=== PATIENT | male | born 1965 | race Caucasian/White ===

== ENCOUNTER 2021-06-25 17:48 | Emergency (ER) | payer MEDICARE, SELFPAY ==
--- NOTE | ~2021-06-25 | XR_ITS ---
EXAMINATION: XR CHEST CLINICAL INFORMATION: Chest pain and shortness of breath COMPARISON: None TECHNIQUE: Frontal view of the chest was obtained. FINDINGS: The lungs are well expanded. There is no focal consolidation, edema, or effusion. Bronchial wall thickening is present diffusely. No pneumothorax. The cardiomediastinal silhouette is within normal limits. No acute osseous abnormality. XR/XR chest 1V IMPRESSION: No dense consolidation. Bronchial wall thickening can be seen with a small airways process such as asthma or atypical/viral infection.
--- NOTE | 2021-06-25 18:04 | ECG_ITS ---
Test Reason : DIFFICUTY BREATHNG Blood Pressure : / mmHG Vent. Rate : 058 BPM Atrial Rate : 058 BPM P-R Int : 198 ms QRS Dur : 102 ms QT Int : 478 ms P-R-T Axes : 041 -17 039 degrees QTc Int : 469 ms Sinus bradycardia Otherwise normal ECG No previous ECGs available Referred By: Generic ED Physician Electronically Signed By:CARLOS ENRIQUE LAST
[2021-06-25 18:05] VITALS: BP 147/65; PULSE 59; RESP 16; TEMP 36.8; O2SAT 98; BMI 38.0
[2021-06-25 18:22] LABS: MANUAL DIFF FLAG NO
[2021-06-25 18:23] LABS: Basophils Percent Auto 0.4 % (0-2); Eosinophils Absolute Auto 0.3 X10*3/uL (0.0-0.4); Eosinophils Percent Auto 2.6 % (0-4); Hematocrit 35.1 % (42-52); Hemoglobin 11.6 g/dl (14.0-18.0); Imm Gran Abs Auto 0.05 X10*3/uL (0.00-0.03); Imm Gran Pct Auto 0.5 % (0.0-0.4); Lymphocytes Percent Auto 19.3 % (20-40); Mean Platelet Volume 10.1 fL (9.4-12.4); Monocytes Absolute Auto 0.7 X10*3/uL (0.1-1.2); Monocytes Percent Auto 6.5 % (2-11); Neutrophils Absolute Auto 7.4 X10*3/uL (2.0-8.3); Neutrophils Percent Auto 70.7 % (45-73); Platelet Count 108 X10*3/uL (160-400); Red Blood Count 3.62 X10*6/uL (4.60-5.80); Red Cell Distribution Width 16.5 % (11.0-16.0); White Blood Count 10.4 X10*3/uL (4.8-10.8)
[2021-06-25 18:36] LABS: COVID-19 Test Negative (Negative); IDNOW Serial# 9DD0AD1C
[2021-06-25 18:38] LABS: Anion Gap 13 (12-20); Blood Urea Nitrogen 5 mg/dL (9-16); Calcium 8.7 mg/dL (8.4-10.2); Carbon Dioxide 24 mmol/L (22-29); Chloride 105 mmol/L (96-108); Creatinine Clr Calc Pharmacy 122.9; Estimated Glomerular Filt Rate > 60; Glucose Random 93 mg/dL (60-115); Potassium 3.5 mmol/L (3.3-5.1); Sodium 138 mmol/L (135-145)
[2021-06-25 18:43] LABS: B Type Natriuretic Peptide 467 pg/mL (<100); Troponin-I High Sensitivity < 3.5 ng/L (<3.5-35.0)
== END 2021-06-25 20:00 | disposition left against medical advice (07) ==
PROVIDERS: Emergency Provider Emergency Medicine; PCP Internal Medicine
DX: R06.02 Shortness of breath (principal); Z20.822 Contact with and (suspected) exposure to COVID-19
CPT/HCPCS: 36415; 71045; 80048; 83880; 84484; 85025; 87635; 93005; 99282; 99283

== ENCOUNTER 2021-06-26 12:19 | Emergency (ER) | payer MEDICARE, SELFPAY ==
--- NOTE | ~2021-06-26 | XR_ITS ---
EXAMINATION: XR KNEE, LEFT CLINICAL INFORMATION: Status post fall. Left knee pain. COMPARISON: None TECHNIQUE: Four views of the left knee. FINDINGS: The bony alignments are intact. The cortices are intact. Articular margins, joint space appear normal. No joint effusion. Incidental note is made of Feathery periostitis seen only on the lateral projection projecting in the region of the upper posterior cortex of the likely tibia, of indeterminate etiology. XR/XR knee LT 4V IMPRESSION: 1. No radiographic evidence of acute osseous or articular abnormalities or any joint effusion. 2. Incidental note is made of Feathery periostitis along the posterior cortex of the upper likely left tibia, seen only on the lateral projection, of indeterminate etiology.
--- NOTE | ~2021-06-26 | CT_ITS ---
EXAMINATION: CT ABDOMEN AND PELVIS WITH CONTRAST CLINICAL INFORMATION: Abdominal distention COMPARISON: None TECHNIQUE: Multidetector volumetric images were obtained from the superior aspect of the liver through the pubic symphysis following administration 100 mL of Omnipaque 350 intravenous contrast. Sagittal and coronal reformatted images were obtained on the technologist's workstation. Oral contrast: No This CT examination was performed using dose optimization techniques as appropriate, variously including the following: *Automated exposure control *Adjustment of mA and/or kV according to patient size (this includes techniques or standardized protocols for targeted exams where dose is matched to indication/reason for exam; i.e. extremities or head) *Use of iterative reconstruction technique DLP: 510 mGy-cm FINDINGS: LUNG BASES: The visualized lung bases are unremarkable. LIVER, GALLBLADDER, AND BILIARY TREE: The liver is enlarged measuring 20.7 cm in greatest cephalocaudad dimension. There is associated ascites present in the abdomen and pelvis. No focal liver mass or bile duct dilatation is seen. The gallbladder is unremarkable with no evidence of radiopaque gallstones, gallbladder wall thickening, or obvious pericholecystic inflammatory changes. PANCREAS: Unremarkable. PERITONEUM AND OMENTUM: Small volume ascites is present around the liver and spleen as well as a small amount in the leaves of the mesentery. There are streaky inflammatory changes present in the region of the pipe hepatis and periceliac and SMA regions with thickening and stranding of the anterior pararenal fascia. SPLEEN: There is splenomegaly with spleen measuring 14.5 cm in greatest length. ADRENAL GLANDS: Unremarkable. KIDNEYS AND URETERS: The kidneys are normal in size, shape, and attenuation. No hydronephrosis, hydroureter, or calculi seen. No perinephric stranding. BLADDER: Unremarkable. GASTROINTESTINAL TRACT: Scattered colonic diverticula without diverticulitis. The small and large bowel are otherwise unremarkable. The appendix is unremarkable. ABDOMINAL WALL: No significant hernia is appreciated. LYMPH NODES: No retroperitoneal lymphadenopathy. VASCULAR: Calcific changes present in the aorta and iliac vessels. The portal venous system is patent as is the splenic vein. Large varices are not seen. PELVIC VISCERA: Prostate and seminal vesicles appear normal. OSSEOUS STRUCTURES: Degenerative changes present in the spine most marked in the lower thoracic region and at L5-S1. No bony destructive lesions seen. CT/CT abdomen pelvis w con IMPRESSION: Hepatosplenomegaly with ascites. This is most likely the cause of the patient's abdominal distention. Findings suggest cirrhosis with portal hypertension. Streaky inflammatory changes in the region of the pipe hepatis and periceliac and SMA region without an obvious cause. These could be reactive to the ascites or represent a mesenteric panniculitis. In any event, without adenopathy or a pancreatic mass, this is not a worrisome finding.
--- NOTE | ~2021-06-26 | CT_ITS ---
EXAMINATION: CT ANGIOGRAM OF THE CHEST WITH AND WITHOUT CONTRAST (CT PULMONARY ANGIOGRAM FOR PE) CLINICAL INFORMATION: Reason for Exam sob and abd distention hx of cancer ? pe COMPARISON: None TECHNIQUE: Prior to contrast administration, noncontrast localization images were obtained. Subsequently, multidetector volumetric imaging was performed from the thoracic inlet to below the diaphragms following the administration of 100 mL Omnipaque 350 intravenous contrast. No contrast reaction reported Sagittal, coronal, and MIP oblique sagittal reformatted images were obtained on the CT workstation, uploaded to PACS, and reviewed. This CT examination was performed using dose optimization techniques as appropriate, variously including the following: *Automated exposure control *Adjustment of mA and/or kV according to patient size (this includes techniques or standardized protocols for targeted exams where dose is matched to indication/reason for exam; i.e. extremities or head) *Use of iterative reconstruction technique Total exam dose-length product 510 mGy-cm FINDINGS: QUALITY OF STUDY/CONTRAST BOLUS: Suboptimal. The bolus is adequate, but there is considerable motion artifact present, especially at the lung bases. PULMONARY ARTERIES: No central or large segmental pulmonary emboli. THORACIC AORTA: No aneurysm or dissection. LUNG: No focal consolidation, nodules or masses. Scattered bullous changes are present suggesting some element of underlying COPD. PLEURA: No pleural effusion or pneumothorax. MEDIASTINUM: Normal heart size. No pericardial effusion. No hilar or mediastinal lymphadenopathy. No evidence of septal bowing or right heart strain. CHEST WALL/AXILLA: No axillary or internal mammary lymphadenopathy. OSSEOUS STRUCTURES: No acute or suspicious osseous abnormality. UPPER ABDOMEN: See report of abdominal CT performed same day. The liver appears mildly lobular but is enlarged. Findings at least raises the question of cirrhosis. A small amount of ascites is present around the liver. The spleen is enlarged.. No reflux of contrast into the hepatic veins to suggest elevated right heart pressures. CT/CT angio chest PE protocol IMPRESSION: No evidence of pulmonary emboli Scattered pulmonary bullous changes as described above Abdominal findings see report of abdominal CT same day. VTE: negative, but limited
[2021-06-26 14:19] VITALS: BP 149/74; PULSE 68; RESP 18; TEMP 37; O2SAT 94; BMI 42.5
--- NOTE | 2021-06-26 15:12 | ECG_ITS ---
Test Reason : SOB Blood Pressure : / mmHG Vent. Rate : 054 BPM Atrial Rate : 054 BPM P-R Int : 198 ms QRS Dur : 102 ms QT Int : 512 ms P-R-T Axes : 044 -23 030 degrees QTc Int : 485 ms Sinus bradycardia Prolonged QT Abnormal ECG When compared with ECG of 25-JUN-2021 17:54, No significant change was found Referred By: Gloria Vora Electronically Signed By:CARLOS ENRIQUE LAST
[2021-06-26 15:44] LABS: Basophils Percent Auto 0.5 % (0-2); Eosinophils Absolute Auto 0.1 X10*3/uL (0.0-0.4); Eosinophils Percent Auto 1.6 % (0-4); Hematocrit 36.5 % (42-52); Hemoglobin 11.9 g/dl (14.0-18.0); Imm Gran Abs Auto 0.02 X10*3/uL (0.00-0.03); Imm Gran Pct Auto 0.2 % (0.0-0.4); Lymphocytes Absolute Auto 1.6 X10*3/uL (1.2-4.9); Lymphocytes Percent Auto 19.2 % (20-40); MANUAL DIFF FLAG NO; Mean Corpuscular HGB Conc 32.6 g/dl (31.0-36.0); Mean Corpuscular Hemoglobin 31.8 pg (27.0-33.0); Mean Corpuscular Volume 97.6 fL (80-98); Mean Platelet Volume 9.9 fL (9.4-12.4); Monocytes Absolute Auto 0.6 X10*3/uL (0.1-1.2); Monocytes Percent Auto 6.6 % (2-11); Neutrophils Percent Auto 71.9 % (45-73); Platelet Count 101 X10*3/uL (160-400); Red Blood Count 3.74 X10*6/uL (4.60-5.80); Red Cell Distribution Width 16.9 % (11.0-16.0); White Blood Count 8.4 X10*3/uL (4.8-10.8)
--- NOTE | 2021-06-26 15:49 | ED_ITS ---
HPI - SOB/Dyspnea General Chief Complaint: Dyspnea <GENESIS Earl - Last Filed: 06/26/21 17:48> Stated Complaint: difficulty breathing <GENESIS Earl Last Filed: 06/26/21 17:48> Time Seen by Provider: 06/26/21 14:20 <GEENSIS Earl Last Filed: 06/26/21 17:48> Source: patient <GENESIS Earl Last Filed: 06/26/21 17:48> Mode of arrival: ambulatory <GENESIS Earl - Last Filed: 06/26/21 17:48> Limitations: no limitations <GENESIS Earl Last Filed: 06/26/21 17:48> History of Present Illness HPI Narrative: 56-year-old male with a past medical history of prostate cancer status post radiation finished on January [address] Gael Apple the urologist, hypertension, hyperlipidemia, anxiety, depression, cirrhosis and fatty liver presenting to the ED with complaints of dry cough with shortness of breath with associated dyspnea on exertion orthopnea for the past month progressively worsening. Reports associated weight gain since October 2020 of approximately 25-30 lb. Patient also reports left knee pain reports he fell a f ew days ago in his house due to he missed a step. He denied any other injuries related to this. He denies any dizziness, headaches, change in vision, nausea/vomiting, chest pain, paresthesias, palpitations, abdominal pain, lower extremity edema, calf tenderness, recent travel or sick contacts or any other symptoms complaints or concerns at this time. <GENESIS Earl - Last Filed: 06/26/21 17:48> MD elicited complaint: shortness of breath and cough <GENESIS Earl - Last Filed: 06/26/21 17:48> Pertinent past history: other (Prostate cancer status post radiation January/2021 finished radiation) <GENESIS Earl Last Filed: 06/26/21 17:48> Onset (ago): month(s) (1 month progressively worsening) <GENESIS Earl Last Filed: 06/26/21 17:48> Timing: constant and progressively worsening <GENESIS Earl Last Filed: 06/26/21 17:48> Severity: moderate <GENESIS Earl Last Filed: 06/26/21 17:48> Exacerbating factors: lying flat, exertion and coughing <GENESIS Earl Last Filed: 06/26/21 17:48> Relieving factors: rest and upright position <GENESIS Earl Last Filed: 06/26/21 17:48> Associated symptoms: denies other symptoms <GENESIS Earl Last Filed: 06/26/21 17:48> Treatment prior to arrival: none <GENESIS Earl Last Filed: 06/26/21 17:48> Related Data Home oxygen amount: none <GENESIS Earl Last Filed: 06/26/21 17:48> Allergies/Adverse Reactions: Allergies Allergy/AdvReac Type Severity Reaction Status Date / Time Fish Containing Products Allergy Severe THROAT Unverified 07/02/20 15:04 SWELLING peanut [Peanut] Allergy Severe THROAT Unverified 07/02/20 15:04 SWELLING <GENESIS Earl Last Filed: 06/26/21 17:48> Review of Systems Review of Systems: Constitutional : Positive weight gain of 25-30 lb since October 2020, No Weight loss, No Fever, No Chills, No Night Sweats, No Fatigue, NoMalaise ENT/Mouth : No Hearing loss, No Ear Pain, No Nasal Congestion, No Sinus Pain, No Hoarseness, No sore throat, No Rhinorrhea, No Swallowing Difficulty Eyes: No Eye Pain, No Swelling, No Redness, No Foreign Body, No Discharge, No Vision Changes Cardiovascular : Positive shortness of breath/dyspnea as a slade/orthopnea, No Chest Pain, No Edema, No extremity swelling, No Palpitations Respiratory : Positive Cough, No Sputum, No Wheezing, No Dyspnea Gastrointestinal : No Nausea, No Vomiting, No Diarrhea, No abdominal Pain, No Hematochezia, No Melena Genitourinary : No irregular bleeding, No Dysuria, No Urinary Frequency, No Hematuria,No Urinary Incontinence, No Urgency, No Flank Pain, No Urinary Flow Changes, NoHesitancy Musculoskeletal : Positive left knee joint pain, No Myalgias, No Joint Swelling Skin : No Skin Lesions, No rash Neuro : No Weakness, No Numbness, No Paresthesias, No Loss of Consciousness, NoDizziness, No Headache Psych : No Anxiety/Panic, No Depression, No SI/HI/AH/VH Heme/Lymph: No Bruising, No Bleeding,No Lymphadenopathy Endocrine : No Polyuria, No Polydipsia, No Temperature Intolerance <GENESIS Earl - Last Filed: 06/26/21 17:48> Yes all other systems are reviewed and are negative <GENESIS Earl - Last Filed: 06/26/21 17:48> [facility] Past Medical History Attestation statement: The following information was validated with the patient. <GENESIS Earl - Last Filed: 06/26/21 17:48> Medical History: Medical History Anxiety <GENESIS Earl - Last Filed: 06/26/21 17:48> Social History Social History: Social History Patient Tobacco Use Status: Current everyday Tobacco user Use of substances other than those prescribed or required for medical reasons: No Advance Directives: No Advance Directives Information Provided: No <GENESIS Earl - Last Filed: 06/26/21 17:48> Physical Exam Vital Signs: Vital Signs: Last Vital Signs Temp 98.6 F 06/26/21 14:19 Pulse 74 06/26/21 18:46 Resp 22 H 06/26/21 18:46 BP 142/76 H 06/26/21 18:46 Pulse Ox 94 06/26/21 18:46 Body Mass Index 42.5 vital signs have been reviewed as normal and appeared to be correct. Blood pressure hypertensive 149/74 Heart rate normal. Respiration rate normal. Temperature normal. Oxygen saturation normal. <GENESIS Earl - Last Filed: 06/26/21 17:48> Vital Signs: Last Vital Signs Temp 98.6 F 06/26/21 14:19 Pulse 74 06/26/21 18:46 Resp 22 H 06/26/21 18:46 BP 142/76 H 06/26/21 18:46 Pulse Ox 94 06/26/21 18:46 Body Mass Index 42.5 <MYAH Liu - Last Filed: 06/26/21 22:06> Appearance: Alert. Oriented X3. No acute distress. Head: Normal external exam. Normocephalic. Atraumatic. Eyes: PERRLA. EOMI. Conjunctiva and sclera normal. Eyelids normal. ENT: Pharynx normal. Uvula midline. Moist mucous membranes. No trismus noted. No drooling noted. No muffled voice noted. Neck: Normal inspection. Neck supple. FROM. No adenopathy. Thyroid Normal. No meningeal signs. No neck mass noted. CVS: Normal heart rate and rhythm. Heart sound normal. Pulses normal throughout. No murmurs/rales/gallops. Respiratory: No respiratory distress. Painless inspiration. Breath sounds normal. No wheezes/rales/rhonchi noted. Chest nontender. No accessory muscle usage noted or decreased air movement noted. Abdomen: Soft and nontender. Bowel sounds normal in all 4 quadrants. No distention noted. No organomegaly noted. No visible injury noted. Back: Full range of motion noted. No rashes/lesion/induration/fluctuance or signs of infection noted. Skin: Skin warm and dry. Normal skin color. Normal skin turgor. No rashes/le sions/lacerations noted. Extremities: Patient with tenderness palpation to left knee at the suprapa tellar aspect with ecchymosis noted. No obvious deformities noted. No ligamentous laxity noted. Patient has full range of motion of the left knee. No lower extremity edema. No calf tenderness is noted. Otherwise all other Extremities exhibit normal range of motion and nontender. Neuro: Oriented X 3. No motor deficit. No sensory deficit. Reflexes normal. Normal steady gait. No focal neuro deficits noted. Vascular: + radial pulses/+ 2 distal pedal pulses/+2 dorsalis pedis b/l. Normal cap refill. No cyanosis noted to upper extremity nails and lower extremity toes nails. <GENESIS Earl - Last Filed: 06/26/21 17:48> Course Course Course Narrative: 15:35pm - 56-year-old male with a past medical history of prostate cancer status post radiation finished on January [address] Gael Apple the urologist presenting to the ED with complaints of dry cough with shortness of breath with associated dyspnea on exertion orthopnea for the past month progressively worsening. Reports associated weight gain since October 2020 of approximately 25-30 lb. Also reports left knee pain after he had a mechanical fall at home a few days ago. Plan: Labs including D-dimer if elevated patient will have a CT of chest for PE, patient had an outpatient chest x-ray yesterday which revealed no dense consolidation. Bronchial wall thickening can be seen with small airway process such as asthma or atypical viral infection. Therefore no repeat x-ray indicated at this time. We will obtain a left knee x-ray, EKG then re-evaluate. <GENESIS Earl - Last Filed: 06/26/21 17:48> Reevaluation(s) Reevaluation #1: - labs return patient mild baseline anemia similar compared to prior. - platelet count 101 mildly decreased when compared to prior. - D-dimer elevated at 669. - total bilirubin 2.0. - AST 45. - alkaline phosphate 281. - BNP 440. - albumin 3.4. - otherwise all other labs are within normal limits. - COVID/RSV/flu swab negative. - x-ray of left knee revealed incidental note of Feathery periostitis along the posterior cortex of the upper likely left tibia only seen on lateral projection of indeterminate etiology otherwise no other acute processes were noted. - therefore due to elevated D-dimer will obtain a CT a of chest for PE and a CT scan abdomen pelvis with IV contrast to evaluate the patient's liver due to elevated liver enzymes then re-evaluate. <GENESIS Earl - Last Filed: 06/26/21 17:48> Time: 17:03 <GENESIS Earl - Last Filed: 06/26/21 17:48> Reevaluation #2: - patient apparently eloped per the nurse while he was awaiting CT scan abdomen pelvis with IV contrast and CT of chest for PE. <GENESIS Earl - Last Filed: 06/26/21 17:48> Time: 17:36 <GENESIS Earl - Last Filed: 06/26/21 17:48> Reevaluation #3: Direct bilirubin 1.1, awaiting to go for CT of abdomen and CT of the chest. Kidney functions are normal <MYAH Liu - Last Filed: 06/26/21 22:06> Additional Reevaluation(s): No acute abnormalities on CT scan, chronic changes, mild ascites surrounding the liver, liver cirrhosis. Patient will be sent home, he can take double dose of his diuretic for the next 3 days and call his PCP and his bin operator on Monday he. He is agreeable to this plan. Patient was instructed to stop drinking alcohol as well as not to take Tylenol and avoid any hepatotoxic medication <DINORAH Liu- - Last Filed: 06/26/21 22:06> MDM - SOB/Dyspnea Medical Records Attestation: I reviewed the patient's medical records. <GENESIS Earl - Last Filed: 06/26/21 17:48> Lab Data Attestation: I reviewed the patient's lab results. <GENESIS Earl - Last Filed: 06/26/21 17:48> Result diagrams: : 06/26/21 15:35 06/26/21 15:35 <GENESIS Earl - Last Filed: 06/26/21 17:48> Labs: Lab Results 06/26/21 06/26/21 06/26/21 Range/Units 15:35 15:35 15:35 WBC 8.4 (4.8-10.8) X10*3/uL RBC 3.74 L (4.60-5.80) X10*6/uL Hgb 11.9 L (14.0-18.0) g/dl Hct 36.5 L (42-52) % MCV 97.6 (80-98) fL MCH 31.8 (27.0-33.0) pg MCHC 32.6 (31.0-36.0) g/dl RDW 16.9 H (11.0-16.0) % Plt Count 101 L (160-400) X10*3/uL MPV 9.9 (9.4-12.4) fL Immature Gran % (Auto) 0.2 (0.0-0.4) % Neut % (Auto) 71.9 (45-73) % Lymph % (Auto) 19.2 L (20-40) % Thomas % (Auto) 6.6 (2-11) % Eos % (Auto) 1.6 (0-4) % Baso % (Auto) 0.5 (0-2) % Lymph # (Auto) 1.6 (1.2-4.9) X10*3/uL Thomas # (Auto) 0.6 (0.1-1.2) X10*3/uL Eos # (Auto) 0.1 (0.0-0.4) X10*3/uL Baso # (Auto) 0.0 (0.0-0.2) X10*3/uL Abs Immat Gran (auto) 0.02 (0.00-0.03) X10*3/uL Absolute Neuts (auto) 6.0 (2.0-8.3) X10*3/uL Absolute Nucleated RBC 0.000 (0.0-0.012) X10*3/uL Nucleated RBC % (auto) 0.0 (0.0-0.2) /100WBC PT 13.3 H (9.9-13.0) SEC INR 1.2 H (0.9-1.1) APTT 42.3 H (24.1-38.0) SEC D-Dimer 669 NG/ML Sodium 140 (135-145) mmol/L Potassium 4.0 (3.3-5.1) mmol/L Chloride 106 (96-108) mmol/L Carbon Dioxide 26 (22-29) mmol/L Anion Gap 12 (12-20) BUN 5 L (9-16) mg/dL Creatinine 0.88 (0.5-1.4) mg/dL Estim Creat Clear Calc 121.7 Estimated GFR > 60 Random Glucose 93 (60-115) mg/dL Calcium 8.9 (8.4-10.2) mg/dL Magnesium 2.1 (1.6-2.6) mg/dL Total Bilirubin 2.0 H (0.0-1.0) mg/dL Direct Bilirubin 1.1 H (0.0-0.5) mg/dL AST 45 H (5-37) U/L ALT 12 (0-40) U/L Alkaline Phosphatase 281 H (39-117) U/L Troponin I High Sens (<3.5-35.0) ng/L B-Natriuretic Peptide (<100) pg/mL Total Protein 7.2 (6.5-8.0) g/dL Albumin 3.4 L (3.5-5.0) g/dL Coronavirus (PCR) (Negative) Influenza Type A (PCR) (Negative) Influenza Type B (PCR) (Negative) RSV RNA Qual (PCR) (Negative) 06/26/21 06/26/21 Range/Units 15:35 15:35 WBC (4.8-10.8) X10*3/uL RBC (4.60-5.80) X10*6/uL Hgb (14.0-18.0) g/dl Hct (42-52) % MCV (80-98) fL MCH (27.0-33.0) pg MCHC (31.0-36.0) g/dl RDW (11.0-16.0) % Plt Count (160-400) X10*3/uL MPV (9.4-12.4) fL Immature Gran % (Auto) (0.0-0.4) % Neut % (Auto) (45-73) % Lymph % (Auto) (20-40) % Thomas % (Auto) (2-11) % Eos % (Auto) (0-4) % Baso % (Auto) (0-2) % Lymph # (Auto) (1.2-4.9) X10*3/uL Thomas # (Auto) (0.1-1.2) X10*3/uL Eos # (Auto) (0.0-0.4) X10*3/uL Baso # (Auto) (0.0-0.2) X10*3/uL Abs Immat Gran (auto) (0.00-0.03) X10*3/uL Absolute Neuts (auto) (2.0-8.3) X10*3/uL Absolute Nucleated RBC (0.0-0.012) X10*3/uL Nucleated RBC % (auto) (0.0-0.2) /100WBC PT (9.9-13.0) SEC INR (0.9-1.1) APTT (24.1-38.0) SEC D-Dimer NG/ML Sodium (135-145) mmol/L Potassium (3.3-5.1) mmol/L Chloride (96-108) mmol/L Carbon Dioxide (22-29) mmol/L Anion Gap (12-20) BUN (9-16) mg/dL Creatinine (0.5-1.4) mg/dL Estim Creat Clear Calc Estimated GFR Random Glucose (60-115) mg/dL Calcium (8.4-10.2) mg/dL Magnesium (1.6-2.6) mg/dL Total Bilirubin (0.0-1.0) mg/dL Direct Bilirubin (0.0-0.5) mg/dL AST (5-37) U/L ALT (0-40) U/L Alkaline Phosphatase (39-117) U/L Troponin I High Sens < 3.5 (<3.5-35.0) ng/L B-Natriuretic Peptide 448 H (<100) pg/mL Total Protein (6.5-8.0) g/dL Albumin (3.5-5.0) g/dL Coronavirus (PCR) NEGATIVE (Negative) Influenza Type A (PCR) NEGATIVE (Negative) Influenza Type B (PCR) NEGATIVE (Negative) RSV RNA Qual (PCR) NEGATIVE (Negative) <GENESIS Earl - Last Filed: 06/26/21 17:48> Lab Results 06/26/21 06/26/21 06/26/21 Range/Units 15:35 15:35 15:35 WBC 8.4 (4.8-10.8) X10*3/uL RBC 3.74 L (4.60-5.80) X10*6/uL Hgb 11.9 L (14.0-18.0) g/dl Hct 36.5 L (42-52) % MCV 97.6 (80-98) fL MCH 31.8 (27.0-33.0) pg MCHC 32.6 (31.0-36.0) g/dl RDW 16.9 H (11.0-16.0) % Plt Count 101 L (160-400) X10*3/uL MPV 9.9 (9.4-12.4) fL Immature Gran % (Auto) 0.2 (0.0-0.4) % Neut % (Auto) 71.9 (45-73) % Lymph % (Auto) 19.2 L (20-40) % Thomas % (Auto) 6.6 (2-11) % Eos % (Auto) 1.6 (0-4) % Baso % (Auto) 0.5 (0-2) % Lymph # (Auto) 1.6 (1.2-4.9) X10*3/uL Thomas # (Auto) 0.6 (0.1-1.2) X10*3/uL Eos # (Auto) 0.1 (0.0-0.4) X10*3/uL Baso # (Auto) 0.0 (0.0-0.2) X10*3/uL Abs Immat Gran (auto) 0.02 (0.00-0.03) X10*3/uL Absolute Neuts (auto) 6.0 (2.0-8.3) X10*3/uL Absolute Nucleated RBC 0.000 (0.0-0.012) X10*3/uL Nucleated RBC % (auto) 0.0 (0.0-0.2) /100WBC PT 13.3 H (9.9-13.0) SEC INR 1.2 H (0.9-1.1) APTT 42.3 H (24.1-38.0) SEC D-Dimer 669 NG/ML Sodium 140 (135-145) mmol/L Potassium 4.0 (3.3-5.1) mmol/L Chloride 106 (96-108) mmol/L Carbon Dioxide 26 (22-29) mmol/L Anion Gap 12 (12-20) BUN 5 L (9-16) mg/dL Creatinine 0.88 (0.5-1.4) mg/dL Estim Creat Clear Calc 121.7 Estimated GFR > 60 Random Glucose 93 (60-115) mg/dL Calcium 8.9 (8.4-10.2) mg/dL Magnesium 2.1 (1.6-2.6) mg/dL Total Bilirubin 2.0 H (0.0-1.0) mg/dL Direct Bilirubin 1.1 H (0.0-0.5) mg/dL AST 45 H (5-37) U/L ALT 12 (0-40) U/L Alkaline Phosphatase 281 H (39-117) U/L Troponin I High Sens (<3.5-35.0) ng/L B-Natriuretic Peptide (<100) pg/mL Total Protein 7.2 (6.5-8.0) g/dL Albumin 3.4 L (3.5-5.0) g/dL Coronavirus (PCR) (Negative) Influenza Type A (PCR) (Negative) Influenza Type B (PCR) (Negative) RSV RNA Qual (PCR) (Negative) 06/26/21 06/26/21 Range/Units 15:35 15:35 WBC (4.8-10.8) X10*3/uL RBC (4.60-5.80) X10*6/uL Hgb (14.0-18.0) g/dl Hct (42-52) % MCV (80-98) fL MCH (27.0-33.0) pg MCHC (31.0-36.0) g/dl RDW (11.0-16.0) % Plt Count (160-400) X10*3/uL MPV (9.4-12.4) fL Immature Gran % (Auto) (0.0-0.4) % Neut % (Auto) (45-73) % Lymph % (Auto) (20-40) % Thomas % (Auto) (2-11) % Eos % (Auto) (0-4) % Baso % (Auto) (0-2) % Lymph # (Auto) (1.2-4.9) X10*3/uL Thomas # (Auto) (0.1-1.2) X10*3/uL Eos # (Auto) (0.0-0.4) X10*3/uL Baso # (Auto) (0.0-0.2) X10*3/uL Abs Immat Gran (auto) (0.00-0.03) X10*3/uL Absolute Neuts (auto) (2.0-8.3) X10*3/uL Absolute Nucleated RBC (0.0-0.012) X10*3/uL Nucleated RBC % (auto) (0.0-0.2) /100WBC PT (9.9-13.0) SEC INR (0.9-1.1) APTT (24.1-38.0) SEC D-Dimer NG/ML Sodium (135-145) mmol/L Potassium (3.3-5.1) mmol/L Chloride (96-108) mmol/L Carbon Dioxide (22-29) mmol/L Anion Gap (12-20) BUN (9-16) mg/dL Creatinine (0.5-1.4) mg/dL Estim Creat Clear Calc Estimated GFR Random Glucose (60-115) mg/dL Calcium (8.4-10.2) mg/dL Magnesium (1.6-2.6) mg/dL Total Bilirubin (0.0-1.0) mg/dL Direct Bilirubin (0.0-0.5) mg/dL AST (5-37) U/L ALT (0-40) U/L Alkaline Phosphatase (39-117) U/L Troponin I High Sens < 3.5 (<3.5-35.0) ng/L B-Natriuretic Peptide 448 H (<100) pg/mL Total Protein (6.5-8.0) g/dL Albumin (3.5-5.0) g/dL Coronavirus (PCR) NEGATIVE (Negative) Influenza Type A (PCR) NEGATIVE (Negative) Influenza Type B (PCR) NEGATIVE (Negative) RSV RNA Qual (PCR) NEGATIVE (Negative) <Alice Newman, STRETCH MACHINE OPERATOR- - Last Filed: 06/26/21 22:06> Imaging Data Chest x-ray: Attestation: I personally reviewed and interpreted this imaging study as follows: <GENESIS Earl - Last Filed: 06/26/21 17:48> Radiologist's impression: FINDINGS: The lungs are well expanded. There is no focal consolidation, edema, or effusion. Bronchial wall thickening is present diffusely. No pneumothorax. The cardiomediastinal silhouette is within normal limits. No acute osseous abnormality. XR/XR chest 1V IMPRESSION: No dense consolidation. Bronchial wall thickening can be seen with a small airways process such as asthma or atypical/viral infection. <GENESIS Earl - Last Filed: 06/26/21 17:48> Left knee x-ray: Attestation: I personally reviewed and interpreted this imaging study as follows: <GENESIS Earl - Last Filed: 06/26/21 17:48> Radiologist's impression: FINDINGS: The bony alignments are intact. The cortices are intact. Articular margins, joint space appear normal. No joint effusion. Incidental note is made of Feathery periostitis seen only on the lateral projection projecting in the region of the upper posterior cortex of the likely tibia, of indeterminate etiology. XR/XR knee LT 4V IMPRESSION: ? 1. No radiographic evidence of acute osseous or articular abnormalities or any joint effusion. 2. Incidental note is made of Feathery periostitis along the posterior cortex of the upper likely left tibia, seen only on the lateral projection, of indeterminate etiology. <GENESIS Earl - Last Filed: 06/26/21 17:48> ECG Data Attestation: I personally reviewed and interpreted this ECG as follows: <GENESIS Earl Last Filed: 06/26/21 17:48> ECG interpretation date: 06/26/21 <GENESIS Earl - Last Filed: 06/26/21 17:48> ECG interpretation time: 15:26 <GENESIS aErl - Last Filed: 06/26/21 17:48> Interpretation: Sinus bradycardia with ventricular rate of 54 with a normal SD interval with a prolonged QT interval at 512 milliseconds otherwise no acute ischemic changes are noted. Similar when compared to prior EKG on 06/25/2021. <GENESIS Earl - Last Filed: 06/26/21 17:48> Discharge Plan Discharge Clinical Impression: Periostitis of lower leg, Shortness of breath, Cough Cirrhosis Qualifiers: Hepatic cirrhosis type: other cirrhosis Qualified Code(s): K74.69 - Other cirrhosis of liver <GENESIS Earl - Last Filed: 06/26/21 17:48> Patient Disposition: Home, Self-Care <GENESIS Earl - Last Filed: 06/26/21 17:48> Instructions: Cirrhosis (ED), Dyspnea (ED) <GENESIS Earl - Last Filed: 06/26/21 17:48> Additional Instructions: You were seen here today for shortness of breath cough. Year abdominal CT shows that you do have liver cirrhosis and there is mild fluid that surrounds your liver. Please follow-up you with you bin operator in 2-3 days. Please take double dose of your water pill for the next 3 days. Please call your bin operator on Monday. Please do not take Tylenol, do not drink alcohol. You may return to emergency department if your symptoms will get worse or if you experience any other concerning symptoms. <GENESIS Earl - Last Filed: 06/26/21 17:48> Referrals: Arben German MD [Primary Care Provider] - 2 days <GENESIS Earl - Last Filed: 06/26/21 17:48>
[2021-06-26 15:50] LABS: INTERNATIONAL NORM RATIO 1.2 (0.9-1.1); Prothrombin Time 13.3 SEC (9.9-13.0)
[2021-06-26 15:52] LABS: Partial Thromboplastin Time 42.3 SEC (24.1-38.0)
[2021-06-26 15:54] VITALS: BP 151/78; PULSE 54; RESP 18; O2SAT 94
[2021-06-26 16:00] LABS: Alanine Aminotransferase 12 U/L (0-40); Albumin Level 3.4 g/dL (3.5-5.0); Alkaline Phosphatase 281 U/L (39-117); Anion Gap 12 (12-20); Aspartate Amino Transferase 45 U/L (5-37); Blood Urea Nitrogen 5 mg/dL (9-16); Calcium 8.9 mg/dL (8.4-10.2); Carbon Dioxide 26 mmol/L (22-29); Chloride 106 mmol/L (96-108); Creatinine Clr Calc Pharmacy 121.7; Estimated Glomerular Filt Rate > 60; Glucose Random 93 mg/dL (60-115); Magnesium 2.1 mg/dL (1.6-2.6); Sodium 140 mmol/L (135-145); Total Protein 7.2 g/dL (6.5-8.0)
[2021-06-26 16:04] LABS: B Type Natriuretic Peptide 448 pg/mL (<100); Troponin-I High Sensitivity < 3.5 ng/L (<3.5-35.0)
[2021-06-26 16:15] LABS: D Dimer 669 NG/ML
[2021-06-26 16:36] LABS: Influenza A PCR NEGATIVE (Negative); Influenza B PCR NEGATIVE (Negative); Resp Syncy Virus RNA Qual PCR NEGATIVE (Negative); SARS COV2 PCR INHOUSE NEGATIVE (Negative)
[2021-06-26 18:16] LABS: Bilirubin Direct 1.1 mg/dL (0.0-0.5)
[2021-06-26 18:46] VITALS: BP 142/76; PULSE 74; RESP 22; O2SAT 94
--- NOTE | 2021-06-26 19:45 | PC.NURSE ---
pt called nurse into room. partner states that patient wants to leave, states taking too long for disposition. discussed that patient had left yesterday, only to return today, and would probably go home and return tomorrow as well. Pt agrees to stay for now.
[2021-06-26] MEDS: iohexoL 350 MG/ML 100 ML INFUS..BTL IV (20:12)
[2021-06-28 08:20] LABS: HBS Num1 129.66 mIU/mL (0-7.99); HBc Num1 0.13 S/CO (0.00-0.79); HBsAGNum1 0.26 S/CO (0.00-0.99); Hepatitis B Core Antibody Nonreactive (Nonreactive); Hepatitis B Surface Antigen Negative (Negative); ~HepC Num1 0.83 S/CO (0.00-0.79); ~Hepatitis B Surface Antibody REACTIVE (Nonreactive)
[2021-06-28 09:43] LABS: ~HepC Num2 0.95; ~HepC Num3 0.88; ~Hepatitis C Antibody GRAYZONE (Nonreactive)
[2021-07-02 08:03] LABS: Hepatitis A Antibody IgM 0.15 Index (0-0.79); ~Hepatitis A Antibody IgM Nonreactive (Nonreactive)
== END 2021-06-26 22:21 | disposition home or self-care (01) ==
PROVIDERS: Nurse Practitioner Family; Physician Assistant Medical; Emergency Provider Emergency Medicine; PCP Internal Medicine
DX: K74.69 Other cirrhosis of liver (principal); R06.00 Dyspnea, unspecified; R06.02 Shortness of breath; M25.562 Pain in left knee; Z20.822 Contact with and (suspected) exposure to COVID-19; I10 Essential (primary) hypertension; E78.5 Hyperlipidemia, unspecified; F41.9 Anxiety disorder, unspecified; Z85.46 Personal history of malignant neoplasm of prostate; K76.0 Fatty (change of) liver, not elsewhere classified; F17.210 Nicotine dependence, cigarettes, uncomplicated; Z92.3 Personal history of irradiation
CPT/HCPCS: 0241U; 36415; 71275; 73564; 74177; 80053; 82248; 83735; 83880; 84484; 85025; 85379; 85610; 85730; 86704; 86706; 86709; 86803; 87340; 93005; 99284; Q9967

== ENCOUNTER 2021-11-11 10:43 | Inpatient (IN) | payer MEDICARE, SELFPAY ==
--- NOTE | ~2021-11-11 | US_ITS ---
EXAMINATION: US ABDOMEN LIMITED CLINICAL INFORMATION: Cirrhosis. Assess for ascites. COMPARISON: Previous CT of the abdomen and pelvis June 2021. TECHNIQUE: Real-time imaging of the right upper quadrant abdominal viscera. Liver Doppler exam including waveform spectral analysis of the portal and hepatic veins and hepatic artery. FINDINGS: PANCREAS: Not well visualized. LIVER: Echotexture is increased and heterogeneous suggestive of hepatocellular disease. The contour of the liver is scalloped suggestive of cirrhosis. No focal liver lesion is appreciated. There is no intrahepatic biliary duct dilatation. GALLBLADDER: There is echogenic material in the gallbladder probably representing sludge. The gallbladder is normal in size. The gallbladder wall does not appear thickened. COMMON BILE DUCT: Not well visualized. The visualized common bile duct is normal in caliber measuring 0.2 cm in diameter. RIGHT KIDNEY: Normal. No hydronephrosis. No renal calculi or focal parenchymal lesions. The kidney measures 10.7 cm in maximum dimension. FREE FLUID: There is a large amount of ascites. Abdominal Doppler exam is limited. There is bidirectional but predominantly reversed hepatofugal flow seen in the extrahepatic portal vein, the main portal vein and the left portal vein. Flow in the right portal vein is difficult to determine. The hepatic veins appear patent with normal flow. The IVC appears patent with normal flow. The vein right left hepatic arteries are patent. There is slight increased peak systolic velocity measuring 153 cm/s. The spleen is enlarged measuring 16.5 cm in length. Flow is seen in the left splenic hilum only. There are varices. US/US duplex arterial venous comp IMPRESSION: Cirrhotic appearing liver, splenomegaly, varices and large amount of ascites. Limited Doppler exam. Portal flow is difficult to evaluate. There appears to be bidirectional flow/predominantly reversed flow in the main and left portal veins. Flow in the right portal vein is difficult to determine. The hepatic veins and IVC are patent.
--- NOTE | ~2021-11-11 | US_ITS ---
EXAMINATION: ABDOMINAL ULTRASOUND WITH DOPPLER CLINICAL INFORMATION: Assess patency of hepatic veins and portal veins COMPARISON: Ultrasound study yesterday, CT angiogram chest 06/26/2021 TECHNIQUE: Ultrasound of the portal venous system and hepatic veins was performed with color flow Doppler imaging FINDINGS: The main portal vein as well as the left and right are all patent. There is reversal of flow in the portal venous system with hepatofugal flow seen throughout. The middle, left and right hepatic veins are all patent with normal directional flow into the IVC. US/US duplex arterial venous comp IMPRESSION: No evidence of portal venous thrombosis. The portal venous system is patent but with reversed hepatofugal flow throughout. The hepatic veins appear normal.
--- NOTE | ~2021-11-11 | US_ITS ---
EXAMINATION: US-GUIDED PARACENTESIS CLINICAL INFORMATION: Large volume of ascites. Consent for SBP. COMPARISON: None TECHNIQUE: Following explaining ultrasound-guided paracentesis procedure, benefits and risk, a written consent was obtained. Patient was placed supine on fluoroscopy table and preliminary ultrasound imaging was obtained. An optimal site was selected along the left lower quadrant and marked. The marked site was cleaned and draped in the usual sterile manner with 2% chlorhexidine solution. 1% lidocaine was injected at the puncture site. Through a small skin incision, a 5 [place] long DVS Intelestream catheter was inserted into the peritoneal space. After observing fluid return, stylet was withdrawn and catheter connected to vacuum bottle via connecting cannula. After obtaining all fluid and observing normal fluid return, catheter was withdrawn and complete hemostasis achieved at puncture site. Sterile Band-Aid applied postprocedure. Patient tolerated procedure extremely well. FINDINGS: On preliminary ultrasound imaging, there is a large amount of ascites. Approximately 11.3 L of clear yellowish dark fluid was drained from the left lower quadrant. Part of this fluid was sent to lab for cell count, culture with Gram stain. US/US paracentesis abd w/image IMPRESSION: Successful ultrasound-guided paracentesis performed with approximately 11.3 L of clear yellowish fluid drained from the left lower quadrant.
--- NOTE | ~2021-11-11 | CT_ITS ---
EXAMINATION: CT ABDOMEN AND PELVIS WITH CONTRAST CLINICAL INFORMATION: Abdominal pain. COMPARISON: None TECHNIQUE: Multidetector volumetric images were obtained from the superior aspect of the liver through the pubic symphysis following administration 85 mL of Omnipaque 350 intravenous contrast. Sagittal and coronal reformatted images were obtained on the technologist's workstation. Oral contrast: No This CT examination was performed using dose optimization techniques as appropriate, variously including the following: *Automated exposure control *Adjustment of mA and/or kV according to patient size (this includes techniques or standardized protocols for targeted exams where dose is matched to indication/reason for exam; i.e. extremities or head) *Use of iterative reconstruction technique DLP: 921 mGy-cm FINDINGS: LUNG BASES: Lung bases are clear. The heart size is normal. LIVER, GALLBLADDER, AND BILIARY TREE: The liver is an enlarged in size measuring 17.7 cm in length, the liver has slightly lobulated contour but homogeneous in hypodensity. There is moderate perihepatic ascites. The gallbladder is unremarkable with no evidence of radiopaque gallstones, gallbladder wall thickening, or obvious pericholecystic inflammatory changes. PANCREAS: Unremarkable. SPLEEN: The spleen is enlarged measuring 16 cm in length.. ADRENAL GLANDS: Unremarkable. KIDNEYS AND URETERS: The kidneys are normal in size, shape, and attenuation. No hydronephrosis, hydroureter, or calculi seen. No perinephric stranding. BLADDER: The bladder is empty. GASTROINTESTINAL TRACT: Scattered old contrast is seen throughout the colon without any distention. There is nonspecific mural thickening of the colon likely secondary to underdistention. The small bowel loops are normal caliber. Appendix is not visualized. There is a large amount of free fluid. The stomach is nondistended and appears unremarkable.. ABDOMINAL WALL: No significant hernia is appreciated. LYMPH NODES: Normal. VASCULAR: Prominent vessels are seen within the gastric splenic ligament. PELVIC VISCERA: There are surgical katerine in a nonenlarged prostate gland. No abnormal lymph nodes. OSSEOUS STRUCTURES: There are degenerative disc changes with ventral spondylosis at L5-S1 disc level. There is mild ventral spondylosis throughout lumbar spine and lower dorsal spine. CT/CT abdomen pelvis w con IMPRESSION: Hepatosplenomegaly with cirrhosis and large ascites. Mild mural thickening of the colon without distention. The mucosal thickening is likely secondary to underdistention. Fleischner guidelines were followed.
--- NOTE | 2021-11-11 10:46 | ECG_ITS ---
Test Reason : AMS Blood Pressure : / mmHG Vent. Rate : 064 BPM Atrial Rate : 064 BPM P-R Int : 198 ms QRS Dur : 106 ms QT Int : 426 ms P-R-T Axes : 039 -14 027 degrees QTc Int : 439 ms Normal sinus rhythm Nonspecific T wave abnormality Abnormal ECG When compared with ECG of 26-JUN-2021 15:26, Nonspecific T wave abnormality, worse in Inferior leads Nonspecific T wave abnormality now evident in Anterolateral leads Referred By: Yoanna Hawkins Electronically Signed By:ELIECER RAWLS MD
[2021-11-11 10:54] VITALS: BP 121/64; BP 90/51; PULSE 60; PULSE 64; RESP 16; O2SAT 95; BMI 36.6
--- NOTE | 2021-11-11 11:02 | ED_ITS ---
HPI - Altered Mental Status General Chief Complaint: Altered Mental Status Stated Complaint: ASCITES,WEIGHT GAIN,AMS Time Seen by Provider: 11/11/21 10:45 Source: patient, EMS, RN notes reviewed and old records reviewed Mode of arrival: EMS Limitations: altered mental status History of Present Illness HPI narrative: 56-year-old male with a history of decompensated liver cirrhosis with recurrent large volume ascites requiring paracentesis, HTN, HLD, prostate cancer status post radiation, anxiety/depression who presents to the ER via EMS from his PCP office with reports of altered mental status, 10 lb weight gain and increased abdominal distention. Unclear timeline of the weight gain. He is a poor historian due to AMS. Per report patient last had a large volume paracentesis done 1 week ago but does not know where or how much. He reports increased abd distention from his baseline. Denies SOB or chest pain. Unclear if he has been compliant with his spironolactone and lactulose. He is a former drinker. MD complaint: altered mental status Onset (ago): unknown Timing confirmed by: caregiver Severity: moderate Context: liver disease Associated symptoms: loss of appetite and malaise Related Data Home Medications Medication Instructions Recorded Confirmed gabapentin 400 mg capsule 400 mg PO TID 11/11/21 11/11/21 lactulose 10 gram/15 mL oral 30 ml PO TID 11/11/21 11/11/21 solution (Constulose) lorazepam 1 mg tablet (Ativan) 4 tab PO DAILY 11/11/21 11/11/21 pantoprazole 40 mg tablet,delayed 1 tab PO DAILY 11/11/21 11/11/21 release pravastatin 20 mg tablet 1 tab PO BEDTIME 11/11/21 11/11/21 propranolol 10 mg tablet 1 tab PO TID 11/11/21 11/11/21 risperidone 0.5 mg tablet 1 tab PO BEDTIME 11/11/21 11/11/21 spironolactone 25 mg tablet 2 tab PO DAILY 11/11/21 11/11/21 topiramate 200 mg tablet (Topamax) 1 tab PO BID 11/11/21 11/11/21 zolpidem 10 mg tablet (Ambien) 1 tab PO BEDTIME 11/11/21 11/11/21 Allergies Allergy/AdvReac Type Severity Reaction Status Date / Time Fish Containing Allergy Severe THROAT Unverified 07/02/20 15:04 Products SWELLING peanut [Peanut] Allergy Severe THROAT Unverified 07/02/20 15:04 SWELLING Review of Systems Verdana 4l Review of Systems: Verdana 4d Verdana 4d Constitutional: No Fever, No Chills ENT/Mouth: No sore throat, No Rhinorrhea, No Swallowing Difficulty Cardiovascular: No Chest Pain, No SOB, No Orthopnea, + Edema Respiratory: No Cough, No Sputum, No Wheezing, No dyspnea GastrointestinalGastrointestinal: No Nausea, No Vomiting, No Diarrhea, + abdominal Pain, +Abdominal distention, No Hematochezia, No Melena Genitourinary: No Dysuria, No Urinary Frequency, No Hematuria Musculoskeletal: No joint pain, No Myalgias Skin: No Skin Lesions, No rash Neuro: + Weakness, No Numbness, No Dizziness, No Headache Psych: No Anxiety/Panic, No Depression Heme/Lymph: No Bruising, No Lymphadenopathy Endocrine: No Polyuria, No Polydipsia PMFSH Past Medical History Medical History Anxiety Social History Social History Patient Tobacco Use Status: Current everyday Tobacco user Advance Directives: Yes Advance Directives on File: Yes Advance Directives Date on File: 11/11/21 Physical Exam Verdana 4l Vital Signs: Verdana 4d Verdana 4d Vital Signs: Verdana 4d Verdana 4Bd Last Vital Signs Verdana 4d Multiplex Operator New 4d Multiplex Operator New 4d Pulse 68 11/11/21 14:58 Multiplex Operator New 4d Resp 16 11/11/21 14:58 Multiplex Operator New 4d BP 117/63 11/11/21 14:58 Pulse Ox 95 11/11/21 14:58 BMI result Body Mass Index 36.6 Appearance: Jaundiced male appears older than stated age, slightly lethargic Eyes: Pupils equal, round and reactive to light. Scleral icterus. ENT: Pharynx normal. Neck: Normal inspection. Neck supple. CVS: Normal heart rate and rhythm. Pulses normal. Respiratory: No respiratory distress. Breath sounds diminished at the bases with poor inspiratory effort. Abdomen: Rotund, disteneded and somewhat firm. +BS x4 Skin: Skin warm and dry. Skin color jaundiced Normal skin turgor. No rashes. Extremities: 2+ pitting lower extremity edema up to the hips and low back. left hip with ecchymosis, nontender Neuro: Oriented X 2. Lethargic, answers Y/N questions, globally weak, nonfocal. Course Course Course Narrative: 56 y/o male with history of liver cirrhosis w/ ascites, HTN, HLD, depression/anxiety presenting from PCP office with AMS, jaundice, weight gain and increased abdominal distention. He is lethargic and confused. Concern for he patic encephalopathy. Will check ammonia, coags, metabolic workup and get RUQ U/S w/ doppler. Unclear if he is compliant with his meds and when the last time he had is abdomen tapped. He is hemodynamically stable and afebrile on arrival. Reevaluation(s) Reevaluation #1: WBC 15.9 - possible ?SBP. Will cover with Rocephin. Lactic acid normal. Hold off on IVF for now as he will likely 3rd space then given liver disease. Ammonia 53 which is upper limit or normal, given AMS will give trial of PO lactulose. Other labs clotted - will repeat. Reevaluation #2: LFTs are up from prior - bili 5.1/D bili 3.7 (2.0/1.1), AST/ALT 60/19 (45/12), ALP 306 (281), with lipase of 157. Albumin 2.8. Sodium 129 due to volume overload. RUQ U/S showing large volume ascites w/ cirrhotic liver. Doppler portion is limited with right portal vein flow difficult to determine. may need to repeat U/S once abd is decompressed with therapeutic paracentesis vs CT abd wtih contrast for further evaluation to rule out clot. IR consult ordered. Patient will require admission. Dr. Rosenberg at the bedside to evaluate - recommending IV lasix now with plan for tap tomorrow. MDM - Altered Mental Status Medical Records Attestation: I reviewed the patient's medical records. Lab Data Attestation: I reviewed the patient's lab results. Result diagrams: 11/11/21 11:24 11/11/21 12:44 Labs: Lab Results 11/11/21 11/11/21 11/11/21 Range/Units 11:24 11:24 11:24 WBC 15.9 H (4.8-10.8) X10*3/uL RBC 3.54 L (4.60-5.80) X10*6/uL Hgb 11.0 L (14.0-18.0) g/dl Hct 33.5 L (42.0-52.0) % MCV 94.6 (80.0-98.0) fL MCH 31.1 (27.0-33.0) pg MCHC 32.8 (31.0-36.0) g/dl RDW 15.9 (11.0-16.0) % Plt Count 202 (160-400) X10*3/uL MPV 10.6 (9.4-12.4) fL Immature Gran % (Auto) 0.4 (0.0-0.4) % Neut % (Auto) 72.5 (45-73) % Lymph % (Auto) 16.2 L (20-40) % [place] % (Auto) 8.0 (2-11) % Eos % (Auto) 2.5 (0-4) % Baso % (Auto) 0.4 (0-2) % Lymph # (Auto) 2.6 (1.2-4.9) X10*3/uL [place] # (Auto) 1.3 H (0.1-1.2) X10*3/uL Eos # (Auto) 0.4 (0.0-0.4) X10*3/uL Baso # (Auto) 0.1 (0.0-0.2) X10*3/uL Abs Immat Gran (auto) 0.07 H (0.00-0.03) X10*3/uL Absolute Neuts (auto) 11.5 H (2.0-8.3) x10*3/uL Absolute Nucleated RBC 0.000 (0.0-0.012) X10*3/uL Nucleated RBC % (auto) 0.0 (0.0-0.2) /100WBC PT (9.9-13.0) SEC INR (0.9-1.1) APTT (24.1-38.0) SEC Sodium (135-145) mmol/L Potassium (3.3-5.1) mmol/L Chloride (96-108) mmol/L Carbon Dioxide (22-29) mmol/L Anion Gap (12-20) BUN (9-16) mg/dL Creatinine (0.5-1.4) mg/dL Estim Creat Clear Calc Estimated GFR Random Glucose (60-115) mg/dL Lactic Acid 1.4 (0.5-2.0) mmol/L Calcium (8.4-10.2) mg/dL Magnesium (1.6-2.6) mg/dL Total Bilirubin (0.0-1.0) mg/dL Direct Bilirubin (0.0-0.5) mg/dL AST (5-37) U/L ALT (0-40) U/L Alkaline Phosphatase (39-117) U/L Ammonia (13-55) umol/L B-Natriuretic Peptide 113 H (<100) pg/mL Total Protein (6.5-8.0) g/dL Albumin (3.5-5.0) g/dL Lipase (8-78) U/L Ethyl Alcohol mg/dL COVID-19 ([facility]) (Negative) COVID-19 Clin Com 11/11/21 11/11/21 11/11/21 Range/Units 11:24 12:44 12:44 WBC (4.8-10.8) X10*3/uL RBC (4.60-5.80) X10*6/uL Hgb (14.0-18.0) g/dl Hct (42.0-52.0) % MCV (80.0-98.0) fL MCH (27.0-33.0) pg MCHC (31.0-36.0) g/dl RDW (11.0-16.0) % Plt Count (160-400) X10*3/uL MPV (9.4-12.4) fL Immature Gran % (Auto) (0.0-0.4) % Neut % (Auto) (45-73) % Lymph % (Auto) (20-40) % [place] % (Auto) (2-11) % Eos % (Auto) (0-4) % Baso % (Auto) (0-2) % Lymph # (Auto) (1.2-4.9) X10*3/uL [place] # (Auto) (0.1-1.2) X10*3/uL Eos # (Auto) (0.0-0.4) X10*3/uL Baso # (Auto) (0.0-0.2) X10*3/uL Abs Immat Gran (auto) (0.00-0.03) X10*3/uL Absolute Neuts (auto) (2.0-8.3) x10*3/uL Absolute Nucleated RBC (0.0-0.012) X10*3/uL Nucleated RBC % (auto) (0.0-0.2) /100WBC PT 15.3 H (9.9-13.0) SEC INR 1.3 H (0.9-1.1) APTT 41.3 H (24.1-38.0) SEC Sodium 129 L (135-145) mmol/L Potassium 4.2 (3.3-5.1) mmol/L Chloride 99 (96-108) mmol/L Carbon Dioxide 23 (22-29) mmol/L Anion Gap 11 L (12-20) BUN 18 H (9-16) mg/dL Creatinine 1.06 (0.5-1.4) mg/dL Estim Creat Clear Calc 96.3 Estimated GFR > 60 Random Glucose 106 (60-115) mg/dL Lactic Acid (0.5-2.0) mmol/L Calcium 8.5 (8.4-10.2) mg/dL Magnesium 2.5 (1.6-2.6) mg/dL Total Bilirubin 5.1 H (0.0-1.0) mg/dL Direct Bilirubin 3.7 H (0.0-0.5) mg/dL AST 60 H (5-37) U/L ALT 19 (0-40) U/L Alkaline Phosphatase 306 H (39-117) U/L Ammonia 53 (13-55) umol/L B-Natriuretic Peptide (<100) pg/mL Total Protein 7.1 (6.5-8.0) g/dL Albumin 2.8 L (3.5-5.0) g/dL Lipase 157 H (8-78) U/L Ethyl Alcohol mg/dL COVID-19 ([facility]) (Negative) COVID-19 Clin Com 11/11/21 11/11/21 Range/Units 12:44 12:44 WBC (4.8-10.8) X10*3/uL RBC (4.60-5.80) X10*6/uL Hgb (14.0-18.0) g/dl Hct (42.0-52.0) % MCV (80.0-98.0) fL MCH (27.0-33.0) pg MCHC (31.0-36.0) g/dl RDW (11.0-16.0) % Plt Count (160-400) X10*3/uL MPV (9.4-12.4) fL Immature Gran % (Auto) (0.0-0.4) % Neut % (Auto) (45-73) % Lymph % (Auto) (20-40) % [place] % (Auto) (2-11) % Eos % (Auto) (0-4) % Baso % (Auto) (0-2) % Lymph # (Auto) (1.2-4.9) X10*3/uL [place] # (Auto) (0.1-1.2) X10*3/uL Eos # (Auto) (0.0-0.4) X10*3/uL Baso # (Auto) (0.0-0.2) X10*3/uL Abs Immat Gran (auto) (0.00-0.03) X10*3/uL Absolute Neuts (auto) (2.0-8.3) x10*3/uL Absolute Nucleated RBC (0.0-0.012) X10*3/uL Nucleated RBC % (auto) (0.0-0.2) /100WBC PT (9.9-13.0) SEC INR (0.9-1.1) APTT (24.1-38.0) SEC Sodium (135-145) mmol/L Potassium (3.3-5.1) mmol/L Chloride (96-108) mmol/L Carbon Dioxide (22-29) mmol/L Anion Gap (12-20) BUN (9-16) mg/dL Creatinine (0.5-1.4) mg/dL Estim Creat Clear Calc Estimated GFR Random Glucose (60-115) mg/dL Lactic Acid (0.5-2.0) mmol/L Calcium (8.4-10.2) mg/dL Magnesium (1.6-2.6) mg/dL Total Bilirubin (0.0-1.0) mg/dL Direct Bilirubin (0.0-0.5) mg/dL AST (5-37) U/L ALT (0-40) U/L Alkaline Phosphatase (39-117) U/L Ammonia (13-55) umol/L B-Natriuretic Peptide (<100) pg/mL Total Protein (6.5-8.0) g/dL Albumin (3.5-5.0) g/dL Lipase (8-78) U/L Ethyl Alcohol < 10 mg/dL COVID-19 ([facility]) Negative (Negative) COVID-19 Clin Com See Note ECG Data ECG #1: Attestation: I personally reviewed and interpreted this ECG as follows: ECG interpretation date: 11/11/21 ECG interpretation time: 13:05 Prior ECG tracings: available for review Interpretation: Normal sinus rhythm, ventricular rate 64 beats per minute, normal MI interval, normal QTC, no ST segment elevations or depressions. Critical Care Time Critical Care Time Critical Care Time: Yes Total Critical Care Time: 42 Attestation: I have personally provided critical care time exclusive of time spent on separately billable procedures. Time includes review of lab data, radiology results, discussion with consultants, and monitoring for potential decompensation. Intervention performed as documented. Discharge Plan Discharge Clinical Impression: Acute metabolic encephalopathy, Decompensation of cirrhosis of liver, Anasarca Patient Disposition: Admitted As Inpatient
[2021-11-11 11:33] LABS: MANUAL DIFF FLAG NO
[2021-11-11 11:38] LABS: Basophils Absolute Auto 0.1 X10*3/uL (0.0-0.2); Basophils Percent Auto 0.4 % (0-2); Eosinophils Absolute Auto 0.4 X10*3/uL (0.0-0.4); Eosinophils Percent Auto 2.5 % (0-4); Hematocrit 33.5 % (42.0-52.0); Imm Gran Abs Auto 0.07 X10*3/uL (0.00-0.03); Imm Gran Pct Auto 0.4 % (0.0-0.4); Lymphocytes Absolute Auto 2.6 X10*3/uL (1.2-4.9); Lymphocytes Percent Auto 16.2 % (20-40); Mean Corpuscular HGB Conc 32.8 g/dl (31.0-36.0); Mean Corpuscular Hemoglobin 31.1 pg (27.0-33.0); Mean Corpuscular Volume 94.6 fL (80.0-98.0); Mean Platelet Volume 10.6 fL (9.4-12.4); Monocytes Absolute Auto 1.3 X10*3/uL (0.1-1.2); Neutrophils Absolute Auto 11.5 x10*3/uL (2.0-8.3); Neutrophils Percent Auto 72.5 % (45-73); Platelet Count 202 X10*3/uL (160-400); Red Blood Count 3.54 X10*6/uL (4.60-5.80); Red Cell Distribution Width 15.9 % (11.0-16.0); White Blood Count 15.9 X10*3/uL (4.8-10.8)
[2021-11-11 11:43] LABS: Ammonia 53 umol/L (13-55)
[2021-11-11 11:47] LABS: Lactic Acid 1.4 mmol/L (0.5-2.0)
[2021-11-11 12:00] LABS: B Type Natriuretic Peptide 113 pg/mL (<100)
[2021-11-11 12:58] LABS: INTERNATIONAL NORM RATIO 1.3 (0.9-1.1); Prothrombin Time 15.3 SEC (9.9-13.0)
[2021-11-11] MEDS: cefTRIAXone sodium 1 GM in 0.9 % Sodium Chloride 50 ML IV (12:58)
--- NOTE | 2021-11-11 12:59 | PC.NURSE ---
lg bruise on left hip area. pt reports fall several days ago.
[2021-11-11 13:00] VITALS: BP 112/66; PULSE 66; RESP 16; O2SAT 94
[2021-11-11 13:00] LABS: Partial Thromboplastin Time 41.3 SEC (24.1-38.0)
[2021-11-11 13:06] LABS: Ethanol < 10 mg/dL
[2021-11-11 13:09] LABS: Alanine Aminotransferase 19 U/L (0-40); Albumin Level 2.8 g/dL (3.5-5.0); Alkaline Phosphatase 306 U/L (39-117); Anion Gap 11 (12-20); Aspartate Amino Transferase 60 U/L (5-37); Bilirubin Direct 3.7 mg/dL (0.0-0.5); Bilirubin Total 5.1 mg/dL (0.0-1.0); Blood Urea Nitrogen 18 mg/dL (9-16); Calcium 8.5 mg/dL (8.4-10.2); Carbon Dioxide 23 mmol/L (22-29); Chloride 99 mmol/L (96-108); Creatinine Clr Calc Pharmacy 96.3; Estimated Glomerular Filt Rate > 60; Glucose Random 106 mg/dL (60-115); Lipase 157 U/L (8-78); Magnesium 2.5 mg/dL (1.6-2.6); Potassium 4.2 mmol/L (3.3-5.1); Sodium 129 mmol/L (135-145); Total Protein 7.1 g/dL (6.5-8.0)
[2021-11-11 13:12] LABS: COVID-19 Test Negative (Negative)
[2021-11-11 14:58] VITALS: BP 117/63; PULSE 68; RESP 16; O2SAT 95
--- NOTE | 2021-11-11 14:59 | PC.NURSE ---
pt is more alert this afternoon. pt is being admitted for ascites and liver failure
[2021-11-11] MEDS: Lactulose 20 GM/30 ML SOLUTION 30 GM PO ×2 (15:13→22:08)
[2021-11-11] MEDS: Albumin Human 25 % 100 ML IV ×2 (15:15→16:33)
--- NOTE | 2021-11-11 15:19 | PHA.MEDREC ---
Pharmacy Consult ? Medication Reconciliation Pharmacy has completed the medication reconciliation. Patient's kika handles meds and is adament he takes them everyday. She reports he is still taking the gabapentin TID and he takes all four lorazepam at once in the am
[2021-11-11] MEDS: Furosemide 40 MG/4 ML VIAL IVPUSH (15:21)
--- NOTE | 2021-11-11 16:04 | P.HPHOSP_ITS ---
History of Present Illness Date of Service: 11/11/21 Chief Complaint: decompensated liver disease 56-year-old male with significant alcohol abuse history in the past, quit alcohol 1 month ago, htn , hlp , cirrosis suspected probable alcohol related , prostate cancer hx s/p radiation 1 year ago , anxiety , depression( from old ed chart review): patient is currently somewhat confused and could not able to give much history -history was taken by ED physician, patient's girlfriend, and previous ED chart review: as per his girlfriend and As per ED physician: patient was getting swelling progressively from last 2-3 week, weight gain, poor appetite. he was sent to see his PCP today from where patient was sent to the ED for evaluation for ascites as well as significant body swelling. Patient is otherwise awake alert but slow in responses -denies any chest pain or shortness of breath or abdominal pain or nausea or vomiting though says that his belly is little tense because of significant fluid. Denies any fever or chills generalized weak denies any blood in the stool he said he was using alcohol heavily since the age of 25-his favorite Flavors were alcohol vodka and beers. quit alcohol 1 month ago he still smokes 1 pack in for 5 days denies any recreational drug use he fell down 2 weeks back when he tripped in his bathroom has a bruise on the left upper leg. lab imaging reviewed: WBC count is 15.9 BUN 18 creatinine 1.06 mild hyponatremia 129 bilirubin is in 5 range usually run around 2 aS T and a alk-phos is mildly elevated from baseline abd: US/US abdomen limited IMPRESSION: Cirrhotic appearing liver, splenomegaly, varices and large amount of ascites. Limited Doppler exam. Portal flow is difficult to evaluate. There appears to be bidirectional flow/predominantly reversed flow in the main and left portal veins. Flow in the right portal vein is difficult to determine. The hepatic veins and IVC are patent Review of Systems Verdana 4l Review of Systems: Verdana 4d Verdana 4d as above. Verdana 4d [facility] Medical History Anxiety Pertinent family history: none except patient's multiple cousins are heavy alcohol drinker. Social History Patient Tobacco Use Status: Current everyday Tobacco user Advance Directives: Yes Advance Directives on File: Yes Advance Directives Date on File: 11/11/21 Meds Allergies Allergy/AdvReac Type Severity Reaction Status Date / Time Fish Containing Allergy Severe THROAT Unverified 07/02/20 15:04 Products SWELLING peanut [Peanut] Allergy Severe THROAT Unverified 07/02/20 15:04 SWELLING Active Medications: Current Medications Furosemide (Furosemide 20 Mg/2 Ml Vial) 20 mg IVPUSH BID [facility]; Protocol Thiamine HCl 100 mg/ Sodium (Chloride) 101 mls @ 202 mls/hr IV DAILY [facility] Folic Acid 1 mg/ Sodium (Chloride) 50.2 mls @ 100.4 mls/hr IV DAILY [facility] Albumin Human (Kedbumin 25 %) 100 mls @ 100 mls/hr IV Q6H [facility] Stop: 11/12/21 10:44 Ceftriaxone Sodium 1 gm/ (Sodium Chloride) 50 mls @ 100 mls/hr IV DAILY [facility] Lactulose (Lactulose 20 Gm/30 Ml Solution) 30 gm PO TID [facility] Pantoprazole Sodium (Pantoprazole Sodium 40 Mg/10 Ml Vial) 40 mg IVPUSH DAILY@0630 [facility] Pharmacy Consult (Consult Rx Perform Med Rec) 1 each MISCELLANE ONCE PRN PRN Reason: Consult order Pravastatin Sodium (Pravastatin Sodium 20 Mg Tablet) 20 mg PO BEDTIME [facility] Propranolol HCl (Propranolol Hcl 10 Mg Tablet) 10 mg PO TID [facility]; Protocol Sodium Chloride (0.9 % Sodium Chloride Flush 3 Ml Syringe) [facility] Spironolactone (Spironolactone 25 Mg Tablet) 50 mg PO DAILY [facility]; Protocol Topiramate (Topiramate 100 Mg Tablet) 200 mg PO BID [facility] Home Medications Medication Instructions Recorded Confirmed Last Taken Type gabapentin 400 mg 400 mg PO TID 11/11/21 11/11/21 11/11/21 History capsule lactulose 10 30 ml PO TID 11/11/21 11/11/21 11/11/21 History gram/15 mL oral solution (Constulose) lorazepam 1 mg 4 tab PO DAILY 11/11/21 11/11/21 11/11/21 History tablet (Ativan) pantoprazole 40 1 tab PO DAILY 11/11/21 11/11/21 11/11/21 History mg tablet,delayed release pravastatin 20 mg 1 tab PO BEDTIME 11/11/21 11/11/21 11/10/21 History tablet propranolol 10 mg 1 tab PO TID 11/11/21 11/11/21 11/11/21 History tablet risperidone 0.5 1 tab PO BEDTIME 11/11/21 11/11/21 11/10/21 History mg tablet spironolactone 25 2 tab PO DAILY 11/11/21 11/11/21 11/11/21 History mg tablet topiramate 200 mg 1 tab PO BID 11/11/21 11/11/21 11/11/21 History tablet (Topamax) zolpidem 10 mg 1 tab PO BEDTIME 11/11/21 11/11/21 11/10/21 History tablet (Ambien) Physical Exam Verdana 4l Vital Signs and Narrative: Verdana 4d Verdana 4d Vital Signs: Verdana 4d Verdana 4Bd Last Vital Signs Verdana 4d [employer]eral Counsel[employer] New 4d [employer] Counselor New 4d Pulse 68 11/11/21 14:58 Funeral Counselor New 4d Resp 16 11/11/21 14:58 Funeral Counselor New 4d BP 117/63 11/11/21 14:58 Pulse Ox 95 11/11/21 14:58 BMI result Body Mass Index 36.6 Physical exam: Appearance: Alert Oriented X3, but somewhat confused when in detailed questions, slow in response .? ch sick patient Eyes: Pupils equal, round and reactive to light.? Sclera icteric.? ENT: Pharynx normal.? Moist mucous membranes. cvs: rrr, [id number] , no murmur res: clear to auscultation ,no rhonchii or wheezing abd: no rebound or guarding ,big and globular /ascitis , bs present. ext pulses present , no cyanosis , left upper leg bruise ( no palpable hematoma ).b/l leg edema 2+ neuro: axo3 , nonfocal. Results Labs CBC and Chem 7: 11/11/21 11:24 11/11/21 12:44 Labs: Laboratory Results - last 24 hr 11/11/21 11/11/21 11/11/21 11:24 11:24 11:24 MCV 94.6 MCH 31.1 MCHC 32.8 RDW 15.9 Plt Count 202 MPV 10.6 Immature Gran % (Auto) 0.4 Neut % (Auto) 72.5 Lymph % (Auto) 16.2 L [place] % (Auto) 8.0 Eos % (Auto) 2.5 Baso % (Auto) 0.4 Lymph # (Auto) 2.6 [place] # (Auto) 1.3 H Eos # (Auto) 0.4 Baso # (Auto) 0.1 Abs Immat Gran (auto) 0.07 H Absolute Neuts (auto) 11.5 H Absolute Nucleated RBC 0.000 Nucleated RBC % (auto) 0.0 PT INR APTT Anion Gap Estim Creat Clear Calc Estimated GFR Random Glucose Lactic Acid 1.4 Calcium Magnesium Total Bilirubin Direct Bilirubin AST ALT Alkaline Phosphatase Ammonia B-Natriuretic Peptide 113 H Total Protein Albumin Lipase Ethyl Alcohol COVID-19 ([facility]) [facility] 11/11/21 11/11/21 11/11/21 11:24 12:44 12:44 MCV MCH MCHC RDW Plt Count MPV Immature Gran % (Auto) Neut % (Auto) Lymph % (Auto) [place] % (Auto) Eos % (Auto) Baso % (Auto) Lymph # (Auto) [place] # (Auto) Eos # (Auto) Baso # (Auto) Abs Immat Gran (auto) Absolute Neuts (auto) Absolute Nucleated RBC Nucleated RBC % (auto) PT 15.3 H INR 1.3 H APTT 41.3 H Anion Gap 11 L Estim Creat Clear Calc 96.3 Estimated GFR > 60 Random Glucose 106 Lactic Acid Calcium 8.5 Magnesium 2.5 Total Bilirubin 5.1 H Direct Bilirubin 3.7 H AST 60 H ALT 19 Alkaline Phosphatase 306 H Ammonia 53 B-Natriuretic Peptide Total Protein 7.1 Albumin 2.8 L Lipase 157 H Ethyl Alcohol COVID-19 ([place]) [employer] 11/11/21 11/11/21 12:44 12:44 MCV MCH MCHC RDW Plt Count MPV Immature Gran % (Auto) Neut % (Auto) Lymph % (Auto) [place] % (Auto) Eos % (Auto) Baso % (Auto) Lymph # (Auto) [place] # (Auto) Eos # (Auto) Baso # (Auto) Abs Immat Gran (auto) Absolute Neuts (auto) Absolute Nucleated RBC Nucleated RBC % (auto) PT INR APTT Anion Gap Estim Creat Clear Calc Estimated GFR Random Glucose Lactic Acid Calcium Magnesium Total Bilirubin Direct Bilirubin AST ALT Alkaline Phosphatase Ammonia B-Natriuretic Peptide Total Protein Albumin Lipase Ethyl Alcohol < 10 COVID-19 ([facility]) Negative COVID-19 Clin Com See Note Imaging Radiologist's Impressions: Impressions Abdomen Ultrasound 11/11/21 12:02 IMPRESSION: Cirrhotic appearing liver, splenomegaly, varices and large amount of ascites. Limited Doppler exam. Portal flow is difficult to evaluate. There appears to be bidirectional flow/predominantly reversed flow in the main and left portal veins. Flow in the right portal vein is difficult to determine. The hepatic veins and IVC are patent. Doppler Study Ultrasound 11/11/21 12:02 IMPRESSION: Cirrhotic appearing liver, splenomegaly, varices and large amount of ascites. Limited Doppler exam. Portal flow is difficult to evaluate. There appears to be bidirectional flow/predominantly reversed flow in the main and left portal veins. Flow in the right portal vein is difficult to determine. The hepatic veins and IVC are patent. Assessment and Plan (1) Acute metabolic encephalopathy: Status: Acute (2) Decompensation of cirrhosis of liver: Status: Acute (3) Anasarca: Status: Acute (4) Cirrhosis: Qualifiers: Hepatic cirrhosis type: other cirrhosis Qualified Code(s): K74.69 - O ther cirrhosis of liver Status: Acute (5) Hypertension: Status: Acute Plan 56-year-old male with significant alcohol abuse history in the past, quit alcohol 1 month ago, htn , hlp , cirrosis suspected probable alcohol related , prostate cancer hx s/p radiation 1 year ago , anxiety , depression. 1. toxic metabolic encephalopathy secondary to advanced liver disease / cirrho sis (suspected alcohol related). His hepatitis C serology-was in [place] last time. Will add hepatitis serology Abdominal ultrasound noted and discussed with GI we will do paracentesis in the morning and repeat ultrasound after that. Bilirubin elevated from baseline probably related to advanced liver disease. Quit alcohol 1 month ago Started on Thiamine, folic acid,Lactulose, Lasix, spironolactone, IV albumin, neuro checks, CIWA scale. Monitor I&O Daily weight Will add echo also. GI evaluation Hypertension: Continue propranolol Anxiety/depression: Since patient is currently confused, we will hold off risperidone, gabapentin, Ativan for today and started 1 in the morning at a low dose-discussed with psych. HLD: Hold off pravastatin, will monitor LFT in the morning and decide further use. DVT prophylaxis: With subQ Lovenox Quality Stroke Does the patient have a stroke diagnosis?: No VTE Prior VTE?: No VTE Risk Level:: Medical - moderate - high VTE Device Contraindication: N/A - Device Ordered VTE Drug Contraindication: N/A - Med Ordered
[2021-11-11 16:30] VITALS: BP 120/70; PULSE 71; RESP 14; O2SAT 96
[2021-11-11] MEDS: Thiamine HCL 100 MG in 0.9 % Sodium Chloride 100 ML 202 MG IV (17:21)
--- NOTE | 2021-11-11 17:43 | PC.NURSE ---
pt sipping lactulose, encouraged to take more. incontinent of large amount of urine. plan to infuse albumin as ordered per DR Rosenberg in the am
[2021-11-11] MEDS: Pantoprazole Sodium 40 MG/10 ML VIAL IVPUSH (18:31)
[2021-11-11] MEDS: Folic Acid 1 MG TABLET PO (18:31)
--- NOTE | 2021-11-11 20:25 | PC.NURSE ---
pt received 2 albumin iv and the next order for albumin is on hold per doctor and relayed onto in change of shift report not to give.
[2021-11-11 20:32] VITALS: BP 124/64; PULSE 70; RESP 14; O2SAT 99
--- NOTE | 2021-11-11 20:32 | PC.NURSE ---
pt abd semi firm distened, denies pain. vitals stable. skin jaundice. needs at bedside. on monitor nsr no ectopy noted at this time.
[2021-11-11] MEDS: Propranolol HCL 10 MG TABLET PO (22:09)
[2021-11-11] MEDS: Pravastatin Sodium 20 MG TABLET PO (22:09)
[2021-11-11] MEDS: Furosemide 20 MG/2 ML VIAL IVPUSH (22:10)
[2021-11-11] MEDS: Topiramate 100 MG TABLET 200 MG PO (22:19)
--- NOTE | 2021-11-11 22:35 | PC.NURSE ---
pt repositione, complete linen change, incon stool. pt has redness fungal to groin, epc cream applied to buttock and powder to the groin, bedside commode and call andres at bedside. bruising noted to loweer extremity.
[2021-11-12] VITALS (11 sets, daily range): BP systolic 95–130; BP diastolic 51–69; PULSE 57–73; RESP 12–18; TEMP 36.3–36.8; O2SAT 92–98; BMI 30.4
--- NOTE | 2021-11-12 04:05 | PC.NURSE ---
Patient incontinent of stool x 1, mostly liquid. Bed linens changed.
--- NOTE | 2021-11-12 05:16 | PC.NURSE ---
Phone call to hospitalist regarding Bed 6 and previous nursing note that stated to hold albumin. Hospitalist asked about patients blood pressure and said to hold it and if they wanted it could be restarted in the morning. Albumin held per hospitalist
[2021-11-12] MEDS: Pantoprazole Sodium 40 MG/10 ML VIAL IVPUSH (05:56)
--- NOTE | 2021-11-12 06:37 | PC.NURSE ---
Patient has a bruise on his left hip which looks like a recent bruise which was noticed by this writer editor as well as DAR Simon. The bruise is 6.5 inches long and looks fresh
[2021-11-12 06:49] LABS: Hematocrit 30.2 % (42.0-52.0); Hemoglobin 10.1 g/dl (14.0-18.0); Mean Corpuscular HGB Conc 33.4 g/dl (31.0-36.0); Mean Corpuscular Hemoglobin 31.5 pg (27.0-33.0); Mean Corpuscular Volume 94.1 fL (80.0-98.0); Mean Platelet Volume 10.4 fL (9.4-12.4); Platelet Count 196 X10*3/uL (160-400); Red Blood Count 3.21 X10*6/uL (4.60-5.80)
[2021-11-12 07:04] LABS: Anion Gap 11 (12-20); Blood Urea Nitrogen 16 mg/dL (9-16); Calcium 8.4 mg/dL (8.4-10.2); Carbon Dioxide 23 mmol/L (22-29); Chloride 104 mmol/L (96-108); Creatinine Clr Calc Pharmacy 107.4; Estimated Glomerular Filt Rate > 60; Glucose Random 111 mg/dL (60-115); Potassium 3.7 mmol/L (3.3-5.1); Sodium 134 mmol/L (135-145)
--- NOTE | 2021-11-12 08:11 | HO.PM.IMPN ---
Subjective Subjective Date of Service: 11/12/21 Interval History: liver cirrosis , Ascitis Review of Systems seems slightly more awake than yesterday, denies any chest pain or shortness of breath abdomen is still slightly tense due to ascitis. Denies any fever or chills or cough or phlegm. Physical Exam Vital Signs: Vital Signs: Last Vital Signs Temp 98.2 F 11/12/21 04:19 Pulse 67 11/12/21 05:57 Resp 14 11/12/21 05:57 BP 110/62 11/12/21 05:57 Pulse Ox 92 11/12/21 05:57 BMI result Body Mass Index 36.6 Appearance: generalsied weak Eyes: Pupils equal, round and reactive to light. Scleral icterus. Neck: ? Neck supple. CVS: Normal heart rate and rhythm.? Pulses normal. Respiratory: No respiratory distress.?breath sounds seems clear. Abdomen: Rotund, disteneded and globular , somewhat tense. +BS x4 Skin: Skin warm and dry.? Skin color jaundiced? Normal skin turgor. No rashes. Extremities: 2+ pitting? lower extremity edema up to the hips and low back. left hip with ecchymosis, nontender Neuro: Oriented X 2.? weak,answers Y/N questions, globally weak, nonfocal. Objective Data Active Medications Enoxaparin Sodium (Enoxaparin Sodium 40 Mg/0.4 Ml Syringe) 40 mg SUBCUT Q24H [facility] Last Admin: 11/11/21 18:32 Dose: Not Given Documented by: DEMETRIA Non-Admin Reason: See Note Folic Acid (Folic Acid 1 Mg Tablet) 1 mg PO DAILY [facility] Last Admin: 11/11/21 18:31 Dose: 1 mg Documented by: DEMETRIA Furosemide (Furosemide 20 Mg/2 Ml Vial) 20 mg IVPUSH BID [facility]; Protocol Last Admin: 11/11/21 22:10 Dose: 20 mg Documented by: MEMO Thiamine HCl 100 mg/ Sodium (Chloride) 101 mls @ 202 mls/hr IV DAILY [facility] Last Infusion: 11/11/21 20:24 Dose: 0 mls/hr Documented by: MEMO Albumin Human (Kedbumin 25 %) 100 mls @ 100 mls/hr IV Q6H [facility] Stop: 11/12/21 10:44 Last Admin: 11/12/21 04:45 Dose: Not Given Documented by: KRISHNA Non-Admin Reason: Physician Held Med Ceftriaxone Sodium 1 gm/ (Sodium Chloride) 50 mls @ 100 mls/hr IV DAILY [facility] Lactulose (Lactulose 20 Gm/30 Ml Solution) 30 gm PO TID [facility] Last Admin: 11/11/21 22:08 Dose: 30 gm Documented by: MEMO Lorazepam (Lorazepam 1 Mg Tablet) 1 mg PO DAILY [facility] Pantoprazole Sodium (Pantoprazole Sodium 40 Mg/10 Ml Vial) 40 mg IVPUSH DAILY@0630 [facility] Last Admin: 11/12/21 05:56 Dose: 40 mg Documented by: KRISHNA Pharmacy Consult (Consult Rx Perform Med Rec) 1 each MISCELLANE ONCE PRN PRN Reason: Consult order Pravastatin Sodium (Pravastatin Sodium 20 Mg Tablet) 20 mg PO BEDTIME [facility] Last Admin: 11/11/21 22:09 Dose: 20 mg Documented by: MEMO Propranolol HCl (Propranolol Hcl 10 Mg Tablet) 10 mg PO TID [facility]; Protocol Last Admin: 11/11/21 22:09 Dose: 10 mg Documented by: MEMO Sodium Chloride (0.9 % Sodium Chloride Flush 3 Ml Syringe) 3 ml IVFLUSH QSHIFT [facility] Last Admin: 11/12/21 00:28 Dose: Not Given Documented by: MADDY Non-Admin Reason: Administered by Alternate Route Spironolactone (Spironolactone 25 Mg Tablet) 50 mg PO DAILY [facility]; Protocol Topiramate (Topiramate 100 Mg Tablet) 200 mg PO BID [facility] Last Admin: 11/11/21 22:19 Dose: 200 mg Documented by: MEMO Labs CBC & Chem 7: 11/12/21 06:41 11/12/21 06:41 Labs: Laboratory Results - last 24 hr 11/11/21 11/11/21 11/11/21 11:24 11:24 11:24 MCV 94.6 MCH 31.1 MCHC 32.8 RDW 15.9 Plt Count 202 MPV 10.6 Immature Gran % (Auto) 0.4 Neut % (Auto) 72.5 Lymph % (Auto) 16.2 L [place] % (Auto) 8.0 Eos % (Auto) 2.5 Baso % (Auto) 0.4 Lymph # (Auto) 2.6 [place] # (Auto) 1.3 H Eos # (Auto) 0.4 Baso # (Auto) 0.1 Abs Immat Gran (auto) 0.07 H Absolute Neuts (auto) 11.5 H Absolute Nucleated RBC 0.000 Nucleated RBC % (auto) 0.0 PT INR APTT Anion Gap Estim Creat Clear Calc Estimated GFR Random Glucose Lactic Acid 1.4 Calcium Magnesium Total Bilirubin Direct Bilirubin AST ALT Alkaline Phosphatase Ammonia B-Natriuretic Peptide 113 H Total Protein Albumin Lipase Ethyl Alcohol COVID-19 ([facility]) COVID-19 Clin Com 11/11/21 11/11/21 11/11/21 11:24 12:44 12:44 MCV MCH MCHC RDW Plt Count MPV Immature Gran % (Auto) Neut % (Auto) Lymph % (Auto) [place] % (Auto) Eos % (Auto) Baso % (Auto) Lymph # (Auto) [place] # (Auto) Eos # (Auto) Baso # (Auto) Abs Immat Gran (auto) Absolute Neuts (auto) Absolute Nucleated RBC Nucleated RBC % (auto) PT 15.3 H INR 1.3 H APTT 41.3 H Anion Gap 11 L Estim Creat Clear Calc 96.3 Estimated GFR > 60 Random Glucose 106 Lactic Acid Calcium 8.5 Magnesium 2.5 Total Bilirubin 5.1 H Direct Bilirubin 3.7 H AST 60 H ALT 19 Alkaline Phosphatase 306 H Ammonia 53 B-Natriuretic Peptide Total Protein 7.1 Albumin 2.8 L Lipase 157 H Ethyl Alcohol COVID-19 ([facility]) COVID-19 Clin Com 11/11/21 11/11/21 11/12/21 12:44 12:44 06:41 MCV 94.1 MCH 31.5 MCHC 33.4 RDW 16.0 Plt Count 196 MPV 10.4 Immature Gran % (Auto) Neut % (Auto) Lymph % (Auto) [place] % (Auto) Eos % (Auto) Baso % (Auto) Lymph # (Auto) [place] # (Auto) Eos # (Auto) Baso # (Auto) Abs Immat Gran (auto) Absolute Neuts (auto) Absolute Nucleated RBC 0.000 Nucleated RBC % (auto) 0.0 PT INR APTT Anion Gap Estim Creat Clear Calc Estimated GFR Random Glucose Lactic Acid Calcium Magnesium Total Bilirubin Direct Bilirubin AST ALT Alkaline Phosphatase Ammonia B-Natriuretic Peptide Total Protein Albumin Lipase Ethyl Alcohol < 10 COVID-19 ([facility]) Negative COVID-19 Clin Com See Note 11/12/21 06:41 MCV MCH MCHC RDW Plt Count MPV Immature Gran % (Auto) Neut % (Auto) Lymph % (Auto) [place] % (Auto) Eos % (Auto) Baso % (Auto) Lymph # (Auto) [place] # (Auto) Eos # (Auto) Baso # (Auto) Abs Immat Gran (auto) Absolute Neuts (auto) Absolute Nucleated RBC Nucleated RBC % (auto) PT INR APTT Anion Gap 11 L Estim Creat Clear Calc 107.4 Estimated GFR > 60 Random Glucose 111 Lactic Acid Calcium 8.4 Magnesium Total Bilirubin Direct Bilirubin AST ALT Alkaline Phosphatase Ammonia B-Natriuretic Peptide Total Protein Albumin Lipase Ethyl Alcohol COVID-19 ([facility]) COVID-19 Clin Com Assessment and Plan (1) Acute metabolic encephalopathy: Status: Acute (2) Decompensation of cirrhosis of liver: Status: Acute (3) Anasarca: Status: Acute Plan 56-year-old male with significant alcohol abuse history in the past, quit alcohol 1 month ago, htn , hlp , cirrosis suspected probable alcohol related , prostate cancer hx s/p radiation 1 year ago , anxiety , depression. 1.? toxic metabolic encephalopathy(hepatic encephalopathy)secondary to advanced liver disease / cirrhosis ? (suspected alcohol related). His hepatitis C serology-was in [place] last time. hepatitis serology pending Abdominal ultrasound repeat abd us doppler. Bilirubin lft's elevated from baseline probably related to advanced liver disease. hypoalbuminemia sec to liver dis and poor oral intake mild coagulopathy sec to advanced liver dis. Quit alcohol 1 month ago Monitor I&O Daily weight added echo also. s/p paracentesis -labs sent continue Thiamine, folic acid,Lactulose, Lasix, spironolactone, IV albumin, neuro checks, CIWA scale. 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 GI evaluation- pending 2.Hypertension: Continue propranolol 3.Anxiety/depression:? Since patient is currently confused, we will hold off risperidone, gabapentin, Ativan for today and started 1 in the morning at a low dose-discussed with psych. HLD:? Hold off pravastatin, will monitor LFT in the morning and decide further use. DVT prophylaxis:? With subQ PeopleStringnox Quality Stroke Does the patient have a stroke diagnosis?: No VTE Prior VTE?: No VTE Risk Level:: Medical - moderate - high VTE Device Contraindication: N/A - Device Ordered VTE Drug Contraindication: N/A - Med Ordered
--- NOTE | 2021-11-12 08:14 | P.CDIC_ITS ---
CDI Concurrent Query Documentation Clarification: PHYSICIAN'S DOCUMENTATION REQUEST Date of Query: 11/12/21 0815 Patient Name: Leandro Rico Admit Date: 11/11/21 Dear Doctor, A review of the medical record indicates additional documentation may be needed. Please review below and update the documentation accordingly. Verdana 4Bd Risk Factors/Clinical Indicators/Treatments Verdana 4d LAB FINDINGS: albumin 2.8 L IV albumin human Based on the above, could you clarify in the Progress Notes the appropriate diagnosis, if significant, that supports the above abnormalities and additional evaluation, monitoring, and/or treatment rendered: * Hypoalbuminemia or other etiology of lab findings * Other (please specify) * Unable to determine Use of terms such as suspected, likely, concern for, or probable (associated with a specific diagnosis that is being evaluated, monitored, or treated as if it exists) are acceptable and can be coded in the inpatient setting, when documented at the time of discharge. Thank you, Shabana Camejo [facility], CDIS Extension: [phone] Please use your independent medical judgment in providing your response. THIS QUERY IS PART OF THE PERMANENT MEDICAL RECORD Provider Response: Other Other Diagnosis: hypoalbuminemia due to advanced liver dis
--- NOTE | 2021-11-12 08:14 | MHC.CDI.CONC ---
CDI Concurrent Query Documentation Clarification: PHYSICIAN'S DOCUMENTATION REQUEST Date of Query: 11/12/2115 Patient Name: Leandro Rico Admit Date: 11/11/21 Dear Doctor, A review of the medical record indicates additional documentation may be needed. Please review below and update the documentation accordingly. Risk Factors/Clinical Indicators/Treatments LAB FINDINGS: albumin 2.8 L IV albumin human Based on the above, could you clarify in the Progress Notes the appropriate diagnosis, if significant, that supports the above abnormalities and additional evaluation, monitoring, and/or treatment rendered: Hypoalbuminemia or other etiology of lab findings Other (please specify) Unable to determine Use of terms such as suspected, likely, concern for, or probable (associated with a specific diagnosis that is being evaluated, monitored, or treated as if it exists) are acceptable and can be coded in the inpatient setting, when documented at the time of discharge. Thank you, Shabana Camejo [facility], CDIS Extension: [phone] Please use your independent medical judgment in providing your response. THIS QUERY IS PART OF THE PERMANENT MEDICAL RECORD Provider Response: Other Other Diagnosis: hypoalbuminemia due to advanced liver dis
[2021-11-12] MEDS: Lactulose 20 GM/30 ML SOLUTION 30 GM PO ×3 (08:18→20:57)
--- NOTE | 2021-11-12 08:18 | P.CDIC_ITS ---
CDI Concurrent Query Documentation Clarification: PHYSICIAN'S DOCUMENTATION REQUEST Date of Query: 11/12/21 0819 Patient Name: Leandro Rico Admit Date: 11/11/21 Dear Doctor, A review of the medical record indicates additional documentation may be needed. Please review below and update the documentation accordingly. Clinical Indicators: Verdana 4Bd Risk Factors/Clinical Indicators/Treatments Verdana 4d ED: 11/11 - Altered mental status, alert but slow in response, lethargic, confused, jaundiced with concern for hepatic encephalopathy. Cirrhosis probably related to alcohol. Lactulose Dx metabolic encephalopathy, cirrhosis ? alcohol, abdomen distended, paracentesis ordered. Based on the above, please further specify, in the Progress Notes, the known or suspected type of the documented encephalopathy: * Hepatic encephalopathy ( hepatic failure and needs further specificity as to acute, subacute, or chronic) * Other (please specify) * Unable to determine Use of terms such as suspected, likely, concern for, or probable (associated with a specific diagnosis that is being evaluated, monitored, or treated as if it exists) are acceptable and can be coded in the inpatient setting, when documented at the time of discharge. Thank you, Shabana Camejo [facility], CDIS Extension: [phone] Please use your independent medical judgment in providing your response. THIS QUERY IS PART OF THE PERMANENT MEDICAL RECORD Provider Response: Other Other Diagnosis: Toxic metabolic encephalopathy secondary to advanced liver disease
[2021-11-12] MEDS: Topiramate 100 MG TABLET 200 MG PO ×2 (08:19→20:57)
[2021-11-12] MEDS: LORazepam 1 MG TABLET PO (08:19)
[2021-11-12] MEDS: Spironolactone 25 MG TABLET 50 MG PO (08:19)
[2021-11-12] MEDS: cefTRIAXone sodium 1 GM in 0.9 % Sodium Chloride 50 ML IV (08:19)
[2021-11-12] MEDS: 0.9 % Sodium Chloride Flush 3 ML SYRINGE IVFLUSH ×2 (08:19→15:02)
[2021-11-12] MEDS: Folic Acid 1 MG TABLET PO (08:19)
[2021-11-12] MEDS: Furosemide 20 MG/2 ML VIAL IVPUSH (08:19)
[2021-11-12 08:30] LABS: HBc Num1 0.39 S/CO (0.00-0.79); Hepatitis A Antibody IgM 0.76 Index (0-0.79); Hepatitis B Core Antibody Nonreactive (Nonreactive); Hepatitis B Surface Antigen Negative (Negative); ~HepC Num1 0.51 S/CO (0.00-0.79); ~Hepatitis A Antibody IgM Nonreactive (Nonreactive); ~Hepatitis B Surface Antibody REACTIVE (Nonreactive); ~Hepatitis C Antibody Nonreactive (Nonreactive)
[2021-11-12] MEDS: Propranolol HCL 10 MG TABLET PO ×3 (09:52→20:55)
[2021-11-12] MEDS: Albumin Human 25 % 100 ML IV (09:53)
--- NOTE | 2021-11-12 11:00 | CA_ITS ---
Transthoracic Echocardiogram Patient (Last, First, Middle): Leandro Rico, Gender: Male Date of : 1965 Age: 56 Procedure Date: 11/12/2021 Procedure Type: Transthoracic Echocardiogram Location: ER Height: 175.26 cm Weight: 112.49 kg BSA: 2.26 m2 Heart Rate: bpm BP: 110 / 62 mmHg Temp Recruiter: ELVIS Goode MD: Matt Rosenberg MD Pattern Maker Programer: Jayden Ring MD Symptoms: anacarca Study Quality: Fair ECG Rhythm: Sinus Conclusions: - 1. Normal LV systolic function with normal diastolic filling pattern 2. Normal cardiac valvular Doppler 3. Normal RV systolic pressure with possibly mildly increased right atrial pressures 4. Mildly dilated left atrium 5. No pericardial effusion Findings Left Ventricle Normal left ventricular size, thickness, and systolic function. The visually estimated ejection fraction is between 55-60%. Spectral Doppler is indicative of a normal filling pattern. Right Ventricle Normal right ventricular cavity size and systolic function. Atria The left atrium is mildly dilated. Interatrial shunt cannot be excluded. The right atrium is normal in size. Aortic Valve Normal aortic valve structure and function. There is no aortic valve stenosis. There is no aortic valve regurgitation. Mitral Valve Normal mitral valve structure and function. There is trace mitral valve regurgitation. There is no mitral valve stenosis. Pulmonic Valve The pulmonic valve was not well visualized. Tricuspid Valve Likely normal tricuspid valve structure and function. There is mild tricuspid valve regurgitation. The right ventricular systolic pressure is normal. There is no evidence of pulmonary hypertension. Great Vessels All visible segments of the aorta are normal in size. The pulmonary artery was not well visualized. Venous The inferior vena cava is mildly dilated and collapses greater than 50% with inspiration. Pericardium/Pleural There is no evidence of pericardial effusion. Prior Study Comparison No prior study available for comparison. Measurements 2D Linear Measurements IVSd: 1.00 0.6-0.9/0.6-1.0 cm LVIDd: 4.51 3.9-5.3/4.2-5.9 cm LVIDd Index: 2.00 2.4-3.2/2.2-3.1 cm/m2 LVIDs: 3.07 2.0-3.6 cm LVPWd: 1.07 0.7-1.1 cm Ao Root: 3.40 2.1-3.5 cm LA Diam: 4.10 2.7-3.8/3.0-4.0 cm LAIDs Index: 1.81 1.5-2.3 cm/m2 LV Mass: 200.88 67-162/88-224 g LV Mass Index: 88.89 43-95/49-115 g/m2 LVOT Diam: 2.20 3.0+(-)1.3 cm 2D Systolic Function EF 4C: 53.70 >55% EF 2C: 53.60 >55% Mitral Valve MV Pk E: 1.07 MV PK A: 0.68 MV Decel Time: 287.00 E/A: 1.60 E'Lateral: 11.50 E'Medial: 8.27 E/E' Med: 12.90 E/E' Lat: 9.30 PHT: 84.00 MVA PHT: 2.62 Decel Terrell: 3.73 Aortic Valve AoV Pk Nilo: 2.23 AoV Mn Nilo: 1.41 AoV VTI: 0.45 AoV Pk Grad: 20.00 Aov Mn Grad: 9.00 KARLOS Cont.VTI: 3.27 LVOT LVOT Pk Nilo: 1.62 LVOT Mn Nilo: 1.10 LVOT VTI: 0.39 LVOT Pk Grad: 10.00 LVOT Mn Grad: 6.00 LVOT Diam: 2.20 LVOT Area: 3.80 Diastolic Function MV Pk E: 1.07 MV Pk A: 0.68 E/A: 1.60 E'Medial: 8.27 E/E' Med: 12.90 E' Laterial: 11.50 E/E' Lat: 9.30 Right Ventricle TAPSE (mm): 25.00 TVS' Nilo: 14.50 Tricuspid Valve TR Pk Nilo: 2.43 TR Pk Grad: 24.00 RA Press: 8.00 RVSP: 32.00 Great Vessels Aorta Ao Root-2D: 3.40 2.0-3.7 cm Ao Asc: 3.40 2.1-3.4 cm Ao Arch: 3.00 Updated in Other Vendor System with Status of Final Jayden Ring MD electronically signed on 11/12/2021 3:51:44 PM with status of Final
--- NOTE | 2021-11-12 11:18 | PC.NURSE ---
Pt A&Ox3, aware of plan for para this morning. No complaints of pain at this time. Slightly jaundice in color, abd large, taunt and firm. +BS, medicated as per MAR orders. Pt OOB to commode x1. Call andres within reach, will continue to monitor.
[2021-11-12] MEDS: Lidocaine HCl 1 % MPF 5 ML VIAL 6 ML SUBCUT (11:53)
--- NOTE | 2021-11-12 12:09 | PC.NURSE ---
Pt back from IR, A&Ox4, no pain, OOB to commode, VS as charted, pt now to Echo.
[2021-11-12 12:11] LABS: MN% 77.1 %; PMN% 22.9 %; WBC Peritoneal Fluid 0.332 X10*3/uL
[2021-11-12 12:13] LABS: RBC Peritoneal Fluid < 0.002 X10*6/uL
--- NOTE | 2021-11-12 12:32 | PM.GICN ---
History of Present Illness Data of Consult Service Date: 11/12/21 Requesting physician: Matt Rosenberg Primary Care Provider: Arben German MD HPI 56 YM with hx of ETOH related cirrhosis seen at [facility] on 11/11/21 with anasarca and confusion: 56-year-old male with hx of ETOH abuse (quit drinking a month ago), htn , hlp , Cirrhosis, prostate cancer hx s/p radiation 1 year ago , anxiety , depression(from old ed chart review): ?patient is currently somewhat confused and could not able to give much history -history was taken by ED physician, patient's girlfriend, and previous ED chart review: ?as per his girlfriend and? As per ED physician: patient was getting swelling progressively? from last 2-3 week, weight gain, poor appetite. he was sent to see his PCP today from where patient was sent to the ED for evaluation for ascites as well as significant? body swelling. ? Patient is otherwise awake alert but slow in responses -denies any chest pain or shortness of breath or abdominal pain or nausea or vomiting though says that his belly is little tense because of significant fluid.? Denies any fever or chills. Complains of generalized weak ?denies any blood in the stool ?Pt states he was using alcohol heavily since the age of 25-his favorite Flavors were alcohol vodka and beers and quitted drinking a month ago Smokes 1 pack? in for 5 days and denies any recreational drug use He fell down? 2 weeks back when he tripped in his bathroom has a bruise on the left upper leg. Pt was admitted and started on IV antibiotics, lasix, spironolactone and PO lactulose. He had a large volume paracentesis today with successful removal of 11.3 L of clear yellowish fluid from the left lower quadrant.? Pt responds to questions slowly he complains of some abd pain at the site of recent paracentesis Patient denies symptoms of heartburn, dysphagia, nausea, vomiting, change in appetite or weight. Denies recent change in bowel habits, constipation, diarrhea, black stools or rectal bleeding. PAST EGD/COLONOSCOPY: None in [employer] IMAGING STUDIES: 11/11/21 ABD US SHOWED: Cirrhotic appearing liver, splenomegaly, varices and large amount of ascites. Limited Doppler exam. Portal flow is difficult to evaluate. There appears to be bidirectional flow/predominantly reversed flow in the main and left portal veins. Flow in the right portal vein is difficult to determine. The hepatic veins and IVC are patent. 06/[address] SCAN SHOWED: Hepatosplenomegaly with ascites. This is most likely the cause of the patient's abdominal distention. Findings suggest cirrhosis with portal hypertension. Streaky inflammatory changes in the region of the pipe hepatis and periceliac and SMA region without an obvious cause. These could be reactive to the ascites or represent a mesenteric panniculitis. In any event, without adenopathy or a pancreatic mass, this is not a worrisome finding. Review of Systems Review of Systems: as above. Neurologic: Reports confusion Psychiatric: Psychiatric: Reports confusion [facility] Past Medical History Medical History (Updated 11/12/21 @ 18:23 by Abhilash Brito MD) Anxiety Social History Social History Patient Tobacco Use Status: Current everyday Tobacco user Advance Directives: Yes Advance Directives on File: Yes Advance Directives Date on File: 11/11/21 service: No Current occupational status: disabled Meds Allergies Allergy/AdvReac Type Severity Reaction Status Date / Time Fish Containing Products Allergy Severe THROAT Unverified 07/02/20 15:04 SWELLING peanut [Peanut] Allergy Severe THROAT Unverified 07/02/20 15:04 SWELLING Active Medications: Current Medications Enoxaparin Sodium (Enoxaparin Sodium 40 Mg/0.4 Ml Syringe) 40 mg SUBCUT Q24H [facility] Last Admin: 11/11/21 18:32 Dose: Not Given Documented by: Folic Acid (Folic Acid 1 Mg Tablet) 1 mg PO DAILY [facility] Last Admin: 11/12/21 08:19 Dose: 1 mg Documented by: Furosemide (Furosemide 20 Mg/2 Ml Vial) 20 mg IVPUSH BID [facility]; Protocol Last Admin: 11/12/21 08:19 Dose: 20 mg Documented by: Thiamine HCl 100 mg/ Sodium (Chloride) 101 mls @ 202 mls/hr IV DAILY [facility] Last Infusion: 11/11/21 20:24 Dose: Infused Documented by: Ceftriaxone Sodium 1 gm/ (Sodium Chloride) 50 mls @ 100 mls/hr IV DAILY [facility] Last Infusion: 11/12/21 09:26 Dose: Infused Documented by: Lactulose (Lactulose 20 Gm/30 Ml Solution) 30 gm PO TID [facility] Last Admin: 11/12/21 08:18 Dose: 30 gm Documented by: Lorazepam (Lorazepam 1 Mg Tablet) 1 mg PO DAILY [facility] Last Admin: 11/12/21 08:19 Dose: 1 mg Documented by: Pantoprazole Sodium (Pantoprazole Sodium 40 Mg/10 Ml Vial) 40 mg IVPUSH DAILY@0630 [facility] Last Admin: 11/12/21 05:56 Dose: 40 mg Documented by: Pharmacy Consult (Consult Rx Perform Med Rec) 1 each MISCELLANE ONCE PRN PRN Reason: Consult order Pravastatin Sodium (Pravastatin Sodium 20 Mg Tablet) 20 mg PO BEDTIME [facility] Last Admin: 11/11/21 22:09 Dose: 20 mg Documented by: Propranolol HCl (Propranolol Hcl 10 Mg Tablet) 10 mg PO TID [facility]; Protocol Last Admin: 11/12/21 09:52 Dose: 10 mg Documented by: Sodium Chloride (0.9 % Sodium Chloride Flush 3 Ml Syringe) [facility] Last Admin: 11/12/21 08:19 Dose: 3 ml Documented by: Spironolactone (Spironolactone 25 Mg Tablet) 50 mg PO DAILY [facility]; Protocol Last Admin: 11/12/21 08:19 Dose: 50 mg Documented by: Topiramate (Topiramate 100 Mg Tablet) 200 mg PO BID [facility] Last Admin: 11/12/21 08:19 Dose: 200 mg Documented by: Home Medications Medication Instructions Recorded Confirmed Last Taken Type gabapentin 400 mg capsule 400 mg PO TID 11/11/21 11/11/21 11/11/21 History lactulose 10 gram/15 mL oral 30 ml PO TID 11/11/21 11/11/21 11/11/21 History solution (Constulose) lorazepam 1 mg tablet (Ativan) 4 tab PO DAILY 11/11/21 11/11/21 11/11/21 History pantoprazole 40 mg tablet,delayed 1 tab PO DAILY 11/11/21 11/11/21 11/11/21 History release pravastatin 20 mg tablet 1 tab PO BEDTIME 11/11/21 11/11/21 11/10/21 History propranolol 10 mg tablet 1 tab PO TID 11/11/21 11/11/21 11/11/21 History risperidone 0.5 mg tablet 1 tab PO BEDTIME 11/11/21 11/11/21 11/10/21 History spironolactone 25 mg tablet 2 tab PO DAILY 11/11/21 11/11/21 11/11/21 History topiramate 200 mg tablet (Topamax) 1 tab PO BID 11/11/21 11/11/21 11/11/21 History zolpidem 10 mg tablet (Ambien) 1 tab PO BEDTIME 11/11/21 11/11/21 11/10/21 History Physical Exam Vital Signs: Vital Signs: Last Vital Signs Temp 98.2 F 11/12/21 04:19 Pulse 66 11/12/21 12:05 Resp 14 11/12/21 12:05 BP 103/51 L 11/12/21 12:05 Pulse Ox 98 11/12/21 12:05 BMI result Body Mass Index 36.6 Const: General: no acute distress, confusion, ill appearing and other (Jaundiced) Nutritional Appearance: obese Orientation/consciousness: confusion and Other orientation findings (slow response to questions) HENMT: Head: Yes normal to inspection Ears: hearing grossly normal bilaterally Mouth: Normal oral and palatal mucosa present Eyes: Sclerae: scleral abnormal (Jaundice) Pupils: Equal, round and reactive pupils present Neck: Neck: Yes normal visual inspection Chest: Chest palpation & inspection: normal inspection of the chest Resp: Effort & Inspection: normal respiratory effort Auscultation: clear to auscultation bilaterally Cardio: Palpation: normal PMI Rate: regular rate Rhythm: regular rhythm Heart sounds: S1 normal heart sound present, S2 normal heart sound present and no murmurs GI: Inspection: Yes distended Palpation (GI): Soft to palpation, nontender, Hepatomegaly present (Liver palpable 3 cms below RCM, non-tender and firm to palpation) and Ascites present Auscultation: normal bowel sounds Rectal Exam - Male: Yes deferred Skin: General skin exam: no rashes or lesions noted Neuro: General: gait normal, moves all extremities and confusion Cranial nerves: Yes Equal, round and reactive pupils present Extrem: General: Yes pedal edema (1+ pitting edema over both lower extremities) and Yes other (Bilateral Dupytren's contracture involving both hands) Psych: Appearance: grossly normal Mental Status: mental status grossly normal Results Labs CBC & Chem 7: 11/12/21 06:41 11/12/21 06:41 Labs: Short CBC 11/12/21 Range/Units 06:41 WBC 15.0 H (4.8-10.8) X10*3/uL Hgb 10.1 L (14.0-18.0) g/dl Hct 30.2 L (42.0-52.0) % Plt Count 196 (160-400) X10*3/uL BMP 11/11/21 11/12/21 12:44 06:41 Sodium 129 L 134 L Potassium 4.2 3.7 Chloride 99 104 Carbon Dioxide 23 23 BUN 18 H 16 Creatinine 1.06 0.95 Calcium 8.5 8.4 Liver Function 11/11/21 Range/Units 12:44 Total Bilirubin 5.1 H (0.0-1.0) mg/dL Direct Bilirubin 3.7 H (0.0-0.5) mg/dL AST 60 H (5-37) U/L ALT 19 (0-40) U/L Alkaline Phosphatase 306 H (39-117) U/L Albumin 2.8 L (3.5-5.0) g/dL Assessment and Plan (1) Alcoholic cirrhosis of liver with ascites: Status: Acute (2) Acute metabolic encephalopathy: Status: Acute Plan 56 YM with hx of ETOH related cirrhosis seen at [facility] on 11/11/21 with anasarca and confusion. Labs showed normocytic normochromic anemia, elevated LFTs, normal ammonia level Hepatitis serologies showed negative Hep A and C and immunity to Hepatitis B. AST > ALT suggestive of alcohol related liver disease. MELD score is 15. Change in mental status likely due to hepatic encephalopathy versus neurological complications related to chronic ETOH abuse with associated nutritional deficiencies RECOMMENDATIONS: 1. Continue CIWA protocol and monitor for withdrawl 2. Continue Thiamine, folic acid,Lactulose, Lasix, spironolactone. 3. 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 (treatment is indicated if patient has SBO, chylous ascites or mesenteric ischemia). 4. Head CT scan if mental status does not improve with lactulose. 5. Iron studies, Vitamin B12 levels - added to am labs. 6. Pt needs FU in the GI clinic to establish care for management of cirrhosis. Procedures Date of Service Date of Service: 11/12/21
[2021-11-12 12:57] LABS: BF Shift QC OK YES; Lymphocyte Peritoneal Fl 9 %; Monocytes Peritoneal Fl 3 %; Neutrophils Peritoneal Fluid 12 %; Other Peritioneal Fl 76 %
--- NOTE | 2021-11-12 14:32 | PC.NURSE ---
Contacted by Dr. Rosenberg, asking me to collect lab specimens so the lab can see the orders. Specimens were of peritoneal fluid collected in IR during paracentisis. I have not seen or collected fluid, explained to MD this needs to be charted by RN who was involved in collection in fluid and as I was not witness to this fluid and the patient identification accompanying collection of fluid I am not able to sign off on it.
--- NOTE | 2021-11-12 14:41 | MHC.CM.PN ---
CM MET WITH PT WHO REPORTS HE LIVES WITH HIS FIANCE AND IS INDEPENDENT WITH CARE AT BASELINE PT DENIES HAVING ANY HOME SERVICES AND SAYS HE HAS A WALKER HE USES PRN PT CONFIRMS HIS PCP IS HARSHAD MELGOZA AND HE HAS A HCP ON FILE PTS IMM DELIVERED, ORIGINAL AT BEDSIDE, COPY SENT TO [facility] CURRENT DC PLAN IS HOME FAMILY TO TRANSPORT
[2021-11-12] MEDS: Enoxaparin Sodium 40 MG/0.4 ML SYRINGE SUBCUT (15:01)
[2021-11-12 15:11] LABS: Alanine Aminotransferase 16 U/L (0-40); Alkaline Phosphatase 276 U/L (39-117); Aspartate Amino Transferase 66 U/L (5-37); Bilirubin Direct 3.4 mg/dL (0.0-0.5); Bilirubin Total 4.8 mg/dL (0.0-1.0)
[2021-11-13] MEDS: 0.9 % Sodium Chloride Flush 3 ML SYRINGE IVFLUSH ×3 (02:34→21:13)
[2021-11-13 03:43] VITALS: BP 117/59; PULSE 67; RESP 18; TEMP 37.4; O2SAT 95
[2021-11-13] MEDS: Pantoprazole Sodium 40 MG/10 ML VIAL IVPUSH (05:34)
[2021-11-13 06:54] LABS: Anion Gap 12 (12-20); Blood Urea Nitrogen 17 mg/dL (9-16); Calcium 8.4 mg/dL (8.4-10.2); Carbon Dioxide 23 mmol/L (22-29); Chloride 103 mmol/L (96-108); Estimated Glomerular Filt Rate > 60; Glucose Random 118 mg/dL (60-115); Iron 27 mcg/dL (45-160); Percent Iron Saturation 21 % (15-50); Potassium 3.7 mmol/L (3.3-5.1); Sodium 134 mmol/L (135-145); Total Iron Binding Capacity 128 mcg/dL (228-428); Unsaturated Iron Binding 101 ug/dL
[2021-11-13 07:25] LABS: Ferritin 229 ng/mL (20-250)
--- NOTE | 2021-11-13 07:51 | P.PNIM_ITS ---
Subjective Subjective Date of Service: 11/13/21 Interval History: liver cirrosis , Ascitis Review of Systems awake similar to yesterday, ?denies any chest pain or shortness of breath ?abdomen is still slightly tense due to ascitis. ? Denies any fever or chills or cough or phlegm. Physical Exam Verdana 4l Vital Signs: Verdana 4d Verdana 4d Vital Signs: Verdana 4d Verdana 4Bd Last Vital Signs Verdana 4d Hearing Aid Specialist New 4d Hearing Aid Specialist New 4d Temp 99.3 F 11/13/21 03:43 Hearing Aid Specialist New 4d Pulse 67 11/13/21 03:43 Hearing Aid Specialist New 4d Resp 18 11/13/21 03:43 BP 117/59 L 11/13/21 03:43 Pulse Ox 95 11/13/21 03:43 BMI result Body Mass Index 30.4 Appearance: generalsied weak Eyes: Pupils equal, round and reactive to light. Scleral icterus. Neck: ? Neck supple. CVS: Normal heart rate and rhythm.? Pulses normal. Respiratory: No respiratory distress.?breath sounds seems clear. Abdomen: Rotund, less ascitis , still tense. +BS x4 Skin: Skin warm and dry.? Skin color jaundiced? Normal skin turgor. No rashes. Extremities: 2+ pitting? lower extremity edema up to the hips and low back. left hip with ecchymosis, nontender Neuro: Oriented X 2.? weak,answers Y/N questions, globally weak, nonfocal Objective Data Active Medications Enoxaparin Sodium (Enoxaparin Sodium 40 Mg/0.4 Ml Syringe) 40 mg SUBCUT Q24H [facility] Last Admin: 11/12/21 15:01 Dose: 40 mg Documented by: DIETER Folic Acid (Folic Acid 1 Mg Tablet) 1 mg PO DAILY [facility] Last Admin: 11/12/21 08:19 Dose: 1 mg Documented by: DIETER Furosemide (Furosemide 20 Mg/2 Ml Vial) 20 mg IVPUSH BID [facility]; Protocol Last Admin: 11/12/21 08:19 Dose: 20 mg Documented by: DIETER Thiamine HCl 100 mg/ Sodium (Chloride) 101 mls @ 202 mls/hr IV DAILY [facility] Last Admin: 11/12/21 15:02 Dose: Not Given Documented by: DIETER Non-Admin Reason: Off Unit: Surgery Ceftriaxone Sodium 1 gm/ (Sodium Chloride) 50 mls @ 100 mls/hr IV DAILY [facility] Last Infusion: 11/12/21 09:26 Dose: 0 mls/hr Documented by: DIETER Lactulose (Lactulose 20 Gm/30 Ml Solution) 30 gm PO TID [facility] Last Admin: 11/12/21 20:57 Dose: 30 gm Documented by: MATHEW Lorazepam (Lorazepam 1 Mg Tablet) 1 mg PO DAILY [facility] Last Admin: 11/12/21 08:19 Dose: 1 mg Documented by: DIETER Pantoprazole Sodium (Pantoprazole Sodium 40 Mg/10 Ml Vial) 40 mg IVPUSH DAILY@0630 [facility] Last Admin: 11/13/21 05:34 Dose: 40 mg Documented by: ESPERANZA Pharmacy Consult (Consult Rx Perform Med Rec) 1 each MISCELLANE ONCE PRN PRN Reason: Consult order Propranolol HCl (Propranolol Hcl 10 Mg Tablet) 10 mg PO TID [facility]; Protocol Last Admin: 11/12/21 20:55 Dose: 10 mg Documented by: MATHEW Sodium Chloride (0.9 % Sodium Chloride Flush 3 Ml Syringe) 3 ml IVFLUSH QSHIFT [facility] Last Admin: 11/13/21 02:34 Dose: 3 ml Documented by: ESPERANZA Spironolactone (Spironolactone 25 Mg Tablet) 50 mg PO DAILY [facility]; Protocol Last Admin: 11/12/21 08:19 Dose: 50 mg Documented by: DIETER Topiramate (Topiramate 100 Mg Tablet) 200 mg PO BID [facility] Last Admin: 11/12/21 20:57 Dose: 200 mg Documented by: MATHEW Labs CBC & Chem 7: 11/12/21 06:41 11/13/21 05:53 Labs: Laboratory Results - last 24 hr 11/11/21 11/12/21 11/12/21 12:44 06:41 10:54 Anion Gap Estim Creat Clear Calc Estimated GFR Random Glucose Calcium Iron TIBC % Saturation Unsat Iron Binding Ferritin Total Bilirubin 4.8 H Direct Bilirubin 3.4 H AST 66 H ALT 16 Alkaline Phosphatase 276 H Total Protein 7.0 Albumin 3.0 L Peritoneal WBC 0.332 Peritoneal RBC < 0.002 Periton Neutrophils 12 Periton Lymphocytes 9 Peritoneal Monocytes 3 Peritoneal Other Cells 76 Hepatitis A IgM Ab Nonreactive Hep Bs Antigen Negative Hep Bs Antibody REACTIVE Hep B Core Total Ab Nonreactive Hepatitis C Ab (EIA) Nonreactive 11/13/21 11/13/21 05:53 05:53 Anion Gap 12 Estim Creat Clear Calc 87.0 Estimated GFR > 60 Random Glucose 118 H Calcium 8.4 Iron 27 L Cancelled TIBC 128 L Cancelled % Saturation 21 Cancelled Unsat Iron Binding 101 Cancelled Ferritin 229 Cancelled Total Bilirubin Direct Bilirubin AST ALT Alkaline Phosphatase Total Protein Albumin Peritoneal WBC Peritoneal RBC Periton Neutrophils Periton Lymphocytes Peritoneal Monocytes Peritoneal Other Cells Hepatitis A IgM Ab Hep Bs Antigen Hep Bs Antibody Hep B Core Total Ab Hepatitis C Ab (EIA) Microbiology Microbiology Results: Microbiology 11/11/21 12:49 Blood Culture - Preliminary Blood - Venous No growth after 24 hours. 11/11/21 12:44 Blood Culture - Preliminary Blood - Venous No growth after 24 hours. 11/12/21 10:54 Gram Stain - Final Abdominal Fluid Assessment and Plan (1) Acute metabolic encephalopathy: Status: Acute (2) Anasarca: Status: Acute Plan 56-year-old male with significant alcohol abuse history in the past, quit alcohol 1 month ago, htn , hlp , cirrosis suspected probable alcohol related , prostate cancer hx s/p radiation 1 year ago , anxiety , depression. 1.? toxic metabolic encephalopathy(hepatic encephalopathy)secondary to advanced liver disease / cirrhosis ? (suspected alcohol related). His hepatitis C serology-was [place] last time. hepatitis serology pending Abdominal ultrasound repeat abd us doppler. Bilirubin lft's elevated from baseline probably related to advanced liver disease. hypoalbuminemia sec to liver dis and poor oral intake mild coagulopathy sec to advanced liver dis. Quit alcohol 1 month ago Monitor I&O Daily weight added? echo also. s/p paracentesis -labs sent GI evaluation- noted -ct abd sone: seems fine except musocal thicking doppler -shows patent portal and hepatic viens continue Thiamine, folic acid,Lactulose, Lasix, spironolactone, IV albumin, neuro checks, CIWA scale. getting iv albumin also, sheet metal duct installer helper consult. 2.Hypertension: Continue propranolol 3.Anxiety/depression:? Since patient is currently confused, we will hold off risperidone, gabapentin, Ativan for today and started 1 in the morning at a low dose-discussed with psych. HLD:? Hold off pravastatin, will monitor LFT in the morning and decide further use. DVT prophylaxis:? With subQ Lovenox Quality Stroke Does the patient have a stroke diagnosis?: No VTE Prior VTE?: No VTE Risk Level:: Medical - moderate - high VTE Device Contraindication: N/A - Device Ordered VTE Drug Contraindication: N/A - Med Ordered
[2021-11-13 07:59] VITALS: BP 90/53; PULSE 68; RESP 18; TEMP 36.8; O2SAT 97
[2021-11-13 08:32] LABS: Albumin Peritoneal Fluid 1.2
[2021-11-13 08:33] LABS: LDH Peritoneal Fluid 63; Total Protein Peritoneal Fluid 2.5
[2021-11-13 08:34] LABS: Glucose Peritoneal Fluid 112
[2021-11-13] MEDS: LORazepam 1 MG TABLET PO (10:11)
[2021-11-13] MEDS: Topiramate 100 MG TABLET 200 MG PO ×2 (10:12→21:13)
[2021-11-13] MEDS: Lactulose 20 GM/30 ML SOLUTION 30 GM PO ×3 (10:13→21:12)
[2021-11-13] MEDS: Folic Acid 1 MG TABLET PO (10:13)
[2021-11-13] MEDS: cefTRIAXone sodium 1 GM in 0.9 % Sodium Chloride 50 ML IV (10:19)
[2021-11-13] MEDS: Albumin Human 25 % 100 ML IV ×4 (10:37→18:19)
[2021-11-13] MEDS: Thiamine HCL 100 MG in 0.9 % Sodium Chloride 100 ML 202 MG IV (10:45)
[2021-11-13] MEDS: Lactated Ringers 1,000 ML 80 ML IVCONT (10:46)
[2021-11-13 12:00] VITALS: BP 111/59; PULSE 69; RESP 18; TEMP 37.2; O2SAT 98
[2021-11-13] MEDS: iohexoL 350 MG/ML 100 ML INFUS..BTL IV (13:48)
[2021-11-13] MEDS: Barium Sulfate Oral (Vanilla) 450 ML ORAL.SUSP 900 ML PO (13:49)
[2021-11-13 14:40] VITALS: BP 117/57; PULSE 67
[2021-11-13] MEDS: Propranolol HCL 10 MG TABLET PO ×2 (14:43→21:13)
[2021-11-13] MEDS: Enoxaparin Sodium 40 MG/0.4 ML SYRINGE SUBCUT (15:57)
[2021-11-13 16:00] VITALS: BP 106/59; PULSE 66; RESP 15; TEMP 36.2; O2SAT 95
[2021-11-13 19:24] VITALS: BP 112/60; PULSE 71; RESP 18; TEMP 36.6; O2SAT 93
[2021-11-14] VITALS: BP 112/60; PULSE 64; RESP 18; TEMP 36.4; O2SAT 94
[2021-11-14 04:00] VITALS: BP 117/54; PULSE 70; RESP 14; TEMP 36.4; O2SAT 95
[2021-11-14] MEDS: Pantoprazole Sodium 40 MG/10 ML VIAL IVPUSH (05:44)
[2021-11-14 05:56] LABS: Anion Gap 15 (12-20); Blood Urea Nitrogen 15 mg/dL (9-16); Calcium 8.7 mg/dL (8.4-10.2); Carbon Dioxide 21 mmol/L (22-29); Chloride 102 mmol/L (96-108); Creatinine Clr Calc Pharmacy 78.2; Estimated Glomerular Filt Rate > 60; Glucose Random 116 mg/dL (60-115); Potassium 3.1 mmol/L (3.3-5.1); Sodium 135 mmol/L (135-145)
[2021-11-14 07:35] VITALS: BP 120/61; PULSE 64; RESP 18; TEMP 36.8; O2SAT 97
--- NOTE | 2021-11-14 08:19 | P.PNIM_ITS ---
Subjective Subjective Date of Service: 11/14/21 Interval History: abd pain seems similar seems more awake. Denies any chest pain or shortness of breath or nausea or vomiting. Still generalized weak Review of Systems as above. Physical Exam Verdana 4l Vital Signs: Verdana 4d Verdana 4d Vital Signs: Verdana 4d Verdana 4Bd Last Vital Signs Verdana 4d Molecular Pathologist New 4d Molecular Pathologist New 4d Temp 98.2 F 11/14/21 07:35 Molecular Pathologist New 4d Pulse 64 11/14/21 07:35 Molecular Pathologist New 4d Resp 18 11/14/21 07:35 BP 120/61 11/14/21 07:35 Pulse Ox 97 11/14/21 07:35 BMI result Body Mass Index 30.4 ?Appearance: slightly more awake , but still weak Eyes: Pupils equal, round and reactive to light. Scleral icterus. CVS: Normal heart rate and rhythm.? Pulses normal. Respiratory: No respiratory distress.?breath sounds seems clear. Abdomen: Rotund, less ascitis , still tense. +BS x4 Skin: Skin warm and dry.? Skin color jaundiced? Normal skin turgor. No rashes. Extremities: 2+ pitting? lower extremity edema up to the hips and low back. left hip with ecchymosis, nontender Neuro: Oriented X 2.? weak,answers Y/N questions, globally weak, nonfocal. Objective Data Active Medications Enoxaparin Sodium (Enoxaparin Sodium 40 Mg/0.4 Ml Syringe) 40 mg SUBCUT Q24H [facility] Last Admin: 11/13/21 15:57 Dose: 40 mg Documented by: DARIN Folic Acid (Folic Acid 1 Mg Tablet) 1 mg PO DAILY [facility] Last Admin: 11/13/21 10:13 Dose: 1 mg Documented by: DARIN Thiamine HCl 100 mg/ Sodium (Chloride) 101 mls @ 202 mls/hr IV DAILY [facility] Last Infusion: 11/13/21 11:15 Dose: 0 mls/hr Documented by: DARIN Ceftriaxone Sodium 1 gm/ (Sodium Chloride) 50 mls @ 100 mls/hr IV DAILY [facility] Last Infusion: 11/13/21 10:49 Dose: 0 mls/hr Documented by: KRIS Albumin Human (Kedbumin 25 %) 100 mls @ 100 mls/hr IV Q1H [facility] Stop: 11/14/21 10:14 Lactulose (Lactulose 20 Gm/30 Ml Solution) 30 gm PO TID [facility] Last Admin: 11/13/21 21:12 Dose: 30 gm Documented by: NIDA Lorazepam (Lorazepam 1 Mg Tablet) 1 mg PO DAILY [facility] Last Admin: 11/13/21 10:11 Dose: 1 mg Documented by: DARIN Pantoprazole Sodium (Pantoprazole Sodium 40 Mg/10 Ml Vial) 40 mg IVPUSH DAILY@0630 [facility] Last Admin: 11/14/21 05:44 Dose: 40 mg Documented by: NIDA Pharmacy Consult (Consult Rx Perform Med Rec) 1 each MISCELLANE ONCE PRN PRN Reason: Consult order Propranolol HCl (Propranolol Hcl 10 Mg Tablet) 10 mg PO TID [facility]; Protocol Last Admin: 11/13/21 21:13 Dose: 10 mg Documented by: NIDA Sodium Chloride (0.9 % Sodium Chloride Flush 3 Ml Syringe) 3 ml IVFLUSH QSHIFT [facility] Last Admin: 11/13/21 21:13 Dose: 3 ml Documented by: NIDA Spironolactone (Spironolactone 25 Mg Tablet) 50 mg PO DAILY [facility]; Protocol Last Admin: 11/13/21 10:30 Dose: Not Given Documented by: DARIN Non-Admin Reason: BP 90/53 Topiramate (Topiramate 100 Mg Tablet) 200 mg PO BID [facility] Last Admin: 11/13/21 21:13 Dose: 200 mg Documented by: NIDA Labs CBC & Chem 7: 11/12/21 06:41 11/14/21 04:51 Labs: Laboratory Results - last 24 hr 11/12/21 11/14/21 10:54 04:51 Anion Gap 15 Estim Creat Clear Calc 78.2 Estimated GFR > 60 Random Glucose 116 H Calcium 8.7 Peritoneal Tot Protein 2.5 Peritoneal Albumin 1.2 Peritoneal LDH 63 Peritoneal Glucose 112 Microbiology Microbiology Results: Microbiology 11/11/21 12:49 Blood Culture - Preliminary Blood - Venous No growth after 48 hours. 11/11/21 12:44 Blood Culture - Preliminary Blood - Venous No growth after 48 hours. 11/12/21 10:54 Gram Stain - Final Abdominal Fluid Anaerobic Culture - Preliminary No growth to date. Body Fluid Culture - Preliminary No growth after 1 day Assessment and Plan (1) Acute metabolic encephalopathy: Status: Acute (2) Anasarca: Status: Acute Plan 56-year-old male with significant alcohol abuse history in the past, quit alcohol 1 month ago, htn , hlp , cirrosis suspected probable alcohol related , prostate cancer hx s/p radiation 1 year ago , anxiety , depression. 1.? toxic metabolic encephalopathy(hepatic encephalopathy)secondary to advanced liver disease / cirrhosis ? (suspected alcohol related). His hepatitis C serology-was [place] time. hepatitis serology pending Abdominal ultrasound repeat abd us doppler. Bilirubin lft's elevated from baseline probably related to advanced liver disease. hypoalbuminemia sec to liver dis and poor oral intake mild coagulopathy sec to advanced liver dis. Quit alcohol 1 month ago Monitor I&O Daily weight added? echo also. s/p paracentesis -labs sent GI evaluation- noted -ct abd sone: seems fine except musocal thicking doppler -shows patent portal and hepatic viens continue Thiamine, folic acid,Lactulose, IV albumin, neuro checks, CIWA scale. getting iv albumin also, fractionation supervisor consult. 2. mild possible braulio: hold Lasix, spironolactone. abd ct -The kidneys are normal in size, shape, and attenuation. No hydronephrosis, hydroureter, or calculi seen. No perinephric stranding. ? bladder scan will add renal sono nephro eval 2.Hypertension: Continue propranolol 3.Anxiety/depression:? Since patient is currently confused, we will hold off risperidone, gabapentin, Ativan for today and started 1 in the morning at a low dose-discussed with psych. HLD:? Hold off pravastatin, will monitor LFT in the morning and decide further use. DVT prophylaxis:? With subQ Lovenox Quality Stroke Does the patient have a stroke diagnosis?: No VTE Prior VTE?: No VTE Risk Level:: Medical - moderate - high VTE Device Contraindication: N/A - Device Ordered VTE Drug Contraindication: N/A - Med Ordered
[2021-11-14 08:36] LABS: Alanine Aminotransferase 12 U/L (0-40); Albumin Level 3.5 g/dL (3.5-5.0); Alkaline Phosphatase 208 U/L (39-117); Aspartate Amino Transferase 37 U/L (5-37); Bilirubin Total 4.2 mg/dL (0.0-1.0); Total Protein 6.7 g/dL (6.5-8.0)
[2021-11-14] MEDS: cefTRIAXone sodium 1 GM in 0.9 % Sodium Chloride 50 ML IV (08:55)
[2021-11-14] MEDS: Potassium Chloride Packet 20 MEQ PACKET 40 MEQ PO (08:58)
[2021-11-14] MEDS: 0.9 % Sodium Chloride Flush 3 ML SYRINGE IVFLUSH ×3 (08:58→22:17)
[2021-11-14] MEDS: Folic Acid 1 MG TABLET PO (08:59)
[2021-11-14] MEDS: Spironolactone 25 MG TABLET 50 MG PO (08:59)
[2021-11-14] MEDS: Topiramate 100 MG TABLET 200 MG PO ×2 (09:00→22:13)
[2021-11-14] MEDS: Propranolol HCL 10 MG TABLET PO ×3 (09:00→22:15)
[2021-11-14] MEDS: Lactulose 20 GM/30 ML SOLUTION 30 GM PO ×2 (09:03→22:14)
--- NOTE | 2021-11-14 09:07 | P.CONNP_ITS ---
History of Present Illness Reason for Consult Consult date: 11/14/21 Chief Complaint Chief complaint: Toxic metabolic encephalopathy secondary to History of Present Illness Narrative: This is a 56-year-old male with alcohol abuse quit 1 month ago cirrhosis of the liver prostate cancer with radiation 1 year ago he was admitted November 11 mild hyponatremia 134 potassium 3.1 creatinine in slightly elevated today 1.19 There is no recorded urine output Review of Systems Reports confusion Psychiatric: Reports confusion PMFSH Past Medical History Medical History (Updated 11/14/21 @ 09:22 by Gadiel Medina MD) Anxiety Family History Pertinent family history: none except patient's multiple cousins are heavy alcohol drinker. Social History Social History Household Members: Spouse Housing: Condominium Patient Tobacco Use Status: Current someday Tobacco user Tobacco use type: Cigarette Advance Directives Date on File: 11/11/21 service: No Current occupational status: disabled Meds Allergies Allergy/AdvReac Type Severity Reaction Status Date / Time Fish Containing Products Allergy Severe THROAT Verified 11/13/21 05:34 SWELLING peanut [Peanut] Allergy Severe THROAT Verified 11/13/21 05:34 SWELLING Active Medications: Current Medications Enoxaparin Sodium (Enoxaparin Sodium 40 Mg/0.4 Ml Syringe) 40 mg SUBCUT Q24H [facility] Last Admin: 11/13/21 15:57 Dose: 40 mg Documented by: Folic Acid (Folic Acid 1 Mg Tablet) 1 mg PO DAILY [facility] Last Admin: 11/14/21 08:59 Dose: 1 mg Documented by: Thiamine HCl 100 mg/ Sodium (Chloride) 101 mls @ 202 mls/hr IV DAILY [facility] Last Infusion: 11/13/21 11:15 Dose: Infused Documented by: Ceftriaxone Sodium 1 gm/ (Sodium Chloride) 50 mls @ 100 mls/hr IV DAILY [facility] Last Admin: 11/14/21 08:55 Dose: 100 mls/hr Documented by: Albumin Human (Kedbumin 25 %) 100 mls @ 100 mls/hr IV Q1H [facility] Stop: 11/14/21 10:14 Lactulose (Lactulose 20 Gm/30 Ml Solution) 30 gm PO TID [facility] Last Admin: 11/14/21 09:03 Dose: 30 gm Documented by: Lorazepam (Lorazepam 1 Mg Tablet) 1 mg PO DAILY [facility] Last Admin: 11/13/21 10:11 Dose: 1 mg Documented by: Pantoprazole Sodium (Pantoprazole Sodium 40 Mg/10 Ml Vial) 40 mg IVPUSH DAILY@0630 [facility] Last Admin: 11/14/21 05:44 Dose: 40 mg Documented by: Pharmacy Consult (Consult Rx Perform Med Rec) 1 each MISCELLANE ONCE PRN PRN Reason: Consult order Propranolol HCl (Propranolol Hcl 10 Mg Tablet) 10 mg PO TID [facility]; Protocol Last Admin: 11/14/21 09:00 Dose: 10 mg Documented by: Sodium Chloride (0.9 % Sodium Chloride Flush 3 Ml Syringe) 3 ml IVFLUSH QSHIFT [facility] Last Admin: 11/14/21 08:58 Dose: 3 ml Documented by: Spironolactone (Spironolactone 25 Mg Tablet) 50 mg PO DAILY [facility]; Protocol Last Admin: 11/14/21 08:59 Dose: 50 mg Documented by: Topiramate (Topiramate 100 Mg Tablet) 200 mg PO BID [facility] Last Admin: 11/14/21 09:00 Dose: 200 mg Documented by: Home Medications Medication Instructions Recorded Confirmed Last Taken Type gabapentin 400 mg 400 mg PO TID 11/11/21 11/11/21 11/11/21 History capsule lactulose 10 30 ml PO TID 11/11/21 11/11/21 11/11/21 History gram/15 mL oral solution (Constulose) lorazepam 1 mg 4 tab PO DAILY 11/11/21 11/11/21 11/11/21 History tablet (Ativan) pantoprazole 40 1 tab PO DAILY 11/11/21 11/11/21 11/11/21 History mg tablet,delayed release pravastatin 20 mg 1 tab PO BEDTIME 11/11/21 11/11/21 11/10/21 History tablet propranolol 10 mg 1 tab PO TID 11/11/21 11/11/21 11/11/21 History tablet risperidone 0.5 1 tab PO BEDTIME 11/11/21 11/11/21 11/10/21 History mg tablet spironolactone 25 2 tab PO DAILY 11/11/21 11/11/21 11/11/21 History mg tablet topiramate 200 mg 1 tab PO BID 11/11/21 11/11/21 11/11/21 History tablet (Topamax) zolpidem 10 mg 1 tab PO BEDTIME 11/11/21 11/11/21 11/10/21 History tablet (Ambien) Physical Exam Vital Signs: Last Vital Signs Temp 98.2 F 11/14/21 07:35 Pulse 64 11/14/21 07:35 Resp 18 11/14/21 07:35 BP 120/61 11/14/21 07:35 Pulse Ox 97 11/14/21 07:35 BMI result Verdana 4 Body Mass Index Verdana 4 30.4 Verdana 4 Verdana 4 Const General: no acute distress, confusion, ill appearing and other (Jaundiced) Nutritional Appearance: obese Orientation/consciousness: confusion and Other orientation findings (slow response to questions) HENMT Head: Yes normal to inspection Ears: hearing grossly normal bilaterally Mouth: Normal oral and palatal mucosa present Eyes Sclerae: scleral abnormal (Jaundice) Pupils: Equal, round and reactive pupils present Neck Neck: Yes normal visual inspection Chest Chest palpation & inspection: normal inspection of the chest Resp Effort & Inspection: normal respiratory effort Auscultation: clear to auscultation bilaterally Cardio Palpation: normal PMI Rate: regular rate Rhythm: regular rhythm Heart sounds: S1 normal heart sound present, S2 normal heart sound present and no murmurs GI Inspection: Yes distended Palpation (GI): Soft to palpation, nontender, Hepatomegaly present (Liver palpable 3 cms below RCM, non-tender and firm to palpation) and Ascites present Auscultation: normal bowel sounds Rectal Exam - Male: Yes deferred Skin General skin exam: no rashes or lesions noted Neuro General: gait normal, moves all extremities and confusion Cranial nerves: Yes Equal, round and reactive pupils present Extrem General: Yes pedal edema (1+ pitting edema over both lower extremities) and Yes other (Bilateral Dupytren's contracture involving both hands) Psych Appearance: grossly normal Mental Status: mental status grossly normal Results Lab Results Result Diagrams: 11/12/21 06:41 11/14/21 04:51 Lab results: Chemistry 11/11/21 11/12/21 11/13/21 12:44 06:41 05:53 Sodium 129 L 134 L 134 L Potassium 4.2 3.7 3.7 Carbon Dioxide 23 23 23 BUN 18 H 16 17 H Creatinine 1.06 0.95 1.07 Calcium 8.5 8.4 8.4 11/14/21 04:51 Sodium 135 Potassium 3.1 L Carbon Dioxide 21 L BUN 15 Creatinine 1.19 Calcium 8.7 Hematology 11/11/21 11/12/21 11:24 06:41 WBC 15.9 H 15.0 H Hgb 11.0 L 10.1 L Plt Count 202 196 Assessment and Plan (1) Alcoholic cirrhosis of liver with ascites: Status: Acute (2) NATHANIEL (acute kidney injury): Status: Acute I will order urine studies on him will try to get accurate urine output he may need a Barber catheter given his history of prostate cancer and renal ultrasound to rule out obstruction Plan 56-year-old male with significant alcohol abuse history in the past, quit alcohol 1 month ago, htn , hlp , cirrosis suspected probable alcohol related , prostate cancer hx s/p radiation 1 year ago , anxiety , depression. 1.? toxic metabolic encephalopathy(hepatic encephalopathy)secondary to advanced liver disease / cirrhosis ? (suspected alcohol related). His hepatitis C serology-was [place] last time. hepatitis serology pending Abdominal ultrasound repeat abd us doppler. Bilirubin lft's elevated from baseline probably related to advanced liver disease. hypoalbuminemia sec to liver dis and poor oral intake mild coagulopathy sec to advanced liver dis. Quit alcohol 1 month ago Monitor I&O Daily weight added? echo also. s/p paracentesis -labs sent GI evaluation- noted -ct abd sone: seems fine except musocal thicking doppler -shows patent portal and hepatic viens continue Thiamine, folic acid,Lactulose, Lasix, spironolactone, IV albumin, neuro checks, CIWA scale. getting iv albumin also, form setter supervisor consult. 2.Hypertension: Continue propranolol 3.Anxiety/depression:? Since patient is currently confused, we will hold off risperidone, gabapentin, Ativan for today and started 1 in the morning at a low dose-discussed with psych. HLD:? Hold off pravastatin, will monitor LFT in the morning and decide further use. DVT prophylaxis:? With subQ Lovenox Procedures Date of Service Date of Service: 11/14/21
[2021-11-14] MEDS: Albumin Human 25 % 100 ML IV ×2 (09:26→10:35)
[2021-11-14] MEDS: Thiamine HCL 100 MG in 0.9 % Sodium Chloride 100 ML 202 MG IV (11:38)
[2021-11-14 15:02] LABS: Creatinine Urine 257.19 mg/dL; Microalbum/Creatinine Ratio Ur 15.1 ug/mg cr; Sodium Urine Random < 20.0 mmol/L
[2021-11-14 15:06] LABS: Osmolality Urine 649 mosm/kg (373-1093)
[2021-11-14 15:14] VITALS: BP 107/57; PULSE 68; RESP 18; TEMP 36.6; O2SAT 96
[2021-11-14] MEDS: Enoxaparin Sodium 40 MG/0.4 ML SYRINGE SUBCUT (15:17)
[2021-11-14 17:50] LABS: CDiff Gene PCR NEGATIVE (Negative)
[2021-11-14 19:40] VITALS: BP 115/66; PULSE 61; RESP 19; TEMP 36.6; O2SAT 93
[2021-11-15] VITALS (9 sets, daily range): BP systolic 106–134; BP diastolic 54–67; PULSE 57–80; RESP 14–18; TEMP 36.3–37.1; O2SAT 91–97
[2021-11-15 04:19] LABS: Vitamin B12 827 pg/mL (200-900)
[2021-11-15] MEDS: Pantoprazole Sodium 40 MG/10 ML VIAL IVPUSH (05:43)
[2021-11-15 06:13] LABS: Anion Gap 13 (12-20); Blood Urea Nitrogen 16 mg/dL (9-16); Calcium 9.1 mg/dL (8.4-10.2); Carbon Dioxide 23 mmol/L (22-29); Chloride 104 mmol/L (96-108); Creatinine Clr Calc Pharmacy 73.9; Estimated Glomerular Filt Rate 59; Glucose Random 124 mg/dL (60-115); Potassium 3.4 mmol/L (3.3-5.1); Sodium 137 mmol/L (135-145)
--- NOTE | 2021-11-15 07:34 | P.PNIM_ITS ---
Subjective Subjective Date of Service: 11/15/21 Interval History: liver dis / ascitis Review of Systems Toxic metabolic encephalopathy secondary to liver disease. Mental status is seems similar to yesterday. Still refusing intermittently lactulose and his other medications. has mild abd pain Otherwise denying any chest pain or shortness of breath or fever chills. Physical Exam Verdana 4l Vital Signs: Verdana 4d Verdana 4d Vital Signs: Verdana 4d Verdana 4Bd Last Vital Signs Verdana 4d Foreign Policy Officer New 4d Foreign Policy Officer New 4d Temp 98.0 F 11/15/21 03:32 Foreign Policy Officer New 4d Pulse 59 11/15/21 03:32 Foreign Policy Officer New 4d Resp 18 11/15/21 03:32 BP 120/67 11/15/21 03:32 Pulse Ox 91 L 11/15/21 03:32 BMI result Body Mass Index 30.4 Appearance: slightly more awake , but still weak Eyes: Pupils equal, round and reactive to light. Scleral icterus. CVS: Normal heart rate and rhythm.? Pulses normal. Respiratory: No respiratory distress.?breath sounds seems clear. Abdomen: Rotund, less ascitis , still tense. +BS x4 Skin: Skin warm and dry.? Skin color jaundiced? Normal skin turgor. No rashes. Extremities: 2+ pitting? lower extremity edema up to the hips and low back. left hip with ecchymosis, nontender Neuro: Oriented X 2.? weak,answers Y/N questions, globally weak, nonfocal. Objective Data Active Medications Enoxaparin Sodium (Enoxaparin Sodium 40 Mg/0.4 Ml Syringe) 40 mg SUBCUT Q24H [facility] Last Admin: 11/14/21 15:17 Dose: 40 mg Documented by: DARIN Folic Acid (Folic Acid 1 Mg Tablet) 1 mg PO DAILY [facility] Last Admin: 11/14/21 08:59 Dose: 1 mg Documented by: DARIN Thiamine HCl 100 mg/ Sodium (Chloride) 101 mls @ 202 mls/hr IV DAILY [facility] Last Infusion: 11/14/21 12:08 Dose: 0 mls/hr Documented by: KRIS Lactulose (Lactulose 20 Gm/30 Ml Solution) 30 gm PO BID [facility] Last Admin: 11/14/21 22:14 Dose: 30 gm Documented by: ANIBAL Lorazepam (Lorazepam 1 Mg Tablet) 1 mg PO DAILY [facility] Last Admin: 11/13/21 10:11 Dose: 1 mg Documented by: DARIN Pantoprazole Sodium (Pantoprazole Sodium 40 Mg/10 Ml Vial) 40 mg IVPUSH DAILY@0630 [facility] Last Admin: 11/15/21 05:43 Dose: 40 mg Documented by: ANIBAL Pharmacy Consult (Consult Rx Perform Med Rec) 1 each MISCELLANE ONCE PRN PRN Reason: Consult order Propranolol HCl (Propranolol Hcl 10 Mg Tablet) 10 mg PO TID [facility]; Protocol Last Admin: 11/14/21 22:15 Dose: 10 mg Documented by: ANIBAL Sodium Chloride (0.9 % Sodium Chloride Flush 3 Ml Syringe) 3 ml IVFLUSH QSHIFT [facility] Last Admin: 11/14/21 22:17 Dose: 3 ml Documented by: ANIBAL Spironolactone (Spironolactone 25 Mg Tablet) 50 mg PO DAILY [facility]; Protocol Last Admin: 11/14/21 08:59 Dose: 50 mg Documented by: DARIN Topiramate (Topiramate 100 Mg Tablet) 200 mg PO BID [facility] Last Admin: 11/14/21 22:13 Dose: 200 mg Documented by: ANIBAL Labs CBC & Chem 7: 11/12/21 06:41 11/15/21 05:09 Labs: Laboratory Results - last 24 hr 11/13/21 11/14/21 11/14/21 05:53 04:51 13:41 Anion Gap Estim Creat Clear Calc Estimated GFR Random Glucose Calcium Total Bilirubin 4.2 H Direct Bilirubin 3.0 H AST 37 D ALT 12 Alkaline Phosphatase 208 H D Total Protein 6.7 Albumin 3.5 Vitamin B12 827 Folate 3.0 L Urine Osmolality Ur Random Sodium < 20.0 Urine Creatinine 257.19 Urine Microalbumin 39.0 Microalb/Creat Ratio 15.1 C. difficile Tox B Gene 11/14/21 11/14/21 11/15/21 13:41 16:45 05:09 Anion Gap 13 Estim Creat Clear Calc 73.9 Estimated GFR 59 Random Glucose 124 H Calcium 9.1 Total Bilirubin Direct Bilirubin AST ALT Alkaline Phosphatase Total Protein Albumin Vitamin B12 Folate Urine Osmolality 649 Ur Random Sodium Urine Creatinine Urine Microalbumin Microalb/Creat Ratio C. difficile Tox B Gene NEGATIVE Microbiology Microbiology Results: Microbiology 11/12/21 10:54 Gram Stain - Final Abdominal Fluid Anaerobic Culture - Preliminary No growth to date. Body Fluid Culture - Final No growth after 2 days Assessment and Plan (1) NATHANIEL (acute kidney injury): Status: Acute (2) Anasarca: Status: Acute Plan 56-year-old male with significant alcohol abuse history in the past, quit alcohol 1 month ago, htn , hlp , cirrosis suspected probable alcohol related , prostate cancer hx s/p radiation 1 year ago , anxiety , depression. 1.? toxic metabolic encephalopathy(hepatic encephalopathy)secondary to advanced liver disease / cirrhosis ? (suspected alcohol related). mental status seems similar as yesterday His hepatitis C serology-was [place] last time. hepatitis serology pending Abdominal ultrasound repeat abd us doppler. Bilirubin lft's elevated from baseline probably related to advanced liver disease. hypoalbuminemia sec to liver dis and poor oral intake mild coagulopathy sec to advanced liver dis. Quit alcohol 1 month ago Monitor I&O Daily weight added? echo also. s/p paracentesis -labs sent GI evaluation- noted -ct abd sone: seems fine except musocal thicking doppler -shows patent portal and hepatic viens continue Thiamine, folic acid,intermittent refusing Lactulose,? IV albumin, neuro checks, CIWA scale. will give lactulose prx1 dose getting iv albumin q6hr, fact checker consult. 2. mild possible nathaniel: hold Lasix, spironolactonefor today abd ct -The kidneys are normal in size, shape, and attenuation. No hydronephrosis, hydroureter, or calculi seen. No perinephric stranding. ? bladder scan will add renal sono nephro eval 2.Hypertension: Continue propranolol 3.Anxiety/depression:? Since patient is currently confused, we will hold off risperidone, gabapentin, Ativan for today and started 1 in the morning at a low dose-discussed with psych. HLD:? Hold off pravastatin, will monitor LFT in the morning and decide further use. DVT prophylaxis:? With subQ [employer] Quality Stroke Does the patient have a stroke diagnosis?: No VTE Prior VTE?: No VTE Risk Level:: Medical - moderate - high VTE Device Contraindication: N/A - Device Ordered VTE Drug Contraindication: N/A - Med Ordered
[2021-11-15] MEDS: 0.9 % Sodium Chloride Flush 3 ML SYRINGE IVFLUSH ×3 (08:59→23:46)
[2021-11-15] MEDS: Albumin Human 25 % 100 ML IV ×3 (08:59→23:27)
[2021-11-15] MEDS: Folic Acid 1 MG TABLET PO (09:00)
[2021-11-15] MEDS: Propranolol HCL 10 MG TABLET PO ×2 (09:00→23:23)
[2021-11-15] MEDS: Topiramate 100 MG TABLET 200 MG PO ×2 (09:00→23:23)
--- NOTE | 2021-11-15 11:17 | MHC.CLN ---
NUTRITION CONSULT FOR POOR INTAKE. INTAKE VARIABLE X 2 DAYS WITH MOST MEALS LESS THAN 50%. PATIENT WITH ASCITES AND RECEIVED PARACENTESIS. DIET=REGULAR. ADDING ENSURE BID TO PROMOTE NUTRITIONAL INTAKE. SUPPLEMENT PROVIDES 700 KCAL, 40 G PROTEIN.
--- NOTE | 2021-11-15 11:28 | P.PNNP_ITS ---
Subjective Subjective Date of Service: 11/15/21 Interval history: Events noted. All recent data reviewed. D/W Med Attending Physical Exam 2 Verdana 4l Vital Signs: Verdana 4d Verdana 4d Vital Signs: Verdana 4d Verdana 4Bd Last Vital Signs Verdana 4d Ordnance Artificer New 4d Ordnance Artificer New 4d Temp 98.1 F 11/15/21 07:59 Ordnance Artificer New 4d Pulse 62 11/15/21 09:31 Ordnance Artificer New 4d Resp 18 11/15/21 07:59 BP 121/60 11/15/21 09:31 Pulse Ox 97 11/15/21 09:31 BMI result Body Mass Index 30.4 Const: General: no acute distress Neck: Neck: Yes supple Resp: Auscultation: diminished lung sounds Cardio: Rate: regular rate GI: Other: Ascites + Neuro: General: moves all extremities Objective Data Labs CBC & Chem 7: 11/12/21 06:41 11/15/21 05:09 Labs: Laboratory Results - last 24 hr 11/13/21 11/14/21 11/14/21 05:53 13:41 13:41 Sodium Potassium Chloride Carbon Dioxide Anion Gap BUN Creatinine Estim Creat Clear Calc Estimated GFR Random Glucose Calcium Vitamin B12 827 Folate 3.0 L Urine Osmolality 649 Ur Random Sodium < 20.0 Urine Creatinine 257.19 Urine Microalbumin 39.0 Microalb/Creat Ratio 15.1 C. difficile Tox B Gene 11/14/21 11/15/21 16:45 05:09 Sodium 137 Potassium 3.4 Chloride 104 Carbon Dioxide 23 Anion Gap 13 BUN 16 Creatinine 1.26 Estim Creat Clear Calc 73.9 Estimated GFR 59 Random Glucose 124 H Calcium 9.1 Vitamin B12 Folate Urine Osmolality Ur Random Sodium Urine Creatinine Urine Microalbumin Microalb/Creat Ratio C. difficile Tox B Gene NEGATIVE Microbiology Microbiology Results: Microbiology 11/12/21 10:54 Abdominal Fluid Gram Stain - Final 11/12/21 10:54 Abdominal Fluid Anaerobic Culture - Preliminary No growth to date. 11/12/21 10:54 Abdominal Fluid Body Fluid Culture - Final No growth after 2 days 11/11/21 12:49 Blood - Venous Blood Culture - Preliminary No growth after 48 hours. 11/11/21 12:44 Blood - Venous Blood Culture - Preliminary No growth after 48 hours. Procedures Date of Service Date of Service: 11/15/21 Assessment & Plan Assessment and plan (1) NATHANIEL (acute kidney injury): Status: Acute Assessment and Plan: Acute Kidney Injury due to compromise in renal perfusion Urine sodium < 20; No hydronephrosis by imaging Diuretics on hold; 25 % Albumin 25 Gram 6 hourly X 3 days Supportive care. Labs AM; Shall closely follow up Time Spent With Patient Time: Total time spent is greater than 50% in coordination of care (as documented) at patient's floor/unit and/or counseling patient: Progress Note: Quality Stroke Does the patient have a stroke diagnosis?: No
--- NOTE | 2021-11-15 11:44 | MHC.CM.PN ---
Addendum entered by Lor Kamara RN 11/15/21 12:55: PER HOSPITALIST PT NOT ABLE TO D/C AMA D/T METABOLIC ENCEPHALOPATHY, CM SPOKE W/PT AND S.O, PT NOW WILLING TO STAY AND CONT TX W/PLAN TO RE-EVAL IN AM. Original Note: CM CONTACTED PT'S S.O. KARLENE [phone] WHOM HE LIVES W/TO LET HER KNOW PT IS DISCHARGING AGAINST MEDICAL ADVICE AND THAT HOSPITALIST WOULD LIKE PT TO STAY FOR CONT'D TX, KARLENE REPORTED SHE WILL CALL PT AND CM WILL FOLLOW-UP W/PT AND/OR KARLENE.
[2021-11-15] MEDS: Thiamine HCL 100 MG in 0.9 % Sodium Chloride 100 ML 202 MG IV (12:50)
[2021-11-15] MEDS: Enoxaparin Sodium 40 MG/0.4 ML SYRINGE SUBCUT (16:39)
--- NOTE | 2021-11-15 18:11 | PC.NURSE ---
Addendum entered by Daxa Martinez RN 11/15/21 18:15: Daughter in law phone number for contact [phone]. Original Note: Pt daughter in law called for update. Pt okayed to discuss status wih daughter in law Susie Rico Nursing Forest Scientist aware. stated pt cannot leave AMA. Daughter in law will be in contact tomorrow.
[2021-11-15] MEDS: Lactulose 20 GM/30 ML SOLUTION 30 GM PO (23:24)
[2021-11-16] VITALS (8 sets, daily range): BP systolic 102–139; BP diastolic 52–65; PULSE 54–61; RESP 15–18; TEMP 36.1–36.6; O2SAT 94–99
[2021-11-16] MEDS: Pantoprazole Sodium 40 MG/10 ML VIAL IVPUSH (06:07)
[2021-11-16] MEDS: Albumin Human 25 % 100 ML IV ×3 (06:10→16:20)
[2021-11-16 06:39] LABS: Ammonia 64 umol/L (13-55)
[2021-11-16 06:49] LABS: Hematocrit 28.7 % (42.0-52.0); Hemoglobin 9.5 g/dl (14.0-18.0); Mean Corpuscular HGB Conc 33.1 g/dl (31.0-36.0); Mean Corpuscular Hemoglobin 30.8 pg (27.0-33.0); Mean Corpuscular Volume 93.2 fL (80.0-98.0); Mean Platelet Volume 10.8 fL (9.4-12.4); Platelet Count 190 X10*3/uL (160-400); Red Blood Count 3.08 X10*6/uL (4.60-5.80); Red Cell Distribution Width 15.9 % (11.0-16.0)
[2021-11-16 07:00] LABS: Alanine Aminotransferase 14 U/L (0-40); Albumin Level 3.9 g/dL (3.5-5.0); Alkaline Phosphatase 198 U/L (39-117); Anion Gap 12 (12-20); Aspartate Amino Transferase 59 U/L (5-37); Bilirubin Direct 3.3 mg/dL (0.0-0.5); Bilirubin Total 5.1 mg/dL (0.0-1.0); Blood Urea Nitrogen 17 mg/dL (9-16); Calcium 9.1 mg/dL (8.4-10.2); Carbon Dioxide 22 mmol/L (22-29); Chloride 105 mmol/L (96-108); Creatinine Clr Calc Pharmacy 84.6; Estimated Glomerular Filt Rate > 60; Glucose Random 120 mg/dL (60-115); Potassium 3.2 mmol/L (3.3-5.1); Sodium 136 mmol/L (135-145); Total Protein 7.1 g/dL (6.5-8.0)
[2021-11-16] MEDS: Lactulose 20 GM/30 ML SOLUTION 30 GM PO ×2 (07:34→19:59)
[2021-11-16] MEDS: Topiramate 100 MG TABLET 200 MG PO ×2 (07:34→19:59)
[2021-11-16] MEDS: Folic Acid 1 MG TABLET PO (07:34)
[2021-11-16] MEDS: Propranolol HCL 10 MG TABLET PO (07:34)
[2021-11-16] MEDS: 0.9 % Sodium Chloride Flush 3 ML SYRINGE IVFLUSH ×3 (07:35→23:57)
[2021-11-16] MEDS: Thiamine HCL 100 MG in 0.9 % Sodium Chloride 100 ML 202 MG IV (07:43)
--- NOTE | 2021-11-16 09:54 | P.PNNP_ITS ---
Subjective Subjective Date of Service: 11/16/21 Interval history: Events noted. All recent data reviewed. D/W Med Attending Physical Exam 2 Verdana 4l Vital Signs: Verdana 4d Verdana 4d Vital Signs: Verdana 4d Verdana 4Bd Last Vital Signs Verdana 4d Merchandise Stocker New 4d Merchandise Stocker New 4d Temp 97.3 F 11/16/21 07:32 Merchandise Stocker New 4d Pulse 61 11/16/21 07:32 Merchandise Stocker New 4d Resp 15 11/16/21 07:32 BP 139/60 11/16/21 07:32 Pulse Ox 99 11/16/21 07:32 BMI result Body Mass Index 30.4 Const: General: no acute distress Neck: Neck: Yes supple Resp: Auscultation: diminished lung sounds Cardio: Rate: regular rate GI: Palpation (GI): Soft to palpation Neuro: General: moves all extremities Objective Data Labs CBC & Chem 7: 11/16/21 06:11 11/16/21 06:11 Labs: Laboratory Results - last 24 hr 11/16/21 11/16/21 11/16/21 06:11 06:11 06:11 WBC 14.0 H RBC 3.08 L Hgb 9.5 L Hct 28.7 L MCV 93.2 MCH 30.8 MCHC 33.1 RDW 15.9 Plt Count 190 MPV 10.8 Absolute Nucleated RBC 0.000 Nucleated RBC % (auto) 0.0 Sodium 136 Potassium 3.2 L Chloride 105 Carbon Dioxide 22 Anion Gap 12 BUN 17 H Creatinine 1.10 Estim Creat Clear Calc 84.6 Estimated GFR > 60 Random Glucose 120 H Calcium 9.1 Total Bilirubin 5.1 H Direct Bilirubin 3.3 H AST 59 H ALT 14 Alkaline Phosphatase 198 H Ammonia 64 H Total Protein 7.1 Albumin 3.9 Microbiology Microbiology Results: Microbiology 11/12/21 10:54 Abdominal Fluid Gram Stain - Final 11/12/21 10:54 Abdominal Fluid Anaerobic Culture - Preliminary No growth to date. 11/12/21 10:54 Abdominal Fluid Body Fluid Culture - Final No growth after 2 days 11/11/21 12:49 Blood - Venous Blood Culture - Preliminary No growth after 48 hours. 11/11/21 12:44 Blood - Venous Blood Culture - Preliminary No growth after 48 hours. Procedures Date of Service Date of Service: 11/16/21 Assessment & Plan Assessment and plan (1) NATHANIEL (acute kidney injury): Status: Acute Assessment and Plan: Acute Kidney Injury due to compromise in renal perfusion Urine sodium < 20; No hydronephrosis by imaging Diuretics on hold; Was getting IV Albumin Renal functions better; Can re start Spironolactone 25 mg tomorrow C/W rest of current supportive care. Labs AM; Shall closely follow up Time Spent With Patient Time: Total time spent is greater than 50% in coordination of care (as documented) at patient's floor/unit and/or counseling patient: Progress Note: Quality Stroke Does the patient have a stroke diagnosis?: No
--- NOTE | 2021-11-16 10:39 | PC.NURSE ---
Addendum entered by Daxa Martinez RN 11/16/21 10:41: RN told pt if feeling weak or dizzy to sit down and ring call andres for assistance. Original Note: Pt reevaluated and determined to be low fall risk. Talked to Pt, they felt he was steady on his feet. Camera removed. will continue to monitor.
[2021-11-16] MEDS: Potassium Chloride ER 20 MEQ TAB.ER.PRT 40 MEQ PO (10:56)
--- NOTE | 2021-11-16 11:22 | MHC.CM.PN ---
CM CONTACTED PT'S MOM/HCP DUYEN AT 11:15AM [phone] AND UPDATED HER ON PT'S DISPO WELL LETTING HER KNOW PT DOES NOT WANT TO CHANGE HIS HCP AND THAT HE DOES NOT WANT US TO SPEAK TO HIS [id number] JAK AGAIN, JOHNNIE HAS REQUESTED MIGUEL LET JAK KNOW AND SHE HAS AGREED, DUYEN ALSO REPORTS SHE HAS A NEW CELL PHONE [phone].
--- NOTE | 2021-11-16 15:02 | P.PNIM_ITS ---
Subjective Subjective Date of Service: 11/16/21 Interval History: the patient was seen and evaluated this morning Laying in bed, feels improvement but not fully recovered yet Wants to go home Has drop in his hemoglobin, hypokalemia and worsen liver enzymes this morning No reported other overnight events. Systemic review: No fever, chills but has generalized weakness No chest pain, palpitation No shortness of breath or coughing No abdominal pain, nausea or vomiting but mild abdominal distension No urinary symptoms Physical Exam Verdana 4l Vital Signs: Verdana 4d Verdana 4d Vital Signs: Verdana 4d Verdana 4Bd Last Vital Signs Verdana 4d [employer]fer [employer] Worker New 4d Wa[employer] Worker New 4d Temp 97 F 11/16/21 11:56 Wafer Line Worker New 4d Pulse 59 11/16/21 11:56 [employer] Line Worker New 4d Resp 18 11/16/21 11:56 BP 120/58 L 11/16/21 11:56 Pulse Ox 94 11/16/21 11:56 BMI result Body Mass Index 30.4 Const: Other: Constitutional : Alert, interactive, not in distress Neck : Normal inspection, Supple Cardiovascular : RRR, S1 S2, no lower extremity edema Respiratory : Good bilateral air entry, no crackles, wheezes or rhonchi Gastrointestinal: soft, lax, Normal bowel sounds, Non tender, abdominal mildly distended with [id number] amount of ascites, Skin : Warm, Dry Neurological : Alert & oriented to self and place, mildly slow responses No focal deficit Objective Data Active Medications Enoxaparin Sodium (Enoxaparin Sodium 40 Mg/0.4 Ml Syringe) 40 mg SUBCUT Q24H [facility] Last Admin: 11/15/21 16:39 Dose: 40 mg Documented by: MARCO ANTONIO Folic Acid (Folic Acid 1 Mg Tablet) 1 mg PO DAILY [facility] Last Admin: 11/16/21 07:34 Dose: 1 mg Documented by: MARCO ANTONIO Thiamine HCl 100 mg/ Sodium (Chloride) 101 mls @ 202 mls/hr IV DAILY [facility] Last Infusion: 11/16/21 08:53 Dose: 0 mls/hr Documented by: MARCO ANTONIO Albumin Human (Kedbumin 25 %) 100 mls @ 100 mls/hr IV Q6H [facility] Stop: 11/16/21 17:59 Last Infusion: 11/16/21 12:10 Dose: 0 mls/hr Documented by: MARCO ANTONIO Lactulose (Lactulose 20 Gm/30 Ml Solution) 30 gm PO BID [facility] Last Admin: 11/16/21 07:34 Dose: 30 gm Documented by: MARCO ANTONIO Lorazepam (Lorazepam 1 Mg Tablet) 1 mg PO DAILY [facility] Last Admin: 11/13/21 10:11 Dose: 1 mg Documented by: DARIN Pantoprazole Sodium (Pantoprazole Sodium 40 Mg/10 Ml Vial) 40 mg IVPUSH DAILY@0630 [facility] Last Admin: 11/16/21 06:07 Dose: 40 mg Documented by: ANIBAL Pharmacy Consult (Consult Rx Perform Med Rec) 1 each MISCELLANE ONCE PRN PRN Reason: Consult order Propranolol HCl (Propranolol Hcl 10 Mg Tablet) 10 mg PO TID [facility]; Protocol Last Admin: 11/16/21 07:34 Dose: 10 mg Documented by: MARCO ANTONIO Sodium Chloride (0.9 % Sodium Chloride Flush 3 Ml Syringe) 3 ml IVFLUSH QSHIFT [facility] Last Admin: 11/16/21 07:35 Dose: 3 ml Documented by: MARCO ANTONIO Spironolactone (Spironolactone 25 Mg Tablet) 50 mg PO DAILY [facility]; Protocol Last Admin: 11/14/21 08:59 Dose: 50 mg Documented by: DARIN Topiramate (Topiramate 100 Mg Tablet) 200 mg PO BID [facility] Last Admin: 11/16/21 07:34 Dose: 200 mg Documented by: MARCO ANTONIO Labs CBC & Chem 7: 11/16/21 06:11 11/16/21 06:11 Labs: Laboratory Results - last 24 hr 11/16/21 11/16/21 11/16/21 06:11 06:11 06:11 MCV 93.2 MCH 30.8 MCHC 33.1 RDW 15.9 Plt Count 190 MPV 10.8 Absolute Nucleated RBC 0.000 Nucleated RBC % (auto) 0.0 Anion Gap 12 Estim Creat Clear Calc 84.6 Estimated GFR > 60 Random Glucose 120 H Calcium 9.1 Total Bilirubin 5.1 H Direct Bilirubin 3.3 H AST 59 H ALT 14 Alkaline Phosphatase 198 H Ammonia 64 H Total Protein 7.1 Albumin 3.9 Microbiology Microbiology Results: Microbiology 11/11/21 12:49 Blood Culture - Final Blood - Venous No growth after 5 days. 11/11/21 12:44 Blood Culture - Final Blood - Venous No growth after 5 days. 11/12/21 10:54 Gram Stain - Final Abdominal Fluid Anaerobic Culture - Preliminary No growth to date. Body Fluid Culture - Final No growth after 2 days Assessment and Plan (1) NATHANIEL (acute kidney injury): Status: Acute (2) Alcoholic cirrhosis of liver with ascites: Status: Acute (3) Acute metabolic encephalopathy: Status: Acute Plan 56-year-old male with significant alcohol abuse history in the past, quit alcohol 1 month ago, htn , hlp , cirrosis suspected probable alcohol related , prostate cancer hx s/p radiation 1 year ago , anxiety , depression. toxic metabolic encephalopathy(hepatic encephalopathy) secondary to advanced liver disease / cirrhosis Improving hepatitis serology negative, Abdominal ultrasound negative for hepatic vein thrombosis Bilirubin more elevated from baseline probably related to advanced liver disease. hypoalbuminemia sec to liver dis and poor oral intake mild coagulopathy sec to advanced liver dis. Quit alcohol 1 month ago Continue lactulose, goal of 2-3 bowel movements a day, avoid diarrhea Monitor I&O Daily weight added? echo also. s/p paracentesis on 11/12, no evidence of SBP GI evaluated the patient continue Thiamine, folic acid,intermittent refusing Lactulose To finish IV albumin ledge man consult. mild nathaniel: Improved To restart spironolactone abd ct -The kidneys are normal in size with no obstruction nephro eval Acute on chronic anemia HP dropped from 11 at time of presentation to 9.5 today Unclear if dilution at or related to blood loss To check occult blood Follow CBC Hypokalemia Replacement given, follow BMP Hypertension: Continue propranolol Anxiety/depression:? Since patient is currently confused, we will hold off risperidone, gabapentin, Ativan for today and started 1 in the morning at a low dose-discussed with psych. HLD:? Hold off pravastatin, will monitor LFT in the morning and decide further use. DVT prophylaxis:? Hold Lovenox, start SCDs Dispo, plan to discharge home if negative occult blood and no further drop in hemoglobin. Quality Stroke Does the patient have a stroke diagnosis?: No VTE Prior VTE?: No VTE Risk Level:: Medical - moderate - high VTE Device Contraindication: N/A - Device Ordered VTE Drug Contraindication: N/A - Med Ordered
[2021-11-17 03:18] VITALS: BP 127/60; PULSE 55; RESP 18; TEMP 36.4; O2SAT 96
[2021-11-17 06:07] LABS: Hematocrit 30.1 % (42.0-52.0); Mean Corpuscular HGB Conc 33.2 g/dl (31.0-36.0); Mean Corpuscular Hemoglobin 31.3 pg (27.0-33.0); Mean Corpuscular Volume 94.4 fL (80.0-98.0); Mean Platelet Volume 10.8 fL (9.4-12.4); Platelet Count 202 X10*3/uL (160-400); Red Blood Count 3.19 X10*6/uL (4.60-5.80); Red Cell Distribution Width 15.9 % (11.0-16.0); White Blood Count 15.2 X10*3/uL (4.8-10.8)
[2021-11-17] MEDS: Pantoprazole Sodium 40 MG/10 ML VIAL IVPUSH (06:19)
[2021-11-17 06:24] LABS: Alanine Aminotransferase 15 U/L (0-40); Albumin Level 4.2 g/dL (3.5-5.0); Alkaline Phosphatase 195 U/L (39-117); Anion Gap 14 (12-20); Aspartate Amino Transferase 71 U/L (5-37); Bilirubin Direct 3.3 mg/dL (0.0-0.5); Bilirubin Total 5.1 mg/dL (0.0-1.0); Blood Urea Nitrogen 18 mg/dL (9-16); Calcium 9.6 mg/dL (8.4-10.2); Carbon Dioxide 22 mmol/L (22-29); Chloride 104 mmol/L (96-108); Creatinine Clr Calc Pharmacy 82.4; Estimated Glomerular Filt Rate > 60; Glucose Random 103 mg/dL (60-115); Potassium 3.5 mmol/L (3.3-5.1); Sodium 136 mmol/L (135-145); Total Protein 7.6 g/dL (6.5-8.0)
[2021-11-17 07:22] VITALS: BP 129/63; PULSE 58; RESP 18; TEMP 36.8; O2SAT 98
[2021-11-17] MEDS: Topiramate 100 MG TABLET 200 MG PO (08:43)
[2021-11-17] MEDS: Propranolol HCL 10 MG TABLET PO (08:43)
[2021-11-17] MEDS: Spironolactone 25 MG TABLET 50 MG PO (08:44)
[2021-11-17] MEDS: Lactulose 20 GM/30 ML SOLUTION 30 GM PO (08:44)
[2021-11-17] MEDS: Folic Acid 1 MG TABLET PO (08:44)
--- NOTE | 2021-11-17 10:53 | P.PNNP_ITS ---
Subjective Subjective Date of Service: 11/17/21 Interval history: Events noted. All recent data reviewed Physical Exam Verdana 4l Vital Signs: Verdana 4d Verdana 4d Vital Signs: Verdana 4d Verdana 4Bd Last Vital Signs Verdana 4d [employer] Safety Compliance Leader New 4d [employer] Compliance Leader New 4d Temp 98.2 F 11/17/21 07:22 Product Safety Compliance Leader New 4d Pulse 58 11/17/21 07:22 Product Safety Compliance Leader New 4d Resp 18 11/17/21 07:22 BP 129/63 11/17/21 07:22 Pulse Ox 98 11/17/21 07:22 BMI result Body Mass Index 30.4 Const: General: no acute distress Neck: Neck: Yes supple Resp: Auscultation: diminished lung sounds Cardio: Rate: regular rate GI: Palpation (GI): Soft to palpation Neuro: General: moves all extremities Objective Data Labs CBC & Chem 7: 11/17/21 05:37 11/17/21 05:37 Labs: Laboratory Results - last 24 hr 11/17/21 11/17/21 11/17/21 05:37 05:37 05:37 WBC 15.2 H RBC 3.19 L Hgb 10.0 L Hct 30.1 L MCV 94.4 MCH 31.3 MCHC 33.2 RDW 15.9 Plt Count 202 MPV 10.8 Absolute Nucleated RBC 0.000 Nucleated RBC % (auto) 0.0 Sodium 136 Potassium 3.5 Chloride 104 Carbon Dioxide 22 Anion Gap 14 BUN 18 H Creatinine 1.13 Estim Creat Clear Calc 82.4 Estimated GFR > 60 Random Glucose 103 Calcium 9.6 Total Bilirubin 5.1 H Direct Bilirubin 3.3 H AST 71 H ALT 15 Alkaline Phosphatase 195 H Total Protein 7.6 Albumin 4.2 Microbiology Microbiology Results: Microbiology 11/11/21 12:49 Blood - Venous Blood Culture - Final No growth after 5 days. 11/11/21 12:44 Blood - Venous Blood Culture - Final No growth after 5 days. 11/12/21 10:54 Abdominal Fluid Gram Stain - Final 11/12/21 10:54 Abdominal Fluid Anaerobic Culture - Preliminary No growth to date. 11/12/21 10:54 Abdominal Fluid Body Fluid Culture - Final No growth after 2 days Procedures Date of Service Date of Service: 11/17/21 Assessment & Plan Assessment and plan (1) NATHANIEL (acute kidney injury): Status: Acute Assessment and Plan: Acute Kidney Injury due to compromise in renal perfusion Urine sodium < 20; No hydronephrosis by imaging Renal functions better/stable; Can re start Spironolactone 25 mg C/W rest of current supportive care. Labs AM; Shall closely follow up Time Spent With Patient Time: Total time spent is greater than 50% in coordination of care (as documented) at patient's floor/unit and/or counseling patient: Progress Note: Quality Stroke Does the patient have a stroke diagnosis?: No
[2021-11-17] MEDS: Thiamine HCL 100 MG in 0.9 % Sodium Chloride 100 ML 202 MG IV (10:59)
[2021-11-17] MEDS: 0.9 % Sodium Chloride Flush 3 ML SYRINGE IVFLUSH (11:00)
--- NOTE | 2021-11-17 11:19 | P.DS_ITS ---
DS: Providers Provider Date of Service: 11/17/21 Date of admission: 11/11/21 15:42 Primary care physician: Arben German MD Consults: 11/11/21 16:32 Consult to Gastroenterology Routine Consulting Provider: Lee White Reason for consultation: DECOmpensated liver disease Has provider been notified: No 11/14/21 08:13 Consult to Nephrology Routine Consulting Provider: Flash Chen Reason for consultation: liver cirrosis /nathaniel Has provider been notified: No DS: Diagnosis Discharge Diagnosis (1) NATHANILE (acute kidney injury): Status: Acute DS: Summary Hospital Course Hospital Course: patient was admitted for toxic metabolic encephalopathy due to hepatic encephalopathy from alcoholic cirrhosis and acute hepatitis. he was given lactulose, aldactone. he also had symptomatic ascites which were drained and were negative for sbp. he had mild NATHANIEL which resolved. mild acute on chronic anemia due to inflammation from hepatitis. patient is now back to baseline and will be discharged home. he should follow up with GI. Time Spent with Patient Time attestation: Total time spent providing and/or coordinating discharge services: Discharge coordination time: Greater than 30 minutes Quality: Stroke Does the patient have a stroke diagnosis?: No Physical Exam Verdana 4l Vital Signs: Verdana 4d Verdana 4d Vital Signs: Verdana 4d Verdana 4Bd Last Vital Signs Verdana 4d [employer]ty [employer] Cook New 4d [employer] Cook New 4d Temp 98.2 F 11/17/21 07:22 [employer]ty [employer] Cook New 4d Pulse 58 11/17/21 07:22 [employer] Cook New 4d Resp 18 11/17/21 07:22 BP 129/63 11/17/21 07:22 Pulse Ox 98 11/17/21 07:22 BMI result Body Mass Index 30.4 General: AO X 3, no acute distress Resp: CTA bilateral, no accessory muscles used CVS: S1,S2,RRR GI: soft, non tender, non distended Neuro: motor grossly intact, alert, resting tremor Psych: appropriate affect, appropriate insight DS: Data Data Completed and Pending Labs on day of discharge: Laboratory Results - last 24 hr 11/17/21 11/17/21 11/17/21 05:37 05:37 05:37 WBC 15.2 H RBC 3.19 L Hgb 10.0 L Hct 30.1 L MCV 94.4 MCH 31.3 MCHC 33.2 RDW 15.9 Plt Count 202 MPV 10.8 Absolute Nucleated RBC 0.000 Nucleated RBC % (auto) 0.0 Sodium 136 Potassium 3.5 Chloride 104 Carbon Dioxide 22 Anion Gap 14 BUN 18 H Creatinine 1.13 Estim Creat Clear Calc 82.4 Estimated GFR > 60 Random Glucose 103 Calcium 9.6 Total Bilirubin 5.1 H Direct Bilirubin 3.3 H AST 71 H ALT 15 Alkaline Phosphatase 195 H Total Protein 7.6 Albumin 4.2 Preliminary micro results at discharge 11/12/21 10:54 Anaerobic Culture - Preliminary Abdominal Fluid No growth to date. Discharge Plan Discharge Patient Disposition: Home, Self-Care Discharge Diagnosis: etoh hepatitis Referrals: Arben German MD [Primary Care Provider] - 1 Week Discharge Medications: Continued spironolactone 25 mg tablet 2 tab PO DAILY 0RF propranolol 10 mg tablet 1 tab PO TID 0RF pravastatin 20 mg tablet 1 tab PO BEDTIME 0RF topiramate [Topamax] 200 mg tablet 1 tab PO BID 0RF lorazepam [Ativan] 1 mg tablet 4 tab PO DAILY 0RF zolpidem [Ambien] 10 mg tablet 1 tab PO BEDTIME 0RF risperidone 0.5 mg tablet 1 tab PO BEDTIME 0RF pantoprazole 40 mg tablet,delayed release (DR/EC) 1 tab PO DAILY 0RF lactulose [Constulose] 10 gram/15 mL solution 30 ml PO TID 0RF Discontinued gabapentin 400 mg capsule 400 mg PO TID 0RF Discharge Orders: Discharge Order (Routine); Ordered 11/17/21 Ordered By: Gaston Solis Diet: advance to usual diet Activity on Discharge: As tolerated Stand Alone Forms: Patient Portal Discharge page Care Plan Goals: recovery Health Concerns: liver cirrhosis Plan of Treatment: avoid etoh, follow up with liver doctor, continue meds Assessment: see above
[2021-11-17 12:00] VITALS: BP 120/65; PULSE 64; RESP 18; TEMP 36.6; O2SAT 94
--- NOTE | 2021-11-17 13:54 | MHC.CM.PN ---
IMM 11/17/21, PT MEDICALLY CLEARED FOR D/C HOME NO SERVICES, PT'S MOTHER/HCP NOTIFIED WILL TRANSPORT PT.
[2021-11-20 17:02] LABS: Zinc 44 mcg/dL (60-130)
== END 2021-11-17 14:19 | disposition home or self-care (01) | DRG 432 ==
LOC: HO.ED 13:07 → HO.EDOVER 15:48 → HO.S3 11-12 20:53
PROVIDERS: Internal Medicine Gastroenterology; Internal Medicine Nephrology; Physician Assistant; Radiology Diagnostic Radiology; Student in an Organized Health Care Education/Training Program; Admitting Provider Internal Medicine; Emergency Provider Emergency Medicine; PCP Internal Medicine; Visit Provider Internal Medicine
PROC: 0W9G3ZZ Drainage of Peritoneal Cavity, Percutaneous Approach (ICD-10-PCS; principal; 2021-11-12 10:00)
DX: K70.31 Alcoholic cirrhosis of liver with ascites (principal); G92.8 Other toxic encephalopathy; N17.9 Acute kidney failure, unspecified; B17.9 Acute viral hepatitis, unspecified; K72.90 Hepatic failure, unspecified without coma; D64.9 Anemia, unspecified; E88.09 Other disorders of plasma-protein metabolism, not elsewhere classified; I10 Essential (primary) hypertension; E78.5 Hyperlipidemia, unspecified; F10.11 Alcohol abuse, in remission; F32.A Depression, unspecified; F41.9 Anxiety disorder, unspecified; Z20.822 Contact with and (suspected) exposure to COVID-19; Z79.899 Other long term (current) drug therapy
CPT/HCPCS: 36415; 49083; 74177; 76705; 80048; 80076; 82042; 82043; 82077; 82140; 82607; 82728; 82746; 82945; 83540; 83605; 83615; 83690; 83735; 83880; 83935; 84157; 84300; 84630; 85025; 85027; 85610; 85730; 86704; 86706; 86709; 86803; 87040; 87070; 87073; 87205; 87340; 87493; 87635; 89051; 93005; 93306; 93975; 96365; 96366; 96367; 96375; 97162; 99285; 99291; J0696; J1650; J1940; J3411; P9047; Q9967

== ENCOUNTER 2021-11-20 11:17 | Inpatient (IN) | payer MEDICARE, SELFPAY ==
--- NOTE | ~2021-11-20 | XR_ITS ---
EXAMINATION: XR CHEST CLINICAL INFORMATION: Altered mental status COMPARISON: June 25, 2021 TECHNIQUE: AP portable view of the chest was obtained. FINDINGS: There are small lung volumes. There appears be minor atelectatic change seen at the left base. No confluent parenchymal disease is seen. No pneumothorax or pleural effusion. Heart normal size. No evidence of pulmonary edema. Degenerative marginal spurring seen throughout the thoracic spine. XR/XR chest 1V IMPRESSION: No significant acute parenchymal disease.
--- NOTE | ~2021-11-20 | CT_ITS ---
EXAMINATION: CT HEAD WITHOUT CONTRAST CLINICAL INFORMATION: Status post fall with AMS COMPARISON: None TECHNIQUE: Contiguous axial imaging was performed from the skull base to vertex without intravenous administration of contrast. This CT examination was performed using dose optimization techniques as appropriate, variously including the following: *Automated exposure control *Adjustment of mA and/or kV according to patient size (this includes techniques or standardized protocols for targeted exams where dose is matched to indication/reason for exam; i.e. extremities or head) *Use of iterative reconstruction technique DLP: 552.02 mGy-cm FINDINGS: There is no evidence of acute intracranial hemorrhage or territorial infarction. No abnormal mass effect or midline shift is seen. [place] to white matter differentiation is well preserved. No extra-axial fluid collections are identified. The ventricles are normal in size. There is no abnormal attenuation within the brain parenchyma. The osseous structures and soft tissues are normal. The mastoid air cells and visualized portions of the paranasal sinuses are well aerated. Pterygoid plates intact. No significant abnormality of the temporomandibular joints is seen. CT/CT head/brain wo con IMPRESSION: No acute intracranial pathology.
--- NOTE | ~2021-11-20 | CT_ITS ---
EXAMINATION: CT CERVICAL SPINE WITHOUT CONTRAST CLINICAL INFORMATION: Status post fall. COMPARISON: None TECHNIQUE: CT cervical spine without intrathecal contrast. Coronal and sagittal reconstructions. This CT examination was performed using dose optimization techniques as appropriate, variously including the following: *Automated exposure control *Adjustment of mA and/or kV according to patient size (this includes techniques or standardized protocols for targeted exams where dose is matched to indication/reason for exam; i.e. extremities or head) *Use of iterative reconstruction technique DLP: 637.63 mGy-cm FINDINGS: Visualized portions of the paranasal sinuses and mastoid air cells are unremarkable. Carotid artery calcification is present. Pterygoid plates intact. No significant abnormality of the temporal mandibular joints identified. Paraspinal muscle fat planes are maintained. No abnormal prevertebral soft tissue swelling. No acute cervical spine fracture. There is some anterior vertebral body spurring seen C3-C6. No significant neural foraminal bony encroachment identified. CT/CT cervical spine wo con IMPRESSION: No acute cervical spine fracture.
--- NOTE | ~2021-11-20 | CT_ITS ---
EXAMINATION: CT ABDOMEN AND PELVIS WITHOUT CONTRAST CLINICAL INFORMATION: Jaundice with confusion and abdominal distention COMPARISON: November 13, 2021 TECHNIQUE: Multidetector volumetric imaging was performed from the superior aspect of the liver through the pubic symphysis. Sagittal and coronal reformatted images were obtained on the technologist's workstation. This CT examination was performed using dose optimization techniques as appropriate, variously including the following: *Automated exposure control *Adjustment of mA and/or kV according to patient size (this includes techniques or standardized protocols for targeted exams where dose is matched to indication/reason for exam; i.e. extremities or head) *Use of iterative reconstruction technique DLP: 1166 mGy-cm FINDINGS: LUNG BASES: There are a few lung cysts present at the right base. No significant parenchymal disease identified. No pericardial or pleural effusion. Coronary artery calcifications seen. LIVER, GALLBLADDER, AND BILIARY TREE: There is hepatomegaly present. There appears to be some nodularity to the liver contour consistent with hepatic cirrhosis. No focal mass identified. No intrahepatic bile duct dilatation is seen. The umbilical vein does not appear to be recanalized. There appears be vicarious excretion of contrast from previous IV injection within the gallbladder. No definite gallbladder wall thickening is appreciated and no definite calculi noted. PANCREAS: Unremarkable. SPLEEN: There is mild splenomegaly present with span of 13 cm. ADRENAL GLANDS: Unremarkable. KIDNEYS AND URETERS: The kidneys are normal in size, shape, and attenuation. No hydronephrosis, hydroureter, or calculi seen. No perinephric stranding. BLADDER: Unremarkable. GASTROINTESTINAL TRACT: No dilated loops of large or small bowel are evident. There is again noted to be moderate ascites present similar to previous study of November 13, 2021. No free air is identified. No definite pericolonic inflammatory changes seen however the right colon is difficult to evaluate due to its collapsed state, edema, and being adjacent to the free fluid. Appendix not identified. ABDOMINAL WALL: No significant hernia is appreciated. LYMPH NODES: No lymphadenopathy appreciated. VASCULAR: No abdominal aortic aneurysm. Mild aortoiliac calcified plaque. There are portal venous varices present including esophageal varices. PELVIC VISCERA: Unremarkable. OSSEOUS STRUCTURES: No acute suspicious destructive bony lesions identified. Significant degenerative disc disease L5-S1. CT/CT abdomen pelvis wo con IMPRESSION: Findings consistent with hepatic cirrhosis with hepatomegaly, moderate ascites, and portal venous varices.
--- NOTE | ~2021-11-20 | CT_ITS ---
EXAMINATION: CT HEAD WITHOUT CONTRAST CT CERVICAL SPINE WITHOUT CONTRAST CLINICAL INFORMATION: Fall, with laceration to the head COMPARISON: CT of the head and cervical spine 11/20/2021 TECHNIQUE: CT of the head and cervical spine were performed without intravenous contrast. Multiplanar reformats were rendered and reviewed. This CT examination was performed using dose optimization techniques as appropriate, variously including the following: *Automated exposure control *Adjustment of mA and/or kV according to patient size (this includes techniques or standardized protocols for targeted exams where dose is matched to indication/reason for exam; i.e. extremities or head) *Use of iterative reconstruction technique DLP: 1959 mGy-cm. (In total with CT of the pelvis) FINDINGS: CT head: No intracranial hemorrhage, large infarction, or mass lesion is seen. No extra-axial collection is appreciated. The ventricles are normal in size and configuration without evidence of hydrocephalus. The visualized paranasal sinuses and mastoid air cells are clear. CT cervical spine: Vertebral body heights are maintained. No acute fracture or dislocation. There is mild diffuse intervertebral disc space narrowing, most prominent at C4-C5 and C5-C6 with associated anterior and uncovertebral osteophyte formation. No significant neural foraminal narrowing. The posterior elements are intact. The paravertebral soft tissues are normal. The lung apices are clear. CT/CT cervical spine wo con IMPRESSION: CT head: No acute intracranial finding. CT cervical spine: No cervical spine fracture or traumatic malalignment identified.
--- NOTE | ~2021-11-20 | CT_ITS ---
EXAMINATION: CT PELVIS WITHOUT CONTRAST CLINICAL INFORMATION: History of fall. Pelvic pain. Suspected fracture. COMPARISON: CT of the abdomen and pelvis done on 11/20/2021. TECHNIQUE: Helical scanning was performed with submillimeter collimation through the pelvis. Sagittal and coronal multiplanar 2-D reconstructions were obtained. This CT examination was performed using dose optimization techniques as appropriate, variously including the following: *Automated exposure control *Adjustment of mA and/or kV according to patient size (this includes techniques or standardized protocols for targeted exams where dose is matched to indication/reason for exam; i.e. extremities or head) *Use of iterative reconstruction technique DLP: 668.53 mGy-cm FINDINGS: The bony alignments are intact. The cortices are intact. Moderate diffuse osteopenia is noted. Facet joint arthritic changes and degenerative spondylosis related changes are noted at the visualized lower lumbar spine. Osteoarthrosis is noted at both SI joints (left greater than right). Both SI joints as well as symphysis pubis is intact. Both acetabula are intact. The acetabular femoral alignments are intact. Both femoral neck and visualized proximal femurs are intact as well. Review of the visualized soft tissues of the included lower part of the abdomen and pelvis shows moderate amount of simple appearing free fluid within the lower abdomen extending into the pelvis. Postsurgical clips are noted within the prostate, unchanged. No evidence of any soft tissue hematoma identified within and around the pelvis and both hips. Incidental note is made of colonic diverticulosis. The bladder is moderately distended without evidence of any wall thickening. No evidence of any free fluid or free air. CT/CT pelvis wo con IMPRESSION: 1. Moderate diffuse osteopenia. 2. No CT evidence of displaced pelvic and/or hip fracture or significant soft tissue hematoma. 3. Incidental note is made of simple-appearing moderate volume free fluid within the visualized abdomen and pelvis, similar to CT of the abdomen and pelvis done yesterday.
--- NOTE | ~2021-11-20 | CT_ITS ---
EXAMINATION: CT HEAD WITHOUT CONTRAST CT CERVICAL SPINE WITHOUT CONTRAST CLINICAL INFORMATION: Fall, with laceration to the head COMPARISON: CT of the head and cervical spine 11/20/2021 TECHNIQUE: CT of the head and cervical spine were performed without intravenous contrast. Multiplanar reformats were rendered and reviewed. This CT examination was performed using dose optimization techniques as appropriate, variously including the following: *Automated exposure control *Adjustment of mA and/or kV according to patient size (this includes techniques or standardized protocols for targeted exams where dose is matched to indication/reason for exam; i.e. extremities or head) *Use of iterative reconstruction technique DLP: 1959 mGy-cm. (In total with CT of the pelvis) FINDINGS: CT head: No intracranial hemorrhage, large infarction, or mass lesion is seen. No extra-axial collection is appreciated. The ventricles are normal in size and configuration without evidence of hydrocephalus. The visualized paranasal sinuses and mastoid air cells are clear. CT cervical spine: Vertebral body heights are maintained. No acute fracture or dislocation. There is mild diffuse intervertebral disc space narrowing, most prominent at C4-C5 and C5-C6 with associated anterior and uncovertebral osteophyte formation. No significant neural foraminal narrowing. The posterior elements are intact. The paravertebral soft tissues are normal. The lung apices are clear. CT/CT head/brain wo con IMPRESSION: CT head: No acute intracranial finding. CT cervical spine: No cervical spine fracture or traumatic malalignment identified.
[2021-11-20 11:22] VITALS: BP 109/48; PULSE 60; RESP 16; TEMP 36.7; O2SAT 98; BMI 32.4
--- NOTE | 2021-11-20 11:32 | ECG_ITS ---
Test Reason : WEAKNESS Blood Pressure : / mmHG Vent. Rate : 062 BPM Atrial Rate : 062 BPM P-R Int : 200 ms QRS Dur : 114 ms QT Int : 482 ms P-R-T Axes : 040 -13 013 degrees QTc Int : 490 ms Normal sinus rhythm Prolonged QT Abnormal ECG When compared with ECG of 11-NOV-2021 13:00, QT has lengthened Referred By: Gloria Vora Electronically Signed By:COREEN BRADEN
--- NOTE | 2021-11-20 11:43 | ED_ITS ---
HPI - Weakness General Chief complaint: Fall Stated complaint: WEAKNESS W/FALL, UNABLE TO AMB,ALTERED,JAUNDICE Time Seen by Provider: 11/20/21 11:31 Source: patient, family (Mother) and EMS Mode of arrival: EMS Limitations: altered mental status History of Present Illness HPI Narrative: 56-year-old male with a past medical history significant alcohol abuse in the past, decompensated alcoholic liver cirrhosis with recurrent large volume ascites requiring paracentesis currently on lactulose and spironolactone per ria taking as prescribed, acute hepatitis, fatty liver, HTN, HLD, prostate cancer s/p radiation, anxiety/depression who was recently admitted here on 11/11/2021 and discharged on 11/17/2021 presenting to the ED via EMS after his fiancee called EMS twice today. The 1st time was at 06:30 when the patient got up to go to the bathroom from his bed and he literally just fell to the ground the ria reports. She is unsure if he hit his head although she believes he might of due to he was against the wall although she is sure that he did not lose consciousness. There was no prolonged down time due to filexye called EMS and they came right away around 630 in the morning. Patient initially refused EMS. Then the kikae was concerned due to his weakness continued and he was unable to walk or take care of himself for the past 2 days therefore she called EMS for 2nd time. She reports that he normally walks with a walker although he is unable to even do this. She reports that he also has a bruise on his back that she is unsure how he obtained the bruise. And he also has a rash in his private area that he has also been scratching per the kikae. She reports associated confusion. Patient is a poor historian and on arrival with EMS he is alert and oriented to self and place only. Pt and fiancee denies any measured fevers, shortness of breath, cough, chest pain, nausea/vomiting, focal weakness or any other symptoms complaints or concerns that she is aware of. MD Complaint: generalized weakness and difficulty walking Onset (ago): day(s) (2) Duration: constant and progressively worsening Location: generalized Severity: severe Relieving factors: none Associated symptoms: confusion, easy bruising and rash Related Data Home Medications Medication Instructions Recorded Confirmed lactulose 10 gram/15 mL oral 30 ml PO TID 11/11/21 11/20/21 solution (Constulose) lorazepam 1 mg tablet (Ativan) 4 tab PO DAILY 11/11/21 11/20/21 pantoprazole 40 mg tablet,delayed 1 tab PO DAILY 11/11/21 11/20/21 release pravastatin 20 mg tablet 1 tab PO BEDTIME 11/11/21 11/20/21 propranolol 10 mg tablet 1 tab PO TID 11/11/21 11/20/21 risperidone 0.5 mg tablet 1 tab PO BEDTIME 11/11/21 11/20/21 spironolactone 25 mg tablet 2 tab PO DAILY 11/11/21 11/20/21 topiramate 200 mg tablet (Topamax) 1 tab PO BID 11/11/21 11/20/21 zolpidem 10 mg tablet (Ambien) 1 tab PO BEDTIME 11/11/21 11/20/21 gabapentin 400 mg capsule 1 cap PO TID 11/20/21 11/20/21 (Neurontin) Allergies Allergy/AdvReac Type Severity Reaction Status Date / Time Fish Containing Products Allergy Severe THROAT Verified 11/13/21 05:34 SWELLING peanut [Peanut] Allergy Severe THROAT Verified 11/13/21 05:34 SWELLING Review of Systems Verdana 4l Review of Systems: Verdana 4d Verdana 4d Constitutional : Positive fatigue/malaise, No Weight loss, No Fever, No Chills, No Night Sweats ENT/Mouth : No Hearing loss, No Ear Pain, No Nasal Congestion, No Sinus Pain, No Hoarseness, No sore throat, No Rhinorrhea, No Swallowing DifficultyDifficulty Eyes: No Eye Pain, No Swelling, No Redness, No Foreign Body, No Discharge, No Vision Changes Cardiovascular : No Chest Pain, No SOB, No Dyspnea on Exertion, No Orthopnea, No Edema, No Palpitations Respiratory : No Cough, No Sputum, No Wheezing, No Smoke Exposure, No Dyspnea Gastrointestinal : Positive abdominal distension, No Nausea, No Vomiting, No Diarrhea, No Constipation, No abdominal Pain, No Hematochezia, No Melena Genitourinary : no irregular bleeding, No Dysuria, No Urinary Frequency, No Hematuria, No Urinary Incontinence, No Urgency, No Flank Pain, No Urinary Flow Changes, No Hesitancy Musculoskeletal : No joint pain, No Myalgias, No Joint Swelling Skin : Positive jaundice and groin rash, No Skin Lesions Neuro : Positive general weakness with falls, No Numbness, No Paresthesias, No Loss of Consciousness, No Dizziness, No Headache Psych : No Anxiety/Panic, No Depression, No SI/HI/AH/VH, No Social Issues, Heme/Lymph: Positive bruising, No Bleeding,No Lymphadenopathy Endocrine : No Polyuria, No Polydipsia, No Temperature Intolerance Yes all other systems are reviewed and are negative [facility] Past Medical History Attestation statement: The following information was validated with the patient. Medical History (Updated 11/20/21 @ 17:18 by Haim Pratt MD) Alcoholic cirrhosis of liver with ascites Anxiety Depression Hepatic cirrhosis Hyperlipidemia Hypertension Prostate cancer Social History Social History Household Members: Spouse [facility] Alcohol intake: unknown Patient Tobacco Use Status: Tobacco use Unknown Tobacco use type: Cigarette Use of substances other than those prescribed or required for medical reasons: Unknown Advance Directives: Yes Advance Directives on File: Yes Advance Directives Date on File: 11/11/21 service: No Current occupational status: disabled Physical Exam Verdana 4l Vital Signs: Verdana 4d Verdana 4d Vital Signs: Verdana 4d Verdana 4Bd Last Vital Signs Verdana 4d Price Clerk New 4d Price Clerk New 4d Temp 98.5 F 11/20/21 14:34 Price Clerk New 4d Pulse 58 11/20/21 14:34 Price Clerk New 4d Resp 14 11/20/21 14:34 BP 105/53 L 11/20/21 14:34 Pulse Ox 97 11/20/21 14:34 BMI result Body Mass Index 32.4 vital signs have been reviewed as normal and appeared to be correct. Blood pressure 109/48 Heart rate normal. Respiration rate normal. Temperature normal. Oxygen saturation normal. Appearance: Lethargic. Confused. No acute distress. Head: Normal external exam. Normocephalic. Atraumatic. No Lucas signs noted. No raccoon eyes noted Eyes: PERRLA. EOMI. Conjunctiva normal. Scleral icterus noted bilaterally. Eyelids normal. ENT: EAC normal. TM's Normal. No septal hematoma noted. No hemotympanum noted. Pharynx normal. Uvula midline. Dry mucous membranes. No trismus noted. No drooling noted. No muffled voice noted. Neck: Normal inspection. Neck supple. FROM. No adenopathy. Thyroid Normal. No meningeal signs. No neck mass noted. CVS: Normal heart rate and rhythm. Heart sound normal. Pulses normal throughout. No murmurs/rales/gallops. Respiratory: No respiratory distress. Painless inspiration. Breath sounds normal. No wheezes/rales/rhonchi noted. Chest nontender. No accessory muscle usage noted or decreased air movement noted. Abdomen: Rounded, Soft and nontender. Bowel sounds normal in all 4 quadrants. Positive abdominal distension noted. No organomegaly noted. No visible injury noted. Back: No CVA tenderness. Full range of motion noted. No rashe s/lesion/induration/fluctuance or signs of infection noted. Nontender. Skin: Skin warm and dry. Patient noticed to be jaundiced. Patient noted to have some bruising on the chest and the back no obvious signs of trauma. Poor skin turgor. To the groin patient noted to have a mild fungal rash mild erythema noted. No streaking/induration/fluctuance or drainage noted at this time. No additional lesions/lacerations noted. Extremities: No lower extremity edema. No calf tenderness is noted. Extremities exhibit normal range of motion. Extremities nontender. Neuro: Confused. Global weakness no focal weakness noted. No sensory deficit. Reflexes normal. No focal neuro deficits noted. Vascular: + radial pulses/+ 2 distal pedal pulses/+2 dorsalis pedis b/l. Normal cap refill. No cyanosis noted to upper extremity nails and lower extremity toes nails. Course Course Course Narrative: 12pm - 56-year-old male with a past medical history significant for alcohol abuse in the past, decompensated alcoholic liver cirrhosis with recurrent large volume ascites requiring paracentesis currently on lactulose and spironolactone per ria taking as prescribed due to she gives him some medications daily, acute hepatitis, fatty liver, hypertension, hyperlipidemia, prostate cancer status post radiation, anxiety/depression who was recently admitted here on 10/22/2021 and discharged on 11/17/2021 presenting to the ED with increased general weakness/confusion and falls despite using his walker for the past 2 days worse today per the fiancee Ethalee. - On exam patient is confused and lethargic and noted to be jaundice with scleral icterus no focal weakness is noted. Noted to be mildly hypotensive at 109/48 otherwise all other vitals are within normal limits. Concern for hepatic encephalopathy. Plan: Labs, lactic acid, blood cultures, chest x-ray, CT scan of brain chest cervical spine, CT scan abdomen pelvis IV contrast, UA, COVID swab, EKG. Provide a L of IV fluids and 20 mg of lactulose and re-evaluate. Reevaluation(s) Reevaluation #1: - white blood cell count [id number] - patient with mild baseline anemia mild decreased when compared to prior H&H today at 9.4/28.0 - sodium 130 this is new when compared to prior - carbon dioxide 20 - BUN/creatinine 31/1.55 this is increased when compared to prior - total bilirubin 3.9 improved when compared to prior - AST 61 improved when compared to prior - alkaline phosphate 230 increased when compared to prior - ammonia 32 normal - lipase 186 improved when compared to prior - negative ETOH level - negative COVID - otherwise all other labs are within normal limits - EKG is normal sinus rhythm with prolonged QT otherwise no acute ischemic changes are noted similar when compared to prior. - patient already received 1 L of IV fluids this will help the patient's hyp onatremia and his NATHANIEL. - he is currently in CAT scan at this time receiving his CT scan of brain/cer vical spine/abdomen and pelvis without contrast Time: 13:15 Reevaluation #2: - CT scan of brain/cervical spine within normal limits. Chest x-ray within normal limits. CT scan of abdomen and pelvis without IV contrast due to p atient's NATHANIEL revealed consistent hepatic cirrhosis with hepatomegaly and moderate ascites and portal venous varices otherwise no other acute processes. - therefore at this time will admit for metabolic hepatic encephalopathy, falls, weakness, NATHANIEL Time: 15:33 Reevaluation #3: Will admit patient to Dr. Pratt at this time. ria, patient and mother who is healthcare proxy are agreeable. Time: 16:04 [facility] - Weakness Medical Records Attestation: I reviewed the patient's medical records. Lab Data Attestation: I reviewed the patient's lab results. Result diagrams: 11/20/21 12:05 11/20/21 12:02 Labs: Lab Results 11/20/21 11/20/21 11/20/21 Range/Units 12:02 12:02 12:02 WBC (4.8-10.8) X10*3/uL RBC (4.60-5.80) X10*6/uL Hgb (14.0-18.0) g/dl Hct (42.0-52.0) % MCV (80.0-98.0) fL MCH (27.0-33.0) pg MCHC (31.0-36.0) g/dl RDW (11.0-16.0) % Plt Count (160-400) X10*3/uL MPV (9.4-12.4) fL Immature Gran % (Auto) (0.0-0.4) % Neut % (Auto) (45-73) % Lymph % (Auto) (20-40) % [place] % (Auto) (2-11) % Eos % (Auto) (0-4) % Baso % (Auto) (0-2) % Lymph # (Auto) (1.2-4.9) X10*3/uL [place] # (Auto) (0.1-1.2) X10*3/uL Eos # (Auto) (0.0-0.4) X10*3/uL Baso # (Auto) (0.0-0.2) X10*3/uL Abs Immat Gran (auto) (0.00-0.03) X10*3/uL Absolute Neuts (auto) (2.0-8.3) x10*3/uL Absolute Nucleated RBC (0.0-0.012) X10*3/uL Nucleated RBC % (auto) (0.0-0.2) /100WBC PT 16.7 H (9.9-13.0) SEC INR 1.5 H (0.9-1.1) APTT 38.5 H (24.1-38.0) SEC Sodium 130 L (135-145) mmol/L Potassium 3.3 (3.3-5.1) mmol/L Chloride 100 (96-108) mmol/L Carbon Dioxide 20 L (22-29) mmol/L Anion Gap 13 (12-20) BUN 31 H D (9-16) mg/dL Creatinine 1.55 H (0.5-1.4) mg/dL Estim Creat Clear Calc 58.1 Estimated GFR 47 Random Glucose 109 (60-115) mg/dL Lactic Acid (0.5-2.0) mmol/L Calcium 9.0 D (8.4-10.2) mg/dL Magnesium 2.2 (1.6-2.6) mg/dL Total Bilirubin 3.9 H (0.0-1.0) mg/dL Direct Bilirubin 2.6 H (0.0-0.5) mg/dL AST 61 H (5-37) U/L ALT 20 (0-40) U/L Alkaline Phosphatase 230 H (39-117) U/L Ammonia (13-55) umol/L Total Creatine Kinase 21 L (38-174) U/L Troponin I High Sens < 3.5 (<3.5-35.0) ng/L C-Reactive Protein (< or = 0.50) mg/dL B-Natriuretic Peptide 95 (<100) pg/mL Total Protein 7.8 (6.5-8.0) g/dL Albumin 3.8 (3.5-5.0) g/dL Lipase 186 H (8-78) U/L Ethyl Alcohol mg/dL COVID-19 ([facility]) (Negative) COVID-19 Clin Com 11/20/21 11/20/21 11/20/21 Range/Units 12:04 12:04 12:05 WBC 13.0 H (4.8-10.8) X10*3/uL RBC 3.00 L (4.60-5.80) X10*6/uL Hgb 9.4 L (14.0-18.0) g/dl Hct 28.0 L (42.0-52.0) % MCV 93.3 (80.0-98.0) fL MCH 31.3 (27.0-33.0) pg MCHC 33.6 (31.0-36.0) g/dl RDW 15.7 (11.0-16.0) % Plt Count 171 (160-400) X10*3/uL MPV 10.7 (9.4-12.4) fL Immature Gran % (Auto) 0.5 H (0.0-0.4) % Neut % (Auto) 70.7 (45-73) % Lymph % (Auto) 17.6 L (20-40) % [place] % (Auto) 8.2 (2-11) % Eos % (Auto) 2.5 (0-4) % Baso % (Auto) 0.5 (0-2) % Lymph # (Auto) 2.3 (1.2-4.9) X10*3/uL [place] # (Auto) 1.1 (0.1-1.2) X10*3/uL Eos # (Auto) 0.3 (0.0-0.4) X10*3/uL Baso # (Auto) 0.1 (0.0-0.2) X10*3/uL Abs Immat Gran (auto) 0.06 H (0.00-0.03) X10*3/uL Absolute Neuts (auto) 9.2 H (2.0-8.3) x10*3/uL Absolute Nucleated RBC 0.000 (0.0-0.012) X10*3/uL Nucleated RBC % (auto) 0.0 (0.0-0.2) /100WBC PT (9.9-13.0) SEC INR (0.9-1.1) APTT (24.1-38.0) SEC Sodium (135-145) mmol/L Potassium (3.3-5.1) mmol/L Chloride (96-108) mmol/L Carbon Dioxide (22-29) mmol/L Anion Gap (12-20) BUN (9-16) mg/dL Creatinine (0.5-1.4) mg/dL Estim Creat Clear Calc Estimated GFR Random Glucose (60-115) mg/dL Lactic Acid (0.5-2.0) mmol/L Calcium (8.4-10.2) mg/dL Magnesium (1.6-2.6) mg/dL Total Bilirubin (0.0-1.0) mg/dL Direct Bilirubin (0.0-0.5) mg/dL AST (5-37) U/L ALT (0-40) U/L Alkaline Phosphatase (39-117) U/L Ammonia (13-55) umol/L Total Creatine Kinase (38-174) U/L Troponin I High Sens (<3.5-35.0) ng/L C-Reactive Protein 3.48 H (< or = 0.50) mg/dL B-Natriuretic Peptide (<100) pg/mL Total Protein (6.5-8.0) g/dL Albumin (3.5-5.0) g/dL Lipase (8-78) U/L Ethyl Alcohol < 10 mg/dL COVID-19 ([facility]XTON) (Negative) COVID-19 Clin Com 11/20/21 11/20/21 11/20/21 Range/Units 12:05 12:07 12:38 WBC (4.8-10.8) X10*3/uL RBC (4.60-5.80) X10*6/uL Hgb (14.0-18.0) g/dl Hct (42.0-52.0) % MCV (80.0-98.0) fL MCH (27.0-33.0) pg MCHC (31.0-36.0) g/dl RDW (11.0-16.0) % Plt Count (160-400) X10*3/uL MPV (9.4-12.4) fL Immature Gran % (Auto) (0.0-0.4) % Neut % (Auto) (45-73) % Lymph % (Auto) (20-40) % [place] % (Auto) (2-11) % Eos % (Auto) (0-4) % Baso % (Auto) (0-2) % Lymph # (Auto) (1.2-4.9) X10*3/uL [place] # (Auto) (0.1-1.2) X10*3/uL Eos # (Auto) (0.0-0.4) X10*3/uL Baso # (Auto) (0.0-0.2) X10*3/uL Abs Immat Gran (auto) (0.00-0.03) X10*3/uL Absolute Neuts (auto) (2.0-8.3) x10*3/uL Absolute Nucleated RBC (0.0-0.012) X10*3/uL Nucleated RBC % (auto) (0.0-0.2) /100WBC PT (9.9-13.0) SEC INR (0.9-1.1) APTT (24.1-38.0) SEC Sodium (135-145) mmol/L Potassium (3.3-5.1) mmol/L Chloride (96-108) mmol/L Carbon Dioxide (22-29) mmol/L Anion Gap (12-20) BUN (9-16) mg/dL Creatinine (0.5-1.4) mg/dL Estim Creat Clear Calc Estimated GFR Random Glucose (60-115) mg/dL Lactic Acid 1.0 (0.5-2.0) mmol/L Calcium (8.4-10.2) mg/dL Magnesium (1.6-2.6) mg/dL Total Bilirubin (0.0-1.0) mg/dL Direct Bilirubin (0.0-0.5) mg/dL AST (5-37) U/L ALT (0-40) U/L Alkaline Phosphatase (39-117) U/L Ammonia 32 (13-55) umol/L Total Creatine Kinase (38-174) U/L Troponin I High Sens (<3.5-35.0) ng/L C-Reactive Protein (< or = 0.50) mg/dL B-Natriuretic Peptide (<100) pg/mL Total Protein (6.5-8.0) g/dL Albumin (3.5-5.0) g/dL Lipase (8-78) U/L Ethyl Alcohol mg/dL COVID-19 ([facility]) Negative (Negative) COVID-19 Clin Com See Note Imaging Data CT scan of brain chest cervical spine without contrast: Attestation: I personally reviewed and interpreted this imaging study as follows: Radiologist's impression: FINDINGS: There is no evidence of acute intracranial hemorrhage or territorial infarction. No abnormal mass effect or midline shift is seen. [place] to white matter differentiation is well preserved. No extra-axial fluid collections are identified. The ventricles are normal in size. There is no abnormal attenuation within the brain parenchyma. The osseous structures and soft tissues are normal. The mastoid air cells and visualized portions of the paranasal sinuses are well aerated. Pterygoid plates intact. No significant abnormality of the temporomandibular joints is seen. ? CT/CT head/brain wo con IMPRESSION: No acute intracranial pathology. FINDINGS: Visualized portions of the paranasal sinuses and mastoid air cells are unremarkable. Carotid artery calcification is present. Pterygoid plates intact. No significant abnormality of the temporal mandibular joints identified. Paraspinal muscle fat planes are maintained. No abnormal prevertebral soft tissue swelling. No acute cervical spine fracture. There is some anterior vertebral body spurring seen C3-C6. No significant neural foraminal bony encroachment identified. CT/CT cervical spine wo con IMPRESSION: No acute cervical spine fracture.? CT scan abdomen pelvis without IV contrast: Attestation: I personally reviewed and interpreted this imaging study as follows: Radiologist's impression: FINDINGS: LUNG BASES: There are a few lung cysts present at the right base. No significant parenchymal disease identified. No pericardial or pleural effusion. Coronary artery calcifications seen.? LIVER, GALLBLADDER, AND BILIARY TREE: There is hepatomegaly present. There appears to be some nodularity to the liver contour consistent with hepatic cirrhosis. No focal mass identified. No intrahepatic bile duct dilatation is seen. The umbilical vein does not appear to be recanalized. There appears be vicarious excretion of contrast from previous IV injection within the gallbladder. No definite gallbladder wall thickening is appreciated and no definite calculi noted. PANCREAS: Unremarkable.? SPLEEN: There is mild splenomegaly present with span of 13 cm. ADRENAL GLANDS: Unremarkable.? KIDNEYS AND URETERS: The kidneys are normal in size, shape, and attenuation. No hydronephrosis, hydroureter, or calculi seen. No perinephric stranding. ? BLADDER: Unremarkable.? GASTROINTESTINAL TRACT: No dilated loops of large or small bowel are evident. There is again noted to be moderate ascites present similar to previous study of November 13, 2021. No free air is identified. No definite pericolonic inflammatory changes seen however the right colon is difficult to evaluate due to its collapsed state, edema, and being adjacent to the free fluid. Appendix not identified. ABDOMINAL WALL: No significant hernia is appreciated.? LYMPH NODES: No lymphadenopathy appreciated. VASCULAR: No abdominal aortic aneurysm. Mild aortoiliac calcified plaque. There are portal venous varices present including esophageal varices. PELVIC VISCERA: Unremarkable.? OSSEOUS STRUCTURES: No acute suspicious destructive bony lesions identified. Significant degenerative disc disease L5-S1. CT/CT abdomen pelvis wo con IMPRESSION: Findings consistent with hepatic cirrhosis with hepatomegaly, moderate ascites, and portal venous varices.? Chest x-ray: Attestation: I personally reviewed and interpreted this imaging study as follows: Radiologist's impression: FINDINGS: There are small lung volumes. There appears be minor atelectatic change seen at the left base. No confluent parenchymal disease is seen. No pneumothorax or pleural effusion. Heart normal size. No evidence of pulmonary edema. Degenerative marginal spurring seen throughout the thoracic spine. XR/XR chest 1V IMPRESSION: No significant acute parenchymal disease. ? ECG Data Attestation: I personally reviewed and interpreted this ECG as follows: ECG interpretation date: 11/20/21 ECG interpretation time: 12:11 Interpretation: Normal sinus rhythm with a ventricular rate of 62 with a normal GA interval with a prolonged QT at 498 milliseconds otherwise no acute ischemic changes are noted. Similar compared to prior EKG 11/11/2021 Critical Care Time Critical Care Time Critical Care Time: Yes Total Critical Care Time: 60 Attestation: I personally attest to this time spent taking care of the patient Discharge Plan Discharge Clinical Impression: NATHANIEL (acute kidney injury), Acute hyponatremia, Weakness, Falls, Acute metabolic encephalopathy, Hepatic cirrhosis, Abdominal ascites Patient Disposition: Admitted As Inpatient
[2021-11-20 12:14] LABS: MANUAL DIFF FLAG NO
[2021-11-20] MEDS: 0.9 % Sodium Chloride 1,000 ML 999 ML IVCONT (12:15)
[2021-11-20 12:16] LABS: Basophils Absolute Auto 0.1 X10*3/uL (0.0-0.2); Basophils Percent Auto 0.5 % (0-2); Eosinophils Absolute Auto 0.3 X10*3/uL (0.0-0.4); Eosinophils Percent Auto 2.5 % (0-4); Hemoglobin 9.4 g/dl (14.0-18.0); Imm Gran Abs Auto 0.06 X10*3/uL (0.00-0.03); Imm Gran Pct Auto 0.5 % (0.0-0.4); Lymphocytes Absolute Auto 2.3 X10*3/uL (1.2-4.9); Lymphocytes Percent Auto 17.6 % (20-40); Mean Corpuscular HGB Conc 33.6 g/dl (31.0-36.0); Mean Corpuscular Hemoglobin 31.3 pg (27.0-33.0); Mean Corpuscular Volume 93.3 fL (80.0-98.0); Mean Platelet Volume 10.7 fL (9.4-12.4); Monocytes Absolute Auto 1.1 X10*3/uL (0.1-1.2); Monocytes Percent Auto 8.2 % (2-11); Neutrophils Absolute Auto 9.2 x10*3/uL (2.0-8.3); Neutrophils Percent Auto 70.7 % (45-73); Platelet Count 171 X10*3/uL (160-400); Red Cell Distribution Width 15.7 % (11.0-16.0)
[2021-11-20 12:23] LABS: INTERNATIONAL NORM RATIO 1.5 (0.9-1.1); Prothrombin Time 16.7 SEC (9.9-13.0)
[2021-11-20 12:26] LABS: Partial Thromboplastin Time 38.5 SEC (24.1-38.0)
[2021-11-20 12:51] LABS: Ethanol < 10 mg/dL
[2021-11-20 12:52] LABS: C Reactive Protein 3.48 mg/dL (< or = 0.50)
[2021-11-20 12:54] LABS: Alanine Aminotransferase 20 U/L (0-40); Albumin Level 3.8 g/dL (3.5-5.0); Alkaline Phosphatase 230 U/L (39-117); Anion Gap 13 (12-20); Aspartate Amino Transferase 61 U/L (5-37); Bilirubin Total 3.9 mg/dL (0.0-1.0); Blood Urea Nitrogen 31 mg/dL (9-16); Carbon Dioxide 20 mmol/L (22-29); Chloride 100 mmol/L (96-108); Creatinine Clr Calc Pharmacy 58.1; Estimated Glomerular Filt Rate 47; Glucose Random 109 mg/dL (60-115); Lipase 186 U/L (8-78); Magnesium 2.2 mg/dL (1.6-2.6); Potassium 3.3 mmol/L (3.3-5.1); Sodium 130 mmol/L (135-145); Total Protein 7.8 g/dL (6.5-8.0)
[2021-11-20 12:57] LABS: B Type Natriuretic Peptide 95 pg/mL (<100); Troponin-I High Sensitivity < 3.5 ng/L (<3.5-35.0)
[2021-11-20 13:02] LABS: Ammonia 32 umol/L (13-55)
[2021-11-20 13:03] LABS: COVID-19 Test Negative (Negative)
[2021-11-20] MEDS: Lactulose 20 GM/30 ML SOLUTION PO ×2 (13:30→20:23)
[2021-11-20 13:33] LABS: Bilirubin Direct 2.6 mg/dL (0.0-0.5)
[2021-11-20 14:34] VITALS: BP 105/53; PULSE 58; RESP 14; TEMP 36.9; O2SAT 97
--- NOTE | 2021-11-20 16:47 | PHA.MEDREC ---
Pharmacy Consult ? Medication Reconciliation Pharmacy has completed the medication reconciliation. Patient's fiance report that he never stopped taking the gabapentin and that she was never told it should be stopped. Per discharge summary of 11/17/2021 patient should have stopped the gabapentin. Priscilla Leon, PharmD
--- NOTE | 2021-11-20 17:00 | P.HPHOSP_ITS ---
History of Present Illness Date of Service: 11/20/21 Chief Complaint: weakness, confusion 56 year old male with alocholic liver cirrhosis with ascites. He was discharged from the hospital for hepatic encephalopathy and discharged just 3 days ago and comes back with NATHANIEL 1.55 up from 1.1, feeling weaker, and has some confusion yet ammonia level is normal. His signficant other is saying that he is much weaker Review of Systems Verdana 4l Review of Systems: Verdana 4d Verdana 4Bd Gen: Verdana 4d no fever Verdana 4Bd Resp: Verdana 4d no sob, no cough Verdana 4Bd CV: Verdana 4d no chest, no CAMPUZANO, no leg edema Verdana 4Bd GI: Verdana 4d No n/v, no abd pain Verdana 4Bd Neuro: Verdana 4d confusion and weaknessweakness Yes all other systems are reviewed and are negative [facility] Medical History (Updated 11/20/21 @ 17:18 by Haim Pratt MD) Alcoholic cirrhosis of liver with ascites Anxiety Depression Hepatic cirrhosis Hyperlipidemia Hypertension Prostate cancer Pertinent family history: He reports of family of chronic liver disease Social History Household Members: Spouse Housing: Condominium Alcohol intake: unknown Patient Tobacco Use Status: Tobacco use Unknown Tobacco use type: Cigarette Use of substances other than those prescribed or required for medical reasons: Unknown Advance Directives: Yes Advance Directives on File: Yes Advance Directives Date on File: 11/11/21 service: No Current occupational status: disabled Meds Allergies Allergy/AdvReac Type Severity Reaction Status Date / Time Fish Containing Products Allergy Severe THROAT Verified 11/13/21 05:34 SWELLING peanut [Peanut] Allergy Severe THROAT Verified 11/13/21 05:34 SWELLING Active Medications: Current Medications Pharmacy Consult (Consult Rx Perform Med Rec) 1 each MISCELLANE ONCE PRN PRN Reason: Consult order Home Medications Medication Instructions Recorded Confirmed Last Taken Type lactulose 10 30 ml PO TID 11/11/21 11/20/21 11/20/21 History gram/15 mL oral solution (Constulose) lorazepam 1 mg 4 tab PO DAILY 11/11/21 11/20/21 11/20/21 History tablet (Ativan) pantoprazole 40 1 tab PO DAILY 11/11/21 11/20/21 11/20/21 History mg tablet,delayed release pravastatin 20 mg 1 tab PO BEDTIME 11/11/21 11/20/21 11/19/21 History tablet propranolol 10 mg 1 tab PO TID 11/11/21 11/20/21 11/20/21 History tablet risperidone 0.5 1 tab PO BEDTIME 11/11/21 11/20/21 11/19/21 History mg tablet spironolactone 25 2 tab PO DAILY 11/11/21 11/20/21 11/20/21 History mg tablet topiramate 200 mg 1 tab PO BID 11/11/21 11/20/21 11/20/21 History tablet (Topamax) zolpidem 10 mg 1 tab PO BEDTIME 11/11/21 11/20/21 11/19/21 History tablet (Ambien) gabapentin 400 mg 1 cap PO TID 11/20/21 11/20/21 11/20/21 History capsule (Neurontin) Physical Exam Verdana 4l Vital Signs and Narrative: Verdana 4d Verdana 4d Vital Signs: Verdana 4d Verdana 4Bd Last Vital Signs Verdana 4d Sock Folder New 4d Sock Folder New 4d Temp 98.5 F 11/20/21 14:34 Sock Folder New 4d Pulse 58 11/20/21 14:34 Sock Folder New 4d Resp 14 11/20/21 14:34 BP 105/53 L 11/20/21 14:34 Pulse Ox 97 11/20/21 14:34 BMI result Body Mass Index 32.4 Const: Other: Constitutional: Alert, in no distress Mental Status: Oriented to person, place and time. Eyes: Pupils are equal, round and reactive to light. Ear, Nose and Throat: Oropharynx clear, mucous membranes moist. Ears and nose without eformities. Trachea midline. Respiratory: Clear to auscultation. No wheezing, rales or rhonchi. Cardiovascular: S1 S2 regular. No murmurs, rubs or gallops., no peripheral edema Gastrointestinal: Abdomen soft, non-tender, non-distended. Normal bowel sounds. some singns of ascietes? Neurologic: Cranial nerves II-XII grossly intact. No focal neurological deficits. Moves all extremities spontaneously.? Skin: No rashes or lesions.? Musculoskeletal: No cyanosis or clubbing. Psychiatric: Normal mood and affect? Results Labs CBC and Chem 7: 11/20/21 12:05 11/20/21 12:02 Labs: Laboratory Results - last 24 hr 11/20/21 11/20/21 11/20/21 12:02 12:02 12:02 MCV MCH MCHC RDW Plt Count MPV Immature Gran % (Auto) Neut % (Auto) Lymph % (Auto) [place] % (Auto) Eos % (Auto) Baso % (Auto) Lymph # (Auto) [place] # (Auto) Eos # (Auto) Baso # (Auto) Abs Immat Gran (auto) Absolute Neuts (auto) Absolute Nucleated RBC Nucleated RBC % (auto) PT 16.7 H INR 1.5 H APTT 38.5 H Anion Gap 13 Estim Creat Clear Calc 58.1 Estimated GFR 47 Random Glucose 109 Lactic Acid Calcium 9.0 D Magnesium 2.2 Total Bilirubin 3.9 H Direct Bilirubin 2.6 H AST 61 H ALT 20 Alkaline Phosphatase 230 H Ammonia Total Creatine Kinase 21 L C-Reactive Protein B-Natriuretic Peptide 95 Total Protein 7.8 Albumin 3.8 Lipase 186 H Ethyl Alcohol COVID-19 ([facility]) [employer] 11/20/21 11/20/21 11/20/21 12:04 12:04 12:05 MCV 93.3 MCH 31.3 MCHC 33.6 RDW 15.7 Plt Count 171 MPV 10.7 Immature Gran % (Auto) 0.5 H Neut % (Auto) 70.7 Lymph % (Auto) 17.6 L [place] % (Auto) 8.2 Eos % (Auto) 2.5 Baso % (Auto) 0.5 Lymph # (Auto) 2.3 [place] # (Auto) 1.1 Eos # (Auto) 0.3 Baso # (Auto) 0.1 Abs Immat Gran (auto) 0.06 H Absolute Neuts (auto) 9.2 H Absolute Nucleated RBC 0.000 Nucleated RBC % (auto) 0.0 PT INR APTT Anion Gap Estim Creat Clear Calc Estimated GFR Random Glucose Lactic Acid Calcium Magnesium Total Bilirubin Direct Bilirubin AST ALT Alkaline Phosphatase Ammonia Total Creatine Kinase C-Reactive Protein 3.48 H B-Natriuretic Peptide Total Protein Albumin Lipase Ethyl Alcohol < 10 COVID-19 ([facility]) [employer] 11/20/21 11/20/2111/20/22 12:05 12:07 12:38 MCV MCH MCHC RDW Plt Count MPV Immature Gran % (Auto) Neut % (Auto) Lymph % (Auto) [place] % (Auto) Eos % (Auto) Baso % (Auto) Lymph # (Auto) [place] # (Auto) Eos # (Auto) Baso # (Auto) Abs Immat Gran (auto) Absolute Neuts (auto) Absolute Nucleated RBC Nucleated RBC % (auto) PT INR APTT Anion Gap Estim Creat Clear Calc Estimated GFR Random Glucose Lactic Acid 1.0 Calcium Magnesium Total Bilirubin Direct Bilirubin AST ALT Alkaline Phosphatase Ammonia 32 Total Creatine Kinase C-Reactive Protein B-Natriuretic Peptide Total Protein Albumin Lipase Ethyl Alcohol COVID-19 ([facility]) Negative COVID-19 Clin Com See Note Imaging Radiologist's Impressions: Impressions Cervical Spine CT 11/20/21 13:39 IMPRESSION: No acute cervical spine fracture. Head CT 11/20/21 13:39 IMPRESSION: No acute intracranial pathology. Abdomen/Pelvis CT 11/20/21 13:40 IMPRESSION: Findings consistent with hepatic cirrhosis with hepatomegaly, moderate ascites, and portal venous varices. Chest X-Ray 11/20/21 13:55 IMPRESSION: No significant acute parenchymal disease. Assessment and Plan (1) Acute metabolic encephalopathy: Status: Acute (2) NATHANIEL (acute kidney injury): Status: Acute (3) Hepatic cirrhosis: Status: Acute Plan 56 year old male with with alcoholic liver cirrhosis recent discharged following hepatic encephalopathy and NATHANIEL and coming back with weakness, slight confusion and NATHANIEL, has moderate ascietes on imaging but no evidence of peritonitis. 1/NATHANIEL--likely pre renal state and diuretics, I don't think this is a care of hepatorenal syndrome -gentle hydration, avoid nephrotoxins and repeat Cr tomorrow and if worsening then Nephro consult 2/Encephalopathy--Metatolic, not necessary HE, probably related to above, seems better already 3/ Weakness, falls--PT eval, and rehab 4/HLD--Statin 5/Chronic Liver disease--medical management with propranoli. Hold diuretics until renal funtion is better 6/Hyponatremia--Moderate, due to liver disease (hypervolemia), monitor, fluid restriction 7/DVT--heparin full Quality Stroke Does the patient have a stroke diagnosis?: No VTE Prior VTE?: No VTE Risk Level:: Medical - moderate - high VTE Device Contraindication: Treatment Not Indicated VTE Drug Contraindication: N/A - Med Ordered
[2021-11-20 19:03] VITALS: BP 115/47; PULSE 61; RESP 17; TEMP 36.8; O2SAT 96
[2021-11-20] MEDS: Propranolol HCL 10 MG TABLET PO (20:23)
[2021-11-20] MEDS: risperiDONE 0.5 MG TABLET PO (20:23)
[2021-11-20] MEDS: Pravastatin Sodium 20 MG TABLET PO (20:23)
[2021-11-20] MEDS: Topiramate 100 MG TABLET 200 MG PO (20:23)
[2021-11-20] MEDS: Gabapentin 400 MG CAPSULE PO (20:23)
[2021-11-20] MEDS: Zolpidem Tartrate 5 MG TABLET 10 MG PO (20:23)
--- NOTE | 2021-11-20 20:27 | PC.NURSE ---
Patient incontinent of stool. All bed linens changed and patient cleaned up. Patient medicated with nighttime meds as per EMAR without issue.
[2021-11-21 00:22] VITALS: BP 97/55; PULSE 58; RESP 14; O2SAT 95
[2021-11-21 04:16] VITALS: BP 110/56; PULSE 60; RESP 14; TEMP 36.7; O2SAT 95
--- NOTE | 2021-11-21 05:28 | PC.NURSE ---
Patient incontinent of stool x 3 and linens changed as well as barrier cream applied to patient's buttocks
[2021-11-21] MEDS: Heparin Sodium,Porcine 5,000 UNIT/ML VIAL 5000 UNIT SUBCUT ×2 (05:34→20:02)
[2021-11-21] MEDS: Omeprazole 20 MG CAPSULE.DR PO (05:34)
[2021-11-21 06:59] VITALS: BP 110/47; PULSE 63; RESP 14; O2SAT 97
--- NOTE | 2021-11-21 08:16 | PC.NURSE ---
PT INCONTINENT OF STOOL AND URINE. CLEANED AND REPOSITIONED. DR JOLLEY AT THE BEDSIDE. PLAN IS REHAB PLACEMENT
[2021-11-21 08:32] LABS: Anion Gap 11 (12-20); Blood Urea Nitrogen 26 mg/dL (9-16); Calcium 8.8 mg/dL (8.4-10.2); Carbon Dioxide 21 mmol/L (22-29); Chloride 103 mmol/L (96-108); Creatinine Clr Calc Pharmacy 81.9; Estimated Glomerular Filt Rate > 60; Glucose Random 106 mg/dL (60-115); Potassium 3.1 mmol/L (3.3-5.1); Sodium 132 mmol/L (135-145)
--- NOTE | 2021-11-21 08:51 | P.PNIM_ITS ---
Subjective Subjective Date of Service: 11/21/21 Interval History: f/u on confusion, nathaniel, no confusion, gen weak Review of Systems Gen: no fever Resp: no sob, no cough CV: no chest, no CAMPUZANO, no leg edema GI: No n/v, no abd pain Neuro: no confusion, +weakness Physical Exam Verdana 4l Vital Signs: Verdana 4d Verdana 4d Vital Signs: Verdana 4d Verdana 4Bd Last Vital Signs Verdana 4d Sound Truck Operator New 4d Sound Truck Operator New 4d Temp 98.1 F 11/21/21 04:16 Sound Truck Operator New 4d Pulse 63 11/21/21 06:59 Sound Truck Operator New 4d Resp 14 11/21/21 06:59 BP 110/47 L 11/21/21 06:59 Pulse Ox 97 11/21/21 06:59 BMI result Body Mass Index 32.4 Const: Other: General: AO X 3, no acute distress HEENT: Sclera icteris Resp: CTA bilateral CVS: S1,S2,RRR GI: +BS, NT, mild ditention from ascietes Skin: No rash Neuro: motor grossly intact Psych: appropriate affect Objective Data Active Medications Gabapentin (Gabapentin 400 Mg Capsule) 400 mg PO TID [facility] Last Admin: 11/20/21 20:23 Dose: 400 mg Documented by: KRISHNA Heparin Sodium (Porcine) (Heparin Sodium,Porcine 5,000 Unit/Ml Vial) 5,000 unit SUBCUT Q12H [facility] Last Admin: 11/21/21 05:34 Dose: 5,000 unit Documented by: KRISHNA Lactulose (Lactulose 20 Gm/30 Ml Solution) 20 gm PO TID [facility] Last Admin: 11/20/21 20:23 Dose: 20 gm Documented by: KRISHNA Lorazepam (Lorazepam 1 Mg Tablet) 4 mg PO DAILY [facility] Omeprazole (Omeprazole 20 Mg Capsule.) 20 mg PO DAILY@0630 [facility] Last Admin: 11/21/21 05:34 Dose: 20 mg Documented by: KRISHNA Pharmacy Consult (Consult Rx Perform Med Rec) 1 each MISCELLANE ONCE PRN PRN Reason: Consult order Pravastatin Sodium (Pravastatin Sodium 20 Mg Tablet) 20 mg PO BEDTIME [facility] Last Admin: 11/20/21 20:23 Dose: 20 mg Documented by: KRISHNA Propranolol HCl (Propranolol Hcl 10 Mg Tablet) 10 mg PO TID [facility]; Protocol Last Admin: 11/20/21 20:23 Dose: 10 mg Documented by: KRISHNA Risperidone (Risperidone 0.5 Mg Tablet) 0.5 mg PO BEDTIME [facility] Last Admin: 11/20/21 20:23 Dose: 0.5 mg Documented by: KRISHNA Sodium Chloride (0.9 % Sodium Chloride Flush 3 Ml Syringe) 3 ml IVFLUSH QSHIFT [facility] Last Admin: 11/21/21 00:32 Dose: Not Given Documented by: KRISHNA Non-Admin Reason: IV Running Spironolactone (Spironolactone 25 Mg Tablet) 50 mg PO DAILY [facility]; Protocol Topiramate (Topiramate 100 Mg Tablet) 200 mg PO BID [facility] Last Admin: 11/20/21 20:23 Dose: 200 mg Documented by: KRISHNA Zolpidem Tartrate (Zolpidem Tartrate 5 Mg Tablet) 10 mg PO BEDTIME [facility] Last Admin: 11/20/21 20:23 Dose: 10 mg Documented by: KRISHNA Labs CBC & Chem 7: 11/20/21 12:05 11/21/21 07:33 Labs: Laboratory Results - last 24 hr 11/20/21 11/20/21 11/20/21 12:02 12:02 12:02 MCV MCH MCHC RDW Plt Count MPV Immature Gran % (Auto) Neut % (Auto) Lymph % (Auto) [place] % (Auto) Eos % (Auto) Baso % (Auto) Lymph # (Auto) [place] # (Auto) Eos # (Auto) Baso # (Auto) Abs Immat Gran (auto) Absolute Neuts (auto) Absolute Nucleated RBC Nucleated RBC % (auto) PT 16.7 H INR 1.5 H APTT 38.5 H Anion Gap 13 Estim Creat Clear Calc 58.1 Estimated GFR 47 Random Glucose 109 Lactic Acid Calcium 9.0 D Magnesium 2.2 Total Bilirubin 3.9 H Direct Bilirubin 2.6 H AST 61 H ALT 20 Alkaline Phosphatase 230 H Ammonia Total Creatine Kinase 21 L C-Reactive Protein B-Natriuretic Peptide 95 Total Protein 7.8 Albumin 3.8 Lipase 186 H Ethyl Alcohol COVID-19 ([facility]) COVID-19 Clin Com 11/20/21 11/20/21 11/20/21 12:04 12:04 12:05 MCV 93.3 MCH 31.3 MCHC 33.6 RDW 15.7 Plt Count 171 MPV 10.7 Immature Gran % (Auto) 0.5 H Neut % (Auto) 70.7 Lymph % (Auto) 17.6 L [place] % (Auto) 8.2 Eos % (Auto) 2.5 Baso % (Auto) 0.5 Lymph # (Auto) 2.3 [place] # (Auto) 1.1 Eos # (Auto) 0.3 Baso # (Auto) 0.1 Abs Immat Gran (auto) 0.06 H Absolute Neuts (auto) 9.2 H Absolute Nucleated RBC 0.000 Nucleated RBC % (auto) 0.0 PT INR APTT Anion Gap Estim Creat Clear Calc Estimated GFR Random Glucose Lactic Acid Calcium Magnesium Total Bilirubin Direct Bilirubin AST ALT Alkaline Phosphatase Ammonia Total Creatine Kinase C-Reactive Protein 3.48 H B-Natriuretic Peptide Total Protein Albumin Lipase Ethyl Alcohol < 10 COVID-19 ([facility]) COVID-19 [facility] Labs 11/20/21 11/20/21 11/20/21 12:05 12:07 12:38 MCV MCH MCHC RDW Plt Count MPV Immature Gran % (Auto) Neut % (Auto) Lymph % (Auto) [place] % (Auto) Eos % (Auto) Baso % (Auto) Lymph # (Auto) [place] # (Auto) Eos # (Auto) Baso # (Auto) Abs Immat Gran (auto) Absolute Neuts (auto) Absolute Nucleated RBC Nucleated RBC % (auto) PT INR APTT Anion Gap Estim Creat Clear Calc Estimated GFR Random Glucose Lactic Acid 1.0 Calcium Magnesium Total Bilirubin Direct Bilirubin AST ALT Alkaline Phosphatase Ammonia 32 Total Creatine Kinase C-Reactive Protein B-Natriuretic Peptide Total Protein Albumin Lipase Ethyl Alcohol COVID-19 ([facility]) Negative COVID-19 Clin Com See Note 11/21/21 07:33 MCV MCH MCHC RDW Plt Count MPV Immature Gran % (Auto) Neut % (Auto) Lymph % (Auto) [place] % (Auto) Eos % (Auto) Baso % (Auto) Lymph # (Auto) [place] # (Auto) Eos # (Auto) Baso # (Auto) Abs Immat Gran (auto) Absolute Neuts (auto) Absolute Nucleated RBC Nucleated RBC % (auto) PT INR APTT Anion Gap 11 L Estim Creat Clear Calc 81.9 Estimated GFR > 60 Random Glucose 106 Lactic Acid Calcium 8.8 Magnesium Total Bilirubin Direct Bilirubin AST ALT Alkaline Phosphatase Ammonia Total Creatine Kinase C-Reactive Protein B-Natriuretic Peptide Total Protein Albumin Lipase Ethyl Alcohol COVID-19 ([facility]) COVID-19 Clin Com Assessment and Plan (1) Weakness: Status: Acute (2) Falls: Status: Acute (3) NATHANIEL (acute kidney injury): Status: Acute Plan 56 year old male with with alcoholic liver cirrhosis recent discharged following hepatic encephalopathy and NATHANIEL and coming back with weakness, slight confusion and NATHANIEL, has moderate ascietes on imaging but no evidence of peritonitis. 1/NATHANIEL--likely pre renal state and diuretics--Resolved. 2/Encephalopathy--Metatolic, not necessary HE, probably related to above--resolved 3/ Weakness, falls--PT eval, and rehab 4/HLD--Statin 5/Chronic Liver disease--medical management with propranoli. Resume diuretics--aldactone 6/ HypOkalemia--3.1, aldactone and supplement 6/Chronic Hyponatremia--Moderate, due to liver disease (hypervolemia)--stable, fluid restriction 7/DVT--heparin full Quality Stroke Does the patient have a stroke diagnosis?: No VTE Prior VTE?: No VTE Risk Level:: Medical - moderate - high VTE Device Contraindication: Treatment Not Indicated VTE Drug Contraindication: N/A - Med Ordered
[2021-11-21 09:51] VITALS: BP 116/41; PULSE 61; RESP 16; O2SAT 99
--- NOTE | 2021-11-21 10:30 | PC.NURSE ---
pt with fall currently in ct scan dr bee aware
[2021-11-21] MEDS: Propranolol HCL 10 MG TABLET PO ×3 (10:46→20:01)
[2021-11-21] MEDS: Topiramate 100 MG TABLET 200 MG PO ×2 (10:46→20:01)
[2021-11-21] MEDS: Gabapentin 400 MG CAPSULE PO ×3 (10:46→20:01)
[2021-11-21] MEDS: Spironolactone 25 MG TABLET 50 MG PO (10:46)
[2021-11-21] MEDS: Lactulose 20 GM/30 ML SOLUTION PO ×3 (10:47→20:01)
[2021-11-21] MEDS: LORazepam 1 MG TABLET 4 MG PO (10:47)
--- NOTE | 2021-11-21 10:54 | PC.NURSE ---
3 ANGELA PLACED TO POST HEAD LACERATION, DSD , BLEEDING IS CONTROLLED
--- NOTE | 2021-11-21 10:58 | PM.EVENT ---
Event Note Date of Service: 11/21/21 Event Note: Fell out of bed, circumstances unclear. has about 2 cm laceration to occipital scalp. No new change in mental status, neuro is intact, no pain in neck or hip. Moves all limbs. Has surveillance camera now. CT head, neck and pelvis--result pending. Educated on asking for help
--- NOTE | 2021-11-21 13:08 | MHC.CM.PN ---
Met with patient and sig other, Catalino, in regards to discharge planning. Patient lives with Catalino, ambulates with a walker and is active with [facility]. PCP verified. Copy of HCP verified to be on file. IMM explained and signed. Patient would prefer to return home with services. Catalino feels patient is too weak to return home. Patient a little confused at this time, but is able to verbalize understanding that a physical therapy eval will be ordered before discharge to verify which would be a safe discharge plan. Patient received 2 Pfizer vaccine and Pfizer booster. List of facilities provided to patient and Catalino from [facility] of all facilities that are contracted with patient's insurance. [facility] is currently the 1st choice. Referral made via [employer]. Continue to monitor for d/c needs.
--- NOTE | 2021-11-21 18:06 | PC.NURSE ---
REPORT GIVEN FOR ADMISSION TO MED SURG
[2021-11-21 19:38] VITALS: BP 122/59; PULSE 64; RESP 16; TEMP 37.2; O2SAT 98
[2021-11-21 19:54] VITALS: BMI 32.0
[2021-11-21] MEDS: risperiDONE 0.5 MG TABLET PO (20:01)
[2021-11-21] MEDS: Zolpidem Tartrate 5 MG TABLET 10 MG PO (20:01)
[2021-11-21] MEDS: Pravastatin Sodium 20 MG TABLET PO (20:01)
[2021-11-21] MEDS: 0.9 % Sodium Chloride Flush 3 ML SYRINGE IVFLUSH (20:02)
[2021-11-21 23:19] VITALS: BP 125/60; PULSE 61; RESP 18; TEMP 37.1; O2SAT 99
[2021-11-22] VITALS (8 sets, daily range): BP systolic 101–118; BP diastolic 50–64; PULSE 62–77; RESP 12–19; TEMP 36.1–36.9; O2SAT 96–98
[2021-11-22] MEDS: Omeprazole 20 MG CAPSULE.DR PO (05:51)
[2021-11-22] MEDS: Heparin Sodium,Porcine 5,000 UNIT/ML VIAL 5000 UNIT SUBCUT ×2 (05:51→18:17)
[2021-11-22] MEDS: Topiramate 100 MG TABLET 200 MG PO ×2 (08:35→20:32)
[2021-11-22] MEDS: Spironolactone 25 MG TABLET 50 MG PO (08:36)
[2021-11-22] MEDS: Gabapentin 400 MG CAPSULE PO ×3 (08:36→20:31)
[2021-11-22] MEDS: Propranolol HCL 10 MG TABLET PO ×3 (08:36→20:31)
[2021-11-22] MEDS: LORazepam 1 MG TABLET 4 MG PO (08:37)
[2021-11-22] MEDS: 0.9 % Sodium Chloride Flush 3 ML SYRINGE IVFLUSH ×3 (08:37→20:32)
[2021-11-22] MEDS: Lactulose 20 GM/30 ML SOLUTION PO ×3 (08:39→20:31)
--- NOTE | 2021-11-22 09:25 | P.PNIM_ITS ---
Subjective Subjective Date of Service: 11/22/21 Interval History: f/u on confusion, nathaniel, no confusion, gen weak, fell in ed yesterday with scalp laceration, required stappling Review of Systems Gen: no fever Resp: no sob, no cough CV: no chest, no CAMPUZANO, no leg edema GI: No n/v, no abd pain Neuro: no confusion, +weakness Physical Exam Verdana 4l Vital Signs: Verdana 4d Verdana 4d Vital Signs: Verdana 4d Verdana 4Bd Last Vital Signs Verdana 4d Account Support Rep New 4d Account Support Rep New 4d Temp 96.9 F 11/22/21 08:00 Account Support Rep New 4d Pulse 77 11/22/21 08:04 Account Support Rep New 4d Resp 18 11/22/21 08:00 BP 118/52 L 11/22/21 08:04 Pulse Ox 98 11/22/21 08:04 BMI result Body Mass Index 32.0 Const: Other: General: AO X 3, no acute distress HEENT: Sclera icteris Resp: CTA bilateral CVS: S1,S2,RRR GI: +BS, NT, mild ditention from ascietes Skin: No rash Neuro: motor grossly intact Psych: appropriate affect Objective Data Active Medications Gabapentin (Gabapentin 400 Mg Capsule) 400 mg PO TID [facility] Last Admin: 11/22/21 08:36 Dose: 400 mg Documented by: DARIN Heparin Sodium (Porcine) (Heparin Sodium,Porcine 5,000 Unit/Ml Vial) 5,000 unit SUBCUT Q12H [facility] Last Admin: 11/22/21 05:51 Dose: 5,000 unit Documented by: BINTA Lactulose (Lactulose 20 Gm/30 Ml Solution) 20 gm PO TID [facility] Last Admin: 11/22/21 08:39 Dose: 20 gm Documented by: DARIN Lorazepam (Lorazepam 1 Mg Tablet) 4 mg PO DAILY [facility] Last Admin: 11/22/21 08:37 Dose: 4 mg Documented by: DARIN Omeprazole (Omeprazole 20 Mg Capsule.) 20 mg PO DAILY@0630 [facility] Last Admin: 11/22/21 05:51 Dose: 20 mg Documented by: BINTA Pharmacy Consult (Consult Rx Perform Med Rec) 1 each MISCELLANE ONCE PRN PRN Reason: Consult order Pravastatin Sodium (Pravastatin Sodium 20 Mg Tablet) 20 mg PO BEDTIME [facility] Last Admin: 11/21/21 20:01 Dose: 20 mg Documented by: BINTA Propranolol HCl (Propranolol Hcl 10 Mg Tablet) 10 mg PO TID [facility]; Protocol Last Admin: 11/22/21 08:36 Dose: 10 mg Documented by: DARIN Risperidone (Risperidone 0.5 Mg Tablet) 0.5 mg PO BEDTIME [facility] Last Admin: 11/21/21 20:01 Dose: 0.5 mg Documented by: BINTA Sodium Chloride (0.9 % Sodium Chloride Flush 3 Ml Syringe) 3 ml IVFLUSH QSHIFT [facility] Last Admin: 11/22/21 08:37 Dose: 3 ml Documented by: DARIN Spironolactone (Spironolactone 25 Mg Tablet) 50 mg PO DAILY [facility]; Protocol Last Admin: 11/22/21 08:36 Dose: 50 mg Documented by: DARIN Topiramate (Topiramate 100 Mg Tablet) 200 mg PO BID [facility] Last Admin: 11/22/21 08:35 Dose: 200 mg Documented by: DARIN Zolpidem Tartrate (Zolpidem Tartrate 5 Mg Tablet) 10 mg PO BEDTIME [facility] Last Admin: 11/21/21 20:01 Dose: 10 mg Documented by: BINTA Labs CBC & Chem 7: 11/20/21 12:05 11/21/21 07:33 Microbiology Microbiology Results: Microbiology 11/20/21 15:06 Blood Culture - Preliminary Blood - Venous No growth after 24 hours. 11/20/21 12:38 Blood Culture - Preliminary Blood - Venous No growth after 24 hours. Assessment and Plan (1) Weakness: Status: Acute (2) Falls: Status: Acute (3) NATHANIEL (acute kidney injury): Status: Acute Plan 56 year old male with with alcoholic liver cirrhosis recent discharged following hepatic encephalopathy and NATHANIEL and coming back with weakness, slight confusion and NATHANIEL, has moderate ascietes on imaging but no evidence of peritonitis. 1/NATHANIEL--likely pre renal state and diuretics--R 2/Encephalopathy--Metatolic, not necessary HE, probably related to above--resolved 3/ Weakness, falls--PT eval, and rehab 4/HLD--Statin 5/Chronic Liver disease--medical management with propranoli. Resume diuretics--aldactone 6/ HypOkalemia--3.1, aldactone and supplement 6/Chronic Hyponatremia--Moderate, due to liver disease (hypervolemia)--stable, fluid restriction 7/Falls and fall risk, agree with PT about STR 7/DVT--heparin full Quality Stroke Does the patient have a stroke diagnosis?: No VTE Prior VTE?: No VTE Risk Level:: Medical - moderate - high VTE Device Contraindication: Treatment Not Indicated VTE Drug Contraindication: N/A - Med Ordered
--- NOTE | 2021-11-22 10:10 | MHC.CM.PN ---
[facility] updated in allscripts no bed as of yesterday.
--- NOTE | 2021-11-22 15:02 | MHC.CM.PN ---
OF THIS NOTE, NO BED OFFERS. BRAULIO ARIEL, KUSUM ADDED TO LIST.
[2021-11-22] MEDS: Pravastatin Sodium 20 MG TABLET PO (20:31)
[2021-11-22] MEDS: Zolpidem Tartrate 5 MG TABLET 10 MG PO (20:32)
[2021-11-22] MEDS: risperiDONE 0.5 MG TABLET PO (20:32)
[2021-11-23 03:48] VITALS: BP 110/55; PULSE 94; RESP 20; TEMP 36.4; O2SAT 96
[2021-11-23] MEDS: Heparin Sodium,Porcine 5,000 UNIT/ML VIAL 5000 UNIT SUBCUT ×2 (05:55→18:00)
[2021-11-23] MEDS: Omeprazole 20 MG CAPSULE.DR PO (05:55)
[2021-11-23 08:00] VITALS: PULSE 64; RESP 18; TEMP 36.3; O2SAT 99
[2021-11-23] MEDS: 0.9 % Sodium Chloride Flush 3 ML SYRINGE IVFLUSH ×3 (08:23→20:10)
[2021-11-23] MEDS: Propranolol HCL 10 MG TABLET PO ×3 (08:23→20:08)
[2021-11-23] MEDS: Topiramate 100 MG TABLET 200 MG PO ×2 (08:23→20:08)
[2021-11-23] MEDS: Gabapentin 400 MG CAPSULE PO ×3 (08:24→20:08)
[2021-11-23] MEDS: Spironolactone 25 MG TABLET 50 MG PO (08:24)
[2021-11-23] MEDS: Lactulose 20 GM/30 ML SOLUTION PO ×3 (08:25→20:09)
[2021-11-23] MEDS: LORazepam 1 MG TABLET 2 MG PO (08:25)
[2021-11-23 08:33] LABS: Potassium 3.4 mmol/L (3.3-5.1)
[2021-11-23 09:04] VITALS: PULSE 64; O2SAT 99
[2021-11-23 11:11] VITALS: BP 126/64; PULSE 63; RESP 18; TEMP 36.2; O2SAT 97
--- NOTE | 2021-11-23 14:17 | P.PNIM_ITS ---
Subjective Subjective Date of Service: 11/23/21 Interval History: Metabolic encephalopathy, NATHANIEL Review of Systems initally had confusion, nathaniel, no confusion: still generally weak, fell intially in ed with scalp laceration, required stappling Physical Exam Vital Signs: Vital Signs: Last Vital Signs Temp 97.1 F 11/23/21 11:11 Pulse 63 11/23/21 11:11 Resp 18 11/23/21 11:11 BP 126/64 11/23/21 11:11 Pulse Ox 97 11/23/21 11:11 BMI result Body Mass Index 32.0 General: AO X 3, no acute distress HEENT: Sclera icteris Resp:? CTA bilateral CVS: S1,S2,RRR GI: +BS, NT, mild ditention from ascietes Skin: No rash Neuro:? motor grossly intact Psych: appropriate affect Objective Data Active Medications Gabapentin (Gabapentin 400 Mg Capsule) 400 mg PO TID [facility] Last Admin: 11/23/21 08:24 Dose: 400 mg Documented by: LAYNE Heparin Sodium (Porcine) (Heparin Sodium,Porcine 5,000 Unit/Ml Vial) 5,000 unit SUBCUT Q12H [facility] Last Admin: 11/23/21 05:55 Dose: 5,000 unit Documented by: ESPERANZA Lactulose (Lactulose 20 Gm/30 Ml Solution) 20 gm PO TID [facility] Last Admin: 11/23/21 08:25 Dose: 20 gm Documented by: LAYNE Lorazepam (Lorazepam 1 Mg Tablet) 2 mg PO DAILY [facility] Last Admin: 11/23/21 08:25 Dose: 2 mg Documented by: LAYNE Omeprazole (Omeprazole 20 Mg Capsule.) 20 mg PO DAILY@0630 [facility] Last Admin: 11/23/21 05:55 Dose: 20 mg Documented by: ESPERANZA Pharmacy Consult (Consult Rx Perform Med Rec) 1 each MISCELLANE ONCE PRN PRN Reason: Consult order Pravastatin Sodium (Pravastatin Sodium 20 Mg Tablet) 20 mg PO BEDTIME [facility] Last Admin: 11/22/21 20:31 Dose: 20 mg Documented by: ESPERANZA Propranolol HCl (Propranolol Hcl 10 Mg Tablet) 10 mg PO TID [facility]; Protocol Last Admin: 11/23/21 08:23 Dose: 10 mg Documented by: LAYNE Risperidone (Risperidone 0.5 Mg Tablet) 0.5 mg PO BEDTIME [facility] Last Admin: 11/22/21 20:32 Dose: 0.5 mg Documented by: ESPERANZA Sodium Chloride (0.9 % Sodium Chloride Flush 3 Ml Syringe) 3 ml IVFLUSH QSHIFT [facility] Last Admin: 11/23/21 08:23 Dose: 3 ml Documented by: LAYNE Spironolactone (Spironolactone 25 Mg Tablet) 50 mg PO DAILY [facility]; Protocol Last Admin: 11/23/21 08:24 Dose: 50 mg Documented by: LAYNE Topiramate (Topiramate 100 Mg Tablet) 200 mg PO BID [facility] Last Admin: 11/23/21 08:23 Dose: 200 mg Documented by: LAYNE Zolpidem Tartrate (Zolpidem Tartrate 5 Mg Tablet) 10 mg PO BEDTIME [facility] Last Admin: 11/22/21 20:32 Dose: 10 mg Documented by: ESPERANZA Labs CBC & Chem 7: 11/20/21 12:05 11/23/21 07:54 Microbiology Microbiology Results: Microbiology 11/20/21 15:06 Blood Culture - Preliminary Blood - Venous No growth after 48 hours. 11/20/21 12:38 Blood Culture - Preliminary Blood - Venous No growth after 48 hours. Assessment and Plan (1) Weakness: Status: Acute (2) Falls: Status: Acute Plan 56 year old male with with alcoholic liver cirrhosis recent discharged following hepatic encephalopathy and NATHANIEL and coming back with weakness, slight confusion and NATHANIEL, has moderate ascietes on imaging but no evidence of peritonitis. 1/NATHANIEL--likely pre renal state and diuretics. 2/Encephalopathy--Metatolic, not necessary HE, probably related to above--resolved 3/ Weakness, falls--PT eval, and rehab 4/HLD--Statin 5/Chronic Liver disease--medical management with propranoli. Resume diuretics--aldactone 6/ HypOkalemia-improved, aldactone and supplement 6/Chronic Hyponatremia--Moderate, due to liver disease (hypervolemia)--stable, fluid restriction 7/Falls and fall risk, agree with PT about STR 7/DVT--heparin waiting for placement.covid added. Quality Stroke Does the patient have a stroke diagnosis?: No VTE Prior VTE?: No VTE Risk Level:: Medical - moderate - high VTE Device Contraindication: Treatment Not Indicated VTE Drug Contraindication: N/A - Med Ordered
--- NOTE | 2021-11-23 14:19 | PM.DS ---
DS: Providers Provider Date of Service: 11/23/21 Date of admission: 11/20/21 17:37 Primary care physician: Arben German MD DS: Diagnosis Discharge Diagnosis (1) Weakness: Status: Resolved (2) Falls: (3) NATHANIEL (acute kidney injury): DS: Summary Hospital Course Hospital Course: Date of service and discharge: 11/25/21. Patient was waiting for rehab placement. Getting discharged today-assessment and plan unchanged as below: 56 year old male with alocholic liver cirrhosis with ascites. He was discharged from the hospital for hepatic encephalopathy and discharged just 3 days ago and comes back with NATHANIEL 1.55 up from 1.1, feeling weaker, and has some confusion yet ammonia level is normal. His signficant other is saying that he is much weaker. Hospital course; patient was admitted for metabolic encephalopathy secondary to possibly NATHANIEL: Patient seems to be improved with gentle hydration, withholding diuretics- seems to be improved NATHANIEL and mentor status- patient started back on diuretics and patient will be going to rehab considering falls and generalized weak.Slowly taper Ativan in the rehab also, if possible taper Ativan . patient will benefit from less than 30 days rehab stay. Above management discussed with the patient in detail length he understand and in agreement with the above plan, time spent 50 minutes and 50% time spent on counseling. Significant findings: As above. Procedures performed: None. Treatment and response: As above. Complications: None. Time Spent with Patient Time attestation: Total time spent providing and/or coordinating discharge services: Discharge coordination time: Greater than 30 minutes Quality: Stroke Does the patient have a stroke diagnosis?: No Physical Exam Vital Signs: Vital Signs: Last Vital Signs 11/25/21: bp:120/58mmhg rr:18/min hr: 65/min temp:98.7.7*f sats:99% on ra. Temp 97.1 F 11/23/21 11:11 Pulse 63 11/23/21 11:11 Resp 18 11/23/21 11:11 BP 126/64 11/23/21 11:11 Pulse Ox 97 11/23/21 11:11 BMI result Body Mass Index 32.0 General: AO X 3, no acute distress HEENT: Sclera icteris Resp:? CTA bilateral CVS: S1,S2,RRR GI: +BS, NT, mild ditention from ascietes Skin: No rash Neuro:? motor grossly intact Psych: appropriate affect DS: Data Data Completed and Pending Completed studies during hospitalization [Text1]: Procedures Drainage of Peritoneal Cavity, Percutaneous Approach (11/11/21) Labs on day of discharge: Laboratory Results - last 24 hr 11/23/21 07:54 Potassium 3.4 creatinine yesterday : 1.1 Preliminary micro results at discharge 11/20/21 15:06 Blood Culture - Preliminary Blood - Venous No growth after 48 hours. 11/20/21 12:38 Blood Culture - Preliminary Blood - Venous No growth after 48 hours. Additional Comments Additional comments: Cervical Spine CT? 11/20/21 13:39 IMPRESSION: No acute cervical spine fracture.? ? Head CT? 11/20/21 13:39 IMPRESSION: No acute intracranial pathology. Abdomen/Pelvis CT? 11/20/21 13:40 IMPRESSION: Findings consistent with hepatic cirrhosis with hepatomegaly, moderate ascites, and portal venous varices.? ? ? Chest X-Ray? 11/20/21 13:55 IMPRESSION: No significant acute parenchymal disease. Discharge Plan Discharge Patient Disposition: Xfer SNF Discharge Diagnosis: metabolic encephalopathy probably related to nathaniel. Referrals: [facility] [Other] - 1 Day (GOING TO [facility] ONCE INS AUTHORIZATION HAS BEEN OBTAINED, TO BE TRANSPORTED [facility]IA [facility] ,) Arben German MD [Primary Care Provider] - 1 Week Discharge Medications: Continued spironolactone 25 mg tablet 2 tab PO DAILY 0RF propranolol 10 mg tablet 1 tab PO TID 0RF pravastatin 20 mg tablet 1 tab PO BEDTIME 0[facility] topiramate [Topamax] 200 mg tablet 1 tab PO BID 0RF zolpidem [Ambien] 10 mg tablet 1 tab PO BEDTIME 0[facility] risperidone 0.5 mg tablet 1 tab PO BEDTIME 0[facility] pantoprazole 40 mg tablet,delayed release (DR/EC) 1 tab PO DAILY 0RF lactulose [Constulose] 10 gram/15 mL solution 30 ml PO TID 0RF gabapentin [Neurontin] 400 mg capsule 1 cap PO TID 0RF lorazepam [Ativan] 1 mg tablet 4 tab PO DAILY Qty: 0 0RF Rx Instructions: taper slowly in the rehab, consider psych eval. Discharge Orders: Discharge Order (Routine); Ordered 11/25/21 Ordered By: Matt Rosenberg Diet: advance to usual diet Activity on Discharge: As tolerated Stand Alone Forms: Patient Portal Discharge page Care Plan Goals: patient treated f for NATHANIEL/ metabolic encephalopathy: Patient was given gentle hydration and seems to be improved - monitor BMP in rehab. Upon discharge started back on diuretics. Slowly taper Ativan in the rehab also, if possible taper Ativan . Further management out patiently. Health Concerns: as above. Plan of Treatment: as jorge. Assessment: as above. Discharge Date/Time: 11/25/21 16:19
--- NOTE | 2021-11-23 14:42 | MHC.CM.PN ---
PATIENT VACCINATED AND A BOOSTER WITH PFIZER SERIES 02/10/21 03/03/21 10/28/21 INFORMATION ADDED INTO [facility] AND UPLOADED TO BLAS MOSS
[2021-11-23 15:06] LABS: IDNOW Serial# 9DD0AD1C
[2021-11-23 15:07] LABS: COVID-19 Test Negative (Negative)
[2021-11-23 15:25] VITALS: BP 109/55; PULSE 65; RESP 17; TEMP 36.6
--- NOTE | 2021-11-23 15:54 | MHC.CM.PN ---
Addendum entered by Елена Kumar 11/23/21 16:23: 4:3-0 PM STILL NO INSURANCE AUTHORIZATION YET , PATIENT WILL RMAIN HERE UNTIL SECURING INS AUTH , INFORMED PATIENT AND FIXED WING [employer] CREW CHIEF AND STAFF NURSE OF THIS , NURSE SCHOOL TO FOLLOW UP ON 11/24/21 WILL NEED ANTICIPATED LENGTH OF STAY LESS THAN 30 DAYS WITH HX OF ANXIETY AND DEPRESSION Original Note: pending ins authorization for this patient to go to [facility] marquez test neg on 11/23/21 clinicals and d/c summary and d/c packet with indstructions sent via [employer] to replaced by [facility] update his medicare imm message discharge plan [facility] ins auth obtained [facility] for transport
[2021-11-23 20:00] VITALS: BP 111/59; PULSE 67; RESP 18; TEMP 36.3; O2SAT 96
[2021-11-23] MEDS: risperiDONE 0.5 MG TABLET PO (20:08)
[2021-11-23] MEDS: Zolpidem Tartrate 5 MG TABLET 10 MG PO (20:08)
[2021-11-23] MEDS: Pravastatin Sodium 20 MG TABLET PO (20:08)
[2021-11-24] VITALS (7 sets, daily range): BP systolic 101–114; BP diastolic 53–65; PULSE 62–70; RESP 16–18; TEMP 36–37.1; O2SAT 96–99
[2021-11-24] MEDS: Omeprazole 20 MG CAPSULE.DR PO (06:30)
[2021-11-24] MEDS: Heparin Sodium,Porcine 5,000 UNIT/ML VIAL 5000 UNIT SUBCUT ×2 (06:30→18:50)
[2021-11-24] MEDS: Topiramate 100 MG TABLET 200 MG PO ×2 (07:35→19:32)
[2021-11-24] MEDS: LORazepam 1 MG TABLET 2 MG PO (07:35)
[2021-11-24] MEDS: Propranolol HCL 10 MG TABLET PO ×2 (07:36→19:32)
[2021-11-24] MEDS: Gabapentin 400 MG CAPSULE PO ×3 (07:36→19:32)
[2021-11-24] MEDS: Spironolactone 25 MG TABLET 50 MG PO (07:36)
[2021-11-24] MEDS: Lactulose 20 GM/30 ML SOLUTION PO ×3 (07:36→19:31)
[2021-11-24] MEDS: 0.9 % Sodium Chloride Flush 3 ML SYRINGE IVFLUSH ×3 (07:37→19:32)
--- NOTE | 2021-11-24 13:08 | P.PNIM_ITS ---
Subjective Subjective Date of Service: 11/24/21 Interval History: Metabolic encephalopathy, NATHANIEL Review of Systems still seems very weak generlaised , had multiple falls at home , family current not able to take care of him Denies any chest pain or shortness of breath or abdominal pain or fever chills or cough or phlegm. Physical Exam Vital Signs: Vital Signs: Last Vital Signs Temp 98.7 F 11/24/21 11:25 Pulse 62 11/24/21 11:25 Resp 18 11/24/21 11:25 BP 101/56 L 11/24/21 11:25 Pulse Ox 97 11/24/21 11:25 BMI result Body Mass Index 32.0 General: AO X 3, no acute distress HEENT: Sclera icteris Resp:? CTA bilateral CVS: S1,S2,RRR GI: +BS, NT, mild ditention from ascietes Skin: No rash Neuro:? motor grossly intact Psych: appropriate affect Objective Data Active Medications Gabapentin (Gabapentin 400 Mg Capsule) 400 mg PO TID [facility] Last Admin: 11/24/21 07:36 Dose: 400 mg Documented by: LAYNE Heparin Sodium (Porcine) (Heparin Sodium,Porcine 5,000 Unit/Ml Vial) 5,000 unit SUBCUT Q12H [facility] Last Admin: 11/24/21 06:30 Dose: 5,000 unit Documented by: ANIBAL Lactulose (Lactulose 20 Gm/30 Ml Solution) 20 gm PO TID [facility] Last Admin: 11/24/21 07:36 Dose: 20 gm Documented by: LAYNE Lorazepam (Lorazepam 1 Mg Tablet) 2 mg PO DAILY [facility] Last Admin: 11/24/21 07:35 Dose: 2 mg Documented by: LAYNE Omeprazole (Omeprazole 20 Mg Capsule.) 20 mg PO DAILY@0630 [facility] Last Admin: 11/24/21 06:30 Dose: 20 mg Documented by: ANIBAL Pharmacy Consult (Consult Rx Perform Med Rec) 1 each MISCELLANE ONCE PRN PRN Reason: Consult order Pravastatin Sodium (Pravastatin Sodium 20 Mg Tablet) 20 mg PO BEDTIME [facility] Last Admin: 11/23/21 20:08 Dose: 20 mg Documented by: ANIBAL Propranolol HCl (Propranolol Hcl 10 Mg Tablet) 10 mg PO TID [facility]; Protocol Last Admin: 11/24/21 07:36 Dose: 10 mg Documented by: LAYNE Risperidone (Risperidone 0.5 Mg Tablet) 0.5 mg PO BEDTIME [facility] Last Admin: 11/23/21 20:08 Dose: 0.5 mg Documented by: ANIBAL Sodium Chloride (0.9 % Sodium Chloride Flush 3 Ml Syringe) 3 ml IVFLUSH QSHIFT [facility] Last Admin: 11/24/21 07:37 Dose: 3 ml Documented by: LAYNE Spironolactone (Spironolactone 25 Mg Tablet) 50 mg PO DAILY [facility]; Protocol Last Admin: 11/24/21 07:36 Dose: 50 mg Documented by: LAYNE Topiramate (Topiramate 100 Mg Tablet) 200 mg PO BID [facility] Last Admin: 11/24/21 07:35 Dose: 200 mg Documented by: LAYNE Zolpidem Tartrate (Zolpidem Tartrate 5 Mg Tablet) 10 mg PO BEDTIME [facility] Last Admin: 11/23/21 20:08 Dose: 10 mg Documented by: ANIBAL Labs CBC & Chem 7: 11/20/21 12:05 11/23/21 07:54 Labs: Laboratory Results - last 24 hr 11/23/21 14:40 COVID-19 ([facility]) Negative COVID-19 Clin Com See Note Assessment and Plan (1) Weakness: Status: Acute Plan 56 year old male with with alcoholic liver cirrhosis recent discharged following hepatic encephalopathy and NATHANIEL and coming back with weakness, slight confusion and NATHANIEL, has moderate ascietes on imaging but no evidence of peritonitis. 1/NATHANIEL--likely pre renal state and diuretics. 2/Encephalopathy--Metatolic, not necessary HE, probably related to above--resolved. 3/ Weakness, falls--PT eval-rehab 4/HLD--Statin 5/Chronic Liver disease--medical management with propranoli. Resume diuretics--aldactone 6/ HypOkalemia-improved, aldactone and supplement 6/Chronic Hyponatremia--Moderate, due to liver disease (hypervolemia)--stable, fluid restriction 7/Falls and fall risk, agree with PT about STR 7/DVT--heparin waiting for placement.covid repeated 2 neg Quality Stroke Does the patient have a stroke diagnosis?: No VTE Prior VTE?: No VTE Risk Level:: Medical - moderate - high VTE Device Contraindication: Treatment Not Indicated VTE Drug Contraindication: N/A - Med Ordered
[2021-11-24] MEDS: Pravastatin Sodium 20 MG TABLET PO (19:32)
[2021-11-24] MEDS: Zolpidem Tartrate 5 MG TABLET 10 MG PO (19:32)
[2021-11-24] MEDS: risperiDONE 0.5 MG TABLET PO (19:32)
[2021-11-25 04:00] VITALS: BP 115/58; PULSE 69; RESP 18; TEMP 36.1; O2SAT 97
[2021-11-25] MEDS: Omeprazole 20 MG CAPSULE.DR PO (05:52)
[2021-11-25] MEDS: Heparin Sodium,Porcine 5,000 UNIT/ML VIAL 5000 UNIT SUBCUT (05:52)
[2021-11-25 07:42] VITALS: BP 120/58; PULSE 65; RESP 18; TEMP 37.1; O2SAT 99
[2021-11-25] MEDS: LORazepam 1 MG TABLET 2 MG PO (07:49)
[2021-11-25] MEDS: Lactulose 20 GM/30 ML SOLUTION PO (07:49)
[2021-11-25] MEDS: Topiramate 100 MG TABLET 200 MG PO (07:52)
[2021-11-25] MEDS: Propranolol HCL 10 MG TABLET PO (07:52)
[2021-11-25] MEDS: Gabapentin 400 MG CAPSULE PO (07:52)
[2021-11-25] MEDS: Spironolactone 25 MG TABLET 50 MG PO (07:52)
[2021-11-25] MEDS: 0.9 % Sodium Chloride Flush 3 ML SYRINGE IVFLUSH (07:52)
[2021-11-25] MEDS: Thiamine HCL 100 MG TABLET PO (10:43)
[2021-11-25] MEDS: Folic Acid 1 MG TABLET PO (10:43)
[2021-11-25 11:21] VITALS: BP 120/58; PULSE 65; O2SAT 99
[2021-11-25 12:00] VITALS: BP 132/62; PULSE 75; RESP 15; TEMP 36.3; O2SAT 95
--- NOTE | 2021-11-25 14:09 | HO.PM.IMPN ---
Subjective Subjective Date of Service: 11/25/21 Physical Exam Vital Signs: Vital Signs: Last Vital Signs Temp 98.7 F 11/25/21 07:42 Pulse 65 11/25/21 11:21 Resp 18 11/25/21 07:42 BP 120/58 L 11/25/21 11:21 Pulse Ox 99 11/25/21 11:21 BMI result Body Mass Index 32.0 Objective Data Active Medications Folic Acid (Folic Acid 1 Mg Tablet) 1 mg PO DAILY [facility] Last Admin: 11/25/21 10:43 Dose: 1 mg Documented by: MARCO ANTONIO Gabapentin (Gabapentin 400 Mg Capsule) 400 mg PO TID [facility] Last Admin: 11/25/21 07:52 Dose: 400 mg Documented by: MARCO ANTONIO Heparin Sodium (Porcine) (Heparin Sodium,Porcine 5,000 Unit/Ml Vial) 5,000 unit SUBCUT Q12H [facility] Last Admin: 11/25/21 05:52 Dose: 5,000 unit Documented by: BINTA Lactulose (Lactulose 20 Gm/30 Ml Solution) 20 gm PO TID [facility] Last Admin: 11/25/21 07:49 Dose: 20 gm Documented by: MARCO ANTONIO Lorazepam (Lorazepam 1 Mg Tablet) 2 mg PO DAILY [facility] Last Admin: 11/25/21 07:49 Dose: 2 mg Documented by: MARCO ANTONIO Omeprazole (Omeprazole 20 Mg Capsule.Dr) 20 mg PO DAILY@0630 [facility] Last Admin: 11/25/21 05:52 Dose: 20 mg Documented by: BINTA Pharmacy Consult (Consult Rx Perform Med Rec) 1 each MISCELLANE ONCE PRN PRN Reason: Consult order Pravastatin Sodium (Pravastatin Sodium 20 Mg Tablet) 20 mg PO BEDTIME [facility] Last Admin: 11/24/21 19:32 Dose: 20 mg Documented by: BINTA Propranolol HCl (Propranolol Hcl 10 Mg Tablet) 10 mg PO TID [facility]; Protocol Last Admin: 11/25/21 07:52 Dose: 10 mg Documented by: MARCO ANTONIO Risperidone (Risperidone 0.5 Mg Tablet) 0.5 mg PO BEDTIME [facility] Last Admin: 11/24/21 19:32 Dose: 0.5 mg Documented by: BINTA Sodium Chloride (0.9 % Sodium Chloride Flush 3 Ml Syringe) 3 ml IVFLUSH QSHIFT [facility] Last Admin: 11/25/21 07:52 Dose: 3 ml Documented by: MARCO ANTONIO Spironolactone (Spironolactone 25 Mg Tablet) 50 mg PO DAILY [facility]; Protocol Last Admin: 11/25/21 07:52 Dose: 50 mg Documented by: MARCO ANTONIO Thiamine HCl (Thiamine Hcl 100 Mg Tablet) 100 mg PO DAILY [facility] Last Admin: 11/25/21 10:43 Dose: 100 mg Documented by: MARCO ANTONIO Topiramate (Topiramate 100 Mg Tablet) 200 mg PO BID [facility] Last Admin: 11/25/21 07:52 Dose: 200 mg Documented by: MARCO ANTONIO Zolpidem Tartrate (Zolpidem Tartrate 5 Mg Tablet) 10 mg PO BEDTIME [facility] Last Admin: 11/24/21 19:32 Dose: 10 mg Documented by: BINTA Labs CBC & Chem 7: 11/20/21 12:05 11/23/21 07:54 Quality Stroke Does the patient have a stroke diagnosis?: No VTE Prior VTE?: No VTE Risk Level:: Medical - moderate - high VTE Device Contraindication: Treatment Not Indicated VTE Drug Contraindication: N/A - Med Ordered
[2021-11-25 15:28] VITALS: BP 109/57; PULSE 68; RESP 15; TEMP 36; O2SAT 96
== END 2021-11-25 16:19 | disposition skilled nursing facility (03) | DRG 71 ==
LOC: HO.ED 17:14 → HO.EDOVER 17:44 → HO.S3 11-21 17:27
PROVIDERS: Physician Assistant Medical; Admitting Provider Internal Medicine; Emergency Provider Emergency Medicine; PCP Internal Medicine; Visit Provider Internal Medicine
DX: G93.41 Metabolic encephalopathy (principal); E87.1 Hypo-osmolality and hyponatremia; N17.9 Acute kidney failure, unspecified; K70.31 Alcoholic cirrhosis of liver with ascites; I10 Essential (primary) hypertension; E78.5 Hyperlipidemia, unspecified; S01.01XA Laceration without foreign body of scalp, initial encounter; W18.30XA Fall on same level, unspecified, initial encounter; R29.6 Repeated falls; E87.6 Hypokalemia; Z91.81 History of falling; F10.11 Alcohol abuse, in remission; Y93.9 Activity, unspecified; Y92.003 Bedroom of unspecified non-institutional (private) residence as the place of occurrence of the external cause; Z20.822 Contact with and (suspected) exposure to COVID-19; Z85.46 Personal history of malignant neoplasm of prostate; Z87.891 Personal history of nicotine dependence; Z79.899 Other long term (current) drug therapy
CPT/HCPCS: 36415; 70450; 71045; 72125; 72192; 74176; 80048; 80053; 82077; 82140; 82248; 82550; 83605; 83690; 83735; 83880; 84132; 84484; 85025; 85610; 85730; 86140; 87040; 87635; 93005; 96360; 97116; 97162; 99285; 99291

== ENCOUNTER 2021-12-06 15:19 | Inpatient (IN) | payer MEDICARE, SELFPAY ==
--- NOTE | ~2021-12-06 | CT_ITS ---
EXAMINATION: CT HEAD WITHOUT CONTRAST CLINICAL INFORMATION: Altered mental status, possibly alcohol use. COMPARISON: CT head dated from 11/21/2021. TECHNIQUE: Contiguous axial imaging was performed from the skull base to vertex without intravenous administration of contrast. This CT examination was performed using dose optimization techniques as appropriate, variously including the following: *Automated exposure control *Adjustment of mA and/or kV according to patient size (this includes techniques or standardized protocols for targeted exams where dose is matched to indication/reason for exam; i.e. extremities or head) *Use of iterative reconstruction technique DLP: 631 mGy-cm FINDINGS: There is no evidence of acute intracranial hemorrhage or edematous territorial infarction. A few foci of hypoattenuation in the periventricular and deep white matter are consistent with mild microangiopathy. [place]-white matter differentiation is preserved. The ventricles are normal in size and configuration. No evidence for obstructive hydrocephalus. No abnormal mass effect or midline shift. No extra-axial fluid collections. No acute soft tissue or osseous abnormalities. The mastoid air cells and paranasal sinuses are clear. CT/CT head/brain wo con IMPRESSION: No evidence of acute intracranial hemorrhage or edematous territorial infarction.
--- NOTE | ~2021-12-06 | US_ITS ---
EXAMINATION: ULTRASOUND-GUIDED PARACENTESIS. CLINICAL INFORMATION: Ascites. COMPARISON: None TECHNIQUE: Following explaining ultrasound-guided paracentesis procedure, benefits and risk, a written consent was obtained. Patient was placed supine on ultrasound stretcher and preliminary ultrasound imaging was obtained through the 4 quadrants. An optimal site was selected along the left lower quadrant and marked. The marked site was cleaned and draped in usual sterile manner. 1% lidocaine was injected puncture site. Through a small skin incision a 5 Malagasy Yueh catheter was advanced into the peritoneal space. After observing fluid return, stylet was withdrawn and catheter connected to vacuum bottle via connecting cannula. After obtaining all fluid and observing no more fluid return, the catheter was withdrawn and complete hemostasis achieved at puncture site. Sterile dressing applied postprocedure. Patient tolerated procedure extremely well. FINDINGS: On preliminary ultrasound imaging there is moderate free fluid in the peritoneal. Approximately 5.5 L of clear genaro color fluid was drained from the left upper quadrant. Part of this fluid was sent to lab as per physician's request. US/US paracentesis abd w/image IMPRESSION: Successful diagnostic and therapeutic ultrasound-guided paracentesis performed.
--- NOTE | 2021-12-06 15:35 | ECG_ITS ---
Test Reason : AMS Blood Pressure : / mmHG Vent. Rate : 067 BPM Atrial Rate : 067 BPM P-R Int : 194 ms QRS Dur : 112 ms QT Int : 450 ms P-R-T Axes : 044 -18 037 degrees QTc Int : 475 ms Artifact in tracing Normal sinus rhythm Left axis deviation Slight QT prolongation When compared with ECG of 20-NOV-2021 12:11, QT has shortened Referred By: Darlene Tian Electronically Signed By:COREEN BRADEN
[2021-12-06 15:50] VITALS: BP 107/64; BP 109/52; PULSE 68; PULSE 69; RESP 16; TEMP 37; O2SAT 96; O2SAT 98; BMI 33.3
--- NOTE | 2021-12-06 15:56 | ED.GENADULT ---
HPI - General Adult General Chief complaint: Overdose Stated complaint: AMS,LETHARGY ? RELATED TO PRESCRIBED MEDICATION Time Seen by Provider: 12/06/21 15:21 Source: EMS Mode of arrival: EMS Limitations: altered mental status History of Present Illness HPI narrative: Patient comes to the emergency room via EMS. Patient reports that his fiancee called the ambulance. EMS reports that the patient has worsening altered mental status. They got report from the patient's family that he usually takes 1 mg of Ativan 4 times a day, but he might have taking 4 mg together all 09:00, almost 7 hours ago. Patient is very somnolent, can answer yes no questions. From previous notes, patient had has been very weak. However he is able to hold a normal conversation. Patient was discharged on November 25 from this hospital. From patient's discharge notes seems that patient was supposed to go to a short-term rehab for 30 days. However, patient is coming from home. Related Data Home Medications Medication Instructions Recorded Confirmed lactulose 10 gram/15 mL oral 30 ml PO TID 11/11/21 11/20/21 solution (Constulose) pantoprazole 40 mg tablet,delayed 1 tab PO DAILY 11/11/21 11/20/21 release pravastatin 20 mg tablet 1 tab PO BEDTIME 11/11/21 11/20/21 propranolol 10 mg tablet 1 tab PO TID 11/11/21 11/20/21 risperidone 0.5 mg tablet 1 tab PO BEDTIME 11/11/21 11/20/21 spironolactone 25 mg tablet 2 tab PO DAILY 11/11/21 11/20/21 topiramate 200 mg tablet (Topamax) 1 tab PO BID 11/11/21 11/20/21 zolpidem 10 mg tablet (Ambien) 1 tab PO BEDTIME 11/11/21 11/20/21 gabapentin 400 mg capsule 1 cap PO TID 11/20/21 11/20/21 (Neurontin) Previous Rx's Medication Instructions Recorded lorazepam 1 mg tablet (Ativan) 4 tab PO DAILY #0 tab 11/23/21 Allergies Allergy/AdvReac Type Severity Reaction Status Date / Time Fish Containing Products Allergy Severe THROAT Verified 12/06/21 15:50 SWELLING peanut [Peanut] Allergy Severe THROAT Verified 12/06/21 15:50 SWELLING Review of Systems Review of Systems: Yes Unobtainable due to mental condition PMFSH Past Medical History Medical History Abdominal ascites Acute metabolic encephalopathy NATHANIEL (acute kidney injury) Alcoholic cirrhosis of liver with ascites Anxiety Depression Falls Hepatic cirrhosis Hyperlipidemia Hypertension Prostate cancer Social History Social History Household Members: Other Household Members Other:: [facility] Do you presently have visiting nurse or other home services: Yes Alcohol intake: unknown Patient Tobacco Use Status: Former Tobacco user Tobacco use type: Cigarette Advance Directives: Yes Advance Directives on File: Yes Advance Directives Date on File: 11/11/21 service: No Current occupational status: disabled Physical Exam ED Vital Signs: Vital Signs - 24 hr 12/06/21 15:50 12/06/21 18:02 Temperature 98.6 F Pulse Rate 68 64 Respiratory Rate 16 14 Blood Pressure 109/52 L 96/60 Pulse Oximetry 98 98 BMI result Body Mass Index 33.3 Const Other: Appearance: Alert. Oriented x1 only to name. No acute distress. Seems very weak Eyes: Pupils equal, round and reactive to light. ENT: Pharynx normal. Neck: Normal inspection. Neck supple. No lymph nodes noted. No crepitus CVS: Normal heart rate and rhythm. Pulses normal. Normal S1 and S2 Respiratory: No respiratory distress. Breath sounds normal. No Wheezing. No rales Abdomen: Soft , distended, non tender Skin: Skin warm and dry. Diffuse icteric Extremities: +2 pitting edema bilaterally, No Lacerations. No Rash Neuro: Oriented X 1. No motor deficit. No sensory deficit. Moving all extermities. No slurred speech. Course Course Course Narrative: Patient's fiancee is now at bedside. Patient states that over the last 3-4 weeks the patient has been gradually declining mentally, gradually becoming more lethargic. The fiancee specifies that the patient does take 4 mg of Ativan at once every day in the morning. However, this morning approximately 30 minutes after taking the Ativan, patient was found on his knees on the floor. Patient had a fall and head laceration last week. Also, patient did go to rehab for 2 weeks, then he was discharged home Patient's white blood cell count is chronically elevated, now at baseline. Sepsis is not suspected. SBP not suspected. Patient has no abdominal pain or any peritoneal signs. Patient's sodium is 124, gentle hydration started. Patient will be admitted I discussed the patient with Dr. Love, patient being admitted Medical Decision Making Lab Data Result diagrams: 12/06/21 16:16 12/06/21 16:16 Labs: Lab Results 12/06/21 12/06/21 12/06/21 Range/Units 16:15 16:15 16:15 WBC (4.8-10.8) X10*3/uL RBC (4.60-5.80) X10*6/uL Hgb (14.0-18.0) g/dl Hct (42.0-52.0) % MCV (80.0-98.0) fL MCH (27.0-33.0) pg MCHC (31.0-36.0) g/dl RDW (11.0-16.0) % Plt Count (160-400) X10*3/uL MPV (9.4-12.4) fL Immature Gran % (Auto) (0.0-0.4) % Neut % (Auto) (45-73) % Lymph % (Auto) (20-40) % [place] % (Auto) (2-11) % Eos % (Auto) (0-4) % Baso % (Auto) (0-2) % Lymph # (Auto) (1.2-4.9) X10*3/uL [place] # (Auto) (0.1-1.2) X10*3/uL Eos # (Auto) (0.0-0.4) X10*3/uL Baso # (Auto) (0.0-0.2) X10*3/uL Abs Immat Gran (auto) (0.00-0.03) X10*3/uL Absolute Neuts (auto) (2.0-8.3) x10*3/uL Absolute Nucleated RBC (0.0-0.012) X10*3/uL Nucleated RBC % (auto) (0.0-0.2) /100WBC PT (9.9-13.0) SEC INR (0.9-1.1) Sodium (135-145) mmol/L Potassium (3.3-5.1) mmol/L Chloride (96-108) mmol/L Carbon Dioxide (22-29) mmol/L Anion Gap (12-20) BUN (9-16) mg/dL Creatinine (0.5-1.4) mg/dL Estim Creat Clear Calc Estimated GFR Random Glucose (60-115) mg/dL Lactic Acid (0.5-2.0) mmol/L Calcium (8.4-10.2) mg/dL Magnesium (1.6-2.6) mg/dL Total Bilirubin (0.0-1.0) mg/dL Direct Bilirubin (0.0-0.5) mg/dL AST (5-37) U/L ALT (0-40) U/L Alkaline Phosphatase (39-117) U/L Ammonia (13-55) umol/L Troponin I High Sens < 3.5 (<3.5-35.0) ng/L Total Protein (6.5-8.0) g/dL Albumin (3.5-5.0) g/dL Lipase (8-78) U/L TSH 1.13 (0.32-4.0) uIU/mL Urine Color Urine Appearance Urine pH (5.0-8.0) Ur Specific [place] (1.005-1.025) Urine Protein (NEG-TRACE) MG/DL Urine Glucose (UA) (NEG) MG/DL Urine Ketones (NEG) MG/DL Urine Blood (NEG) Urine Nitrite (NEG) Ur Leukocyte Esterase (NEG) Urine Opiates Screen (Not Detect) Urine Fentanyl Screen (Not Detect) Ur Barbiturates Screen (Not Detect) Ur Phencyclidine Scrn (Not Detect) Ur Amphetamines Screen (Not Detect) U Benzodiazepines Scrn (Not Detect) Urine Cocaine Screen (Not Detect) U Marijuana (THC) Screen (Not Detect) Ethyl Alcohol mg/dL COVID-19 ([facility]) Negative (Negative) COVID-19 Clin Com See Note 12/06/21 12/06/21 12/06/21 Range/Units 16:15 16:16 16:16 WBC 15.7 H (4.8-10.8) X10*3/uL RBC 2.87 L (4.60-5.80) X10*6/uL Hgb 8.9 L (14.0-18.0) g/dl Hct 26.9 L (42.0-52.0) % MCV 93.7 (80.0-98.0) fL MCH 31.0 (27.0-33.0) pg MCHC 33.1 (31.0-36.0) g/dl RDW 16.6 H (11.0-16.0) % Plt Count 212 (160-400) X10*3/uL MPV 10.3 (9.4-12.4) fL Immature Gran % (Auto) 0.4 (0.0-0.4) % Neut % (Auto) 67.5 (45-73) % Lymph % (Auto) 20.9 (20-40) % [place] % (Auto) 8.6 (2-11) % Eos % (Auto) 2.2 (0-4) % Baso % (Auto) 0.4 (0-2) % Lymph # (Auto) 3.3 (1.2-4.9) X10*3/uL [place] # (Auto) 1.4 H (0.1-1.2) X10*3/uL Eos # (Auto) 0.3 (0.0-0.4) X10*3/uL Baso # (Auto) 0.1 (0.0-0.2) X10*3/uL Abs Immat Gran (auto) 0.06 H (0.00-0.03) X10*3/uL Absolute Neuts (auto) 10.6 H (2.0-8.3) x10*3/uL Absolute Nucleated RBC 0.000 (0.0-0.012) X10*3/uL Nucleated RBC % (auto) 0.0 (0.0-0.2) /100WBC PT 16.3 H (9.9-13.0) SEC INR 1.4 H (0.9-1.1) Sodium (135-145) mmol/L Potassium (3.3-5.1) mmol/L Chloride (96-108) mmol/L Carbon Dioxide (22-29) mmol/L Anion Gap (12-20) BUN (9-16) mg/dL Creatinine (0.5-1.4) mg/dL Estim Creat Clear Calc Estimated GFR Random Glucose (60-115) mg/dL Lactic Acid (0.5-2.0) mmol/L Calcium (8.4-10.2) mg/dL Magnesium (1.6-2.6) mg/dL Total Bilirubin (0.0-1.0) mg/dL Direct Bilirubin (0.0-0.5) mg/dL AST (5-37) U/L ALT (0-40) U/L Alkaline Phosphatase (39-117) U/L Ammonia (13-55) umol/L Troponin I High Sens (<3.5-35.0) ng/L Total Protein (6.5-8.0) g/dL Albumin (3.5-5.0) g/dL Lipase (8-78) U/L TSH (0.32-4.0) uIU/mL Urine Color Urine Appearance Urine pH (5.0-8.0) Ur Specific [place] (1.005-1.025) Urine Protein (NEG-TRACE) MG/DL Urine Glucose (UA) (NEG) MG/DL Urine Ketones (NEG) MG/DL Urine Blood (NEG) Urine Nitrite (NEG) Ur Leukocyte Esterase (NEG) Urine Opiates Screen (Not Detect) Urine Fentanyl Screen (Not Detect) Ur Barbiturates Screen (Not Detect) Ur Phencyclidine Scrn (Not Detect) Ur Amphetamines Screen (Not Detect) U Benzodiazepines Scrn (Not Detect) Urine Cocaine Screen (Not Detect) U Marijuana (THC) Screen (Not Detect) Ethyl Alcohol < 10 mg/dL COVID-19 ([facility]) (Negative) COVID-19 Clin Com 12/06/21 12/06/21 12/06/21 Range/Units 16:16 16:16 16:16 WBC (4.8-10.8) X10*3/uL RBC (4.60-5.80) X10*6/uL Hgb (14.0-18.0) g/dl Hct (42.0-52.0) % MCV (80.0-98.0) fL MCH (27.0-33.0) pg MCHC (31.0-36.0) g/dl RDW (11.0-16.0) % Plt Count (160-400) X10*3/uL MPV (9.4-12.4) fL Immature Gran % (Auto) (0.0-0.4) % Neut % (Auto) (45-73) % Lymph % (Auto) (20-40) % [place] % (Auto) (2-11) % Eos % (Auto) (0-4) % Baso % (Auto) (0-2) % Lymph # (Auto) (1.2-4.9) X10*3/uL [place] # (Auto) (0.1-1.2) X10*3/uL Eos # (Auto) (0.0-0.4) X10*3/uL Baso # (Auto) (0.0-0.2) X10*3/uL Abs Immat Gran (auto) (0.00-0.03) X10*3/uL Absolute Neuts (auto) (2.0-8.3) x10*3/uL Absolute Nucleated RBC (0.0-0.012) X10*3/uL Nucleated RBC % (auto) (0.0-0.2) /100WBC PT (9.9-13.0) SEC INR (0.9-1.1) Sodium 124 L (135-145) mmol/L Potassium 4.8 D (3.3-5.1) mmol/L Chloride 100 (96-108) mmol/L Carbon Dioxide 17 L (22-29) mmol/L Anion Gap 12 (12-20) BUN 22 H (9-16) mg/dL Creatinine 1.16 (0.5-1.4) mg/dL Estim Creat Clear Calc 73.6 Estimated GFR > 60 Random Glucose 102 (60-115) mg/dL Lactic Acid 1.8 (0.5-2.0) mmol/L Calcium 8.2 L D (8.4-10.2) mg/dL Magnesium 2.3 (1.6-2.6) mg/dL Total Bilirubin 3.0 H (0.0-1.0) mg/dL Direct Bilirubin 1.7 H (0.0-0.5) mg/dL AST 47 H (5-37) U/L ALT 17 (0-40) U/L Alkaline Phosphatase 320 H D (39-117) U/L Ammonia 45 (13-55) umol/L Troponin I High Sens (<3.5-35.0) ng/L Total Protein 8.1 H (6.5-8.0) g/dL Albumin 2.8 L D (3.5-5.0) g/dL Lipase 83 H (8-78) U/L TSH (0.32-4.0) uIU/mL Urine Color Urine Appearance Urine pH (5.0-8.0) Ur Specific [place] (1.005-1.025) Urine Protein (NEG-TRACE) MG/DL Urine Glucose (UA) (NEG) MG/DL Urine Ketones (NEG) MG/DL Urine Blood (NEG) Urine Nitrite (NEG) Ur Leukocyte Esterase (NEG) Urine Opiates Screen (Not Detect) Urine Fentanyl Screen (Not Detect) Ur Barbiturates Screen (Not Detect) Ur Phencyclidine Scrn (Not Detect) Ur Amphetamines Screen (Not Detect) U Benzodiazepines Scrn (Not Detect) Urine Cocaine Screen (Not Detect) U Marijuana (THC) Screen (Not Detect) Ethyl Alcohol mg/dL COVID-19 ([facility]) (Negative) COVID-19 Clin Com 12/06/21 12/06/21 Range/Units 16:21 16:21 WBC (4.8-10.8) X10*3/uL RBC (4.60-5.80) X10*6/uL Hgb (14.0-18.0) g/dl Hct (42.0-52.0) % MCV (80.0-98.0) fL MCH (27.0-33.0) pg MCHC (31.0-36.0) g/dl RDW (11.0-16.0) % Plt Count (160-400) X10*3/uL MPV (9.4-12.4) fL Immature Gran % (Auto) (0.0-0.4) % Neut % (Auto) (45-73) % Lymph % (Auto) (20-40) % [place] % (Auto) (2-11) % Eos % (Auto) (0-4) % Baso % (Auto) (0-2) % Lymph # (Auto) (1.2-4.9) X10*3/uL [place] # (Auto) (0.1-1.2) X10*3/uL Eos # (Auto) (0.0-0.4) X10*3/uL Baso # (Auto) (0.0-0.2) X10*3/uL Abs Immat Gran (auto) (0.00-0.03) X10*3/uL Absolute Neuts (auto) (2.0-8.3) x10*3/uL Absolute Nucleated RBC (0.0-0.012) X10*3/uL Nucleated RBC % (auto) (0.0-0.2) /100WBC PT (9.9-13.0) SEC INR (0.9-1.1) Sodium (135-145) mmol/L Potassium (3.3-5.1) mmol/L Chloride (96-108) mmol/L Carbon Dioxide (22-29) mmol/L Anion Gap (12-20) BUN (9-16) mg/dL Creatinine (0.5-1.4) mg/dL Estim Creat Clear Calc Estimated GFR Random Glucose (60-115) mg/dL Lactic Acid (0.5-2.0) mmol/L Calcium (8.4-10.2) mg/dL Magnesium (1.6-2.6) mg/dL Total Bilirubin (0.0-1.0) mg/dL Direct Bilirubin (0.0-0.5) mg/dL AST (5-37) U/L ALT (0-40) U/L Alkaline Phosphatase (39-117) U/L Ammonia (13-55) umol/L Troponin I High Sens (<3.5-35.0) ng/L Total Protein (6.5-8.0) g/dL Albumin (3.5-5.0) g/dL Lipase (8-78) U/L TSH (0.32-4.0) uIU/mL Urine Color YELLOW Urine Appearance CLEAR Urine pH 6.0 (5.0-8.0) Ur Specific [place] 1.020 (1.005-1.025) Urine Protein NEG (NEG-TRACE) MG/DL Urine Glucose (UA) NEG (NEG) MG/DL Urine Ketones NEG (NEG) MG/DL Urine Blood NEG (NEG) Urine Nitrite NEG (NEG) Ur Leukocyte Esterase NEG (NEG) Urine Opiates Screen Not Detected (Not Detect) Urine Fentanyl Screen Not Detected (Not Detect) Ur Barbiturates Screen Not Detected (Not Detect) Ur Phencyclidine Scrn Not Detected (Not Detect) Ur Amphetamines Screen Not Detected (Not Detect) U Benzodiazepines Scrn Not Detected (Not Detect) Urine Cocaine Screen Not Detected (Not Detect) U Marijuana (THC) Screen Not Detected (Not Detect) Ethyl Alcohol mg/dL COVID-19 ([facility]) (Negative) COVID-19 Clin Com Imaging Data CT scan - head: Radiologist's impression: FINDINGS: There is no evidence of acute intracranial hemorrhage or edematous territorial infarction. A few foci of hypoattenuation in the periventricular and deep white matter are consistent with mild microangiopathy. [place]-white matter differentiation is preserved. The ventricles are normal in size and configuration. No evidence for obstructive hydrocephalus. No abnormal mass effect or midline shift. No extra-axial fluid collections. No acute soft tissue or osseous abnormalities. The mastoid air cells and paranasal sinuses are clear. ? CT/CT head/brain wo con IMPRESSION: No evidence of acute intracranial hemorrhage or edematous territorial infarction. ? Discharge Plan Discharge Clinical Impression: Acute hyponatremia, Encephalopathy Patient Disposition: Admitted As Inpatient Prescriptions: No Action spironolactone 25 mg tablet 2 tab PO DAILY 0RF propranolol 10 mg tablet 1 tab PO TID 0RF pravastatin 20 mg tablet 1 tab PO BEDTIME 0RF topiramate [Topamax] 200 mg tablet 1 tab PO BID 0RF zolpidem [Ambien] 10 mg tablet 1 tab PO BEDTIME 0RF risperidone 0.5 mg tablet 1 tab PO BEDTIME 0RF pantoprazole 40 mg tablet,delayed release (DR/EC) 1 tab PO DAILY 0RF lactulose [Constulose] 10 gram/15 mL solution 30 ml PO TID 0RF gabapentin [Neurontin] 400 mg capsule 1 cap PO TID 0RF lorazepam [Ativan] 1 mg tablet 4 tab PO DAILY Qty: 0 0RF Rx Instructions: taper slowly in the rehab, consider psych eval.
[2021-12-06 16:22] LABS: MANUAL DIFF FLAG NO
[2021-12-06 16:25] LABS: Basophils Absolute Auto 0.1 X10*3/uL (0.0-0.2); Basophils Percent Auto 0.4 % (0-2); Eosinophils Absolute Auto 0.3 X10*3/uL (0.0-0.4); Eosinophils Percent Auto 2.2 % (0-4); Hematocrit 26.9 % (42.0-52.0); Hemoglobin 8.9 g/dl (14.0-18.0); Imm Gran Abs Auto 0.06 X10*3/uL (0.00-0.03); Imm Gran Pct Auto 0.4 % (0.0-0.4); Lymphocytes Absolute Auto 3.3 X10*3/uL (1.2-4.9); Lymphocytes Percent Auto 20.9 % (20-40); Mean Corpuscular HGB Conc 33.1 g/dl (31.0-36.0); Mean Corpuscular Volume 93.7 fL (80.0-98.0); Mean Platelet Volume 10.3 fL (9.4-12.4); Monocytes Absolute Auto 1.4 X10*3/uL (0.1-1.2); Monocytes Percent Auto 8.6 % (2-11); Neutrophils Absolute Auto 10.6 x10*3/uL (2.0-8.3); Neutrophils Percent Auto 67.5 % (45-73); Platelet Count 212 X10*3/uL (160-400); Red Blood Count 2.87 X10*6/uL (4.60-5.80); Red Cell Distribution Width 16.6 % (11.0-16.0); White Blood Count 15.7 X10*3/uL (4.8-10.8)
[2021-12-06 16:28] LABS: Appearance Urine CLEAR; Color Urine YELLOW; Glucose Urine UA NEG (NEG); Leukocyte Esterase Urine NEG (NEG); Nitrite Urine NEG (NEG); Urine Blood NEG (NEG); Urine Ketones NEG (NEG); Urine Protein NEG (NEG-TRACE)
[2021-12-06 16:29] LABS: INTERNATIONAL NORM RATIO 1.4 (0.9-1.1); Prothrombin Time 16.3 SEC (9.9-13.0)
[2021-12-06 16:30] LABS: Ammonia 45 umol/L (13-55)
[2021-12-06 16:37] LABS: Lactic Acid 1.8 mmol/L (0.5-2.0)
[2021-12-06 16:39] LABS: Ethanol < 10 mg/dL; IDNOW Serial# 55D5AD1C
[2021-12-06 16:40] LABS: COVID-19 Test Negative (Negative)
[2021-12-06 16:42] LABS: Amphetamine Screen Urine Not Detected (Not Detect); Barbiturates, Urine Not Detected (Not Detect); Benzodiazepines Screen Urine Not Detected (Not Detect); Cannabinoid Screen Urine Not Detected (Not Detect); Cocaine Screen Urine Not Detected (Not Detect); Fentanyl, urine Not Detected (Not Detect); Opiate Screen Urine Not Detected (Not Detect); Phencyclidine Screen Urine Not Detected (Not Detect)
[2021-12-06 16:44] LABS: Troponin-I High Sensitivity < 3.5 ng/L (<3.5-35.0)
[2021-12-06 16:46] LABS: Alanine Aminotransferase 17 U/L (0-40); Albumin Level 2.8 g/dL (3.5-5.0); Alkaline Phosphatase 320 U/L (39-117); Aspartate Amino Transferase 47 U/L (5-37); Bilirubin Direct 1.7 mg/dL (0.0-0.5); Blood Urea Nitrogen 22 mg/dL (9-16); Calcium 8.2 mg/dL (8.4-10.2); Creatinine Clr Calc Pharmacy 73.6; Estimated Glomerular Filt Rate > 60; Glucose Random 102 mg/dL (60-115); Lipase 83 U/L (8-78); Magnesium 2.3 mg/dL (1.6-2.6); Total Protein 8.1 g/dL (6.5-8.0)
[2021-12-06 16:56] LABS: Anion Gap 12 (12-20); Carbon Dioxide 17 mmol/L (22-29); Chloride 100 mmol/L (96-108); Potassium 4.8 mmol/L (3.3-5.1); Sodium 124 mmol/L (135-145)
[2021-12-06 17:00] LABS: TSH reflex Free T4 1.13 uIU/mL (0.32-4.0)
[2021-12-06] MEDS: 0.9 % Sodium Chloride 1,000 ML 200 ML IVCONT ×2 (18:01→22:44)
[2021-12-06 18:02] VITALS: BP 96/60; PULSE 64; RESP 14; O2SAT 98
[2021-12-06 20:38] VITALS: BP 96/64; PULSE 62; RESP 15; O2SAT 95
[2021-12-06] MEDS: Heparin Sodium,Porcine 5,000 UNIT/ML VIAL 5000 UNIT SUBCUT (20:39)
[2021-12-06] MEDS: Lactulose 20 GM/30 ML SOLUTION PO (20:41)
[2021-12-06] MEDS: Topiramate 100 MG TABLET 200 MG PO (20:42)
[2021-12-06] MEDS: Gabapentin 400 MG CAPSULE PO (20:43)
[2021-12-06] MEDS: Propranolol HCL 10 MG TABLET PO (20:43)
[2021-12-06] MEDS: risperiDONE 0.5 MG TABLET PO (20:44)
[2021-12-06 22:45] VITALS: BP 106/67; PULSE 64; RESP 15; O2SAT 97
[2021-12-07] VITALS (7 sets, daily range): BP systolic 87–107; BP diastolic 48–65; PULSE 60–80; RESP 14–18; TEMP 36.2–36.9; O2SAT 94–99
--- NOTE | 2021-12-07 01:19 | PC.NURSE ---
PATIENT WAS INC OF LARGE AMOUNT OF DARK STOOL ,BEDDING WAS CHANGE AND PATIENT WAS CLEAN UP .
[2021-12-07] MEDS: 0.9 % Sodium Chloride Flush 3 ML SYRINGE IVFLUSH (01:54)
[2021-12-07 03:06] LABS: Anion Gap 10 (12-20); Blood Urea Nitrogen 20 mg/dL (9-16); Calcium 7.7 mg/dL (8.4-10.2); Carbon Dioxide 18 mmol/L (22-29); Chloride 105 mmol/L (96-108); Creatinine Clr Calc Pharmacy 74.8; Estimated Glomerular Filt Rate > 60; Glucose Random 108 mg/dL (60-115); Potassium 4.2 mmol/L (3.3-5.1); Sodium 129 mmol/L (135-145)
--- NOTE | 2021-12-07 05:43 | MHC.PIE ---
Addendum entered by Neil Pat RN 12/07/21 06:10: Patient kept NPO after midnight for plan for paracentesis. Heparin held for procedure. aware. Original Note: Patient receiving NS at 200ml/hr. Serum sodium from first set of labs 124. Clarified IV fluid rate w/ Dr Zapata - ordered to hold fluids and redraw BMP - BMP results reported to Dr Zapata, order to continue to hold IV fluids. Patient incont of stool x2. Patient vague, forgetful, but oriented to name and place. Vitals stable. Patient redirectable. High fall risk precautions in place. Telesitter also placed at bedside for additional safety precautions.
--- NOTE | 2021-12-07 06:39 | PM.EVENT ---
Event Note Date of Service: 12/07/21 Event Note: pt w hyponatremia of 124 . received a mssg from nurse that pt receiving 200cc/of NS. stopped fluid, rechecked BMP showing impermanent of his Na to 129. will consult nephrology . hold fluids at this time until evaluate by nephro
--- NOTE | 2021-12-07 07:22 | P.CNGI_ITS ---
History of Present Illness Data of Consult Service Date: 12/07/21 Requesting physician: Jose Love Primary Care Provider: Arben German MD [facility] Reason for consult: hepatic encephalopathy 56 YM with ETOH related cirrhosis seen at [facility] ED on 12/06/21 with worsening mental status: Patient comes to the emergency room via EMS.? Patient reports that his fiancee called the ambulance.? EMS reports that the patient has worsening altered mental status.? They got report from the patient's family that he usually takes 1 mg of Ativan 4 times a day, but he might have taking 4 mg together all 09:00, almost 7 hours ago.? Patient is very somnolent, can answer yes no questions.? From previous notes, patient had has been very weak.? However he is able to hold a normal conversation.? Patient was discharged on November 25 from this hospital.? From patient's discharge notes seems that patient was supposed to go to a short-term rehab for 30 days.? However, patient is coming from home . Labs showed hyponatremia with Na of 124 (corrected with IV saline), elevated LFTs (improved from previous admission) Pt was admitted and started on PO lactulose and Ativan was decreased to twice a day. He had a LVP today and 5.5 L of clear genaro color fluid was drained from the left upper quadrant. Part of this fluid was sent to lab as per physician's request.? ?Patient is more alert today (per his GF) and was interviewed with his GF/career portals teacher by his bed side. He is awake and alert but a little slow in responses -denies any chest pain or shortness of breath or abdominal pain or nausea or vomiting. Denies any fever or chills.? Complains of generalized weak ?denies any blood in the stool ?Pt states he was using alcohol heavily since the age of 25-his favorite Flavors were alcohol vodka and beers. Per pt's GF he quitted drinking 4 month ago and was in patient Rehab x 1 week after his last hospitaliztion. Smokes 1 pack? in for 5 days He fell down? yesterday morning when he tried to walk without usinh his walker. Pt was admitted and started on IV antibiotics, lasix, spironolactone and PO lactulose. He had a large volume paracentesis today with?successful removal of 11.3 L of clear yellowish fluid from the left lower quadrant.? Review of Systems Neurologic: Reports confusion Psychiatric: Psychiatric: Reports confusion [facility] Past Medical History Medical History Abdominal ascites Acute metabolic encephalopathy NATHANIEL (acute kidney injury) Alcoholic cirrhosis of liver with ascites Anxiety Depression Falls Hepatic cirrhosis Hyperlipidemia Hypertension Prostate cancer Social History Social History Household Members: Other Household Members Other:: fiancee Housing: [facility] Do you presently have visiting nurse or other home services: Yes Alcohol intake: unknown Patient Tobacco Use Status: Former Tobacco user Tobacco use type: Cigarette Advance Directives Date on File: 11/11/21 service: No Current occupational status: disabled Meds Allergies Allergy/AdvReac Type Severity Reaction Status Date / Time Fish Containing Products Allergy Severe THROAT Verified 12/06/21 15:50 SWELLING peanut [Peanut] Allergy Severe THROAT Verified 12/06/21 15:50 SWELLING Active Medications: Current Medications Gabapentin (Gabapentin 400 Mg Capsule) 400 mg PO TID [facility] Last Admin: 12/06/21 20:43 Dose: 400 mg Documented by: Heparin Sodium (Porcine) (Heparin Sodium,Porcine 5,000 Unit/Ml Vial) 5,000 unit SUBCUT Q8H [facility] Last Admin: 12/07/21 04:08 Dose: Not Given Documented by: Lactulose (Lactulose 20 Gm/30 Ml Solution) 20 gm PO TID [facility] Last Admin: 12/06/21 20:41 Dose: 20 gm Documented by: Lorazepam (Lorazepam 1 Mg Tablet) 1 mg PO BID [facility] Omeprazole (Omeprazole 20 Mg Capsule.Dr) 20 mg PO DAILY@0630 [facility] Last Admin: 12/07/21 04:13 Dose: Not Given Documented by: Ondansetron HCl (Ondansetron Hcl 4 Mg/2 Ml Vial) 4 mg IVPUSH Q8H PRN PRN Reason: Nausea and Vomiting Pharmacy Consult (Consult Rx Perform Med Rec) 1 each MISCELLANE ONCE PRN PRN Reason: Consult order Propranolol HCl (Propranolol Hcl 10 Mg Tablet) 10 mg PO TID [facility]; Protocol Last Admin: 12/06/21 20:43 Dose: 10 mg Documented by: Risperidone (Risperidone 0.5 Mg Tablet) 0.5 mg PO BEDTIME [facility] Last Admin: 12/06/21 20:44 Dose: 0.5 mg Documented by: Sodium Chloride (0.9 % Sodium Chloride Flush 3 Ml Syringe) 3 ml IVFLUSH QSHIFT [facility] Last Admin: 12/07/21 01:54 Dose: 3 ml Documented by: Topiramate (Topiramate 100 Mg Tablet) 200 mg PO BID [facility] Last Admin: 12/06/21 20:42 Dose: 200 mg Documented by: Home Medications Medication Instructions Recorded Confirmed Last Taken Type lactulose 10 gram/15 mL oral 30 ml PO TID 11/11/21 12/06/21 11/20/21 History solution (Constulose) pantoprazole 40 mg tablet,delayed 1 tab PO DAILY 11/11/21 12/06/21 11/20/21 History release pravastatin 20 mg tablet 1 tab PO BEDTIME 11/11/21 12/06/21 11/19/21 History propranolol 10 mg tablet 1 tab PO TID 11/11/21 12/06/21 11/20/21 History risperidone 0.5 mg tablet 1 tab PO BEDTIME 11/11/21 12/06/21 11/19/21 History spironolactone 25 mg tablet 2 tab PO DAILY 11/11/21 12/06/21 11/20/21 History topiramate 200 mg tablet (Topamax) 1 tab PO BID 11/11/21 12/06/21 11/20/21 History zolpidem 10 mg tablet (Ambien) 1 tab PO BEDTIME 11/11/21 12/06/21 11/19/21 History gabapentin 400 mg capsule 1 cap PO TID 11/20/21 12/06/21 11/20/21 History (Neurontin) Physical Exam Vital Signs: Vital Signs: Last Vital Signs Temp 98.4 F 12/07/21 04:00 Pulse 80 12/07/21 04:00 Resp 16 12/07/21 04:00 BP 105/62 12/07/21 04:00 Pulse Ox 98 12/07/21 04:00 BMI result Body Mass Index 33.3 Const: General: no acute distress, confusion and ill appearing Nutritional Appearance: obese Orientation/consciousness: confusion Limitations: ambulation with walker HENMT: Head: Yes normal to inspection Ears: hearing grossly normal bilaterally Mouth: Normal oral and palatal mucosa present Eyes: Sclerae: sclerae normal Pupils: Equal, round and reactive pupils present Neck: Neck: Yes normal visual inspection Chest: Chest palpation & inspection: normal inspection of the chest Resp: Effort & Inspection: normal respiratory effort Auscultation: clear to auscultation bilaterally Cardio: Palpation: normal PMI Rate: regular rate Rhythm: regular rhythm Heart sounds: S1 normal heart sound present, S2 normal heart sound present and no murmurs GI: Inspection: Yes distended Palpation (GI): Soft to palpation, nontender, No hepatosplenomegaly present and Hepatomegaly present (Liver palpable 3 cms below RCM, non-tender and firm to palpation)) Auscultation: normal bowel sounds Rectal Exam - Male: Yes deferred Skin: General skin exam: no rashes or lesions noted and spider nevi (on anterior chest and upper arms) Neuro: General: gait normal, moves all extremities and confusion Cranial ne rves: Yes Equal, round and reactive pupils present Extrem: General: Yes pedal edema (trace edema) and Yes other (bilateral Dupytren's contractures) Psych: Appearance: grossly normal Mental Status: mental status grossly normal Results Labs CBC & Chem 7: 12/08/21 09:08 12/08/21 09:08 Labs: Short CBC 12/06/21 Range/Units 16:16 WBC 15.7 H (4.8-10.8) X10*3/uL Hgb 8.9 L (14.0-18.0) g/dl Hct 26.9 L (42.0-52.0) % Plt Count 212 (160-400) X10*3/uL BMP 12/06/21 12/07/21 16:16 02:41 Sodium 124 L 129 L Potassium 4.8 D 4.2 Chloride 100 105 Carbon Dioxide 17 L 18 L BUN 22 H 20 H Creatinine 1.16 1.14 Calcium 8.2 L D 7.7 L D Liver Function 12/06/21 Range/Units 16:16 Total Bilirubin 3.0 H (0.0-1.0) mg/dL Direct Bilirubin 1.7 H (0.0-0.5) mg/dL AST 47 H (5-37) U/L ALT 17 (0-40) U/L Alkaline Phosphatase 320 H D (39-117) U/L Albumin 2.8 L D (3.5-5.0) g/dL Urine 12/06/21 Range/Units 16:21 Urine Color YELLOW Urine Appearance CLEAR Urine pH 6.0 (5.0-8.0) Ur Specific [place] 1.020 (1.005-1.025) Urine Protein NEG (NEG-TRACE) MG/DL Urine Glucose (UA) NEG (NEG) MG/DL Assessment and Plan (1) Acute hyponatremia: Status: Acute (2) Encephalopathy: Status: Acute (3) Hepatic cirrhosis: (4) Acute metabolic encephalopathy: Plan 56 YM with hx of ETOH related cirrhosis admitted on 12/06/21 with change in MS and confusion after taking higher than recommended dose of Ativan (4 mg at one time instead of spacing it out over the day). Labs showed normocytic normochromic anemia, elevated LFTs (improved since last hospitalization), normal ammonia level Past Hepatitis serologies showed negative Hep A and C and immunity to Hepatitis B. AST > ALT suggestive of alcohol related liver disease.? MELD score was 15 during past admission. Change in mental status likely due to hepatic encephalopathy induced by sedatives and electrolyte imbalace versus neurological complications related to chronic ETOH abuse with associated nutritional deficiencies. Head CT was negative for any acute changes RECOMMENDATIONS: 1.? Continue Omeprazole and Lactulose. 2. Pt needs FU in the GI clinic to establish care for management of ETOH related liver disease/cirrhosis. Procedures Date of Service Date of Service: 12/07/21
[2021-12-07 08:01] LABS: MANUAL DIFF FLAG NO
[2021-12-07 08:04] LABS: Basophils Percent Auto 0.3 % (0-2); Eosinophils Absolute Auto 0.3 X10*3/uL (0.0-0.4); Eosinophils Percent Auto 2.3 % (0-4); Hematocrit 24.4 % (42.0-52.0); Hemoglobin 8.2 g/dl (14.0-18.0); Imm Gran Abs Auto 0.05 X10*3/uL (0.00-0.03); Imm Gran Pct Auto 0.4 % (0.0-0.4); Mean Corpuscular HGB Conc 33.6 g/dl (31.0-36.0); Mean Corpuscular Hemoglobin 30.9 pg (27.0-33.0); Mean Corpuscular Volume 92.1 fL (80.0-98.0); Mean Platelet Volume 10.3 fL (9.4-12.4); Monocytes Absolute Auto 1.1 X10*3/uL (0.1-1.2); Monocytes Percent Auto 9.3 % (2-11); Neutrophils Absolute Auto 8.5 x10*3/uL (2.0-8.3); Neutrophils Percent Auto 70.7 % (45-73); Platelet Count 193 X10*3/uL (160-400); Red Blood Count 2.65 X10*6/uL (4.60-5.80); Red Cell Distribution Width 16.8 % (11.0-16.0)
[2021-12-07 08:11] LABS: Ammonia 45 umol/L (13-55)
[2021-12-07 08:21] LABS: Alanine Aminotransferase 12 U/L (0-40); Albumin Level 2.5 g/dL (3.5-5.0); Alkaline Phosphatase 293 U/L (39-117); Anion Gap 9 (12-20); Aspartate Amino Transferase 33 U/L (5-37); Bilirubin Total 2.9 mg/dL (0.0-1.0); Blood Urea Nitrogen 19 mg/dL (9-16); Calcium 7.8 mg/dL (8.4-10.2); Carbon Dioxide 19 mmol/L (22-29); Chloride 105 mmol/L (96-108); Creatinine Clr Calc Pharmacy 82.1; Estimated Glomerular Filt Rate > 60; Glucose Fasting 109 mg/dL (60-99); Potassium 4.3 mmol/L (3.3-5.1); Sodium 129 mmol/L (135-145); Total Protein 6.9 g/dL (6.5-8.0)
[2021-12-07] MEDS: Lactulose 20 GM/30 ML SOLUTION PO ×3 (09:38→20:32)
[2021-12-07] MEDS: Topiramate 100 MG TABLET 200 MG PO ×2 (09:38→20:32)
[2021-12-07] MEDS: Albumin Human 25 % 100 ML IV ×3 (09:38→20:33)
[2021-12-07] MEDS: LORazepam 1 MG TABLET PO (09:39)
[2021-12-07] MEDS: Gabapentin 400 MG CAPSULE PO ×2 (09:39→15:46)
--- NOTE | 2021-12-07 12:00 | PC.NURSE ---
Pt somnolent but awakens to name. Oriented x 3, LCA, abd firm, non tender, +BS, skin jaundice in color. Pt denies any pain at this time, medicated as per MAR orders. Off unit for paracentisis at this time.
[2021-12-07] MEDS: Lidocaine HCl 1 % MPF 5 ML VIAL SUBCUT (12:56)
[2021-12-07 13:12] LABS: MN% 80.6 %; PMN% 19.4 %; WBC Peritoneal Fluid 0.358 X10*3/uL
[2021-12-07 13:18] LABS: RBC Peritoneal Fluid < 0.002 X10*6/uL
[2021-12-07 13:57] LABS: Lymphocyte Peritoneal Fl 38 %; Monocytes Peritoneal Fl 8 %; Neutrophils Peritoneal Fluid 14 %
[2021-12-07 13:58] LABS: BF Shift QC OK YES; Other Peritioneal Fl 40 %
--- NOTE | 2021-12-07 14:12 | PC.NURSE ---
Pt's fiance asking for pain medication for the patient. Pt sleeping, when awoken and asked by this RN if he is in pain, his fiance answers for him. I then asked for his pain on a scale of 0-10 and patient said 0, no pain medication given at this time.
[2021-12-07 14:23] LABS: Anion Gap 9 (12-20); Blood Urea Nitrogen 18 mg/dL (9-16); Calcium 8.1 mg/dL (8.4-10.2); Carbon Dioxide 20 mmol/L (22-29); Chloride 105 mmol/L (96-108); Creatinine Clr Calc Pharmacy 75.5; Estimated Glomerular Filt Rate > 60; Glucose Random 128 mg/dL (60-115); Sodium 130 mmol/L (135-145)
--- NOTE | 2021-12-07 15:58 | HO.PM.IMPN ---
Subjective Subjective Date of Service: 12/08/21 Interval History: Toxic metabolic encephalopathy due to sedative ( ativan excessive use ) and advance liver dis. Review of Systems denies any chest pain or shortness of breath or abdominal pain. still seems confused Physical Exam Vital Signs: Vital Signs: Last Vital Signs Temp 98.3 F 12/07/21 12:57 Pulse 78 12/07/21 15:49 Resp 14 12/07/21 15:49 BP 102/52 L 12/07/21 15:49 Pulse Ox 98 12/07/21 15:49 BMI result Body Mass Index 33.3 Appearance: Alert.? Oriented X1.? not in distress.?seems confused Eyes: Pupils equal, round and reactive to light.? Sclera nonicteric.? ENT: Pharynx normal.? Moist mucous membranes. cvs: rrr, [id number] , no murmur res: clear to auscultation ,no rhonchii or wheezing abd: no rebound or guarding ,nt, bs present ,has ascitis ext pulses present , no cyanosis . neuro: axo1 , nonfocal. Objective Data Active Medications Gabapentin (Gabapentin 400 Mg Capsule) 400 mg PO TID [facility] Last Admin: 12/07/21 15:46 Dose: 400 mg Documented by: KHALIF-UBALDO Heparin Sodium (Porcine) (Heparin Sodium,Porcine 5,000 Unit/Ml Vial) 5,000 unit SUBCUT Q8H [facility] Last Admin: 12/07/21 12:59 Dose: Not Given Documented by: KHALIF-UBALDO Non-Admin Reason: Off Unit: Surgery Albumin Human (Kedbumin 25 %) 100 mls @ 100 mls/hr IV Q6H [facility] Stop: 12/08/21 03:29 Last Admin: 12/07/21 15:46 Dose: 100 mls/hr Documented by: KHALIF-RAMTARIK Lactulose (Lactulose 20 Gm/30 Ml Solution) 20 gm PO TID [facility] Last Admin: 12/07/21 15:46 Dose: 20 gm Documented by: KHALIF-UBALDO Lorazepam (Lorazepam 1 Mg Tablet) 1 mg PO BID [facility] Last Admin: 12/07/21 09:39 Dose: 1 mg Documented by: KHALIF-UBALDO Omeprazole (Omeprazole 20 Mg Capsule.) 20 mg PO DAILY@0630 [facility] Last Admin: 12/07/21 04:13 Dose: Not Given Documented by: JUDITH Non-Admin Reason: NPO Ondansetron HCl (Ondansetron Hcl 4 Mg/2 Ml Vial) 4 mg IVPUSH Q8H PRN PRN Reason: Nausea and Vomiting Pharmacy Consult (Consult Rx Perform Med Rec) 1 each MISCELLANE ONCE PRN PRN Reason: Consult order Propranolol HCl (Propranolol Hcl 10 Mg Tablet) 10 mg PO TID [facility]; Protocol Last Admin: 12/07/21 15:49 Dose: Not Given Documented by: DIETER Non-Admin Reason: Decreased Blood Pressure Risperidone (Risperidone 0.5 Mg Tablet) 0.5 mg PO BEDTIME [facility] Last Admin: 12/06/21 20:44 Dose: 0.5 mg Documented by: ART Sodium Chloride (0.9 % Sodium Chloride Flush 3 Ml Syringe) 3 ml IVFLUSH QSHIFT [facility] Last Admin: 12/07/21 09:37 Dose: Not Given Documented by: DIETER Non-Admin Reason: IV Running Topiramate (Topiramate 100 Mg Tablet) 200 mg PO BID [facility] Last Admin: 12/07/21 09:38 Dose: 200 mg Documented by: DIETER Labs CBC & Chem 7: 12/08/21 09:08 12/08/21 09:08 Labs: Laboratory Results - last 24 hr 12/06/21 12/06/21 12/06/21 16:15 16:15 16:15 MCV MCH MCHC RDW Plt Count MPV Immature Gran % (Auto) Neut % (Auto) Lymph % (Auto) [place] % (Auto) Eos % (Auto) Baso % (Auto) Lymph # (Auto) [place] # (Auto) Eos # (Auto) Baso # (Auto) Abs Immat Gran (auto) Absolute Neuts (auto) Absolute Nucleated RBC Nucleated RBC % (auto) PT INR Anion Gap Estim Creat Clear Calc Estimated GFR Random Glucose Fasting Glucose Lactic Acid Calcium Magnesium Total Bilirubin Direct Bilirubin AST ALT Alkaline Phosphatase Ammonia Total Protein Albumin Lipase TSH 1.13 Urine Color Urine Appearance Urine pH Ur Specific [place] Urine Protein Urine Glucose (UA) Urine Ketones Urine Blood Urine Nitrite Ur Leukocyte Esterase Peritoneal WBC Peritoneal RBC Periton Neutrophils Periton Lymphocytes Peritoneal Monocytes Peritoneal Other Cells Urine Opiates Screen Urine Fentanyl Screen Ur Barbiturates Screen Ur Phencyclidine Scrn Ur Amphetamines Screen U Benzodiazepines Scrn Urine Cocaine Screen U Marijuana (THC) Screen Ethyl Alcohol < 10 COVID-19 ([facility]) Negative COVID-19 Clin Com See Note 12/06/21 12/06/21 12/06/21 16:16 16:16 16:16 MCV 93.7 MCH 31.0 MCHC 33.1 RDW 16.6 H Plt Count 212 MPV 10.3 Immature Gran % (Auto) 0.4 Neut % (Auto) 67.5 Lymph % (Auto) 20.9 [place] % (Auto) 8.6 Eos % (Auto) 2.2 Baso % (Auto) 0.4 Lymph # (Auto) 3.3 [place] # (Auto) 1.4 H Eos # (Auto) 0.3 Baso # (Auto) 0.1 Abs Immat Gran (auto) 0.06 H Absolute Neuts (auto) 10.6 H Absolute Nucleated RBC 0.000 Nucleated RBC % (auto) 0.0 PT 16.3 H INR 1.4 H Anion Gap 12 Estim Creat Clear Calc 73.6 Estimated GFR > 60 Random Glucose 102 Fasting Glucose Lactic Acid Calcium 8.2 L D Magnesium 2.3 Total Bilirubin 3.0 H Direct Bilirubin 1.7 H AST 47 H ALT 17 Alkaline Phosphatase 320 H D Ammonia Total Protein 8.1 H Albumin 2.8 L D Lipase 83 H TSH Urine Color Urine Appearance Urine pH Ur Specific [place] Urine Protein Urine Glucose (UA) Urine Ketones Urine Blood Urine Nitrite Ur Leukocyte Esterase Peritoneal WBC Peritoneal RBC Periton Neutrophils Periton Lymphocytes Peritoneal Monocytes Peritoneal Other Cells Urine Opiates Screen Urine Fentanyl Screen Ur Barbiturates Screen Ur Phencyclidine Scrn Ur Amphetamines Screen U Benzodiazepines Scrn Urine Cocaine Screen U Marijuana (THC) Screen Ethyl Alcohol COVID-19 ([facility]) COVID-19 Clin Com 12/06/21 12/06/21 12/06/21 16:16 16:16 16:21 MCV MCH MCHC RDW Plt Count MPV Immature Gran % (Auto) Neut % (Auto) Lymph % (Auto) [place] % (Auto) Eos % (Auto) Baso % (Auto) Lymph # (Auto) [place] # (Auto) Eos # (Auto) Baso # (Auto) Abs Immat Gran (auto) Absolute Neuts (auto) Absolute Nucleated RBC Nucleated RBC % (auto) PT INR Anion Gap Estim Creat Clear Calc Estimated GFR Random Glucose Fasting Glucose Lactic Acid 1.8 Calcium Magnesium Total Bilirubin Direct Bilirubin AST ALT Alkaline Phosphatase Ammonia 45 Total Protein Albumin Lipase TSH Urine Color YELLOW Urine Appearance CLEAR Urine pH 6.0 Ur Specific [place] 1.020 Urine Protein NEG Urine Glucose (UA) NEG Urine Ketones NEG Urine Blood NEG Urine Nitrite NEG Ur Leukocyte Esterase NEG Peritoneal WBC Peritoneal RBC Periton Neutrophils Periton Lymphocytes Peritoneal Monocytes Peritoneal Other Cells Urine Opiates Screen Urine Fentanyl Screen Ur Barbiturates Screen Ur Phencyclidine Scrn Ur Amphetamines Screen U Benzodiazepines Scrn Urine Cocaine Screen U Marijuana (THC) Screen Ethyl Alcohol COVID-19 ([place]) [employer] 12/06/21 12/07/21 12/07/21 16:21 02:41 07:52 MCV 92.1 MCH 30.9 MCHC 33.6 RDW 16.8 H Plt Count 193 MPV 10.3 Immature Gran % (Auto) 0.4 Neut % (Auto) 70.7 Lymph % (Auto) 17.0 L [place] % (Auto) 9.3 Eos % (Auto) 2.3 Baso % (Auto) 0.3 Lymph # (Auto) 2.0 [place] # (Auto) 1.1 Eos # (Auto) 0.3 Baso # (Auto) 0.0 Abs Immat Gran (auto) 0.05 H Absolute Neuts (auto) 8.5 H Absolute Nucleated RBC 0.000 Nucleated RBC % (auto) 0.0 PT INR Anion Gap 10 L Estim Creat Clear Calc 74.8 Estimated GFR > 60 Random Glucose 108 Fasting Glucose Lactic Acid Calcium 7.7 L D Magnesium Total Bilirubin Direct Bilirubin AST ALT Alkaline Phosphatase Ammonia Total Protein Albumin Lipase TSH Urine Color Urine Appearance Urine pH Ur Specific [place] Urine Protein Urine Glucose (UA) Urine Ketones Urine Blood Urine Nitrite Ur Leukocyte Esterase Peritoneal WBC Peritoneal RBC Periton Neutrophils Periton Lymphocytes Peritoneal Monocytes Peritoneal Other Cells Urine Opiates Screen Not Detected Urine Fentanyl Screen Not Detected Ur Barbiturates Screen Not Detected Ur Phencyclidine Scrn Not Detected Ur Amphetamines Screen Not Detected U Benzodiazepines Scrn Not Detected Urine Cocaine Screen Not Detected U Marijuana (THC) Screen Not Detected Ethyl Alcohol COVID-19 ([place]) [employer] 12/07/21 12/07/21 12/07/21 07:52 07:52 12:00 MCV MCH MCHC RDW Plt Count MPV Immature Gran % (Auto) Neut % (Auto) Lymph % (Auto) [place] % (Auto) Eos % (Auto) Baso % (Auto) Lymph # (Auto) [place] # (Auto) Eos # (Auto) Baso # (Auto) Abs Immat Gran (auto) Absolute Neuts (auto) Absolute Nucleated RBC Nucleated RBC % (auto) PT INR Anion Gap 9 L Estim Creat Clear Calc 82.1 Estimated GFR > 60 Random Glucose Fasting Glucose 109 H Lactic Acid Calcium 7.8 L Magnesium Total Bilirubin 2.9 H Direct Bilirubin AST 33 ALT 12 Alkaline Phosphatase 293 H Ammonia 45 Total Protein 6.9 Albumin 2.5 L Lipase TSH Urine Color Urine Appearance Urine pH Ur Specific [place] Urine Protein Urine Glucose (UA) Urine Ketones Urine Blood Urine Nitrite Ur Leukocyte Esterase Peritoneal WBC 0.358 Peritoneal RBC < 0.002 Periton Neutrophils 14 Periton Lymphocytes 38 Peritoneal Monocytes 8 Peritoneal Other Cells 40 Urine Opiates Screen Urine Fentanyl Screen Ur Barbiturates Screen Ur Phencyclidine Scrn Ur Amphetamines Screen U Benzodiazepines Scrn Urine Cocaine Screen U Marijuana (THC) Screen Ethyl Alcohol COVID-19 ([place]) [employer] 12/07/21 13:54 MCV MCH MCHC RDW Plt Count MPV Immature Gran % (Auto) Neut % (Auto) Lymph % (Auto) [place] % (Auto) Eos % (Auto) Baso % (Auto) Lymph # (Auto) [place] # (Auto) Eos # (Auto) Baso # (Auto) Abs Immat Gran (auto) Absolute Neuts (auto) Absolute Nucleated RBC Nucleated RBC % (auto) PT INR Anion Gap 9 L Estim Creat Clear Calc 75.5 Estimated GFR > 60 Random Glucose 128 H Fasting Glucose Lactic Acid Calcium 8.1 L Magnesium Total Bilirubin Direct Bilirubin AST ALT Alkaline Phosphatase Ammonia Total Protein Albumin Lipase TSH Urine Color Urine Appearance Urine pH Ur Specific [place] Urine Protein Urine Glucose (UA) Urine Ketones Urine Blood Urine Nitrite Ur Leukocyte Esterase Peritoneal WBC Peritoneal RBC Periton Neutrophils Periton Lymphocytes Peritoneal Monocytes Peritoneal Other Cells Urine Opiates Screen Urine Fentanyl Screen Ur Barbiturates Screen Ur Phencyclidine Scrn Ur Amphetamines Screen U Benzodiazepines Scrn Urine Cocaine Screen U Marijuana (THC) Screen Ethyl Alcohol COVID-19 ([place]) COVID-19 [employer] Com Microbiology Microbiology Results: Microbiology 12/07/21 12:00 Gram Stain - Final Abdominal Fluid Assessment and Plan (1) Hyponatremia: Status: Acute (2) Encephalopathy: Status: Acute (3) Alcoholic cirrhosis of liver with ascites: Status: Acute Plan 1. Toxic metabolic encephalopathy probably related to excessive Ativan use in setting advanced liver disease . Adjusted Ativan Monitor Continue lactulose 2. Advanced liver disease: Mild coagulopathy Elevated LFTs and baseline Continue lactulose Ascites tap-labs sent. continue above -added albumin. 3. Hyponatremia: Seems multifactorial: Low p.o. intake, advanced liver disease. Improved with fluids Discussed with Nephrology-sodium is 130 Repeat in the evening and then in the a.m., no new fluids 4.NATHANIEL--creatinine stable around 1.1-1.2 range. 5.hypoalbuminemia multifactorial-sec to possible poor oral inatke , advanced liver dis. pt eval. Quality Stroke Does the patient have a stroke diagnosis?: No VTE Prior VTE?: No VTE Risk Level:: Medical - moderate - high VTE Device Contraindication: Treatment Not Indicated VTE Drug Contraindication: N/A - Med Ordered
--- NOTE | 2021-12-07 16:21 | P.HPHOSP_ITS ---
History of Present Illness Date of Service: 12/06/21 Chief Complaint: increased somulence 56-year-old gentleman with known history of alcoholic cirrhosis and ascites recently discharged from [facility] presents with increased somnolence and fatigue. Upon review of past admission, patient was taking At taty 4 mg daily in the morning. Was discharged to rehab with a 30 day taper planned. It is unclear why he left the rehab however he went home and restarted his 4 mg daily. Girlfriend states that over the past 2 days he has been increasingly somnolent however has continued to take his Ativan. She denies alcohol as does he along with illicit drugs. He will be admitted for further workup Review of Systems Review of Systems: Denies chest pain Denies shortness of breath Denies nausea vomiting diarrhea PMFSH Medical History Abdominal ascites Acute metabolic encephalopathy NATHANIEL (acute kidney injury) Alcoholic cirrhosis of liver with ascites Anxiety Depression Falls Hepatic cirrhosis Hyperlipidemia Hypertension Prostate cancer Social History Household Members: Other Household Members Other:: fiancee Housing: [facility] Do you presently have visiting nurse or other home services: Yes Alcohol intake: unknown Patient Tobacco Use Status: Former Tobacco user Tobacco use type: Cigarette Advance Directives: Yes Advance Directives on File: Yes Advance Directives Date on File: 11/11/21 service: No Current occupational status: disabled Meds Allergies Allergy/AdvReac Type Severity Reaction Status Date / Time Fish Containing Products Allergy Severe THROAT Verified 12/06/21 15:50 SWELLING peanut [Peanut] Allergy Severe THROAT Verified 12/06/21 15:50 SWELLING Active Medications: Current Medications Gabapentin (Gabapentin 400 Mg Capsule) 400 mg PO TID [facility] Last Admin: 12/07/21 15:46 Dose: 400 mg Documented by: Heparin Sodium (Porcine) (Heparin Sodium,Porcine 5,000 Unit/Ml Vial) 5,000 unit SUBCUT Q8H KULWANT Last Admin: 12/07/21 12:59 Dose: Not Given Documented by: Albumin Human (Kedbumin 25 %) 100 mls @ 100 mls/hr IV Q6H KULWANT Stop: 12/08/21 03:29 Last Admin: 12/07/21 15:46 Dose: 100 mls/hr Documented by: Lactulose (Lactulose 20 Gm/30 Ml Solution) 20 gm PO TID [facility] Last Admin: 12/07/21 15:46 Dose: 20 gm Documented by: Lorazepam (Lorazepam 1 Mg Tablet) 1 mg PO BID [facility] Last Admin: 12/07/21 09:39 Dose: 1 mg Documented by: Omeprazole (Omeprazole 20 Mg Capsule.Dr) 20 mg PO DAILY@0630 [facility] Last Admin: 12/07/21 04:13 Dose: Not Given Documented by: Ondansetron HCl (Ondansetron Hcl 4 Mg/2 Ml Vial) 4 mg IVPUSH Q8H PRN PRN Reason: Nausea and Vomiting Pharmacy Consult (Consult Rx Perform Med Rec) 1 each MISCELLANE ONCE PRN PRN Reason: Consult order Propranolol HCl (Propranolol Hcl 10 Mg Tablet) 10 mg PO TID [facility]; Protocol Last Admin: 12/07/21 15:49 Dose: Not Given Documented by: Risperidone (Risperidone 0.5 Mg Tablet) 0.5 mg PO BEDTIME [facility] Last Admin: 12/06/21 20:44 Dose: 0.5 mg Documented by: Sodium Chloride (0.9 % Sodium Chloride Flush 3 Ml Syringe) 3 ml IVFLUSH QSHIFT [facility] Last Admin: 12/07/21 09:37 Dose: Not Given Documented by: Topiramate (Topiramate 100 Mg Tablet) 200 mg PO BID [facility] Last Admin: 12/07/21 09:38 Dose: 200 mg Documented by: Home Medications Medication Instructions Recorded Confirmed Last Taken Type lactulose 10 gram/15 mL oral 30 ml PO TID 11/11/21 12/06/21 11/20/21 History solution (Constulose) pantoprazole 40 mg tablet,delayed 1 tab PO DAILY 11/11/21 12/06/21 11/20/21 History release pravastatin 20 mg tablet 1 tab PO BEDTIME 11/11/21 12/06/21 11/19/21 History propranolol 10 mg tablet 1 tab PO TID 11/11/21 12/06/21 11/20/21 History risperidone 0.5 mg tablet 1 tab PO BEDTIME 11/11/21 12/06/21 11/19/21 History spironolactone 25 mg tablet 2 tab PO DAILY 11/11/21 12/06/21 11/20/21 History topiramate 200 mg tablet (Topamax) 1 tab PO BID 11/11/21 12/06/21 11/20/21 History zolpidem 10 mg tablet (Ambien) 1 tab PO BEDTIME 11/11/21 12/06/21 11/19/21 History gabapentin 400 mg capsule 1 cap PO TID 11/20/21 12/06/21 11/20/21 History (Neurontin) lorazepam 1 mg tablet (Ativan) See Rx Instructions .ROUTE .COMPLEX 12/06/21 12/06/21 Unknown History Physical Exam Vital Signs and Narrative: Vital Signs: Last Vital Signs Temp 98.3 F 12/07/21 12:57 Pulse 78 12/07/21 15:49 Resp 14 12/07/21 15:49 BP 102/52 L 12/07/21 15:49 Pulse Ox 98 12/07/21 15:49 BMI result Body Mass Index 33.3 Const: Other: Somnolent but arousable Resp: Other: Clear to auscultation bilaterally no rales rhonchi or wheezes Cardio: Other: No S4; positive S1-S2; no S3 murmurs rubs or gallops GI: Other: Protuberant abdomen with palpable fluid wave. Bowel sounds are quiet Extrem: Other: No edema Results Labs CBC and Chem 7: 12/07/21 07:52 12/07/21 13:54 Labs: Laboratory Results - last 24 hr 12/06/21 12/06/21 12/06/21 16:15 16:15 16:15 MCV MCH MCHC RDW Plt Count MPV Immature Gran % (Auto) Neut % (Auto) Lymph % (Auto) [place] % (Auto) Eos % (Auto) Baso % (Auto) Lymph # (Auto) [place] # (Auto) Eos # (Auto) Baso # (Auto) Abs Immat Gran (auto) Absolute Neuts (auto) Absolute Nucleated RBC Nucleated RBC % (auto) PT INR Anion Gap Estim Creat Clear Calc Estimated GFR Random Glucose Fasting Glucose Lactic Acid Calcium Magnesium Total Bilirubin Direct Bilirubin AST ALT Alkaline Phosphatase Ammonia Total Protein Albumin Lipase TSH 1.13 Urine Color Urine Appearance Urine pH Ur Specific [place] Urine Protein Urine Glucose (UA) Urine Ketones Urine Blood Urine Nitrite Ur Leukocyte Esterase Peritoneal WBC Peritoneal RBC Periton Neutrophils Periton Lymphocytes Peritoneal Monocytes Peritoneal Other Cells Urine Opiates Screen Urine Fentanyl Screen Ur Barbiturates Screen Ur Phencyclidine Scrn Ur Amphetamines Screen U Benzodiazepines Scrn Urine Cocaine Screen U Marijuana (THC) Screen Ethyl Alcohol < 10 COVID-19 ([place]) Negative COVID-19 Clin Com See Note 12/06/21 12/06/21 12/06/21 16:16 16:16 16:16 MCV 93.7 MCH 31.0 MCHC 33.1 RDW 16.6 H Plt Count 212 MPV 10.3 Immature Gran % (Auto) 0.4 Neut % (Auto) 67.5 Lymph % (Auto) 20.9 [place] % (Auto) 8.6 Eos % (Auto) 2.2 Baso % (Auto) 0.4 Lymph # (Auto) 3.3 [place] # (Auto) 1.4 H Eos # (Auto) 0.3 Baso # (Auto) 0.1 Abs Immat Gran (auto) 0.06 H Absolute Neuts (auto) 10.6 H Absolute Nucleated RBC 0.000 Nucleated RBC % (auto) 0.0 PT 16.3 H INR 1.4 H Anion Gap 12 Estim Creat Clear Calc 73.6 Estimated GFR > 60 Random Glucose 102 Fasting Glucose Lactic Acid Calcium 8.2 L D Magnesium 2.3 Total Bilirubin 3.0 H Direct Bilirubin 1.7 H AST 47 H ALT 17 Alkaline Phosphatase 320 H D Ammonia Total Protein 8.1 H Albumin 2.8 L D Lipase 83 H TSH Urine Color Urine Appearance Urine pH Ur Specific [place] Urine Protein Urine Glucose (UA) Urine Ketones Urine Blood Urine Nitrite Ur Leukocyte Esterase Peritoneal WBC Peritoneal RBC Periton Neutrophils Periton Lymphocytes Peritoneal Monocytes Peritoneal Other Cells Urine Opiates Screen Urine Fentanyl Screen Ur Barbiturates Screen Ur Phencyclidine Scrn Ur Amphetamines Screen U Benzodiazepines Scrn Urine Cocaine Screen U Marijuana (THC) Screen Ethyl Alcohol COVID-19 ([place]) COVID-19 Clin Com 12/06/21 12/06/21 12/06/21 16:16 16:16 16:21 MCV MCH MCHC RDW Plt Count MPV Immature Gran % (Auto) Neut % (Auto) Lymph % (Auto) [place] % (Auto) Eos % (Auto) Baso % (Auto) Lymph # (Auto) [place] # (Auto) Eos # (Auto) Baso # (Auto) Abs Immat Gran (auto) Absolute Neuts (auto) Absolute Nucleated RBC Nucleated RBC % (auto) PT INR Anion Gap Estim Creat Clear Calc Estimated GFR Random Glucose Fasting Glucose Lactic Acid 1.8 Calcium Magnesium Total Bilirubin Direct Bilirubin AST ALT Alkaline Phosphatase Ammonia 45 Total Protein Albumin Lipase TSH Urine Color YELLOW Urine Appearance CLEAR Urine pH 6.0 Ur Specific [place] 1.020 Urine Protein NEG Urine Glucose (UA) NEG Urine Ketones NEG Urine Blood NEG Urine Nitrite NEG Ur Leukocyte Esterase NEG Peritoneal WBC Peritoneal RBC Periton Neutrophils Periton Lymphocytes Peritoneal Monocytes Peritoneal Other Cells Urine Opiates Screen Urine Fentanyl Screen Ur Barbiturates Screen Ur Phencyclidine Scrn Ur Amphetamines Screen U Benzodiazepines Scrn Urine Cocaine Screen U Marijuana (THC) Screen Ethyl Alcohol COVID-19 ([place]) [employer] 12/06/21 12/07/21 12/07/21 16:21 02:41 07:52 MCV 92.1 MCH 30.9 MCHC 33.6 RDW 16.8 H Plt Count 193 MPV 10.3 Immature Gran % (Auto) 0.4 Neut % (Auto) 70.7 Lymph % (Auto) 17.0 L [place] % (Auto) 9.3 Eos % (Auto) 2.3 Baso % (Auto) 0.3 Lymph # (Auto) 2.0 [place] # (Auto) 1.1 Eos # (Auto) 0.3 Baso # (Auto) 0.0 Abs Immat Gran (auto) 0.05 H Absolute Neuts (auto) 8.5 H Absolute Nucleated RBC 0.000 Nucleated RBC % (auto) 0.0 PT INR Anion Gap 10 L Estim Creat Clear Calc 74.8 Estimated GFR > 60 Random Glucose 108 Fasting Glucose Lactic Acid Calcium 7.7 L D Magnesium Total Bilirubin Direct Bilirubin AST ALT Alkaline Phosphatase Ammonia Total Protein Albumin Lipase TSH Urine Color Urine Appearance Urine pH Ur Specific [place] Urine Protein Urine Glucose (UA) Urine Ketones Urine Blood Urine Nitrite Ur Leukocyte Esterase Peritoneal WBC Peritoneal RBC Periton Neutrophils Periton Lymphocytes Peritoneal Monocytes Peritoneal Other Cells Urine Opiates Screen Not Detected Urine Fentanyl Screen Not Detected Ur Barbiturates Screen Not Detected Ur Phencyclidine Scrn Not Detected Ur Amphetamines Screen Not Detected U Benzodiazepines Scrn Not Detected Urine Cocaine Screen Not Detected U Marijuana (THC) Screen Not Detected Ethyl Alcohol COVID-19 ([place]) COVID-Code Fever 12/07/21 12/07/21 12/07/21 07:52 07:52 12:00 MCV MCH MCHC RDW Plt Count MPV Immature Gran % (Auto) Neut % (Auto) Lymph % (Auto) [place] % (Auto) Eos % (Auto) Baso % (Auto) Lymph # (Auto) [place] # (Auto) Eos # (Auto) Baso # (Auto) Abs Immat Gran (auto) Absolute Neuts (auto) Absolute Nucleated RBC Nucleated RBC % (auto) PT INR Anion Gap 9 L Estim Creat Clear Calc 82.1 Estimated GFR > 60 Random Glucose Fasting Glucose 109 H Lactic Acid Calcium 7.8 L Magnesium Total Bilirubin 2.9 H Direct Bilirubin AST 33 ALT 12 Alkaline Phosphatase 293 H Ammonia 45 Total Protein 6.9 Albumin 2.5 L Lipase TSH Urine Color Urine Appearance Urine pH Ur Specific [place] Urine Protein Urine Glucose (UA) Urine Ketones Urine Blood Urine Nitrite Ur Leukocyte Esterase Peritoneal WBC 0.358 Peritoneal RBC < 0.002 Periton Neutrophils 14 Periton Lymphocytes 38 Peritoneal Monocytes 8 Peritoneal Other Cells 40 Urine Opiates Screen Urine Fentanyl Screen Ur Barbiturates Screen Ur Phencyclidine Scrn Ur Amphetamines Screen U Benzodiazepines Scrn Urine Cocaine Screen U Marijuana (THC) Screen Ethyl Alcohol COVID-19 ([place]) COVID-19 [facility] Com 12/07/21 13:54 MCV MCH MCHC RDW Plt Count MPV Immature Gran % (Auto) Neut % (Auto) Lymph % (Auto) [place] % (Auto) Eos % (Auto) Baso % (Auto) Lymph # (Auto) [place] # (Auto) Eos # (Auto) Baso # (Auto) Abs Immat Gran (auto) Absolute Neuts (auto) Absolute Nucleated RBC Nucleated RBC % (auto) PT INR Anion Gap 9 L Estim Creat Clear Calc 75.5 Estimated GFR > 60 Random Glucose 128 H Fasting Glucose Lactic Acid Calcium 8.1 L Magnesium Total Bilirubin Direct Bilirubin AST ALT Alkaline Phosphatase Ammonia Total Protein Albumin Lipase TSH Urine Color Urine Appearance Urine pH Ur Specific [place] Urine Protein Urine Glucose (UA) Urine Ketones Urine Blood Urine Nitrite Ur Leukocyte Esterase Peritoneal WBC Peritoneal RBC Periton Neutrophils Periton Lymphocytes Peritoneal Monocytes Peritoneal Other Cells Urine Opiates Screen Urine Fentanyl Screen Ur Barbiturates Screen Ur Phencyclidine Scrn Ur Amphetamines Screen U Benzodiazepines Scrn Urine Cocaine Screen U Marijuana (THC) Screen Ethyl Alcohol COVID-19 ([facility]) COVID-19 Clin Com Imaging Radiologist's Impressions: Impressions Head CT 12/06/21 17:16 IMPRESSION: No evidence of acute intracranial hemorrhage or edematous territorial infarction. Paracentesis Ultrasound 12/07/21 12:30 IMPRESSION: Successful diagnostic and therapeutic ultrasound-guided paracentesis performed. Assessment and Plan (1) Encephalopathy: Status: Acute (2) Acute hyponatremia: Status: Acute (3) Alcoholic cirrhosis of liver with ascites: Status: Acute Plan 56-year-old male with known history of alcohol cirrhosis presents with increased lethargy and somnolence in the backdrop of benzodiazepine use. Also noted is the recurrence of large volume ascites. Per fiancee and patient, no recent alcohol over the last month. 1. Lethargy -likely secondary to Ativan use -discussed with pharmacy, will order Ativan 1 mg b.i.d. and titrate from there -ammonia normal 2. Alcoholic cirrhosis with ascites -will schedule therapeutic paracentesis for a.m. 3. Hyponatremia -will hold diuretics overnight. Received IV fluids in the ER. Follow sodium in a.m. -likely reset osmostat giving baseline sodiums 129-131 range - urine spot sodium/fluid restriction Heparin Full Code Quality Stroke Does the patient have a stroke diagnosis?: No VTE Prior VTE?: No VTE Risk Level:: Medical - moderate - high VTE Device Contraindication: Treatment Not Indicated VTE Drug Contraindication: N/A - Med Ordered
[2021-12-07] MEDS: Heparin Sodium,Porcine 5,000 UNIT/ML VIAL 5000 UNIT SUBCUT (17:08)
[2021-12-07] MEDS: risperiDONE 0.5 MG TABLET PO (20:32)
[2021-12-07 21:28] LABS: Anion Gap 12 (12-20); Blood Urea Nitrogen 17 mg/dL (9-16); Calcium 8.1 mg/dL (8.4-10.2); Carbon Dioxide 17 mmol/L (22-29); Chloride 105 mmol/L (96-108); Creatinine Clr Calc Pharmacy 73.6; Estimated Glomerular Filt Rate > 60; Glucose Random 121 mg/dL (60-115); Potassium 3.8 mmol/L (3.3-5.1); Sodium 130 mmol/L (135-145)
--- NOTE | 2021-12-08 01:59 | PC.NURSE ---
Patient requested a bed vazquez. When I went to place bed vazquez patient was soiled and wet. I cleaned patient and changed pad. Than placed the bed vazquez.
[2021-12-08] MEDS: Albumin Human 25 % 100 ML IV (02:57)
[2021-12-08] MEDS: Heparin Sodium,Porcine 5,000 UNIT/ML VIAL 5000 UNIT SUBCUT (03:00)
[2021-12-08 07:21] LABS: Albumin Peritoneal Fluid 1.3; Total Protein Peritoneal Fluid 3.2
[2021-12-08 07:22] LABS: Glucose Peritoneal Fluid 108; LDH Peritoneal Fluid 66
[2021-12-08 07:41] VITALS: BP 104/52; PULSE 65; RESP 18; TEMP 36.9; O2SAT 99
[2021-12-08 07:44] VITALS: BP 104/52; PULSE 65; O2SAT 99
[2021-12-08 07:56] LABS: Glucose, Whole Blood 130 mg/dL (60-115)
--- NOTE | 2021-12-08 08:02 | MHC.CDI.CONC ---
CDI Concurrent Query Documentation Clarification: PHYSICIAN'S DOCUMENTATION REQUEST Date of Query: 12/08/21 0802 Patient Name: Leandro Rico Admit Date: 12/06/21 Dear Doctor, A review of the medical record indicates additional documentation may be needed. Please review below and update the documentation accordingly Risk Factors/Clinical Indicators/Treatments Lab finding: albumin 2.8 L 2.5 L Kedbumin Based on the above, could you clarify in the Progress Notes the appropriate diagnosis, if significant, that supports the above abnormalities and additional evaluation, monitoring, and/or treatment rendered: Hypoalbuminemia or other etiology of lab finding Labs indicate a diagnosis of (please specify) Other (please specify) Unable to determine Use of terms such as suspected, likely, concern for, or probable (associated with a specific diagnosis that is being evaluated, monitored, or treated as if it exists) are acceptable and can be coded in the inpatient setting, when documented at the time of discharge. Thank you, Shabana Camejo [facility] [place], CDIS Extension: [phone] Please use your independent medical judgment in providing your response. THIS QUERY IS PART OF THE PERMANENT MEDICAL RECORD Provider Response: Other Other Diagnosis: hypoalbuminemia multifactorial-sec to possible poor oral inatke , advanced liver dis.
--- NOTE | 2021-12-08 08:57 | PM.PNNEP ---
Subjective Subjective Date of Service: 12/08/21 Interval history: seen and examined Physical Exam Vital Signs: Vital Signs: Last Vital Signs Temp 98.5 F 12/08/21 07:41 Pulse 65 12/08/21 07:44 Resp 18 12/08/21 07:41 BP 104/52 L 12/08/21 07:44 Pulse Ox 99 12/08/21 07:44 BMI result Body Mass Index 33.3 Objective Data Labs CBC & Chem 7: 12/07/21 07:52 12/07/21 20:53 Labs: Laboratory Results - last 24 hr 12/07/21 12/07/21 12/07/21 12:00 12:00 13:54 Sodium 130 L Potassium 4.0 Chloride 105 Carbon Dioxide 20 L Anion Gap 9 L BUN 18 H Creatinine 1.13 Estim Creat Clear Calc 75.5 Estimated GFR > 60 POC Glucose Random Glucose 128 H Calcium 8.1 L Peritoneal WBC 0.358 Peritoneal RBC < 0.002 Periton Neutrophils 14 Periton Lymphocytes 38 Peritoneal Monocytes 8 Peritoneal Other Cells 40 Peritoneal Tot Protein 3.2 Peritoneal Albumin 1.3 Peritoneal LDH 66 Peritoneal Glucose 108 12/07/21 12/07/21 12/08/21 20:53 20:53 07:53 Sodium Cancelled 130 L Potassium 3.8 Chloride 105 Carbon Dioxide 17 L Anion Gap 12 BUN 17 H Creatinine 1.16 Estim Creat Clear Calc 73.6 Estimated GFR > 60 POC Glucose 130 H Random Glucose 121 H Calcium 8.1 L Peritoneal WBC Peritoneal RBC Periton Neutrophils Periton Lymphocytes Peritoneal Monocytes Peritoneal Other Cells Peritoneal Tot Protein Peritoneal Albumin Peritoneal LDH Peritoneal Glucose Microbiology Microbiology Results: Microbiology 12/07/21 12:00 Abdominal Fluid Gram Stain - Final 12/07/21 12:00 Abdominal Fluid Routine Culture - Preliminary No growth to date. 12/07/21 12:00 Abdominal Fluid Anaerobic Culture - Preliminary NO GROWTH AFTER 5 DAYS 12/06/21 18:17 Blood - Venous Blood Culture - Preliminary No growth after 24 hours. 12/06/21 16:14 Blood - Venous Blood Culture - Preliminary No growth after 24 hours. Procedures Date of Service Date of Service: 12/08/21 Assessment & Plan Assessment and plan (1) Hyponatremia: Status: Acute (2) Hepatic cirrhosis: Status: Acute Plan hypotonic hyponatremia most likely hypervolemic against the back drop of hepatic physiology multifactorial: -excessive free water intake -prerenal due to hepatic failure -decreased free water excretion rate of improvement has been on target REC continue fluid restriction will eventually need combination loop diuretics and potassium sparing agents follow kidney function and electrolytes Thank you Time Spent With Patient Time: Total time spent is greater than 50% in coordination of care (as documented) at patient's floor/unit and/or counseling patient: Progress Note: Quality Stroke Does the patient have a stroke diagnosis?: No
[2021-12-08 09:14] LABS: MANUAL DIFF FLAG NO
[2021-12-08 09:17] LABS: Basophils Absolute Auto 0.1 X10*3/uL (0.0-0.2); Basophils Percent Auto 0.4 % (0-2); Eosinophils Absolute Auto 0.3 X10*3/uL (0.0-0.4); Eosinophils Percent Auto 2.1 % (0-4); Hematocrit 25.7 % (42.0-52.0); Hemoglobin 8.3 g/dl (14.0-18.0); Imm Gran Abs Auto 0.07 X10*3/uL (0.00-0.03); Imm Gran Pct Auto 0.5 % (0.0-0.4); Lymphocytes Absolute Auto 1.9 X10*3/uL (1.2-4.9); Lymphocytes Percent Auto 14.7 % (20-40); Mean Corpuscular HGB Conc 32.3 g/dl (31.0-36.0); Mean Corpuscular Hemoglobin 30.6 pg (27.0-33.0); Mean Corpuscular Volume 94.8 fL (80.0-98.0); Monocytes Absolute Auto 1.2 X10*3/uL (0.1-1.2); Monocytes Percent Auto 9.2 % (2-11); Neutrophils Absolute Auto 9.4 x10*3/uL (2.0-8.3); Neutrophils Percent Auto 73.1 % (45-73); Platelet Count 192 X10*3/uL (160-400); Red Blood Count 2.71 X10*6/uL (4.60-5.80); Red Cell Distribution Width 16.9 % (11.0-16.0); White Blood Count 12.8 X10*3/uL (4.8-10.8)
[2021-12-08] MEDS: Gabapentin 400 MG CAPSULE PO (09:18)
[2021-12-08] MEDS: Omeprazole 20 MG CAPSULE.DR PO (09:18)
[2021-12-08] MEDS: Topiramate 100 MG TABLET 200 MG PO (09:18)
[2021-12-08] MEDS: 0.9 % Sodium Chloride Flush 3 ML SYRINGE IVFLUSH (09:18)
[2021-12-08 09:26] LABS: Ammonia 45 umol/L (13-55)
[2021-12-08] MEDS: LORazepam 1 MG TABLET PO (09:27)
[2021-12-08 09:37] LABS: Anion Gap 12 (12-20); Blood Urea Nitrogen 16 mg/dL (9-16); Calcium 8.2 mg/dL (8.4-10.2); Carbon Dioxide 18 mmol/L (22-29); Chloride 104 mmol/L (96-108); Creatinine Clr Calc Pharmacy 71.7; Estimated Glomerular Filt Rate > 60; Glucose Random 155 mg/dL (60-115); Potassium 4.2 mmol/L (3.3-5.1); Sodium 130 mmol/L (135-145)
[2021-12-08 09:39] LABS: Alanine Aminotransferase 10 U/L (0-40); Albumin Level 3.2 g/dL (3.5-5.0); Alkaline Phosphatase 240 U/L (39-117); Anion Gap 10 (12-20); Aspartate Amino Transferase 24 U/L (5-37); Blood Urea Nitrogen 16 mg/dL (9-16); Calcium 8.3 mg/dL (8.4-10.2); Carbon Dioxide 19 mmol/L (22-29); Chloride 106 mmol/L (96-108); Creatinine Clr Calc Pharmacy 69.9; Estimated Glomerular Filt Rate > 60; Glucose Fasting 157 mg/dL (60-99); Potassium 4.2 mmol/L (3.3-5.1); Sodium 131 mmol/L (135-145); Total Protein 6.9 g/dL (6.5-8.0)
[2021-12-08 11:00] VITALS: BP 92/55; PULSE 65; RESP 16; TEMP 36.2; O2SAT 98
--- NOTE | 2021-12-08 11:29 | MHC.CM.PN ---
MET WITH PT WHO REPORTS [id number] WITH HIS HEATHANCEE PT SAW PT AND RECOMMENDS ROBBIE E WITH PT PT IS ACTIVE WITH [facility] THEY WILL BE NOTIFIED OF DC PT IS VAX X3
--- NOTE | 2021-12-08 11:32 | CONS_ITS ---
DATE OF SERVICE: 12/08/2021 HISTORY OF PRESENT ILLNESS: This is a 56-year-old patient with a known history of alcoholic cirrhosis, recently discharged from [facility], presented to the hospital with fatigue and somnolence and was noted to have a low serum sodium. The patient was recently discharged to rehab and upon the consultation, he denies any chest pain, no shortness of breath. Denies any nausea, vomiting, or diarrhea. Denies any pain, but tells me that he has been drinking large amount of fluid on a daily basis. PAST MEDICAL HISTORY: Remarkable for a history of acute kidney injury, hyponatremia, alcoholic liver cirrhosis, ascites, anxiety, depression, dyslipidemia, hypertension, prostate cancer. MEDICATIONS: As inpatient and outpatient reviewed. ALLERGIES: HE IS ALLERGIC TO FISH AND PEANUTS. SOCIAL HISTORY: Has a history of heavy alcohol abuse. FAMILY HISTORY: Negative for kidney disease. REVIEW OF SYSTEMS: 10-point review of system negative except for pertinent in History of Present Illness. PHYSICAL EXAMINATION: VITAL SIGNS: The blood pressure is 104/52, heart rate 65, respiratory rate 19, and afebrile. CONSTITUTIONAL: Looks stated age, in no acute distress. NEUROLOGIC: He is alert, awake. HEAD: Atraumatic, normocephalic. NECK: Supple. LUNGS: Good air entry bilaterally. CARDIOVASCULAR: S1, S2. No rub. ABDOMEN: Soft and nontender. EXTREMITIES: No peripheral edema. LABORATORY DATA: Showed a sodium 130, potassium 3.8, chloride 105, CO2 of 17, BUN 17, creatinine 1.16. Sodium on admission was 124. IMPRESSION: 1. Hyponatremia. 2. Alcoholic liver cirrhosis. This is a patient with hypotonic most likely hypervolemic hyponatremia in the setting of excessive free water intake and decrease solid excretion against a backdrop of hepatic physiology. Serum sodium has improved and at a reasonable place and continue with fluid restriction. There is no indication for sodium chloride tablet and eventually have this patient on a combination of loop diuretic and potassium sparing agents as he have well known ascites. We will continue to follow closely his kidney function and electrolytes along with the medical team. Thank you for allowing me to participate in the care of this patient. Dean Miller MD GF/MODL / [phone]
--- NOTE | 2021-12-08 11:50 | MHC.CM.PN ---
pt dcd ho me with [facility]
--- NOTE | 2021-12-08 11:52 | P.DS_ITS ---
DS: Providers Provider Date of Service: 12/08/21 Date of admission: 12/06/21 18:34 Primary care physician: Arben German MD Consults: 12/06/21 18:36 Consult to Gastroenterology Routine Consulting Provider: Abhilash Brito Reason for consultation: cirrhosis w/ascities Has provider been notified: No 12/07/21 08:24 Consult to Nephrology Routine Consulting Provider: Flash Chen Reason for consultation: hyponatremia/ascitis/? braulio Has provider been notified: No DS: Diagnosis Discharge Diagnosis (1) Hyponatremia: Status: Acute (2) Encephalopathy: Status: Acute (3) Alcoholic cirrhosis of liver with ascites: Status: Acute DS: Summary Hospital Course Hospital Course: 56-year-old gentleman with known history of alcoholic cirrhosis and ascites recently discharged from [facility] presents with increased somnolence and fatigue.? Upon review of past admission, patient was taking A tivan 4 mg daily in the morning.? Was discharged to rehab with a 30 day taper planned.? It is unclear why he left the rehab however he went home and restarted his 4 mg daily.? Girlfriend states that over the past 2 days he has been increasingly somnolent however has continued to take his Ativan.? She denies alcohol as does he along with illicit drugs.? He will be admitted for further workup. Hospital course: Patient came to the hospital because of toxic metabolic encephalopathy secondary to excessive Ativan use, also has ascites significant secondary to advanced liver disease. Patient ativan adjusted to 1 mg p.o. b.i.d.-also discussed with the patient in detail to taper Ativan slowly over weeks-please see instructions. Also ascites moralez patient had abdominal tap yesterday, tolerated well. Ascites fluid cultures prelim neg Hypoalbuminemia: Probably related to poor oral intake, advanced liver disease: Patient was advised and encouraged for oral intake adequately. Hyponatremia: Seems multifactorial due to advanced liver disease, excessive fluid intake, patient advised to keep fluid intake between 1500 mL to 1800 mL / day. Monitor renal function and electrolytes with PCP outpatient. Patient management discussed with patient in detail length patient mental status is improved to baseline now. Going home with services which he already have. Above management discussed with the patient in detail length he understand and in agreement with the above plan, time spent 50 minutes and 50% time spent on counseling. Significant findings: As above. Procedures performed: None. Treatment and response: As above. Complications: None. Time Spent with Patient Time attestation: Total time spent providing and/or coordinating discharge services: Discharge coordination time: Greater than 30 minutes Quality: Stroke Does the patient have a stroke diagnosis?: No Physical Exam Vital Signs: Vital Signs: Last Vital Signs Temp 97.1 F 12/08/21 11:00 Pulse 65 12/08/21 11:00 Resp 16 12/08/21 11:00 BP 92/55 L 12/08/21 11:00 Pulse Ox 98 12/08/21 11:00 BMI result Body Mass Index 33.3 ? Appearance: Alert.? Oriented X3.? not in distress.?seems confused Eyes: Pupils equal, round and reactive to light.? Sclera nonicteric.? ENT: Pharynx normal.? Moist mucous membranes. cvs: rrr, [id number] , no murmur res: clear to auscultation ,no rhonchii or wheezing abd: no rebound or guarding ,nt, bs present ,has ascitis ext pulses present , no cyanosis . neuro: axo3, nonfocal. DS: Data Data Completed and Pending Completed studies during hospitalization [Text1]: Procedures Drainage of Peritoneal Cavity, Percutaneous Approach (11/11/21) Repair Scalp Skin, External Approach (11/20/21) Labs on day of discharge: Laboratory Results - last 24 hr 12/07/21 12/07/21 12/07/21 12:00 12:00 13:54 WBC RBC Hgb Hct MCV MCH MCHC RDW Plt Count MPV Immature Gran % (Auto) Neut % (Auto) Lymph % (Auto) Arroyo % (Auto) Eos % (Auto) Baso % (Auto) Lymph # (Auto) Arroyo # (Auto) Eos # (Auto) Baso # (Auto) Abs Immat Gran (auto) Absolute Neuts (auto) Absolute Nucleated RBC Nucleated RBC % (auto) Sodium 130 L Potassium 4.0 Chloride 105 Carbon Dioxide 20 L Anion Gap 9 L BUN 18 H Creatinine 1.13 Estim Creat Clear Calc 75.5 Estimated GFR > 60 POC Glucose Random Glucose 128 H Fasting Glucose Calcium 8.1 L Total Bilirubin AST ALT Alkaline Phosphatase Ammonia Total Protein Albumin Peritoneal WBC 0.358 Peritoneal RBC < 0.002 Periton Neutrophils 14 Periton Lymphocytes 38 Peritoneal Monocytes 8 Peritoneal Other Cells 40 Peritoneal Tot Protein 3.2 Peritoneal Albumin 1.3 Peritoneal LDH 66 Peritoneal Glucose 108 12/07/21 12/07/21 12/08/21 20:53 20:53 07:53 WBC RBC Hgb Hct MCV MCH MCHC RDW Plt Count MPV Immature Gran % (Auto) Neut % (Auto) Lymph % (Auto) Arroyo % (Auto) Eos % (Auto) Baso % (Auto) Lymph # (Auto) Arroyo # (Auto) Eos # (Auto) Baso # (Auto) Abs Immat Gran (auto) Absolute Neuts (auto) Absolute Nucleated RBC Nucleated RBC % (auto) Sodium Cancelled 130 L Potassium 3.8 Chloride 105 Carbon Dioxide 17 L Anion Gap 12 BUN 17 H Creatinine 1.16 Estim Creat Clear Calc 73.6 Estimated GFR > 60 POC Glucose 130 H Random Glucose 121 H Fasting Glucose Calcium 8.1 L Total Bilirubin AST ALT Alkaline Phosphatase Ammonia Total Protein Albumin Peritoneal WBC Peritoneal RBC Periton Neutrophils Periton Lymphocytes Peritoneal Monocytes Peritoneal Other Cells Peritoneal Tot Protein Peritoneal Albumin Peritoneal LDH Peritoneal Glucose 12/08/21 12/08/21 12/08/21 09:08 09:08 09:08 WBC 12.8 H RBC 2.71 L Hgb 8.3 L Hct 25.7 L MCV 94.8 MCH 30.6 MCHC 32.3 RDW 16.9 H Plt Count 192 MPV 10.0 Immature Gran % (Auto) 0.5 H Neut % (Auto) 73.1 H Lymph % (Auto) 14.7 L Arroyo % (Auto) 9.2 Eos % (Auto) 2.1 Baso % (Auto) 0.4 Lymph # (Auto) 1.9 Arroyo # (Auto) 1.2 Eos # (Auto) 0.3 Baso # (Auto) 0.1 Abs Immat Gran (auto) 0.07 H Absolute Neuts (auto) 9.4 H Absolute Nucleated RBC 0.000 Nucleated RBC % (auto) 0.0 Sodium 131 L Potassium 4.2 Chloride 106 Carbon Dioxide 19 L Anion Gap 10 L BUN 16 Creatinine 1.22 Estim Creat Clear Calc 69.9 Estimated GFR > 60 POC Glucose Random Glucose Fasting Glucose 157 H D Calcium 8.3 L Total Bilirubin 3.0 H AST 24 ALT 10 Alkaline Phosphatase 240 H Ammonia 45 Total Protein 6.9 Albumin 3.2 L D Peritoneal WBC Peritoneal RBC Periton Neutrophils Periton Lymphocytes Peritoneal Monocytes Peritoneal Other Cells Peritoneal Tot Protein Peritoneal Albumin Peritoneal LDH Peritoneal Glucose 12/08/21 09:08 WBC RBC Hgb Hct MCV MCH MCHC RDW Plt Count MPV Immature Gran % (Auto) Neut % (Auto) Lymph % (Auto) Arroyo % (Auto) Eos % (Auto) Baso % (Auto) Lymph # (Auto) [place]royo # (Auto) Eos # (Auto) Baso # (Auto) Abs Immat Gran (auto) Absolute Neuts (auto) Absolute Nucleated RBC Nucleated RBC % (auto) Sodium 130 L Potassium 4.2 Chloride 104 Carbon Dioxide 18 L Anion Gap 12 BUN 16 Creatinine 1.19 Estim Creat Clear Calc 71.7 Estimated GFR > 60 POC Glucose Random Glucose 155 H Fasting Glucose Calcium 8.2 L Total Bilirubin AST ALT Alkaline Phosphatase Ammonia Total Protein Albumin Peritoneal WBC Peritoneal RBC Periton Neutrophils Periton Lymphocytes Peritoneal Monocytes Peritoneal Other Cells Peritoneal Tot Protein Peritoneal Albumin Peritoneal LDH Peritoneal Glucose Preliminary micro results at discharge 12/07/21 12:00 Routine Culture - Preliminary Abdominal Fluid No growth to date. Anaerobic Culture - Preliminary No growth to date. 12/06/21 18:17 Blood Culture - Preliminary Blood - Venous No growth after 24 hours. 12/06/21 16:14 Blood Culture - Preliminary Blood - Venous No growth after 24 hours. Additional Comments Additional comments: US/US paracentesis abd w/image IMPRESSION: Successful diagnostic and therapeutic ultrasound-guided paracentesis performed.? Gram stain Final 12/07/21-140 Gram stain results: No polys No organisms seen Routine Culture Preliminary 12/08/21-0814 No growth to date. Anaerobic Culture Preliminary 12/08/21-910 No growth to date. Blood Cult(2nd) Procedure Result Verified Site Blood Culture (Second) Preliminary 12/07/21-2019 No growth after 24 hours. Discharge Plan Discharge Patient Disposition: Home Health Service Discharge Diagnosis: Toxic metabolic encephalopathy secondary to possible excessive Ativan use. Ascitis related advanced liver disease. Referrals: denise vazquez [Other] - 1 Week Arben German MD [Primary Care Provider] - 1 Week Discharge Medications: New thiamine HCl (vitamin B1) 100 mg tablet 100 mg PO DAILY Qty: 30 0RF folic acid 1 mg tablet 1 mg PO DAILY Qty: 30 0RF Continued spironolactone 25 mg tablet 2 tab PO DAILY 0RF propranolol 10 mg tablet 1 tab PO TID 0RF pravastatin 20 mg tablet 1 tab PO BEDTIME 0RF topiramate [Topamax] 200 mg tablet 1 tab PO BID 0RF zolpidem [Ambien] 10 mg tablet 1 tab PO BEDTIME 0RF risperidone 0.5 mg tablet 1 tab PO BEDTIME 0RF pantoprazole 40 mg tablet,delayed release (DR/EC) 1 tab PO DAILY 0RF lactulose [Constulose] 10 gram/15 mL solution 30 ml PO TID 0RF gabapentin [Neurontin] 400 mg capsule 1 cap PO TID 0RF Changed lorazepam [Ativan] 1 mg tablet 1 mg PO BID Qty: 1 0RF Rx Instructions: taper slowly -take Ativan 1 mg p.o. b.i.d. for for 1 week , then switched to Ativan 0.5 mg b.i.d.for week, and switched Ativan 0.5 mg daily for 1 week, then switch to ativan 0.25 mg po daily for 1 week and stop. Discussed with the patient in detail length. Discharge Orders: Discharge Order (Routine); Ordered 12/08/21 Ordered By: Matt Rosenberg Diet: advance to usual diet Activity on Discharge: As tolerated Stand Alone Forms: Patient Portal Discharge page Care Plan Goals: Patient came to the hospital because of toxic metabolic encephalopathy secondary to excessive Ativan use, also has ascites significant secondary to advanced liver disease. Patient ativan adjusted to 1 mg p.o. b.i.d.-also discussed with the patient in detail to taper Ativan slowly over weeks-please see instructions. Also ascites moralez patient had abdominal tap yesterday, tolerated well. Ascites fluid cultures prelim Hyponatremia: Seems multifactorial due to advanced liver disease, excessive fluid intake, patient advised to keep fluid intake between 1500 mL to 1800 mL / day. Monitor renal function and electrolytes with PCP outpatient. Patient management discussed with patient in detail length patient mental status is improved to baseline now. Going home with services which he already have. Health Concerns: As above. Plan of Treatment: As above. Assessment: As above.
--- NOTE | 2021-12-08 11:54 | MHC.CM.PN ---
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
== END 2021-12-08 14:47 | disposition home health service (06) | DRG 917 ==
LOC: HO.ED 18:20 → HO.EDOVER 18:43 → HO.S3 12-08 08:24 → HO.EDOVER 12-08 09:33
PROVIDERS: Internal Medicine; Radiology Diagnostic Radiology; Admitting Provider Hospitalist; Emergency Provider Emergency Medicine; PCP Internal Medicine; Visit Provider Internal Medicine
PROC: 0W9G3ZZ Drainage of Peritoneal Cavity, Percutaneous Approach (ICD-10-PCS; principal; 2021-12-07 10:00)
DX: T42.6X1A Poisoning by other antiepileptic and sedative-hypnotic drugs, accidental (unintentional), initial encounter (principal); G92.8 Other toxic encephalopathy; E87.1 Hypo-osmolality and hyponatremia; N17.9 Acute kidney failure, unspecified; D68.9 Coagulation defect, unspecified; K70.31 Alcoholic cirrhosis of liver with ascites; K71.10 Toxic liver disease with hepatic necrosis, without coma; E88.09 Other disorders of plasma-protein metabolism, not elsewhere classified; T42.6X5A Adverse effect of other antiepileptic and sedative-hypnotic drugs, initial encounter; Y92.9 Unspecified place or not applicable; Z20.822 Contact with and (suspected) exposure to COVID-19; Z87.891 Personal history of nicotine dependence; Z79.899 Other long term (current) drug therapy
CPT/HCPCS: 36415; 49083; 70450; 80048; 80053; 80076; 80307; 81003; 82042; 82077; 82140; 82945; 82947; 83605; 83615; 83690; 83735; 84157; 84443; 84484; 85025; 85610; 87040; 87071; 87073; 87205; 87635; 89051; 93005; 96360; 97162; 99285; P9047

== ENCOUNTER 2022-02-06 11:44 | Inpatient (IN) | payer MEDICARE, SELFPAY ==
[2022-02-06] VITALS (7 sets, daily range): BP systolic 97–106; BP diastolic 31–51; PULSE 63–66; RESP 16–19; TEMP 36.6–37.2; O2SAT 97–99; BMI 26.1
--- NOTE | ~2022-02-06 | US_ITS ---
EXAMINATION: ULTRASOUND-GUIDED PARACENTESIS. CLINICAL INFORMATION: Alcoholic cirrhosis of liver with ascites. COMPARISON: None TECHNIQUE: Following explaining ultrasound-guided paracentesis procedure, benefits and risk, a written consent was obtained. Patient was placed supine on ultrasound stretcher and preliminary ultrasound imaging was obtained. An optimal site was selected along the right lower quadrant and marked. The marked site was cleaned and draped in usual sterile manner. 1% lidocaine was administered at puncture site. Through a small skin incision a 5 [place] 91 [place] catheter was advanced into the peritoneal space. After observing fluid return, stylet was withdrawn and catheter connected to vacuum bottle via connecting cannula. After obtaining all fluid and observing normal fluid return, catheter was withdrawn and complete hemostasis achieved at puncture site. Sterile dressing applied postprocedure. Patient tolerated procedure well. Patient returned to ER from very came from. FINDINGS: On preliminary ultrasound imaging there is moderate fluid seen in the pelvis especially in lower quadrants. Approximately 3.5 L of clear yellowish fluid was removed and sent to lab for further analysis. US/US paracentesis abd w/image IMPRESSION: Successful ultrasound-guided therapeutic paracentesis performed.
--- NOTE | ~2022-02-06 | XR_ITS ---
EXAMINATION: XR CHEST CLINICAL INFORMATION: Shortness of breath. COMPARISON: Chest done on 11/20/2021. TECHNIQUE: Frontal view of the chest was obtained. FINDINGS: Bilateral small pleural effusions (left greater than right) and mild pulmonary venous congestion are present. The cardiac mediastinal silhouette is within normal limits. Nonspecific airspace disease at left lung base. The remainder of the lung calvert are clear. XR/XR chest 1V IMPRESSION: Abnormal chest radiograph showing evidence of bilateral small pleural effusions (left of the right) and mild pulmonary venous congestion, may represent CHF.
[2022-02-06 12:31] LABS: MANUAL DIFF FLAG NO
[2022-02-06 12:32] LABS: Appearance Urine CLEAR; Color Urine YELLOW; Glucose Urine UA NEG (NEG); Leukocyte Esterase Urine NEG (NEG); Nitrite Urine NEG (NEG); Specific Gravity - Urine <= 1.005 (1.005-1.025); UACC Culture Trigger NO; Urine Blood 3+ (NEG); Urine Ketones NEG (NEG); Urine Protein NEG (NEG-TRACE)
[2022-02-06 12:33] LABS: Basophils Absolute Auto 0.1 X10*3/uL (0.0-0.2); Basophils Percent Auto 0.5 % (0-2); Eosinophils Absolute Auto 0.4 X10*3/uL (0.0-0.4); Hematocrit 25.1 % (42.0-52.0); Hemoglobin 7.9 g/dl (14.0-18.0); Imm Gran Abs Auto 0.05 X10*3/uL (0.00-0.03); Imm Gran Pct Auto 0.4 % (0.0-0.4); Lymphocytes Absolute Auto 2.7 X10*3/uL (1.2-4.9); Lymphocytes Percent Auto 19.2 % (20-40); Mean Corpuscular HGB Conc 31.5 g/dl (31.0-36.0); Mean Corpuscular Hemoglobin 29.4 pg (27.0-33.0); Mean Corpuscular Volume 93.3 fL (80.0-98.0); Mean Platelet Volume 9.2 fL (9.4-12.4); Monocytes Absolute Auto 1.3 X10*3/uL (0.1-1.2); Monocytes Percent Auto 9.1 % (2-11); Neutrophils Absolute Auto 9.6 x10*3/uL (2.0-8.3); Neutrophils Percent Auto 67.8 % (45-73); Platelet Count 311 X10*3/uL (160-400); Red Blood Count 2.69 X10*6/uL (4.60-5.80); Red Cell Distribution Width 15.7 % (11.0-16.0); White Blood Count 14.2 X10*3/uL (4.8-10.8)
[2022-02-06 12:42] LABS: WBC Urine 0-2 /HPF (0-4)
[2022-02-06 12:43] LABS: Squamous Epithelial Cell Urine TRACE /LPF
[2022-02-06 13:03] LABS: INTERNATIONAL NORM RATIO 1.4 (0.9-1.1); Prothrombin Time 16.1 SEC (9.9-13.0)
[2022-02-06 13:08] LABS: Alanine Aminotransferase 6 U/L (0-40); Albumin Level 2.6 g/dL (3.5-5.0); Alkaline Phosphatase 237 U/L (39-117); Anion Gap 9 (12-20); Aspartate Amino Transferase 23 U/L (5-37); Bilirubin Direct 1.2 mg/dL (0.0-0.5); Bilirubin Total 2.1 mg/dL (0.0-1.0); Blood Urea Nitrogen 8 mg/dL (9-16); Carbon Dioxide 23 mmol/L (22-29); Chloride 102 mmol/L (96-108); Estimated Glomerular Filt Rate > 60; Glucose Random 105 mg/dL (60-115); Lipase 56 U/L (8-78); Potassium 3.3 mmol/L (3.3-5.1); Sodium 131 mmol/L (135-145); Total Protein 7.4 g/dL (6.5-8.0)
--- NOTE | 2022-02-06 14:47 | ED_ITS ---
HPI - Male Genitourinary General Chief complaint: Urogenital-Male Stated complaint: Blood in urine Time Seen by Provider: 02/06/22 14:41 Source: patient Mode of arrival: ambulatory Limitations: no limitations History of Present Illness HPI Narrative: 56-year-old male with a past medical history of cirrhosis, ascites, metabolic encephalopathy, prostate cancer, NATHANIEL, hyponatremia, hypertension hyperlipidemia presents for blood in his urine that he noticed today. Patient noticed some small clots of blood in his pool up. This also happened yesterday. Patient feels he can empty his bladder completely. Patient states he was tapped for paracentesis to drain ascites 10 days ago at [facility], and they took 4.5 L. He feels short of breath at baseline. He was hospitalized for 2 months this winter due to cirrhosis. He is alert and oriented x4. States his skin has been very itchy. Related Data Home Medications Medication Instructions Recorded Confirmed lactulose 10 gram/15 mL oral 30 ml PO TID 11/11/21 02/06/22 solution (Constulose) pantoprazole 40 mg tablet,delayed 1 tab PO DAILY 11/11/21 02/06/22 release propranolol 10 mg tablet 1 tab PO TID 11/11/21 02/06/22 risperidone 0.5 mg tablet 1 tab PO BEDTIME 11/11/21 02/06/22 spironolactone 25 mg tablet 2 tab PO DAILY 11/11/21 02/06/22 topiramate 200 mg tablet (Topamax) 1 tab PO BID 11/11/21 02/06/22 zolpidem 10 mg tablet (Ambien) 1 tab PO BEDTIME 11/11/21 02/06/22 gabapentin 400 mg capsule 1 cap PO TID 11/20/21 02/06/22 (Neurontin) amoxicillin 875 mg tablet 1 tab PO BID 02/06/22 02/06/22 fluoxetine 20 mg capsule (Prozac) 3 cap PO DAILY 02/06/22 02/06/22 furosemide 20 mg tablet 1 tab PO DAILY 02/06/22 02/06/22 Previous Rx's Medication Instructions Recorded folic acid 1 mg tablet 1 mg PO DAILY #30 tab 12/08/21 thiamine HCl (vitamin B1) 100 mg 100 mg PO DAILY #30 tab 12/08/21 tablet Allergies Allergy/AdvReac Type Severity Reaction Status Date / Time Fish Containing Products Allergy Severe THROAT Verified 12/06/21 15:50 SWELLING peanut [Peanut] Allergy Severe THROAT Verified 12/06/21 15:50 SWELLING Review of Systems Constitutional: Constitutional: Denies body ache(s), Denies chills, Reports fatigue, Denies fever(s), Denies headache(s), Denies malaise and Denies weakness Eyes: Eyes: Denies diplopia ENT: Denies vertigo, Denies dizziness, Denies otalgia, Denies headache(s) and Denies sore throat Cardiovascular: Cardiovascular: Denies chest pain, Denies syncope, Denies leg edema, Denies lightheadedness, Denies palpitations and Reports dyspnea Respiratory: Respiratory: Denies chest congestion, Denies cough and Reports dyspnea Gastrointestinal: Gastrointestinal: Denies abdominal pain, Denies melena, Carlos es hematochezia, Denies coffee ground emesis, Denies constipation, Denies diarrhea, Denies nausea, Denies vomiting and Denies hematemesis Comments: Increasing ascites Genitourinary: Genitourinary: Reports hematuria, Denies oliguria, Denies genital pain, Denies dysuria, Denies flank pain, Denies testicular pain and Denies urinary frequency Integumentary/Breasts: Skin/Breast: Reports pruritus Neurologic: Denies confusion, Denies vertigo, Denies dizziness, Denies syncope, Denies headache(s) and Denies weakness Psychiatric: Psychiatric: Reports anxiety, Denies confusion and Denies depression Endocrine: Endocrine: Reports fatigue and Denies palpitations PMFSH Past Medical History Medical History Abdominal ascites Acute metabolic encephalopathy Acute metabolic encephalopathy NATHANIEL (acute kidney injury) Alcoholic cirrhosis of liver with ascites Anxiety Depression Falls Hepatic cirrhosis Hyperlipidemia Hypertension Prostate cancer Social History Social History Household Members: Other Household Members Other:: fiancee Housing: Condominium Do you presently have visiting nurse or other home services: Yes Alcohol intake: former Patient Tobacco Use Status: Former Tobacco user Tobacco use type: Cigarette Use of substances other than those prescribed or required for medical reasons: No Advance Directives: Yes Advance Directives on File: Yes Advance Directives Date on File: 11/11/21 service: No Current occupational status: disabled Physical Exam Vital Signs: Vital Signs: Last Vital Signs Temp 99.0 F 02/06/22 15:16 Pulse 65 02/06/22 15:10 Resp 16 02/06/22 15:10 BP 106/51 L 02/06/22 15:10 Pulse Ox 98 02/06/22 15:10 BMI result Body Mass Index 26.1 Const: General: alert and awake; No confusion Nutritional Appearance: obese Orientation/consciousness: No confusion Limitations: no limitations HEENT: Head: Yes normal to inspection, Yes normocephalic and Yes atraumatic Ears: hearing grossly normal bilaterally and external ears normal General nose exam: Normal external nose present Face and sinus: Yes normal facial exam and Yes sinuses nontender Mouth: Normal oral and palatal mucosa present Throat: Yes posterior oropharynx normal Eyes: Other: No scleral icterus, pale conjunctivae Conjunctivae: conjunctivae normal Pupils: Equal, round and reactive pupils present EOM: EOMs intact bilaterally Neck: Neck: Yes normal visual inspection, Yes full ROM, Yes no lymphadenopathy, Yes no meningeal signs, Yes trachea midline and Yes supple Resp: Effort & Inspection: normal respiratory effort and able to speak in complete sentences Auscultation: clear to auscultation bilaterally, no crackles, no rales, no rhonchi and no wheezes Cardio: Rate: regular rate Rhythm: regular rhythm Heart sounds: S1 normal heart sound present and S2 normal heart sound present GI: Inspection: Yes distended and Yes caput medusae present Palpation (GI): Soft to palpation, Tenderness to palpation present (GI) (Diffusely), no guarding, not rigid, Hepatomegaly present and Other GI palpation findings present (Palpable and hard liver) Percussion: Yes Fluid wave present : Penis: normal penis and circumcised Meatus: Blood at meatus present Scrotum: scrotum normal and testes descended bilaterally Testes: no testicular swelling and no testicular tenderness Skin: Other: Multiple excoriation raines on patient's abdomen and bilateral shins Neuro: General: no meningeal signs and No confusion Cranial nerves: Yes Equal, round and reactive pupils present Extrem: General: Yes normal to inspection and Yes full ROM Psych: Appearance: grossly normal Affect: normal affect Attitude: cooperative Thought process: Normal thought process present Course Course Course Narrative: 56-year-old male with a past medical history of cirrhosis, metabolic encephalop athy, abdominal ascites, presents for blood in his urine that he noticed today. On exam, patient has palpable hard liver, distended abdomen with fluid wave, mild caput medusa, excoriations on his abdomen and anterior shins, conjunctival pallor. Patient has a leukocytosis of 14.2, sodium of 131, alk-phos is 237, albumin is low at 2.6. INR is 1.4. There is blood in patient's urine, no infection. Bedside guaiac was positive. No gross blood, stool was pale yellow. Patient has had a gradual decline of his H&H since October In October H&H was 11 and 33.5, in November H&H was 8.3 and 25, today it is 7.9 and 25. Patient is endorsing shortness of breath. Dr Ch suggest patient get 1 unit of blood. Rectal temp is 99.0 degrees. Patient does not meet sepsis criteria. [facility] hospitalist for admission. Reevaluation(s) Reevaluation #1: Bladder scan postvoid shows 417 cc. Will order continuous bladder irrigation, as I suspect clots may be obstructing flow of urine. Patient has a normal creatinine of 0.86, and BUN of 8 [facility], he will admit MDM - Male Genitourinary Lab Data Result diagrams: 02/06/22 12:23 02/06/22 12:23 Labs: Lab Results 02/06/22 02/06/22 02/06/22 Range/Units 12:23 12:23 12:23 WBC 14.2 H (4.8-10.8) X10*3/uL RBC 2.69 L (4.60-5.80) X10*6/uL Hgb 7.9 L (14.0-18.0) g/dl Hct 25.1 L (42.0-52.0) % MCV 93.3 (80.0-98.0) fL MCH 29.4 (27.0-33.0) pg MCHC 31.5 (31.0-36.0) g/dl RDW 15.7 (11.0-16.0) % Plt Count 311 D (160-400) X10*3/uL MPV 9.2 L (9.4-12.4) fL Immature Gran % (Auto) 0.4 (0.0-0.4) % Neut % (Auto) 67.8 (45-73) % Lymph % (Auto) 19.2 L (20-40) % [place] % (Auto) 9.1 (2-11) % Eos % (Auto) 3.0 (0-4) % Baso % (Auto) 0.5 (0-2) % Lymph # (Auto) 2.7 (1.2-4.9) X10*3/uL [place] # (Auto) 1.3 H (0.1-1.2) X10*3/uL Eos # (Auto) 0.4 (0.0-0.4) X10*3/uL Baso # (Auto) 0.1 (0.0-0.2) X10*3/uL Abs Immat Gran (auto) 0.05 H (0.00-0.03) X10*3/uL Absolute Neuts (auto) 9.6 H (2.0-8.3) x10*3/uL Absolute Nucleated RBC 0.000 (0.0-0.012) X10*3/uL Nucleated RBC % (auto) 0.0 (0.0-0.2) /100WBC PT 16.1 H (9.9-13.0) SEC INR 1.4 H (0.9-1.1) Sodium 131 L (135-145) mmol/L Potassium 3.3 D (3.3-5.1) mmol/L Chloride 102 (96-108) mmol/L Carbon Dioxide 23 (22-29) mmol/L Anion Gap 9 L (12-20) BUN 8 L (9-16) mg/dL Creatinine 0.86 (0.5-1.4) mg/dL Estim Creat Clear Calc 99.0 Estimated GFR > 60 Random Glucose 105 (60-115) mg/dL Calcium 8.0 L (8.4-10.2) mg/dL Total Bilirubin 2.1 H (0.0-1.0) mg/dL Direct Bilirubin 1.2 H (0.0-0.5) mg/dL AST 23 (5-37) U/L ALT 6 (0-40) U/L Alkaline Phosphatase 237 H (39-117) U/L Ammonia (13-55) umol/L Total Protein 7.4 (6.5-8.0) g/dL Albumin 2.6 L (3.5-5.0) g/dL Lipase 56 (8-78) U/L Urine Color Urine Appearance Urine pH (5.0-8.0) Ur Specific [place] (1.005-1.025) Urine Protein (NEG-TRACE) MG/DL Urine Glucose (UA) (NEG) MG/DL Urine Ketones (NEG) MG/DL Urine Blood (NEG) Urine Nitrite (NEG) Ur Leukocyte Esterase (NEG) Urine RBC (0) /HPF Urine WBC (0-4) /HPF Ur Squamous Epith Cells /LPF Urine Bacteria /LPF COVID-19 ([facility]) (Negative) COVID-19 Clin Com Blood Type Antibody Screen Crossmatch 02/06/22 02/06/22 02/06/22 Range/Units 12:23 15:57 15:57 WBC (4.8-10.8) X10*3/uL RBC (4.60-5.80) X10*6/uL Hgb (14.0-18.0) g/dl Hct (42.0-52.0) % MCV (80.0-98.0) fL MCH (27.0-33.0) pg MCHC (31.0-36.0) g/dl RDW (11.0-16.0) % Plt Count (160-400) X10*3/uL MPV (9.4-12.4) fL Immature Gran % (Auto) (0.0-0.4) % Neut % (Auto) (45-73) % Lymph % (Auto) (20-40) % [place] % (Auto) (2-11) % Eos % (Auto) (0-4) % Baso % (Auto) (0-2) % Lymph # (Auto) (1.2-4.9) X10*3/uL [place] # (Auto) (0.1-1.2) X10*3/uL Eos # (Auto) (0.0-0.4) X10*3/uL Baso # (Auto) (0.0-0.2) X10*3/uL Abs Immat Gran (auto) (0.00-0.03) X10*3/uL Absolute Neuts (auto) (2.0-8.3) x10*3/uL Absolute Nucleated RBC (0.0-0.012) X10*3/uL Nucleated RBC % (auto) (0.0-0.2) /100WBC PT (9.9-13.0) SEC INR (0.9-1.1) Sodium (135-145) mmol/L Potassium (3.3-5.1) mmol/L Chloride (96-108) mmol/L Carbon Dioxide (22-29) mmol/L Anion Gap (12-20) BUN (9-16) mg/dL Creatinine (0.5-1.4) mg/dL Estim Creat Clear Calc Estimated GFR Random Glucose (60-115) mg/dL Calcium (8.4-10.2) mg/dL Total Bilirubin (0.0-1.0) mg/dL Direct Bilirubin (0.0-0.5) mg/dL AST (5-37) U/L ALT (0-40) U/L Alkaline Phosphatase (39-117) U/L Ammonia (13-55) umol/L Total Protein (6.5-8.0) g/dL Albumin (3.5-5.0) g/dL Lipase (8-78) U/L Urine Color YELLOW Urine Appearance CLEAR Urine pH 6.0 (5.0-8.0) Ur Specific [place] <= 1.005 (1.005-1.025) Urine Protein NEG (NEG-TRACE) MG/DL Urine Glucose (UA) NEG (NEG) MG/DL Urine Ketones NEG (NEG) MG/DL Urine Blood 3+ H (NEG) Urine Nitrite NEG (NEG) Ur Leukocyte Esterase NEG (NEG) Urine RBC 5-9 H (0) /HPF Urine WBC 0-2 (0-4) /HPF Ur Squamous Epith Cells TRACE /LPF Urine Bacteria NONE /LPF COVID-19 ([facility]) Negative (Negative) COVID-19 Clin Com See Note Blood Type A Positive Antibody Screen NEGATIVE Crossmatch See Detail 02/06/22 Range/Units 15:57 WBC (4.8-10.8) X10*3/uL RBC (4.60-5.80) X10*6/uL Hgb (14.0-18.0) g/dl Hct (42.0-52.0) % MCV (80.0-98.0) fL MCH (27.0-33.0) pg MCHC (31.0-36.0) g/dl RDW (11.0-16.0) % Plt Count (160-400) X10*3/uL MPV (9.4-12.4) fL Immature Gran % (Auto) (0.0-0.4) % Neut % (Auto) (45-73) % Lymph % (Auto) (20-40) % [place] % (Auto) (2-11) % Eos % (Auto) (0-4) % Baso % (Auto) (0-2) % Lymph # (Auto) (1.2-4.9) X10*3/uL [place] # (Auto) (0.1-1.2) X10*3/uL Eos # (Auto) (0.0-0.4) X10*3/uL Baso # (Auto) (0.0-0.2) X10*3/uL Abs Immat Gran (auto) (0.00-0.03) X10*3/uL Absolute Neuts (auto) (2.0-8.3) x10*3/uL Absolute Nucleated RBC (0.0-0.012) X10*3/uL Nucleated RBC % (auto) (0.0-0.2) /100WBC PT (9.9-13.0) SEC INR (0.9-1.1) Sodium (135-145) mmol/L Potassium (3.3-5.1) mmol/L Chloride (96-108) mmol/L Carbon Dioxide (22-29) mmol/L Anion Gap (12-20) BUN (9-16) mg/dL Creatinine (0.5-1.4) mg/dL Estim Creat Clear Calc Estimated GFR Random Glucose (60-115) mg/dL Calcium (8.4-10.2) mg/dL Total Bilirubin (0.0-1.0) mg/dL Direct Bilirubin (0.0-0.5) mg/dL AST (5-37) U/L ALT (0-40) U/L Alkaline Phosphatase (39-117) U/L Ammonia 37 (13-55) umol/L Total Protein (6.5-8.0) g/dL Albumin (3.5-5.0) g/dL Lipase (8-78) U/L Urine Color Urine Appearance Urine pH (5.0-8.0) Ur Specific [place] (1.005-1.025) Urine Protein (NEG-TRACE) MG/DL Urine Glucose (UA) (NEG) MG/DL Urine Ketones (NEG) MG/DL Urine Blood (NEG) Urine Nitrite (NEG) Ur Leukocyte Esterase (NEG) Urine RBC (0) /HPF Urine WBC (0-4) /HPF Ur Squamous Epith Cells /LPF Urine Bacteria /LPF COVID-19 ([facility]) (Negative) COVID-19 Clin Com Blood Type Antibody Screen Crossmatch Discharge Plan Discharge Clinical Impression: Gross hematuria, Acute lower GI bleeding Prescriptions: No Action spironolactone 25 mg tablet 2 tab PO DAILY 0RF propranolol 10 mg tablet 1 tab PO TID 0RF topiramate [Topamax] 200 mg tablet 1 tab PO BID 0RF zolpidem [Ambien] 10 mg tablet 1 tab PO BEDTIME 0RF risperidone 0.5 mg tablet 1 tab PO BEDTIME 0RF pantoprazole 40 mg tablet,delayed release (DR/EC) 1 tab PO DAILY 0RF lactulose [Constulose] 10 gram/15 mL solution 30 ml PO TID 0RF thiamine HCl (vitamin B1) 100 mg tablet 100 mg PO DAILY Qty: 30 0RF Label Comments: needs refill folic acid 1 mg tablet 1 mg PO DAILY Qty: 30 0RF Label Comments: needs refill gabapentin [Neurontin] 400 mg capsule 1 cap PO TID 0RF amoxicillin 875 mg tablet 1 tab PO BID 0RF furosemide 20 mg tablet 1 tab PO DAILY 0RF fluoxetine [Prozac] 20 mg capsule 3 cap PO DAILY 0RF
[2022-02-06 16:15] LABS: Ammonia 37 umol/L (13-55)
[2022-02-06 16:22] LABS: COVID-19 Test Negative (Negative); IDNOW Serial# 55D5AD1C
--- NOTE | 2022-02-06 16:52 | PHA.MEDREC ---
Pharmacy Consult ? Medication Reconciliation Pharmacy has completed the medication reconciliation. patient states he should be on vit b and folic acid but out of refills. Spoke to patient and
--- NOTE | 2022-02-06 17:45 | PC.NURSE ---
per hospitalist, no need for CBI at this time and to place regular rojas cath for retention.
--- NOTE | 2022-02-06 18:15 | PM.IMHP ---
History of Present Illness Date of Service: 02/06/22 Chief Complaint: hematuria, BRBPR a 56 years old male with PMH of cirrhosis, HTN, prostate CA among others who presented to the hospital with a complaint of hematuria and blood with stool. The patient reports that he woke up this morning and went to the bathroom and he found a blood on the polyps he wear. He passed a urine came out as bright red blood as well on 2 occasions but later in the emergency it came out as clear urine. He reports feeling more weak and short of breath upon ambulation for the last few weeks with no reported chest pain, palpitation, change in bowel habit, fever, chills, abdominal pain. He also report passing bloody stool as he is aware of hemorrhoids diagnosis And he is supposed to follow up with Gastroenterology for a colonoscopy later this year. In the emergency the patient was found to have a drop in his hemoglobin to 7.9. The patient reported hesitancy and urgency while passing the urine. Bladder scan found more than 400 cc of urine. Admitted for further evaluation and treatment. Review of Systems Review of Systems: No fever, chills No chest pain, palpitation No shortness of breath or coughing but has dyspnea on exertion No abdominal pain, nausea or vomiting but noticed abdominal distension reporting hesitancy and passing grade urine No any rash or wounds PMFSH Medical History Abdominal ascites Acute metabolic encephalopathy Acute metabolic encephalopathy NATHANIEL (acute kidney injury) Alcoholic cirrhosis of liver with ascites Anxiety Depression Falls Hepatic cirrhosis Hyperlipidemia Hypertension Prostate cancer Social History Household Members: Other Household Members Other:: fiancee Housing: Condominium Do you presently have visiting nurse or other home services: Yes Alcohol intake: former Patient Tobacco Use Status: Former Tobacco user Tobacco use type: Cigarette Use of substances other than those prescribed or required for medical reasons: No Advance Directives: Yes Advance Directives on File: Yes Advance Directives Date on File: 11/11/21 service: No Current occupational status: disabled Meds Allergies Allergy/AdvReac Type Severity Reaction Status Date / Time Fish Containing Products Allergy Severe THROAT Verified 12/06/21 15:50 SWELLING peanut [Peanut] Allergy Severe THROAT Verified 12/06/21 15:50 SWELLING Active Medications: Current Medications Acetaminophen (Acetaminophen 325 Mg Tablet) 650 mg PO Q6H PRN PRN Reason: Pain, Mild (Pain Scale 1-3) Fluoxetine HCl (Fluoxetine Hcl 20 Mg Capsule) 60 mg PO DAILY [facility] Folic Acid (Folic Acid 1 Mg Tablet) 1 mg PO DAILY [facility] Furosemide (Furosemide 20 Mg Tablet) 20 mg PO DAILY [facility]; Protocol Gabapentin (Gabapentin 400 Mg Capsule) 400 mg PO TID [facility] Lactulose (Lactulose 20 Gm/30 Ml Solution) 20 gm PO TID [facility] Ondansetron HCl (Ondansetron Hcl 4 Mg/2 Ml Vial) 4 mg IVPUSH Q8H PRN PRN Reason: Nausea and Vomiting Pharmacy Consult (Consult Rx Perform Med Rec) 1 each MISCELLANE ONCE PRN PRN Reason: Consult order Propranolol HCl (Propranolol Hcl 10 Mg Tablet) 10 mg PO TID [facility]; Protocol Risperidone (Risperidone 0.5 Mg Tablet) 0.5 mg PO BEDTIME [facility] Sodium Chloride (0.9 % Sodium Chloride Flush 3 Ml Syringe) 3 ml IVFLUSH QSHIFT [facility] Spironolactone (Spironolactone 25 Mg Tablet) 50 mg PO DAILY [facility]; Protocol Tamsulosin HCl (Tamsulosin Hcl 0.4 Mg Capsule) 0.4 mg PO DAILY [facility] Thiamine HCl (Thiamine Hcl 100 Mg Tablet) 100 mg PO DAILY [facility] Topiramate (Topiramate 100 Mg Tablet) 200 mg PO BID [facility] Zolpidem Tartrate (Zolpidem Tartrate 5 Mg Tablet) 10 mg PO BEDTIME [facility] Home Medications Medication Instructions Recorded Confirmed Last Taken Type lactulose 10 gram/15 mL oral 30 ml PO TID 11/11/21 02/06/22 02/06/22 History solution (Constulose) pantoprazole 40 mg tablet,delayed 1 tab PO DAILY 11/11/21 02/06/22 02/06/22 History release propranolol 10 mg tablet 1 tab PO TID 11/11/21 02/06/22 02/06/22 History risperidone 0.5 mg tablet 1 tab PO BEDTIME 11/11/21 02/06/22 02/05/22 History spironolactone 25 mg tablet 2 tab PO DAILY 11/11/21 02/06/22 02/06/22 History topiramate 200 mg tablet (Topamax) 1 tab PO BID 11/11/21 02/06/22 02/06/22 History zolpidem 10 mg tablet (Ambien) 1 tab PO BEDTIME 11/11/21 02/06/22 02/05/22 History gabapentin 400 mg capsule 1 cap PO TID 11/20/21 02/06/22 02/06/22 History (Neurontin) amoxicillin 875 mg tablet 1 tab PO BID 02/06/22 02/06/22 02/06/22 History fluoxetine 20 mg capsule (Prozac) 3 cap PO DAILY 02/06/22 02/06/22 02/06/22 History furosemide 20 mg tablet 1 tab PO DAILY 02/06/22 02/06/22 02/06/22 History Physical Exam Vital Signs and Narrative: Vital Signs: Last Vital Signs Temp 99.0 F 02/06/22 15:16 Pulse 65 02/06/22 15:10 Resp 16 02/06/22 15:10 BP 106/51 L 02/06/22 15:10 Pulse Ox 98 02/06/22 15:10 BMI result Body Mass Index 26.1 Const: Other: Constitutional : Alert, oriented, not in distress Neck : Normal inspection, Supple Cardiovascular : RRR, no JVP, no lower extremity edema Respiratory : fair bilateral air entry, no crackles, wheezes or rhonchi Gastrointestinal: soft, lax, mild tenderness in the suprapubic area, mild to moderate amount of ascites Skin : Warm, Dry Neurological : Alert & oriented x3, No focal deficit , CN 2-12 within normal Results Labs CBC and Chem 7: 02/06/22 12:23 02/06/22 12:23 Labs: Laboratory Results - last 24 hr 02/06/22 02/06/22 02/06/22 12:23 12:23 12:23 MCV 93.3 MCH 29.4 MCHC 31.5 RDW 15.7 Plt Count 311 D MPV 9.2 L Immature Gran % (Auto) 0.4 Neut % (Auto) 67.8 Lymph % (Auto) 19.2 L [place] % (Auto) 9.1 Eos % (Auto) 3.0 Baso % (Auto) 0.5 Lymph # (Auto) 2.7 [place] # (Auto) 1.3 H Eos # (Auto) 0.4 Baso # (Auto) 0.1 Abs Immat Gran (auto) 0.05 H Absolute Neuts (auto) 9.6 H Absolute Nucleated RBC 0.000 Nucleated RBC % (auto) 0.0 PT 16.1 H INR 1.4 H Anion Gap 9 L Estim Creat Clear Calc 99.0 Estimated GFR > 60 Random Glucose 105 Calcium 8.0 L Total Bilirubin 2.1 H Direct Bilirubin 1.2 H AST 23 ALT 6 Alkaline Phosphatase 237 H Ammonia Total Protein 7.4 Albumin 2.6 L Lipase 56 Urine Color Urine Appearance Urine pH Ur Specific [place] Urine Protein Urine Glucose (UA) Urine Ketones Urine Blood Urine Nitrite Ur Leukocyte Esterase Urine RBC Urine WBC Ur Squamous Epith Cells Urine Bacteria COVID-19 ([facility]) COVID-19 Clin Com Blood Type Antibody Screen Crossmatch 02/06/22 02/06/22 02/06/22 12:23 15:57 15:57 MCV MCH MCHC RDW Plt Count MPV Immature Gran % (Auto) Neut % (Auto) Lymph % (Auto) [place] % (Auto) Eos % (Auto) Baso % (Auto) Lymph # (Auto) [place] # (Auto) Eos # (Auto) Baso # (Auto) Abs Immat Gran (auto) Absolute Neuts (auto) Absolute Nucleated RBC Nucleated RBC % (auto) PT INR Anion Gap Estim Creat Clear Calc Estimated GFR Random Glucose Calcium Total Bilirubin Direct Bilirubin AST ALT Alkaline Phosphatase Ammonia Total Protein Albumin Lipase Urine Color YELLOW Urine Appearance CLEAR Urine pH 6.0 Ur Specific [place] <= 1.005 Urine Protein NEG Urine Glucose (UA) NEG Urine Ketones NEG Urine Blood 3+ H Urine Nitrite NEG Ur Leukocyte Esterase NEG Urine RBC 5-9 H Urine WBC 0-2 Ur Squamous Epith Cells TRACE Urine Bacteria NONE COVID-19 ([facility]) Negative COVID-19 Clin Com See Note Blood Type A Positive Antibody Screen NEGATIVE Crossmatch See Detail 02/06/22 15:57 MCV MCH MCHC RDW Plt Count MPV Immature Gran % (Auto) Neut % (Auto) Lymph % (Auto) [place] % (Auto) Eos % (Auto) Baso % (Auto) Lymph # (Auto) [place] # (Auto) Eos # (Auto) Baso # (Auto) Abs Immat Gran (auto) Absolute Neuts (auto) Absolute Nucleated RBC Nucleated RBC % (auto) PT INR Anion Gap Estim Creat Clear Calc Estimated GFR Random Glucose Calcium Total Bilirubin Direct Bilirubin AST ALT Alkaline Phosphatase Ammonia 37 Total Protein Albumin Lipase Urine Color Urine Appearance Urine pH Ur Specific [place] Urine Protein Urine Glucose (UA) Urine Ketones Urine Blood Urine Nitrite Ur Leukocyte Esterase Urine RBC Urine WBC Ur Squamous Epith Cells Urine Bacteria COVID-19 ([facility]) COVID-19 Clin Com Blood Type Antibody Screen Crossmatch Imaging Radiologist's Impressions: Impressions Chest X-Ray 02/06/22 15:28 IMPRESSION: Abnormal chest radiograph showing evidence of bilateral small pleural effusions (left of the right) and mild pulmonary venous congestion, may represent CHF. Assessment and Plan (1) Gross hematuria: Status: Acute (2) Acute lower GI bleeding: Status: Acute (3) Hyponatremia: Status: Acute (4) Alcoholic cirrhosis of liver with ascites: Status: Acute (5) Acute on chronic blood loss anemia: Status: Acute Plan a 56 years old male with PMH of cirrhosis, HTN, prostate CA among others who presented to the hospital with a complaint of hematuria and blood with stool. acute on chronic blood-loss anemia 2/2 GIB seems chronic blood loss from hemorrhoids associated with cirrhosis Hemoglobin 7.9, transfuse a unit of blood by emergency Get GI evaluation Monitor H and H Hematuria Could be secondary to prostate, Bladder from cirrhosis INR 1.4 to give vitamin K Get urology evaluation Urine retention Has positive symptoms Place Barber catheter start tamsulosin Liver cirrhosis with ascites Continue home medications of Lasix, propranolol and spironolactone monitor for the need of paracentesis Continue the rest of his home medications DVT PPX SCDs The patient will need to overnight hospital stay for evaluation of her blood loss and hematuria given high chance of Worsening bleeding and decompensation. Quality Stroke Does the patient have a stroke diagnosis?: No VTE Prior VTE?: No VTE Risk Level:: Medical - moderate - high VTE Device Contraindication: N/A - Device Ordered VTE Drug Contraindication: Treatment Not Indicated
[2022-02-06] MEDS: Lidocaine HCl 2 % Urojet 10 ML JEL.PF.APP TOPICAL (18:26)
[2022-02-06] MEDS: Tamsulosin HCL 0.4 MG CAPSULE PO (19:09)
[2022-02-06] MEDS: Topiramate 100 MG TABLET 200 MG PO (23:08)
[2022-02-06] MEDS: Zolpidem Tartrate 5 MG TABLET 10 MG PO (23:08)
[2022-02-06] MEDS: Propranolol HCL 10 MG TABLET PO (23:09)
[2022-02-06] MEDS: risperiDONE 0.5 MG TABLET PO (23:09)
[2022-02-06] MEDS: Gabapentin 400 MG CAPSULE PO (23:09)
[2022-02-07 03:52] VITALS: BP 115/57; PULSE 63; RESP 14; O2SAT 95
--- NOTE | 2022-02-07 04:04 | PC.NURSE ---
I assumed nursing care of Leandro at 1900 Since that time he has been alert, oriented x 3, resting in bed without complaints with the exception of burning at the site of his Barber catheter. Respirations are non-labored, RR WNL, no cyanosis, he speaks in full sentences. he appears jaundice and pale, consistent with his baseline per the pt. He denies chest pain. No nausea. No vomiting. Barber is draining small amounts of clear, yellow urine. Pt takes PO meds and fluids without difficulty. he is awaiting inpatient bed assignment and he verbalizes an understanding of this.
--- NOTE | 2022-02-07 06:26 | P.CNGI_ITS ---
History of Present Illness Data of Consult Service Date: 02/07/22 Requesting physician: Hector Handley Primary Care Provider: Arben German MD HPI Reason for consult: Anemia 56 year old male with PMH of alcohol related cirrhosis, HTN, prostate CA (s/P XRT) and anxiety who I am asked to see for evaluation of anemia. Patient had presented with hematuria and hesitancy as well as rectal bleeding which he assumed was from hemorrhoids. blood usually noted on wiping and he admits this has been going on for a very long time (months). He was found to be in urine retention on admission and a rojas was passed. He does admit to exertional SOB and weakness but no cough or chest pain. No change in bowel habit, no abdominal pain or fever/chills. He had a colonoscopy in past with polyps removed ?5 yrs ago and also had EGD before, has had admissions with encephalopathy in recent past. He has a GI doctor at [facility] and is awaiting EGD and colonoscopy scheduled for next month. He does get occasional paracentesis, does not feel he needs it right now. He stopped alcohol and smoking about 6 months ago. Review of Systems Review of Systems: Yes all other systems are reviewed and are negative Constitutional: Constitutional: Denies body ache(s), Denies chills, Reports fatigue, Denies fever(s), Denies headache(s), Denies malaise and Denies weakness Eyes: Eyes: Denies diplopia ENT: Denies vertigo, Denies dizziness, Denies otalgia, Denies headache(s) and Denies sore throat Cardiovascular: Cardiovascular: Denies chest pain, Denies syncope, Denies leg edema, Denies lightheadedness, Denies palpitations and Reports dyspnea Respiratory: Respiratory: Denies chest congestion, Denies cough and Reports dyspnea Gastrointestinal: Gastrointestinal: Denies abdominal pain, Denies melena, Denies hematochezia, Denies coffee ground emesis, Denies constipation, Denies diarrhea, Denies nausea, Denies vomiting and Denies hematemesis Genitourinary: Genitourinary: Reports hematuria, Denies oliguria, Denies genital pain, Denies dysuria, Denies flank pain, Denies testicular pain and Denies urinary frequency Integumentary/Breasts: Skin/Breast: Reports pruritus Neurologic: Denies confusion, Denies vertigo, Denies dizziness, Denies syncope, Denies headache(s) and Denies weakness Psychiatric: Psychiatric: Reports anxiety, Denies confusion and Denies depression Endocrine: Endocrine: Reports fatigue and Denies palpitations PMF Past Medical History Medical History Abdominal ascites Acute metabolic encephalopathy Acute metabolic encephalopathy NATHANIEL (acute kidney injury) Alcoholic cirrhosis of liver with ascites Anxiety Depression Falls Hepatic cirrhosis Hyperlipidemia Hypertension Prostate cancer Family History Pertinent family history: none except patient's multiple cousins are? heavy alcohol drinkers Social History Social History Household Members: Other Household Members Other:: fiancee Housing: [facility] Do you presently have visiting nurse or other home services: Yes Alcohol intake: former Patient Tobacco Use Status: Former Tobacco user Tobacco use type: Cigarette Use of substances other than those prescribed or required for medical reasons: No Advance Directives: Yes Advance Directives on File: Yes Advance Directives Date on File: 11/11/21 service: No Current occupational status: disabled Meds Allergies Allergy/AdvReac Type Severity Reaction Status Date / Time Fish Containing Products Allergy Severe THROAT Verified 12/06/21 15:50 SWELLING peanut [Peanut] Allergy Severe THROAT Verified 12/06/21 15:50 SWELLING Active Medications: Current Medications Acetaminophen (Acetaminophen 325 Mg Tablet) 650 mg PO Q6H PRN PRN Reason: Pain, Mild (Pain Scale 1-3) Fluoxetine HCl (Fluoxetine Hcl 20 Mg Capsule) 60 mg PO DAILY [facility] Folic Acid (Folic Acid 1 Mg Tablet) 1 mg PO DAILY [facility] Furosemide (Furosemide 20 Mg Tablet) 20 mg PO DAILY [facility]; Protocol Gabapentin (Gabapentin 400 Mg Capsule) 400 mg PO TID [facility] Last Admin: 02/06/22 23:09 Dose: 400 mg Documented by: Lactulose (Lactulose 20 Gm/30 Ml Solution) 20 gm PO TID [facility] Last Admin: 02/06/22 23:10 Dose: Not Given Documented by: Ondansetron HCl (Ondansetron Hcl 4 Mg/2 Ml Vial) 4 mg IVPUSH Q8H PRN PRN Reason: Nausea and Vomiting Pharmacy Consult (Consult Rx Perform Med Rec) 1 each MISCELLANE ONCE PRN PRN Reason: Consult order Propranolol HCl (Propranolol Hcl 10 Mg Tablet) 10 mg PO TID [facility]; Protocol Last Admin: 02/06/22 23:09 Dose: 10 mg Documented by: Risperidone (Risperidone 0.5 Mg Tablet) 0.5 mg PO BEDTIME [facility] Last Admin: 02/06/22 23:09 Dose: 0.5 mg Documented by: Sodium Chloride (0.9 % Sodium Chloride Flush 3 Ml Syringe) 3 ml IVFLUSH QSHIFT [facility] Last Admin: 02/07/22 00:07 Dose: Not Given Documented by: Spironolactone (Spironolactone 25 Mg Tablet) 50 mg PO DAILY [facility]; Protocol Tamsulosin HCl (Tamsulosin Hcl 0.4 Mg Capsule) 0.4 mg PO DAILY [facility] Last Admin: 02/06/22 19:09 Dose: 0.4 mg Documented by: Thiamine HCl (Thiamine Hcl 100 Mg Tablet) 100 mg PO DAILY [facility] Topiramate (Topiramate 100 Mg Tablet) 200 mg PO BID [facility] Last Admin: 02/06/22 23:08 Dose: 200 mg Documented by: Zolpidem Tartrate (Zolpidem Tartrate 5 Mg Tablet) 10 mg PO BEDTIME [facility] Last Admin: 02/06/22 23:08 Dose: 10 mg Documented by: Home Medications Medication Instructions Recorded Confirmed Last Taken Type lactulose 10 gram/15 mL oral 30 ml PO TID 11/11/21 02/06/22 02/06/22 History solution (Constulose) pantoprazole 40 mg tablet,delayed 1 tab PO DAILY 11/11/21 02/06/22 02/06/22 History release propranolol 10 mg tablet 1 tab PO TID 11/11/21 02/06/22 02/06/22 History risperidone 0.5 mg tablet 1 tab PO BEDTIME 11/11/21 02/06/22 02/05/22 History spironolactone 25 mg tablet 2 tab PO DAILY 11/11/21 02/06/22 02/06/22 History topiramate 200 mg tablet (Topamax) 1 tab PO BID 11/11/21 02/06/22 02/06/22 History zolpidem 10 mg tablet (Ambien) 1 tab PO BEDTIME 11/11/21 02/06/22 02/05/22 History gabapentin 400 mg capsule 1 cap PO TID 02/03/0602/06/22 02/06/22 History (Neurontin) amoxicillin 875 mg tablet 1 tab PO BID 02/06/22 02/06/22 02/06/22 History fluoxetine 20 mg capsule (Prozac) 3 cap PO DAILY 02/06/22 02/06/22 02/06/22 History furosemide 20 mg tablet 1 tab PO DAILY 02/06/22 02/06/22 02/06/22 History Physical Exam Vital Signs: Vital Signs: Last Vital Signs Temp 98.4 F 02/06/22 21:15 Pulse 63 02/07/22 03:52 Resp 14 02/07/22 03:52 BP 115/57 L 02/07/22 03:52 Pulse Ox 95 02/07/22 03:52 BMI result Body Mass Index 26.1 Const: Other: Constitutional : Alert, oriented, not in distress Neck : Normal inspection, Supple Cardiovascular : RRR, no JVP, no lower extremity edema Respiratory : fair bilateral air entry, no crackles, wheezes or rhonchi Gastrointestinal: soft, lax, mild tenderness in the suprapubic area, mild to moderate amount of ascites Skin : Warm, Dry Neurological : Alert & oriented x3, No focal deficit , CN 2-12 within normal General: alert and awake; No confusion Nutritional Appearance: obese Orientation/consciousness: No confusion Limitations: no limitations HEENT: Head: Yes normal to inspection, Yes normocephalic and Yes atraumatic Ears: hearing grossly normal bilaterally and external ears normal General nose exam: Normal external nose present Face and sinus: Yes normal facial exam and Yes sinuses nontender Mouth: Normal oral and palatal mucosa present Throat: Yes posterior oropharynx normal Eyes: Other: No scleral icterus, pale conjunctivae Conjunctivae: conjunctivae normal Pupils: Equal, round and reactive pupils present EOM: EOMs intact bilaterally Neck: Neck: Yes normal visual inspection, Yes full ROM, Yes no lymphadenopathy, Yes no meningeal signs, Yes trachea midline and Yes supple Resp: Effort & Inspection: normal respiratory effort and able to speak in complete sentences Auscultation: clear to auscultation bilaterally, no crackles, no rales, no rhonchi and no wheezes Cardio: Rate: regular rate Rhythm: regular rhythm Heart sounds: S1 normal heart sound present and S2 normal heart sound present GI: Inspection: Yes distended and Yes caput medusae present Palpation (GI): Soft to palpation, Tenderness to palpation present (GI) (Diffusely), no guarding, not rigid, Hepatomegaly present and Other GI palpation findings pr esent (Palpable and hard liver) Percussion: Yes Fluid wave present : Penis: normal penis and circumcised Meatus: Blood at meatus present Scrotum: scrotum normal and testes descended bilaterally Testes: no testicular swelling and no testicular tenderness Skin: Other: Multiple excoriation raines on patient's abdomen and bilateral shins Neuro: General: no meningeal signs and No confusion Cranial nerves: Yes Equal, round and reactive pupils present Extrem: General: Yes normal to inspection and Yes full ROM Psych: Appearance: grossly normal Affect: normal affect Attitude: cooperative Thought process: Normal thought process present Results Labs CBC & Chem 7: 02/07/22 07:00 02/07/22 07:00 Labs: Short CBC 02/06/22 Range/Units 12:23 WBC 14.2 H (4.8-10.8) X10*3/uL Hgb 7.9 L (14.0-18.0) g/dl Hct 25.1 L (42.0-52.0) % Plt Count 311 D (160-400) X10*3/uL BMP 02/06/22 12:23 Sodium 131 L Potassium 3.3 D Chloride 102 Carbon Dioxide 23 BUN 8 L Creatinine 0.86 Calcium 8.0 L Liver Function 02/06/22 Range/Units 12:23 Total Bilirubin 2.1 H (0.0-1.0) mg/dL Direct Bilirubin 1.2 H (0.0-0.5) mg/dL AST 23 (5-37) U/L ALT 6 (0-40) U/L Alkaline Phosphatase 237 H (39-117) U/L Albumin 2.6 L (3.5-5.0) g/dL Urine 02/06/22 Range/Units 12:23 Urine Color YELLOW Urine Appearance CLEAR Urine pH 6.0 (5.0-8.0) Ur Specific [place] <= 1.005 (1.005-1.025) Urine Protein NEG (NEG-TRACE) MG/DL Urine Glucose (UA) NEG (NEG) MG/DL Assessment and Plan (1) Gross hematuria: Status: Acute (2) Acute lower GI bleeding: Status: Acute (3) Hyponatremia: Status: Acute (4) Alcoholic cirrhosis of liver with ascites: Status: Acute (5) Acute on chronic blood loss anemia: Status: Acute Plan 1/ Anemia, multifactorial from cirrhosis and hypersplenism, chronic blood loss from rectal bleeding and hematuria. He may have bleeding from hemorrhoids or RAVE 2/2 to prior XRT from prostate cancer. 2/ Clinically appears to have large ascites PLAN: 1/ He is fairly stable and has no complaints right now, already scheduled for endoscopies next month at [facility]. 2/ Recommend cont to monitor H/H, if stable no action, if worsens or increased rectal bleeding then in patient colonoscopy can be considered, can also check iron studies and give IV Iron if indciated 3/ Check US abdomen and consider therapeutic tapping 4/ urology f/u for hematuria and prostate ca history Procedures Date of Service Date of Service: 02/07/22
[2022-02-07 07:04] VITALS: BP 111/60; PULSE 62; RESP 16; TEMP 36.4; O2SAT 97
[2022-02-07] MEDS: Topiramate 100 MG TABLET 200 MG PO (07:19)
[2022-02-07] MEDS: Folic Acid 1 MG TABLET PO (07:19)
[2022-02-07] MEDS: Furosemide 20 MG TABLET PO (07:19)
[2022-02-07] MEDS: Thiamine HCL 100 MG TABLET PO (07:20)
[2022-02-07] MEDS: Tamsulosin HCL 0.4 MG CAPSULE PO (07:20)
[2022-02-07] MEDS: Gabapentin 400 MG CAPSULE PO ×2 (07:20→15:31)
[2022-02-07] MEDS: FLUoxetine HCl 20 MG CAPSULE 60 MG PO (07:20)
[2022-02-07] MEDS: Propranolol HCL 10 MG TABLET PO (07:20)
[2022-02-07] MEDS: Spironolactone 25 MG TABLET 50 MG PO (07:20)
[2022-02-07] MEDS: 0.9 % Sodium Chloride Flush 3 ML SYRINGE IVFLUSH (07:21)
[2022-02-07 07:34] LABS: Hematocrit 25.5 % (42.0-52.0); Hemoglobin 8.1 g/dl (14.0-18.0); Mean Corpuscular HGB Conc 31.8 g/dl (31.0-36.0); Mean Corpuscular Hemoglobin 29.5 pg (27.0-33.0); Mean Corpuscular Volume 92.7 fL (80.0-98.0); Mean Platelet Volume 9.8 fL (9.4-12.4); Platelet Count 245 X10*3/uL (160-400); Red Blood Count 2.75 X10*6/uL (4.60-5.80); Red Cell Distribution Width 15.5 % (11.0-16.0); White Blood Count 9.9 X10*3/uL (4.8-10.8)
[2022-02-07 07:35] LABS: Anion Gap 9 (12-20); Blood Urea Nitrogen 8 mg/dL (9-16); Calcium 8.1 mg/dL (8.4-10.2); Carbon Dioxide 24 mmol/L (22-29); Chloride 107 mmol/L (96-108); Creatinine Clr Calc Pharmacy 101.3; Estimated Glomerular Filt Rate > 60; Glucose Random 108 mg/dL (60-115); Potassium 3.8 mmol/L (3.3-5.1); Sodium 136 mmol/L (135-145)
--- NOTE | 2022-02-07 11:34 | MHC.CM.PN ---
PT REPORTS HE LIVES WITH HIS [facility]ANCE AND IS INDEPENDENT WITH CARE HE REPORTS HE HAS NO SERVICES AND DOES NOT FEEL HE WILL NEED THEM AT DC PT HAS A CANE AND WALKER HE USES PRN PT HAS A HCP ON FILE PCP: HARSHAD MELGOZA PT SAYS HE IS COVID-19 VACCINATED IMM DELIVERED, COPY SENT TO [facility] CURRENT DC PLAN IS HOME WITH NO SERVICES PT TO ARRANGE TRANSPORT
[2022-02-07 12:52] VITALS: BP 105/53; PULSE 60; RESP 18; TEMP 36.5; O2SAT 98
--- NOTE | 2022-02-07 14:41 | PC.NURSE ---
patient transfered to IR at this time. no distress on departure
--- NOTE | 2022-02-07 15:14 | P.PNIM_ITS ---
Subjective Subjective Date of Service: 02/07/22 Interval History: seen and evaluated this morning Hematuria improved significantly heart 2 episodes of small fresh blood with bowel motions Hemoglobin stable around 9 Review of Systems No fever, chills No chest pain, palpitation No shortness of breath or coughing but has dyspnea on exertion No abdominal pain, nausea or vomiting but noticed abdominal distension Barber catheter in place, urine clearing up No any rash or wounds Physical Exam Vital Signs: Vital Signs: Last Vital Signs Temp 97.7 F 02/07/22 12:52 Pulse 60 02/07/22 12:52 Resp 18 02/07/22 12:52 BP 105/53 L 02/07/22 12:52 Pulse Ox 98 02/07/22 12:52 BMI result Body Mass Index 26.1 Const: Other: Constitutional : Alert, oriented, not in distress Neck : Normal inspection, Supple Cardiovascular : RRR, no JVP, no lower extremity edema Respiratory : fair bilateral air entry, no crackles, wheezes or rhonchi Gastrointestinal: soft, lax, no tenderness, moderate amount of ascites Skin : Warm, Dry, Barber catheter in place Neurological : Alert & oriented x3, No focal deficit , CN 2-12 within normal Objective Data Active Medications Acetaminophen (Acetaminophen 325 Mg Tablet) 650 mg PO Q6H PRN PRN Reason: Pain, Mild (Pain Scale 1-3) Fluoxetine HCl (Fluoxetine Hcl 20 Mg Capsule) 60 mg PO DAILY [facility] Last Admin: 02/07/22 07:20 Dose: 60 mg Documented by: JORGE Folic Acid (Folic Acid 1 Mg Tablet) 1 mg PO DAILY [facility] Last Admin: 02/07/22 07:19 Dose: 1 mg Documented by: JORGE Furosemide (Furosemide 20 Mg Tablet) 20 mg PO DAILY [facility]; Protocol Last Admin: 02/07/22 07:19 Dose: 20 mg Documented by: JORGE Gabapentin (Gabapentin 400 Mg Capsule) 400 mg PO TID [facility] Last Admin: 02/07/22 07:20 Dose: 400 mg Documented by: JORGE Hydrocortisone (Hydrocortisone 2.5 % Rectal Cr 30 Gm Tube) 1 appl [place] BID [facility] Last Admin: 02/07/22 12:46 Dose: Not Given Documented by: KHALIF-MERYL Non-Admin Reason: Med Not Available Lactulose (Lactulose 20 Gm/30 Ml Solution) 20 gm PO TID [facility] Last Admin: 02/07/22 07:20 Dose: Not Given Documented by: JORGE Non-Admin Reason: Patient Refused Ondansetron HCl (Ondansetron Hcl 4 Mg/2 Ml Vial) 4 mg IVPUSH Q8H PRN PRN Reason: Nausea and Vomiting Pharmacy Consult (Consult Rx Perform Med Rec) 1 each MISCELLANE ONCE PRN PRN Reason: Consult order Propranolol HCl (Propranolol Hcl 10 Mg Tablet) 10 mg PO TID [facility]; Protocol Last Admin: 02/07/22 07:20 Dose: 10 mg Documented by: JORGE Risperidone (Risperidone 0.5 Mg Tablet) 0.5 mg PO BEDTIME [facility] Last Admin: 02/06/22 23:09 Dose: 0.5 mg Documented by: LORENZO Sodium Chloride (0.9 % Sodium Chloride Flush 3 Ml Syringe) 3 ml IVFLUSH QSHIFT [facility] Last Admin: 02/07/22 07:21 Dose: 3 ml Documented by: JORGE Spironolactone (Spironolactone 25 Mg Tablet) 50 mg PO DAILY [facility]; Protocol Last Admin: 02/07/22 07:20 Dose: 50 mg Documented by: JORGE Tamsulosin HCl (Tamsulosin Hcl 0.4 Mg Capsule) 0.4 mg PO DAILY [facility] Last Admin: 02/07/22 07:20 Dose: 0.4 mg Documented by: JORGE Thiamine HCl (Thiamine Hcl 100 Mg Tablet) 100 mg PO DAILY [facility] Last Admin: 02/07/22 07:20 Dose: 100 mg Documented by: JORGE Topiramate (Topiramate 100 Mg Tablet) 200 mg PO BID [facility] Last Admin: 02/07/22 07:19 Dose: 200 mg Documented by: JORGE Zolpidem Tartrate (Zolpidem Tartrate 5 Mg Tablet) 10 mg PO BEDTIME [facility] Last Admin: 02/06/22 23:08 Dose: 10 mg Documented by: LORENZO Labs CBC & Chem 7: 02/07/22 07:00 02/07/22 07:00 Labs: Laboratory Results - last 24 hr 02/06/22 02/06/22 02/06/22 15:57 15:57 15:57 MCV MCH MCHC RDW Plt Count MPV Absolute Nucleated RBC Nucleated RBC % (auto) Anion Gap Estim Creat Clear Calc Estimated GFR Random Glucose Calcium Ammonia 37 COVID-19 ([facility]) Negative COVID-19 Clin Com See Note Blood Type A Positive Antibody Screen NEGATIVE Crossmatch See Detail 02/07/22 02/07/22 07:00 07:00 MCV 92.7 MCH 29.5 MCHC 31.8 RDW 15.5 Plt Count 245 MPV 9.8 Absolute Nucleated RBC 0.000 Nucleated RBC % (auto) 0.0 Anion Gap 9 L Estim Creat Clear Calc 101.3 Estimated GFR > 60 Random Glucose 108 Calcium 8.1 L Ammonia COVID-19 ([facility]) COVID-19 Clin Com Blood Type Antibody Screen Crossmatch Assessment and Plan (1) Acute on chronic blood loss anemia: Status: Acute (2) Gross hematuria: Status: Acute (3) Acute lower GI bleeding: Status: Acute Plan a 56 years old male with PMH of cirrhosis, HTN, prostate CA among others who presented to the hospital with a complaint of hematuria and blood with stool. acute on chronic blood-loss anemia 2/2 GIB seems chronic blood loss from hemorrhoids associated with cirrhosis Hemoglobin 8.1 after 1 unit transfusion GI recommended no intervention needed at this point, treat for hemorrhoids Hemorrhoidal cream added Monitor H and H Hematuria improving Could be secondary to prostate, Bladder from cirrhosis INR 1.4 received vitamin K Pending urology evaluation Urine retention Has positive symptoms Place Barber catheter continue tamsulosin , to follow-up with urology as outpatient Liver cirrhosis with ascites Continue home medications of Lasix, propranolol and spironolactone to do paracentesis today Continue the rest of his home medications DVT PPX SCDs The patient will need to overnight hospital stay for evaluation of her blood loss and hematuria given high chance of recurrent bleeding and worsening anemia and decompensation. Quality Stroke Does the patient have a stroke diagnosis?: No VTE Prior VTE?: No VTE Risk Level:: Medical - moderate - high VTE Device Contraindication: N/A - Device Ordered VTE Drug Contraindication: Treatment Not Indicated
[2022-02-07 15:24] VITALS: BP 96/49; PULSE 63; RESP 16; TEMP 36.7; O2SAT 97
[2022-02-07] MEDS: Lidocaine HCl 1 % MPF 5 ML VIAL SUBCUT (15:24)
--- NOTE | 2022-02-07 15:34 | PC.NURSE ---
patient requesting to not take lactulose due to several large bowel movement over last 24hrs. patient informed that lactulose may still be necassary, despite bowel movements. patient informed that bedside commode can be made available to him for his convenience. patient is alert and oriented x4 at this time, RN will continue to assess for any confusion.
--- NOTE | 2022-02-07 16:03 | P.CNUR_ITS ---
History of Present Illness Consult details Consult date: 02/07/22 Narrative: Accompanied by his partner Underwent external beam radiation with hormone therapy for prostate cancer through [facility] completed in January 2021 Has not been seen by [facility] since completion Had noted some weakness of stream and difficulty with initiating urination in the days leading up to this episode Two episodes of hematuria Had presented to hospital concerned with hematuria and blood per rectum. Barber catheter placed for 400 cc residual Recommendation for Barber catheter and removal with [facility] They will call tomorrow for appointment. They understand he requires PSA follow-up. Review of Systems Constitutional: Constitutional: Reports as per HPI and Reports no additional constitutional complaints Cardiovascular: Cardiovascular: Reports as per HPI and Reports no additional cardiovascular complaints Respiratory: Respiratory: Reports as per HPI and Reports no additional respiratory complaints Gastrointestinal: Gastrointestinal: Reports as per HPI and Reports no additional gastrointestinal complaints Genitourinary: Genitourinary: Reports as per HPI Musculoskeletal: Musculoskeletal: Reports no additional musculoskeletal complaints and Reports as per HPI Neurologic: Reports system reviewed and no additional complaints, except as documented and Reports as per HPI [facility] Past Medical History Medical History (Updated 02/07/22 @ 16:06 by Zechariah Mayo MD) Abdominal ascites Acute metabolic encephalopathy Acute metabolic encephalopathy NATHANIEL (acute kidney injury) Alcoholic cirrhosis of liver with ascites Anxiety Depression Falls Hepatic cirrhosis Hyperlipidemia Hypertension Prostate cancer Social History Social History Household Members: Other Household Members Other:: fiancee Housing: [facility] Do you presently have visiting nurse or other home services: Yes Alcohol intake: former Patient Tobacco Use Status: Former Tobacco user Tobacco use type: Cigarette Use of substances other than those prescribed or required for medical reasons: No Advance Directives: Yes Advance Directives on File: Yes Advance Directives Date on File: 11/11/21 service: No Current occupational status: disabled Meds Allergies Allergy/AdvReac Type Severity Reaction Status Date / Time Fish Containing Products Allergy Severe THROAT Verified 12/06/21 15:50 SWELLING peanut [Peanut] Allergy Severe THROAT Verified 12/06/21 15:50 SWELLING Active Medications: Current Medications Acetaminophen (Acetaminophen 325 Mg Tablet) 650 mg PO Q6H PRN PRN Reason: Pain, Mild (Pain Scale 1-3) Fluoxetine HCl (Fluoxetine Hcl 20 Mg Capsule) 60 mg PO DAILY [facility] Last Admin: 02/07/22 07:20 Dose: 60 mg Documented by: Folic Acid (Folic Acid 1 Mg Tablet) 1 mg PO DAILY [facility] Last Admin: 02/07/22 07:19 Dose: 1 mg Documented by: Furosemide (Furosemide 20 Mg Tablet) 20 mg PO DAILY [facility]; Protocol Last Admin: 02/07/22 07:19 Dose: 20 mg Documented by: Gabapentin (Gabapentin 400 Mg Capsule) 400 mg PO TID [facility] Last Admin: 02/07/22 15:31 Dose: 400 mg Documented by: Hydrocortisone (Hydrocortisone 2.5 % Rectal Cr 30 Gm Tube) 1 appl [place] BID [facility] Last Admin: 02/07/22 12:46 Dose: Not Given Documented by: Lactulose (Lactulose 20 Gm/30 Ml Solution) 20 gm PO TID [facility] Last Admin: 02/07/22 15:29 Dose: Not Given Documented by: Ondansetron HCl (Ondansetron Hcl 4 Mg/2 Ml Vial) 4 mg IVPUSH Q8H PRN PRN Reason: Nausea and Vomiting Pharmacy Consult (Consult Rx Perform Med Rec) 1 each MISCELLANE ONCE PRN PRN Reason: Consult order Propranolol HCl (Propranolol Hcl 10 Mg Tablet) 10 mg PO TID [facility]; Protocol Last Admin: 02/07/22 15:29 Dose: Not Given Documented by: Risperidone (Risperidone 0.5 Mg Tablet) 0.5 mg PO BEDTIME [facility] Last Admin: 02/06/22 23:09 Dose: 0.5 mg Documented by: Sodium Chloride (0.9 % Sodium Chloride Flush 3 Ml Syringe) [facility] Admin: 02/07/22 15:59 Dose: Not Given Documented by: Spironolactone (Spironolactone 25 Mg Tablet) 50 mg PO DAILY [facility]; Protocol Last Admin: 02/07/22 07:20 Dose: 50 mg Documented by: Tamsulosin HCl (Tamsulosin Hcl 0.4 Mg Capsule) 0.4 mg PO DAILY [facility] Last Admin: 02/07/22 07:20 Dose: 0.4 mg Documented by: Thiamine HCl (Thiamine Hcl 100 Mg Tablet) 100 mg PO DAILY [facility] Last Admin: 02/07/22 07:20 Dose: 100 mg Documented by: Topiramate (Topiramate 100 Mg Tablet) 200 mg PO BID [facility] Last Admin: 02/07/22 07:19 Dose: 200 mg Documented by: Zolpidem Tartrate (Zolpidem Tartrate 5 Mg Tablet) 10 mg PO BEDTIME [facility] Last Admin: 02/06/22 23:08 Dose: 10 mg Documented by: Home Medications Medication Instructions Recorded Confirmed Last Taken Type lactulose 10 gram/15 mL oral 30 ml PO TID 11/11/21 02/06/22 02/06/22 History solution (Constulose) pantoprazole 40 mg tablet,delayed 1 tab PO DAILY 11/11/21 02/06/22 02/06/22 History release propranolol 10 mg tablet 1 tab PO TID 11/11/21 02/06/22 02/06/22 History risperidone 0.5 mg tablet 1 tab PO BEDTIME 11/11/21 02/06/22 02/05/22 History spironolactone 25 mg tablet 2 tab PO DAILY 11/11/21 02/06/22 02/06/22 History topiramate 200 mg tablet (Topamax) 1 tab PO BID 11/11/21 02/06/22 02/06/22 History zolpidem 10 mg tablet (Ambien) 1 tab PO BEDTIME 11/11/21 02/06/22 02/05/22 History gabapentin 400 mg capsule 1 cap PO TID 11/20/21 02/06/22 02/06/22 History (Neurontin) amoxicillin 875 mg tablet 1 tab PO BID 02/06/22 02/06/22 02/06/22 History fluoxetine 20 mg capsule (Prozac) 3 cap PO DAILY 02/06/22 02/06/22 02/06/22 History furosemide 20 mg tablet 1 tab PO DAILY 02/06/22 02/06/22 02/06/22 History Physical Exam Vital Signs: Vital Signs: Last Vital Signs Temp 98.0 F 02/07/22 15:24 Pulse 63 02/07/22 15:24 Resp 16 02/07/22 15:24 BP 96/49 L 02/07/22 15:24 Pulse Ox 97 02/07/22 15:24 BMI result Body Mass Index 26.1 Const: General: cooperative, healthy appearing, comfortable and no acute distress Orientation/consciousness: patient oriented x3 HEENT: Face and sinus: Yes normal facial exam Mouth: moist mucous membranes Neck: Neck: Yes normal visual inspection, Yes full ROM and Yes trachea midline Chest: Chest palpation & inspection: normal inspection of the chest Resp: Effort & Inspection: normal respiratory effort, able to speak in complete sentences and no respiratory distress GI: Inspection: Yes normal to inspection Back/Spine/Pelvis: Cervical Spine: normal cervical lordosis Thoracic/Lumbar Spine: thoracic and lumbar spine normal to inspection Skin: General skin exam: no rashes or lesions noted Neuro: General: patient oriented x3, tone normal and moves all extremities Extrem: General: Yes normal to inspection and Yes capillary refill normal Results Labs Result diagrams: 02/07/22 07:00 02/07/22 07:00 Labs: Abnormal lab results 02/06/22 02/07/22 02/07/22 Range/Units 15:57 07:00 07:00 RBC 2.75 L (4.60-5.80) X10*6/uL Hgb 8.1 L (14.0-18.0) g/dl Hct 25.5 L (42.0-52.0) % Anion Gap 9 L (12-20) BUN 8 L (9-16) mg/dL Calcium 8.1 L (8.4-10.2) mg/dL Crossmatch See Detail Short CBC 02/07/22 Range/Units 07:00 WBC 9.9 (4.8-10.8) X10*3/uL Hgb 8.1 L (14.0-18.0) g/dl Hct 25.5 L (42.0-52.0) % Plt Count 245 (160-400) X10*3/uL BMP 02/07/22 07:00 Sodium 136 Potassium 3.8 Chloride 107 Carbon Dioxide 24 BUN 8 L Creatinine 0.84 Calcium 8.1 L Urine 02/06/22 Range/Units 12:23 Urine Color YELLOW Urine Appearance CLEAR Urine pH 6.0 (5.0-8.0) Ur Specific [place] <= 1.005 (1.005-1.025) Urine Protein NEG (NEG-TRACE) MG/DL Urine Glucose (UA) NEG (NEG) MG/DL All other labs normal. Assessment and Plan (1) Prostate cancer: Status: Acute (2) Gross hematuria: Status: Acute Plan Barber catheter clear Catheter to remain for 5 days Procedures Date of Service Date of Service: 02/07/22
--- NOTE | 2022-02-07 16:23 | PM.DS ---
DS: Providers Provider Date of Service: 02/07/22 Date of admission: 02/06/22 18:05 Primary care physician: Arben German MD Consults: 02/06/22 18:06 Consult to Urology Routine Consulting Provider: Zechariah Mayo Reason for consultation: history of prostate cancer, cirrhosis with retention and hematuria 02/06/22 18:08 Consult to Gastroenterology Routine Consulting Provider: Lee White Reason for consultation: symptomatic anemia, positive occult blood, cirrhosis DS: Diagnosis Discharge Diagnosis (1) Prostate cancer: Status: Acute (2) Gross hematuria: Status: Acute DS: Summary Hospital Course Hospital Course: Admission note HPI ?a 56 years old male with PMH of cirrhosis, HTN, prostate CA among others who presented to the hospital with a complaint of? hematuria and blood with stool.? The patient reports that he woke up this morning and went to the bathroom and he? found a blood on the polyps he wear.? He passed a urine came out as bright red blood as well on 2 occasions but later in the emergency it came out as clear urine.? He reports feeling more weak and short of breath upon ambulation for the last few weeks? with no reported chest pain, palpitation, change in bowel habit, fever, chills, abdominal pain.? He also report passing bloody stool as he is aware of hemorrhoids diagnosis ? And he is supposed to follow up with Gastroenterology for a colonoscopy later this year. In the emergency the patient was found to have a drop in his hemoglobin to 7.9. ? The patient reported? hesitancy and urgency while passing the urine.? Bladder scan found more than 400 cc of urine. Admitted for further evaluation and treatment. Hospital course The patient was admitted to the hospital for evaluation of hematuria that believed to be secondary to prostate. No started to have urine retention as a Barber catheter was placed and overnight his urine cleared up. He was started at tamsulosin at the same time and evaluated by urologist who recommended outpatient follow-up and to keep the Barber in for the next 2 weeks. He also reported recurrent episodes of blood with the stool. Noted to have a minor drop of his hemoglobin but more persistent over the last few months. Found to have hemorrhoids that was evaluated by employee service officer who recommended treatment with hemorrhoid cream for the time being and to follow up with GI as outpatient. He received a unit of blood with fair response as hemoglobin remained around 8.1. Ascites fluid were removed of 3.5 L with relief for the patient. The patient symptoms significantly improved as his urine cleared up, GI recommended for Local treatment and ascites were removed almost 3.5 L. He S to be discharged as he felt much better and he has an appointment next morning. He looks stable enough to be discharged and advised to come back to the hospital for any recurrence of the bleeding. start tamsulosin for urinary retention to follow-up with your urologist in 2 weeks use Protozone HC cream twice daily for hemorrhoids Time Spent with Patient Time attestation: Total time spent providing and/or coordinating discharge services: Discharge coordination time: Greater than 30 minutes Quality: Safe Use of Opioids Does Pt have an Active Cancer Diagnosis on the Problem List?: No Quality: Stroke Does the patient have a stroke diagnosis?: No Physical Exam Vital Signs: Vital Signs: Last Vital Signs Temp 98.0 F 02/07/22 15:24 Pulse 63 02/07/22 15:24 Resp 16 02/07/22 15:24 BP 96/49 L 02/07/22 15:24 Pulse Ox 97 02/07/22 15:24 BMI result Body Mass Index 26.1 Const: Other: Constitutional : Alert, oriented, not in distress Neck : Normal inspection, Supple Cardiovascular : RRR, no JVP, no lower extremity edema Respiratory : fair bilateral air entry, no crackles, wheezes or rhonchi Gastrointestinal: soft, lax, no tenderness, small amount of ascites after paracentesis Skin : Warm, Dry, Barber catheter in place cough with clear urine Neurological : Alert & oriented x3, No focal deficit , CN 2-12 within normal DS: Data Data Completed and Pending Completed studies during hospitalization [Text1]: Procedures Drainage of Peritoneal Cavity, Percutaneous Approach (12/06/21) Repair Scalp Skin, External Approach (11/20/21) Labs on day of discharge: Laboratory Results - last 24 hr 02/06/22 02/06/22 02/07/22 15:57 15:57 07:00 WBC 9.9 RBC 2.75 L Hgb 8.1 L Hct 25.5 L MCV 92.7 MCH 29.5 MCHC 31.8 RDW 15.5 Plt Count 245 MPV 9.8 Absolute Nucleated RBC 0.000 Nucleated RBC % (auto) 0.0 Sodium Potassium Chloride Carbon Dioxide Anion Gap BUN Creatinine Estim Creat Clear Calc Estimated GFR Random Glucose Calcium COVID-19 ([facility]) Negative COVID-19 Clin Com See Note Blood Type A Positive Antibody Screen NEGATIVE Crossmatch See Detail 02/07/22 07:00 WBC RBC Hgb Hct MCV MCH MCHC RDW Plt Count MPV Absolute Nucleated RBC Nucleated RBC % (auto) Sodium 136 Potassium 3.8 Chloride 107 Carbon Dioxide 24 Anion Gap 9 L BUN 8 L Creatinine 0.84 Estim Creat Clear Calc 101.3 Estimated GFR > 60 Random Glucose 108 Calcium 8.1 L COVID-19 ([facility]) COVID-19 Clin Com Blood Type Antibody Screen Crossmatch Discharge Plan Discharge Patient Disposition: Home, Self-Care Discharge Diagnosis: hematuria Red blood per rectum Ascites Referrals: Arben German MD [Primary Care Provider] - 1 Week Discharge Medications: New tamsulosin 0.4 mg Capsule 0.4 mg PO DAILY 30 Days Qty: 30 0RF hydrocortisone [Proctozone-HC] 2.5 % Cream With Perineal Applicator 1 appl [place] BID 30 Days 0RF Continued spironolactone 25 mg tablet 2 tab PO DAILY 0RF propranolol 10 mg tablet 1 tab PO TID 0RF topiramate [Topamax] 200 mg tablet 1 tab PO BID 0RF zolpidem [Ambien] 10 mg tablet 1 tab PO BEDTIME 0RF risperidone 0.5 mg tablet 1 tab PO BEDTIME 0RF pantoprazole 40 mg tablet,delayed release (DR/EC) 1 tab PO DAILY 0RF lactulose [Constulose] 10 gram/15 mL solution 30 ml PO TID 0RF thiamine HCl (vitamin B1) 100 mg tablet 100 mg PO DAILY Qty: 30 0RF Label Comments: needs refill folic acid 1 mg tablet 1 mg PO DAILY Qty: 30 0RF Label Comments: needs refill gabapentin [Neurontin] 400 mg capsule 1 cap PO TID 0RF amoxicillin 875 mg tablet 1 tab PO BID 0RF furosemide 20 mg tablet 1 tab PO DAILY 0RF fluoxetine [Prozac] 20 mg capsule 3 cap PO DAILY 0RF Discharge Orders: Discharge Order (Routine); Ordered 02/07/22 Ordered By: Hector Handley Diet: low salt diet Activity on Discharge: As tolerated Stand Alone Forms: Patient Portal Discharge page Care Plan Goals: Read below Health Concerns: Read below Plan of Treatment: Read below Assessment: you were admitted to the hospital for evaluation of blood in the urine and passing blood with stool. Found to have hemorrhoids as employee service officer evaluated you and recommended for Local treatment with cream. You were noticed to have urine retention as a Barber catheter was placed and you were able to pass clear urine with no more blood. Evaluated by urologist who recommended starting tamsulosin and to follow-up as outpatient while keeping the catheter in. Your received a unit of blood with fair response. start tamsulosin for urinary retention to follow-up with your urologist in 2 weeks use Protozone HC cream twice daily for hemorrhoids
== END 2022-02-07 17:25 | disposition home or self-care (01) | DRG 433 ==
LOC: HO.ED 14:35 → HO.EDOVER 18:12 → HO.S3 02-07 17:24
PROVIDERS: Physician Assistant; Radiology Diagnostic Radiology; Admitting Provider Student in an Organized Health Care Education/Training Program; Emergency Provider Emergency Medicine; PCP Internal Medicine; Visit Provider Student in an Organized Health Care Education/Training Program
PROC: (CPT 49083; principal; 2022-02-07 15:00)
DX: K70.31 Alcoholic cirrhosis of liver with ascites (principal); E87.1 Hypo-osmolality and hyponatremia; R31.0 Gross hematuria; C61 Malignant neoplasm of prostate; R33.9 Retention of urine, unspecified; Z20.822 Contact with and (suspected) exposure to COVID-19; F41.9 Anxiety disorder, unspecified; K64.8 Other hemorrhoids; Z92.3 Personal history of irradiation; Z86.010 Personal history of colon polyps; Z91.013 Allergy to seafood; Z87.891 Personal history of nicotine dependence; Z79.899 Other long term (current) drug therapy
CPT/HCPCS: 36430; 49083; 36415; 71045; 80048; 80076; 81001; 82140; 83690; 85025; 85027; 85610; 86850; 86900; 86901; 86923; 87635; 99218; 99285; P9016

== ENCOUNTER 2022-03-02 09:18 | Inpatient (IN) | payer MEDICARE, SELFPAY ==
--- NOTE | ~2022-03-02 | US_ITS ---
EXAMINATION: ULTRASOUND-GUIDED PARACENTESIS. CLINICAL INFORMATION: Ascites. COMPARISON: Ultrasound-guided paracentesis 02/07/2022 TECHNIQUE: Following explaining ultrasound-guided paracentesis procedure, benefits and risk, a written consent was obtained from the patient. Preliminary ultrasound imaging was obtained and optimal site was selected along the left lower quadrant and marked. Marked site was cleaned and draped in usual sterile manner. 1% lidocaine was injected puncture site. Through a small skin incision a 5 [employer] catheter was advanced into the peritoneal space. After observing fluid return, catheter was connected to vacuum bottle via connecting cannula. After obtaining all fluid and observing normal fluid return, catheter was withdrawn and complete hemostasis achieved at puncture site. Sterile Band-Aid applied postprocedure. Patient tolerated procedure extremely well. FINDINGS: On preliminary ultrasound imaging there is a moderate ascites seen. Approximately 1.7 L of clear yellowish fluid was drained from left lower quadrant. US/US paracentesis abd w/image IMPRESSION: Successful ultrasound-guided paracentesis performed with approximately 1.7 L of clear yellowish fluid was drained from left lower quadrant.
[2022-03-02 09:27] VITALS: BP 112/39; PULSE 61; RESP 16; TEMP 36.8; O2SAT 96; BMI 25.1
[2022-03-02 10:50] LABS: MANUAL DIFF FLAG NO
[2022-03-02 10:52] LABS: Basophils Percent Auto 0.4 % (0-2); Eosinophils Absolute Auto 0.3 X10*3/uL (0.0-0.4); Eosinophils Percent Auto 2.9 % (0-4); Hematocrit 28.1 % (42.0-52.0); Imm Gran Abs Auto 0.03 X10*3/uL (0.00-0.03); Imm Gran Pct Auto 0.3 % (0.0-0.4); Lymphocytes Percent Auto 21.3 % (20-40); Mean Corpuscular Volume 90.6 fL (80.0-98.0); Mean Platelet Volume 9.5 fL (9.4-12.4); Monocytes Absolute Auto 0.6 X10*3/uL (0.1-1.2); Monocytes Percent Auto 6.5 % (2-11); Neutrophils Absolute Auto 6.6 x10*3/uL (2.0-8.3); Neutrophils Percent Auto 68.6 % (45-73); Platelet Count 262 X10*3/uL (160-400); Red Cell Distribution Width 15.1 % (11.0-16.0); White Blood Count 9.6 X10*3/uL (4.8-10.8)
[2022-03-02 11:08] LABS: Alanine Aminotransferase 12 U/L (0-40); Albumin Level 2.6 g/dL (3.5-5.0); Alkaline Phosphatase 293 U/L (39-117); Anion Gap 10 (12-20); Aspartate Amino Transferase 31 U/L (5-37); Bilirubin Total 1.8 mg/dL (0.0-1.0); Blood Urea Nitrogen 8 mg/dL (9-16); Calcium 8.6 mg/dL (8.4-10.2); Carbon Dioxide 22 mmol/L (22-29); Chloride 106 mmol/L (96-108); Creatinine Clr Calc Pharmacy 93.7; Estimated Glomerular Filt Rate > 60; Glucose Random 114 mg/dL (60-115); Potassium 3.7 mmol/L (3.3-5.1); Sodium 134 mmol/L (135-145); Total Protein 7.4 g/dL (6.5-8.0)
--- NOTE | 2022-03-02 13:39 | ED_ITS ---
HPI - General Adult General Chief complaint: General Medical Stated complaint: rectal bleeding Time Seen by Provider: 03/02/22 13:30 Source: patient Mode of arrival: ambulatory Limitations: no limitations History of Present Illness HPI narrative: this is 56 years old male with a history of alcoholic liver disease, presented to the emergency department complaining of rectal bleeding, describes the bleeding as bright red. Denies any hematemesis, he feels lightheaded Onset (ago): day(s) (1) Location: lower extremity (rectal) Radiation: non-radiation Severity: moderate Relieving factors: none Exacerbating factors: none Associated symptoms: denies other symptoms Related Data Home Medications Medication Instructions Recorded Confirmed lactulose 10 gram/15 mL oral 30 ml PO TID 11/11/21 03/02/22 solution (Constulose) pantoprazole 40 mg tablet,delayed 1 tab PO DAILY 11/11/21 03/02/22 release propranolol 10 mg tablet 1 tab PO TID 11/11/21 03/02/22 risperidone 0.5 mg tablet 1 tab PO BEDTIME 11/11/21 03/02/22 spironolactone 25 mg tablet 2 tab PO DAILY 11/11/21 03/02/22 topiramate 200 mg tablet (Topamax) 1 tab PO BID 11/11/21 03/02/22 zolpidem 10 mg tablet (Ambien) 1 tab PO BEDTIME 11/11/21 03/02/22 gabapentin 400 mg capsule 1 cap PO BID 11/20/21 03/02/22 (Neurontin) fluoxetine 20 mg capsule (Prozac) 3 cap PO DAILY 02/06/22 03/02/22 furosemide 20 mg tablet 1 tab PO DAILY 02/06/22 03/02/22 Previous Rx's Medication Instructions Recorded tamsulosin 0.4 mg capsule 0.4 mg PO DAILY 30 Days #30 cap 02/07/22 Allergies Allergy/AdvReac Type Severity Reaction Status Date / Time Fish Containing Products Allergy Severe THROAT Verified 12/06/21 15:50 SWELLING peanut [Peanut] Allergy Severe THROAT Verified 12/06/21 15:50 SWELLING Review of Systems Review of Systems: Yes all other systems are reviewed and are negative Constitutional: Constitutional: Reports no additional constitutional complaints Eyes: Eyes: Reports no additional eye complaints Cardiovascular: Cardiovascular: Reports no additional cardiovascular complain ts Respiratory: Respiratory: Reports no additional respiratory complaints Gastrointestinal: Gastrointestinal: Reports hematochezia and Denies hematemesis Musculoskeletal: Musculoskeletal: Reports no additional musculoskeletal complaints Neurologic: Reports system reviewed and no additional complaints, except as documented [facility] Past Medical History Medical History (Updated 03/02/22 @ 15:50 by Neel Ch MD) Acute metabolic encephalopathy NATHANIEL (acute kidney injury) Alcoholic cirrhosis of liver with ascites Anxiety Depression Falls Hyperlipidemia Hypertension Hyponatremia Prostate cancer Social History Social History Household Members: Other Household Members Other:: fiancee Housing: Condominium Do you presently have visiting nurse or other home services: Yes Alcohol intake: former Patient Tobacco Use Status: Former Tobacco user Tobacco use type: Cigarette Use of substances other than those prescribed or required for medical reasons: No Advance Directives: Yes Advance Directives Information Provided: No Advance Directives on File: No Advance Directives Date on File: 11/11/21 service: No Current occupational status: disabled Physical Exam ED Vital Signs: Vital Signs - 24 hr 03/02/22 09:27 03/02/22 13:50 Temperature 98.3 F 97.7 F Pulse Rate 61 52 Respiratory Rate 16 17 Blood Pressure 112/39 L 108/31 L Pulse Oximetry 96 100 BMI result Body Mass Index 25.1 Const General: cooperative Orientation/consciousness: patient oriented x3 HENMT Head: Yes normal to inspection Face and sinus: Yes normal facial exam Mouth: Normal oral and palatal mucosa present Neck Neck: Yes normal visual inspection and Yes full ROM Chest Chest palpation & inspection: normal inspection of the chest Resp Effort & Inspection: normal respiratory effort Auscultation: clear to auscultation bilaterally Cardio Jugular venous distension: no JVD Rate: regular rate Rhythm: regular rhythm GI Inspection: Yes normal to inspection Palpation (GI): Soft to palpation, not firm, nontender and Other GI palpation findings present (Ascites present) Rectal Exam - Male: Yes normal sphincter tone, Yes heme positive stool and Yes other (heme positive blood) Skin General skin exam: elasticity normal and turgor normal Neuro General: patient oriented x3 Course Course Course Narrative: pt was seen by GI Dr Roldan in the ED he will do a colonoscopy in a.m. Medical Decision Making Lab Data Result diagrams: 03/02/22 10:43 03/02/22 10:43 Labs: Lab Results 03/02/22 03/02/22 03/02/22 Range/Units 10:43 10:43 13:46 WBC 9.6 (4.8-10.8) X10*3/uL RBC 3.10 L (4.60-5.80) X10*6/uL Hgb 9.0 L (14.0-18.0) g/dl Hct 28.1 L (42.0-52.0) % MCV 90.6 (80.0-98.0) fL MCH 29.0 (27.0-33.0) pg MCHC 32.0 (31.0-36.0) g/dl RDW 15.1 (11.0-16.0) % Plt Count 262 (160-400) X10*3/uL MPV 9.5 (9.4-12.4) fL Immature Gran % (Auto) 0.3 (0.0-0.4) % Neut % (Auto) 68.6 (45-73) % Lymph % (Auto) 21.3 (20-40) % [place] % (Auto) 6.5 (2-11) % Eos % (Auto) 2.9 (0-4) % Baso % (Auto) 0.4 (0-2) % Lymph # (Auto) 2.0 (1.2-4.9) X10*3/uL [place] # (Auto) 0.6 (0.1-1.2) X10*3/uL Eos # (Auto) 0.3 (0.0-0.4) X10*3/uL Baso # (Auto) 0.0 (0.0-0.2) X10*3/uL Abs Immat Gran (auto) 0.03 (0.00-0.03) X10*3/uL Absolute Neuts (auto) 6.6 (2.0-8.3) x10*3/uL Absolute Nucleated RBC 0.000 (0.0-0.012) X10*3/uL Nucleated RBC % (auto) 0.0 (0.0-0.2) /100WBC PT 13.8 H (9.9-13.0) SEC INR 1.2 H (0.9-1.1) APTT 43.3 H (24.1-38.0) SEC Sodium 134 L (135-145) mmol/L Potassium 3.7 (3.3-5.1) mmol/L Chloride 106 (96-108) mmol/L Carbon Dioxide 22 (22-29) mmol/L Anion Gap 10 L (12-20) BUN 8 L (9-16) mg/dL Creatinine 0.88 (0.5-1.4) mg/dL Estim Creat Clear Calc 93.7 Estimated GFR > 60 Random Glucose 114 (60-115) mg/dL Calcium 8.6 D (8.4-10.2) mg/dL Iron 31 L (45-160) mcg/dL TIBC 193 L (228-428) mcg/dL % Saturation 16 (15-50) % Unsat Iron Binding 162 ug/dL Total Bilirubin 1.8 H (0.0-1.0) mg/dL AST 31 (5-37) U/L ALT 12 (0-40) U/L Alkaline Phosphatase 293 H D (39-117) U/L Total Protein 7.4 (6.5-8.0) g/dL Albumin 2.6 L (3.5-5.0) g/dL Stool Occult Blood (NEGATIVE) 03/02/22 Range/Units 13:47 WBC (4.8-10.8) X10*3/uL RBC (4.60-5.80) X10*6/uL Hgb (14.0-18.0) g/dl Hct (42.0-52.0) % MCV (80.0-98.0) fL MCH (27.0-33.0) pg MCHC (31.0-36.0) g/dl RDW (11.0-16.0) % Plt Count (160-400) X10*3/uL MPV (9.4-12.4) fL Immature Gran % (Auto) (0.0-0.4) % Neut % (Auto) (45-73) % Lymph % (Auto) (20-40) % [place] % (Auto) (2-11) % Eos % (Auto) (0-4) % Baso % (Auto) (0-2) % Lymph # (Auto) (1.2-4.9) X10*3/uL [place] # (Auto) (0.1-1.2) X10*3/uL Eos # (Auto) (0.0-0.4) X10*3/uL Baso # (Auto) (0.0-0.2) X10*3/uL Abs Immat Gran (auto) (0.00-0.03) X10*3/uL Absolute Neuts (auto) (2.0-8.3) x10*3/uL Absolute Nucleated RBC (0.0-0.012) X10*3/uL Nucleated RBC % (auto) (0.0-0.2) /100WBC PT (9.9-13.0) SEC INR (0.9-1.1) APTT (24.1-38.0) SEC Sodium (135-145) mmol/L Potassium (3.3-5.1) mmol/L Chloride (96-108) mmol/L Carbon Dioxide (22-29) mmol/L Anion Gap (12-20) BUN (9-16) mg/dL Creatinine (0.5-1.4) mg/dL Estim Creat Clear Calc Estimated GFR Random Glucose (60-115) mg/dL Calcium (8.4-10.2) mg/dL Iron (45-160) mcg/dL TIBC (228-428) mcg/dL % Saturation (15-50) % Unsat Iron Binding ug/dL Total Bilirubin (0.0-1.0) mg/dL AST (5-37) U/L ALT (0-40) U/L Alkaline Phosphatase (39-117) U/L Total Protein (6.5-8.0) g/dL Albumin (3.5-5.0) g/dL Stool Occult Blood POSITIVE (NEGATIVE) Discharge Plan Discharge Clinical Impression: GI bleed, Ascites Patient Disposition: Admitted As Inpatient
[2022-03-02 13:50] VITALS: BP 108/31; PULSE 52; RESP 17; TEMP 36.5; O2SAT 100
[2022-03-02 13:59] LABS: OBS Int Ctl Valid YES; OBS1 POSITIVE (NEGATIVE)
[2022-03-02 14:06] LABS: INTERNATIONAL NORM RATIO 1.2 (0.9-1.1); Prothrombin Time 13.8 SEC (9.9-13.0)
[2022-03-02 14:09] LABS: Partial Thromboplastin Time 43.3 SEC (24.1-38.0)
--- NOTE | 2022-03-02 14:33 | PM.IMHP ---
History of Present Illness Date of Service: 03/02/22 Chief Complaint: rectal bleeding 56 year old man presenting with bright red blood per rectum with lightheadedness rectal bleeding. This has been ongoing for more than several weeks. He was discharged from [facility] on 02/07/2022 and at that time treated for hematuria and bloody stool. Today he reports that he has been having bright red blood per rectum with blood clots, sometimes mixed with stool sometimes just blood not necessarily happening every day but maybe every other day or every 2 days. He denies fever, chills, nausea, vomiting, abdominal pain, chest pain, shortness of breath. He did report some lightheadedness and thought maybe that his blood counts were low. He reports that he stopped drinking about 7 months ago he does have a history of hemorrhoids that may also have some involvement in this bright red blood. In the ER, his H&H was noted to be HH 9.0/28.1, INR 1.2, bili 1.8. . Hemodynamically stable. Paracentesis ordered in the ER for ascites, last paracentesis was 1 week ago. He was given a dose of IV Pepcid and bowel prep. He will be admitted for further management and treatment of acute bright red blood per rectum. Review of Systems Review of Systems: Denies any recent fever chills or decrease in appetite respiratory denies any shortness of breath coverage production cardiovascular Denies chest pain gastrointestinal See HPI genitourinary denies any dysuria frequency or hematuria musculoskeletal denies any joint pain or swelling neuropsych denies any weakness or seizures all other systems reviewed are negative [facility] Medical History (Updated 03/02/22 @ 15:50 by Neel Ch MD) Acute metabolic encephalopathy NATHANIEL (acute kidney injury) Alcoholic cirrhosis of liver with ascites Anxiety Depression Falls Hyperlipidemia Hypertension Hyponatremia Prostate cancer Pertinent family history: chronic liver disease Social History Household Members: Other Household Members Other:: fiancee Housing: Condominium Do you presently have visiting nurse or other home services: Yes Alcohol intake: former Patient Tobacco Use Status: Former Tobacco user Tobacco use type: Cigarette Use of substances other than those prescribed or required for medical reasons: No Advance Directives: Yes Advance Directives Information Provided: No Advance Directives on File: No Advance Directives Date on File: 11/11/21 service: No Current occupational status: disabled Meds Allergies Allergy/AdvReac Type Severity Reaction Status Date / Time Fish Containing Products Allergy Severe THROAT Verified 12/06/21 15:50 SWELLING peanut [Peanut] Allergy Severe THROAT Verified 12/06/21 15:50 SWELLING Home Medications Medication Instructions Recorded Confirmed Last Taken Type lactulose 10 gram/15 mL oral 30 ml PO TID 11/11/21 03/02/22 02/28/22 History solution (Constulose) pantoprazole 40 mg tablet,delayed 1 tab PO DAILY 11/11/21 03/02/22 03/02/22 History release propranolol 10 mg tablet 1 tab PO TID 11/11/21 03/02/22 03/02/22 History risperidone 0.5 mg tablet 1 tab PO BEDTIME 11/11/21 03/02/22 03/02/22 History spironolactone 25 mg tablet 2 tab PO DAILY 11/11/21 03/02/22 03/01/22 History topiramate 200 mg tablet (Topamax) 1 tab PO BID 11/11/21 03/02/22 03/02/22 History zolpidem 10 mg tablet (Ambien) 1 tab PO BEDTIME 11/11/21 03/02/22 03/01/22 History gabapentin 400 mg capsule 1 cap PO BID 11/20/21 03/02/22 03/02/22 History (Neurontin) fluoxetine 20 mg capsule (Prozac) 3 cap PO DAILY 02/06/22 03/02/22 03/02/22 History furosemide 20 mg tablet 1 tab PO DAILY 02/06/22 03/02/22 03/01/22 History Physical Exam Vital Signs and Narrative: Vital Signs: Last Vital Signs Temp 97.7 F 03/02/22 13:50 Pulse 52 03/02/22 13:50 Resp 17 03/02/22 13:50 BP 108/31 L 03/02/22 13:50 Pulse Ox 100 03/02/22 13:50 BMI result Body Mass Index 25.1 Appearing in no acute distress head is normocephalic atraumatic eyes pupils are PERRLA sclera is anicteric mouth throat mucous membranes are intact and moist neck is supple no lymphadenopathy, no JVD noted lung sounds are clear to auscultation heart regular rate rhythm, clear S1, S2 positive bowel sounds, abdomen is soft, nontender, large round abdomen neuro patient is alert x3, no focal deficits Results Labs CBC and Chem 7: 03/02/22 10:43 03/02/22 10:43 Labs: Laboratory Results - last 24 hr 03/02/22 03/02/22 03/02/22 10:43 10:43 13:46 MCV 90.6 MCH 29.0 MCHC 32.0 RDW 15.1 Plt Count 262 MPV 9.5 Immature Gran % (Auto) 0.3 Neut % (Auto) 68.6 Lymph % (Auto) 21.3 [place] % (Auto) 6.5 Eos % (Auto) 2.9 Baso % (Auto) 0.4 Lymph # (Auto) 2.0 [place] # (Auto) 0.6 Eos # (Auto) 0.3 Baso # (Auto) 0.0 Abs Immat Gran (auto) 0.03 Absolute Neuts (auto) 6.6 Absolute Nucleated RBC 0.000 Nucleated RBC % (auto) 0.0 PT 13.8 H INR 1.2 H APTT 43.3 H Anion Gap 10 L Estim Creat Clear Calc 93.7 Estimated GFR > 60 Random Glucose 114 Calcium 8.6 D Total Bilirubin 1.8 H AST 31 ALT 12 Alkaline Phosphatase 293 H D Total Protein 7.4 Albumin 2.6 L Stool Occult Blood 03/02/22 13:47 MCV MCH MCHC RDW Plt Count MPV Immature Gran % (Auto) Neut % (Auto) Lymph % (Auto) [place] % (Auto) Eos % (Auto) Baso % (Auto) Lymph # (Auto) [place] # (Auto) Eos # (Auto) Baso # (Auto) Abs Immat Gran (auto) Absolute Neuts (auto) Absolute Nucleated RBC Nucleated RBC % (auto) PT INR APTT Anion Gap Estim Creat Clear Calc Estimated GFR Random Glucose Calcium Total Bilirubin AST ALT Alkaline Phosphatase Total Protein Albumin Stool Occult Blood POSITIVE Assessment and Plan (1) Ascites: Status: Acute Plan 56 year old man admitted with rectal bleeding with blood clots over the last several weeks with history alcoholic liver cirrhosis, alcohol cessation 7 months ago GI bleed, acute blood loss anemia. History of hemorrhoids, no recent colonoscopy GI consult for colonoscopy tomorrow NPO after midnight Recheck CBC this evening and transfuse as necessary follow CBC Hypotension likely from GI bleed follow BP closely Hold Lasix, propranolol and spironolactone for now Alcoholic liver cirrhosis with ascites, chronic stop drinking 7 months ago, unfortunately still requires paracentesis, last 1 week ago paracentesis ordered and pending On Lasix, propranolol and spironolactone on hold for now due to low blood pressures Mental health continue home medications History of urinary retention Continue tamsulosin DVT prophylaxis with scd boots d/t GI bleed Attending Dr. Love Full code Patient likely requires 2 midnights in the hospital for treatment of acute blood loss anemia secondary to GI bleed requiring colonoscopy and inpatient monitoring of CBC Quality Stroke Does the patient have a stroke diagnosis?: No VTE Prior VTE?: No VTE Risk Level:: Medical - moderate - high VTE Device Contraindication: N/A - Device Ordered VTE Drug Contraindication: Treatment Not Indicated
[2022-03-02 14:56] LABS: Iron 31 mcg/dL (45-160); Percent Iron Saturation 16 % (15-50); Total Iron Binding Capacity 193 mcg/dL (228-428); Unsaturated Iron Binding 162 ug/dL
--- NOTE | 2022-03-02 15:12 | MHC.SHP ---
Pre-Procedural Eval Section A Date of Service: 03/02/22 The patient is an INPATIENT: Yes Changes since office visit: No Cold of Flu in the past 2 weeks, No New Medical Problems, No Changes in Medication and No Patient answered all questions The History & Physical has been completed within 30 days and I have reviewed it.: Yes Section B Chief Complaint: rectal bleeding Allergies: Allergies Allergy/AdvReac Type Severity Reaction Status Date / Time Fish Containing Products Allergy Severe THROAT Verified 12/06/21 15:50 SWELLING peanut [Peanut] Allergy Severe THROAT Verified 12/06/21 15:50 SWELLING Plan I have reviewed the history and physical and performed a pertinent physical examination on my patient. No changes have occurred unless specified.
--- NOTE | 2022-03-02 15:12 | PM.EVENT ---
Event Note Date of Service: 03/02/22 Event Note: GI consult dictated LGI bleeding discussed colonoscopy with pt who iunderstands risks and benefits and agrees to proceed. scheduled for 03/03 pending OR schedule.
--- NOTE | 2022-03-02 15:16 | PHA.MEDREC ---
Pharmacy Consult ? Medication Reconciliation Pharmacy has completed the medication reconciliation.
[2022-03-02 15:21] VITALS: BP 116/32; PULSE 54; RESP 16; TEMP 36.5; O2SAT 99
[2022-03-02] MEDS: 0.9 % Sodium Chloride 1,000 ML 100 ML IVCONT (15:23)
[2022-03-02] MEDS: Famotidine/PF 20 MG/2 ML VIAL IVPUSH (15:23)
[2022-03-02 15:53] LABS: COVID-19 Test Negative (Negative)
[2022-03-02] MEDS: PEG 3350/Na Sulf,Bicarb,Cl/KCL 4,000 ML SOLN.RECON 4000 ML PO (16:27)
[2022-03-02] MEDS: Albumin Human 25 % 100 ML IV ×2 (16:46→18:53)
[2022-03-02 19:39] VITALS: BP 121/55; PULSE 53; RESP 15; TEMP 36.4; O2SAT 99
[2022-03-02] MEDS: Zolpidem Tartrate 5 MG TABLET 10 MG PO (21:47)
[2022-03-02] MEDS: Gabapentin 400 MG CAPSULE PO (21:47)
[2022-03-02] MEDS: risperiDONE 0.5 MG TABLET PO (21:47)
[2022-03-02] MEDS: Topiramate 100 MG TABLET 200 MG PO (21:47)
[2022-03-02] MEDS: Lactulose 20 GM/30 ML SOLUTION PO (21:48)
--- NOTE | 2022-03-02 22:00 | MHC.CM.PN ---
IMM 03/02. A&Ox4. HCP on file. HCP Mike Rico ([phone]). HCP#2 Catalino Todd ([phone]). Vzx/boosted/ [employer] (02/10/21, 03/03/21, 10/28/21).Recently D/[place] [facility] [place] Hematuria/bloody stool. Now with rectal bleeding. For Colonoscopy on 03/03. Lives with , Catalino. Uses cane, rollator. No services. Stopped drinking 7 months ago. Paracentesis 1 week ago. D/C plan: Home without services. Family to provide transport home. CM to follow for d/c needs.
[2022-03-02 22:29] VITALS: BP 105/53; PULSE 53; RESP 13; TEMP 36.5; O2SAT 97
[2022-03-03] VITALS (7 sets, daily range): BP systolic 93–120; BP diastolic 49–61; PULSE 51–58; RESP 12–16; TEMP 36.3–37; O2SAT 95–100
[2022-03-03] MEDS: 0.9 % Sodium Chloride 1,000 ML 100 ML IVCONT (02:05)
--- NOTE | 2022-03-03 02:40 | CONS_ITS ---
DATE OF SERVICE: 03/02/2022 REFERRING PHYSICIAN: Dr. Ch REASON FOR CONSULTATION: Rectal bleeding. HISTORY OF PRESENT ILLNESS: The patient is a pleasant 56-year-old man seen today in consultation at the request of Dr. Ch for rectal bleeding. He reports about one month of intermittent episodic bright red blood per rectum with a large amount of blood filling the toilet bowl and passing clots. He does report a history of hemorrhoids, but states these have been small and does not believe this is the source of the bleeding. He has been followed in [place] by Dr. Apple and believes he had a colonoscopy about 3 to 5 years ago with polyps and is scheduled for repeat evaluation, but not until July by his report. He has no complaints of abdominal pain or rectal pain. He does have a history of ascites from drinking alcohol and cirrhosis on that basis. He states he does not drink, had not had anything to drink for 7 months, and had a paracentesis about a week ago with removal of 4 L. He has had reaccumulation of ascitic fluid and is requesting large volume paracentesis for comfort. PAST MEDICAL HISTORY: 1. Cirrhosis with ascites secondary to alcohol. 2. Anxiety/depression. 3. Hypertension. 4. Hyperlipidemia. 5. Prostate cancer. s/p XRT 6. Metabolic encephalopathy. CURRENT MEDICATIONS: Reviewed in the chart. He has been on diuretic therapy and reports compliance with this. ALLERGIES: THERE ARE FOOD ALLERGIES, BUT NO DRUG ALLERGIES. FAMILY HISTORY: This is reviewed with the patient and is noncontributory. SOCIAL HISTORY: There is no current tobacco, alcohol, or substance abuse. REVIEW OF SYSTEMS: SKIN: No pruritus. HEENT: Negative. CARDIOPULMONARY: No shortness of breath or chest pain. GASTROINTESTINAL: As above. GENITOURINARY: Negative. NEUROPSYCHIATRIC: Negative. PHYSICAL EXAMINATION: GENERAL: Shows a pleasant male, lying comfortably in bed. VITAL SIGNS: Reviewed in electronic medical record and are stable. SKIN: Anicteric. HEENT: Shows no scleral icterus. NECK: Without lymphadenopathy or thyromegaly. LUNGS: Clear. HEART: Shows regular rate and rhythm. S1, S2. No murmur. ABDOMEN: Obese with obvious ascites. The liver is ballotable. Bowel sounds are present. No organomegaly is noted. EXTREMITIES: Show mild edema. LABORATORY DATA: Remarkable for a white blood cell count of 28, up from 25 in January. INR is 1.2. Platelet count is normal. Chemistries show an alkaline phosphatase of 293 with normal transaminases. IMPRESSION: 1. Rectal bleeding. 2. Alcoholic cirrhosis with ascites. I discussed with him the differential for rectal bleeding including tumors and polyps as well as hemorrhoids, AVMs, and diverticular bleeding. For further evaluation of his bleeding, he will undergo colonoscopy. We discussed risks and benefits of the procedure. He understands these and agrees to proceed. This will be arranged for tomorrow. Ultrasound paracentesis can be arranged for comfort reasons as needed. Thanks for asking me to see him. I will follow him in the hospital with you. MD LA Rowe/ROMAINE / [phone] MTDD
[2022-03-03 04:45] LABS: MANUAL DIFF FLAG NO
[2022-03-03 04:46] LABS: Basophils Absolute Auto 0.1 X10*3/uL (0.0-0.2); Basophils Percent Auto 0.6 % (0-2); Eosinophils Absolute Auto 0.3 X10*3/uL (0.0-0.4); Eosinophils Percent Auto 3.6 % (0-4); Hematocrit 24.9 % (42.0-52.0); Imm Gran Abs Auto 0.02 X10*3/uL (0.00-0.03); Imm Gran Pct Auto 0.2 % (0.0-0.4); Lymphocytes Absolute Auto 2.2 X10*3/uL (1.2-4.9); Lymphocytes Percent Auto 27.5 % (20-40); Mean Corpuscular HGB Conc 32.1 g/dl (31.0-36.0); Mean Corpuscular Hemoglobin 29.1 pg (27.0-33.0); Mean Corpuscular Volume 90.5 fL (80.0-98.0); Mean Platelet Volume 9.5 fL (9.4-12.4); Monocytes Absolute Auto 0.6 X10*3/uL (0.1-1.2); Monocytes Percent Auto 7.2 % (2-11); Neutrophils Absolute Auto 4.9 x10*3/uL (2.0-8.3); Neutrophils Percent Auto 60.9 % (45-73); Platelet Count 230 X10*3/uL (160-400); Red Blood Count 2.75 X10*6/uL (4.60-5.80); Red Cell Distribution Width 15.2 % (11.0-16.0); White Blood Count 8.1 X10*3/uL (4.8-10.8)
[2022-03-03 05:05] LABS: Alanine Aminotransferase 8 U/L (0-40); Albumin Level 2.6 g/dL (3.5-5.0); Alkaline Phosphatase 224 U/L (39-117); Anion Gap 9 (12-20); Aspartate Amino Transferase 21 U/L (5-37); Bilirubin Direct 1.1 mg/dL (0.0-0.5); Bilirubin Total 2.1 mg/dL (0.0-1.0); Blood Urea Nitrogen 6 mg/dL (9-16); Calcium 8.5 mg/dL (8.4-10.2); Carbon Dioxide 24 mmol/L (22-29); Chloride 109 mmol/L (96-108); Creatinine Clr Calc Pharmacy 105.7; Estimated Glomerular Filt Rate > 60; Glucose Random 95 mg/dL (60-115); Potassium 3.9 mmol/L (3.3-5.1); Sodium 138 mmol/L (135-145); Total Protein 6.3 g/dL (6.5-8.0)
--- NOTE | 2022-03-03 05:52 | PC.NURSE ---
Report given to short stay, plan for short stay to arrive to take pt @ [id number] for a colonoscopy.
--- NOTE | 2022-03-03 06:25 | PC.NURSE ---
Pt off to short stay for colonoscopy. Plan to hold bed for patient return.
[2022-03-03] MEDS: Lactated Ringers 1,000 ML 100 ML IVCONT (07:15)
--- NOTE | 2022-03-03 07:22 | PC.NURSE ---
ambulated steady gait with cane and one assist to bathroom. states clear output. no blood.
--- NOTE | 2022-03-03 07:34 | P.CONAN_ITS ---
HPI - Anesthesia Eval Consult details Narrative: 56 yo male patient for colonoscopy PMFSH Active Problems Active Problems: All Active Problems (Updated 03/02/22 @ 15:50 by Neel Ch MD) Alcoholic liver disease Rectal bleeding Ascites (Acute). Paracentesis in the past GI bleed (Acute) Acute hyponatremia (Acute) Encephalopathy (Acute) Hypertension (Acute) Hyperlipidemia (Acute) Depression (Acute) NATHANIEL (acute kidney injury) (Acute) Anasarca (Acute) History of radiation therapy (Acute) Fatty liver (Acute) Anxiety (Acute) Major Depression. PTSD. Suicidal attempts Past Medical History Medical History Acute metabolic encephalopathy NATHANIEL (acute kidney injury) Alcoholic cirrhosis of liver with ascites Anxiety Depression Falls Hyperlipidemia Hypertension Hyponatremia Prostate cancer Family History Family history of problems with anesthesia: No Surgical History History of Problems with Anesthesia: No Social History Social History Household Members: Other Household Members Other:: fiancee Housing: [facility], [place] Do you presently have visiting nurse or other home services: Yes Alcohol intake: former Patient Tobacco Use Status: Former Tobacco user Tobacco use type: Cigarette Use of substances other than those prescribed or required for medical reasons: No Are you DNR?: No Advance Directives: Yes Advance Directives Information Provided: No Advance Directives on File: No Advance Directives Date on File: 11/11/21 Recently lost weight without trying: Yes How much weight loss: 34pounds or more service: No Current occupational status: disabled Meds Allergies Allergy/AdvReac Type Severity Reaction Status Date / Time Fish Containing Products Allergy Severe THROAT Verified 12/06/21 15:50 SWELLING peanut [Peanut] Allergy Severe THROAT Verified 12/06/21 15:50 SWELLING Active Medications: Current Medications Acetaminophen (Acetaminophen 325 Mg Tablet) 650 mg PO Q6H PRN PRN Reason: Pain, Mild (Pain Scale 1-3) Fluoxetine HCl (Fluoxetine Hcl 20 Mg Capsule) 60 mg PO DAILY [facility] Gabapentin (Gabapentin 400 Mg Capsule) 400 mg PO BID [facility] Last Admin: 03/02/22 21:47 Dose: 400 mg Documented by: Sodium Chloride (Ns) 1,000 mls @ 100 mls/hr IVCONT .Q10H [facility] Last Admin: 03/03/22 02:05 Dose: 100 mls/hr Documented by: Lactulose (Lactulose 20 Gm/30 Ml Solution) 20 gm PO TID [facility] Last Admin: 03/02/22 21:48 Dose: 20 gm Documented by: Omeprazole (Omeprazole 20 Mg Capsule.) 20 mg PO DAILY@0630 [facility] Last Admin: 03/03/22 05:54 Dose: Not Given Documented by: Ondansetron HCl (Ondansetron Hcl 4 Mg/2 Ml Vial) 4 mg IVPUSH Q8H PRN PRN Reason: Nausea and Vomiting Pharmacy Consult (Consult Rx Perform Med Rec) 1 each MISCELLANE ONCE PRN PRN Reason: Consult order Risperidone (Risperidone 0.5 Mg Tablet) 0.5 mg PO BEDTIME [facility] Last Admin: 03/02/22 21:47 Dose: 0.5 mg Documented by: Sodium Chloride (0.9 % Sodium Chloride Flush 3 Ml Syringe) 3 ml IVFLUSH QSHIFT [facility] Last Admin: 03/03/22 06:54 Dose: Not Given Documented by: Tamsulosin HCl (Tamsulosin Hcl 0.4 Mg Capsule) 0.4 mg PO DAILY [facility] Topiramate (Topiramate 100 Mg Tablet) 200 mg PO BID [facility] Last Admin: 03/02/22 21:47 Dose: 200 mg Documented by: Zolpidem Tartrate (Zolpidem Tartrate 5 Mg Tablet) 10 mg PO BEDTIME [facility] Last Admin: 03/02/22 21:47 Dose: 10 mg Documented by: Home Medications Medication Instructions Recorded Confirmed Last Taken Type lactulose 10 gram/15 mL oral 30 ml PO TID 11/11/21 03/02/22 02/28/22 History solution (Constulose) pantoprazole 40 mg tablet,delayed 1 tab PO DAILY 11/11/21 03/02/22 03/02/22 History release propranolol 10 mg tablet 1 tab PO TID 11/11/21 03/02/22 03/02/22 History risperidone 0.5 mg tablet 1 tab PO BEDTIME 11/11/21 03/02/22 03/02/22 History spironolactone 25 mg tablet 2 tab PO DAILY 11/11/21 03/02/22 03/01/22 History topiramate 200 mg tablet (Topamax) 1 tab PO BID 11/11/21 03/02/22 03/02/22 History zolpidem 10 mg tablet (Ambien) 1 tab PO BEDTIME 11/11/21 03/02/22 03/01/22 History gabapentin 400 mg capsule 1 cap PO BID 11/20/21 03/02/22 03/02/22 History (Neurontin) fluoxetine 20 mg capsule (Prozac) 3 cap PO DAILY 02/06/22 03/02/22 03/02/22 History furosemide 20 mg tablet 1 tab PO DAILY 02/06/22 03/02/22 03/01/22 History Exam Exam Date and Time: March 03, 2022 0734 Height,Weight and Vital Signs: Height 5 ft 9 in Weight 77.111 kg Last Vital Signs Temp 97.3 F 03/03/22 06:41 Pulse 53 03/03/22 06:41 Resp 16 03/03/22 06:41 BP 120/61 03/03/22 06:41 Pulse Ox 100 03/03/22 06:41 Pertinent Lab Results Pertinent Lab Results: Laboratory Tests 03/02/22 03/02/22 03/02/22 10:43 10:43 13:46 WBC 9.6 RBC 3.10 L Hgb 9.0 L Hct 28.1 L MCV 90.6 MCH 29.0 MCHC 32.0 RDW 15.1 Plt Count 262 MPV 9.5 Immature Gran % (Auto) 0.3 Neut % (Auto) 68.6 Lymph % (Auto) 21.3 [place] % (Auto) 6.5 Eos % (Auto) 2.9 Baso % (Auto) 0.4 Lymph # (Auto) 2.0 [place] # (Auto) 0.6 Eos # (Auto) 0.3 Baso # (Auto) 0.0 Abs Immat Gran (auto) 0.03 Absolute Neuts (auto) 6.6 Absolute Nucleated RBC 0.000 Nucleated RBC % (auto) 0.0 PT 13.8 H INR 1.2 H APTT 43.3 H Sodium 134 L Potassium 3.7 Chloride 106 Carbon Dioxide 22 Anion Gap 10 L BUN 8 L Creatinine 0.88 Estim Creat Clear Calc 93.7 Estimated GFR > 60 Random Glucose 114 Calcium 8.6 D Magnesium Iron 31 L TIBC 193 L % Saturation 16 Unsat Iron Binding 162 Total Bilirubin 1.8 H Direct Bilirubin AST 31 ALT 12 Alkaline Phosphatase 293 H D Total Protein 7.4 Albumin 2.6 L Stool Occult Blood COVID-19 ([facility]) COVID-19 [employer] Com 03/02/22 03/02/22 03/03/22 13:47 15:29 04:41 WBC 8.1 RBC 2.75 L Hgb 8.0 L Hct 24.9 L MCV 90.5 MCH 29.1 MCHC 32.1 RDW 15.2 Plt Count 230 MPV 9.5 Immature Gran % (Auto) 0.2 Neut % (Auto) 60.9 Lymph % (Auto) 27.5 [place] % (Auto) 7.2 Eos % (Auto) 3.6 Baso % (Auto) 0.6 Lymph # (Auto) 2.2 [place] # (Auto) 0.6 Eos # (Auto) 0.3 Baso # (Auto) 0.1 Abs Immat Gran (auto) 0.02 Absolute Neuts (auto) 4.9 Absolute Nucleated RBC 0.000 Nucleated RBC % (auto) 0.0 PT INR APTT Sodium Potassium Chloride Carbon Dioxide Anion Gap BUN Creatinine Estim Creat Clear Calc Estimated GFR Random Glucose Calcium Magnesium Iron TIBC % Saturation Unsat Iron Binding Total Bilirubin Direct Bilirubin AST ALT Alkaline Phosphatase Total Protein Albumin Stool Occult Blood POSITIVE COVID-19 ([facility]X[place]) Negative COVID-19 [facility]aph[facility] See Note 03/03/22 03/03/22 04:41 04:41 WBC RBC Hgb Hct MCV MCH MCHC RDW Plt Count MPV Immature Gran % (Auto) Neut % (Auto) Lymph % (Auto) [place] % (Auto) Eos % (Auto) Baso % (Auto) Lymph # (Auto) [place] # (Auto) Eos # (Auto) Baso # (Auto) Abs Immat Gran (auto) Absolute Neuts (auto) Absolute Nucleated RBC Nucleated RBC % (auto) PT INR APTT Sodium 138 Potassium 3.9 Chloride 109 H Carbon Dioxide 24 Anion Gap 9 L BUN 6 L Creatinine 0.78 Estim Creat Clear Calc 105.7 Estimated GFR > 60 Random Glucose 95 Calcium 8.5 Magnesium 2.0 Iron TIBC % Saturation Unsat Iron Binding Total Bilirubin 2.1 H Direct Bilirubin 1.1 H AST 21 ALT 8 Alkaline Phosphatase 224 H D Total Protein 6.3 L Albumin 2.6 L Stool Occult Blood COVID-19 ([facility]X[place]) COVID-19 [employer] Com Narrative Narrative: Procedure Date:? 11/12/2021 Procedure Type:? Transthoracic Echocardiogram ?? ? Conclusions: -? 1.? Normal LV systolic function with normal diastolic filling pattern? 2. Normal cardiac valvular Doppler ? 3.? Normal RV systolic pressure with possibly mildly increased ? right atrial pressures ? 4. Mildly dilated left atrium? 5. No pericardial effusion ? Findings Left Ventricle Normal left ventricular size, thickness, and systolic function. The visually estimated ejection fraction is between 55-60%.? Spectral Doppler is indicative of a normal filling pattern. Airway Mallampati Class: II TM Dist: >3cm Neck ROM: Full Loose/Missing/Broken Teeth: Yes (Some extractions) Heart: RRR Lungs: CTAB Assessment and Plan Final Anesthetic Review Family History of Problems with Anesthesia: No History of Problems with Anesthesia: No
--- NOTE | 2022-03-03 07:57 | P.BOP_ITS ---
Brief Operative Note Date of Service: 03/03/22 Pre-op diagnosis: rectal bleeding Post-op diagnosis: same Procedure: colonoscopy Surgeon: Kash Roldan Anesthesia: MAC Was an Director Of Revenue Cycle Management used for this Procedure?: No Estimated blood loss (mL): 5 Pathology: other (polyp cecum, rectal biopsies) Condition: stable Disposition: PACU
[2022-03-03] MEDS: FLUoxetine HCl 20 MG CAPSULE 60 MG PO (10:10)
[2022-03-03] MEDS: Gabapentin 400 MG CAPSULE PO (10:10)
[2022-03-03] MEDS: Tamsulosin HCL 0.4 MG CAPSULE PO (10:10)
[2022-03-03] MEDS: Topiramate 100 MG TABLET 200 MG PO (10:10)
[2022-03-03] MEDS: Omeprazole 20 MG CAPSULE.DR PO (10:10)
[2022-03-03] MEDS: Lactulose 20 GM/30 ML SOLUTION PO (10:10)
--- NOTE | 2022-03-03 11:17 | HO.PM.IMPN ---
Subjective Subjective Date of Service: 03/03/22 Interval History: seen and examined this morning follow up for rectal bleeding Had colonoscopy this morning, report pending Patient reports having some rectal bleeding following procedure. He denies any abdominal pain, nausea, vomiting. No dizziness Review of Systems Review of Systems: Yes all other systems are reviewed and are negative Constitutional Constitutional: Denies chills and Denies fever(s) Cardiovascular Cardiovascular: Denies chest pain, Denies palpitations and Denies dyspnea Respiratory Respiratory: Denies cough and Denies dyspnea Gastrointestinal Gastrointestinal: Reports abdominal pain, Reports hematochezia, Denies diarrhea, Denies nausea and Denies vomiting Endocrine Endocrine: Denies palpitations Physical Exam Vital Signs: Vital Signs: Last Vital Signs Temp 97.4 F 03/03/22 09:36 Pulse 53 03/03/22 09:36 Resp 16 03/03/22 09:36 BP 109/57 L 03/03/22 09:36 Pulse Ox 99 03/03/22 09:36 BMI result Body Mass Index 25.1 Const: General: cooperative, comfortable, alert and awake Nutritional Appearance: average body habitus Orientation/consciousness: patient oriented x3 Eyes: Pupils: Equal, round and reactive pupils present EOM: EOMs intact bilaterally Resp: Auscultation: clear to auscultation bilaterally Cardio: Rate: regular rate Heart sounds: S1 normal heart sound present and S2 normal heart sound present GI: Palpation (GI): Soft to palpation and nontender Percussion: Yes Fluid wave present Neuro: General: patient oriented x3 Cranial nerves: Yes Equal, round and reactive pupils present Extrem: Other: b/l pitting edema Objective Data Active Medications Acetaminophen (Acetaminophen 325 Mg Tablet) 650 mg PO Q6H PRN PRN Reason: Pain, Mild (Pain Scale 1-3) Fluoxetine HCl (Fluoxetine Hcl 20 Mg Capsule) 60 mg PO DAILY [facility] Last Admin: 03/03/22 10:10 Dose: 60 mg Documented by: JASBIR Gabapentin (Gabapentin 400 Mg Capsule) 400 mg PO BID [facility] Last Admin: 03/03/22 10:10 Dose: 400 mg Documented by: JASBIR Sodium Chloride (Ns) 1,000 mls @ 100 mls/hr IVCONT .Q10H [facility] Last Admin: 03/03/22 02:05 Dose: 100 mls/hr Documented by: LISA Lactated Ringer's (Lr) 1,000 mls @ 100 mls/hr IVCONT .Q10H [facility] Last Admin: 03/03/22 07:15 Dose: 100 mls/hr Documented by: STEVE Lactulose (Lactulose 20 Gm/30 Ml Solution) 20 gm PO TID [facility] Last Admin: 03/03/22 10:10 Dose: 20 gm Documented by: JASBIR Omeprazole (Omeprazole 20 Mg Capsule.Dr) 20 mg PO DAILY@0630 [facility] Last Admin: 03/03/22 10:10 Dose: 20 mg Documented by: JASBIR Ondansetron HCl (Ondansetron Hcl 4 Mg/2 Ml Vial) 4 mg IVPUSH Q8H PRN PRN Reason: Nausea and Vomiting Pharmacy Consult (Consult Rx Perform Med Rec) 1 each MISCELLANE ONCE PRN PRN Reason: Consult order Risperidone (Risperidone 0.5 Mg Tablet) 0.5 mg PO BEDTIME [facility] Last Admin: 03/02/22 21:47 Dose: 0.5 mg Documented by: LISA Sodium Chloride (0.9 % Sodium Chloride Flush 3 Ml Syringe) 3 ml IVFLUSH QSHIFT [facility] Last Admin: 03/03/22 06:54 Dose: Not Given Documented by: VAZUQEZ Non-Admin Reason: Med Not Available Tamsulosin HCl (Tamsulosin Hcl 0.4 Mg Capsule) 0.4 mg PO DAILY [facility] Last Admin: 03/03/22 10:10 Dose: 0.4 mg Documented by: JASBIR Topiramate (Topiramate 100 Mg Tablet) 200 mg PO BID [facility] Last Admin: 03/03/22 10:10 Dose: 200 mg Documented by: JASBIR Zolpidem Tartrate (Zolpidem Tartrate 5 Mg Tablet) 10 mg PO BEDTIME [facility] Last Admin: 03/02/22 21:47 Dose: 10 mg Documented by: LISA Labs CBC & Chem 7: 03/03/22 04:41 03/03/22 04:41 Labs: Laboratory Results - last 24 hr 03/02/22 03/02/22 03/02/22 10:43 13:46 13:47 MCV MCH MCHC RDW Plt Count MPV Immature Gran % (Auto) Neut % (Auto) Lymph % (Auto) [place] % (Auto) Eos % (Auto) Baso % (Auto) Lymph # (Auto) [place] # (Auto) Eos # (Auto) Baso # (Auto) Abs Immat Gran (auto) Absolute Neuts (auto) Absolute Nucleated RBC Nucleated RBC % (auto) PT 13.8 H INR 1.2 H APTT 43.3 H Anion Gap Estim Creat Clear Calc Estimated GFR Random Glucose Calcium Magnesium Iron 31 L TIBC 193 L % Saturation 16 Unsat Iron Binding 162 Total Bilirubin Direct Bilirubin AST ALT Alkaline Phosphatase Total Protein Albumin Stool Occult Blood POSITIVE COVID-19 ([facility]) COVID-19 [employer] Com 03/02/22 03/03/22 03/03/22 15:29 04:41 04:41 MCV 90.5 MCH 29.1 MCHC 32.1 RDW 15.2 Plt Count 230 MPV 9.5 Immature Gran % (Auto) 0.2 Neut % (Auto) 60.9 Lymph % (Auto) 27.5 [place] % (Auto) 7.2 Eos % (Auto) 3.6 Baso % (Auto) 0.6 Lymph # (Auto) 2.2 [place] # (Auto) 0.6 Eos # (Auto) 0.3 Baso # (Auto) 0.1 Abs Immat Gran (auto) 0.02 Absolute Neuts (auto) 4.9 Absolute Nucleated RBC 0.000 Nucleated RBC % (auto) 0.0 PT INR APTT Anion Gap 9 L Estim Creat Clear Calc 105.7 Estimated GFR > 60 Random Glucose 95 Calcium 8.5 Magnesium Iron TIBC % Saturation Unsat Iron Binding Total Bilirubin Direct Bilirubin AST ALT Alkaline Phosphatase Total Protein Albumin Stool Occult Blood COVID-19 ([facility]) Negative COVID-19 Clin Com See Note 03/03/22 04:41 MCV MCH MCHC RDW Plt Count MPV Immature Gran % (Auto) Neut % (Auto) Lymph % (Auto) [place] % (Auto) Eos % (Auto) Baso % (Auto) Lymph # (Auto) [place] # (Auto) Eos # (Auto) Baso # (Auto) Abs Immat Gran (auto) Absolute Neuts (auto) Absolute Nucleated RBC Nucleated RBC % (auto) PT INR APTT Anion Gap Estim Creat Clear Calc Estimated GFR Random Glucose Calcium Magnesium 2.0 Iron TIBC % Saturation Unsat Iron Binding Total Bilirubin 2.1 H Direct Bilirubin 1.1 H AST 21 ALT 8 Alkaline Phosphatase 224 H D Total Protein 6.3 L Albumin 2.6 L Stool Occult Blood COVID-19 ([facility]) COVID-19 Clin Com Assessment and Plan (1) Ascites: Status: Acute (2) GI bleed: Status: Acute Plan 56 year old man admitted with rectal bleeding with blood clots over the last several weeks with history alcoholic liver cirrhosis, alcohol cessation 7 months ago GI bleed, acute blood loss anemia. Seen by GI s/p colonoscopy this morning, report pending Recheck CBC this afternoon follow CBC Hypotension improving likely from GI bleed follow BP closely Hold Lasix, propranolol and spironolactone for now Alcoholic liver cirrhosis with ascites, chronic stopped drinking 7 months ago paracentesis ordered and pending On Lasix, propranolol and spironolactone on hold for now due to low blood pressures Continue lactulose GERD Continue Prilosec Mood continue home medications History of urinary retention Continue tamsulosin DVT prophylaxis with scd boots d/t GI bleed Attending Dr. Lackey Full code Requires ongoing hospitalization for close monitoring of H/H postprocedure Quality Stroke Does the patient have a stroke diagnosis?: No VTE Prior VTE?: No VTE Risk Level:: Medical - moderate - high VTE Device Contraindication: N/A - Device Ordered VTE Drug Contraindication: Treatment Not Indicated
[2022-03-03 13:13] LABS: Hematocrit 25.7 % (42.0-52.0); Hemoglobin 8.2 g/dl (14.0-18.0)
--- NOTE | 2022-03-03 13:21 | OP_ITS ---
DATE OF SERVICE: 03/03/2022 SURGEON: Kash Roldan MD INDICATIONS: Rectal bleeding. PREOPERATIVE DIAGNOSIS: POSTOPERATIVE DIAGNOSIS: PROCEDURE PERFORMED: Colonoscopy to the terminal ileum with snare polypectomy and biopsy. ESTIMATED BLOOD LOSS: COMPLICATIONS: ANESTHESIA: ASSISTANTS: SPECIMENS: MEDICATIONS: Monitored anesthesia care. DESCRIPTION OF PROCEDURE: History and physical were performed. The risks and benefits of the procedure were explained to the patient. Informed consent was obtained. The patient was placed in the left lateral decubitus position. A digital rectal exam was performed and was found to be normal. The Olympus pediatric video colonoscope was introduced into the rectum and advanced to the cecum without difficulty. The cecum was identified by transillumination, palpation, and identification of the ileocecal valve. Examination was performed and the scope was removed. He tolerated the procedure well and was taken to recovery area in stable condition. FINDINGS: The terminal ileum was normal. The visualized colonic mucosa was normal. The quality of the prep was good. In the cecum was an 8 mm polyp, which was removed with a snare and recovered via suction. No other polyps were identified. 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 Biopsies were obtained from the rectal mucosa. Retroflexed examination showed small internal hemorrhoids. IMPRESSION: 1. Colon polyp. 2. Rectal bleeding with rectal findings as above. RECOMMENDATION: Follow up the biopsy results. MD LA Rowe/ROMAINE / [id number] MTDD
--- NOTE | 2022-03-03 15:14 | PC.NURSE ---
PT HAD COLONOSCOPY THIS MORNING, FIRST BM WITH JOE BLOOD, EDUCATED PT TO CONTINUE TO INFORM STAFF WITH CONTINUED BLEEDING. FUTURE BM PT STATES NO TO MINIMAL BLEEDING, PT FOR PARACENTISIS AT THIS TIME
[2022-03-03] MEDS: Lidocaine HCl 1 % 20 ML VIAL 8 ML SUBCUT (15:22)
--- NOTE | 2022-03-03 16:42 | P.DS_ITS ---
DS: Providers Provider Date of Service: 03/03/22 Date of admission: 03/02/22 15:11 Date of discharge: 03/03/22 Primary care physician: Arben German MD Consults: 03/02/22 15:11 Consult to Gastroenterology Routine Consulting Provider: Freddy Villalta Reason for consultation: gi bleed Has provider been notified: No Attending physician on discharge: Clay Lackey Discharging clinician: Desiree Chandra DS: Diagnosis Discharge Diagnosis (1) Ascites: Status: Acute (2) GI bleed: Status: Acute DS: Summary Hospital Course Hospital Course: Patient was admitted for rectal bleeding. He was seen by GI who recommended a colonoscopy. He had a colonoscopy this morning, following which he had some more rectal bleeding. Colonoscopy showed an 8 mm polyp in the cecum which was removed with snare. 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 Biopsies were obtained from the rectal mucosa. He also underwent therapeutic paracentesis with removal of 1.7 L of clear yellow fluid. Patient was recommended to stay overnight for observation and repeat CBC in the morning. However he day client to stay and left the hospital against medical advice. He is encouraged to follow-up with his primary care physician as well as his primary marketing operations analyst, Dr. Apple at [facility] for further management. Time Spent with Patient Time attestation: Total time spent providing and/or coordinating discharge services: Discharge coordination time: Greater than 30 minutes Quality: Safe Use of Opioids Does Pt have an Active Cancer Diagnosis on the Problem List?: No Quality: Stroke Does the patient have a stroke diagnosis?: No Physical Exam Vital Signs: Vital Signs: Last Vital Signs Temp 97.4 F 03/03/22 09:36 Pulse 51 03/03/22 15:28 Resp 16 03/03/22 15:28 BP 111/55 L 03/03/22 15:28 Pulse Ox 99 03/03/22 15:28 BMI result Body Mass Index 25.1 DS: Data Data Completed and Pending Completed studies during hospitalization [Text1]: Procedures Drainage of Peritoneal Cavity, Percutaneous Approach (02/06/22) Repair Scalp Skin, External Approach (11/20/21) Transfusion of Nonautologous Red Blood Cells into Peripheral Vein, Percutaneous Approach (02/06/22) Pending studies at discharge: Pending at discharge 03/03/22 08:03 Surgical [PTH] Routine Labs on day of discharge: Laboratory Results - last 24 hr 03/03/22 03/03/22 03/03/22 04:41 04:41 04:41 WBC 8.1 RBC 2.75 L Hgb 8.0 L Hct 24.9 L MCV 90.5 MCH 29.1 MCHC 32.1 RDW 15.2 Plt Count 230 MPV 9.5 Immature Gran % (Auto) 0.2 Neut % (Auto) 60.9 Lymph % (Auto) 27.5 [place] % (Auto) 7.2 Eos % (Auto) 3.6 Baso % (Auto) 0.6 Lymph # (Auto) 2.2 [place] # (Auto) 0.6 Eos # (Auto) 0.3 Baso # (Auto) 0.1 Abs Immat Gran (auto) 0.02 Absolute Neuts (auto) 4.9 Absolute Nucleated RBC 0.000 Nucleated RBC % (auto) 0.0 Sodium 138 Potassium 3.9 Chloride 109 H Carbon Dioxide 24 Anion Gap 9 L BUN 6 L Creatinine 0.78 Estim Creat Clear Calc 105.7 Estimated GFR > 60 Random Glucose 95 Calcium 8.5 Magnesium 2.0 Total Bilirubin 2.1 H Direct Bilirubin 1.1 H AST 21 ALT 8 Alkaline Phosphatase 224 H D Total Protein 6.3 L Albumin 2.6 L 03/03/22 13:08 WBC RBC Hgb 8.2 L Hct 25.7 L MCV MCH MCHC RDW Plt Count MPV Immature Gran % (Auto) Neut % (Auto) Lymph % (Auto) [place] % (Auto) Eos % (Auto) Baso % (Auto) Lymph # (Auto) [place] # (Auto) Eos # (Auto) Baso # (Auto) Abs Immat Gran (auto) Absolute Neuts (auto) Absolute Nucleated RBC Nucleated RBC % (auto) Sodium Potassium Chloride Carbon Dioxide Anion Gap BUN Creatinine Estim Creat Clear Calc Estimated GFR Random Glucose Calcium Magnesium Total Bilirubin Direct Bilirubin AST ALT Alkaline Phosphatase Total Protein Albumin Discharge Plan Discharge Patient Disposition: Left Against Medical Advice Discharge Diagnosis: Ascites GI bleeding Referrals: Arben German MD [Primary Care Provider] - 1 Week Discharge Medications: No Action spironolactone 25 mg tablet 2 tab PO DAILY 0RF propranolol 10 mg tablet 1 tab PO TID 0RF topiramate [Topamax] 200 mg tablet 1 tab PO BID 0RF zolpidem [Ambien] 10 mg tablet 1 tab PO BEDTIME 0RF risperidone 0.5 mg tablet 1 tab PO BEDTIME 0RF pantoprazole 40 mg tablet,delayed release (DR/EC) 1 tab PO DAILY 0RF lactulose [Constulose] 10 gram/15 mL solution 30 ml PO TID 0RF gabapentin [Neurontin] 400 mg capsule 1 cap PO BID 0RF furosemide 20 mg tablet 1 tab PO DAILY 0RF fluoxetine [Prozac] 20 mg capsule 3 cap PO DAILY 0RF tamsulosin 0.4 mg Capsule 0.4 mg PO DAILY 30 Days Qty: 30 0RF Discharge Orders: Discharge Order (Routine); Ordered 03/03/22 Ordered By: Desiree Chandra Care Plan Goals: see below Health Concerns: GI bleeding Plan of Treatment: cecal polyp, rectal telangiectasias/AVMs - follow up results of polyp biopsy results return with any rectal bleeding follow up with GI and PCP Assessment: left against medical advice
== END 2022-03-03 17:08 | disposition left against medical advice (07) | DRG 378 ==
LOC: HO.ED 15:11 → HO.EDOVER 15:31 → HO.IMC 03-03 16:40 → HO.EDOVER 03-03 16:55
PROVIDERS: Internal Medicine Gastroenterology; Radiology Diagnostic Radiology; Admitting Provider Nurse Practitioner Acute Care; Emergency Provider Emergency Medicine; PCP Internal Medicine; Visit Provider Physician Assistant Medical
PROC: 0DJD8ZZ Inspection of Lower Intestinal Tract, Via Natural or Artificial Opening Endoscopic (ICD-10-PCS; CPT 45378; principal; 2022-03-03 07:30)
PROC: 0W9G3ZZ Drainage of Peritoneal Cavity, Percutaneous Approach (ICD-10-PCS; principal; 2022-03-03 14:30)
DX: K55.21 Angiodysplasia of colon with hemorrhage (principal); D62 Acute posthemorrhagic anemia; K70.31 Alcoholic cirrhosis of liver with ascites; F41.9 Anxiety disorder, unspecified; F32.A Depression, unspecified; I95.9 Hypotension, unspecified; R33.9 Retention of urine, unspecified; I78.1 Nevus, non-neoplastic; K63.5 Polyp of colon; Z20.822 Contact with and (suspected) exposure to COVID-19; Z92.3 Personal history of irradiation; Z85.46 Personal history of malignant neoplasm of prostate; Z87.891 Personal history of nicotine dependence; Z91.013 Allergy to seafood; Z91.010 Allergy to peanuts; Z79.899 Other long term (current) drug therapy
CPT/HCPCS: 36415; 49083; 80048; 80053; 80076; 82272; 83540; 83735; 85014; 85018; 85025; 85610; 85730; 87635; 88305; 99284; P9047

== ENCOUNTER 2022-10-17 06:50 | Emergency (ER) | payer MEDICARE, SELFPAY ==
[2022-10-17] VITALS (11 sets, daily range): BP systolic 94–101; BP diastolic 45–56; PULSE 56–62; RESP 12–20; TEMP 36.1–36.9; O2SAT 97–100; BMI 24.2
--- NOTE | ~2022-10-17 | CT_ITS ---
EXAMINATION: CT ABDOMEN AND PELVIS WITHOUT AND WITH CONTRAST CLINICAL INFORMATION: Rectal bleed. COMPARISON: CT scan of the pelvis dated 11/21/2021. CT scan of the abdomen and pelvis dated 11/13/2021. TECHNIQUE: Multidetector CT volumetric acquisition of the abdomen and pelvis was performed before and after the administration of 80 mL of intravenous Omnipaque 350. The data set was reformatted in the sagittal and coronal planes and reviewed on an independent workstation. This CT examination was performed using dose optimization techniques as appropriate, variously including the following: *Automated exposure control *Adjustment of mA and/or kV according to patient size (this includes techniques or standardized protocols for targeted exams where dose is matched to indication/reason for exam; i.e. extremities or head) *Use of iterative reconstruction technique DLP: 1784 mGy-cm. FINDINGS: LOWER CHEST: There is a small posteriorly layering left-sided pleural effusion without pleural thickening. Subjacent dependent atelectasis in the left lower lobe is seen. Findings are new compared to 11/13/2021. Bilateral soft tissue densities are seen in the subareolar aspects of both breasts, partially included and consistent with gynecomastia. There are likely coronary artery calcifications. LIVER, GALLBLADDER, BILIARY TREE: Mildly enlarged (19 cm long) nodular and cirrhotic liver is seen. Large volume ascites is noted in the abdomen and pelvis, similar to the previous exam. Small perigastric and perisplenic varices are noted. No focal cystic or solid mass noted on portal venous phase and delayed imaging. No arterial phase imaging was obtained, limiting assessment. No significant intra-or extrahepatic ductal dilatation. Portal veins patent. Gallbladder partially distended and filled with multiple dense calcifications. PANCREAS: Normal. No ductal dilatation, mass, or surrounding stranding. SPLEEN: Enlarged, measuring 15.2 cm longitudinally with prominent sinusoidal spaces seen, filling in on the delayed postcontrast sequences. No focal splenic mass.. Splenic vein patent. ADRENAL GLANDS AND KIDNEYS: Adrenal glands normal. Kidneys bilaterally symmetric in size and function. No focal mass, hydronephrosis, nephrolithiasis or perinephric stranding. URETERS AND BLADDER: Ureters decompressed and within normal limits. Bladder well distended and within normal limits. PELVIC ORGANS: Prostate gland not well visualized due to extensive beam hardening artifact related to metallic clips or fiducial markers. GASTROINTESTINAL TRACT: Normal. No evidence of focal active GI bleeding. Small and large bowel loops decompressed. Appendix in right lower quadrant decompressed. Small appendicolith is noted in the tip of the appendix.. LYMPHOVASCULAR STRUCTURES: Abdominal aorta normal in caliber with mild atherosclerotic calcifications seen. No periaortic collections. No abdominal or pelvic adenopathy. BONES: Multilevel degenerative changes seen in the spine. CT/CT gi bleed abd pel wo/w IVcon IMPRESSION: 1. No evidence of active GI bleeding. 2. Cirrhotic liver with associated large volume ascites in the abdomen and pelvis and splenomegaly. 3. Cholelithiasis with no evidence of acute cholecystitis or biliary obstruction. 4. New small left-sided pleural effusion with associated dependent atelectasis in the left lower lobe.
[2022-10-17 07:45] LABS: MANUAL DIFF FLAG NO
[2022-10-17 07:48] LABS: Basophils Percent Auto 0.6 % (0-2); Eosinophils Absolute Auto 0.3 X10*3/uL (0.0-0.4); Eosinophils Percent Auto 3.8 % (0-4); Hematocrit 22.3 % (42.0-52.0); Imm Gran Abs Auto 0.02 X10*3/uL (0.00-0.03); Imm Gran Pct Auto 0.3 % (0.0-0.4); Lymphocytes Absolute Auto 1.8 X10*3/uL (1.2-4.9); Lymphocytes Percent Auto 25.9 % (20-40); Mean Corpuscular Hemoglobin 20.7 pg (27.0-33.0); Mean Corpuscular Volume 68.8 fL (80.0-98.0); Mean Platelet Volume 9.6 fL (9.4-12.4); Monocytes Absolute Auto 0.8 X10*3/uL (0.1-1.2); Monocytes Percent Auto 10.5 % (2-11); Neutrophils Absolute Auto 4.2 x10*3/uL (2.0-8.3); Neutrophils Percent Auto 58.9 % (45-73); Platelet Count 281 X10*3/uL (160-400); Red Blood Count 3.24 X10*6/uL (4.60-5.80); Red Cell Distribution Width 17.2 % (11.0-16.0)
--- NOTE | 2022-10-17 07:48 | ED_ITS ---
HPI - GI Bleed General Chief complaint: Recheck/Abnormal Lab/Rx Stated complaint: abnormal labs low hgb Time Seen by Provider: 10/17/22 07:16 Source: patient Mode of arrival: ambulatory History of Present Illness HPI Narrative: This is a 57-year-old male with known alcoholic liver cirrhosis that has not had an alcoholic drink in ?over 1 year? and comes in at the request of his current hepatobiliary wellness consultant at [facility] where he is undergoing the process for transplant and had labs approximately 3-4 days ago which demonstrated a low hemoglobin and low platelet count. Patient states he last underwent paracentesis approximately 1 week ago and typically gets paracentesis once a month. He currently denies any dizziness, unusual shortness of breath, heart palpitations, but has had intermittent red blood mixed with stool but the last episode was approximately 2 days ago. Patient states that he has abdominal discomfort at baseline and that this is been going on for weeks/months and has not been associated with nausea/vomiting/fever/chills. Related Data Home Medications Medication Instructions Recorded Confirmed lactulose 10 gram/15 mL oral 30 ml PO TID 11/11/21 03/02/22 solution (Constulose) pantoprazole 40 mg tablet,delayed 1 tab PO DAILY 11/11/21 10/17/22 release propranolol 10 mg tablet 1 tab PO TID 11/11/21 10/17/22 risperidone 0.5 mg tablet 1 tab PO BEDTIME 11/11/21 03/02/22 spironolactone 25 mg tablet 2 tab PO DAILY 11/11/21 10/17/22 topiramate 200 mg tablet (Topamax) 1 tab PO BID 11/11/21 10/17/22 zolpidem 10 mg tablet (Ambien) 1 tab PO BEDTIME 11/11/21 10/17/22 gabapentin 400 mg capsule 1 cap PO BID 11/20/21 03/02/22 (Neurontin) fluoxetine 20 mg capsule (Prozac) 3 cap PO DAILY 02/06/22 10/17/22 furosemide 20 mg tablet 1 tab PO DAILY 02/06/22 03/02/22 furosemide 40 mg tablet 1 tab PO DAILY 10/17/22 10/17/22 melatonin 10 mg-theanine 5.5 mg 1 tab PO BEDTIME PRN Insomnia 10/17/22 10/17/22 tablet risperidone 1 mg tablet 1 tab PO BEDTIME 10/17/22 10/17/22 tamsulosin 0.4 mg capsule 0.4 mg PO BEDTIME 10/17/22 10/17/22 Allergies Allergy/AdvReac Type Severity Reaction Status Date / Time Fish Containing Products Allergy Severe THROAT Verified 12/06/21 15:50 SWELLING peanut [Peanut] Allergy Severe THROAT Verified 12/06/21 15:50 SWELLING Review of Systems Review of Systems: Pertinent positives and negatives as stated in HPI. [facility] Past Medical History Source: nursing notes reviewed Medical History Acute metabolic encephalopathy NATHANIEL (acute kidney injury) Alcoholic cirrhosis of liver with ascites Anxiety Depression Falls Hyperlipidemia Hypertension Hyponatremia Prostate cancer Social History Social History Household Members: Other Household Members Other:: fiancee Housing: [facility] Do you presently have visiting nurse or other home services: Yes Alcohol intake: former Patient Tobacco Use Status: Former Tobacco user Tobacco use type: Cigarette Smoked in Last 30 Days: Yes Use of substances other than those prescribed or required for medical reasons: No Advance Directives: Yes Advance Directives on File: Yes Advance Directives Date on File: 11/11/21 service: No Current occupational status: disabled Physical Exam Vital Signs: Vital Signs: Last Vital Signs Temp 98.1 F 10/17/22 09:21 Pulse 61 10/17/22 09:21 Resp 18 10/17/22 09:21 BP 101/54 L 10/17/22 09:21 Pulse Ox 100 10/17/22 07:41 O2 Del Method 10/17/22 07:41 BMI result Body Mass Index 24.2 VITAL SIGNS: Reviewed. GENERAL: Chronically ill, cachectic, in no acute distress. HEAD: Normocephalic/atraumatic EYES: PERRLA, EOMI, mild scleral icterus, conjunctival pallor EARS: Ext canals without abnormality NOSE: Nares patent bilateral OROPHARYNX: no oral lesions noted, posterior pharynx clear, pale mucosa NECK: Supple, no adenopathy LUNGS: Normal breath sounds. No adventitious sounds or accessory muscle use. SpO2<100> CARDIOVASCULAR: Regular rate and rhythm without noted murmurs, no JVD or lower extremity edema. ABDOMEN: Soft, distended, mild discomfort on palpation GUSTAVO: I note a couple of skin tags, painful rectal with scant stool within the rectal vault and noted red blood on my finger, good rectal tone SKIN: Inspection of the skin reveals no rashes, petechiae,+ pallor,+ jaundice NEUROLOGIC: Alert and oriented x 4. Strength and sensation to light touch were grossly intact x 4. Medications Administered Discontinued Medications Generic Name Dose Route Start Last Admin Trade Name Freq PRN Reason Stop Dose Admin Iohexol 80 ml 10/17/22 08:43 10/17/22 08:43 Iohexol 350 Mg/Ml 100 Ml Infus..Btl IV 10/17/22 08:44 80 ml ONCE ONE Administration Medical Decision Making Medical Decision Making MDM Narrative: 57-year-old male with alcoholic liver cirrhosis and intermittent rectal bleeding with asymptomatic anemia and no suspicion for underlying infection. 0750: Hgb- 6.7, platelets are within normal limits and no evidence of infection. No evidence electrolyte/renal derangement, LFTs are improved in comparison to 03/03/2022. 0810: Patient signed blood consent after discussion regarding risks and benefits. And he was informed that he will require a blood transfusion, 2 units. 1010: Patient admitted to [facility] hospitalists. Differential Diagnosis Differential Diagnoses: The differential diagnosis associated with the presen tation includes Rectal bleeding Admission/Observation Consideration of admission/observation: Escalation of care including admi ssion/observation considered Plan for admission. Consult Healthcare Provider Management of the patient was discussed with: Hospitalist [id number]: I discussed with the inpatient hospitalist, Dr Marshall, for admission for GI bleed, anemia and admission is accepted Lab Data [facility] Lab Attestation statement: I reviewed the patient's lab results. Please see discussion above Result Diagrams: 10/17/22 07:26 10/17/22 07:26 Labs: Lab Results 10/17/22 10/17/22 10/17/22 Range/Units 07:26 07:26 07:26 WBC 7.1 (4.8-10.8) X10*3/uL RBC 3.24 L (4.60-5.80) X10*6/uL Hgb 6.7 L* (14.0-18.0) g/dl Hct 22.3 L (42.0-52.0) % MCV 68.8 L (80.0-98.0) fL MCH 20.7 L (27.0-33.0) pg MCHC 30.0 L (31.0-36.0) g/dl RDW 17.2 H (11.0-16.0) % Plt Count 281 (160-400) X10*3/uL MPV 9.6 (9.4-12.4) fL Immature Gran % (Auto) 0.3 (0.0-0.4) % Neut % (Auto) 58.9 (45-73) % Lymph % (Auto) 25.9 (20-40) % [place] % (Auto) 10.5 (2-11) % Eos % (Auto) 3.8 (0-4) % Baso % (Auto) 0.6 (0-2) % Lymph # (Auto) 1.8 (1.2-4.9) X10*3/uL [place] # (Auto) 0.8 (0.1-1.2) X10*3/uL Eos # (Auto) 0.3 (0.0-0.4) X10*3/uL Baso # (Auto) 0.0 (0.0-0.2) X10*3/uL Abs Immat Gran (auto) 0.02 (0.00-0.03) X10*3/uL Absolute Neuts (auto) 4.2 (2.0-8.3) x10*3/uL Absolute Nucleated RBC 0.000 (0.0-0.012) X10*3/uL Nucleated RBC % (auto) 0.0 (0.0-0.2) /100WBC PT 15.4 H (10.0-13.1) SEC INR 1.3 H (0.9-1.1) Sodium 136 (135-145) mmol/L Potassium 3.5 (3.3-5.1) mmol/L Chloride 106 (96-108) mmol/L Carbon Dioxide 23 (22-29) mmol/L Anion Gap 11 L (12-20) BUN 15 (9-16) mg/dL Creatinine 1.11 (0.5-1.4) mg/dL Estim Creat Clear Calc 73.4 Estimated GFR > 60 Random Glucose 100 (60-115) mg/dL Calcium 7.9 L D (8.4-10.2) mg/dL Total Bilirubin 0.7 (0.0-1.0) mg/dL AST 27 (5-37) U/L ALT 13 (0-40) U/L Alkaline Phosphatase 208 H (39-117) U/L Total Protein 6.8 (6.5-8.0) g/dL Albumin 2.6 L (3.5-5.0) g/dL Urine Color Urine Appearance Urine pH (5.0-9.0) Ur Specific [place] (1.005-1.025) Urine Protein (Neg-Trace) mg/dL Urine Glucose (UA) (Negative) mg/dL Urine Ketones (Negative) mg/dL Urine Blood (Negative) Urine Nitrite (Negative) Ur Leukocyte Esterase (Negative) Urine RBC (0-2) /HPF Urine WBC (0-5) /HPF Ur Squamous Epith Cells (0-2) /HPF Urine Bacteria (None Seen) Hyaline Casts (0-2) /LPF Stool Occult Blood (NEGATIVE) Blood Type Antibody Screen Crossmatch 10/17/22 10/17/22 10/17/22 Range/Units 07:38 07:42 08:47 WBC (4.8-10.8) X10*3/uL RBC (4.60-5.80) X10*6/uL Hgb (14.0-18.0) g/dl Hct (42.0-52.0) % MCV (80.0-98.0) fL MCH (27.0-33.0) pg MCHC (31.0-36.0) g/dl RDW (11.0-16.0) % Plt Count (160-400) X10*3/uL MPV (9.4-12.4) fL Immature Gran % (Auto) (0.0-0.4) % Neut % (Auto) (45-73) % Lymph % (Auto) (20-40) % [place] % (Auto) (2-11) % Eos % (Auto) (0-4) % Baso % (Auto) (0-2) % Lymph # (Auto) (1.2-4.9) X10*3/uL [place] # (Auto) (0.1-1.2) X10*3/uL Eos # (Auto) (0.0-0.4) X10*3/uL Baso # (Auto) (0.0-0.2) X10*3/uL Abs Immat Gran (auto) (0.00-0.03) X10*3/uL Absolute Neuts (auto) (2.0-8.3) x10*3/uL Absolute Nucleated RBC (0.0-0.012) X10*3/uL Nucleated RBC % (auto) (0.0-0.2) /100WBC PT (10.0-13.1) SEC INR (0.9-1.1) Sodium (135-145) mmol/L Potassium (3.3-5.1) mmol/L Chloride (96-108) mmol/L Carbon Dioxide (22-29) mmol/L Anion Gap (12-20) BUN (9-16) mg/dL Creatinine (0.5-1.4) mg/dL Estim Creat Clear Calc Estimated GFR Random Glucose (60-115) mg/dL Calcium (8.4-10.2) mg/dL Total Bilirubin (0.0-1.0) mg/dL AST (5-37) U/L ALT (0-40) U/L Alkaline Phosphatase (39-117) U/L Total Protein (6.5-8.0) g/dL Albumin (3.5-5.0) g/dL Urine Color Yellow Urine Appearance Clear Urine pH 6.5 (5.0-9.0) Ur Specific [place] 1.010 (1.005-1.025) Urine Protein Negative (Neg-Trace) mg/dL Urine Glucose (UA) Negative (Negative) mg/dL Urine Ketones Negative (Negative) mg/dL Urine Blood Negative (Negative) Urine Nitrite Negative (Negative) Ur Leukocyte Esterase Trace H (Negative) Urine RBC 0-2 (0-2) /HPF Urine WBC 0-5 (0-5) /HPF Ur Squamous Epith Cells 0-2 (0-2) /HPF Urine Bacteria None Seen (None Seen) Hyaline Casts 0-2 (0-2) /LPF Stool Occult Blood POSITIVE (NEGATIVE) Blood Type A Positive Antibody Screen NEGATIVE Crossmatch See Detail Radiology Impression Radiologist Impression: My interpretation is in agreement with radiology's impression of imaging study. External Record Review External record reviewed: Outpatient record and Prior outpatient labs Critical Care Time Critical Care Time Critical Care Time: Yes Total Critical Care Time: 45 Attestation: I personally attest to this time spent taking care of the patient. Discharge Plan Discharge Clinical Impression: GI bleed, Acute blood loss anemia, Abdominal ascites, Pleural effusion, left Patient Disposition: Admitted As Inpatient
[2022-10-17 07:49] LABS: OBS Int Ctl Valid YES; OBS1 POSITIVE (NEGATIVE)
[2022-10-17 07:51] LABS: INTERNATIONAL NORM RATIO 1.3 (0.9-1.1); Prothrombin Time 15.4 SEC (10.0-13.1)
[2022-10-17 08:10] LABS: Alanine Aminotransferase 13 U/L (0-40); Albumin Level 2.6 g/dL (3.5-5.0); Alkaline Phosphatase 208 U/L (39-117); Anion Gap 11 (12-20); Aspartate Amino Transferase 27 U/L (5-37); Bilirubin Total 0.7 mg/dL (0.0-1.0); Blood Urea Nitrogen 15 mg/dL (9-16); Calcium 7.9 mg/dL (8.4-10.2); Carbon Dioxide 23 mmol/L (22-29); Chloride 106 mmol/L (96-108); Creatinine Clr Calc Pharmacy 73.4; Estimated Glomerular Filt Rate > 60; Glucose Random 100 mg/dL (60-115); Potassium 3.5 mmol/L (3.3-5.1); Sodium 136 mmol/L (135-145); Total Protein 6.8 g/dL (6.5-8.0)
[2022-10-17 08:20] LABS: Hemoglobin 6.7 g/dl (14.0-18.0); White Blood Count 7.1 X10*3/uL (4.8-10.8)
[2022-10-17] MEDS: iohexoL 350 MG/ML 100 ML INFUS..BTL 80 ML IV (08:43)
[2022-10-17 08:57] LABS: Appearance Urine Clear; Color Urine Yellow; Glucose Urine UA Negative (Negative); Leukocyte Esterase Urine Trace (Negative); Nitrite Urine Negative (Negative); PH 6.5 (5.0-9.0); UMIC TRIGGER UACC YES; Urine Blood Negative (Negative); Urine Ketones Negative (Negative); Urine Protein Negative (Neg-Trace)
[2022-10-17 09:00] LABS: Bacteria Urine None Seen (None Seen); Hyaline Casts Urine 0-2 /LPF (0-2); RBC Urine 0-2 /HPF (0-2); Squamous Epithelial Cell Urine 0-2 /HPF (0-2); WBC Urine 0-5 /HPF (0-5)
--- NOTE | 2022-10-17 09:29 | PC.NURSE ---
patient alert, oriented x4. abd is distended, tender. reports his last paracentesis was 1 week ago. abd pain is not new for him. ambulating to and from the bathroom with steady gait. first bad of RBCs running. denies symptoms of transfusion reaction at this time. call andres within reach. family at the bedside
--- NOTE | 2022-10-17 11:20 | PHA.MEDREC ---
Pharmacy Consult ? Medication Reconciliation Pharmacy has completed the medication reconciliation. Patient no longer taking gabapentin. Fiance reports taking Lasix 10 mg however patient filled Lasix 40 mg tablet daily. Priscilla Leon, PharmD
--- NOTE | 2022-10-17 11:26 | P.HPHOSP_ITS ---
History of Present Illness Date of Service: 10/17/22 Attending physician on admission: Hector Handley Pt is a 57-year-old male with a PMH significant for?alcoholic cirrhosis on transplant list followed by Dr. Apple at [facility], h/o GI bleeds, ascites, who presents to the ED with? In the ED patient was hypotensive and labs were significant for HGB of 6.7/22.3, MCV 68.8, alk phos 2 point, albumin of 2.6. Stools positive for occult blood. CT?showed no evidence of acute GI bleeding, large volume ascites in the abdomen and pelvis, cholelithiasis without evidence of acute cholecystitis or biliary obstruction, and new small left-sided pleural effusion. Pt received 2 units of blood. Pt will be admitted to the hospital [facility] Medical History Acute metabolic encephalopathy NATHANIEL (acute kidney injury) Alcoholic cirrhosis of liver with ascites Anxiety Depression Falls Hyperlipidemia Hypertension Hyponatremia Prostate cancer Social History Household Members: Other Household Members Other:: fiancee [facility] Do you presently have visiting nurse or other home services: Yes Alcohol intake: former Patient Tobacco Use Status: Former Tobacco user Tobacco use type: Cigarette Smoked in Last 30 Days: Yes Use of substances other than those prescribed or required for medical reasons: No Advance Directives: Yes Advance Directives on File: Yes Advance Directives Date on File: 11/11/21 service: No Current occupational status: disabled Meds Allergies Allergy/AdvReac Type Severity Reaction Status Date / Time Fish Containing Products Allergy Severe THROAT Verified 12/06/21 15:50 SWELLING peanut [Peanut] Allergy Severe THROAT Verified 12/06/21 15:50 SWELLING Active Medications: Current Medications Pharmacy Consult (Consult Rx Perform Med Rec) 1 each MISCELLANE ONCE PRN PRN Reason: Consult order Home Medications Medication Instructions Recorded Confirmed Last Taken Type lactulose 10 gram/15 mL oral 30 ml PO TID PRN Constipation 11/11/21 10/17/22 02/28/22 History solution (Constulose) pantoprazole 40 mg tablet,delayed 1 tab PO DAILY 11/11/21 10/17/22 10/17/22 History release propranolol 10 mg tablet 1 tab PO TID 11/11/21 10/17/22 10/17/22 History topiramate 200 mg tablet (Topamax) 1 tab PO BID 11/11/21 10/17/22 10/17/22 History zolpidem 10 mg tablet (Ambien) 1 tab PO BEDTIME 11/11/21 10/17/22 03/01/22 History fluoxetine 20 mg capsule (Prozac) 3 cap PO DAILY 02/06/22 10/17/22 10/17/22 History furosemide 40 mg tablet 1 tab PO DAILY 10/17/22 10/17/22 10/16/22 History melatonin 10 mg-theanine 5.5 mg 1 tab PO BEDTIME PRN Insomnia 10/17/22 10/17/22 Unknown History tablet risperidone 1 mg tablet 1 tab PO BEDTIME 10/17/22 10/17/22 10/16/22 History spironolactone 100 mg tablet 1 tab PO DAILY 10/17/22 10/17/22 10/16/22 History tamsulosin 0.4 mg capsule 0.4 mg PO BEDTIME 10/17/22 10/17/22 10/16/22 History Physical Exam Vital Signs and Narrative: Vital Signs: Last Vital Signs Temp 97.9 F 10/17/22 11:20 Pulse 56 10/17/22 11:20 Resp 18 10/17/22 11:20 BP 97/53 L 10/17/22 11:20 Pulse Ox 100 10/17/22 07:41 O2 Del Method 10/17/22 07:41 BMI result Body Mass Index 24.2 Results Labs CBC and Chem 7: 10/17/22 07:26 10/17/22 07:26 Labs: Laboratory Results - last 24 hr 10/17/22 10/17/22 10/17/22 07:26 07:26 07:26 MCV 68.8 L MCH 20.7 L MCHC 30.0 L RDW 17.2 H Plt Count 281 MPV 9.6 Immature Gran % (Auto) 0.3 Neut % (Auto) 58.9 Lymph % (Auto) 25.9 [place] % (Auto) 10.5 Eos % (Auto) 3.8 Baso % (Auto) 0.6 Lymph # (Auto) 1.8 [place] # (Auto) 0.8 Eos # (Auto) 0.3 Baso # (Auto) 0.0 Abs Immat Gran (auto) 0.02 Absolute Neuts (auto) 4.2 Absolute Nucleated RBC 0.000 Nucleated RBC % (auto) 0.0 PT 15.4 H INR 1.3 H Anion Gap 11 L Estim Creat Clear Calc 73.4 Estimated GFR > 60 Random Glucose 100 Calcium 7.9 L D Total Bilirubin 0.7 AST 27 ALT 13 Alkaline Phosphatase 208 H Total Protein 6.8 Albumin 2.6 L Urine Color Urine Appearance Urine pH Ur Specific [place] Urine Protein Urine Glucose (UA) Urine Ketones Urine Blood Urine Nitrite Ur Leukocyte Esterase Urine RBC Urine WBC Ur Squamous Epith Cells Urine Bacteria Hyaline Casts Stool Occult Blood Blood Type Antibody Screen Crossmatch 10/17/22 10/17/22 10/17/22 07:38 07:42 08:47 MCV MCH MCHC RDW Plt Count MPV Immature Gran % (Auto) Neut % (Auto) Lymph % (Auto) [place] % (Auto) Eos % (Auto) Baso % (Auto) Lymph # (Auto) [place] # (Auto) Eos # (Auto) Baso # (Auto) Abs Immat Gran (auto) Absolute Neuts (auto) Absolute Nucleated RBC Nucleated RBC % (auto) PT INR Anion Gap Estim Creat Clear Calc Estimated GFR Random Glucose Calcium Total Bilirubin AST ALT Alkaline Phosphatase Total Protein Albumin Urine Color Yellow Urine Appearance Clear Urine pH 6.5 Ur Specific [place] 1.010 Urine Protein Negative Urine Glucose (UA) Negative Urine Ketones Negative Urine Blood Negative Urine Nitrite Negative Ur Leukocyte Esterase Trace H Urine RBC 0-2 Urine WBC 0-5 Ur Squamous Epith Cells 0-2 Urine Bacteria None Seen Hyaline Casts 0-2 Stool Occult Blood POSITIVE Blood Type A Positive Antibody Screen NEGATIVE Crossmatch See Detail Imaging Radiologist's Impressions: Impressions Abdomen/Pelvis CT 10/17/22 08:53 IMPRESSION: 1. No evidence of active GI bleeding. 2. Cirrhotic liver with associated large volume ascites in the abdomen and pelvis and splenomegaly. 3. Cholelithiasis with no evidence of acute cholecystitis or biliary obstruction. 4. New small left-sided pleural effusion with associated dependent atelectasis in the left lower lobe. Assessment and Plan Plan # acute GI bleed -- received two units in ED -- follow cbc, transfuse as necessary # hypotension -- likely secondary to GI bleed -- hold spironolactone, propranolol, and furosemide for now Time Spent With Patient Time: Total time managing care of this patient today ____ minutes.
== END 2022-10-17 14:25 | disposition left against medical advice (07) ==
PROVIDERS: Emergency Provider Student in an Organized Health Care Education/Training Program; PCP Internal Medicine
DX: K92.2 Gastrointestinal hemorrhage, unspecified (principal); D62 Acute posthemorrhagic anemia; K70.31 Alcoholic cirrhosis of liver with ascites; J91.8 Pleural effusion in other conditions classified elsewhere; F10.21 Alcohol dependence, in remission; Y90.9 Presence of alcohol in blood, level not specified; E78.5 Hyperlipidemia, unspecified; I10 Essential (primary) hypertension; Z85.46 Personal history of malignant neoplasm of prostate; Z87.891 Personal history of nicotine dependence; Z79.899 Other long term (current) drug therapy
CPT/HCPCS: 36415; 36430; 74178; 80053; 81001; 82272; 85025; 85610; 86850; 86900; 86901; 86923; 99284; 99285; P9016; Q9967

== ENCOUNTER 2023-10-27 08:42 | Emergency (ER) | payer MEDICARE, SELFPAY ==
[2023-10-27 09:02] VITALS: BP 105/47; BP 108/70; PULSE 63; PULSE 66; RESP 16; TEMP 36.7; O2SAT 97; O2SAT 99; BMI 29.7
--- NOTE | 2023-10-27 09:13 | ECG_ITS ---
Test Reason : MED CLEARANCE Blood Pressure : / mmHG Vent. Rate : 057 BPM Atrial Rate : 057 BPM P-R Int : 204 ms QRS Dur : 110 ms QT Int : 498 ms P-R-T Axes : 048 -09 054 degrees QTc Int : 484 ms Sinus bradycardia Cannot rule out Anterior infarct , age undetermined Abnormal ECG When compared with ECG of 06-DEC-2021 16:01, No significant change was found Referred By: Lisa Camacho Electronically Signed By:ELIECER RAWLS MD
--- NOTE | 2023-10-27 09:13 | ED_ITS ---
HPI - General Adult General Chief complaint: Psychiatric Symptoms Stated complaint: ANXIETY Time Seen by Provider: 10/27/23 09:13 Source: patient and EMS Mode of arrival: EMS Limitations: no limitations History of Present Illness HPI narrative: Patient is a 58 year old assigned male at with a history of HTN, HLD, depression, and anxiety presenting to the emergency department today with suicidal ideation and losing the will to live . Patient states that he does not feel like he can go on any longer and he wants to . Patient states that he does not have a specific plan for this but he no longer wants to be around. Patient denies any dizziness, lightheadedness, abdominal pain, nausea, vomiting, fever, chills, blurry vision, double vision, loss of vision, chest pain, difficulty breathing, shortness of breath, back pain, night sweats, pain with urination, increased urinary frequency, increased urinary urgency, blood in his urine or stool, syncope or a near syncopal episode, recent trauma or falls, bowel incontinence, bladder incontinence, bowel retention, bladder retention, or any other complaints at this time. Relieving factors: none Exacerbating factors: none Associated symptoms: denies other symptoms Treatments prior to arrival: none Related Data Home Medications Medication Instructions Recorded Confirmed lactulose 10 gram/15 mL oral 30 ml PO TID PRN Constipation 11/11/21 10/17/22 solution (Constulose) pantoprazole 40 mg tablet,delayed 1 tab PO DAILY 11/11/21 10/17/22 release propranolol 10 mg tablet 1 tab PO TID 11/11/21 10/17/22 topiramate 200 mg tablet (Topamax) 1 tab PO BID 11/11/21 10/17/22 zolpidem 10 mg tablet (Ambien) 1 tab PO BEDTIME 11/11/21 10/17/22 fluoxetine 20 mg capsule (Prozac) 3 cap PO DAILY 02/06/22 10/17/22 furosemide 40 mg tablet 1 tab PO DAILY 10/17/22 10/17/22 melatonin 10 mg-theanine 5.5 mg 1 tab PO BEDTIME PRN Insomnia 10/17/22 10/17/22 tablet risperidone 1 mg tablet 1 tab PO BEDTIME 10/17/22 10/17/22 spironolactone 100 mg tablet 1 tab PO DAILY 10/17/22 10/17/22 tamsulosin 0.4 mg capsule 0.4 mg PO BEDTIME 10/17/22 10/17/22 Allergies Allergy/AdvReac Type Severity Reaction Status Date / Time Fish Containing Products Allergy Severe THROAT Verified 12/06/21 15:50 SWELLING peanut [Peanut] Allergy Severe THROAT Verified 12/06/21 15:50 SWELLING Review of Systems 2 Constitutional: Constitutional: Reports no additional constitutional complaints, Denies chills, Denies fever(s) and Denies night sweats Eyes: Eyes: Reports no additional eye complaints, Denies blurry vision, Denies change in vision, Denies diplopia, Denies eye discharge, Denies loss of vision and Denies eye pain ENT: Denies dizziness Cardiovascular: Cardiovascular: Reports no additional cardiovascular complaints, Denies chest pain, Denies lightheadedness, Denies Loss of Consciousness and Denies dyspnea Respiratory: Respiratory: Reports no additional respiratory complaints and Denies dyspnea Gastrointestinal: Gastrointestinal: Reports no additional gastrointestinal complaints, Denies abdominal pain, Denies melena, Denies hematochezia, Denies change in bowel habits and Denies change in stool character Genitourinary: Genitourinary: Reports no additional male genitourinary complaints, Denies hematuria, Denies oliguria, Denies difficulty urinating, Denies dysuria, Denies urinary frequency, Denies urinary hesitancy, Denies urinary incontinence and Denies urinary urgency Musculoskeletal: Musculoskeletal: Reports no additional musculoskeletal complaints, Denies numbness and Denies tingling Neurologic: Denies dizziness, Denies loss of vision, Denies numbness and Denies tingling Psychiatric: Psychiatric: Reports depression, Denies homicidal ideation and Reports suicidal ideation Endocrine: Endocrine: Reports no additional endocrine complaints Hematologic/Lymphatic: Hematologic/Lymphatic: Reports no additional hematologic/lymphatic complaints Allergic/Immunologic: Allergic/Immunologic: Reports no additional allergic/immunologic complaints PMFSH Past Medical History Attestation statement: The following information was validated with the patient. Source: old records reviewed and nursing notes reviewed Onset Date is defined in the Problem List Problems that require an onset date and time if occurred within 24 hrs of arrival to the ED Aortic Dissection and Rupture; Neurologic impairment; Cardiopulmonary Arrest; Endotracheal Intubation; Insertion or Replacement of Mechanical Circulatory Assist Device Medical History Acute hyponatremia Hyponatremia NATHANIEL (acute kidney injury) Acute metabolic encephalopathy Falls Alcoholic cirrhosis of liver with ascites Prostate cancer Depression Hyperlipidemia Hypertension Anxiety Social History Social History Household Members: Other Household Members Other:: fiancee Housing: Condominium Do you presently have visiting nurse or other home services: Yes Alcohol intake: former Patient Tobacco Use Status: Former Tobacco user Tobacco use type: Cigarette Advance Directives: Yes Advance Directives on File: Yes Advance Directives Date on File: 11/11/21 service: No Current occupational status: disabled Physical Exam ED Vital Signs: Vital Signs - 24 hr 10/27/23 09:02 10/27/23 13:20 Temperature 98.1 F 98.1 F Pulse Rate 63 59 Respiratory Rate 16 16 Blood Pressure 105/47 L 98/54 L Pulse Oximetry 99 100 Oxygen Delivery Method Room Air Room Air BMI result Body Mass Index 29.7 Const General: cooperative, no acute distress, alert and awake Nutritional Appearance: well nourished Orientation/consciousness: patient oriented x3 Limitations: no limitations HENMT Head: Yes normal to inspection and Yes atraumatic Ears: hearing grossly normal bilaterally and external ears normal General nose exam: Normal external nose present, no nasal discharge noted and no epistaxis Face and sinus: Yes normal facial exam, No abrasion and No laceration Mouth: Normal oral and palatal mucosa present, no drooling and no muffled voice Eyes General: appearance normal, both eyes and all related structures Periorbital: periorbital findings normal Eyelids: Yes eyelids normal Conjunctivae: conjunctivae normal Pupils: Equal, round and reactive pupils present EOM: EOMs intact bilaterally Neck Neck: Yes normal visual inspection, Yes full ROM and Yes no lymphadenopathy Chest Chest palpation & inspection: normal inspection of the chest Resp Effort & Inspection: normal respiratory effort and able to speak in complete sentences GI Other: abdomen is chronically distended Neuro General: patient oriented x3 and moves all extremities Cranial nerves: Yes Equal, round and reactive pupils present Cognition (Neuro): normal cognition Motor exam (neuro): 5/5 motor strength present throughout Sensory Exam: Normal double simultaneous stimulation for sensation Coordination: [id number] test normal Extrem General: Yes normal to inspection, Yes full ROM and Yes capillary refill normal Psych Appearance: grossly normal Mental Status: mental status grossly normal Affect: normal affect Attitude: cooperative Thought process: Normal thought process present Thought content: Normal thought content present Insight: Good insight present (Psych) Medications Administered Discontinued Medications Generic Name Dose Route Start Last Admin Trade Name Taz PRN Reason Stop Dose Admin Potassium Chloride 40 meq 10/27/23 10:16 10/27/23 11:12 Potassium Chloride Er 20 Meq Tab.Er.Prt PO 10/27/23 10:17 40 meq ONCE ONE Administration Medical Decision Making Medical Decision Making [facility] Narrative: Patient is a 58 year old assigned male at with a history of HTN, HLD, depression, anemia, alcoholism, alcoholic cirrhosis, and anxiety presenting to the emergency department today with suicidal ideation. Patient's physical exam was as noted in the physical exam portion of this note. Patient's blood work showed a chronic anemia as well as a hypokalemia of 2.9. I spoke with my attending physician, Dr. Hunter who recommended giving the patient PO potassium and continuing the patient on scheduled PO potassium while he is here. Patient's urine showed no acute process. Patient's EKG was unremarkable. Patient called the nurse into the bathroom after wiping and found bright red blood on the tissue. Patient has a known history of hemorrhoids and one appears to be bleeding at this time. No concern for acute GI bleeding given patient's current clinical presentation, work up, and physical exam. Patient's alcohol level was 306. CARE team informed me they would not be evaluating the patient until after 1630 on 10/27/2023 due to his alcohol level. I explained my physical exam findings as well as all test results to the patient and the patient's girlfriend. I answered all questions asked by the patient and the patient's girlfriend. Patient's disposition will be determined after CARE team evaluation. Differential Diagnosis Differential Diagnoses: The differential diagnosis associated with the presentation includes Suicidal ideation Hemorrhoid Bleeding hemorrhoid Alcohol abuse Alcohol use Cirrhosis Anemia Admission/Observation Consideration of admission/observation: Escalation of care including admission/observation considered Patient's disposition will be determined after CARE team evaluation. Lab Data [facility] Lab Attestation statement: I reviewed the patient's lab results. My interpretation of these results are in the MDM Rationale portion of this note. 10/27/23 09:29 10/27/23 09:29 Labs: Lab Results 01/12/24 01/12/24 Range/Units 09:28 09:29 WBC 6.5 (4.8-10.8) X10*3/uL RBC 3.83 L (4.60-5.80) X10*6/uL Hgb 8.6 L D (14.0-18.0) g/dl Hct 28.4 L D (42.0-52.0) % MCV 74.2 L (80.0-98.0) fL MCH 22.5 L (27.0-33.0) pg MCHC 30.3 L (31.0-36.0) g/dl RDW 20.8 H (11.0-16.0) % Plt Count 184 D (160-400) X10*3/uL MPV 9.7 (9.4-12.4) fL Immature Gran % (Auto) 0.5 H (0.0-0.4) % Neut % (Auto) 54.5 (45-73) % Lymph % (Auto) 29.4 (20-40) % [place] % (Auto) 9.0 (2-11) % Eos % (Auto) 5.1 H (0-4) % Baso % (Auto) 1.5 (0-2) % Lymph # (Auto) 1.9 (1.2-4.9) X10*3/uL [place] # (Auto) 0.6 (0.1-1.2) X10*3/uL Eos # (Auto) 0.3 (0.0-0.4) X10*3/uL Baso # (Auto) 0.1 (0.0-0.2) X10*3/uL Abs Immat Gran (auto) 0.03 (0.00-0.03) X10*3/uL Absolute Neuts (auto) 3.6 (2.0-8.3) x10*3/uL Absolute Nucleated RBC 0.000 (0.0-0.012) X10*3/uL Nucleated RBC % (auto) 0.0 (0.0-0.2) /100WBC Sodium 139 (135-145) mmol/L Potassium 2.9 L* (3.3-5.1) mmol/L Chloride 104 (96-108) mmol/L Carbon Dioxide 26 (22-29) mmol/L Anion Gap 12 (12-20) BUN 14 (9-16) mg/dL Creatinine 1.08 (0.5-1.4) mg/dL Estim Creat Clear Calc 80.6 Estimated GFR > 60 Random Glucose 116 H (60-115) mg/dL Calcium 8.0 L (8.4-10.2) mg/dL Total Bilirubin 0.8 (0.0-1.0) mg/dL AST 41 H (5-37) U/L ALT 10 (0-40) U/L Alkaline Phosphatase 239 H (39-117) U/L Total Protein 8.3 H (6.5-8.0) g/dL Albumin 3.0 L (3.5-5.0) g/dL Urine Color Yellow Urine Appearance Clear Urine pH 6.0 (5.0-9.0) Ur Specific [place] 1.010 (1.005-1.025) Urine Protein Negative (Neg-Trace) mg/dL Urine Glucose (UA) Negative (Negative) mg/dL Urine Ketones Negative (Negative) mg/dL Urine Blood Negative (Negative) Urine Nitrite Negative (Negative) Ur Leukocyte Esterase Negative (Negative) Salicylates < 5.0 L (15-30) mg/dL Urine Opiates Screen Not Detected (Not Detect) Urine Fentanyl Screen Not Detected (Not Detect) Acetaminophen < 3 (<30) mcg/mL Ur Barbiturates Screen Not Detected (Not Detect) Ur Phencyclidine Scrn Not Detected (Not Detect) Ur Amphetamines Screen Not Detected (Not Detect) U Benzodiazepines Scrn Not Detected (Not Detect) Urine Cocaine Screen Not Detected (Not Detect) U Marijuana (THC) Screen POSITIVE H (Not Detect) Ethyl Alcohol 306 H* mg/dL COVID-19 ([place]) Negative (Negative) COVID-19 Clin Com See Note Independent Interpretation I performed an independent interpretation of an: EKG Interpretation: Vent. Rate: 057 BPM Atrial Rate: 057 BPM P-R Int: 204 ms QRS Dur: 110 ms QT Int: 498 ms P-R-T Axes: 048 -09 054 degrees QTc Int: 484 ms Sinus bradycardia Cannot rule out Anterior infarct , age undetermined Abnormal ECG When compared with ECG of 06-DEC-2021 16:01, No significant change was found DD/ [id number] Independent Historian Clinical information obtained from an independent historian. History obtained from or confirmed by: EMS (EMS provided additional history and confirmed the history provided by the patient.) and Other (patient's girlfriend provided additional history and confirmed the history provided by the patient.) Discharge Plan Discharge Clinical Impression: Acute hypokalemia, Feeling suicidal Patient Disposition: Still a Patient Prescriptions: No Action propranolol 10 mg tablet 1 tab PO TID topiramate [Topamax] 200 mg tablet 1 tab PO BID zolpidem [Ambien] 10 mg tablet 1 tab PO BEDTIME pantoprazole 40 mg tablet,delayed release (DR/EC) 1 tab PO DAILY lactulose [Constulose] 10 gram/15 mL solution 30 ml PO TID PRN (Reason: Constipation) risperidone 1 mg tablet 1 tab PO BEDTIME melatonin-theanine 10-5.5 mg tablet 1 tab PO BEDTIME PRN (Reason: Insomnia) tamsulosin 0.4 mg capsule 0.4 mg PO BEDTIME furosemide 40 mg tablet 1 tab PO DAILY spironolactone 100 mg tablet 1 tab PO DAILY fluoxetine [Prozac] 20 mg capsule 3 cap PO DAILY Interventions: [place]-Suicide Risk Severity Scale Last Done: 10/27/23 10:39
[2023-10-27 09:41] LABS: MANUAL DIFF FLAG NO
[2023-10-27 09:42] LABS: Basophils Absolute Auto 0.1 X10*3/uL (0.0-0.2); Basophils Percent Auto 1.5 % (0-2); Eosinophils Absolute Auto 0.3 X10*3/uL (0.0-0.4); Eosinophils Percent Auto 5.1 % (0-4); Hematocrit 28.4 % (42.0-52.0); Hemoglobin 8.6 g/dl (14.0-18.0); Imm Gran Abs Auto 0.03 X10*3/uL (0.00-0.03); Imm Gran Pct Auto 0.5 % (0.0-0.4); Lymphocytes Absolute Auto 1.9 X10*3/uL (1.2-4.9); Lymphocytes Percent Auto 29.4 % (20-40); Mean Corpuscular HGB Conc 30.3 g/dl (31.0-36.0); Mean Corpuscular Hemoglobin 22.5 pg (27.0-33.0); Mean Corpuscular Volume 74.2 fL (80.0-98.0); Mean Platelet Volume 9.7 fL (9.4-12.4); Monocytes Absolute Auto 0.6 X10*3/uL (0.1-1.2); Neutrophils Absolute Auto 3.6 x10*3/uL (2.0-8.3); Neutrophils Percent Auto 54.5 % (45-73); Platelet Count 184 X10*3/uL (160-400); Red Blood Count 3.83 X10*6/uL (4.60-5.80); Red Cell Distribution Width 20.8 % (11.0-16.0); White Blood Count 6.5 X10*3/uL (4.8-10.8)
[2023-10-27 09:46] LABS: Appearance Urine Clear; Color Urine Yellow; Glucose Urine UA Negative (Negative); Leukocyte Esterase Urine Negative (Negative); Nitrite Urine Negative (Negative); Urine Blood Negative (Negative); Urine Ketones Negative (Negative); Urine Protein Negative (Neg-Trace)
[2023-10-27 09:57] LABS: Amphetamine Screen Urine Not Detected (Not Detect); Barbiturates, Urine Not Detected (Not Detect); Benzodiazepines Screen Urine Not Detected (Not Detect); COVID-19 Test Negative (Negative); Cannabinoid Screen Urine POSITIVE (Not Detect); Cocaine Screen Urine Not Detected (Not Detect); Fentanyl, urine Not Detected (Not Detect); IDNOW Serial# 08D9AD1C; Opiate Screen Urine Not Detected (Not Detect); Phencyclidine Screen Urine Not Detected (Not Detect)
[2023-10-27 10:03] LABS: Acetaminophen LAB < 3 mcg/mL (<30); Salicylate < 5.0 mg/dL (15-30)
--- NOTE | 2023-10-27 10:05 | MHC.EDTECH ---
Pt changed over into pod attire. Necklace OK to stay on per RN. Belongings placed in POD locker #7.
[2023-10-27 10:09] LABS: Alanine Aminotransferase 10 U/L (0-40); Alkaline Phosphatase 239 U/L (39-117); Anion Gap 12 (12-20); Aspartate Amino Transferase 41 U/L (5-37); Bilirubin Total 0.8 mg/dL (0.0-1.0); Blood Urea Nitrogen 14 mg/dL (9-16); Carbon Dioxide 26 mmol/L (22-29); Chloride 104 mmol/L (96-108); Creatinine Clr Calc Pharmacy 80.6; Estimated Glomerular Filt Rate > 60; Ethanol 306 mg/dL; Glucose Random 116 mg/dL (60-115); Potassium 2.9 mmol/L (3.3-5.1); Sodium 139 mmol/L (135-145); Total Protein 8.3 g/dL (6.5-8.0)
--- NOTE | 2023-10-27 10:40 | PC.NURSE ---
patient observer at bedside for patient safety. called this RN to bathroom to show bright red blood on toilet paper, history of hemorrhoids - provider aware.
[2023-10-27] MEDS: Potassium Chloride ER 20 MEQ TAB.ER.PRT 40 MEQ PO (11:12)
[2023-10-27 13:20] VITALS: BP 98/54; PULSE 59; RESP 16; TEMP 36.7; O2SAT 100
[2023-10-27] MEDS: LORazepam 1 MG TABLET 2 MG PO (14:44)
--- NOTE | 2023-10-27 14:48 | PC.NURSE ---
late entry: patient requesting to leave and go home, that being here is making him feel worse. explained that he needs to be cleared by care team in order to be discharged. offered medication to help him relax, accepting PO ativan. patient observer remains at bedside.
--- NOTE | 2023-10-27 16:12 | PC.NURSE ---
patient now denying si at this time, stating he was just feeling down this morning and he is feeling much better. patient observer remains in place for patient safety. able to ambulate independently to the bathroom with steady gait.
== END 2023-10-27 17:44 | disposition home or self-care (01) ==
PROVIDERS: Physician Assistant Medical; Emergency Provider Emergency Medicine; PCP Internal Medicine
DX: F41.1 Generalized anxiety disorder (principal); R45.851 Suicidal ideations; R00.1 Bradycardia, unspecified; I10 Essential (primary) hypertension; E87.6 Hypokalemia; Z87.891 Personal history of nicotine dependence; Z79.899 Other long term (current) drug therapy; Z11.52 Encounter for screening for COVID-19; Z20.828 Contact with and (suspected) exposure to other viral communicable diseases
CPT/HCPCS: 80053; 80143; 80179; 80307; 81003; 85025; 87635; 93005; 99285; S9485

== ENCOUNTER → 2023-10-27 09:13 | Outpatient (BNV) | payer MEDICARE, SELFPAY | PROVIDERS: Emergency Provider Emergency Medicine; PCP Internal Medicine; Visit Provider Internal Medicine Cardiovascular Disease | DX: R00.1 Bradycardia, unspecified (principal); R94.31 Abnormal electrocardiogram [ECG] [EKG] | CPT/HCPCS: 93010 ==

== ENCOUNTER 2023-11-13 09:30 | Emergency (ER) | payer MEDICARE, SELFPAY ==
[2023-11-13 09:36] VITALS: BP 109/50; PULSE 63; RESP 18; TEMP 36.3; O2SAT 99; BMI 28.9
--- NOTE | 2023-11-13 09:53 | ED.PSYCH ---
HPI - Psych General Chief Complaint: Psychiatric Symptoms Stated Complaint: depression Time Seen by Provider: 11/13/23 09:46 Source: patient and old records reviewed Mode of arrival: EMS Limitations: no limitations History of Present Illness HPI Narrative: 58 yo male with PMH of HTN, HLD, NATHANIEL, anxiety, GIB, ascites, alcoholism, ETOH cirrhosis, seen on 10/27 for ETOH intoxication depression and SI - was ultimately discharged K at that time was 2.9 he comes in today with c/o no will to live. He doesn't want to kill himself but he is so depressed he cannot manage anymore. He saw a therapist and is supposed to start seroquel today. He has not been hospitalized for mental health in the past. He has not tried to kill himself. He is not drinking today. MD complaint: feels depressed Onset (ago): month(s) Duration: getting worse History of same: Yes Relieving factors: none Exacerbating factors: other Context: significant life stressor Associated psychiatric symptoms: depression Associated symptoms: denies other symptoms Treatments prior to arrival: none Related Data Home Medications Medication Instructions Recorded Confirmed lactulose 10 gram/15 mL oral 30 ml PO TID PRN Constipation 11/11/21 10/17/22 solution (Constulose) pantoprazole 40 mg tablet,delayed 1 tab PO DAILY 11/11/21 10/17/22 release propranolol 10 mg tablet 1 tab PO TID 11/11/21 10/17/22 topiramate 200 mg tablet (Topamax) 1 tab PO BID 11/11/21 10/17/22 zolpidem 10 mg tablet (Ambien) 1 tab PO BEDTIME 11/11/21 10/17/22 fluoxetine 20 mg capsule (Prozac) 3 cap PO DAILY 02/06/22 10/17/22 furosemide 40 mg tablet 1 tab PO DAILY 10/17/22 10/17/22 risperidone 1 mg tablet 2 mg PO BEDTIME 10/17/22 10/17/22 spironolactone 100 mg tablet 1 tab PO DAILY 10/17/22 10/17/22 tamsulosin 0.4 mg capsule 0.4 mg PO BEDTIME 10/17/22 10/17/22 hydroxyzine HCl 25 mg tablet 25 - 50 mg PO BID PRN anxiety 11/13/23 melatonin 10 mg tablet 10 mg PO BEDTIME PRN Insomnia 11/13/23 mirtazapine 15 mg tablet 15 mg PO BEDTIME 11/13/23 ondansetron 4 mg disintegrating 4 mg PO Q8H 11/13/23 tablet quetiapine 25 mg tablet (Seroquel) 12.5 mg PO BID PRN anxiety 11/13/23 risperidone 0.25 mg tablet 0.25 mg PO DAILY PRN Agitation 11/13/23 Previous Rx's Medication Instructions Recorded potassium chloride 10 mEq 10 meq PO DAILY #20 caps 11/13/23 capsule,extended release Allergies Allergy/AdvReac Type Severity Reaction Status Date / Time Fish Containing Products Allergy Severe THROAT Verified 12/06/21 15:50 SWELLING peanut [Peanut] Allergy Severe THROAT Verified 12/06/21 15:50 SWELLING Review of Systems Review of Systems: Constitutional : No Fever, No Chills ENT/Mouth : No Ear Pain, No Nasal Congestion, No sore throat Eyes: No Eye Pain, No Swelling, No Redness Cardiovascular : No Chest Pain, No SOB Respiratory : No Cough, No Sputum, No Dyspnea Gastrointestinal : No Nausea, No Vomiting, No Diarrhea, No Hematochezia, No Melena Genitourinary : No Dysuria, No Urinary Frequency, No Hematuria Musculoskeletal : No Myalgias Skin : No Skin Lesions, No rash Neuro : No Weakness, No Numbness, No Paresthesias, No Dizziness, No Headache Psych : positive Anxiety, positive Depression, no SI/HI Heme/Lymph: No Lymphadenopathy Endocrine : No Polyuria, No Polydipsia All other systems reviewed and are negative PMFSH Past Medical History Attestation statement: The following information was validated with the patient. Source: old records reviewed Medical History Acute hyponatremia Hyponatremia NATHANIEL (acute kidney injury) Acute metabolic encephalopathy [place] Alcoholic cirrhosis of liver with ascites Prostate cancer Depression Hyperlipidemia Hypertension Anxiety Social History Social History Household Members: Other Household Members Other:: fiancee Housing: Condominium Do you presently have visiting nurse or other home services: Yes Alcohol intake: former Patient Tobacco Use Status: Former Tobacco user Tobacco use type: Cigarette Advance Directives: Yes Advance Directives on File: Yes Advance Directives Date on File: 11/11/21 service: No Current occupational status: disabled Physical Exam Vital Signs: Vital Signs: Last Vital Signs Temp 97.3 F 11/13/23 09:36 Pulse 67 11/13/23 13:57 Resp 16 11/13/23 13:57 BP 96/59 L 11/13/23 13:57 Pulse Ox 96 11/13/23 13:57 O2 Del Method Room Air 11/13/23 13:57 BMI result Body Mass Index 28.9 Appearance: Alert. Oriented X3. No acute distress. Eyes: Pupils equal, round and reactive to light. ENT: Pharynx normal. Neck: Normal inspection. Neck supple. CVS: Normal heart rate and rhythm. Pulses normal. Respiratory: No respiratory distress. Breath sounds normal. Abdomen: Soft and non-tender. Skin: Skin warm and dry. Normal skin color. Normal skin turgor. Extremities: trace pitting lower extremity edema. Neuro: Oriented X 3. No motor deficit. No sensory deficit. CN2-12 intact Course Course Course Narrative: Physician observation started at 1242pm. Patient placed in physician observation because the patient needed more time for IV K and CARE team assessment At the time observation was started the patient's vitals were stable, patient is alert and oriented, Neuro: nonfocal, CV RRR, Lungs clear Reevaluation(s) Reevaluation #1: K from chronic diuretic use Reevaluation #2: some nausea chronically low BP - albumin and IV reglan/zofran and PO phenobarb patient is denying ETOH in front of his partner Reevaluation #3: signed out to Dr. Villalta pending repeat K and CARE team consult responded well to reglan and phenobarb he is voluntary he has no SI and adamantly denies he would kill himself as he doesn't believe in it. he can go if he chooses to after K Medications Administered Generic Name Dose Route Start Last Admin Trade Name Freq PRN Reason Stop Dose Admin Potassium Chloride 10 meq in 100 mls @ 100 mls/hr 11/13/23 12:00 11/13/23 15:08 Potassium Chloride/H20 IV 11/13/23 15:59 100 mls/hr Q1H KULWANT Administration Discontinued Medications Generic Name Dose Route Start Last Admin Trade Name Freq PRN Reason Stop Dose Admin Albumin Human 100 mls @ 100 mls/hr 11/13/23 14:09 11/13/23 15:08 Kedbumin 25 % IV 11/13/23 15:08 100 mls/hr ONCE ONE Administration Metoclopramide HCl 5 mg 11/13/23 14:32 11/13/23 15:09 Metoclopramide Hcl 10 Mg/2 Ml Vial IVPUSH 11/13/23 14:33 5 mg ONCE ONE Administration Ondansetron HCl 4 mg 11/13/23 13:29 11/13/23 13:34 Ondansetron Hcl 4 Mg/2 Ml Vial IVPUSH 11/13/23 13:30 4 mg ONCE ONE Administration Phenobarbital 60 mg 11/13/23 14:32 11/13/23 14:40 Phenobarbital 30 Mg Tablet PO 11/13/23 14:33 60 mg ONCE ONE Administration Potassium Chloride 40 meq 11/13/23 11:56 11/13/23 12:22 Potassium Chloride Packet 20 Meq Packet PO 11/13/23 11:57 40 meq ONCE ONE Administration Medical Decision Making Medical Decision Making MDM Narrative: 58 yo male with PMH of HTN, HLD, NATHANIEL, anxiety, GIB, ascites, alcoholism, ETOH cirrhosis, seen on 10/27 for ETOH intoxication depression and SI - was ultimately discharged here with c/o worsening depression but no SI as he will not do that he has no will to live. He is trying to see a therapist but it is not helping. Was Rx seroquel but has not started it yet. At this time no medical complaints will need labs and CARE team consult Differential Diagnosis Differential Diagnoses: The differential diagnosis associated with the presentation includes depression, lyte abnormality Admission/Observation Consideration of admission/observation: Escalation of care including admission/observation considered observe until K done will recheck Consult Healthcare Provider Management of the patient was discussed with: Behavioral Health Provider Lab Data [facility] Lab Attestation statement: I reviewed the patient's lab results. 11/13/23 11:25 11/13/23 11:25 Labs: Lab Results 11/13/23 Range/Units 11:25 WBC 5.5 (4.8-10.8) X10*3/uL RBC 3.24 L (4.60-5.80) X10*6/uL Hgb 7.6 L (14.0-18.0) g/dl Hct 24.7 L (42.0-52.0) % MCV 76.2 L (80.0-98.0) fL MCH 23.5 L (27.0-33.0) pg MCHC 30.8 L (31.0-36.0) g/dl RDW 21.5 H (11.0-16.0) % Plt Count 125 L D (160-400) X10*3/uL MPV 10.2 (9.4-12.4) fL Immature Gran % (Auto) 0.4 (0.0-0.4) % Neut % (Auto) 60.5 (45-73) % Lymph % (Auto) 24.0 (20-40) % Imperial % (Auto) 11.0 (2-11) % Eos % (Auto) 3.6 (0-4) % Baso % (Auto) 0.5 (0-2) % Lymph # (Auto) 1.3 (1.2-4.9) X10*3/uL Imperial # (Auto) 0.6 (0.1-1.2) X10*3/uL Eos # (Auto) 0.2 (0.0-0.4) X10*3/uL Baso # (Auto) 0.0 (0.0-0.2) X10*3/uL Abs Immat Gran (auto) 0.02 (0.00-0.03) X10*3/uL Absolute Neuts (auto) 3.4 (2.0-8.3) x10*3/uL Absolute Nucleated RBC 0.000 (0.0-0.012) X10*3/uL Nucleated RBC % (auto) 0.0 (0.0-0.2) /100WBC PT 14.2 H (11.1-13.3) SEC INR 1.2 H (0.9-1.1) Sodium 139 (135-145) mmol/L Potassium 2.6 L* (3.3-5.1) mmol/L Chloride 105 (96-108) mmol/L Carbon Dioxide 25 (22-29) mmol/L Anion Gap 12 (12-20) BUN 11 (9-16) mg/dL Creatinine 1.19 (0.5-1.4) mg/dL Estim Creat Clear Calc 72.2 Estimated GFR > 60 Random Glucose 104 (60-115) mg/dL Calcium 7.7 L (8.4-10.2) mg/dL Magnesium 2.4 (1.6-2.6) mg/dL Total Bilirubin 1.0 (0.0-1.0) mg/dL Direct Bilirubin 0.6 H (0.0-0.5) mg/dL AST 64 H (5-37) U/L ALT 15 (0-40) U/L Alkaline Phosphatase 282 H (39-117) U/L Ammonia 33 (13-55) umol/L Total Protein 7.3 (6.5-8.0) g/dL Albumin 2.5 L (3.5-5.0) g/dL Ethyl Alcohol 164 mg/dL COVID-19 ([facility]) Negative (Negative) COVID-19 Clin Com See Note Independent Interpretation I performed an independent interpretation of an: EKG Interpretation: Rate: 67 Rhythm: NSR [place]: left Normal P waves. Normal LADAN. Normal QRS complex. ST T wave : no GODWIN, nonspecific ST T wave changes qTC: 486 prior studies: no acute ischemia The study has been interpreted contemporaneously by me. . Independent Historian Clinical information obtained from an independent historian. History obtained from or confirmed by: Spouse External Record Review External record reviewed: Inpatient record Critical Care Time Critical Care Time Critical Care Time: Yes Total Critical Care Time: 60 Attestation: repeat IV K via IV with tele monitoring for hypokalemia I attest to this time spent taking care of the patient Discharge Plan Discharge Clinical Impression: Acute hypokalemia Depression Qualifiers: Depression Type: unspecified Qualified Code(s): F32.A - Depression, unspecified Alcohol intoxication Qualifiers: Complication of substance-induced condition: uncomplicated Qualified Code(s): F10.920 - Alcohol use, unspecified with intoxication, uncomplicated Patient Disposition: Still a Patient Instructions: Hypokalemia (ED), Depression (ED), Abuse of Alcohol (ED) Additional Instructions: your potassium was low make sure you are taking your potassium supplement daily. return for thoughts of self harm or any other concerns. stop drinking alcohol. follow up with your therapist Prescriptions: New potassium chloride 10 mEq capsule, extended release 10 meq PO DAILY Qty: 20 0RF No Action propranolol 10 mg tablet 1 tab PO TID topiramate [Topamax] 200 mg tablet 1 tab PO BID zolpidem [Ambien] 10 mg tablet 1 tab PO BEDTIME pantoprazole 40 mg tablet,delayed release (DR/EC) 1 tab PO DAILY lactulose [Constulose] 10 gram/15 mL solution 30 ml PO TID PRN (Reason: Constipation) risperidone 1 mg tablet 2 mg PO BEDTIME tamsulosin 0.4 mg capsule 0.4 mg PO BEDTIME furosemide 40 mg tablet 1 tab PO DAILY spironolactone 100 mg tablet 1 tab PO DAILY fluoxetine [Prozac] 20 mg capsule 3 cap PO DAILY quetiapine [Seroquel] 25 mg tablet 12.5 mg PO BID PRN (Reason: anxiety) risperidone 0.25 mg tablet 0.25 mg PO DAILY PRN (Reason: Agitation) hydroxyzine HCl 25 mg tablet 25 - 50 mg PO BID PRN (Reason: anxiety) mirtazapine 15 mg tablet 15 mg PO BEDTIME ondansetron 4 mg tablet,disintegrating 4 mg PO Q8H melatonin 10 mg tablet 10 mg PO BEDTIME PRN (Reason: Insomnia)
[2023-11-13 11:31] LABS: MANUAL DIFF FLAG NO
[2023-11-13 11:34] LABS: Basophils Percent Auto 0.5 % (0-2); Eosinophils Absolute Auto 0.2 X10*3/uL (0.0-0.4); Eosinophils Percent Auto 3.6 % (0-4); Hematocrit 24.7 % (42.0-52.0); Hemoglobin 7.6 g/dl (14.0-18.0); Imm Gran Abs Auto 0.02 X10*3/uL (0.00-0.03); Imm Gran Pct Auto 0.4 % (0.0-0.4); Lymphocytes Absolute Auto 1.3 X10*3/uL (1.2-4.9); Mean Corpuscular HGB Conc 30.8 g/dl (31.0-36.0); Mean Corpuscular Hemoglobin 23.5 pg (27.0-33.0); Mean Corpuscular Volume 76.2 fL (80.0-98.0); Mean Platelet Volume 10.2 fL (9.4-12.4); Monocytes Absolute Auto 0.6 X10*3/uL (0.1-1.2); Neutrophils Absolute Auto 3.4 x10*3/uL (2.0-8.3); Neutrophils Percent Auto 60.5 % (45-73); Red Blood Count 3.24 X10*6/uL (4.60-5.80); Red Cell Distribution Width 21.5 % (11.0-16.0); White Blood Count 5.5 X10*3/uL (4.8-10.8)
[2023-11-13 11:40] LABS: Ammonia 33 umol/L (13-55)
[2023-11-13 11:42] LABS: Platelet Count 125 X10*3/uL (160-400)
[2023-11-13 11:50] LABS: COVID-19 Test Negative (Negative); IDNOW Serial# 08D9AD1C; INTERNATIONAL NORM RATIO 1.2 (0.9-1.1); Prothrombin Time 14.2 SEC (11.1-13.3)
--- NOTE | 2023-11-13 11:56 | ECG_ITS ---
Test Reason : LOW POTASSIUM Blood Pressure : / mmHG Vent. Rate : 067 BPM Atrial Rate : 067 BPM P-R Int : 184 ms QRS Dur : 082 ms QT Int : 460 ms P-R-T Axes : 105 -13 003 degrees QTc Int : 486 ms Poor data quality Normal sinus rhythm Inferior infarct , age undetermined Abnormal ECG When compared with ECG of 27-OCT-2023 09:38, Poor data quality in current ECG precludes serial comparison Referred By: Bere Jennings Electronically Signed By:ELIECER RAWLS MD
[2023-11-13 11:57] LABS: Alanine Aminotransferase 15 U/L (0-40); Albumin Level 2.5 g/dL (3.5-5.0); Alkaline Phosphatase 282 U/L (39-117); Anion Gap 12 (12-20); Aspartate Amino Transferase 64 U/L (5-37); Bilirubin Direct 0.6 mg/dL (0.0-0.5); Blood Urea Nitrogen 11 mg/dL (9-16); Calcium 7.7 mg/dL (8.4-10.2); Carbon Dioxide 25 mmol/L (22-29); Chloride 105 mmol/L (96-108); Creatinine Clr Calc Pharmacy 72.2; Estimated Glomerular Filt Rate > 60; Ethanol 164 mg/dL; Glucose Random 104 mg/dL (60-115); Magnesium 2.4 mg/dL (1.6-2.6); Potassium 2.6 mmol/L (3.3-5.1); Sodium 139 mmol/L (135-145); Total Protein 7.3 g/dL (6.5-8.0)
[2023-11-13] MEDS: Potassium Chloride Packet 20 MEQ PACKET 40 MEQ PO (12:22)
[2023-11-13] MEDS: Potassium Chloride/H20 10 MEQ/100 ML PIGGYBACK 100 MEQ IV ×4 (12:23→17:04)
[2023-11-13] MEDS: ondansetron HCL 4 MG/2 ML VIAL IVPUSH (13:34)
--- NOTE | 2023-11-13 13:36 | MHC.CARE ---
Patient's therapist called this morning after meeting with patient, she recommended he come to the ED for evaluation.
--- NOTE | 2023-11-13 13:42 | PC.NURSE ---
pt vomiting, he is shaking, assisted to a bedside commode. he was medicated as charted
[2023-11-13 13:57] VITALS: BP 96/59; PULSE 67; RESP 16; O2SAT 96
[2023-11-13] MEDS: PHENobarbitaL 30 MG TABLET 60 MG PO (14:40)
[2023-11-13] MEDS: Albumin Human 25 % 100 ML IV (15:08)
[2023-11-13] MEDS: Metoclopramide HCl 10 MG/2 ML VIAL 5 MG IVPUSH (15:09)
[2023-11-13 17:46] LABS: Potassium 3.7 mmol/L (3.3-5.1)
[2023-11-13 18:12] VITALS: BP 114/48; PULSE 66; RESP 18; TEMP 37.1; O2SAT 97
--- NOTE | 2023-11-13 18:15 | PC.NURSE ---
potassium infused, requesting to leave at this time. patient appears tremulous. visitor remains at bedside
[2023-11-13 18:40] LABS: Amphetamine Screen Urine Not Detected (Not Detect); Barbiturates, Urine Not Detected (Not Detect); Benzodiazepines Screen Urine Not Detected (Not Detect); Cannabinoid Screen Urine POSITIVE (Not Detect); Cocaine Screen Urine Not Detected (Not Detect); Fentanyl, urine Not Detected (Not Detect); Opiate Screen Urine Not Detected (Not Detect); Phencyclidine Screen Urine Not Detected (Not Detect)
[2023-11-13] MEDS: LORazepam 1 MG TABLET 2 MG PO (19:09)
--- NOTE | 2023-11-13 19:20 | PC.NURSE ---
patient medicated per the MAR, stating that these tremors are from childhood .
[2023-11-13 19:46] VITALS: BP 125/48; PULSE 63; RESP 16; O2SAT 96
== END 2023-11-13 20:33 | disposition home or self-care (01) ==
PROVIDERS: Emergency Provider Emergency Medicine; PCP Internal Medicine
DX: E87.6 Hypokalemia (principal); F10.120 Alcohol abuse with intoxication, uncomplicated; Y90.6 Blood alcohol level of 120-199 mg/100 ml; F32.A Depression, unspecified; F41.9 Anxiety disorder, unspecified; K70.31 Alcoholic cirrhosis of liver with ascites; Z11.52 Encounter for screening for COVID-19; I10 Essential (primary) hypertension; E78.5 Hyperlipidemia, unspecified; Z79.899 Other long term (current) drug therapy
CPT/HCPCS: 36415; 80048; 80076; 80307; 82140; 83735; 84132; 85025; 85610; 87635; 93005; 96365; 96366; 96375; 99285; J2405; J2765; J3480; P9047; S9485

== ENCOUNTER → 2023-11-13 11:56 | Outpatient (BNV) | payer MEDICARE, SELFPAY | PROVIDERS: Emergency Provider Emergency Medicine; PCP Internal Medicine; Visit Provider Internal Medicine Cardiovascular Disease | DX: E87.6 Hypokalemia (principal) | CPT/HCPCS: 93010 ==

== ENCOUNTER 2023-11-30 11:16 | Emergency (ER) | payer MEDICARE, SELFPAY ==
--- NOTE | 2023-11-30 11:20 | ED.GENADULT ---
HPI - General Adult General Chief complaint: Psychiatric Symptoms Stated complaint: SI,ANXIETY AND DEPRESSION Time Seen by Provider: 11/30/23 11:20 Source: patient and EMS Mode of arrival: EMS Limitations: no limitations History of Present Illness HPI narrative: Patient is a 58 year old assigned male at with a history of HTN, HLD, depression, alcohol abuse, and anxiety presenting to the emergency department today with suicidal ideation and increased anxiety. Patient states that he does not feel like he can go on any longer and he wants to . Patient states that he does not have a specific plan for this but he no longer wants to be around. Patient denies any dizziness, lightheadedness, abdominal pain, nausea, vomiting, fever, chills, blurry vision, double vision, loss of vision, chest pain, difficulty breathing, shortness of breath, back pain, night sweats, pain with urination, increased urinary frequency, increased urinary urgency, blood in his urine or stool, syncope or a near syncopal episode, recent trauma or falls, bowel incontinence, bladder incontinence, bowel retention, bladder retention, or any other complaints at this time. Onset (ago): day(s) Relieving factors: none Exacerbating factors: none Associated symptoms: denies other symptoms Treatments prior to arrival: none Related Data Home Medications Medication Instructions Recorded Confirmed lactulose 10 gram/15 mL oral 30 ml PO TID PRN Constipation 11/11/21 10/17/22 solution (Constulose) pantoprazole 40 mg tablet,delayed 1 tab PO DAILY 11/11/21 10/17/22 release propranolol 10 mg tablet 1 tab PO TID 11/11/21 10/17/22 topiramate 200 mg tablet (Topamax) 1 tab PO BID 11/11/21 10/17/22 zolpidem 10 mg tablet (Ambien) 1 tab PO BEDTIME 11/11/21 10/17/22 fluoxetine 20 mg capsule (Prozac) 3 cap PO DAILY 02/06/22 10/17/22 furosemide 40 mg tablet 1 tab PO DAILY 10/17/22 10/17/22 risperidone 1 mg tablet 2 mg PO BEDTIME 10/17/22 10/17/22 spironolactone 100 mg tablet 1 tab PO DAILY 10/17/22 10/17/22 tamsulosin 0.4 mg capsule 0.4 mg PO BEDTIME 10/17/22 10/17/22 hydroxyzine HCl 25 mg tablet 25 - 50 mg PO BID PRN anxiety 11/13/23 melatonin 10 mg tablet 10 mg PO BEDTIME PRN Insomnia 11/13/23 mirtazapine 15 mg tablet 15 mg PO BEDTIME 11/13/23 ondansetron 4 mg disintegrating 4 mg PO Q8H 11/13/23 tablet quetiapine 25 mg tablet (Seroquel) 12.5 mg PO BID PRN anxiety 11/13/23 risperidone 0.25 mg tablet 0.25 mg PO DAILY PRN Agitation 11/13/23 Previous Rx's Medication Instructions Recorded potassium chloride 10 mEq 10 meq PO DAILY #20 caps 11/13/23 capsule,extended release Allergies Allergy/AdvReac Type Severity Reaction Status Date / Time Fish Containing Products Allergy Severe THROAT Verified 11/30/23 11:41 SWELLING peanut [Peanut] Allergy Severe THROAT Verified 11/30/23 11:41 SWELLING Review of Systems Constitutional: Constitutional: Reports no additional constitutional complaints, Denies chills, Denies fever(s) and Denies night sweats Eyes: Eyes: Reports no additional eye complaints, Denies blurry vision, Denies change in vision, Denies diplopia, Denies eye discharge, Denies loss of vision and Denies eye pain ENT: Denies dizziness Cardiovascular: Cardiovascular: Reports no additional cardiovascular complaints, Denies chest pain, Denies lightheadedness, Denies Loss of Consciousness and Denies dyspnea Respiratory: Respiratory: Reports no additional respiratory complaints and Denies dyspnea Gastrointestinal: Gastrointestinal: Reports no additional gastrointestinal complaints, Denies abdominal pain, Denies melena, Denies hematochezia, Denies change in bowel habits and Denies change in stool character Genitourinary: Genitourinary: Reports no additional male genitourinary complaints, Denies hematuria, Denies oliguria, Denies difficulty urinating, Denies dysuria, Denies urinary frequency, Denies urinary hesitancy, Denies urinary incontinence and Denies urinary urgency Musculoskeletal: Musculoskeletal: Reports no additional musculoskeletal complaints, Denies numbness and Denies tingling Neurologic: Denies dizziness, Denies loss of vision, Denies numbness and Denies tingling Psychiatric: Psychiatric: Reports depression, Denies homicidal ideation and Reports suicidal ideation Endocrine: Endocrine: Reports no additional endocrine complaints Hematologic/Lymphatic: Hematologic/Lymphatic: Reports no additional hematologic/lymphatic complaints Allergic/Immunologic: Allergic/Immunologic: Reports no additional allergic/immunologic complaints [facility] Past Medical History Attestation statement: The following information was validated with the patient. Source: old records reviewed and nursing notes reviewed Medical History Acute hyponatremia Hyponatremia NATHANIEL (acute kidney injury) Acute metabolic encephalopathy Falls Alcoholic cirrhosis of liver with ascites Prostate cancer Depression Hyperlipidemia Hypertension Anxiety Social History Social History Household Members: Other Household Members Other:: fiancee [facility] Do you presently have visiting nurse or other home services: Yes Alcohol intake: former Patient Tobacco Use Status: Former Tobacco user Tobacco use type: Cigarette Advance Directives: Yes Advance Directives on File: No Advance Directives Date on File: 11/11/21 service: No Current occupational status: disabled Physical Exam ED Vital Signs: Vital Signs - 24 hr 11/30/23 11:25 Temperature 98.1 F Pulse Rate 72 Respiratory Rate 18 Blood Pressure 134/53 L Pulse Oximetry 97 Oxygen Delivery Method Room Air BMI result Body Mass Index 31.3 Const General: cooperative, no acute distress, alert and awake Nutritional Appearance: well nourished Orientation/consciousness: patient oriented x3 Limitations: no limitations HENMT Head: Yes normal to inspection and Yes atraumatic Ears: hearing grossly normal bilaterally and external ears normal General nose exam: Normal external nose present, no nasal discharge noted and no epistaxis Face and sinus: Yes normal facial exam, No abrasion and No laceration Mouth: Normal oral and palatal mucosa present, no drooling and no muffled voice Eyes General: appearance normal, both eyes and all related structures Periorbital: periorbital findings normal Eyelids: Yes eyelids normal Conjunctivae: conjunctivae normal Pupils: Equal, round and reactive pupils present EOM: EOMs intact bilaterally Neck Neck: Yes normal visual inspection, Yes full ROM and Yes no lymphadenopathy Chest Chest palpation & inspection: normal inspection of the chest Resp Effort & Inspection: normal respiratory effort and able to speak in complete sentences GI Inspection: Yes normal to inspection Neuro General: patient oriented x3 and moves all extremities Cranial nerves: Yes Equal, round and reactive pupils present Cognition (Neuro): normal cognition Motor exam (neuro): 5/5 motor strength present throughout Sensory Exam: Normal double simultaneous stimulation for sensation Coordination: [id number] test normal Extrem General: Yes normal to inspection, Yes full ROM and Yes capillary refill normal Psych Appearance: grossly normal Mental Status: mental status grossly normal Affect: normal affect Attitude: cooperative Thought process: Normal thought process present Thought content: Normal thought content present Insight: Good insight present (Psych) Medical Decision Making Medical Decision Making MDM Narrative: Patient is a 58 year old assigned male at with a history of HTN, HLD, depression, alcohol abuse, and anxiety presenting to the emergency department today with vague suicidal ideation. Patient's physical exam was unremarkable. Patient's EKG was unremarkable. Before any labs were drawn or the patient was evaluated by the CARE team, the patient's arrived and together, the patient and the stated that the patient would like to leave. Patient states that he is safe and sometimes when he drinks he says these things but doesn't mean them. Patient's states that she is comfortable taking him home and the patient contracts for safety. I explained my physical exam findings as well as all test results to the patient and the patient's . I answered all questions asked by the patient and the patient's . I stressed the importance of the patient taking his medication as prescribed. I stressed the importance of the patient following up with his primary care provider. I stressed the importance of the patient returning to the emergency department immediately if his symptoms were to worsen or if he were to develop any dizziness, shortness of breath, difficulty breathing, chest pain, blurry vision, loss of vision, nausea, vomiting, abdominal pain, fever, chills, back pain, or any other complaints. Patient and the patient's verbalized agreement and understanding with this treatment plan and discharge. Differential Diagnosis Differential Diagnoses: The differential diagnosis associated with the presentation includes Vague suicidal ideation Alcohol abuse Depression Admission/Observation Consideration of admission/observation: Escalation of care including admission/observation considered Patient would have been admitted to the hospital had his work up had any findings where hospital admission was appropriate and his clinical presentation warranted hospital admission. Independent Interpretation I performed an independent interpretation of an: EKG Interpretation: Vent. Rate: 066 BPM Atrial Rate: 066 BPM P-R Int: 192 ms QRS Dur: 118 ms QT Int: 482 ms P-R-T Axes: 058 -21 046 degrees QTc Int: 505 ms Normal sinus rhythm Non-specific intra-ventricular conduction delay Minimal voltage criteria for LVH, may be normal variant ([place] product) Prolonged QT Abnormal ECG When compared with ECG of 13-NOV-2023 14:06, ST no longer elevated in Lateral leads T wave inversion no longer evident in Inferior leads Electronically Signed By:Julio Muro Dictated By: Juilo Muro MD Signed By: Electronically signed by Julio Muro MD 11/30/23 [id number] Independent Historian Clinical information obtained from an independent historian. History obtained from or confirmed by: Spouse (patient's provided additional history and confirmed the history provided by the patient.) and EMS (EMS provided additional history and confirmed the history provided by the patient) Discharge Plan Discharge Clinical Impression: Alcohol abuse Patient Disposition: Home, Self-Care Instructions: Abuse of Alcohol (DC) Additional Instructions: Follow up with your primary care provider. Return to the emergency department immediately if your symptoms worsen or if you develop any dizziness, shortness of breath, difficulty breathing, chest pain, blurry vision, loss of vision, nausea, vomiting, abdominal pain, fever, chills, back pain, or any other complaints. [facility]: [address] [place] [address] Walk in hours from 10am - 12pm Open from 10am - 12pm [facility] Crisis Services: [address] [place] [address] Walk in hours from 10am - 12pm Open 08/05 [facility]: [address] [place] [address] [id number] [place] [id number] Hours: M-F 8am to 8pm Monday and Monday 9am to 5pm Prescriptions: No Action propranolol 10 mg tablet 1 tab PO TID topiramate [Topamax] 200 mg tablet 1 tab PO BID zolpidem [Ambien] 10 mg tablet 1 tab PO BEDTIME pantoprazole 40 mg tablet,delayed release (DR/EC) 1 tab PO DAILY lactulose [Constulose] 10 gram/15 mL solution 30 ml PO TID PRN (Reason: Constipation) risperidone 1 mg tablet 2 mg PO BEDTIME tamsulosin 0.4 mg capsule 0.4 mg PO BEDTIME furosemide 40 mg tablet 1 tab PO DAILY spironolactone 100 mg tablet 1 tab PO DAILY fluoxetine [Prozac] 20 mg capsule 3 cap PO DAILY quetiapine [Seroquel] 25 mg tablet 12.5 mg PO BID PRN (Reason: anxiety) risperidone 0.25 mg tablet 0.25 mg PO DAILY PRN (Reason: Agitation) hydroxyzine HCl 25 mg tablet 25 - 50 mg PO BID PRN (Reason: anxiety) mirtazapine 15 mg tablet 15 mg PO BEDTIME ondansetron 4 mg tablet,disintegrating 4 mg PO Q8H melatonin 10 mg tablet 10 mg PO BEDTIME PRN (Reason: Insomnia) potassium chloride 10 mEq capsule, extended release 10 meq PO DAILY Qty: 20 0RF Referrals: Fransisco Soria MD [Primary Care Provider] - Interventions: M[place]ulloch-Suicide Risk Severity Scale Last Done: 11/30/23 13:43 ED Discharge Assessment Last Done: 11/30/23 13:43 Discharge Date/Time: 11/30/23 13:45
[2023-11-30 11:25] VITALS: BP 126/67; BP 134/53; PULSE 72; PULSE 74; RESP 18; TEMP 36.7; O2SAT 97; O2SAT 99; BMI 31.3
--- NOTE | 2023-11-30 11:27 | ECG_ITS ---
Test Reason : CHECK QT Blood Pressure : / mmHG Vent. Rate : 066 BPM Atrial Rate : 066 BPM P-R Int : 192 ms QRS Dur : 118 ms QT Int : 482 ms P-R-T Axes : 058 -21 046 degrees QTc Int : 505 ms Normal sinus rhythm Non-specific intra-ventricular conduction delay Minimal voltage criteria for LVH, may be normal variant ( [place] product ) Prolonged QT Abnormal ECG When compared with ECG of 13-NOV-2023 14:06, ST no longer elevated in Lateral leads T wave inversion no longer evident in Inferior leads Referred By: Lisa Camacho Electronically Signed By:Julio Muro
== END 2023-11-30 13:45 | disposition home or self-care (01) ==
PROVIDERS: Emergency Provider Emergency Medicine; PCP Internal Medicine
DX: F10.10 Alcohol abuse, uncomplicated (principal); Y90.9 Presence of alcohol in blood, level not specified; R45.851 Suicidal ideations; F41.9 Anxiety disorder, unspecified; I10 Essential (primary) hypertension; E78.5 Hyperlipidemia, unspecified; Z85.46 Personal history of malignant neoplasm of prostate; Z79.899 Other long term (current) drug therapy
CPT/HCPCS: 93005; 99283; 99284

== ENCOUNTER → 2023-11-30 11:27 | Outpatient (BNV) | payer MEDICARE, SELFPAY | PROVIDERS: Emergency Provider Emergency Medicine; PCP Internal Medicine; Visit Provider Internal Medicine Cardiovascular Disease | DX: R94.31 Abnormal electrocardiogram [ECG] [EKG] (principal) | CPT/HCPCS: 93010 ==

== ENCOUNTER 2023-12-27 00:11 | Inpatient (IN) | payer MEDICARE, SELFPAY ==
[2023-12-27] VITALS (26 sets, daily range): BP systolic 102–136; BP diastolic 33–69; PULSE 64–78; RESP 10–26; TEMP 36.2–37.2; O2SAT 97–100; BMI 32.7
--- NOTE | ~2023-12-27 | CT_ITS ---
EXAMINATION: CT ABDOMEN AND PELVIS WITHOUT AND WITH CONTRAST CLINICAL INFORMATION: GI bleeding. COMPARISON: 10/17/2022 TECHNIQUE: Multidetector volumetric imaging was performed of the abdomen and pelvis prior to and following administration of 80 mL Omnipaque 350 intravenous contrast. No oral contrast material.. Sagittal and coronal reformatted images were obtained on the technologist's workstation. This CT examination was performed using dose optimization techniques as appropriate, variously including the following: *Automated exposure control *Adjustment of mA and/or kV according to patient size (this includes techniques or standardized protocols for targeted exams where dose is matched to indication/reason for exam; i.e. extremities or head) *Use of iterative reconstruction technique DLP: 2214 mGy-cm FINDINGS: LUNG BASES: There is atelectatic change at the left lung base. LIVER, GALLBLADDER, AND BILIARY TREE: The liver is heterogeneous and irregular in contour. No focal liver lesions are seen. There is no intrahepatic biliary duct dilatation. Multiple gallstones are noted. PANCREAS: Unremarkable SPLEEN: Unremarkable ADRENAL GLANDS: Unremarkable KIDNEYS AND URETERS: The kidneys are normal in size, shape, and attenuation. No hydronephrosis, hydroureter, or calculi seen. No perinephric stranding. BLADDER: Unremarkable GASTROINTESTINAL TRACT: There is no bowel dilatation. The appendix is not confidently seen as a separate structure. There is mild rectal thickening. There is no evidence of contrast extravasation to suggest active GI bleeding ABDOMINAL WALL: There is soft tissue anasarca. LYMPH NODES: Normal VASCULAR: Splenic varices are noted. FLUID: There is small volume ascites and mesenteric edema. PELVIC VISCERA: Pelvic viscera are unremarkable. There is a amount of free fluid within the pelvis. OSSEOUS STRUCTURES: There is diffuse avqi-iq-njsspicu thoracolumbar disc degenerative change. CT/CT gi bleed abd pel wo/w IVcon IMPRESSION: 1. No evidence of active GI bleeding. 2. Cirrhosis of the liver with evidence of portal hypertension. 3. Cholelithiasis. 4. Small volume ascites. 5. Mild rectal thickening possibly a mild proctitis.
--- NOTE | 2023-12-27 00:19 | ECG_ITS ---
Test Reason : VOMITING Blood Pressure : / mmHG Vent. Rate : 072 BPM Atrial Rate : 072 BPM P-R Int : 186 ms QRS Dur : 116 ms QT Int : 496 ms P-R-T Axes : 054 -13 057 degrees QTc Int : 543 ms Normal sinus rhythm Prolonged QT Abnormal ECG When compared to the previous EKG of No significant changes seen Referred By: Darlene Tian Electronically Signed By:ELIECER RAWLS MD
[2023-12-27 00:35] LABS: Basophils Percent Auto 0.2 % (0-2); Eosinophils Percent Auto 0.1 % (0-4); Imm Gran Abs Auto 0.26 X10*3/uL (0.00-0.03); Imm Gran Pct Auto 1.2 % (0.0-0.4); Lymphocytes Absolute Auto 2.6 X10*3/uL (1.2-4.9); Lymphocytes Percent Auto 11.8 % (20-40); MANUAL DIFF FLAG NO; Mean Corpuscular HGB Conc 30.3 g/dl (31.0-36.0); Mean Corpuscular Hemoglobin 25.2 pg (27.0-33.0); Mean Platelet Volume 9.4 fL (9.4-12.4); Monocytes Absolute Auto 1.4 X10*3/uL (0.1-1.2); Monocytes Percent Auto 6.4 % (2-11); NRBC Pct Auto 0.1 /100WBC (0.0-0.2); Neutrophils Absolute Auto 17.6 x10*3/uL (2.0-8.3); Neutrophils Percent Auto 80.3 % (45-73); Platelet Count 197 X10*3/uL (160-400); Red Blood Count 1.47 X10*6/uL (4.60-5.80); Red Cell Distribution Width 21.6 % (11.0-16.0); White Blood Count 21.9 X10*3/uL (4.8-10.8)
[2023-12-27 00:37] LABS: Hematocrit 12.2 % (42.0-52.0); Hemoglobin 3.7 g/dl (14.0-18.0)
[2023-12-27 00:44] LABS: INTERNATIONAL NORM RATIO 1.4 (0.9-1.1); Prothrombin Time 16.6 SEC (11.1-13.3)
[2023-12-27 00:47] LABS: Partial Thromboplastin Time 31.9 SEC (26.0-36.8)
[2023-12-27] MEDS: 0.9 % Sodium Chloride 1,000 ML 999 ML IVCONT (00:51)
[2023-12-27] MEDS: ondansetron HCL 4 MG/2 ML VIAL IVPUSH ×2 (00:51→07:31)
[2023-12-27] MEDS: Pantoprazole Sodium 40 MG/10 ML VIAL 80 MG IVPUSH (00:51)
[2023-12-27 00:52] LABS: Alanine Aminotransferase 13 U/L (0-40); Albumin Level 2.1 g/dL (3.5-5.0); Alkaline Phosphatase 276 U/L (39-117); Anion Gap 15 (12-20); Aspartate Amino Transferase 37 U/L (5-37); Bilirubin Direct 1.9 mg/dL (0.0-0.5); Bilirubin Total 2.9 mg/dL (0.0-1.0); Blood Urea Nitrogen 27 mg/dL (9-16); Calcium 7.3 mg/dL (8.4-10.2); Carbon Dioxide 23 mmol/L (22-29); Chloride 93 mmol/L (96-108); Creatinine Clr Calc Pharmacy 77.2; Estimated Glomerular Filt Rate > 60; Ethanol 78 mg/dL; Glucose Random 153 mg/dL (60-115); Lipase 61 U/L (8-78); Magnesium 1.9 mg/dL (1.6-2.6); Potassium 3.3 mmol/L (3.3-5.1); Sodium 128 mmol/L (135-145)
[2023-12-27 00:55] LABS: Lactic Acid 8.5 mmol/L (0.5-2.0)
[2023-12-27 00:58] LABS: Troponin-I High Sensitivity < 2.7 ng/L (<3.5-35.0)
--- NOTE | 2023-12-27 01:00 | PC.NURSE ---
this rn assumed care of pt from ems. dr borja to bedside. 18 g IV placed in R Ac pt tolerated well 2nd iv placed 20g IV pt placed on shelter monitor pending admission
[2023-12-27 01:02] LABS: B Type Natriuretic Peptide 48 pg/mL (<100)
[2023-12-27] MEDS: Magnesium Sulfate/H2O 2 GM/50 ML PIGGYBACK IV (01:18)
[2023-12-27] MEDS: iohexoL 350 MG/ML 100 ML INFUS..BTL 80 ML IV (01:20)
[2023-12-27] MEDS: Thiamine HCL 200 MG in 0.9 % Sodium Chloride 100 ML 204 MG IV (01:37)
[2023-12-27] MEDS: Octreotide Acetate 100 MCG/ML AMPUL 50 MCG IVPUSH (01:53)
[2023-12-27] MEDS: Octreotide Acetate 500 MCG in 0.9 % Sodium Chloride 500 ML 50.1 MCG IVCONT ×2 (01:54→11:14)
--- NOTE | 2023-12-27 02:24 | PM.IMHP ---
History of Present Illness Date of Service: 12/27/23 Chief Complaint: GI bleed This is a 58-year-old male with pertinent history of alcohol use disorder with alcoholic liver cirrhosis, mood disorder, gastroesophageal reflux disease who presents to the emergency department for evaluation of blood in vomitus. Patient states it has been ongoing for the last 3 days. He had 1 episode of blood in vomit about a week ago and then it stopped. It restarted again about 3 days prior to presentation and he has had multiple episodes over the last 3 days. Patient continues to drink alcohol and his last alcoholic drink was prior to presentation. Does have a history of alcohol withdrawal. No history of alcohol withdrawal seizures. He denies fever, chills, abdominal discomfort or blood in stools. Admits generalized weakness and fatigability. No chest discomfort, palpitations, shortness of breath, changes in urinary habits. In the emergency department, hemoglobin was found to be low. He was also found to have low-sodium, elevated lactic acid and elevated white blood cell count. Imaging without any evidence of active GI bleeding. Review of Systems Constitutional: Constitutional: Reports fatigue and Reports malaise Cardiovascular: Cardiovascular: Reports no additional cardiovascular complaints Respiratory: Respiratory: Reports no additional respiratory complaints Gastrointestinal: Gastrointestinal: Reports hematemesis Genitourinary: Genitourinary: Reports no additional male genitourinary complaints Endocrine: Endocrine: Reports fatigue [facility] History Acute hyponatremia Hyponatremia NATHANIEL (acute kidney injury) Acute metabolic encephalopathy [place] Alcoholic cirrhosis of liver with ascites Prostate cancer Depression Hyperlipidemia Hypertension Anxiety Pertinent family history: No family history of early CAD Social History Household Members: Other Household Members Other:: fiancee [facility] Do you presently have visiting nurse or other home services: Yes Alcohol intake: former Patient Tobacco Use Status: Former Tobacco user Tobacco use type: Cigarette Advance Directives: No Advance Directives Information Provided: No Advance Directives Date on File: 11/11/21 service: No Current occupational status: disabled Meds Allergies Allergy/AdvReac Type Severity Reaction Status Date / Time Fish Containing Products Allergy Severe THROAT Verified 11/30/23 11:41 SWELLING peanut [Peanut] Allergy Severe THROAT Verified 11/30/23 11:41 SWELLING Active Medications: Current Medications Octreotide Acetate 500 mcg/ (Sodium Chloride) 501 mls @ 50.1 mls/hr IVCONT .Q10H KULWANT Last Admin: 12/27/23 01:54 Dose: 50 mcg/hr, 50.1 mls/hr Magnesium Sulfate (Magnesium Sulfate/H2o) 2 gm in 50 mls @ 25 mls/hr IV ONCE ONE Stop: 12/27/23 02:44 Last Admin: 12/27/23 01:18 Dose: 25 mls/hr Pharmacy Consult (Consult Rx Etoh Phenob Im/Po) 1 each MISCELLANE ONCE PRN; Protocol PRN Reason: Consult order Home Medications Medication Instructions Recorded Confirmed Last Taken Type lactulose 10 gram/15 mL oral 30 ml PO TID PRN Constipation 11/11/21 10/17/22 02/28/22 History solution (Constulose) pantoprazole 40 mg tablet,delayed 1 tab PO DAILY 11/11/21 10/17/22 10/17/22 History release propranolol 10 mg tablet 1 tab PO TID 11/11/21 10/17/22 10/17/22 History topiramate 200 mg tablet (Topamax) 1 tab PO BID 11/11/21 10/17/22 10/17/22 History zolpidem 10 mg tablet (Ambien) 1 tab PO BEDTIME 11/11/21 10/17/22 03/01/22 History fluoxetine 20 mg capsule (Prozac) 3 cap PO DAILY 02/06/22 10/17/22 10/17/22 History furosemide 40 mg tablet 1 tab PO DAILY 10/17/22 10/17/22 10/16/22 History risperidone 1 mg tablet 2 mg PO BEDTIME 10/17/22 10/17/22 10/16/22 History spironolactone 100 mg tablet 1 tab PO DAILY 10/17/22 10/17/22 10/16/22 History tamsulosin 0.4 mg capsule 0.4 mg PO BEDTIME 10/17/22 10/17/22 10/16/22 History hydroxyzine HCl 25 mg tablet 25 - 50 mg PO BID PRN anxiety 11/13/23 Unknown History melatonin 10 mg tablet 10 mg PO BEDTIME PRN Insomnia 11/13/23 Unknown History mirtazapine 15 mg tablet 15 mg PO BEDTIME 11/13/23 Unknown History ondansetron 4 mg disintegrating 4 mg PO Q8H 11/13/23 Unknown History tablet quetiapine 25 mg tablet (Seroquel) 12.5 mg PO BID PRN anxiety 11/13/23 Unknown History risperidone 0.25 mg tablet 0.25 mg PO DAILY PRN Agitation 11/13/23 Unknown History Physical Exam Vital Signs and Narrative: Vital Signs: Last Vital Signs Temp 97.3 F 12/27/23 02:18 Pulse 78 12/27/23 02:18 Resp 12 12/27/23 02:18 BP 122/55 L 12/27/23 02:18 Pulse Ox 100 12/27/23 02:00 O2 Del Method Room Air 12/27/23 02:00 BMI result Body Mass Index 32.7 Middle-aged male lying in bed in no distress Neck supple, no JVD, pallor present Regular rate and rhythm, S1-S2 heard Regular breath sounds bilaterally, no wheezing or crackles appreciated Abdomen with mild distention, nontender, no guarding, no rigidity Patient is awake, alert and oriented to self, place, time and person ; no focal motor deficit Psych: Normal mood Results Labs 12/27/23 00:25 12/27/23 00:25 Labs: Laboratory Results - last 24 hr 12/27/23 00:25 MCV 83.0 MCH 25.2 L MCHC 30.3 L RDW 21.6 H Plt Count 197 D MPV 9.4 Immature Gran % (Auto) 1.2 H Neut % (Auto) 80.3 H Lymph % (Auto) 11.8 L [place] % (Auto) 6.4 Eos % (Auto) 0.1 Baso % (Auto) 0.2 Lymph # (Auto) 2.6 [place] # (Auto) 1.4 H Eos # (Auto) 0.0 Baso # (Auto) 0.0 Abs Immat Gran (auto) 0.26 H Absolute Neuts (auto) 17.6 H Absolute Nucleated RBC 0.030 H Nucleated RBC % (auto) 0.1 PT 16.6 H INR 1.4 H APTT 31.9 Hold Blue Top SEE NOTE Anion Gap 15 Estim Creat Clear Calc 77.2 Estimated GFR > 60 Random Glucose 153 H Lactic Acid 8.5 H* Calcium 7.3 L Magnesium 1.9 Total Bilirubin 2.9 H Direct Bilirubin 1.9 H AST 37 ALT 13 Alkaline Phosphatase 276 H Troponin I High Sens < 2.7 B-Natriuretic Peptide 48 Total Protein 6.0 L Albumin 2.1 L Lipase 61 Ethyl Alcohol 78 Blood Type A Positive Antibody Screen NEGATIVE Crossmatch See Detail Imaging Radiologist's Impressions: Impressions Abdomen/Pelvis CT 12/27/23 01:10 IMPRESSION: 1. No evidence of active GI bleeding. 2. Cirrhosis of the liver with evidence of portal hypertension. 3. Cholelithiasis. 4. Small volume ascites. 5. Mild rectal thickening possibly a mild proctitis. Assessment and Plan (1) GI bleed: Status: Acute Plan This is a 58-year-old male with pertinent history of alcohol use disorder with alcoholic liver cirrhosis, mood disorder, gastroesophageal reflux disease who presents to the emergency department for evaluation of blood in vomitus. #. Acute upper GI bleed: Will admit patient with cardiac monitoring. Initiated on IV Protonix and IV octreotide. Also initiated on empiric IV Rocephin in a patient with ascites and liver cirrhosis. Consulted Gastroenterology, appreciate assistance. Will keep patient NPO. Close hemodynamic monitoring #. Acute blood loss anemia in the setting of above: 4 unit PRBC ordered in the ER. Closely monitor H&H #. Alcohol use disorder: Initiated on phenobarb protocol in the ER. Consulting Addiction Team. Monitor CIWA. Initiating thiamine #. Acute lactic acidosis: Due to alcoholism and liver disease. No sepsis #. Hyponatremia due to cirrhosis #. Mood disorder: Resume home mood stabilizers once able to take p.o. #. Alcoholic liver cirrhosis: Hold spironolactone and Lasix in the setting of GI bleed #. Leukocytosis, reactive: No sepsis. On empiric antibiotics as above Med rec pending DVT prophylaxis: Mechanical Full code Admit as inpatient and will require two night minimum hospital stay for close hemodynamic monitoring, close monitoring of H&H in a patient with high risk of decompensation (as above), which is not possible in a lesser acute setting. Specialist consult pending Quality Stroke Does the patient have a stroke diagnosis?: No VTE Prior VTE?: No VTE Risk Level:: Medical - moderate - high VTE Device Contraindication: N/A - Device Ordered VTE Drug Contraindication: Treatment Not Indicated
[2023-12-27 02:33] LABS: Reflex Lactate? Lactic Acid Added
[2023-12-27] MEDS: cefTRIAXone sodium 2 GM in 0.9 % Sodium Chloride 50 ML IV (02:36)
--- NOTE | 2023-12-27 02:43 | PC.NURSE ---
per dr brooks no blood cultures needed prior to initiating iv antibiotics. pt medicated according to lima
--- NOTE | 2023-12-27 02:49 | ED.GIBLEED ---
HPI - GI Bleed General Chief complaint: GI Bleed Stated complaint: vomiting clots, blood in stool and urine 3xdays Time Seen by Provider: 12/27/23 00:15 Source: EMS Mode of arrival: EMS Limitations: no limitations History of Present Illness HPI Narrative: Patient comes to the emergency room complaining of 3-4 days of vomiting bright red blood and also having blood clots in the stool. Patient admits that he has been drinking alcohol daily. Patient reports that he drank alcohol this morning. Patient's partner reports that he drank alcohol later this evening. Patient denies any abdominal pain. Patient states that he feels weak, lightheaded when he stands or walks. Patient reports past medical history of liver cirrhosis. Patient denies SI or HI Related Data Home Medications Medication Instructions Recorded Confirmed lactulose 10 gram/15 mL oral 30 ml PO TID PRN Constipation 11/11/21 10/17/22 solution (Constulose) pantoprazole 40 mg tablet,delayed 1 tab PO DAILY 11/11/21 10/17/22 release propranolol 10 mg tablet 1 tab PO TID 11/11/21 10/17/22 topiramate 200 mg tablet (Topamax) 1 tab PO BID 11/11/21 10/17/22 zolpidem 10 mg tablet (Ambien) 1 tab PO BEDTIME 11/11/21 10/17/22 fluoxetine 20 mg capsule (Prozac) 3 cap PO DAILY 02/06/22 10/17/22 furosemide 40 mg tablet 1 tab PO DAILY 10/17/22 10/17/22 risperidone 1 mg tablet 2 mg PO BEDTIME 10/17/22 10/17/22 spironolactone 100 mg tablet 1 tab PO DAILY 10/17/22 10/17/22 tamsulosin 0.4 mg capsule 0.4 mg PO BEDTIME 10/17/22 10/17/22 hydroxyzine HCl 25 mg tablet 25 - 50 mg PO BID PRN anxiety 11/13/23 melatonin 10 mg tablet 10 mg PO BEDTIME PRN Insomnia 11/13/23 mirtazapine 15 mg tablet 15 mg PO BEDTIME 11/13/23 ondansetron 4 mg disintegrating 4 mg PO Q8H 11/13/23 tablet quetiapine 25 mg tablet (Seroquel) 12.5 mg PO BID PRN anxiety 01/29/24 risperidone 0.25 mg tablet 0.25 mg PO DAILY PRN Agitation 11/13/23 Previous Rx's Medication Instructions Recorded potassium chloride 10 mEq 10 meq PO DAILY #20 caps 11/13/23 capsule,extended release Allergies Allergy/AdvReac Type Severity Reaction Status Date / Time Fish Containing Products Allergy Severe THROAT Verified 11/30/23 11:41 SWELLING peanut [Peanut] Allergy Severe THROAT Verified 11/30/23 11:41 SWELLING Review of Systems Review of Systems: Constitutional : No Weight loss, No Fever, No Chills, No Night Sweats, No Fatigue, No Malaise ENT/Mouth : No Hearing loss, No Ear Pain, No Nasal Congestion, No Sinus Pain, No Hoarseness, No sore throat, No Rhinorrhea, No Swallowing Difficulty Eyes: No Eye Pain, No Swelling, No Redness, No Foreign Body, No Discharge, No Vision Changes Cardiovascular : No Chest Pain, No SOB, No Dyspnea on Exertion, No Orthopnea, No Edema, No Palpitations Respiratory : No Cough, No Sputum, No Wheezing, No Smoke Exposure, No Dyspnea Gastrointestinal : Complaining of heavy hematemesis, black stool , no abdominal pain, nausea Genitourinary : no irregular bleeding, No Dysuria, No Urinary Frequency, No Hematuria, No Urinary Incontinence, No Urgency, No Flank Pain, No Urinary Flow Changes, No Hesitancy Musculoskeletal : No joint pain, No Myalgias, No Joint Swelling Skin : No Skin Lesions, No rash Neuro : No Weakness, No Numbness, No Paresthesias, No Loss of Consciousness, No Dizziness, No Headache Psych : No Anxiety/Panic, No Depression, No SI/HI/AH/VH, No Social Issues, Heme/Lymph: No Bruising, No Bleeding,No Lymphadenopathy Endocrine : No Polyuria, No Polydipsia, No Temperature Intolerance [facility] Past Medical History Medical History Acute hyponatremia Hyponatremia NATHANIEL (acute kidney injury) Acute metabolic encephalopathy [place] Alcoholic cirrhosis of liver with ascites Prostate cancer Depression Hyperlipidemia Hypertension Anxiety Social History Social History Household Members: Other Household Members Other:: fiancee Housing: Condominium Do you presently have visiting nurse or other home services: Yes Alcohol intake: former Patient Tobacco Use Status: Former Tobacco user Tobacco use type: Cigarette Advance Directives: No Advance Directives Information Provided: No Advance Directives Date on File: 11/11/21 service: No Current occupational status: disabled Physical Exam Vital Signs: Vital Signs: Last Vital Signs Temp 98.4 F 12/27/23 02:38 Pulse 77 12/27/23 02:38 Resp 12 12/27/23 02:38 BP 122/44 L 12/27/23 02:38 Pulse Ox 100 12/27/23 02:00 O2 Del Method Room Air 12/27/23 02:00 BMI result Body Mass Index 32.7 Const: Other: Appearance: Alert. Oriented X3. No acute distress. Seems a bit weak Eyes: Pupils equal, round and reactive to light. ENT: Pharynx normal. Neck: Normal inspection. Neck supple. No lymph nodes noted. No crepitus CVS: Normal heart rate and rhythm. Pulses normal. Normal S1 and S2 Respiratory: No respiratory distress. Breath sounds normal. No Wheezing. No rales Abdomen: Soft and nontender. No rigidity. No distention. Patient declined digital rectal exam Skin: Skin warm and dry. Diffusely pale skin color. Normal skin turgor. Extremities: No lower extremity edema. No Lacerations. No Rash Neuro: Oriented X 3. No motor deficit. No sensory deficit. Moving all extremities. No slurred speech. CN 2 through 12 grossly intact Psych: calm, cooperative, normal affect Course Course Course Narrative: -patient is diffusely pale. I discussed with the patient that there is a very good chance that he may need a blood transfusion. I discussed with the patient the risks versus benefits of the blood transfusion. Patient agreeable to receive blood. Medications Administered Generic Name Dose Route Start Last Admin Trade Name Freq PRN Reason Stop Dose Admin Octreotide Acetate 500 mcg/ 501 mls @ 50.1 mls/hr 12/27/23 00:30 12/27/23 01:54 Sodium Chloride IVCONT 50 mcg/hr .Q10H KULWANT 50.1 mls/hr Administration 50 MCG/HR Discontinued Medications Generic Name Dose Route Start Last Admin Trade Name Freq PRN Reason Stop Dose Admin Sodium Chloride 1,000 mls @ 999 mls/hr 12/27/23 00:19 12/27/23 02:37 Ns IVCONT 12/27/23 01:19 Infused .Q1H1M ONE Infusion Magnesium Sulfate 2 gm in 50 mls @ 25 mls/hr 12/27/23 00:45 12/27/23 01:18 Magnesium Sulfate/H2o IV 12/27/23 02:44 25 mls/hr ONCE ONE Administration Thiamine HCl 200 mg/ Sodium 102 mls @ 204 mls/hr 12/27/23 00:48 12/27/23 02:10 Chloride IV 12/27/23 01:17 Infused ONCE ONE Infusion Ceftriaxone Sodium 2 gm/ 50 mls @ 100 mls/hr 12/27/23 00:55 12/27/23 02:36 Sodium Chloride IV 12/27/23 01:24 100 mls/hr ONCE ONE Administration Iohexol 80 ml 12/27/23 01:11 12/27/23 01:20 Iohexol 350 Mg/Ml 100 Ml Infus..Btl IV 12/27/23 01:12 80 ml ONCE ONE Administration Octreotide Acetate 50 mcg 12/27/23 00:21 12/27/23 01:53 Octreotide Acetate 100 Mcg/Ml Ampul IVPUSH 12/27/23 00:22 50 mcg ONCE ONE Administration Ondansetron HCl 4 mg 12/27/23 00:21 12/27/23 00:51 Ondansetron Hcl 4 Mg/2 Ml Vial IVPUSH 12/27/23 00:22 4 mg ONCE ONE Administration Pantoprazole Sodium 80 mg 12/27/23 00:21 12/27/23 00:51 Pantoprazole Sodium 40 Mg/10 Ml Vial IVPUSH 12/27/23 00:22 80 mg ONCE ONE Administration Medical Decision Making Medical Decision Making MDM Narrative: -my interpretation of labs: Patient's white blood cell count 21.9, likely secondary to the GI bleed itself. INR 1.4, stable, chronic. Patient's sodium 128. Lactic acid 8.5 ETOH positive, 78 .-patient's white blood cell count, lactic acid, and elevated liver enzymes are all secondary to chronic alcohol intake, not due to sepsis. Patient received ceftriaxone for empiric treatment for the GI bleed. -I ordered 4 units of blood for the patient. Patient aware that tomorrow he will be seen by Gastroenterology, he may need upper and lower endoscopy. Patient agreeable. -patient was started on phenobarb protocol. At this time, patient has no signs or symptoms of alcohol withdrawal. -my interpretation of CT scan of the abdomen: Cirrhosis, no obvious GI bleed. -I reviewed patient's past medical records. Patient had a colonoscopy in February of 2022: Patient had a polyp in the cecum -patient remains awake, alert, stable, blood pressure 122/44, heart rate 77, oxygen saturation 100% on room air, no fever. -I discussed the patient with Dr. Cummins, patient being admitted. Patient needs a GI consult in the morning Differential Diagnosis Differential Diagnoses: The differential diagnosis associated with the presentation includes (Esophageal varices, alcoholic gastritis, peptic ulcer disease, upper GI bleed, lower GI bleed, colitis) Admission/Observation Consideration of admission/observation: Escalation of care including admission/observation considered Consult Healthcare Provider Management of the patient was discussed with: Hospitalist Lab Data MDM Lab Attestation statement: I reviewed the patient's lab results. 12/27/23 00:25 12/27/23 00:25 Labs: Lab Results 12/27/23 Range/Units 00:25 WBC 21.9 H (4.8-10.8) X10*3/uL RBC 1.47 L D (4.60-5.80) X10*6/uL Hgb 3.7 L* D (14.0-18.0) g/dl Hct 12.2 L* D (42.0-52.0) % MCV 83.0 (80.0-98.0) fL MCH 25.2 L (27.0-33.0) pg MCHC 30.3 L (31.0-36.0) g/dl RDW 21.6 H (11.0-16.0) % Plt Count 197 D (160-400) X10*3/uL MPV 9.4 (9.4-12.4) fL Immature Gran % (Auto) 1.2 H (0.0-0.4) % Neut % (Auto) 80.3 H (45-73) % Lymph % (Auto) 11.8 L (20-40) % [place] % (Auto) 6.4 (2-11) % Eos % (Auto) 0.1 (0-4) % Baso % (Auto) 0.2 (0-2) % Lymph # (Auto) 2.6 (1.2-4.9) X10*3/uL [place] # (Auto) 1.4 H (0.1-1.2) X10*3/uL Eos # (Auto) 0.0 (0.0-0.4) X10*3/uL Baso # (Auto) 0.0 (0.0-0.2) X10*3/uL Abs Immat Gran (auto) 0.26 H (0.00-0.03) X10*3/uL Absolute Neuts (auto) 17.6 H (2.0-8.3) x10*3/uL Absolute Nucleated RBC 0.030 H (0.0-0.012) X10*3/uL Nucleated RBC % (auto) 0.1 (0.0-0.2) /100WBC PT 16.6 H (11.1-13.3) SEC INR 1.4 H (0.9-1.1) APTT 31.9 (26.0-36.8) SEC Hold Blue Top SEE NOTE Sodium 128 L (135-145) mmol/L Potassium 3.3 (3.3-5.1) mmol/L Chloride 93 L (96-108) mmol/L Carbon Dioxide 23 (22-29) mmol/L Anion Gap 15 (12-20) BUN 27 H (9-16) mg/dL Creatinine 1.18 (0.5-1.4) mg/dL Estim Creat Clear Calc 77.2 Estimated GFR > 60 Random Glucose 153 H (60-115) mg/dL Lactic Acid 8.5 H* (0.5-2.0) mmol/L Calcium 7.3 L (8.4-10.2) mg/dL Magnesium 1.9 (1.6-2.6) mg/dL Total Bilirubin 2.9 H (0.0-1.0) mg/dL Direct Bilirubin 1.9 H (0.0-0.5) mg/dL AST 37 (5-37) U/L ALT 13 (0-40) U/L Alkaline Phosphatase 276 H (39-117) U/L Troponin I High Sens < 2.7 (<3.5-35.0) ng/L B-Natriuretic Peptide 48 (<100) pg/mL Total Protein 6.0 L (6.5-8.0) g/dL Albumin 2.1 L (3.5-5.0) g/dL Lipase 61 (8-78) U/L Ethyl Alcohol 78 mg/dL Blood Type A Positive Antibody Screen NEGATIVE Crossmatch See Detail Independent Interpretation I performed an independent interpretation of an: CT Scan Radiology Impression Discussion of test interpretation with radiology: I have reviewed the radiologist's reading. Radiologist Impression: FINDINGS: LUNG BASES: There is atelectatic change at the left lung base. LIVER, GALLBLADDER, AND BILIARY TREE: The liver is heterogeneous and irregular in contour. No focal liver lesions are seen. There is no intrahepatic biliary duct dilatation. Multiple gallstones are noted. PANCREAS: Unremarkable SPLEEN: Unremarkable ADRENAL GLANDS: Unremarkable KIDNEYS AND URETERS: The kidneys are normal in size, shape, and attenuation. No hydronephrosis, hydroureter, or calculi seen. No perinephric stranding. BLADDER: Unremarkable GASTROINTESTINAL TRACT: There is no bowel dilatation. The appendix is not confidently seen as a separate structure. There is mild rectal thickening. There is no evidence of contrast extravasation to suggest active GI bleeding ABDOMINAL WALL: There is soft tissue anasarca. LYMPH NODES: Normal VASCULAR: Splenic varices are noted. FLUID: There is small volume ascites and mesenteric edema. PELVIC VISCERA: Pelvic viscera are unremarkable. There is a amount of free fluid within the pelvis. OSSEOUS STRUCTURES: There is diffuse [id number] thoracolumbar disc degenerative change. CT/CT gi bleed abd pel wo/w IVcon IMPRESSION: 1. No evidence of active GI bleeding. 2. Cirrhosis of the liver with evidence of portal hypertension. 3. Cholelithiasis. 4. Small volume ascites. 5. Mild rectal thickening possibly a mild proctitis. Independent Historian Clinical information obtained from an independent historian. History obtained from or confirmed by: Spouse External Record Review External record reviewed: Inpatient record and Outpatient record Prescription Management I considered prescription management with: Other (Alcohol abuse) Critical Care Time Critical Care Time Critical Care Time: Yes Total Critical Care Time: 75 Attestation: I have personally provided critical care time. Time includes review of lab data, radiology results, discussion with consultants, and monitoring for potential decompensation. Intervention performed as documented. Discharge Plan Discharge Clinical Impression: Acute GI bleeding, Acute hyponatremia, Anemia, Alcohol dependence Patient Disposition: Admitted As Inpatient Prescriptions: No Action propranolol 10 mg tablet 1 tab PO TID topiramate [Topamax] 200 mg tablet 1 tab PO BID zolpidem [Ambien] 10 mg tablet 1 tab PO BEDTIME pantoprazole 40 mg tablet,delayed release (DR/EC) 1 tab PO DAILY lactulose [Constulose] 10 gram/15 mL solution 30 ml PO TID PRN (Reason: Constipation) risperidone 1 mg tablet 2 mg PO BEDTIME tamsulosin 0.4 mg capsule 0.4 mg PO BEDTIME furosemide 40 mg tablet 1 tab PO DAILY spironolactone 100 mg tablet 1 tab PO DAILY fluoxetine [Prozac] 20 mg capsule 3 cap PO DAILY quetiapine [Seroquel] 25 mg tablet 12.5 mg PO BID PRN (Reason: anxiety) risperidone 0.25 mg tablet 0.25 mg PO DAILY PRN (Reason: Agitation) hydroxyzine HCl 25 mg tablet 25 - 50 mg PO BID PRN (Reason: anxiety) mirtazapine 15 mg tablet 15 mg PO BEDTIME ondansetron 4 mg tablet,disintegrating 4 mg PO Q8H melatonin 10 mg tablet 10 mg PO BEDTIME PRN (Reason: Insomnia) potassium chloride 10 mEq capsule, extended release 10 meq PO DAILY Qty: 20 0RF
[2023-12-27 03:39] LABS: ~Lactic Acid-LAB USE ONLY 7.3 mmol/L (0.5-2.0)
--- NOTE | 2023-12-27 03:40 | PC.NURSE ---
critical [place] 7.3 dr brooks made aware per dr brooks this rn placed order for destini blood gas order placed
[2023-12-27 03:48] LABS: OBS Int Ctl Valid YES; OBS1 POSITIVE (NEGATIVE)
--- NOTE | 2023-12-27 03:48 | MHC.EDTECH ---
PT used his call andres to get off the bed vazquez. This tech had another tech come in and help roll pt to clean up and change bedding. Boosted and sat up in the bed, he is all set.
[2023-12-27] MEDS: PHENobarbitaL sodium 130 MG/ML IM ONCE 326 MG IM (04:17)
[2023-12-27 05:20] LABS: Reflex Lactate? 2 Y
[2023-12-27 05:20] LABS: MANUAL DIFF FLAG NO
[2023-12-27 05:21] LABS: Venous Blood Gas Refer to POC result
[2023-12-27 05:23] LABS: Basophils Percent Auto 0.2 % (0-2); Eosinophils Absolute Auto 0.1 X10*3/uL (0.0-0.4); Eosinophils Percent Auto 0.6 % (0-4); Imm Gran Abs Auto 0.21 X10*3/uL (0.00-0.03); Imm Gran Pct Auto 1.1 % (0.0-0.4); Lymphocytes Absolute Auto 1.6 X10*3/uL (1.2-4.9); Mean Corpuscular HGB Conc 31.7 g/dl (31.0-36.0); Mean Corpuscular Hemoglobin 26.8 pg (27.0-33.0); Mean Corpuscular Volume 84.5 fL (80.0-98.0); Mean Platelet Volume 9.8 fL (9.4-12.4); Monocytes Percent Auto 5.2 % (2-11); Neutrophils Percent Auto 84.9 % (45-73); Platelet Count 147 X10*3/uL (160-400); Red Blood Count 1.68 X10*6/uL (4.60-5.80); Red Cell Distribution Width 20.2 % (11.0-16.0)
[2023-12-27 05:23] LABS: VBG Base Excess 0.1 mmol/L; VBG HCO3 21 mmol/L (22-26); VBG pCO2 23 mmHg; VBG pH 7.57 (7.32-7.43); VBG pO2 60 mmHg
[2023-12-27 05:25] LABS: Hemoglobin 4.5 g/dl (14.0-18.0)
[2023-12-27 05:26] LABS: Hematocrit 14.2 % (42.0-52.0)
[2023-12-27 05:31] LABS: Anion Gap 20 (12-20); Blood Urea Nitrogen 25 mg/dL (9-16); Carbon Dioxide 20 mmol/L (22-29); Chloride 95 mmol/L (96-108); Creatinine Clr Calc Pharmacy 86.8; Estimated Glomerular Filt Rate > 60; Glucose Random 113 mg/dL (60-115); Potassium 3.6 mmol/L (3.3-5.1); Sodium 131 mmol/L (135-145)
[2023-12-27 05:33] LABS: Lactic Acid 7.7 mmol/L (0.5-2.0)
--- NOTE | 2023-12-27 05:59 | PC.NURSE ---
1 unit PRBC transfused pt tolerated well. no s/s of transfusion reaction. pt continues to make statements of thirst despite frequent reminders of NPO status and education from this rn
--- NOTE | 2023-12-27 06:43 | P.CNGI_ITS ---
History of Present Illness Data of Consult Service Date: 12/27/23 Requesting physician: Janny Cummins Primary Care Provider: Fransisco Soria MD HPI Reason for consult: anemia 58-year-old male with history of alcohol abuse, alcoholic liver cirrhosis, mood disorder, gastroesophageal reflux disease who I am seeing for assessment for anemia. He initially presented to the emergency department with bloody emesis for the last 3 days with blood clots noted. Started after he relapsed and started drinking shots of vodka again, Denies taking nsaids. He denies fever, chills, abdominal discomfort or blood in stools. Admits generalized weakness and fatigability. No chest discomfort, palpitations, shortness of breath, changes in urinary habits. No further vomiting in the ED. In the emergency department, hemoglobin was 5.7 g/dl with pls 147, lactate 7.7, ethyl alcohol level pos. He has been receiving PRBC. Imaging without any evidence of active GI bleeding. Review of Systems 2 Review of Systems: Constitutional : No Weight loss, No Fever, No Chills ENT/Mouth : No sore throat, No Rhinorrhea Eyes: No Swelling, No Redness Cardiovascular : No Chest Pain, No SOB, No Edema Respiratory : No Cough, No Sputum, No Wheezing Gastrointestinal : see HPI Genitourinary : NO Dysuria, No Urinary Frequency, No Hematuria, No Urgency Musculoskeletal : No joint pain, No Myalgias, No Joint Swelling Skin : No Skin Lesions, No rash Neuro : No Headache Psych : + Anxiety/Panic, No Depression Heme/Lymph: No Bruising, No Lymphadenopathy Endocrine : No Polyuria, No Polydipsia All other systems reviewed and are negative. [facility] Past Medical History Medical History Acute hyponatremia Hyponatremia NATHANIEL (acute kidney injury) Acute metabolic encephalopathy [place] Alcoholic cirrhosis of liver with ascites Prostate cancer Depression Hyperlipidemia Hypertension Anxiety Family History Pertinent family history: No FH of cirrhosis Social History Social History Household Members: Spouse Household Members Other:: fiancee Housing: Condominium Do you presently have visiting nurse or other home services: Yes ([place]) Alcohol intake: former Patient Tobacco Use Status: Current everyday Tobacco user Tobacco use type: Cigarette Substance Use Type: Marijuana Advance Directives Date on File: 11/11/21 service: No Current occupational status: disabled Meds Allergies Allergy/AdvReac Type Severity Reaction Status Date / Time Fish Containing Products Allergy Severe THROAT Verified 11/30/23 11:41 SWELLING peanut [Peanut] Allergy Severe THROAT Verified 11/30/23 11:41 SWELLING Active Medications: Current Medications Acetaminophen (Acetaminophen 325 Mg Tablet) 650 mg PO Q6H PRN PRN Reason: Pain, Mild (Pain Scale 1-3) Acetaminophen (Acetaminophen Supp 650 Mg Supp.Rect) 650 mg MS Q6H PRN PRN Reason: Pain, Mild (Pain Scale 1-3) Octreotide Acetate 500 mcg/ (Sodium Chloride) 501 mls @ 50.1 mls/hr IVCONT .Q10H KULWANT Last Admin: 12/27/23 01:54 Dose: 50 mcg/hr, 50.1 mls/hr Thiamine HCl 100 mg/ Sodium (Chloride) 101 mls @ 202 mls/hr IV DAILY [facility] Ceftriaxone Sodium 1 gm/ (Sodium Chloride) 50 mls @ 100 mls/hr IV Q24H [facility] Melatonin (Melatonin 3 Mg Tablet) 6 mg PO BEDTIME PRN PRN Reason: Insomnia Ondansetron HCl (Ondansetron Hcl 4 Mg/2 Ml Vial) 4 mg IVPUSH Q8H PRN PRN Reason: Nausea and Vomiting Pantoprazole Sodium (Pantoprazole Sodium 40 Mg/10 Ml Vial) 40 mg IVPUSH BID@0630,1630 [facility] Pharmacy Consult (Consult Rx Etoh Phenob Im/Po) 1 each MISCELLANE ONCE PRN; Protocol PRN Reason: Consult order Phenobarbital (Phenobarbital 15 Mg Tablet) 45 mg PO BID [facility]; Protocol Stop: 12/29/23 09:01 Phenobarbital (Phenobarbital 30 Mg Tablet) 30 mg PO BID [facility]; Protocol Stop: 12/31/23 09:01 Phenobarbital (Phenobarbital 15 Mg Tablet) 15 mg PO DAILY [facility]; Protocol Stop: 01/02/24 09:01 Phenobarbital Sodium (Phenobarbital Sodium 130 Mg/Ml Vial Im Q3hx2) 244 mg IM Q3H KULWANT Stop: 12/27/23 10:01 Sodium Chloride (0.9 % Sodium Chloride Flush 3 Ml Syringe) 3 ml IVFLUSH QSHIFT [facility] Home Medications Medication Instructions Recorded Confirmed Last Taken Type lactulose 10 gram/15 mL oral 30 ml PO TID PRN Constipation 11/11/21 12/27/23 02/28/22 History solution (Constulose) pantoprazole 40 mg tablet,delayed 1 tab PO DAILY 11/11/21 12/27/23 10/17/22 History release propranolol 10 mg tablet 1 tab PO TID 11/11/21 12/27/23 10/17/22 History topiramate 200 mg tablet (Topamax) 1 tab PO BID 11/11/21 12/27/23 10/17/22 History fluoxetine 20 mg capsule (Prozac) 60 mg PO DAILY 02/06/22 12/27/23 10/17/22 History furosemide 40 mg tablet 1 tab PO DAILY 10/17/22 12/27/23 10/16/22 History spironolactone 100 mg tablet 1 tab PO DAILY 10/17/22 12/27/23 10/16/22 History tamsulosin 0.4 mg capsule 0.4 mg PO BEDTIME 10/17/22 12/27/23 10/16/22 History hydroxyzine HCl 25 mg tablet 25 - 50 mg PO BID PRN anxiety 11/13/23 12/27/23 Unknown History melatonin 10 mg tablet 10 mg PO BEDTIME PRN Insomnia 11/13/23 12/27/23 Unknown History mirtazapine 15 mg tablet 15 mg PO BEDTIME 11/13/23 12/27/23 Unknown History ondansetron 4 mg disintegrating 4 mg PO Q8H PRN Nausea 11/13/23 12/27/23 Unknown History tablet quetiapine 25 mg tablet (Seroquel) 12.5 mg PO BID PRN anxiety 11/13/23 12/27/23 Unknown History quetiapine 50 mg tablet (Seroquel) 50 mg PO BID 12/27/23 12/27/23 Unknown History risperidone 2 mg tablet 2 mg PO BEDTIME 12/27/23 12/27/23 Unknown History Physical Exam 2 Vital Signs: Vital Signs: Last Vital Signs Temp 98.8 F 12/27/23 06:02 Pulse 74 12/27/23 06:02 Resp 22 H 12/27/23 06:02 BP 124/48 L 12/27/23 06:02 Pulse Ox 100 12/27/23 02:00 O2 Del Method Room Air 12/27/23 02:00 BMI result Body Mass Index 32.7 EXAM: GENERAL: The patient is dishevelled VITAL SIGNS:see workflow HEENT: Nonicteric sclerae, PERRLA, EOMI. Oropharynx clear. Moist mucous membranes. Conjunctivae appear well perfused. No thyroid mass. CHEST: Chest wall is nontender. HEART: Regular rate and rhythm without murmurs. LUNGS: Clear to auscultation bilaterally. ABDOMEN: Soft, positive bowel sounds, nontender, no organomegaly.no flank tenderness SKIN: No rash, no excessive bruising, petechiae, or purpura. NEUROLOGIC: Cranial nerves II-XII intact without motor/sensory deficit. Slightly tremulous Psych: normal affect Results Labs 12/27/23 08:27 12/27/23 05:14 Labs: Short CBC 12/27/23 12/27/23 Range/Units 00:25 05:14 WBC 21.9 H 20.0 H (4.8-10.8) X10*3/uL Hgb 3.7 L* D 4.5 L* D (14.0-18.0) g/dl Hct 12.2 L* D 14.2 L* (42.0-52.0) % Plt Count 197 D 147 L D (160-400) X10*3/uL BMP 12/27/23 12/27/23 00:25 05:14 Sodium 128 L 131 L Potassium 3.3 3.6 Chloride 93 L 95 L Carbon Dioxide 23 20 L BUN 27 H 25 H Creatinine 1.18 1.05 Calcium 7.3 L 7.0 L Liver Function 12/27/23 Range/Units 00:25 Total Bilirubin 2.9 H (0.0-1.0) mg/dL Direct Bilirubin 1.9 H (0.0-0.5) mg/dL AST 37 (5-37) U/L ALT 13 (0-40) U/L Alkaline Phosphatase 276 H (39-117) U/L Albumin 2.1 L (3.5-5.0) g/dL Imaging CT scan - abdomen: Attestation: I personally reviewed and interpreted this imaging study as follows: (nodular shrunken liver with small ascites, mesenteric stranding ) Assessment and Plan (1) Anemia: Qualifiers: Anemia type: other cause Status: Acute (2) Acute GI bleeding: Status: Acute Plan 1/ Acute to subacute blood loss anemia, ddx: alcoholic gastritis, esophagitis, varices, dieulafoy 2/ Cirrhosis from alcohol, ongoing use of alcohol PLAN: 1/ Agree with PPI, octreotide and rocephin 2/ correct anemia and lyte defcn, fluid resus 3/ EGD tomorrow for further assessment 4/ alcohol withdrawal protocol, watch for hepatic encepahalopathy with DT--optimize lytes incl K and Mag, Ca Procedures Date of Service Date of Service: 12/27/23
--- NOTE | 2023-12-27 06:44 | P.EN_ITS ---
Event Note Date of Service: 12/27/23 Event Note: Case discussed with Dr. Kalli Caraballo, rail car driver who agreed to evaluate the patient with low threshold to transfer for higher level of care and closer monitoring. Time Spent With Patient Time: Total time managing care of this patient today ____ minutes.
[2023-12-27 07:18] LABS: Reflex Lactate? Lactic Acid Added
[2023-12-27] MEDS: PHENobarbitaL sodium 130 MG/ML VIAL IM Q3Hx2 244 MG IM ×2 (07:18→11:16)
--- NOTE | 2023-12-27 07:59 | PHA.MEDREC ---
Pharmacy Consult ? Medication Reconciliation Pharmacy has completed the medication reconciliation.Med rec complete, spoke with patients fiance and compared with pharmacy claim history.
[2023-12-27 08:00] LABS: Fibrinogen 273 MG/DL (259-690)
--- NOTE | 2023-12-27 08:03 | PC.NURSE ---
Phlebotomy here to draw CBC however second unit still infusing. Dr Marshall states to await transfusion to complete. Phlebotomy made aware that lactic to be drawn, awaiting blood completion for CBC
[2023-12-27 08:42] LABS: Hemoglobin 5.7 g/dl (14.0-18.0)
[2023-12-27 08:49] LABS: ~Lactic Acid-LAB USE ONLY 3.9 mmol/L (0.5-2.0)
--- NOTE | 2023-12-27 08:54 | P.EN_ITS ---
Event Note Date of Service: 12/27/23 Event Note: Patient is a 58 Y M with alcohol misuse presenting with 3-day history of hematemesis, found to have profound anemia, hemodynamically stable, initially admitted to floor; there were concerns about ability to transfuse at a faster rate and concomitant lactic acidosis; upon evaluation, patient alert, oriented, non-toxic appearing; no appreciable respiratory distress; abdomen soft, non- tender, non-distended; no appreciable additional hematemesis, melena; to admit p atient to ICU to continue transfusions Time Spent With Patient Time: Total time managing care of this patient today ____ minutes.
[2023-12-27] MEDS: 0.9 % Sodium Chloride Flush 3 ML SYRINGE IVFLUSH (09:46)
--- NOTE | 2023-12-27 09:48 | PC.NURSE ---
third infusion started over over as instructed by jet piercer operator Dr Caraballo at 350ml/hr Pt chggued water despite education to sip slowly and vomited only water back up. VSS. Fiance remains by side, mother in for quick visit. Pt color improving than on initial assessment but remains sl pale. Reports sensation for bowel movement but only dark smears noted with wiping. Breathing even and unlabored sat 100% on room air
[2023-12-27 10:33] LABS: Reflex Lactate? 2 Y
--- NOTE | 2023-12-27 10:44 | MHC.CM.PN ---
Met with patient and sig other, Catalino in regards to discharge planning. Patient lives with [place], ambulates with a walker and had no services prior to coming to the hospital. Patient denies the need for services or short term rehab at d/c. PCP verified. Copy of HCP verified to be on file. IMM explained and signed. Catalino will transport patient home when medically stable. Continue to monitor for d/c needs.
[2023-12-27] MEDS: Calcium Gluconate/NaCl,Iso-Osm 1 GM/50 ML PLAST..BAG IV (11:16)
[2023-12-27 11:22] LABS: ~Lactic Acid-LAB USE ONLY 3.7 mmol/L (0.5-2.0)
--- NOTE | 2023-12-27 12:34 | PM.EVENT ---
Event Note Date of Service: 12/27/23 Event Note: Day hospitalist update S: was lightheaded; resolved no abd pain no further hematemesis tolerating transfusion O: Temp Pulse Resp BP Pulse Ox O2 Del Method 98.6 F 64 14 124/55 L 99 Room Air 12/27/23 11:56 12/27/23 11:56 12/27/23 11:56 12/27/23 11:56 12/27/23 11:00 12/27/23 11:00 Gen: in no acute distress HEENT: sclera anicteric, pale mucus membranes Neck: supple Lungs: clear to auscultation bilaterally Heart: regular rate and rhythm, no murmurs Abd: soft, non-tender, non-distended Ext: no edema Skin: warm/well-perfused Neuro: alert and oriented x3, no focal findings Psych: appropriate affect A/P: d1 58yo M with AUD, alcoholic cirrhosis, GERD, mood disorder presenting after hematochezia, found to have profound anemia + lactic acidosis acute blood loss anemia due to acute UGIB - IV octreotide, IV pantoprazole, IV ceftriaxone; GI consult; NPO for EGD. Transfusing 4u pRBCs. Seen by industrial custodian and will be transferred to ICU for closer monitoring hypoNa - likely due to cirrhosis lactic acidosis - due to blood loss + cirrhosis EtOH cirrhosis with ascites - hold furosemide + spironolactone mood disorder - resume medications when taking POs AUD - phenobarbital taper, Addiction Medicine consult, thiamine VTE ppx - SCDs In my clinical judgment, the patient requires continued inpatient hospitalization for the following reasons: critical care Time Spent With Patient Time: Total time managing care of this patient today ____ minutes.
[2023-12-27 12:39] LABS: Hematocrit 17.5 % (42.0-52.0)
[2023-12-27] MEDS: Lactated Ringers 1,000 ML 100 ML IVCONT ×2 (13:07→21:49)
[2023-12-27] MEDS: Thiamine HCL 100 MG in 0.9 % Sodium Chloride 100 ML 202 MG IV (13:12)
[2023-12-27] MEDS: cefTRIAXone sodium 1 GM in 0.9 % Sodium Chloride 50 ML IV (14:05)
[2023-12-27 14:53] LABS: MANUAL DIFF FLAG NO
[2023-12-27 14:57] LABS: Basophils Absolute Auto 0.1 X10*3/uL (0.0-0.2); Basophils Percent Auto 0.4 % (0-2); Eosinophils Percent Auto 0.3 % (0-4); Hemoglobin 7.2 g/dl (14.0-18.0); Imm Gran Abs Auto 0.19 X10*3/uL (0.00-0.03); Imm Gran Pct Auto 1.2 % (0.0-0.4); Lymphocytes Percent Auto 6.7 % (20-40); Mean Corpuscular HGB Conc 32.7 g/dl (31.0-36.0); Mean Corpuscular Hemoglobin 27.8 pg (27.0-33.0); Mean Corpuscular Volume 84.9 fL (80.0-98.0); Mean Platelet Volume 9.5 fL (9.4-12.4); Monocytes Absolute Auto 0.9 X10*3/uL (0.1-1.2); Monocytes Percent Auto 5.5 % (2-11); Neutrophils Absolute Auto 13.4 x10*3/uL (2.0-8.3); Neutrophils Percent Auto 85.9 % (45-73); Platelet Count 124 X10*3/uL (160-400); Red Blood Count 2.59 X10*6/uL (4.60-5.80); Red Cell Distribution Width 17.3 % (11.0-16.0); White Blood Count 15.6 X10*3/uL (4.8-10.8)
[2023-12-27 15:22] LABS: Anion Gap 12 (12-20); Blood Urea Nitrogen 24 mg/dL (9-16); Calcium 7.4 mg/dL (8.4-10.2); Carbon Dioxide 25 mmol/L (22-29); Chloride 95 mmol/L (96-108); Creatinine Clr Calc Pharmacy 85.2; Estimated Glomerular Filt Rate > 60; Glucose Random 141 mg/dL (60-115); Potassium 3.7 mmol/L (3.3-5.1); Sodium 128 mmol/L (135-145)
[2023-12-27 15:23] LABS: Lactic Acid 3.5 mmol/L (0.5-2.0)
[2023-12-27] MEDS: Pantoprazole Sodium 40 MG/10 ML VIAL IVPUSH (16:35)
[2023-12-27 16:51] LABS: Reflex Lactate? Lactic Acid Added
[2023-12-27 17:49] LABS: ~Lactic Acid-LAB USE ONLY 3.4 mmol/L (0.5-2.0)
--- NOTE | 2023-12-27 18:34 | PC.NURSE ---
pt just arrived to unit in bed. Pt is alert and oriented X4, not in any apparent distress. WOB is normal and patient reports no pain. Handoff to be given to table games shift manager RN. Vital signs stable and octrotide and LR drips running per DEC
[2023-12-27 19:26] LABS: Reflex Lactate? 2 Y
[2023-12-27] MEDS: PHENobarbitaL 15 MG TABLET 45 MG PO (21:46)
[2023-12-28] VITALS (15 sets, daily range): BP systolic 98–118; BP diastolic 45–67; PULSE 62–79; RESP 16–18; TEMP 36.3–37.3; O2SAT 96–100
[2023-12-28] MEDS: Octreotide Acetate 500 MCG in 0.9 % Sodium Chloride 500 ML 50.1 MCG IVCONT ×2 (01:14→15:30)
[2023-12-28] MEDS: 0.9 % Sodium Chloride Flush 3 ML SYRINGE IVFLUSH ×2 (01:16→08:50)
[2023-12-28] MEDS: cefTRIAXone sodium 2 GM in 0.9 % Sodium Chloride 50 ML IV (03:24)
[2023-12-28] MEDS: Pantoprazole Sodium 40 MG/10 ML VIAL IVPUSH ×2 (06:36→15:57)
[2023-12-28 08:00] LABS: MANUAL DIFF FLAG NO
[2023-12-28 08:10] LABS: Basophils Absolute Auto 0.1 X10*3/uL (0.0-0.2); Basophils Percent Auto 0.7 % (0-2); Eosinophils Absolute Auto 0.4 X10*3/uL (0.0-0.4); Eosinophils Percent Auto 3.4 % (0-4); Imm Gran Abs Auto 0.09 X10*3/uL (0.00-0.03); Imm Gran Pct Auto 0.9 % (0.0-0.4); Lymphocytes Absolute Auto 0.9 X10*3/uL (1.2-4.9); Lymphocytes Percent Auto 8.6 % (20-40); Mean Corpuscular HGB Conc 32.5 g/dl (31.0-36.0); Mean Corpuscular Hemoglobin 27.7 pg (27.0-33.0); Mean Corpuscular Volume 85.1 fL (80.0-98.0); Mean Platelet Volume 9.8 fL (9.4-12.4); Monocytes Absolute Auto 0.7 X10*3/uL (0.1-1.2); Neutrophils Absolute Auto 8.4 x10*3/uL (2.0-8.3); Neutrophils Percent Auto 79.4 % (45-73); Platelet Count 124 X10*3/uL (160-400); Red Blood Count 2.35 X10*6/uL (4.60-5.80); Red Cell Distribution Width 17.7 % (11.0-16.0); White Blood Count 10.5 X10*3/uL (4.8-10.8)
[2023-12-28 08:14] LABS: Fibrinogen 276 MG/DL (259-690); INTERNATIONAL NORM RATIO 1.3 (0.9-1.1); Prothrombin Time 15.7 SEC (11.1-13.3)
[2023-12-28 08:16] LABS: Lactic Acid 1.7 mmol/L (0.5-2.0)
[2023-12-28 08:23] LABS: Alanine Aminotransferase 12 U/L (0-40); Albumin Level 1.9 g/dL (3.5-5.0); Alkaline Phosphatase 226 U/L (39-117); Anion Gap 12 (12-20); Aspartate Amino Transferase 43 U/L (5-37); Blood Urea Nitrogen 19 mg/dL (9-16); Calcium 7.3 mg/dL (8.4-10.2); Carbon Dioxide 27 mmol/L (22-29); Chloride 95 mmol/L (96-108); Creatinine Clr Calc Pharmacy 92.1; Estimated Glomerular Filt Rate > 60; Glucose Random 108 mg/dL (60-115); Magnesium 2.1 mg/dL (1.6-2.6); Potassium 3.3 mmol/L (3.3-5.1); Sodium 131 mmol/L (135-145); Total Protein 5.6 g/dL (6.5-8.0)
[2023-12-28 08:30] LABS: Hemoglobin 6.5 g/dl (14.0-18.0)
[2023-12-28] MEDS: PHENobarbitaL 15 MG TABLET 45 MG PO ×2 (08:49→20:39)
[2023-12-28] MEDS: Thiamine HCL 100 MG in 0.9 % Sodium Chloride 100 ML 202 MG IV (08:52)
[2023-12-28] MEDS: Lactated Ringers 1,000 ML 100 ML IVCONT (10:10)
--- NOTE | 2023-12-28 10:11 | P.PNIM_ITS ---
Subjective Subjective Date of Service: 12/28/23 Interval History: no lightheadedness no abd pain NPO for EGD Hb 7.2->6.8 Review of Systems Review of Systems: Yes all other systems are reviewed and are negative Physical Exam 2 Vital Signs: Vital Signs: Last Vital Signs Temp 97.6 F 12/28/23 07:30 Pulse 62 12/28/23 07:30 Resp 18 12/28/23 07:30 BP 111/56 L 12/28/23 07:30 Pulse Ox 98 12/28/23 07:30 O2 Del Method Room Air 12/28/23 07:30 BMI result Body Mass Index 32.7 Gen: in no acute distress HEENT: sclera anicteric, moist/pale mucus membranes Neck: supple Lungs: clear to auscultation bilaterally Heart: regular rate and rhythm, no murmurs Abd: soft, non-tender, non-distended Ext: no edema Skin: warm/well-perfused Neuro: alert and oriented x3, no focal findings Psych: appropriate affect Objective Data Active Medications Acetaminophen (Acetaminophen 325 Mg Tablet) 650 mg PO Q6H PRN PRN Reason: Pain, Mild (Pain Scale 1-3) Octreotide Acetate 500 mcg/ (Sodium Chloride) 501 mls @ 50.1 mls/hr IVCONT .Q10H [facility] Last Admin: 12/28/23 06:39 Dose: Not Given Documented By: WILLIAM Non-Admin Reason: IV Running Thiamine HCl 100 mg/ Sodium (Chloride) 101 mls @ 202 mls/hr IV DAILY [facility] Last Infusion: 12/28/23 09:32 Dose: Infused Documented By: DANICA Lactated Ringer's (Lr) 1,000 mls @ 100 mls/hr IVCONT .Q10H [facility] Last Admin: 12/28/23 10:10 Dose: 100 mls/hr Documented By: DANICA Ceftriaxone Sodium 2 gm/ (Sodium Chloride) 50 mls @ 100 mls/hr IV Q24H [facility] Last Infusion: 12/28/23 03:54 Dose: Infused Documented By: WILLIAM Melatonin (Melatonin 3 Mg Tablet) 6 mg PO BEDTIME PRN PRN Reason: Insomnia Ondansetron HCl (Ondansetron Hcl 4 Mg/2 Ml Vial) 4 mg IVPUSH Q4H PRN PRN Reason: Nausea and Vomiting Pantoprazole Sodium (Pantoprazole Sodium 40 Mg/10 Ml Vial) 40 mg IVPUSH BID@0630,0670 [facility] Last Admin: 12/28/23 06:36 Dose: 40 mg Documented By: WILLIAM Pharmacy Consult (Consult Rx Etoh Phenob Im/Po) 1 each MISCELLANE ONCE PRN; Protocol PRN Reason: Consult order Phenobarbital (Phenobarbital 15 Mg Tablet) 45 mg PO BID [facility]; Protocol Stop: 12/29/23 09:01 Last Admin: 12/28/23 08:49 Dose: 45 mg Documented By: DANICA Phenobarbital (Phenobarbital 30 Mg Tablet) 30 mg PO BID [facility]; Protocol Stop: 12/31/23 09:01 Phenobarbital (Phenobarbital 15 Mg Tablet) 15 mg PO DAILY [facility]; Protocol Stop: 01/02/24 09:01 Sodium Chloride (0.9 % Sodium Chloride Flush 3 Ml Syringe) 3 ml [facility]FLUSH [facility] Last Admin: 12/28/23 08:50 Dose: 3 ml Documented By: DANICA Labs 12/28/23 07:18 12/28/23 07:18 Labs: Laboratory Results - last 24 hr 12/27/23 12/27/23 12/27/23 00:25 11:02 14:44 MCV MCH MCHC RDW Plt Count MPV Immature Gran % (Auto) Neut % (Auto) Lymph % (Auto) [place] % (Auto) Eos % (Auto) Baso % (Auto) Lymph # (Auto) [place] # (Auto) Eos # (Auto) Baso # (Auto) Abs Immat Gran (auto) Absolute Neuts (auto) Absolute Nucleated RBC Nucleated RBC % (auto) Smear Path Review SEE NOTE PT INR Fibrinogen Anion Gap Estim Creat Clear Calc Estimated GFR Random Glucose Lactic Acid 3.5 H* Lactic Acid F/U @ 2Hr Lactic Acid F/U @ 4Hr 3.7 H* Calcium Magnesium Total Bilirubin AST ALT Alkaline Phosphatase Total Protein Albumin Blood Type A Positive Antibody Screen NEGATIVE Crossmatch See Detail 12/27/23 12/27/23 12/27/23 14:46 17:22 19:37 MCV 84.9 MCH 27.8 MCHC 32.7 RDW 17.3 H Plt Count 124 L MPV 9.5 Immature Gran % (Auto) 1.2 H Neut % (Auto) 85.9 H Lymph % (Auto) 6.7 L [place] % (Auto) 5.5 Eos % (Auto) 0.3 Baso % (Auto) 0.4 Lymph # (Auto) 1.0 L [place] # (Auto) 0.9 Eos # (Auto) 0.0 Baso # (Auto) 0.1 Abs Immat Gran (auto) 0.19 H Absolute Neuts (auto) 13.4 H Absolute Nucleated RBC 0.000 Nucleated RBC % (auto) 0.0 Smear Path Review PT INR Fibrinogen Anion Gap 12 Estim Creat Clear Calc 85.2 Estimated GFR > 60 Random Glucose 141 H Lactic Acid Lactic Acid F/U @ 2Hr 3.4 H* Lactic Acid F/U @ 4Hr 3.0 H* Calcium 7.4 L Magnesium Total Bilirubin AST ALT Alkaline Phosphatase Total Protein Albumin Blood Type Antibody Screen Crossmatch 12/28/23 07:18 MCV 85.1 MCH 27.7 MCHC 32.5 RDW 17.7 H Plt Count 124 L MPV 9.8 Immature Gran % (Auto) 0.9 H Neut % (Auto) 79.4 H Lymph % (Auto) 8.6 L [place] % (Auto) 7.0 Eos % (Auto) 3.4 Baso % (Auto) 0.7 Lymph # (Auto) 0.9 L [place] # (Auto) 0.7 Eos # (Auto) 0.4 Baso # (Auto) 0.1 Abs Immat Gran (auto) 0.09 H Absolute Neuts (auto) 8.4 H Absolute Nucleated RBC 0.000 Nucleated RBC % (auto) 0.0 Smear Path Review PT 15.7 H INR 1.3 H Fibrinogen 276 Anion Gap 12 Estim Creat Clear Calc 92.1 Estimated GFR > 60 Random Glucose 108 Lactic Acid 1.7 Lactic Acid F/U @ 2Hr Lactic Acid F/U @ 4Hr Calcium 7.3 L Magnesium 2.1 Total Bilirubin 4.0 H AST 43 H ALT 12 Alkaline Phosphatase 226 H Total Protein 5.6 L Albumin 1.9 L Blood Type Antibody Screen Crossmatch Assessment and Plan (1) Acute GI bleeding: Status: Acute Plan d2 58yo M with AUD, alcoholic cirrhosis, GERD, mood disorder presenting after hematochezia, found to have profound anemia + lactic acidosis. Briefly in ICU 12/27/23 for closer monitoring. acute blood loss anemia due to acute UGIB - IV octreotide, IV pantoprazole, IV ceftriaxone; GI consulted for EGD, planned for today. Transfused 4u pRBCs yesterday with Hb 3.7->7.2; 6.5 today, will give another 2u pRBCs. hypoNa - likely due to cirrhosis, stable lactic acidosis - due to blood loss + cirrhosis EtOH cirrhosis with ascites - hold furosemide + spironolactone mood disorder - resume medications when taking POs AUD - phenobarbital taper, Addiction Medicine consult, thiamine VTE ppx - SCDs In my clinical judgment, the patient requires continued inpatient hospitalization for the following reasons: EGD Total time managing care of this patient today: 45 minutes. Quality Stroke Does the patient have a stroke diagnosis?: No VTE Prior VTE?: No VTE Risk Level:: Medical - moderate - high VTE Device Contraindication: N/A - Device Ordered VTE Drug Contraindication: Treatment Not Indicated
--- NOTE | 2023-12-28 12:18 | PC.NURSE ---
LR paused due to blood transfusing and lack of IVs on patient. Patient lost an IV this morning which was reinserted in order to give blood. Patient also has octrotide running continuously. MD rothman
--- NOTE | 2023-12-28 13:38 | HO.ANESPROP2 ---
HPI - Anesthesia Eval Consult details Narrative: 58 yo male patient for EGD. Alcoholic liver cirrhosi admitted through ER for hematemesis. H/H 3.7/12.2. S/p 5u PRBC. No bleeding since admission. PMFSH Active Problems Active Problems: All Active Problems (Updated 12/28/23 @ 06:48 by Lee White MD) Alcohol dependence (Acute) Anemia (Acute) Acute hyponatremia (Acute) Acute GI bleeding (Acute) Ascites (Acute) GI bleed (Acute) Encephalopathy (Acute) Hypertension (Acute) Hyperlipidemia (Acute) Depression (Acute) NATHANIEL (acute kidney injury) (Acute) Anasarca (Acute) History of radiation therapy (Acute) Fatty liver (Acute) Anxiety (Acute) Past Medical History Medical History Acute hyponatremia Hyponatremia NATHANIEL (acute kidney injury) Acute metabolic encephalopathy [place] Alcoholic cirrhosis of liver with ascites Prostate cancer Depression Hyperlipidemia Hypertension Anxiety Family History Family history of problems with anesthesia: No Surgical History History of Problems with Anesthesia: No Social History Social History Household Members: Spouse Household Members Other:: fiancee Housing: Condominium Do you presently have visiting nurse or other home services: Yes ([place]) Alcohol intake: former Patient Tobacco Use Status: Current someday Tobacco user Tobacco use type: Cigarette Substance Use Type: Marijuana Advance Directives Date on File: 11/11/21 service: No Current occupational status: disabled Meds Allergies Allergy/AdvReac Type Severity Reaction Status Date / Time Fish Containing Products Allergy Severe THROAT Verified 11/30/23 11:41 SWELLING peanut [Peanut] Allergy Severe THROAT Verified 11/30/23 11:41 SWELLING Active Medications: Current Medications Acetaminophen (Acetaminophen 325 Mg Tablet) 650 mg PO Q6H PRN PRN Reason: Pain, Mild (Pain Scale 1-3) Octreotide Acetate 500 mcg/ (Sodium Chloride) 501 mls @ 50.1 mls/hr IVCONT .Q10H [facility] Last Admin: 12/28/23 06:39 Dose: Not Given Thiamine HCl 100 mg/ Sodium (Chloride) 101 mls @ 202 mls/hr IV DAILY [facility] Last Infusion: 12/28/23 09:32 Dose: Infused Lactated Ringer's (Lr) 1,000 mls @ 100 mls/hr IVCONT .Q10H [facility] Last Infusion: 12/28/23 10:25 Dose: 0 mls/hr Ceftriaxone Sodium 2 gm/ (Sodium Chloride) 50 mls @ 100 mls/hr IV Q24H [facility] Last Infusion: 12/28/23 03:54 Dose: Infused Lactic Acid (Ammonium Lactate 12 % Cream 140 Gm Tube) 1 appl TOPICAL BID PRN; Protocol PRN Reason: Dry Skin Melatonin (Melatonin 3 Mg Tablet) 6 mg PO BEDTIME PRN PRN Reason: Insomnia Ondansetron HCl (Ondansetron Hcl 4 Mg/2 Ml Vial) 4 mg IVPUSH Q4H PRN PRN Reason: Nausea and Vomiting Pantoprazole Sodium (Pantoprazole Sodium 40 Mg/10 Ml Vial) 40 mg IVPUSH BID@0630,1630 [facility] Last Admin: 12/28/23 06:36 Dose: 40 mg Pharmacy Consult (Consult Rx Etoh Phenob Im/Po) 1 each MISCELLANE ONCE PRN; Protocol PRN Reason: Consult order Phenobarbital (Phenobarbital 15 Mg Tablet) 45 mg PO BID [facility]; Protocol Stop: 12/29/23 09:01 Last Admin: 12/28/23 08:49 Dose: 45 mg Phenobarbital (Phenobarbital 30 Mg Tablet) 30 mg PO BID [facility]; Protocol Stop: 12/31/23 09:01 Phenobarbital (Phenobarbital 15 Mg Tablet) 15 mg PO DAILY [facility]; Protocol Stop: 01/02/24 09:01 Sodium Chloride (0.9 % Sodium Chloride Flush 3 Ml Syringe) 3 ml IVFLUSH QSHIFT [facility] Last Admin: 12/28/23 08:50 Dose: 3 ml Home Medications Medication Instructions Recorded Confirmed Last Taken Type lactulose 10 gram/15 mL oral 30 ml PO TID PRN Constipation 11/11/21 12/27/23 02/28/22 History solution (Constulose) pantoprazole 40 mg tablet,delayed 1 tab PO DAILY 11/11/21 12/27/23 10/17/22 History release propranolol 10 mg tablet 1 tab PO TID 11/11/21 12/27/23 10/17/22 History topiramate 200 mg tablet (Topamax) 1 tab PO BID 11/11/21 12/27/23 10/17/22 History fluoxetine 20 mg capsule (Prozac) 60 mg PO DAILY 02/06/22 12/27/23 10/17/22 History furosemide 40 mg tablet 1 tab PO DAILY 10/17/22 12/27/23 10/16/22 History spironolactone 100 mg tablet 1 tab PO DAILY 10/17/22 12/27/23 10/16/22 History tamsulosin 0.4 mg capsule 0.4 mg PO BEDTIME 10/17/22 12/27/23 10/16/22 History hydroxyzine HCl 25 mg tablet 25 - 50 mg PO BID PRN anxiety 11/13/23 12/27/23 Unknown History melatonin 10 mg tablet 10 mg PO BEDTIME PRN Insomnia 11/13/23 12/27/23 Unknown History mirtazapine 15 mg tablet 15 mg PO BEDTIME 11/13/23 12/27/23 Unknown History ondansetron 4 mg disintegrating 4 mg PO Q8H PRN Nausea 11/13/23 12/27/23 Unknown History tablet quetiapine 25 mg tablet (Seroquel) 12.5 mg PO BID PRN anxiety 11/13/23 12/27/23 Unknown History quetiapine 50 mg tablet (Seroquel) 50 mg PO BID 12/27/23 12/27/23 Unknown History risperidone 2 mg tablet 2 mg PO BEDTIME 12/27/23 12/27/23 Unknown History Exam Height,Weight and Vital Signs: Height 5 ft 8 in Weight 97.6 kg Last Vital Signs Temp 98.6 F 12/28/23 13:26 Pulse 64 12/28/23 13:26 Resp 16 12/28/23 13:26 BP 106/45 L 12/28/23 13:26 Pulse Ox 99 12/28/23 13:03 O2 Del Method Room Air 12/28/23 13:03 Pertinent Lab Results Pertinent Lab Results: Laboratory Tests 12/27/23 12/27/23 12/27/23 00:25 03:17 03:42 WBC 21.9 H RBC 1.47 L D Hgb 3.7 L* D Hct 12.2 L* D MCV 83.0 MCH 25.2 L MCHC 30.3 L RDW 21.6 H Plt Count 197 D MPV 9.4 Immature Gran % (Auto) 1.2 H Neut % (Auto) 80.3 H Lymph % (Auto) 11.8 L [place] % (Auto) 6.4 Eos % (Auto) 0.1 Baso % (Auto) 0.2 Lymph # (Auto) 2.6 [place] # (Auto) 1.4 H Eos # (Auto) 0.0 Baso # (Auto) 0.0 Abs Immat Gran (auto) 0.26 H Absolute Neuts (auto) 17.6 H Absolute Nucleated RBC 0.030 H Nucleated RBC % (auto) 0.1 Smear Path Review SEE NOTE PT 16.6 H INR 1.4 H APTT 31.9 Fibrinogen 273 Hold Blue Top SEE NOTE VBG pH VBG pCO2 VBG pO2 VBG HCO3 VBG O2 Saturation VBG Base Excess Sodium 128 L Potassium 3.3 Chloride 93 L Carbon Dioxide 23 Anion Gap 15 BUN 27 H Creatinine 1.18 Estim Creat Clear Calc 77.2 Estimated GFR > 60 Random Glucose 153 H Lactic Acid 8.5 H* Lactic Acid F/U @ 2Hr 7.3 H* Lactic Acid F/U @ 4Hr Calcium 7.3 L Magnesium 1.9 Total Bilirubin 2.9 H Direct Bilirubin 1.9 H AST 37 ALT 13 Alkaline Phosphatase 276 H Troponin I High Sens < 2.7 B-Natriuretic Peptide 48 Total Protein 6.0 L Albumin 2.1 L Lipase 61 Stool Occult Blood POSITIVE Ethyl Alcohol 78 Blood Type A Positive Antibody Screen NEGATIVE Crossmatch See Detail 12/27/23 12/27/23 12/27/23 05:14 05:15 08:27 WBC 20.0 H RBC 1.68 L Hgb 4.5 L* D 5.7 L* D Hct 14.2 L* 17.5 L* D MCV 84.5 MCH 26.8 L MCHC 31.7 RDW 20.2 H Plt Count 147 L D MPV 9.8 Immature Gran % (Auto) 1.1 H Neut % (Auto) 84.9 H Lymph % (Auto) 8.0 L [place] % (Auto) 5.2 Eos % (Auto) 0.6 Baso % (Auto) 0.2 Lymph # (Auto) 1.6 [place] # (Auto) 1.0 Eos # (Auto) 0.1 Baso # (Auto) 0.0 Abs Immat Gran (auto) 0.21 H Absolute Neuts (auto) 17.0 H Absolute Nucleated RBC 0.000 Nucleated RBC % (auto) 0.0 Smear Path Review PT INR APTT Fibrinogen Hold Blue Top VBG pH 7.57 H VBG pCO2 23 VBG pO2 60 VBG HCO3 21 L VBG O2 Saturation Not Reportable VBG Base Excess 0.1 Sodium 131 L Potassium 3.6 Chloride 95 L Carbon Dioxide 20 L Anion Gap 20 BUN 25 H Creatinine 1.05 Estim Creat Clear Calc 86.8 Estimated GFR > 60 Random Glucose 113 Lactic Acid 7.7 H* Lactic Acid F/U @ 2Hr 3.9 H* Lactic Acid F/U @ 4Hr Calcium 7.0 L Magnesium Total Bilirubin Direct Bilirubin AST ALT Alkaline Phosphatase Troponin I High Sens B-Natriuretic Peptide Total Protein Albumin Lipase Stool Occult Blood Ethyl Alcohol Blood Type Antibody Screen Crossmatch 12/27/23 12/27/23 12/27/23 11:02 14:44 14:46 WBC 15.6 H RBC 2.59 L D Hgb 7.2 L D Hct 22.0 L D MCV 84.9 MCH 27.8 MCHC 32.7 RDW 17.3 H Plt Count 124 L MPV 9.5 Immature Gran % (Auto) 1.2 H Neut % (Auto) 85.9 H Lymph % (Auto) 6.7 L [place] % (Auto) 5.5 Eos % (Auto) 0.3 Baso % (Auto) 0.4 Lymph # (Auto) 1.0 L [place] # (Auto) 0.9 Eos # (Auto) 0.0 Baso # (Auto) 0.1 Abs Immat Gran (auto) 0.19 H Absolute Neuts (auto) 13.4 H Absolute Nucleated RBC 0.000 Nucleated RBC % (auto) 0.0 Smear Path Review PT INR APTT Fibrinogen Hold Blue Top VBG pH VBG pCO2 VBG pO2 VBG HCO3 VBG O2 Saturation VBG Base Excess Sodium 128 L Potassium 3.7 Chloride 95 L Carbon Dioxide 25 Anion Gap 12 BUN 24 H Creatinine 1.07 Estim Creat Clear Calc 85.2 Estimated GFR > 60 Random Glucose 141 H Lactic Acid 3.5 H* Lactic Acid F/U @ 2Hr Lactic Acid F/U @ 4Hr 3.7 H* Calcium 7.4 L Magnesium Total Bilirubin Direct Bilirubin AST ALT Alkaline Phosphatase Troponin I High Sens B-Natriuretic Peptide Total Protein Albumin Lipase Stool Occult Blood Ethyl Alcohol Blood Type Antibody Screen Crossmatch 12/27/23 12/27/23 12/28/23 17:22 19:37 07:18 WBC 10.5 RBC 2.35 L Hgb 6.5 L* Hct 20.0 L* MCV 85.1 MCH 27.7 MCHC 32.5 RDW 17.7 H Plt Count 124 L MPV 9.8 Immature Gran % (Auto) 0.9 H Neut % (Auto) 79.4 H Lymph % (Auto) 8.6 L [place] % (Auto) 7.0 Eos % (Auto) 3.4 Baso % (Auto) 0.7 Lymph # (Auto) 0.9 L [place] # (Auto) 0.7 Eos # (Auto) 0.4 Baso # (Auto) 0.1 Abs Immat Gran (auto) 0.09 H Absolute Neuts (auto) 8.4 H Absolute Nucleated RBC 0.000 Nucleated RBC % (auto) 0.0 Smear Path Review PT 15.7 H INR 1.3 H APTT Fibrinogen 276 Hold Blue Top VBG pH VBG pCO2 VBG pO2 VBG HCO3 VBG O2 Saturation VBG Base Excess Sodium 131 L Potassium 3.3 Chloride 95 L Carbon Dioxide 27 Anion Gap 12 BUN 19 H Creatinine 0.99 Estim Creat Clear Calc 92.1 Estimated GFR > 60 Random Glucose 108 Lactic Acid 1.7 Lactic Acid F/U @ 2Hr 3.4 H* Lactic Acid F/U @ 4Hr 3.0 H* Calcium 7.3 L Magnesium 2.1 Total Bilirubin 4.0 H Direct Bilirubin AST 43 H ALT 12 Alkaline Phosphatase 226 H Troponin I High Sens B-Natriuretic Peptide Total Protein 5.6 L Albumin 1.9 L Lipase Stool Occult Blood Ethyl Alcohol Blood Type Antibody Screen Crossmatch Airway Mallampati Class: II TM Dist: >3cm Neck ROM: Full Loose/Missing/Broken Teeth: Yes (Missing teeth. Denies loose or broken teeth. Laceration lower lip left) Heart: RRR Lungs: CTAB Assessment and Plan Assessment Anesthesia Assessment: Anesthesia Plan Discussed and Chart Reviewed Final Anesthetic Review Family History of Problems with Anesthesia: No History of Problems with Anesthesia: No NPO: Yes ASA Class: IV and Emergency Final Preanesthetic Review: No Changes in Pt Med Stat, Meds/Allgs Chart Reviewed, Consent Obtained/Reviewed and Anes Risks/Benef Reviewed Patient Risk: High Procedure Risk: Intermediate Assessment/Block/Sedation in SS: Assess/Block/Sedation- Anesthetic Plan Anesthetic Plan: GA, MAC: and TIVA Disposition: Standard PACU and Inp. Admit - [facility]
--- NOTE | 2023-12-28 13:45 | P.PNGI_ITS ---
Subjective Subjective Date of Service: 12/28/23 Interval History: Still notes melena denies abdominal pain no further vomiting feels hungry Critical Care Time (minutes): 0 Physical Exam 2 Vital Signs: Vital Signs: Last Vital Signs Temp 98.6 F 12/28/23 13:26 Pulse 64 12/28/23 13:26 Resp 16 12/28/23 13:26 BP 106/45 L 12/28/23 13:26 Pulse Ox 99 12/28/23 13:03 O2 Del Method Room Air 12/28/23 13:03 BMI result Body Mass Index 32.7 EXAM: GENERAL: The patient is dishevelled VITAL SIGNS:see workflow HEENT: icteric sclerae, PERRLA, EOMI. Oropharynx clear. Moist mucous membranes. Conjunctivae appear pale. No thyroid mass. CHEST: Chest wall is nontender. HEART: Regular rate and rhythm without murmurs. LUNGS: Clear to auscultation bilaterally. ABDOMEN: Soft, positive bowel sounds, nontender, no organomegaly.no flank tenderness--distended SKIN: No rash, no excessive bruising, petechiae, or purpura. NEUROLOGIC: Cranial nerves II-XII intact without motor/sensory deficit. Psych: normal affect Objective Data Labs 12/28/23 07:18 12/28/23 07:18 Labs: Laboratory Results - last 24 hr 12/27/23 12/27/23 12/27/23 00:25 14:44 14:46 WBC 15.6 H RBC 2.59 L D Hgb 7.2 L D Hct 22.0 L D MCV 84.9 MCH 27.8 MCHC 32.7 RDW 17.3 H Plt Count 124 L MPV 9.5 Immature Gran % (Auto) 1.2 H Neut % (Auto) 85.9 H Lymph % (Auto) 6.7 L [place] % (Auto) 5.5 Eos % (Auto) 0.3 Baso % (Auto) 0.4 Lymph # (Auto) 1.0 L [place] # (Auto) 0.9 Eos # (Auto) 0.0 Baso # (Auto) 0.1 Abs Immat Gran (auto) 0.19 H Absolute Neuts (auto) 13.4 H Absolute Nucleated RBC 0.000 Nucleated RBC % (auto) 0.0 PT INR Fibrinogen Sodium 128 L Potassium 3.7 Chloride 95 L Carbon Dioxide 25 Anion Gap 12 BUN 24 H Creatinine 1.07 Estim Creat Clear Calc 85.2 Estimated GFR > 60 Random Glucose 141 H Lactic Acid 3.5 H* Lactic Acid F/U @ 2Hr Lactic Acid F/U @ 4Hr Calcium 7.4 L Magnesium Total Bilirubin AST ALT Alkaline Phosphatase Total Protein Albumin Blood Type A Positive Antibody Screen NEGATIVE Crossmatch See Detail 12/27/23 12/27/23 12/28/23 17:22 19:37 07:18 WBC 10.5 RBC 2.35 L Hgb 6.5 L* Hct 20.0 L* MCV 85.1 MCH 27.7 MCHC 32.5 RDW 17.7 H Plt Count 124 L MPV 9.8 Immature Gran % (Auto) 0.9 H Neut % (Auto) 79.4 H Lymph % (Auto) 8.6 L [place] % (Auto) 7.0 Eos % (Auto) 3.4 Baso % (Auto) 0.7 Lymph # (Auto) 0.9 L [place] # (Auto) 0.7 Eos # (Auto) 0.4 Baso # (Auto) 0.1 Abs Immat Gran (auto) 0.09 H Absolute Neuts (auto) 8.4 H Absolute Nucleated RBC 0.000 Nucleated RBC % (auto) 0.0 PT 15.7 H INR 1.3 H Fibrinogen 276 Sodium 131 L Potassium 3.3 Chloride 95 L Carbon Dioxide 27 Anion Gap 12 BUN 19 H Creatinine 0.99 Estim Creat Clear Calc 92.1 Estimated GFR > 60 Random Glucose 108 Lactic Acid 1.7 Lactic Acid F/U @ 2Hr 3.4 H* Lactic Acid F/U @ 4Hr 3.0 H* Calcium 7.3 L Magnesium 2.1 Total Bilirubin 4.0 H AST 43 H ALT 12 Alkaline Phosphatase 226 H Total Protein 5.6 L Albumin 1.9 L Blood Type Antibody Screen Crossmatch Procedures Date of Service Date of Service: 12/28/23 Progress Note: A&P Assessment and plan (1) Acute GI bleeding: Status: Acute (2) Alcoholic cirrhosis of liver with ascites: Status: Acute Plan 1/ Anemia and bloody emesis, improved, no longer having emesis, but still having melena 2/ Abn LFt, consistent with alcoholic hepatitis, 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 Quality Stroke Does the patient have a stroke diagnosis?: No VTE Prior VTE?: No VTE Risk Level:: Medical - moderate - high VTE Device Contraindication: N/A - Device Ordered VTE Drug Contraindication: Treatment Not Indicated
--- NOTE | 2023-12-28 13:51 | MHC.SHP ---
Pre-Procedural Eval Section A - 24 Hr Update-Section A only Date of Service: 12/28/23 The patient is an INPATIENT: Yes The patient has been examined within 24 hours of the surgical procedure. The History & Physical has been completed within 30 days and I have reviewed it.: Yes Section B - Complete if H&P > 30 days Chief Complaint: GI bleed Allergies: Allergies Allergy/AdvReac Type Severity Reaction Status Date / Time Fish Containing Products Allergy Severe THROAT Verified 11/30/23 11:41 SWELLING peanut [Peanut] Allergy Severe THROAT Verified 11/30/23 11:41 SWELLING Plan Diagnosis/Plan: Unchanged I have reviewed the history and physical and performed a pertinent physical examination on my patient. No changes have occurred unless specified. EGD Time Spent With Patient Time: Total time managing care of this patient today ____ minutes.
--- NOTE | 2023-12-28 14:21 | P.OP_ITS ---
Operative Note Operative Note Date of Service: 12/28/23 Narrative: Procedure Description: EGD Indication: anemia Anesthesia: MAC FLEXIBLE TRANSORAL UPPER GASTROINTESTINAL ENDOSCOPY UPPER ENDOSCOPY Consent: Indications for the procedure and potential complications of bleeding, perforation, reaction to medications and missed diagnosis were discussed with the patient and informed consent was obtained. Instrument: Olympus GIF H 190 J mid size upper endoscope Monitoring: Vital signs and clinical assessment, continuous EKG monitoring, Pulse oximetry, Carbon Dioxide monitoring and blood pressure monitoring were done throughout the procedure. Procedure: The patient was placed in the left lateral decubitis position and pre-procedure medications were administered and a bite block was placed. The endoscope was inserted into the mouth and advanced under direct vision to the third part of duodenum. A careful inspection was made as the upper endoscope was withdrawn including a retroflexed examination of the proximal stomach; Findings and interventions are described below. Findings: Larynx:normal Esophagus: GE junction at 37 cm, diaphragm hiatus at 40 cm, consistent with 2 cm sliding hiatal hernia. non obstructing schatzki ring noted. 2 columns of grade I varices noted which collpased with air. Erosive esophagitis noted with slough in the distal esophagus. A rim of erythema noted just below the schatzki ring, non bleeding Stomach: Mosaic pattern consistent with portal hypertensive gastropathy Grade 2 flap valve on retroflexed examination of the cardia. No gastric varices see or active bleeding. Duodenum: small non bleeding AVM noted in the bulb, congestive duodenopathy noted. Intervention: None Impression/Findings: schatzki ring hiatal hernia erosive esophagitis esophageal varices portal hypertensive gastropathy and duodenopathy PLAN: no active bleeding or target lesions recommend going on home with carafate BID and PPI if BP allows then low dose statin and beta vera like carvedilol f/u with primary GI at [facility] and repeat EGD in about 4 weeks to reassess varices and esophagitis GERD precautions if HGB conts to drop check hemolysis labs
--- NOTE | 2023-12-28 14:42 | PM.EVENT ---
Event Note Date of Service: 12/28/23 Event Note: Addiction consult placed for patient with GI bleed and alcohol use Attempted to see patient X2 today and still not back from EGD Patient's fiancee in the room during second attempt Resources given to her for patient and informed her that we would follow up tmrw morning Time Spent With Patient Time: Total time managing care of this patient today ____ minutes.
[2023-12-29] VITALS (8 sets, daily range): BP systolic 101–133; BP diastolic 59–69; PULSE 60–74; RESP 16–20; TEMP 36.1–37.2; O2SAT 93–99
[2023-12-29] MEDS: Octreotide Acetate 500 MCG in 0.9 % Sodium Chloride 500 ML 50.1 MCG IVCONT (01:12)
[2023-12-29] MEDS: cefTRIAXone sodium 2 GM in 0.9 % Sodium Chloride 50 ML IV (03:00)
[2023-12-29] MEDS: Pantoprazole Sodium 40 MG/10 ML VIAL IVPUSH (05:54)
[2023-12-29] MEDS: 0.9 % Sodium Chloride Flush 3 ML SYRINGE IVFLUSH ×2 (08:53→15:49)
[2023-12-29] MEDS: Furosemide 40 MG TABLET PO (08:54)
[2023-12-29] MEDS: FLUoxetine HCl 20 MG CAPSULE 60 MG PO (08:54)
[2023-12-29] MEDS: Spironolactone 25 MG TABLET 100 MG PO (08:54)
[2023-12-29] MEDS: Ammonium Lactate 12 % Cream 140 GM TUBE 1 APPL TOPICAL (08:54)
[2023-12-29] MEDS: PHENobarbitaL 15 MG TABLET 45 MG PO (08:55)
[2023-12-29] MEDS: QUEtiapine Fumarate 50 MG TABLET PO ×2 (08:55→20:50)
[2023-12-29 09:40] LABS: MANUAL DIFF FLAG NO
[2023-12-29 09:42] LABS: Basophils Absolute Auto 0.1 X10*3/uL (0.0-0.2); Basophils Percent Auto 0.8 % (0-2); Eosinophils Absolute Auto 0.5 X10*3/uL (0.0-0.4); Eosinophils Percent Auto 5.6 % (0-4); Hematocrit 27.8 % (42.0-52.0); Imm Gran Abs Auto 0.06 X10*3/uL (0.00-0.03); Imm Gran Pct Auto 0.7 % (0.0-0.4); Lymphocytes Percent Auto 11.4 % (20-40); Mean Corpuscular HGB Conc 32.4 g/dl (31.0-36.0); Mean Corpuscular Hemoglobin 27.8 pg (27.0-33.0); Mean Corpuscular Volume 85.8 fL (80.0-98.0); Mean Platelet Volume 9.7 fL (9.4-12.4); Monocytes Absolute Auto 0.8 X10*3/uL (0.1-1.2); Monocytes Percent Auto 8.7 % (2-11); Neutrophils Absolute Auto 6.7 x10*3/uL (2.0-8.3); Neutrophils Percent Auto 72.8 % (45-73); Platelet Count 116 X10*3/uL (160-400); Red Blood Count 3.24 X10*6/uL (4.60-5.80); Red Cell Distribution Width 18.6 % (11.0-16.0); White Blood Count 9.2 X10*3/uL (4.8-10.8)
[2023-12-29 09:59] LABS: Alanine Aminotransferase 14 U/L (0-40); Albumin Level 1.9 g/dL (3.5-5.0); Alkaline Phosphatase 239 U/L (39-117); Aspartate Amino Transferase 64 U/L (5-37); Bilirubin Direct 2.4 mg/dL (0.0-0.5); Bilirubin Total 3.6 mg/dL (0.0-1.0); Total Protein 5.8 g/dL (6.5-8.0)
[2023-12-29 10:08] LABS: Anion Gap 12 (12-20); Blood Urea Nitrogen 13 mg/dL (9-16); Calcium 7.1 mg/dL (8.4-10.2); Carbon Dioxide 21 mmol/L (22-29); Chloride 97 mmol/L (96-108); Creatinine Clr Calc Pharmacy 90.2; Estimated Glomerular Filt Rate > 60; Glucose Random 128 mg/dL (60-115); Potassium 3.2 mmol/L (3.3-5.1); Sodium 127 mmol/L (135-145)
[2023-12-29] MEDS: Topiramate 100 MG TABLET 200 MG PO ×2 (10:15→20:50)
--- NOTE | 2023-12-29 10:41 | HO.PM.IMPN ---
Subjective Subjective Date of Service: 12/29/23 Interval History: EGD done yesterday, tolerating clears, no abd pain Review of Systems Review of Systems: Yes all other systems are reviewed and are negative Physical Exam Vital Signs: Vital Signs: Last Vital Signs Temp 96.9 F 12/29/23 07:00 Pulse 63 12/29/23 07:00 Resp 18 12/29/23 07:00 BP 110/59 L 12/29/23 07:00 Pulse Ox 99 12/29/23 07:00 O2 Del Method Room Air 12/29/23 07:00 O2 Flow Rate 6 12/28/23 14:30 BMI result Body Mass Index 32.7 Gen: in no acute distress HEENT: sclera anicteric, moist mucus membranes Neck: supple Lungs: clear to auscultation bilaterally Heart: regular rate and rhythm, no murmurs Abd: soft, non-tender, non-distended Ext: no edema Skin: warm/well-perfused Neuro: alert and oriented x3, no focal findings Psych: appropriate affect Objective Data Active Medications Acetaminophen (Acetaminophen 325 Mg Tablet) 650 mg PO Q6H PRN PRN Reason: Pain, Mild (Pain Scale 1-3) Fluoxetine HCl (Fluoxetine Hcl 20 Mg Capsule) 60 mg PO DAILY [facility] Last Admin: 12/29/23 08:54 Dose: 60 mg Documented By: DANICA Furosemide (Furosemide 40 Mg Tablet) 40 mg PO DAILY [facility]; Protocol Last Admin: 12/29/23 08:54 Dose: 40 mg Documented By: DANICA Hydroxyzine HCl (Hydroxyzine Hcl 25 Mg Tablet) 25 - 50 mg PO BID PRN PRN Reason: anxiety Ceftriaxone Sodium 1 gm/ (Sodium Chloride) 50 mls @ 100 mls/hr IV Q24H [facility] Lactic Acid (Ammonium Lactate 12 % Cream 140 Gm Tube) 1 appl TOPICAL BID PRN; Protocol PRN Reason: Dry Skin Last Admin: 12/29/23 08:54 Dose: 1 appl Documented By: DANICA Lactulose (Lactulose 20 Gm/30 Ml Solution) 20 gm PO TID PRN PRN Reason: Constipation Melatonin (Melatonin 3 Mg Tablet) 6 mg PO BEDTIME PRN PRN Reason: Insomnia Melatonin (Melatonin 3 Mg Tablet) 9 mg PO BEDTIME PRN PRN Reason: Insomnia Mirtazapine (Mirtazapine 15 Mg Tablet) 15 mg PO BEDTIME [facility] Omeprazole (Omeprazole 20 Mg Capsule.Dr) 20 mg PO BID@0630,1630 [facility] Ondansetron HCl (Ondansetron Hcl 4 Mg/2 Ml Vial) 4 mg IVPUSH Q4H PRN PRN Reason: Nausea and Vomiting Pharmacy Consult (Consult Rx Etoh Phenob Im/Po) 1 each MISCELLANE ONCE PRN; Protocol PRN Reason: Consult order Phenobarbital (Phenobarbital 30 Mg Tablet) 30 mg PO BID [facility]; Protocol Stop: 12/31/23 09:01 Phenobarbital (Phenobarbital 15 Mg Tablet) 15 mg PO DAILY [facility]; Protocol Stop: 01/02/24 09:01 Propranolol HCl (Propranolol Hcl 10 Mg Tablet) 10 mg PO TID [facility]; Protocol Last Admin: 12/29/23 10:14 Dose: Not Given Documented By: DANICA Non-Admin Reason: low B/P getting diuretics Quetiapine Fumarate (Quetiapine Fumarate 25 Mg Tablet) 12.5 mg PO BID PRN PRN Reason: anxiety Quetiapine Fumarate (Quetiapine Fumarate 50 Mg Tablet) 50 mg PO BID [facility] Last Admin: 12/29/23 08:55 Dose: 50 mg Documented By: DANICA Risperidone (Risperidone 2 Mg Tablet) 2 mg PO BEDTIME [facility] Sodium Chloride (0.9 % Sodium Chloride Flush 3 Ml Syringe) 3 ml IVFLUSH QSHIFT [facility] Last Admin: 12/29/23 08:53 Dose: 3 ml Documented By: DANICA Spironolactone (Spironolactone 25 Mg Tablet) 100 mg PO DAILY [facility]; Protocol Last Admin: 12/29/23 08:54 Dose: 100 mg Documented By: DANICA Sucralfate (Sucralfate 1 Gm Tablet) 1 gm PO BIDAC [facility] Tamsulosin HCl (Tamsulosin Hcl 0.4 Mg Capsule) 0.4 mg PO BEDTIME [facility] Topiramate (Topiramate 100 Mg Tablet) 200 mg PO BID [facility] Last Admin: 12/29/23 10:15 Dose: 200 mg Documented By: DANICA Labs 12/29/23 09:32 12/29/23 09:31 Labs: Laboratory Results - last 24 hr 12/27/23 12/29/23 12/29/23 00:25 09:31 09:32 MCV 85.8 MCH 27.8 MCHC 32.4 RDW 18.6 H Plt Count 116 L MPV 9.7 Immature Gran % (Auto) 0.7 H Neut % (Auto) 72.8 Lymph % (Auto) 11.4 L [place] % (Auto) 8.7 Eos % (Auto) 5.6 H Baso % (Auto) 0.8 Lymph # (Auto) 1.0 L [place] # (Auto) 0.8 Eos # (Auto) 0.5 H Baso # (Auto) 0.1 Abs Immat Gran (auto) 0.06 H Absolute Neuts (auto) 6.7 Absolute Nucleated RBC 0.000 Nucleated RBC % (auto) 0.0 Anion Gap 12 Estim Creat Clear Calc 90.2 Estimated GFR > 60 Random Glucose 128 H Calcium 7.1 L Total Bilirubin 3.6 H Direct Bilirubin 2.4 H AST 64 H ALT 14 Alkaline Phosphatase 239 H Total Protein 5.8 L Albumin 1.9 L Blood Type A Positive Antibody Screen NEGATIVE Crossmatch See Detail Assessment and Plan (1) Acute GI bleeding: Status: Acute Plan d3 58yo M with AUD, alcoholic cirrhosis, GERD, mood disorder presenting after hematochezia, found to have profound anemia + lactic acidosis. Briefly in ICU 12/27/23 for closer monitoring. acute blood loss anemia due to acute UGIB - EGD 12/28/[address] White: Esophagus: GE junction at 37 cm, diaphragm hiatus at 40 cm, consistent with 2 cm sliding hiatal hernia. non obstructing schatzki ring noted. 2 columns of grade I varices noted which collpased with air. Erosive esophagitis noted with slough in the distal esophagus. A rim of erythema noted just below the schatzki ring, non bleeding Stomach: Mosaic pattern consistent with portal hypertensive gastropathy Grade 2 flap valve on retroflexed examination of the cardia. No gastric varices see or active bleeding. Duodenum: small non bleeding AVM noted in the bulb, congestive duodenopathy noted. - d/c octreotide, change to PO PPI bid and add sucralfate, continue IV ceftriaxone. Will need to f/u with own GI at [facility] in 4 wk for repeat EGD. Resume propranolol for variceal hemorrhage ppx. - transfused total 6u pRBCs and Hb has increased from 3.7 to 9; recheck in AM - advance diet today hypoK - replete PO, recheck in AM hypoNa - likely due to cirrhosis, stable; fluid-restrict lactic acidosis - due to blood loss + cirrhosis EtOH cirrhosis with ascites - resume furosemide + spironolactone EtOH hepatitis - mild, MDF 24, no steroids indicated mood disorder - resume fluoxetine, mirtazapine, risperidone, quetiapine AUD - phenobarbital taper, Addiction Medicine consult, thiamine VTE ppx - SCDs dispo - PT eval, anticipate d/c tomorrow In my clinical judgment, the patient requires continued inpatient hospitalization for the following reasons: EGD Total time managing care of this patient today: 45 minutes. Quality Stroke Does the patient have a stroke diagnosis?: No VTE Prior VTE?: No VTE Risk Level:: Medical - moderate - high VTE Device Contraindication: N/A - Device Ordered VTE Drug Contraindication: Treatment Not Indicated
--- NOTE | 2023-12-29 10:54 | HO.POSTANES ---
Post Anesthesia Evaluation Post Anesthesia Evaluation Date of Service: 12/29/23 Vital Signs: Vital Signs Temp Pulse Resp BP Pulse Ox O2 Del Method 12/29/23 07:00 96.9 F 63 18 110/59 L 99 Room Air 12/29/23 03:00 98.9 F 60 16 133/69 96 Room Air 12/28/23 23:25 97.4 F 65 18 116/63 98 Room Air Anesthesia: Monitored Mental Status: Awake Pain Control: Satisfactory Nausea/Vomiting: None Hydration: Adequate Anesthesia-Related Issues: No Anes. Related Issues
[2023-12-29] MEDS: Potassium Chloride ER 20 MEQ TAB.ER.PRT PO (12:32)
--- NOTE | 2023-12-29 12:36 | MHC.RECOVRN ---
Met with pt to follow up after receiving recovery resources yesterday. Pt and fiance in room, both report not having looked them over yet. Pt denies questions or concerns at this time.
--- NOTE | 2023-12-29 14:03 | MHC.CM.PN ---
CM met with pt and his to discuss home care services, PT rec. home PT. Pt said that he does not need it because he has home health services which includes a nurse and PT from [place] [facility]. His agreed that this is enough for him, no referrals placed.
[2023-12-29] MEDS: Propranolol HCL 10 MG TABLET PO ×2 (15:49→20:50)
[2023-12-29] MEDS: Omeprazole 20 MG CAPSULE.DR PO (17:05)
[2023-12-29] MEDS: Sucralfate 1 GM TABLET PO (17:05)
[2023-12-29] MEDS: Mirtazapine 15 MG TABLET PO (20:50)
[2023-12-29] MEDS: Tamsulosin HCL 0.4 MG CAPSULE PO (20:50)
[2023-12-29] MEDS: PHENobarbitaL 30 MG TABLET PO (20:50)
[2023-12-29] MEDS: risperiDONE 2 MG TABLET PO (20:50)
[2023-12-30] MEDS: 0.9 % Sodium Chloride Flush 3 ML SYRINGE IVFLUSH ×2 (00:09→09:21)
[2023-12-30 03:20] VITALS: BP 105/61; PULSE 65; RESP 16; TEMP 36.9; O2SAT 97
[2023-12-30] MEDS: cefTRIAXone sodium 1 GM in 0.9 % Sodium Chloride 50 ML IV (03:43)
[2023-12-30] MEDS: Omeprazole 20 MG CAPSULE.DR PO (06:07)
[2023-12-30 07:36] LABS: MANUAL DIFF FLAG NO
[2023-12-30 07:43] VITALS: BP 97/60; PULSE 76; RESP 18; TEMP 36.7; O2SAT 98
[2023-12-30 07:43] LABS: Basophils Absolute Auto 0.1 X10*3/uL (0.0-0.2); Basophils Percent Auto 0.6 % (0-2); Eosinophils Absolute Auto 0.4 X10*3/uL (0.0-0.4); Eosinophils Percent Auto 5.2 % (0-4); Hematocrit 26.5 % (42.0-52.0); Hemoglobin 8.6 g/dl (14.0-18.0); Imm Gran Abs Auto 0.08 X10*3/uL (0.00-0.03); Imm Gran Pct Auto 0.9 % (0.0-0.4); Lymphocytes Absolute Auto 1.3 X10*3/uL (1.2-4.9); Lymphocytes Percent Auto 15.1 % (20-40); Mean Corpuscular HGB Conc 32.5 g/dl (31.0-36.0); Mean Corpuscular Hemoglobin 28.4 pg (27.0-33.0); Mean Corpuscular Volume 87.5 fL (80.0-98.0); Mean Platelet Volume 10.7 fL (9.4-12.4); Monocytes Percent Auto 11.2 % (2-11); Neutrophils Absolute Auto 5.7 x10*3/uL (2.0-8.3); Platelet Count 111 X10*3/uL (160-400); Red Blood Count 3.03 X10*6/uL (4.60-5.80); Red Cell Distribution Width 19.7 % (11.0-16.0); White Blood Count 8.5 X10*3/uL (4.8-10.8)
[2023-12-30 07:59] LABS: Anion Gap 11 (12-20); Blood Urea Nitrogen 11 mg/dL (9-16); Carbon Dioxide 24 mmol/L (22-29); Chloride 97 mmol/L (96-108); Estimated Glomerular Filt Rate > 60; Glucose Random 97 mg/dL (60-115); Magnesium 2.1 mg/dL (1.6-2.6); Potassium 3.4 mmol/L (3.3-5.1); Sodium 129 mmol/L (135-145)
[2023-12-30] MEDS: FLUoxetine HCl 20 MG CAPSULE 60 MG PO (09:20)
[2023-12-30] MEDS: Topiramate 100 MG TABLET 200 MG PO (09:20)
[2023-12-30] MEDS: Sucralfate 1 GM TABLET PO (09:20)
[2023-12-30] MEDS: QUEtiapine Fumarate 50 MG TABLET PO (09:20)
[2023-12-30] MEDS: Spironolactone 25 MG TABLET 100 MG PO (09:20)
[2023-12-30] MEDS: Furosemide 40 MG TABLET PO (09:21)
[2023-12-30] MEDS: PHENobarbitaL 30 MG TABLET PO (09:21)
[2023-12-30] MEDS: Propranolol HCL 10 MG TABLET PO (09:21)
--- NOTE | 2023-12-30 10:09 | P.DS_ITS ---
DS: Providers Provider Date of Service: 12/30/23 Date of admission: 12/27/23 02:22 Date of discharge: 12/30/23 Primary care physician: Fransisco Soria MD Consults: 12/27/23 02:23 Addiction Medicine Routine Consulting Provider: Sudhakar Ziegler Reason for consultation: alcohol use disorder 12/27/23 06:35 Consult to Gastroenterology Stat Consulting Provider: Lee White Reason for consultation: upper gi bleed DS: Diagnosis Discharge Diagnosis (1) Acute GI bleeding: Status: Acute (2) Erosive esophagitis: Status: Acute (3) Portal hypertensive gastropathy: Status: Acute (4) Esophageal varices: Status: Acute (5) Hyponatremia: Status: Acute (6) Alcoholic cirrhosis of liver with ascites: Status: Acute (7) Alcohol dependence: Status: Acute (8) Acute on chronic blood loss anemia: Status: Resolved (9) Hypokalemia: Status: Acute (10) Alcoholic cirrhosis: Status: Acute (11) Acute lactic acidosis: Status: Acute DS: Summary Hospital Course Hospital Course: From the history and physical by the admitting hospitalist, Bhumika Cummins MD, 12/27/23: This is a 58-year-old male with pertinent history of alcohol use disorder with alcoholic liver cirrhosis, mood disorder, gastroesophageal reflux disease who presents to the emergency department for evaluation of blood in vomitus. Patient states it has been ongoing for the last 3 days. He had 1 episode of blood in vomit about a week ago and then it stopped. It restarted again about 3 days prior to presentation and he has had multiple episodes over the last 3 days. Patient continues to drink alcohol and his last alcoholic drink was prior to presentation. Does have a history of alcohol withdrawal. No history of alcohol withdrawal seizures. He denies fever, chills, abdominal discomfort or blood in stools. Admits generalized weakness and fatigability. No chest discomfort, palpitations, shortness of breath, changes in urinary habits. In the emergency department, hemoglobin was found to be low. He was also found to have low-sodium, elevated lactic acid and elevated white blood cell count. Imaging without any evidence of active GI bleeding. 58yo M with AUD, alcoholic cirrhosis, GERD, mood disorder presenting after hematochezia, found to have profound anemia + lactic acidosis. Briefly in ICU 3/13/24 for closer monitoring but did not develop hypotension. Hospital course by problem: acute/chronic blood loss anemia due to acute UGIB from erosive esophagitis; non- bleeding esophageal varices and portal hypertensive gastropathy - Transferred to the telemetry unit and given IV octreotide and IV pantoprazole, along with IV ceftriaxone for SBP prophylaxis. Transfused a total of 6 units of packed red blood cells with increase in hemoglobin from 3.7 to 9. Gastroenterol ogy was consulted. EGD 12/28/[address] White: Esophagus: GE junction at 37 cm, diaphragm hiatus at 40 cm, consistent with 2 cm sliding hiatal hernia. non obstructing schatzki ring noted. 2 columns of grade I varices noted which collpased with air. Erosive esophagitis noted with slough in the distal esophagus. A rim of erythema noted just below the schatzki ring, non bleeding Stomach: Mosaic pattern consistent with portal hypertensive gastropathy Grade 2 flap valve on retroflexed examination of the cardia. No gastric varices see or active bleeding. Duodenum: small non bleeding AVM noted in the bulb, congestive duodenopathy noted. - His PO PPI was increased to bid and he was also started on sucralfate. Propranolol for variceal hemorrhage prophylaxis was resumed. 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 His diet was advanced without issues. hyponatremia - Likely due to cirrhosis. Placed on fluid restriction to 1500 mL/day. Should repeat BMP in 1 week. hypokalemia - Repleted. lactic acidosis - Due to blood loss + cirrhosis, not sepsis. EtOH cirrhosis with ascites - Resumed furosemide and spironolactone and instructed to restrict sodium to 2000 mg/d. Should follow up with his own butane compressor operator to schedule outpatient therapeutic paracentesis. EtOH hepatitis - Mild with MDF 24; no steroids indicated. Alcohol use disorder - Withdrawal averted by giving phenobarbital taper. Met with Addiction Medicine and provided with resources for sobriety maintenance. Counseled on utter importance of sobriety given decompensated cirrhosis. He was discharged home with resumption of VNA services. Time Attestation Discharge Coordination Time (in mins): 45 Quality: Safe Use of Opioids Does Pt have an Active Cancer Diagnosis on the Problem List?: No Quality: Stroke Does the patient have a stroke diagnosis?: No Physical Exam Vital Signs: Vital Signs: Last Vital Signs Temp 98.1 F 12/30/23 07:43 Pulse 76 12/30/23 07:43 Resp 18 12/30/23 07:43 BP 97/60 12/30/23 07:43 Pulse Ox 98 12/30/23 07:43 O2 Del Method Room Air 12/30/23 07:43 O2 Flow Rate 6 12/28/23 14:30 BMI result Body Mass Index 32.7 Gen: in no acute distress HEENT: sclera icteric, moist mucus membranes Neck: supple Lungs: clear to auscultation bilaterally Heart: regular rate and rhythm, no murmurs Abd: soft, non-tense ascites present Ext: no edema Skin: warm/well-perfused Neuro: alert and oriented x3, no asterixis Psych: appropriate affect DS: Data Data Completed and Pending Completed studies during hospitalization [Text1]: Laboratory Results WBC 8.5 X10*3/uL (4.8-10.8) 12/30/23 07:10 RBC 3.03 X10*6/uL (4.60-5.80) L 12/30/23 07:10 Hgb 8.6 g/dl (14.0-18.0) L 12/30/23 07:10 Hct 26.5 % (42.0-52.0) L 12/30/23 07:10 MCV 87.5 fL (80.0-98.0) 12/30/23 07:10 MCH 28.4 pg (27.0-33.0) 12/30/23 07:10 MCHC 32.5 g/dl (31.0-36.0) 12/30/23 07:10 RDW 19.7 % (11.0-16.0) H 12/30/23 07:10 Plt Count 111 X10*3/uL (160-400) L 12/30/23 07:10 MPV 10.7 fL (9.4-12.4) 12/30/23 07:10 Immature Gran % (Auto) 0.9 % (0.0-0.4) H 12/30/23 07:10 Neut % (Auto) 67.0 % (45-73) 12/30/23 07:10 Lymph % (Auto) 15.1 % (20-40) L 12/30/23 07:10 Hayes % (Auto) 11.2 % (2-11) H 12/30/23 07:10 Eos % (Auto) 5.2 % (0-4) H 12/30/23 07:10 Baso % (Auto) 0.6 % (0-2) 12/30/23 07:10 Lymph # (Auto) 1.3 X10*3/uL (1.2-4.9) 12/30/23 07:10 Hayes # (Auto) 1.0 X10*3/uL (0.1-1.2) 12/30/23 07:10 Eos # (Auto) 0.4 X10*3/uL (0.0-0.4) 12/30/23 07:10 Baso # (Auto) 0.1 X10*3/uL (0.0-0.2) 12/30/23 07:10 Abs Immat Gran (auto) 0.08 X10*3/uL (0.00-0.03) H 12/30/23 07:10 Absolute Neuts (auto) 5.7 x10*3/uL (2.0-8.3) 12/30/23 07:10 Absolute Nucleated RBC 0.000 X10*3/uL (0.0-0.012) 12/30/23 07:10 Nucleated RBC % (auto) 0.0 /100WBC (0.0-0.2) 12/30/23 07:10 Smear Path Review SEE NOTE 12/27/23 00:25 PT 15.7 SEC (11.1-13.3) H 12/28/23 07:18 INR 1.3 (0.9-1.1) H 12/28/23 07:18 APTT 31.9 SEC (26.0-36.8) 12/27/23 00:25 Fibrinogen 276 MG/DL (259-690) 12/28/23 07:18 Hold Blue Top SEE NOTE 12/27/23 00:25 VBG pH 7.57 (7.32-7.43) H 12/27/23 05:15 VBG pCO2 23 mmHg 12/27/23 05:15 VBG pO2 60 mmHg 12/27/23 05:15 VBG HCO3 21 mmol/L (22-26) L 12/27/23 05:15 VBG O2 Saturation Not Reportable 12/27/23 05:15 VBG Base Excess 0.1 mmol/L 12/27/23 05:15 Sodium 129 mmol/L (135-145) L 12/30/23 07:10 Potassium 3.4 mmol/L (3.3-5.1) 12/30/23 07:10 Chloride 97 mmol/L (96-108) 12/30/23 07:10 Carbon Dioxide 24 mmol/L (22-29) 12/30/23 07:10 Anion Gap 11 (12-20) L 12/30/23 07:10 BUN 11 mg/dL (9-16) 12/30/23 07:10 Creatinine 0.94 mg/dL (0.5-1.4) 12/30/23 07:10 Estim Creat Clear Calc 97.0 12/30/23 07:10 Estimated GFR > 60 12/30/23 07:10 Random Glucose 97 mg/dL (60-115) 12/30/23 07:10 Lactic Acid 1.7 mmol/L (0.5-2.0) 12/28/23 07:18 Lactic Acid F/U @ 2Hr 3.4 mmol/L (0.5-2.0) H* 12/27/23 17:22 Lactic Acid F/U @ 4Hr 3.0 mmol/L (0.5-2.0) H* 12/27/23 19:37 Calcium 7.0 mg/dL (8.4-10.2) L 12/30/23 07:10 Magnesium 2.1 mg/dL (1.6-2.6) 12/30/23 07:10 Total Bilirubin 3.6 mg/dL (0.0-1.0) H 12/29/23 09:31 Direct Bilirubin 2.4 mg/dL (0.0-0.5) H 12/29/23 09:31 AST 64 U/L (5-37) H 12/29/23 09:31 ALT 14 U/L (0-40) 12/29/23 09:31 Alkaline Phosphatase 239 U/L (39-117) H 12/29/23 09:31 Troponin I High Sens < 2.7 ng/L (<3.5-35.0) 12/27/23 00:25 B-Natriuretic Peptide 48 pg/mL (<100) 12/27/23 00:25 Total Protein 5.8 g/dL (6.5-8.0) L 12/29/23 09:31 Albumin 1.9 g/dL (3.5-5.0) L 12/29/23 09:31 Lipase 61 U/L (8-78) 12/27/23 00:25 Stool Occult Blood POSITIVE (NEGATIVE) 12/27/23 03:42 Ethyl Alcohol 78 mg/dL 12/27/23 00:25 Blood Type A Positive 12/27/23 00:25 Antibody Screen NEGATIVE 12/27/23 00:25 Crossmatch See Detail 12/27/23 00:25 Impressions Abdomen/Pelvis CT 12/27/23 01:10 IMPRESSION: 1. No evidence of active GI bleeding. 2. Cirrhosis of the liver with evidence of portal hypertension. 3. Cholelithiasis. 4. Small volume ascites. 5. Mild rectal thickening possibly a mild proctitis. Discharge Plan Discharge Anticipated Discharge Date/Time: 12/30/23 10:02 Patient Disposition: Home Health Service Discharge Diagnosis: Upper GI bleed due to erosive esophagitis Severe anemia Alcoholic cirrhosis of the liver Alcohol use disorder Hyponatremia Referrals: Jl Apple MD [Physician] - 1 Week Fransisco Soria MD [Primary Care Provider] - 1 Week Discharge Medications: New sucralfate 1 gram Tablet 1 g PO BIDAC Qty: 60 0RF pantoprazole 40 mg tablet,delayed release (DR/EC) 40 mg PO BID Qty: 60 0RF ferrous sulfate 325 mg (65 mg iron) tablet 325 mg PO DAILY Qty: 30 0RF Continued propranolol 10 mg tablet 1 tab PO TID topiramate [Topamax] 200 mg tablet 1 tab PO BID lactulose [Constulose] 10 gram/15 mL solution 30 ml PO TID PRN (Reason: Constipation) tamsulosin 0.4 mg capsule 0.4 mg PO BEDTIME furosemide 40 mg tablet 1 tab PO DAILY spironolactone 100 mg tablet 1 tab PO DAILY fluoxetine [Prozac] 20 mg capsule 60 mg PO DAILY quetiapine [Seroquel] 25 mg tablet 12.5 mg PO BID PRN (Reason: anxiety) hydroxyzine HCl 25 mg tablet 25 - 50 mg PO BID PRN (Reason: anxiety) mirtazapine 15 mg tablet 15 mg PO BEDTIME ondansetron 4 mg tablet,disintegrating 4 mg PO Q8H PRN (Reason: Nausea) melatonin 10 mg tablet 10 mg PO BEDTIME PRN (Reason: Insomnia) risperidone 2 mg Tablet 2 mg PO BEDTIME quetiapine [Seroquel] 50 mg Tablet 50 mg PO BID Discontinued pantoprazole 40 mg tablet,delayed release (DR/EC) 1 tab PO DAILY Discharge Orders: Discharge Order (Routine); Ordered 12/30/23 Ordered By: Nathalie Marshall Diet: Low salt diet Activity on Discharge: As tolerated Stand Alone Forms: Patient Portal Discharge page Other Ambulatory Orders: Basic Metabolic Panel (Routine) Timeframe: 1 Week Facility: [facility] - Location: Laboratory Ordered By: Nathalie Marshall Care Plan Goals: Liver health sobriety Health Concerns: Upper GI bleed due to erosive esophagitis Severe anemia Alcoholic cirrhosis of the liver Alcohol use disorder Hyponatremia Plan of Treatment: Follow up with your butane compressor operator, Dr Apple, for repeat EGD as outpatient in 4 weeks Take pantoprazole TWICE daily and sucralfate twice daily Take iron as prescribed Continue propranolol Continue furosemide and spironolactone Limit sodium to 1500 mg daily; limit fluid intake to 1500 mL daily Repeat BMP in 1 week Avoid alcohol completely Please follow up with your primary care doctor within 1 week. Return to the hospital if you experience recurrent or worsening symptoms. Assessment: See Discharge Summary.
--- NOTE | 2023-12-31 18:55 | P.CDIM_ITS ---
PROVIDER RESPONSE TEXT: To clarify, the appropriate diagnosis supported by the clinical indicators: Acute QUERY TEXT: PHYSICIAN'S DOCUMENTATION REQUEST Date of Query: 12/29/2023 02:03 PM EDT Patient Name: Leandro Rico Admit Date: 12/27/2023 Dear Nathalie Marshall, A review of the medical record indicates additional documentation may be needed. Please review below and update the documentation accordingly. Clinical Indicators: Per Hospitalist Progress Note 12/29/23: lactic acidosis - due to blood loss + cirrhosis Clarify which of the following accurately represents the acuity of the Lactic Acidosis. Possible options might include: Acute Acute on chronic Compensated Chronic stable condition Remission Other (explain) Clinically unable to determine (explain) Thank you, Grace White RN Use of terms such as suspected, likely, concern for, or probable (associated with a specific diagnosi s that is being evaluated, monitored, or treated as if it exists) are acceptable and can be coded in the inpatient se tting, when documented at the time of discharge. Please use your independent medical judgment in providing your response. THIS QUERY IS PART OF THE PERMANENT MEDICAL RECORD
== END 2023-12-30 11:56 | disposition home or self-care (01) | DRG 380 ==
LOC: HO.ED 03:00 → HO.EDOVER 03:03 → HO.ICU 10:11 → HO.IMC 17:42
PROVIDERS: Internal Medicine Critical Care Medicine; Internal Medicine Gastroenterology; Admitting Provider Student in an Organized Health Care Education/Training Program; Emergency Provider Emergency Medicine; PCP Internal Medicine; Visit Provider Family Medicine
PROC: 0DJ08ZZ Inspection of Upper Intestinal Tract, Via Natural or Artificial Opening Endoscopic (ICD-10-PCS; CPT 43235; principal; 2023-12-28 15:40)
DX: K22.11 Ulcer of esophagus with bleeding (principal); I85.11 Secondary esophageal varices with bleeding; D62 Acute posthemorrhagic anemia; E87.21 Acute metabolic acidosis; E87.1 Hypo-osmolality and hyponatremia; K76.6 Portal hypertension; K70.31 Alcoholic cirrhosis of liver with ascites; K31.811 Angiodysplasia of stomach and duodenum with bleeding; K70.11 Alcoholic hepatitis with ascites; F10.20 Alcohol dependence, uncomplicated; F39 Unspecified mood [affective] disorder; Y90.3 Blood alcohol level of 60-79 mg/100 ml; K22.2 Esophageal obstruction; K44.9 Diaphragmatic hernia without obstruction or gangrene; E87.6 Hypokalemia; F17.210 Nicotine dependence, cigarettes, uncomplicated; Z71.6 Tobacco abuse counseling; K31.89 Other diseases of stomach and duodenum; Z79.899 Other long term (current) drug therapy
CPT/HCPCS: 36415; 74178; 80048; 80053; 80076; 80307; 82272; 82803; 83605; 83690; 83735; 83880; 84484; 85014; 85018; 85025; 85384; 85610; 85730; 86850; 86900; 86901; 86923; 92950; 93005; 97162; 99285; C9113; J0613; J0696; J2250; J2354; J2405; J2560; J2704; J3411; J3475; J7120; P9016; Q9967

== ENCOUNTER → 2023-12-27 00:19 | Outpatient (BNV) | payer MEDICARE, SELFPAY | PROVIDERS: Admitting Provider Student in an Organized Health Care Education/Training Program; Emergency Provider Emergency Medicine; PCP Internal Medicine; Visit Provider Internal Medicine Cardiovascular Disease | DX: I45.81 Long QT syndrome (principal); R11.10 Vomiting, unspecified | CPT/HCPCS: 93010 ==

== ENCOUNTER → 2023-12-27 01:05 | Outpatient (BNV) | payer MEDICARE, SELFPAY | PROVIDERS: Emergency Provider Emergency Medicine; PCP Internal Medicine; Visit Provider Student in an Organized Health Care Education/Training Program | DX: K92.2 Gastrointestinal hemorrhage, unspecified (principal); K22.10 Ulcer of esophagus without bleeding; K76.6 Portal hypertension; K31.89 Other diseases of stomach and duodenum; I85.00 Esophageal varices without bleeding; E87.1 Hypo-osmolality and hyponatremia; K70.31 Alcoholic cirrhosis of liver with ascites; F10.20 Alcohol dependence, uncomplicated; D62 Acute posthemorrhagic anemia; E87.6 Hypokalemia; K70.30 Alcoholic cirrhosis of liver without ascites; E87.21 Acute metabolic acidosis | CPT/HCPCS: 99223; 99232; 99239; 99499 ==

== ENCOUNTER → 2023-12-27 02:22 | Outpatient (BNV) | payer MEDICARE, SELFPAY | PROVIDERS: Admitting Provider Student in an Organized Health Care Education/Training Program; Emergency Provider Emergency Medicine; PCP Internal Medicine; Visit Provider Internal Medicine Gastroenterology | DX: K92.2 Gastrointestinal hemorrhage, unspecified (principal); K70.31 Alcoholic cirrhosis of liver with ascites; D64.9 Anemia, unspecified; I85.00 Esophageal varices without bleeding; K20.90 Esophagitis, unspecified without bleeding; K22.2 Esophageal obstruction | CPT/HCPCS: 43235; 99223; 99233 ==

== ENCOUNTER 2024-02-23 13:27 | Inpatient (IN) | payer MEDICARE, SELFPAY ==
[2024-02-23] VITALS (32 sets, daily range): BP systolic 91–125; BP diastolic 35–72; PULSE 67–115; RESP 12–22; TEMP 36.2–36.8; O2SAT 97–100; BMI 36.4; BMI 36.3
--- NOTE | ~2024-02-23 | XR_ITS ---
EXAMINATION: XR CHEST CLINICAL INFORMATION: Abdominal pain COMPARISON: Chest x-ray February 06, 2022 TECHNIQUE: Frontal portable view of the chest was obtained. 1320 hours FINDINGS: No significant abnormality is noted involving the heart, lungs, mediastinum, bony thorax or soft tissues. XR/XR chest 1V IMPRESSION: Unremarkable examination.
--- NOTE | ~2024-02-23 | XR_ITS ---
EXAMINATION: XR CHEST CLINICAL INFORMATION: Hypoxia. COMPARISON: Prior chest radiographs, most recently 02/23/2024. TECHNIQUE: Frontal view of the chest was obtained. FINDINGS: The heart, great vessels, pulmonary vasculature and mediastinum are stable. There is interim appearance of numerous patchy infiltrates within the lungs, with airspace disease most pronounced at the right base. No pleural effusion or pneumothorax is seen. There is no acute osseous abnormality. XR/XR chest 1V IMPRESSION: There are multi-focal pulmonary infiltrates, new from 02/23/2024. The finding is consistent with acute pneumonia. Recommend radiographic follow-up to ensure full clearance. A preliminary report was provided by the [facility] on 02/28/2024.
--- NOTE | 2024-02-23 13:41 | ECG_ITS ---
Test Reason : tachy Blood Pressure : / mmHG Vent. Rate : 100 BPM Atrial Rate : 100 BPM P-R Int : 152 ms QRS Dur : 100 ms QT Int : 432 ms P-R-T Axes : 054 -11 036 degrees QTc Int : 557 ms Normal sinus rhythm Inferior infarct , age undetermined Abnormal ECG When compared with ECG of 27-DEC-2023 00:33, Nonspecific T wave abnormality, worse in Lateral leads Referred By: Dixon House Electronically Signed By:Julio Muro
--- NOTE | 2024-02-23 13:41 | ED.GENADULT ---
HPI - General Adult General Chief complaint: General Medical Stated complaint: N/V, CIRRHOSIS Time Seen by Provider: 02/23/24 13:30 Source: patient Mode of arrival: EMS Limitations: no limitations History of Present Illness HPI narrative: 58 years old with past medical history of alcohol-induced cirrhosis, recent admission in December for GI bleed with possible gastric source from gastropathy, grade 1 varices, GERD, mood disorder, alcohol use disorder, presents emergency room for multiple episodes of dark stools that are ongoing for the past 4 weeks associated over the past 3 days with coffee-ground vomit. Patient reports that the presentation is very similar to the 1 he had in December where he was admitted for upper GI bleed with reduced hemoglobin. Patient denies abdominal pain, reports that he was seen is java swing developer few weeks ago. No chills or fever, according to EMS patient seemed slightly confused but he knows where he is he knows the date and situation. Patient reports multiple episodes of dark stools and dark vomit over the past 48 hours. No hematochezia or hematemesis bright red No chest pain or shortness of breath. On arrival patient is tachycardic with systolic blood pressure 110, heart rate 110 Does not appear in discomfort, pale Related Data Home Medications ?Medication ?Instructions ?Recorded ?Confirmed lactulose 10 gram/15 mL oral 30 ml PO TID PRN Constipation 11/11/21 12/27/23 solution (Constulose) propranolol 10 mg tablet 1 tab PO TID 11/11/21 12/27/23 topiramate 200 mg tablet (Topamax) 1 tab PO BID 11/11/21 12/27/23 fluoxetine 20 mg capsule (Prozac) 60 mg PO DAILY 02/06/22 12/27/23 furosemide 40 mg tablet 1 tab PO DAILY 10/17/22 12/27/23 spironolactone 100 mg tablet 1 tab PO DAILY 10/17/22 12/27/23 tamsulosin 0.4 mg capsule 0.4 mg PO BEDTIME 10/17/22 12/27/23 hydroxyzine HCl 25 mg tablet 25 - 50 mg PO BID PRN anxiety 11/13/23 12/27/23 melatonin 10 mg tablet 10 mg PO BEDTIME PRN Insomnia 11/13/23 12/27/23 mirtazapine 15 mg tablet 15 mg PO BEDTIME 11/13/23 12/27/23 ondansetron 4 mg disintegrating 4 mg PO Q8H PRN Nausea 11/13/23 12/27/23 tablet quetiapine 25 mg tablet (Seroquel) 12.5 mg PO BID PRN anxiety 11/13/23 12/27/23 quetiapine 50 mg tablet (Seroquel) 50 mg PO BID 12/27/23 12/27/23 risperidone 2 mg tablet 2 mg PO BEDTIME 12/27/23 12/27/23 Previous Rx's ?Medication ?Instructions ?Recorded ferrous sulfate 325 mg (65 mg 325 mg PO DAILY #30 tabs 12/30/23 iron) tablet pantoprazole 40 mg tablet,delayed 40 mg PO BID #60 tabs 12/30/23 release sucralfate 1 gram tablet 1 g PO BIDAC #60 tabs 12/30/23 Allergies Allergy/AdvReac Type Severity Reaction Status Date / Time Fish Containing Products Allergy Severe THROAT Verified 02/23/24 13:34 SWELLING peanut [Peanut] Allergy Severe THROAT Verified 02/23/24 13:34 SWELLING Review of Systems Review of Systems: Yes all other systems are reviewed and are negative [facility] Past Medical History Medical History (Updated 02/23/24 @ 15:06 by Dixon House MD) Acute hyponatremia Hyponatremia NATHANIEL (acute kidney injury) Acute metabolic encephalopathy [place] Alcoholic cirrhosis of liver with ascites Prostate cancer Depression Hyperlipidemia Hypertension Anxiety Social History Social History Household Members: Spouse Household Members Other:: fiancee Housing: Condominium Do you presently have visiting nurse or other home services: Yes ([employer]) Alcohol intake: former Patient Tobacco Use Status: Current someday Tobacco user Tobacco use type: Cigarette Substance Use Type: Marijuana Advance Directives: No Advance Directives Information Provided: No Advance Directives Date on File: 11/11/21 service: No Current occupational status: disabled Physical Exam ED Vital Signs: Vital Signs - 24 hr 02/23/24 13:33 02/23/24 14:43 Temperature 97.6 F 97.6 F Pulse Rate 109 H 106 H Respiratory Rate 18 18 Blood Pressure 111/54 L 105/42 L Pulse Oximetry 100 Oxygen Delivery Method Room Air BMI result Body Mass Index 36.3 General: Alert, Not in Distress Skin: pale, with trace of dark/ coffee ground vomit. HEENT: Atraumatic, No Exudate or Pharyngeal Erythema Resp: Normal Breath sounds bilaterally Cardio: Regular rate and Rhythm, Normal S1, S2 ABD: Abd distended with pitting edema, soft, non tender, no guarding or rebound. Reduced Bowel sounds.Rectal: normal tone, melena. : No cva tenderness Neuro: Alert, oriented x4, PERRL Strenght 5/5 on all extremities Sensation is preserved in both lower and upper extremities Index to nose: normal Cranial Nerves II-XII grossly intact No dysarthria, or aphasia No neglet. Visual calvert are normal bilaterally Psych: Cooperative, NO SI Course Reevaluation(s) Reevaluation #1: Patient's blood work showed hemoglobin of 3.8 for which we will order 3 units of blood, patient will likely require a 4th 1 but in consideration of his fluid status that already showed 3rd spacing will transfuse slowly even in consideration of the fact that patient appears to be hemodynamically stable at this time. Patient's white blood cells 31.5, however he does not have abdominal pain and I have low suspicion for SBP, he is going to receive ceftriaxone 1 g regardless for variceal bleeding. Time: 14:10 Reevaluation #2: Discussed case with java swing developer Dr. Brito: Recommendation is to associated the patient and plan to EGD tomorrow, Dr. Brito also available in case patient's condition deteriorates, based on the last EKG she thinks likely is subacute bleed this is consistent with patient's history of today's presentation. Discussed the case with hospitalist however given hemoglobin level, lactic acidosis, at this time patient is not appropriate for floor or IMC. Discussed case with stewarding supervisor Dr. Massey of who will review case at bedside and admit the patient. Patient is currently getting 1st unit of blood, no episodes of shortness of breath, blood pressure 105/50, heart rate between 101 10. Will admit to hospital ICU. Time: 15:01 Medications Administered Generic Name Dose Route Start Last Admin Trade Name Freq PRN Reason Stop Dose Admin Potassium Chloride 10 meq in 100 mls @ 100 mls/hr 02/23/24 14:45 02/23/24 15:23 Potassium Chloride/H20 IV 02/23/24 18:44 100 mls/hr Q1H KULWANT Administration Discontinued Medications Generic Name Dose Route Start Last Admin Trade Name Taz PRN Reason Stop Dose Admin Ceftriaxone Sodium 1 gm/ 50 mls @ 100 mls/hr 02/23/24 13:41 02/23/24 14:52 Sodium Chloride IV 02/23/24 14:10 Infused ONCE ONE Infusion Sodium Chloride 100 mls @ 100 mls/hr 02/23/24 14:06 02/23/24 14:52 Ns IV 02/23/24 15:05 100 mls/hr ONCE ONE Administration Octreotide Acetate 100 mcg 02/23/24 14:13 02/23/24 15:14 Octreotide Acetate 100 Mcg/Ml Ampul IVPUSH 02/23/24 14:14 100 mcg ONCE ONE Administration Pantoprazole Sodium 80 mg 02/23/24 13:41 02/23/24 13:58 Pantoprazole Sodium 40 Mg/10 Ml Vial IVPUSH 02/23/24 13:42 80 mg ONCE ONE Administration Medical Decision Making Medical Decision Making MDM Narrative: Patient presented to the emergency room for what it looks like upper GI bleed including coffee-ground vomit and melena. Patient is tachycardic with still stable blood pressure. Very similar to recent presentation for upper GI bleed at the time EGD did not show a clear source of bleeding. Patient is a cirrhotic patient with history of varices therefore possible differential diagnosis includes PUD versus variceal bleeding. Plan CBC, BMP, type and screen, LFTs, lipase Type and screen 500 mL of IV fluids Transfusion as needed Ceftriaxone to cover for of varices bleeding Pantoprazole 80 mg IV Octreotide Reviewed recent EGD done in December Impression/Findings: schatzki ring hiatal hernia erosive esophagitis esophageal varices portal hypertensive gastropathy and duodenopathy Consult Healthcare Provider Management of the patient was discussed with: Hospitalist and Shrimp Cleaner (GI consulted see clinical course for detailsIntensivist consulted see clinical course for detailed) Lab Data MDM Lab Attestation statement: I reviewed the patient's lab results. 02/23/24 13:50 02/23/24 13:50 Labs: Lab Results 02/23/24 02/23/24 02/23/24 Range/Units 13:49 13:50 13:51 WBC 31.5 H* (4.8-10.8) X10*3/uL RBC 1.36 L D (4.60-5.80) X10*6/uL Hgb 3.8 L* D (14.0-18.0) g/dl Hct 12.7 L* D (42.0-52.0) % MCV 93.4 (80.0-98.0) fL MCH 27.9 (27.0-33.0) pg MCHC 29.9 L (31.0-36.0) g/dl RDW 17.0 H (11.0-16.0) % Plt Count 313 D (160-400) X10*3/uL MPV 9.8 (9.4-12.4) fL Immature Gran % (Auto) 2.1 H (0.0-0.4) % Neut % (Auto) 78.8 H (45-73) % Lymph % (Auto) 9.3 L (20-40) % [place] % (Auto) 9.6 (2-11) % Eos % (Auto) 0.0 (0-4) % Baso % (Auto) 0.2 (0-2) % Lymph # (Auto) 2.9 (1.2-4.9) X10*3/uL [place] # (Auto) 3.0 H (0.1-1.2) X10*3/uL Eos # (Auto) 0.0 (0.0-0.4) X10*3/uL Baso # (Auto) 0.1 (0.0-0.2) X10*3/uL Abs Immat Gran (auto) 0.67 H (0.00-0.03) X10*3/uL Absolute Neuts (auto) 24.8 H (2.0-8.3) x10*3/uL Absolute Nucleated RBC 0.020 H (0.0-0.012) X10*3/uL Nucleated RBC % (auto) 0.1 (0.0-0.2) /100WBC Smear Tech's Comments VERIFIED PT 22.2 H D (11.1-13.3) SEC INR 1.8 H (0.9-1.1) VBG pH (7.32-7.43) VBG pCO2 mmHg VBG pO2 mmHg VBG HCO3 (22-26) mmol/L VBG O2 Saturation VBG Base Excess mmol/L Sodium 135 (135-145) mmol/L Potassium 2.9 L* (3.3-5.1) mmol/L Chloride 101 (96-108) mmol/L Carbon Dioxide 14 L (22-29) mmol/L Anion Gap 23 H (12-20) BUN 11 (9-16) mg/dL Creatinine 1.47 H (0.5-1.4) mg/dL Estim Creat Clear Calc 61.2 Estimated GFR 49 Random Glucose 133 H (60-115) mg/dL Lactic Acid 14.1 H* (0.5-2.0) mmol/L Calcium 7.0 L (8.4-10.2) mg/dL Phosphorus 3.6 (2.7-4.5) mg/dL Magnesium 1.7 (1.6-2.6) mg/dL Total Bilirubin 1.9 H (0.0-1.0) mg/dL AST 17 (5-37) U/L ALT 6 (0-40) U/L Alkaline Phosphatase 142 H (39-117) U/L Ammonia 81 H (13-55) umol/L Total Protein 4.8 L (6.5-8.0) g/dL Albumin 1.4 L (3.5-5.0) g/dL Lipase 16 (8-78) U/L Blood Type A Positive Antibody Screen NEGATIVE Crossmatch See Detail 02/23/24 Range/Units 13:54 WBC (4.8-10.8) X10*3/uL RBC (4.60-5.80) X10*6/uL Hgb (14.0-18.0) g/dl Hct (42.0-52.0) % MCV (80.0-98.0) fL MCH (27.0-33.0) pg MCHC (31.0-36.0) g/dl RDW (11.0-16.0) % Plt Count (160-400) X10*3/uL MPV (9.4-12.4) fL Immature Gran % (Auto) (0.0-0.4) % Neut % (Auto) (45-73) % Lymph % (Auto) (20-40) % [place] % (Auto) (2-11) % Eos % (Auto) (0-4) % Baso % (Auto) (0-2) % Lymph # (Auto) (1.2-4.9) X10*3/uL [place] # (Auto) (0.1-1.2) X10*3/uL Eos # (Auto) (0.0-0.4) X10*3/uL Baso # (Auto) (0.0-0.2) X10*3/uL Abs Immat Gran (auto) (0.00-0.03) X10*3/uL Absolute Neuts (auto) (2.0-8.3) x10*3/uL Absolute Nucleated RBC (0.0-0.012) X10*3/uL Nucleated RBC % (auto) (0.0-0.2) /100WBC Smear Tech's Comments PT (11.1-13.3) SEC INR (0.9-1.1) VBG pH 7.41 (7.32-7.43) VBG pCO2 21 mmHg VBG pO2 69 mmHg VBG HCO3 13 L (22-26) mmol/L VBG O2 Saturation TNP VBG Base Excess -10.0 mmol/L Sodium (135-145) mmol/L Potassium (3.3-5.1) mmol/L Chloride (96-108) mmol/L Carbon Dioxide (22-29) mmol/L Anion Gap (12-20) BUN (9-16) mg/dL Creatinine (0.5-1.4) mg/dL Estim Creat Clear Calc Estimated GFR Random Glucose (60-115) mg/dL Lactic Acid (0.5-2.0) mmol/L Calcium (8.4-10.2) mg/dL Phosphorus (2.7-4.5) mg/dL Magnesium (1.6-2.6) mg/dL Total Bilirubin (0.0-1.0) mg/dL AST (5-37) U/L ALT (0-40) U/L Alkaline Phosphatase (39-117) U/L Ammonia (13-55) umol/L Total Protein (6.5-8.0) g/dL Albumin (3.5-5.0) g/dL Lipase (8-78) U/L Blood Type Antibody Screen Crossmatch ABG Data Attestation ABG: I personally reviewed and interpreted this ABG as follows: Interpretation: I personally reviewed patient's VBG, clinically unremarkable Independent Interpretation I performed an independent interpretation of an: EKG (I personally reviewed and interpreted the patient's EKG that shows sinus tachycardia with heart rate of 100) and Ultrasound (I personally performed and interpreted the patient's bedside abdominal ultrasound that showed moderate amount of ascites.) External Record Review External record reviewed: Inpatient record (Prior admission records reviewed) Critical Care Time Critical Care Time Critical Care Time: Yes Total Critical Care Time: 35 Attestation: The patient was critically ill with high probability of imminent of life-threatening deterioration, due to upper GI Bleed, acute anemia, I spent 35 minutes of discontinuous time evaluating the patient, delivering critical care at bedside, discussing and evaluating parents and does not with consultants including ICU and GI, critical care time does not include time spent performing separately billable procedure or teaching. Discharge Plan Discharge Clinical Impression: Acute upper gastrointestinal bleeding, Hypokalemia, Acidosis, lactic, ETOH abuse Anemia Qualifiers: Other causes of anemia: acute posthemorrhagic Esophageal varices Qualifiers: Esophageal varices type: secondary Patient Disposition: Admitted As Inpatient Interventions: Admission Worksheet (ED) Last Done: 02/23/24 15:30 Discharge Date/Time: 02/23/24 15:40
[2024-02-23] MEDS: cefTRIAXone sodium 1 GM in 0.9 % Sodium Chloride 50 ML IV (13:56)
[2024-02-23 13:57] LABS: Basophils Absolute Auto 0.1 X10*3/uL (0.0-0.2); Basophils Percent Auto 0.2 % (0-2); Imm Gran Abs Auto 0.67 X10*3/uL (0.00-0.03); Imm Gran Pct Auto 2.1 % (0.0-0.4); Lymphocytes Absolute Auto 2.9 X10*3/uL (1.2-4.9); Lymphocytes Percent Auto 9.3 % (20-40); MANUAL DIFF FLAG SCAN; Mean Corpuscular HGB Conc 29.9 g/dl (31.0-36.0); Mean Corpuscular Hemoglobin 27.9 pg (27.0-33.0); Mean Corpuscular Volume 93.4 fL (80.0-98.0); Mean Platelet Volume 9.8 fL (9.4-12.4); Monocytes Percent Auto 9.6 % (2-11); NRBC Pct Auto 0.1 /100WBC (0.0-0.2); Neutrophils Absolute Auto 24.8 x10*3/uL (2.0-8.3); Neutrophils Percent Auto 78.8 % (45-73); Platelet Count 313 X10*3/uL (160-400); Red Blood Count 1.36 X10*6/uL (4.60-5.80); SCAN SMEAR FLAG 1
[2024-02-23] MEDS: Pantoprazole Sodium 40 MG/10 ML VIAL 80 MG IVPUSH (13:58)
[2024-02-23 14:01] LABS: VBG HCO3 13 mmol/L (22-26); VBG pCO2 21 mmHg; VBG pH 7.41 (7.32-7.43); VBG pO2 69 mmHg
[2024-02-23 14:02] LABS: Venous Blood Gas Refer to POC result
[2024-02-23 14:02] LABS: INTERNATIONAL NORM RATIO 1.8 (0.9-1.1); Prothrombin Time 22.2 SEC (11.1-13.3)
[2024-02-23 14:07] LABS: Hemoglobin 3.8 g/dl (14.0-18.0); White Blood Count 31.5 X10*3/uL (4.8-10.8)
[2024-02-23 14:08] LABS: Hematocrit 12.7 % (42.0-52.0)
[2024-02-23 14:13] LABS: Ammonia 81 umol/L (13-55)
[2024-02-23 14:35] LABS: Alanine Aminotransferase 6 U/L (0-40); Albumin Level 1.4 g/dL (3.5-5.0); Alkaline Phosphatase 142 U/L (39-117); Anion Gap 23 (12-20); Aspartate Amino Transferase 17 U/L (5-37); Bilirubin Total 1.9 mg/dL (0.0-1.0); Blood Urea Nitrogen 11 mg/dL (9-16); Carbon Dioxide 14 mmol/L (22-29); Chloride 101 mmol/L (96-108); Creatinine Clr Calc Pharmacy 61.2; Estimated Glomerular Filt Rate 49; Glucose Random 133 mg/dL (60-115); Lipase 16 U/L (8-78); Potassium 2.9 mmol/L (3.3-5.1); Sodium 135 mmol/L (135-145); Total Protein 4.8 g/dL (6.5-8.0)
[2024-02-23 14:36] LABS: Lactic Acid 14.1 mmol/L (0.5-2.0)
[2024-02-23 14:36] LABS: SLIDE REVIEW VERIFIED
[2024-02-23] MEDS: Octreotide Acetate 100 MCG/ML AMPUL IVPUSH (15:14)
[2024-02-23] MEDS: Potassium Chloride/H20 10 MEQ/100 ML PIGGYBACK 100 MEQ IV ×4 (15:23→18:29)
[2024-02-23 15:44] LABS: Magnesium 1.7 mg/dL (1.6-2.6); Phosphorus 3.6 mg/dL (2.7-4.5)
--- NOTE | 2024-02-23 15:44 | P.CNGI_ITS ---
History of Present Illness Data of Consult Service Date: 02/23/24 Requesting physician: Parag Koch Primary Care Provider: Fransisco Soria MD HPI Reason for consult: UGI bleeding 58 YM with alcohol-induced cirrhosis, recent admission in December for GI bleed with possible gastric source (portal gastropathy), grade 1 varices, GERD, mood disorder, alcohol use disorder, [place] [facility] [place]24 with 4 week hx of dark stools for the past 4 weeks. Pt reports he has had coffee-ground emesis for the past 3 days. Patient reports he had similar symptoms prior to hospitalization in December, (admitted with severe anemia and GI bleeding). Patient denies abdominal pain, reports that he was seen is supervisor throwing department few weeks ago. Pt denies fever or chills, chest pain or shortness of breath. Per EMS patient seemed slightly confused and is oriented to place, time and person. Patient reports multiple episodes of dark stools and dark vomit over the past 48 hours. He denies passage of BRBPR or vomiting red blood Pt states he was using alcohol heavily since the age of 25-his favorite Flavors were alcohol vodka and beers. Pt has been through Rehab treatment in the past. Pt states he has not been drinking for the past 3-4 weeks On arrival patient is tachycardic with systolic blood pressure 110, heart rate 110 Labs showed H&H of 3.8 and 12.7 (decreased from 8.6 and 26.5 on 01/10/24), platelets 313, INR 1.8 Bilirubin of 1.9, alkaline phosphatase 142, albumin 1.4 PAST GI HISTORY BY REVIEW OF MEDICAL RECORDS: 12/28/23 EGD WAS PERFORMED BY DR. OMALLEY DURING LAST HOSPITALIZATION: Esophagus: GE junction at 37 cm, diaphragm hiatus at 40 cm, consistent with 2 cm sliding hiatal hernia. non obstructing schatzki ring noted. 2 columns of grade I varices noted which collpased with air. Erosive esophagitis noted with slough in the distal esophagus. A rim of erythema noted just below the schatzki ring, non bleeding Stomach: Mosaic pattern consistent with portal hypertensive gastropathy Grade 2 flap valve on retroflexed examination of the cardia. No gastric varices see or active bleeding. Duodenum: small non bleeding AVM noted in the bulb, congestive duodenopathy noted. Intervention: None PLAN: no active bleeding or target lesions recommend going on home with carafate BID and PPI if BP allows then low dose statin and beta vera like carvedilol f/u with primary GI at [facility] and repeat EGD in about 4 weeks to reassess varices and esophagitis GERD precautions if HGB conts to drop check hemolysis lab Review of Systems 2 Review of Systems: Yes all other systems are reviewed and are negative [facility] Past Medical History Medical History PTSD (post-traumatic stress disorder) Hyponatremia Acute hyponatremia NATHANIEL (acute kidney injury) Acute metabolic encephalopathy [place] Alcoholic cirrhosis of liver with ascites Prostate cancer Depression Hyperlipidemia Hypertension Anxiety Social History Social History Household Members: Significant Other Household Members Other:: [facility] Do you presently have visiting nurse or other home services: No Alcohol intake: former Patient Tobacco Use Status: Current everyday Tobacco user Tobacco use type: Cigarette Cigarettes Per Day: 5 Years Smoked: 25 Smoked in Last 30 Days: Yes Patient Interested in Nicotine Replacement: No Patient Given Instructions on How to Stop Smoking: Yes Date Education Initiated: 02/23/24 Second Hand Smoke Exposure: No Substance Use Type: Marijuana Substance Use Frequency: Occasionally Last Used Substance: Days (ago) Currently Displaying Signs/Symptoms of Drug Intoxication Withdrawal: No Any prior treatment program specific to substance use: Yes Have you been hit, kicked, punched, or otherwise hurt by someone within the past year? If so, by whom?: No Do you feel safe in your current relationship?: Yes Is there a partner from a previous relationship who is making you feel unsafe now?: No Are you made to feel afraid or neglected: No Spiritual Healthcare Practices: none Quaker Healthcare Practices: Mosque Cultural Healthcare Practices: none Advance Directives: No Advance Directives Information Provided: No Advance Directives on File: No Advance Directives Date on File: 11/11/21 Do you have a plan to hurt others: No Plan Recently lost weight without trying: No Eating poorly because of decreased appetite: Yes Nutrition Risks: Poor intake 0-25% >4 days Poor oral hygiene: Yes service: No Current occupational status: disabled Meds Allergies Allergy/AdvReac Type Severity Reaction Status Date / Time Fish Containing Products Allergy Severe THROAT Verified 02/23/24 13:34 SWELLING peanut [Peanut] Allergy Severe THROAT Verified 02/23/24 13:34 SWELLING Active Medications: Current Medications Potassium Chloride (Potassium Chloride/H20) 10 meq in 100 mls @ 100 mls/hr IV Q1H KULWANT Stop: 02/23/24 18:44 Last Admin: 02/23/24 15:23 Dose: 100 mls/hr Phytonadione 10 mg/ Sodium (Chloride) 51 mls @ 51 mls/hr IV ONCE ONE Stop: 02/23/24 16:44 Sodium Chloride (Ns) 100 mls @ 100 mls/hr IV ONCE ONE Stop: 02/23/24 15:59 Home Medications ?Medication ?Instructions ?Recorded ?Confirmed ?Last Taken ?Type lactulose 10 gram/15 mL oral 30 ml PO TID PRN Constipation 11/11/21 02/23/24 02/28/22 History solution (Constulose) propranolol 10 mg tablet 1 tab PO TID 11/11/21 02/23/24 02/22/24 History topiramate 200 mg tablet (Topamax) 1 tab PO BID 11/11/21 02/23/24 02/22/24 History fluoxetine 20 mg capsule (Prozac) 60 mg PO DAILY 02/06/22 02/23/24 02/22/24 History furosemide 40 mg tablet 1 tab PO BID 10/17/22 02/23/24 02/22/24 History spironolactone 100 mg tablet 1 tab PO DAILY 10/17/22 02/23/24 02/22/24 History tamsulosin 0.4 mg capsule 0.4 mg PO BEDTIME 10/17/22 02/23/24 02/22/24 History hydroxyzine HCl 25 mg tablet 25 - 50 mg PO BID PRN anxiety 11/13/23 02/23/24 Unknown History melatonin 10 mg tablet 10 mg PO BEDTIME PRN Insomnia 11/13/23 02/23/24 Unknown History mirtazapine 15 mg tablet 15 mg PO BEDTIME 11/13/23 02/23/24 02/22/24 History quetiapine 50 mg tablet (Seroquel) 50 mg PO BID 12/27/23 02/23/24 02/22/24 History risperidone 2 mg tablet 2 mg PO BEDTIME 12/27/23 02/23/24 02/22/24 History Physical Exam 2 Vital Signs: Vital Signs: Last Vital Signs Temp 97.5 F 02/23/24 15:03 Pulse 103 H 02/23/24 15:03 Resp 18 02/23/24 15:03 BP 97/48 L 02/23/24 15:03 Pulse Ox 100 02/23/24 13:33 O2 Del Method Room Air 02/23/24 13:33 BMI result Body Mass Index 36.3 Const: General: no acute distress and ill appearing Nutritional Appearance: obese Orientation/consciousness: patient oriented x3 HEENT: Head: Yes normal to inspection Ears: hearing grossly normal bilaterally Eyes: Sclerae: sclerae normal Pupils: Equal, round and reactive pupils present Neck: Neck: Yes normal visual inspection Chest: Chest palpation & inspection: normal inspection of the chest Resp: Effort & Inspection: normal respiratory effort Auscultation: clear to auscultation bilaterally Cardio: Palpation: normal PMI Rate: regular rate Rhythm: regular rhythm Heart sounds: S1 normal heart sound present, S2 normal heart sound present and no murmurs GI: Inspection: Yes distended Palpation (GI): Soft to palpation and nontender Auscultation: normal bowel sounds Rectal Exam - Male: Yes deferred Skin: General skin exam: no rashes or lesions noted Neuro: General: patient oriented x3, gait normal and moves all extremities Cranial nerves: Yes Equal, round and reactive pupils present Extrem: General: Yes pedal edema (Bilateral 2+ pitting edema) Psych: Appearance: grossly normal Mental Status: mental status grossly normal Results Labs 02/24/24 04:40 02/24/24 04:40 Labs: Short CBC 02/23/24 Range/Units 13:50 WBC 31.5 H* (4.8-10.8) X10*3/uL Hgb 3.8 L* D (14.0-18.0) g/dl Hct 12.7 L* D (42.0-52.0) % Plt Count 313 D (160-400) X10*3/uL BMP 02/23/24 13:50 Sodium 135 Potassium 2.9 L* Chloride 101 Carbon Dioxide 14 L BUN 11 Creatinine 1.47 H Calcium 7.0 L Liver Function 02/23/24 Range/Units 13:50 Total Bilirubin 1.9 H (0.0-1.0) mg/dL AST 17 (5-37) U/L ALT 6 (0-40) U/L Alkaline Phosphatase 142 H (39-117) U/L Albumin 1.4 L (3.5-5.0) g/dL Assessment and Plan (1) Acute upper gastrointestinal bleeding: Status: Acute (2) Alcoholic cirrhosis of liver with ascites: Status: Acute (3) Portal hypertensive gastropathy: Status: Acute Plan 58 YM with ESLD due to ETOH abuse complicated by portal hypertension with portal hypertensive gastropathy, hx of hepatic encephalopathy, ascites, recent admission in December for GI bleed with possible gastric source (portal gastropathy), grade 1 varices, GERD, mood disorder, alcohol use disorder, seen [place] [facility] on [place]24 with 4 week hx of dark stools for the past 4 weeks and coffee-ground emesis for the past 3 days. Patient reports he had similar symptoms prior to hospitalization in December, (admitted with severe anemia and GI bleeding). On arrival patient is tachycardic with systolic blood pressure 110, heart rate 110 Labs showed H&H of 3.8 and 12.7 (decreased from 8.6 and 26.5 on 01/10/24), platelets 313, INR 1.8 12/28/23 EGD showed small non-bleeding esophageal varices, erosive esophagitis and portal hypertensive gastropathy. Anemia and GI bleeding is likely related to slow GI blood loss from portal hypertensive gastropathy +/- erosive esophagitis RECOMMENDATIONS: 1. Agree with PPI, octreotide and rocephin 2. Correct anemia and electrolyte imbalance. 3. EGD tomorrow for further assessment - procedure and potential complications reviewed with the patient 4. Alcohol withdrawal protocol, watch for hepatic encepahalopathy with DT--optimize lytes incl K and Mag, Ca Procedures Date of Service Date of Service: 02/24/24
[2024-02-23 15:54] LABS: Reflex Lactate? Lactic Acid Added
[2024-02-23] MEDS: Phytonadione (Vit K1) 10 MG in 0.9 % Sodium Chloride 50 ML 51 MG IV (16:01)
--- NOTE | 2024-02-23 16:16 | PM.CCHP ---
History of Present Illness Date of Service: 02/23/24 Chief Complaint: Upper GI bleed 58-year-old gentleman with underlying history of alcohol abuse and resultant alcoholic cirrhosis, recent admission in December of 2023 for upper GI bleed from gastropathy and grade 1 varices presents today complaining of 2-3 week history of GI bleed symptomatic with dark stools and over the last 3 days with coffee-ground vomiting. On ER evaluation with with hemoglobin of 3.8 started on blood product support. Patient evaluated by gastroenterology service and is planned for upper endoscopy in the morning. Patient has been admitted to the the intensive care unit. Review of Systems Constitutional: Constitutional: Denies daytime sleepiness, Denies excessive sweating, Denies fatigue, Denies fever(s), Denies lethargy, Denies malaise, Denies night sweats, Denies snoring and Denies weight loss Eyes: Eyes: Denies blurry vision and Denies itchy eyes ENT: Denies nasal congestion, Denies post nasal drip, Denies sinus pain, Denies sinus pressure and Denies other ( Thrush) Cardiovascular: Cardiovascular: Denies chest pain, Denies pedal edema, Denies dyspnea, Denies orthopnea and Denies paroxysmal nocturnal dyspnea Respiratory: Respiratory: Denies cough, Denies hemoptysis, Denies excessive phlegm production, Denies dyspnea, Denies snoring and Denies wheezing Gastrointestinal: Gastrointestinal: Denies abdominal pain, Reports melena, Denies heartburn and Reports hematemesis Musculoskeletal: Musculoskeletal: Denies myalgias, Denies arthralgias and Denies joint swelling Integumentary/Breasts: Skin/Breast: Denies rash Neurologic: Denies memory loss and Denies seizure-like activity Psychiatric: Psychiatric: Denies abnormal sleep pattern, Denies anxiety and Denies memory loss Endocrine: Endocrine: Denies excessive sweating, Denies fatigue and Denies heat intolerance Hematologic/Lymphatic: Hematologic/Lymphatic: Denies easy bruising Allergic/Immunologic: Allergic/Immunologic: Denies itchy eyes, Denies seasonal rhinorrhea and Denies wheezing PMFSH Past Medical History Medical History (Updated 02/23/24 @ 15:06 by Dixon House MD) Acute hyponatremia Hyponatremia NATHANIEL (acute kidney injury) Acute metabolic encephalopathy [place] Alcoholic cirrhosis of liver with ascites Prostate cancer Depression Hyperlipidemia Hypertension Anxiety Social History Social History Household Members: Spouse Household Members Other:: fiancee Housing: Condominium Do you presently have visiting nurse or other home services: Yes ([place]) Alcohol intake: former Patient Tobacco Use Status: Current someday Tobacco user Tobacco use type: Cigarette Substance Use Type: Marijuana Advance Directives: No Advance Directives Information Provided: No Advance Directives Date on File: 11/11/21 service: No Current occupational status: disabled Meds Allergies Allergy/AdvReac Type Severity Reaction Status Date / Time Fish Containing Products Allergy Severe THROAT Verified 02/23/24 13:34 SWELLING peanut [Peanut] Allergy Severe THROAT Verified 02/23/24 13:34 SWELLING Active Medications: Current Medications Potassium Chloride (Potassium Chloride/H20) 10 meq in 100 mls @ 100 mls/hr IV Q1H [place] Stop: 02/23/24 18:44 Last Admin: 02/23/24 15:23 Dose: 100 mls/hr Phytonadione 10 mg/ Sodium (Chloride) 51 mls @ 51 mls/hr IV ONCE ONE Stop: 02/23/24 16:44 Last Admin: 02/23/24 16:01 Dose: 51 mls/hr Home Medications ?Medication ?Instructions ?Recorded ?Confirmed ?Last Taken ?Type lactulose 10 gram/15 mL oral 30 ml PO TID PRN Constipation 11/11/21 12/27/23 02/28/22 History solution (Constulose) propranolol 10 mg tablet 1 tab PO TID 11/11/21 12/27/23 10/17/22 History topiramate 200 mg tablet (Topamax) 1 tab PO BID 11/11/21 12/27/23 10/17/22 History fluoxetine 20 mg capsule (Prozac) 60 mg PO DAILY 02/06/22 12/27/23 10/17/22 History furosemide 40 mg tablet 1 tab PO DAILY 10/17/22 12/27/23 10/16/22 History spironolactone 100 mg tablet 1 tab PO DAILY 10/17/22 12/27/23 10/16/22 History tamsulosin 0.4 mg capsule 0.4 mg PO BEDTIME 10/17/22 12/27/23 10/16/22 History hydroxyzine HCl 25 mg tablet 25 - 50 mg PO BID PRN anxiety 11/13/23 12/27/23 Unknown History melatonin 10 mg tablet 10 mg PO BEDTIME PRN Insomnia 11/13/23 12/27/23 Unknown History mirtazapine 15 mg tablet 15 mg PO BEDTIME 11/13/23 12/27/23 Unknown History ondansetron 4 mg disintegrating 4 mg PO Q8H PRN Nausea 11/13/23 12/27/23 Unknown History tablet quetiapine 25 mg tablet (Seroquel) 12.5 mg PO BID PRN anxiety 11/13/23 12/27/23 Unknown History quetiapine 50 mg tablet (Seroquel) 50 mg PO BID 12/27/23 12/27/23 Unknown History risperidone 2 mg tablet 2 mg PO BEDTIME 12/27/23 12/27/23 Unknown History Physical Exam Vital Signs: Vital Signs: Last Vital Signs Temp 97.5 F 02/23/24 16:13 Pulse 97 02/23/24 16:13 Resp 15 02/23/24 16:13 BP 115/47 L 02/23/24 16:13 Pulse Ox 97 02/23/24 16:00 O2 Del Method Room Air 02/23/24 16:00 BMI result Body Mass Index 36.3 Const: General: no acute distress, alert and awake Eyes: Sclerae: sclerae normal EOM: EOMs intact bilaterally Neck: Neck: Yes no lymphadenopathy, Yes trachea midline and Yes supple Resp: Effort & Inspection: normal respiratory effort and no respiratory distress Auscultation: clear to auscultation bilaterally Cardio: Rate: regular rate Rhythm: regular rhythm Heart sounds: no gallops, no murmurs and no rubs GI: Palpation (GI): Soft to palpation and Other GI palpation findings present ( Nontender) Auscultation: normal bowel sounds Extrem: General: Yes no pedal edema (2+ bilateral, taut), No clubbing and No cyanosis Results Labs 02/23/24 13:50 02/23/24 13:50 Labs: Laboratory Results - last 24 hr 02/23/24 02/23/24 02/23/24 13:49 13:50 13:51 MCV 93.4 MCH 27.9 MCHC 29.9 L RDW 17.0 H Plt Count 313 D MPV 9.8 Immature Gran % (Auto) 2.1 H Neut % (Auto) 78.8 H Lymph % (Auto) 9.3 L [place] % (Auto) 9.6 Eos % (Auto) 0.0 Baso % (Auto) 0.2 Lymph # (Auto) 2.9 [place] # (Auto) 3.0 H Eos # (Auto) 0.0 Baso # (Auto) 0.1 Abs Immat Gran (auto) 0.67 H Absolute Neuts (auto) 24.8 H Absolute Nucleated RBC 0.020 H Nucleated RBC % (auto) 0.1 Smear Tech's Comments VERIFIED PT 22.2 H D INR 1.8 H VBG pH VBG pCO2 VBG pO2 VBG HCO3 VBG O2 Saturation VBG Base Excess Anion Gap 23 H Estim Creat Clear Calc 61.2 Estimated GFR 49 Random Glucose 133 H Lactic Acid 14.1 H* Calcium 7.0 L Phosphorus 3.6 Magnesium 1.7 Total Bilirubin 1.9 H AST 17 ALT 6 Alkaline Phosphatase 142 H Ammonia 81 H Total Protein 4.8 L Albumin 1.4 L Lipase 16 Blood Type A Positive Antibody Screen NEGATIVE Crossmatch See Detail 02/23/24 13:54 MCV MCH MCHC RDW Plt Count MPV Immature Gran % (Auto) Neut % (Auto) Lymph % (Auto) [place] % (Auto) Eos % (Auto) Baso % (Auto) Lymph # (Auto) [place] # (Auto) Eos # (Auto) Baso # (Auto) Abs Immat Gran (auto) Absolute Neuts (auto) Absolute Nucleated RBC Nucleated RBC % (auto) Smear Tech's Comments PT INR VBG pH 7.41 VBG pCO2 21 VBG pO2 69 VBG HCO3 13 L VBG O2 Saturation TNP VBG Base Excess -10.0 Anion Gap Estim Creat Clear Calc Estimated GFR Random Glucose Lactic Acid Calcium Phosphorus Magnesium Total Bilirubin AST ALT Alkaline Phosphatase Ammonia Total Protein Albumin Lipase Blood Type Antibody Screen Crossmatch Imaging Radiologist's Impressions: Impressions Chest X-Ray 02/23/24 13:20 IMPRESSION: Unremarkable examination. Assessment and Plan (1) Acute upper gastrointestinal bleeding: Status: Acute (2) ETOH abuse: Status: Acute (3) Esophageal varices: Status: Acute (4) Alcoholic cirrhosis of liver with ascites: Status: Acute (5) Acute blood loss anemia: Status: Inactive (6) NATHANIEL (acute kidney injury): Status: Acute Plan Assessment: 58-year-old gentleman with underlying history of alcoholic cirrhosis, prior upper GI bleed known grade 1 esophageal varices and erosive gastropathy admitted with acute on chronic upper GI bleed Plan: Neuro: No acute issues. Cardiac: No acute issues. Pulmonary: No acute issues. Renal: Acute renal failure. Non oliguric. Continue to monitor renal indices and urine output. Endo: No acute issues. GI: Acute on chronic upper GI bleed with erosive gastropathy and at least grade 1 varices. Gastroenterology service care appreciated. Planned for EGD in a.m.. Continue PPI and octreotide. Underlying alcoholic cirrhosis. ID: No acute issues Heme/Onc: Acute to subacute blood-loss anemia secondary to upper GI bleed. Coagulopathy likely secondary to underlying alcoholic cirrhosis, patient to receive vitamin K. Patient to receive 3 units of packed red blood cell and 2 units of FFP. Continue to monitor hemoglobin level. Psych: No acute issues. Miscellaneous: No acute issues. Prophylaxis: Pneumatic compression Diet: NPO Critical care time spent: 60 minutes
[2024-02-23] MEDS: Calcium Gluconate/NaCl,Iso-Osm 1 GM/50 ML PLAST..BAG IV (16:30)
[2024-02-23] MEDS: Furosemide 40 MG/4 ML VIAL IVPUSH (16:36)
[2024-02-23] MEDS: Octreotide Acetate 500 MCG in 0.9 % Sodium Chloride 500 ML 50.1 MCG IVCONT (17:07)
[2024-02-23] MEDS: Pantoprazole Sodium 40 MG/10 ML VIAL IVPUSH (17:11)
--- NOTE | 2024-02-23 17:14 | PHA.MEDREC ---
Pharmacy Consult ? Medication Reconciliation Pharmacy has completed the medication reconciliation, utilized pharmacy claims and confirmed with patient's significant other, she was able to confirm meds, doses and frequencies.
--- NOTE | 2024-02-23 17:28 | ECG_ITS ---
Test Reason : irregular rhythm Blood Pressure : / mmHG Vent. Rate : 098 BPM Atrial Rate : 098 BPM P-R Int : 154 ms QRS Dur : 100 ms QT Int : 318 ms P-R-T Axes : 052 -14 033 degrees QTc Int : 405 ms Sinus rhythm with Premature atrial complexes with Aberrant conduction Nonspecific T wave abnormality Abnormal ECG No previous ECGs available Referred By: Parag Koch Electronically Signed By:Julio Muro
[2024-02-23] MEDS: Vasopressin 20 UNIT/100 ML INFUS..BTL 12 UNIT IVCONT ×2 (17:30→23:27)
[2024-02-23 17:38] LABS: ~Lactic Acid-LAB USE ONLY 12.7 mmol/L (0.5-2.0)
--- NOTE | 2024-02-23 18:11 | PC.NURSE ---
Patient arrived to unit from ED via stretched at 1500 w/ 1u PRBC infusing - VO Dr Koch increase infusion rate to complete over 30 mins. Patient A&O x3, calm & cooperative, PERRLA. Sinus w/ frequent PACs - EKG ordered - see report. HR maintaining 90's. MAP <65 - TO Dr Koch Vasopressin gtt @ 0.04u ordered and administering - MAP maintaining >65. K 2.9 - KCL 10meq ordered and administering per EMAR. Calcium 7.0 - calcium gluconate 1g ordered and administered per EMAR. Patient arrived from ED w/ #20 angio x3, additional ultrasound guided #20 placed to EFRAIN. +3 edema bilateral lower extremities up to abdomen, scrotal edema noted. Positive pedal pulses. Pneumatics in place. LS dim throughout, breathing even and nonlabored. O2 sat >95% on RA. Lasix 40 IVP ordered and administered per DEC. Abdomen distended, semi firm, faint bowel sounds. Patient had 1 liquid dark red bowel movement. No complaints of pain. Protonix IVP ordered and administered. Sandostating gtt ordered and administering per EMAR. Patient had multiple small episodes of emesis coffee ground - MD notified, zofran to be ordered per MD. Patient NPO pending EGD in AM. H&H 3.8/12.7 - Pt completed 3u PRBC and 2 FFP over 30mins each VO Dr Koch. Repeat labs ordered for 1999. No urine output - unable to obtain accurate bladder scan due to edema and distended abdomen. Barber ordered - unable to place by nursing staff. Urology consulted and pending. Patient reports having no urge to void at this time. Pressure injury to bilateral buttocks - wound consulted, pictures obtained. Airloss bed in place. High fall risk precautions in place.
[2024-02-23] MEDS: ondansetron HCL 4 MG/2 ML VIAL IVPUSH (18:35)
[2024-02-23 18:51] LABS: Reflex Lactate? 2 Y
[2024-02-23 19:39] LABS: ~Lactic Acid-LAB USE ONLY 10.4 mmol/L (0.5-2.0)
--- NOTE | 2024-02-23 19:50 | PM.UROCN ---
History of Present Illness Consult details Consult date: 02/23/24 Narrative: 58 Y M h/o prostate cancer, s/p radiation therapy, h/o with alcohol misuse presenting with 3-day history of hematemesis, found to have profound anemia, admitted to ICU for transfusions. Urology called to place rojas for strict I/O's pt with ho prostate cancer s/p Radiation therapy. Review of Systems Review of Systems: Yes all other systems are reviewed and are negative Constitutional: Constitutional: Reports no additional constitutional complaints Eyes: Eyes: Reports no additional eye complaints ENT: Reports system reviewed and no additional complaints, except as documented Cardiovascular: Cardiovascular: Reports no additional cardiovascular complaints Respiratory: Respiratory: Reports no additional respiratory complaints Gastrointestinal: Gastrointestinal: Reports no additional gastrointestinal complaints Genitourinary: Genitourinary: Reports as per HPI Musculoskeletal: Musculoskeletal: Reports no additional musculoskeletal complaints Integumentary/Breasts: Skin/Breast: Reports system reviewed and no additional complaints, except as docu Neurologic: Reports system reviewed and no additional complaints, except as documented Psychiatric: Psychiatric: Reports no additional psychiatric complaints Endocrine: Endocrine: Reports no additional endocrine complaints Hematologic/Lymphatic: Hematologic/Lymphatic: Reports no additional hematologic/lymphatic complaints Allergic/Immunologic: Allergic/Immunologic: Reports no additional allergic/immunologic complaints [facility] Past Medical History Medical History PTSD (post-traumatic stress disorder) Hyponatremia Acute hyponatremia NATHANIEL (acute kidney injury) Acute metabolic encephalopathy [place] Alcoholic cirrhosis of liver with ascites Prostate cancer Depression Hyperlipidemia Hypertension Anxiety Social History Social History Household Members: Significant Other Household Members Other:: fiancee Housing: Condominium Do you presently have visiting nurse or other home services: No Alcohol intake: former Patient Tobacco Use Status: Current everyday Tobacco user Tobacco use type: Cigarette Cigarettes Per Day: 5 Years Smoked: 25 Smoked in Last 30 Days: Yes Patient Interested in Nicotine Replacement: No Patient Given Instructions on How to Stop Smoking: Yes Date Education Initiated: 02/23/24 Second Hand Smoke Exposure: No Substance Use Type: Marijuana Substance Use Frequency: Occasionally Last Used Substance: Days (ago) Currently Displaying Signs/Symptoms of Drug Intoxication Withdrawal: No Any prior treatment program specific to substance use: Yes Have you been hit, kicked, punched, or otherwise hurt by someone within the past year? If so, by whom?: No Do you feel safe in your current relationship?: Yes Is there a partner from a previous relationship who is making you feel unsafe now?: No Are you made to feel afraid or neglected: No Spiritual Healthcare Practices: none Moravian Healthcare Practices: Scientologist Cultural Healthcare Practices: none Advance Directives: No Advance Directives Information Provided: No Advance Directives on File: No Advance Directives Date on File: 11/11/21 Do you have a plan to hurt others: No Plan Recently lost weight without trying: No Eating poorly because of decreased appetite: Yes Nutrition Risks: Poor intake 0-25% >4 days Poor oral hygiene: Yes service: No Current occupational status: disabled Meds Allergies Allergy/AdvReac Type Severity Reaction Status Date / Time Fish Containing Products Allergy Severe THROAT Verified 02/23/24 13:34 SWELLING peanut [Peanut] Allergy Severe THROAT Verified 02/23/24 13:34 SWELLING Active Medications: Current Medications Octreotide Acetate 500 mcg/ (Sodium Chloride) 501 mls @ 50.1 mls/hr IVCONT .Q10H [facility] Last Admin: 02/23/24 17:07 Dose: 50 mcg/hr, 50.1 mls/hr Vasopressin (Vasostrict) 20 unit in 100 mls @ 12 mls/hr IVCONT .Q8H20M [facility], 1928–1983 Last Admin: 02/23/24 17:30 Dose: 0.04 unit/min, 12 mls/hr Pantoprazole Sodium (Pantoprazole Sodium 40 Mg/10 Ml Vial) 40 mg IVPUSH BID@0630,1630 [facility], [facility]1983 Last Admin: 02/23/24 17:11 Dose: 40 mg Home Medications ?Medication ?Instructions ?Recorded ?Confirmed ?Last Taken ?Type lactulose 10 gram/15 mL oral 30 ml PO TID PRN Constipation 11/11/21 02/23/24 02/28/22 History solution (Constulose) propranolol 10 mg tablet 1 tab PO TID 11/11/21 02/23/24 02/22/24 History topiramate 200 mg tablet (Topamax) 1 tab PO BID 11/11/21 02/23/24 02/22/24 History fluoxetine 20 mg capsule (Prozac) 60 mg PO DAILY 02/06/22 02/23/24 02/22/24 History furosemide 40 mg tablet 1 tab PO BID 10/17/22 02/23/24 02/22/24 History spironolactone 100 mg tablet 1 tab PO DAILY 10/17/22 02/23/24 02/22/24 History tamsulosin 0.4 mg capsule 0.4 mg PO BEDTIME 10/17/22 02/23/24 02/22/24 History hydroxyzine HCl 25 mg tablet 25 - 50 mg PO BID PRN anxiety 11/13/23 02/23/24 Unknown History melatonin 10 mg tablet 10 mg PO BEDTIME PRN Insomnia 11/13/23 02/23/24 Unknown History mirtazapine 15 mg tablet 15 mg PO BEDTIME 11/13/23 02/23/24 02/22/24 History quetiapine 50 mg tablet (Seroquel) 50 mg PO BID 12/27/23 02/23/24 02/22/24 History risperidone 2 mg tablet 2 mg PO BEDTIME 12/27/23 02/23/24 02/22/24 History Physical Exam Vital Signs: Vital Signs: Last Vital Signs Temp 97.9 F 02/23/24 18:24 Pulse 89 02/23/24 19:00 Resp 18 02/23/24 19:00 BP 111/52 L 02/23/24 19:00 Pulse Ox 99 02/23/24 19:00 O2 Del Method Room Air 02/23/24 19:00 BMI result Body Mass Index 36.3 Const: General: no acute distress and well developed Nutritional Appearance: overweight Orientation/consciousness: patient oriented x3 HEENT: Head: Yes normocephalic and Yes atraumatic Neck: Neck: Yes normal visual inspection Chest: Chest palpation & inspection: normal inspection of the chest Resp: Effort & Inspection: normal respiratory effort Cardio: Jugular venous distension: no JVD GI: Inspection: Yes normal to inspection : Scrotum: scrotum normal Neuro: General: patient oriented x3 Extrem: Right upper extremity: edema Psych: Appearance: grossly normal Affect: normal affect Results Labs 02/23/24 20:15 02/23/24 20:15 Labs: Abnormal lab results 02/23/24 02/23/24 02/23/24 Range/Units 13:49 13:50 13:51 WBC 31.5 H* (4.8-10.8) X10*3/uL RBC 1.36 L D (4.60-5.80) X10*6/uL Hgb 3.8 L* D (14.0-18.0) g/dl Hct 12.7 L* D (42.0-52.0) % MCHC 29.9 L (31.0-36.0) g/dl RDW 17.0 H (11.0-16.0) % Immature Gran % (Auto) 2.1 H (0.0-0.4) % Neut % (Auto) 78.8 H (45-73) % Lymph % (Auto) 9.3 L (20-40) % [place] # (Auto) 3.0 H (0.1-1.2) X10*3/uL Abs Immat Gran (auto) 0.67 H (0.00-0.03) X10*3/uL Absolute Neuts (auto) 24.8 H (2.0-8.3) x10*3/uL Absolute Nucleated RBC 0.020 H (0.0-0.012) X10*3/uL PT 22.2 H D (11.1-13.3) SEC INR 1.8 H (0.9-1.1) VBG HCO3 (22-26) mmol/L Potassium 2.9 L* (3.3-5.1) mmol/L Carbon Dioxide 14 L (22-29) mmol/L Anion Gap 23 H (12-20) Creatinine 1.47 H (0.5-1.4) mg/dL Random Glucose 133 H (60-115) mg/dL Lactic Acid 14.1 H* (0.5-2.0) mmol/L Lactic Acid F/U @ 2Hr (0.5-2.0) mmol/L Lactic Acid F/U @ 4Hr (0.5-2.0) mmol/L Calcium 7.0 L (8.4-10.2) mg/dL Total Bilirubin 1.9 H (0.0-1.0) mg/dL Alkaline Phosphatase 142 H (39-117) U/L Ammonia 81 H (13-55) umol/L Total Protein 4.8 L (6.5-8.0) g/dL Albumin 1.4 L (3.5-5.0) g/dL Crossmatch See Detail 02/23/24 02/23/24 02/23/24 Range/Units 13:54 16:37 19:02 WBC (4.8-10.8) X10*3/uL RBC (4.60-5.80) X10*6/uL Hgb (14.0-18.0) g/dl Hct (42.0-52.0) % MCHC (31.0-36.0) g/dl RDW (11.0-16.0) % Immature Gran % (Auto) (0.0-0.4) % Neut % (Auto) (45-73) % Lymph % (Auto) (20-40) % [place] # (Auto) (0.1-1.2) X10*3/uL Abs Immat Gran (auto) (0.00-0.03) X10*3/uL Absolute Neuts (auto) (2.0-8.3) x10*3/uL Absolute Nucleated RBC (0.0-0.012) X10*3/uL PT (11.1-13.3) SEC INR (0.9-1.1) VBG HCO3 13 L (22-26) mmol/L Potassium (3.3-5.1) mmol/L Carbon Dioxide (22-29) mmol/L Anion Gap (12-20) Creatinine (0.5-1.4) mg/dL Random Glucose (60-115) mg/dL Lactic Acid (0.5-2.0) mmol/L Lactic Acid F/U @ 2Hr 12.7 H* (0.5-2.0) mmol/L Lactic Acid F/U @ 4Hr 10.4 H* (0.5-2.0) mmol/L Calcium (8.4-10.2) mg/dL Total Bilirubin (0.0-1.0) mg/dL Alkaline Phosphatase (39-117) U/L Ammonia (13-55) umol/L Total Protein (6.5-8.0) g/dL Albumin (3.5-5.0) g/dL Crossmatch Short CBC 02/23/24 Range/Units 13:50 WBC 31.5 H* (4.8-10.8) X10*3/uL Hgb 3.8 L* D (14.0-18.0) g/dl Hct 12.7 L* D (42.0-52.0) % Plt Count 313 D (160-400) X10*3/uL BMP 02/23/24 13:50 Sodium 135 Potassium 2.9 L* Chloride 101 Carbon Dioxide 14 L BUN 11 Creatinine 1.47 H Calcium 7.0 L Liver Function 02/23/24 Range/Units 13:50 Total Bilirubin 1.9 H (0.0-1.0) mg/dL AST 17 (5-37) U/L ALT 6 (0-40) U/L Alkaline Phosphatase 142 H (39-117) U/L Albumin 1.4 L (3.5-5.0) g/dL Imaging Abdomen CT scan report/results: report reviewed and image reviewed CT scan - pelvis: report reviewed and image reviewed Additional studies: Date of Service: 12/27/23 CT ABDOMEN AND PELVIS WITHOUT AND WITH CONTRAST CLINICAL INFORMATION: GI bleeding. COMPARISON: 10/17/2022 TECHNIQUE: Multidetector volumetric imaging was performed of the abdomen and pelvis prior to and following administration of 80 mL Omnipaque 350 intravenous contrast. No oral contrast material.. Sagittal and coronal reformatted images were obtained on the technologist's workstation. This CT examination was performed using dose optimization techniques as appropriate, variously including the following: *Automated exposure control *Adjustment of mA and/or kV according to patient size (this includes techniques or standardized protocols for targeted exams where dose is matched to indication/reason for exam; i.e. extremities or head) *Use of iterative reconstruction technique DLP: 2214 mGy-cm FINDINGS: LUNG BASES: There is atelectatic change at the left lung base. LIVER, GALLBLADDER, AND BILIARY TREE: The liver is heterogeneous and irregular in contour. No focal liver lesions are seen. There is no intrahepatic biliary duct dilatation. Multiple gallstones are noted. PANCREAS: Unremarkable SPLEEN: Unremarkable ADRENAL GLANDS: Unremarkable KIDNEYS AND URETERS: The kidneys are normal in size, shape, and attenuation. No hydronephrosis, hydroureter, or calculi seen. No perinephric stranding. BLADDER: Unremarkable GASTROINTESTINAL TRACT: There is no bowel dilatation. The appendix is not confidently seen as a separate structure. There is mild rectal thickening. There is no evidence of contrast extravasation to suggest active GI bleeding ABDOMINAL WALL: There is soft tissue anasarca. LYMPH NODES: Normal VASCULAR: Splenic varices are noted. FLUID: There is small volume ascites and mesenteric edema. PELVIC VISCERA: Pelvic viscera are unremarkable. There is a amount of free fluid within the pelvis. OSSEOUS STRUCTURES: There is diffuse [id number] thoracolumbar disc degenerative change. IMPRESSION: 1. No evidence of active GI bleeding. 2. Cirrhosis of the liver with evidence of portal hypertension. 3. Cholelithiasis. 4. Small volume ascites. 5. Mild rectal thickening possibly a mild proctitis. Assessment and Plan (1) ETOH abuse: Status: Acute (2) Anemia: Qualifiers: Other causes of anemia: acute posthemorrhagic Status: Acute (3) History of prostate cancer: Status: Acute (4) Bladder neck obstruction: Status: Acute Plan Difficult rojas catheterization due to bladder neck scarring, likely secondary to radiation therapy for prostate cancer Urethral dilation, 10 fr sequential to 18 fr followed by 16 fr [employer] tip catheter insertion. Concentrated urine return 20 mL urine output. Procedures Date of Service Date of Service: 02/23/24 Catheter Insertion (Urinary) Date of insertion: 02/23/24 Reason for placing: ICU pt on diuretics Bladder scan/ultrasound used before catheterization: No Antiseptic solution prep: Povidone-Iodine Catheter type/location: 2-way Urethral Size (Faroese): 16 Catheter balloon size (mL): 10 Catheter balloon amount: 10 Results: unable to pass and consulted Procedure performed: without complications Comment: Pt with significant edema, cirrhotic bladder scan not accurate Additional comments: Pt receiving blood products due to significant anemia. Flexible cystoscopy - findings bladder neck obstruction, urethral dilation 10 fr to 18 fr
[2024-02-23] MEDS: Lidocaine HCl 2 % Urojet 10 ML JEL.PF.APP TOPICAL ×3 (20:07→20:30)
[2024-02-23 20:21] LABS: MANUAL DIFF FLAG NO
[2024-02-23 20:22] LABS: Basophils Absolute Auto 0.1 X10*3/uL (0.0-0.2); Basophils Percent Auto 0.2 % (0-2); Imm Gran Abs Auto 0.31 X10*3/uL (0.00-0.03); Imm Gran Pct Auto 1.2 % (0.0-0.4); Lymphocytes Absolute Auto 2.5 X10*3/uL (1.2-4.9); Lymphocytes Percent Auto 9.9 % (20-40); Mean Corpuscular HGB Conc 33.2 g/dl (31.0-36.0); Mean Corpuscular Hemoglobin 29.2 pg (27.0-33.0); Mean Platelet Volume 9.9 fL (9.4-12.4); Monocytes Absolute Auto 2.4 X10*3/uL (0.1-1.2); Monocytes Percent Auto 9.6 % (2-11); Neutrophils Percent Auto 79.1 % (45-73); Platelet Count 180 X10*3/uL (160-400); Red Blood Count 2.16 X10*6/uL (4.60-5.80); Red Cell Distribution Width 15.2 % (11.0-16.0); SCAN SMEAR FLAG 1; White Blood Count 25.3 X10*3/uL (4.8-10.8)
[2024-02-23] MEDS: Morphine Sulfate 2 MG/ML CARTRIDGE IVPUSH (20:24)
[2024-02-23 20:26] LABS: Hemoglobin 6.3 g/dl (14.0-18.0)
[2024-02-23 20:43] LABS: Anion Gap 21 (12-20); Blood Urea Nitrogen 15 mg/dL (9-16); Calcium 7.3 mg/dL (8.4-10.2); Carbon Dioxide 17 mmol/L (22-29); Chloride 102 mmol/L (96-108); Creatinine Clr Calc Pharmacy 59.2; Estimated Glomerular Filt Rate 47; Glucose Random 135 mg/dL (60-115); Potassium 3.7 mmol/L (3.3-5.1); Sodium 136 mmol/L (135-145)
[2024-02-23] MEDS: Calcium Gluconate/NaCl,Iso-Osm 2 GM/100 ML PLAST..BAG IV (21:38)
[2024-02-23] MEDS: Norepinephrine Bitartrate/D5W 8 MG/250 ML PLAST..BAG 9.56 MG IV (22:40)
--- NOTE | 2024-02-23 23:20 | HO.SKINPHOTO ---
Location: Bilateral buttocks Category: MASD Stage: Length: Width: Depth: cm
[2024-02-24] VITALS (34 sets, daily range): BP systolic 92–142; BP diastolic 33–68; PULSE 57–92; RESP 11–26; TEMP 36.1–37.1; O2SAT 88–98; BMI 38.2
--- NOTE | 2024-02-24 | ECG_ITS ---
Test Reason : chest pain Blood Pressure : / mmHG Vent. Rate : 057 BPM Atrial Rate : 057 BPM P-R Int : 156 ms QRS Dur : 110 ms QT Int : 582 ms P-R-T Axes : 047 -02 -12 degrees QTc Int : 566 ms Sinus bradycardia T wave abnormality, consider anterior ischemia Prolonged QT Abnormal ECG When compared to the previous EKG of Anterior T wave inversions present Referred By: Parag Koch Electronically Signed By:Julio Muro
[2024-02-24 00:42] LABS: VBG Base Excess -0.5 mmol/L; VBG HCO3 22 mmol/L (22-26); VBG pCO2 28 mmHg; VBG pH 7.49 (7.32-7.43); VBG pO2 39 mmHg
[2024-02-24 00:44] LABS: Basophils Absolute Auto 0.1 X10*3/uL (0.0-0.2); Basophils Percent Auto 0.5 % (0-2); Eosinophils Percent Auto 0.2 % (0-4); Hematocrit 24.5 % (42.0-52.0); Hemoglobin 8.3 g/dl (14.0-18.0); Imm Gran Abs Auto 0.16 X10*3/uL (0.00-0.03); Imm Gran Pct Auto 0.8 % (0.0-0.4); Lymphocytes Absolute Auto 2.3 X10*3/uL (1.2-4.9); Lymphocytes Percent Auto 10.6 % (20-40); MANUAL DIFF FLAG SCAN; Mean Corpuscular HGB Conc 33.9 g/dl (31.0-36.0); Mean Corpuscular Hemoglobin 29.6 pg (27.0-33.0); Mean Corpuscular Volume 87.5 fL (80.0-98.0); Mean Platelet Volume 9.9 fL (9.4-12.4); Monocytes Absolute Auto 1.9 X10*3/uL (0.1-1.2); Monocytes Percent Auto 9.1 % (2-11); NRBC Pct Auto 0.1 /100WBC (0.0-0.2); Neutrophils Absolute Auto 16.8 x10*3/uL (2.0-8.3); Neutrophils Percent Auto 78.8 % (45-73); Platelet Count 166 X10*3/uL (160-400); Red Cell Distribution Width 15.6 % (11.0-16.0); SCAN SMEAR FLAG 1; White Blood Count 21.3 X10*3/uL (4.8-10.8)
[2024-02-24 00:54] LABS: Anion Gap 16 (12-20); Blood Urea Nitrogen 16 mg/dL (9-16); Calcium 7.6 mg/dL (8.4-10.2); Carbon Dioxide 21 mmol/L (22-29); Chloride 102 mmol/L (96-108); Creatinine Clr Calc Pharmacy 57.7; Estimated Glomerular Filt Rate 46; Glucose Random 144 mg/dL (60-115); Potassium 3.5 mmol/L (3.3-5.1); Sodium 135 mmol/L (135-145)
[2024-02-24 00:58] LABS: Venous Blood Gas Refer to POC result
[2024-02-24 01:05] LABS: SLIDE REVIEW VERIFIED
[2024-02-24] MEDS: Albumin Human 25 % 100 ML IV ×5 (01:38→20:03)
[2024-02-24] MEDS: Calcium Gluconate/NaCl,Iso-Osm 1 GM/50 ML PLAST..BAG IV (01:39)
[2024-02-24] MEDS: Potassium Chloride/H20 10 MEQ/100 ML PIGGYBACK 100 MEQ IV ×4 (01:42→04:50)
[2024-02-24] MEDS: Octreotide Acetate 500 MCG in 0.9 % Sodium Chloride 500 ML 50.1 MCG IVCONT ×2 (01:43→10:10)
[2024-02-24 04:46] LABS: VBG Base Excess 2.3 mmol/L; VBG HCO3 25 mmol/L (22-26); VBG pCO2 31 mmHg; VBG pO2 47 mmHg
[2024-02-24 05:05] LABS: Basophils Absolute Auto 0.1 X10*3/uL (0.0-0.2); Basophils Percent Auto 0.5 % (0-2); Eosinophils Absolute Auto 0.1 X10*3/uL (0.0-0.4); Eosinophils Percent Auto 0.4 % (0-4); Hematocrit 21.2 % (42.0-52.0); Hemoglobin 7.5 g/dl (14.0-18.0); Imm Gran Abs Auto 0.15 X10*3/uL (0.00-0.03); Imm Gran Pct Auto 0.9 % (0.0-0.4); Lymphocytes Absolute Auto 1.5 X10*3/uL (1.2-4.9); Lymphocytes Percent Auto 8.7 % (20-40); MANUAL DIFF FLAG SCAN; Mean Corpuscular HGB Conc 35.4 g/dl (31.0-36.0); Mean Corpuscular Hemoglobin 30.2 pg (27.0-33.0); Mean Corpuscular Volume 85.5 fL (80.0-98.0); Mean Platelet Volume 9.9 fL (9.4-12.4); Monocytes Absolute Auto 1.6 X10*3/uL (0.1-1.2); Monocytes Percent Auto 9.5 % (2-11); Neutrophils Absolute Auto 13.7 x10*3/uL (2.0-8.3); Platelet Count 174 X10*3/uL (160-400); Red Blood Count 2.48 X10*6/uL (4.60-5.80); Red Cell Distribution Width 15.1 % (11.0-16.0); SCAN SMEAR FLAG 1
[2024-02-24 05:26] LABS: Alanine Aminotransferase 10 U/L (0-40); Albumin Level 2.4 g/dL (3.5-5.0); Alkaline Phosphatase 117 U/L (39-117); Anion Gap 15 (12-20); Aspartate Amino Transferase 20 U/L (5-37); Bilirubin Total 5.2 mg/dL (0.0-1.0); Blood Urea Nitrogen 18 mg/dL (9-16); Calcium 7.9 mg/dL (8.4-10.2); Carbon Dioxide 23 mmol/L (22-29); Chloride 101 mmol/L (96-108); Creatinine Clr Calc Pharmacy 58.1; Estimated Glomerular Filt Rate 46; Glucose Random 137 mg/dL (60-115); Magnesium 1.7 mg/dL (1.6-2.6); Phosphorus 3.3 mg/dL (2.7-4.5); Potassium 3.6 mmol/L (3.3-5.1); Sodium 135 mmol/L (135-145); Total Protein 5.5 g/dL (6.5-8.0)
[2024-02-24] MEDS: Pantoprazole Sodium 40 MG/10 ML VIAL IVPUSH ×2 (05:31→17:02)
[2024-02-24 05:37] LABS: Venous Blood Gas Refer to POC result
[2024-02-24] MEDS: Vasopressin 20 UNIT/100 ML INFUS..BTL 12 UNIT IVCONT ×3 (07:24→22:51)
--- NOTE | 2024-02-24 10:15 | P.CONAN_ITS ---
HPI - Anesthesia Eval Consult details Narrative: GI bleed PMFSH Active Problems Active Problems: All Active Problems Bladder neck obstruction (Acute) History of prostate cancer (Acute) ETOH abuse (Acute) Acidosis, lactic (Acute) Hypokalemia (Acute) Esophageal varices (Acute) Anemia (Acute) Acute upper gastrointestinal bleeding (Acute) Acute lactic acidosis (Acute) Alcoholic cirrhosis (Acute) Hypokalemia (Acute) Esophageal varices (Acute) Portal hypertensive gastropathy (Acute) Erosive esophagitis (Acute) Alcohol dependence (Acute) Anemia (Acute) Acute hyponatremia (Acute) Acute GI bleeding (Acute) Ascites (Acute) GI bleed (Acute) Encephalopathy (Acute) NATHANIEL (acute kidney injury) (Acute) Anasarca (Acute) History of radiation therapy (Acute) Fatty liver (Acute) Hyponatremia (Acute) Alcoholic cirrhosis of liver with ascites (Acute) Hypertension (Acute) Hyperlipidemia (Acute) Depression (Acute) Anxiety (Acute) Past Medical History Medical History PTSD (post-traumatic stress disorder) Hyponatremia Acute hyponatremia NATHANIEL (acute kidney injury) Acute metabolic encephalopathy [place] Alcoholic cirrhosis of liver with ascites Prostate cancer Depression Hyperlipidemia Hypertension Anxiety Family History Family history of problems with anesthesia: No Surgical History History of Problems with Anesthesia: No Social History Social History Household Members: Significant Other Household Members Other:: fiancee [facility]: [facility] Do you presently have visiting nurse or other home services: No Alcohol intake: former Patient Tobacco Use Status: Current everyday Tobacco user Tobacco use type: Cigarette Cigarettes Per Day: 5 Years Smoked: 25 Smoked in Last 30 Days: Yes Patient Interested in Nicotine Replacement: No Patient Given Instructions on How to Stop Smoking: Yes Date Education Initiated: 02/23/24 Second Hand Smoke Exposure: No Substance Use Type: Marijuana Substance Use Frequency: Occasionally Last Used Substance: Days (ago) Currently Displaying Signs/Symptoms of Drug Intoxication Withdrawal: No Any prior treatment program specific to substance use: Yes Have you been hit, kicked, punched, or otherwise hurt by someone within the past year? If so, by whom?: No Do you feel safe in your current relationship?: Yes Is there a partner from a previous relationship who is making you feel unsafe now?: No Are you made to feel afraid or neglected: No Spiritual Healthcare Practices: none Jehovah'S Witness Healthcare Practices: [place] Cultural Healthcare Practices: none Advance Directives: No Advance Directives Information Provided: No Advance Directives on File: No Advance Directives Date on File: 11/11/21 Do you have a plan to hurt others: No Plan Recently lost weight without trying: No Eating poorly because of decreased appetite: Yes Nutrition Risks: Poor intake 0-25% >4 days Poor oral hygiene: Yes service: No Current occupational status: disabled Meds Allergies Allergy/AdvReac Type Severity Reaction Status Date / Time Fish Containing Products Allergy Severe THROAT Verified 02/23/24 13:34 SWELLING peanut [Peanut] Allergy Severe THROAT Verified 02/23/24 13:34 SWELLING Active Medications: Current Medications Octreotide Acetate 500 mcg/ (Sodium Chloride) 501 mls @ 50.1 mls/hr IVCONT .Q10H FOR[facility], 1928–1983 Last Admin: 02/24/24 10:10 Dose: 50 mcg/hr, 50.1 mls/hr Vasopressin (Vasostrict) 20 unit in 100 mls @ 12 mls/hr IVCONT .Q8H20M FOR[facility]LY [facility], 1928–1983 Last Admin: 02/24/24 07:24 Dose: 0.04 unit/min, 12 mls/hr Norepinephrine Bitartrate (Levophed) 8 mg in 250 mls @ 0 mls/hr IV .Q0M FORMERLY [facility], [facility]–1983; Protocol Last Titration: 02/24/24 07:18 Dose: 0.07 mcg/kg/min, 13.39 mls/hr Albumin Human (Kedbumin 25 %) 100 mls @ 100 mls/hr IV Q6H FOR[facility], [facility]–1983 Stop: 02/25/24 03:59 Last Infusion: 02/24/24 10:10 Dose: Infused Pantoprazole Sodium (Pantoprazole Sodium 40 Mg/10 Ml Vial) 40 mg IVPUSH BID@0630,1630 FOR[facility], [facility]–1983 Last Admin: 02/24/24 05:31 Dose: 40 mg Home Medications ?Medication ?Instructions ?Recorded ?Confirmed ?Last Taken ?Type lactulose 10 gram/15 mL oral 30 ml PO TID PRN Constipation 11/11/21 02/23/24 02/28/22 History solution (Constulose) propranolol 10 mg tablet 1 tab PO TID 11/11/21 02/23/24 02/22/24 History topiramate 200 mg tablet (Topamax) 1 tab PO BID 11/11/21 02/23/24 02/22/24 History fluoxetine 20 mg capsule (Prozac) 60 mg PO DAILY 02/06/22 02/23/24 02/22/24 History furosemide 40 mg tablet 1 tab PO BID 10/17/22 02/23/24 02/22/24 History spironolactone 100 mg tablet 1 tab PO DAILY 10/17/22 02/23/24 02/22/24 History tamsulosin 0.4 mg capsule 0.4 mg PO BEDTIME 10/17/22 02/23/24 02/22/24 History hydroxyzine HCl 25 mg tablet 25 - 50 mg PO BID PRN anxiety 11/13/23 02/23/24 Unknown History melatonin 10 mg tablet 10 mg PO BEDTIME PRN Insomnia 11/13/23 02/23/24 Unknown History mirtazapine 15 mg tablet 15 mg PO BEDTIME 11/13/23 02/23/24 02/22/24 History quetiapine 50 mg tablet (Seroquel) 50 mg PO BID 12/27/23 02/23/24 02/22/24 History risperidone 2 mg tablet 2 mg PO BEDTIME 12/27/23 02/23/24 02/22/24 History Exam Height,Weight and Vital Signs: Height 5 ft 6 in Weight 107.5 kg Last Vital Signs Temp 97.8 F 02/24/24 08:00 Pulse 66 02/24/24 10:00 Resp 16 02/24/24 10:00 BP 116/50 L 02/24/24 10:00 Pulse Ox 94 02/24/24 10:00 O2 Del Method Room Air 02/24/24 10:00 Pertinent Lab Results Pertinent Lab Results: Laboratory Tests 02/23/24 02/23/24 02/23/24 13:49 13:50 13:51 WBC 31.5 H* RBC 1.36 L D Hgb 3.8 L* D Hct 12.7 L* D MCV 93.4 MCH 27.9 MCHC 29.9 L RDW 17.0 H Plt Count 313 D MPV 9.8 Immature Gran % (Auto) 2.1 H Neut % (Auto) 78.8 H Lymph % (Auto) 9.3 L [place] % (Auto) 9.6 Eos % (Auto) 0.0 Baso % (Auto) 0.2 Lymph # (Auto) 2.9 [place] # (Auto) 3.0 H Eos # (Auto) 0.0 Baso # (Auto) 0.1 Abs Immat Gran (auto) 0.67 H Absolute Neuts (auto) 24.8 H Absolute Nucleated RBC 0.020 H Nucleated RBC % (auto) 0.1 Smear Tech's Comments VERIFIED PT 22.2 H D INR 1.8 H VBG pH VBG pCO2 VBG pO2 VBG HCO3 VBG O2 Saturation VBG Base Excess Sodium 135 Potassium 2.9 L* Chloride 101 Carbon Dioxide 14 L Anion Gap 23 H BUN 11 Creatinine 1.47 H Estim Creat Clear Calc 61.2 Estimated GFR 49 Random Glucose 133 H Lactic Acid 14.1 H* Lactic Acid F/U @ 2Hr Lactic Acid F/U @ 4Hr Calcium 7.0 L Phosphorus 3.6 Magnesium 1.7 Total Bilirubin 1.9 H AST 17 ALT 6 Alkaline Phosphatase 142 H Ammonia 81 H Total Protein 4.8 L Albumin 1.4 L Lipase 16 Blood Type A Positive Antibody Screen NEGATIVE Crossmatch See Detail 02/23/24 02/23/24 02/23/24 13:54 16:37 19:02 WBC RBC Hgb Hct MCV MCH MCHC RDW Plt Count MPV Immature Gran % (Auto) Neut % (Auto) Lymph % (Auto) [place] % (Auto) Eos % (Auto) Baso % (Auto) Lymph # (Auto) [place] # (Auto) Eos # (Auto) Baso # (Auto) Abs Immat Gran (auto) Absolute Neuts (auto) Absolute Nucleated RBC Nucleated RBC % (auto) Smear Tech's Comments PT INR VBG pH 7.41 VBG pCO2 21 VBG pO2 69 VBG HCO3 13 L VBG O2 Saturation TNP VBG Base Excess -10.0 Sodium Potassium Chloride Carbon Dioxide Anion Gap BUN Creatinine Estim Creat Clear Calc Estimated GFR Random Glucose Lactic Acid Lactic Acid F/U @ 2Hr 12.7 H* Lactic Acid F/U @ 4Hr 10.4 H* Calcium Phosphorus Magnesium Total Bilirubin AST ALT Alkaline Phosphatase Ammonia Total Protein Albumin Lipase Blood Type Antibody Screen Crossmatch 02/23/24 02/24/24 02/24/24 20:15 00:33 04:38 WBC 25.3 H 21.3 H RBC 2.16 L D 2.80 L D Hgb 6.3 L* D 8.3 L D Hct 19.0 L* D 24.5 L D MCV 88.0 D 87.5 MCH 29.2 29.6 MCHC 33.2 33.9 RDW 15.2 15.6 Plt Count 180 D 166 MPV 9.9 9.9 Immature Gran % (Auto) 1.2 H 0.8 H Neut % (Auto) 79.1 H 78.8 H Lymph % (Auto) 9.9 L 10.6 L [place] % (Auto) 9.6 9.1 Eos % (Auto) 0.0 0.2 Baso % (Auto) 0.2 0.5 Lymph # (Auto) 2.5 2.3 [place] # (Auto) 2.4 H 1.9 H Eos # (Auto) 0.0 0.0 Baso # (Auto) 0.1 0.1 Abs Immat Gran (auto) 0.31 H 0.16 H Absolute Neuts (auto) 20.0 H 16.8 H Absolute Nucleated RBC 0.000 0.020 H Nucleated RBC % (auto) 0.0 0.1 Smear Tech's Comments VERIFIED PT INR VBG pH 7.49 H 7.50 H VBG pCO2 28 31 VBG pO2 39 47 VBG HCO3 22 25 VBG O2 Saturation 74.0 84.0 VBG Base Excess -0.5 2.3 Sodium 136 135 Potassium 3.7 D 3.5 Chloride 102 102 Carbon Dioxide 17 L 21 L Anion Gap 21 H 16 BUN 15 16 Creatinine 1.52 H 1.56 H Estim Creat Clear Calc 59.2 57.7 Estimated GFR 47 46 Random Glucose 135 H 144 H Lactic Acid Lactic Acid F/U @ 2Hr Lactic Acid F/U @ 4Hr Calcium 7.3 L 7.6 L Phosphorus Magnesium Total Bilirubin AST ALT Alkaline Phosphatase Ammonia Total Protein Albumin Lipase Blood Type Antibody Screen Crossmatch 02/24/24 04:40 WBC 17.0 H RBC 2.48 L Hgb 7.5 L Hct 21.2 L MCV 85.5 MCH 30.2 MCHC 35.4 RDW 15.1 Plt Count 174 MPV 9.9 Immature Gran % (Auto) 0.9 H Neut % (Auto) 80.0 H Lymph % (Auto) 8.7 L [place] % (Auto) 9.5 Eos % (Auto) 0.4 Baso % (Auto) 0.5 Lymph # (Auto) 1.5 [place] # (Auto) 1.6 H Eos # (Auto) 0.1 Baso # (Auto) 0.1 Abs Immat Gran (auto) 0.15 H Absolute Neuts (auto) 13.7 H Absolute Nucleated RBC 0.000 Nucleated RBC % (auto) 0.0 Smear Tech's Comments PT INR VBG pH VBG pCO2 VBG pO2 VBG HCO3 VBG O2 Saturation VBG Base Excess Sodium 135 Potassium 3.6 Chloride 101 Carbon Dioxide 23 Anion Gap 15 BUN 18 H Creatinine 1.55 H Estim Creat Clear Calc 58.1 Estimated GFR 46 Random Glucose 137 H Lactic Acid Lactic Acid F/U @ 2Hr Lactic Acid F/U @ 4Hr Calcium 7.9 L Phosphorus 3.3 Magnesium 1.7 Total Bilirubin 5.2 H AST 20 ALT 10 Alkaline Phosphatase 117 Ammonia Total Protein 5.5 L Albumin 2.4 L Lipase Blood Type Antibody Screen Crossmatch Airway Mallampati Class: II TM Dist: >3cm Neck ROM: Full Heart: RRR Lungs: CTA Assessment and Plan Assessment Anesthesia Assessment: Anesthesia Plan Discussed and Chart Reviewed Final Anesthetic Review Family History of Problems with Anesthesia: No History of Problems with Anesthesia: No NPO: Yes ASA Class: IV and Emergency Final Preanesthetic Review: No Changes in Pt Med Stat, Meds/Allgs Chart Reviewed, Consent Obtained/Reviewed and Anes Risks/Benef Reviewed Patient Risk: High Procedure Risk: Low Anesthetic Plan Anesthetic Plan: MAC: Disposition: Inp. Admit - ICU
[2024-02-24 10:29] LABS: INTERNATIONAL NORM RATIO 1.5 (0.9-1.1); Prothrombin Time 17.9 SEC (11.1-13.3)
--- NOTE | 2024-02-24 11:17 | W.PM.OPN ---
Operative Note Operative Note Date of Service: 02/24/24 Narrative: FLEXIBLE TRANSORAL UPPER GASTROINTESTINAL ENDOSCOPY Pre-op diagnosis: Cirrhosis with upper GI bleeding Post-op diagnosis: Severe erosive esophagitis, non-bleeding esophageal and gastric varices, Portal hypertensive gastropathy Endoscopist:? Abhilash Brito MD Anesthesia:?MAC UPPER ENDOSCOPY Consent: Indications for the procedure and potential complications of bleeding, perforation, reaction to medications and missed diagnosis were discussed with the patient and informed consent was obtained. Instrument: Olympus GIF H 190 mid size upper endoscope Monitoring: Vital signs and clinical assessment, continuous EKG monitoring, Pulse oximetry, Carbon Dioxide monitoring and blood pressure monitoring were done throughout the procedure. Procedure: The patient was placed in the left lateral decubitis position and pre-procedure medications were administered and a bite block was placed. The endoscope was inserted into the mouth and advanced under direct vision to the third part of duodenum. A careful inspection was made as the upper endoscope was withdrawn including a retroflexed examination of the proximal stomach; Findings and interventions are described below. Findings: Larynx: Normal Mucosal bleeding noted from the uvula during intubation and withdrawl of the endoscope Esophagus: GE junction at 36 cms, hiatal hernia 36 to 38 cms. Severe erosive esophagitis with yellow exudate involving the entire esophagus with a few bleeding spots with slow oozing. Two columns grade 1 esophageal varices which collapsed on insufflation Stomach: Friable gastric mucosa with mosaic pattern consistent with moderate portal hypertensive gastropathy. Nonbleeding gastric varices versus gastric folds and Grade 3 flap valve on retroflexed examination of the cardia. Duodenum: Congestive duodenopathy in the bulb and normal descending duodenum Intervention: None Impression and Post Procedure Diagnosis: Endoscopy Findings: Mucosal bleeding noted from the uvula during intubation and withdrawl of the endoscope ESOPHAGUS: Severe erosive esophagitis with yellow exudate involving the entire esophagus with a few bleeding spots with slow oozing - likely due to GERD with possible superimposed candidiasis. Two columns grade 1 esophageal varices which collapsed on insufflation STOMACH: Friable gastric mucosa with mosaic pattern consistent with moderate portal hypertensive gastropathy. Yellow bile and no significant blood noted in the stomach during EGD Plan: Continue Octreotide and IV PPI Lab evaluation for hemolysis Start a clear liquid diet and advance diet as tolerated PO Fluconazole for suspected esophageal candidiasis once pt is tolerating PO diet. Start on PO carvedilol and sucralfate once pt is tolerating PO diet Pt to FU with Dr Apple ([place] [facility] [place] Above findings were reviewed with the patient and his
--- NOTE | 2024-02-24 11:29 | PM.CCPN ---
Subjective Subjective Date of Service: 02/24/24 Interval History: 58-year-old gentleman with underlying history of alcohol abuse and resultant alcoholic cirrhosis, recent admission in December of 2023 for upper GI bleed from gastropathy and grade 1 varices presents today complaining of 2-3 week history of GI bleed symptomatic with dark stools and over the last 3 days with coffee-ground vomiting. On ER evaluation with with hemoglobin of 3.8 started on blood product support. Patient evaluated by gastroenterology service and is planned for upper endoscopy in the morning. Patient has been admitted to the the intensive care unit. Overnight with several episodes of tarry stools and 1 episode of coffee-ground emesis. Now status post EGD with no active bleeding identified. Critical Care Time (minutes): 45 Physical Exam Vital Signs: Vital Signs: Last Vital Signs Temp 97.8 F 02/24/24 08:00 Pulse 75 02/24/24 11:12 Resp 18 02/24/24 11:12 BP 117/50 L 02/24/24 11:12 Pulse Ox 90 L 02/24/24 11:12 O2 Del Method Room Air 02/24/24 11:12 BMI result Body Mass Index 38.2 Const: General: no acute distress, alert and awake Eyes: Sclerae: sclerae normal EOM: EOMs intact bilaterally Neck: Neck: Yes no lymphadenopathy, Yes trachea midline and Yes supple Resp: Effort & Inspection: normal respiratory effort and no respiratory distress Auscultation: clear to auscultation bilaterally Cardio: Rate: regular rate Rhythm: regular rhythm Heart sounds: no gallops, no murmurs and no rubs GI: Palpation (GI): Soft to palpation and Other GI palpation findings present ( Nontender) Auscultation: normal bowel sounds Extrem: General: Yes no pedal edema, No clubbing and No cyanosis Objective Data Labs 02/24/24 04:40 02/24/24 04:40 Labs: Laboratory Results - last 24 hr 02/23/24 02/23/24 02/23/24 13:49 13:50 13:51 WBC 31.5 H* RBC 1.36 L D Hgb 3.8 L* D Hct 12.7 L* D MCV 93.4 MCH 27.9 MCHC 29.9 L RDW 17.0 H Plt Count 313 D MPV 9.8 Immature Gran % (Auto) 2.1 H Neut % (Auto) 78.8 H Lymph % (Auto) 9.3 L [place] % (Auto) 9.6 Eos % (Auto) 0.0 Baso % (Auto) 0.2 Lymph # (Auto) 2.9 [place] # (Auto) 3.0 H Eos # (Auto) 0.0 Baso # (Auto) 0.1 Abs Immat Gran (auto) 0.67 H Absolute Neuts (auto) 24.8 H Absolute Nucleated RBC 0.020 H Nucleated RBC % (auto) 0.1 Smear Tech's Comments VERIFIED PT 22.2 H D INR 1.8 H VBG pH VBG pCO2 VBG pO2 VBG HCO3 VBG O2 Saturation VBG Base Excess Sodium 135 Potassium 2.9 L* Chloride 101 Carbon Dioxide 14 L Anion Gap 23 H BUN 11 Creatinine 1.47 H Estim Creat Clear Calc 61.2 Estimated GFR 49 Random Glucose 133 H Lactic Acid 14.1 H* Lactic Acid F/U @ 2Hr Lactic Acid F/U @ 4Hr Calcium 7.0 L Phosphorus 3.6 Magnesium 1.7 Total Bilirubin 1.9 H AST 17 ALT 6 Alkaline Phosphatase 142 H Ammonia 81 H Total Protein 4.8 L Albumin 1.4 L Lipase 16 Blood Type A Positive Antibody Screen NEGATIVE Crossmatch See Detail 02/23/24 02/23/24 02/23/24 13:54 16:37 19:02 WBC RBC Hgb Hct MCV MCH MCHC RDW Plt Count MPV Immature Gran % (Auto) Neut % (Auto) Lymph % (Auto) [place] % (Auto) Eos % (Auto) Baso % (Auto) Lymph # (Auto) [place] # (Auto) Eos # (Auto) Baso # (Auto) Abs Immat Gran (auto) Absolute Neuts (auto) Absolute Nucleated RBC Nucleated RBC % (auto) Smear Tech's Comments PT INR VBG pH 7.41 VBG pCO2 21 VBG pO2 69 VBG HCO3 13 L VBG O2 Saturation TNP VBG Base Excess -10.0 Sodium Potassium Chloride Carbon Dioxide Anion Gap BUN Creatinine Estim Creat Clear Calc Estimated GFR Random Glucose Lactic Acid Lactic Acid F/U @ 2Hr 12.7 H* Lactic Acid F/U @ 4Hr 10.4 H* Calcium Phosphorus Magnesium Total Bilirubin AST ALT Alkaline Phosphatase Ammonia Total Protein Albumin Lipase Blood Type Antibody Screen Crossmatch 05/08/0802/24/24 02/24/24 20:15 00:33 04:38 WBC 25.3 H 21.3 H RBC 2.16 L D 2.80 L D Hgb 6.3 L* D 8.3 L D Hct 19.0 L* D 24.5 L D MCV 88.0 D 87.5 MCH 29.2 29.6 MCHC 33.2 33.9 RDW 15.2 15.6 Plt Count 180 D 166 MPV 9.9 9.9 Immature Gran % (Auto) 1.2 H 0.8 H Neut % (Auto) 79.1 H 78.8 H Lymph % (Auto) 9.9 L 10.6 L [place] % (Auto) 9.6 9.1 Eos % (Auto) 0.0 0.2 Baso % (Auto) 0.2 0.5 Lymph # (Auto) 2.5 2.3 [place] # (Auto) 2.4 H 1.9 H Eos # (Auto) 0.0 0.0 Baso # (Auto) 0.1 0.1 Abs Immat Gran (auto) 0.31 H 0.16 H Absolute Neuts (auto) 20.0 H 16.8 H Absolute Nucleated RBC 0.000 0.020 H Nucleated RBC % (auto) 0.0 0.1 Smear Tech's Comments VERIFIED PT INR VBG pH 7.49 H 7.50 H VBG pCO2 28 31 VBG pO2 39 47 VBG HCO3 22 25 VBG O2 Saturation 74.0 84.0 VBG Base Excess -0.5 2.3 Sodium 136 135 Potassium 3.7 D 3.5 Chloride 102 102 Carbon Dioxide 17 L 21 L Anion Gap 21 H 16 BUN 15 16 Creatinine 1.52 H 1.56 H Estim Creat Clear Calc 59.2 57.7 Estimated GFR 47 46 Random Glucose 135 H 144 H Lactic Acid Lactic Acid F/U @ 2Hr Lactic Acid F/U @ 4Hr Calcium 7.3 L 7.6 L Phosphorus Magnesium Total Bilirubin AST ALT Alkaline Phosphatase Ammonia Total Protein Albumin Lipase Blood Type Antibody Screen Crossmatch 02/24/24 02/24/24 04:40 09:56 WBC 17.0 H RBC 2.48 L Hgb 7.5 L Hct 21.2 L MCV 85.5 MCH 30.2 MCHC 35.4 RDW 15.1 Plt Count 174 MPV 9.9 Immature Gran % (Auto) 0.9 H Neut % (Auto) 80.0 H Lymph % (Auto) 8.7 L [place] % (Auto) 9.5 Eos % (Auto) 0.4 Baso % (Auto) 0.5 Lymph # (Auto) 1.5 [place] # (Auto) 1.6 H Eos # (Auto) 0.1 Baso # (Auto) 0.1 Abs Immat Gran (auto) 0.15 H Absolute Neuts (auto) 13.7 H Absolute Nucleated RBC 0.000 Nucleated RBC % (auto) 0.0 Smear Tech's Comments PT 17.9 H INR 1.5 H VBG pH VBG pCO2 VBG pO2 VBG HCO3 VBG O2 Saturation VBG Base Excess Sodium 135 Potassium 3.6 Chloride 101 Carbon Dioxide 23 Anion Gap 15 BUN 18 H Creatinine 1.55 H Estim Creat Clear Calc 58.1 Estimated GFR 46 Random Glucose 137 H Lactic Acid Lactic Acid F/U @ 2Hr Lactic Acid F/U @ 4Hr Calcium 7.9 L Phosphorus 3.3 Magnesium 1.7 Total Bilirubin 5.2 H AST 20 ALT 10 Alkaline Phosphatase 117 Ammonia Total Protein 5.5 L Albumin 2.4 L Lipase Blood Type Antibody Screen Crossmatch Progress Note: A&P Assessment and plan (1) Erosive esophagitis: Status: Acute (2) Acute GI bleeding: Status: Acute (3) NATHANIEL (acute kidney injury): Status: Acute (4) Alcoholic cirrhosis of liver with ascites: Status: Acute (5) Portal hypertensive gastropathy: Status: Acute Plan Assessment: 58-year-old gentleman with underlying history of alcoholic cirrhosis, prior upper GI bleed known grade 1 esophageal varices and erosive gastropathy admitted with acute on chronic upper GI bleed Plan: Neuro: No acute issues. Cardiac: Continue to titrate off pressors as tolerated. No evidence of septic shock, pressor requirements are secondary to acute blood loss anemia.. Pulmonary: No acute issues. Renal: Acute renal failure. Non oliguric. Continue to monitor renal indices and urine output. Endo: No acute issues. GI: Acute on chronic upper GI bleed with erosive gastropathy and at least grade 1 varices. Gastroenterology service care appreciated. Status post EGD with no acute bleeding identified. Continue PPI. Carafate before discharge. Fluconazole for erosive esophagitis. Underlying alcoholic cirrhosis. Carvedilol when off pressors. ID: No acute issues Heme/Onc: Acute to subacute blood-loss anemia secondary to upper GI bleed. Coagulopathy likely secondary to underlying alcoholic cirrhosis, continue with vitamin K. Hemoglobin level is stabilizing. Continue to monitor hemoglobin level. Psych: No acute issues. Miscellaneous: No acute issues. Prophylaxis: Pneumatic compression Diet: Clear liquids Critical care time spent: 60 minutes Quality Stroke Does the patient have a stroke diagnosis?: No VTE Prior VTE?: No VTE Risk Level:: Medical - moderate - high VTE Device Contraindication: N/A - Device Ordered VTE Drug Contraindication: Treatment Not Indicated
[2024-02-24] MEDS: Fluconazole in NaCl,Iso-Osm 400 MG/200 ML PIGGYBACK 100 MG IV (11:59)
--- NOTE | 2024-02-24 12:06 | MHC.CM.PN ---
Addendum entered by Monica Pathak 02/24/24 12:11: [facility] is not a [facility] but a health service company contracted by payors to assist members with chronic conditions. Pt states he has all contact numbers and will call site on Monday to arrange for a home visit. Original Note: Met w/pt and spouse Catalino to discuss d/c planning needs: pt uses a walker and states is active w/[facility] for any service needs he may have. Pt anxious and requesting to return to home ean. Spouse will transport. HCP copy requested. Will refer pt back to [facility]: No additional service needs identified.
[2024-02-24] MEDS: Phytonadione (Vit K1) 10 MG in 0.9 % Sodium Chloride 50 ML 51 MG IV (13:28)
[2024-02-24] MEDS: fentaNYL citrate/PF 100 MCG/2 ML VIAL 50 MCG IVPUSH (13:56)
[2024-02-24] MEDS: HYDROmorphone HCl 0.5 MG/0.5 ML SYRINGE IVPUSH (14:07)
[2024-02-24] MEDS: Norepinephrine Bitartrate/D5W 8 MG/250 ML PLAST..BAG 9.56 MG IV (19:26)
[2024-02-24 19:38] LABS: MANUAL DIFF FLAG NO
[2024-02-24 19:42] LABS: Basophils Absolute Auto 0.1 X10*3/uL (0.0-0.2); Basophils Percent Auto 0.6 % (0-2); Eosinophils Absolute Auto 0.2 X10*3/uL (0.0-0.4); Hemoglobin 7.1 g/dl (14.0-18.0); Imm Gran Abs Auto 0.14 X10*3/uL (0.00-0.03); Imm Gran Pct Auto 1.1 % (0.0-0.4); Lymphocytes Absolute Auto 1.8 X10*3/uL (1.2-4.9); Lymphocytes Percent Auto 14.7 % (20-40); Mean Corpuscular HGB Conc 34.3 g/dl (31.0-36.0); Mean Corpuscular Hemoglobin 29.8 pg (27.0-33.0); Mean Platelet Volume 10.2 fL (9.4-12.4); Monocytes Absolute Auto 1.3 X10*3/uL (0.1-1.2); Monocytes Percent Auto 10.3 % (2-11); NRBC Pct Auto 0.2 /100WBC (0.0-0.2); Neutrophils Absolute Auto 8.7 x10*3/uL (2.0-8.3); Neutrophils Percent Auto 71.3 % (45-73); Platelet Count 142 X10*3/uL (160-400); Red Blood Count 2.38 X10*6/uL (4.60-5.80); Red Cell Distribution Width 15.9 % (11.0-16.0); White Blood Count 12.2 X10*3/uL (4.8-10.8)
[2024-02-24 19:48] LABS: Hematocrit 20.7 % (42.0-52.0)
[2024-02-24 20:01] LABS: Anion Gap 13 (12-20); Blood Urea Nitrogen 19 mg/dL (9-16); Carbon Dioxide 24 mmol/L (22-29); Chloride 103 mmol/L (96-108); Creatinine Clr Calc Pharmacy 69.6; Estimated Glomerular Filt Rate 55; Glucose Random 124 mg/dL (60-115); Magnesium 1.8 mg/dL (1.6-2.6); Phosphorus 2.3 mg/dL (2.7-4.5); Potassium 3.1 mmol/L (3.3-5.1); Sodium 137 mmol/L (135-145)
[2024-02-24] MEDS: Furosemide 40 MG/4 ML VIAL IVPUSH (20:28)
[2024-02-24] MEDS: ondansetron HCL 4 MG/2 ML VIAL IVPUSH (20:43)
[2024-02-24] MEDS: Potassium Phosphate/NS 15 MMOL/250 ML PLAST..BAG 62.5 MMOL IV (20:48)
[2024-02-25] VITALS (39 sets, daily range): BP systolic 97–141; BP diastolic 44–84; PULSE 61–79; RESP 11–25; TEMP 35.7–36.7; O2SAT 90–99; BMI 41.3
[2024-02-25] MEDS: Albuterol/Iprat 2.5/0.5MG 3 ML AMPUL.NEB INHALE (00:07)
[2024-02-25] MEDS: LORazepam 2 MG/ML VIAL 1 MG IVPUSH ×2 (00:29→23:20)
[2024-02-25] MEDS: Albumin Human 25 % 100 ML IV ×3 (02:47→13:13)
[2024-02-25 04:47] LABS: VBG Base Excess 4.6 mmol/L; VBG HCO3 28 mmol/L (22-26); VBG pCO2 41 mmHg; VBG pH 7.45 (7.32-7.43); VBG pO2 30 mmHg
[2024-02-25 04:52] LABS: MANUAL DIFF FLAG NO
[2024-02-25 04:53] LABS: Basophils Percent Auto 0.3 % (0-2); Eosinophils Absolute Auto 0.3 X10*3/uL (0.0-0.4); Eosinophils Percent Auto 2.9 % (0-4); Hematocrit 21.4 % (42.0-52.0); Hemoglobin 7.1 g/dl (14.0-18.0); Lymphocytes Absolute Auto 1.3 X10*3/uL (1.2-4.9); Lymphocytes Percent Auto 13.8 % (20-40); Mean Corpuscular HGB Conc 33.2 g/dl (31.0-36.0); Mean Corpuscular Hemoglobin 29.5 pg (27.0-33.0); Mean Corpuscular Volume 88.8 fL (80.0-98.0); Mean Platelet Volume 10.1 fL (9.4-12.4); Monocytes Absolute Auto 0.9 X10*3/uL (0.1-1.2); Monocytes Percent Auto 9.6 % (2-11); Neutrophils Percent Auto 72.4 % (45-73); Platelet Count 131 X10*3/uL (160-400); Red Blood Count 2.41 X10*6/uL (4.60-5.80); Red Cell Distribution Width 15.9 % (11.0-16.0); White Blood Count 9.6 X10*3/uL (4.8-10.8)
[2024-02-25 05:14] LABS: Venous Blood Gas Refer to POC result
[2024-02-25 05:21] LABS: Alanine Aminotransferase 8 U/L (0-40); Albumin Level 3.2 g/dL (3.5-5.0); Alkaline Phosphatase 96 U/L (39-117); Anion Gap 15 (12-20); Aspartate Amino Transferase 20 U/L (5-37); Bilirubin Total 4.8 mg/dL (0.0-1.0); Blood Urea Nitrogen 18 mg/dL (9-16); Calcium 7.9 mg/dL (8.4-10.2); Carbon Dioxide 23 mmol/L (22-29); Chloride 102 mmol/L (96-108); Creatinine Clr Calc Pharmacy 70.1; Estimated Glomerular Filt Rate 56; Glucose Random 127 mg/dL (60-115); Magnesium 1.8 mg/dL (1.6-2.6); Phosphorus 2.6 mg/dL (2.7-4.5); Potassium 3.1 mmol/L (3.3-5.1); Sodium 137 mmol/L (135-145)
[2024-02-25] MEDS: Pantoprazole Sodium 40 MG/10 ML VIAL IVPUSH ×2 (05:42→16:20)
[2024-02-25] MEDS: Vasopressin 20 UNIT/100 ML INFUS..BTL 12 UNIT IVCONT ×3 (05:43→21:16)
[2024-02-25] MEDS: Calcium Gluconate/NaCl,Iso-Osm 1 GM/50 ML PLAST..BAG IV (07:56)
[2024-02-25] MEDS: Potassium Phosphate/NS 15 MMOL/250 ML PLAST..BAG 62.5 MMOL IV ×2 (08:17→21:12)
[2024-02-25] MEDS: Fluconazole 100 MG TABLET PO (08:31)
--- NOTE | 2024-02-25 10:49 | P.PNCC_ITS ---
Subjective Subjective Date of Service: 02/25/24 Interval History: Continues to need to vasopressor support for shock including Levophed and vasopressin Slightly drowsy, slightly confused 1 tarry bowel movement last night Hemoglobin remained stable since yesterday Critical Care Time (minutes): 38 Physical Exam 2 Vital Signs: Vital Signs: Last Vital Signs Temp 96.3 F L 02/25/24 06:00 Pulse 69 02/25/24 09:20 Resp 23 H 02/25/24 09:00 BP 99/45 L 02/25/24 09:20 Pulse Ox 90 L 02/25/24 09:00 O2 Del Method Nasal Cannula 02/25/24 09:00 O2 Flow Rate 4 02/25/24 09:00 BMI result Body Mass Index 41.3 Const: General: awake, confusion and lethargic Orientation/consciousness: c onfusion and lethargic HEENT: Head: Yes normal to inspection, Yes No palpable skull fracture present and Yes normocephalic Eyes: General: appearance normal, both eyes and all related structures V isual Calvert: normal visual calvert by confrontation Alignment and Position: a lignment normal and position normal Chest: Chest palpation & inspection: normal inspection of the chest and normal palpation of entire chest wall Resp: Effort & Inspection: normal respiratory effort and prolonged expiratory phase Auscultation: clear to auscultation bilaterally Cardio: Rate: regular rate Rhythm: regular rhythm Heart sounds: S1 normal heart sound present and S2 normal heart sound present GI: Other: Abdominal wall slightly rigid, no tenderness, no organomegaly : General: Yes Bimanual renal exam normal bilaterally, Yes bladder normal to inspection and Yes bladder normal to palpation Skin: General skin exam: no rashes or lesions noted Neuro: Other: Slight confusion, no significant asterixis General: confusion Objective Data Labs 02/25/24 04:38 02/25/24 04:38 Labs: Laboratory Results - last 24 hr 02/23/24 02/24/24 02/24/24 13:51 14:22 19:18 WBC 12.2 H RBC 2.38 L Hgb 7.1 L Hct 20.7 L* MCV 87.0 MCH 29.8 MCHC 34.3 RDW 15.9 Plt Count 142 L MPV 10.2 Immature Gran % (Auto) 1.1 H Neut % (Auto) 71.3 Lymph % (Auto) 14.7 L [place] % (Auto) 10.3 Eos % (Auto) 2.0 Baso % (Auto) 0.6 Lymph # (Auto) 1.8 [place] # (Auto) 1.3 H Eos # (Auto) 0.2 Baso # (Auto) 0.1 Abs Immat Gran (auto) 0.14 H Absolute Neuts (auto) 8.7 H Absolute Nucleated RBC 0.020 H Nucleated RBC % (auto) 0.2 VBG pH VBG pCO2 VBG pO2 VBG HCO3 VBG O2 Saturation VBG Base Excess Sodium 137 Potassium 3.1 L Chloride 103 Carbon Dioxide 24 Anion Gap 13 BUN 19 H Creatinine 1.33 Estim Creat Clear Calc 69.6 Estimated GFR 55 Random Glucose 124 H Calcium 8.0 L Phosphorus 2.3 L Magnesium 1.8 Total Bilirubin AST ALT Alkaline Phosphatase Troponin I High Sens 3.0 Total Protein Albumin Blood Type A Positive Antibody Screen NEGATIVE Crossmatch See Detail 02/25/24 02/25/24 04:38 04:39 WBC 9.6 RBC 2.41 L Hgb 7.1 L Hct 21.4 L MCV 88.8 MCH 29.5 MCHC 33.2 RDW 15.9 Plt Count 131 L MPV 10.1 Immature Gran % (Auto) 1.0 H Neut % (Auto) 72.4 Lymph % (Auto) 13.8 L [place] % (Auto) 9.6 Eos % (Auto) 2.9 Baso % (Auto) 0.3 Lymph # (Auto) 1.3 [place] # (Auto) 0.9 Eos # (Auto) 0.3 Baso # (Auto) 0.0 Abs Immat Gran (auto) 0.10 H Absolute Neuts (auto) 7.0 Absolute Nucleated RBC 0.000 Nucleated RBC % (auto) 0.0 VBG pH 7.45 H VBG pCO2 41 VBG pO2 30 VBG HCO3 28 H VBG O2 Saturation 52.0 VBG Base Excess 4.6 Sodium 137 Potassium 3.1 L Chloride 102 Carbon Dioxide 23 Anion Gap 15 BUN 18 H Creatinine 1.32 Estim Creat Clear Calc 70.1 Estimated GFR 56 Random Glucose 127 H Calcium 7.9 L Phosphorus 2.6 L Magnesium 1.8 Total Bilirubin 4.8 H AST 20 ALT 8 Alkaline Phosphatase 96 Troponin I High Sens Total Protein 6.0 L Albumin 3.2 L Blood Type Antibody Screen Crossmatch Progress Note: A&P Assessment and plan (1) GI bleed: Status: Acute (2) Encephalopathy: Status: Acute (3) Septic shock: Status: Acute (4) Alcoholic cirrhosis: Status: Acute Plan 58-year-old male with past medical history of alcohol-related cirrhosis, portal hypertension, gastropathy, chronic anemia who had presented with hemoglobin of about 3.5g/dl 2 months ago presents to the ED with severe anemia, hypotension and shock needing multiple vasopressor support. Neuro: Acute encephalopathy possibly secondary to hepatic encephalopathy Lactulose and rifaximin to have at least 4 bowel movements every day Cardiac: Septic shock: Unknown source, needing Levophed and vasopressin. 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 When the patient is off pressors Needs nonselective beta-vera Given the findings of erosive esophagitis patient is started on fluconazole for possible fungal esophagitis Acute blood loss anemia: Patient has chronic bleeding with acute decompensation Presented with a hemoglobin of 3.8, received 4 units of PRBC and vitamin K Hemoglobin remained stable overnight, 7.1 this morning Coagulopathy: Secondary to underlying decompensated liver cirrhosis Received vitamin K INR 1.5 this morning Infectious disease: We will send pancultures, if the patient has ascites we will do ascitic fluid tap We will start on empiric levofloxacin given shock needing multiple vasopressors Renal: Acute kidney injury: Possibly secondary to blood loss anemia and underlying cirrhotic physiology Creatinine 1.32 this morning We will closely monitor Endocrine: Blood sugars under control Prophylaxis: SCD, pantoprazole Quality Stroke Does the patient have a stroke diagnosis?: No VTE Prior VTE?: No VTE Risk Level:: Medical - moderate - high VTE Device Contraindication: N/A - Device Ordered VTE Drug Contraindication: Treatment Not Indicated
[2024-02-25] MEDS: levoFLOXacin/D5W 750 MG/150 ML PIGGYBACK 100 MG IV (11:55)
[2024-02-25] MEDS: Albumin Human 25 % 50 ML 100 ML IV (11:58)
[2024-02-25] MEDS: Acetaminophen 325 MG TABLET 650 MG PO (11:58)
[2024-02-25] MEDS: LORazepam 2 MG/ML VIAL 0.5 MG IVPUSH (12:13)
[2024-02-25] MEDS: 0.9 % Sodium Chloride 500 ML IV (12:16)
--- NOTE | 2024-02-25 15:27 | HO.POSTANES ---
Post Anesthesia Evaluation Post Anesthesia Evaluation Date of Service: 02/25/24 Vital Signs: Vital Signs Temp Pulse Resp BP Pulse Ox O2 Del Method O2 Flow Rate 02/25/24 15:00 64 15 116/52 L 95 Nasal Cannula 6 02/25/24 14:00 66 16 108/49 L 96 Nasal Cannula 6 02/25/24 13:10 75 115/46 L 02/25/24 13:10 75 115/46 L 02/25/24 13:00 73 15 112/55 L 99 Nasal Cannula 6 02/25/24 12:18 76 20 02/25/24 12:03 66 126/62 02/25/24 11:44 65 23 H 123/84 93 Nasal Cannula 4 02/25/24 11:00 69 21 H 108/59 L 92 Nasal Cannula 4 02/25/24 09:20 69 99/45 L 02/25/24 09:03 63 116/45 L 02/25/24 09:00 75 23 H 116/45 L 90 L Nasal Cannula 4 02/25/24 08:21 63 137/61 02/25/24 08:00 67 18 137/61 97 Nasal Cannula 4 02/25/24 07:00 62 20 116/53 L 95 Nasal Cannula 3 02/25/24 06:00 96.3 F L 69 18 117/56 L 92 Nasal Cannula 3 02/25/24 05:43 65 110/52 L 02/25/24 05:43 65 110/52 L 02/25/24 05:00 96.2 F L 61 12 113/54 L 96 Nasal Cannula 3 02/25/24 04:02 66 120/56 L 02/25/24 04:00 96.7 F L 69 12 120/56 L 96 Nasal Cannula 3 Anesthesia: Monitored Mental Status: Awake (confused) Pain Control: Satisfactory Nausea/Vomiting: None Hydration: Adequate Anesthesia-Related Issues: No Anes. Related Issues
[2024-02-25 20:10] LABS: Basophils Percent Auto 0.4 % (0-2); Eosinophils Absolute Auto 0.1 X10*3/uL (0.0-0.4); Imm Gran Abs Auto 0.07 X10*3/uL (0.00-0.03); Lymphocytes Absolute Auto 0.9 X10*3/uL (1.2-4.9); Lymphocytes Percent Auto 12.3 % (20-40); MANUAL DIFF FLAG SCAN; Mean Corpuscular HGB Conc 33.3 g/dl (31.0-36.0); Mean Corpuscular Hemoglobin 29.6 pg (27.0-33.0); Mean Corpuscular Volume 88.8 fL (80.0-98.0); Mean Platelet Volume 10.3 fL (9.4-12.4); Monocytes Absolute Auto 0.6 X10*3/uL (0.1-1.2); Monocytes Percent Auto 8.5 % (2-11); Neutrophils Absolute Auto 5.3 x10*3/uL (2.0-8.3); Neutrophils Percent Auto 75.8 % (45-73); PLT CLUMP 1; Red Blood Count 2.33 X10*6/uL (4.60-5.80); Red Cell Distribution Width 16.1 % (11.0-16.0); SCAN SMEAR FLAG 1
[2024-02-25 20:27] LABS: Anion Gap 17 (12-20); Blood Urea Nitrogen 17 mg/dL (9-16); Calcium 8.2 mg/dL (8.4-10.2); Carbon Dioxide 23 mmol/L (22-29); Chloride 102 mmol/L (96-108); Creatinine Clr Calc Pharmacy 85.3; Estimated Glomerular Filt Rate > 60; Glucose Random 120 mg/dL (60-115); Magnesium 1.8 mg/dL (1.6-2.6); Phosphorus 2.2 mg/dL (2.7-4.5); Potassium 3.1 mmol/L (3.3-5.1); Sodium 139 mmol/L (135-145)
[2024-02-25 20:41] LABS: Hemoglobin 6.9 g/dl (14.0-18.0)
[2024-02-25 20:43] LABS: Hematocrit 20.7 % (42.0-52.0); Platelet Count 95 X10*3/uL (160-400); White Blood Count 7.1 X10*3/uL (4.8-10.8)
[2024-02-25 20:44] LABS: SLIDE REVIEW VERIFIED
[2024-02-26] VITALS (22 sets, daily range): BP systolic 101–136; BP diastolic 44–74; PULSE 58–77; RESP 10–20; TEMP 36.2–36.6; O2SAT 93–100; BMI 41.4
[2024-02-26 05:32] LABS: VBG Base Excess 5.3 mmol/L; VBG HCO3 29 mmol/L (22-26); VBG pCO2 38 mmHg; VBG pH 7.48 (7.32-7.43); VBG pO2 53 mmHg
[2024-02-26 05:33] LABS: Venous Blood Gas Refer to POC result
[2024-02-26 05:46] LABS: MANUAL DIFF FLAG NO
[2024-02-26 05:49] LABS: Basophils Absolute Auto 0.1 X10*3/uL (0.0-0.2); Basophils Percent Auto 0.6 % (0-2); Eosinophils Absolute Auto 0.2 X10*3/uL (0.0-0.4); Eosinophils Percent Auto 2.4 % (0-4); Hematocrit 23.6 % (42.0-52.0); Hemoglobin 7.7 g/dl (14.0-18.0); Imm Gran Abs Auto 0.09 X10*3/uL (0.00-0.03); Imm Gran Pct Auto 1.2 % (0.0-0.4); Lymphocytes Absolute Auto 1.1 X10*3/uL (1.2-4.9); Lymphocytes Percent Auto 13.6 % (20-40); Mean Corpuscular HGB Conc 32.6 g/dl (31.0-36.0); Mean Corpuscular Hemoglobin 29.6 pg (27.0-33.0); Mean Corpuscular Volume 90.8 fL (80.0-98.0); Monocytes Absolute Auto 0.9 X10*3/uL (0.1-1.2); Neutrophils Absolute Auto 5.6 x10*3/uL (2.0-8.3); Neutrophils Percent Auto 71.2 % (45-73); Platelet Count 112 X10*3/uL (160-400); Red Cell Distribution Width 15.9 % (11.0-16.0); White Blood Count 7.8 X10*3/uL (4.8-10.8)
[2024-02-26] MEDS: Pantoprazole Sodium 40 MG/10 ML VIAL IVPUSH ×2 (06:03→15:49)
[2024-02-26 06:08] LABS: Alanine Aminotransferase 8 U/L (0-40); Albumin Level 3.4 g/dL (3.5-5.0); Alkaline Phosphatase 93 U/L (39-117); Anion Gap 17 (12-20); Aspartate Amino Transferase 17 U/L (5-37); Bilirubin Total 5.1 mg/dL (0.0-1.0); Blood Urea Nitrogen 16 mg/dL (9-16); Calcium 8.2 mg/dL (8.4-10.2); Carbon Dioxide 24 mmol/L (22-29); Chloride 103 mmol/L (96-108); Creatinine Clr Calc Pharmacy 93.6; Estimated Glomerular Filt Rate > 60; Glucose Random 104 mg/dL (60-115); Magnesium 1.8 mg/dL (1.6-2.6); Phosphorus 2.2 mg/dL (2.7-4.5); Potassium 2.9 mmol/L (3.3-5.1); Sodium 141 mmol/L (135-145); Total Protein 6.1 g/dL (6.5-8.0)
[2024-02-26] MEDS: Potassium Chloride/H20 10 MEQ/100 ML PIGGYBACK 100 MEQ IV ×4 (07:41→10:49)
[2024-02-26] MEDS: Potassium Phosphate/NS 15 MMOL/250 ML PLAST..BAG 62.5 MMOL IV (07:43)
[2024-02-26] MEDS: Fluconazole 100 MG TABLET PO (08:41)
--- NOTE | 2024-02-26 10:52 | P.CDIM_ITS ---
PROVIDER RESPONSE TEXT: To clarify, the appropriate diagnosis supported by the clinical indicators: Metabolic: Metabolic encephalopathy QUERY TEXT: PHYSICIAN'S DOCUMENTATION REQUEST Date of Query: 02/26/2024 08:58 AM EDT Patient Name: Leandro Rico Admit Date: 02/23/2024 Dear Chapincito Arcos MD, A review of the medical record indicates additional documentation may be needed. Please review below and update the documentation accordingly. Clinical Indicators: ICU progress notes dated 02/24 - Encephalopathy possibly 2nd to hepatic encephalopathy. Confused, lethargic, slightly drowsy Shock, acute blood loss anemia, ETOH abuse, electrolyte abnormality Based on the above, please further specify, in the Progress Notes, further specifics to the noted enc ephalopathy: Metabolic possible, probable, suspected Septic possible, probable, suspected Toxic Toxic metabolic Alcoholic Other (explain) Clinically unable to determine (explain) Thank you, Shabana Camejo, CCS, CDIS Use of terms such as suspected, likely, concern for, or probable (associated with a specific diagnosi s that is being evaluated, monitored, or treated as if it exists) are acceptable and can be coded in the inpatient se tting, when documented at the time of discharge. Please use your independent medical judgment in providing your response. THIS QUERY IS PART OF THE PERMANENT MEDICAL RECORD
--- NOTE | 2024-02-26 11:44 | PC.NURSE ---
Pt being transferrd to Med Surg room 346. Report given to PRITI Gomez. Per Dr. Arcos Barber catheter to remain IN PLACE as it was placed by urology.
[2024-02-26] MEDS: levoFLOXacin/D5W 750 MG/150 ML PIGGYBACK 100 MG IV (12:27)
--- NOTE | 2024-02-26 12:35 | PC.NURSE ---
Patient arrived to unit at 1150 in hospital bed with transporter. IV medications infusing per MAR. Vital signs taken- WNL. Barber in place- draining clear yellow urine. Bed in low position, patient and oriented to room, and physical assessment performed. No signs or symptoms of distress present. All patient and family questions answered. Bed alarm on, sequentials in place, bed in lowest position, and call andres within reach.
--- NOTE | 2024-02-26 13:27 | PC.NURSE ---
Addendum entered by Jason Ferrari RN 02/26/24 18:39: Patient's first void post indwelling urinary catheter removal at 1450 for 150mL of clear yellow urine in urinal with mild amount of incontinence. Per-care provided. PVR of 49mL. Patient voided twice more for 150mL with PVR <20mL. No complaints with voiding. Original Note: Barber removed at 1320. Patient tolerated well. Device intact. Patient due to void today by 1920. Urinal placed at bedside. Alesha-care provided.
[2024-02-26] MEDS: LORazepam 2 MG/ML VIAL 1 MG IVPUSH ×2 (14:27→22:16)
[2024-02-26] MEDS: Propranolol HCL 10 MG TABLET PO ×2 (14:27→22:17)
--- NOTE | 2024-02-26 15:04 | P.PNCC_ITS ---
Subjective Subjective Date of Service: 02/26/24 Interval History: No new complaints, doing well. No bowel movements overnight, no vomiting Remained off pressors since last night. Levophed tapered off at 18:00, vasopressin tapered off by 22:00 last night Critical Care Time (minutes): 25 Physical Exam 2 Vital Signs: Vital Signs: Last Vital Signs Temp 97.5 F 02/26/24 14:14 Pulse 77 02/26/24 14:27 Resp 19 02/26/24 14:14 BP 136/74 02/26/24 14:27 Pulse Ox 96 02/26/24 14:14 O2 Del Method Nasal Cannula 02/26/24 14:14 O2 Flow Rate 4 02/26/24 14:14 BMI result Body Mass Index 41.4 Const: General: ill appearing and tired appearing Eyes: General: appearance normal, both eyes and all related structures V isual Calvert: normal visual calvert by confrontation Alignment and Position: a lignment normal and position normal Chest: Chest palpation & inspection: normal inspection of the chest and normal palpation of entire chest wall Resp: Effort & Inspection: normal respiratory effort Auscultation: clear to auscultation bilaterally Percussion: percussion normal Cardio: Jugular venous distension: no JVD Rate: regular rate Rhythm: r egular rhythm Heart sounds: S1 normal heart sound present and S2 normal heart sound present GI: Inspection: Yes normal to inspection and Yes abdominal wall ecchymosis : General: Yes Bimanual renal exam normal bilaterally, Yes bladder normal to inspection and Yes bladder normal to palpation Skin: General skin exam: no rashes or lesions noted Neuro: Other: Mentation better this morning, no focal deficits Objective Data Labs 02/26/24 05:20 02/26/24 05:20 Labs: Laboratory Results - last 24 hr 02/23/24 02/25/24 02/26/24 13:51 19:52 05:20 WBC 7.1 7.8 RBC 2.33 L 2.60 L Hgb 6.9 L* 7.7 L Hct 20.7 L* 23.6 L MCV 88.8 90.8 MCH 29.6 29.6 MCHC 33.3 32.6 RDW 16.1 H 15.9 Plt Count 95 L D 112 L MPV 10.3 10.0 Immature Gran % (Auto) 1.0 H 1.2 H Neut % (Auto) 75.8 H 71.2 Lymph % (Auto) 12.3 L 13.6 L [place] % (Auto) 8.5 11.0 Eos % (Auto) 2.0 2.4 Baso % (Auto) 0.4 0.6 Lymph # (Auto) 0.9 L 1.1 L [place] # (Auto) 0.6 0.9 Eos # (Auto) 0.1 0.2 Baso # (Auto) 0.0 0.1 Abs Immat Gran (auto) 0.07 H 0.09 H Absolute Neuts (auto) 5.3 5.6 Absolute Nucleated RBC 0.000 0.000 Nucleated RBC % (auto) 0.0 0.0 Smear Tech's Comments VERIFIED VBG pH VBG pCO2 VBG pO2 VBG HCO3 VBG O2 Saturation VBG Base Excess Sodium 139 141 Potassium 3.1 L 2.9 L* Chloride 102 103 Carbon Dioxide 23 24 Anion Gap 17 17 BUN 17 H 16 Creatinine 1.13 1.03 Estim Creat Clear Calc 85.3 93.6 Estimated GFR > 60 > 60 Random Glucose 120 H 104 Calcium 8.2 L 8.2 L Phosphorus 2.2 L 2.2 L Magnesium 1.8 1.8 Total Bilirubin 5.1 H AST 17 ALT 8 Alkaline Phosphatase 93 Total Protein 6.1 L Albumin 3.4 L Blood Type A Positive Antibody Screen NEGATIVE Crossmatch See Detail 02/26/24 05:23 WBC RBC Hgb Hct MCV MCH MCHC RDW Plt Count MPV Immature Gran % (Auto) Neut % (Auto) Lymph % (Auto) [place] % (Auto) Eos % (Auto) Baso % (Auto) Lymph # (Auto) [place] # (Auto) Eos # (Auto) Baso # (Auto) Abs Immat Gran (auto) Absolute Neuts (auto) Absolute Nucleated RBC Nucleated RBC % (auto) Smear Tech's Comments VBG pH 7.48 H VBG pCO2 38 VBG pO2 53 VBG HCO3 29 H VBG O2 Saturation 88.0 VBG Base Excess 5.3 Sodium Potassium Chloride Carbon Dioxide Anion Gap BUN Creatinine Estim Creat Clear Calc Estimated GFR Random Glucose Calcium Phosphorus Magnesium Total Bilirubin AST ALT Alkaline Phosphatase Total Protein Albumin Blood Type Antibody Screen Crossmatch Microbiology Microbiology Results: Microbiology 02/25/24 11:53 Blood - Venous Blood Culture - Preliminary No growth after 24 hours. 02/25/24 11:48 Blood - Venous Blood Culture - Preliminary No growth after 24 hours. Progress Note: A&P Assessment and plan (1) Bladder neck obstruction: Status: Acute (2) History of prostate cancer: Status: Acute (3) ETOH abuse: Status: Acute (4) Acidosis, lactic: Status: Acute (5) Esophageal varices: Status: Acute Plan Plan 58-year-old male with past medical history of alcohol-related cirrhosis, portal hypertension, gastropathy, chronic anemia who had presented with hemoglobin of about 3.5g/dl 2 months ago presents to the ED with severe anemia, hypotension and shock needing multiple vasopressor support. Bedside echo showed collapsing IVC, small RV, normal LV function upon questioning patient said he has been throwing up for several days and has not had enough feeds for past several days. Patient was treated as a hypovolemic shock with albumin and normal saline infusion with which his vasopressors were titrated off and his blood pressure remained stable. Neuro: Mentation improved this morning Cardiac: Hypovolemic shock: Bedside echo showed collapsing IVC is, small RV shock improved with fluid resuscitation with albumin and normal saline. Levophed was tapered off by 18:00 yesterday, vasopressin tapered off by 22:00 yesterday. Respiratory: Breathing stable GI: Decompensated liver cirrhosis: Patient has liver cirrhosis with portal hypertension and hepatic encephalopathy Upper GI endoscopy showed erosive esophagitis, grade 1 esophageal varices and nonbleeding AVM in the duodenum; needs to follow up with his GI doctor in [facility] for further therapeutic options. Need to restart on nonselective beta-vera for portal hypertension Given the findings of erosive esophagitis patient is started on fluconazole for possible fungal esophagitis Acute blood loss anemia: Patient has chronic bleeding with acute decompensation Presented with a hemoglobin of 3.8, received 4 units of PRBC and vitamin K Hemoglobin remained stable overnight Coagulopathy: Secondary to underlying decompensated liver cirrhosis Received vitamin K INR 1.5 Infectious disease: On empiric levofloxacin which we can discontinue if the cultures remain negative Renal: Acute kidney injury: Improving Possibly secondary to blood loss anemia and underlying cirrhotic physiology Creatinine down to 1.03 this morning Endocrine: Blood sugars under control Prophylaxis: SCD, pantoprazole Quality Stroke Does the patient have a stroke diagnosis?: No VTE Prior VTE?: No VTE Risk Level:: Medical - moderate - high VTE Device Contraindication: N/A - Device Ordered VTE Drug Contraindication: Treatment Not Indicated
--- NOTE | 2024-02-26 15:14 | HO.WOUND ---
Wound Consult: Initial 58yr old? Male admitted to [facility] [place] on 02/23/24 - See progress notes and H&P for detailed history.? Wound consult placed for MASD (Moisture Associated Skin Damage ).? Patient agreeable to assessment and photo documentation.? Patient reports the wound to his bottom is from his sedentary lifestyle at home - he denies incontinence however is soaked with urine at the time of my assessment. Patient reports he has not been moving much since he is so anxious with his respiratory status. He reports the littlest movement makes him SOB and then he has a panic attack. Patient was given anti anxiety med that was due and was walked through the steps we needed to do in order to get him cleaned and repositioned. He was in agreement and did well over all. Note there were several staff members at the bedside to make the clean and reposition quick as possible. He was off loaded with pillows. Left Heel Etiology: Stage 1 Pressure Injury ??Present on Admission Wound Bed: red pink nonblanchable intact tissue Drainage / Odor: None Edges: ? attached Alesha wound: ?Likely intact No Induration, Fluctuance or Warmth noted Pain: denies Goals of Treatment: ? Off Load pressure with pillows and foam dressings to both heels *Right heel no pressure injury noted but pink tissue noted - preventative measures ordered. Buttocks / Sacrum / Coccyx Etiology: ??MASD (Moisture Associated Skin Damage ) Wound Bed: red pink blanchable tissue throughout bilateral buttocks assessed for scattered areas of red clean pink tissue partial thickness tissue loss - consistent with friction and not pressure Drainage / Odor: Sanginous drainage noted after cleansing Edges: ? Irregular Alesha wound: ?Dark hyperpigmented tissue - evidence of chronic moistures - No Induration, Fluctuance or Warmth noted Pain: reported pain and tenderness Goals of Treatment: ? Barrier cream to aid in protect from moisture and friction - foam dressing to sacrum to protect from friction and pressure Scrotum is noted for swelling - some MASD noted - recommend barrier cream to protect from moisture and protect tissue from wound development. Recommendations: 1. Turn and Reposition every 2 hours and as needed for patient comfort.? Use pillows or wedges to support off loading positions. 2. Off Load all bony prominences with use of pillows and heel boots if needed.? Apply Preventative foams where needed. ? 3. Monitor for incontinence and moisture control, use barrier creams when needed for prevention and treatment. 4. Provide adequate and supplemental nutrition.? 5. Order or Continue low air loss mattress. 6. When applicable maintain blood glucose levels per Providers order. 7. Sacrum - Routine Cleansing. Apply preventative sacral foam dressing - peel back and assess Q shift and change every 3 days. 8. Bilateral Heels - Elevate heels off of bed surface with pillows. Apply foam dressings to aid in pressure redistribution and protect from friction. Peel back and assess Q shift and change ever 3 days. 9. Buttock and Scrotum - Routine Cleansing with PH balanced wipes. Apply barrier cream twice daily and after incontinence episodes. Re-consult wound care Nurse for wound deterioration or wound changes.
[2024-02-26] MEDS: Sucralfate 1 GM TABLET PO (15:49)
[2024-02-26] MEDS: Topiramate 100 MG TABLET 200 MG PO (22:15)
[2024-02-26] MEDS: risperiDONE 2 MG TABLET PO (22:15)
[2024-02-26] MEDS: QUEtiapine Fumarate 50 MG TABLET PO (22:16)
[2024-02-26] MEDS: Mirtazapine 15 MG TABLET PO (22:17)
[2024-02-26] MEDS: Albuterol/Iprat 2.5/0.5MG 3 ML AMPUL.NEB INHALE (23:55)
[2024-02-27] VITALS (15 sets, daily range): BP systolic 120–149; BP diastolic 63–80; PULSE 60–88; RESP 16–20; TEMP 35.5–36.5; O2SAT 85–98
[2024-02-27 05:52] LABS: Hematocrit 28.7 % (42.0-52.0); Hemoglobin 9.2 g/dl (14.0-18.0); Mean Corpuscular HGB Conc 32.1 g/dl (31.0-36.0); Mean Corpuscular Volume 93.5 fL (80.0-98.0); Mean Platelet Volume 9.6 fL (9.4-12.4); Platelet Count 120 X10*3/uL (160-400); Red Blood Count 3.07 X10*6/uL (4.60-5.80); Red Cell Distribution Width 17.2 % (11.0-16.0); White Blood Count 7.3 X10*3/uL (4.8-10.8)
[2024-02-27 06:01] LABS: INTERNATIONAL NORM RATIO 1.4 (0.9-1.1); Prothrombin Time 17.1 SEC (11.1-13.3)
[2024-02-27 06:08] LABS: Alanine Aminotransferase 7 U/L (0-40); Alkaline Phosphatase 106 U/L (39-117); Anion Gap 10 (12-20); Aspartate Amino Transferase 17 U/L (5-37); Bilirubin Direct 2.5 mg/dL (0.0-0.5); Bilirubin Total 4.4 mg/dL (0.0-1.0); Blood Urea Nitrogen 9 mg/dL (9-16); Calcium 8.3 mg/dL (8.4-10.2); Carbon Dioxide 29 mmol/L (22-29); Chloride 110 mmol/L (96-108); Estimated Glomerular Filt Rate > 60; Glucose Fasting 103 mg/dL (60-99); Potassium 3.3 mmol/L (3.3-5.1); Sodium 146 mmol/L (135-145); Total Protein 5.8 g/dL (6.5-8.0)
[2024-02-27] MEDS: Albuterol/Iprat 2.5/0.5MG 3 ML AMPUL.NEB INHALE ×4 (09:25→19:27)
[2024-02-27] MEDS: FLUoxetine HCl 20 MG CAPSULE 60 MG PO (09:30)
[2024-02-27] MEDS: Fluconazole 100 MG TABLET PO (09:30)
[2024-02-27] MEDS: Topiramate 100 MG TABLET 200 MG PO ×2 (09:30→20:44)
[2024-02-27] MEDS: Propranolol HCL 10 MG TABLET PO ×2 (09:30→16:23)
[2024-02-27] MEDS: Sucralfate 1 GM TABLET PO ×2 (09:30→16:23)
[2024-02-27] MEDS: QUEtiapine Fumarate 50 MG TABLET PO ×2 (09:30→20:44)
[2024-02-27] MEDS: Spironolactone 25 MG TABLET 100 MG PO (09:31)
--- NOTE | 2024-02-27 10:40 | HO.PM.IMPN ---
Subjective Subjective Date of Service: 02/27/24 Interval History: hungry, no further bleeding Physical Exam Vital Signs: Vital Signs: Last Vital Signs Temp 97.4 F 02/27/24 07:11 Pulse 63 02/27/24 09:30 Resp 16 02/27/24 09:25 BP 149/69 H 02/27/24 09:31 Pulse Ox 93 02/27/24 09:19 O2 Del Method Nasal Cannula 02/27/24 09:19 O2 Flow Rate 2 02/27/24 09:19 BMI result Body Mass Index 41.4 General: AO X 3, no acute distress Resp: good air movement, no crackles, mild exp wheez bilateral, no accessory muscles used CVS: S1,S2,RRR GI: soft, non tender, non distended Neuro: motor grossly intact, alert Psych: appropriate affect, appropriate insight Objective Data Active Medications Acetaminophen (Acetaminophen 325 Mg Tablet) 650 mg PO Q6H PRN PRN Reason: Pain, Mild (Pain Scale 1-3) Last Admin: 02/25/24 11:58 Dose: 650 mg Documented By: AYALA Albuterol/Ipratropium (Albuterol/Iprat 2.5/0.5mg 3 Ml Ampul.Neb) 3 ml INHALE RQ4H WHILE AWAKE [facility] Last Admin: 02/27/24 09:25 Dose: 3 ml Documented By: MARLYN Fluconazole (Fluconazole 100 Mg Tablet) 100 mg PO DAILY [facility] Stop: 03/04/24 09:01 Last Admin: 02/27/24 09:30 Dose: 100 mg Documented By: NAS Fluoxetine HCl (Fluoxetine Hcl 20 Mg Capsule) 60 mg PO DAILY [facility] Last Admin: 02/27/24 09:30 Dose: 60 mg Documented By: NAS Lactulose (Lactulose 20 Gm/30 Ml Solution) 20 gm PO TID PRN PRN Reason: Constipation Lorazepam (Lorazepam 2 Mg/Ml Vial) 1 mg IVPUSH Q6H PRN PRN Reason: Anxiety Last Admin: 02/26/24 22:16 Dose: 1 mg Documented By: ANIBAL Melatonin (Melatonin 3 Mg Tablet) 9 mg PO BEDTIME PRN PRN Reason: Insomnia Mirtazapine (Mirtazapine 15 Mg Tablet) 15 mg PO BEDTIME [facility] Last Admin: 02/26/24 22:17 Dose: 15 mg Documented By: ANIBAL Propranolol HCl (Propranolol Hcl 10 Mg Tablet) 10 mg PO TID [facility]; Protocol Last Admin: 02/27/24 09:30 Dose: 10 mg Documented By: NAS Quetiapine Fumarate (Quetiapine Fumarate 50 Mg Tablet) 50 mg PO BID [facility] Last Admin: 02/27/24 09:30 Dose: 50 mg Documented By: NAS Risperidone (Risperidone 2 Mg Tablet) 2 mg PO BEDTIME [facility] Last Admin: 02/26/24 22:15 Dose: 2 mg Documented By: ANIBAL Spironolactone (Spironolactone 25 Mg Tablet) 100 mg PO DAILY [facility]; Protocol Last Admin: 02/27/24 09:31 Dose: 100 mg Documented By: NAS Sucralfate (Sucralfate 1 Gm Tablet) 1 gm PO BIDAC [facility] Last Admin: 02/27/24 09:30 Dose: 1 gm Documented By: NAS Topiramate (Topiramate 100 Mg Tablet) 200 mg PO BID [facility] Last Admin: 02/27/24 09:30 Dose: 200 mg Documented By: NAS Labs 02/27/24 05:15 02/27/24 05:15 Labs: Laboratory Results - last 24 hr 02/27/24 05:15 MCV 93.5 MCH 30.0 MCHC 32.1 RDW 17.2 H Plt Count 120 L MPV 9.6 Absolute Nucleated RBC 0.000 Nucleated RBC % (auto) 0.0 PT 17.1 H INR 1.4 H Anion Gap 10 L Estim Creat Clear Calc 105.0 Estimated GFR > 60 Fasting Glucose 103 H Calcium 8.3 L Magnesium 2.0 Total Bilirubin 4.4 H Direct Bilirubin 2.5 H AST 17 ALT 7 Alkaline Phosphatase 106 Total Protein 5.8 L Albumin 3.0 L Microbiology Microbiology Results: Microbiology 02/25/24 11:53 Blood Culture - Preliminary Blood - Venous No growth after 24 hours. 02/25/24 11:48 Blood Culture - Preliminary Blood - Venous No growth after 24 hours. Assessment and Plan (1) Esophageal varices: Status: Acute Plan 58M PMH etoh cirrhosis (history of varices, portal gastropathy, ascites, inr 1.4, platelets around 120) mood disorder, presented 02/23/24 with weakness, melena, coffee-ground emesis. Hemoglobin found to be 3.8, lactate 14, admitted to the intensive care unit, transfused multiple units of PRBC and FFP. EGD 02/24/24 showed severe erosive esophagitis, nonbleeding esophageal and gastric varices, portal hypertensive gastropathy, suspected esophageal candidiasis. now off pressors, hgb stable, no further bleeding, downgraded to medical floor 02/26/24. Acute blood loss anemia complicated by hypovolemic shock due to severe erosive esophagitis, portal gastropathy Hemoglobin stable, monitor Continue PPI Diflucan Now off pressors Acute hypoxic respiratory failure Weaned down to 2 L Check chest x-ray Continue duo nebs Continue to wean NATHANIEL Resolved Alcohol dependence with cirrhosis Continue Aldactone Mood disorder Risperdal, Seroquel, Prozac Weakness PT eval DVT prophylaxis-mechanical due to GI bleed Full code reason for continued hospitalization: Weaning O2 Quality Stroke Does the patient have a stroke diagnosis?: No VTE Prior VTE?: No VTE Risk Level:: Medical - moderate - high VTE Device Contraindication: N/A - Device Ordered VTE Drug Contraindication: Treatment Not Indicated
--- NOTE | 2024-02-27 11:32 | P.CDIM_ITS ---
PROVIDER RESPONSE TEXT: To clarify, the appropriate diagnosis supported by the clinical indicators: Pressure injury Stage 1 left heel QUERY TEXT: PHYSICIAN'S DOCUMENTATION REQUEST Date of Query: 02/27/2024 11:20 AM EDT Patient Name: Leandro Rico Admit Date: 02/23/2024 Dear Gaston Solis, A review of the medical record indicates additional documentation may be needed. Please review below and update the documentation accordingly. Clinical Indicators: Wound care assessment notes dated 02/25 - Stage 1 pressure injury left heel - Present on arrival Apply foam dressings to aid in pressure distribution and protect from friction. Based on the above, could you please provide further information regarding the ulcer/wound/injury: Pressure injury Stage 1 left heel Other etiology Other (explain) Clinically unable to determine (explain) Thank you, Shabana Camejo, CCS, CDIS Use of terms such as suspected, likely, concern for, or probable (associated with a specific diagnosi s that is being evaluated, monitored, or treated as if it exists) are acceptable and can be coded in the inpatient se tting, when documented at the time of discharge. Please use your independent medical judgment in providing your response. THIS QUERY IS PART OF THE PERMANENT MEDICAL RECORD
[2024-02-27] MEDS: ondansetron HCL 4 MG/2 ML VIAL IVPUSH (13:22)
--- NOTE | 2024-02-27 19:54 | PM.EVENT ---
Event Note Date of Service: 02/28/24 Event Note: 7:29 PM - Contacted to notify patient vomited 100 ml kelechi red blood. He is also requiring supplemental O2 as his O2 sats dropped to 85% today. I did evaluate pt. He is tachypnic and currently on 2L/min of supplemental O2 and receiving breathing tx. Lungs auscultation is remarkable for bilateral wheezing. CXR showed right lower lobe infiltrate (likely aspiration). Interventions: -NPO -Continuous pulse oximetry. -Start gentle IV fluids. -Start tx with Zosyn IV. -Check CBC stat. -Start tx with Protonix 80 mg IV then 40 mg PO bid. -Octretide 50 mcg IV then infusion. -Solu-medrol 125 mg IV. -GI Dr. Gibson was updated. Time Spent With Patient Time: Total time managing care of this patient today ____ minutes.
[2024-02-27] MEDS: methylPREDNISolone Sod Succ 125 MG/2 ML VIAL 80 MG IVPUSH (20:20)
[2024-02-27] MEDS: Pantoprazole Sodium 40 MG/10 ML VIAL 80 MG IVPUSH (20:21)
[2024-02-27] MEDS: Octreotide Acetate 100 MCG/ML AMPUL 50 MCG IVPUSH (20:30)
[2024-02-27 20:33] LABS: Hematocrit 29.9 % (42.0-52.0); Hemoglobin 9.4 g/dl (14.0-18.0); Mean Corpuscular HGB Conc 31.4 g/dl (31.0-36.0); Mean Corpuscular Hemoglobin 29.5 pg (27.0-33.0); Mean Corpuscular Volume 93.7 fL (80.0-98.0); Mean Platelet Volume 9.6 fL (9.4-12.4); Platelet Count 114 X10*3/uL (160-400); Red Blood Count 3.19 X10*6/uL (4.60-5.80); Red Cell Distribution Width 17.7 % (11.0-16.0); White Blood Count 10.5 X10*3/uL (4.8-10.8)
[2024-02-27] MEDS: Piperacillin Sodium/Tazobactam 3.375 GM in 0.9 % Sodium Chloride 50 ML IV (20:34)
[2024-02-27] MEDS: Dextrose 5 % and 0.9 % NaCl 1,000 ML 75 ML IVCONT (20:37)
[2024-02-27] MEDS: risperiDONE 2 MG TABLET PO (20:44)
[2024-02-27] MEDS: Mirtazapine 15 MG TABLET PO (20:44)
[2024-02-27] MEDS: Octreotide Acetate 500 MCG in 0.9 % Sodium Chloride 500 ML 50.1 MCG IVCONT (21:20)
[2024-02-28] VITALS (9 sets, daily range): BP systolic 124–137; BP diastolic 62–70; PULSE 65–76; RESP 16–20; TEMP 36.1–36.4; O2SAT 93–98
[2024-02-28 00:54] LABS: Hematocrit 28.6 % (42.0-52.0); Hemoglobin 9.2 g/dl (14.0-18.0); Mean Corpuscular HGB Conc 32.2 g/dl (31.0-36.0); Mean Corpuscular Hemoglobin 30.2 pg (27.0-33.0); Mean Corpuscular Volume 93.8 fL (80.0-98.0); Mean Platelet Volume 10.4 fL (9.4-12.4); Platelet Count 106 X10*3/uL (160-400); Red Blood Count 3.05 X10*6/uL (4.60-5.80)
[2024-02-28] MEDS: Piperacillin Sodium/Tazobactam 3.375 GM in 0.9 % Sodium Chloride 50 ML IV ×4 (03:21→20:10)
[2024-02-28] MEDS: Pantoprazole Sodium 40 MG/10 ML VIAL IVPUSH (05:20)
[2024-02-28 06:27] LABS: Hematocrit 29.7 % (42.0-52.0); Hemoglobin 9.3 g/dl (14.0-18.0); Mean Corpuscular HGB Conc 31.3 g/dl (31.0-36.0); Mean Corpuscular Hemoglobin 29.8 pg (27.0-33.0); Mean Corpuscular Volume 95.2 fL (80.0-98.0); Mean Platelet Volume 10.3 fL (9.4-12.4); Red Blood Count 3.12 X10*6/uL (4.60-5.80); Red Cell Distribution Width 18.1 % (11.0-16.0); White Blood Count 9.4 X10*3/uL (4.8-10.8)
[2024-02-28 06:28] LABS: INTERNATIONAL NORM RATIO 1.4 (0.9-1.1); Platelet Count 95 X10*3/uL (160-400); Prothrombin Time 16.8 SEC (11.1-13.3)
[2024-02-28 06:41] LABS: Alanine Aminotransferase 8 U/L (0-40); Albumin Level 2.7 g/dL (3.5-5.0); Alkaline Phosphatase 102 U/L (39-117); Anion Gap 13 (12-20); Aspartate Amino Transferase 23 U/L (5-37); Bilirubin Direct 2.5 mg/dL (0.0-0.5); Bilirubin Total 4.3 mg/dL (0.0-1.0); Blood Urea Nitrogen 9 mg/dL (9-16); Carbon Dioxide 23 mmol/L (22-29); Chloride 110 mmol/L (96-108); Estimated Glomerular Filt Rate > 60; Glucose Fasting 156 mg/dL (60-99); Magnesium 1.9 mg/dL (1.6-2.6); Potassium 4.2 mmol/L (3.3-5.1); Sodium 142 mmol/L (135-145); Total Protein 5.7 g/dL (6.5-8.0)
[2024-02-28] MEDS: Octreotide Acetate 500 MCG in 0.9 % Sodium Chloride 500 ML 50.1 MCG IVCONT (07:08)
[2024-02-28] MEDS: Albuterol/Iprat 2.5/0.5MG 3 ML AMPUL.NEB INHALE ×4 (07:49→18:59)
[2024-02-28] MEDS: Ammonium Lactate 12 % Lotion 226 GM BOTTLE 1 APPL TOPICAL ×2 (11:54→20:39)
[2024-02-28] MEDS: Famotidine/PF 20 MG/2 ML VIAL IVPUSH (11:54)
--- NOTE | 2024-02-28 11:56 | HO.PM.IMPN ---
Subjective Subjective Date of Service: 02/28/24 Interval History: Seen and evaluated this morning reported episode of bloody vomitus overnight w small amount Hb stable No other overnight events Review of Systems Review of Systems: Yes all other systems are reviewed and are negative Physical Exam Vital Signs: Vital Signs: Last Vital Signs Temp 97.4 F 02/28/24 07:29 Pulse 67 02/28/24 11:43 Resp 18 02/28/24 11:43 BP 133/69 02/28/24 07:29 Pulse Ox 96 02/28/24 07:29 O2 Del Method Nasal Cannula 02/28/24 07:29 O2 Flow Rate 2 02/28/24 07:29 BMI result Body Mass Index 41.4 Const: Other: Constitutional : Awake, interactive, not in distress Neck : Normal inspection, Supple Cardiovascular : RRR, no JVP, no lower extremity edema Respiratory : good bilateral air entry, no crackles, wheezes or rhonchi Gastrointestinal: soft, lax, mildly distended with moderate amount of ascites Skin : Warm, Dry Neurological : Alert & oriented x3, No focal deficit Objective Data Active Medications Acetaminophen (Acetaminophen 325 Mg Tablet) 650 mg PO Q6H PRN PRN Reason: Pain, Mild (Pain Scale 1-3) Last Admin: 02/25/24 11:58 Dose: 650 mg Documented By: AYALA Albuterol Sulfate (Albuterol Sulfate (0.083%) 2.5 Mg/3 Ml Vial.Neb) 2.5 mg INHALE Q2H PRN PRN Reason: Shortness of Breath/Wheezing Albuterol/Ipratropium (Albuterol/Iprat 2.5/0.5mg 3 Ml Ampul.Neb) 3 ml INHALE RQ4H WHILE AWAKE [facility] [place] Last Admin: 02/28/24 11:42 Dose: 3 ml Documented By: STANLEY Famotidine (Famotidine/Pf 20 Mg/2 Ml Vial) 20 mg IVPUSH DAILY [facility] [place] Last Admin: 02/28/24 11:54 Dose: 20 mg Documented By: JACOB Fluconazole (Fluconazole 100 Mg Tablet) 100 mg PO DAILY [facility] [place] Stop: 03/04/24 09:01 Last Admin: 02/28/24 07:09 Dose: Not Given Documented By: JACOB Non-Admin Reason: NPO Fluoxetine HCl (Fluoxetine Hcl 20 Mg Capsule) 60 mg PO DAILY [facility] Last Admin: 02/28/24 07:09 Dose: Not Given Documented By: JACOB Non-Admin Reason: NPO Piperacillin Sod/Tazobactam (Sod 3.375 gm/ Sodium Chloride) 50 mls @ 100 mls/hr IV Q6H [facility] Last Infusion: 02/28/24 08:44 Dose: Infused Documented By: JACOB Lactic Acid (Ammonium Lactate 12 % Lotion 226 Gm Bottle) 1 appl TOPICAL BID [facility] [place]; Protocol Last Admin: 02/28/24 11:54 Dose: 1 appl Documented By: JACOB Lactulose (Lactulose 20 Gm/30 Ml Solution) 20 gm PO TID PRN PRN Reason: Constipation Lorazepam (Lorazepam 2 Mg/Ml Vial) 1 mg IVPUSH Q6H PRN PRN Reason: Anxiety Last Admin: 02/26/24 22:16 Dose: 1 mg Documented By: ANIBAL Melatonin (Melatonin 3 Mg Tablet) 9 mg PO BEDTIME PRN PRN Reason: Insomnia Mirtazapine (Mirtazapine 15 Mg Tablet) 15 mg PO BEDTIME [facility] [place] Last Admin: 02/27/24 20:44 Dose: 15 mg Documented By: ANIBAL Ondansetron HCl (Ondansetron Hcl 4 Mg/2 Ml Vial) 4 mg IVPUSH Q6H PRN PRN Reason: Nausea Last Admin: 02/27/24 13:22 Dose: 4 mg Documented By: RITIKA Pantoprazole Sodium (Pantoprazole Sodium 40 Mg/10 Ml Vial) 40 mg IVPUSH DAILY@0630 [facility] Last Admin: 02/28/24 05:20 Dose: 40 mg Documented By: ANIBAL Propranolol HCl (Propranolol Hcl 10 Mg Tablet) 10 mg PO TID [facility]; Protocol Last Admin: 02/28/24 07:09 Dose: Not Given Documented By: JACOB Non-Admin Reason: NPO Quetiapine Fumarate (Quetiapine Fumarate 50 Mg Tablet) 50 mg PO BID [facility] Last Admin: 02/28/24 07:10 Dose: Not Given Documented By: JACOB Non-Admin Reason: NPO Risperidone (Risperidone 2 Mg Tablet) 2 mg PO BEDTIME [facility] Last Admin: 02/27/24 20:44 Dose: 2 mg Documented By: ANIBAL Spironolactone (Spironolactone 25 Mg Tablet) 100 mg PO DAILY [facility] [place]; Protocol Last Admin: 02/28/24 07:10 Dose: Not Given Documented By: JACOB Non-Admin Reason: NPO Sucralfate (Sucralfate 1 Gm Tablet) 1 gm PO BIDAC [facility] [place] Last Admin: 02/28/24 07:09 Dose: Not Given Documented By: JACOB Non-Admin Reason: NPO Topiramate (Topiramate 100 Mg Tablet) 200 mg PO BID [facility] [place] Last Admin: 02/28/24 07:11 Dose: Not Given Documented By: JACOB Non-Admin Reason: NPO Labs 02/28/24 05:42 02/28/24 05:42 Labs: Laboratory Results - last 24 hr 02/27/24 02/28/24 02/28/24 20:18 00:45 05:42 MCV 93.7 93.8 95.2 MCH 29.5 30.2 29.8 MCHC 31.4 32.2 31.3 RDW 17.7 H 18.0 H 18.1 H Plt Count 114 L 106 L 95 L MPV 9.6 10.4 10.3 Absolute Nucleated RBC 0.000 0.000 0.000 Nucleated RBC % (auto) 0.0 0.0 0.0 PT 16.8 H INR 1.4 H Anion Gap 13 Estim Creat Clear Calc 115.0 Estimated GFR > 60 Fasting Glucose 156 H Calcium 8.0 L Magnesium 1.9 Total Bilirubin 4.3 H Direct Bilirubin 2.5 H AST 23 ALT 8 Alkaline Phosphatase 102 Total Protein 5.7 L Albumin 2.7 L Microbiology Microbiology Results: Microbiology 02/25/24 11:53 Blood Culture - Preliminary Blood - Venous No growth after 48 hours. 02/25/24 11:48 Blood Culture - Preliminary Blood - Venous No growth after 48 hours. Assessment and Plan (1) Septic shock: Status: Acute (2) Esophageal varices: Status: Acute (3) Acute upper gastrointestinal bleeding: Status: Acute (4) Aspiration pneumonia: Status: Acute Plan 58M PMH etoh cirrhosis (history of varices, portal gastropathy, ascites, inr 1.4, platelets around 120) mood disorder, presented 02/23/24 with weakness, melena, coffee-ground emesis. Hemoglobin found to be 3.8, lactate 14, admitted to the intensive care unit, transfused multiple units of PRBC and FFP. EGD 02/24/24 showed severe erosive esophagitis, nonbleeding esophageal and gastric varices, portal hypertensive gastropathy, suspected esophageal candidiasis. now off pressors, hgb stable, no further bleeding, downgraded to medical floor 02/26/24. Acute blood loss anemia complicated by hypovolemic shock due to severe erosive esophagitis, portal gastropathy REported episode of hematemesis overnight Hemoglobin stable, monitor Hb Continue PPI Start Famotidine DC Octreotides for now Diflucan GI reevaluated him and recommended no endoscopy at this point Acute hypoxic respiratory failure 2/2 aspiration pneumonia Weaned down to 2 L chest x-ray showong pneumonia Continue duo nebs Continue to wean Started IV Antibiotics Dysphagia CLIENT STRATEGIST pending NATHANIEL Resolved Alcohol dependence with cirrhosis Continue Aldactone Mood disorder Risperdal, Seroquel, Prozac Weakness PT eval rec SNF placement DVT prophylaxis-mechanical due to GI bleed Full code reason for continued hospitalization: Weaning O2, monitor H&H Quality Stroke Does the patient have a stroke diagnosis?: No VTE Prior VTE?: No VTE Risk Level:: Medical - moderate - high VTE Device Contraindication: N/A - Device Ordered VTE Drug Contraindication: Treatment Not Indicated
--- NOTE | 2024-02-28 15:02 | MHC.SL.SWA ---
Risk of Aspiration Due to: History of Pneumonia Dysphasia Diet Status: UPGRADE Liquid Consistency and Strategies for Safe Swallow: Liquid Intake Recommendation: Thin Liquid Intake Strategies: Small Sips Solid Food Consistency: Dietary Recommendations: Regular Oral Medication Intake: Whole with Puree Please contact the pharmacy regarding appropriate crushable or liquid drug formulations that are available whenever modified delivery is recommended. Compensatory Strategies and Precautions to be Taken for Safe Swallow: Sitting Upright (90 deg) Small Bites and Sips Slow rate of ingestion Supervision While Eating and Drinking for Safe Swallow: Intermittent Supervision Recommendation for Speech: Inpatient Speech Therapy Comment: Recommend UGPRADE to REGULAR solids and THIN liquids. Intermittent supervision w/ cues to eat and drink slowly. PLANT MAINTENANCE TECHNICIAN f/u 1-2x to monitor toleration of diet and progression of RLL infiltrate. Frequency/Duration: 1-2 f/u Program Control Analyst Clinican/Clinical Fellow: No Supervisory Statement: I have reviewed and agree with the student/clinical fellow's documentation: N/A Speech Language Pathologist: Carola Muñiz M.A., CCC-PLANT MAINTENANCE TECHNICIAN
[2024-02-28] MEDS: Sucralfate 1 GM TABLET PO (16:26)
[2024-02-28] MEDS: Topiramate 100 MG TABLET 200 MG PO (20:10)
[2024-02-28] MEDS: Propranolol HCL 10 MG TABLET PO (20:11)
[2024-02-28] MEDS: QUEtiapine Fumarate 50 MG TABLET PO (20:12)
[2024-02-28] MEDS: risperiDONE 2 MG TABLET PO (20:12)
[2024-02-28] MEDS: Mirtazapine 15 MG TABLET PO (20:13)
[2024-02-29] MEDS: Piperacillin Sodium/Tazobactam 3.375 GM in 0.9 % Sodium Chloride 50 ML IV ×2 (02:47→08:17)
[2024-02-29 03:36] VITALS: BP 126/66; PULSE 69; RESP 20; TEMP 36.3; O2SAT 96
[2024-02-29] MEDS: Pantoprazole Sodium 40 MG/10 ML VIAL IVPUSH (05:41)
[2024-02-29] MEDS: ondansetron HCL 4 MG/2 ML VIAL IVPUSH (06:25)
--- NOTE | 2024-02-29 06:34 | PC.NURSE ---
Pt vomited dark blood multiple times around 0620, PRN Zofran given with pending effect and Boni ROE was notified. Pt will cont. to monitor.
[2024-02-29 07:11] LABS: Hematocrit 27.4 % (42.0-52.0); Hemoglobin 8.4 g/dl (14.0-18.0); Mean Corpuscular HGB Conc 30.7 g/dl (31.0-36.0); Mean Corpuscular Hemoglobin 29.4 pg (27.0-33.0); Mean Corpuscular Volume 95.8 fL (80.0-98.0); Mean Platelet Volume 10.2 fL (9.4-12.4); Platelet Count 138 X10*3/uL (160-400); Red Blood Count 2.86 X10*6/uL (4.60-5.80); Red Cell Distribution Width 18.1 % (11.0-16.0); White Blood Count 10.9 X10*3/uL (4.8-10.8)
[2024-02-29 07:28] LABS: Anion Gap 12 (12-20); Blood Urea Nitrogen 11 mg/dL (9-16); Calcium 8.1 mg/dL (8.4-10.2); Carbon Dioxide 24 mmol/L (22-29); Chloride 111 mmol/L (96-108); Creatinine Clr Calc Pharmacy 107.3; Estimated Glomerular Filt Rate > 60; Glucose Random 115 mg/dL (60-115); Potassium 3.5 mmol/L (3.3-5.1); Sodium 143 mmol/L (135-145)
[2024-02-29 07:47] VITALS: BP 137/79; PULSE 70; RESP 16; TEMP 36.6; O2SAT 96
[2024-02-29] MEDS: Albuterol/Iprat 2.5/0.5MG 3 ML AMPUL.NEB INHALE ×2 (08:10→11:30)
[2024-02-29 08:11] VITALS: PULSE 72; RESP 20; O2SAT 97
[2024-02-29] MEDS: Famotidine/PF 20 MG/2 ML VIAL IVPUSH (08:19)
[2024-02-29] MEDS: FLUoxetine HCl 20 MG CAPSULE 60 MG PO (08:20)
[2024-02-29] MEDS: Topiramate 100 MG TABLET 200 MG PO (08:20)
[2024-02-29] MEDS: Spironolactone 25 MG TABLET 100 MG PO (08:20)
[2024-02-29] MEDS: Propranolol HCL 10 MG TABLET PO (08:21)
[2024-02-29] MEDS: Fluconazole 100 MG TABLET PO (08:21)
[2024-02-29] MEDS: Sucralfate 1 GM TABLET PO (08:21)
[2024-02-29] MEDS: QUEtiapine Fumarate 50 MG TABLET PO (08:21)
[2024-02-29] MEDS: Ammonium Lactate 12 % Lotion 226 GM BOTTLE 1 APPL TOPICAL (08:24)
[2024-02-29 11:32] VITALS: PULSE 65; RESP 18; O2SAT 99
[2024-02-29 11:51] VITALS: PULSE 65
[2024-02-29 11:53] LABS: Hematocrit 27.5 % (42.0-52.0); Hemoglobin 8.6 g/dl (14.0-18.0); Mean Corpuscular HGB Conc 31.3 g/dl (31.0-36.0); Mean Corpuscular Hemoglobin 29.6 pg (27.0-33.0); Mean Corpuscular Volume 94.5 fL (80.0-98.0); Platelet Count 123 X10*3/uL (160-400); Red Blood Count 2.91 X10*6/uL (4.60-5.80); Red Cell Distribution Width 18.2 % (11.0-16.0); White Blood Count 10.5 X10*3/uL (4.8-10.8)
--- NOTE | 2024-02-29 12:22 | P.DS_ITS ---
DS: Providers Provider Date of Service: 02/29/24 Date of admission: 02/23/24 14:58 Primary care physician: Fransisco Soria MD Consults: 02/23/24 17:01 Consult to Urology Routine Consulting Provider: [facility] Reason for consultation: Unable to place Barber catheter after multiple attempts Has provider been notified: No 02/23/24 23:12 Consult to Wound Care Routine Reason for consultation: MASD Has provider been notified: Yes DS: Diagnosis Discharge Diagnosis (1) Septic shock: Status: Acute (2) Esophageal varices: Status: Acute (3) Acute upper gastrointestinal bleeding: Status: Acute (4) Aspiration pneumonia: Status: Acute (5) Acidosis, lactic: Status: Acute (6) Hypokalemia: Status: Acute (7) Anemia: Status: Acute (8) Bladder neck obstruction: Status: Acute (9) Acute respiratory failure with hypoxia: Status: Acute (10) Dysphagia: Status: Acute DS: Summary Hospital Course Hospital Course: Admission note HPI to ICU 58-year-old gentleman with underlying history of alcohol abuse and resultant alcoholic cirrhosis, recent admission in December of 2023 for upper GI bleed from gastropathy and grade 1 varices presents today complaining of 2-3 week history of GI bleed symptomatic with dark stools and over the last 3 days with coffee- ground vomiting. On ER evaluation with with hemoglobin of 3.8 started on blood product support. Patient evaluated by gastroenterology service and is planned f or upper endoscopy in the morning. Patient has been admitted to the the intensive care unit. Hospital course The patient was admitted for evaluation of acute blood loss anemia complicated by hypovolemic shock due to severe erosive esophagitis and portal gastropathy as REported by Upper GI endoscopy showed erosive esophagitis, grade 1 esophageal varices and nonbleeding AVM in the duodenum. Admitted to ICU for low BP and low Hb of 3.8 on admission requiring IV Vasopressor and blood products transfusion of PRBCs, FFP and Platelets. Started on PPI IV, IV Famotidine, Octreotide and Carafate with fair response as hemoglobin stabilized 8.5-9. GI reevaluated him as he had one episode of bloody vomits with no drop in Hb and recommended no endoscopy at this point He was also treated for Acute hypoxic respiratory failure 2/2 aspiration pneumonia as CXR showed infiltrates. Treated with IV Zosyn with fair response as he was weaned off O2 supplement. Evaluated by EMPLOYEE COMMUNICATIONS MANAGER for Dysphagia and aspiration who recommended regular diet as his general condition improved. For acute kidney injury he received IV fluids with fair response as Creatinine improved back to baseline. For Hx of Alcohol dependence with cirrhosis. Continue Aldactone. to restart Lasix on discharge. continue Propranolol. For his Mood disorders kept on Risperdal, Seroquel, Prozac Developed generalized Weakness and physical deconditioning with PT recommending SNF placement but he would like to go home with PT. Discharge plan Continue Augmentin for 1 more week Ammonium lactate lotion twice daily Repeat CBC next week To follow up with PCP to repeat Chest XR Time Attestation Discharge Coordination Time (in mins): 36 Quality: Safe Use of Opioids Does Pt have an Active Cancer Diagnosis on the Problem List?: No Quality: Stroke Does the patient have a stroke diagnosis?: No Physical Exam Vital Signs: Vital Signs: Last Vital Signs Temp 97.8 F 02/29/24 07:47 Pulse 65 02/29/24 11:51 Resp 18 02/29/24 11:32 BP 137/79 02/29/24 07:47 Pulse Ox 96 02/29/24 07:47 O2 Del Method Nasal Cannula 02/29/24 07:47 O2 Flow Rate 2 02/29/24 07:47 BMI result Body Mass Index 41.4 Const: Other: Constitutional : Awake, interactive, not in distress Neck : Normal inspection, Supple Cardiovascular : RRR, no JVP, no lower extremity edema Respiratory : good bilateral air entry, no crackles, wheezes or rhonchi Gastrointestinal: soft, lax, mildly distended with mild amount of ascites Skin : Warm, Dry Neurological : Alert & oriented x3, No focal deficit DS: Data Data Completed and Pending Completed studies during hospitalization [Text1]: Procedures Detoxification Services for Substance Abuse Treatment (12/27/23) Drainage of Peritoneal Cavity, Percutaneous Approach (03/02/22) Excision of Cecum, Via Natural or Artificial Opening Endoscopic, Diagnostic (03/02/22) Excision of Rectum, Via Natural or Artificial Opening Endoscopic, Diagnostic (03/02/22) Inspection of Upper Intestinal Tract, Via Natural or Artificial Opening Endoscopic (12/27/23) Repair Scalp Skin, External Approach (11/20/21) Transfusion of Nonautologous Red Blood Cells into Peripheral Vein, Percutaneous Approach (12/27/23) Labs on day of discharge: Laboratory Results - last 24 hr 02/29/24 02/29/24 05:28 11:34 WBC 10.9 H 10.5 RBC 2.86 L 2.91 L Hgb 8.4 L 8.6 L Hct 27.4 L 27.5 L MCV 95.8 94.5 MCH 29.4 29.6 MCHC 30.7 L 31.3 RDW 18.1 H 18.2 H Plt Count 138 L D 123 L MPV 10.2 10.0 Absolute Nucleated RBC 0.000 0.000 Nucleated RBC % (auto) 0.0 0.0 Sodium 143 Potassium 3.5 Chloride 111 H Carbon Dioxide 24 Anion Gap 12 BUN 11 Creatinine 0.90 Estim Creat Clear Calc 107.3 Estimated GFR > 60 Random Glucose 115 Calcium 8.1 L Preliminary micro results at discharge 02/25/24 11:53 Blood Culture - Preliminary Blood - Venous No growth after 48 hours. 02/25/24 11:48 Blood Culture - Preliminary Blood - Venous No growth after 48 hours. Imaging Chest x-ray: Radiologist's impression: ITS Impressions Chest X-Ray 02/23/24 13:20 IMPRESSION: Unremarkable examination. Chest X-Ray 02/27/24 15:08 IMPRESSION: There are multi-focal pulmonary infiltrates, new from 02/23/2024. The finding is consistent with acute pneumonia. Recommend radiographic follow-up to ensure full clearance. A preliminary report was provided by the [facility] on 02/28/2024. Discharge Plan Discharge Anticipated Discharge Date/Time: 02/29/24 12:13 Patient Disposition: Home Health Service Discharge Diagnosis: Esophagitis GI bleed Aspiration pneumonia Referrals: [facility] [Outside] - 3-5 Days (home services for nursing and physical therapy - a nurse will call you to set up first visit) Fransisco Soria MD [Primary Care Provider] - 1 Week Discharge Medications: New ammonium lactate 12 % Lotion 1 appl topical BID Qty: 400 1RF Protocol: Apply to: Apply to: whole body amoxicillin-pot clavulanate 875-125 mg tablet 1 tab PO BID Qty: 14 0RF Continued propranolol 10 mg tablet 1 tab PO TID topiramate [Topamax] 200 mg tablet 1 tab PO BID lactulose [Constulose] 10 gram/15 mL solution 30 ml PO TID PRN (Reason: Constipation) tamsulosin 0.4 mg capsule 0.4 mg PO BEDTIME furosemide 40 mg tablet 1 tab PO BID spironolactone 100 mg tablet 1 tab PO DAILY fluoxetine [Prozac] 20 mg capsule 60 mg PO DAILY hydroxyzine HCl 25 mg tablet 25 - 50 mg PO BID PRN (Reason: anxiety) mirtazapine 15 mg tablet 15 mg PO BEDTIME melatonin 10 mg tablet 10 mg PO BEDTIME PRN (Reason: Insomnia) risperidone 2 mg Tablet 2 mg PO BEDTIME quetiapine [Seroquel] 50 mg Tablet 50 mg PO BID sucralfate 1 gram Tablet 1 g PO BIDAC Qty: 60 0RF pantoprazole 40 mg tablet,delayed release (DR/EC) 40 mg PO BID Qty: 60 0RF Discharge Orders: Discharge Order (Routine); Ordered 02/29/24 Ordered By: Hector Handley Diet: Advance to usual diet Activity on Discharge: As tolerated Stand Alone Forms: Patient Portal Discharge page Print Language: Senegalese Other Ambulatory Orders: Complete Blood Count Auto Diff (Routine) Timeframe: 1 Week Facility: [facility] - Location: Laboratory Ordered By: Hector Handley Care Plan Goals: Read below Health Concerns: Read below Plan of Treatment: Read below Assessment: Continue Augmentin for 1 more week Ammonium lactate lotion twice daily Repeat CBC next week
--- NOTE | 2024-02-29 12:28 | MHC.CM.PN ---
DP: PT HAS BEEN MEDICALLY CLEARED FOR DC HOME WITH NEW [facility]. [facility] NOTIFIED OF TODAY'S DC. WILL TRANSPORT HOME.
--- NOTE | 2024-02-29 13:03 | MHC.SPEECHCO ---
Recommending therapeutic trials of ice chips periodically. Ensure oral care prior to trials. Aspiration precautions include sitting upright, single ice chips at a time, slow rate of administration. Pt is still coughing periodically, even with the ice chips, continue to monitor O2 needs - if regression, may have to pull back from the ice chips. DATA MANAGEMENT ANALYST following closely.
--- NOTE | 2024-02-29 14:39 | P.F2F_ITS ---
Service Date Service Date: 02/29/24 Encounter Date of encounter: 02/29/24 Reasons for Services Signs and symptoms assessed: physical deconditioning blood loss anemia Reason for correction: medication management and teach disease management Reason for physical therapy: home safety and mobility and therapeutic exercises Homebound: Leaving the home is medically contraindicated at this time without the asist of a device and/or another person due th the listed conditions above and below. Reason homebound: unsteady gait / fall risk Certification: Based on the above findings, I certify that this patient is confined to the home and needs intermittent correction care, physical therapy and/or speech therapy, or continues to need occupational therapy. The patient is under my care, and I have initiated the establishment of the plan of care. The patient will be followed by a physician who will periodically review the plan of care. Time Spent With Patient Time: Total time managing care of this patient today ____ minutes.
== END 2024-02-29 14:49 | disposition home health service (06) | DRG 432 ==
LOC: HO.ED 14:04 → HO.EDOVER 15:19 → HO.ICU 15:24 → HO.S3 02-26 11:11
PROVIDERS: Internal Medicine; Internal Medicine Critical Care Medicine; Internal Medicine Gastroenterology; Registered Nurse Community Health; Admitting Provider Internal Medicine Pulmonary Disease; Emergency Provider Student in an Organized Health Care Education/Training Program; PCP Internal Medicine; Visit Provider Student in an Organized Health Care Education/Training Program
PROC: 0DJ08ZZ Inspection of Upper Intestinal Tract, Via Natural or Artificial Opening Endoscopic (ICD-10-PCS; CPT 43235; principal; 2024-02-24 10:00)
DX: K70.30 Alcoholic cirrhosis of liver without ascites (principal); G93.41 Metabolic encephalopathy; I85.11 Secondary esophageal varices with bleeding; K22.11 Ulcer of esophagus with bleeding; R57.1 Hypovolemic shock; J96.01 Acute respiratory failure with hypoxia; J69.0 Pneumonitis due to inhalation of food and vomit; K76.6 Portal hypertension; D62 Acute posthemorrhagic anemia; N17.9 Acute kidney failure, unspecified; D68.4 Acquired coagulation factor deficiency; B37.81 Candidal esophagitis; R13.10 Dysphagia, unspecified; L89.621 Pressure ulcer of left heel, stage 1; N32.0 Bladder-neck obstruction; I86.4 Gastric varices; K31.89 Other diseases of stomach and duodenum; F39 Unspecified mood [affective] disorder; F10.20 Alcohol dependence, uncomplicated; K76.82 Hepatic encephalopathy; F17.210 Nicotine dependence, cigarettes, uncomplicated; E87.6 Hypokalemia; Z85.46 Personal history of malignant neoplasm of prostate; Z71.6 Tobacco abuse counseling; Z79.899 Other long term (current) drug therapy
CPT/HCPCS: 36415; 71045; 80048; 80053; 80076; 82140; 82803; 83605; 83690; 83735; 84100; 84484; 85025; 85027; 85610; 86850; 86900; 86901; 86923; 87040; 92526; 92610; 93005; 94640; 97116; 97162; 97530; 99285; C1758; C9113; J0613; J0696; J1170; J1450; J1940; J1956; J2060; J2270; J2354; J2405; J2543; J2598; J2704; J2919; J3010; J3430; J3480; P9016; P9017; P9047; P9073

== ENCOUNTER → 2024-02-23 13:41 | Outpatient (BNV) | payer MEDICARE, SELFPAY | PROVIDERS: Admitting Provider Internal Medicine Pulmonary Disease; Emergency Provider Student in an Organized Health Care Education/Training Program; PCP Internal Medicine; Visit Provider Internal Medicine Cardiovascular Disease | DX: R00.0 Tachycardia, unspecified (principal); I49.1 Atrial premature depolarization | CPT/HCPCS: 93010 ==

== ENCOUNTER 2024-02-23 14:58 | Outpatient (BNV) | payer MEDICARE, SELFPAY | END 2024-02-24 13:40 | PROVIDERS: Admitting Provider Internal Medicine Pulmonary Disease; Emergency Provider Student in an Organized Health Care Education/Training Program; PCP Internal Medicine; Visit Provider Internal Medicine Cardiovascular Disease | DX: R07.9 Chest pain, unspecified (principal); R00.1 Bradycardia, unspecified; I45.81 Long QT syndrome | CPT/HCPCS: 93010 ==

== ENCOUNTER → 2024-02-23 14:58 | Outpatient (BNV) | payer MEDICARE, SELFPAY | PROVIDERS: Admitting Provider Internal Medicine Pulmonary Disease; Emergency Provider Student in an Organized Health Care Education/Training Program; PCP Internal Medicine; Visit Provider Internal Medicine Pulmonary Disease | DX: K22.10 Ulcer of esophagus without bleeding (principal); K92.2 Gastrointestinal hemorrhage, unspecified; N17.9 Acute kidney failure, unspecified; K70.31 Alcoholic cirrhosis of liver with ascites; K76.6 Portal hypertension; K31.89 Other diseases of stomach and duodenum | CPT/HCPCS: 99291 ==

== ENCOUNTER → 2024-02-23 14:58 | Outpatient (BNV) | payer MEDICARE, SELFPAY | PROVIDERS: Admitting Provider Internal Medicine Pulmonary Disease; Emergency Provider Student in an Organized Health Care Education/Training Program; PCP Internal Medicine; Visit Provider Internal Medicine Critical Care Medicine | DX: A41.9 Sepsis, unspecified organism (principal); R65.21 Severe sepsis with septic shock; K92.2 Gastrointestinal hemorrhage, unspecified; G93.40 Encephalopathy, unspecified; K70.30 Alcoholic cirrhosis of liver without ascites | CPT/HCPCS: 99232; 99291 ==

== ENCOUNTER → 2024-02-23 14:58 | Outpatient (BNV) | payer MEDICARE, SELFPAY | PROVIDERS: Admitting Provider Internal Medicine Pulmonary Disease; Emergency Provider Student in an Organized Health Care Education/Training Program; PCP Internal Medicine; Visit Provider Internal Medicine | DX: A41.9 Sepsis, unspecified organism (principal); R65.21 Severe sepsis with septic shock; I85.00 Esophageal varices without bleeding; K92.2 Gastrointestinal hemorrhage, unspecified; J69.0 Pneumonitis due to inhalation of food and vomit; E87.20 Acidosis, unspecified; E87.6 Hypokalemia; D64.9 Anemia, unspecified; N32.0 Bladder-neck obstruction; J96.01 Acute respiratory failure with hypoxia; R13.10 Dysphagia, unspecified | CPT/HCPCS: 99232; 99233; 99239; 99499; G0180 ==

== ENCOUNTER → 2024-02-23 14:58 | Outpatient (BNV) | payer MEDICARE, SELFPAY | PROVIDERS: Admitting Provider Internal Medicine Pulmonary Disease; Emergency Provider Student in an Organized Health Care Education/Training Program; PCP Internal Medicine; Visit Provider Internal Medicine Gastroenterology | DX: I85.00 Esophageal varices without bleeding (principal); I86.4 Gastric varices; K31.89 Other diseases of stomach and duodenum; K20.90 Esophagitis, unspecified without bleeding | CPT/HCPCS: 43235; 99222 ==

== ENCOUNTER → 2024-02-23 14:58 | Outpatient (BNV) | payer MEDICARE, SELFPAY | PROVIDERS: Admitting Provider Internal Medicine Pulmonary Disease; Emergency Provider Student in an Organized Health Care Education/Training Program; PCP Internal Medicine; Visit Provider Urology | DX: N32.0 Bladder-neck obstruction (principal); D64.9 Anemia, unspecified; Z85.46 Personal history of malignant neoplasm of prostate; F10.10 Alcohol abuse, uncomplicated | CPT/HCPCS: 51703; 99222; 99223 ==

== ENCOUNTER 2024-02-29 17:47 | Inpatient (IN) | payer MEDICARE, SELFPAY ==
--- NOTE | ~2024-02-29 | XR_ITS ---
EXAMINATION: XR CHEST CLINICAL INFORMATION: Shortness of breath COMPARISON: Previous chest x-ray most recent 02/27/2024 TECHNIQUE: Frontal view of the chest was obtained. FINDINGS: The cardiac silhouette is enlarged but stable. The lung volumes are low. There are bilateral multi lobar nodular opacities seen throughout the lungs probably representing pneumonia. This is similar to February 27, 2024 exam. No pleural effusion or pneumothorax. Degenerative changes of the spine. XR/XR chest 1V IMPRESSION: Bilateral diffuse nodular opacities probably representing pneumonia.
--- NOTE | ~2024-02-29 | CT_ITS ---
EXAMINATION: CT HEAD WITHOUT CONTRAST CLINICAL INFORMATION: Altered mental status. COMPARISON: Head CT dated 12/06/2021. TECHNIQUE: Contiguous axial imaging was performed from the skullbase to vertex without intravenous administration of contrast. This CT examination was performed using dose optimization techniques as appropriate, variously including the following: *Automated exposure control *Adjustment of mA and/or kV according to patient size (this includes techniques or standardized protocols for targeted exams where dose is matched to indication/reason for exam; i.e. extremities or head) *Use of iterative reconstruction technique DLP: 636 mGy-cm. FINDINGS: There is no evidence of acute intracranial hemorrhage or territorial infarction. No abnormal mass effect or midline shift is seen. No extra-axial fluid collections are identified. [id number] generalized brain parenchymal volume loss evident for patient age. Commensurate ex vacuo prominence of the ventricles is stable. There is no abnormal attenuation within the brain parenchyma. The osseous structures and soft tissues are normal. The mastoid air cells are well aerated. Small retention cyst in the right maxillary sinus. CT/CT head/brain wo IV con IMPRESSION: No acute intracranial pathology.
--- NOTE | ~2024-02-29 | US_ITS ---
EXAMINATION: US ABDOMEN LIMITED CLINICAL INFORMATION: Therapeutic paracentesis. COMPARISON: CT GI bleed protocol 12/27/2023 TECHNIQUE: Real-time imaging of the right upper quadrant abdominal viscera. FINDINGS: Trace ascites. US/US abdomen limited IMPRESSION: Trace ascites.
--- NOTE | ~2024-02-29 | US_ITS ---
EXAM: ULTRASOUND FOREARM SOFT TISSUES RIGHT CLINICAL INFORMATION: Forearm edema medial aspect, proximal forearm. COMPARISON: None. TECHNIQUE: Targeted ultrasound images of the right upper medial proximal forearm. FINDINGS: Targeted ultrasound images were obtained by the window installation subcontractor of the area of concern as indicated by the patient in the proximal, upper medial right forearm and demonstrated swelling with edematous changes in the superficial soft tissues. No discrete fluid collection to suggest an abscess is appreciated. Radiologist was not in attendance. Images were later provided for interpretation. US/US extremity nonvascular sanchez IMPRESSION: Swelling with edematous changes in the superficial soft tissues of the proximal, upper medial right forearm. No discrete fluid collection to suggest an abscess is appreciated. Correlation with clinical exam recommended. This study was presented today, 06/05/2024 for interpretation. Stat results provided at this time as requested by referring provider.
--- NOTE | ~2024-02-29 | CT_ITS ---
EXAMINATION: CT CHEST WITHOUT CONTRAST CLINICAL INFORMATION: CHF/pneumonia. Dyspnea. COMPARISON: Previous chest x-ray most recent from earlier the same day TECHNIQUE: Multidetector volumetric CT imaging of the chest was done. Axial MIP volume rendering provided. Sagittal and coronal reformatted images were obtained. This CT examination was performed using dose optimization techniques as appropriate, variously including the following: *Automated exposure control *Adjustment of mA and/or kV according to patient size (this includes techniques or standardized protocols for targeted exams where dose is matched to indication/reason for exam; i.e. extremities or head) *Use of iterative reconstruction technique DLP: 489 mGy-cm FINDINGS: Limited due to respiratory motion. LUNGS: Mixed interstitial and alveolar opacities in the lungs with upper lobar predominance. There is denser atelectasis or consolidation with air bronchograms seen at in both lower lobes at the lung bases. Lung cysts in the left upper lobe and right middle lobe. MEDIASTINUM: Enlarged cardiac silhouette. Mild coronary artery calcification. No pericardial effusion. Small mediastinal lymph nodes. CORONARY ARTERY CALCIFICATION: Mild PLEURA: Moderate right and small left pleural effusions. AXILLA: No enlarged axillary lymph nodes. Bilateral gynecomastia. UPPER ABDOMEN: Cirrhotic appearing liver, splenomegaly and ascites. OSSEOUS STRUCTURES: Degenerative changes of the spine. CT/CT chest wo IV con IMPRESSION: Limited exam due to respiratory motion. Mixed alveolar and interstitial disease in the lungs with upper lobe predominance. Ammonia and pulmonary edema should be considered. Denser atelectasis/consolidation in both lower lobes. Enlarged heart. Bilateral pleural effusions, right greater than left. Fleischner guidelines were followed.
[2024-02-29 17:50] VITALS: BP 134/61; PULSE 67; RESP 20; TEMP 36.3; O2SAT 96; BMI 35.2
--- NOTE | 2024-02-29 17:51 | ED_ITS ---
HPI - General Adult General Chief complaint: Dyspnea Stated complaint: trouble breathing Time Seen by Provider: 02/29/24 18:08 Source: patient Mode of arrival: EMS Limitations: no limitations History of Present Illness HPI narrative: Patient 58 years old withunderlying history of alcohol abuse and resultant alcoholic cirrhosis, recent admission in December of 2023 for upper GI bleed from gastropathy and grade 1 varices presents today complaining of 2-3 week history of GI bleed symptomatic with dark stools and over the last 3 days with coffee- ground vomiting. On ER evaluation with with hemoglobin of 3.8 started on blood product support. 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 Admitted to ICU for low BP and low Hb of 3.8 on admission requiring IV Vasopressor and blood products transfusion of PRBCs, FFP and Platelets. Started on PPI IV, IV Famotidine, Octreotide and Carafate with fair response as hemoglobin stabilized 8.5-9. GI reevaluated him as he had one episode of bloody vomits with no drop in Hb and recommended no endoscopy at this point He was also treated for Acute hypoxic respiratory failure 2/2 aspiration pneumonia as CXR showed infiltrates. Treated with IV Zosyn with fair response as he was weaned off O2 supplement. Patient admitted on 03/02 discharge today at 14:00 with VNA services at home per records patient's saturation was 96% on 2 L no documentation of pulse ox measurement at room air or ambulatory pulse ox patient went home and comes back here as feeling short of breath saturating 88% at room air patient feel weak and thinks he left too early no home oxygen was arranged Related Data Home Medications ?Medication ?Instructions ?Recorded ?Confirmed lactulose 10 gram/15 mL oral 30 ml PO TID PRN Constipation 11/11/21 02/23/24 solution (Constulose) propranolol 10 mg tablet 1 tab PO TID 11/11/21 02/23/24 topiramate 200 mg tablet (Topamax) 1 tab PO BID 11/11/21 02/23/24 fluoxetine 20 mg capsule (Prozac) 60 mg PO DAILY 02/06/22 02/23/24 furosemide 40 mg tablet 1 tab PO BID 10/17/22 02/23/24 spironolactone 100 mg tablet 1 tab PO DAILY 10/17/22 02/23/24 tamsulosin 0.4 mg capsule 0.4 mg PO BEDTIME 10/17/22 02/23/24 hydroxyzine HCl 25 mg tablet 25 - 50 mg PO BID PRN anxiety 11/13/23 02/23/24 melatonin 10 mg tablet 10 mg PO BEDTIME PRN Insomnia 11/13/23 02/23/24 mirtazapine 15 mg tablet 15 mg PO BEDTIME 11/13/23 02/23/24 quetiapine 50 mg tablet (Seroquel) 50 mg PO BID 12/27/23 02/23/24 risperidone 2 mg tablet 2 mg PO BEDTIME 12/27/23 02/23/24 Previous Rx's ?Medication ?Instructions ?Recorded pantoprazole 40 mg tablet,delayed 40 mg PO BID #60 tabs 12/30/23 release sucralfate 1 gram tablet 1 g PO BIDAC #60 tabs 12/30/23 ammonium lactate 12 % lotion 1 appl topical BID #400 grams 02/29/24 amoxicillin 875 mg-potassium 1 tab PO BID #14 tabs 02/29/24 clavulanate 125 mg tablet Allergies Allergy/AdvReac Type Severity Reaction Status Date / Time Fish Containing Products Allergy Severe THROAT Verified 02/29/24 17:54 SWELLING peanut [Peanut] Allergy Severe THROAT Verified 02/29/24 17:54 SWELLING Review of Systems 2 Review of Systems: Yes all other systems are reviewed and are negative PMFSH Past Medical History Medical History PTSD (post-traumatic stress disorder) Hyponatremia Acute hyponatremia NATHANIEL (acute kidney injury) Acute metabolic encephalopathy Falls Alcoholic cirrhosis of liver with ascites Prostate cancer Depression Hyperlipidemia Hypertension Anxiety Social History Social History Household Members: Significant Other Household Members Other:: fiancee Housing: Condominium Do you presently have visiting nurse or other home services: No Unable to assess alcohol history related to: Refusing to respond Alcohol intake: former Patient Tobacco Use Status: Current everyday Tobacco user Tobacco use type: Cigarette Cigarettes Per Day: 5 Years Smoked: 25 Second Hand Smoke Exposure: No Use of substances other than those prescribed or required for medical reasons: Refusing to respond Substance Use Type: Marijuana Advance Directives: Yes Advance Directives Information Provided: No Advance Directives on File: No Advance Directives Date on File: 11/11/21 Do you have a plan to hurt others: No Plan service: No Current occupational status: disabled Physical Exam ED Vital Signs: Vital Signs - 24 hr 02/29/24 17:50 02/29/24 18:35 02/29/24 19:28 Temperature 97.4 F Pulse Rate 67 69 78 Respiratory Rate 20 14 16 Blood Pressure 134/61 133/68 Pulse Oximetry 96 98 Oxygen Delivery Method Nasal Cannula Nasal Cannula Oxygen Flow Rate 2 02/29/24 23:20 02/29/24 23:46 Temperature Pulse Rate 68 Respiratory Rate 16 Blood Pressure 132/70 137/55 L Pulse Oximetry 93 Oxygen Delivery Method Nasal Cannula Oxygen Flow Rate 3 BMI result Body Mass Index 35.2 Appearance: Alert. Oriented X3. No acute distress. Eyes: Pallor++ ENT: Pharynx normal. Oral Mucosa moist Neck: Normal inspection. Neck supple. CVS: Normal heart rate and rhythm. Pulses normal. Respiratory: Hypoxic at room air 88%. Equal air entry bilateral, bilateral wheezing with few rales at Basis Abdomen: Soft and nontender. Bowel sounds are present, no mass palpable, no CVA tenderness Skin: Skin warm and dry. Normal skin color. Normal skin turgor. Extremities: 2+ lower extremity edema. No calf tenderness Neuro: Oriented X 3. No motor deficit. No sensory deficit.No cerebellar signs , cranial nerves II-XII intact Course Course Course Narrative: RME performed by Lisa Camacho PA-C. Patient is a 58 year old assigned male at presenting to the emergency department with shortness of breath. Patient states that he was admitted for a few days and just discharged but is now having a much harder time breathing. Detailed physical exam and review of systems are deferred to the public works laborer. EKG, labs, imaging, and swabs ordered. Charge nurse aware. Medications Administered Discontinued Medications Generic Name Dose Route Start Last Admin Trade Name Freq PRN Reason Stop Dose Admin Albuterol/Ipratropium 3 ml 02/29/24 18:31 02/29/24 18:35 Albuterol/Iprat 2.5/0.5mg 3 Ml Ampul.Neb INHALE 02/29/24 18:32 3 ml ONCE ONE Administration Furosemide 20 mg 02/29/24 22:57 02/29/24 23:46 Furosemide 20 Mg/2 Ml Vial IVPUSH 02/29/24 22:58 20 mg ONCE ONE Administration Protocol Medical Decision Making Medical Decision Making [facility] Narrative: Patient with multiple comorbid condition with recent admission and discharge comes here with hypoxia with CHF with bilateral aspiration/atelectasis normal WBC count already on antibiotics will admit him for CHF exacerbation as has a elevated BNP and kidney with possible aspiration pneumonia will give him source Differential Diagnosis Differential Diagnoses: The differential diagnosis associated with the presentation includes CHF/pneumonia/COPD/pleural effusion Admission/Observation Consideration of admission/observation: Escalation of care including admission/observation considered Consult Healthcare Provider Management of the patient was discussed with: Hospitalist Lab Data [facility] Lab Attestation statement: I reviewed the patient's lab results. 02/29/24 18:13 02/29/24 18:13 Labs: Lab Results 02/29/24 02/29/24 02/29/24 Range/Units 18:13 18:19 19:36 WBC 10.2 (4.8-10.8) X10*3/uL RBC 2.92 L (4.60-5.80) X10*6/uL Hgb 8.8 L (14.0-18.0) g/dl Hct 27.9 L (42.0-52.0) % MCV 95.5 (80.0-98.0) fL MCH 30.1 (27.0-33.0) pg MCHC 31.5 (31.0-36.0) g/dl RDW 18.5 H (11.0-16.0) % Plt Count 136 L (160-400) X10*3/uL MPV 9.8 (9.4-12.4) fL Immature Gran % (Auto) 0.8 H (0.0-0.4) % Neut % (Auto) 69.4 (45-73) % Lymph % (Auto) 16.4 L (20-40) % Ashe % (Auto) 10.4 (2-11) % Eos % (Auto) 2.8 (0-4) % Baso % (Auto) 0.2 (0-2) % Lymph # (Auto) 1.7 (1.2-4.9) X10*3/uL Ashe # (Auto) 1.1 (0.1-1.2) X10*3/uL Eos # (Auto) 0.3 (0.0-0.4) X10*3/uL Baso # (Auto) 0.0 (0.0-0.2) X10*3/uL Abs Immat Gran (auto) 0.08 H (0.00-0.03) X10*3/uL Absolute Neuts (auto) 7.1 (2.0-8.3) x10*3/uL Absolute Nucleated RBC 0.000 (0.0-0.012) X10*3/uL Nucleated RBC % (auto) 0.0 (0.0-0.2) /100WBC PT 16.0 H (11.1-13.3) SEC INR 1.3 H (0.9-1.1) APTT 34.7 (26.0-36.8) SEC Sodium 144 (135-145) mmol/L Potassium 3.6 (3.3-5.1) mmol/L Chloride 112 H (96-108) mmol/L Carbon Dioxide 26 (22-29) mmol/L Anion Gap 10 L (12-20) BUN 14 (9-16) mg/dL Creatinine 0.96 (0.5-1.4) mg/dL Estim Creat Clear Calc 95.4 Estimated GFR > 60 Random Glucose 110 (60-115) mg/dL Calcium 8.3 L (8.4-10.2) mg/dL Magnesium 2.0 (1.6-2.6) mg/dL Total Bilirubin 3.1 H (0.0-1.0) mg/dL AST 21 (5-37) U/L ALT 9 (0-40) U/L Alkaline Phosphatase 85 (39-117) U/L Ammonia 93 H (13-55) umol/L Troponin I High Sens < 2.7 (<3.5-35.0) ng/L B-Natriuretic Peptide 335 H (<100) pg/mL Total Protein 6.0 L (6.5-8.0) g/dL Albumin 2.8 L (3.5-5.0) g/dL Ethyl Alcohol < 10 mg/dL Influenza Type A (PCR) NEGATIVE (Negative) Influenza Type B (PCR) NEGATIVE (Negative) RSV RNA Qual (PCR) NEGATIVE (Negative) SARS-CoV-2 RNA (RT-PCR) NEGATIVE (Negative) Independent Interpretation I performed an independent interpretation of an: EKG and CT Scan Interpretation: Normal sinus rhythm slightly prolonged QT interval to [address] T wave changes no acute ischemia Radiology Impression Discussion of test interpretation with radiology: I have reviewed the radiologist's reading. Radiologist Impression: RDER #: [id number] CT/CT chest wo IV con IMPRESSION: Limited exam due to respiratory motion. Mixed alveolar and interstitial disease in the lungs with upper lobe predominance. Ammonia and pulmonary edema should be considered. Denser atelectasis/consolidation in both lower lobes. Enlarged heart. Bilateral pleural effusions, right greater than left. Fleischner guidelines were followed. Discharge Plan Discharge Clinical Impression: Acute hypoxemic respiratory failure, Anemia, Aspiration pneumonia, Congestive heart failure Patient Disposition: Admitted As Inpatient Print Language: Tamazight
--- NOTE | 2024-02-29 17:53 | ECG_ITS ---
Test Reason : SOB Blood Pressure : / mmHG Vent. Rate : 067 BPM Atrial Rate : 067 BPM P-R Int : 178 ms QRS Dur : 102 ms QT Int : 460 ms P-R-T Axes : 043 -05 031 degrees QTc Int : 486 ms Normal sinus rhythm Prolonged QT Abnormal ECG When compared with ECG of 24-FEB-2024 13:40, Nonspecific T wave abnormality has replaced inverted T waves in Inferior leads QT has shortened Referred By: Lisa aCmacho Electronically Signed By:ELIECER RAWLS MD
[2024-02-29 18:20] LABS: MANUAL DIFF FLAG NO
[2024-02-29 18:29] LABS: Basophils Percent Auto 0.2 % (0-2); Eosinophils Absolute Auto 0.3 X10*3/uL (0.0-0.4); Eosinophils Percent Auto 2.8 % (0-4); Hematocrit 27.9 % (42.0-52.0); Hemoglobin 8.8 g/dl (14.0-18.0); Imm Gran Abs Auto 0.08 X10*3/uL (0.00-0.03); Imm Gran Pct Auto 0.8 % (0.0-0.4); Lymphocytes Absolute Auto 1.7 X10*3/uL (1.2-4.9); Lymphocytes Percent Auto 16.4 % (20-40); Mean Corpuscular HGB Conc 31.5 g/dl (31.0-36.0); Mean Corpuscular Hemoglobin 30.1 pg (27.0-33.0); Mean Corpuscular Volume 95.5 fL (80.0-98.0); Mean Platelet Volume 9.8 fL (9.4-12.4); Monocytes Absolute Auto 1.1 X10*3/uL (0.1-1.2); Monocytes Percent Auto 10.4 % (2-11); Neutrophils Absolute Auto 7.1 x10*3/uL (2.0-8.3); Neutrophils Percent Auto 69.4 % (45-73); Platelet Count 136 X10*3/uL (160-400); Red Blood Count 2.92 X10*6/uL (4.60-5.80); Red Cell Distribution Width 18.5 % (11.0-16.0); White Blood Count 10.2 X10*3/uL (4.8-10.8)
[2024-02-29 18:35] VITALS: PULSE 69; RESP 14; O2SAT 98
[2024-02-29 18:35] LABS: Ethanol < 10 mg/dL
[2024-02-29] MEDS: Albuterol/Iprat 2.5/0.5MG 3 ML AMPUL.NEB INHALE (18:35)
[2024-02-29 18:37] LABS: Alanine Aminotransferase 9 U/L (0-40); Albumin Level 2.8 g/dL (3.5-5.0); Alkaline Phosphatase 85 U/L (39-117); Anion Gap 10 (12-20); Aspartate Amino Transferase 21 U/L (5-37); Bilirubin Total 3.1 mg/dL (0.0-1.0); Blood Urea Nitrogen 14 mg/dL (9-16); Calcium 8.3 mg/dL (8.4-10.2); Carbon Dioxide 26 mmol/L (22-29); Chloride 112 mmol/L (96-108); Creatinine Clr Calc Pharmacy 95.4; Estimated Glomerular Filt Rate > 60; Glucose Random 110 mg/dL (60-115); INTERNATIONAL NORM RATIO 1.3 (0.9-1.1); Potassium 3.6 mmol/L (3.3-5.1); Sodium 144 mmol/L (135-145)
[2024-02-29 18:40] LABS: Partial Thromboplastin Time 34.7 SEC (26.0-36.8)
[2024-02-29 18:45] LABS: Troponin-I High Sensitivity < 2.7 ng/L (<3.5-35.0)
[2024-02-29 18:58] LABS: Influenza A PCR NEGATIVE (Negative); Influenza B PCR NEGATIVE (Negative); Resp Syncy Virus RNA Qual PCR NEGATIVE (Negative); SARS COV2 PCR INHOUSE NEGATIVE (Negative)
[2024-02-29 19:28] VITALS: BP 133/68; PULSE 78; RESP 16; O2SAT 98
--- NOTE | 2024-02-29 19:28 | PC.NURSE ---
pt is axox4. speech clear however patient verbalizes he does not feel it is his baseline, staff who spoke to patient prior to d/c this am states speech was different in AM. pt denies alcohol/drug use. PERRLA. no facial droop noted. no focal deficits noted of BUE & BLE. pt reports he feels his memory has been off since this morning. follows commands appropriately. Dr. Villalta notified and recommended recheck ammonia levels (last drawn 02/23/24) as well as head CT to rule out stroke like symptoms. pt states hes unsure of falls, no trauma noted. orders as followed. Megan PCT at bedside to obtain labs. vss. nsr on monitor. resp even and unlabored. pt on 2L NC at baseline. call andres within reach.
[2024-02-29 19:31] LABS: B Type Natriuretic Peptide 335 pg/mL (<100)
[2024-02-29 19:49] LABS: Ammonia 93 umol/L (13-55)
[2024-02-29 23:20] VITALS: BP 132/70; PULSE 68; RESP 16; O2SAT 93
[2024-02-29 23:46] VITALS: BP 137/55
[2024-02-29] MEDS: Furosemide 20 MG/2 ML VIAL IVPUSH (23:46)
[2024-03-01] VITALS (12 sets, daily range): BP systolic 105–133; BP diastolic 46–74; PULSE 60–70; RESP 16–20; TEMP 36.6–37.1; O2SAT 93–99
--- NOTE | 2024-03-01 00:39 | PC.NURSE ---
no blood cultures per Dr. Villalta. no changes to previous assessment by this RN. at bedside states patient is at baseline.
[2024-03-01 00:56] LABS: Appearance Urine Clear; Color Urine Yellow; Glucose Urine UA Negative (Negative); Leukocyte Esterase Urine Trace (Negative); Nitrite Urine Negative (Negative); PH 7.5 (5.0-9.0); UMIC TRIGGER UACC YES; Urine Blood Moderate (2+) (Negative); Urine Ketones Negative (Negative); Urine Protein Negative (Neg-Trace)
[2024-03-01 00:58] LABS: Bacteria Urine None Seen (None Seen); Hyaline Casts Urine 0-2 /LPF (0-2); RBC Urine >20 /HPF (0-2); Squamous Epithelial Cell Urine 0-2 /HPF (0-2); WBC Urine 0-5 /HPF (0-5)
[2024-03-01] MEDS: Lactulose 20 GM/30 ML SOLUTION PO (01:18)
[2024-03-01] MEDS: Piperacillin Sodium/Tazobactam 3.375 GM in 0.9 % Sodium Chloride 50 ML IV ×4 (01:18→20:20)
--- NOTE | 2024-03-01 02:47 | PC.NURSE ---
per skip 0230 dose of lactulose d/t previous administration.
[2024-03-01] MEDS: vancomycin/NS 2,000 MG/500 ML PLAST..BAG 250 MG IV (04:06)
--- NOTE | 2024-03-01 05:48 | P.HPHOSP_ITS ---
History of Present Illness Date of Service: 03/01/24 Attending physician on admission: Patricia Browne Chief Complaint: Shortness of breath Leandro Rico is a 58 years old man with past medical history significant for chronic liver disease/alcoholic liver cirrhosis with portal hypertension, esophageal varices, AVM, GERD and mood disorder presents to the ED complaining of worsening shortness of breath. Patient was discharged yesterday after he was hospitalized with upper GI bleeding secondary to severe erosive esophagitis. During the hospitalization he developed aspiration pneumonia for which he received a course of antibiotics. Patient is a poor historian and was quite confused and could not provide his HPI. In the ED, he was found to have oxygen saturation 88 % and currently requiring 2 liters/minute supplemental oxygen. The rest of the vital signs are normal. Blood workup including CBC and CMP is unremarkable when compared with prior. Ammonia level is 93, higher dark prior. BNP is 335. Chest CTA showed limited exam due to respiratory motion, mixed alveolar interstitial disease in the lungs and upper lobes predominance: Pneumonia and pulmonary edema. There is also bilateral pleural effusion (right more than left). Head CT scan showed no acute intracranial abnormality. ED tx: Zosyn 3.375 g IV, Lasix 20 mg IV, albuterol nebs X2 and lactulose 20 mg PO. Review of Systems 2 Review of Systems: Yes Unobtainable due to mental condition and Unobtainable due to mental status PMFSH Medical History PTSD (post-traumatic stress disorder) Hyponatremia Acute hyponatremia NATHANIEL (acute kidney injury) Acute metabolic encephalopathy [place] Alcoholic cirrhosis of liver with ascites Prostate cancer Depression Hyperlipidemia Hypertension Anxiety Social History Household Members: Significant Other Household Members Other:: fiancee Housing: Condominium Do you presently have visiting nurse or other home services: No Unable to assess alcohol history related to: Refusing to respond Alcohol intake: former Patient Tobacco Use Status: Current everyday Tobacco user Tobacco use type: Cigarette Cigarettes Per Day: 5 Years Smoked: 25 Second Hand Smoke Exposure: No Use of substances other than those prescribed or required for medical reasons: Refusing to respond Substance Use Type: Marijuana Advance Directives: Yes Advance Directives Information Provided: No Advance Directives on File: No Advance Directives Date on File: 11/11/21 Do you have a plan to hurt others: No Plan service: No Current occupational status: disabled Meds Allergies Allergy/AdvReac Type Severity Reaction Status Date / Time Fish Containing Products Allergy Severe THROAT Verified 02/29/24 17:54 SWELLING peanut [Peanut] Allergy Severe THROAT Verified 02/29/24 17:54 SWELLING Active Medications: Current Medications Albuterol Sulfate (Albuterol Sulfate (0.083%) 2.5 Mg/3 Ml Vial.Neb) 2.5 mg INHALE Q2H PRN PRN Reason: Shortness of Breath/Wheezing Albuterol/Ipratropium (Albuterol/Iprat 2.5/0.5mg 3 Ml Ampul.Neb) 3 ml INHALE RQ4H WHILE AWAKE [place] Furosemide (Furosemide 20 Mg/2 Ml Vial) 20 mg IVPUSH DAILY [facility]; Protocol Piperacillin Sod/Tazobactam (Sod 3.375 gm/ Sodium Chloride) 50 mls @ 100 mls/hr IV Q6H [place] Lactulose (Lactulose 20 Gm/30 Ml Solution) 30 gm PO TID [facility] Last Admin: 03/01/24 02:47 Dose: Not Given Pharmacy Consult (Consult Rx Vancomycin Dosing) 1 each MISCELLANE DAILY PRN PRN Reason: Consult order Sodium Chloride (0.9 % Sodium Chloride Flush 3 Ml Syringe) 3 ml IVFLUSH QSHIFT [facility] Home Medications ?Medication ?Instructions ?Recorded ?Confirmed ?Last Taken ?Type lactulose 10 gram/15 mL oral 30 ml PO TID PRN Constipation 11/11/21 02/23/24 02/28/22 History solution (Constulose) propranolol 10 mg tablet 1 tab PO TID 11/11/21 02/23/24 02/22/24 History topiramate 200 mg tablet (Topamax) 1 tab PO BID 11/11/21 02/23/24 02/22/24 History fluoxetine 20 mg capsule (Prozac) 60 mg PO DAILY 02/06/22 02/23/24 02/22/24 History furosemide 40 mg tablet 1 tab PO BID 10/17/22 02/23/24 02/22/24 History spironolactone 100 mg tablet 1 tab PO DAILY 10/17/22 02/23/24 02/22/24 History tamsulosin 0.4 mg capsule 0.4 mg PO BEDTIME 10/17/22 02/23/24 02/22/24 History hydroxyzine HCl 25 mg tablet 25 - 50 mg PO BID PRN anxiety 11/13/23 02/23/24 Unknown History melatonin 10 mg tablet 10 mg PO BEDTIME PRN Insomnia 11/13/23 02/23/24 Unknown History mirtazapine 15 mg tablet 15 mg PO BEDTIME 11/13/23 02/23/24 02/22/24 History quetiapine 50 mg tablet (Seroquel) 50 mg PO BID 12/27/23 02/23/24 02/22/24 History risperidone 2 mg tablet 2 mg PO BEDTIME 12/27/23 02/23/24 02/22/24 History Physical Exam 2 Vital Signs and Narrative: Vital Signs: Last Vital Signs Temp 97.4 F 02/29/24 17:50 Pulse 68 02/29/24 23:20 Resp 16 02/29/24 23:20 BP 137/55 L 02/29/24 23:46 Pulse Ox 93 02/29/24 23:20 O2 Del Method Nasal Cannula 02/29/24 23:20 O2 Flow Rate 3 02/29/24 23:20 Oxygen Flow Rate 2 02/29/24 17:50 BMI result Body Mass Index 35.2 Constitutional - Somnolent. Confused. Afebrile. HEENT - Pupils equally round. Icteric sclerae. Dry oral mucosa.. Heart - S1S2, RRR. Lungs - Normal lung expansion, Normal respiratory effort, No respiratory distress. Tachypnea. Minimal end-expiratory wheezes. Decreased breath sounds at bases. Abdomen - Distended. Positive fluid wave. Nontender numbness. Extremities - Pitting edema to the lower extremities Skin - Warm/Dry Neurological - lethargic. Oriented only to person. [place] (+) Psychological - Depressed. No agitation. Results Labs 02/29/24 18:13 02/29/24 18:13 Labs: Laboratory Results - last 24 hr 02/29/24 02/29/24 02/29/24 18:13 18:19 19:36 MCV 95.5 MCH 30.1 MCHC 31.5 RDW 18.5 H Plt Count 136 L MPV 9.8 Immature Gran % (Auto) 0.8 H Neut % (Auto) 69.4 Lymph % (Auto) 16.4 L [place] % (Auto) 10.4 Eos % (Auto) 2.8 Baso % (Auto) 0.2 Lymph # (Auto) 1.7 [place] # (Auto) 1.1 Eos # (Auto) 0.3 Baso # (Auto) 0.0 Abs Immat Gran (auto) 0.08 H Absolute Neuts (auto) 7.1 Absolute Nucleated RBC 0.000 Nucleated RBC % (auto) 0.0 PT 16.0 H INR 1.3 H APTT 34.7 Anion Gap 10 L Estim Creat Clear Calc 95.4 Estimated GFR > 60 Random Glucose 110 Calcium 8.3 L Magnesium 2.0 Total Bilirubin 3.1 H AST 21 ALT 9 Alkaline Phosphatase 85 Ammonia 93 H Troponin I High Sens < 2.7 B-Natriuretic Peptide 335 H Total Protein 6.0 L Albumin 2.8 L Urine Color Urine Appearance Urine pH Ur Specific [place] Urine Protein Urine Glucose (UA) Urine Ketones Urine Blood Urine Nitrite Ur Leukocyte Esterase Urine RBC Urine WBC Ur Squamous Epith Cells Urine Bacteria Hyaline Casts Ethyl Alcohol < 10 Influenza Type A (PCR) NEGATIVE Influenza Type B (PCR) NEGATIVE RSV RNA Qual (PCR) NEGATIVE SARS-CoV-2 RNA (RT-PCR) NEGATIVE 03/01/24 00:46 MCV MCH MCHC RDW Plt Count MPV Immature Gran % (Auto) Neut % (Auto) Lymph % (Auto) [place] % (Auto) Eos % (Auto) Baso % (Auto) Lymph # (Auto) [place] # (Auto) Eos # (Auto) Baso # (Auto) Abs Immat Gran (auto) Absolute Neuts (auto) Absolute Nucleated RBC Nucleated RBC % (auto) PT INR APTT Anion Gap Estim Creat Clear Calc Estimated GFR Random Glucose Calcium Magnesium Total Bilirubin AST ALT Alkaline Phosphatase Ammonia Troponin I High Sens B-Natriuretic Peptide Total Protein Albumin Urine Color Yellow Urine Appearance Clear Urine pH 7.5 Ur Specific [place] 1.010 Urine Protein Negative Urine Glucose (UA) Negative Urine Ketones Negative Urine Blood Moderate (2+) H Urine Nitrite Negative Ur Leukocyte Esterase Trace H Urine RBC >20 H Urine WBC 0-5 Ur Squamous Epith Cells 0-2 Urine Bacteria None Seen Hyaline Casts 0-2 Ethyl Alcohol Influenza Type A (PCR) Influenza Type B (PCR) RSV RNA Qual (PCR) SARS-CoV-2 RNA (RT-PCR) Imaging Radiologist's Impressions: Impressions Head CT 02/29/24 20:11 IMPRESSION: No acute intracranial pathology. Chest X-Ray 02/29/24 20:15 IMPRESSION: Bilateral diffuse nodular opacities probably representing pneumonia. Chest CT 02/29/24 23:13 IMPRESSION: Limited exam due to respiratory motion. Mixed alveolar and interstitial disease in the lungs with upper lobe predominance. Ammonia and pulmonary edema should be considered. Denser atelectasis/consolidation in both lower lobes. Enlarged heart. Bilateral pleural effusions, right greater than left. Fleischner guidelines were followed. Assessment and Plan (1) Aspiration pneumonia: Qualifiers: Aspiration pneumonia type: unspecified Laterality: unspecified laterality Lung location: unspecified part of lung Qualified Code(s): J69.0 - Pneumonitis due to inhalation of food and vomit Status: Acute (2) Pulmonary edema: Qualifiers: Chronicity: acute Qualified Code(s): J81.0 - Acute pulmonary edema Status: Acute (3) Acute hypoxemic respiratory failure: Status: Acute (4) Anemia: Qualifiers: Other causes of anemia: acute posthemorrhagic Status: Acute Plan Leandro Rico is a 58 y/o man with PMHx significant for chronic liver disease/alcoholic liver cirrhosis with portal hypertension and esophageal varices admitted with: * Hypoxic respiratory failure, multifactorial: Pulmonary edema and/or aspiration pneumonia. Admit to hospitalist service. Supplemental O2 to keep O2 sats > 90 %. Bronchodilator therapy. Empiric IV antibiotic therapy with ceftriaxone and vancomycin. Continue Lasix and spironolactone. * Hepatic encephalopathy. EtOH level today < 10. Aspiration precautions. Continue lactulose 30 mL PO tid. Hold sedatives: Seroquel, hydroxyzine, mirtazapine, risperidone, Seroquel and Topamax. * Chronic anemia. Hemoglobin stable. No obvious evidence of acute bleeding. Continue to monitor H&H. * Dysphagia. A swallow evaluation. * Mood disorder. Continue Topamax. * Ascites. Continue Lasix, spironolactone and propranolol. * GERD, recently diagnosed with severe erosive gastritis. Continue sucralfate and Protonix. * BPH. Continue tamsulosin. Code status: Full DVT prophylaxis: SCDs Patient will need hospitalization for at least 2 midnights for hypoxic respiratory treatment with supplemental oxygen, bronchodilator therapy, diuretics and empiric IV antibiotic therapy. Quality Stroke Does the patient have a stroke diagnosis?: No VTE Prior VTE?: No VTE Risk Level:: Medical - moderate - high VTE Device Contraindication: N/A - Device Ordered VTE Drug Contraindication: Treatment Not Indicated
[2024-03-01 06:32] LABS: MANUAL DIFF FLAG NO
[2024-03-01 06:35] LABS: Basophils Percent Auto 0.3 % (0-2); Eosinophils Absolute Auto 0.3 X10*3/uL (0.0-0.4); Eosinophils Percent Auto 3.9 % (0-4); Hematocrit 25.9 % (42.0-52.0); Imm Gran Abs Auto 0.07 X10*3/uL (0.00-0.03); Lymphocytes Absolute Auto 1.5 X10*3/uL (1.2-4.9); Lymphocytes Percent Auto 20.2 % (20-40); Mean Corpuscular HGB Conc 30.9 g/dl (31.0-36.0); Mean Corpuscular Hemoglobin 29.5 pg (27.0-33.0); Mean Corpuscular Volume 95.6 fL (80.0-98.0); Mean Platelet Volume 10.5 fL (9.4-12.4); Monocytes Absolute Auto 0.7 X10*3/uL (0.1-1.2); Monocytes Percent Auto 9.1 % (2-11); Neutrophils Absolute Auto 4.7 x10*3/uL (2.0-8.3); Neutrophils Percent Auto 65.5 % (45-73); Platelet Count 108 X10*3/uL (160-400); Red Blood Count 2.71 X10*6/uL (4.60-5.80); Red Cell Distribution Width 18.3 % (11.0-16.0); White Blood Count 7.2 X10*3/uL (4.8-10.8)
[2024-03-01 06:57] LABS: Alanine Aminotransferase 6 U/L (0-40); Albumin Level 2.4 g/dL (3.5-5.0); Alkaline Phosphatase 76 U/L (39-117); Anion Gap 10 (12-20); Aspartate Amino Transferase 17 U/L (5-37); Bilirubin Total 2.7 mg/dL (0.0-1.0); Blood Urea Nitrogen 16 mg/dL (9-16); Carbon Dioxide 25 mmol/L (22-29); Chloride 112 mmol/L (96-108); Creatinine Clr Calc Pharmacy 89.8; Estimated Glomerular Filt Rate > 60; Glucose Random 116 mg/dL (60-115); Potassium 3.3 mmol/L (3.3-5.1); Sodium 144 mmol/L (135-145); Total Protein 5.3 g/dL (6.5-8.0)
[2024-03-01] MEDS: Albuterol/Iprat 2.5/0.5MG 3 ML AMPUL.NEB INHALE ×3 (07:26→20:05)
[2024-03-01] MEDS: 0.9 % Sodium Chloride Flush 3 ML SYRINGE IVFLUSH ×2 (09:35→15:56)
[2024-03-01] MEDS: Furosemide 20 MG/2 ML VIAL IVPUSH ×2 (09:35→17:03)
--- NOTE | 2024-03-01 09:41 | PC.NURSE ---
swallow eval w/ speech therapy noticed in the chart - swallow eval done by this RN which patient passed. previously given PO lactulose w/out issue.
[2024-03-01] MEDS: Lactulose 20 GM/30 ML SOLUTION 30 GM PO ×3 (09:49→20:20)
[2024-03-01] MEDS: guaiFENesin LA 600 MG TAB.ER.12H PO ×2 (09:49→20:22)
[2024-03-01 09:54] LABS: Creatinine Clr Calc Pharmacy 89.8; Estimated Glomerular Filt Rate > 60
--- NOTE | 2024-03-01 09:55 | PC.NURSE ---
speech therapy at bedside
--- NOTE | 2024-03-01 10:37 | PM.EVENT ---
Event Note Date of Service: 03/01/24 Event Note: Seen and evaluated this morning Mildly confused , worse than baseline Saturation 90s on 3L O2 Moderate-large ascites , to do paracentesis Start chest physiotherapy restart home meds, avoid sedative ones TECHNOLOGY DIRECTOR rec regular diet Time Spent With Patient Time: Total time managing care of this patient today ____ minutes.
--- NOTE | 2024-03-01 10:41 | PHA.PROG ---
Admission Date/Time: March 01, 2024 02:22 Indication: respiratory Weight in k.058 kg Adjusted body weight in K.483 [place] body weight in Kg: Obesity Dosing Indication % IBW: Serum Creatinine - Last 168 Hours 02/29/24 03/01/24 03/01/24 18:13 06:02 09:15 Creatinine 0.96 1.02 1.02 Estimated CrCl and GFR - Last 168 Hours 02/29/24 03/01/24 03/01/24 18:13 06:02 09:15 Estim Creat Clear Calc 95.4 89.8 89.8 Estimated GFR > 60 > 60 > 60 Vancomycin Loading Dose: 2000 mg Current Vancomycin Dosing Regimen: 1250 Q12H Vancomycin Monitoring using AUC goal of 400 - 600 range with trough as surrogate marker: 572 Date and Time for next Vancomycin Level to be drawn: 03/02 @1400 Pharmacist Comments on Vancomycin Plan: Vancomycin dosing will take advantage of [employer] KKX as a clinical decision support tool that uses Bayesian modeling to calculate individual patient's pharmacokinetic parameters and forecast the patient's drug concentration time course with the target goal AUC 24 range of 400 - 600 mg/L/hr.
[2024-03-01 10:53] LABS: Amphetamine Screen Urine Not Detected (Not Detect); Barbiturates, Urine Not Detected (Not Detect); Benzodiazepines Screen Urine Not Detected (Not Detect); Buprenorphine Scr Not Detected (Not Detect); Cannabinoid Screen Urine POSITIVE (Not Detect); Cocaine Screen Urine Not Detected (Not Detect); Fentanyl, urine POSITIVE (Not Detect); Methadone Screen, Urine Not Detected (Not Detect); Opiate Screen Urine Not Detected (Not Detect); Oxycodone Screen Urine Not Detected (Not Detect); Phencyclidine Screen Urine Not Detected (Not Detect)
--- NOTE | 2024-03-01 12:02 | MHC.CM.PN ---
Addendum entered by Tiffany Dickey 03/01/24 12:10: PT RECOMMENDING [facility] REFERRAL MADE TO [facility] Original Note: PT REPORTS HE LIVES AT HOME WITH HIS FIANCE AND IS INDEPENDENT WITH [facility] PT RECENTLY DISCHARGED FROM STR AT [facility] WITH AN [facility] REFERRAL BUT THEY HAVE NOT YET STARTED PT IS ALSO ACTIVE WITH [facility] AND USES A WALKER PT HAS A HCP ON FILE HE SAYS HIS PCP IS NOW KENDAL [facility] IMM DELIVERED DCP: TBD PENDING PT EVAL HOME WITH RESUMPTION OF [facility] VS STR TRANSPORT TBD
--- NOTE | 2024-03-01 12:50 | MHC.SL.SWA ---
Speech Pathologist Impression: WFL Risk of Aspiration Due to: History of Pneumonia Dysphasia Diet Status: Continue Regular Solids and Thin Liquids. Liquid Consistency and Strategies for Safe Swallow: Liquid Intake Recommendation: Thin Liquid Intake Strategies: Small Sips Solid Food Consistency: Dietary Recommendations: Regular Oral Medication Intake: Whole with Liquid Please contact the pharmacy regarding appropriate crushable or liquid drug formulations that are available whenever modified delivery is recommended. Compensatory Strategies and Precautions to be Taken for Safe Swallow: Sitting Upright (90 deg) Small Bites and Sips Alternate Liquids/Solids Rate of Ingestion Change Supervision While Eating and Drinking for Safe Swallow: Intermittent Supervision Swallowing Recommended Treatments: Compens. Strategy Educat. Recommendation for Speech: Inpatient Speech Therapy Comment: 1-2 f/u Frequency/Duration: PRN M-F Date Range for Service Req: Timeline to reassess: Head Men'S Tennis Coach Clinican/Clinical Fellow: No Supervisory Statement: I have reviewed and agree with the student/clinical fellow's documentation: N/A Speech Language Pathologist: Ninfa Dahl M.A., CCC-PRODUCT ADVISOR
--- NOTE | 2024-03-01 12:53 | PC.NURSE ---
Addendum entered by Maryann Love 03/01/24 12:57: emptied two urinals at bedside w/ approx 400mL urine. patient voided into urinal with help from RN approx 300mL output. Original Note: patient found to be incontinent of dark stool, bed linens changed and patient repositioned in bed. remains alert and oriented to self, continues to be altered from his baseline. respirations even and unlabored.
--- NOTE | 2024-03-01 12:54 | PHA.MEDREC ---
Pharmacy Consult ? Medication Reconciliation Pharmacy has completed the medication reconciliation. spoke with over the phone to confirm medications, she read off of his bottles at home. Patient is no longer taking ferrous sulfate and hydroxyzine. She reports that the antibiotic was never started as well as the ammonium lactate he was previously discharged with.
[2024-03-01] MEDS: Omeprazole 40 MG CAPSULE.DR PO ×2 (13:07→15:57)
[2024-03-01] MEDS: FLUoxetine HCl 20 MG CAPSULE 60 MG PO (13:11)
[2024-03-01] MEDS: Spironolactone 25 MG TABLET 100 MG PO (13:11)
--- NOTE | 2024-03-01 15:53 | PC.NURSE ---
incontinent of dark stool, linens changed and patient repositioned in the bed. IV antibiotics infusing
[2024-03-01] MEDS: Sucralfate 1 GM TABLET PO (15:56)
[2024-03-01] MEDS: Propranolol HCL 10 MG TABLET PO ×2 (15:56→20:23)
[2024-03-01] MEDS: vancomycin HCL 1,250 MG in 0.9 % Sodium Chloride 250 ML 166.67 MG IV (17:03)
--- NOTE | 2024-03-01 17:14 | PC.NURSE ---
patient encourage to drink water slowly, continues to drink fast and vomit the water back up. no vomiting of food or other. ice chips provided.
--- NOTE | 2024-03-01 18:45 | PC.NURSE ---
reached out to provider for progressively darker stools throughout the shift. plan to obtain occult stool and potentially hold lactulose pending sample
--- NOTE | 2024-03-01 19:11 | PC.NURSE ---
Assumed care of pt. Pt lying on stretcher, endorsing new BM. Messaging inpt provider for possible rectal tube.
[2024-03-01] MEDS: Tamsulosin HCL 0.4 MG CAPSULE PO (20:22)
[2024-03-01] MEDS: QUEtiapine Fumarate 25 MG TABLET PO (20:23)
[2024-03-01] MEDS: Topiramate 100 MG TABLET 200 MG PO (20:23)
[2024-03-01] MEDS: risperiDONE 2 MG TABLET PO (20:23)
[2024-03-01] MEDS: Mirtazapine 15 MG TABLET PO (20:23)
[2024-03-01 23:56] LABS: MANUAL DIFF FLAG NO
[2024-03-02] VITALS (10 sets, daily range): BP systolic 91–111; BP diastolic 39–58; PULSE 63–110; RESP 12–20; TEMP 36.2–37.1; O2SAT 95–97
[2024-03-02 00:01] LABS: Basophils Absolute Auto 0.1 X10*3/uL (0.0-0.2); Basophils Percent Auto 0.8 % (0-2); Eosinophils Absolute Auto 0.4 X10*3/uL (0.0-0.4); Eosinophils Percent Auto 4.7 % (0-4); Hematocrit 27.3 % (42.0-52.0); Hemoglobin 8.5 g/dl (14.0-18.0); Imm Gran Abs Auto 0.04 X10*3/uL (0.00-0.03); Imm Gran Pct Auto 0.5 % (0.0-0.4); Lymphocytes Absolute Auto 1.1 X10*3/uL (1.2-4.9); Mean Corpuscular HGB Conc 31.1 g/dl (31.0-36.0); Mean Corpuscular Hemoglobin 29.7 pg (27.0-33.0); Mean Corpuscular Volume 95.5 fL (80.0-98.0); Mean Platelet Volume 10.2 fL (9.4-12.4); Monocytes Absolute Auto 0.8 X10*3/uL (0.1-1.2); Monocytes Percent Auto 10.1 % (2-11); Neutrophils Absolute Auto 5.6 x10*3/uL (2.0-8.3); Neutrophils Percent Auto 69.9 % (45-73); Platelet Count 110 X10*3/uL (160-400); Red Blood Count 2.86 X10*6/uL (4.60-5.80); Red Cell Distribution Width 18.1 % (11.0-16.0); White Blood Count 7.9 X10*3/uL (4.8-10.8)
[2024-03-02] MEDS: ondansetron HCL 4 MG/2 ML VIAL IVPUSH ×3 (00:03→21:36)
[2024-03-02] MEDS: 0.9 % Sodium Chloride Flush 3 ML SYRINGE IVFLUSH ×3 (00:19→15:42)
[2024-03-02 00:29] LABS: OBS Int Ctl Valid YES; OBS1 POSITIVE (NEGATIVE)
[2024-03-02] MEDS: Piperacillin Sodium/Tazobactam 3.375 GM in 0.9 % Sodium Chloride 50 ML IV ×4 (01:50→21:33)
[2024-03-02] MEDS: vancomycin HCL 1,250 MG in 0.9 % Sodium Chloride 250 ML 166.66 MG IV (03:57)
[2024-03-02 06:34] LABS: Hematocrit 27.4 % (42.0-52.0); Hemoglobin 8.5 g/dl (14.0-18.0); Mean Corpuscular Hemoglobin 29.4 pg (27.0-33.0); Mean Corpuscular Volume 94.8 fL (80.0-98.0); Mean Platelet Volume 10.2 fL (9.4-12.4); Platelet Count 108 X10*3/uL (160-400); Red Blood Count 2.89 X10*6/uL (4.60-5.80); Red Cell Distribution Width 17.8 % (11.0-16.0); White Blood Count 7.5 X10*3/uL (4.8-10.8)
[2024-03-02 06:56] LABS: B Type Natriuretic Peptide 158 pg/mL (<100)
[2024-03-02 08:14] LABS: Anion Gap 14 (12-20); Blood Urea Nitrogen 12 mg/dL (9-16); Calcium 7.9 mg/dL (8.4-10.2); Carbon Dioxide 23 mmol/L (22-29); Chloride 107 mmol/L (96-108); Creatinine Clr Calc Pharmacy 87.2; Estimated Glomerular Filt Rate > 60; Glucose Random 108 mg/dL (60-115); Magnesium 1.9 mg/dL (1.6-2.6); Potassium 2.8 mmol/L (3.3-5.1); Sodium 141 mmol/L (135-145)
[2024-03-02] MEDS: Furosemide 20 MG/2 ML VIAL IVPUSH ×2 (09:41→17:04)
[2024-03-02] MEDS: Topiramate 100 MG TABLET 200 MG PO ×2 (09:41→21:34)
[2024-03-02] MEDS: guaiFENesin LA 600 MG TAB.ER.12H PO ×2 (09:42→21:33)
[2024-03-02] MEDS: Spironolactone 25 MG TABLET 100 MG PO (09:42)
[2024-03-02] MEDS: Omeprazole 40 MG CAPSULE.DR PO ×2 (09:42→15:38)
[2024-03-02] MEDS: FLUoxetine HCl 20 MG CAPSULE 60 MG PO (09:42)
[2024-03-02] MEDS: Potassium Chloride Packet 20 MEQ PACKET 40 MEQ PO ×2 (09:43→13:21)
[2024-03-02] MEDS: Sucralfate 1 GM TABLET PO ×2 (09:45→15:38)
[2024-03-02] MEDS: Propranolol HCL 10 MG TABLET PO ×2 (09:45→13:23)
[2024-03-02] MEDS: Albuterol/Iprat 2.5/0.5MG 3 ML AMPUL.NEB INHALE ×3 (11:22→19:37)
--- NOTE | 2024-03-02 13:14 | P.PNIM_ITS ---
Subjective Subjective Date of Service: 03/02/24 Interval History: Seen and evaluated this maykel Feels little better Weaned off o2 more alert and interactive Having diarrhea with rectal tube placed Review of Systems Review of Systems: Yes all other systems are reviewed and are negative Physical Exam 2 Vital Signs: Vital Signs: Last Vital Signs Temp 97.8 F 03/02/24 10:57 Pulse 88 03/02/24 11:26 Resp 16 03/02/24 11:26 BP 109/58 L 03/02/24 10:57 Pulse Ox 96 03/02/24 10:57 O2 Del Method Room Air 03/02/24 10:57 O2 Flow Rate 3 03/01/24 13:05 Oxygen Flow Rate 2 02/29/24 17:50 BMI result Body Mass Index 35.2 Const: Other: Constitutional : Awake, interactive, not in distress Neck : Normal inspection, Supple Cardiovascular : RRR, no JVP, +1 lower extremity edema, overall anasarca Respiratory : good bilateral air entry, no crackles, wheezes or rhonchi Gastrointestinal: soft, lax, mildly distended with small amount of ascites Skin : Warm, Dry Neurological : Alert & oriented to time and place, No focal deficit Objective Data Active Medications Albuterol Sulfate (Albuterol Sulfate (0.083%) 2.5 Mg/3 Ml Vial.Neb) 2.5 mg INHALE Q2H PRN PRN Reason: Shortness of Breath/Wheezing Albuterol/Ipratropium (Albuterol/Iprat 2.5/0.5mg 3 Ml Ampul.Neb) 3 ml INHALE RQ4H WHILE AWAKE [facility] Last Admin: 03/02/24 11:22 Dose: 3 ml Documented By: MARLYN Fluoxetine HCl (Fluoxetine Hcl 20 Mg Capsule) 60 mg PO DAILY@0900 [facility] Last Admin: 03/02/24 09:42 Dose: 60 mg Documented By: JULIUS Furosemide (Furosemide 20 Mg/2 Ml Vial) 20 mg IVPUSH BID@0900,1800 [facility]; Protocol Last Admin: 03/02/24 09:41 Dose: 20 mg Documented By: JULIUS Guaifenesin (Guaifenesin La 600 Mg Tab.Er.12h) 600 mg PO BID [facility] Last Admin: 03/02/24 09:42 Dose: 600 mg Documented By: JULIUS Piperacillin Sod/Tazobactam (Sod 3.375 gm/ Sodium Chloride) 50 mls @ 100 mls/hr IV Q6H [facility] Last Admin: 03/02/24 09:44 Dose: 100 mls/hr Documented By: JULIUS Lactic Acid (Ammonium Lactate 12 % Lotion 226 Gm Bottle) 1 appl TOPICAL BID [facility]; Protocol Mirtazapine (Mirtazapine 15 Mg Tablet) 15 mg PO BEDTIME [facility] Last Admin: 03/01/24 20:23 Dose: 15 mg Documented By: CALVIN Omeprazole (Omeprazole 40 Mg Capsule.Dr) 40 mg PO BID@0630,1630 [facility] Last Admin: 03/02/24 09:42 Dose: 40 mg Documented By: JULIUS Ondansetron HCl (Ondansetron Hcl 4 Mg/2 Ml Vial) 4 mg IVPUSH Q6H PRN PRN Reason: Nausea and Vomiting Last Admin: 03/02/24 09:41 Dose: 4 mg Documented By: JULIUS Propranolol HCl (Propranolol Hcl 10 Mg Tablet) 10 mg PO TID [facility]; Protocol Last Admin: 03/02/24 09:45 Dose: 10 mg Documented By: JULIUS Quetiapine Fumarate (Quetiapine Fumarate 25 Mg Tablet) 25 mg PO BEDTIME [facility] Last Admin: 03/01/24 20:23 Dose: 25 mg Documented By: CALVIN Risperidone (Risperidone 2 Mg Tablet) 2 mg PO BEDTIME [facility] Last Admin: 03/01/24 20:23 Dose: 2 mg Documented By: CALVIN Sodium Chloride (0.9 % Sodium Chloride Flush 3 Ml Syringe) 3 ml IVFLUSH QSHIFT [facility] Last Admin: 03/02/24 09:43 Dose: 3 ml Documented By: JULIUS Spironolactone (Spironolactone 25 Mg Tablet) 100 mg PO DAILY [facility]; Protocol Last Admin: 03/02/24 09:42 Dose: 100 mg Documented By: JULIUS Sucralfate (Sucralfate 1 Gm Tablet) 1 gm PO BIDAC [facility] Last Admin: 03/02/24 09:45 Dose: 1 gm Documented By: JULIUS Tamsulosin HCl (Tamsulosin Hcl 0.4 Mg Capsule) 0.4 mg PO BEDTIME [facility] Last Admin: 03/01/24 20:22 Dose: 0.4 mg Documented By: CALVIN Topiramate (Topiramate 100 Mg Tablet) 200 mg PO BID [facility] Last Admin: 03/02/24 09:41 Dose: 200 mg Documented By: JULIUS Labs 03/02/24 06:02 03/02/24 06:02 Labs: Laboratory Results - last 24 hr 03/01/24 03/02/24 03/02/24 23:40 00:24 06:02 MCV 95.5 94.8 MCH 29.7 29.4 MCHC 31.1 31.0 RDW 18.1 H 17.8 H Plt Count 110 L 108 L MPV 10.2 10.2 Immature Gran % (Auto) 0.5 H Neut % (Auto) 69.9 Lymph % (Auto) 14.0 L [place] % (Auto) 10.1 Eos % (Auto) 4.7 H Baso % (Auto) 0.8 Lymph # (Auto) 1.1 L [place] # (Auto) 0.8 Eos # (Auto) 0.4 Baso # (Auto) 0.1 Abs Immat Gran (auto) 0.04 H Absolute Neuts (auto) 5.6 Absolute Nucleated RBC 0.000 0.000 Nucleated RBC % (auto) 0.0 0.0 Anion Gap 14 Estim Creat Clear Calc 87.2 Estimated GFR > 60 Random Glucose 108 Calcium 7.9 L Magnesium 1.9 B-Natriuretic Peptide 158 H Stool Occult Blood POSITIVE Assessment and Plan (1) Pulmonary edema: Status: Acute (2) Congestive heart failure: Status: Acute (3) Aspiration pneumonia: Status: Acute (4) Acute hypoxemic respiratory failure: Status: Acute (5) Hepatic encephalopathy: Status: Acute Plan Leandro Rico is a 58 y/o man with PMHx significant for chronic liver disease/alcoholic liver cirrhosis with portal hypertension and esophageal varices admitted with: # Acute Hypoxic respiratory failure 2/2 Pulmonary edema and aspiration pneumonia Bronchodilator therapy IV Zosyn IV Lasix and PO spironolactone. monitor I\O Wean down as toelrated # acute Hepatic encephalopathy Aspiration precautions. Ammonia level of 93 Hold lactulose for diarrhea now restart home meds Seroquel, hydroxyzine, mirtazapine, risperidone, Seroquel and Topamax. # Diarrhea could be related to Lactulose Check stool WBCs # Chronic anemia. Hemoglobin stable. No obvious evidence of acute bleeding. Continue to monitor H&H. # Dysphagia. passed swallow evaluation. on regular diet # Mood disorder. Continue Topamax. # Ascites. US did not show significant amount. Continue Lasix, spironolactone and propranolol. # GERD, recently diagnosed with severe erosive gastritis. Continue sucralfate and Protonix. # BPH. Continue tamsulosin. Code status: Full DVT prophylaxis: SCDs Patient will need hospitalization for at least 2 midnights for hypoxic respiratory treatment with supplemental oxygen, bronchodilator therapy, diuretics and empiric IV antibiotic therapy. Quality Stroke Does the patient have a stroke diagnosis?: No VTE Prior VTE?: No VTE Risk Level:: Medical - moderate - high VTE Device Contraindication: N/A - Device Ordered VTE Drug Contraindication: Treatment Not Indicated
[2024-03-02] MEDS: Albumin Human 25 % 100 ML 133.33 ML IV ×2 (21:27→22:47)
[2024-03-02] MEDS: Ammonium Lactate 12 % Lotion 226 GM BOTTLE 1 APPL TOPICAL (21:33)
[2024-03-02] MEDS: risperiDONE 2 MG TABLET PO (21:33)
[2024-03-02] MEDS: QUEtiapine Fumarate 25 MG TABLET PO (21:34)
[2024-03-02] MEDS: Tamsulosin HCL 0.4 MG CAPSULE PO (21:34)
[2024-03-02] MEDS: Mirtazapine 15 MG TABLET PO (21:34)
[2024-03-03] VITALS (10 sets, daily range): BP systolic 92–121; BP diastolic 48–59; PULSE 67–129; RESP 16–20; TEMP 36.3–37.2; O2SAT 93–98
[2024-03-03] MEDS: Piperacillin Sodium/Tazobactam 3.375 GM in 0.9 % Sodium Chloride 50 ML IV ×4 (03:30→20:45)
[2024-03-03] MEDS: Omeprazole 40 MG CAPSULE.DR PO ×2 (06:25→15:15)
[2024-03-03] MEDS: Sucralfate 1 GM TABLET PO ×2 (06:25→15:15)
[2024-03-03] MEDS: Albuterol/Iprat 2.5/0.5MG 3 ML AMPUL.NEB INHALE ×3 (07:41→19:23)
[2024-03-03 08:47] LABS: Anion Gap 11 (12-20); Blood Urea Nitrogen 12 mg/dL (9-16); Calcium 7.6 mg/dL (8.4-10.2); Carbon Dioxide 24 mmol/L (22-29); Chloride 110 mmol/L (96-108); Creatinine Clr Calc Pharmacy 81.8; Estimated Glomerular Filt Rate > 60; Glucose Random 98 mg/dL (60-115); Sodium 142 mmol/L (135-145)
[2024-03-03] MEDS: 0.9 % Sodium Chloride Flush 3 ML SYRINGE IVFLUSH ×2 (09:08→15:14)
[2024-03-03] MEDS: guaiFENesin LA 600 MG TAB.ER.12H PO ×2 (09:10→20:38)
[2024-03-03] MEDS: Spironolactone 25 MG TABLET 100 MG PO (09:10)
[2024-03-03] MEDS: FLUoxetine HCl 20 MG CAPSULE 60 MG PO (09:10)
[2024-03-03] MEDS: Propranolol HCL 10 MG TABLET PO ×2 (09:11→15:15)
[2024-03-03] MEDS: Topiramate 100 MG TABLET 200 MG PO ×2 (09:11→20:37)
[2024-03-03] MEDS: ondansetron HCL 4 MG/2 ML VIAL IVPUSH (09:24)
[2024-03-03] MEDS: Ammonium Lactate 12 % Lotion 226 GM BOTTLE 1 APPL TOPICAL ×2 (09:24→20:47)
[2024-03-03] MEDS: Potassium Chloride Packet 20 MEQ PACKET 40 MEQ PO ×2 (11:05→12:39)
[2024-03-03] MEDS: Potassium Chloride/H20 10 MEQ/100 ML PIGGYBACK 100 MEQ IV ×2 (11:05→12:12)
[2024-03-03] MEDS: Albumin Human 25 % 100 ML IV ×2 (11:57→14:02)
--- NOTE | 2024-03-03 12:18 | P.PNIM_ITS ---
Subjective Subjective Date of Service: 03/03/24 Interval History: Seen and evaluated this monring alert and interactive but overall slow K of 2.7 Fluid overloaded BP soft Having less diarrhea with rectal tube placed Review of Systems Review of Systems: Yes all other systems are reviewed and are negative Physical Exam 2 Vital Signs: Vital Signs: Last Vital Signs Temp 98.1 F 03/03/24 11:43 Pulse 129 H 03/03/24 11:43 Resp 20 03/03/24 11:43 BP 93/50 L 03/03/24 11:43 Pulse Ox 98 03/03/24 11:43 O2 Del Method Room Air 03/03/24 11:43 O2 Flow Rate 3 03/01/24 13:05 Oxygen Flow Rate 2 02/29/24 17:50 BMI result Body Mass Index 35.2 Const: Other: Constitutional : Awake, interactive, not in distress Neck : Normal inspection, Supple Cardiovascular : RRR, no JVP, +1 lower extremity edema, overall anasarca Respiratory : good bilateral air entry, no crackles, wheezes or rhonchi Gastrointestinal: soft, lax, mildly distended with small amount of ascites Skin : Warm, Dry Neurological : Alert & oriented to time and place, No focal deficit Objective Data Active Medications Albuterol Sulfate (Albuterol Sulfate (0.083%) 2.5 Mg/3 Ml Vial.Neb) 2.5 mg INHALE Q2H PRN PRN Reason: Shortness of Breath/Wheezing Albuterol/Ipratropium (Albuterol/Iprat 2.5/0.5mg 3 Ml Ampul.Neb) 3 ml INHALE RQ4H WHILE AWAKE [facility] Last Admin: 03/03/24 11:32 Dose: Not Given Documented By: MARLYN Non-Admin Reason: Patient Refused Fluoxetine HCl (Fluoxetine Hcl 20 Mg Capsule) 60 mg PO DAILY@0900 [facility] Last Admin: 03/03/24 09:10 Dose: 60 mg Documented By: CHARLINE Furosemide (Furosemide 20 Mg/2 Ml Vial) 20 mg IVPUSH BID@0900,1800 [facility]; Protocol Last Admin: 03/03/24 10:35 Dose: Not Given Documented By: CHARLINE Non-Admin Reason: Decreased Blood Pressure Guaifenesin (Guaifenesin La 600 Mg Tab.Er.12h) 600 mg PO BID [facility] Last Admin: 03/03/24 09:10 Dose: 600 mg Documented By: CHARLINE Piperacillin Sod/Tazobactam (Sod 3.375 gm/ Sodium Chloride) 50 mls @ 100 mls/hr IV Q6H [facility] Last Infusion: 03/03/24 10:15 Dose: Infused Documented By: CHARLINE Potassium Chloride (Potassium Chloride/H20) 10 meq in 100 mls @ 100 mls/hr IV Q1H [facility] Stop: 03/03/24 12:29 Last Admin: 03/03/24 12:12 Dose: 100 mls/hr Documented By: CHARLINE Albumin Human (Kedbumin 25 %) 100 mls @ 100 mls/hr IV Q1H [facility] Stop: 03/03/24 12:44 Last Admin: 03/03/24 11:57 Dose: 100 mls/hr Documented By: CHARLINE Lactic Acid (Ammonium Lactate 12 % Lotion 226 Gm Bottle) 1 appl TOPICAL BID [facility]; Protocol Last Admin: 03/03/24 09:24 Dose: 1 appl Documented By: CHARLINE Mirtazapine (Mirtazapine 15 Mg Tablet) 15 mg PO BEDTIME [facility] Last Admin: 03/02/24 21:34 Dose: 15 mg Documented By: AYAH Omeprazole (Omeprazole 40 Mg Capsule.) 40 mg PO BID@0630,1630 [facility] Last Admin: 03/03/24 06:25 Dose: 40 mg Documented By: AYAH Ondansetron HCl (Ondansetron Hcl 4 Mg/2 Ml Vial) 4 mg IVPUSH Q6H PRN PRN Reason: Nausea and Vomiting Last Admin: 03/03/24 09:24 Dose: 4 mg Documented By: CHARLINE Potassium Chloride (Potassium Chloride Packet 20 Meq Packet) 40 meq PO Q2H [facility] Stop: 03/03/24 12:31 Last Admin: 03/03/24 11:05 Dose: 40 meq Documented By: CHARLINE Propranolol HCl (Propranolol Hcl 10 Mg Tablet) 10 mg PO TID [facility]; Protocol Last Admin: 03/03/24 09:11 Dose: 10 mg Documented By: CHARLINE Quetiapine Fumarate (Quetiapine Fumarate 25 Mg Tablet) 25 mg PO BEDTIME [facility] Last Admin: 03/02/24 21:34 Dose: 25 mg Documented By: AYAH Risperidone (Risperidone 2 Mg Tablet) 2 mg PO BEDTIME [facility] Last Admin: 03/02/24 21:33 Dose: 2 mg Documented By: AYAH Sodium Chloride (0.9 % Sodium Chloride Flush 3 Ml Syringe) 3 ml IVFLUSH QSHIFT [facility] Last Admin: 03/03/24 09:08 Dose: 3 ml Documented By: CHARLINE Spironolactone (Spironolactone 25 Mg Tablet) 100 mg PO DAILY [facility]; Protocol Last Admin: 03/03/24 09:10 Dose: 100 mg Documented By: CHARLINE Sucralfate (Sucralfate 1 Gm Tablet) 1 gm PO BIDAC [facility] Last Admin: 03/03/24 06:25 Dose: 1 gm Documented By: AYAH Tamsulosin HCl (Tamsulosin Hcl 0.4 Mg Capsule) 0.4 mg PO BEDTIME [facility] Last Admin: 03/02/24 21:34 Dose: 0.4 mg Documented By: AYAH Topiramate (Topiramate 100 Mg Tablet) 200 mg PO BID [facility] Last Admin: 03/03/24 09:11 Dose: 200 mg Documented By: CHARLINE Labs 03/02/24 06:02 03/03/24 06:39 Labs: Laboratory Results - last 24 hr 03/03/24 06:39 Hold Purple Top SEE NOTE Anion Gap 11 L Estim Creat Clear Calc 81.8 Estimated GFR > 60 Random Glucose 98 Calcium 7.6 L Assessment and Plan (1) Hepatic encephalopathy: Status: Acute (2) Pulmonary edema: Status: Acute (3) Congestive heart failure: Status: Acute (4) Aspiration pneumonia: Status: Acute Plan Leandro Rico is a 58 y/o man with PMHx significant for chronic liver disease/alcoholic liver cirrhosis with portal hypertension and esophageal varices admitted with: # Acute Hypoxic respiratory failure 2/2 Pulmonary edema and aspiration pneumonia Bronchodilator therapy cOntinue IV Zosyn IV Lasix and PO spironolactone. Albumin for low BP monitor I\O Wean down as toelrated # acute Hepatic encephalopathy improving continue Aspiration precautions. Ammonia level of 93 on admission Hold lactulose for diarrhea now, restart as needed restart lower doses home meds Seroquel,, mirtazapine, risperidone, Seroquel and Topamax. # Acute Hypokalemia K of 2.7 IV and PO replacement follow BMP # Diarrhea could be related to Lactulose Check stool WBCs # Chronic anemia. Hemoglobin stable. No obvious evidence of acute bleeding. Continue to monitor H&H. # Dysphagia. passed swallow evaluation. on regular diet # Mood disorder. Continue Topamax. # Ascites. US did not show significant amount. Continue Lasix, spironolactone and propranolol. # GERD, recently diagnosed with severe erosive gastritis. Continue sucralfate and Protonix. # BPH. Continue tamsulosin. Code status: Full DVT prophylaxis: SCDs Patient will need hospitalization for at least 2 midnights for hypoxic respiratory treatment with supplemental oxygen, bronchodilator therapy, diuretics and empiric IV antibiotic therapy. Quality Stroke Does the patient have a stroke diagnosis?: No VTE Prior VTE?: No VTE Risk Level:: Medical - moderate - high VTE Device Contraindication: N/A - Device Ordered VTE Drug Contraindication: Treatment Not Indicated
[2024-03-03 12:46] LABS: Potassium 2.7 mmol/L (3.3-5.1)
[2024-03-03 14:27] LABS: Leukocytes Stool Qualitative NEGATIVE (NEGATIVE)
[2024-03-03 15:15] LABS: Adenovirus F 40/41 Not Detected (Not Detect.); Astrovirus Not Detected (Not Detect.); Campylobacter Not Detected (Not Detect.); Cryptosporidium Not Detected (Not Detect.); Cyclospora cayetanensis Not Detected (Not Detect.); E. coli EAEC Not Detected (Not Detect.); E. coli EPEC Not Detected (Not Detect.); E. coli ETEC Not Detected (Not Detect.); E. coli STEC Not Detected (Not Detect.); Entamoeba histolytica Not Detected (Not Detect.); Giardia lamblia Not Detected (Not Detect.); Norovirus GI/GII Not Detected (Not Detect.); Plesiomonas shigelloides Not Detected (Not Detect.); Rotavirus A Not Detected (Not Detect.); Salmonella Not Detected (Not Detect.); Sapovirus Not Detected (Not Detect.); Shigella sp./EIEC Not Detected (Not Detect.); Vibrio Not Detected (Not Detect.); Vibrio Cholerae Not Detected (Not Detect.); Yersinia enterocolitica Not Detected (Not Detect.)
[2024-03-03 16:36] LABS: Anion Gap 15 (12-20); Blood Urea Nitrogen 12 mg/dL (9-16); Calcium 8.1 mg/dL (8.4-10.2); Carbon Dioxide 21 mmol/L (22-29); Chloride 110 mmol/L (96-108); Estimated Glomerular Filt Rate > 60; Glucose Random 109 mg/dL (60-115); Potassium 3.6 mmol/L (3.3-5.1); Sodium 142 mmol/L (135-145)
[2024-03-03] MEDS: Furosemide 20 MG/2 ML VIAL IVPUSH (17:17)
[2024-03-03] MEDS: Tamsulosin HCL 0.4 MG CAPSULE PO (20:38)
[2024-03-03] MEDS: Mirtazapine 15 MG TABLET PO (20:45)
[2024-03-03] MEDS: risperiDONE 1 MG TABLET PO (20:45)
[2024-03-04] VITALS (9 sets, daily range): BP systolic 102–116; BP diastolic 51–58; PULSE 62–80; RESP 18–21; TEMP 36.6–37.2; O2SAT 95–97; BMI 35.2
--- NOTE | 2024-03-04 02:11 | HO.SKINPHOTO ---
Location: Right medial elbow
--- NOTE | 2024-03-04 02:13 | PC.NURSE ---
pt found to have red, swollen, weeping area to right medial elbow region. MD assessed at bedside. new orders for limb US, elevation, and cold compress ordered. pt denies pain. call andres in reach. plan of care ongoing.
[2024-03-04] MEDS: Piperacillin Sodium/Tazobactam 3.375 GM in 0.9 % Sodium Chloride 50 ML IV ×4 (02:20→21:40)
[2024-03-04] MEDS: Omeprazole 40 MG CAPSULE.DR PO ×2 (05:54→15:29)
--- NOTE | 2024-03-04 06:33 | PM.EVENT ---
Event Note Date of Service: 03/04/24 Event Note: 11:31 PM - contacted to notify Mr. Rico noted an area of swelling in the medial aspect of his right elbow associated with spontaneous oozing of yellowish clear fluid. Patient evaluated. Right elbow: Medial aspect with an area of pitting edema and erythema, nontender to palpation. Limited US was ordered to assess for fluid collection. Time Spent With Patient Time: Total time managing care of this patient today ____ minutes.
[2024-03-04 06:45] LABS: Hematocrit 25.3 % (42.0-52.0); Mean Corpuscular HGB Conc 31.6 g/dl (31.0-36.0); Mean Corpuscular Hemoglobin 29.6 pg (27.0-33.0); Mean Corpuscular Volume 93.7 fL (80.0-98.0); Mean Platelet Volume 10.8 fL (9.4-12.4); Platelet Count 110 X10*3/uL (160-400); Red Cell Distribution Width 18.2 % (11.0-16.0); White Blood Count 6.9 X10*3/uL (4.8-10.8)
[2024-03-04 07:11] LABS: Anion Gap 12 (12-20); Blood Urea Nitrogen 10 mg/dL (9-16); Carbon Dioxide 23 mmol/L (22-29); Chloride 110 mmol/L (96-108); Creatinine Clr Calc Pharmacy 84.8; Estimated Glomerular Filt Rate > 60; Glucose Random 93 mg/dL (60-115); Sodium 142 mmol/L (135-145)
[2024-03-04 07:20] LABS: Potassium 2.9 mmol/L (3.3-5.1)
[2024-03-04] MEDS: Sucralfate 1 GM TABLET PO ×2 (08:04→15:29)
[2024-03-04] MEDS: Topiramate 100 MG TABLET 200 MG PO ×2 (08:04→21:40)
[2024-03-04] MEDS: Propranolol HCL 10 MG TABLET PO ×3 (08:04→21:43)
[2024-03-04] MEDS: Furosemide 20 MG/2 ML VIAL IVPUSH ×2 (08:04→17:36)
[2024-03-04] MEDS: Spironolactone 25 MG TABLET 100 MG PO (08:04)
[2024-03-04] MEDS: FLUoxetine HCl 20 MG CAPSULE 60 MG PO (08:04)
[2024-03-04] MEDS: guaiFENesin LA 600 MG TAB.ER.12H PO ×2 (08:04→21:40)
[2024-03-04] MEDS: 0.9 % Sodium Chloride Flush 3 ML SYRINGE IVFLUSH ×3 (08:05→21:41)
[2024-03-04] MEDS: Ammonium Lactate 12 % Lotion 226 GM BOTTLE 1 APPL TOPICAL ×2 (08:09→21:49)
--- NOTE | 2024-03-04 10:16 | MHC.CM.PN ---
Per MD in [facility]OUN[facility] Patient wants to go home despite PT's recommendation for STR. CM will follow.
--- NOTE | 2024-03-04 12:50 | HO.PM.IMPN ---
Subjective Subjective Date of Service: 03/04/24 Interval History: Seen and evaluated this monring alert and interactive , more alert having episodes of vomiting K of 2.9 Fluid overloaded in Anasarca Review of Systems Review of Systems: Yes all other systems are reviewed and are negative Physical Exam Vital Signs: Vital Signs: Last Vital Signs Temp 97.8 F 03/04/24 11:45 Pulse 68 03/04/24 11:45 Resp 20 03/04/24 11:45 BP 104/58 L 03/04/24 11:45 Pulse Ox 97 03/04/24 11:45 O2 Del Method Room Air 03/04/24 11:45 O2 Flow Rate 3 03/01/24 13:05 Oxygen Flow Rate 2 02/29/24 17:50 BMI result Body Mass Index 35.2 Const: Other: Constitutional : Awake, interactive, not in distress Neck : Normal inspection, Supple Cardiovascular : RRR, no JVP, +1 lower extremity edema, overall anasarca Respiratory : good bilateral air entry, no crackles, wheezes or rhonchi Gastrointestinal: soft, lax, mildly distended with mild amount of ascites Skin : Warm, Dry, Neurological : Alert & oriented to time and place, No focal deficit Objective Data Active Medications Albuterol Sulfate (Albuterol Sulfate (0.083%) 2.5 Mg/3 Ml Vial.Neb) 2.5 mg INHALE Q2H PRN PRN Reason: Shortness of Breath/Wheezing Albuterol/Ipratropium (Albuterol/Iprat 2.5/0.5mg 3 Ml Ampul.Neb) 3 ml INHALE RQ4H WHILE AWAKE [facility] Last Admin: 03/04/24 11:17 Dose: Not Given Documented By: LAYTON Non-Admin Reason: Patient Refused Fluoxetine HCl (Fluoxetine Hcl 20 Mg Capsule) 60 mg PO DAILY@0900 [facility] Last Admin: 03/04/24 08:04 Dose: 60 mg Documented By: CASEY Furosemide (Furosemide 20 Mg/2 Ml Vial) 20 mg IVPUSH BID@0900,1800 [facility]; Protocol Last Admin: 03/04/24 08:04 Dose: 20 mg Documented By: CASEY Guaifenesin (Guaifenesin La 600 Mg Tab.Er.12h) 600 mg PO BID [facility] Last Admin: 03/04/24 08:04 Dose: 600 mg Documented By: CASEY Piperacillin Sod/Tazobactam (Sod 3.375 gm/ Sodium Chloride) 50 mls @ 100 mls/hr IV Q6H [facility] Last Infusion: 03/04/24 08:51 Dose: Infused Documented By: CASEY Lactic Acid (Ammonium Lactate 12 % Lotion 226 Gm Bottle) 1 appl TOPICAL BID [facility]; Protocol Last Admin: 03/04/24 08:09 Dose: 1 appl Documented By: CASEY Mirtazapine (Mirtazapine 15 Mg Tablet) 15 mg PO BEDTIME [facility] Last Admin: 03/03/24 20:45 Dose: 15 mg Documented By: KARINA Omeprazole (Omeprazole 40 Mg Capsule.Dr) 40 mg PO BID@0630,1630 [facility] Last Admin: 03/04/24 05:54 Dose: 40 mg Documented By: KARINA Ondansetron HCl (Ondansetron Hcl 4 Mg/2 Ml Vial) 4 mg IVPUSH Q6H PRN PRN Reason: Nausea and Vomiting Last Admin: 03/03/24 09:24 Dose: 4 mg Documented By: CHARLINE Propranolol HCl (Propranolol Hcl 10 Mg Tablet) 10 mg PO TID [facility]; Protocol Last Admin: 03/04/24 08:04 Dose: 10 mg Documented By: CASEY Quetiapine Fumarate (Quetiapine Fumarate 25 Mg Tablet) 25 mg PO BEDTIME [facility] Last Admin: 03/02/24 21:34 Dose: 25 mg Documented By: AYAH Risperidone (Risperidone 1 Mg Tablet) 1 mg PO BEDTIME [facility] Last Admin: 03/03/24 20:45 Dose: 1 mg Documented By: KARINA Sodium Chloride (0.9 % Sodium Chloride Flush 3 Ml Syringe) 3 ml IVFLUSH QSHIFT [facility] Last Admin: 03/04/24 08:05 Dose: 3 ml Documented By: CASEY Spironolactone (Spironolactone 25 Mg Tablet) 100 mg PO DAILY [facility]; Protocol Last Admin: 03/04/24 08:04 Dose: 100 mg Documented By: CASEY Sucralfate (Sucralfate 1 Gm Tablet) 1 gm PO BIDAC [facility] Last Admin: 03/04/24 08:04 Dose: 1 gm Documented By: CASEY Tamsulosin HCl (Tamsulosin Hcl 0.4 Mg Capsule) 0.4 mg PO BEDTIME [facility] Last Admin: 03/03/24 20:38 Dose: 0.4 mg Documented By: KARINA Topiramate (Topiramate 100 Mg Tablet) 200 mg PO BID [facility] Last Admin: 03/04/24 08:04 Dose: 200 mg Documented By: CASEY Labs 03/04/24 05:52 03/04/24 05:52 Labs: Laboratory Results - last 24 hr 03/03/24 03/03/24 03/04/24 13:39 14:56 05:52 MCV 93.7 MCH 29.6 MCHC 31.6 RDW 18.2 H Plt Count 110 L MPV 10.8 Absolute Nucleated RBC 0.000 Nucleated RBC % (auto) 0.0 Anion Gap 15 12 Estim Creat Clear Calc 77.0 84.8 Estimated GFR > 60 > 60 Random Glucose 109 93 Calcium 8.1 L D 8.0 L Stool Leukocytes, Qual NEGATIVE Stl C. cayetanensis PCR Not Detected Stool Rotavirus A PCR Not Detected Stl Adenov F 40/41 PCR Not Detected Stool Astrovirus (PCR) Not Detected Stool Campylobacter PCR Not Detected Stool Cryptosporidium PCR Not Detected Stl Sh Tox Pr E STEC PCR Not Detected Stool E coli O157 PCR Not applicable Stl Enterotoxigenic E PCR Not Detected Stool EPEC (PCR) Not Detected Stool EAEC (PCR) Not Detected Stl E. histolytica PCR Not Detected Stool Giardia Lamblia PCR Not Detected Stl P. shigelloides PCR Not Detected Stool Salmonella PCR Not Detected Stool Sapovirus (PCR) Not Detected Stl Shigella/EIEC PCR Not Detected St Y.enterocolitica PCR Not Detected Stool Vibrio (PCR) Not Detected Stl Vibrio cholerae PCR Not Detected Stl Norovirus GI/GII PCR Not Detected Assessment and Plan (1) Hepatic encephalopathy: Status: Acute (2) Pulmonary edema: Status: Acute (3) Aspiration pneumonia: Status: Acute (4) Dysphagia: Status: Acute Plan Leandro Rico is a 58 y/o man with PMHx significant for chronic liver disease/alcoholic liver cirrhosis with portal hypertension and esophageal varices admitted with: # Acute Hypoxic respiratory failure 2/2 Pulmonary edema and aspiration pneumonia Bronchodilator therapy continue IV Zosyn IV Lasix and PO spironolactone. Albumin for low BP monitor I\O Wean down as tolerated # acute Hepatic encephalopathy improving continue Aspiration precautions. Ammonia level of 93 on admission Continue lactulose restart lower doses home meds Seroquel,, mirtazapine, risperidone, Seroquel and Topamax. # Acute Hypokalemia K of 2.9 IV and PO replacement follow BMP # Vomiting Zofran PRN GI to follow # LE swelling Pending US # Dysphagia. passed swallow evaluation. on regular diet # Chronic anemia. Hemoglobin stable. No obvious evidence of acute bleeding. Continue to monitor H&H. # Mood disorder. Continue Topamax. # Ascites. US did not show significant amount. Continue Lasix, spironolactone and propranolol. # GERD, recently diagnosed with severe erosive gastritis. Continue sucralfate and Protonix. # BPH. Continue tamsulosin. Code status: Full DVT prophylaxis: SCDs Patient will need hospitalization for at least 2 midnights for hypoxic respiratory treatment with supplemental oxygen, bronchodilator therapy, diuretics and empiric IV antibiotic therapy. Quality Stroke Does the patient have a stroke diagnosis?: No VTE Prior VTE?: No VTE Risk Level:: Medical - moderate - high VTE Device Contraindication: N/A - Device Ordered VTE Drug Contraindication: Treatment Not Indicated
[2024-03-04] MEDS: Prochlorperazine Edisylate 10 MG/2 ML VIAL 5 MG IVPUSH (13:11)
[2024-03-04] MEDS: Potassium Chloride/H20 10 MEQ/100 ML PIGGYBACK 100 MEQ IV ×2 (13:18→14:52)
--- NOTE | 2024-03-04 14:03 | MHC.CLN ---
NUTRITION CONSULT FOR POOR PO, DIET=2 G SODIUM. REGULAR CONSISTENCY PER HEALTH ASSESSMENT AND TREATMENT TEACHER. PROVIDER ADDED ENSURE TID. SUPPLEMENT PROVIDES 1050 KCALS, 60 G PROTEIN. PATIENT WITH RECENT VOMITING. DOCUMENTATION SHOWS PO USUALLY 50%. SKIN WITH STAGE 2 WOUND TO COCCYX. CONTINUE SUPPLEMENT TO INCREASE KCALS AND TO PROMOTE WOUND HEALING. WEIGHT CHANGES ANTICIPATED WITH ASCITES AND PARACENTESIS. MONITOR FOR PO INTAKE AND SKIN INTEGRITY. SEE CLINICAL NUTRITION ASSESSMENT 03/04/24.
[2024-03-04] MEDS: Potassium Chloride Packet 20 MEQ PACKET 40 MEQ PO (15:12)
[2024-03-04] MEDS: Lactulose 20 GM/30 ML SOLUTION PO ×2 (15:29→21:48)
[2024-03-04] MEDS: Albuterol/Iprat 2.5/0.5MG 3 ML AMPUL.NEB INHALE (15:38)
--- NOTE | 2024-03-04 16:23 | MHC.SL.SWA ---
Risk of Aspiration Due to: History of Pneumonia Dysphasia Diet Status: No change Liquid Consistency and Strategies for Safe Swallow: Liquid Intake Recommendation: Thin Liquid Intake Strategies: Small Sips Solid Food Consistency: Dietary Recommendations: Regular Oral Medication Intake: Whole with Liquid Please contact the pharmacy regarding appropriate crushable or liquid drug formulations that are available whenever modified delivery is recommended. Compensatory Strategies and Precautions to be Taken for Safe Swallow: Sitting Upright (90 deg) Supervision While Eating and Drinking for Safe Swallow: Intermittent Supervision Swallowing Recommended Treatments: Compens. Strategy Educat. Recommendation for Speech: Inpatient Speech Therapy Comment: Continue Regular Solids and Thin Liquids. All aspects of swallow evaluated at bedside deemed to be WFL. Recommend GI consultation d/t reported frequent vomiting. MD contacted. Signal Apprentice Clinican/Clinical Fellow: No Supervisory Statement: I have reviewed and agree with the student/clinical fellow's documentation: N/A Speech Language Pathologist: Carola Muñiz M.A., CCC-BRAND LEAD
[2024-03-04] MEDS: Potassium Chloride ER 20 MEQ TAB.ER.PRT 40 MEQ PO (17:36)
[2024-03-04] MEDS: Tamsulosin HCL 0.4 MG CAPSULE PO (21:40)
[2024-03-04] MEDS: Mirtazapine 15 MG TABLET PO (21:40)
[2024-03-04] MEDS: risperiDONE 1 MG TABLET PO (21:40)
[2024-03-04] MEDS: Melatonin 3 MG TABLET 6 MG PO (23:44)
[2024-03-05] VITALS: BP 109/56; PULSE 71; RESP 20; TEMP 36.7; O2SAT 99
[2024-03-05] MEDS: Piperacillin Sodium/Tazobactam 3.375 GM in 0.9 % Sodium Chloride 50 ML IV (02:40)
[2024-03-05 03:38] VITALS: BP 117/50; PULSE 73; RESP 16; TEMP 36.6; O2SAT 99
[2024-03-05 06:20] LABS: Hematocrit 25.6 % (42.0-52.0); Hemoglobin 8.1 g/dl (14.0-18.0); Mean Corpuscular HGB Conc 31.6 g/dl (31.0-36.0); Mean Corpuscular Hemoglobin 29.7 pg (27.0-33.0); Mean Corpuscular Volume 93.8 fL (80.0-98.0); Platelet Count 118 X10*3/uL (160-400); Red Blood Count 2.73 X10*6/uL (4.60-5.80); Red Cell Distribution Width 18.6 % (11.0-16.0); White Blood Count 7.8 X10*3/uL (4.8-10.8)
[2024-03-05] MEDS: Omeprazole 40 MG CAPSULE.DR PO (06:31)
[2024-03-05 06:40] LABS: Anion Gap 13 (12-20); Blood Urea Nitrogen 8 mg/dL (9-16); Calcium 7.9 mg/dL (8.4-10.2); Carbon Dioxide 21 mmol/L (22-29); Chloride 111 mmol/L (96-108); Creatinine Clr Calc Pharmacy 73.9; Estimated Glomerular Filt Rate 60; Glucose Random 99 mg/dL (60-115); Potassium 3.3 mmol/L (3.3-5.1); Sodium 142 mmol/L (135-145)
[2024-03-05] MEDS: Albuterol/Iprat 2.5/0.5MG 3 ML AMPUL.NEB INHALE ×2 (07:25→11:13)
[2024-03-05 07:28] VITALS: PULSE 69; RESP 18; O2SAT 99
[2024-03-05 08:00] VITALS: BP 105/53; PULSE 69; RESP 20; TEMP 37; O2SAT 99
--- NOTE | 2024-03-05 08:31 | P.CNGI_ITS ---
History of Present Illness Data of Consult Service Date: 03/05/24 Requesting physician: Hector Handley Primary Care Provider: Arben German MD HPI Reason for consult: nausea 58 year old man with past medical history of chronic liver disease/alcoholic liver cirrhosis with portal hypertension, esophageal varices, AVM, GERD and mood disorder who I am seeing for assessment for nausea and vomiting; Patient initially presented with SOB thought to be due to aspiration pneumonia from recent admission and EGD shortly before that. On admission, he was noted to be confused with low O2 sats. Imaging was consistent with pneumonia and pulm odema, Ct head without any acute path. He has been receiving treatment with Zosyn 3.375 g IV, Lasix IV, albuterol nebs and lactulose Today, he says eh feels much better and feels more aware. he denies SOB, confusion, chest pain. He has noted some dark stools, only had one episode of non bloody emesis this morning. Last EGD: 02/24/24- severe erosive esophagitis with flat varices. Review of Systems 2 Review of Systems: Constitutional : No Weight loss, No Fever, No Chills ENT/Mouth : No sore throat, No Rhinorrhea Eyes: No Swelling, No Redness Cardiovascular : No Chest Pain, No SOB, No Edema Respiratory : No Cough, No Sputum, No Wheezing Gastrointestinal : see HPI Genitourinary : NO Dysuria, No Urinary Frequency, No Hematuria, No Urgency Musculoskeletal : No joint pain, No Myalgias, No Joint Swelling Skin : No Skin Lesions, No rash Neuro : No Weakness, No Numbness, No Dizziness, No Headache Psych : No Anxiety/Panic, No Depression Heme/Lymph: No Bruising, No Lymphadenopathy Endocrine : No Polyuria, No Polydipsia All other systems reviewed and are negative. [facility] Past Medical History Medical History PTSD (post-traumatic stress disorder) Hyponatremia Acute hyponatremia NATHANIEL (acute kidney injury) Acute metabolic encephalopathy [place] Alcoholic cirrhosis of liver with ascites Prostate cancer Depression Hyperlipidemia Hypertension Anxiety Family History Pertinent family history: No Fh of GI bleeding, ulcers Social History Social History Household Members: Significant Other Household Members Other:: fiancee [facility] Do you presently have visiting nurse or other home services: No Unable to assess alcohol history related to: Refusing to respond Alcohol intake: former Patient Tobacco Use Status: Current everyday Tobacco user Tobacco use type: Cigarette Cigarettes Per Day: 5 Years Smoked: 25 e-Cigarette/Vaping Use: Never Used Second Hand Smoke Exposure: No Substance Use Type: Marijuana Advance Directives Date on File: 11/11/21 service: No Current occupational status: disabled Meds Allergies Allergy/AdvReac Type Severity Reaction Status Date / Time Fish Containing Products Allergy Severe THROAT Verified 02/29/24 17:54 SWELLING peanut [Peanut] Allergy Severe THROAT Verified 02/29/24 17:54 SWELLING Active Medications: Current Medications Albuterol Sulfate (Albuterol Sulfate (0.083%) 2.5 Mg/3 Ml Vial.Neb) 2.5 mg INHALE Q2H PRN PRN Reason: Shortness of Breath/Wheezing Albuterol/Ipratropium (Albuterol/Iprat 2.5/0.5mg 3 Ml Ampul.Neb) 3 ml INHALE RQ4H WHILE AWAKE [facility] Last Admin: 03/05/24 07:25 Dose: 3 ml Amoxicillin/Clavulanate Potassium (Amoxicillin/Potassium Clav 4,000 Mg/50 Ml Susp.Recon) 800 mg PO BID [facility] Fluoxetine HCl (Fluoxetine Hcl 20 Mg Capsule) 60 mg PO DAILY@0900 [facility] Last Admin: 03/04/24 08:04 Dose: 60 mg Furosemide (Furosemide 20 Mg/2 Ml Vial) 20 mg IVPUSH BID@0900,1800 [facility]; Protocol Last Admin: 03/04/24 17:36 Dose: 20 mg Guaifenesin (Guaifenesin La 600 Mg Tab.Er.12h) 600 mg PO BID [facility] Last Admin: 03/04/24 21:40 Dose: 600 mg Lactic Acid (Ammonium Lactate 12 % Lotion 226 Gm Bottle) 1 appl TOPICAL BID [facility]; Protocol Last Admin: 03/04/24 21:49 Dose: 1 appl Lactulose (Lactulose 20 Gm/30 Ml Solution) 20 gm PO TID [facility] Last Admin: 03/04/24 21:48 Dose: 20 gm Loperamide HCl (Loperamide Hcl 2 Mg Capsule) 2 mg PO Q4H PRN PRN Reason: Diarrhea Melatonin (Melatonin 3 Mg Tablet) 6 mg PO BEDTIME PRN PRN Reason: Insomnia Last Admin: 03/04/24 23:44 Dose: 6 mg Mirtazapine (Mirtazapine 15 Mg Tablet) 15 mg PO BEDTIME [facility] Last Admin: 03/04/24 21:40 Dose: 15 mg Omeprazole (Omeprazole 40 Mg Capsule.Dr) 40 mg PO BID@0630,1630 [facility] Last Admin: 03/05/24 06:31 Dose: 40 mg Ondansetron HCl (Ondansetron Hcl 4 Mg/2 Ml Vial) 4 mg IVPUSH Q6H PRN PRN Reason: Nausea and Vomiting Last Admin: 03/03/24 09:24 Dose: 4 mg Potassium Chloride (Potassium Chloride Er 20 Meq Tab.Er.Prt) 40 meq PO BID [facility] Stop: 03/06/24 09:01 Propranolol HCl (Propranolol Hcl 10 Mg Tablet) 10 mg PO TID [facility]; Protocol Last Admin: 03/04/24 21:43 Dose: 10 mg Quetiapine Fumarate (Quetiapine Fumarate 25 Mg Tablet) 25 mg PO BEDTIME [facility] Last Admin: 03/02/24 21:34 Dose: 25 mg Risperidone (Risperidone 1 Mg Tablet) 1 mg PO BEDTIME [facility] Last Admin: 03/04/24 21:40 Dose: 1 mg Sodium Chloride (0.9 % Sodium Chloride Flush 3 Ml Syringe) 3 ml IVFLUSH QSHIFT [facility] Last Admin: 03/04/24 21:41 Dose: 3 ml Spironolactone (Spironolactone 25 Mg Tablet) 100 mg PO DAILY [facility]; Protocol Last Admin: 03/04/24 08:04 Dose: 100 mg Sucralfate (Sucralfate 1 Gm Tablet) 1 gm PO BIDAC [facility] Last Admin: 03/04/24 15:29 Dose: 1 gm Tamsulosin HCl (Tamsulosin Hcl 0.4 Mg Capsule) 0.4 mg PO BEDTIME [facility] Last Admin: 03/04/24 21:40 Dose: 0.4 mg Topiramate (Topiramate 100 Mg Tablet) 200 mg PO BID [facility] Last Admin: 03/04/24 21:40 Dose: 200 mg Home Medications ?Medication ?Instructions ?Recorded ?Confirmed ?Last Taken ?Type propranolol 10 mg tablet 1 tab PO TID 11/11/21 03/01/24 02/22/24 History topiramate 200 mg tablet (Topamax) 1 tab PO BID 11/11/21 03/01/24 02/22/24 History fluoxetine 20 mg capsule (Prozac) 60 mg PO QAM 02/06/22 03/01/24 02/22/24 History furosemide 40 mg tablet 1 tab PO DAILY 10/17/22 03/01/24 02/22/24 History spironolactone 100 mg tablet 1 tab PO DAILY 10/17/22 03/01/24 02/22/24 History tamsulosin 0.4 mg capsule 0.4 mg PO BEDTIME 10/17/22 03/01/24 02/22/24 History melatonin 10 mg tablet 10 mg PO BEDTIME Insomnia 11/13/23 03/01/24 Unknown History mirtazapine 15 mg tablet 15 mg PO BEDTIME 11/13/23 03/01/24 02/22/24 History risperidone 2 mg tablet 2 mg PO BEDTIME 12/27/23 03/01/24 02/22/24 History ondansetron 4 mg disintegrating 4 mg PO Q8H PRN nausea/vomiting 03/01/24 03/01/24 Unknown History tablet Physical Exam 2 Vital Signs: Vital Signs: Last Vital Signs Temp 98.6 F 03/05/24 08:00 Pulse 69 03/05/24 08:00 Resp 20 03/05/24 08:00 BP 105/53 L 03/05/24 08:00 Pulse Ox 99 03/05/24 08:00 O2 Del Method Room Air 03/05/24 08:00 O2 Flow Rate 3 03/01/24 13:05 Oxygen Flow Rate 2 02/29/24 17:50 BMI result Body Mass Index 35.2 EXAM: GENERAL: The patient is relaxed VITAL SIGNS:see workflow HEENT: Nonicteric sclerae, PERRLA, EOMI. Oropharynx clear. Moist mucous membranes. Conjunctivae appear well perfused. No thyroid mass. CHEST: Chest wall is nontender. HEART: Regular rate and rhythm without murmurs. LUNGS: few exp crackles right base ABDOMEN: Soft, positive bowel sounds, nontender, no organomegaly.no flank tenderness SKIN: No rash, no excessive bruising, petechiae, or purpura. NEUROLOGIC: Cranial nerves II-XII intact without motor/sensory deficit. Psych: normal affect + edema Results Labs 03/05/24 06:04 03/05/24 06:04 Labs: Short CBC 03/05/24 Range/Units 06:04 WBC 7.8 (4.8-10.8) X10*3/uL Hgb 8.1 L (14.0-18.0) g/dl Hct 25.6 L (42.0-52.0) % Plt Count 118 L (160-400) X10*3/uL BMP 03/05/24 06:04 Sodium 142 Potassium 3.3 Chloride 111 H Carbon Dioxide 21 L BUN 8 L Creatinine 1.24 Calcium 7[address] scan - chest: Attestation: I personally reviewed and interpreted this imaging study as follows: (pleural effusions, patchy interstitial changes, congestion, cardiomegaly ) Assessment and Plan (1) Aspiration pneumonia: Qualifiers: Aspiration pneumonia type: unspecified Laterality: unspecified laterality Lung location: unspecified part of lung Qualified Code(s): J69.0 - Pneumonitis due to inhalation of food and vomit Status: Acute Plan 1/ Confusion and nausea, with superimposed pneumonia and pulm edema, upper Gi sx maybe worse due to antibiotics, pneumonia, and esophagitis. confusion could have been from hypoxia PLAN: /1 cont lactulose, but aim for 2-3 soft bowels a day, avoid aggressive titration to avoid dehydration 2/ high dose PPI e.g pantioprazole 40 mg bid with carafate 1 g BID 3/ anti emetic as needed 4/ cont with alcohol withdrawal and multi vitamins 5/ can diurese as needed to off load fluid, check zn level and replenish if low Procedures Date of Service Date of Service: 03/05/24
[2024-03-05] MEDS: Spironolactone 25 MG TABLET 100 MG PO (09:02)
[2024-03-05] MEDS: Sucralfate 1 GM TABLET PO (09:02)
[2024-03-05] MEDS: Furosemide 20 MG/2 ML VIAL IVPUSH ×2 (09:02→12:31)
[2024-03-05] MEDS: FLUoxetine HCl 20 MG CAPSULE 60 MG PO (09:02)
[2024-03-05] MEDS: Propranolol HCL 10 MG TABLET PO (09:03)
[2024-03-05] MEDS: Potassium Chloride ER 20 MEQ TAB.ER.PRT 40 MEQ PO (09:03)
[2024-03-05] MEDS: Topiramate 100 MG TABLET 200 MG PO (09:03)
[2024-03-05] MEDS: guaiFENesin LA 600 MG TAB.ER.12H PO (09:03)
[2024-03-05] MEDS: 0.9 % Sodium Chloride Flush 3 ML SYRINGE IVFLUSH (09:06)
[2024-03-05] MEDS: Ammonium Lactate 12 % Lotion 226 GM BOTTLE 1 APPL TOPICAL (09:10)
[2024-03-05] MEDS: ondansetron HCL 4 MG/2 ML VIAL IVPUSH (09:14)
[2024-03-05 11:15] VITALS: PULSE 74; RESP 18; O2SAT 100
[2024-03-05] MEDS: Amoxicillin/Potassium Clav 4,000 MG/50 ML SUSP.RECON 800 MG PO (11:16)
[2024-03-05 11:56] VITALS: BP 106/53; PULSE 73; RESP 20; TEMP 36.8; O2SAT 99
--- NOTE | 2024-03-05 12:13 | PM.DS ---
DS: Providers Provider Date of Service: 03/05/24 Date of admission: 03/01/24 02:22 Primary care physician: Fransisco Soria MD Consults: 03/02/24 07:18 Consult to Wound Care Routine Reason for consultation: lower extremity venous stasis, stage 2 r coccyx 2mm 03/04/24 12:49 Consult to Gastroenterology Routine Consulting Provider: Abhilash Brito Reason for consultation: recurrent vomiting. DS: Diagnosis Discharge Diagnosis (1) Hepatic encephalopathy: Status: Acute (2) Pulmonary edema: Status: Acute (3) Aspiration pneumonia: Status: Acute (4) Dysphagia: Status: Acute (5) Congestive heart failure: Status: Acute (6) Acute hypoxemic respiratory failure: Status: Acute (7) Anasarca: Status: Acute DS: Summary Hospital Course Hospital Course: Admission note HPI Leandro Rico is a 58 years old man with past medical history significant for chronic liver disease/alcoholic liver cirrhosis with portal hypertension, esophageal varices, AVM, GERD and mood disorder presents to the ED complaining of worsening shortness of breath. Patient was discharged yesterday after he was hospitalized with upper GI bleeding secondary to severe erosive esophagitis. During the hospitalization he developed aspiration pneumonia for which he received a course of antibiotics. Patient is a poor historian and was quite confused and could not provide his HPI. In the ED, he was found to have oxygen saturation 88 % and currently requiring 2 liters/minute supplemental oxygen. The rest of the vital signs are normal. Blood workup including CBC and CMP is unremarkable when compared with prior. Ammonia level is 93, higher dark prior. BNP is 335. Chest CTA showed limited exam due to respiratory motion, mixed alveolar interstitial disease in the lungs and upper lobes predominance: Pneumonia and pulmonary edema. There is also bilateral pleural effusion (right more than left). Head CT scan showed no acute intracranial abnormality. ED tx: Zosyn 3.375 g IV, Lasix 20 mg IV, albuterol nebs X2 and lactulose 20 mg PO. Hospital course # Acute Hypoxic respiratory failure secondary to Pulmonary edema and aspiration pneumonia with picture of Anasarca treated with Bronchodilator therapy and IV Zosyn with IV Lasix and PO spironolactone.with good respnse as he was weaned off O2. Albumin given for low BP with fair response. To continue Antibiotic for 5 more days on discharge. To give extra 40 mg of Lasix daily at 1700 for the next 5 days. To weight self at home and monitor weight loss. # acute Hepatic encephalopathy Ammonia level of 93 on admission. Treated with TID lactulose and lower doses home meds Seroquel,mainly with good response as he status improved to baseline. To cut down Seroquel dose by half on discharge and continue same dose for mirtazapine, risperidone and Topamax. # Acute Hypokalemia IV and PO replacement with good response. to give supplement for 5 days on discharge. follow BMP # LE swelling Negative doppler US for DVT. The patient remains a high risk for readmission given poor compliance and advance liver disease. Discharge plan Start physical therapy at home Take Lasix 40 mg in morning and for the next 5 days take another 40 mg in the afternoon Monitor weight, decrease sodium and fluids intake Decrease Seroquel to 25 mg twice daily, consider lowering it to bedtime only Lactulose twice daily , hold for diarrhea Augmentin as antibiotic for the next 5 days Time Attestation Discharge Coordination Time (in mins): 43 Quality: Safe Use of Opioids Does Pt have an Active Cancer Diagnosis on the Problem List?: No Quality: Stroke Does the patient have a stroke diagnosis?: No Physical Exam Vital Signs: Vital Signs: Last Vital Signs Temp 98.3 F 03/05/24 11:56 Pulse 73 03/05/24 11:56 Resp 20 03/05/24 11:56 BP 106/53 L 03/05/24 11:56 Pulse Ox 99 03/05/24 11:56 O2 Del Method Room Air 03/05/24 11:56 O2 Flow Rate 3 03/01/24 13:05 Oxygen Flow Rate 2 02/29/24 17:50 BMI result Body Mass Index 35.2 Const: Other: Constitutional : Awake, interactive, not in distress Neck : Normal inspection, Supple Cardiovascular : RRR, no JVP, trace lower extremity edema, overall anasarca Respiratory : good bilateral air entry, no crackles, wheezes or rhonchi Gastrointestinal: soft, lax, mildly distended with mild amount of ascites Skin : Warm, Dry, Neurological : Alert & oriented to time and place, No focal deficit DS: Data Data Completed and Pending Completed studies during hospitalization [Text1]: Procedures Detoxification Services for Substance Abuse Treatment (12/27/23) Drainage of Bladder with Drainage Device, Via Natural or Artificial Opening Endoscopic (02/23/24) Drainage of Peritoneal Cavity, Percutaneous Approach (03/02/22) Excision of Cecum, Via Natural or Artificial Opening Endoscopic, Diagnostic (03/02/22) Excision of Rectum, Via Natural or Artificial Opening Endoscopic, Diagnostic (03/02/22) Inspection of Upper Intestinal Tract, Via Natural or Artificial Opening Endoscopic (02/23/24) Introduction of Vasopressor into Peripheral Vein, Percutaneous Approach (02/23/24) Repair Scalp Skin, External Approach (11/20/21) Transfusion of Nonautologous Frozen Plasma into Peripheral Vein, Percutaneous Approach (02/23/24) Transfusion of Nonautologous Platelets into Peripheral Vein, Percutaneous Approach (02/23/24) Transfusion of Nonautologous Red Blood Cells into Peripheral Vein, Percutaneous Approach (02/23/24) Labs on day of discharge: Laboratory Results - last 24 hr 03/05/24 06:04 WBC 7.8 RBC 2.73 L Hgb 8.1 L Hct 25.6 L MCV 93.8 MCH 29.7 MCHC 31.6 RDW 18.6 H Plt Count 118 L MPV 10.0 Absolute Nucleated RBC 0.000 Nucleated RBC % (auto) 0.0 Sodium 142 Potassium 3.3 Chloride 111 H Carbon Dioxide 21 L Anion Gap 13 BUN 8 L Creatinine 1.24 Estim Creat Clear Calc 73.9 Estimated GFR 60 Random Glucose 99 Calcium 7.9 L Imaging Chest x-ray: Radiologist's impression: ITS Impressions Head CT 02/29/24 20:11 IMPRESSION: No acute intracranial pathology. Chest X-Ray 02/29/24 20:15 IMPRESSION: Bilateral diffuse nodular opacities probably representing pneumonia. Chest CT 02/29/24 23:13 IMPRESSION: Limited exam due to respiratory motion. Mixed alveolar and interstitial disease in the lungs with upper lobe predominance. Ammonia and pulmonary edema should be considered. Denser atelectasis/consolidation in both lower lobes. Enlarged heart. Bilateral pleural effusions, right greater than left. Fleischner guidelines were followed. Abdomen Ultrasound 03/01/24 12:03 IMPRESSION: Trace ascites. Extremity Ultrasound 03/04/24 07:32 IMPRESSION: Swelling with edematous changes in the superficial soft tissues of the proximal, upper medial right forearm. No discrete fluid collection to suggest an abscess is appreciated. Correlation with clinical exam recommended. This study was presented today, 06/05/2024 for interpretation. Stat results provided at this time as requested by referring provider. Discharge Plan Discharge Anticipated Discharge Date/Time: 03/05/24 12:04 Patient Disposition: Home Health Service Discharge Diagnosis: Hepatic encephalopathy Aspiration pneumonia Referrals: [facility] [Outside] - 1 Week Arben German MD [Physician] - 1 Week Discharge Medications: New ammonium lactate 12 % Lotion 1 appl topical BID Qty: 400 2RF Protocol: Apply to: Apply to: Whole body amoxicillin-pot clavulanate 400-57 mg/5 mL Suspension For Reconstitution 10 ml PO BID 5 Days Qty: 100 0RF guaifenesin [Mucinex] 600 mg Tablet Extended Release 12hr 600 mg PO BID Qty: 14 0RF furosemide [Lasix] 40 mg tablet 40 mg PO DAILY@1700 Qty: 5 0RF Continued propranolol 10 mg tablet 1 tab PO TID topiramate [Topamax] 200 mg tablet 1 tab PO BID tamsulosin 0.4 mg capsule 0.4 mg PO BEDTIME furosemide 40 mg tablet 1 tab PO DAILY spironolactone 100 mg tablet 1 tab PO DAILY fluoxetine [Prozac] 20 mg capsule 60 mg PO QAM mirtazapine 15 mg tablet 15 mg PO BEDTIME melatonin 10 mg tablet 10 mg PO BEDTIME risperidone 2 mg Tablet 2 mg PO BEDTIME sucralfate 1 gram Tablet 1 g PO BIDAC Qty: 60 0RF pantoprazole 40 mg tablet,delayed release (DR/EC) 40 mg PO BID Qty: 60 0RF ondansetron 4 mg tablet,disintegrating 4 mg PO Q8H PRN (Reason: nausea/vomiting) Changed lactulose [Constulose] 10 gram/15 mL solution 30 ml PO BID Qty: 946 1RF quetiapine [Seroquel] 50 mg Tablet 25 mg PO BID Qty: 90 0RF Discharge Orders: Discharge Order (Routine); Ordered 03/05/24 Ordered By: Hector Handley Diet: Low salt diet Activity on Discharge: As tolerated Stand Alone Forms: Patient Portal Discharge page Print Language: Chinese Care Plan Goals: Read below Health Concerns: Read below Plan of Treatment: Read below Assessment: Start physical therapy at home Take Lasix 40 mg in morning and for the next 5 days take another 40 mg in the afternoon Monitor weight, decrease sodium and fluids intake Decrease Seroquel to 25 mg twice daily, consider lowering it to bedtime only Lactulose twice daily , hold for diarrhea Augmentin as antibiotic for the next 5 days
--- NOTE | 2024-03-05 12:17 | MHC.CM.PN ---
Patient has been medically cleared for dc to home today, with services. A referral was made to [facility], who has been made aware of today's dc. CM met with Patient and his Fiance at bedside and addressed IMM with them(original was given to Patient and a copy has been placed on the chart). Patient's Fiance will transport home.
--- NOTE | 2024-03-05 12:33 | W.MHC.F2F ---
Service Date Service Date: 03/05/24 Encounter Date of encounter: 03/05/24 Reasons for Services Signs and symptoms assessed: Advance liver cirrhosis , Anasarca Physical deconditioning Reason for custodial: medication management and teach disease management Reason for physical therapy: home safety and mobility and therapeutic exercises Homebound: Leaving the home is medically contraindicated at this time without the asist of a device and/or another person due th the listed conditions above and below. Reason homebound: unsteady gait / fall risk Certification: Based on the above findings, I certify that this patient is confined to the home and needs intermittent custodial care, physical therapy and/or speech therapy, or continues to need occupational therapy. The patient is under my care, and I have initiated the establishment of the plan of care. The patient will be followed by a physician who will periodically review the plan of care. Time Spent With Patient Time: Total time managing care of this patient today ____ minutes.
--- NOTE | 2024-03-06 18:12 | P.CDIM_ITS ---
PROVIDER RESPONSE TEXT: To clarify, the appropriate diagnosis supported by the clinical indicators: Acute QUERY TEXT: PHYSICIAN'S DOCUMENTATION REQUEST Date of Query: 03/04/2024 02:41 PM EDT Patient Name: Leandro Rico Admit Date: 03/01/2024 Dear Hector Handley, A review of the medical record indicates additional documentation may be needed. Please review below and update the documentation accordingly. Clinical Indicators: Per Hospitalist Progress Note 03/04/24: Acute Hypoxic respiratory failure 2/2 Pulmonary edema and aspiration pneumonia Bronchodilator therapy continue IV Zosyn IV Lasix and PO spironolactone. Clarify which of the following accurately represents the acuity of the Pulmonary edema. Possible options might include: Acute Acute on chronic Compensated Chronic stable condition Remission Other (explain) Clinically unable to determine (explain) Thank you, Grace White RN Use of terms such as suspected, likely, concern for, or probable (associated with a specific diagnosi s that is being evaluated, monitored, or treated as if it exists) are acceptable and can be coded in the inpatient se tting, when documented at the time of discharge. Please use your independent medical judgment in providing your response. THIS QUERY IS PART OF THE PERMANENT MEDICAL RECORD
== END 2024-03-05 14:04 | disposition home health service (06) | DRG 178 ==
LOC: HO.ED 03-01 00:38 → HO.EDOVER 03-01 02:37 → HO.IMC 03-02 06:13
PROVIDERS: Physician Assistant Medical; Admitting Provider Internal Medicine; Emergency Provider Internal Medicine; PCP Internal Medicine; Visit Provider Student in an Organized Health Care Education/Training Program
DX: J69.0 Pneumonitis due to inhalation of food and vomit (principal); K76.6 Portal hypertension; F17.210 Nicotine dependence, cigarettes, uncomplicated; F10.11 Alcohol abuse, in remission; K76.82 Hepatic encephalopathy; E87.6 Hypokalemia; D64.9 Anemia, unspecified; R19.7 Diarrhea, unspecified; F39 Unspecified mood [affective] disorder; R13.10 Dysphagia, unspecified; N40.0 Benign prostatic hyperplasia without lower urinary tract symptoms; K70.31 Alcoholic cirrhosis of liver with ascites; Z71.6 Tobacco abuse counseling; Z20.822 Contact with and (suspected) exposure to COVID-19; Z79.899 Other long term (current) drug therapy
CPT/HCPCS: 0241U; 36415; 70450; 71045; 71250; 76705; 76882; 80048; 80053; 80307; 81001; 82140; 82272; 82565; 83735; 83880; 84484; 85025; 85027; 85610; 85730; 87507; 89055; 92526; 92610; 93005; 94640; 97162; 97530; 99285; J0737; J1940; J2405; J2543; J3370; J3371; J3480; P9047

== ENCOUNTER → 2024-02-29 17:53 | Outpatient (BNV) | payer MEDICARE, SELFPAY | PROVIDERS: Admitting Provider Internal Medicine; Emergency Provider Internal Medicine; PCP Internal Medicine; Visit Provider Internal Medicine Cardiovascular Disease | DX: R06.02 Shortness of breath (principal); I45.81 Long QT syndrome | CPT/HCPCS: 93010 ==

== ENCOUNTER → 2024-03-01 02:22 | Outpatient (BNV) | payer MEDICARE, SELFPAY | PROVIDERS: Admitting Provider Internal Medicine; Emergency Provider Internal Medicine; PCP Internal Medicine; Visit Provider Internal Medicine | DX: J81.0 Acute pulmonary edema (principal); I50.9 Heart failure, unspecified; J69.0 Pneumonitis due to inhalation of food and vomit; J96.01 Acute respiratory failure with hypoxia; K76.82 Hepatic encephalopathy; D64.9 Anemia, unspecified | CPT/HCPCS: 99223; 99232; 99233; 99239; 99499; G0180 ==

== ENCOUNTER → 2024-03-01 02:22 | Outpatient (BNV) | payer MEDICARE, SELFPAY | PROVIDERS: Admitting Provider Internal Medicine; Emergency Provider Internal Medicine; PCP Internal Medicine; Visit Provider Internal Medicine Gastroenterology | DX: J69.0 Pneumonitis due to inhalation of food and vomit (principal) | CPT/HCPCS: 99223 ==

== ENCOUNTER 2024-03-07 20:03 | Emergency (ER) | payer MEDICARE, SELFPAY ==
[2024-03-07] VITALS (10 sets, daily range): BP systolic 84–106; BP diastolic 38–55; PULSE 76–88; RESP 11–22; TEMP 36.8–37.3; O2SAT 94–100; BMI 34.2
--- NOTE | ~2024-03-07 | XR_ITS ---
EXAMINATION: XR CHEST CLINICAL INFORMATION: Rule out aspiration. COMPARISON: Chest radiograph dated 02/29/2024. TECHNIQUE: Frontal view of the chest was obtained. FINDINGS: Heart size is normal. There is improved aeration of the lungs compared with examination dated 02/29/2024. Subtle, patchy bilateral airspace opacities persist, however. There is no pleural effusion. No pneumothorax. No acute osseous abnormality. XR/XR chest 1V IMPRESSION: There is improved aeration of the lungs compared with examination dated 02/29/2024. Subtle, patchy bilateral airspace opacities persist, however.
--- NOTE | 2024-03-07 20:25 | ECG_ITS ---
Test Reason : GI BLEED Blood Pressure : / mmHG Vent. Rate : 078 BPM Atrial Rate : 078 BPM P-R Int : 168 ms QRS Dur : 094 ms QT Int : 456 ms P-R-T Axes : 041 -25 030 degrees QTc Int : 519 ms Normal sinus rhythm Cannot rule out Anterior infarct , age undetermined Abnormal ECG When compared with ECG of 29-FEB-2024 18:02, No significant change was found Referred By: Darlene Tian Electronically Signed By:Julio Muro
[2024-03-07] MEDS: Pantoprazole Sodium 40 MG/10 ML VIAL 80 MG IVPUSH (20:30)
[2024-03-07 20:31] LABS: Mean Corpuscular HGB Conc 31.1 g/dl (31.0-36.0); Mean Corpuscular Hemoglobin 29.7 pg (27.0-33.0); Mean Corpuscular Volume 95.5 fL (80.0-98.0); Mean Platelet Volume 10.4 fL (9.4-12.4); Platelet Count 226 X10*3/uL (160-400); Red Blood Count 2.02 X10*6/uL (4.60-5.80); Red Cell Distribution Width 19.1 % (11.0-16.0); White Blood Count 15.8 X10*3/uL (4.8-10.8)
[2024-03-07] MEDS: ondansetron HCL 4 MG/2 ML VIAL IVPUSH (20:31)
[2024-03-07] MEDS: Octreotide Acetate 100 MCG/ML AMPUL 50 MCG IVPUSH (20:31)
[2024-03-07 20:36] LABS: Hematocrit 19.3 % (42.0-52.0)
[2024-03-07 20:40] LABS: Lactic Acid 2.2 mmol/L (0.5-2.0)
[2024-03-07 20:42] LABS: Alanine Aminotransferase 7 U/L (0-40); Albumin Level 2.1 g/dL (3.5-5.0); Alkaline Phosphatase 95 U/L (39-117); Anion Gap 10 (12-20); Aspartate Amino Transferase 13 U/L (5-37); Blood Urea Nitrogen 24 mg/dL (9-16); Calcium 7.1 mg/dL (8.4-10.2); Carbon Dioxide 25 mmol/L (22-29); Chloride 111 mmol/L (96-108); Estimated Glomerular Filt Rate > 60; Glucose Random 129 mg/dL (60-115); Lipase 32 U/L (8-78); Potassium 3.6 mmol/L (3.3-5.1); Sodium 142 mmol/L (135-145); Total Protein 4.8 g/dL (6.5-8.0)
[2024-03-07 20:57] LABS: SLIDE REVIEW MANUAL DIFF
[2024-03-07 20:59] LABS: Basophils Abs Manual 0.3 X10*3/uL (0.0-0.2); Basophils Percent Manual 2 % (0-2); Eosinophils Absolute Manual 0.2 X10*3/uL (0.0-0.4); Eosinophils Percent Manual 1 % (0-4); Lymphocytes Absolute Manual 1.9 X10*3/uL (1.2-4.9); Lymphocytes Percent Manual 12 % (20-40); Monocytes Absolute Manual 0.6 X10*3/uL (0.1-1.2); Monocytes Percent Manual 4 % (2-11); Neutrophils Percent Manual 81 % (45-73); RBC Morphology NOTED
[2024-03-07 21:00] LABS: Schistocytes 1+ (0-2) /OIF
[2024-03-07 21:02] LABS: Acanthocytes 1+ (0-2) /OIF; Platelet Estimate NORMAL (NORMAL); Platelet Morphology Comment NORMAL
[2024-03-07 21:03] LABS: Band Neutrophils Percent 0 % (3-5); Neutrophils Absolute Manual 12.8 X10*3/uL (2.0-8.3)
[2024-03-07] MEDS: Octreotide Acetate 500 MCG in 0.9 % Sodium Chloride 500 ML 50.1 MCG IVCONT (21:15)
[2024-03-07 21:18] LABS: B Type Natriuretic Peptide 206 pg/mL (<100)
[2024-03-07 21:19] LABS: Ethanol < 10 mg/dL; Magnesium 1.9 mg/dL (1.6-2.6)
[2024-03-07 21:24] LABS: Troponin-I High Sensitivity < 2.7 ng/L (<3.5-35.0)
[2024-03-07] MEDS: cefTRIAXone sodium 1 GM in 0.9 % Sodium Chloride 50 ML IV (21:29)
--- NOTE | 2024-03-07 21:32 | ED_ITS ---
HPI - GI Bleed General Chief complaint: GI Bleed Stated complaint: throwing up dark blood, d/c today for GI bleed Time Seen by Provider: 03/07/24 20:12 Source: patient and EMS Mode of arrival: EMS Limitations: no limitations History of Present Illness ED Provider: Dr. Darlene Tian HPI Narrative: Patient comes to the emergency room complaining vomiting blood. According to the patient, all day today he has been vomiting blood. A few hours prior to arrival, patient started vomiting at significant amount of red blood. After patient filled up a bucket of blood, patient's partner made him come to the emergency room. According to EMS, when they found the patient, there was approximately 1 L of blood and that is after he emptied the 1st container. Patient's blood pressure was in the low 80s systolic. When patient arrived to emergency room, patient was actively vomiting bright red broad. Patient states that he has not been drinking alcohol. Patient complaining of significant general malaise, very nauseous, feeling short of breath, near blacking out, diffuse abdominal discomfort. Related Data Home Medications ?Medication ?Instructions ?Recorded ?Confirmed propranolol 10 mg tablet 1 tab PO TID 11/11/21 03/01/24 topiramate 200 mg tablet (Topamax) 1 tab PO BID 11/11/21 03/01/24 fluoxetine 20 mg capsule (Prozac) 60 mg PO QAM 02/06/22 03/01/24 furosemide 40 mg tablet 1 tab PO DAILY 10/17/22 03/01/24 spironolactone 100 mg tablet 1 tab PO DAILY 10/17/22 03/01/24 tamsulosin 0.4 mg capsule 0.4 mg PO BEDTIME 10/17/22 03/01/24 melatonin 10 mg tablet 10 mg PO BEDTIME Insomnia 11/13/23 03/01/24 mirtazapine 15 mg tablet 15 mg PO BEDTIME 11/13/23 03/01/24 risperidone 2 mg tablet 2 mg PO BEDTIME 12/27/23 03/01/24 ondansetron 4 mg disintegrating 4 mg PO Q8H PRN nausea/vomiting 03/01/24 03/01/24 tablet Previous Rx's ?Medication ?Instructions ?Recorded pantoprazole 40 mg tablet,delayed 40 mg PO BID #60 tabs 12/30/23 release sucralfate 1 gram tablet 1 g PO BIDAC #60 tabs 12/30/23 ammonium lactate 12 % lotion 1 appl topical BID #400 grams 03/05/24 amoxicillin 400 mg-potassium 10 ml PO BID 5 days #100 mL 03/05/24 clavulanate 57 mg/5 mL oral suspension furosemide 40 mg tablet (Lasix) 40 mg PO DAILY@1700 #5 tabs 03/05/24 guaifenesin 600 mg tablet, 600 mg PO BID #14 tabs 03/05/24 extended release 12 hr (Mucinex) lactulose 10 gram/15 mL oral 30 ml PO BID Constipation #946 mL 03/05/24 solution (Constulose) quetiapine 50 mg tablet (Seroquel) 25 mg (1/2 x 50 mg) PO BID #90 tabs 03/05/24 Allergies Allergy/AdvReac Type Severity Reaction Status Date / Time Fish Containing Products Allergy Severe THROAT Verified 03/07/24 22:10 SWELLING peanut [Peanut] Allergy Severe THROAT Verified 03/07/24 22:10 SWELLING Review of Systems 2 Review of Systems: Constitutional : No Weight loss, No Fever, No Chills, No Night Sweats, complaining of fatigue ENT/Mouth : No Hearing loss, No Ear Pain, No Nasal Congestion, No Sinus Pain, No Hoarseness, No sore throat, No Rhinorrhea, No Swallowing Difficulty Eyes: No Eye Pain, No Swelling, No Redness, No Foreign Body, No Discharge, No Vision Changes Cardiovascular : No Chest Pain, No SOB, No Dyspnea on Exertion, No Orthopnea, No Edema, No Palpitations Respiratory : No Cough, No Sputum, No Wheezing, No Smoke Exposure, No Dyspnea Gastrointestinal : Vomiting bright red blood, abdominal discomfort Genitourinary : no irregular bleeding, No Dysuria, No Urinary Frequency, No Hematuria, No Urinary Incontinence, No Urgency, No Flank Pain, No Urinary Flow Changes, No Hesitancy Musculoskeletal : No joint pain, No Myalgias, No Joint Swelling Skin : No Skin Lesions, No rash Neuro : No Weakness, No Numbness, No Paresthesias, complaining of feeling faint, dizzy, almost passing out Psych : No Anxiety/Panic, No Depression, No SI/HI/AH/VH, No Social Issues, Heme/Lymph: No Bruising, No Bleeding,No Lymphadenopathy Endocrine : No Polyuria, No Polydipsia, No Temperature Intolerance PMFSH Past Medical History Medical History PTSD (post-traumatic stress disorder) Hyponatremia Acute hyponatremia NATHANIEL (acute kidney injury) Acute metabolic encephalopathy [place] Alcoholic cirrhosis of liver with ascites Prostate cancer Depression Hyperlipidemia Hypertension Anxiety Social History Social History Household Members: Significant Other Household Members Other:: fiancee [facility] Do you presently have visiting nurse or other home services: No Unable to assess alcohol history related to: Refusing to respond Alcohol intake: former Patient Tobacco Use Status: Current everyday Tobacco user Tobacco use type: Cigarette Cigarettes Per Day: 5 Years Smoked: 25 Smoked in Last 30 Days: Yes e-Cigarette/Vaping Use: Never Used Second Hand Smoke Exposure: No Use of substances other than those prescribed or required for medical reasons: Yes Substance Use Type: Marijuana Substance Use Frequency: Occasionally Advance Directives: Yes Advance Directives on File: Yes Advance Directives Date on File: 11/11/21 Do you have a plan to hurt others: No Plan service: No Current occupational status: disabled Physical Exam 2 Vital Signs: Vital Signs: Last Vital Signs Temp 99.6 F 03/08/24 01:14 Pulse 77 03/08/24 01:14 Resp 20 03/08/24 01:14 BP 104/58 L 03/08/24 01:14 Pulse Ox 95 03/08/24 01:14 O2 Del Method Room Air 03/08/24 01:14 Oxygen Flow Rate 2 03/07/24 22:07 BMI result Body Mass Index 34.2 Const: Other: Appearance: Alert. Oriented X3. Ill-appearing, actively vomiting bright red blood Eyes: Pupils equal, round and reactive to light. ENT: Pharynx normal. Neck: Normal inspection. Neck supple. No lymph nodes noted. No crepitus CVS: Normal heart rate and rhythm. Pulses normal. Normal S1 and S2 Respiratory: No respiratory distress. Breath sounds normal. No Wheezing. No rales Abdomen: Soft and nontender. No rigidity. No distention., actively vomiting blood Skin: Skin warm , clammy, significantly pale Extremities: No lower extremity edema. No Lacerations. No Rash Neuro: Oriented X 3. No motor deficit. No sensory deficit. Moving all extremities. No slurred speech. CN 2 through 12 grossly intact Psych: calm, cooperative Course Course Course Narrative: -on arrival, patient's blood pressure in the 90s, actively vomiting bright red blood. -initial blood pressure 102/42,, heart rate in the 70s, patient came in with an emesis bag nearly field to the top with blood. -2 units of unmatched blood were ordered immediately. Patient has 2 large-bore IVs, given octreotide push, octreotide drip, pantoprazole, Zofran, ceftriaxone, 2 units of fresh frozen plasma -patient continues vomiting blood. Blood pressure labile, up to 100 systolic, but dropping to the low 80s systolic, heart rate steady between 70 and 80. -Patient was given 2500 units of Kcentra, vitamin K 10mg IV, 2 more units of blood (total of 4) and albumin -patient awake, alert and oriented x3, patient regaining his normal skin color, patient states that he has no longer nauseous, no abdominal pain, states that he is starting to feel much better. Medications Administered Generic Name Dose Route Start Last Admin Trade Name Freq PRN Reason Stop Dose Admin Octreotide Acetate 500 mcg/ 501 mls @ 50.1 mls/hr 03/07/24 20:15 03/07/24 21:15 Sodium Chloride IVCONT 50 mcg/hr .Q10H KULWANT 50.1 mls/hr Administration 50 MCG/HR Albumin Human 100 mls @ 100 mls/hr 03/07/24 23:00 03/08/24 02:02 Kedbumin 25 % IV 03/08/24 17:59 100 mls/hr Q6H KULWANT Administration Discontinued Medications Generic Name Dose Route Start Last Admin Trade Name Freq PRN Reason Stop Dose Admin Sodium Chloride 100 mls @ 100 mls/hr 03/07/24 20:12 03/07/24 22:05 Ns IV 03/07/24 21:11 100 mls/hr ONCE ONE Administration Sodium Chloride 100 mls @ 100 mls/hr 03/07/24 20:12 03/07/24 22:05 Ns IV 03/07/24 21:11 100 mls/hr ONCE ONE Administration Ceftriaxone Sodium 1 gm/ 50 mls @ 100 mls/hr 03/07/24 20:34 03/07/24 21:29 Sodium Chloride IV 03/07/24 21:03 100 mls/hr ONCE ONE Administration Sodium Chloride 100 mls @ 100 mls/hr 03/07/24 20:35 03/07/24 22:05 Ns IV 03/07/24 21:34 100 mls/hr ONCE ONE Administration Sodium Chloride 100 mls @ 100 mls/hr 03/07/24 20:35 03/07/24 22:05 Ns IV 03/07/24 21:34 100 mls/hr ONCE ONE Administration Phytonadione 10 mg/ Sodium 51 mls @ 51 mls/hr 03/07/24 20:36 03/07/24 21:40 Chloride IV 03/07/24 21:35 51 mls/hr ONCE ONE Administration Prothrombin Complex Concent ( 100 mls @ 480 mls/hr 03/07/24 20:37 03/07/24 21:39 Human) 2,500 unit/ IV IV 03/07/24 20:38 480 mls/hr Miscellaneous Supplies .Q13M ONE Administration Sodium Chloride 100 mls @ 100 mls/hr 03/07/24 20:44 03/07/24 22:06 Ns IV 03/07/24 21:43 100 mls/hr ONCE ONE Administration Sodium Chloride 100 mls @ 100 mls/hr 03/07/24 20:44 03/07/24 22:06 Ns IV 03/07/24 21:43 100 mls/hr ONCE ONE Administration Octreotide Acetate 50 mcg 03/07/24 20:12 03/07/24 20:31 Octreotide Acetate 100 Mcg/Ml Ampul IVPUSH 03/07/24 20:13 50 mcg ONCE ONE Administration Ondansetron HCl 4 mg 03/07/24 20:22 03/07/24 20:31 Ondansetron Hcl 4 Mg/2 Ml Vial IVPUSH 03/07/24 20:23 4 mg ONCE ONE Administration Pantoprazole Sodium 80 mg 03/07/24 20:13 03/07/24 20:30 Pantoprazole Sodium 40 Mg/10 Ml Vial IVPUSH 03/07/24 20:14 80 mg ONCE ONE Administration Prochlorperazine Edisylate 10 mg 03/07/24 20:38 03/07/24 21:40 Prochlorperazine Edisylate 10 Mg/2 Ml Vial IVPUSH 03/07/24 20:39 10 mg ONCE ONE Administration Medical Decision Making Medical Decision Making MDM Narrative: -I reviewed patient's past medical records. On 02/24/2024, patient had an upper endoscopy done, showed severe erosive esophagitis, nonbleeding esophageal and gastric varices and portal hypertension. -patient was discharged from this hospital 2 days ago on 03/05/2024. Patient was admitted for hepatic encephalopathy, pulmonary edema, pneumonia, CHF, hypoxic respiratory failure -my interpretation of labs: Patient's white blood cell count 15.8, likely reactive leukocytosis. Patient has a hemoglobin of 6.0, hematocrit 19.3 (previous, 2 days ago: 8.1/25.6). -please note that patient's white blood cell count, lactic acid, and episodes of hypotension are all secondary to blood loss, likely from an esophageal varices bleed, sepsis is not suspected. At this time, fluid is not indicated. Patient is getting a significant amount of blood, patient is recovering from a CHF exacerbation. -patient's albumin 2.1. Patient also receiving IV albumin -22:50: After the above-mentioned treatment, patient's blood pressure has been above 90 systolic, currently 97/44, map of 65 -p will need a GI consult in the morning -patient overall feeling much better, patient's blood pressure 98/45, heart rate 67, map of 65. Patient has had continues maps above 70, occasionally when patient bends his arm, the map drops to [id number]. However, over last 2 hours, patient has been stable, no longer vomiting blood. -I discussed the patient with Dr. Cummins, who is requesting to keep the patient in the emergency room under observation for the next 3 hours, until 05:00. If patient's map stays above 65 and patient remains clinically stable, pt will be admitted. Differential Diagnosis Differential Diagnoses: The differential diagnosis associated with the presentation includes (Upper GI bleed, lower GI bleed) Admission/Observation Consideration of admission/observation: Escalation of care including admission/observation considered Consult Healthcare Provider Management of the patient was discussed with: Hospitalist and Dog Track Kennel Manager Lab Data [facility] Lab Attestation statement: I reviewed the patient's lab results. 03/07/24 22:43 03/07/24 20:18 Labs: Lab Results 03/07/24 03/07/24 03/07/24 Range/Units 20:18 20:19 20:50 WBC 15.8 H (4.8-10.8) X10*3/uL RBC 2.02 L D (4.60-5.80) X10*6/uL Hgb 6.0 L* D (14.0-18.0) g/dl Hct 19.3 L* D (42.0-52.0) % MCV 95.5 (80.0-98.0) fL MCH 29.7 (27.0-33.0) pg MCHC 31.1 (31.0-36.0) g/dl RDW 19.1 H (11.0-16.0) % Plt Count 226 D (160-400) X10*3/uL MPV 10.4 (9.4-12.4) fL Immature Gran % (Auto) Cancelled Neut % (Auto) Cancelled Lymph % (Auto) Cancelled [place] % (Auto) Cancelled Eos % (Auto) Cancelled Baso % (Auto) Cancelled Lymph # (Auto) Cancelled [place] # (Auto) Cancelled Eos # (Auto) Cancelled Baso # (Auto) Cancelled Abs Immat Gran (auto) Cancelled Absolute Neuts (auto) Cancelled Absolute Nucleated RBC 0.000 (0.0-0.012) X10*3/uL Nucleated RBC % (auto) 0.0 (0.0-0.2) /100WBC Neutrophils % (Manual) 81 H (45-73) % Band Neutrophils % 0 L (3-5) % Lymphocytes % (Manual) 12 L (20-40) % Monocytes % (Manual) 4 (2-11) % Eosinophils % (Manual) 1 (0-4) % Basophils % (Manual) 2 (0-2) % Abs Neuts (Manual) 12.8 H (2.0-8.3) X10*3/uL Lymphocytes # (Manual) 1.9 (1.2-4.9) X10*3/uL Monocytes # (Manual) 0.6 (0.1-1.2) X10*3/uL Eosinophils # (Manual) 0.2 (0.0-0.4) X10*3/uL Basophils # (Manual) 0.3 H (0.0-0.2) X10*3/uL Platelet Estimate NORMAL (NORMAL) Plt Morphology Comment NORMAL RBC Morphology NOTED Acanthocytes (Spur) 1+ (0-2) /OIF Schistocytes 1+ (0-2) /OIF Smear Tech's Comments MANUAL DIFF PT 24.0 H D (11.1-13.3) SEC INR 2.0 H (0.9-1.1) Sodium 142 (135-145) mmol/L Potassium 3.6 (3.3-5.1) mmol/L Chloride 111 H (96-108) mmol/L Carbon Dioxide 25 (22-29) mmol/L Anion Gap 10 L (12-20) BUN 24 H (9-16) mg/dL Creatinine 0.97 (0.5-1.4) mg/dL Estim Creat Clear Calc TNP Estimated GFR > 60 Random Glucose 129 H (60-115) mg/dL Lactic Acid 2.2 H* (0.5-2.0) mmol/L Lactic Acid F/U @ 2Hr (0.5-2.0) mmol/L Calcium 7.1 L D (8.4-10.2) mg/dL Magnesium 1.9 (1.6-2.6) mg/dL Total Bilirubin 2.0 H (0.0-1.0) mg/dL AST 13 (5-37) U/L ALT 7 (0-40) U/L Alkaline Phosphatase 95 (39-117) U/L Troponin I High Sens < 2.7 (<3.5-35.0) ng/L B-Natriuretic Peptide 206 H (<100) pg/mL Total Protein 4.8 L (6.5-8.0) g/dL Albumin 2.1 L (3.5-5.0) g/dL Lipase 32 (8-78) U/L Ethyl Alcohol < 10 mg/dL Blood Type A Positive Antibody Screen NEGATIVE Crossmatch See Detail 03/07/24 Range/Units 22:43 WBC 16.4 H (4.8-10.8) X10*3/uL RBC 2.76 L D (4.60-5.80) X10*6/uL Hgb 8.4 L D (14.0-18.0) g/dl Hct 25.2 L D (42.0-52.0) % MCV 91.3 (80.0-98.0) fL MCH 30.4 (27.0-33.0) pg MCHC 33.3 (31.0-36.0) g/dl RDW 16.6 H (11.0-16.0) % Plt Count 150 L D (160-400) X10*3/uL MPV 10.5 (9.4-12.4) fL Immature Gran % (Auto) Neut % (Auto) Lymph % (Auto) [place] % (Auto) Eos % (Auto) Baso % (Auto) Lymph # (Auto) [place] # (Auto) Eos # (Auto) Baso # (Auto) Abs Immat Gran (auto) Absolute Neuts (auto) Absolute Nucleated RBC 0.000 (0.0-0.012) X10*3/uL Nucleated RBC % (auto) 0.0 (0.0-0.2) /100WBC Neutrophils % (Manual) (45-73) % Band Neutrophils % (3-5) % Lymphocytes % (Manual) (20-40) % Monocytes % (Manual) (2-11) % Eosinophils % (Manual) (0-4) % Basophils % (Manual) (0-2) % Abs Neuts (Manual) (2.0-8.3) X10*3/uL Lymphocytes # (Manual) (1.2-4.9) X10*3/uL Monocytes # (Manual) (0.1-1.2) X10*3/uL Eosinophils # (Manual) (0.0-0.4) X10*3/uL Basophils # (Manual) (0.0-0.2) X10*3/uL Platelet Estimate (NORMAL) Plt Morphology Comment RBC Morphology Acanthocytes (Spur) /OIF Schistocytes /OIF Smear Tech's Comments PT (11.1-13.3) SEC INR (0.9-1.1) Sodium (135-145) mmol/L Potassium (3.3-5.1) mmol/L Chloride (96-108) mmol/L Carbon Dioxide (22-29) mmol/L Anion Gap (12-20) BUN (9-16) mg/dL Creatinine (0.5-1.4) mg/dL Estim Creat Clear Calc Estimated GFR Random Glucose (60-115) mg/dL Lactic Acid (0.5-2.0) mmol/L Lactic Acid F/U @ 2Hr 1.9 (0.5-2.0) mmol/L Calcium (8.4-10.2) mg/dL Magnesium (1.6-2.6) mg/dL Total Bilirubin (0.0-1.0) mg/dL AST (5-37) U/L ALT (0-40) U/L Alkaline Phosphatase (39-117) U/L Troponin I High Sens (<3.5-35.0) ng/L B-Natriuretic Peptide 200 H (<100) pg/mL Total Protein (6.5-8.0) g/dL Albumin (3.5-5.0) g/dL Lipase (8-78) U/L Ethyl Alcohol mg/dL Blood Type Antibody Screen Crossmatch Independent Interpretation I performed an independent interpretation of an: EKG and Plain X-Ray Radiology Impression Discussion of test interpretation with radiology: I have reviewed the radiologist's reading. Radiologist Impression: Heart size is normal. There is improved aeration of the lungs compared with examination dated 02/29/2024. Subtle, patchy bilateral airspace opacities persist, however. There is no pleural effusion. No pneumothorax. No acute osseous abnormality. XR/XR chest 1V IMPRESSION: There is improved aeration of the lungs compared with examination dated 02/29/2024. Subtle, patchy bilateral airspace opacities persist, however. Independent Historian Clinical information obtained from an independent historian. History obtained from or confirmed by: Spouse Chronic Conditions Patient?s care impacted by: Other (cirrhosis) Critical Care Time Critical Care Time Critical Care Time: Yes Total Critical Care Time: 120 Attestation: I have personally provided critical care time. Time includes review of lab data, radiology results, discussion with consultants, and monitoring for potential decompensation. Intervention performed as documented. Discharge Plan Discharge Clinical Impression: Acute GI bleeding, Anemia, Acute hypotension Patient Disposition: Admitted As Inpatient Prescriptions: No Action propranolol 10 mg tablet 1 tab PO TID topiramate [Topamax] 200 mg tablet 1 tab PO BID tamsulosin 0.4 mg capsule 0.4 mg PO BEDTIME furosemide 40 mg tablet 1 tab PO DAILY spironolactone 100 mg tablet 1 tab PO DAILY fluoxetine [Prozac] 20 mg capsule 60 mg PO QAM mirtazapine 15 mg tablet 15 mg PO BEDTIME melatonin 10 mg tablet 10 mg PO BEDTIME risperidone 2 mg Tablet 2 mg PO BEDTIME sucralfate 1 gram Tablet 1 g PO BIDAC Qty: 60 0RF pantoprazole 40 mg tablet,delayed release (DR/EC) 40 mg PO BID Qty: 60 0RF ondansetron 4 mg tablet,disintegrating 4 mg PO Q8H PRN (Reason: nausea/vomiting) ammonium lactate 12 % Lotion 1 appl topical BID Qty: 400 2RF Protocol: Apply to: Apply to: Whole body amoxicillin-pot clavulanate 400-57 mg/5 mL Suspension For Reconstitution 10 ml PO BID 5 Days Qty: 100 0RF guaifenesin [Mucinex] 600 mg Tablet Extended Release 12hr 600 mg PO BID Qty: 14 0RF furosemide [Lasix] 40 mg tablet 40 mg PO DAILY@1700 Qty: 5 0RF lactulose [Constulose] 10 gram/15 mL solution 30 ml PO BID Qty: 946 1RF quetiapine [Seroquel] 50 mg Tablet 25 mg PO BID Qty: 90 0RF Print Language: Azeri
--- NOTE | 2024-03-07 21:36 | HE.PHANOTE ---
Omari Confirmed patient weight with MD of 99.2 kg. MD wants 25 units/kg dose = 2500 units. Patient is not on DOAC or Warfarin but MD states needed for 2L blood loss from GI bleed.
[2024-03-07] MEDS: Hum Prothrombin Cplx(PCC)4Fact 2,500 UNIT in Container,Empty 0 ML 480 UNIT IV (21:39)
[2024-03-07] MEDS: Phytonadione (Vit K1) 10 MG in 0.9 % Sodium Chloride 50 ML 51 MG IV (21:40)
[2024-03-07] MEDS: Prochlorperazine Edisylate 10 MG/2 ML VIAL IVPUSH (21:40)
[2024-03-07 22:24] LABS: Reflex Lactate? Lactic Acid Added
[2024-03-07 22:51] LABS: Hematocrit 25.2 % (42.0-52.0); Hemoglobin 8.4 g/dl (14.0-18.0); Mean Corpuscular HGB Conc 33.3 g/dl (31.0-36.0); Mean Corpuscular Hemoglobin 30.4 pg (27.0-33.0); Mean Corpuscular Volume 91.3 fL (80.0-98.0); Mean Platelet Volume 10.5 fL (9.4-12.4); Platelet Count 150 X10*3/uL (160-400); Red Blood Count 2.76 X10*6/uL (4.60-5.80); Red Cell Distribution Width 16.6 % (11.0-16.0); White Blood Count 16.4 X10*3/uL (4.8-10.8)
[2024-03-07 23:02] LABS: ~Lactic Acid-LAB USE ONLY 1.9 mmol/L (0.5-2.0)
[2024-03-07 23:12] LABS: B Type Natriuretic Peptide 200 pg/mL (<100)
[2024-03-07] MEDS: Albumin Human 25 % 100 ML IV (23:18)
[2024-03-08] VITALS (19 sets, daily range): BP systolic 0–120; BP diastolic 0–63; PULSE 0–77; RESP 0–20; TEMP -17.7–37.6; O2SAT 92–99
[2024-03-08] MEDS: Albumin Human 25 % 100 ML IV ×2 (02:02→03:18)
--- NOTE | 2024-03-08 05:06 | PM.EVENT ---
Event Note Date of Service: 03/08/24 Event Note: Was asked to evaluate the patient for possible admission. Patient with MAPS around 65 all through the night despite 4 units of PRBC, 2 units of FFP and 3 bags of albumin. Noted maps less than 65 intermittently on display monitor history. Previous MAP was 57. Patient with high risk of decompensation due to upper GI bleed. Will closely monitor hemodynamically and once maps are consistently above 65, will admit. Conveyed to ER provider. Time Spent With Patient Time: Total time managing care of this patient today ____ minutes.
[2024-03-08 06:28] LABS: Amphetamine Screen Urine Not Detected (Not Detect); Barbiturates, Urine POSITIVE (Not Detect); Benzodiazepines Screen Urine Not Detected (Not Detect); Buprenorphine Scr Not Detected (Not Detect); Cannabinoid Screen Urine POSITIVE (Not Detect); Cocaine Screen Urine Not Detected (Not Detect); Fentanyl, urine Not Detected (Not Detect); Methadone Screen, Urine Not Detected (Not Detect); Opiate Screen Urine Not Detected (Not Detect); Oxycodone Screen Urine Not Detected (Not Detect); Phencyclidine Screen Urine Not Detected (Not Detect)
[2024-03-08 07:34] LABS: MANUAL DIFF FLAG NO
[2024-03-08 07:37] LABS: Basophils Absolute Auto 0.1 X10*3/uL (0.0-0.2); Basophils Percent Auto 0.9 % (0-2); Eosinophils Absolute Auto 0.2 X10*3/uL (0.0-0.4); Eosinophils Percent Auto 1.7 % (0-4); Imm Gran Abs Auto 0.12 X10*3/uL (0.00-0.03); Imm Gran Pct Auto 1.1 % (0.0-0.4); Lymphocytes Absolute Auto 2.2 X10*3/uL (1.2-4.9); Mean Corpuscular HGB Conc 33.8 g/dl (31.0-36.0); Mean Corpuscular Hemoglobin 30.7 pg (27.0-33.0); Mean Corpuscular Volume 90.7 fL (80.0-98.0); Mean Platelet Volume 10.8 fL (9.4-12.4); Monocytes Absolute Auto 0.9 X10*3/uL (0.1-1.2); Monocytes Percent Auto 8.2 % (2-11); Neutrophils Absolute Auto 7.2 x10*3/uL (2.0-8.3); Neutrophils Percent Auto 67.1 % (45-73); Platelet Count 125 X10*3/uL (160-400); Red Blood Count 2.25 X10*6/uL (4.60-5.80); Red Cell Distribution Width 17.2 % (11.0-16.0); White Blood Count 10.7 X10*3/uL (4.8-10.8)
[2024-03-08 07:46] LABS: INTERNATIONAL NORM RATIO 1.4 (0.9-1.1); Prothrombin Time 17.4 SEC (11.1-13.3)
[2024-03-08 07:48] LABS: Hematocrit 20.4 % (42.0-52.0); Hemoglobin 6.9 g/dl (14.0-18.0)
[2024-03-08 07:51] LABS: Alanine Aminotransferase 6 U/L (0-40); Albumin Level 3.1 g/dL (3.5-5.0); Alkaline Phosphatase 64 U/L (39-117); Anion Gap 11 (12-20); Aspartate Amino Transferase 12 U/L (5-37); Bilirubin Total 6.2 mg/dL (0.0-1.0); Blood Urea Nitrogen 28 mg/dL (9-16); Calcium 7.5 mg/dL (8.4-10.2); Carbon Dioxide 23 mmol/L (22-29); Chloride 114 mmol/L (96-108); Creatinine Clr Calc Pharmacy 92.2; Estimated Glomerular Filt Rate > 60; Glucose Random 111 mg/dL (60-115); Potassium 3.3 mmol/L (3.3-5.1); Sodium 145 mmol/L (135-145); Total Protein 5.2 g/dL (6.5-8.0)
[2024-03-08 07:54] LABS: Partial Thromboplastin Time 39.5 SEC (26.0-36.8)
--- NOTE | 2024-03-08 07:54 | PC.NURSE ---
CRITICAL LABS: HEMOGLOBIN 6.9. HEMATOCRIt 20.4. Dr. Martin aware.
[2024-03-08] MEDS: Octreotide Acetate 500 MCG in 0.9 % Sodium Chloride 500 ML 50.1 MCG IVCONT (08:13)
--- NOTE | 2024-03-08 08:53 | PC.NURSE ---
Blood verified by two RNs, vss. Blood Transfusion started. Pt seen by ICU Dr. Koch. Pt will not go to ICU and he will only be getting one unit of PRBCs. Pt tolerating blood transfusion well. Pt aware of plan of care.
--- NOTE | 2024-03-08 10:05 | PHA.MEDREC ---
Pharmacy Consult ? Medication Reconciliation Pharmacy has completed the medication reconciliation. Patient discharged on . Spoke with over the phone to confirm changes since then. She reports he last took the augmentin yesterday, he was only taking 40mg of lasix everyday, he is taking the 25mg BID of quetiapine, he is taking mucinex, and using lactulose prn. She reports all other medications from before have not changed.
--- NOTE | 2024-03-08 10:27 | PC.NURSE ---
Blood transfusing appropriately. Pt tolerating well. He denies pain/sob/chest pain. b/p low 80s over mid 40s when in semi fowlers position. pt remains in Trendelenburg position, vss.
--- NOTE | 2024-03-08 12:28 | PC.NURSE ---
BLOOD TRANSFUSION ENDED AND COMPLETED WITHING INFUSION TIME FRAME. NOT ABLE TO END TRANSFUSION IN [facility] TRANSFUSING . PT PICKED UP BY [facility] AND IS NOW DEPARTED TO [facility].
== END 2024-03-08 12:33 | disposition short-term general hospital (02) ==
PROVIDERS: Emergency Medicine; Emergency Provider Emergency Medicine Emergency Medical Services; PCP Internal Medicine
DX: K92.2 Gastrointestinal hemorrhage, unspecified (principal); K92.0 Hematemesis; D64.9 Anemia, unspecified; I95.89 Other hypotension; K22.10 Ulcer of esophagus without bleeding; R06.02 Shortness of breath; R53.81 Other malaise; I11.0 Hypertensive heart disease with heart failure; I50.9 Heart failure, unspecified; E78.5 Hyperlipidemia, unspecified; F10.20 Alcohol dependence, uncomplicated; Y90.0 Blood alcohol level of less than 20 mg/100 ml; K70.31 Alcoholic cirrhosis of liver with ascites; J96.01 Acute respiratory failure with hypoxia; A41.9 Sepsis, unspecified organism; E87.20 Acidosis, unspecified; K76.6 Portal hypertension; I85.00 Esophageal varices without bleeding; F17.210 Nicotine dependence, cigarettes, uncomplicated; Z85.46 Personal history of malignant neoplasm of prostate; K76.82 Hepatic encephalopathy; E87.1 Hypo-osmolality and hyponatremia; G93.41 Metabolic encephalopathy; R29.6 Repeated falls; F12.90 Cannabis use, unspecified, uncomplicated; Z86.711 Personal history of pulmonary embolism; Z87.01 Personal history of pneumonia (recurrent); Z92.3 Personal history of irradiation; Z79.899 Other long term (current) drug therapy
CPT/HCPCS: 36415; 71045; 80053; 80307; 83605; 83690; 83735; 83880; 84484; 85007; 85025; 85027; 85610; 85730; 86850; 86900; 86901; 86920; 86923; 92950; 93005; 96365; 96366; 96375; 99285; C9113; J0696; J0737; J2354; J2405; J3430; J7168; P9016; P9017; P9047

== ENCOUNTER → 2024-03-07 20:25 | Outpatient (BNV) | payer MEDICARE, SELFPAY | PROVIDERS: Emergency Provider Emergency Medicine Emergency Medical Services; PCP Internal Medicine; Visit Provider Internal Medicine Cardiovascular Disease | DX: R94.31 Abnormal electrocardiogram [ECG] [EKG] (principal) | CPT/HCPCS: 93010 ==

== ENCOUNTER 2024-03-19 23:36 | Inpatient (IN) | payer MEDICARE, SELFPAY ==
--- NOTE | ~2024-03-19 | XR_ITS ---
EXAMINATION: XR CHEST CLINICAL INFORMATION: Left IJ central line placement. COMPARISON: Chest radiograph 03/07/2024. TECHNIQUE: Frontal view of the chest was obtained. FINDINGS: Left IJ CVC tip does not cross the midline and terminates over the expected location of the left brachiocephalic vein. Endotracheal tube terminates at 4.2 cm above the laure. Stable prominence of the cardiomediastinal silhouette. New bibasilar consolidative, hazy and reticular airspace opacities. Increased central vascular engorgement and interstitial thickening. New small bilateral pleural effusions. No pneumothorax. No acute osseous findings. XR/XR chest 1V IMPRESSION: 1. Left IJ CVC tip does not cross the midline and terminates over the expected location of the left brachiocephalic vein. 2. Endotracheal tube terminates at 4.2 cm above the laure. 3. New bibasilar consolidative, hazy and reticular airspace opacities. 4. New small bilateral pleural effusions. 5. No pneumothorax.
--- NOTE | ~2024-03-19 | US_ITS ---
ULTRASOUND GUIDED PARACENTESIS HISTORY: Ascites. Bowel pain; diagnostic drainage. Risks and benefits and possible complications were discussed with the patient and consent form was signed. A safe pocket of ascitic fluid was identified right lower quadrant using ultrasound guidance, and the overlying skin was marked, prepped and draped in sterile fashion. 1% lidocaine was used as a local anesthetic. Using ultrasound guidance, a 22-gauge spinal needle was placed into the ascitic pocket. 60 mL of yellow fluid was removed. The needle was then removed. A few career services representative images from before and after the examination were obtained. The procedure was performed by Anthony Banks PA-C and supervised by Dr. Haddad. US/US paracentesis abd w/image IMPRESSION: Ultrasound-guided diagnostic paracentesis as described above. No immediate complications
--- NOTE | 2024-03-19 23:41 | ECG_ITS ---
Test Reason : GI BLEED Blood Pressure : / mmHG Vent. Rate : 075 BPM Atrial Rate : 075 BPM P-R Int : 162 ms QRS Dur : 110 ms QT Int : 432 ms P-R-T Axes : 038 -18 057 degrees QTc Int : 482 ms Normal sinus rhythm Cannot rule out Anterior infarct (cited on or before 07-MAR-2024) Abnormal ECG When compared with ECG of 07-MAR-2024 21:05, No significant change was found Referred By: Darlene Tian Electronically Signed By:ELIECER RAWLS MD
[2024-03-19 23:44] VITALS: BP 110/70; PULSE 78; O2SAT 96
[2024-03-19 23:45] VITALS: BP 108/69; PULSE 81; RESP 16; TEMP 37.1; O2SAT 97; BMI 32.7
--- NOTE | 2024-03-19 23:51 | ED.GIBLEED ---
HPI - GI Bleed General Chief complaint: GI Bleed Stated complaint: N/V,ETOH USE,H/O CIRRHOSIS X2 YRS PER EMS Time Seen by Provider: 03/19/24 23:38 Source: patient and EMS Mode of arrival: EMS Limitations: no limitations History of Present Illness ED Provider: Dr. Darlene Tian HPI Narrative: Patient comes to the emergency room complaining of vomiting blood. Patient states that for the last week has been unable to tolerate anything p.o., has been vomiting but today in the morning he started vomiting blood. Patient was seen here a few weeks for the same. Patient states that today he only drank slushies with alcohol, no hard liquor. Patient states that the last time that he was here, we transferred him to [place], [place] for ICU admission and a possible tips procedure, he did not require any intervention, other than the blood transfusion that was started here. Patient denies chest pain or shortness of breath. Related Data Home Medications ?Medication ?Instructions ?Recorded ?Confirmed propranolol 10 mg tablet 1 tab PO TID 11/11/21 03/08/24 topiramate 200 mg tablet (Topamax) 1 tab PO BID 11/11/21 03/08/24 fluoxetine 20 mg capsule (Prozac) 60 mg PO QAM 02/06/22 03/08/24 furosemide 40 mg tablet 1 tab PO DAILY 10/17/22 03/08/24 spironolactone 100 mg tablet 1 tab PO DAILY 10/17/22 03/08/24 tamsulosin 0.4 mg capsule 0.4 mg PO BEDTIME 10/17/22 03/08/24 melatonin 10 mg tablet 10 mg PO BEDTIME Insomnia 11/13/23 03/08/24 mirtazapine 15 mg tablet 15 mg PO BEDTIME 11/13/23 03/08/24 risperidone 2 mg tablet 2 mg PO BEDTIME 12/27/23 03/08/24 ondansetron 4 mg disintegrating 4 mg PO Q8H PRN nausea/vomiting 03/01/24 03/08/24 tablet lactulose 10 gram/15 mL oral 30 ml PO BID PRN Constipation 03/08/24 03/08/24 solution (Constulose) Previous Rx's ?Medication ?Instructions ?Recorded pantoprazole 40 mg tablet,delayed 40 mg PO BID #60 tabs 12/30/23 release sucralfate 1 gram tablet 1 g PO BIDAC #60 tabs 12/30/23 ammonium lactate 12 % lotion 1 appl topical BID #400 grams 03/05/24 amoxicillin 400 mg-potassium 10 ml PO BID 5 days #100 mL 03/05/24 clavulanate 57 mg/5 mL oral suspension guaifenesin 600 mg tablet, 600 mg PO BID #14 tabs 03/05/24 extended release 12 hr (Mucinex) quetiapine 50 mg tablet (Seroquel) 25 mg (1/2 x 50 mg) PO BID #90 tabs 03/05/24 Allergies Allergy/AdvReac Type Severity Reaction Status Date / Time Fish Containing Products Allergy Severe THROAT Verified 03/19/24 23:46 SWELLING peanut [Peanut] Allergy Severe THROAT Verified 03/19/24 23:46 SWELLING Review of Systems Review of Systems: Constitutional : No Weight loss, No Fever, No Chills, No Night Sweats, No Fatigue, No Malaise ENT/Mouth : No Hearing loss, No Ear Pain, No Nasal Congestion, No Sinus Pain, No Hoarseness, No sore throat, No Rhinorrhea, No Swallowing Difficulty Eyes: No Eye Pain, No Swelling, No Redness, No Foreign Body, No Discharge, No Vision Changes Cardiovascular : No Chest Pain, No SOB, No Dyspnea on Exertion, No Orthopnea, No Edema, No Palpitations Respiratory : No Cough, No Sputum, No Wheezing, No Smoke Exposure, No Dyspnea Gastrointestinal : Vomiting blood, no diarrhea, no significant abdominal pain Genitourinary : no irregular bleeding, No Dysuria, No Urinary Frequency, No Hematuria, No Urinary Incontinence, No Urgency, No Flank Pain, No Urinary Flow Changes, No Hesitancy Musculoskeletal : No joint pain, No Myalgias, No Joint Swelling Skin : No Skin Lesions, No rash Neuro : No Weakness, No Numbness, No Paresthesias, No Loss of Consciousness, No Dizziness, No Headache Psych : No Anxiety/Panic, No Depression, No SI/HI/AH/VH, No Social Issues, Heme/Lymph: No Bruising, No Bleeding,No Lymphadenopathy Endocrine : No Polyuria, No Polydipsia, No Temperature Intolerance PMFSH Past Medical History Medical History PTSD (post-traumatic stress disorder) Hyponatremia Acute hyponatremia NATHANIEL (acute kidney injury) Acute metabolic encephalopathy [place] Alcoholic cirrhosis of liver with ascites Prostate cancer Depression Hyperlipidemia Hypertension Anxiety Social History Social History Household Members: Significant Other Household Members Other:: fiancee Housing: Condominium Do you presently have visiting nurse or other home services: No Unable to assess alcohol history related to: Refusing to respond Alcohol intake: current Alcohol intake frequency: former alcohol drinker Patient Tobacco Use Status: Current everyday Tobacco user Tobacco use type: Cigarette Cigarettes Per Day: 5 Years Smoked: 25 Smoked in Last 30 Days: Yes e-Cigarette/Vaping Use: Never Used Second Hand Smoke Exposure: No Use of substances other than those prescribed or required for medical reasons: Yes Substance Use Type: Marijuana Substance Use Frequency: Chronic Longstanding Advance Directives: Yes Advance Directives on File: Yes Advance Directives Date on File: 11/11/21 Do you have a plan to hurt others: No Plan service: No Current occupational status: disabled Physical Exam Vital Signs: Vital Signs: Last Vital Signs Temp 97.9 F 03/20/24 04:11 Pulse 83 03/20/24 04:11 Resp 15 03/20/24 04:11 BP 110/56 L 03/20/24 04:11 Pulse Ox 95 03/20/24 04:11 O2 Del Method Room Air 03/20/24 04:11 BMI result Body Mass Index 32.7 Const: Other: Appearance: Alert. Oriented X3. No acute distress. Eyes: Pupils equal, round and reactive to light. Icteric ENT: Pharynx normal. Neck: Normal inspection. Neck supple. No lymph nodes noted. No crepitus CVS: Normal heart rate and rhythm. Pulses normal. Normal S1 and S2 Respiratory: No respiratory distress. Breath sounds normal. No Wheezing. No rales Abdomen: Soft distended, nontender, caput medusae Skin: Skin warm and dry. Diffusely icteric Normal skin turgor. Extremities: No lower extremity edema. No Lacerations. No Rash Neuro: Oriented X 3. No motor deficit. No sensory deficit. Moving all extremities. No slurred speech. CN 2 through 12 grossly intact Psych: calm, cooperative, normal affect Course Course Course Narrative: -so far, patient's vitals are stable, blood pressure 108/69, heart rate 81, respirations 16 -patient receiving IV fluids, octreotide IV, pantoprazole, Compazine, Zofran, ceftriaxone, albumin Medications Administered Discontinued Medications Generic Name Dose Route Start Last Admin Trade Name Taz PRN Reason Stop Dose Admin Sodium Chloride 1,000 mls @ 999 mls/hr 03/19/24 23:42 03/20/24 01:45 Ns IVCONT 03/20/24 00:42 Infused .Q1H1M ONE Infusion Ceftriaxone Sodium 1 gm/ 50 mls @ 100 mls/hr 03/19/24 23:42 03/20/24 01:05 Sodium Chloride IV 03/20/24 00:11 Infused ONCE ONE Infusion Albumin Human 100 mls @ 100 mls/hr 03/20/24 01:15 03/20/24 04:25 Kedbumin 25 % IV 03/20/24 03:14 Infused Q1H KULWANT Infusion Metoclopramide HCl 10 mg 03/20/24 00:01 03/20/24 00:41 Metoclopramide Hcl 10 Mg/2 Ml Vial IVPUSH 10 mg ONCE PRN Administration Vomiting Octreotide Acetate 50 mcg 03/19/24 23:42 03/20/24 00:18 Octreotide Acetate 100 Mcg/Ml Ampul IVPUSH 03/19/24 23:43 50 mcg ONCE ONE Administration Ondansetron HCl 4 mg 03/19/24 23:42 03/20/24 00:17 Ondansetron Hcl 4 Mg/2 Ml Vial IVPUSH 03/19/24 23:43 4 mg ONCE ONE Administration Pantoprazole Sodium 80 mg 03/19/24 23:42 03/20/24 00:18 Pantoprazole Sodium 40 Mg/10 Ml Vial IVPUSH 03/19/24 23:43 80 mg ONCE ONE Administration Prochlorperazine Edisylate 10 mg 03/19/24 23:50 03/20/24 00:28 Prochlorperazine Edisylate 10 Mg/2 Ml Vial IVPUSH 03/19/24 23:51 10 mg ONCE ONE Administration Medical Decision Making Medical Decision Making MDM Narrative: My interpretation of labs: Patient's white blood cell count 11.0, hemoglobin is 9.1, hematocrit 28.2, platelets 205. Hemoglobin and hematocrit are better than previous visits. White blood cell count likely secondary to reactive leukocytosis. Lactic acid 3.9. Is chronic, and secondary to alcohol and vomiting. This is not sepsis. Chemistries pending -patient receive fluids and empiric antibiotics for GI bleed -after the above-mentioned treatment, patient has stopped vomiting, patient comfortable, map has mostly been between 70-78. Patient stable. -I discussed the patient with Dr. Preston, patient being admitted -we requested medical records from [facility] several hours ago, however we have not received them yet Differential Diagnosis Differential Diagnoses: The differential diagnosis associated with the presentation includes (GI bleed, alcohol abuse) Admission/Observation Consideration of admission/observation: Escalation of care including admission/observation considered Consult Healthcare Provider Management of the patient was discussed with: Hospitalist Lab Data MDM Lab Attestation statement: I reviewed the patient's lab results. 03/19/24 23:59 03/20/24 00:13 Labs: Lab Results 03/19/24 03/20/24 03/20/24 Range/Units 23:59 00:12 00:13 WBC 11.0 H (4.8-10.8) X10*3/uL RBC 3.05 L D (4.60-5.80) X10*6/uL Hgb 9.1 L D (14.0-18.0) g/dl Hct 28.2 L D (42.0-52.0) % MCV 92.5 (80.0-98.0) fL MCH 29.8 (27.0-33.0) pg MCHC 32.3 (31.0-36.0) g/dl RDW 18.7 H (11.0-16.0) % Plt Count 205 D (160-400) X10*3/uL MPV 10.3 (9.4-12.4) fL Immature Gran % (Auto) 0.6 H (0.0-0.4) % Neut % (Auto) 71.4 (45-73) % Lymph % (Auto) 14.2 L (20-40) % [place] % (Auto) 9.5 (2-11) % Eos % (Auto) 3.6 (0-4) % Baso % (Auto) 0.7 (0-2) % Lymph # (Auto) 1.6 (1.2-4.9) X10*3/uL [place] # (Auto) 1.1 (0.1-1.2) X10*3/uL Eos # (Auto) 0.4 (0.0-0.4) X10*3/uL Baso # (Auto) 0.1 (0.0-0.2) X10*3/uL Abs Immat Gran (auto) 0.07 H (0.00-0.03) X10*3/uL Absolute Neuts (auto) 7.9 (2.0-8.3) x10*3/uL Absolute Nucleated RBC 0.000 (0.0-0.012) X10*3/uL Nucleated RBC % (auto) 0.0 (0.0-0.2) /100WBC PT 21.8 H D (11.1-13.3) SEC INR 1.8 H (0.9-1.1) Sodium 134 L (135-145) mmol/L Potassium 3.4 (3.3-5.1) mmol/L Chloride 102 (96-108) mmol/L Carbon Dioxide 21 L (22-29) mmol/L Anion Gap 14 (12-20) BUN 12 (9-16) mg/dL Creatinine 0.82 (0.5-1.4) mg/dL Estim Creat Clear Calc 107.7 Estimated GFR > 60 Random Glucose 113 (60-115) mg/dL Lactic Acid 3.9 H* (0.5-2.0) mmol/L Lactic Acid F/U @ 2Hr (0.5-2.0) mmol/L Calcium 7.5 L (8.4-10.2) mg/dL Magnesium 1.8 (1.6-2.6) mg/dL Total Bilirubin 8.3 H (0.0-1.0) mg/dL Direct Bilirubin 4.5 H (0.0-0.5) mg/dL AST 42 H (5-37) U/L ALT 10 (0-40) U/L Alkaline Phosphatase 215 H (39-117) U/L Ammonia 48 (13-55) umol/L Troponin I High Sens < 2.7 (<3.5-35.0) ng/L Total Protein 6.5 (6.5-8.0) g/dL Albumin 2.2 L (3.5-5.0) g/dL Lipase 25 (8-78) U/L Gastric Occult Blood (NEG) Ethyl Alcohol 12 mg/dL Blood Type Antibody Screen 03/20/24 03/20/24 Range/Units 00:14 02:26 WBC (4.8-10.8) X10*3/uL RBC (4.60-5.80) X10*6/uL Hgb (14.0-18.0) g/dl Hct (42.0-52.0) % MCV (80.0-98.0) fL MCH (27.0-33.0) pg MCHC (31.0-36.0) g/dl RDW (11.0-16.0) % Plt Count (160-400) X10*3/uL MPV (9.4-12.4) fL Immature Gran % (Auto) (0.0-0.4) % Neut % (Auto) (45-73) % Lymph % (Auto) (20-40) % [place] % (Auto) (2-11) % Eos % (Auto) (0-4) % Baso % (Auto) (0-2) % Lymph # (Auto) (1.2-4.9) X10*3/uL [place] # (Auto) (0.1-1.2) X10*3/uL Eos # (Auto) (0.0-0.4) X10*3/uL Baso # (Auto) (0.0-0.2) X10*3/uL Abs Immat Gran (auto) (0.00-0.03) X10*3/uL Absolute Neuts (auto) (2.0-8.3) x10*3/uL Absolute Nucleated RBC (0.0-0.012) X10*3/uL Nucleated RBC % (auto) (0.0-0.2) /100WBC PT (11.1-13.3) SEC INR (0.9-1.1) Sodium (135-145) mmol/L Potassium (3.3-5.1) mmol/L Chloride (96-108) mmol/L Carbon Dioxide (22-29) mmol/L Anion Gap (12-20) BUN (9-16) mg/dL Creatinine (0.5-1.4) mg/dL Estim Creat Clear Calc Estimated GFR Random Glucose (60-115) mg/dL Lactic Acid (0.5-2.0) mmol/L Lactic Acid F/U @ 2Hr 2.0 (0.5-2.0) mmol/L Calcium (8.4-10.2) mg/dL Magnesium (1.6-2.6) mg/dL Total Bilirubin (0.0-1.0) mg/dL Direct Bilirubin (0.0-0.5) mg/dL AST (5-37) U/L ALT (0-40) U/L Alkaline Phosphatase (39-117) U/L Ammonia (13-55) umol/L Troponin I High Sens (<3.5-35.0) ng/L Total Protein (6.5-8.0) g/dL Albumin (3.5-5.0) g/dL Lipase (8-78) U/L Gastric Occult Blood POSITIVE (NEG) Ethyl Alcohol mg/dL Blood Type A Positive Antibody Screen NEGATIVE Critical Care Time Critical Care Time Critical Care Time: Yes Total Critical Care Time: 90 Attestation: I have personally provided critical care time. Time includes review of lab data, radiology results, discussion with consultants, and monitoring for potential decompensation. Intervention performed as documented. Discharge Plan Discharge Clinical Impression: Acute upper GI bleed Patient Disposition: Admitted As Inpatient Prescriptions: No Action propranolol 10 mg tablet 1 tab PO TID topiramate [Topamax] 200 mg tablet 1 tab PO BID tamsulosin 0.4 mg capsule 0.4 mg PO BEDTIME furosemide 40 mg tablet 1 tab PO DAILY spironolactone 100 mg tablet 1 tab PO DAILY fluoxetine [Prozac] 20 mg capsule 60 mg PO QAM mirtazapine 15 mg tablet 15 mg PO BEDTIME melatonin 10 mg tablet 10 mg PO BEDTIME risperidone 2 mg Tablet 2 mg PO BEDTIME sucralfate 1 gram Tablet 1 g PO BIDAC Qty: 60 0RF pantoprazole 40 mg tablet,delayed release (DR/EC) 40 mg PO BID Qty: 60 0RF ondansetron 4 mg tablet,disintegrating 4 mg PO Q8H PRN (Reason: nausea/vomiting) ammonium lactate 12 % Lotion 1 appl topical BID Qty: 400 2RF Protocol: Apply to: Apply to: Whole body amoxicillin-pot clavulanate 400-57 mg/5 mL Suspension For Reconstitution 10 ml PO BID 5 Days Qty: 100 0RF guaifenesin [Mucinex] 600 mg Tablet Extended Release 12hr 600 mg PO BID Qty: 14 0RF quetiapine [Seroquel] 50 mg Tablet 25 mg PO BID Qty: 90 0RF lactulose [Constulose] 10 gram/15 mL solution 30 ml PO BID PRN (Reason: Constipation) Print Language: Haitian
[2024-03-20] VITALS (16 sets, daily range): BP systolic 99–119; BP diastolic 46–59; PULSE 59–85; RESP 12–18; TEMP 36.1–37; O2SAT 95–99; BMI 34.1
[2024-03-20 00:06] LABS: MANUAL DIFF FLAG NO
[2024-03-20 00:08] LABS: Basophils Absolute Auto 0.1 X10*3/uL (0.0-0.2); Basophils Percent Auto 0.7 % (0-2); Eosinophils Absolute Auto 0.4 X10*3/uL (0.0-0.4); Eosinophils Percent Auto 3.6 % (0-4); Hematocrit 28.2 % (42.0-52.0); Hemoglobin 9.1 g/dl (14.0-18.0); Imm Gran Abs Auto 0.07 X10*3/uL (0.00-0.03); Imm Gran Pct Auto 0.6 % (0.0-0.4); Lymphocytes Absolute Auto 1.6 X10*3/uL (1.2-4.9); Lymphocytes Percent Auto 14.2 % (20-40); Mean Corpuscular HGB Conc 32.3 g/dl (31.0-36.0); Mean Corpuscular Hemoglobin 29.8 pg (27.0-33.0); Mean Corpuscular Volume 92.5 fL (80.0-98.0); Mean Platelet Volume 10.3 fL (9.4-12.4); Monocytes Absolute Auto 1.1 X10*3/uL (0.1-1.2); Monocytes Percent Auto 9.5 % (2-11); Neutrophils Absolute Auto 7.9 x10*3/uL (2.0-8.3); Neutrophils Percent Auto 71.4 % (45-73); Platelet Count 205 X10*3/uL (160-400); Red Blood Count 3.05 X10*6/uL (4.60-5.80); Red Cell Distribution Width 18.7 % (11.0-16.0)
[2024-03-20] MEDS: 0.9 % Sodium Chloride 1,000 ML 999 ML IVCONT (00:15)
[2024-03-20 00:16] LABS: Ethanol 12 mg/dL; INTERNATIONAL NORM RATIO 1.8 (0.9-1.1); Prothrombin Time 21.8 SEC (11.1-13.3)
[2024-03-20] MEDS: cefTRIAXone sodium 1 GM in 0.9 % Sodium Chloride 50 ML IV ×2 (00:16→21:40)
[2024-03-20] MEDS: ondansetron HCL 4 MG/2 ML VIAL IVPUSH (00:17)
[2024-03-20] MEDS: Octreotide Acetate 100 MCG/ML AMPUL 50 MCG IVPUSH (00:18)
[2024-03-20] MEDS: Pantoprazole Sodium 40 MG/10 ML VIAL 80 MG IVPUSH (00:18)
[2024-03-20 00:25] LABS: GASOB Int Neg Ctl Valid YES; GASOB Int Pos Ctl Valid YES; GASOB Lot 20422; Occult Blood Gastric POSITIVE (NEG)
[2024-03-20 00:27] LABS: Troponin-I High Sensitivity < 2.7 ng/L (<3.5-35.0)
[2024-03-20] MEDS: Prochlorperazine Edisylate 10 MG/2 ML VIAL IVPUSH (00:28)
[2024-03-20 00:29] LABS: Ammonia 48 umol/L (13-55)
[2024-03-20 00:35] LABS: Lactic Acid 3.9 mmol/L (0.5-2.0)
[2024-03-20] MEDS: Metoclopramide HCl 10 MG/2 ML VIAL IVPUSH (00:41)
[2024-03-20 00:43] LABS: Alanine Aminotransferase 10 U/L (0-40); Albumin Level 2.2 g/dL (3.5-5.0); Alkaline Phosphatase 215 U/L (39-117); Anion Gap 14 (12-20); Aspartate Amino Transferase 42 U/L (5-37); Bilirubin Direct 4.5 mg/dL (0.0-0.5); Bilirubin Total 8.3 mg/dL (0.0-1.0); Blood Urea Nitrogen 12 mg/dL (9-16); Calcium 7.5 mg/dL (8.4-10.2); Carbon Dioxide 21 mmol/L (22-29); Chloride 102 mmol/L (96-108); Creatinine Clr Calc Pharmacy 107.7; Estimated Glomerular Filt Rate > 60; Glucose Random 113 mg/dL (60-115); Lipase 25 U/L (8-78); Magnesium 1.8 mg/dL (1.6-2.6); Potassium 3.4 mmol/L (3.3-5.1); Sodium 134 mmol/L (135-145); Total Protein 6.5 g/dL (6.5-8.0)
--- NOTE | 2024-03-20 00:43 | MHC.EDTECH ---
PATIENT WAS BIBA FROM HOME ,VITALS TAKEN ,BLOOD DRAWN INCLUDING BOTH SETS OF BLOOD CULTURE AND LACTIC ACID ALL SENT TO LAB ,EKG TAKEN AND WAS READ BY PROVIDER ,PATIENT VOMITED SEVERAL TIMES CARE GIVEN EACH TIMES ,PATIENT WAS CHANGE INTO HOSPITAL ATTIRE ,CALL [facility] WITHIN PATIENT REACH .
[2024-03-20] MEDS: Albumin Human 25 % 100 ML IV ×2 (01:52→02:50)
[2024-03-20 02:17] LABS: Reflex Lactate? Lactic Acid Added
--- NOTE | 2024-03-20 02:28 | MHC.EDTECH ---
2ND LACTIC ACOID DRAWN AND SENT TO LAB ,VITALS TAKEN ,PATIENT COMFORTABLE AT THIS TIME RESTING .
--- NOTE | 2024-03-20 05:48 | P.HPHOSP_ITS ---
History of Present Illness Date of Service: 03/20/24 Chief Complaint: Vomiting blood This is a 58-year-old male with pertinent history of alcohol use disorder with alcoholic liver cirrhosis, mood disorder, gastroesophageal reflux disease, mood disorder, BPH who presents to the emergency department for evaluation of blood in vomitus. Patient states he started having multiple episodes of vomiting 1 day prior to presentation. Few episodes had blood in vomitus. No fever, chills or abdominal discomfort. His last alcoholic drink was 1 day prior to presentation. States he is unable to tolerate any p.o. intake. Does have a history of alcohol withdrawal. No history of alcohol withdrawal seizures. No shortness of breath, palpitations, change in urinary or bowel habits. In the emergency department, patient was given IV Protonix, IV octreotide. Review of Systems 2 Constitutional: Constitutional: Reports fatigue Cardiovascular: Cardiovascular: Reports no additional cardiovascular complaints Respiratory: Respiratory: Reports no additional respiratory complaints Gastrointestinal: Gastrointestinal: Reports nausea, Reports vomiting and Reports hematemesis Genitourinary: Genitourinary: Reports no additional male genitourinary complaints Endocrine: Endocrine: Reports fatigue [facility] Medical History PTSD (post-traumatic stress disorder) Hyponatremia Acute hyponatremia NATHANIEL (acute kidney injury) Acute metabolic encephalopathy [place] Alcoholic cirrhosis of liver with ascites Prostate cancer Depression Hyperlipidemia Hypertension Anxiety Social History Household Members: Significant Other Household Members Other:: [facility] Do you presently have visiting nurse or other home services: No Unable to assess alcohol history related to: Refusing to respond Alcohol intake: current Alcohol intake frequency: former alcohol drinker Patient Tobacco Use Status: Current everyday Tobacco user Tobacco use type: Cigarette Cigarettes Per Day: 5 Years Smoked: 25 Smoked in Last 30 Days: Yes e-Cigarette/Vaping Use: Never Used Second Hand Smoke Exposure: No Use of substances other than those prescribed or required for medical reasons: Yes Substance Use Type: Marijuana Substance Use Frequency: Chronic Longstanding Advance Directives: Yes Advance Directives on File: Yes Advance Directives Date on File: 11/11/21 Do you have a plan to hurt others: No Plan service: No Current occupational status: disabled Meds Allergies Allergy/AdvReac Type Severity Reaction Status Date / Time Fish Containing Products Allergy Severe THROAT Verified 03/19/24 23:46 SWELLING peanut [Peanut] Allergy Severe THROAT Verified 03/19/24 23:46 SWELLING Home Medications ?Medication ?Instructions ?Recorded ?Confirmed ?Last Taken ?Type propranolol 10 mg tablet 1 tab PO TID 11/11/21 03/08/24 02/22/24 History topiramate 200 mg tablet (Topamax) 1 tab PO BID 11/11/21 03/08/24 02/22/24 History fluoxetine 20 mg capsule (Prozac) 60 mg PO QAM 02/06/22 03/08/24 02/22/24 History furosemide 40 mg tablet 1 tab PO DAILY 10/17/22 03/08/24 02/22/24 History spironolactone 100 mg tablet 1 tab PO DAILY 10/17/22 03/08/24 02/22/24 History tamsulosin 0.4 mg capsule 0.4 mg PO BEDTIME 10/17/22 03/08/24 02/22/24 History melatonin 10 mg tablet 10 mg PO BEDTIME Insomnia 11/13/23 03/08/24 Unknown History mirtazapine 15 mg tablet 15 mg PO BEDTIME 11/13/23 03/08/24 02/22/24 History risperidone 2 mg tablet 2 mg PO BEDTIME 12/27/23 03/08/24 02/22/24 History ondansetron 4 mg disintegrating 4 mg PO Q8H PRN nausea/vomiting 03/01/24 03/08/24 Unknown History tablet lactulose 10 gram/15 mL oral 30 ml PO BID PRN Constipation 03/08/24 03/08/24 Unknown History solution (Constulose) Physical Exam 2 Vital Signs and Narrative: Vital Signs: Last Vital Signs Temp 98.2 F 03/20/24 05:43 Pulse 79 03/20/24 05:43 Resp 15 03/20/24 05:43 BP 102/48 L 03/20/24 05:43 Pulse Ox 95 03/20/24 05:43 O2 Del Method Room Air 03/20/24 05:43 BMI result Body Mass Index 32.7 Middle-aged male lying in bed in no distress Neck supple, no JVD, pallor present Regular rate and rhythm, S1-S2 heard Regular breath sounds bilaterally, no wheezing or crackles appreciated Abdomen with mild distention, nontender, no guarding, no rigidity Patient is awake, alert and oriented to self, place, time and person ; no focal motor deficit Psych: Normal mood Results Labs 03/19/24 23:59 03/20/24 00:13 Labs: Laboratory Results - last 24 hr 03/19/24 03/20/24 03/20/24 23:59 00:12 00:13 MCV 92.5 MCH 29.8 MCHC 32.3 RDW 18.7 H Plt Count 205 D MPV 10.3 Immature Gran % (Auto) 0.6 H Neut % (Auto) 71.4 Lymph % (Auto) 14.2 L [place] % (Auto) 9.5 Eos % (Auto) 3.6 Baso % (Auto) 0.7 Lymph # (Auto) 1.6 [place] # (Auto) 1.1 Eos # (Auto) 0.4 Baso # (Auto) 0.1 Abs Immat Gran (auto) 0.07 H Absolute Neuts (auto) 7.9 Absolute Nucleated RBC 0.000 Nucleated RBC % (auto) 0.0 PT 21.8 H D INR 1.8 H Anion Gap 14 Estim Creat Clear Calc 107.7 Estimated GFR > 60 Random Glucose 113 Lactic Acid 3.9 H* Lactic Acid F/U @ 2Hr Calcium 7.5 L Magnesium 1.8 Total Bilirubin 8.3 H Direct Bilirubin 4.5 H AST 42 H ALT 10 Alkaline Phosphatase 215 H Ammonia 48 Troponin I High Sens < 2.7 Total Protein 6.5 Albumin 2.2 L Lipase 25 Gastric Occult Blood Ethyl Alcohol 12 Blood Type Antibody Screen 03/20/24 03/20/24 00:14 02:26 MCV MCH MCHC RDW Plt Count MPV Immature Gran % (Auto) Neut % (Auto) Lymph % (Auto) [place] % (Auto) Eos % (Auto) Baso % (Auto) Lymph # (Auto) [place] # (Auto) Eos # (Auto) Baso # (Auto) Abs Immat Gran (auto) Absolute Neuts (auto) Absolute Nucleated RBC Nucleated RBC % (auto) PT INR Anion Gap Estim Creat Clear Calc Estimated GFR Random Glucose Lactic Acid Lactic Acid F/U @ 2Hr 2.0 Calcium Magnesium Total Bilirubin Direct Bilirubin AST ALT Alkaline Phosphatase Ammonia Troponin I High Sens Total Protein Albumin Lipase Gastric Occult Blood POSITIVE Ethyl Alcohol Blood Type A Positive Antibody Screen NEGATIVE Assessment and Plan (1) Acute upper GI bleed: Status: Acute Plan his is a 58-year-old male with pertinent history of alcohol use disorder with alcoholic liver cirrhosis, mood disorder, gastroesophageal reflux disease who presents to the emergency department for evaluation of blood in vomitus. #. Acute upper GI bleed: Will admit patient with cardiac monitoring. Resuscitated with IV crystalloids. Initiated on IV Protonix and IV octreotide. Also initiated on empiric IV Rocephin in a patient with ascites and liver cirrhosis. Consulted Gastroenterology, appreciate assistance. Will keep patient NPO. Close hemodynamic monitoring #. Acute blood loss anemia in the setting of above: Close monitoring of H&H. Hemoglobin above transfusion threshold #. Alcohol use disorder: Initiated on phenobarb protocol in the ER. Consulting Addiction Team. Monitor CIWA. Initiating thiamine #. Acute lactic acidosis: Due to alcoholism and liver disease. No sepsis #. Hyponatremia due to cirrhosis #. Mood disorder: Resume home mood stabilizers once able to take p.o. #. Alcoholic liver cirrhosis: Hold spironolactone and Lasix in the setting of GI bleed #. Leukocytosis, reactive: No sepsis. On empiric antibiotics as above Med rec pending DVT prophylaxis: Mechanical Full code Admit as inpatient and will require two night minimum hospital stay for close hemodynamic monitoring, close monitoring of H&H in a patient with high risk of decompensation (as above), which is not possible in a lesser acute setting. Specialist consult pending Quality Stroke Does the patient have a stroke diagnosis?: No VTE Prior VTE?: No VTE Risk Level:: Medical - moderate - high VTE Device Contraindication: Treatment Not Indicated VTE Drug Contraindication: N/A - Med Ordered
[2024-03-20] MEDS: Octreotide Acetate 500 MCG in 0.9 % Sodium Chloride 500 ML 50.1 MCG IVCONT ×2 (06:21→16:22)
[2024-03-20] MEDS: Pantoprazole Sodium 40 MG/10 ML VIAL IVPUSH ×2 (06:21→17:08)
[2024-03-20 06:25] LABS: Alanine Aminotransferase 8 U/L (0-40); Albumin Level 2.6 g/dL (3.5-5.0); Alkaline Phosphatase 177 U/L (39-117); Anion Gap 13 (12-20); Aspartate Amino Transferase 26 U/L (5-37); Blood Urea Nitrogen 12 mg/dL (9-16); Calcium 7.5 mg/dL (8.4-10.2); Carbon Dioxide 23 mmol/L (22-29); Chloride 105 mmol/L (96-108); Creatinine Clr Calc Pharmacy 107.7; Estimated Glomerular Filt Rate > 60; Glucose Random 125 mg/dL (60-115); Potassium 3.5 mmol/L (3.3-5.1); Sodium 137 mmol/L (135-145); Total Protein 5.9 g/dL (6.5-8.0)
[2024-03-20] MEDS: PHENobarbitaL sodium 130 MG/ML IM ONCE 264 MG IM (06:51)
--- NOTE | 2024-03-20 07:40 | PM.EVENT ---
Event Note Date of Service: 03/20/24 Event Note: Patient admitted this morning with hematemsis, known history of alcoholic liver disease. Initial hgb 9, INR 1.8, hemodynamically stable. vital stable. exam: distended abd, mild tenderness. O/w comfortable his is a 58-year-old male with pertinent history of alcohol use disorder with alcoholic liver cirrhosis, mood disorder, gastroesophageal reflux disease who presents to the emergency department for evaluation of blood in vomitus. Acute upper GI bleed: Will admit patient with cardiac monitoring. Resuscitated with IV crystalloids. Initiated on IV Protonix and IV octreotide. Also initiated on empiric IV Rocephin in a patient with ascites and liver cirrhosis. Consulted Gastroenterology, appreciate assistance. Will keep patient NPO. Close hemodynamic monitoring UGIB/ABLA, concern for esoph variceal bleed -repeat H/H -continue PPI, octreotide -empric Ceftriaxone -GI consult Alcohol use disorder at risk for withdrawal -Phenobarbital, thiamine, folate, CIWA -addiction med consult Acute lactic acidosis, d/t liver disease NOT sepsis Hyponatremia due to cirrhosis, mild and resolved Mood disorder: Resume home mood stabilizers once able to take p.o. Alcoholic liver cirrhosis: Hold spironolactone and Lasix in the setting of GI bleed Paracentesis for ascietes Coagulopathy, INR 1.8, Vitamin K 10 Leukocytosis, reactive: No evidence of sepsis. On empiric antibiotics as above Med rec pending DVT prophylaxis: Mechanical Full code need for inpt: Acute GIB, anemia and need further work up, including expert assessment Time Spent With Patient Time: Total time managing care of this patient today _25___ minutes.
[2024-03-20] MEDS: 0.9 % Sodium Chloride Flush 3 ML SYRINGE IVFLUSH ×3 (08:38→21:52)
[2024-03-20] MEDS: Thiamine HCL 100 MG in 0.9 % Sodium Chloride 100 ML 202 MG IV (08:38)
[2024-03-20] MEDS: PHENobarbitaL sodium 130 MG/ML VIAL IM Q3Hx2 198 MG IM ×2 (09:37→13:39)
[2024-03-20] MEDS: Phytonadione (Vit K1) Oral 10 MG/ML AMPUL PO (09:40)
--- NOTE | 2024-03-20 09:53 | PHA.MEDREC ---
Pharmacy Consult ? Medication Reconciliation Pharmacy has completed the medication reconciliation. spoke with to confirm changes in medications. She reports lasix is 40mg once daily, quetiapine is 50mg BID (she reports he has been very anxious lately), his lactulose is as needed (she reports he is having regular bowel movements), He is still using mucinex q12h, She confirmed he started potassium 20 mEq tablets daily. He was put on ciprofloxacin at [facility] for 500mg q12h for a 3 day supply, reports that he started on March 13 and still has 3 pills left as patient has not been compliant with it. She reports no changes with other medications.
[2024-03-20 10:18] LABS: Hematocrit 25.1 % (42.0-52.0); Hemoglobin 8.3 g/dl (14.0-18.0); Mean Corpuscular HGB Conc 33.1 g/dl (31.0-36.0); Mean Corpuscular Hemoglobin 30.2 pg (27.0-33.0); Mean Corpuscular Volume 91.3 fL (80.0-98.0); PLT CLUMP 1; Red Blood Count 2.75 X10*6/uL (4.60-5.80); Red Cell Distribution Width 18.9 % (11.0-16.0)
--- NOTE | 2024-03-20 10:26 | MHC.CM.PN ---
IMM 03/20/24, Pt lives with his finance, HCP is on file and confirmed, naming: Mike and Becka. Pt reports that he is scheduled to begin home VNA services, including PT from a VNA, he does not know from which agency. He also reports that this week he is to be evaluated for [employer] services in the home. At this time, his fiance assists him with personal care. Fiance will transport home at [place]. PCP confirmed: Dr. Soria. DCP: home, resume services. CM to follow and assist with DC planning.
--- NOTE | 2024-03-20 10:46 | PM.PROC ---
Brief Operative Note Date of procedure: 03/20/24 Pre-op diagnosis: Ascites, abdominal pain Post-op diagnosis: same Procedure: US diagnostic paracentesis Small amount of perihepatic ascites present. 60 cc clear yellow fluid aspirated for analysis. No immediate complications Condition: stable
[2024-03-20 10:48] LABS: Mean Platelet Volume 10.8 fL (9.4-12.4); Platelet Count 136 X10*3/uL (160-400); White Blood Count 8.5 X10*3/uL (4.8-10.8)
[2024-03-20] MEDS: Lidocaine HCl 1 % 20 ML VIAL 5 ML SUBCUT (11:27)
[2024-03-20 11:46] LABS: MN% 91.7 %; PMN% 8.3 %; RBC Peritoneal Fluid < 0.002 X10*6/uL; WBC Peritoneal Fluid 0.036 X10*3/uL
[2024-03-20] MEDS: FLUoxetine HCl 20 MG CAPSULE 60 MG PO (11:52)
[2024-03-20] MEDS: guaiFENesin LA 600 MG TAB.ER.12H PO ×2 (11:53→21:51)
[2024-03-20] MEDS: Topiramate 100 MG TABLET 200 MG PO ×2 (11:53→21:51)
[2024-03-20 13:14] LABS: BF Shift QC OK YES; Lymphocyte Peritoneal Fl 84 %; Monocytes Peritoneal Fl 15 %; Neutrophils Peritoneal Fluid 1 %
--- NOTE | 2024-03-20 13:45 | P.CNGI_ITS ---
History of Present Illness Data of Consult Service Date: 03/20/24 Requesting physician: [facility] Primary Care Provider: Fransisco Soria MD HPI Reason for consult: vomiting 58-year-old male with alcohol use disorder with alcoholic liver cirrhosis, mood disorder, gastroesophageal reflux disease, , BPH who I am seeing for assessment for hematemesis. Patient had been feeling off last few days, says had been alcohol free since last presentation few weeks back, but had 2 alcohol slushies. He noted some bloody emesis yesterday morning and felt weak, so came to the ED, initially the vomit was more like mucous then became more coffee ground. Denies taking nsaids, blood thinners. Denies abdominal pain but admits to distention. No fevers or chills, stools noted to be darker. No history of alcohol withdrawal seizures. No shortness of breath, palpitations, change in urinary or bowel habits. Last EGD 03/08--severe erosive esophagitis with flat varices. LABS: HGB 8.3 g/dl today, baseline around 8-9 g/dl, bili 8, dindirect--4.5 Review of Systems 2 Review of Systems: Constitutional : No Weight loss, No Fever, No Chills ENT/Mouth : No sore throat, No Rhinorrhea Eyes: No Swelling, No Redness Cardiovascular : No Chest Pain, No SOB, No Edema Respiratory : No Cough, No Sputum, No Wheezing Gastrointestinal : see HPI Genitourinary : NO Dysuria, No Urinary Frequency, No Hematuria, No Urgency Musculoskeletal : + joint pain, No Myalgias, No Joint Swelling Skin : No Skin Lesions, No rash Neuro : No Weakness, No Numbness, No Dizziness, No Headache Psych : No Anxiety/Panic, No Depression Heme/Lymph: No Bruising, No Lymphadenopathy Endocrine : No Polyuria, No Polydipsia All other systems reviewed and are negative. [facility] Past Medical History Medical History PTSD (post-traumatic stress disorder) Hyponatremia Acute hyponatremia NATHANIEL (acute kidney injury) Acute metabolic encephalopathy [place] Alcoholic cirrhosis of liver with ascites Prostate cancer Depression Hyperlipidemia Hypertension Anxiety Family History Pertinent family history: no Fh of liver disease Social History Social History Household Members: Spouse Household Members Other:: fiancee Housing: Condominium Do you presently have visiting nurse or other home services: Yes Unable to assess alcohol history related to: Refusing to respond Alcohol intake: current Alcohol intake frequency: former alcohol drinker Patient Tobacco Use Status: Current everyday Tobacco user Tobacco use type: Cigarette Cigarettes Per Day: 1 Years Smoked: 25 e-Cigarette/Vaping Use: Currently Using Second Hand Smoke Exposure: No Substance Use Type: Marijuana Advance Directives Date on File: 11/11/21 service: No Current occupational status: disabled Meds Allergies Allergy/AdvReac Type Severity Reaction Status Date / Time Fish Containing Products Allergy Severe THROAT Verified 03/19/24 23:46 SWELLING peanut [Peanut] Allergy Severe THROAT Verified 03/19/24 23:46 SWELLING Active Medications: Current Medications Acetaminophen (Acetaminophen 325 Mg Tablet) 650 mg PO Q6H PRN PRN Reason: Pain, Mild (Pain Scale 1-3) Acetaminophen (Acetaminophen Supp 650 Mg Supp.Rect) 650 mg [place] Q6H PRN PRN Reason: Pain, Mild (Pain Scale 1-3) Fluoxetine HCl (Fluoxetine Hcl 20 Mg Capsule) 60 mg PO DAILY [facility] Last Admin: 03/20/24 11:52 Dose: 60 mg Furosemide (Furosemide 40 Mg Tablet) 40 mg PO DAILY [facility]; Protocol Guaifenesin (Guaifenesin La 600 Mg Tab.Er.12h) 600 mg PO Q12H [facility] Last Admin: 03/20/24 11:53 Dose: 600 mg Ceftriaxone Sodium 1 gm/ (Sodium Chloride) 50 mls @ 100 mls/hr IV Q24H [facility] Octreotide Acetate 500 mcg/ (Sodium Chloride) 501 mls @ 50.1 mls/hr IVCONT .Q10H [facility] Last Admin: 03/20/24 06:21 Dose: 50 mcg/hr, 50.1 mls/hr Thiamine HCl 100 mg/ Sodium (Chloride) 101 mls @ 202 mls/hr IV DAILY [facility] Last Infusion: 03/20/24 09:30 Dose: Infused Lactic Acid (Ammonium Lactate 12 % Lotion 226 Gm Bottle) 1 appl TOPICAL BID [facility]; Protocol Lactulose (Lactulose 20 Gm/30 Ml Solution) 20 gm PO BID PRN PRN Reason: Constipation Melatonin (Melatonin 3 Mg Tablet) 9 mg PO BEDTIME [facility] Mirtazapine (Mirtazapine 15 Mg Tablet) 15 mg PO BEDTIME [facility] Omeprazole (Omeprazole 20 Mg Capsule.Dr) 20 mg PO BID@0630,1630 [facility] Ondansetron HCl (Ondansetron Hcl 4 Mg/2 Ml Vial) 4 mg IVPUSH Q8H PRN PRN Reason: Nausea and Vomiting Pantoprazole Sodium (Pantoprazole Sodium 40 Mg/10 Ml Vial) 40 mg IVPUSH BID@0630,1630 [facility] Last Admin: 03/20/24 06:21 Dose: 40 mg Pharmacy Consult (Consult Rx Etoh Phenob Im/Po) 1 each MISCELLANE ONCE PRN; Protocol PRN Reason: Consult order Phenobarbital (Phenobarbital 15 Mg Tablet) 45 mg PO BID [facility]; Protocol Stop: 03/22/24 09:01 Phenobarbital (Phenobarbital 30 Mg Tablet) 30 mg PO BID [facility]; Protocol Stop: 03/24/24 09:01 Phenobarbital (Phenobarbital 30 Mg Tablet) 30 mg PO DAILY [facility]; Protocol Stop: 03/26/24 09:01 Potassium Chloride (Potassium Chloride Er 20 Meq Tab.Er.Prt) 20 meq PO DAILY [facility] Propranolol HCl (Propranolol Hcl 10 Mg Tablet) 10 mg PO TID [facility]; Protocol Quetiapine Fumarate (Quetiapine Fumarate 50 Mg Tablet) 50 mg PO BID [facility] Risperidone (Risperidone 2 Mg Tablet) 2 mg PO BEDTIME [facility] Sodium Chloride (0.9 % Sodium Chloride Flush 3 Ml Syringe) 3 ml IVFLUSH QSHIFT [facility] Last Admin: 03/20/24 08:38 Dose: 3 ml Spironolactone (Spironolactone 25 Mg Tablet) 100 mg PO DAILY [facility]; Protocol Sucralfate (Sucralfate 1 Gm Tablet) 1 gm PO BIDAC [facility] Tamsulosin HCl (Tamsulosin Hcl 0.4 Mg Capsule) 0.4 mg PO BEDTIME [facility] Topiramate (Topiramate 100 Mg Tablet) 200 mg PO BID [facility] Last Admin: 03/20/24 11:53 Dose: 200 mg Home Medications ?Medication ?Instructions ?Recorded ?Confirmed ?Last Taken ?Type propranolol 10 mg tablet 1 tab PO TID 11/11/21 03/20/24 02/22/24 History topiramate 200 mg tablet (Topamax) 1 tab PO BID 11/11/21 03/20/24 02/22/24 History fluoxetine 20 mg capsule (Prozac) 60 mg PO QAM 02/06/22 03/20/24 02/22/24 History furosemide 40 mg tablet 1 tab PO DAILY 10/17/22 03/20/24 02/22/24 History spironolactone 100 mg tablet 1 tab PO DAILY 10/17/22 03/20/24 02/22/24 History tamsulosin 0.4 mg capsule 0.4 mg PO BEDTIME 10/17/22 03/20/24 02/22/24 History melatonin 10 mg tablet 10 mg PO BEDTIME Insomnia 11/13/23 03/20/24 Unknown History mirtazapine 15 mg tablet 15 mg PO BEDTIME 11/13/23 03/20/24 02/22/24 History risperidone 2 mg tablet 2 mg PO BEDTIME 12/27/23 03/20/24 02/22/24 History ondansetron 4 mg disintegrating 4 mg PO Q8H PRN nausea/vomiting 03/01/24 03/20/24 Unknown History tablet lactulose 10 gram/15 mL oral 30 ml PO BID PRN Constipation 03/08/24 03/20/24 Unknown History solution (Constulose) guaifenesin 600 mg tablet, 600 mg PO Q12H 03/20/24 03/20/24 Unknown History extended release 12 hr (Mucinex) potassium chloride 20 mEq 20 meq PO DAILY 03/20/24 03/20/24 Unknown History tablet,extended release quetiapine 50 mg tablet (Seroquel) 50 mg PO BID 03/20/24 03/20/24 Unknown History Physical Exam 2 Vital Signs: Vital Signs: Last Vital Signs Temp 97.1 F 03/20/24 12:45 Pulse 64 03/20/24 12:45 Resp 12 03/20/24 12:45 BP 102/48 L 03/20/24 12:45 Pulse Ox 97 03/20/24 12:45 O2 Del Method Room Air 03/20/24 12:45 BMI result Body Mass Index 32.7 EXAM: GENERAL: The patient is dishevelled, jaundice VITAL SIGNS:see workflow HEENT: icteric sclerae, PERRLA, EOMI. Oropharynx clear. Moist mucous membranes. Conjunctivae appear pale. No thyroid mass. CHEST: Chest wall is nontender. HEART: Regular rate and rhythm without murmurs. LUNGS: Clear to auscultation bilaterally. ABDOMEN: Soft, positive bowel sounds, mildly tender epigastrium--possible ascites, no organomegaly.no flank tenderness SKIN: No rash, no excessive bruising, petechiae, or purpura. NEUROLOGIC: Cranial nerves II-XII intact without motor/sensory deficit. Psych: normal affect Results Labs 03/21/24 06:03 03/20/24 06:06 Labs: Short CBC 03/19/24 03/20/24 Range/Units 23:59 10:00 WBC 11.0 H 8.5 (4.8-10.8) X10*3/uL Hgb 9.1 L D 8.3 L (14.0-18.0) g/dl Hct 28.2 L D 25.1 L (42.0-52.0) % Plt Count 205 D 136 L D (160-400) X10*3/uL BMP 03/20/24 03/20/24 00:13 06:06 Sodium 134 L 137 Potassium 3.4 3.5 Chloride 102 105 Carbon Dioxide 21 L 23 BUN 12 12 Creatinine 0.82 0.82 Calcium 7.5 L 7.5 L Liver Function 03/20/24 03/20/24 Range/Units 00:13 06:06 Total Bilirubin 8.3 H 8.0 H (0.0-1.0) mg/dL Direct Bilirubin 4.5 H (0.0-0.5) mg/dL AST 42 H 26 (5-37) U/L ALT 10 8 (0-40) U/L Alkaline Phosphatase 215 H 177 H (39-117) U/L Albumin 2.2 L 2.6 L (3.5-5.0) g/dL Assessment and Plan (1) Acute upper GI bleed: Status: Acute (2) ETOH abuse: Status: Acute Plan 1/ Acute blood loss anemia, still using alcohol, may eb MW tear vs ulcerative esophagitis, PUD, less likely varices based on last EGD 2/ Jaundice due to acute on chronic liver failure and alcoholic cirrhosis from ongoing alcohol use, possibly from ischemia and blood loss PLAN: /1 - EGD tomorrow 2/ resus with fluids, aim for HGB around 8-9 g/dl 3/ IV PPI and octreotide 4/ alcohol withdrawal protocol and MV 5/ check LDH, haptoglobin and peripheral smear r/o zieves syndrome with hemolytic anemia Procedures Date of Service Date of Service: 03/21/24
[2024-03-20 14:22] LABS: Immature Retic Fraction 19.9 % (2.3-13.4); Retic HGB Equivalent 33.9 pg (30.0-35.0); Reticulocyte Percent 1.6 % (0.5-1.8); Reticulocytes Absolute 0.045 X10*6/uL (0.026-0.095)
[2024-03-20 14:30] LABS: Lactate Dehydrogenase 244 U/L (118-273)
[2024-03-20] MEDS: Propranolol HCL 10 MG TABLET PO (15:05)
--- NOTE | 2024-03-20 15:49 | MHC.EDTECH ---
THIS PCT ASSUMED CARE OF PATIENT AT 1500 ,VITALS TAKEN ,THIS PCT ASKED PATIENT IF HE VOID AT ALL SINCE HE CAME HERE YESTERDAY ,PATIENT SAID, NO HE DID NOT VOID SINCE YESTERDAY. THIS PCT INFORM RN GABRIELLA THIS PCT DID BLADDER SCAN ,PATIENT HAD 349 ML IN HIS BLADDER ,PATIENT AT BEDSIDE ,PATIENT WAS GIVEN CLEAN BED PADS AND BLANKET AND WAS BOOSTED UP IN BED ,CALL [facility] WITHIN PATIENT REACH .
--- NOTE | 2024-03-20 16:52 | MHC.EDTECH ---
patient void 450 ml urine ,also had a large dark loose stool ,rn aware ,care given ,And bedding change ,urine sample and stool sample collected and sent to lab .Patient ate 2 jello for snack .
[2024-03-20 16:57] LABS: OBS Int Ctl Valid YES; OBS1 POSITIVE (NEGATIVE)
[2024-03-20] MEDS: Sucralfate 1 GM TABLET PO (17:08)
[2024-03-20] MEDS: Omeprazole 20 MG CAPSULE.DR PO (17:08)
[2024-03-20 17:10] LABS: Amphetamine Screen Urine Not Detected (Not Detect); Barbiturates, Urine POSITIVE (Not Detect); Benzodiazepines Screen Urine Not Detected (Not Detect); Buprenorphine Scr Not Detected (Not Detect); Cannabinoid Screen Urine POSITIVE (Not Detect); Cocaine Screen Urine Not Detected (Not Detect); Fentanyl, urine Not Detected (Not Detect); Methadone Screen, Urine Not Detected (Not Detect); Opiate Screen Urine Not Detected (Not Detect); Oxycodone Screen Urine Not Detected (Not Detect); Phencyclidine Screen Urine Not Detected (Not Detect)
[2024-03-20] MEDS: Mirtazapine 15 MG TABLET PO (21:49)
[2024-03-20] MEDS: Melatonin 3 MG TABLET 9 MG PO (21:49)
[2024-03-20] MEDS: QUEtiapine Fumarate 50 MG TABLET PO (21:50)
[2024-03-20] MEDS: PHENobarbitaL 15 MG TABLET 45 MG PO (21:50)
[2024-03-20] MEDS: risperiDONE 2 MG TABLET PO (21:51)
[2024-03-21] VITALS (31 sets, daily range): BP systolic 90–121; BP diastolic 43–80; PULSE 57–81; RESP 14–20; TEMP 34.1–37; O2SAT 95–100
[2024-03-21] MEDS: Octreotide Acetate 500 MCG in 0.9 % Sodium Chloride 500 ML 50.1 MCG IVCONT ×3 (03:06→22:52)
[2024-03-21 06:19] LABS: MANUAL DIFF FLAG NO
[2024-03-21 06:22] LABS: Basophils Percent Auto 0.9 % (0-2); Eosinophils Absolute Auto 0.3 X10*3/uL (0.0-0.4); Eosinophils Percent Auto 6.4 % (0-4); Hematocrit 22.4 % (42.0-52.0); Hemoglobin 7.4 g/dl (14.0-18.0); Imm Gran Abs Auto 0.02 X10*3/uL (0.00-0.03); Imm Gran Pct Auto 0.5 % (0.0-0.4); Lymphocytes Absolute Auto 0.8 X10*3/uL (1.2-4.9); Lymphocytes Percent Auto 19.9 % (20-40); Mean Corpuscular Hemoglobin 30.3 pg (27.0-33.0); Mean Corpuscular Volume 91.8 fL (80.0-98.0); Mean Platelet Volume 10.3 fL (9.4-12.4); Monocytes Absolute Auto 0.4 X10*3/uL (0.1-1.2); Monocytes Percent Auto 9.2 % (2-11); Neutrophils Absolute Auto 2.7 x10*3/uL (2.0-8.3); Neutrophils Percent Auto 63.1 % (45-73); Platelet Count 127 X10*3/uL (160-400); Red Blood Count 2.44 X10*6/uL (4.60-5.80); White Blood Count 4.2 X10*3/uL (4.8-10.8)
[2024-03-21] MEDS: Pantoprazole Sodium 40 MG/10 ML VIAL IVPUSH ×2 (06:41→15:59)
[2024-03-21] MEDS: 0.9 % Sodium Chloride Flush 3 ML SYRINGE IVFLUSH ×3 (09:15→22:56)
[2024-03-21] MEDS: QUEtiapine Fumarate 50 MG TABLET PO (09:54)
[2024-03-21] MEDS: PHENobarbitaL 15 MG TABLET 45 MG PO (09:54)
[2024-03-21] MEDS: Sucralfate 1 GM TABLET PO (09:55)
[2024-03-21] MEDS: Thiamine HCL 100 MG in 0.9 % Sodium Chloride 100 ML 202 MG IV (09:55)
[2024-03-21] MEDS: Potassium Chloride ER 20 MEQ TAB.ER.PRT PO (09:55)
[2024-03-21] MEDS: FLUoxetine HCl 20 MG CAPSULE 60 MG PO (09:55)
[2024-03-21] MEDS: guaiFENesin LA 600 MG TAB.ER.12H PO (09:55)
[2024-03-21] MEDS: Topiramate 100 MG TABLET 200 MG PO (09:55)
--- NOTE | 2024-03-21 10:34 | HO.PM.IMPN ---
Subjective Subjective Date of Service: 03/21/24 Interval History: f/u on ugib, impending alcohol withdrawal interval history: No further bleeding, H/H has trended down slightly for EGD today Physical Exam Vital Signs: Vital Signs: Last Vital Signs Temp 97.1 F 03/21/24 07:52 Pulse 63 03/21/24 07:52 Resp 20 03/21/24 07:52 BP 98/51 L 03/21/24 07:52 Pulse Ox 96 03/21/24 07:52 O2 Del Method Room Air 03/21/24 07:52 BMI result Body Mass Index 34.1 General: AO X 3, no acute distress Resp: CTA bilateral CVS: S1,S2,RRR, 2+ tense leg edema GI: +BS, NT, milddistention Skin: No rash Neuro: motor grossly intact Psych: appropriate affect Objective Data Active Medications Acetaminophen (Acetaminophen 325 Mg Tablet) 650 mg PO Q6H PRN PRN Reason: Pain, Mild (Pain Scale 1-3) Acetaminophen (Acetaminophen Supp 650 Mg Supp.Rect) 650 mg [place] Q6H PRN PRN Reason: Pain, Mild (Pain Scale 1-3) Fluoxetine HCl (Fluoxetine Hcl 20 Mg Capsule) 60 mg PO DAILY [facility] Last Admin: 03/21/24 09:55 Dose: 60 mg Documented By: JULIUS Guaifenesin (Guaifenesin La 600 Mg Tab.Er.12h) 600 mg PO Q12H [facility] Last Admin: 03/21/24 09:55 Dose: 600 mg Documented By: JULIUS Ceftriaxone Sodium 1 gm/ (Sodium Chloride) 50 mls @ 100 mls/hr IV Q24H [facility] Last Infusion: 03/20/24 22:10 Dose: Infused Documented By: WILLIAM Octreotide Acetate 500 mcg/ (Sodium Chloride) 501 mls @ 50.1 mls/hr IVCONT .Q10H [facility] Last Admin: 03/21/24 03:06 Dose: 50 mcg/hr, 50.1 mls/hr Documented By: WILLIAM Thiamine HCl 100 mg/ Sodium (Chloride) 101 mls @ 202 mls/hr IV DAILY [facility] Last Admin: 03/21/24 09:55 Dose: 202 mls/hr Documented By: JULIUS Sodium Chloride (Ns) 100 mls @ 100 mls/hr IV ONCE ONE Stop: 03/21/24 11:32 Lactic Acid (Ammonium Lactate 12 % Lotion 226 Gm Bottle) 1 appl TOPICAL BID [facility]; Protocol Last Admin: 03/20/24 23:13 Dose: Not Given Documented By: WILLIAM Non-Admin Reason: Med Not Available Lactulose (Lactulose 20 Gm/30 Ml Solution) 20 gm PO BID PRN PRN Reason: Constipation Melatonin (Melatonin 3 Mg Tablet) 9 mg PO BEDTIME [facility] Last Admin: 03/20/24 21:49 Dose: 9 mg Documented By: WILLIAM Mirtazapine (Mirtazapine 15 Mg Tablet) 15 mg PO BEDTIME [facility] Last Admin: 03/20/24 21:49 Dose: 15 mg Documented By: WILLIAM Ondansetron HCl (Ondansetron Hcl 4 Mg/2 Ml Vial) 4 mg IVPUSH Q8H PRN PRN Reason: Nausea and Vomiting Pantoprazole Sodium (Pantoprazole Sodium 40 Mg/10 Ml Vial) 40 mg IVPUSH BID@0630,1630 [facility] Last Admin: 03/21/24 06:41 Dose: 40 mg Documented By: WILLIAM Pharmacy Consult (Consult Rx Etoh Phenob Im/Po) 1 each MISCELLANE ONCE PRN; Protocol PRN Reason: Consult order Phenobarbital (Phenobarbital 15 Mg Tablet) 45 mg PO BID [facility]; Protocol Stop: 03/22/24 09:01 Last Admin: 03/21/24 09:54 Dose: 45 mg Documented By: JULIUS Phenobarbital (Phenobarbital 30 Mg Tablet) 30 mg PO BID [facility]; Protocol Stop: 03/24/24 09:01 Phenobarbital (Phenobarbital 30 Mg Tablet) 30 mg PO DAILY [facility]; Protocol Stop: 03/26/24 09:01 Potassium Chloride (Potassium Chloride Er 20 Meq Tab.Er.Prt) 20 meq PO DAILY [facility] Last Admin: 03/21/24 09:55 Dose: 20 meq Documented By: JULIUS Quetiapine Fumarate (Quetiapine Fumarate 50 Mg Tablet) 50 mg PO BID [facility] Last Admin: 03/21/24 09:54 Dose: 50 mg Documented By: JULIUS Risperidone (Risperidone 2 Mg Tablet) 2 mg PO BEDTIME [facility] Last Admin: 03/20/24 21:51 Dose: 2 mg Documented By: WILLIAM Sodium Chloride (0.9 % Sodium Chloride Flush 3 Ml Syringe) 3 ml IVFLUSH QSHIFT [facility] Last Admin: 03/20/24 21:52 Dose: 3 ml Documented By: WILLIAM Sucralfate (Sucralfate 1 Gm Tablet) 1 gm PO BIDAC [facility] Last Admin: 03/21/24 09:55 Dose: 1 gm Documented By: JULIUS Topiramate (Topiramate 100 Mg Tablet) 200 mg PO BID [facility] Last Admin: 03/21/24 09:55 Dose: 200 mg Documented By: JULIUS Labs 03/21/24 06:03 03/20/24 06:06 Labs: Laboratory Results - last 24 hr 03/20/24 03/20/24 03/20/24 06:06 10:00 10:30 MCV MCH MCHC RDW Plt Count 136 L D MPV 10.8 Immature Gran % (Auto) Neut % (Auto) Lymph % (Auto) [place] % (Auto) Eos % (Auto) Baso % (Auto) Lymph # (Auto) [place] # (Auto) Eos # (Auto) Baso # (Auto) Abs Immat Gran (auto) Absolute Neuts (auto) Absolute Nucleated RBC Nucleated RBC % (auto) Absolute Retic 0.045 Percent Retic 1.6 Immature Retic Fraction 19.9 H Retic Hgb Equivalent 33.9 Lactate Dehydrogenase 244 Peritoneal WBC 0.036 Peritoneal RBC < 0.002 Periton Neutrophils 1 [place]iton Lymphocytes 84 Peritoneal Monocytes 15 Stool Occult Blood Urine Opiates Screen Ur Buprenorphine Scrn Ur Oxycodone Screen Urine Methadone Screen Urine Fentanyl Screen Ur Barbiturates Screen Ur Phencyclidine Scrn Ur Amphetamines Screen U Benzodiazepines Scrn Urine Cocaine Screen U Marijuana (THC) Screen 03/20/24 03/21/24 16:50 06:03 MCV 91.8 MCH 30.3 MCHC 33.0 RDW 19.0 H Plt Count 127 L MPV 10.3 Immature Gran % (Auto) 0.5 H Neut % (Auto) 63.1 Lymph % (Auto) 19.9 L [place] % (Auto) 9.2 Eos % (Auto) 6.4 H Baso % (Auto) 0.9 Lymph # (Auto) 0.8 L [place] # (Auto) 0.4 Eos # (Auto) 0.3 Baso # (Auto) 0.0 Abs Immat Gran (auto) 0.02 Absolute Neuts (auto) 2.7 Absolute Nucleated RBC 0.000 Nucleated RBC % (auto) 0.0 Absolute Retic Percent Retic Immature Retic Fraction Retic Hgb Equivalent Lactate Dehydrogenase Peritoneal WBC Peritoneal RBC Periton Neutrophils Periton Lymphocytes Peritoneal Monocytes Stool Occult Blood POSITIVE Urine Opiates Screen Not Detected Ur Buprenorphine Scrn Not Detected Ur Oxycodone Screen Not Detected Urine Methadone Screen Not Detected Urine Fentanyl Screen Not Detected Ur Barbiturates Screen POSITIVE H Ur Phencyclidine Scrn Not Detected Ur Amphetamines Screen Not Detected U Benzodiazepines Scrn Not Detected Urine Cocaine Screen Not Detected U Marijuana (THC) Screen POSITIVE H Microbiology Microbiology Results: Microbiology 03/20/24 10:30 Gram Stain - Final Paracentesis Fluid Anaerobic Culture - Preliminary No growth to date. Body Fluid Culture - Preliminary No growth to date. 03/20/24 00:16 Blood Culture - Preliminary Blood - Venous No growth after 24 hours. 03/20/24 00:12 Blood Culture - Preliminary Blood - Venous No growth after 24 hours. Assessment and Plan (1) Acute upper GI bleed: Status: Acute (2) Anemia: Status: Acute Plan 58-year-old male with pertinent history of alcohol use disorder with alcoholic liver cirrhosis, mood disorder, gastroesophageal reflux disease who presents to the emergency department for evaluation of blood in vomitus. Acute upper GI bleed: Will admit patient with cardiac monitoring. Resuscitated with IV crystalloids. Initiated on IV Protonix and IV octreotide. Also initiated on empiric IV Rocephin in a patient with ascites and liver cirrhosis. Consulted Gastroenterology, appreciate assistance. Will keep patient NPO. Close hemodynamic monitoring UGIB/ABLA, concern for esoph variceal bleed -repeat H/H down -transfuse 1 unit of RBC -continue PPI, octreotide -empric Ceftriaxone -will have EGD today Alcohol use disorder at risk for withdrawal -Phenobarbital, thiamine, folate, CIWA -addiction med consult Acute lactic acidosis, d/t liver disease NOT sepsis Hyponatremia due to cirrhosis, mild and resolved Mood disorder: Resume home mood stabilizers once able to take p.o. Alcoholic liver cirrhosis: Hold spironolactone and Lasix in the setting of GI bleed Paracentesis 03/20, small amount of fluid and no evidence of SBP Coagulopathy, INR 1.8, Vitamin K 10 on 03/20 Leukocytosis, reactive, resolved : No evidence of sepsis. On empiric antibiotics as above Med rec pending DVT prophylaxis: Mechanical Full code need for inpt: Acute GIB, anemia and need further work up, including expert assessment Quality Stroke Does the patient have a stroke diagnosis?: No VTE Prior VTE?: No VTE Risk Level:: Medical - moderate - high VTE Device Contraindication: Treatment Not Indicated VTE Drug Contraindication: N/A - Med Ordered
--- NOTE | 2024-03-21 11:27 | P.CONAN_ITS ---
HPI - Anesthesia Eval Consult details Narrative: 58 yo male patient with alcoholic liver disease. Several EGDs in the past. Admitted with hematmesis. For EGD Hct 22.4 INR 1.8. For transfusion of 1unit PRBC PMFSH Active Problems Active Problems: All Active Problems Acute upper GI bleed (Acute) Hepatic encephalopathy (Acute) Pulmonary edema (Acute) Congestive heart failure (Acute) Aspiration pneumonia (Acute) Anemia (Acute) Acute hypoxemic respiratory failure (Acute) Dysphagia (Acute) Acute respiratory failure with hypoxia (Acute) Aspiration pneumonia (Acute) Septic shock (Acute) Bladder neck obstruction (Acute) History of prostate cancer (Acute) ETOH abuse (Acute) Acidosis, lactic (Acute) Hypokalemia (Acute) Esophageal varices (Acute) Anemia (Acute) Acute upper gastrointestinal bleeding (Acute) Acute lactic acidosis (Acute) Alcoholic cirrhosis (Acute) Hypokalemia (Acute) Esophageal varices (Acute) Portal hypertensive gastropathy (Acute) Erosive esophagitis (Acute) Alcohol dependence (Acute) Anemia (Acute) Acute hyponatremia (Acute) Acute GI bleeding (Acute) Ascites (Acute) GI bleed (Acute) Encephalopathy (Acute) NATHANIEL (acute kidney injury) (Acute) Anasarca (Acute) History of radiation therapy (Acute) Fatty liver (Acute) Hyponatremia (Acute) Alcoholic cirrhosis of liver with ascites (Acute) Hypertension (Acute) Hyperlipidemia (Acute) Depression (Acute) Anxiety (Acute) Past Medical History Medical History PTSD (post-traumatic stress disorder) Hyponatremia Acute hyponatremia NATHANIEL (acute kidney injury) Acute metabolic encephalopathy [place] Alcoholic cirrhosis of liver with ascites Prostate cancer Depression Hyperlipidemia Hypertension Anxiety Family History Family history of problems with anesthesia: No Surgical History History of Problems with Anesthesia: No Social History Social History Household Members: Spouse Household Members Other:: fiancee Housing: Condominium Do you presently have visiting nurse or other home services: Yes Unable to assess alcohol history related to: Refusing to respond Alcohol intake: current Alcohol intake frequency: former alcohol drinker Patient Tobacco Use Status: Current everyday Tobacco user Tobacco use type: Cigarette Cigarette Packs Per Day: 2 Cigarettes Per Day: 40.0 Years Smoked: 25 e-Cigarette/Vaping Use: Currently Using Second Hand Smoke Exposure: No Substance Use Type: Marijuana Advance Directives Date on File: 11/11/21 service: No Current occupational status: disabled Meds Allergies Allergy/AdvReac Type Severity Reaction Status Date / Time Fish Containing Products Allergy Severe THROAT Verified 03/19/24 23:46 SWELLING peanut [Peanut] Allergy Severe THROAT Verified 03/19/24 23:46 SWELLING Active Medications: Current Medications Acetaminophen (Acetaminophen 325 Mg Tablet) 650 mg PO Q6H PRN PRN Reason: Pain, Mild (Pain Scale 1-3) Acetaminophen (Acetaminophen Supp 650 Mg Supp.Rect) 650 mg NC Q6H PRN PRN Reason: Pain, Mild (Pain Scale 1-3) Fluoxetine HCl (Fluoxetine Hcl 20 Mg Capsule) 60 mg PO DAILY [facility] Last Admin: 03/21/24 09:55 Dose: 60 mg Guaifenesin (Guaifenesin La 600 Mg Tab.Er.12h) 600 mg PO Q12H [facility] Last Admin: 03/21/24 09:55 Dose: 600 mg Ceftriaxone Sodium 1 gm/ (Sodium Chloride) 50 mls @ 100 mls/hr IV Q24H [facility] Last Infusion: 03/20/24 22:10 Dose: Infused Octreotide Acetate 500 mcg/ (Sodium Chloride) 501 mls @ 50.1 mls/hr IVCONT .Q10H [facility] Last Infusion: 03/21/24 11:13 Dose: 0 mcg/hr, 0 mls/hr Thiamine HCl 100 mg/ Sodium (Chloride) 101 mls @ 202 mls/hr IV DAILY [facility] Last Infusion: 03/21/24 11:15 Dose: Infused Sodium Chloride (Ns) 100 mls @ 100 mls/hr IV ONCE ONE Stop: 03/21/24 11:32 Lactic Acid (Ammonium Lactate 12 % Lotion 226 Gm Bottle) 1 appl TOPICAL BID KULWANT; Protocol Last Admin: 03/21/24 11:19 Dose: Not Given Lactulose (Lactulose 20 Gm/30 Ml Solution) 20 gm PO BID PRN PRN Reason: Constipation Melatonin (Melatonin 3 Mg Tablet) 9 mg PO BEDTIME [facility] Last Admin: 03/20/24 21:49 Dose: 9 mg Mirtazapine (Mirtazapine 15 Mg Tablet) 15 mg PO BEDTIME [facility] Last Admin: 03/20/24 21:49 Dose: 15 mg Ondansetron HCl (Ondansetron Hcl 4 Mg/2 Ml Vial) 4 mg IVPUSH Q8H PRN PRN Reason: Nausea and Vomiting Pantoprazole Sodium (Pantoprazole Sodium 40 Mg/10 Ml Vial) 40 mg IVPUSH BID@0630,1630 [facility] Last Admin: 03/21/24 06:41 Dose: 40 mg Pharmacy Consult (Consult Rx Etoh Phenob Im/Po) 1 each MISCELLANE ONCE PRN; Protocol PRN Reason: Consult order Phenobarbital (Phenobarbital 15 Mg Tablet) 45 mg PO BID [facility]; Protocol Stop: 03/22/24 09:01 Last Admin: 03/21/24 09:54 Dose: 45 mg Phenobarbital (Phenobarbital 30 Mg Tablet) 30 mg PO BID [facility]; Protocol Stop: 03/24/24 09:01 Phenobarbital (Phenobarbital 30 Mg Tablet) 30 mg PO DAILY [facility]; Protocol Stop: 03/26/24 09:01 Potassium Chloride (Potassium Chloride Er 20 Meq Tab.Er.Prt) 20 meq PO DAILY [facility] Last Admin: 03/21/24 09:55 Dose: 20 meq Quetiapine Fumarate (Quetiapine Fumarate 50 Mg Tablet) 50 mg PO BID [facility] Last Admin: 03/21/24 09:54 Dose: 50 mg Risperidone (Risperidone 2 Mg Tablet) 2 mg PO BEDTIME [facility] Last Admin: 03/20/24 21:51 Dose: 2 mg Sodium Chloride (0.9 % Sodium Chloride Flush 3 Ml Syringe) 3 ml IVFLUSH QSHIFT [facility] Last Admin: 03/21/24 09:15 Dose: 3 ml [facility] ([facility] Admin: 03/21/24 09:55 Dose: 1 gm Topiramate (Topiramate 100 Mg Tablet) 200 mg PO BID [facility] Last Admin: 03/21/24 09:55 Dose: 200 mg Home Medications ?Medication ?Instructions ?Recorded ?Confirmed ?Last Taken ?Type propranolol 10 mg tablet 1 tab PO TID 11/11/21 03/20/24 02/22/24 History topiramate 200 mg tablet (Topamax) 1 tab PO BID 11/11/21 03/20/24 02/22/24 History fluoxetine 20 mg capsule (Prozac) 60 mg PO QAM 02/06/22 03/20/24 02/22/24 History furosemide 40 mg tablet 1 tab PO DAILY 10/17/22 03/20/2402/21/24 History spironolactone 100 mg tablet 1 tab PO DAILY 10/17/22 03/20/24 02/22/24 History tamsulosin 0.4 mg capsule 0.4 mg PO BEDTIME 10/17/22 03/20/24 02/22/24 History melatonin 10 mg tablet 10 mg PO BEDTIME Insomnia 11/13/23 03/20/24 Unknown History mirtazapine 15 mg tablet 15 mg PO BEDTIME 11/13/23 03/20/24 02/22/24 History risperidone 2 mg tablet 2 mg PO BEDTIME 12/27/23 03/20/24 02/22/24 History ondansetron 4 mg disintegrating 4 mg PO Q8H PRN nausea/vomiting 03/01/24 03/20/24 Unknown History tablet lactulose 10 gram/15 mL oral 30 ml PO BID PRN Constipation 03/08/24 03/20/24 Unknown History solution (Constulose) guaifenesin 600 mg tablet, 600 mg PO Q12H 03/20/24 03/20/24 Unknown History extended release 12 hr (Mucinex) potassium chloride 20 mEq 20 meq PO DAILY 03/20/24 03/20/24 Unknown History tablet,extended release quetiapine 50 mg tablet (Seroquel) 50 mg PO BID 03/20/24 03/20/24 Unknown History Exam Height,Weight and Vital Signs: Height 5 ft 7 in Weight 98.8 kg Last Vital Signs Temp 97.1 F 03/21/24 07:52 Pulse 63 03/21/24 07:52 Resp 20 03/21/24 07:52 BP 98/51 L 03/21/24 07:52 Pulse Ox 96 03/21/24 07:52 O2 Del Method Room Air 03/21/24 07:52 Vital Signs Temp Pulse Resp BP Pulse Ox O2 Del Method 03/21/24 12:40 59 18 03/21/24 12:22 97.8 F 64 16 102/55 L 03/21/24 12:02 96.1 F L 60 16 102/55 L 98 Room Air 03/21/24 11:34 97.3 F 68 20 94/55 L 97 Room Air 03/21/24 07:52 97.1 F 63 20 98/51 L 96 Room Air 03/21/24 04:00 97.5 F 64 16 107/57 L 95 Room Air 03/21/24 00:15 100/56 L 03/21/24 00:00 97 F 64 16 90/66 95 Room Air 03/20/24 21:36 97.8 F 59 16 104/59 L 99 Room Air 03/20/24 20:20 97.0 F 59 16 102/51 L Room Air 03/20/24 17:50 97.7 F 60 15 99/50 L 97 Room Air 03/20/24 15:47 97.7 F 64 18 103/54 L 97 Room Air 03/20/24 15:05 66 99/46 L 03/20/24 14:17 66 14 99/46 L 97 Room Air 03/20/24 12:45 97.1 F 64 12 102/48 L 97 Room Air Pertinent Lab Results Pertinent Lab Results: Laboratory Tests 03/19/24 03/20/24 03/20/24 23:59 00:12 00:13 WBC 11.0 H RBC 3.05 L D Hgb 9.1 L D Hct 28.2 L D MCV 92.5 MCH 29.8 MCHC 32.3 RDW 18.7 H Plt Count 205 D MPV 10.3 Immature Gran % (Auto) 0.6 H Neut % (Auto) 71.4 Lymph % (Auto) 14.2 L [place] % (Auto) 9.5 Eos % (Auto) 3.6 Baso % (Auto) 0.7 Lymph # (Auto) 1.6 [place] # (Auto) 1.1 Eos # (Auto) 0.4 Baso # (Auto) 0.1 Abs Immat Gran (auto) 0.07 H Absolute Neuts (auto) 7.9 Absolute Nucleated RBC 0.000 Nucleated RBC % (auto) 0.0 Absolute Retic Percent Retic Immature Retic Fraction Retic Hgb Equivalent PT 21.8 H D INR 1.8 H Sodium 134 L Potassium 3.4 Chloride 102 Carbon Dioxide 21 L Anion Gap 14 BUN 12 Creatinine 0.82 Estim Creat Clear Calc 107.7 Estimated GFR > 60 Random Glucose 113 Lactic Acid 3.9 H* Lactic Acid F/U @ 2Hr Calcium 7.5 L Magnesium 1.8 Total Bilirubin 8.3 H Direct Bilirubin 4.5 H AST 42 H ALT 10 Alkaline Phosphatase 215 H Ammonia 48 Lactate Dehydrogenase Troponin I High Sens < 2.7 Total Protein 6.5 Albumin 2.2 L Lipase 25 Peritoneal WBC Peritoneal RBC Periton Neutrophils Periton Lymphocytes Peritoneal Monocytes Gastric Occult Blood Stool Occult Blood Urine Opiates Screen Ur Buprenorphine Scrn Ur Oxycodone Screen Urine Methadone Screen Urine Fentanyl Screen Ur Barbiturates Screen Ur Phencyclidine Scrn Ur Amphetamines Screen U Benzodiazepines Scrn Urine Cocaine Screen U Marijuana (THC) Screen Ethyl Alcohol 12 Blood Type Antibody Screen Crossmatch 03/20/24 03/20/24 03/20/24 00:14 02:26 06:06 WBC RBC Hgb Hct MCV MCH MCHC RDW Plt Count MPV Immature Gran % (Auto) Neut % (Auto) Lymph % (Auto) [place] % (Auto) Eos % (Auto) Baso % (Auto) Lymph # (Auto) [place] # (Auto) Eos # (Auto) Baso # (Auto) Abs Immat Gran (auto) Absolute Neuts (auto) Absolute Nucleated RBC Nucleated RBC % (auto) Absolute Retic Percent Retic Immature Retic Fraction Retic Hgb Equivalent PT INR Sodium 137 Potassium 3.5 Chloride 105 Carbon Dioxide 23 Anion Gap 13 BUN 12 Creatinine 0.82 Estim Creat Clear Calc 107.7 Estimated GFR > 60 Random Glucose 125 H Lactic Acid Lactic Acid F/U @ 2Hr 2.0 Calcium 7.5 L Magnesium Total Bilirubin 8.0 H Direct Bilirubin AST 26 ALT 8 Alkaline Phosphatase 177 H Ammonia Lactate Dehydrogenase 244 Troponin I High Sens Total Protein 5.9 L Albumin 2.6 L Lipase Peritoneal WBC Peritoneal RBC Periton Neutrophils Periton Lymphocytes Peritoneal Monocytes Gastric Occult Blood POSITIVE Stool Occult Blood Urine Opiates Screen Ur Buprenorphine Scrn Ur Oxycodone Screen Urine Methadone Screen Urine Fentanyl Screen Ur Barbiturates Screen Ur Phencyclidine Scrn Ur Amphetamines Screen U Benzodiazepines Scrn Urine Cocaine Screen U Marijuana (THC) Screen Ethyl Alcohol Blood Type A Positive Antibody Screen NEGATIVE Crossmatch See Detail 03/20/24 03/20/24 03/20/24 10:00 10:30 16:50 WBC 8.5 RBC 2.75 L Hgb 8.3 L Hct 25.1 L MCV 91.3 MCH 30.2 MCHC 33.1 RDW 18.9 H Plt Count 136 L D MPV 10.8 Immature Gran % (Auto) Neut % (Auto) Lymph % (Auto) [place] % (Auto) Eos % (Auto) Baso % (Auto) Lymph # (Auto) [place] # (Auto) Eos # (Auto) Baso # (Auto) Abs Immat Gran (auto) Absolute Neuts (auto) Absolute Nucleated RBC 0.000 Nucleated RBC % (auto) 0.0 Absolute Retic 0.045 Percent Retic 1.6 Immature Retic Fraction 19.9 H Retic Hgb Equivalent 33.9 PT INR Sodium Potassium Chloride Carbon Dioxide Anion Gap BUN Creatinine Estim Creat Clear Calc Estimated GFR Random Glucose Lactic Acid Lactic Acid F/U @ 2Hr Calcium Magnesium Total Bilirubin Direct Bilirubin AST ALT Alkaline Phosphatase Ammonia Lactate Dehydrogenase Troponin I High Sens Total Protein Albumin Lipase Peritoneal WBC 0.036 Peritoneal RBC < 0.002 Periton Neutrophils 1 Periton Lymphocytes 84 Peritoneal Monocytes 15 Gastric Occult Blood Stool Occult Blood POSITIVE Urine Opiates Screen Not Detected Ur Buprenorphine Scrn Not Detected Ur Oxycodone Screen Not Detected Urine Methadone Screen Not Detected Urine Fentanyl Screen Not Detected Ur Barbiturates Screen POSITIVE H Ur Phencyclidine Scrn Not Detected Ur Amphetamines Screen Not Detected U Benzodiazepines Scrn Not Detected Urine Cocaine Screen Not Detected U Marijuana (THC) Screen POSITIVE H Ethyl Alcohol Blood Type Antibody Screen Crossmatch 03/21/24 06:03 WBC 4.2 L RBC 2.44 L Hgb 7.4 L Hct 22.4 L MCV 91.8 MCH 30.3 MCHC 33.0 RDW 19.0 H Plt Count 127 L MPV 10.3 Immature Gran % (Auto) 0.5 H Neut % (Auto) 63.1 Lymph % (Auto) 19.9 L Martin % (Auto) 9.2 Eos % (Auto) 6.4 H Baso % (Auto) 0.9 Lymph # (Auto) 0.8 L Martin # (Auto) 0.4 Eos # (Auto) 0.3 Baso # (Auto) 0.0 Abs Immat Gran (auto) 0.02 Absolute Neuts (auto) 2.7 Absolute Nucleated RBC 0.000 Nucleated RBC % (auto) 0.0 Absolute Retic Percent Retic Immature Retic Fraction Retic Hgb Equivalent PT INR Sodium Potassium Chloride Carbon Dioxide Anion Gap BUN Creatinine Estim Creat Clear Calc Estimated GFR Random Glucose Lactic Acid Lactic Acid F/U @ 2Hr Calcium Magnesium Total Bilirubin Direct Bilirubin AST ALT Alkaline Phosphatase Ammonia Lactate Dehydrogenase Troponin I High Sens Total Protein Albumin Lipase Peritoneal WBC Peritoneal RBC Periton Neutrophils Periton Lymphocytes Peritoneal Monocytes Gastric Occult Blood Stool Occult Blood Urine Opiates Screen Ur Buprenorphine Scrn Ur Oxycodone Screen Urine Methadone Screen Urine Fentanyl Screen Ur Barbiturates Screen Ur Phencyclidine Scrn Ur Amphetamines Screen U Benzodiazepines Scrn Urine Cocaine Screen U Marijuana (THC) Screen Ethyl Alcohol Blood Type Antibody Screen Crossmatch Airway Mallampati Class: II TM Dist: >3cm Neck ROM: Full Loose/Missing/Broken Teeth: No (Denies broken, loose, missing teeth) Heart: RRR Lungs: Bilateral wheezes Assessment and Plan Assessment Anesthesia Assessment: Anesthesia Plan Discussed and Chart Reviewed Final Anesthetic Review Family History of Problems with Anesthesia: No History of Problems with Anesthesia: No NPO: Yes ASA Class: III Final Preanesthetic Review: No Changes in Pt Med Stat, Meds/Allgs Chart Reviewed, Consent Obtained/Reviewed and Anes Risks/Benef Reviewed Patient Risk: Intermediate Procedure Risk: Intermediate Assessment/Block/Sedation in SS: Assess/Block/Sedation-SS Anesthetic Plan Anesthetic Plan: TIVA Disposition: Standard PACU and Inp. Admit - IMC
--- NOTE | 2024-03-21 12:18 | P.PNGI_ITS ---
Subjective Subjective Date of Service: 03/21/24 Interval History: no abdominal pain no nausea or further emesis appetite fair Critical Care Time (minutes): 0 Physical Exam 2 Vital Signs: Vital Signs: Last Vital Signs Temp 96.1 F L 03/21/24 12:02 Pulse 60 03/21/24 12:02 Resp 16 03/21/24 12:02 BP 102/55 L 03/21/24 12:02 Pulse Ox 98 03/21/24 12:02 O2 Del Method Room Air 03/21/24 12:02 BMI result Body Mass Index 34.1 EXAM: GENERAL: The patient is dishevelled, jaundiced VITAL SIGNS:see workflow HEENT: +icteric sclerae, PERRLA, EOMI. Oropharynx clear. Moist mucous membranes. Conjunctivae appear well perfused. No thyroid mass. CHEST: Chest wall is nontender. HEART: Regular rate and rhythm without murmurs. LUNGS: Clear to auscultation bilaterally. ABDOMEN: Soft, positive bowel sounds, nontender, no organomegaly.no flank tenderness SKIN: No rash, no excessive bruising, petechiae, or purpura. NEUROLOGIC: Cranial nerves II-XII intact without motor/sensory deficit. Psych: normal affect Objective Data Labs 03/22/24 04:56 03/22/24 04:56 Labs: Laboratory Results - last 24 hr 03/20/24 03/20/24 03/20/24 00:14 06:06 10:00 WBC RBC Hgb Hct MCV MCH MCHC RDW Plt Count MPV Immature Gran % (Auto) Neut % (Auto) Lymph % (Auto) [place] % (Auto) Eos % (Auto) Baso % (Auto) Lymph # (Auto) [place] # (Auto) Eos # (Auto) Baso # (Auto) Abs Immat Gran (auto) Absolute Neuts (auto) Absolute Nucleated RBC Nucleated RBC % (auto) Absolute Retic 0.045 Percent Retic 1.6 Immature Retic Fraction 19.9 H Retic Hgb Equivalent 33.9 Lactate Dehydrogenase 244 Periton Neutrophils Periton Lymphocytes Peritoneal Monocytes Stool Occult Blood Urine Opiates Screen Ur Buprenorphine Scrn Ur Oxycodone Screen Urine Methadone Screen Urine Fentanyl Screen Ur Barbiturates Screen Ur Phencyclidine Scrn Ur Amphetamines Screen U Benzodiazepines Scrn Urine Cocaine Screen U Marijuana (THC) Screen Blood Type A Positive Antibody Screen NEGATIVE Crossmatch See Detail 0603/20/24 03/21/24 10:30 16:50 06:03 WBC 4.2 L RBC 2.44 L Hgb 7.4 L Hct 22.4 L MCV 91.8 MCH 30.3 MCHC 33.0 RDW 19.0 H Plt Count 127 L MPV 10.3 Immature Gran % (Auto) 0.5 H Neut % (Auto) 63.1 Lymph % (Auto) 19.9 L [place] % (Auto) 9.2 Eos % (Auto) 6.4 H Baso % (Auto) 0.9 Lymph # (Auto) 0.8 L [place] # (Auto) 0.4 Eos # (Auto) 0.3 Baso # (Auto) 0.0 Abs Immat Gran (auto) 0.02 Absolute Neuts (auto) 2.7 Absolute Nucleated RBC 0.000 Nucleated RBC % (auto) 0.0 Absolute Retic Percent Retic Immature Retic Fraction Retic Hgb Equivalent Lactate Dehydrogenase Periton Neutrophils 1 Periton Lymphocytes 84 Peritoneal Monocytes 15 Stool Occult Blood POSITIVE Urine Opiates Screen Not Detected Ur Buprenorphine Scrn Not Detected Ur Oxycodone Screen Not Detected Urine Methadone Screen Not Detected Urine Fentanyl Screen Not Detected Ur Barbiturates Screen POSITIVE H Ur Phencyclidine Scrn Not Detected Ur Amphetamines Screen Not Detected U Benzodiazepines Scrn Not Detected Urine Cocaine Screen Not Detected U Marijuana (THC) Screen POSITIVE H Blood Type Antibody Screen Crossmatch Microbiology Microbiology Results: Microbiology 03/20/24 10:30 Paracentesis Fluid Gram Stain - Final 03/20/24 10:30 Paracentesis Fluid Anaerobic Culture - Preliminary No growth to date. 03/20/24 10:30 Paracentesis Fluid Body Fluid Culture - Preliminary No growth to date. 03/20/24 00:16 Blood - Venous Blood Culture - Preliminary No growth after 24 hours. 03/20/24 00:12 Blood - Venous Blood Culture - Preliminary No growth after 24 hours. Procedures Date of Service Date of Service: 03/22/24 Progress Note: A&P Assessment and plan (1) Acute upper GI bleed: Status: Acute Plan 1/ anemia, acute on chronic blood loss, also due to portal HTN and nutritional 2/ worsening LFT due to alcohol use PLAN: 1/ EGD today for further assessment 2/ hold on steroids Time Spent With Patient Time: Total time managing care of this patient today ____ minutes. Quality Stroke Does the patient have a stroke diagnosis?: No VTE Prior VTE?: No VTE Risk Level:: Medical - moderate - high VTE Device Contraindication: Treatment Not Indicated VTE Drug Contraindication: N/A - Med Ordered
[2024-03-21] MEDS: Albuterol Sulfate (0.083%) 2.5 MG/3 ML VIAL.NEB INHALE (12:34)
--- NOTE | 2024-03-21 12:55 | PC.NURSE ---
pt had bilat 20g iv in forearm at tile picker. additional iv from l forearm infiltrated/ removed. iv placed 22g l hand and 20 g l wrist.
--- NOTE | 2024-03-21 13:00 | MHC.SHP ---
Pre-Procedural Eval Section A - 24 Hr Update-Section A only Date of Service: 03/21/24 The patient is an INPATIENT: Yes The patient has been examined within 24 hours of the surgical procedure. The History & Physical has been completed within 30 days and I have reviewed it.: Yes Section B - Complete if H&P > 30 days Chief Complaint: Vomiting Blood Allergies: Allergies Allergy/AdvReac Type Severity Reaction Status Date / Time Fish Containing Products Allergy Severe THROAT Verified 03/19/24 23:46 SWELLING peanut [Peanut] Allergy Severe THROAT Verified 03/19/24 23:46 SWELLING Plan I have reviewed the history and physical and performed a pertinent physical examination on my patient. No changes have occurred unless specified. Time Spent With Patient Time: Total time managing care of this patient today ____ minutes.
--- NOTE | 2024-03-21 13:42 | PC.NURSE ---
UPON ARRIVAL PATIENT WAS ASSESSED AND EVALUATED. RESP CALLED FOR A TREATMENT AND NEW IVS WERE INSERTED AND 1ST UNIT OF BLOOD WAS STARTED IN PRE-OP. AND THEN PATIENT WAS MOVED WITH THREE ASSIST TO AN ENDO STRETCHER FROM HIS BED FOR THE PROCEDURE PER OR STAFF. PATIENT SMILING, JOKING AND ALERT AND AWAKE. CLEAR,YELLOW FLUID AROUND LEFT FLANK AREA FROM HIS VISIBLE ASCITES. SMALL 1/2 DOLLAR SIZED LEFT FOREARM ?SKIN TEAR NOTED UPON PICKUP BAND-AID PLACED. SMALL MULTIPLE OPEN SCABBED AREAS AROUND HIS ARMS. BILATERAL LOWER LEG EDEMA. ELEVATED WITH PILLOW. PATIENT WAS READY FOR HIS PROCEDURE IN ENDO 2 1ST UNIT TRANSFUSING PATENTLY WITHOUT ANY NOTED COMPLICATIONS. STAFF FROM ENDO ROOM WANTED ANOTHER STAT RBC UNIT WHICH WE RECOVERED AND GAVE TO THE OR STAFF.
--- NOTE | 2024-03-21 14:08 | PC.NURSE ---
ROOM WAS ENDO 1 NOT ENDO 2.
--- NOTE | 2024-03-21 14:13 | P.OP_ITS ---
Operative Note Operative Note Date of Service: 03/21/24 Narrative: Procedure Description: EGD Indication: hematemesis Anesthesia: MAC but then GA FLEXIBLE TRANSORAL UPPER GASTROINTESTINAL ENDOSCOPY UPPER ENDOSCOPY Consent: Indications for the procedure and potential complications of bleeding, perforation, reaction to medications and missed diagnosis were discussed with the patient and informed consent was obtained. Instrument: Olympus GIF H 190 J mid size upper endoscope Monitoring: Vital signs and clinical assessment, continuous EKG monitoring, Pulse oximetry, Carbon Dioxide monitoring and blood pressure monitoring were done throughout the procedure. Procedure: The patient was placed in the left lateral decubitis position and pre-procedure medications were administered and a bite block was placed. The endoscope was inserted into the mouth and advanced under direct vision to the third part of duodenum. A careful inspection was made as the upper endoscope was withdrawn including a retroflexed examination of the proximal stomach; Findings and interventions are described below. Findings: Larynx:normal Esophagus: Severe esophagitis extending from 34 cm to 26 cm with slough and friable tissue which was oozing. There was a 4 cm hiatal hernia noted. No varices were seen. A red spot was noted thought to be a possible visible vessel, x 2 clips were applied but the area then started to ooze continuously. A title i instructional assistant was then used but the bands kept slipping off the mucosa. Epinephrine was then injected and hemospray used and the bleeding seemed to cease at that point. In the middle of the case the patient was intubated, Stomach: mosaic pattern consistent with portal hypertensive gastropathy, patchy gastritis . Grade 2 flap valve on retroflexed examination of the cardia. no gastric varices seen Duodenum: Normal bulb and descending duodenum, Intervention: control of bleeding with clips, epinephrine, and hemospray Impression/Findings: suspected visible vessel or dieulafoy, severe esophagitis grade D hiatal hernia PLAN: I D/W ICU who will take the patient, patient was ordered FFP and PRBC. Discussed with Dr Morin in IR, there is no overnight coverage so if there were any complications from any intervention there may be no coverage D/W ICU again, and plan is to resuscitate and observe in ICU--if decompensates then transfer to tertiary center, potentially rediscuss with IR to consider embolization or TIPS early tomorrow. ICU will d/w IR regards this
[2024-03-21] MEDS: propofoL 1,000 MG/100 ML VIAL 29.64 MG IVCONT ×4 (14:30→23:53)
[2024-03-21 14:47] LABS: Hemoglobin 9.2 g/dl (14.0-18.0); Mean Corpuscular HGB Conc 32.9 g/dl (31.0-36.0); Mean Corpuscular Hemoglobin 29.7 pg (27.0-33.0); Mean Corpuscular Volume 90.3 fL (80.0-98.0); Platelet Count 129 X10*3/uL (160-400); Red Cell Distribution Width 19.3 % (11.0-16.0); White Blood Count 5.1 X10*3/uL (4.8-10.8)
[2024-03-21 14:57] LABS: INTERNATIONAL NORM RATIO 1.6 (0.9-1.1); Prothrombin Time 19.4 SEC (11.1-13.3)
[2024-03-21 15:02] LABS: Alanine Aminotransferase 16 U/L (0-40); Albumin Level 2.3 g/dL (3.5-5.0); Alkaline Phosphatase 147 U/L (39-117); Anion Gap 9 (12-20); Aspartate Amino Transferase 38 U/L (5-37); Bilirubin Total 7.2 mg/dL (0.0-1.0); Blood Urea Nitrogen 9 mg/dL (9-16); Calcium 7.8 mg/dL (8.4-10.2); Carbon Dioxide 26 mmol/L (22-29); Chloride 107 mmol/L (96-108); Creatinine Clr Calc Pharmacy 118.6; Estimated Glomerular Filt Rate > 60; Glucose Random 106 mg/dL (60-115); Potassium 3.4 mmol/L (3.3-5.1); Sodium 139 mmol/L (135-145); Total Protein 5.7 g/dL (6.5-8.0)
--- NOTE | 2024-03-21 18:23 | W.PM.CCCN ---
History of Present Illness Data of Consult Service Date: 03/21/24 Primary Care Provider: Fransisco Soria MD [facility] Reason for consult: Upper GI bleed upper GI bleed 58-year-old male with PMH of alcohol use disorder with alcoholic liver cirrhosis with prior admissions for hematemesis, mood disorder, gastroesophageal reflux disease, mood disorder, BPH admitted to the hospital yesterday for the management of hematemesis. This morning patient was taken to the endoscopic suite where he was found to have significant esophagitis and small bleeding artery, epinephrine injection was given and a clip was placed. He is intubated and placed on ventilator support to prevent aspiration pneumonia, transferred to medical ICU as he is high-risk for recurrent bleeds. Review of Systems Review of Systems: Unable to obtain as patient is intubated and on ventilator PMFSH Past Medical History Medical History PTSD (post-traumatic stress disorder) Hyponatremia Acute hyponatremia NATHANIEL (acute kidney injury) Acute metabolic encephalopathy [place] Alcoholic cirrhosis of liver with ascites Prostate cancer Depression Hyperlipidemia Hypertension Anxiety Social History Social History Household Members: Spouse Household Members Other:: fiancee [facility] Do you presently have visiting nurse or other home services: Yes Unable to assess alcohol history related to: Refusing to respond Alcohol intake: current Alcohol intake frequency: former alcohol drinker Patient Tobacco Use Status: Current everyday Tobacco user Tobacco use type: Cigarette Cigarette Packs Per Day: 2 Cigarettes Per Day: 40.0 Years Smoked: 25 e-Cigarette/Vaping Use: Currently Using Second Hand Smoke Exposure: No Substance Use Type: Marijuana Advance Directives Date on File: 11/11/21 service: No Current occupational status: disabled Meds Allergies Allergy/AdvReac Type Severity Reaction Status Date / Time Fish Containing Products Allergy Severe THROAT Verified 03/19/24 23:46 SWELLING peanut [Peanut] Allergy Severe THROAT Verified 03/19/24 23:46 SWELLING Active Medications: Current Medications Acetaminophen (Acetaminophen 325 Mg Tablet) 650 mg PO Q6H PRN PRN Reason: Pain, Mild (Pain Scale 1-3) Acetaminophen (Acetaminophen Supp 650 Mg Supp.Rect) 650 mg [place] Q6H PRN PRN Reason: Pain, Mild (Pain Scale 1-3) Fluoxetine HCl (Fluoxetine Hcl 20 Mg Capsule) 60 mg PO DAILY [facility] Last Admin: 03/21/24 09:55 Dose: 60 mg Guaifenesin (Guaifenesin La 600 Mg Tab.Er.12h) 600 mg PO Q12H [facility] Last Admin: 03/21/24 09:55 Dose: 600 mg Ceftriaxone Sodium 1 gm/ (Sodium Chloride) 50 mls @ 100 mls/hr IV Q24H [facility] Last Infusion: 03/20/24 22:10 Dose: Infused Octreotide Acetate 500 mcg/ (Sodium Chloride) 501 mls @ 50.1 mls/hr IVCONT .Q10H [facility] Last Admin: 03/21/24 15:01 Dose: 50 mcg/hr, 50.1 mls/hr Thiamine HCl 100 mg/ Sodium (Chloride) 101 mls @ 202 mls/hr IV DAILY [facility] Last Infusion: 03/21/24 11:15 Dose: Infused Propofol (Diprivan) 1,000 mg in 100 mls @ 0 mls/hr IVCONT .Q0M [facility]; Protocol Last Admin: 03/21/24 14:30 Dose: 50 mcg/kg/min, 29.64 mls/hr Lactic Acid (Ammonium Lactate 12 % Lotion 226 Gm Bottle) 1 appl TOPICAL BID [facility]; Protocol Last Admin: 03/21/24 11:19 Dose: Not Given Lactulose (Lactulose 20 Gm/30 Ml Solution) 20 gm PO BID PRN PRN Reason: Constipation Melatonin (Melatonin 3 Mg Tablet) 9 mg PO BEDTIME [facility] Last Admin: 03/20/24 21:49 Dose: 9 mg Mirtazapine (Mirtazapine 15 Mg Tablet) 15 mg PO BEDTIME [facility] Last Admin: 03/20/24 21:49 Dose: 15 mg Ondansetron HCl (Ondansetron Hcl 4 Mg/2 Ml Vial) 4 mg IVPUSH Q8H PRN PRN Reason: Nausea and Vomiting Pantoprazole Sodium (Pantoprazole Sodium 40 Mg/10 Ml Vial) 40 mg IVPUSH BID@0630,1630 [facility] Last Admin: 03/21/24 15:59 Dose: 40 mg Pharmacy Consult (Consult Rx Etoh Phenob Im/Po) 1 each MISCELLANE ONCE PRN; Protocol PRN Reason: Consult order Phenobarbital (Phenobarbital 15 Mg Tablet) 45 mg PO BID [facility]; Protocol Stop: 03/22/24 09:01 Last Admin: 03/21/24 09:54 Dose: 45 mg Phenobarbital (Phenobarbital 30 Mg Tablet) 30 mg PO BID [facility]; Protocol Stop: 03/24/24 09:01 Phenobarbital (Phenobarbital 30 Mg Tablet) 30 mg PO DAILY [facility]; Protocol Stop: 03/26/24 09:01 Potassium Chloride (Potassium Chloride Er 20 Meq Tab.Er.Prt) 20 meq PO DAILY [facility] Last Admin: 03/21/24 09:55 Dose: 20 meq Quetiapine Fumarate (Quetiapine Fumarate 50 Mg Tablet) 50 mg PO BID [facility] Last Admin: 03/21/24 09:54 Dose: 50 mg Risperidone (Risperidone 2 Mg Tablet) 2 mg PO BEDTIME [facility] Last Admin: 03/20/24 21:51 Dose: 2 mg Sodium Chloride (0.9 % Sodium Chloride Flush 3 Ml Syringe) 3 ml IVFLUSH QSHIFT [facility] Last Admin: 03/21/24 15:59 Dose: 3 ml [facility]ucralfate ([facility] 1 Gm [facility] Last Admin: 03/21/24 15:38 Dose: Not Given Topiramate (Topiramate 100 Mg Tablet) 200 mg PO BID [facility] Last Admin: 03/21/24 09:55 Dose: 200 mg Home Medications ?Medication ?Instructions ?Recorded ?Confirmed ?Last Taken ?Type propranolol 10 mg tablet 1 tab PO TID 11/11/21 03/20/24 02/22/24 History topiramate 200 mg tablet (Topamax) 1 tab PO BID 11/11/21 03/20/24 02/22/24 History fluoxetine 20 mg capsule (Prozac) 60 mg PO QAM 02/06/22 03/20/24 02/22/24 History furosemide 40 mg tablet 1 tab PO DAILY 10/17/22 03/20/24 02/22/24 History spironolactone 100 mg tablet 1 tab PO DAILY 10/17/22 03/20/24 02/22/24 History tamsulosin 0.4 mg capsule 0.4 mg PO BEDTIME 10/17/22 03/20/24 02/22/24 History melatonin 10 mg tablet 10 mg PO BEDTIME Insomnia 11/13/23 03/20/24 Unknown History mirtazapine 15 mg tablet 15 mg PO BEDTIME 11/13/23 03/20/24 02/22/24 History risperidone 2 mg tablet 2 mg PO BEDTIME 12/27/23 03/20/24 02/22/24 History ondansetron 4 mg disintegrating 4 mg PO Q8H PRN nausea/vomiting 03/01/24 03/20/24 Unknown History tablet lactulose 10 gram/15 mL oral 30 ml PO BID PRN Constipation 03/08/24 03/20/24 Unknown History solution (Constulose) guaifenesin 600 mg tablet, 600 mg PO Q12H 03/20/24 03/20/24 Unknown History extended release 12 hr (Mucinex) potassium chloride 20 mEq 20 meq PO DAILY 03/20/24 03/20/24 Unknown History tablet,extended release quetiapine 50 mg tablet (Seroquel) 50 mg PO BID 03/20/24 03/20/24 Unknown History Physical Exam Vital Signs: Vital Signs: Last Vital Signs Temp 96.8 F 03/21/24 18:20 Pulse 67 03/21/24 18:20 Resp 18 03/21/24 18:20 BP 97/45 L 03/21/24 18:20 Pulse Ox 100 03/21/24 17:56 O2 Del Method Mechanical Ventil ation 03/21/24 17:56 FiO2 50 03/21/24 17:56 BMI result Body Mass Index 34.1 General: In acute distress, ill appearing and tired appearing Nutritional Appearance: well nourished and overweight Eyes: appearance normal, both eyes and all related structures; Alignment and Position: alignment normal and position normal Neck: No lymphadenopathy, no thyromegaly Resp: bilateral air entry equal, occasional added sounds present Cardio: Regular rate, regular rhythm; Heart sounds: S1 normal heart sound present and S2 normal heart sound present GI: soft, nontender, no guarding, no hepatosplenomegaly : bladder normal to inspection, bladder normal to palpation, no renal angle tenderness Skin: no rashes or lesions noted and elasticity normal Neuro: Sedated, no focal deficit Results Labs 03/21/24 14:40 03/21/24 14:40 Labs: Short CBC 03/21/24 03/21/24 Range/Units 06:03 14:40 WBC 4.2 L 5.1 (4.8-10.8) X10*3/uL Hgb 7.4 L 9.2 L D (14.0-18.0) g/dl Hct 22.4 L 28.0 L D (42.0-52.0) % Plt Count 127 L 129 L (160-400) X10*3/uL BMP 03/21/24 14:40 Sodium 139 Potassium 3.4 Chloride 107 Carbon Dioxide 26 BUN 9 Creatinine 0.76 Calcium 7.8 L Liver Function 03/21/24 Range/Units 14:40 Total Bilirubin 7.2 H (0.0-1.0) mg/dL AST 38 H (5-37) U/L ALT 16 (0-40) U/L Alkaline Phosphatase 147 H (39-117) U/L Albumin 2.3 L (3.5-5.0) g/dL Microbiology Microbiology Results: Microbiology 03/20/24 10:30 Paracentesis Fluid Gram Stain - Final 03/20/24 10:30 Paracentesis Fluid Anaerobic Culture - Preliminary No growth to date. 03/20/24 10:30 Paracentesis Fluid Body Fluid Culture - Preliminary No growth to date. 03/20/24 00:16 Blood - Venous Blood Culture - Preliminary No growth after 24 hours. 03/20/24 00:12 Blood - Venous Blood Culture - Preliminary No growth after 24 hours. Assessment and Plan (1) Acute upper GI bleed: Status: Acute (2) Hepatic encephalopathy: Status: Acute (3) Pulmonary edema: Qualifiers: Chronicity: acute Qualified Code(s): J81.0 - Acute pulmonary edema Status: Acute (4) Congestive heart failure: Status: Acute (5) Aspiration pneumonia: Qualifiers: Aspiration pneumonia type: unspecified Laterality: unspecified laterality Lung location: unspecified part of lung Qualified Code(s): J69.0 - Pneumonitis due to inhalation of food and vomit Status: Acute Plan Neuro: Acute encephalopathy possibly due to metabolic encephalopathy, however can not rule out underlying hepatic encephalopathy On propofol for sedation, as needed fentanyl for analgesia Close neurological status monitoring in the ICU Cardiac: Hemorrhagic Shock: Possibly secondary to upper GI bleed, hemorrhage Improved with 2 units of PRBC and 1 unit of FFP transfusions If the blood pressure is drops we will transfuse more PRBCs and transfer him to a higher center for embolization Respiratory: Acute hypoxemic respiratory failure due to aspiration pneumonia Currently on ventilator support On PRVC mode FiO2 50, PEEP 5, TV 400, RR 16 Peak pressures and plateau pressures are under the curve Ventilator management bundle with head end elevation, aspiration precaution, chlorhexidine mouthwash, daily awakening trials, daily spontaneous breathing trials Upper GI bleed: Secondary to esophagitis and esophageal varices Underwent upper GI endoscopy which showed esophagitis and bleeding vessel which was clipped and epinephrine injection was given around Continue octreotide, pantoprazole If the patient has further GI bleed we will transfer him to [facility] for IR guided embolization if not he will be planned for an embolization tomorrow Renal: We will closely monitor I's and O's Avoid nephrotoxic medications Heme: Acute blood loss anemia: closely monitor H&H q.6 hours, transfuse for hemoglobin less than 7 grams/deciliter Coagulopathy: Received 4 units of FFP, last INR 1.7 Endocrine: Blood sugars under control Sliding scale insulin as needed Infectious disease: We will send pancultures We will start on empiric ceftriaxone Musculoskeletal: Decubitus ulcer prevention protocol Lines: Left IJ Cordis placement on 03/21/2024 Arterial line Barber catheter Prophylaxis: SCD, pantoprazole Critical care time spent is about 60 minutes on managing this patient with acute hemorrhagic shock needing multiple transfusions, on stabilizing the patient, ventilator management, sedation management at this time is excluding any procedure time. Total time managing care of this patient today: 60 minutes.
--- NOTE | 2024-03-21 18:34 | W.PM.CCHP ---
Procedures Date of Service Date of Service: 03/21/24 Arterial Line Consent: Emergent-no informed consent obtained Sterile Technique Used: Yes Time out performed: Yes Size (Gauge): 14 Technique used: modified Seldinger technique Post-Procedure: line sutured into place Patient tolerated procedure: well Complications: none Site: right and femoral Central Line Placement Left IJ: Central Line Comments: Cordis catheter placement for management of hemorrhagic shock Consent for Procedure: Emergent-no informed consent obtained Time out performed: Yes Sterile Technique Used: Yes Patient placed on monitor/pulse ox: Yes MD prep: mask, gown and gloves Central line prep: Povidone-Iodine 1%, Chlorhexidine scrub and sterile drapes applied Ultrasound used for placement: Yes Central line lumen inserted: single Post procedure: sutured in place Post procedure x-ray: tip of catheter in good position and no pneumothorax seen Patient tolerated procedure: well Complications: none
[2024-03-21 19:28] LABS: Hematocrit 24.5 % (42.0-52.0); Hemoglobin 8.3 g/dl (14.0-18.0); Mean Corpuscular HGB Conc 33.9 g/dl (31.0-36.0); Mean Corpuscular Hemoglobin 30.4 pg (27.0-33.0); Mean Corpuscular Volume 89.7 fL (80.0-98.0); Mean Platelet Volume 10.1 fL (9.4-12.4); Platelet Count 122 X10*3/uL (160-400); Red Blood Count 2.73 X10*6/uL (4.60-5.80); Red Cell Distribution Width 19.8 % (11.0-16.0); White Blood Count 4.4 X10*3/uL (4.8-10.8)
[2024-03-21] MEDS: cefTRIAXone sodium 2 GM in 0.9 % Sodium Chloride 50 ML IV (19:37)
[2024-03-21] MEDS: Albumin Human 25 % 100 ML IV ×2 (22:50→23:52)
[2024-03-22] VITALS (35 sets, daily range): BP systolic 77–135; BP diastolic 46–108; PULSE 54–94; RESP 17–22; TEMP 34.3–37.7; O2SAT 93–100; BMI 37.1
[2024-03-22] MEDS: propofoL 1,000 MG/100 ML VIAL 29.64 MG IVCONT (02:51)
[2024-03-22 05:03] LABS: VBG Base Excess 1.1 mmol/L; VBG HCO3 23 mmol/L (22-26); VBG pCO2 29 mmHg; VBG pH 7.51 (7.32-7.43); VBG pO2 58 mmHg
[2024-03-22 05:15] LABS: MANUAL DIFF FLAG NO
[2024-03-22 05:18] LABS: Basophils Absolute Auto 0.1 X10*3/uL (0.0-0.2); Basophils Percent Auto 1.2 % (0-2); Eosinophils Absolute Auto 0.2 X10*3/uL (0.0-0.4); Eosinophils Percent Auto 5.4 % (0-4); Hematocrit 24.4 % (42.0-52.0); Hemoglobin 8.3 g/dl (14.0-18.0); Imm Gran Abs Auto 0.03 X10*3/uL (0.00-0.03); Imm Gran Pct Auto 0.7 % (0.0-0.4); Lymphocytes Percent Auto 23.8 % (20-40); Mean Corpuscular Hemoglobin 30.3 pg (27.0-33.0); Mean Corpuscular Volume 89.1 fL (80.0-98.0); Monocytes Absolute Auto 0.4 X10*3/uL (0.1-1.2); Monocytes Percent Auto 9.2 % (2-11); Neutrophils Absolute Auto 2.5 x10*3/uL (2.0-8.3); Neutrophils Percent Auto 59.7 % (45-73); Platelet Count 109 X10*3/uL (160-400); Red Blood Count 2.74 X10*6/uL (4.60-5.80); Red Cell Distribution Width 20.4 % (11.0-16.0); White Blood Count 4.2 X10*3/uL (4.8-10.8)
[2024-03-22 05:27] LABS: Venous Blood Gas Refer to POC result
[2024-03-22] MEDS: propofoL 1,000 MG/100 ML VIAL 23.71 MG IVCONT ×5 (05:28→22:47)
[2024-03-22] MEDS: Pantoprazole Sodium 40 MG/10 ML VIAL IVPUSH ×2 (05:31→16:10)
[2024-03-22 05:55] LABS: Alanine Aminotransferase 12 U/L (0-40); Albumin Level 2.5 g/dL (3.5-5.0); Alkaline Phosphatase 114 U/L (39-117); Anion Gap 10 (12-20); Aspartate Amino Transferase 35 U/L (5-37); Bilirubin Total 6.8 mg/dL (0.0-1.0); Blood Urea Nitrogen 7 mg/dL (9-16); Calcium 7.5 mg/dL (8.4-10.2); Carbon Dioxide 25 mmol/L (22-29); Chloride 107 mmol/L (96-108); Creatinine Clr Calc Pharmacy 103.5; Estimated Glomerular Filt Rate > 60; Glucose Random 88 mg/dL (60-115); Potassium 2.8 mmol/L (3.3-5.1); Sodium 139 mmol/L (135-145); Total Protein 5.3 g/dL (6.5-8.0)
[2024-03-22] MEDS: Potassium Chloride/H20 40 MEQ/100 ML PIGGYBACK 50 MEQ IV (06:24)
[2024-03-22] MEDS: Octreotide Acetate 500 MCG in 0.9 % Sodium Chloride 500 ML 50.1 MCG IVCONT ×2 (08:08→19:23)
[2024-03-22] MEDS: Thiamine HCL 100 MG in 0.9 % Sodium Chloride 100 ML 202 MG IV (08:09)
[2024-03-22] MEDS: 0.9 % Sodium Chloride Flush 3 ML SYRINGE IVFLUSH ×2 (08:11→16:10)
[2024-03-22] MEDS: Potassium Chloride/H20 40 MEQ/100 ML PIGGYBACK 100 MEQ IV (08:32)
--- NOTE | 2024-03-22 08:43 | P.PNGI_ITS ---
Subjective Subjective Date of Service: 03/22/24 Interval History: remains intubated but doing well on vent no emesis HGB stable around 8 g/dl, INR better after FFP Critical Care Time (minutes): 0 Physical Exam 2 Vital Signs: Vital Signs: Last Vital Signs Temp 96.6 F L 03/22/24 08:00 Pulse 60 03/22/24 08:00 Resp 18 03/22/24 08:00 BP 101/51 L 03/22/24 08:00 Pulse Ox 98 03/22/24 08:00 O2 Del Method Mechanical Ventil ation 03/22/24 08:00 FiO2 28 03/22/24 08:00 BMI result Body Mass Index 37.1 EXAM: GENERAL: The patient is intubated, VITAL SIGNS:see workflow HEENT:icteric sclerae, PERRLA, EOMI. Oropharynx clear. Moist mucous membranes. Conjunctivae appear well perfused. No thyroid mass. CHEST: Chest wall is nontender. HEART: Regular rate and rhythm without murmurs. LUNGS: Clear to auscultation bilaterally. ABDOMEN: Soft, positive bowel sounds, nontender, no organomegaly.no flank tenderness SKIN: No rash, no excessive bruising, petechiae, or purpura. NEUROLOGIC: sedated Psych: not assessable Objective Data Labs 03/22/24 04:56 03/22/24 04:56 Labs: Laboratory Results - last 24 hr 03/20/24 03/21/24 03/21/24 00:14 14:40 19:09 WBC 5.1 4.4 L RBC 3.10 L D 2.73 L Hgb 9.2 L D 8.3 L Hct 28.0 L D 24.5 L MCV 90.3 89.7 MCH 29.7 30.4 MCHC 32.9 33.9 RDW 19.3 H 19.8 H Plt Count 129 L 122 L MPV 10.0 10.1 Immature Gran % (Auto) Neut % (Auto) Lymph % (Auto) [place] % (Auto) Eos % (Auto) Baso % (Auto) Lymph # (Auto) [place] # (Auto) Eos # (Auto) Baso # (Auto) Abs Immat Gran (auto) Absolute Neuts (auto) Absolute Nucleated RBC 0.000 0.000 Nucleated RBC % (auto) 0.0 0.0 PT 19.4 H INR 1.6 H VBG pH VBG pCO2 VBG pO2 VBG HCO3 VBG O2 Saturation VBG Base Excess Sodium 139 Potassium 3.4 Chloride 107 Carbon Dioxide 26 Anion Gap 9 L BUN 9 Creatinine 0.76 Estim Creat Clear Calc 118.6 Estimated GFR > 60 Random Glucose 106 Calcium 7.8 L Total Bilirubin 7.2 H AST 38 H ALT 16 Alkaline Phosphatase 147 H Total Protein 5.7 L Albumin 2.3 L Blood Type A Positive Antibody Screen NEGATIVE Crossmatch See Detail 03/22/24 03/22/24 04:55 04:56 WBC 4.2 L RBC 2.74 L Hgb 8.3 L Hct 24.4 L MCV 89.1 MCH 30.3 MCHC 34.0 RDW 20.4 H Plt Count 109 L MPV 10.0 Immature Gran % (Auto) 0.7 H Neut % (Auto) 59.7 Lymph % (Auto) 23.8 [place] % (Auto) 9.2 Eos % (Auto) 5.4 H Baso % (Auto) 1.2 Lymph # (Auto) 1.0 L [place] # (Auto) 0.4 Eos # (Auto) 0.2 Baso # (Auto) 0.1 Abs Immat Gran (auto) 0.03 Absolute Neuts (auto) 2.5 Absolute Nucleated RBC 0.000 Nucleated RBC % (auto) 0.0 PT INR VBG pH 7.51 H VBG pCO2 29 VBG pO2 58 VBG HCO3 23 VBG O2 Saturation 92.0 VBG Base Excess 1.1 Sodium 139 Potassium 2.8 L* Chloride 107 Carbon Dioxide 25 Anion Gap 10 L BUN 7 L Creatinine 0.91 Estim Creat Clear Calc 103.5 Estimated GFR > 60 Random Glucose 88 Calcium 7.5 L Total Bilirubin 6.8 H AST 35 ALT 12 Alkaline Phosphatase 114 Total Protein 5.3 L Albumin 2.5 L Blood Type Antibody Screen Crossmatch Microbiology Microbiology Results: Microbiology 03/20/24 00:16 Blood - Venous Blood Culture - Preliminary No growth after 48 hours. 03/20/24 00:12 Blood - Venous Blood Culture - Preliminary No growth after 48 hours. 03/20/24 10:30 Paracentesis Fluid Gram Stain - Final 03/20/24 10:30 Paracentesis Fluid Anaerobic Culture - Preliminary No growth to date. 03/20/24 10:30 Paracentesis Fluid Body Fluid Culture - Preliminary No growth to date. Procedures Date of Service Date of Service: 03/22/24 Arterial Line Size (Gauge): 14 Progress Note: A&P Assessment and plan (1) Acute upper GI bleed: Status: Acute Assessment and Plan: 1/ Acute blood loss anemia from GI bleed, probably from a dieulafoy lesion along wiht severe erosive esophagitis PLAN: 1/ d/w ICU--plan to extubate today 2. cont with PPI, 3/ can allow clears if HGB remains stable and add carafate 4/ Recommend IR consult for emboolization, high risk of rebleeding--if cant do in house and unstable transfer 5/ cont octreotide for 48 hrs then stop 6/ prognosis guarded Time Spent With Patient Time: Total time managing care of this patient today ____ minutes. Quality Stroke Does the patient have a stroke diagnosis?: No VTE Prior VTE?: No VTE Risk Level:: Medical - moderate - high VTE Device Contraindication: Treatment Not Indicated VTE Drug Contraindication: N/A - Med Ordered
--- NOTE | 2024-03-22 08:52 | P.PNCC_ITS ---
Subjective Subjective Date of Service: 03/22/24 Critical Care Time (minutes): 40 Comment: Continues to be on ventilator support, propofol for sedation. No further episodes of hematemesis, hemoglobin stable at 8.3 this morning Physical Exam 2 Vital Signs: Vital Signs: Last Vital Signs Temp 96.6 F L 03/22/24 08:00 Pulse 60 03/22/24 08:00 Resp 18 03/22/24 08:00 BP 101/51 L 03/22/24 08:00 Pulse Ox 98 03/22/24 08:00 O2 Del Method Mechanical Ventil ation 03/22/24 08:00 FiO2 28 03/22/24 08:00 BMI result Body Mass Index 37.1 General: acute distress, ill appearing and tired appearing , chronic malnourishment Nutritional Appearance: Poorly nourished and overweight Eyes: appearance normal, both eyes and all related structures; Alignment and Position: alignment normal and position normal Neck: No lymphadenopathy, no thyromegaly Resp: bilateral air entry equal, occasional added sounds present Cardio: Regular rate, regular rhythm; Heart sounds: S1 normal heart sound present and S2 normal heart sound present GI: soft, nontender, no guarding, no hepatosplenomegaly : bladder normal to inspection, bladder normal to palpation, no renal angle tenderness Skin: no rashes or lesions noted and elasticity normal Neuro: Sedated, no focal deficits Objective Data Labs 03/22/24 04:56 03/22/24 04:56 Labs: Laboratory Results - last 24 hr 03/20/24 03/21/24 03/21/24 00:14 14:40 19:09 WBC 5.1 4.4 L RBC 3.10 L D 2.73 L Hgb 9.2 L D 8.3 L Hct 28.0 L D 24.5 L MCV 90.3 89.7 MCH 29.7 30.4 MCHC 32.9 33.9 RDW 19.3 H 19.8 H Plt Count 129 L 122 L MPV 10.0 10.1 Immature Gran % (Auto) Neut % (Auto) Lymph % (Auto) [place] % (Auto) Eos % (Auto) Baso % (Auto) Lymph # (Auto) [place] # (Auto) Eos # (Auto) Baso # (Auto) Abs Immat Gran (auto) Absolute Neuts (auto) Absolute Nucleated RBC 0.000 0.000 Nucleated RBC % (auto) 0.0 0.0 PT 19.4 H INR 1.6 H VBG pH VBG pCO2 VBG pO2 VBG HCO3 VBG O2 Saturation VBG Base Excess Sodium 139 Potassium 3.4 Chloride 107 Carbon Dioxide 26 Anion Gap 9 L BUN 9 Creatinine 0.76 Estim Creat Clear Calc 118.6 Estimated GFR > 60 Random Glucose 106 Calcium 7.8 L Total Bilirubin 7.2 H AST 38 H ALT 16 Alkaline Phosphatase 147 H Total Protein 5.7 L Albumin 2.3 L Blood Type A Positive Antibody Screen NEGATIVE Crossmatch See Detail 03/22/24 03/22/24 04:55 04:56 WBC 4.2 L RBC 2.74 L Hgb 8.3 L Hct 24.4 L MCV 89.1 MCH 30.3 MCHC 34.0 RDW 20.4 H Plt Count 109 L MPV 10.0 Immature Gran % (Auto) 0.7 H Neut % (Auto) 59.7 Lymph % (Auto) 23.8 [place] % (Auto) 9.2 Eos % (Auto) 5.4 H Baso % (Auto) 1.2 Lymph # (Auto) 1.0 L [place] # (Auto) 0.4 Eos # (Auto) 0.2 Baso # (Auto) 0.1 Abs Immat Gran (auto) 0.03 Absolute Neuts (auto) 2.5 Absolute Nucleated RBC 0.000 Nucleated RBC % (auto) 0.0 PT INR VBG pH 7.51 H VBG pCO2 29 VBG pO2 58 VBG HCO3 23 VBG O2 Saturation 92.0 VBG Base Excess 1.1 Sodium 139 Potassium 2.8 L* Chloride 107 Carbon Dioxide 25 Anion Gap 10 L BUN 7 L Creatinine 0.91 Estim Creat Clear Calc 103.5 Estimated GFR > 60 Random Glucose 88 Calcium 7.5 L Total Bilirubin 6.8 H AST 35 ALT 12 Alkaline Phosphatase 114 Total Protein 5.3 L Albumin 2.5 L Blood Type Antibody Screen Crossmatch Microbiology Microbiology Results: Microbiology 03/20/24 00:16 Blood - Venous Blood Culture - Preliminary No growth after 48 hours. 03/20/24 00:12 Blood - Venous Blood Culture - Preliminary No growth after 48 hours. 03/20/24 10:30 Paracentesis Fluid Gram Stain - Final 03/20/24 10:30 Paracentesis Fluid Anaerobic Culture - Preliminary No growth to date. 03/20/24 10:30 Paracentesis Fluid Body Fluid Culture - Preliminary No growth to date. Progress Note: A&P Assessment and plan (1) Acute upper GI bleed: Status: Acute (2) Hepatic encephalopathy: Status: Acute (3) Pulmonary edema: Status: Acute (4) Aspiration pneumonia: Status: Acute (5) Acute hypoxemic respiratory failure: Status: Acute (6) Aspiration pneumonia: Status: Acute Plan Plan Neuro: Acute encephalopathy possibly due to metabolic encephalopathy, however can not rule out underlying hepatic encephalopathy On propofol for sedation, as needed fentanyl for analgesia, we will wean propofol later today and if needed we will switch to Precedex for possibility of alcohol withdrawal Close neurological status monitoring in the ICU Cardiac: Blood pressures remain stable, heart rate stable Respiratory: Acute hypoxemic respiratory failure due to aspiration pneumonia Currently on ventilator support On PRVC mode FiO2 50, PEEP 5, TV 400, RR 16, if the patient is not going for any interventional radiology procedures we will try to wean him off the ventilator today Peak pressures and plateau pressures are under the curve Ventilator management bundle with head end elevation, aspiration precaution, chlorhexidine mouthwash, daily awakening trials, daily spontaneous breathing trials Upper GI bleed: Secondary to esophagitis and esophageal varices Underwent upper GI endoscopy which showed esophagitis and bleeding vessel which was clipped and epinephrine injection was given around. We will talk to Interventional Radiology to see if they are planning for any embolization today Continue octreotide, pantoprazole If the patient has further GI bleed we will transfer him to higher center for IR guided embolization Renal: We will closely monitor I's and O's Avoid nephrotoxic medications Heme: Acute blood loss anemia: Hemoglobin remained stable overnight, 8.3 this morning received 2 PRBC and 2 FFP this admission closely monitor H&H q.6 hours, transfuse for hemoglobin less than 7 grams/deciliter Coagulopathy: Received 4 units of FFP, last INR 1.7 Endocrine: Blood sugars under control Sliding scale insulin as needed Infectious disease: Continue empiric ceftriaxone Musculoskeletal: Decubitus ulcer prevention protocol Lines: Left IJ Cordis placement on 03/21/2024 Arterial line Barber catheter Prophylaxis: SCD, pantoprazole Critical care time spent is about 40 minutes mainly on ventilator management, sedation management, changing ventilator settings, weaning trials, close hemodynamic monitoring at this time is excluding any procedural time Quality Stroke Does the patient have a stroke diagnosis?: No VTE Prior VTE?: No VTE Risk Level:: Medical - moderate - high VTE Device Contraindication: Treatment Not Indicated VTE Drug Contraindication: N/A - Med Ordered
[2024-03-22 09:39] LABS: Hematocrit 25.5 % (42.0-52.0); Hemoglobin 8.5 g/dl (14.0-18.0); Mean Corpuscular HGB Conc 33.3 g/dl (31.0-36.0); Mean Corpuscular Hemoglobin 30.1 pg (27.0-33.0); Mean Corpuscular Volume 90.4 fL (80.0-98.0); Mean Platelet Volume 10.5 fL (9.4-12.4); Platelet Count 113 X10*3/uL (160-400); Red Blood Count 2.82 X10*6/uL (4.60-5.80); Red Cell Distribution Width 20.4 % (11.0-16.0); White Blood Count 4.5 X10*3/uL (4.8-10.8)
--- NOTE | 2024-03-22 10:58 | MHC.CLN ---
PT IS MODERATELY MALNOURISHED PT WITH MODERATELY DEPLETED MUSCLE MASS IN TENRIISM AREA WITH CHRONIC POOR PO INTAKE R/T ETOH ABUSE. PT REPORTED DRINKING ONLY SLUSHIES WITH ALCOHOL IN THEM CORPORATE REPRESENTATIVE WITH NAUSEA AND BLOODY EMESIS. IN ADDITION, PT WITH +3 EDEMA IN LE, HANDS AND ABDOMEN R/T ASCITES. PT IS CURRENTLY INTUBATED AND SEDATED DISCUSSED AT ROUNDS WITH MD TO START PPN-DISCUSSED WITH PHARMACY 03/22/24: RECOMMEND PPN AT 60ML/HR TO PROVIDE 734KCALS, 144G DEXTROSE, 61G PROTEIN REPLETE LYTES NEEDED PT MAY BE AT RISK FOR RE-FEEDING MONITOR K+, MG, AND PHOS CLOSELY CHECK TRIGS 03/23/24 RECOMMEND INCREASING PPN TO 80ML/HR TO PROVIDE 979KCALS, 192G DEXTROSE, 82G PROTEIN REPLETE LYTES NEEDED PT MAY BE AT RISK FOR RE-FEEDING MONITOR K+, MG, AND PHOS CLOSELY 03/24/24 IF TRIGS WNL; RECOMMEND INCREASING PPN TO MAX GOAL RATE 100ML/HR WITH 67G LIPIDS TO PROVIDE 1894 TOTAL KCALS (23KCALS/KG), 240G DEXTROSE, 102G PROTEIN (1.2G/KG) IF TRIGS ARE HELD; TOTAL KCALS OF FORMULA =1224KCALS REPLETE LYTES NEEDED, MONITOR K+, MG, PHOS FOR REFEEDING SEE ALSO FULL CLINICAL NUTRITION ASSESSMENT RD CAN BE REACHED VIA [employer] DURING OFF HOURS IF NEEDED
[2024-03-22 11:08] LABS: Magnesium 1.7 mg/dL (1.6-2.6); Phosphorus 1.4 mg/dL (2.7-4.5)
--- NOTE | 2024-03-22 13:08 | P.CDIM_ITS ---
PROVIDER RESPONSE TEXT: To clarify, the appropriate diagnosis supported by the clinical indicators: Moderate QUERY TEXT: PHYSICIAN'S DOCUMENTATION REQUEST Date of Query: 03/22/2024 10:03 AM EDT Patient Name: Leandro Rico Admit Date: 03/20/2024 Dear Chapincito Arcos MD, A review of the medical record indicates additional documentation may be needed. Please review below and update the documentation accordingly. Documentation includes the diagnosis of chronic malnourishment: Ill appearing and tired, vomiting blood, unable to tolerate anything po. Total protein 5.3 L Albumin 2.5 L If possible, please provide additional specificity regarding the severity of the malnutrition using t he above information: Mild Moderate Severe Other (explain) Clinically unable to determine (explain) Thank you, Shabana Camejo, CCS, CDIS Use of terms such as suspected, likely, concern for, or probable (associated with a specific diagnosi s that is being evaluated, monitored, or treated as if it exists) are acceptable and can be coded in the inpatient se tting, when documented at the time of discharge. Please use your independent medical judgment in providing your response. THIS QUERY IS PART OF THE PERMANENT MEDICAL RECORD
[2024-03-22] MEDS: Albumin Human 25 % 100 ML 133.33 ML IV ×2 (13:55→14:45)
--- NOTE | 2024-03-22 14:28 | P.POSTANES_ITS ---
Post Anesthesia Evaluation Post Anesthesia Evaluation Date of Service: 03/22/24 Vital Signs: Vital Signs Temp Pulse Pulse Resp BP BP Pulse Ox 03/22/24 13:43 96.8 F 18 77/52 L 98 03/22/24 13:00 96.6 F L 57 18 85/54 L 99 03/22/24 12:46 99 03/22/24 12:00 96.6 F L 61 18 103/50 L 97 03/22/24 12:00 03/22/24 12:00 58 89/51 L 03/22/24 11:27 03/22/24 11:00 96.3 F L 56 18 94/50 L 99 03/22/24 10:00 96.4 F L 67 18 135/77 99 03/22/24 09:00 99.9 F 94 22 H 133/52 L 95 03/22/24 08:00 96.6 F L 60 18 101/51 L 98 03/22/24 07:56 03/22/24 07:35 03/22/24 07:30 60 109/59 L 03/22/24 07:00 96.4 F L 58 19 105/54 L 100 03/22/24 06:00 96.4 F L 60 20 107/56 L 99 03/22/24 05:28 54 18 100/53 L 03/22/24 05:28 54 18 100/53 L 03/22/24 05:00 96.4 F L 56 19 97/51 L 98 03/22/24 04:04 03/22/24 04:00 03/22/24 04:00 62 107/54 L 03/22/24 04:00 96.6 F L 62 20 126/55 L 99 03/22/24 02:59 96.4 F L 54 18 105/51 L 100 03/22/24 02:51 58 18 104/50 L 03/22/24 02:51 58 18 104/50 L O2 Del Method FiO2 03/22/24 13:43 Mechanical Ventilation 03/22/24 13:00 Mechanical Ventilation 03/22/24 12:46 Mechanical Ventilation 03/22/24 12:00 Mechanical Ventilation 03/22/24 12:00 03/22/24 12:00 03/22/24 11:27 03/22/24 11:00 Mechanical Ventilation 03/22/24 10:00 Mechanical Ventilation 03/22/24 09:00 Mechanical Ventilation 03/22/24 08:00 Mechanical Ventilation 03/22/24 07:56 03/22/24 07:35 03/22/24 07:30 03/22/24 07:00 Mechanical Ventilation 03/22/24 06:00 Mechanical Ventilation 03/22/24 05:28 03/22/24 05:28 03/22/24 05:00 Mechanical Ventilation 03/22/24 04:04 03/22/24 04:00 03/22/24 04:00 03/22/24 04:00 Mechanical Ventilation 03/22/24 02:59 Mechanical Ventilation 35 03/22/24 02:51 03/22/24 02:51 Anesthesia: General Endotracheal-GETA Mental Status: Sedated Pain Control: Satisfactory Nausea/Vomiting: None Hydration: Adequate Anesthesia-Related Issues: No Anes. Related Issues (pt intubated and sedated af ter GI bleed in endo suite yesterday.)
--- NOTE | 2024-03-22 14:35 | MHC.CM.PN ---
Pt transfered to ICU - intubated -following an EGD after UGI/variceal bleeding. Pt w/known and active ETOH hx and several admissions r/t dx. Original d/c plan includes a return to home w/family, VNA and possible [facility] services. Unknown if pt will be physically capable of this plan and should be re-evaluated. CM to follow for finalization of d/c plans.
[2024-03-22 16:39] LABS: MANUAL DIFF FLAG NO
[2024-03-22 16:45] LABS: Basophils Percent Auto 0.9 % (0-2); Eosinophils Absolute Auto 0.2 X10*3/uL (0.0-0.4); Hematocrit 25.4 % (42.0-52.0); Hemoglobin 8.5 g/dl (14.0-18.0); Imm Gran Abs Auto 0.04 X10*3/uL (0.00-0.03); Imm Gran Pct Auto 0.9 % (0.0-0.4); Lymphocytes Absolute Auto 0.9 X10*3/uL (1.2-4.9); Lymphocytes Percent Auto 20.2 % (20-40); Mean Corpuscular HGB Conc 33.5 g/dl (31.0-36.0); Mean Corpuscular Hemoglobin 30.1 pg (27.0-33.0); Mean Corpuscular Volume 90.1 fL (80.0-98.0); Mean Platelet Volume 10.9 fL (9.4-12.4); Monocytes Absolute Auto 0.4 X10*3/uL (0.1-1.2); Monocytes Percent Auto 8.2 % (2-11); Neutrophils Absolute Auto 2.9 x10*3/uL (2.0-8.3); Neutrophils Percent Auto 64.8 % (45-73); Platelet Count 113 X10*3/uL (160-400); Red Blood Count 2.82 X10*6/uL (4.60-5.80); Red Cell Distribution Width 20.4 % (11.0-16.0); White Blood Count 4.4 X10*3/uL (4.8-10.8)
[2024-03-22] MEDS: cefTRIAXone sodium 2 GM in 0.9 % Sodium Chloride 50 ML IV (18:20)
[2024-03-22] MEDS: Parenteral Nutrition 1,440 ML 60 ML IV (21:03)
[2024-03-22] MEDS: Albumin Human 25 % 100 ML IV (23:07)
[2024-03-22 23:26] LABS: Hematocrit 25.4 % (42.0-52.0); Hemoglobin 8.3 g/dl (14.0-18.0); Mean Corpuscular HGB Conc 32.7 g/dl (31.0-36.0); Mean Corpuscular Hemoglobin 29.7 pg (27.0-33.0); Mean Platelet Volume 10.5 fL (9.4-12.4); Platelet Count 103 X10*3/uL (160-400); Red Blood Count 2.79 X10*6/uL (4.60-5.80); Red Cell Distribution Width 20.5 % (11.0-16.0); White Blood Count 4.3 X10*3/uL (4.8-10.8)
[2024-03-22 23:37] LABS: Alanine Aminotransferase 13 U/L (0-40); Albumin Level 2.6 g/dL (3.5-5.0); Alkaline Phosphatase 110 U/L (39-117); Anion Gap 13 (12-20); Aspartate Amino Transferase 46 U/L (5-37); Blood Urea Nitrogen 5 mg/dL (9-16); Calcium 7.2 mg/dL (8.4-10.2); Carbon Dioxide 19 mmol/L (22-29); Chloride 111 mmol/L (96-108); Creatinine Clr Calc Pharmacy 114.8; Estimated Glomerular Filt Rate > 60; Glucose Random 124 mg/dL (60-115); Magnesium 1.8 mg/dL (1.6-2.6); Phosphorus 1.5 mg/dL (2.7-4.5); Potassium 3.4 mmol/L (3.3-5.1); Sodium 140 mmol/L (135-145); Total Protein 5.1 g/dL (6.5-8.0)
[2024-03-22] MEDS: Magnesium Sulfate/H2O 2 GM/50 ML PIGGYBACK IV (23:48)
[2024-03-23] VITALS (33 sets, daily range): BP systolic 85–124; BP diastolic 45–94; PULSE 52–71; RESP 17–28; TEMP 34.3–37.2; O2SAT 92–100; BMI 37.2
[2024-03-23] MEDS: Albumin Human 25 % 100 ML IV ×2 (00:09→22:29)
[2024-03-23 01:24] LABS: Hematocrit 24.2 % (42.0-52.0); Hemoglobin 8.1 g/dl (14.0-18.0); Mean Corpuscular HGB Conc 33.5 g/dl (31.0-36.0); Mean Corpuscular Hemoglobin 30.3 pg (27.0-33.0); Mean Corpuscular Volume 90.6 fL (80.0-98.0); Mean Platelet Volume 10.4 fL (9.4-12.4); Platelet Count 105 X10*3/uL (160-400); Red Blood Count 2.67 X10*6/uL (4.60-5.80); Red Cell Distribution Width 20.5 % (11.0-16.0); White Blood Count 4.3 X10*3/uL (4.8-10.8)
[2024-03-23] MEDS: Potassium Phosphate/NS 15 MMOL/250 ML PLAST..BAG 62.5 MMOL IV ×4 (01:48→14:53)
[2024-03-23] MEDS: propofoL 1,000 MG/100 ML VIAL 23.71 MG IVCONT (02:59)
[2024-03-23] MEDS: Octreotide Acetate 500 MCG in 0.9 % Sodium Chloride 500 ML 50.1 MCG IVCONT ×2 (04:37→14:51)
[2024-03-23 04:48] LABS: VBG Base Excess -0.6 mmol/L; VBG HCO3 21 mmol/L (22-26); VBG pCO2 28 mmHg; VBG pH 7.49 (7.32-7.43); VBG pO2 53 mmHg
[2024-03-23 04:52] LABS: Venous Blood Gas Refer to POC result
[2024-03-23 05:05] LABS: MANUAL DIFF FLAG NO
[2024-03-23 05:06] LABS: Eosinophils Absolute Auto 0.2 X10*3/uL (0.0-0.4); Eosinophils Percent Auto 4.5 % (0-4); Hematocrit 24.7 % (42.0-52.0); Hemoglobin 8.1 g/dl (14.0-18.0); Imm Gran Abs Auto 0.04 X10*3/uL (0.00-0.03); Lymphocytes Absolute Auto 0.7 X10*3/uL (1.2-4.9); Mean Corpuscular HGB Conc 32.8 g/dl (31.0-36.0); Mean Corpuscular Hemoglobin 29.6 pg (27.0-33.0); Mean Corpuscular Volume 90.1 fL (80.0-98.0); Mean Platelet Volume 10.1 fL (9.4-12.4); Monocytes Absolute Auto 0.5 X10*3/uL (0.1-1.2); Monocytes Percent Auto 11.2 % (2-11); Neutrophils Absolute Auto 2.7 x10*3/uL (2.0-8.3); Neutrophils Percent Auto 65.3 % (45-73); Platelet Count 103 X10*3/uL (160-400); Red Blood Count 2.74 X10*6/uL (4.60-5.80); Red Cell Distribution Width 20.8 % (11.0-16.0); White Blood Count 4.2 X10*3/uL (4.8-10.8)
[2024-03-23 05:24] LABS: Alanine Aminotransferase 15 U/L (0-40); Alkaline Phosphatase 106 U/L (39-117); Anion Gap 14 (12-20); Aspartate Amino Transferase 47 U/L (5-37); Bilirubin Total 6.1 mg/dL (0.0-1.0); Blood Urea Nitrogen 5 mg/dL (9-16); Calcium 7.8 mg/dL (8.4-10.2); Carbon Dioxide 19 mmol/L (22-29); Chloride 111 mmol/L (96-108); Creatinine Clr Calc Pharmacy 101.2; Estimated Glomerular Filt Rate > 60; Glucose Random 156 mg/dL (60-115); Magnesium 2.1 mg/dL (1.6-2.6); Potassium 3.7 mmol/L (3.3-5.1); Sodium 140 mmol/L (135-145); Total Protein 5.4 g/dL (6.5-8.0); Triglycerides 93 mg/dL (<150)
[2024-03-23] MEDS: propofoL 1,000 MG/100 ML VIAL 29.64 MG IVCONT ×2 (05:55→09:15)
[2024-03-23] MEDS: Pantoprazole Sodium 40 MG/10 ML VIAL IVPUSH (05:55)
[2024-03-23] MEDS: 0.9 % Sodium Chloride Flush 3 ML SYRINGE IVFLUSH ×2 (07:51→18:08)
[2024-03-23] MEDS: Thiamine HCL 100 MG in 0.9 % Sodium Chloride 100 ML 202 MG IV (07:54)
[2024-03-23 09:32] LABS: Hemoglobin 8.2 g/dl (14.0-18.0); Mean Corpuscular HGB Conc 32.8 g/dl (31.0-36.0); Mean Corpuscular Hemoglobin 29.7 pg (27.0-33.0); Mean Corpuscular Volume 90.6 fL (80.0-98.0); Mean Platelet Volume 10.9 fL (9.4-12.4); Platelet Count 106 X10*3/uL (160-400); Red Blood Count 2.76 X10*6/uL (4.60-5.80); Red Cell Distribution Width 20.9 % (11.0-16.0); White Blood Count 4.6 X10*3/uL (4.8-10.8)
--- NOTE | 2024-03-23 11:23 | PM.CCPN ---
Subjective Subjective Date of Service: 03/23/24 Critical Care Time (minutes): 45 Comment: Continues to be on ventilator support this morning Hemoglobin stable, no further drop in hemoglobin, 8.1 this morning On propofol for sedation which we will taper off for weaning from ventilator Physical Exam Vital Signs: Vital Signs: Last Vital Signs Temp 95.9 F L 03/23/24 11:00 Pulse 66 03/23/24 11:00 Resp 28 H 03/23/24 11:00 BP 108/94 H 03/23/24 11:00 Pulse Ox 100 03/23/24 11:00 O2 Del Method Mechanical Ventil ation 03/23/24 11:00 FiO2 21 03/23/24 11:00 BMI result Body Mass Index 37.2 General: acute distress, ill appearing and tired appearing , skin icteric Nutritional Appearance: well nourished and overweight Eyes: appearance normal, both eyes and all related structures; Alignment and Position: alignment normal and position normal, sclerae icteric Neck: No lymphadenopathy, no thyromegaly Resp: bilateral air entry equal, occasional added sounds present Cardio: Regular rate, regular rhythm; Heart sounds: S1 normal heart sound present and S2 normal heart sound present GI: soft, distended, nontender, no guarding, no hepatosplenomegaly : bladder normal to inspection, bladder normal to palpation, no renal angle tenderness Skin: no rashes or lesions noted and elasticity normal Neuro: o sedated with propofol, no focal deficits Objective Data Labs 03/23/24 09:21 03/23/24 04:35 Labs: Laboratory Results - last 24 hr 03/22/24 03/22/24 03/23/24 16:33 23:05 01:18 WBC 4.4 L 4.3 L 4.3 L RBC 2.82 L 2.79 L 2.67 L Hgb 8.5 L 8.3 L 8.1 L Hct 25.4 L 25.4 L 24.2 L MCV 90.1 91.0 90.6 MCH 30.1 29.7 30.3 MCHC 33.5 32.7 33.5 RDW 20.4 H 20.5 H 20.5 H Plt Count 113 L 103 L 105 L MPV 10.9 10.5 10.4 Immature Gran % (Auto) 0.9 H Neut % (Auto) 64.8 Lymph % (Auto) 20.2 [place] % (Auto) 8.2 Eos % (Auto) 5.0 H Baso % (Auto) 0.9 Lymph # (Auto) 0.9 L [place] # (Auto) 0.4 Eos # (Auto) 0.2 Baso # (Auto) 0.0 Abs Immat Gran (auto) 0.04 H Absolute Neuts (auto) 2.9 Absolute Nucleated RBC 0.000 0.000 0.000 Nucleated RBC % (auto) 0.0 0.0 0.0 VBG pH VBG pCO2 VBG pO2 VBG HCO3 VBG O2 Saturation VBG Base Excess Sodium 140 Potassium 3.4 D Chloride 111 H Carbon Dioxide 19 L Anion Gap 13 BUN 5 L Creatinine 0.82 Estim Creat Clear Calc 114.8 Estimated GFR > 60 Random Glucose 124 H Calcium 7.2 L Phosphorus 1.5 L Magnesium 1.8 Total Bilirubin 6.0 H AST 46 H ALT 13 Alkaline Phosphatase 110 Total Protein 5.1 L Albumin 2.6 L Triglycerides 03/23/24 03/23/24 04:35 09:21 WBC 4.2 L 4.6 L RBC 2.74 L 2.76 L Hgb 8.1 L 8.2 L Hct 24.7 L 25.0 L MCV 90.1 90.6 MCH 29.6 29.7 MCHC 32.8 32.8 RDW 20.8 H 20.9 H Plt Count 103 L 106 L MPV 10.1 10.9 Immature Gran % (Auto) 1.0 H Neut % (Auto) 65.3 Lymph % (Auto) 17.0 L [place] % (Auto) 11.2 H Eos % (Auto) 4.5 H Baso % (Auto) 1.0 Lymph # (Auto) 0.7 L [place] # (Auto) 0.5 Eos # (Auto) 0.2 Baso # (Auto) 0.0 Abs Immat Gran (auto) 0.04 H Absolute Neuts (auto) 2.7 Absolute Nucleated RBC 0.000 0.000 Nucleated RBC % (auto) 0.0 0.0 VBG pH 7.49 H VBG pCO2 28 VBG pO2 53 VBG HCO3 21 L VBG O2 Saturation 89.0 VBG Base Excess -0.6 Sodium 140 Potassium 3.7 Chloride 111 H Carbon Dioxide 19 L Anion Gap 14 BUN 5 L Creatinine 0.93 Estim Creat Clear Calc 101.2 Estimated GFR > 60 Random Glucose 156 H Calcium 7.8 L D Phosphorus 2.0 L Magnesium 2.1 Total Bilirubin 6.1 H AST 47 H ALT 15 Alkaline Phosphatase 106 Total Protein 5.4 L Albumin 3.0 L Triglycerides 93 Microbiology Microbiology Results: Microbiology 03/20/24 10:30 Paracentesis Fluid Gram Stain - Final 03/20/24 10:30 Paracentesis Fluid Anaerobic Culture - Preliminary No growth to date. 03/20/24 10:30 Paracentesis Fluid Body Fluid Culture - Final No growth after 2 days 03/20/24 00:16 Blood - Venous Blood Culture - Preliminary No growth after 48 hours. 03/20/24 00:12 Blood - Venous Blood Culture - Preliminary No growth after 48 hours. Progress Note: A&P Assessment and plan (1) Acute upper GI bleed: Status: Acute (2) Hepatic encephalopathy: Status: Acute (3) Pulmonary edema: Status: Acute (4) Congestive heart failure: Status: Acute (5) Aspiration pneumonia: Status: Acute (6) Acute hypoxemic respiratory failure: Status: Acute Plan Neuro: Acute encephalopathy possibly due to metabolic encephalopathy, however can not rule out underlying hepatic encephalopathy On propofol for sedation, as needed fentanyl for analgesia, we will wean propofol in order to wean from ventilator Close neurological status monitoring in the ICU Cardiac: Blood pressures remain stable, heart rate stable Respiratory: Acute hypoxemic respiratory failure due to aspiration pneumonia Currently on ventilator support On PRVC mode FiO2 50, PEEP 5, TV 400, RR 16, once the patient is more awake we will place him on pressor support if he does well we will get the weaning trials Peak pressures and plateau pressures are under the curve Ventilator management bundle with head end elevation, aspiration precaution, chlorhexidine mouthwash, daily awakening trials, daily spontaneous breathing trials Upper GI bleed: Secondary to esophagitis and esophageal varices Underwent upper GI endoscopy which showed esophagitis and bleeding vessel which was clipped and epinephrine injection was given around. Continue octreotide for a total of 72 hours, pantoprazole If the patient has further GI bleed we will transfer him to [facility] for IR guided embolization Renal: We will closely monitor I's and O's Avoid nephrotoxic medications Heme: Acute blood loss anemia: Hemoglobin remained stable overnight, 8.1 this morning received 2 PRBC and 3 FFP this admission closely monitor H&H q.6 hours, transfuse for hemoglobin less than 7 grams/deciliter Coagulopathy: Received 4 units of FFP, last INR 1.7 Endocrine: Blood sugars under control Sliding scale insulin as needed Infectious disease: Continue empiric ceftriaxone Musculoskeletal: Decubitus ulcer prevention protocol Lines: Left IJ Cordis placement on 03/21/2024 Arterial line Barber catheter Prophylaxis: SCD, pantoprazole Had goals of care discussion with patient's parents who wants him to be on hospice upon discharge from hospital; however the POA is his son and girlfriend Total critical care time spent is about 45 minutes on sedation management, weaning sedation, ventilator management, change ventilator settings, weaning trials and this time is excluding any procedure time or goals of care discussion with the family Quality Stroke Does the patient have a stroke diagnosis?: No VTE Prior VTE?: No VTE Risk Level:: Medical - moderate - high VTE Device Contraindication: Treatment Not Indicated VTE Drug Contraindication: N/A - Med Ordered
[2024-03-23] MEDS: Ammonium Lactate 12 % Lotion 226 GM BOTTLE 1 APPL TOPICAL ×2 (14:54→20:36)
--- NOTE | 2024-03-23 15:20 | MHC.CM.PN ---
Patient remains intubated/vented in ICU. Patient's son/HCP, Colten and his requested to speak to CM. T/W met with both. Both are concerned patient has a history of ETOH abuse and continues to drink. Information on Section 35 for when patient is medically stable provided. Both verbalized understanding. Continue to monitor for d/c needs.
--- NOTE | 2024-03-23 15:22 | PC.NURSE ---
assumed care of patient 0700 sedation vacation per MD started 09:35. Propofol gtt paused 10:30 Pt able to follow some commands to wiggle toes and lift head off pillow. Pt opens eyes to name. PSV trial 8/5.0 attempted with RT at bedside. Pt had episodes of apnea frequently. RT changed vent settings back to ACVC. 12:00 RT at bedside, PSV trial attempted again. Apnea alarms continued. 14:38 PSV trial 8/5.0 21% with RT. RR 16, volumes ~300. Pt unable to sustain volumes. RT placed back on ACVC settings. Sedation vacation continued. 15:30 Pt had vent dysynchrony, facial grimacing, signs of anxiety, shaking head no. Propofol gtt resumed @ 10 mcg/kg/min for light sedation.
[2024-03-23 17:36] LABS: Hemoglobin 8.2 g/dl (14.0-18.0); Mean Corpuscular HGB Conc 32.8 g/dl (31.0-36.0); Mean Corpuscular Hemoglobin 29.8 pg (27.0-33.0); Mean Corpuscular Volume 90.9 fL (80.0-98.0); Red Blood Count 2.75 X10*6/uL (4.60-5.80); Red Cell Distribution Width 21.1 % (11.0-16.0); White Blood Count 4.8 X10*3/uL (4.8-10.8)
[2024-03-23 17:55] LABS: Platelet Count 98 X10*3/uL (160-400)
[2024-03-23] MEDS: cefTRIAXone sodium 2 GM in 0.9 % Sodium Chloride 50 ML IV (18:08)
[2024-03-23] MEDS: Chlorhexidine Gluc Oral Rinse 15 ML MOUTHWASH BUCCAL ×2 (18:08→21:53)
[2024-03-23] MEDS: Parenteral Nutrition 1,920 ML 80 ML IV (20:35)
[2024-03-23 21:56] LABS: Alanine Aminotransferase 15 U/L (0-40); Albumin Level 2.6 g/dL (3.5-5.0); Alkaline Phosphatase 99 U/L (39-117); Anion Gap 9 (12-20); Aspartate Amino Transferase 55 U/L (5-37); Bilirubin Total 5.1 mg/dL (0.0-1.0); Blood Urea Nitrogen 5 mg/dL (9-16); Calcium 7.4 mg/dL (8.4-10.2); Carbon Dioxide 20 mmol/L (22-29); Chloride 115 mmol/L (96-108); Creatinine Clr Calc Pharmacy 110.9; Estimated Glomerular Filt Rate > 60; Glucose Random 148 mg/dL (60-115); Phosphorus 2.8 mg/dL (2.7-4.5); Potassium 4.1 mmol/L (3.3-5.1); Sodium 140 mmol/L (135-145); Total Protein 5.2 g/dL (6.5-8.0)
[2024-03-23 23:08] LABS: Ammonia 48 umol/L (13-55)
[2024-03-24] VITALS (31 sets, daily range): BP systolic 84–125; BP diastolic 46–80; PULSE 47–76; RESP 11–20; TEMP 35.2–36.8; O2SAT 91–99; BMI 38.2
[2024-03-24] MEDS: dexmedeTOMIDidine HCL/NS 400 MCG/100 ML INFUS..BTL 26.95 MCG IVCONT (00:50)
[2024-03-24] MEDS: Octreotide Acetate 500 MCG in 0.9 % Sodium Chloride 500 ML 50.1 MCG IVCONT ×3 (00:50→20:09)
[2024-03-24] MEDS: Albumin Human 25 % 100 ML IV ×9 (00:57→23:27)
[2024-03-24] MEDS: 0.9 % Sodium Chloride Flush 3 ML SYRINGE IVFLUSH ×4 (01:02→20:24)
[2024-03-24 01:24] LABS: Hematocrit 24.1 % (42.0-52.0); Hemoglobin 7.9 g/dl (14.0-18.0); Mean Corpuscular HGB Conc 32.8 g/dl (31.0-36.0); Mean Corpuscular Volume 91.6 fL (80.0-98.0); Mean Platelet Volume 10.3 fL (9.4-12.4); Red Blood Count 2.63 X10*6/uL (4.60-5.80); Red Cell Distribution Width 20.9 % (11.0-16.0)
[2024-03-24 01:25] LABS: Platelet Count 97 X10*3/uL (160-400)
[2024-03-24 05:10] LABS: VBG Base Excess -2.1 mmol/L; VBG HCO3 22 mmol/L (22-26); VBG pCO2 35 mmHg; VBG pO2 45 mmHg
[2024-03-24 05:17] LABS: Venous Blood Gas Refer to POC result
[2024-03-24 05:30] LABS: Alanine Aminotransferase 14 U/L (0-40); Alkaline Phosphatase 88 U/L (39-117); Anion Gap 10 (12-20); Aspartate Amino Transferase 45 U/L (5-37); Bilirubin Total 4.9 mg/dL (0.0-1.0); Blood Urea Nitrogen 6 mg/dL (9-16); Calcium 7.6 mg/dL (8.4-10.2); Carbon Dioxide 20 mmol/L (22-29); Chloride 114 mmol/L (96-108); Estimated Glomerular Filt Rate > 60; Glucose Random 144 mg/dL (60-115); Phosphorus 2.8 mg/dL (2.7-4.5); Potassium 3.9 mmol/L (3.3-5.1); Sodium 140 mmol/L (135-145); Total Protein 5.5 g/dL (6.5-8.0)
[2024-03-24] MEDS: Thiamine HCL 100 MG in 0.9 % Sodium Chloride 100 ML 202 MG IV (08:41)
[2024-03-24] MEDS: Chlorhexidine Gluc Oral Rinse 15 ML MOUTHWASH BUCCAL (08:47)
[2024-03-24 09:31] LABS: Hematocrit 24.7 % (42.0-52.0); Hemoglobin 7.9 g/dl (14.0-18.0); Mean Corpuscular Hemoglobin 29.9 pg (27.0-33.0); Mean Corpuscular Volume 93.6 fL (80.0-98.0); Mean Platelet Volume 10.8 fL (9.4-12.4); Red Blood Count 2.64 X10*6/uL (4.60-5.80); Red Cell Distribution Width 21.2 % (11.0-16.0); White Blood Count 4.5 X10*3/uL (4.8-10.8)
[2024-03-24 09:44] LABS: Platelet Count 87 X10*3/uL (160-400)
[2024-03-24] MEDS: Furosemide 40 MG/4 ML VIAL IVPUSH (10:04)
[2024-03-24] MEDS: Ammonium Lactate 12 % Lotion 226 GM BOTTLE 1 APPL TOPICAL (10:16)
--- NOTE | 2024-03-24 10:18 | PM.CCPN ---
Subjective Subjective Date of Service: 03/24/24 Critical Care Time (minutes): 40 Comment: Failed weaning trials yesterday due to poor mental status Placed him on pressor support trials again this morning, did well, weaning parameters look good so the patient is extubated. We will continue to closely monitor his respiratory status postextubation Physical Exam Vital Signs: Vital Signs: Last Vital Signs Temp 96.3 F L 03/24/24 10:00 Pulse 57 03/24/24 10:00 Resp 15 03/24/24 10:00 BP 107/59 L 03/24/24 10:04 Pulse Ox 95 03/24/24 10:00 O2 Del Method Mechanical Ventil ation 03/24/24 10:00 FiO2 21 03/24/24 10:00 BMI result Body Mass Index 38.2 General: acute distress, ill appearing and tired appearing Nutritional Appearance: well nourished and overweight Eyes: icterus+, palor+ Neck: No lymphadenopathy, no thyromegaly Resp: bilateral air entry equal, occasional added sounds present Cardio: Regular rate, regular rhythm; Heart sounds: S1 normal heart sound present and S2 normal heart sound present GI: soft, nontender, no guarding, no hepatosplenomegaly : bladder normal to inspection, bladder normal to palpation, no renal angle tenderness Skin: no rashes or lesions noted and elasticity normal Neuro: no focal deficits, moves all extremities Objective Data Labs 03/24/24 09:13 03/24/24 05:00 Labs: Laboratory Results - last 24 hr 03/23/24 03/23/24 03/23/24 17:22 21:30 21:31 WBC 4.8 RBC 2.75 L Hgb 8.2 L Hct 25.0 L MCV 90.9 MCH 29.8 MCHC 32.8 RDW 21.1 H Plt Count 98 L MPV 10.0 Absolute Nucleated RBC 0.000 Nucleated RBC % (auto) 0.0 VBG pH VBG pCO2 VBG pO2 VBG HCO3 VBG O2 Saturation VBG Base Excess Sodium 140 Potassium 4.1 Chloride 115 H Carbon Dioxide 20 L Anion Gap 9 L BUN 5 L Creatinine 0.85 Estim Creat Clear Calc 110.9 Estimated GFR > 60 Random Glucose 148 H Calcium 7.4 L Phosphorus 2.8 Magnesium 2.0 Total Bilirubin 5.1 H AST 55 H ALT 15 Alkaline Phosphatase 99 Ammonia 48 Total Protein 5.2 L Albumin 2.6 L 03/24/24 03/24/24 03/24/24 01:19 05:00 05:02 WBC 5.0 RBC 2.63 L Hgb 7.9 L Hct 24.1 L MCV 91.6 MCH 30.0 MCHC 32.8 RDW 20.9 H Plt Count 97 L MPV 10.3 Absolute Nucleated RBC 0.000 Nucleated RBC % (auto) 0.0 VBG pH 7.40 VBG pCO2 35 VBG pO2 45 VBG HCO3 22 VBG O2 Saturation 76.0 VBG Base Excess -2.1 Sodium 140 Potassium 3.9 Chloride 114 H Carbon Dioxide 20 L Anion Gap 10 L BUN 6 L Creatinine 0.81 Estim Creat Clear Calc 118.0 Estimated GFR > 60 Random Glucose 144 H Calcium 7.6 L Phosphorus 2.8 Magnesium 2.0 Total Bilirubin 4.9 H AST 45 H ALT 14 Alkaline Phosphatase 88 Ammonia Total Protein 5.5 L Albumin 3.0 L 03/24/24 09:13 WBC 4.5 L RBC 2.64 L Hgb 7.9 L Hct 24.7 L MCV 93.6 MCH 29.9 MCHC 32.0 RDW 21.2 H Plt Count 87 L MPV 10.8 Absolute Nucleated RBC 0.000 Nucleated RBC % (auto) 0.0 VBG pH VBG pCO2 VBG pO2 VBG HCO3 VBG O2 Saturation VBG Base Excess Sodium Potassium Chloride Carbon Dioxide Anion Gap BUN Creatinine Estim Creat Clear Calc Estimated GFR Random Glucose Calcium Phosphorus Magnesium Total Bilirubin AST ALT Alkaline Phosphatase Ammonia Total Protein Albumin Microbiology Microbiology Results: Microbiology 03/20/24 10:30 Paracentesis Fluid Gram Stain - Final 03/20/24 10:30 Paracentesis Fluid Anaerobic Culture - Preliminary No growth to date. 03/20/24 10:30 Paracentesis Fluid Body Fluid Culture - Final No growth after 2 days 03/20/24 00:16 Blood - Venous Blood Culture - Preliminary No growth after 48 hours. 03/20/24 00:12 Blood - Venous Blood Culture - Preliminary No growth after 48 hours. Progress Note: A&P Assessment and plan (1) Acute upper GI bleed: Status: Acute (2) Hepatic encephalopathy: Status: Acute (3) Pulmonary edema: Status: Acute (4) Aspiration pneumonia: Status: Acute (5) Acute hypoxemic respiratory failure: Status: Acute Plan Neuro: Acute encephalopathy possibly due to metabolic encephalopathy, however can not rule out underlying hepatic encephalopathy Propofol tapered off to wean from ventilator, as needed fentanyl for pain control Close neurological status monitoring in the ICU Cardiac: Blood pressures remain stable, heart rate stable Respiratory: Acute hypoxemic respiratory failure due to aspiration pneumonia Currently on ventilator support On PRVC mode FiO2 50, PEEP 5, TV 400, RR 16, patient was placed on pressor support trials this morning, he did well weaning parameters look good. Patient is extubated, we will continue to closely monitor his respiratory status for next 24 hours Upper GI bleed: Secondary to esophagitis and esophageal varices Underwent upper GI endoscopy which showed esophagitis and bleeding vessel which was clipped and epinephrine injection was given around. Continue octreotide for a total of 72 hours and then stop, pantoprazole If the patient has further GI bleed we will transfer him to [facility] for IR guided embolization Renal: We will closely monitor I's and O's Avoid nephrotoxic medications Heme: Acute blood loss anemia: Hemoglobin remained stable, no further bleeding received 2 PRBC and 3 FFP this admission closely monitor H&H q.6 hours, transfuse for hemoglobin less than 7 grams/deciliter Coagulopathy: Received 4 units of FFP, last INR 1.7 Endocrine: Blood sugars under control Sliding scale insulin as needed Infectious disease: Continue empiric ceftriaxone Musculoskeletal: Decubitus ulcer prevention protocol Lines: Left IJ Cordis placement on 03/21/2024 Arterial line Barber catheter Prophylaxis: SCD, pantoprazole Critical care time spent is about 40 minutes mainly on managing patient sedation, managing ventilator settings, tingling ventilator settings, weaning trials, postextubation care. Quality Stroke Does the patient have a stroke diagnosis?: No VTE Prior VTE?: No VTE Risk Level:: Medical - moderate - high VTE Device Contraindication: Treatment Not Indicated VTE Drug Contraindication: N/A - Med Ordered
[2024-03-24 17:32] LABS: Hematocrit 25.8 % (42.0-52.0); Hemoglobin 8.3 g/dl (14.0-18.0); Mean Corpuscular HGB Conc 32.2 g/dl (31.0-36.0); Mean Corpuscular Hemoglobin 30.3 pg (27.0-33.0); Mean Corpuscular Volume 94.2 fL (80.0-98.0); Mean Platelet Volume 10.4 fL (9.4-12.4); Red Blood Count 2.74 X10*6/uL (4.60-5.80); Red Cell Distribution Width 21.1 % (11.0-16.0); White Blood Count 5.6 X10*3/uL (4.8-10.8)
[2024-03-24] MEDS: cefTRIAXone sodium 2 GM in 0.9 % Sodium Chloride 50 ML IV (17:32)
[2024-03-24 17:38] LABS: Platelet Count 99 X10*3/uL (160-400)
[2024-03-24] MEDS: Parenteral Nutrition 2,400 ML 100 ML IV (20:03)
[2024-03-24] MEDS: Furosemide 200 MG in 0.9 % Sodium Chloride 80 ML IVCONT (20:38)
[2024-03-24 21:33] LABS: Alanine Aminotransferase 16 U/L (0-40); Albumin Level 3.4 g/dL (3.5-5.0); Alkaline Phosphatase 99 U/L (39-117); Anion Gap 12 (12-20); Aspartate Amino Transferase 51 U/L (5-37); Bilirubin Total 5.4 mg/dL (0.0-1.0); Blood Urea Nitrogen 8 mg/dL (9-16); Calcium 8.5 mg/dL (8.4-10.2); Carbon Dioxide 23 mmol/L (22-29); Chloride 111 mmol/L (96-108); Creatinine Clr Calc Pharmacy 108.6; Estimated Glomerular Filt Rate > 60; Glucose Random 123 mg/dL (60-115); Potassium 4.1 mmol/L (3.3-5.1); Sodium 142 mmol/L (135-145); Total Protein 6.2 g/dL (6.5-8.0)
--- NOTE | 2024-03-24 22:49 | PC.NURSE ---
LASIX DRIP INITIATED AT 5 MG/HR PER DEC..LASIX DRIP TITRATED TO 10 MG/HR PER ICU PA VERBAL INSTRUCTIONS
[2024-03-25] VITALS (13 sets, daily range): BP systolic 102–129; BP diastolic 5–60; PULSE 61–71; RESP 10–20; TEMP 35.9–36.8; O2SAT 92–99; BMI 37.0
[2024-03-25] MEDS: Albumin Human 25 % 100 ML IV ×2 (00:35→01:47)
--- NOTE | 2024-03-25 02:11 | PC.NURSE ---
PARENTERAL NUTRITION IV ACCESS LOST...TO MAINTAIN OCTREOTIDE AND LASIX DRIPS PER ICU PA AND TO HOLD PARENTERAL NUTRITION AT PRESENT..UNABLE TO OBTAIN ADDITIONAL IV ACCESS...PER PA ?MID-LINE OR PICC LINE IN AM
--- NOTE | 2024-03-25 02:40 | PC.NURSE ---
CARE ASSUMED 7PM...PATIENT AWAKE..ALERT..ORIENTED X3...OCASSIONAL VAGUE RESPONSES....O2 1 L/M CANNULA..DENIES SOB....OCTREOTIDE INFUSING 50 MCG/HR....PERIPHERAL HYPERAL INFUSING 100 CC/HR BUT HELD 2AM D/T LACK OF IV ACCESS PREVIOUSLY NOTED..LASIX DRIP 10 MG/HR ...REMAINS WITH TENSE EDEMA FROM WAIST TO THIGHS... PER SHIFT REPORT LEFT HAND SWOLLEN AND WEEPING LARGE AMOUNTS SEROUS FLUID...LEFT FOREARM WITH MULTIPLE SKIN TEARS WEEPING LARGE AMOUNTS SEROUS FLUID....BOTH LEFT ARM AND HAND DRESSINGS REDRESSED MULTIPLE TIMES FOR LARGE AMOUNTS SEROUS DRAINAGE...MURPHY DRAINING LARGE AMOUNTS URINE ON LASIX DRIP...FLUID BALANCE SINCE ADMISSION REMAINS >7 LITERS (+)...NSR..NO ECTOPY...RIGHT FEMORAL ARTERIAL LINE POSITIONAL WAVEFORM...DENIES NAUSEA OR ABDOMINAL PAIN
[2024-03-25 05:33] LABS: Hematocrit 25.3 % (42.0-52.0); Hemoglobin 8.3 g/dl (14.0-18.0); Mean Corpuscular HGB Conc 32.8 g/dl (31.0-36.0); Mean Corpuscular Hemoglobin 30.4 pg (27.0-33.0); Mean Corpuscular Volume 92.7 fL (80.0-98.0); Mean Platelet Volume 10.3 fL (9.4-12.4); Red Blood Count 2.73 X10*6/uL (4.60-5.80); Red Cell Distribution Width 21.1 % (11.0-16.0); White Blood Count 5.4 X10*3/uL (4.8-10.8)
[2024-03-25 05:34] LABS: Platelet Count 98 X10*3/uL (160-400)
[2024-03-25] MEDS: Octreotide Acetate 500 MCG in 0.9 % Sodium Chloride 500 ML 50.1 MCG IVCONT ×2 (05:36→16:29)
[2024-03-25 05:49] LABS: Alanine Aminotransferase 13 U/L (0-40); Alkaline Phosphatase 84 U/L (39-117); Anion Gap 11 (12-20); Aspartate Amino Transferase 41 U/L (5-37); Bilirubin Total 5.6 mg/dL (0.0-1.0); Blood Urea Nitrogen 9 mg/dL (9-16); Calcium 8.8 mg/dL (8.4-10.2); Carbon Dioxide 27 mmol/L (22-29); Chloride 109 mmol/L (96-108); Estimated Glomerular Filt Rate > 60; Glucose Random 105 mg/dL (60-115); Phosphorus 3.1 mg/dL (2.7-4.5); Potassium 3.7 mmol/L (3.3-5.1); Sodium 143 mmol/L (135-145); Total Protein 6.5 g/dL (6.5-8.0)
--- NOTE | 2024-03-25 05:54 | PM.CCN ---
Critical Care Event Note Summary Date of Service: 03/25/24 Code activated: No Narrative: This case had a high probability of a clinically significant, sudden, or life threatening deterioration of this patient's condition which required my full and direct attention, intervention and personal management. Critical Care Time (minutes): 15 Comment: The patient has remained hemodynamically stable while on Lasix 10 milligrams/hour.? Due to lack of access, the patient's TPN is on hold, the patient will need a PICC line or midline. My overall calculation of his I's and O's since admission is positive 9 L which prompted me to put him on a Lasix drip and since then has diuresed about 3-1/2 L. he also received several doses of albumin. His H&H remains stable >8/25 respectively. Renal function intact.? He has significant edema and weeping of the left upper extremity which is wrapped. ?Will be important to continue to support his nutrition, electrolytes and to monitor his renal function. At this time, the patient will be transferred to the next level of care, case discussed with Dr. Cummins. Case also discussed with Dr. Arcos who agrees. Total Critical Care time 15 min.
[2024-03-25] MEDS: Ammonium Lactate 12 % Lotion 226 GM BOTTLE 1 APPL TOPICAL (09:00)
[2024-03-25] MEDS: 0.9 % Sodium Chloride Flush 3 ML SYRINGE IVFLUSH (09:00)
[2024-03-25] MEDS: Thiamine HCL 100 MG in 0.9 % Sodium Chloride 100 ML 202 MG IV (09:05)
--- NOTE | 2024-03-25 09:25 | PC.NURSE ---
Pt is on IV Lasix gtt at 10mg/hr. Pt has a rojas in place, patent and draining clear yellow urine. Per Dr. Pratt, will leave the rojas in place for accurate I&O. Report given to the receiving RN receiving. Cordis and [place] removed with no complications. Pt will go to the floor with a rojas.
[2024-03-25] MEDS: Furosemide 200 MG in 0.9 % Sodium Chloride 80 ML IVCONT (10:51)
--- NOTE | 2024-03-25 11:04 | MHC.CLN ---
F/U PT TRANSFERRED TO MEDICAL FLOOR PT IS MODERATELY MALNOURISHED SEE FULL CLINICAL NUTRITION ASSESSMENT DATED 03/22/24 PT RECEIVED PPN OVER WEEKEND BUT LOST IV ACCESS AT 2AM 03/25/24 PPN CURRENTLY ON HOLD PT AWAITING MIDLINE OR PICC TODAY DISCUSSED WITH MD AND WILL ORDER PPN DISCUSSED WITH PHARMACY RECOMMEND CONTINUING PPN AT MAX GOAL RATE 100ML/HR WITH 67G LIPIDS PROVIDES 1894 TOTAL KCALS (23KCALS/KG), 240G DEXTROSE, 102G PROTEIN (1.2G/KG) REPLETE LYTES NEEDED, MONITOR K+, MG, PHOS FOR REFEEDING
[2024-03-25] MEDS: Chlorhexidine Gluc Oral Rinse 15 ML MOUTHWASH BUCCAL (14:37)
--- NOTE | 2024-03-25 16:40 | HO.PM.IMPN ---
Subjective Subjective Date of Service: 03/30/24 Interval History: f/u gi bleeding, s/p icu care for encephalopathy, needing mechanical ventilation transfer out of icu this morning and seems better Physical Exam Vital Signs: Vital Signs: Last Vital Signs Temp 97.6 F 03/25/24 16:00 Pulse 61 03/25/24 16:00 Resp 20 03/25/24 16:00 BP 109/56 L 03/25/24 16:00 Pulse Ox 98 03/25/24 16:00 O2 Del Method Room Air 03/25/24 16:00 O2 Flow Rate 1 03/25/24 07:00 FiO2 21 03/24/24 10:00 Oxygen Flow Rate 1 03/25/24 12:00 BMI result Body Mass Index 37.0 Const: Other: General: AO X 3, no acute distress Resp: CTA bilateral CVS: S1,S2,RRR, 3+ edema GI: +BS, NT, no distention Skin: No rash Neuro: motor grossly intact Psych: appropriate affect Objective Data Active Medications Acetaminophen (Acetaminophen 325 Mg Tablet) 650 mg PO Q6H PRN PRN Reason: Pain, Mild (Pain Scale 1-3) Acetaminophen (Acetaminophen Supp 650 Mg Supp.Rect) 650 mg MI Q6H PRN PRN Reason: Pain, Mild (Pain Scale 1-3) Chlorhexidine Gluconate (Chlorhexidine Gluc Oral Rinse 15 Ml Mouthwash) 15 ml BUCCAL TID [facility] Last Admin: 03/25/24 14:37 Dose: 15 ml Documented By: DANICA Fluoxetine HCl (Fluoxetine Hcl 20 Mg Capsule) 60 mg PO DAILY [facility] Last Admin: 03/25/24 09:01 Dose: Not Given Documented By: LY Non-Admin Reason: NPO Guaifenesin (Guaifenesin La 600 Mg Tab.Er.12h) 600 mg PO Q12H [facility] Last Admin: 03/25/24 10:24 Dose: Not Given Documented By: DANICA Non-Admin Reason: NPO Thiamine HCl 100 mg/ Sodium (Chloride) 101 mls @ 202 mls/hr IV DAILY [facility] Last Infusion: 03/25/24 09:35 Dose: Infused Documented By: ASHLIE Propofol (Diprivan) 1,000 mg in 100 mls @ 0 mls/hr IVCONT .Q0M [facility]; Protocol Last Titration: 03/24/24 11:59 Dose: Infused Documented By: MADI Ceftriaxone Sodium 2 gm/ (Sodium Chloride) 50 mls @ 100 mls/hr IV Q24H [facility] Last Infusion: 03/24/24 18:18 Dose: Infused Documented By: MADI Octreotide Acetate 500 mcg/ (Sodium Chloride) 501 mls @ 50.1 mls/hr IVCONT .Q10H [facility] Last Admin: 03/25/24 16:29 Dose: 50 mcg/hr, 50.1 mls/hr Documented By: KESHAWN Nutrition (Parenteral) (Parenteral Nutrition) 2,400 mls @ 100 mls/hr IV .Q24H [facility]; Protocol Stop: 03/25/24 20:59 Last Infusion: 03/25/24 02:11 Dose: 0 mls/hr Documented By: CHOCO Furosemide 200 mg/ Sodium (Chloride) 100 mls @ 2.5 mls/hr IVCONT .Q24H [facility] Last Admin: 03/25/24 10:51 Dose: 10 mg/hr, 5 mls/hr Documented By: DANICA Nutrition (Parenteral) (Parenteral Nutrition) 2,400 mls @ 100 mls/hr IV .Q24H [facility]; Protocol Stop: 03/26/24 20:59 Lactic Acid (Ammonium Lactate 12 % Lotion 226 Gm Bottle) 1 appl TOPICAL BID [facility]; Protocol Last Admin: 03/25/24 09:00 Dose: 1 appl Documented By: SORAYAYTOWJavad Lactulose (Lactulose 20 Gm/30 Ml Solution) 20 gm PO BID PRN PRN Reason: Constipation Melatonin (Melatonin 3 Mg Tablet) 9 mg PO BEDTIME [facility] Last Admin: 03/24/24 20:10 Dose: Not Given Documented By: CHOCO Non-Admin Reason: NPO Mirtazapine (Mirtazapine 15 Mg Tablet) 15 mg PO BEDTIME [facility] Last Admin: 03/24/24 20:22 Dose: Not Given Documented By: CHOCO Non-Admin Reason: NPO Ondansetron HCl (Ondansetron Hcl 4 Mg/2 Ml Vial) 4 mg IVPUSH Q8H PRN PRN Reason: Nausea and Vomiting Pharmacy Consult (Consult Rx Etoh Phenob Im/Po) 1 each MISCELLANE ONCE PRN; Protocol PRN Reason: Consult order Pharmacy Consult (Consult Rx Parenteral Nutrition Ordering) 1 each MISCELLANE DAILY PRN PRN Reason: Consult order Phenobarbital (Phenobarbital 30 Mg Tablet) 30 mg PO DAILY [facility]; Protocol Stop: 03/26/24 09:01 Last Admin: 03/25/24 09:01 Dose: Not Given Documented By: LY Non-Admin Reason: NPO Potassium Chloride (Potassium Chloride Er 20 Meq Tab.Er.Prt) 20 meq PO DAILY [facility] Last Admin: 03/25/24 09:01 Dose: Not Given Documented By: LY Non-Admin Reason: NPO Quetiapine Fumarate (Quetiapine Fumarate 50 Mg Tablet) 50 mg PO BID [facility] Last Admin: 03/25/24 09:01 Dose: Not Given Documented By: LY Non-Admin Reason: NPO Risperidone (Risperidone 2 Mg Tablet) 2 mg PO BEDTIME [facility] Last Admin: 03/24/24 20:23 Dose: Not Given Documented By: CHOCO Non-Admin Reason: NPO Sodium Chloride (0.9 % Sodium Chloride Flush 3 Ml Syringe) 3 ml IVFLUSH QSHIFT [facility] Last Admin: 03/25/24 15:15 Dose: Not Given Documented By: KESHAWN Non-Admin Reason: IV Running Sucralfate (Sucralfate 1 Gm Tablet) 1 gm PO BIDAC [facility] Last Admin: 03/25/24 14:56 Dose: Not Given Documented By: KESHAWN Non-Admin Reason: NPO Topiramate (Topiramate 100 Mg Tablet) 200 mg PO BID [facility] Last Admin: 03/25/24 09:02 Dose: Not Given Documented By: LY Non-Admin Reason: NPO Labs 03/30/24 07:42 03/30/24 07:42 Labs: Laboratory Results - last 24 hr 03/24/24 03/24/24 03/25/24 17:23 21:04 05:10 MCV 94.2 92.7 MCH 30.3 30.4 MCHC 32.2 32.8 RDW 21.1 H 21.1 H Plt Count 99 L 98 L MPV 10.4 10.3 Absolute Nucleated RBC 0.000 0.000 Nucleated RBC % (auto) 0.0 0.0 Anion Gap 12 11 L Estim Creat Clear Calc 108.6 108.0 Estimated GFR > 60 > 60 Random Glucose 123 H 105 Calcium 8.5 D 8.8 Phosphorus 3.1 Magnesium 2.0 Total Bilirubin 5.4 H 5.6 H AST 51 H 41 H ALT 16 13 Alkaline Phosphatase 99 84 Total Protein 6.2 L 6.5 Albumin 3.4 L 4.0 Microbiology Microbiology Results: Microbiology 03/20/24 10:30 Gram Stain - Final Paracentesis Fluid Anaerobic Culture - Final NO GROWTH AFTER 5 DAYS Body Fluid Culture - Final No growth after 2 days 03/20/24 00:16 Blood Culture - Final Blood - Venous No growth after 5 days. 03/20/24 00:12 Blood Culture - Final Blood - Venous No growth after 5 days. Assessment and Plan (1) Acute upper GI bleed: Status: Acute (2) Hepatic encephalopathy: Status: Acute Plan 58-year-old male with PMH of alcohol use disorder with alcoholic liver cirrhosis with prior admissions for hematemesis, mood disorder, gastroesophageal reflux disease, mood disorder, BPH admitted to the hospital 03/20 for the management of hematemesis. He had EGD on 03/21 and noted to have have significant esophagitis and small bleeding visible artery, epinephrine injection was given and a clip was placed. He was intubated and placed on ventilator support to prevent aspiration pneumonia, transferred to medical ICU as he is high-risk for recurrent bleeds. ICU course complicated metabolic encephalopthy.. Upper GI bleed Acute blood loss anemia Secondary to esophagitis and esophageal varices Underwent upper GI endoscopy which showed esophagitis and bleeding vessel which was clipped and epinephrine injection was given around. continue IV pantonix and when eating stop octreotide, has been on it for more than 3 days, stop it If the patient has further GI bleed we will transfer him to [facility] for IR guided embolization -s/p units of RBCs, last transfusion / -s/p units of FFP -Monitor H/H daily, and transfuse for Hgb <7 Acute encephalopathy possibly due to metabolic encephalopathy, ammonia level has been ok, he presently oriented to self, place and year Acute hypoxemic respiratory failure due to aspiration pneumonia, succefully extubated. continue Ceftriaxone, WBC normal, no fever, normal sat on room air Fluid overload was started on IV Lasix drip in ICU for being positive 9 lit Patient has been TPN--but see no contraindication to eat, will check with GI Prophylaxis: SCD, pantoprazole inpatient: acutelyill with liver disease complicated by gi bleed, enccephalopathy, npo Quality Stroke Does the patient have a stroke diagnosis?: No VTE Prior VTE?: No VTE Risk Level:: Medical - moderate - high VTE Device Contraindication: Treatment Not Indicated VTE Drug Contraindication: N/A - Med Ordered
--- NOTE | 2024-03-25 17:06 | PC.NURSE ---
Ok per MD to pause drips while pt goes down for PICC placement
--- NOTE | 2024-03-25 18:24 | HO.PICC ---
PICC Line Insertion NPICC Diagnosis: esophageal varices Indication: TPN Pertinent Labs: Reviewed Technique: Following informed consent including risks, benefits and alternatives and using sterile technique including cap and mask, sterile gown, glove and drape, the right arm was prepped and draped in the usual sterile fashion of full barrier technique with CHG. Following completion of [place] Protocol the skin and soft tissues were anesthetized with 1% Lidocaine plain. Using ultrasound guidance, right brachial vein access was obtained. Over an 0.018 wire through peel-away sheath, a 5FR double lumenPASV PICC line was positioned. Catheter length is 34cm internal length, 0cm external length, for a total trimmed length of 34cm. The procedure was performed in on license of [facility]. Tip verification was performed by Yajaira Pollard with Sherlock 3CG. Tip located in SVC. Ultrasound was used to document vein patency and for needle entry. A formal ultrasound picture and cardiac rhythm strip was recorded. Vascular Shipping Technician has released the line for use and it is currently dressed with a StatLock, Tegaderm, and CHG disc. Verification has been performed for blood return and line patency. Arm Circumference: 27cm Equipment: [employer] SOLO with [id number] Catheter Type: 5FR double lumen PASV PICC Lot #: [id number]
[2024-03-25] MEDS: cefTRIAXone sodium 2 GM in 0.9 % Sodium Chloride 50 ML IV (20:52)
[2024-03-25] MEDS: Parenteral Nutrition 2,400 ML 100 ML IV (21:17)
[2024-03-26] VITALS (8 sets, daily range): BP systolic 118–140; BP diastolic 58–80; PULSE 57–67; RESP 17–20; TEMP 36.5–36.8; O2SAT 96–99
[2024-03-26 07:00] LABS: Alanine Aminotransferase 12 U/L (0-40); Albumin Level 3.5 g/dL (3.5-5.0); Alkaline Phosphatase 83 U/L (39-117); Anion Gap 14 (12-20); Aspartate Amino Transferase 35 U/L (5-37); Blood Urea Nitrogen 13 mg/dL (9-16); Carbon Dioxide 30 mmol/L (22-29); Chloride 102 mmol/L (96-108); Creatinine Clr Calc Pharmacy 104.4; Estimated Glomerular Filt Rate > 60; Glucose Random 116 mg/dL (60-115); Magnesium 1.8 mg/dL (1.6-2.6); Phosphorus 3.6 mg/dL (2.7-4.5); Potassium 3.4 mmol/L (3.3-5.1); Sodium 143 mmol/L (135-145); Total Protein 6.2 g/dL (6.5-8.0)
[2024-03-26] MEDS: Thiamine HCL 100 MG in 0.9 % Sodium Chloride 100 ML 202 MG IV (08:45)
[2024-03-26] MEDS: Ammonium Lactate 12 % Lotion 226 GM BOTTLE 1 APPL TOPICAL (08:59)
--- NOTE | 2024-03-26 10:28 | MHC.CLN ---
F/U PT IS MODERATELY MALNOURISHED SEE FULL CLINICAL NUTRITION ASSESSMENT DATED 03/22/24 PICC PLACED 03/25/24 DISCUSSED WITH PHARMACY RECOMMEND SWITCHING TO TPN AT MAX GOAL RATE 83.33ML/HR WITH 48G LIPIDS PROVIDES 1900 TOTAL KCALS (23KCALS/KG), 300G DEXTROSE, 100G PROTEIN (1.2G/KG) REPLETE LYTES NEEDED
[2024-03-26 10:45] LABS: B Type Natriuretic Peptide 756 pg/mL (<100)
--- NOTE | 2024-03-26 11:18 | HE.PHANOTE ---
Re: TPN Per Sarah okay to change rate to 83 ml/hr.
--- NOTE | 2024-03-26 11:21 | MHC.SL.SWA ---
Speech Pathologist Impression: Risk of Aspiration Due to: Hx of Recent Extubation Dysphasia Diet Status: Continue Regular Solids and Thin Liquids. All aspects of swallow evaluated at bedside deemed to be WFL. Recommend GI consultation d/t reported frequent vomiting. MD contacted. Liquid Consistency and Strategies for Safe Swallow: Liquid Intake Recommendation: Thin Liquid Intake Strategies: Unrestricted Solid Food Consistency: Dietary Recommendations: Regular Additional Modifications to Solid Foods: Oral Medication Intake: Whole with Liquid Please contact the pharmacy regarding appropriate crushable or liquid drug formulations that are available whenever modified delivery is recommended. Compensatory Strategies and Precautions to be Taken for Safe Swallow: Sitting Upright (90 deg) Liquids from Cup Rate of Ingestion Change Supervision While Eating and Drinking for Safe Swallow: Intermittent Supervision Foods to Avoid: Acidic or spicy foods. Swallowing Recommended Treatments: Compens. Strategy Educat. Recommendation for Speech: NA:Typical Evaluation Timeline to reassess: PRN Accounting Clerks Supervisor Clinican/Clinical Fellow: No Supervisory Statement: I have reviewed and agree with the student/clinical fellow's documentation: N/A Speech Language Pathologist: Kevan Olivo M.A., CCC-CINETECHNICIAN
--- NOTE | 2024-03-26 11:42 | MHC.SL.SWA ---
Speech Pathologist Impression: Risk of Aspiration Due to: Hx of Recent Extubation Dysphasia Diet Status: Upgraded to baseline diet of Regular Solids and Thin Liquids. Liquid Consistency and Strategies for Safe Swallow: Liquid Intake Recommendation: Thin Liquid Intake Strategies: Unrestricted Solid Food Consistency: Dietary Recommendations: Regular Oral Medication Intake: Whole with Liquid Please contact the pharmacy regarding appropriate crushable or liquid drug formulations that are available whenever modified delivery is recommended. Compensatory Strategies and Precautions to be Taken for Safe Swallow: Sitting Upright (90 deg) Liquids from Cup Rate of Ingestion Change Supervision While Eating and Drinking for Safe Swallow: Intermittent Supervision Foods to Avoid: Acidic or spicy foods. Swallowing Recommended Treatments: Compens. Strategy Educat. Recommendation for Speech: NA:Typical Evaluation Frequency/Duration: x1-2 follow-ups Timeline to reassess: PRN Polysilicon Preparation Worker Clinican/Clinical Fellow: No Supervisory Statement: I have reviewed and agree with the student/clinical fellow's documentation: N/A Speech Language Pathologist: Kevan Olivo M.A., CCC-COOK SHIP
[2024-03-26] MEDS: Furosemide 20 MG/2 ML VIAL IVPUSH ×2 (12:05→22:04)
--- NOTE | 2024-03-26 16:06 | MHC.RECOVRN ---
Met with pt in 473 after consult placed to Addiction Medicine for alcohol use. Pt had presented to the ED for ?GI bleed, actively vomiting coffee ground emesis, and alcohol use. Upon evaluation, pt admitted to [facility] for GI bleed. Pt had underwent endoscopy and was found to have significant esophagitis and small bleeding artery. Pt was intubated to prevent aspiration pneumonia and was transferred to ICU as he was high risk for recurrent bleeds. Pt eventually extubated and transferred back to [facility] on 03/25. Pt sitting in bed, awake, alert, easily engages in conversation. Pts fiance Catalino at bedside and present for conversation with pts permission. Pt and Ethalee report they drink together and had been in recovery x 2 years with a recurrence 2 weeks ago. Pt reports over the past 2 weeks he has drank 3 days and had 3-4 vodka nips each day. During chart review, pt has had numerous visits to [facility] and has had positive alcohol levels over the past 6 months. Pt reports he is feeling much better and going to stay this time. Pt reports during last admission he did not complete treatment and is adamant about completing treatment during this admission. Discussed alcohol recovery and supports. Pt and Ethalee both very interested in naltrexone and connecting to the [facility]. Pt denies hx MIRTHA. Pt reports during his time in recovery he just stayed away from it and drank non alcohol containing beer. Educated pt regarding MIRTHA and CCC. Pt would like to initiate naltrexone while inpatient if possible with goal of receiving Vivitrol when seen outpatient. Pt provided with written resources as well as t/w contact information if needed. Plan to make appt with [facility] once discharge plan is known. Pt denies other questions or concerns at this time. Discussed with Naida Kahn APRN.
[2024-03-26] MEDS: Sucralfate 1 GM TABLET PO (16:32)
[2024-03-26] MEDS: Chlorhexidine Gluc Oral Rinse 15 ML MOUTHWASH BUCCAL ×2 (16:35→20:20)
--- NOTE | 2024-03-26 18:55 | P.PNIM_ITS ---
Subjective Subjective Date of Service: 03/26/24 Interval History: upper Gi bleed Review of Systems no new bleeding episode sob improving denies any chest pain or abd pain Physical Exam 2 Vital Signs: Vital Signs: Last Vital Signs Temp 99.4 F 03/26/24 17:15 Pulse 75 03/26/24 17:15 Resp 18 03/26/24 17:15 BP 116/72 03/26/24 17:15 Pulse Ox 97 03/26/24 17:15 O2 Del Method Nasal Cannula 03/26/24 17:15 O2 Flow Rate 2 03/26/24 17:15 FiO2 21 03/24/24 10:00 Oxygen Flow Rate 2 03/26/24 11:45 BMI result Body Mass Index 37.0 Appearance: Alert.? Oriented . cvs: rrr, [id number] . res: clear to auscultation ,no rhonchii or wheezing abd: no rebound or guarding ,nt, bs present. ext pulses present , no cyanosis . neuro: axo3 , nonfocal. Objective Data Active Medications Acetaminophen (Acetaminophen 325 Mg Tablet) 650 mg PO Q6H PRN PRN Reason: Pain, Mild (Pain Scale 1-3) Chlorhexidine Gluconate (Chlorhexidine Gluc Oral Rinse 15 Ml Mouthwash) 15 ml BUCCAL TID [facility] Last Admin: 03/26/24 16:35 Dose: 15 ml Documented By: TRI Fluoxetine HCl (Fluoxetine Hcl 20 Mg Capsule) 60 mg PO DAILY [facility] Last Admin: 03/26/24 08:44 Dose: Not Given Documented By: TRI Non-Admin Reason: NPO Furosemide (Furosemide 20 Mg/2 Ml Vial) 20 mg IVPUSH Q12H [facility]; Protocol Last Admin: 03/26/24 12:05 Dose: 20 mg Documented By: TRI Guaifenesin (Guaifenesin La 600 Mg Tab.Er.12h) 600 mg PO Q12H [facility] Last Admin: 03/26/24 08:45 Dose: Not Given Documented By: TRI Non-Admin Reason: NPO Thiamine HCl 100 mg/ Sodium (Chloride) 101 mls @ 202 mls/hr IV DAILY [facility] Last Infusion: 03/26/24 09:24 Dose: Infused Documented By: TRI Ceftriaxone Sodium 2 gm/ (Sodium Chloride) 50 mls @ 100 mls/hr IV Q24H [facility] Last Infusion: 03/25/24 22:31 Dose: Infused Documented By: RADHA Nutrition (Parenteral) (Parenteral Nutrition) 2,400 mls @ 100 mls/hr IV .Q24H [facility]; Protocol Stop: 03/26/24 20:59 Last Admin: 03/25/24 21:17 Dose: 100 mls/hr Documented By: RADHA Nutrition (Parenteral) (Parenteral Nutrition) 2,040 mls @ 83 mls/hr IV .Q24H [facility]; Protocol Stop: 03/27/24 21:33 Lactic Acid (Ammonium Lactate 12 % Lotion 226 Gm Bottle) 1 appl TOPICAL BID [facility]; Protocol Last Admin: 03/26/24 08:59 Dose: 1 appl Documented By: TRI Lactulose (Lactulose 20 Gm/30 Ml Solution) 20 gm PO BID PRN PRN Reason: Constipation Melatonin (Melatonin 3 Mg Tablet) 9 mg PO BEDTIME [facility] Last Admin: 03/25/24 21:34 Dose: Not Given Documented By: RADHA Non-Admin Reason: NPO Mirtazapine (Mirtazapine 15 Mg Tablet) 15 mg PO BEDTIME [facility] Last Admin: 03/25/24 21:35 Dose: Not Given Documented By: RADHA Non-Admin Reason: NPO Ondansetron HCl (Ondansetron Hcl 4 Mg/2 Ml Vial) 4 mg IVPUSH Q8H PRN PRN Reason: Nausea and Vomiting Pharmacy Consult (Consult Rx Etoh Phenob Im/Po) 1 each MISCELLANE ONCE PRN; Protocol PRN Reason: Consult order Pharmacy Consult (Consult Rx Parenteral Nutrition Ordering) 1 each MISCELLANE DAILY PRN PRN Reason: Consult order Potassium Chloride (Potassium Chloride Er 20 Meq Tab.Er.Prt) 20 meq PO DAILY [facility] Last Admin: 03/25/24 09:01 Dose: Not Given Documented By: LY Non-Admin Reason: NPO Quetiapine Fumarate (Quetiapine Fumarate 50 Mg Tablet) 50 mg PO BID [facility] Last Admin: 03/26/24 08:44 Dose: Not Given Documented By: TRI Non-Admin Reason: NPO Risperidone (Risperidone 2 Mg Tablet) 2 mg PO BEDTIME [facility] Last Admin: 03/25/24 21:35 Dose: Not Given Documented By: RADHA Non-Admin Reason: NPO Sodium Chloride (0.9 % Sodium Chloride Flush 3 Ml Syringe) 3 ml IVFLUSH QSHIFT [facility] Last Admin: 03/26/24 16:31 Dose: Not Given Documented By: TRI Non-Admin Reason: IV Running Sucralfate (Sucralfate 1 Gm Tablet) 1 gm PO BIDAC [facility] Last Admin: 03/26/24 16:32 Dose: 1 gm Documented By: TRI Topiramate (Topiramate 100 Mg Tablet) 200 mg PO BID [facility] Last Admin: 03/26/24 08:44 Dose: Not Given Documented By: TRI Non-Admin Reason: NPO Labs 03/25/24 05:10 03/26/24 06:00 Labs: Laboratory Results - last 24 hr 03/26/24 03/26/24 06:00 09:46 Anion Gap 14 Estim Creat Clear Calc 104.4 Estimated GFR > 60 Random Glucose 116 H Calcium 9.0 Phosphorus 3.6 Magnesium 1.8 Total Bilirubin 5.0 H AST 35 ALT 12 Alkaline Phosphatase 83 B-Natriuretic Peptide 756 H Total Protein 6.2 L Albumin 3.5 Assessment and Plan (1) Alcoholic cirrhosis: Status: Acute (2) GI bleed: Status: Acute Plan 58-year-old male with PMH of alcohol use disorder with alcoholic liver cirrhosis with prior admissions for hematemesis, mood disorder, gastroesophageal reflux disease, mood disorder, BPH admitted to the hospital 03/20 for the management of hematemesis. He had EGD on 03/21 and noted to have have significant esophagitis and small bleeding visible artery, epinephrine injection was given and a clip was placed. He was intubated and placed on ventilator support to prevent aspiration pneumonia, transferred to medical ICU as he is high-risk for recurrent bleeds. ICU course complicated metabolic encephalopthy.. Upper GI bleed Acute blood loss anemia Secondary to esophagitis and esophageal varices Underwent upper GI endoscopy which showed esophagitis and bleeding vessel which was clipped and epinephrine injection was given around. continue IV pantonix and when eating stop octreotide, has been on it for more than 3 days, stop it If the patient has further GI bleed we will transfer him to [facility] center for IR guided embolization -s/p units of RBCs, last transfusion 6/ -s/p units of FFP -Monitor H/H daily, and transfuse for Hgb <7 Acute encephalopathy possibly due to metabolic encephalopathy, ammonia level has been ok, he presently oriented to self, place and year Acute hypoxemic respiratory failure due to aspiration pneumonia, succefully extubated. continue Ceftriaxone, WBC normal, no fever, normal sat on room air has Liver disease -alcoholic liver cirrhosis with Fluid overload Patient is 10 L negative since starting Lasix drip. On IV Lasix drip switched to lows or low-dose IV Lasix Patient has been TPN--but see no contraindication to eat, will check with GI Prophylaxis: SCD, pantoprazole ongoing hospitalization need: Liver cirrhosis fluid overload, anemia due to GI bleed: Need IV Lasix, H&H monitoring and encouraged for p.o. intake, on a monitor renal function electrolytes. Quality Stroke Does the patient have a stroke diagnosis?: No VTE Prior VTE?: No VTE Risk Level:: Medical - moderate - high VTE Device Contraindication: Treatment Not Indicated VTE Drug Contraindication: N/A - Med Ordered
[2024-03-26] MEDS: 0.9 % Sodium Chloride Flush 3 ML SYRINGE IVFLUSH (19:37)
[2024-03-26] MEDS: cefTRIAXone sodium 2 GM in 0.9 % Sodium Chloride 50 ML IV (19:37)
[2024-03-26] MEDS: QUEtiapine Fumarate 50 MG TABLET PO (20:21)
[2024-03-26] MEDS: Melatonin 3 MG TABLET 9 MG PO (20:21)
[2024-03-26] MEDS: Mirtazapine 15 MG TABLET PO (20:21)
[2024-03-26] MEDS: Topiramate 100 MG TABLET 200 MG PO (20:22)
[2024-03-26] MEDS: risperiDONE 2 MG TABLET PO (20:22)
[2024-03-26] MEDS: guaiFENesin LA 600 MG TAB.ER.12H PO (20:24)
[2024-03-26] MEDS: Parenteral Nutrition 2,040 ML 83 ML IV (22:05)
[2024-03-27] VITALS (7 sets, daily range): BP systolic 112–134; BP diastolic 56–62; PULSE 59–69; RESP 16–20; TEMP 36.2–37.1; O2SAT 93–99; BMI 32.5
[2024-03-27 07:11] LABS: Alanine Aminotransferase 12 U/L (0-40); Albumin Level 3.2 g/dL (3.5-5.0); Alkaline Phosphatase 77 U/L (39-117); Anion Gap 8 (12-20); Aspartate Amino Transferase 30 U/L (5-37); Bilirubin Total 4.6 mg/dL (0.0-1.0); Blood Urea Nitrogen 22 mg/dL (9-16); Calcium 8.9 mg/dL (8.4-10.2); Carbon Dioxide 37 mmol/L (22-29); Chloride 95 mmol/L (96-108); Creatinine Clr Calc Pharmacy 88.8; Estimated Glomerular Filt Rate > 60; Glucose Random 124 mg/dL (60-115); Magnesium 1.9 mg/dL (1.6-2.6); Phosphorus 3.7 mg/dL (2.7-4.5); Potassium 3.9 mmol/L (3.3-5.1); Sodium 136 mmol/L (135-145); Total Protein 6.1 g/dL (6.5-8.0)
[2024-03-27] MEDS: QUEtiapine Fumarate 50 MG TABLET PO ×2 (08:41→21:28)
[2024-03-27] MEDS: FLUoxetine HCl 20 MG CAPSULE 60 MG PO (08:41)
[2024-03-27] MEDS: Sucralfate 1 GM TABLET PO ×2 (08:41→16:00)
[2024-03-27] MEDS: Topiramate 100 MG TABLET 200 MG PO ×2 (08:41→21:28)
[2024-03-27] MEDS: 0.9 % Sodium Chloride Flush 3 ML SYRINGE IVFLUSH ×2 (08:42→14:57)
[2024-03-27] MEDS: Furosemide 20 MG/2 ML VIAL IVPUSH (08:47)
[2024-03-27] MEDS: Thiamine HCL 100 MG in 0.9 % Sodium Chloride 100 ML 202 MG IV (08:53)
[2024-03-27] MEDS: guaiFENesin LA 600 MG TAB.ER.12H PO (10:12)
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
--- NOTE | 2024-03-27 13:04 | MHC.SL.SWA ---
Risk of Aspiration Due to: Hx of Recent Extubation Dysphasia Diet Status: No change Liquid Consistency and Strategies for Safe Swallow: Liquid Intake Recommendation: Thin Liquid Intake Strategies: Unrestricted Solid Food Consistency: Dietary Recommendations: Regular Oral Medication Intake: Whole with Liquid Please contact the pharmacy regarding appropriate crushable or liquid drug formulations that are available whenever modified delivery is recommended. Compensatory Strategies and Precautions to be Taken for Safe Swallow: Sitting Upright (90 deg) Rate of Ingestion Change Supervision While Eating and Drinking for Safe Swallow: Intermittent Supervision Foods to Avoid: Acidic or spicy foods. Swallowing Recommended Treatments: Compens. Strategy Educat. Recommendation for Speech: Comment: Recommend patient continue with REGULAR solids and THIN liquids. Pills whole w/ liquid. SUPPLY TECHNICIAN to f/u 1x. Estimator Project Manager Clinican/Clinical Fellow: No Supervisory Statement: I have reviewed and agree with the student/clinical fellow's documentation: N/A Speech Language Pathologist: Carola Muñiz M.A., CCC-SUPPLY TECHNICIAN
--- NOTE | 2024-03-27 14:39 | HO.PM.IMPN ---
Subjective Subjective Date of Service: 03/27/24 Interval History: upper Gi bleed Review of Systems SOB improving po intake is low ,on ppn no new bleeding Physical Exam Vital Signs: Vital Signs: Last Vital Signs Temp 97.4 F 03/27/24 12:00 Pulse 59 03/27/24 12:00 Resp 20 03/27/24 12:00 BP 128/59 L 03/27/24 12:00 Pulse Ox 97 03/27/24 12:00 O2 Del Method Nasal Cannula 03/27/24 12:00 O2 Flow Rate 2 03/27/24 12:00 FiO2 21 03/24/24 10:00 Oxygen Flow Rate 2 03/27/24 12:00 BMI result Body Mass Index 32.5 Appearance: Alert.? Oriented . cvs: [id number], [id number] . res: clear to auscultation ,no rhonchii or wheezing abd: no rebound or guarding ,nt, bs present. ext pulses present , no cyanosis . neuro: axo3 , nonfocal. Objective Data Active Medications Acetaminophen (Acetaminophen 325 Mg Tablet) 650 mg PO Q6H PRN PRN Reason: Pain, Mild (Pain Scale 1-3) Chlorhexidine Gluconate (Chlorhexidine Gluc Oral Rinse 15 Ml Mouthwash) 15 ml BUCCAL TID [facility] Last Admin: 03/27/24 08:46 Dose: Not Given Documented By: CASEY Non-Admin Reason: Patient Refused Fluoxetine HCl (Fluoxetine Hcl 20 Mg Capsule) 60 mg PO DAILY [facility] Last Admin: 03/27/24 08:41 Dose: 60 mg Documented By: CASEY Furosemide (Furosemide 20 Mg/2 Ml Vial) 20 mg IVPUSH DAILY [facility]; Protocol Last Admin: 03/27/24 08:47 Dose: 20 mg Documented By: CASEY Guaifenesin (Guaifenesin La 600 Mg Tab.Er.12h) 600 mg PO Q12H [facility] Last Admin: 03/27/24 10:12 Dose: 600 mg Documented By: CASEY Thiamine HCl 100 mg/ Sodium (Chloride) 101 mls @ 202 mls/hr IV DAILY [facility] Last Infusion: 03/27/24 09:30 Dose: Infused Documented By: CASEY Ceftriaxone Sodium 2 gm/ (Sodium Chloride) 50 mls @ 100 mls/hr IV Q24H [facility] Last Infusion: 03/26/24 20:13 Dose: Infused Documented By: JOSE MANUEL Nutrition (Parenteral) (Parenteral Nutrition) 1,992 mls @ 83 mls/hr IV .Q24H [facility]; Protocol Stop: 03/28/24 20:59 Lactic Acid (Ammonium Lactate 12 % Lotion 226 Gm Bottle) 1 appl TOPICAL BID [facility]; Protocol Last Admin: 03/27/24 08:58 Dose: Not Given Documented By: CASEY Non-Admin Reason: Patient Refused Lactulose (Lactulose 20 Gm/30 Ml Solution) 20 gm PO BID [facility] Last Admin: 03/27/24 08:46 Dose: Not Given Documented By: CASEY Non-Admin Reason: Patient Refused Melatonin (Melatonin 3 Mg Tablet) 9 mg PO BEDTIME [facility] Last Admin: 03/26/24 20:21 Dose: 9 mg Documented By: JOSE MANUEL Mirtazapine (Mirtazapine 15 Mg Tablet) 15 mg PO BEDTIME [facility] Last Admin: 03/26/24 20:21 Dose: 15 mg Documented By: JOSE MANUEL Ondansetron HCl (Ondansetron Hcl 4 Mg/2 Ml Vial) 4 mg IVPUSH Q8H PRN PRN Reason: Nausea and Vomiting Pharmacy Consult (Consult Rx Etoh Phenob Im/Po) 1 each MISCELLANE ONCE PRN; Protocol PRN Reason: Consult order Pharmacy Consult (Consult Rx Parenteral Nutrition Ordering) 1 each MISCELLANE DAILY PRN PRN Reason: Consult order Potassium Chloride (Potassium Chloride Er 20 Meq Tab.Er.Prt) 20 meq PO DAILY [facility] Last Admin: 03/25/24 09:01 Dose: Not Given Documented By: ELIZABETHOWL Non-Admin Reason: NPO Quetiapine Fumarate (Quetiapine Fumarate 50 Mg Tablet) 50 mg PO BID [facility] Last Admin: 03/27/24 08:41 Dose: 50 mg Documented By: CASEY Risperidone (Risperidone 2 Mg Tablet) 2 mg PO BEDTIME [facility] Last Admin: 03/26/24 20:22 Dose: 2 mg Documented By: JOSE MANUEL Sodium Chloride (0.9 % Sodium Chloride Flush 3 Ml Syringe) 3 ml IVFLUSH QSHIFT [facility] Last Admin: 03/27/24 08:42 Dose: 3 ml Documented By: CASEY Sucralfate (Sucralfate 1 Gm Tablet) 1 gm PO BIDAC [facility] Last Admin: 03/27/24 08:41 Dose: 1 gm Documented By: CASEY Topiramate (Topiramate 100 Mg Tablet) 200 mg PO BID [facility] Last Admin: 03/27/24 08:41 Dose: 200 mg Documented By: CASEY Labs 03/25/24 05:10 03/27/24 06:19 Labs: Laboratory Results - last 24 hr 03/27/24 06:19 Hold Purple Top SEE NOTE Anion Gap 8 L Estim Creat Clear Calc 88.8 Estimated GFR > 60 Random Glucose 124 H Calcium 8.9 Phosphorus 3.7 Magnesium 1.9 Total Bilirubin 4.6 H AST 30 ALT 12 Alkaline Phosphatase 77 Total Protein 6.1 L Albumin 3.2 L Assessment and Plan (1) Alcoholic cirrhosis: Status: Acute (2) GI bleed: Status: Acute Plan 58-year-old male with PMH of alcohol use disorder with alcoholic liver cirrhosis with prior admissions for hematemesis, mood disorder, gastroesophageal reflux disease, mood disorder, BPH admitted to the hospital 03/20 for the management of hematemesis. He had EGD on 03/21 and noted to have have significant esophagitis and small bleeding visible artery, epinephrine injection was given and a clip was placed. He was intubated and placed on ventilator support to prevent aspiration pneumonia, transferred to medical ICU as he is high-risk for recurrent bleeds. ICU course complicated metabolic encephalopthy.. Upper GI bleed Acute blood loss anemia Secondary to esophagitis and esophageal varices Underwent upper GI endoscopy which showed esophagitis and bleeding vessel which was clipped and epinephrine injection was given around. s/p units of RBCs, last transfusion , units of FFP ,iv ppi,octreotide. Monitor H/H -seems maintained around 8.3 switch to oral ppi,sucralfate. Acute encephalopathy possibly due to metabolic encephalopathy, ammonia level has been ok, mental status improving on lactulose ,goal bm 2-3 range Acute hypoxemic respiratory failure due to aspiration pneumonia, succefully extubated. continue Ceftriaxone, WBC normal, no fever, normal sat on room air has Liver disease -alcoholic liver cirrhosis with Fluid overload Patient is 10 L negative since starting Lasix drip. On IV Lasix drip switched to lows or low-dose IV Lasix Patient has been TPN--but see no contraindication to eat, will check with GI Prophylaxis: SCD, pantoprazole ongoing hospitalization need: Liver cirrhosis with fluid overload, anemia due to GI bleed: Need IV Lasix, H&H monitoring and encouraged for p.o. intake, on a monitor renal function electrolytes, no taking enough po ,moniter po inatke on ppn for 24 hours -to decide for dispo. Quality Stroke Does the patient have a stroke diagnosis?: No VTE Prior VTE?: No VTE Risk Level:: Medical - moderate - high VTE Device Contraindication: Treatment Not Indicated VTE Drug Contraindication: N/A - Med Ordered
[2024-03-27] MEDS: Albumin Human 25 % 100 ML IV ×2 (14:57→21:30)
[2024-03-27] MEDS: Lactulose 20 GM/30 ML SOLUTION PO ×2 (16:00→21:35)
[2024-03-27] MEDS: Omeprazole 20 MG CAPSULE.DR PO (16:00)
[2024-03-27] MEDS: cefTRIAXone sodium 2 GM in 0.9 % Sodium Chloride 50 ML IV (18:26)
[2024-03-27] MEDS: risperiDONE 2 MG TABLET PO (21:28)
[2024-03-27] MEDS: Mirtazapine 15 MG TABLET PO (21:28)
[2024-03-27] MEDS: Melatonin 3 MG TABLET 9 MG PO (21:29)
[2024-03-27] MEDS: Chlorhexidine Gluc Oral Rinse 15 ML MOUTHWASH BUCCAL (21:35)
[2024-03-27] MEDS: Ammonium Lactate 12 % Lotion 226 GM BOTTLE 1 APPL TOPICAL (22:05)
[2024-03-28] VITALS (15 sets, daily range): BP systolic 113–168; BP diastolic 56–74; PULSE 62–75; RESP 16–20; TEMP 36.1–36.9; O2SAT 93–99; BMI 34.2
[2024-03-28] MEDS: Albumin Human 25 % 100 ML IV ×2 (03:05→09:48)
[2024-03-28] MEDS: Omeprazole 20 MG CAPSULE.DR PO ×2 (05:33→16:40)
[2024-03-28 08:12] LABS: Alanine Aminotransferase 11 U/L (0-40); Albumin Level 3.9 g/dL (3.5-5.0); Alkaline Phosphatase 93 U/L (39-117); Anion Gap 14 (12-20); Aspartate Amino Transferase 30 U/L (5-37); Bilirubin Total 4.7 mg/dL (0.0-1.0); Blood Urea Nitrogen 24 mg/dL (9-16); Carbon Dioxide 32 mmol/L (22-29); Chloride 96 mmol/L (96-108); Creatinine Clr Calc Pharmacy 94.1; Estimated Glomerular Filt Rate > 60; Glucose Random 133 mg/dL (60-115); Magnesium 2.1 mg/dL (1.6-2.6); Potassium 3.5 mmol/L (3.3-5.1); Sodium 138 mmol/L (135-145); Total Protein 6.8 g/dL (6.5-8.0)
[2024-03-28] MEDS: guaiFENesin LA 600 MG TAB.ER.12H PO ×3 (09:46→22:10)
[2024-03-28] MEDS: Lactulose 20 GM/30 ML SOLUTION PO ×3 (09:46→20:59)
[2024-03-28] MEDS: Topiramate 100 MG TABLET 200 MG PO ×2 (09:46→21:00)
[2024-03-28] MEDS: QUEtiapine Fumarate 50 MG TABLET PO ×2 (09:46→20:59)
[2024-03-28] MEDS: Sucralfate 1 GM TABLET PO ×2 (09:46→16:40)
[2024-03-28] MEDS: Chlorhexidine Gluc Oral Rinse 15 ML MOUTHWASH BUCCAL ×3 (09:46→20:59)
[2024-03-28] MEDS: FLUoxetine HCl 20 MG CAPSULE 60 MG PO (09:46)
[2024-03-28] MEDS: Thiamine HCL 100 MG in 0.9 % Sodium Chloride 100 ML 202 MG IV (09:47)
[2024-03-28] MEDS: 0.9 % Sodium Chloride Flush 3 ML SYRINGE IVFLUSH ×2 (09:48)
--- NOTE | 2024-03-28 09:49 | MHC.CLN ---
F/U PT IS MODERATELY MALNOURISHED DIET RX: REGULAR PER SCHOOL GUARD PO INTAKE 100%, 50%, 0, AND 50% SNACK DISCUSSED WITH MD AND PLAN TO D/C TPN TODAY MONITOR PO INTAKE CLOSELY
[2024-03-28 10:20] LABS: Hematocrit 21.8 % (42.0-52.0); Hemoglobin 7.1 g/dl (14.0-18.0)
--- NOTE | 2024-03-28 13:19 | P.PNIM_ITS ---
Subjective Subjective Date of Service: 03/28/24 Interval History: gi bleed dec po intake Review of Systems po intake is still low Denies any chest pain or shortness of breath abdominal pain. Physical Exam 2 Vital Signs: Vital Signs: Last Vital Signs Temp 97.5 F 03/28/24 11:46 Pulse 65 03/28/24 11:46 Resp 18 03/28/24 11:46 BP 140/65 H 03/28/24 11:46 Pulse Ox 99 03/28/24 11:46 O2 Del Method Nasal Cannula 03/28/24 11:46 O2 Flow Rate 2 03/28/24 11:46 FiO2 21 03/24/24 10:00 Oxygen Flow Rate 2 03/27/24 12:00 BMI result Body Mass Index 34.2 Appearance: Alert.? Oriented . cvs: rrr, [id number] . res: clear to auscultation ,no rhonchii or wheezing abd: no rebound or guarding ,nt, bs present. ext pulses present , no cyanosis . neuro: axo3 , nonfocal. Objective Data Active Medications Acetaminophen (Acetaminophen 325 Mg Tablet) 650 mg PO Q6H PRN PRN Reason: Pain, Mild (Pain Scale 1-3) Chlorhexidine Gluconate (Chlorhexidine Gluc Oral Rinse 15 Ml Mouthwash) 15 ml BUCCAL TID [facility] Last Admin: 03/28/24 09:46 Dose: 15 ml Documented By: ROLAN Docusate Sodium (Docusate Sodium 100 Mg/10 Ml Liquid) 100 mg PO BID [facility] Last Admin: 03/28/24 11:43 Dose: Not Given Documented By: ROLAN Non-Admin Reason: Patient Refused Fluoxetine HCl (Fluoxetine Hcl 20 Mg Capsule) 60 mg PO DAILY [facility] Last Admin: 03/28/24 09:46 Dose: 60 mg Documented By: ROLAN Guaifenesin (Guaifenesin La 600 Mg Tab.Er.12h) 600 mg PO Q12H [facility] Last Admin: 03/28/24 09:46 Dose: 600 mg Documented By: ROLAN Thiamine HCl 100 mg/ Sodium (Chloride) 101 mls @ 202 mls/hr IV DAILY [facility] Last Infusion: 03/28/24 10:53 Dose: Infused Documented By: ROLAN Ceftriaxone Sodium 2 gm/ (Sodium Chloride) 50 mls @ 100 mls/hr IV Q24H [facility] Last Infusion: 03/28/24 09:48 Dose: Infused Documented By: ROLAN Nutrition (Parenteral) (Parenteral Nutrition) 1,992 mls @ 83 mls/hr IV .Q24H [facility]; Protocol Stop: 03/28/24 20:59 Last Admin: 03/27/24 22:06 Dose: 83 mls/hr Documented By: SOPHY Lactic Acid (Ammonium Lactate 12 % Lotion 226 Gm Bottle) 1 appl TOPICAL BID [facility]; Protocol Last Admin: 03/28/24 09:50 Dose: Not Given Documented By: ROLAN Non-Admin Reason: Patient Refused Lactulose (Lactulose 20 Gm/30 Ml Solution) 20 gm PO TID [facility] Last Admin: 03/28/24 09:46 Dose: 20 gm Documented By: ROLAN Melatonin (Melatonin 3 Mg Tablet) 9 mg PO BEDTIME [facility] Last Admin: 03/27/24 21:29 Dose: 9 mg Documented By: SOPHY Mirtazapine (Mirtazapine 15 Mg Tablet) 15 mg PO BEDTIME [facility] Last Admin: 03/27/24 21:28 Dose: 15 mg Documented By: SOPHY Omeprazole (Omeprazole 20 Mg Capsule.Dr) 20 mg PO BID@0630,1630 [facility] Last Admin: 03/28/24 05:33 Dose: 20 mg Documented By: SOPHY Ondansetron HCl (Ondansetron Hcl 4 Mg/2 Ml Vial) 4 mg IVPUSH Q8H PRN PRN Reason: Nausea and Vomiting Pharmacy Consult (Consult Rx Etoh Phenob Im/Po) 1 each MISCELLANE ONCE PRN; Protocol PRN Reason: Consult order Pharmacy Consult (Consult Rx Parenteral Nutrition Ordering) 1 each MISCELLANE DAILY PRN PRN Reason: Consult order Potassium Chloride (Potassium Chloride Er 20 Meq Tab.Er.Prt) 20 meq PO DAILY [facility] Last Admin: 03/25/24 09:01 Dose: Not Given Documented By: LY Non-Admin Reason: NPO Quetiapine Fumarate (Quetiapine Fumarate 50 Mg Tablet) 50 mg PO BID [facility] Last Admin: 03/28/24 09:46 Dose: 50 mg Documented By: ROLAN Risperidone (Risperidone 2 Mg Tablet) 2 mg PO BEDTIME [facility] Last Admin: 03/27/24 21:28 Dose: 2 mg Documented By: SOPHY Sodium Chloride (0.9 % Sodium Chloride Flush 3 Ml Syringe) 3 ml IVFLUSH QSHIFT [facility] Last Admin: 03/28/24 09:48 Dose: 3 ml Documented By: ROLAN Sucralfate (Sucralfate 1 Gm Tablet) 1 gm PO BIDAC [facility] Last Admin: 03/28/24 09:46 Dose: 1 gm Documented By: ROLAN Topiramate (Topiramate 100 Mg Tablet) 200 mg PO BID [facility] Last Admin: 03/28/24 09:46 Dose: 200 mg Documented By: ROLAN Labs 03/28/24 07:43 03/28/24 07:34 Labs: Laboratory Results - last 24 hr 03/28/24 03/28/24 07:34 07:43 Hold Purple Top SEE NOTE Anion Gap 14 Estim Creat Clear Calc 94.1 Estimated GFR > 60 Random Glucose 133 H Calcium 9.0 Phosphorus 3.0 Magnesium 2.1 Total Bilirubin 4.7 H AST 30 ALT 11 Alkaline Phosphatase 93 Total Protein 6.8 Albumin 3.9 Assessment and Plan (1) Alcoholic cirrhosis: Status: Acute (2) GI bleed: Status: Acute Plan 58-year-old male with PMH of alcohol use disorder with alcoholic liver cirrhosis with prior admissions for hematemesis, mood disorder, gastroesophageal reflux disease, mood disorder, BPH admitted to the hospital 03/20 for the management of hematemesis. He had EGD on 03/21 and noted to have have significant esophagitis and small bleeding visible artery, epinephrine injection was given and a clip was placed. He was intubated and placed on ventilator support to prevent aspiration pneumonia, transferred to medical ICU as he is high-risk for recurrent bleeds. ICU course complicated metabolic encephalopthy.. Upper GI bleed Acute blood loss anemia Secondary to esophagitis and esophageal varices Underwent upper GI endoscopy which showed esophagitis and bleeding vessel which was clipped and epinephrine injection was given around. s/p units of RBCs, last transfusion , units of FFP ,iv ppi,octreotide. Monitor H/H trending down to 7.1 /21.8 added 1 prbc/ffp added ,denies any gross bleeding switch to oral ppi,sucralfate. Gi follow Acute encephalopathy possibly due to metabolic encephalopathy, ammonia level has been ok, mental status improving on lactulose ,goal bm 2-3 range Acute hypoxemic respiratory failure due to aspiration pneumonia, succefully extubated. continue Ceftriaxone, WBC normal, no fever, normal sat on room air has Liver disease -alcoholic liver cirrhosis with Fluid overload Patient is 10 L negative since starting Lasix drip. On IV Lasix drip switched to lows or low-dose IV Lasix Decreased po inatke:: will try off tpn today ,if po inatke improves -we plan dispo. Prophylaxis: SCD, pantoprazole ongoing hospitalization need: Liver cirrhosis with fluid overload, anemia due to GI bleed: Need IV Lasix, H&H monitoring and encouraged for p.o. intake, on a monitor renal function electrolytes, no taking enough po ,moniter po inatke on ppn for 24 hours -to decide for dispo. Quality Stroke Does the patient have a stroke diagnosis?: No VTE Prior VTE?: No VTE Risk Level:: Medical - moderate - high VTE Device Contraindication: Treatment Not Indicated VTE Drug Contraindication: N/A - Med Ordered
--- NOTE | 2024-03-28 13:40 | MHC.SL.SWA ---
Speech Pathologist Impression: Risk of Aspiration Due to: Hx of Recent Extubation Dysphasia Diet Status: Recommend patient continue with REGULAR solids and THIN liquids. Pills whole w/ liquid. Liquid Consistency and Strategies for Safe Swallow: Liquid Intake Recommendation: Thin Liquid Intake Strategies: Unrestricted Solid Food Consistency: Dietary Recommendations: Regular Additional Modifications to Solid Foods: Oral Medication Intake: Whole with Liquid Please contact the pharmacy regarding appropriate crushable or liquid drug formulations that are available whenever modified delivery is recommended. Compensatory Strategies and Precautions to be Taken for Safe Swallow: Sitting Upright (90 deg) Small Bites and Sips Supervision While Eating and Drinking for Safe Swallow: None Needed Foods to Avoid: Acidic or spicy foods. Swallowing Recommended Treatments: Compens. Strategy Educat. Recommendation for Speech: NA:Typical Evaluation Comment: Patient seen during lunch. Patient was seated in chair by bed, independently eating meal for which he had ordered toast, soup and a variety of drinks. Patient reported that he didn't have much of an appetite. Patient was observed eating bites of toast, with adequate and timely mastication, timely swallow, WFL. Patient was observed taking sips of gingerale with all aspects of swallow WFL. Patient reports he is likely to be discharged to [facility] in [place], is ok with it given recent history of repeat hospitalizations. Recommend patient continue on current, least restrictive diet of REGULAR with THIN liquids, pills WHOLE with liquid. Recommend D/C speech at this time, no recommendation for ST service at next level of care, as patient is on least restrictive diet and tolerating well. Frequency/Duration: Date Range for Service Req: Timeline to reassess: PRN Reo Asset Manager Clinican/Clinical Fellow: No Supervisory Statement: I have reviewed and agree with the student/clinical fellow's documentation: N/A Speech Language Pathologist: Lor Orr M.A., CCC-POWER PROJECT MANAGER
--- NOTE | 2024-03-28 16:38 | P.PNGI_ITS ---
Subjective Subjective Date of Service: 03/28/24 Interval History: 58 YM known to the GI service from past admissions, [place] [facility] [place] for the management of hematemesis. 03/21 EGD was performed by Dr White and showed significant esophagitis and small bleeding visible vessel, epinephrine injection was given and a clip was placed. He was intubated and placed on ventilator support to prevent aspiration pneumonia, transferred to medical ICU as he is high-risk for recurrent bleeds. ICU course complicated metabolic encephalopthy.. GI consultd due to slow drift in H & H without overt bleeding. Pt reports decreased appetite is slowly improving. Critical Care Time (minutes): 15 Physical Exam 2 Vital Signs: Vital Signs: Last Vital Signs Temp 97 F 03/28/24 16:27 Pulse 64 03/28/24 16:27 Resp 16 03/28/24 16:27 BP 133/66 03/28/24 16:27 Pulse Ox 97 03/28/24 16:00 O2 Del Method Nasal Cannula 03/28/24 16:00 O2 Flow Rate 2 03/28/24 16:00 FiO2 21 03/24/24 10:00 Oxygen Flow Rate 2 03/28/24 12:00 BMI result Body Mass Index 34.2 Appearance: Alert.? Oriented . cvs: rrr, [id number] . res: clear to auscultation ,no rhonchii or wheezing abd: no rebound or guarding ,nt, bs present. ext pulses present , no cyanosis . neuro: axo3 , nonfocal. Objective Data Labs 04/01/24 07:57 04/02/24 06:48 Labs: Laboratory Results - last 24 hr 03/20/24 03/28/24 03/28/24 00:14 07:34 07:43 Hgb 7.1 L Hct 21.8 L Hold Purple Top SEE NOTE Sodium 138 Potassium 3.5 Chloride 96 Carbon Dioxide 32 H Anion Gap 14 BUN 24 H Creatinine 0.96 Estim Creat Clear Calc 94.1 Estimated GFR > 60 Random Glucose 133 H Calcium 9.0 Phosphorus 3.0 Magnesium 2.1 Total Bilirubin 4.7 H AST 30 ALT 11 Alkaline Phosphatase 93 Total Protein 6.8 Albumin 3.9 Blood Type Antibody Screen Crossmatch See Detail 03/28/24 14:27 Hgb Hct Hold Purple Top Sodium Potassium Chloride Carbon Dioxide Anion Gap BUN Creatinine Estim Creat Clear Calc Estimated GFR Random Glucose Calcium Phosphorus Magnesium Total Bilirubin AST ALT Alkaline Phosphatase Total Protein Albumin Blood Type A Positive Antibody Screen NEGATIVE Crossmatch See Detail Microbiology Microbiology Results: Microbiology 03/20/24 10:30 Paracentesis Fluid Gram Stain - Final 03/20/24 10:30 Paracentesis Fluid Anaerobic Culture - Final NO GROWTH AFTER 5 DAYS 03/20/24 10:30 Paracentesis Fluid Body Fluid Culture - Final No growth after 2 days 03/20/24 00:16 Blood - Venous Blood Culture - Final No growth after 5 days. 03/20/24 00:12 Blood - Venous Blood Culture - Final No growth after 5 days. Procedures Date of Service Date of Service: 08/08/24 Arterial Line Size (Gauge): 14 Progress Note: A&P Assessment and plan (1) Acute upper GI bleed: Status: Resolved (2) Hepatic encephalopathy: Status: Resolved (3) Alcoholic cirrhosis: Status: Inactive Plan 58 YM known to the GI service from past admissions, [place] [facility] [place] for the management of hematemesis. 03/21 EGD was performed by Dr White and showed significant esophagitis and small bleeding visible vessel, epinephrine injection was given and a clip was placed. He was intubated and placed on ventilator support to prevent aspiration pneumonia, transferred to medical ICU as he is high-risk for recurrent bleeds. ICU course complicated metabolic encephalopthy. GI consultd due to slow drift in H & H without overt bleeding - (H/H trending down to 7.1 /21.8) likely multifactorial due to decreased PO intake +/- slow GI blood loss from severe erosive esophagitis. Pt reports decreased appetite is slowly improving. RECOMMENDATIONS: 1. Agree with transfusion of 1 U PRBCs today and follow H&H daily. 2. Continue PO PPI and sucralfate twice daily 3. PO iron once a day 4. If pt has overt bleeding, can be transferred to a tertiary care facility for angiographic control as advised by Dr White Time Spent With Patient Time: Total time managing care of this patient today ____ minutes. Quality Stroke Does the patient have a stroke diagnosis?: No VTE Prior VTE?: No VTE Risk Level:: Medical - moderate - high VTE Device Contraindication: Treatment Not Indicated VTE Drug Contraindication: N/A - Med Ordered
[2024-03-28] MEDS: Ferrous Sulfate 300 MG/5 ML LIQUID PO (16:40)
[2024-03-28] MEDS: cefTRIAXone sodium 2 GM in 0.9 % Sodium Chloride 50 ML IV (19:44)
[2024-03-28] MEDS: Mirtazapine 15 MG TABLET PO (20:59)
[2024-03-28] MEDS: Docusate Sodium 100 MG/10 ML LIQUID PO (20:59)
[2024-03-28] MEDS: risperiDONE 2 MG TABLET PO (20:59)
[2024-03-28] MEDS: Melatonin 3 MG TABLET 9 MG PO (21:00)
[2024-03-28] MEDS: Ammonium Lactate 12 % Lotion 226 GM BOTTLE 1 APPL TOPICAL (21:01)
[2024-03-29] VITALS (10 sets, daily range): BP systolic 120–145; BP diastolic 58–88; PULSE 70–79; RESP 17–19; TEMP 36.2–37.2; O2SAT 95–98
[2024-03-29] MEDS: Omeprazole 20 MG CAPSULE.DR PO ×2 (05:47→15:24)
[2024-03-29] MEDS: 0.9 % Sodium Chloride Flush 3 ML SYRINGE IVFLUSH ×3 (05:48→22:23)
[2024-03-29 07:22] LABS: Alanine Aminotransferase 14 U/L (0-40); Albumin Level 3.7 g/dL (3.5-5.0); Alkaline Phosphatase 109 U/L (39-117); Anion Gap 10 (12-20); Aspartate Amino Transferase 33 U/L (5-37); Bilirubin Total 5.9 mg/dL (0.0-1.0); Blood Urea Nitrogen 23 mg/dL (9-16); Calcium 9.1 mg/dL (8.4-10.2); Carbon Dioxide 30 mmol/L (22-29); Chloride 100 mmol/L (96-108); Creatinine Clr Calc Pharmacy 108.8; Estimated Glomerular Filt Rate > 60; Glucose Random 101 mg/dL (60-115); Magnesium 2.1 mg/dL (1.6-2.6); Phosphorus 2.3 mg/dL (2.7-4.5); Potassium 3.2 mmol/L (3.3-5.1); Sodium 137 mmol/L (135-145); Total Protein 6.8 g/dL (6.5-8.0)
[2024-03-29] MEDS: FLUoxetine HCl 20 MG CAPSULE 60 MG PO (09:22)
[2024-03-29] MEDS: Topiramate 100 MG TABLET 200 MG PO ×2 (09:23→22:22)
[2024-03-29] MEDS: Sucralfate 1 GM TABLET PO ×2 (09:23→15:24)
[2024-03-29] MEDS: Ferrous Sulfate 300 MG/5 ML LIQUID PO ×2 (09:23→17:48)
[2024-03-29] MEDS: Potassium Chloride ER 20 MEQ TAB.ER.PRT 40 MEQ PO (09:23)
[2024-03-29] MEDS: Furosemide 20 MG TABLET PO ×2 (09:23→17:49)
[2024-03-29] MEDS: guaiFENesin LA 600 MG TAB.ER.12H PO ×2 (09:23→22:23)
[2024-03-29] MEDS: QUEtiapine Fumarate 50 MG TABLET PO ×2 (09:23→22:23)
[2024-03-29] MEDS: Chlorhexidine Gluc Oral Rinse 15 ML MOUTHWASH BUCCAL ×3 (09:24→20:07)
[2024-03-29] MEDS: Thiamine HCL 100 MG in 0.9 % Sodium Chloride 100 ML 202 MG IV (09:24)
[2024-03-29] MEDS: Albumin Human 25 % 100 ML IV ×3 (09:25→19:58)
[2024-03-29 10:13] LABS: Hematocrit 24.4 % (42.0-52.0); Hemoglobin 8.1 g/dl (14.0-18.0)
[2024-03-29 10:26] LABS: Anion Gap 11 (12-20); Blood Urea Nitrogen 22 mg/dL (9-16); Calcium 9.1 mg/dL (8.4-10.2); Carbon Dioxide 29 mmol/L (22-29); Chloride 101 mmol/L (96-108); Creatinine Clr Calc Pharmacy 107.5; Estimated Glomerular Filt Rate > 60; Glucose Random 109 mg/dL (60-115); Potassium 3.4 mmol/L (3.3-5.1); Sodium 138 mmol/L (135-145)
--- NOTE | 2024-03-29 11:17 | MHC.CLN ---
F/U PT IS MODERATELY MALNOURISHED DIET RX: REGULAR PER MANAGER HYDRAULIC PO INTAKE 100% X3 MEALS CONTINUE TO MONITOR PO INTAKE CLOSELY RD TO FOLLOW WEEKLY
--- NOTE | 2024-03-29 16:20 | MHC.CM.PN ---
Pt is not yet ready for DC, he is improving, off TPN and is eating. CM met with pt yesterday to ask his choices for STR, referrals out and some accepting. CM to follow and continue to assist with DC planning.
--- NOTE | 2024-03-29 17:42 | HO.PM.IMPN ---
Subjective Subjective Date of Service: 03/29/24 Interval History: gi bleed,dec po intake Review of Systems po intake is still low Denies any chest pain or shortness of breath abdominal pain. Physical Exam Vital Signs: Vital Signs: Last Vital Signs Temp 97.6 F 03/29/24 16:00 Pulse 70 03/29/24 16:00 Resp 18 03/29/24 16:00 BP 145/64 H 03/29/24 16:00 Pulse Ox 97 03/29/24 16:00 O2 Del Method Nasal Cannula 03/29/24 16:00 O2 Flow Rate 2 03/29/24 16:00 FiO2 21 03/24/24 10:00 Oxygen Flow Rate 2 03/29/24 11:41 BMI result Body Mass Index 34.2 Appearance: Alert.? Oriented . cvs: [id number], [id number] . res: clear to auscultation ,no rhonchii or wheezing abd: no rebound or guarding ,nt, bs present. ext pulses present , no cyanosis . neuro: axo3 , nonfocal. Objective Data Active Medications Acetaminophen (Acetaminophen 325 Mg Tablet) 650 mg PO Q6H PRN PRN Reason: Pain, Mild (Pain Scale 1-3) Chlorhexidine Gluconate (Chlorhexidine Gluc Oral Rinse 15 Ml Mouthwash) 15 ml BUCCAL TID [facility] Last Admin: 03/29/24 15:27 Dose: 15 ml Documented By: ROLAN Docusate Sodium (Docusate Sodium 100 Mg/10 Ml Liquid) 100 mg PO BID [facility] Last Admin: 03/29/24 09:22 Dose: Not Given Documented By: ROLAN Non-Admin Reason: Patient Refused Ferrous Sulfate (Ferrous Sulfate 300 Mg/5 Ml Liquid) 300 mg PO BIDWM [facility] Last Admin: 03/29/24 09:23 Dose: 300 mg Documented By: ROLAN Fluoxetine HCl (Fluoxetine Hcl 20 Mg Capsule) 60 mg PO DAILY [facility] Last Admin: 03/29/24 09:22 Dose: 60 mg Documented By: ROLAN Furosemide (Furosemide 20 Mg Tablet) 20 mg PO BID@0900,1800 [facility]; Protocol Last Admin: 03/29/24 09:23 Dose: 20 mg Documented By: ROLAN Guaifenesin (Guaifenesin La 600 Mg Tab.Er.12h) 600 mg PO Q12H [facility] Last Admin: 03/29/24 09:23 Dose: 600 mg Documented By: ROLAN Thiamine HCl 100 mg/ Sodium (Chloride) 101 mls @ 202 mls/hr IV DAILY [facility] Last Infusion: 03/29/24 10:50 Dose: Infused Documented By: ROLAN Ceftriaxone Sodium 2 gm/ (Sodium Chloride) 50 mls @ 100 mls/hr IV Q24H [facility] Last Infusion: 03/29/24 07:29 Dose: Infused Documented By: ROLAN Albumin Human (Kedbumin 25 %) 100 mls @ 100 mls/hr IV Q6H [facility] Stop: 03/30/24 02:44 Last Admin: 03/29/24 15:20 Dose: 100 mls/hr Documented By: ROLAN Lactic Acid (Ammonium Lactate 12 % Lotion 226 Gm Bottle) 1 appl TOPICAL BID [facility]; Protocol Last Admin: 03/29/24 09:30 Dose: Not Given Documented By: ROLAN Non-Admin Reason: Patient Refused Lactulose (Lactulose 20 Gm/30 Ml Solution) 20 gm PO TID [facility] Last Admin: 03/29/24 15:26 Dose: Not Given Documented By: ROLAN Non-Admin Reason: Patient Refused Melatonin (Melatonin 3 Mg Tablet) 9 mg PO BEDTIME [facility] Last Admin: 03/28/24 21:00 Dose: 9 mg Documented By: SOPHY Mirtazapine (Mirtazapine 15 Mg Tablet) 15 mg PO BEDTIME [facility] Last Admin: 03/28/24 20:59 Dose: 15 mg Documented By: SOPHY Omeprazole (Omeprazole 20 Mg Melecio.) 20 mg PO BID@0630,1630 [facility] Last Admin: 03/29/24 15:24 Dose: 20 mg Documented By: ROLAN Ondansetron HCl (Ondansetron Hcl 4 Mg/2 Ml Vial) 4 mg IVPUSH Q8H PRN PRN Reason: Nausea and Vomiting Pharmacy Consult (Consult Rx Etoh Phenob Im/Po) 1 each MISCELLANE ONCE PRN; Protocol PRN Reason: Consult order Pharmacy Consult (Consult Rx Parenteral Nutrition Ordering) 1 each MISCELLANE DAILY PRN PRN Reason: Consult order Potassium Chloride (Potassium Chloride Er 20 Meq Tab.Er.Prt) 20 meq PO DAILY [facility] Last Admin: 03/25/24 09:01 Dose: Not Given Documented By: ELIZABETHOWL Non-Admin Reason: NPO Quetiapine Fumarate (Quetiapine Fumarate 50 Mg Tablet) 50 mg PO BID [facility] Last Admin: 03/29/24 09:23 Dose: 50 mg Documented By: ROLAN Risperidone (Risperidone 2 Mg Tablet) 2 mg PO BEDTIME [facility] Last Admin: 03/28/24 20:59 Dose: 2 mg Documented By: SOPHY Sodium Chloride (0.9 % Sodium Chloride Flush 3 Ml Syringe) 3 ml IVFLUSH QSHIFT [facility] Last Admin: 03/29/24 16:31 Dose: Not Given Documented By: ROLAN Non-Admin Reason: IV Running Sucralfate (Sucralfate 1 Gm Tablet) 1 gm PO BIDAC [facility] Last Admin: 03/29/24 15:24 Dose: 1 gm Documented By: ROLAN Topiramate (Topiramate 100 Mg Tablet) 200 mg PO BID [facility] Last Admin: 03/29/24 09:23 Dose: 200 mg Documented By: ROLAN Labs 03/29/24 09:59 03/29/24 09:59 Labs: Laboratory Results - last 24 hr 03/28/24 03/29/24 03/29/24 14:27 06:34 09:59 Hold Purple Top SEE NOTE Anion Gap 10 L 11 L Estim Creat Clear Calc 108.8 107.5 Estimated GFR > 60 > 60 Random Glucose 101 109 Calcium 9.1 9.1 Phosphorus 2.3 L Magnesium 2.1 Total Bilirubin 5.9 H AST 33 ALT 14 Alkaline Phosphatase 109 Total Protein 6.8 Albumin 3.7 Blood Type A Positive Antibody Screen NEGATIVE Crossmatch See Detail Assessment and Plan (1) Alcoholic cirrhosis: Status: Acute (2) GI bleed: Status: Acute Plan 58-year-old male with PMH of alcohol use disorder with alcoholic liver cirrhosis with prior admissions for hematemesis, mood disorder, gastroesophageal reflux disease, mood disorder, BPH admitted to the hospital 03/20 for the management of hematemesis. He had EGD on 03/21 and noted to have have significant esophagitis and small bleeding visible artery, epinephrine injection was given and a clip was placed. He was intubated and placed on ventilator support to prevent aspiration pneumonia, transferred to medical ICU as he is high-risk for recurrent bleeds. ICU course complicated metabolic encephalopthy.. Upper GI bleed Acute blood loss anemia Secondary to esophagitis and esophageal varices Underwent upper GI endoscopy which showed esophagitis and bleeding vessel which was clipped and epinephrine injection was given around. s/p units of RBCs, last transfusion , units of FFP ,iv ppi,octreotide. Monitor H/H trending down to 7.1 /21.8 given 1 prbc/ffp added given on 03/28/24 switch to oral ppi,sucralfate. Gi follow -moniter h/h 1more day Acute encephalopathy possibly due to metabolic encephalopathy, ammonia level has been ok, mental status improving on lactulose ,goal bm 2-3 range Acute hypoxemic respiratory failure due to aspiration pneumonia, succefully extubated. continue Ceftriaxone, WBC normal, no fever, normal sat on room air has Liver disease -alcoholic liver cirrhosis with Fluid overload Patient is 10 L negative since starting Lasix drip. On IV Lasix drip switched to lows or low-dose IV Lasix Decreased po inatke:: if po inatke improves -we plan dispo. Prophylaxis: SCD, pantoprazole ongoing hospitalization need: Liver cirrhosis with fluid overload, anemia due to GI bleed: H&H monitoring if stay stable will plan dispo and encouraged for p.o. intake, on a monitor renal function electrolytes, no taking enough po ,moniter po inatke-to decide for dispo. Quality Stroke Does the patient have a stroke diagnosis?: No VTE Prior VTE?: No VTE Risk Level:: Medical - moderate - high VTE Device Contraindication: Treatment Not Indicated VTE Drug Contraindication: N/A - Med Ordered
[2024-03-29] MEDS: cefTRIAXone sodium 2 GM in 0.9 % Sodium Chloride 50 ML IV (19:58)
[2024-03-29] MEDS: Mirtazapine 15 MG TABLET PO (22:22)
[2024-03-29] MEDS: Melatonin 3 MG TABLET 9 MG PO (22:22)
[2024-03-29] MEDS: risperiDONE 2 MG TABLET PO (22:23)
[2024-03-30] VITALS (8 sets, daily range): BP systolic 137–145; BP diastolic 65–68; PULSE 60–74; RESP 18–20; TEMP 36.2–36.8; O2SAT 96–99
[2024-03-30] MEDS: Albumin Human 25 % 100 ML IV (02:38)
[2024-03-30] MEDS: Omeprazole 20 MG CAPSULE.DR PO ×2 (05:12→15:58)
[2024-03-30] MEDS: 0.9 % Sodium Chloride Flush 3 ML SYRINGE IVFLUSH ×3 (07:47→21:00)
[2024-03-30] MEDS: Sucralfate 1 GM TABLET PO ×2 (07:47→15:58)
[2024-03-30 08:00] LABS: Hemoglobin 7.7 g/dl (14.0-18.0)
[2024-03-30 08:22] LABS: Alanine Aminotransferase 14 U/L (0-40); Albumin Level 4.2 g/dL (3.5-5.0); Alkaline Phosphatase 124 U/L (39-117); Anion Gap 13 (12-20); Aspartate Amino Transferase 31 U/L (5-37); Bilirubin Total 5.6 mg/dL (0.0-1.0); Blood Urea Nitrogen 20 mg/dL (9-16); Calcium 8.8 mg/dL (8.4-10.2); Carbon Dioxide 28 mmol/L (22-29); Chloride 103 mmol/L (96-108); Creatinine Clr Calc Pharmacy 108.8; Estimated Glomerular Filt Rate > 60; Glucose Random 107 mg/dL (60-115); Phosphorus 2.1 mg/dL (2.7-4.5); Potassium 3.4 mmol/L (3.3-5.1); Sodium 141 mmol/L (135-145); Total Protein 7.2 g/dL (6.5-8.0)
[2024-03-30] MEDS: Ferrous Sulfate 300 MG/5 ML LIQUID PO ×2 (09:15→17:36)
[2024-03-30] MEDS: Topiramate 100 MG TABLET 200 MG PO ×2 (09:16→21:00)
[2024-03-30] MEDS: FLUoxetine HCl 20 MG CAPSULE 60 MG PO (09:16)
[2024-03-30] MEDS: QUEtiapine Fumarate 50 MG TABLET PO ×2 (09:16→21:01)
[2024-03-30] MEDS: Furosemide 20 MG TABLET PO ×2 (09:16→17:36)
[2024-03-30] MEDS: Chlorhexidine Gluc Oral Rinse 15 ML MOUTHWASH BUCCAL (09:17)
[2024-03-30] MEDS: Lactulose 20 GM/30 ML SOLUTION PO (09:17)
[2024-03-30] MEDS: Thiamine HCL 100 MG in 0.9 % Sodium Chloride 100 ML 200 MG IV (09:18)
[2024-03-30] MEDS: Ammonium Lactate 12 % Lotion 226 GM BOTTLE 1 APPL TOPICAL (09:28)
--- NOTE | 2024-03-30 11:22 | PC.NURSE ---
per carpenter assistant installer RN report : Barber cath was removed yesterday, Pt is urinating since than with no problem . Order for Barber cath completed by this continuity writer today
[2024-03-30 11:25] LABS: Iron 34 mcg/dL (45-160); Percent Iron Saturation 40 % (15-50); Total Iron Binding Capacity 84 mcg/dL (228-428); Unsaturated Iron Binding 50 ug/dL
[2024-03-30 11:39] LABS: Ferritin 157 ng/mL (20-250)
[2024-03-30] MEDS: guaiFENesin LA 600 MG TAB.ER.12H PO (11:50)
[2024-03-30 12:49] LABS: Folate 4.3 ng/mL (> or = 4.0); Vitamin B12 550 pg/mL (200-900)
--- NOTE | 2024-03-30 14:41 | P.PNIM_ITS ---
Subjective Subjective Date of Service: 03/30/24 Interval History: gi bleed,dec po intake Review of Systems po intake slowly improving Denies any chest pain or shortness of breath abdominal pain. Physical Exam 2 Vital Signs: Vital Signs: Last Vital Signs Temp 97.1 F 03/30/24 10:45 Pulse 60 03/30/24 10:45 Resp 18 03/30/24 10:45 BP 144/66 H 03/30/24 10:45 Pulse Ox 96 03/30/24 11:20 O2 Del Method Nasal Cannula 03/30/24 11:20 O2 Flow Rate 2 03/30/24 10:45 FiO2 21 03/24/24 10:00 Oxygen Flow Rate 2 03/30/24 11:20 BMI result Body Mass Index 34.2 Appearance: Alert.? Oriented . cvs: rrr, [id number] . res: clear to auscultation ,no rhonchii or wheezing abd: no rebound or guarding ,nt, bs present. ext pulses present , no cyanosis . neuro: axo3 , nonfocal. Objective Data Active Medications Acetaminophen (Acetaminophen 325 Mg Tablet) 650 mg PO Q6H PRN PRN Reason: Pain, Mild (Pain Scale 1-3) Chlorhexidine Gluconate (Chlorhexidine Gluc Oral Rinse 15 Ml Mouthwash) 15 ml BUCCAL TID [facility] Last Admin: 03/30/24 09:17 Dose: 15 ml Documented By: MRAY Docusate Sodium (Docusate Sodium 100 Mg/10 Ml Liquid) 100 mg PO BID [facility] Last Admin: 03/30/24 09:22 Dose: Not Given Documented By: MARY Non-Admin Reason: Patient Refused Ferrous Sulfate (Ferrous Sulfate 300 Mg/5 Ml Liquid) 300 mg PO BIDWM [facility] Last Admin: 03/30/24 09:15 Dose: 300 mg Documented By: MARY Fluoxetine HCl (Fluoxetine Hcl 20 Mg Capsule) 60 mg PO DAILY [facility] Last Admin: 03/30/24 09:16 Dose: 60 mg Documented By: MARY Furosemide (Furosemide 20 Mg Tablet) 20 mg PO BID@0900,1800 [facility]; Protocol Last Admin: 03/30/24 09:16 Dose: 20 mg Documented By: MARY Guaifenesin (Guaifenesin La 600 Mg Tab.Er.12h) 600 mg PO Q12H [facility] Last Admin: 03/30/24 11:50 Dose: 600 mg Documented By: MARY Thiamine HCl 100 mg/ Sodium (Chloride) 101 mls @ 202 mls/hr IV DAILY [facility] Last Infusion: 03/30/24 11:03 Dose: Infused Documented By: MARY Ceftriaxone Sodium 2 gm/ (Sodium Chloride) 50 mls @ 100 mls/hr IV Q24H [facility] Last Infusion: 03/29/24 20:30 Dose: Infused Documented By: AYAH Lactic Acid (Ammonium Lactate 12 % Lotion 226 Gm Bottle) 1 appl TOPICAL BID [facility]; Protocol Last Admin: 03/30/24 09:28 Dose: 1 appl Documented By: MARY Lactulose (Lactulose 20 Gm/30 Ml Solution) 20 gm PO TID [facility] Last Admin: 03/30/24 09:17 Dose: 20 gm Documented By: MARY Melatonin (Melatonin 3 Mg Tablet) 9 mg PO BEDTIME [facility] Last Admin: 03/29/24 22:22 Dose: 9 mg Documented By: AYAH Mirtazapine (Mirtazapine 15 Mg Tablet) 15 mg PO BEDTIME [facility] Last Admin: 03/29/24 22:22 Dose: 15 mg Documented By: YAAH Omeprazole (Omeprazole 20 Mg Capsule.Dr) 20 mg PO BID@0630,1630 [facility] Last Admin: 03/30/24 05:12 Dose: 20 mg Documented By: AYAH Ondansetron HCl (Ondansetron Hcl 4 Mg/2 Ml Vial) 4 mg IVPUSH Q8H PRN PRN Reason: Nausea and Vomiting Pharmacy Consult (Consult Rx Etoh Phenob Im/Po) 1 each MISCELLANE ONCE PRN; Protocol PRN Reason: Consult order Pharmacy Consult (Consult Rx Parenteral Nutrition Ordering) 1 each MISCELLANE DAILY PRN PRN Reason: Consult order Potassium Chloride (Potassium Chloride Er 20 Meq Tab.Er.Prt) 20 meq PO DAILY [facility] Last Admin: 03/25/24 09:01 Dose: Not Given Documented By: LY Non-Admin Reason: NPO Quetiapine Fumarate (Quetiapine Fumarate 50 Mg Tablet) 50 mg PO BID [facility] Last Admin: 03/30/24 09:16 Dose: 50 mg Documented By: MARY Risperidone (Risperidone 2 Mg Tablet) 2 mg PO BEDTIME [facility] Last Admin: 03/29/24 22:23 Dose: 2 mg Documented By: AYAH Sodium Chloride (0.9 % Sodium Chloride Flush 3 Ml Syringe) 3 ml IVFLUSH QSHIFT [facility] Last Admin: 03/30/24 07:47 Dose: 3 ml Documented By: MARY Sucralfate (Sucralfate 1 Gm Tablet) 1 gm PO BIDAC [facility] Last Admin: 03/30/24 07:47 Dose: 1 gm Documented By: MARY Topiramate (Topiramate 100 Mg Tablet) 200 mg PO BID [facility] Last Admin: 03/30/24 09:16 Dose: 200 mg Documented By: MARY Labs 03/30/24 07:42 03/30/24 07:42 Labs: Laboratory Results - last 24 hr 03/30/24 03/30/24 07:42 11:43 Anion Gap 13 Estim Creat Clear Calc 108.8 Estimated GFR > 60 Random Glucose 107 Calcium 8.8 Phosphorus 2.1 L Magnesium 2.0 Iron 34 L TIBC 84 L % Saturation 40 Unsat Iron Binding 50 Ferritin 157 Total Bilirubin 5.6 H AST 31 ALT 14 Alkaline Phosphatase 124 H Total Protein 7.2 Albumin 4.2 Vitamin B12 550 Folate 4.3 Assessment and Plan (1) Acute upper GI bleed: Status: Acute Assessment and Plan: 58-year-old male with PMH of alcohol use disorder with alcoholic liver cirrhosis with prior admissions for hematemesis, mood disorder, gastroesophageal reflux disease, mood disorder, BPH admitted to the hospital 03/20 for the management of hematemesis. He had EGD on 03/21 and noted to have have significant esophagitis and small bleeding visible artery, epinephrine injection was given and a clip was placed. He was intubated and placed on ventilator support to prevent aspiration pneumonia, transferred to medical ICU as he is high-risk for recurrent bleeds. ICU course complicated metabolic encephalopthy.. Upper GI bleed Acute blood loss anemia Secondary to esophagitis and esophageal varices Underwent upper GI endoscopy which showed esophagitis and bleeding vessel which was clipped and epinephrine injection was given around. s/p units of RBCs, last transfusion , units of FFP ,iv ppi,octreotide. given 1 prbc/ffp added given on 03/28/24-h/h flactuating between 7.7-8 range /hct 24 range. switch to oral ppi,sucralfate. Gi follow -moniter h/h 1more day Acute encephalopathy possibly due to metabolic encephalopathy, ammonia level has been ok, mental status improving on lactulose ,goal bm 2-3 range Acute hypoxemic respiratory failure due to aspiration pneumonia, succefully extubated. continue Ceftriaxone, WBC normal, no fever, normal sat on room air has Liver disease -alcoholic liver cirrhosis with Fluid overload Patient is 10 L negative since starting Lasix drip. On IV Lasix drip switched to lows or low-dose IV Lasix Decreased po inatke:: if po inatke improves -we plan dispo. Prophylaxis: SCD, pantoprazole ongoing hospitalization need: awating placement. Quality Stroke Does the patient have a stroke diagnosis?: No VTE Prior VTE?: No VTE Risk Level:: Medical - moderate - high VTE Device Contraindication: Treatment Not Indicated VTE Drug Contraindication: N/A - Med Ordered
[2024-03-30] MEDS: cefTRIAXone sodium 2 GM in 0.9 % Sodium Chloride 50 ML IV (18:31)
[2024-03-30] MEDS: Mirtazapine 15 MG TABLET PO (21:00)
[2024-03-30] MEDS: risperiDONE 2 MG TABLET PO (21:00)
[2024-03-30] MEDS: Melatonin 3 MG TABLET 9 MG PO (21:01)
[2024-03-31] VITALS (7 sets, daily range): BP systolic 109–143; BP diastolic 57–67; PULSE 70–85; RESP 18–20; TEMP 36.4–37.1; O2SAT 97–100
[2024-03-31] MEDS: guaiFENesin LA 600 MG TAB.ER.12H PO ×3 (00:01→23:51)
[2024-03-31] MEDS: Omeprazole 20 MG CAPSULE.DR PO ×2 (05:52→16:43)
[2024-03-31] MEDS: Sucralfate 1 GM TABLET PO ×2 (05:52→16:43)
[2024-03-31 07:26] LABS: Alanine Aminotransferase 12 U/L (0-40); Albumin Level 3.7 g/dL (3.5-5.0); Alkaline Phosphatase 119 U/L (39-117); Anion Gap 10 (12-20); Aspartate Amino Transferase 30 U/L (5-37); Bilirubin Total 4.5 mg/dL (0.0-1.0); Blood Urea Nitrogen 18 mg/dL (9-16); Calcium 8.8 mg/dL (8.4-10.2); Carbon Dioxide 28 mmol/L (22-29); Chloride 103 mmol/L (96-108); Creatinine Clr Calc Pharmacy 108.8; Estimated Glomerular Filt Rate > 60; Glucose Random 98 mg/dL (60-115); Phosphorus 1.9 mg/dL (2.7-4.5); Potassium 3.3 mmol/L (3.3-5.1); Sodium 138 mmol/L (135-145); Total Protein 6.7 g/dL (6.5-8.0)
[2024-03-31] MEDS: Thiamine HCL 100 MG in 0.9 % Sodium Chloride 100 ML 200 MG IV (08:07)
[2024-03-31] MEDS: Chlorhexidine Gluc Oral Rinse 15 ML MOUTHWASH BUCCAL (08:07)
[2024-03-31] MEDS: 0.9 % Sodium Chloride Flush 3 ML SYRINGE IVFLUSH ×2 (08:08→16:43)
[2024-03-31] MEDS: QUEtiapine Fumarate 50 MG TABLET PO ×2 (08:08→21:57)
[2024-03-31] MEDS: Topiramate 100 MG TABLET 200 MG PO ×2 (08:08→21:58)
[2024-03-31] MEDS: Furosemide 20 MG TABLET PO ×2 (08:08→18:23)
[2024-03-31] MEDS: FLUoxetine HCl 20 MG CAPSULE 60 MG PO (08:08)
[2024-03-31] MEDS: Ferrous Sulfate 300 MG/5 ML LIQUID PO ×2 (08:08→18:23)
[2024-03-31] MEDS: Ammonium Lactate 12 % Lotion 226 GM BOTTLE 1 APPL TOPICAL (08:09)
--- NOTE | 2024-03-31 13:49 | PC.NURSE ---
OOB to recliner with 1 assist with walker , pt is having difficulties to get up from sitting position
--- NOTE | 2024-03-31 14:28 | P.PNIM_ITS ---
Subjective Subjective Date of Service: 03/31/24 Interval History: gi bleed,dec po intake Review of Systems po intake improving no ne nausea or vomiting or gross bleed Physical Exam 2 Vital Signs: Vital Signs: Last Vital Signs Temp 98.3 F 03/31/24 10:39 Pulse 76 03/31/24 10:39 Resp 20 03/31/24 10:39 BP 143/67 H 03/31/24 10:39 Pulse Ox 100 03/31/24 12:00 O2 Del Method Nasal Cannula 03/31/24 12:00 O2 Flow Rate 2 03/31/24 10:39 FiO2 21 03/24/24 10:00 Oxygen Flow Rate 2 03/31/24 12:00 BMI result Body Mass Index 34.2 Appearance: Alert.? Oriented . cvs: rrr, [id number] . res: clear to auscultation ,no rhonchii or wheezing abd: no rebound or guarding ,nt, bs present. ext pulses present , no cyanosis . neuro: axo3 , nonfocal. Objective Data Active Medications Acetaminophen (Acetaminophen 325 Mg Tablet) 650 mg PO Q6H PRN PRN Reason: Pain, Mild (Pain Scale 1-3) Chlorhexidine Gluconate (Chlorhexidine Gluc Oral Rinse 15 Ml Mouthwash) 15 ml BUCCAL TID [facility] Last Admin: 03/31/24 08:07 Dose: 15 ml Documented By: MARY Docusate Sodium (Docusate Sodium 100 Mg/10 Ml Liquid) 100 mg PO BID [facility] Last Admin: 03/31/24 08:08 Dose: Not Given Documented By: MARY Non-Admin Reason: Patient Refused Ferrous Sulfate (Ferrous Sulfate 300 Mg/5 Ml Liquid) 300 mg PO BIDWM [facility] Last Admin: 03/31/24 08:08 Dose: 300 mg Documented By: MARY Fluoxetine HCl (Fluoxetine Hcl 20 Mg Capsule) 60 mg PO DAILY [facility] Last Admin: 03/31/24 08:08 Dose: 60 mg Documented By: MARY Furosemide (Furosemide 20 Mg Tablet) 20 mg PO BID@0900,1800 [facility]; Protocol Last Admin: 03/31/24 08:08 Dose: 20 mg Documented By: MARY Guaifenesin (Guaifenesin La 600 Mg Tab.Er.12h) 600 mg PO Q12H [facility] Last Admin: 03/31/24 12:10 Dose: 600 mg Documented By: MARY Thiamine HCl 100 mg/ Sodium (Chloride) 101 mls @ 202 mls/hr IV DAILY [facility] Last Infusion: 03/31/24 09:19 Dose: Infused Documented By: MARY Ceftriaxone Sodium 2 gm/ (Sodium Chloride) 50 mls @ 100 mls/hr IV Q24H [facility] Last Infusion: 03/30/24 19:20 Dose: Infused Documented By: AYAH Lactic Acid (Ammonium Lactate 12 % Lotion 226 Gm Bottle) 1 appl TOPICAL BID [facility]; Protocol Last Admin: 03/31/24 08:09 Dose: 1 appl Documented By: MARY Lactulose (Lactulose 20 Gm/30 Ml Solution) 20 gm PO TID [facility] Last Admin: 03/31/24 08:09 Dose: Not Given Documented By: MARY Non-Admin Reason: Patient Refused Melatonin (Melatonin 3 Mg Tablet) 9 mg PO BEDTIME [facility] Last Admin: 03/30/24 21:01 Dose: 9 mg Documented By: AYAH Mirtazapine (Mirtazapine 15 Mg Tablet) 15 mg PO BEDTIME [facility] Last Admin: 03/30/24 21:00 Dose: 15 mg Documented By: AYAH Omeprazole (Omeprazole 20 Mg Capsule.Dr) 20 mg PO BID@0630,1630 [facility] Last Admin: 03/31/24 05:52 Dose: 20 mg Documented By: AYAH Ondansetron HCl (Ondansetron Hcl 4 Mg/2 Ml Vial) 4 mg IVPUSH Q8H PRN PRN Reason: Nausea and Vomiting Pharmacy Consult (Consult Rx Etoh Phenob Im/Po) 1 each MISCELLANE ONCE PRN; Protocol PRN Reason: Consult order Pharmacy Consult (Consult Rx Parenteral Nutrition Ordering) 1 each MISCELLANE DAILY PRN PRN Reason: Consult order Potassium Chloride (Potassium Chloride Er 20 Meq Tab.Er.Prt) 20 meq PO DAILY [facility] Last Admin: 03/25/24 09:01 Dose: Not Given Documented By: LY Non-Admin Reason: NPO Quetiapine Fumarate (Quetiapine Fumarate 50 Mg Tablet) 50 mg PO BID [facility] Last Admin: 03/31/24 08:08 Dose: 50 mg Documented By: MARY Risperidone (Risperidone 2 Mg Tablet) 2 mg PO BEDTIME [facility] Last Admin: 03/30/24 21:00 Dose: 2 mg Documented By: AYAH Sodium Chloride (0.9 % Sodium Chloride Flush 3 Ml Syringe) 3 ml IVFLUSH QSHIFT [facility] Last Admin: 03/31/24 08:08 Dose: 3 ml Documented By: MARY Sucralfate (Sucralfate 1 Gm Tablet) 1 gm PO BIDAC [facility] Last Admin: 03/31/24 05:52 Dose: 1 gm Documented By: AYAH Topiramate (Topiramate 100 Mg Tablet) 200 mg PO BID [facility] Last Admin: 03/31/24 08:08 Dose: 200 mg Documented By: MARY Labs 03/30/24 07:42 03/31/24 06:50 Labs: Laboratory Results - last 24 hr 03/31/24 06:50 Hold Purple Top SEE NOTE Anion Gap 10 L Estim Creat Clear Calc 108.8 Estimated GFR > 60 Random Glucose 98 Calcium 8.8 Phosphorus 1.9 L Magnesium 2.0 Total Bilirubin 4.5 H AST 30 ALT 12 Alkaline Phosphatase 119 H Total Protein 6.7 Albumin 3.7 Assessment and Plan (1) Acute upper GI bleed: Status: Acute Assessment and Plan: 58-year-old male with PMH of alcohol use disorder with alcoholic liver cirrhosis with prior admissions for hematemesis, mood disorder, gastroesophageal reflux disease, mood disorder, BPH admitted to the hospital 03/20 for the management of hematemesis. He had EGD on 03/21 and noted to have have significant esophagitis and small bleeding visible artery, epinephrine injection was given and a clip was placed. He was intubated and placed on ventilator support to prevent aspiration pneumonia, transferred to medical ICU as he is high-risk for recurrent bleeds. ICU course complicated metabolic encephalopthy.. Upper GI bleed Acute blood loss anemia Secondary to esophagitis and esophageal varices Underwent upper GI endoscopy which showed esophagitis and bleeding vessel which was clipped and epinephrine injection was given around. s/p units of RBCs, last transfusion , units of FFP ,iv ppi,octreotide. given 1 prbc/ffp added given on 24-h/h flactuating between 7.7-8 range /hct 24 range. switch to oral ppi,sucralfate. Gi follow -moniter h/h 1more day Acute encephalopathy possibly due to metabolic encephalopathy, ammonia level has been ok, mental status improving on lactulose ,goal bm 2-3 range Acute hypoxemic respiratory failure due to aspiration pneumonia, succefully extubated. continue Ceftriaxone, WBC normal, no fever, normal sat on room air has Liver disease -alcoholic liver cirrhosis with Fluid overload Patient is 10 L negative since starting Lasix drip. On IV Lasix drip switched to lows or low-dose IV Lasix Decreased po inatke:: if po inatke improves -we plan dispo. Prophylaxis: SCD, pantoprazole ongoing hospitalization need: awating placement. Quality Stroke Does the patient have a stroke diagnosis?: No VTE Prior VTE?: No VTE Risk Level:: Medical - moderate - high VTE Device Contraindication: Treatment Not Indicated VTE Drug Contraindication: N/A - Med Ordered
[2024-03-31] MEDS: cefTRIAXone sodium 2 GM in 0.9 % Sodium Chloride 50 ML IV (18:23)
[2024-03-31] MEDS: risperiDONE 2 MG TABLET PO (21:57)
[2024-03-31] MEDS: Melatonin 3 MG TABLET 9 MG PO (21:57)
[2024-03-31] MEDS: Docusate Sodium 100 MG/10 ML LIQUID PO (21:57)
[2024-03-31] MEDS: Mirtazapine 15 MG TABLET PO (21:58)
[2024-04-01] VITALS (8 sets, daily range): BP systolic 108–119; BP diastolic 55–58; PULSE 72–79; RESP 18–20; TEMP 36.5–37.4; O2SAT 98–100
[2024-04-01] MEDS: Omeprazole 20 MG CAPSULE.DR PO ×2 (05:49→17:15)
[2024-04-01 06:49] LABS: Alanine Aminotransferase 13 U/L (0-40); Albumin Level 3.6 g/dL (3.5-5.0); Alkaline Phosphatase 127 U/L (39-117); Anion Gap 12 (12-20); Aspartate Amino Transferase 31 U/L (5-37); Bilirubin Total 4.2 mg/dL (0.0-1.0); Blood Urea Nitrogen 17 mg/dL (9-16); Calcium 8.7 mg/dL (8.4-10.2); Carbon Dioxide 26 mmol/L (22-29); Chloride 103 mmol/L (96-108); Creatinine Clr Calc Pharmacy 112.9; Estimated Glomerular Filt Rate > 60; Glucose Random 99 mg/dL (60-115); Magnesium 1.9 mg/dL (1.6-2.6); Phosphorus 1.8 mg/dL (2.7-4.5); Potassium 3.2 mmol/L (3.3-5.1); Sodium 138 mmol/L (135-145); Total Protein 6.9 g/dL (6.5-8.0)
[2024-04-01 08:07] LABS: Hematocrit 23.8 % (42.0-52.0); Hemoglobin 7.6 g/dl (14.0-18.0)
[2024-04-01] MEDS: Chlorhexidine Gluc Oral Rinse 15 ML MOUTHWASH BUCCAL ×2 (08:24→17:15)
[2024-04-01] MEDS: Thiamine HCL 100 MG in 0.9 % Sodium Chloride 100 ML 202 MG IV (08:24)
[2024-04-01] MEDS: Ferrous Sulfate 300 MG/5 ML LIQUID PO ×2 (08:25→17:15)
[2024-04-01] MEDS: Potassium Chloride ER 20 MEQ TAB.ER.PRT PO (08:25)
[2024-04-01] MEDS: FLUoxetine HCl 20 MG CAPSULE 60 MG PO (08:25)
[2024-04-01] MEDS: Sucralfate 1 GM TABLET PO ×2 (08:26→17:44)
[2024-04-01] MEDS: Topiramate 100 MG TABLET 200 MG PO ×2 (08:26→20:12)
[2024-04-01] MEDS: QUEtiapine Fumarate 50 MG TABLET PO ×2 (08:26→20:12)
[2024-04-01] MEDS: Furosemide 20 MG TABLET PO ×2 (08:26→17:14)
[2024-04-01] MEDS: Ammonium Lactate 12 % Lotion 226 GM BOTTLE 1 APPL TOPICAL ×2 (08:28→21:06)
[2024-04-01] MEDS: Sodium,Potassium Phosphates POWD.PACK 1 PACKET PO ×4 (08:39→20:14)
[2024-04-01] MEDS: guaiFENesin LA 600 MG TAB.ER.12H PO ×2 (11:58→22:24)
--- NOTE | 2024-04-01 15:16 | MHC.CM.PN ---
Pt is medically cleared for discharge to [facility] pending bed offer. [facility] offered pt a bed, this CM met with pt to discuss and he accepted the bed offer. Auth pending for [facility].
--- NOTE | 2024-04-01 16:21 | HO.PM.IMPN ---
Subjective Subjective Date of Service: 04/01/24 Interval History: gi bleed,dec po intake Review of Systems po intake improving no ne nausea or vomiting or gross bleed Physical Exam Vital Signs: Vital Signs: Last Vital Signs Temp 97.8 F 04/01/24 11:19 Pulse 72 04/01/24 11:58 Resp 18 04/01/24 11:19 BP 109/57 L 04/01/24 11:58 Pulse Ox 99 04/01/24 12:00 O2 Del Method Room Air 04/01/24 12:00 O2 Flow Rate 2 04/01/24 07:46 FiO2 21 03/24/24 10:00 Oxygen Flow Rate 2 04/01/24 12:00 BMI result Body Mass Index 34.2 Appearance: Alert.? Oriented . cvs: rrr, [id number] . res: clear to auscultation ,no rhonchii or wheezing abd: no rebound or guarding ,nt, bs present. ext pulses present , no cyanosis . neuro: axo3 , nonfocal. Objective Data Active Medications Acetaminophen (Acetaminophen 325 Mg Tablet) 650 mg PO Q6H PRN PRN Reason: Pain, Mild (Pain Scale 1-3) Chlorhexidine Gluconate (Chlorhexidine Gluc Oral Rinse 15 Ml Mouthwash) 15 ml BUCCAL TID [facility] Last Admin: 04/01/24 08:24 Dose: 15 ml Documented By: MAYA Docusate Sodium (Docusate Sodium 100 Mg/10 Ml Liquid) 100 mg PO BID [facility] Last Admin: 04/01/24 08:43 Dose: Not Given Documented By: MAYA Non-Admin Reason: Patient Refused Ferrous Sulfate (Ferrous Sulfate 300 Mg/5 Ml Liquid) 300 mg PO BIDWM [facility] Last Admin: 04/01/24 08:25 Dose: 300 mg Documented By: MAYA Fluoxetine HCl (Fluoxetine Hcl 20 Mg Capsule) 60 mg PO DAILY [facility] Last Admin: 04/01/24 08:25 Dose: 60 mg Documented By: MAYA Furosemide (Furosemide 20 Mg Tablet) 20 mg PO BID@0900,1800 [facility]; Protocol Last Admin: 04/01/24 08:26 Dose: 20 mg Documented By: MAYA Guaifenesin (Guaifenesin La 600 Mg Tab.Er.12h) 600 mg PO Q12H [facility] Last Admin: 04/01/24 11:58 Dose: 600 mg Documented By: MAYA Thiamine HCl 100 mg/ Sodium (Chloride) 101 mls @ 202 mls/hr IV DAILY [facility] Last Infusion: 04/01/24 09:52 Dose: Infused Documented By: MIRIAN Ceftriaxone Sodium 2 gm/ (Sodium Chloride) 50 mls @ 100 mls/hr IV Q24H [facility] Last Infusion: 03/31/24 18:53 Dose: Infused Documented By: LIBBY Lactic Acid (Ammonium Lactate 12 % Lotion 226 Gm Bottle) 1 appl TOPICAL BID [facility]; Protocol Last Admin: 04/01/24 08:28 Dose: 1 appl Documented By: MAYA Lactulose (Lactulose 20 Gm/30 Ml Solution) 20 gm PO TID [facility] Last Admin: 04/01/24 08:24 Dose: 20 gm Documented By: MAYA Melatonin (Melatonin 3 Mg Tablet) 9 mg PO BEDTIME [facility] Last Admin: 03/31/24 21:57 Dose: 9 mg Documented By: LIBBY Mirtazapine (Mirtazapine 15 Mg Tablet) 15 mg PO BEDTIME [facility] Last Admin: 03/31/24 21:58 Dose: 15 mg Documented By: LIBBY Omeprazole (Omeprazole 20 Mg Capsule.Dr) 20 mg PO BID@0630,1630 [facility] Last Admin: 04/01/24 05:49 Dose: 20 mg Documented By: LIBBY Ondansetron HCl (Ondansetron Hcl 4 Mg/2 Ml Vial) 4 mg IVPUSH Q8H PRN PRN Reason: Nausea and Vomiting Pharmacy Consult (Consult Rx Etoh Phenob Im/Po) 1 each MISCELLANE ONCE PRN; Protocol PRN Reason: Consult order Potassium Chloride (Potassium Chloride Er 20 Meq Tab.Er.Prt) 20 meq PO DAILY [facility] Last Admin: 03/25/24 09:01 Dose: Not Given Documented By: LY Non-Admin Reason: NPO Potassium Phos/Sodium Phos (Sodium,Potassium Phosphates Powd.Pack) 1 packet PO QID [facility] Last Admin: 04/01/24 11:58 Dose: 1 packet Documented By: MAYA Quetiapine Fumarate (Quetiapine Fumarate 50 Mg Tablet) 50 mg PO BID [facility] Last Admin: 04/01/24 08:26 Dose: 50 mg Documented By: MAYA Risperidone (Risperidone 2 Mg Tablet) 2 mg PO BEDTIME [facility] Last Admin: 03/31/24 21:57 Dose: 2 mg Documented By: LIBBY Sodium Chloride (0.9 % Sodium Chloride Flush 3 Ml Syringe) 3 ml IVFLUSH QSHIFT [facility] Last Admin: 04/01/24 08:26 Dose: Not Given Documented By: MAYA Non-Admin Reason: IV Running Sucralfate (Sucralfate 1 Gm Tablet) 1 gm PO BIDAC [facility] Last Admin: 04/01/24 08:26 Dose: 1 gm Documented By: MAYA Topiramate (Topiramate 100 Mg Tablet) 200 mg PO BID [facility] Last Admin: 04/01/24 08: Dose: 200 mg Documented By: MAYA Labs 04/01/24 07:57 04/01/24 05:48 Labs: Laboratory Results - last 24 hr 04/01/24 05:48 Hold Purple Top SEE NOTE Anion Gap 12 Estim Creat Clear Calc 112.9 Estimated GFR > 60 Random Glucose 99 Calcium 8.7 Phosphorus 1.8 L Magnesium 1.9 Total Bilirubin 4.2 H AST 31 ALT 13 Alkaline Phosphatase 127 H Total Protein 6.9 Albumin 3.6 Assessment and Plan (1) Acute upper GI bleed: Status: Acute Assessment and Plan: 58-year-old male with PMH of alcohol use disorder with alcoholic liver cirrhosis with prior admissions for hematemesis, mood disorder, gastroesophageal reflux disease, mood disorder, BPH admitted to the hospital 03/20 for the management of hematemesis. He had EGD on 03/21 and noted to have have significant esophagitis and small bleeding visible artery, epinephrine injection was given and a clip was placed. He was intubated and placed on ventilator support to prevent aspiration pneumonia, transferred to medical ICU as he is high-risk for recurrent bleeds. ICU course complicated metabolic encephalopthy.. Upper GI bleed Acute blood loss anemia Secondary to esophagitis and esophageal varices Underwent upper GI endoscopy which showed esophagitis and bleeding vessel which was clipped and epinephrine injection was given around. s/p units of RBCs, last transfusion , units of FFP ,iv ppi,octreotide. given 1 prbc/ffp added given on 03/28/24-h/h flactuating between 7.7-8 range /hct 24 range. switch to oral ppi,sucralfate. Gi follow -moniter cbc closely Acute encephalopathy possibly due to metabolic encephalopathy, ammonia level has been ok, mental status improving on lactulose ,goal bm 2-3 range Acute hypoxemic respiratory failure due to aspiration pneumonia, succefully extubated. continue Ceftriaxone, WBC normal, no fever, normal sat on room air has Liver disease -alcoholic liver cirrhosis with Fluid overload Patient is 10 L negative since starting Lasix drip. On IV Lasix drip switched to lows or low-dose IV Lasix Decreased po inatke:: if po inatke improves -we plan dispo. Prophylaxis: SCD, pantoprazole ongoing hospitalization need: awating placement. Quality Stroke Does the patient have a stroke diagnosis?: No VTE Prior VTE?: No VTE Risk Level:: Medical - moderate - high VTE Device Contraindication: Treatment Not Indicated VTE Drug Contraindication: N/A - Med Ordered
[2024-04-01] MEDS: 0.9 % Sodium Chloride Flush 3 ML SYRINGE IVFLUSH ×2 (17:16)
[2024-04-01] MEDS: Melatonin 3 MG TABLET 9 MG PO (20:12)
[2024-04-01] MEDS: Mirtazapine 15 MG TABLET PO (20:12)
[2024-04-01] MEDS: risperiDONE 2 MG TABLET PO (20:12)
[2024-04-01] MEDS: cefTRIAXone sodium 2 GM in 0.9 % Sodium Chloride 50 ML IV (20:14)
[2024-04-02] VITALS: BP 147/69; PULSE 94; RESP 20; TEMP 37.1; O2SAT 98
[2024-04-02] MEDS: 0.9 % Sodium Chloride Flush 3 ML SYRINGE IVFLUSH (00:13)
[2024-04-02 03:52] VITALS: BP 128/60; PULSE 82; RESP 20; TEMP 37; O2SAT 97
[2024-04-02] MEDS: Omeprazole 20 MG CAPSULE.DR PO (06:05)
[2024-04-02 07:13] LABS: Alanine Aminotransferase 12 U/L (0-40); Albumin Level 3.6 g/dL (3.5-5.0); Alkaline Phosphatase 146 U/L (39-117); Anion Gap 8 (12-20); Aspartate Amino Transferase 28 U/L (5-37); Bilirubin Total 3.9 mg/dL (0.0-1.0); Blood Urea Nitrogen 16 mg/dL (9-16); Calcium 8.7 mg/dL (8.4-10.2); Carbon Dioxide 28 mmol/L (22-29); Chloride 105 mmol/L (96-108); Creatinine Clr Calc Pharmacy 117.3; Estimated Glomerular Filt Rate > 60; Glucose Random 106 mg/dL (60-115); Phosphorus 2.5 mg/dL (2.7-4.5); Potassium 3.3 mmol/L (3.3-5.1); Sodium 138 mmol/L (135-145)
[2024-04-02 07:45] VITALS: BP 129/62; PULSE 76; RESP 20; TEMP 37.2; O2SAT 99
[2024-04-02] MEDS: Thiamine HCL 100 MG in 0.9 % Sodium Chloride 100 ML 202 MG IV (07:51)
[2024-04-02] MEDS: Chlorhexidine Gluc Oral Rinse 15 ML MOUTHWASH BUCCAL (07:51)
[2024-04-02] MEDS: Ferrous Sulfate 300 MG/5 ML LIQUID PO (07:52)
[2024-04-02] MEDS: Topiramate 100 MG TABLET 200 MG PO (07:52)
[2024-04-02] MEDS: FLUoxetine HCl 20 MG CAPSULE 60 MG PO (07:52)
[2024-04-02 07:53] VITALS: BP 129/62
[2024-04-02] MEDS: Sucralfate 1 GM TABLET PO (07:53)
[2024-04-02] MEDS: risperiDONE 2 MG TABLET PO (07:53)
[2024-04-02] MEDS: Furosemide 20 MG TABLET PO (07:53)
[2024-04-02] MEDS: Sodium,Potassium Phosphates POWD.PACK 1 PACKET PO ×2 (07:53→11:44)
[2024-04-02] MEDS: Ammonium Lactate 12 % Lotion 226 GM BOTTLE 1 APPL TOPICAL (07:54)
[2024-04-02] MEDS: QUEtiapine Fumarate 50 MG TABLET PO (08:07)
[2024-04-02 11:09] VITALS: BP 123/58; PULSE 73; RESP 20; TEMP 37.1; O2SAT 99
[2024-04-02] MEDS: guaiFENesin LA 600 MG TAB.ER.12H PO (11:44)
--- NOTE | 2024-04-02 13:29 | HO.REMOVAL ---
Removal of PICC/Midline Removal of PICC/Midline: Removal of Midline: 1. Date: 04/02/2024 2. Reason removed: No longer needed, MD order 3. Inserted length: 34 cm 4. Removed length: 34 cm 5. A dressing was placed over the site upon removal. No edema or bleeding at the site, no hematoma.
--- NOTE | 2024-04-02 13:29 | PM.DS ---
DS: Providers Provider Date of Service: 04/02/24 Date of admission: 03/20/24 05:47 Primary care physician: Fransisco Soria MD Consults: 03/20/24 05:48 Consult to Gastroenterology Stat Consulting Provider: Kash Roldan Reason for consultation: Hematemesis 03/20/24 05:54 Addiction Medicine Routine Consulting Provider: Sudhakar Ziegler Reason for consultation: alcohol use disorder DS: Diagnosis Discharge Diagnosis (1) Acute upper GI bleed: Status: Acute DS: Summary Hospital Course Hospital Course: Date of Service: 03/20/24 Chief Complaint: Vomiting blood This is a 58-year-old male with pertinent history of alcohol use disorder with alcoholic liver cirrhosis, mood disorder, gastroesophageal reflux disease, mood disorder, BPH who presents to the emergency department for evaluation of blood in vomitus. Patient states he started having multiple episodes of vomiting 1 day prior to presentation. Few episodes had blood in vomitus. No fever, chills or abdominal discomfort. His last alcoholic drink was 1 day prior to presentation. States he is unable to tolerate any p.o. intake. Does have a history of alcohol withdrawal. No history of alcohol withdrawal seizures. No shortness of breath, palpitations, change in urinary or bowel habits. In the emergency department, patient was given IV Protonix, IV octreotide. Hospital course: 58-year-old male with PMH of alcohol use disorder with alcoholic liver cirrhosis with prior admissions for hematemesis, mood disorder, gastroesophageal reflux disease, BPH admitted to the hospital 03/20 for the management of hematemesis. He had EGD on 03/21 and noted to have have significant esophagitis and small bleeding visible artery, epinephrine injection was given and a clip was placed, patient treated with IV PPI and octreotide,he was intubated and placed on ventilator support due to acute hypoxic respiratory failure due to aspiration pneumonia, finished course of antibiotics, ICU course complicated by metabolic encephalopthy, treated with lactulose mental status improved, subsequently extubated and transferred to telemetry unit patient remained hemodynamically stable, he required 1 unit of packed RBC with good response, hematocrit low but close to his baseline around 24, he remained hemodynamically stable, was followed closely by GI now tolerating by mouth PPI and sucralfate, oxygenation stable and is being discharged to rehab facility due to generalized weakness for less than 30 days. In regard to alcoholic liver disease he was noted to have fluid overload treated with IV Lasix drip, now transitioned to by mouth Lasix home dose, spironolactone 25 mg daily and propranolol, he remains hemodynamically stable and has been strongly recommended to abstain from alcohol. Recommend outpatient follow-up with Gastroenterology in 3-4 weeks. Time Attestation Discharge Coordination Time (in mins): 40 Quality: Safe Use of Opioids Does Pt have an Active Cancer Diagnosis on the Problem List?: No Quality: Stroke Does the patient have a stroke diagnosis?: No Physical Exam Vital Signs: Vital Signs: Last Vital Signs Temp 98.8 F 04/02/24 11:09 Pulse 73 04/02/24 11:09 Resp 20 04/02/24 11:09 BP 123/58 L 04/02/24 11:09 Pulse Ox 99 04/02/24 11:09 O2 Del Method Nasal Cannula 04/02/24 12:00 O2 Flow Rate 2 04/02/24 11:09 FiO2 21 03/24/24 10:00 Oxygen Flow Rate 2 04/01/24 12:00 BMI result Body Mass Index 34.2 Const: Other: Gen: Awake alert x3, in no acute distress HEENT: sclera anicteric, moist mucus membranes Neck: supple Lungs: clear to auscultation bilaterally Heart: regular rate and rhythm, no murmurs Abd: soft, non-tender, non-distended Ext: no edema Skin: warm/well-perfused Neuro: alert and oriented x3, no focal findings Psych: appropriate affect DS: Data Data Completed and Pending Completed studies during hospitalization [Text1]: Procedures Detoxification Services for Substance Abuse Treatment (12/27/23) Drainage of Bladder with Drainage Device, Via Natural or Artificial Opening Endoscopic (02/23/24) Drainage of Peritoneal Cavity, Percutaneous Approach (03/02/22) Excision of Cecum, Via Natural or Artificial Opening Endoscopic, Diagnostic (03/02/22) Excision of Rectum, Via Natural or Artificial Opening Endoscopic, Diagnostic (03/02/22) Inspection of Upper Intestinal Tract, Via Natural or Artificial Opening Endoscopic (02/23/24) Introduction of Vasopressor into Peripheral Vein, Percutaneous Approach (02/23/24) Repair Scalp Skin, External Approach (11/20/21) Transfusion of Nonautologous Frozen Plasma into Peripheral Vein, Percutaneous Approach (02/23/24) Transfusion of Nonautologous Platelets into Peripheral Vein, Percutaneous Approach (02/23/24) Transfusion of Nonautologous Red Blood Cells into Peripheral Vein, Percutaneous Approach (02/23/24) Labs on day of discharge: Laboratory Results - last 24 hr 04/02/24 06:48 Sodium 138 Potassium 3.3 Chloride 105 Carbon Dioxide 28 Anion Gap 8 L BUN 16 Creatinine 0.77 Estim Creat Clear Calc 117.3 Estimated GFR > 60 Random Glucose 106 Calcium 8.7 Phosphorus 2.5 L Magnesium 2.0 Total Bilirubin 3.9 H AST 28 ALT 12 Alkaline Phosphatase 146 H Total Protein 7.0 Albumin 3.6 Discharge Plan Discharge Anticipated Discharge Date/Time: 04/02/24 13:24 Patient Disposition: er [facility] Discharge Diagnosis: Upper GI bleed Acute blood loss anemia Acute metabolic encephalopathy Acute hypoxic respiratory failure due to aspiration pneumonia Referrals: Fransisco Soria MD [Primary Care Provider] - 1 Week Discharge Medications: New spironolactone [Aldactone] 25 mg tablet 25 mg PO DAILY Qty: 30 0RF potassium, sodium phosphates [Phos-NaK] 280-160-250 mg Powder In Packet 1 packet PO TID Qty: 9 0RF Continued propranolol 10 mg tablet 1 tab PO TID topiramate [Topamax] 200 mg tablet 1 tab PO BID tamsulosin 0.4 mg capsule 0.4 mg PO BEDTIME furosemide 40 mg tablet 1 tab PO DAILY fluoxetine [Prozac] 20 mg capsule 60 mg PO QAM mirtazapine 15 mg tablet 15 mg PO BEDTIME melatonin 10 mg tablet 10 mg PO BEDTIME risperidone 2 mg Tablet 2 mg PO BEDTIME sucralfate 1 gram Tablet 1 g PO BIDAC Qty: 60 0RF pantoprazole 40 mg tablet,delayed release (DR/EC) 40 mg PO BID Qty: 60 0RF ondansetron 4 mg tablet,disintegrating 4 mg PO Q8H PRN (Reason: nausea/vomiting) ammonium lactate 12 % Lotion 1 appl topical BID Qty: 400 2RF Protocol: Apply to: Apply to: Whole body lactulose [Constulose] 10 gram/15 mL solution 30 ml PO BID PRN (Reason: Constipation) potassium chloride 20 mEq tablet extended release 20 meq PO DAILY quetiapine [Seroquel] 50 mg tablet 50 mg PO BID guaifenesin [Mucinex] 600 mg tablet extended release 12hr 600 mg PO Q12H Discontinued spironolactone 100 mg tablet 1 tab PO DAILY Discharge Orders: Discharge Order (Routine); Ordered 04/02/24 Ordered By: Dayana Hanson Diet: Advance to usual diet Activity on Discharge: As tolerated Stand Alone Forms: Patient Portal Discharge page Print Language: Croatian Care Plan Goals: Strongly recommend to abstain from alcohol Continue all home medications as before hold lactulose for more than 2 bowel movement per day Take Neutra-Phos for 3 more days Being discharged to rehab facility for less than 30 days Health Concerns: Continue all home medications as before except dose of spironolactone reduced due to low blood pressures Plan of Treatment: Outpatient follow-up with primary care physician Outpatient follow-up Gastroenterology call for appointment in 3-4 weeks Assessment: As above
--- NOTE | 2024-04-02 13:45 | MHC.CM.PN ---
Second IMM 04/02/24, Pt has been medically cleared for DC, he will go to [facility] for STR by BLS today.
== END 2024-04-02 15:14 | disposition skilled nursing facility (03) | DRG 432 ==
LOC: HO.ED 03-20 04:29 → HO.EDOVER 03-20 05:59 → HO.IMC 03-20 19:23 → HO.ICU 03-21 14:18 → HO.IMC 03-25 07:10
PROVIDERS: Internal Medicine; Internal Medicine Critical Care Medicine; Internal Medicine Gastroenterology; Physician Assistant Medical; Admitting Provider Student in an Organized Health Care Education/Training Program; Emergency Provider Emergency Medicine; PCP Internal Medicine; Visit Provider Hospitalist
PROC: 0DJ08ZZ Inspection of Upper Intestinal Tract, Via Natural or Artificial Opening Endoscopic (ICD-10-PCS; CPT 43235; principal; 2024-03-21 13:00)
DX: K70.31 Alcoholic cirrhosis of liver with ascites (principal); G93.41 Metabolic encephalopathy; I85.11 Secondary esophageal varices with bleeding; K25.0 Acute gastric ulcer with hemorrhage; K21.01 Gastro-esophageal reflux disease with esophagitis, with bleeding; J69.0 Pneumonitis due to inhalation of food and vomit; J96.01 Acute respiratory failure with hypoxia; R57.8 Other shock; D62 Acute posthemorrhagic anemia; E87.21 Acute metabolic acidosis; E87.1 Hypo-osmolality and hyponatremia; D68.4 Acquired coagulation factor deficiency; E44.0 Moderate protein-calorie malnutrition; K76.6 Portal hypertension; I50.9 Heart failure, unspecified; K31.89 Other diseases of stomach and duodenum; K44.9 Diaphragmatic hernia without obstruction or gangrene; K76.82 Hepatic encephalopathy; F17.210 Nicotine dependence, cigarettes, uncomplicated; Y90.0 Blood alcohol level of less than 20 mg/100 ml; F10.20 Alcohol dependence, uncomplicated; N40.0 Benign prostatic hyperplasia without lower urinary tract symptoms; F39 Unspecified mood [affective] disorder; Z71.6 Tobacco abuse counseling; Z68.34 Body mass index [BMI] 34.0-34.9, adult; Z79.899 Other long term (current) drug therapy
CPT/HCPCS: 36415; 36573; 49083; 71045; 80048; 80053; 80076; 80307; 82140; 82271; 82272; 82607; 82728; 82746; 82803; 83540; 83605; 83615; 83690; 83735; 83880; 84100; 84478; 84484; 85014; 85018; 85025; 85027; 85045; 85610; 86850; 86900; 86901; 86923; 87040; 87070; 87073; 87205; 89051; 92526; 92610; 93005; 94002; 94003; 94640; 94799; 97110; 97116; 97162; 97530; 99285; C1751; C1758; C9113; J0171; J0696; J0737; J1596; J1940; J2250; J2354; J2371; J2405; J2560; J2704; J2765; J3411; J3475; J3480; P9016; P9017; P9047

== ENCOUNTER → 2024-03-19 23:41 | Outpatient (BNV) | payer MEDICARE, SELFPAY | PROVIDERS: Admitting Provider Student in an Organized Health Care Education/Training Program; Emergency Provider Emergency Medicine; PCP Internal Medicine; Visit Provider Internal Medicine Cardiovascular Disease | DX: R94.31 Abnormal electrocardiogram [ECG] [EKG] (principal); K92.2 Gastrointestinal hemorrhage, unspecified | CPT/HCPCS: 93010 ==

== ENCOUNTER → 2024-03-20 02:24 | Outpatient (BNV) | payer MEDICARE, SELFPAY | PROVIDERS: Emergency Provider Emergency Medicine; Visit Provider Student in an Organized Health Care Education/Training Program | DX: K92.2 Gastrointestinal hemorrhage, unspecified (principal) | CPT/HCPCS: 99223; 99231; 99232; 99233; 99239; 99499 ==

== ENCOUNTER → 2024-03-20 05:47 | Outpatient (BNV) | payer MEDICARE, SELFPAY | PROVIDERS: Admitting Provider Student in an Organized Health Care Education/Training Program; Emergency Provider Emergency Medicine; PCP Internal Medicine; Visit Provider Internal Medicine Gastroenterology | DX: K92.2 Gastrointestinal hemorrhage, unspecified (principal); D50.9 Iron deficiency anemia, unspecified; K20.90 Esophagitis, unspecified without bleeding | CPT/HCPCS: 43236; 99223; 99232 ==

== ENCOUNTER → 2024-03-20 05:47 | Outpatient (BNV) | payer MEDICARE, SELFPAY | PROVIDERS: Admitting Provider Student in an Organized Health Care Education/Training Program; Emergency Provider Emergency Medicine; PCP Internal Medicine; Visit Provider Physician Assistant Surgical | DX: R18.8 Other ascites (principal) | CPT/HCPCS: 49083 ==

== ENCOUNTER 2024-05-22 06:06 | Emergency (ER) | payer MEDICARE, SELFPAY ==
--- NOTE | ~2024-05-22 | CT_ITS ---
EXAMINATION: CT ABDOMEN AND PELVIS WITH CONTRAST CLINICAL INFORMATION: Left upper quadrant pain. COMPARISON: 12/27/2023 TECHNIQUE: Multidetector volumetric images were obtained from the superior aspect of the liver through the pubic symphysis following administration 85 mL of Omnipaque 350 intravenous contrast. Sagittal and coronal reformatted images were obtained on the technologist's workstation. Oral contrast: No This CT examination was performed using dose optimization techniques as appropriate, variously including the following: *Automated exposure control *Adjustment of mA and/or kV according to patient size (this includes techniques or standardized protocols for targeted exams where dose is matched to indication/reason for exam; i.e. extremities or head) *Use of iterative reconstruction technique DLP: 786 mGy-cm FINDINGS: LUNG BASES: Left lower lobe atelectasis versus consolidation. Gynecomastia. LIVER, GALLBLADDER, AND BILIARY TREE: Hepatic cirrhosis. Heterogeneous hepatic parenchyma difficult to assess for underlying lesions. No biliary ductal dilatation is present. The gallbladder is contracted with gallstones. PANCREAS: No ductal dilatation. SPLEEN: Enlarged. ADRENAL GLANDS: No adrenal mass. KIDNEYS AND URETERS: The kidneys enhance symmetrically. No hydronephrosis. No perinephric stranding. BLADDER: Underdistended. GASTROINTESTINAL TRACT: Metallic artifact at the gastroesophageal junction. Focal wall thickening of the mid sigmoid colon with possible catheter into the bladder dome. Fluid in the rectosigmoid colon. Rectal wall thickening. Perirectal changes. Nonspecific small and large bowel wall thickening. Small ascites in the abdomen and pelvis. ABDOMINAL WALL: Anasarca. LYMPH NODES: No bulky lymphadenopathy. Edema in the retroperitoneum and mesentery. VASCULAR: Normal caliber abdominal aorta. Portosystemic collaterals. PELVIC VISCERA: Metallic densities in the prostate bed. OSSEOUS STRUCTURES: No destructive bone lesions. Anterior wedging of T11-L1 vertebral bodies. Retrolisthesis of L5 on S1. CT/CT abdomen pelvis w IV con IMPRESSION: Hepatic cirrhosis. Heterogeneous hepatic parenchyma limits evaluation and detection of underlying lesions. Splenomegaly. Small volume ascites with some of which appears loculated. Portosystemic collaterals. Findings representing portal hypertension. Focal wall thickening of the mid sigmoid colon with possible tethering to the bladder dome. Rectal wall thickening and mild perirectal changes. Nonspecific wall thickening of loops of small and large bowel. Findings are similar to comparison study. Cholelithiasis.
--- NOTE | 2024-05-22 06:25 | ED.ABDPAIN ---
HPI - Abdominal Pain General Chief Complaint: Abdominal Pain Stated Complaint: abd pain Time Seen by Provider: 05/22/24 06:39 Source: patient and EMS Mode of arrival: EMS Limitations: no limitations History of Present Illness ED Provider: Lisa Camacho PA-C HPI narrative: Leandro Rico is a 58-year-old male history alcoholic cirrhosis of the liver with ascites and encephalopathy, hyperlipidemia, hypertension, anxiety, depression, portal hypertension, and esophageal varices who presents emergency department today complaining of left lower quadrant abdominal pain. Patient states that this pain has been happening on and off over the last year or so and it has always remained in the same place in the lower left quadrant. He states that the pain is on and off. He has not taken anything for pain management before coming in. States he has not had a drink of alcohol in about 10 weeks. He states that he has not been hungry recently over the last year, and has feelings of fullness after just a few bites of food . He endorses diarrhea and nausea that have also been present over the last year. He had two events of vomiting yesterday during the day, and states that it mostly looked like the food he ate. He denies blood in his vomit or stool. He denies any shortness of breath, chest tightness, chest pain, fever or headaches. Denies lower leg swelling. He does not take a blood thinner. MD elicited complaint: abdominal pain Onset (ago): year(s) (1) Pain Consistency: intermittent and other (getting worse over the last year) Location: LLQ Quality: stabbing and sharp Radiation: LLQ Exacerbating factors: movement Relieving factors: nothing Context: history of similar episodes Associated symptoms: nausea and diarrhea (history of this for a while) Related Data Home Medications ?Medication ?Instructions ?Recorded ?Confirmed propranolol 10 mg tablet 1 tab PO TID 11/11/21 03/20/24 topiramate 200 mg tablet (Topamax) 1 tab PO BID 11/11/21 03/20/24 fluoxetine 20 mg capsule (Prozac) 60 mg PO QAM 02/06/22 03/20/24 furosemide 40 mg tablet 1 tab PO DAILY 10/17/22 03/20/24 tamsulosin 0.4 mg capsule 0.4 mg PO BEDTIME 10/17/22 03/20/24 melatonin 10 mg tablet 10 mg PO BEDTIME Insomnia 11/13/23 03/20/24 mirtazapine 15 mg tablet 15 mg PO BEDTIME 11/13/23 03/20/24 risperidone 2 mg tablet 2 mg PO BEDTIME 12/27/23 03/20/24 ondansetron 4 mg disintegrating 4 mg PO Q8H PRN nausea/vomiting 03/01/24 03/20/24 tablet lactulose 10 gram/15 mL oral 30 ml PO BID PRN Constipation 03/08/24 03/20/24 solution (Constulose) guaifenesin 600 mg tablet, 600 mg PO Q12H 03/20/24 03/20/24 extended release 12 hr (Mucinex) potassium chloride 20 mEq 20 meq PO DAILY 03/20/24 03/20/24 tablet,extended release quetiapine 50 mg tablet (Seroquel) 50 mg PO BID 03/20/24 03/20/24 Previous Rx's ?Medication ?Instructions ?Recorded pantoprazole 40 mg tablet,delayed 40 mg PO BID #60 tabs 12/30/23 release sucralfate 1 gram tablet 1 g PO BIDAC #60 tabs 12/30/23 ammonium lactate 12 % lotion 1 appl topical BID #400 grams 03/05/24 potassium, sodium phosphates 280 1 packet PO TID #9 ea 04/02/24 mg-160 mg-250 mg oral powder packet (Phos-NaK) spironolactone 25 mg tablet 25 mg PO DAILY #30 tabs 04/02/24 (Aldactone) Allergies Allergy/AdvReac Type Severity Reaction Status Date / Time Fish Containing Products Allergy Severe THROAT Verified 05/22/24 06:40 SWELLING peanut [Peanut] Allergy Severe THROAT Verified 05/22/24 06:40 SWELLING Review of Systems Constitutional: Reports poor appetite Eyes: Reports no additional eye complaints, Denies blurry vision, Denies change in vision, Denies diplopia, Denies eye discharge, Denies loss of vision and Denies eye pain Reports system reviewed and no additional complaints, except as documented Cardiovascular: Reports as per HPI, Reports leg edema and Reports dyspnea on exertion Respiratory: Reports dyspnea on exertion Gastrointestinal: Reports abdominal pain, Reports diarrhea, Reports loose stools, Reports nausea and Reports vomiting Genitourinary: Reports no additional male genitourinary complaints Musculoskeletal: Reports no additional musculoskeletal complaints Skin/Breast: Reports system reviewed and no additional complaints, except as docu Reports system reviewed and no additional complaints, except as documented and Denies loss of vision Psychiatric: Reports anxiety and Reports depression Endocrine: Reports no additional endocrine complaints Hematologic/Lymphatic: Reports no additional hematologic/lymphatic complaints Allergic/Immunologic: Reports no additional allergic/immunologic complaints PMFSH Past Medical History Attestation statement: The following information was validated with the patient. (all information validated with the patient's partner) Source: old records reviewed, obtained from family (patient's partner provided additional history and confirmed the history provided by the patient) and nursing notes reviewed Medical History Congestive heart failure Anemia ETOH abuse Alcoholic cirrhosis PTSD (post-traumatic stress disorder) Hyponatremia Acute hyponatremia NATHANIEL (acute kidney injury) Acute metabolic encephalopathy [place] Alcoholic cirrhosis of liver with ascites Prostate cancer Depression Hyperlipidemia Hypertension Anxiety Social History Social History Household Members: Spouse Household Members Other:: fiancee Housing: Condominium Do you presently have visiting nurse or other home services: Yes Unable to assess alcohol history related to: Refusing to respond Alcohol intake: former Comment: bilateral wrist restraints for airway safety Patient Tobacco Use Status: Current everyday Tobacco user Tobacco use type: Cigarette Cigarette Packs Per Day: 2 Cigarettes Per Day: 40.0 Years Smoked: 25 Smoked in Last 30 Days: Yes e-Cigarette/Vaping Use: Currently Using Second Hand Smoke Exposure: No Use of substances other than those prescribed or required for medical reasons: Yes Substance Use Type: Marijuana Advance Directives: Yes Advance Directives on File: Yes Advance Directives Date on File: 11/11/21 Do you have a plan to hurt others: No Plan service: No Current occupational status: disabled Physical Exam ED Vital Signs: Vital Signs - 24 hr 05/22/24 06:39 05/22/24 08:00 Temperature 98.1 F Pulse Rate 50 50 Respiratory Rate 16 Blood Pressure 113/38 L 126/48 L Pulse Oximetry 100 99 Oxygen Delivery Method Room Air Room Air BMI result Body Mass Index 32.1 Const General: cooperative, well developed, alert and awake Nutritional Appearance: well nourished Orientation/consciousness: patient oriented x3 Limitations: no limitations HENMT Head: Yes normal to inspection Ears: hearing grossly normal bilaterally General nose exam: Normal external nose present Face and sinus: Yes normal facial exam, No abrasion and No laceration Mouth: Normal oral and palatal mucosa present, no drooling and no muffled voice Eyes General: appearance normal, both eyes and all related structures Periorbital: periorbital findings normal Eyelids: Yes eyelids normal Conjunctivae: conjunctivae normal Pupils: Equal, round and reactive pupils present EOM: EOMs intact bilaterally Neck Neck: Yes normal visual inspection and Yes full ROM Chest Chest palpation & inspection: normal inspection of the chest Resp Effort & Inspection: normal respiratory effort and able to speak in complete sentences Auscultation: clear to auscultation bilaterally Cardio Rate: regular rate Rhythm: regular rhythm Heart sounds: S1 normal heart sound present and S2 normal heart sound present GI Inspection: Yes distended Palpation (GI): Hepatosplenomegaly present and Splenomegaly present Auscultation: normal bowel sounds General: Yes no CVA tenderness Back/Spine/Pelvis Back: no CVA tenderness Skin Other: There are veins visible through the skin noted in the abdominal skin superior of the umbilical General skin exam: no rashes or lesions noted Lesions: no lesions Rashes: no rashes Wounds: no wounds Neuro General: patient oriented x3 Cranial nerves: Yes Equal, round and reactive pupils present Cognition (Neuro): normal cognition Extrem General: Yes normal to inspection, Yes full ROM and Yes capillary refill normal Psych Appearance: grossly normal Mental Status: mental status grossly normal Affect: normal affect Attitude: cooperative Thought process: Normal thought process present Thought content: Normal thought content present Insight: Good insight present (Psych) Course Reevaluation(s) Reevaluation #1: RME by Dr. Lema. 58 yo male with cirrhosis secondary to alcoholism presents now with increasing left sided abdominal pain. PE significant for chronically ill male with severe splenomegally that is tender. Will have blood work done and obtain CT of abdomen to evaluate spleen Time: 06:27 Medical Decision Making Medical Decision Making MDM Narrative: Leandro Rico is a 58-year-old male history alcoholic cirrhosis of the liver with ascites and encephalopathy, hyperlipidemia, hypertension, anxiety, depression, portal hypertension, and esophageal varices who presents emergency department today complaining of left lower quadrant abdominal pain. On physical exam, both spleen and liver are noted to be enlarged. Active bowel sounds throughout and no complaints of decreased/no bowel movement indicating less likely SBO or LBO. Does not endorse recent drinking or history of gall stones, less likely pancreatitis however will obtain CT scan and assess. No blood in stool or vomit, and no dark bowel movements noted by patient making GI bleed less likely. Most likely splenomegaly secondary to alcoholic liver cirrhosis which matches the physical exam findings. Patient's labs were largely unremarkable for the patient as they are consistent with the patient's chronic conditions / usual lab results. Patient is afebrile and not tachycardic - no suspicion of SBP. Patient's CT abd/pelvis showed no acute process however, it did show multiple chronic findings which are unchanged from patient's previous. I explained all results to the patient and his partner who verbalized understanding. At this time, patient is appropriate for discharge. I discussed this with the patient and his partner who verbalized understanding and agreement. Differential Diagnosis Differential Diagnoses: The differential diagnosis associated with the presentation includes Splenomegaly secondary to alcoholic liver cirrhosis, SBO, LBO Admission/Observation Consideration of admission/observation: Escalation of care including admission/observation considered Patient would have been admitted to the hospital had his work up had any findings where hospital admission was appropriate and his clinical presentation warranted hospital admission. Lab Data [facility] Lab Attestation statement: I reviewed the patient's lab results. My interpretation of these results are in the [facility] Rationale portion of this note. 05/22/24 06:48 05/22/24 06:48 Labs: Lab Results 05/22/24 05/22/24 05/22/24 Range/Units 06:48 07:02 09:14 WBC 5.2 (4.8-10.8) X10*3/uL RBC 3.30 L D (4.60-5.80) X10*6/uL Hgb 10.1 L D (14.0-18.0) g/dl Hct 30.8 L D (42.0-52.0) % MCV 93.3 (80.0-98.0) fL MCH 30.6 (27.0-33.0) pg MCHC 32.8 (31.0-36.0) g/dl RDW 15.2 (11.0-16.0) % Plt Count 156 L D (160-400) X10*3/uL MPV 9.9 (9.4-12.4) fL Immature Gran % (Auto) 0.4 (0.0-0.4) % Neut % (Auto) 61.0 (45-73) % Lymph % (Auto) 26.3 (20-40) % [place] % (Auto) 8.6 (2-11) % Eos % (Auto) 2.9 (0-4) % Baso % (Auto) 0.8 (0-2) % Lymph # (Auto) 1.4 (1.2-4.9) X10*3/uL [place] # (Auto) 0.5 (0.1-1.2) X10*3/uL Eos # (Auto) 0.2 (0.0-0.4) X10*3/uL Baso # (Auto) 0.0 (0.0-0.2) X10*3/uL Abs Immat Gran (auto) 0.02 (0.00-0.03) X10*3/uL Absolute Neuts (auto) 3.2 (2.0-8.3) x10*3/uL Absolute Nucleated RBC 0.000 (0.0-0.012) X10*3/uL Nucleated RBC % (auto) 0.0 (0.0-0.2) /100WBC PT 16.8 H (11.1-13.3) SEC INR 1.4 H (0.9-1.1) APTT 40.8 H (26.0-36.8) SEC Sodium 137 (135-145) mmol/L Potassium 4.1 D (3.3-5.1) mmol/L Chloride 111 H (96-108) mmol/L Carbon Dioxide 21 L (22-29) mmol/L Anion Gap 9 L (12-20) BUN 5 L (9-16) mg/dL Creatinine 0.78 (0.5-1.4) mg/dL Estim Creat Clear Calc 112.1 Estimated GFR > 60 Random Glucose 93 (60-115) mg/dL Calcium 8.5 (8.4-10.2) mg/dL Total Bilirubin 2.1 H (0.0-1.0) mg/dL AST 23 (5-37) U/L ALT 7 (0-40) U/L Alkaline Phosphatase 187 H (39-117) U/L Ammonia 47 (13-55) umol/L Total Protein 7.5 (6.5-8.0) g/dL Albumin 2.6 L (3.5-5.0) g/dL Urine Color Dark Yellow Urine Appearance Clear Urine pH 6.5 (5.0-9.0) Ur Specific [place] >= 1.030 H (1.005-1.025) Urine Protein Negative (Neg-Trace) mg/dL Urine Glucose (UA) Negative (Negative) mg/dL Urine Ketones Negative (Negative) mg/dL Urine Blood Small (1+) H (Negative) Urine Nitrite Negative (Negative) Ur Leukocyte Esterase Negative (Negative) Urine RBC 6-10 H (0-2) /HPF Urine WBC 0-5 (0-5) /HPF Ur Squamous Epith Cells 0-2 (0-2) /HPF Urine Bacteria None Seen (None Seen) Hyaline Casts 0-2 (0-2) /LPF Ethyl Alcohol < 10 mg/dL Independent Interpretation I performed an independent interpretation of an: CT Scan Interpretation: My interpretation is in agreement with the radiologist's impression of this imaging study. EXAMINATION: CT ABDOMEN AND PELVIS WITH CONTRAST CLINICAL INFORMATION: Left upper quadrant pain. COMPARISON: 12/27/2023 TECHNIQUE: Multidetector volumetric images were obtained from the superior aspect of the liver through the pubic symphysis following administration 85 mL of Omnipaque 350 intravenous contrast. Sagittal and coronal reformatted images were obtained on the technologist's workstation. Oral contrast: No This CT examination was performed using dose optimization techniques as appropriate, variously including the following: *Automated exposure control *Adjustment of mA and/or kV according to patient size (this includes techniques or standardized protocols for targeted exams where dose is matched to indication/reason for exam; i.e. extremities or head) *Use of iterative reconstruction technique DLP: 786 mGy-cm FINDINGS: LUNG BASES: Left lower lobe atelectasis versus consolidation. Gynecomastia. LIVER, GALLBLADDER, AND BILIARY TREE: Hepatic cirrhosis. Heterogeneous hepatic parenchyma difficult to assess for underlying lesions. No biliary ductal dilatation is present. The gallbladder is contracted with gallstones. PANCREAS: No ductal dilatation. SPLEEN: Enlarged. ADRENAL GLANDS: No adrenal mass. KIDNEYS AND URETERS: The kidneys enhance symmetrically. No hydronephrosis. No perinephric stranding. BLADDER: Underdistended. GASTROINTESTINAL TRACT: Metallic artifact at the gastroesophageal junction. Focal wall thickening of the mid sigmoid colon with possible catheter into the bladder dome. Fluid in the rectosigmoid colon. Rectal wall thickening. Perirectal changes. Nonspecific small and large bowel wall thickening. Small ascites in the abdomen and pelvis. ABDOMINAL WALL: Anasarca. LYMPH NODES: No bulky lymphadenopathy. Edema in the retroperitoneum and mesentery. VASCULAR: Normal caliber abdominal aorta. Portosystemic collaterals. PELVIC VISCERA: Metallic densities in the prostate bed. OSSEOUS STRUCTURES: No destructive bone lesions. Anterior wedging of T11-L1 vertebral bodies. Retrolisthesis of L5 on S1. CT/CT abdomen pelvis w IV con IMPRESSION: Hepatic cirrhosis. Heterogeneous hepatic parenchyma limits evaluation and detection of underlying lesions. Splenomegaly. Small volume ascites with some of which appears loculated. Portosystemic collaterals. Findings representing portal hypertension. Focal wall thickening of the mid sigmoid colon with possible tethering to the bladder dome. Rectal wall thickening and mild perirectal changes. Nonspecific wall thickening of loops of small and large bowel. Findings are similar to comparison study. Cholelithiasis. Dictated By: Marlen Diallo MD Signed By: Electronically signed by Marlen Diallo MD 05/22/24 1011 Radiology Impression Discussion of test interpretation with radiology: I have reviewed the radiologist's reading. Independent Historian Clinical information obtained from an independent historian. History obtained from or confirmed by: EMS (EMS provided additional history and confirmed the history provided by the patient) and Other (Patient's partner provided additional history and confirmed the history provided by the patient) Medications Administered Discontinued Medications Generic Name Dose Route Start Last Admin Trade Name Freq PRN Reason Stop Dose Admin Iohexol 100 ml 05/22/24 08:25 05/22/24 08:30 Iohexol 350 Mg/Ml 100 Ml Infus..Btl IV 05/22/24 08:26 85 ml ONCE ONE Administration Discharge Plan Discharge Clinical Impression: Abdominal pain Patient Disposition: Home, Self-Care Instructions: Abdominal Pain (ED) Additional Instructions: Your lab work and imaging was reassuring. Follow up with your primary care provider and your liver specialist. Return to the emergency department immediately if your symptoms worsen or if you develop any dizziness, shortness of breath, difficulty breathing, chest pain, blurry vision, loss of vision, nausea, vomiting, abdominal pain, fever, chills, back pain, or any other complaints. Prescriptions: No Action propranolol 10 mg tablet 1 tab PO TID topiramate [Topamax] 200 mg tablet 1 tab PO BID tamsulosin 0.4 mg capsule 0.4 mg PO BEDTIME furosemide 40 mg tablet 1 tab PO DAILY fluoxetine [Prozac] 20 mg capsule 60 mg PO QAM mirtazapine 15 mg tablet 15 mg PO BEDTIME melatonin 10 mg tablet 10 mg PO BEDTIME risperidone 2 mg Tablet 2 mg PO BEDTIME sucralfate 1 gram Tablet 1 g PO BIDAC Qty: 60 0RF pantoprazole 40 mg tablet,delayed release (DR/EC) 40 mg PO BID Qty: 60 0RF ondansetron 4 mg tablet,disintegrating 4 mg PO Q8H PRN (Reason: nausea/vomiting) ammonium lactate 12 % Lotion 1 appl topical BID Qty: 400 2RF Protocol: Apply to: Apply to: Whole body lactulose [Constulose] 10 gram/15 mL solution 30 ml PO BID PRN (Reason: Constipation) potassium chloride 20 mEq tablet extended release 20 meq PO DAILY quetiapine [Seroquel] 50 mg tablet 50 mg PO BID guaifenesin [Mucinex] 600 mg tablet extended release 12hr 600 mg PO Q12H spironolactone [Aldactone] 25 mg tablet 25 mg PO DAILY Qty: 30 0RF potassium, sodium phosphates [Phos-NaK] 280-160-250 mg Powder In Packet 1 packet PO TID Qty: 9 0RF Referrals: Fransisco Soria MD [Primary Care Provider] - Print Language: Burmese
[2024-05-22 06:37] VITALS: BP 106/60; PULSE 54; O2SAT 97
[2024-05-22 06:39] VITALS: BP 113/38; PULSE 50; RESP 16; TEMP 36.7; O2SAT 100; BMI 32.1
[2024-05-22 06:53] LABS: MANUAL DIFF FLAG NO
[2024-05-22 06:55] LABS: Basophils Percent Auto 0.8 % (0-2); Eosinophils Absolute Auto 0.2 X10*3/uL (0.0-0.4); Eosinophils Percent Auto 2.9 % (0-4); Hematocrit 30.8 % (42.0-52.0); Hemoglobin 10.1 g/dl (14.0-18.0); Imm Gran Abs Auto 0.02 X10*3/uL (0.00-0.03); Imm Gran Pct Auto 0.4 % (0.0-0.4); Lymphocytes Absolute Auto 1.4 X10*3/uL (1.2-4.9); Lymphocytes Percent Auto 26.3 % (20-40); Mean Corpuscular HGB Conc 32.8 g/dl (31.0-36.0); Mean Corpuscular Hemoglobin 30.6 pg (27.0-33.0); Mean Corpuscular Volume 93.3 fL (80.0-98.0); Mean Platelet Volume 9.9 fL (9.4-12.4); Monocytes Absolute Auto 0.5 X10*3/uL (0.1-1.2); Monocytes Percent Auto 8.6 % (2-11); Neutrophils Absolute Auto 3.2 x10*3/uL (2.0-8.3); Platelet Count 156 X10*3/uL (160-400); Red Cell Distribution Width 15.2 % (11.0-16.0); White Blood Count 5.2 X10*3/uL (4.8-10.8)
[2024-05-22 07:13] LABS: INTERNATIONAL NORM RATIO 1.4 (0.9-1.1); Prothrombin Time 16.8 SEC (11.1-13.3)
[2024-05-22 07:15] LABS: Alanine Aminotransferase 7 U/L (0-40); Albumin Level 2.6 g/dL (3.5-5.0); Alkaline Phosphatase 187 U/L (39-117); Anion Gap 9 (12-20); Aspartate Amino Transferase 23 U/L (5-37); Bilirubin Total 2.1 mg/dL (0.0-1.0); Blood Urea Nitrogen 5 mg/dL (9-16); Calcium 8.5 mg/dL (8.4-10.2); Carbon Dioxide 21 mmol/L (22-29); Chloride 111 mmol/L (96-108); Creatinine Clr Calc Pharmacy 112.1; Estimated Glomerular Filt Rate > 60; Ethanol < 10 mg/dL; Glucose Random 93 mg/dL (60-115); Potassium 4.1 mmol/L (3.3-5.1); Sodium 137 mmol/L (135-145); Total Protein 7.5 g/dL (6.5-8.0)
[2024-05-22 07:16] LABS: Ammonia 47 umol/L (13-55); Partial Thromboplastin Time 40.8 SEC (26.0-36.8)
[2024-05-22 08:00] VITALS: BP 126/48; PULSE 50; O2SAT 99
[2024-05-22] MEDS: iohexoL 350 MG/ML 100 ML INFUS..BTL IV (08:30)
[2024-05-22 09:25] LABS: Appearance Urine Clear; Color Urine Dark Yellow; Glucose Urine UA Negative (Negative); Leukocyte Esterase Urine Negative (Negative); Nitrite Urine Negative (Negative); PH 6.5 (5.0-9.0); Specific Gravity - Urine >= 1.030 (1.005-1.025); UMIC TRIGGER UACC YES; Urine Blood Small (1+) (Negative); Urine Ketones Negative (Negative); Urine Protein Negative (Neg-Trace)
[2024-05-22 09:28] LABS: Bacteria Urine None Seen (None Seen); Hyaline Casts Urine 0-2 /LPF (0-2); Squamous Epithelial Cell Urine 0-2 /HPF (0-2); WBC Urine 0-5 /HPF (0-5)
[2024-05-22 11:16] VITALS: BP 138/44; PULSE 44; RESP 16; TEMP 37.1; O2SAT 99
[2024-05-22 11:27] VITALS: BP 138/44; PULSE 44; RESP 16; TEMP 37.1; O2SAT 99
== END 2024-05-22 11:28 | disposition home or self-care (01) ==
PROVIDERS: Emergency Medicine; Physician Assistant Medical; Emergency Provider Emergency Medicine; PCP Internal Medicine
DX: R10.12 Left upper quadrant pain (principal); R10.32 Left lower quadrant pain; M25.50 Pain in unspecified joint; I10 Essential (primary) hypertension; M54.2 Cervicalgia; F17.210 Nicotine dependence, cigarettes, uncomplicated; R11.2 Nausea with vomiting, unspecified; Z79.899 Other long term (current) drug therapy
CPT/HCPCS: 36415; 74177; 80053; 80307; 81001; 82140; 85025; 85610; 85730; 99284; Q9967

== ENCOUNTER 2024-07-23 11:45 | Inpatient (IN) | payer MEDICARE, SELFPAY ==
[2024-07-23] VITALS (8 sets, daily range): BP systolic 100–130; BP diastolic 48–70; PULSE 58–71; RESP 14–18; TEMP 36.6–36.8; O2SAT 95–98; BMI 27.7
--- NOTE | ~2024-07-23 | US_ITS ---
Ultrasound diagnostic paracentesis History: Ascites. Concern for SBP. Risks and benefits and possible complications were discussed with the patient and consent form was signed. A safe pocket of ascitic fluid was identified using ultrasound guidance, and the overlying skin was marked. The abdomen prepped and draped in sterile fashion. 1% lidocaine was used as a local anesthetic. Using ultrasound guidance, a 22-gauge spinal needle was placed into the ascitic pocket. 40 mL of yellow fluid was aspirated and sent for analysis. The catheter was then removed. A few sales representative wire rope images from before and after the examination were obtained. The procedure was performed by Anthony Banks PA-C and supervised by Dr. Cortez. US/US paracentesis abd w/image Impression: Ultrasound-guided diagnostic paracentesis as described above. No immediate complications Electronically signed by: Gilberto Proctor MD 08/12/2024 02:33 PM EDT
--- NOTE | ~2024-07-23 | US_ITS ---
EXAMINATION: US ABDOMEN LIMITED CLINICAL INFORMATION: Right upper quadrant pain and abnormal LFTs. COMPARISON: CT abdomen/pelvis 05/22/2024. TECHNIQUE: Real-time imaging of the right upper quadrant abdominal viscera. FINDINGS: Very limited examination secondary to body habitus, pain and shadowing from overlying bowel gas. PANCREAS: Not well seen. LIVER: Cirrhotic liver morphology. Hepatofugal flow of the main portal vein and small volume of ascites most consistent with portal hypertension. Within limitations, no discrete liver mass. No intrahepatic biliary ductal dilatation. GALLBLADDER: Partially distended with mild diffuse wall thickening and internal echogenic bile/sludge. Trace pericholecystic free fluid which is indeterminate in the context of ascites. Negative Dewey's sign. COMMON BILE DUCT: Not well seen. RIGHT KIDNEY: Not well seen.. FREE FLUID: Small volume of ascites. US/US abdomen limited IMPRESSION: 1. Very limited examination secondary to patient body habitus, pain and shadowing from overlying bowel gas. 2. Cirrhotic liver morphology with hepatofugal flow of the main portal vein and small volume of ascites most consistent with portal hypertension. 3. Mild gallbladder wall thickening and trace pericholecystic free fluid are indeterminate in the context of cirrhosis, portal hypertension and ascites. Internal echogenic bile and sludge are seen, however no discrete posterior shadowing calculi are visualized. Electronically signed by: Jade Cleveland MD 07/23/2024 05:07 PM EDT
--- NOTE | ~2024-07-23 | CT_ITS ---
EXAMINATION: CT ABDOMEN AND PELVIS WITH CONTRAST CLINICAL INFORMATION: Worsening liver dysfunction COMPARISON: CT abdomen and pelvis 05/22/2024 abdominal ultrasound 07/23/2024 TECHNIQUE: Multidetector volumetric images were obtained from the superior aspect of the liver through the pubic symphysis following administration 85 mL of Omnipaque 350 intravenous contrast. Sagittal and coronal reformatted images were obtained on the technologist's workstation. Oral contrast: No This CT examination was performed using dose optimization techniques as appropriate, variously including the following: *Automated exposure control *Adjustment of mA and/or kV according to patient size (this includes techniques or standardized protocols for targeted exams where dose is matched to indication/reason for exam; i.e. extremities or head) *Use of iterative reconstruction technique DLP: 774 mGy-cm FINDINGS: LUNG BASES: Trace left pleural effusion and mild left base dependent atelectasis. LIVER, GALLBLADDER, AND BILIARY TREE: The liver demonstrates mildly lobulated capsular contour suspicious for cirrhosis. No focal parenchymal lesions of the liver or intrahepatic duct dilatation identified. Partially calcified gallstones are noted dependently within the neck of the gallbladder. Diffuse gallbladder wall thickening is present to a width of approximately 4 mm. Common bile duct measures 10 mm diameter. PANCREAS: Unremarkable. SPLEEN: The spleen is at the upper limits of normal size measuring 13 cm in maximum dimension. ADRENAL GLANDS: Unremarkable. KIDNEYS AND URETERS: The kidneys are normal in size, shape, and attenuation. No hydronephrosis, hydroureter, or calculi seen. No perinephric stranding. BLADDER: Mildly distended. No gross neural contour abnormalities. GASTROINTESTINAL TRACT: Normal appearance of the appendix (series 4 image [id number]) no intestinal dilatation or mural thickening. Diffuse reticulation of the small bowel mesentery and sigmoid mesentery. Normal intraluminal opacification noted in the visualized components of the superior mesenteric artery. No clips in the region of the gastroesophageal junction. Mild-moderate quantity of ascites slightly increased in quantity compared with 05/22/2024. No gross ectasia of the paraesophageal veins. No recanalization of the periumbilical veins. Mildly prominent splenorenal varices unchanged from the most recent comparison exam. ABDOMINAL WALL: No significant hernia is appreciated. Anasarca slightly increased in prominence compared with 05/22/2024. LYMPH NODES: Normal. VASCULAR: Moderate scattered calcific atherosclerosis PELVIC VISCERA: Brachytherapy seeds are present within the prostate. OSSEOUS STRUCTURES: No suspicious skeletal abnormalities. CT/CT abdomen pelvis w IV con IMPRESSION: *Cirrhosis with mild-moderate ascites and anasarca. The quantity of ascites and degree of anasarca are both mildly increased compared with 05/22/2024. *Cholelithiasis. Multiple calcified gallstones within the dependent portion of the gallbladder lumen. The common bile duct currently measures 10 mm diameter increased in caliber compared with 05/22/2024. No intrahepatic biliary duct dilatation identified. Increased caliber of the common bile duct could be secondary to choledocholithiasis or dysfunction at the sphincter of Trevin. Mild diffuse gallbladder wall thickening is present but is a nonspecific finding in the setting of ascites. *Unchanged splenorenal varices consistent with underlying portal hypertension. *Trace left pleural effusion and mild left base compressive atelectasis similar findings present 05/22/2024. Electronically signed by: Franco Sal MD 07/23/2024 11:04 PM EDT
--- NOTE | ~2024-07-23 | MR_ITS ---
EXAMINATION: MRI ABDOMEN WITHOUT CONTRAST, MRCP CLINICAL INFORMATION: Abdominal pain, elevated LFTs. Increased biliary ductal dilatation and gallbladder calculi on prior CT. COMPARISON: CT abdomen/pelvis 07/23/2024. TECHNIQUE: Multiple routine MRI sequences through the abdomen were obtained without intravenous contrast. 3D MRCP images were processed on an independent workstation under concurrent supervision. FINDINGS: LUNG BASES: Small left greater than right pleural effusions. Symmetric gynecomastia. Partially seen cardiomegaly. LIVER: Very heterogeneous liver parenchyma with cirrhotic morphology and hepatic steatosis. Evaluation of liver lesions is very limited due to motion, ascites, lack of intravenous contrast and heterogeneous liver background. GALLBLADDER AND BILIARY TREE: The gallbladder is filled with sludge and stones. Gallbladder wall thickening and pericholecystic free fluid are noted, which are indeterminate in the context of cirrhosis and ascites. No significant biliary ductal dilatation. SPLEEN: Splenomegaly measuring up to 13.4 cm craniocaudally. PANCREAS: Limited examination without significant abnormality. ADRENAL GLANDS: No adrenal nodule/mass. KIDNEYS AND URETERS: No hydronephrosis or discrete focal lesion. GASTROINTESTINAL: Moderate volume of ascites with suggestion of a septated pocket with an internal septation posterior to the right hepatic lobe measuring 6.5 x 3.5 cm (6:26). Diffuse wall thickening and intramural edema of the stomach, small bowel and a portion of the ascending colon. Susceptibility artifacts from metallic clips in the gastroesophageal junction. Body wall anasarca. LYMPHOVASCULAR STRUCTURES: Normal caliber abdominal aorta. Portosystemic collaterals including splenorenal varices. No abdominal adenopathy. OSSEOUS STRUCTURES: Stable mild anterior compression deformities of the T11 and T12 vertebral bodies. Degenerative changes of the spine. MR/MR MRCP IMPRESSION: Limited evaluation secondary to motion, lack of intravenous contrast and moderate volume of ascites. No significant biliary ductal dilatation. Within limitations of motion, no evidence of choledocholithiasis. Cirrhotic liver with hepatic steatosis and portal hypertension. Evaluation of liver lesions is very limited, for which correlation with outpatient MRI with and without intravenous contrast HCC protocol is recommended as clinically warranted. Gallbladder calculi and sludge with indeterminate gallbladder wall thickening and pericholecystic free fluid. Clinical correlation recommended. Wall thickening and mural edema involving the stomach, small bowel and ascending colon which could indicate portal enteropathy in the setting of portal hypertension, correlate clinically. Moderate volume of ascites with loculated pockets in the right upper quadrant abutting the surface of the posterior right hepatic lobe. Anasarca and small pleural effusions. Electronically signed by: Jade Cleveland MD 07/29/2024 04:32 PM EDT RP
--- NOTE | ~2024-07-23 | NM_ITS ---
EXAMINATION: BILIARY TRACT IMAGING STUDY CLINICAL INDICATION: Abdominal pain. COMPARISON: Right upper quadrant abdominal ultrasound done on 07/23/[address] scan of the abdomen and pelvis done also on 07/23/2024. TECHNIQUE: Scintillation camera images were obtained over the abdomen for an observation of 60 minutes following the intravenous administration of 5.0 millicuries technetium 99m mebrofenin. The radiotracer was injected through a right antecubital superficial vein without complications.. Delayed images were also obtained up to 2 hours post injection. FINDINGS: There is good concentration of activity in the liver by 5 minutes post injection. However, there is persistent radiotracer activity identified within the bladder for indicative of 4 liver function, appears concordant with the cirrhotic liver morphology is seen on prior ultrasound as well as CT of the abdomen and pelvis done yesterday. Biliary activity is well visualized by 12 minutes, and there is good visualization of small bowel activity by 15 minutes. The gallbladder remains nonvisualized throughout the entire study on the initial 60 and subsequent delayed 120 minutes images. 4 hours delayed images could not be obtained due to patient's refusal and also the patient apparently is scheduled for paracentesis. NM/NM hepatobiliary wo pharm IMPRESSION: 1. Impaired liver function, consistent with clinically known cirrhosis. 2. Visualization of the biliary tree and biliary to bowel transit time appears to be within normal limits. 3. The gallbladder remained nonvisualized on the initial 60 and subsequent 120 minutes delayed images. 4 hours delayed imaging as per our protocol could not be however obtained due to patient's refusal and also patient apparently was scheduled for a paracentesis. Possible differential diagnostic consideration at this point would include physiologic gallbladder contraction versus chronic cholecystitis as well as acute cholecystitis. Alternative imaging modality as appropriate may be considered for further clarification. Alternatively, further delayed imaging including 24 hours delayed imaging may be considered if appropriate for further clarification. Electronically signed by: Cindy Lux MD 07/24/2024 05:00 PM EDT
--- NOTE | ~2024-07-23 | XR_ITS ---
EXAMINATION: Orbits pre-MRI. CLINICAL INDICATION: rule out foreign body in the orbits. COMPARISON: None. FINDINGS: There is no radiopaque foreign bodies seen in the orbits. Visualized maxillofacial and nasal bone including calvarium is unremarkable. There are a few dental fillings seen in the left upper and lower teeth. XR/XR pre mri screening IMPRESSION: No radiopaque metallic foreign bodies seen in the orbits.. Electronically signed by: Fredy Cordova MD 07/24/2024 07:45 PM EDT
--- NOTE | ~2024-07-23 | US_ITS ---
EXAMINATION: US ABDOMEN LIMITED CLINICAL INFORMATION: Pain, ascites. COMPARISON: MRI abdomen 07/26/2024. CT abdomen and pelvis 07/23/2024. Ultrasound abdomen limited 07/23/2024 and 03/01/2024. TECHNIQUE: Real-time imaging of all 4 quadrants. FINDINGS: Trace ascites identified within the 4 quadrants. No soft tissue mass or organized fluid collection. Partially visualized cirrhotic-appearing liver. US/US abdomen limited IMPRESSION: Trace ascites. Electronically signed by: Emmett Blackwell MD 08/02/2024 09:59 AM EDT
--- NOTE | 2024-07-23 11:57 | ED_ITS ---
HPI - General Adult General Chief complaint: ETOH/Substance Use Stated complaint: WEAK,VOMITING X'S WEEKS,H/O LIVER DIS PER EMS Time Seen by Provider: 07/23/24 11:56 Source: patient Mode of arrival: ambulatory Limitations: no limitations History of Present Illness ED Provider: Cynthia HPI narrative: Patient is a 59-year-old male with history of history alcoholic cirrhosis of the liver with ascites and encephalopathy, hyperlipidemia, hypertension, anxiety, depression, portal hypertension, and esophageal varices presenting to the ED with complaint of nausea and vomiting for the past month. States he has not been able to eat or drink anything for the past several days. Does admit to drinking half asleep of nips this morning. Denies history of withdrawal seizures. Denies hematemesis. Denies diarrhea or constipation. Denies fevers. Denies hematochezia or melena. States he has not taken any of his regularly prescribed medications for the past several months as he ran out and has not followed up with PCP. MD complaint: Nausea and vomiting Onset (ago): month(s) Associated symptoms: denies other symptoms Treatments prior to arrival: none Related Data Home Medications ?Medication ?Instructions ?Recorded ?Confirmed propranolol 10 mg tablet 1 tab PO TID 11/11/21 03/20/24 topiramate 200 mg tablet (Topamax) 1 tab PO BID 11/11/21 03/20/24 fluoxetine 20 mg capsule (Prozac) 60 mg PO QAM 02/06/22 03/20/24 furosemide 40 mg tablet 1 tab PO DAILY 10/17/22 03/20/24 tamsulosin 0.4 mg capsule 0.4 mg PO BEDTIME 10/17/22 03/20/24 melatonin 10 mg tablet 10 mg PO BEDTIME Insomnia 11/13/23 03/20/24 mirtazapine 15 mg tablet 15 mg PO BEDTIME 11/13/23 03/20/24 risperidone 2 mg tablet 2 mg PO BEDTIME 12/27/23 03/20/24 ondansetron 4 mg disintegrating 4 mg PO Q8H PRN nausea/vomiting 03/01/24 03/20/24 tablet lactulose 10 gram/15 mL oral 30 ml PO BID PRN Constipation 03/08/24 03/20/24 solution (Constulose) guaifenesin 600 mg tablet, 600 mg PO Q12H 03/20/24 03/20/24 extended release 12 hr (Mucinex) potassium chloride 20 mEq 20 meq PO DAILY 03/20/24 03/20/24 tablet,extended release quetiapine 50 mg tablet (Seroquel) 50 mg PO BID 03/20/24 03/20/24 Previous Rx's ?Medication ?Instructions ?Recorded pantoprazole 40 mg tablet,delayed 40 mg PO BID #60 tabs 12/30/23 release sucralfate 1 gram tablet 1 g PO BIDAC #60 tabs 12/30/23 ammonium lactate 12 % lotion 1 appl topical BID #400 grams 03/05/24 potassium, sodium phosphates 280 1 packet PO TID #9 ea 04/02/24 mg-160 mg-250 mg oral powder packet (Phos-NaK) spironolactone 25 mg tablet 25 mg PO DAILY #30 tabs 04/02/24 (Aldactone) Allergies Allergy/AdvReac Type Severity Reaction Status Date / Time Fish Containing Products Allergy Severe THROAT Verified 07/23/24 12:02 SWELLING peanut [Peanut] Allergy Severe THROAT Verified 07/23/24 12:02 SWELLING Review of Systems 2 Review of Systems: As per HPI Yes all other systems are reviewed and are negative Constitutional: Constitutional: Reports as per HPI PMFSH Past Medical History Medical History Congestive heart failure Anemia ETOH abuse Alcoholic cirrhosis PTSD (post-traumatic stress disorder) Hyponatremia Acute hyponatremia NATHANIEL (acute kidney injury) Acute metabolic encephalopathy [place] Alcoholic cirrhosis of liver with ascites Prostate cancer Depression Hyperlipidemia Hypertension Anxiety Social History Social History Household Members: Spouse Household Members Other:: fiancee Housing: Condominium Do you presently have visiting nurse or other home services: Yes Unable to assess alcohol history related to: Refusing to respond Alcohol intake: former Comment: bilateral wrist restraints for airway safety Patient Tobacco Use Status: Current everyday Tobacco user Tobacco use type: Cigarette Cigarette Packs Per Day: 2 Cigarettes Per Day: 40.0 Years Smoked: 25 e-Cigarette/Vaping Use: Currently Using Second Hand Smoke Exposure: No Substance Use Type: Marijuana Advance Directives: Yes Advance Directives on File: Yes Advance Directives Date on File: 11/11/21 Do you have a plan to hurt others: No Plan service: No Current occupational status: disabled Physical Exam ED Vital Signs: Vital Signs - 24 hr 07/23/24 11:54 07/23/24 14:00 Temperature 98.2 F 97.9 F Pulse Rate 66 58 Respiratory Rate 14 18 Blood Pressure 120/57 L 100/48 L Pulse Oximetry 98 98 Oxygen Delivery Method Room Air Room Air BMI result Body Mass Index 27.7 Vital signs have been reviewed and appear to be correct. Blood pressure normal. Heart rate normal. Respiratory rate normal. Temperature normal. Oxygen saturation normal. Const General: cooperative, no acute distress and ill appearing chronically Orientation/consciousness: oriented to person, oriented to place, oriented to time and patient oriented x3 Limitations: no limitations HENMT Head: Yes normocephalic and Yes atraumatic Ears: external ears normal General nose exam: Normal external nose present Face and sinus: Yes face symmetric Mouth: oropharynx normal and moist mucous membranes Throat: Yes uvula midline Eyes Pupils: Equal, round and reactive pupils present Neck Neck: Yes normal visual inspection and Yes supple Resp Effort & Inspection: normal respiratory effort and able to speak in complete sentences Auscultation: clear to auscultation bilaterally Cardio Rate: regular rate Rhythm: regular rhythm Heart sounds: S1 normal heart sound present and S2 normal heart sound present GI Inspection: Yes distended Palpation (GI): Soft to palpation, nontender and Hepatosplenomegaly present Auscultation: normal bowel sounds General: Yes no CVA tenderness Back/Spine/Pelvis Back: no CVA tenderness Skin General skin exam: elasticity normal, turgor normal and jaundice Neuro General: oriented to person, oriented to place, oriented to time, patient oriented x3, moves all extremities, no focal motor deficits and CN's II-XI intact bilaterally Cranial nerves: Yes Equal, round and reactive pupils present Cognition (Neuro): normal cognition Extrem General: Yes full ROM and Yes no calf tenderness Psych Mental Status: mental status grossly normal Affect: normal affect Thought process: Normal thought process present Medications Administered Discontinued Medications Generic Name Dose Route Start Last Admin Trade Name Freq PRN Reason Stop Dose Admin Potassium Chloride 10 meq in 100 mls @ 100 mls/hr 07/23/24 13:00 07/23/24 15:21 Potassium Chloride/H20 IV 07/23/24 14:59 100 mls/hr Q1H KULWANT Administration Sodium Chloride 500 mls @ 500 mls/hr 07/23/24 13:30 07/23/24 14:52 Ns IV 07/23/24 14:29 Infused .Q1H KULWANT Infusion Ondansetron HCl 4 mg 07/23/24 12:45 07/23/24 13:32 Ondansetron Hcl 4 Mg/2 Ml Vial IVPUSH 07/23/24 12:46 4 mg ONCE ONE Administration Medical Decision Making Medical Decision Making [facility] Narrative: Patient is a 59-year-old male with history of history alcoholic cirrhosis of the liver with ascites and encephalopathy, hyperlipidemia, hypertension, anxiety, depression, portal hypertension, and esophageal varices presenting to the ED with complaint of nausea and vomiting for the past month. On exam patient is awake, A+Ox3, VS WNL, afebrile, normal neurological exam without focal deficits, physical exam findings as above. Given reported symptoms and physical exam findings, initial differential includes gastritis, dehydration, electrolyte abnormality, splenomegaly secondary to cirrhosis, alcohol withdrawal, elevated pneumonia, cholelithiasis, choledocolithiasis. Less likely bowel obstruction as patient reports having normal bowel movements. Unlikely SBP as he is afebrile, denies fevers at home. Labs notable for thrombocytopenia, anemia not at transfusible level, hypokalemia, hyponatremia, hypocalcemia. IV potassium ordered. Patient signed out to GENESIS Guardado pending ultrasound results. Feel patient will likely require admission, discussed this with patient and he is agreeable to this. Differential Diagnosis Differential Diagnoses: The differential diagnosis associated with the presentation includes As per [facility] Admission/Observation Consideration of admission/observation: Escalation of care including admission/observation considered Lab Data [facility] Lab Attestation statement: I reviewed the patient's lab results. As per [facility] 07/23/24 12:28 07/23/24 12:28 Labs: Lab Results 07/23/24 07/23/24 Range/Units 12:28 12:52 WBC 5.9 (4.8-10.8) X10*3/uL RBC 3.20 L (4.60-5.80) X10*6/uL Hgb 10.7 L (14.0-18.0) g/dl Hct 30.6 L (42.0-52.0) % MCV 95.6 (80.0-98.0) fL MCH 33.4 H (27.0-33.0) pg MCHC 35.0 (31.0-36.0) g/dl RDW 21.1 H (11.0-16.0) % Plt Count 68 L D (160-400) X10*3/uL MPV 9.4 (9.4-12.4) fL Immature Gran % (Auto) 1.0 H (0.0-0.4) % Neut % (Auto) 69.9 (45-73) % Lymph % (Auto) 16.0 L (20-40) % O'Brien % (Auto) 9.1 (2-11) % Eos % (Auto) 3.5 (0-4) % Baso % (Auto) 0.5 (0-2) % Lymph # (Auto) 1.0 L (1.2-4.9) X10*3/uL O'Brien # (Auto) 0.5 (0.1-1.2) X10*3/uL Eos # (Auto) 0.2 (0.0-0.4) X10*3/uL Baso # (Auto) 0.0 (0.0-0.2) X10*3/uL Abs Immat Gran (auto) 0.06 H (0.00-0.03) X10*3/uL Absolute Neuts (auto) 4.1 (2.0-8.3) x10*3/uL Absolute Nucleated RBC 0.000 (0.0-0.012) X10*3/uL Nucleated RBC % (auto) 0.0 (0.0-0.2) /100WBC PT 17.7 H (10.9-12.4) SEC INR 1.5 H (0.9-1.1) Sodium 129 L (135-145) mmol/L Potassium 2.4 L* D (3.3-5.1) mmol/L Chloride 85 L D (96-108) mmol/L Carbon Dioxide 31 H (22-29) mmol/L Anion Gap 15 (12-20) BUN 7 L (9-16) mg/dL Creatinine 0.72 (0.5-1.4) mg/dL Estim Creat Clear Calc 115.7 Estimated GFR > 60 Random Glucose 109 (60-115) mg/dL Calcium 7.8 L D (8.4-10.2) mg/dL Magnesium 2.1 (1.6-2.6) mg/dL Total Bilirubin 9.7 H (0.0-1.0) mg/dL Direct Bilirubin 5.2 H (0.0-0.5) mg/dL AST 148 H (5-37) U/L ALT 58 H (0-40) U/L Alkaline Phosphatase 172 H (39-117) U/L Ammonia 46 (13-55) umol/L Total Protein 6.9 (6.5-8.0) g/dL Albumin 2.2 L (3.5-5.0) g/dL Amylase 30 (28-100) U/L Lipase 19 (8-78) U/L Ethyl Alcohol 31 mg/dL Influenza Type A (PCR) NEGATIVE (Negative) Influenza Type B (PCR) NEGATIVE (Negative) RSV RNA Qual (PCR) NEGATIVE (Negative) SARS-CoV-2 RNA (RT-PCR) NEGATIVE (Negative) External Record Review External record reviewed: Inpatient record, Office record and Outpatient record Discharge Plan Discharge Clinical Impression: Acute hypokalemia, Hyponatremia, Nausea & vomiting, Thrombocytopenia Patient Disposition: Still a Patient Prescriptions: No Action propranolol 10 mg tablet 1 tab PO TID topiramate [Topamax] 200 mg tablet 1 tab PO BID tamsulosin 0.4 mg capsule 0.4 mg PO BEDTIME furosemide 40 mg tablet 1 tab PO DAILY fluoxetine [Prozac] 20 mg capsule 60 mg PO QAM mirtazapine 15 mg tablet 15 mg PO BEDTIME melatonin 10 mg tablet 10 mg PO BEDTIME risperidone 2 mg Tablet 2 mg PO BEDTIME sucralfate 1 gram Tablet 1 g PO BIDAC Qty: 60 0RF pantoprazole 40 mg tablet,delayed release (DR/EC) 40 mg PO BID Qty: 60 0RF ondansetron 4 mg tablet,disintegrating 4 mg PO Q8H PRN (Reason: nausea/vomiting) ammonium lactate 12 % Lotion 1 appl topical BID Qty: 400 2RF Protocol: Apply to: Apply to: Whole body lactulose [Constulose] 10 gram/15 mL solution 30 ml PO BID PRN (Reason: Constipation) potassium chloride 20 mEq tablet extended release 20 meq PO DAILY quetiapine [Seroquel] 50 mg tablet 50 mg PO BID guaifenesin [Mucinex] 600 mg tablet extended release 12hr 600 mg PO Q12H spironolactone [Aldactone] 25 mg tablet 25 mg PO DAILY Qty: 30 0RF potassium, sodium phosphates [Phos-NaK] 280-160-250 mg Powder In Packet 1 packet PO TID Qty: 9 0RF Print Language: Malay
--- NOTE | 2024-07-23 11:58 | ECG_ITS ---
Test Reason : cirrhosis Blood Pressure : / mmHG Vent. Rate : 064 BPM Atrial Rate : 064 BPM P-R Int : 198 ms QRS Dur : 122 ms QT Int : 482 ms P-R-T Axes : 042 -25 022 degrees QTc Int : 497 ms Normal sinus rhythm Non-specific intra-ventricular conduction delay Minimal voltage criteria for LVH, may be normal variant ( [place] product ) Borderline ECG When compared with ECG of 20-MAR-2024 00:32, Minimal criteria for Anterior infarct are no longer Present Nonspecific T wave abnormality no longer evident in Lateral leads Referred By: Erica Marie Electronically Signed By:ELIECER RAWSL MD
[2024-07-23 12:35] LABS: MANUAL DIFF FLAG NO
[2024-07-23 12:38] LABS: Basophils Percent Auto 0.5 % (0-2); Eosinophils Absolute Auto 0.2 X10*3/uL (0.0-0.4); Eosinophils Percent Auto 3.5 % (0-4); Hematocrit 30.6 % (42.0-52.0); Hemoglobin 10.7 g/dl (14.0-18.0); Imm Gran Abs Auto 0.06 X10*3/uL (0.00-0.03); Mean Corpuscular Hemoglobin 33.4 pg (27.0-33.0); Mean Corpuscular Volume 95.6 fL (80.0-98.0); Mean Platelet Volume 9.4 fL (9.4-12.4); Monocytes Absolute Auto 0.5 X10*3/uL (0.1-1.2); Monocytes Percent Auto 9.1 % (2-11); Neutrophils Absolute Auto 4.1 x10*3/uL (2.0-8.3); Neutrophils Percent Auto 69.9 % (45-73); Platelet Count 68 X10*3/uL (160-400); Red Cell Distribution Width 21.1 % (11.0-16.0); White Blood Count 5.9 X10*3/uL (4.8-10.8)
[2024-07-23 12:44] LABS: INTERNATIONAL NORM RATIO 1.5 (0.9-1.1); Prothrombin Time 17.7 SEC (10.9-12.4)
[2024-07-23 12:56] LABS: Alanine Aminotransferase 58 U/L (0-40); Albumin Level 2.2 g/dL (3.5-5.0); Alkaline Phosphatase 172 U/L (39-117); Anion Gap 15 (12-20); Aspartate Amino Transferase 148 U/L (5-37); Bilirubin Total 9.7 mg/dL (0.0-1.0); Blood Urea Nitrogen 7 mg/dL (9-16); Calcium 7.8 mg/dL (8.4-10.2); Carbon Dioxide 31 mmol/L (22-29); Chloride 85 mmol/L (96-108); Creatinine Clr Calc Pharmacy 115.7; Estimated Glomerular Filt Rate > 60; Ethanol 31 mg/dL; Glucose Random 109 mg/dL (60-115); Lipase 19 U/L (8-78); Magnesium 2.1 mg/dL (1.6-2.6); Potassium 2.4 mmol/L (3.3-5.1); Sodium 129 mmol/L (135-145); Total Protein 6.9 g/dL (6.5-8.0)
--- NOTE | 2024-07-23 13:12 | MHC.EDTECH ---
Patient stating they are not able to to give a urine sample. Iliana MARCOS aware.
[2024-07-23 13:15] LABS: Influenza A PCR NEGATIVE (Negative); Influenza B PCR NEGATIVE (Negative); Resp Syncy Virus RNA Qual PCR NEGATIVE (Negative); SARS COV2 PCR INHOUSE NEGATIVE (Negative)
[2024-07-23 13:16] LABS: Amylase 30 U/L (28-100)
[2024-07-23 13:16] LABS: Ammonia 46 umol/L (13-55)
[2024-07-23] MEDS: ondansetron HCL 4 MG/2 ML VIAL IVPUSH (13:32)
[2024-07-23] MEDS: 0.9 % Sodium Chloride 500 ML IV (13:32)
[2024-07-23] MEDS: Potassium Chloride/H20 10 MEQ/100 ML PIGGYBACK 100 MEQ IV ×2 (13:33→15:21)
[2024-07-23 14:13] LABS: Bilirubin Direct 5.2 mg/dL (0.0-0.5)
[2024-07-23 16:24] LABS: Appearance Urine Hazy; Color Urine Orange; Leukocyte Esterase Urine Trace (Negative); PH 6.5 (5.0-9.0); Specific Gravity - Urine >= 1.030 (1.005-1.025); UMIC TRIGGER UACC YES
[2024-07-23 17:04] LABS: Amphetamine Screen Urine Not Detected (Not Detect); Barbiturates, Urine Not Detected (Not Detect); Benzodiazepines Screen Urine Not Detected (Not Detect); Buprenorphine Scr Not Detected (Not Detect); Cannabinoid Screen Urine POSITIVE (Not Detect); Cocaine Screen Urine Not Detected (Not Detect); Fentanyl, urine Not Detected (Not Detect); Methadone Screen, Urine Not Detected (Not Detect); Opiate Screen Urine Not Detected (Not Detect); Oxycodone Screen Urine Not Detected (Not Detect); Phencyclidine Screen Urine Not Detected (Not Detect)
[2024-07-23 17:21] LABS: Bacteria Urine None Seen (None Seen); Hyaline Casts Urine 0-2 /LPF (0-2); RBC Urine 0-2 /HPF (0-2); WBC Urine 0-5 /HPF (0-5)
--- NOTE | 2024-07-23 18:59 | PC.NURSE ---
Report given to Carola Hyde RN
--- NOTE | 2024-07-23 19:37 | PHA.MEDREC ---
Pharmacy Consult ? Medication Reconciliation Pharmacy has completed the medication reconciliation. Per pt's pt has not taken any of his meds in a few months. Med list obtained from pt's pharmacy from what pt may have previously been taking
[2024-07-23] MEDS: iohexoL 350 MG/ML 100 ML INFUS..BTL 85 ML IV (19:42)
--- NOTE | 2024-07-23 23:34 | PM.IMHP ---
History of Present Illness Date of Service: 07/23/24 Chief Complaint: Abd pain, nausea/vomiting This is a 58-year-old male with pertinent history of alcohol use disorder with alcoholic liver cirrhosis, mood disorder, gastroesophageal reflux disease, BPH who presents to the emergency department for evaluation of abdominal pain, nausea and vomiting. Patient states symptoms have been ongoing for for the last 1 month. He has been having abdominal discomfort which was initially intermittent but progressed to being constant, nonradiating and without any relieving factors. Also has been having multiple episodes of nausea and nonbloody emesis. Unable to tolerate p.o. intake due to his symptoms. No loose stools, hematemesis, melena or hematochezia. Patient states he has not taken his prescription medications in the last 2 months as he ran out of them. No fever, chills, chest pain, palpitations, shortness of breath, changes in urinary habits. Does endorse abdominal distention. In the emergency department, serum potassium was found to be low. Imaging concerning for gallbladder wall thickening and General surgery was consulted who requested admission with HIDA scan Review of Systems Constitutional: Constitutional: Reports fatigue, Reports malaise, Reports poor appetite, Reports weakness and Reports weight loss Cardiovascular: Cardiovascular: Reports no additional cardiovascular complaints Respiratory: Respiratory: Reports no additional respiratory complaints Gastrointestinal: Gastrointestinal: Reports abdominal pain, Reports nausea and Reports vomiting Genitourinary: Genitourinary: Reports no additional male genitourinary complaints Neurologic: Reports weakness Endocrine: Endocrine: Reports fatigue [facility] Medical History Congestive heart failure Anemia ETOH abuse Alcoholic cirrhosis PTSD (post-traumatic stress disorder) Hyponatremia Acute hyponatremia NATHANIEL (acute kidney injury) Acute metabolic encephalopathy [place] Alcoholic cirrhosis of liver with ascites Prostate cancer Depression Hyperlipidemia Hypertension Anxiety Social History Household Members: Spouse Household Members Other:: fiancee Housing: Condominium Do you presently have visiting nurse or other home services: Yes Unable to assess alcohol history related to: Refusing to respond Alcohol intake: former Comment: bilateral wrist restraints for airway safety Patient Tobacco Use Status: Current everyday Tobacco user Tobacco use type: Cigarette Cigarette Packs Per Day: 2 Cigarettes Per Day: 40.0 Years Smoked: 25 Smoked in Last 30 Days: No e-Cigarette/Vaping Use: Currently Using Second Hand Smoke Exposure: No Substance Use Type: Marijuana Advance Directives: Yes Advance Directives on File: Yes Advance Directives Date on File: 11/11/21 Do you have a plan to hurt others: No Plan service: No Current occupational status: disabled Meds Allergies Allergy/AdvReac Type Severity Reaction Status Date / Time Fish Containing Products Allergy Severe THROAT Verified 07/23/24 12:02 SWELLING peanut [Peanut] Allergy Severe THROAT Verified 07/23/24 12:02 SWELLING Active Medications: Current Medications Potassium Chloride (Potassium Chloride/H20) 10 meq in 100 mls @ 100 mls/hr IV Q1H KULWANT Stop: 07/24/24 03:44 Home Medications ?Medication ?Instructions ?Recorded ?Confirmed ?Last Taken ?Type melatonin 10 mg tablet 10 mg PO BEDTIME Insomnia 11/13/23 07/23/24 Unknown History mirtazapine 15 mg tablet 15 mg PO BEDTIME 11/13/23 07/23/24 02/22/24 History potassium chloride 20 mEq 20 meq PO DAILY 03/20/24 07/23/24 Unknown History tablet,extended release quetiapine 50 mg tablet (Seroquel) 50 mg PO DAILY 03/20/24 07/23/24 Unknown History spironolactone 100 mg tablet 100 mg PO DAILY 07/23/24 07/23/24 Unknown History tamsulosin 0.4 mg capsule 0.4 mg PO BEDTIME 07/23/24 07/23/24 Unknown History topiramate 200 mg tablet 200 mg PO BID 07/23/24 07/23/24 Unknown History Physical Exam Vital Signs and Narrative: Vital Signs: Last Vital Signs Temp 97.9 F 07/23/24 23:03 Pulse 69 07/23/24 23:03 Resp 16 07/23/24 23:03 BP 115/52 L 07/23/24 23:03 Pulse Ox 97 07/23/24 23:03 O2 Del Method Room Air 07/23/24 23:03 BMI result Body Mass Index 27.7 Middle-aged male lying in bed in no distress Neck supple, no JVD, Regular rate and rhythm, S1-S2 heard Regular breath sounds bilaterally, no wheezing or crackles appreciated Abdomen with mild distention and tenderness, no rigidity Patient is awake, alert and oriented to self, place, time and person ; no focal motor deficit Psych: Normal mood Results Labs 07/23/24 12:28 07/23/24 12:28 Labs: Laboratory Results - last 24 hr 07/23/24 07/23/24 07/23/24 12:28 12:52 16:13 MCV 95.6 MCH 33.4 H MCHC 35.0 RDW 21.1 H Plt Count 68 L D MPV 9.4 Immature Gran % (Auto) 1.0 H Neut % (Auto) 69.9 Lymph % (Auto) 16.0 L Hardeman % (Auto) 9.1 Eos % (Auto) 3.5 Baso % (Auto) 0.5 Lymph # (Auto) 1.0 L Hardeman # (Auto) 0.5 Eos # (Auto) 0.2 Baso # (Auto) 0.0 Abs Immat Gran (auto) 0.06 H Absolute Neuts (auto) 4.1 Absolute Nucleated RBC 0.000 Nucleated RBC % (auto) 0.0 PT 17.7 H INR 1.5 H Anion Gap 15 Estim Creat Clear Calc 115.7 Estimated GFR > 60 Random Glucose 109 Calcium 7.8 L D Magnesium 2.1 Total Bilirubin 9.7 H Direct Bilirubin 5.2 H AST 148 H ALT 58 H Alkaline Phosphatase 172 H Ammonia 46 Total Protein 6.9 Albumin 2.2 L Amylase 30 Lipase 19 Urine Color [place] Urine Appearance Hazy Urine pH 6.5 Ur Specific Fonda >= 1.030 H Urine Protein See Note Urine Glucose (UA) See Note Urine Ketones See Note Urine Blood See Note Urine Nitrite See Note Ur Leukocyte Esterase Trace H Urine RBC 0-2 Urine WBC 0-5 Ur Squamous Epith Cells 11-20 Urine Bacteria None Seen Hyaline Casts 0-2 Urine Opiates Screen Not Detected Ur Buprenorphine Scrn Not Detected Ur Oxycodone Screen Not Detected Urine Methadone Screen Not Detected Urine Fentanyl Screen Not Detected Ur Barbiturates Screen Not Detected Ur Phencyclidine Scrn Not Detected Ur Amphetamines Screen Not Detected U Benzodiazepines Scrn Not Detected Urine Cocaine Screen Not Detected U Marijuana (THC) Screen POSITIVE H Ethyl Alcohol 31 Influenza Type A (PCR) NEGATIVE Influenza Type B (PCR) NEGATIVE RSV RNA Qual (PCR) NEGATIVE SARS-CoV-2 RNA (RT-PCR) NEGATIVE Imaging Radiologist's Impressions: Impressions Abdomen Ultrasound 07/23/24 14:00 IMPRESSION: 1. Very limited examination secondary to patient body habitus, pain and shadowing from overlying bowel gas. 2. Cirrhotic liver morphology with hepatofugal flow of the main portal vein and small volume of ascites most consistent with portal hypertension. 3. Mild gallbladder wall thickening and trace pericholecystic free fluid are indeterminate in the context of cirrhosis, portal hypertension and ascites. Internal echogenic bile and sludge are seen, however no discrete posterior shadowing calculi are visualized. Electronically signed by: Jade Cleveland MD 07/23/2024 05:07 PM EDT RP Abdomen/Pelvis CT 07/23/24 19:26 IMPRESSION: *Cirrhosis with mild-moderate ascites and anasarca. The quantity of ascites and degree of anasarca are both mildly increased compared with 05/22/2024. *Cholelithiasis. Multiple calcified gallstones within the dependent portion of the gallbladder lumen. The common bile duct currently measures 10 mm diameter increased in caliber compared with 05/22/2024. No intrahepatic biliary duct dilatation identified. Increased caliber of the common bile duct could be secondary to choledocholithiasis or dysfunction at the sphincter of Trevin. Mild diffuse gallbladder wall thickening is present but is a nonspecific finding in the setting of ascites. *Unchanged splenorenal varices consistent with underlying portal hypertension. *Trace left pleural effusion and mild left base compressive atelectasis similar findings present 05/22/2024. Electronically signed by: Franco Sal MD 07/23/2024 11:04 PM EDT RP Assessment and Plan (1) Nausea & vomiting: Status: Acute (2) Abdominal pain: Status: Acute Plan This is a 58-year-old male with pertinent history of alcohol use disorder with alcoholic liver cirrhosis, mood disorder, gastroesophageal reflux disease, BPH who presents to the emergency department for evaluation of abdominal pain, nausea and vomiting. #. Abdominal pain/nausea and vomiting: Imaging with gallbladder wall thickening. General surgery was consulted who requested admission with HIDA scan. Can not rule out SBP in a patient with decompensated cirrhosis. Will initiate empiric IV antibiotics. Diagnostic paracentesis in a.m.. Ascitic fluid labs pending #. Decompensated alcoholic liver cirrhosis with ascites: Due to noncompliance with medications. Restart diuretics #. Conjugated hyperbilirubinemia with elevated transaminases: Dilated CBD on imaging. Obtaining MRCP. Other differential is intrahepatic cholestasis due to alcohol induced liver injury #. Alcohol use disorder: Monitor CIWA. Ordered thiamine #. Hypokalemia due to poor p.o. intake: Repleted #. Hyponatremia due to cirrhosis #. Mood disorder: Resume home mood stabilizers once able to take p.o. #. Thrombocytopenia due to cirrhosis: Defer prophylactic Lovenox Med rec pending DVT prophylaxis: Mechanical Full code Admit as inpatient and will require two night minimum hospital stay for IV antibiotics, pending imaging studies (as above), which is not possible in a lesser acute setting. Quality Stroke Does the patient have a stroke diagnosis?: No VTE Prior VTE?: No VTE Risk Level:: Medical - moderate - high VTE Device Contraindication: N/A - Device Ordered VTE Drug Contraindication: Treatment Not Indicated
[2024-07-23] MEDS: cefTRIAXone sodium 2 GM in 0.9 % Sodium Chloride 50 ML IV (23:56)
[2024-07-24] MEDS: metroNIDAZOLE/NS 500 MG/100 ML PIGGYBACK 100 MG IV ×3 (00:14→17:07)
[2024-07-24 00:15] VITALS: BP 100/49; PULSE 63; RESP 14; TEMP 36.6; O2SAT 95
[2024-07-24] MEDS: ondansetron HCL 4 MG/2 ML VIAL IVPUSH ×2 (00:25→20:43)
[2024-07-24] MEDS: Potassium Chloride/H20 10 MEQ/100 ML PIGGYBACK 100 MEQ IV ×8 (00:29→15:32)
[2024-07-24] MEDS: Thiamine HCL 100 MG in 0.9 % Sodium Chloride 100 ML 202 MG IV (01:24)
[2024-07-24 03:37] VITALS: BP 104/48; PULSE 79; RESP 16; TEMP 36.6; O2SAT 95
[2024-07-24] MEDS: Melatonin 3 MG TABLET 6 MG PO (03:58)
[2024-07-24 05:10] LABS: MANUAL DIFF FLAG NO
[2024-07-24 05:13] LABS: Basophils Percent Auto 0.3 % (0-2); Eosinophils Absolute Auto 0.2 X10*3/uL (0.0-0.4); Eosinophils Percent Auto 3.2 % (0-4); Hematocrit 28.1 % (42.0-52.0); Hemoglobin 9.5 g/dl (14.0-18.0); Imm Gran Abs Auto 0.02 X10*3/uL (0.00-0.03); Imm Gran Pct Auto 0.3 % (0.0-0.4); Lymphocytes Absolute Auto 0.8 X10*3/uL (1.2-4.9); Lymphocytes Percent Auto 13.5 % (20-40); Mean Corpuscular HGB Conc 33.8 g/dl (31.0-36.0); Mean Corpuscular Hemoglobin 32.9 pg (27.0-33.0); Mean Corpuscular Volume 97.2 fL (80.0-98.0); Mean Platelet Volume 9.5 fL (9.4-12.4); Monocytes Absolute Auto 0.6 X10*3/uL (0.1-1.2); Monocytes Percent Auto 10.2 % (2-11); Neutrophils Absolute Auto 4.3 x10*3/uL (2.0-8.3); Neutrophils Percent Auto 72.5 % (45-73); Red Blood Count 2.89 X10*6/uL (4.60-5.80); Red Cell Distribution Width 21.4 % (11.0-16.0); White Blood Count 5.9 X10*3/uL (4.8-10.8)
[2024-07-24 05:15] LABS: Platelet Count 62 X10*3/uL (160-400)
[2024-07-24 05:32] LABS: Alanine Aminotransferase 53 U/L (0-40); Alkaline Phosphatase 160 U/L (39-117); Anion Gap 11 (12-20); Aspartate Amino Transferase 145 U/L (5-37); Bilirubin Total 9.7 mg/dL (0.0-1.0); Blood Urea Nitrogen 7 mg/dL (9-16); Calcium 7.6 mg/dL (8.4-10.2); Carbon Dioxide 33 mmol/L (22-29); Chloride 89 mmol/L (96-108); Creatinine Clr Calc Pharmacy 120.7; Estimated Glomerular Filt Rate > 60; Glucose Random 99 mg/dL (60-115); Potassium 2.9 mmol/L (3.3-5.1); Sodium 130 mmol/L (135-145); Total Protein 6.3 g/dL (6.5-8.0)
[2024-07-24 08:00] VITALS: BP 109/58; PULSE 66; RESP 18; TEMP 36.9; O2SAT 98
--- NOTE | 2024-07-24 08:04 | PC.NURSE ---
delay in potassium administration due to none stocked in department
[2024-07-24 08:14] LABS: C Reactive Protein 2.74 mg/dL (< or = 0.50)
[2024-07-24] MEDS: 0.9 % Sodium Chloride 1,000 ML 125 ML IVCONT ×2 (08:52→18:04)
--- NOTE | 2024-07-24 11:37 | P.PNIM_ITS ---
Subjective Subjective Date of Service: 07/24/24 Interval History: abd pain improved abd distended still drinking EtOH no confusion Review of Systems Review of Systems: Yes all other systems are reviewed and are negative Physical Exam 2 Vital Signs: Vital Signs: Last Vital Signs Temp 98.4 F 07/24/24 08:00 Pulse 66 07/24/24 08:00 Resp 18 07/24/24 08:00 BP 109/58 L 07/24/24 08:00 Pulse Ox 98 07/24/24 08:00 O2 Del Method Room Air 07/24/24 08:00 BMI result Body Mass Index 27.7 Gen: in no acute distress HEENT: sclera icteric, moist mucus membranes Neck: supple Lungs: clear to auscultation bilaterally Heart: regular rate and rhythm, no murmurs Abd: tense ascites, minimal tenderness Ext: no edema Skin: warm/well-perfused, jaundiced Neuro: alert and oriented x3, no focal findings, no asterixis Psych: appropriate affect Objective Data Active Medications Acetaminophen (Acetaminophen 325 Mg Tablet) 650 mg PO Q6H PRN PRN Reason: Pain, Mild (Pain Scale 1-3), fever or headache Calcium Carbonate (Calcium Carbonate 750 Mg Tab.Chew) 750 mg PO Q4H PRN PRN Reason: Heartburn Ceftriaxone Sodium 2 gm/ (Sodium Chloride) 50 mls @ 100 mls/hr IV Q24H [facility] Last Infusion: 07/24/24 00:25 Dose: Infused Documented By: KHALIF-CECIL Metronidazole (Flagyl) 500 mg in 100 mls @ 100 mls/hr IV Q8H [facility] Last Admin: 07/24/24 08:48 Dose: 100 mls/hr Documented By: NAS Sodium Chloride (Ns) 1,000 mls @ 125 mls/hr IVCONT .Q8H [facility] Last Admin: 07/24/24 08:52 Dose: 125 mls/hr Documented By: NAS Magnesium Hydroxide (Milk Of Magnesia 30 Ml Oral.Susp) 30 ml PO DAILY PRN PRN Reason: Constipation Melatonin (Melatonin 3 Mg Tablet) 9 mg PO BEDTIME [facility] Mirtazapine (Mirtazapine 15 Mg Tablet) 15 mg PO BEDTIME [facility] Ondansetron HCl (Ondansetron Hcl 4 Mg/2 Ml Vial) 4 mg IVPUSH Q8H PRN PRN Reason: Nausea and Vomiting Last Admin: 07/24/24 00:25 Dose: 4 mg Documented By: YEYO Potassium Chloride (Potassium Chloride Er 20 Meq Tab.Er.Prt) 40 meq PO DAILY [facility] Last Admin: 07/24/24 08:51 Dose: Not Given Documented By: NAS Non-Admin Reason: NPO Quetiapine Fumarate (Quetiapine Fumarate 50 Mg Tablet) 50 mg PO DAILY [facility] Last Admin: 07/24/24 08:51 Dose: Not Given Documented By: NAS Non-Admin Reason: NPO Sodium Chloride (0.9 % Sodium Chloride Flush 3 Ml Syringe) 3 ml IVFLUSH QSHIFT [facility] Last Admin: 07/24/24 08:51 Dose: Not Given Documented By: NAS Non-Admin Reason: IV Running Spironolactone (Spironolactone 25 Mg Tablet) 100 mg PO DAILY [facility]; Protocol Last Admin: 07/24/24 08:51 Dose: Not Given Documented By: NAS Non-Admin Reason: NPO Tamsulosin HCl (Tamsulosin Hcl 0.4 Mg Capsule) 0.4 mg PO BEDTIME [facility] Topiramate (Topiramate 100 Mg Tablet) 200 mg PO BID [facility] Last Admin: 07/24/24 08:51 Dose: Not Given Documented By: NAS Non-Admin Reason: NPO Labs 07/24/24 04:50 07/24/24 04:50 Labs: Laboratory Results - last 24 hr 07/23/24 07/23/24 07/23/24 12:28 12:52 16:13 MCV 95.6 MCH 33.4 H MCHC 35.0 RDW 21.1 H Plt Count 68 L D MPV 9.4 Immature Gran % (Auto) 1.0 H Neut % (Auto) 69.9 Lymph % (Auto) 16.0 L Holt % (Auto) 9.1 Eos % (Auto) 3.5 Baso % (Auto) 0.5 Lymph # (Auto) 1.0 L Holt # (Auto) 0.5 Eos # (Auto) 0.2 Baso # (Auto) 0.0 Abs Immat Gran (auto) 0.06 H Absolute Neuts (auto) 4.1 Absolute Nucleated RBC 0.000 Nucleated RBC % (auto) 0.0 PT 17.7 H INR 1.5 H Anion Gap 15 Estim Creat Clear Calc 115.7 Estimated GFR > 60 Random Glucose 109 Calcium 7.8 L D Magnesium 2.1 Total Bilirubin 9.7 H Direct Bilirubin 5.2 H AST 148 H ALT 58 H Alkaline Phosphatase 172 H Ammonia 46 C-Reactive Protein Total Protein 6.9 Albumin 2.2 L Amylase 30 Lipase 19 Urine Color [place] Urine Appearance Hazy Urine pH 6.5 Ur Specific Susan >= 1.030 H Urine Protein See Note Urine Glucose (UA) See Note Urine Ketones See Note Urine Blood See Note Urine Nitrite See Note Ur Leukocyte Esterase Trace H Urine RBC 0-2 Urine WBC 0-5 Ur Squamous Epith Cells 11-20 Urine Bacteria None Seen Hyaline Casts 0-2 Urine Opiates Screen Not Detected Ur Buprenorphine Scrn Not Detected Ur Oxycodone Screen Not Detected Urine Methadone Screen Not Detected Urine Fentanyl Screen Not Detected Ur Barbiturates Screen Not Detected Ur Phencyclidine Scrn Not Detected Ur Amphetamines Screen Not Detected U Benzodiazepines Scrn Not Detected Urine Cocaine Screen Not Detected U Marijuana (THC) Screen POSITIVE H Ethyl Alcohol 31 Influenza Type A (PCR) NEGATIVE Influenza Type B (PCR) NEGATIVE RSV RNA Qual (PCR) NEGATIVE SARS-CoV-2 RNA (RT-PCR) NEGATIVE 07/24/24 04:50 MCV 97.2 MCH 32.9 MCHC 33.8 RDW 21.4 H Plt Count 62 L MPV 9.5 Immature Gran % (Auto) 0.3 Neut % (Auto) 72.5 Lymph % (Auto) 13.5 L Holt % (Auto) 10.2 Eos % (Auto) 3.2 Baso % (Auto) 0.3 Lymph # (Auto) 0.8 L Holt # (Auto) 0.6 Eos # (Auto) 0.2 Baso # (Auto) 0.0 Abs Immat Gran (auto) 0.02 Absolute Neuts (auto) 4.3 Absolute Nucleated RBC 0.000 Nucleated RBC % (auto) 0.0 PT INR Anion Gap 11 L Estim Creat Clear Calc 120.7 Estimated GFR > 60 Random Glucose 99 Calcium 7.6 L Magnesium Total Bilirubin 9.7 H Direct Bilirubin AST 145 H ALT 53 H Alkaline Phosphatase 160 H Ammonia C-Reactive Protein 2.74 H Total Protein 6.3 L Albumin 2.0 L Amylase Lipase Urine Color Urine Appearance Urine pH Ur Specific Susan Urine Protein Urine Glucose (UA) Urine Ketones Urine Blood Urine Nitrite Ur Leukocyte Esterase Urine RBC Urine WBC Ur Squamous Epith Cells Urine Bacteria Hyaline Casts Urine Opiates Screen Ur Buprenorphine Scrn Ur Oxycodone Screen Urine Methadone Screen Urine Fentanyl Screen Ur Barbiturates Screen Ur Phencyclidine Scrn Ur Amphetamines Screen U Benzodiazepines Scrn Urine Cocaine Screen U Marijuana (THC) Screen Ethyl Alcohol Influenza Type A (PCR) Influenza Type B (PCR) RSV RNA Qual (PCR) SARS-CoV-2 RNA (RT-PCR) Assessment and Plan (1) Thrombocytopenia: Status: Acute (2) Hyponatremia: Status: Acute Plan d2 for 59yo M with decompensated EtOH cirrhosis + hx prostate CA presenting with abd pain, N/V for past 1 mo, noncompliant with meds x 2mo found to have ascites, hypoK, GB wall thickening hypoK - replete IV/PO, recheck in AM ascites - plan diagnostic paracentesis; on empiric ceftriaxone + metronidazole; ascites fluid studies ordered; continue spironolactone GB wall thickening CBD dilation - could be due to cirrhosis; on IV ABX pending Surg consultation and HIDA scan and MRCP AUD - Addiction Medicine consultation, CIWA scale, thiamine - continue topiramate prostatism - tamsulosin mood disorder - quetiapine + mirtazapine thrombocytopenia due to cirrhosis - monitor CBC VTE ppx - SCDs; no heparin given low plts dispo - TBD In my clinical judgment, the patient requires continued inpatient hospitalization for the following reasons: low electrolytes, IV ABX Total time managing care of this patient today: 45 minutes. Quality Stroke Does the patient have a stroke diagnosis?: No VTE Prior VTE?: No VTE Risk Level:: Medical - moderate - high VTE Device Contraindication: N/A - Device Ordered VTE Drug Contraindication: Treatment Not Indicated
--- NOTE | 2024-07-24 13:01 | MHC.CM.PN ---
IMM DELIVERED PT LIVES WITH S/O. PT USES WALKER/CANE NEEDED. +DRIVES. NO SERVICES CURRENTLY BUT OPEN TO [facility] SHOULD THAT BE RECOMMENDED. FIRST CHOICE [facility]. +HCP ON FILE AND VERIFIED. PCP DR. PHAM. DP: HOME NO SERVICES VS HOME WITH SERVICES. S/O WILL TRANSPORT. CM WILL CONTINUE TO FOLLOW FOR ANY CHANGE TO DC PLAN/NEEDS.
--- NOTE | 2024-07-24 13:37 | MHC.RECOVRN ---
AUDIT-C Brief Intervention Pt had positive screen for unhealthy alcohol use on admission. Attempted to meet with pt to discuss alcohol use and offer resources, pt declined.
[2024-07-24] MEDS: Calcium Carbonate 750 MG TAB.CHEW PO ×2 (13:43→22:49)
[2024-07-24 14:08] VITALS: BMI 27.7
--- NOTE | 2024-07-24 14:20 | MHC.CLN ---
NUTRITION CURRENTLY NPO. SIGNIFICANT WEIGHT LOSS X 2 MONTHS. POOR PO REPORTED X ONE MONTH DUE TO NAUSEA AND VOMITING. ASCITES DUE TO DECOMPENSATED ALCOHOLIC LIVER CIRRHOSIS. QUALIFIES MODERATELY MALNOURISHED IN THE CONTEXT OF SOCIAL/BEHAVIORAL CIRCUMSTANCES WITH POOR PO X ONE MONTH AND SIGNIFICANT WEIGHT LOSS. WEIGHT FLUCTUATION ANTICIPATED WITH ASCITES/PARACENTESIS. FOLLOW FOR DIET ADVANCEMENT, PO INTAKE AND WEIGHT. SEE CLINICAL NUTRITION ASSESSMENT 07/24/24.
--- NOTE | 2024-07-24 15:11 | PM.PROC ---
Brief Operative Note Date of procedure: 07/24/24 Pre-op diagnosis: concern for sbp Post-op diagnosis: same Procedure: US diagnostic paracentesis Very small amount of ascites present. 40 cc yellow fluid aspirated in LLQ and sent for analysis. Anesthesia: local
[2024-07-24] MEDS: Lidocaine HCl 1 % MPF 5 ML VIAL SUBCUT (15:19)
[2024-07-24 15:32] VITALS: BP 110/56; PULSE 68; RESP 20; TEMP 36.9; O2SAT 96
[2024-07-24 15:48] LABS: MN% 95.5 %; PMN% 4.5 %; WBC Peritoneal Fluid 0.045 X10*3/uL
[2024-07-24 16:31] LABS: RBC Peritoneal Fluid < 0.002 X10*6/uL
[2024-07-24 16:32] LABS: BF Shift QC OK YES
[2024-07-24 16:33] LABS: Lymphocyte Peritoneal Fl 87 %; Monocytes Peritoneal Fl 9 %
[2024-07-24 16:34] LABS: Other Peritioneal Fl 4 %
--- NOTE | 2024-07-24 17:36 | P.CONGS_ITS ---
History of Present Illness Consult details Consult date: 07/24/24 Narrative: This is a 58-year-old male with pertinent history of alcohol use disorder with alcoholic liver cirrhosis, mood disorder, gastroesophageal reflux disease, BPH who presents to the emergency department for evaluation of abdominal pain, nausea and vomiting. Patient states symptoms have been ongoing for for the last 1 month. He has been having abdominal discomfort which was initially intermittent but progressed to being constant, nonradiating and without any relieving factors. Also has been having multiple episodes of nausea and nonbloody emesis. Unable to tolerate p.o. intake due to his symptoms. No loose stools, hematemesis, melena or hematochezia. Patient states he has not taken his prescription medications in the last 2 months as he ran out of them. No fever, chills, chest pain, palpitations, shortness of breath, changes in urinary habits. Does endorse abdominal distention. CT scan and U/s showing thickened gallbladder with stones - LFTs elevated. - ?cholecystitis Therefore surgical consultation PMFSH Past Medical History Medical History Congestive heart failure Anemia ETOH abuse Alcoholic cirrhosis PTSD (post-traumatic stress disorder) Hyponatremia Acute hyponatremia NATHANIEL (acute kidney injury) Acute metabolic encephalopathy [place] Alcoholic cirrhosis of liver with ascites Prostate cancer Depression Hyperlipidemia Hypertension Anxiety Social History Social History Household Members: Significant Other Household Members Other[facility] Do you presently have visiting nurse or other home services: No Unable to assess alcohol history related to: Refusing to respond Alcohol intake: former Comment: bilateral wrist restraints for airway safety Patient Tobacco Use Status: Current everyday Tobacco user Tobacco use type: Cigarette Cigarette Packs Per Day: 2 Cigarettes Per Day: 3 Years Smoked: 25 e-Cigarette/Vaping Use: Currently Using Second Hand Smoke Exposure: No Substance Use Type: Marijuana Advance Directives Date on File: 11/11/21 service: No Current occupational status: disabled Meds Allergies Allergy/AdvReac Type Severity Reaction Status Date / Time Fish Containing Products Allergy Severe THROAT Verified 07/23/24 12:02 SWELLING peanut [Peanut] Allergy Severe THROAT Verified 07/23/24 12:02 SWELLING Active Medications: Current Medications Acetaminophen (Acetaminophen 325 Mg Tablet) 650 mg PO Q6H PRN PRN Reason: Pain, Mild (Pain Scale 1-3), fever or headache Calcium Carbonate (Calcium Carbonate 750 Mg Tab.Chew) 750 mg PO Q4H PRN PRN Reason: Heartburn Last Admin: 07/24/24 13:43 Dose: 750 mg Ceftriaxone Sodium 2 gm/ (Sodium Chloride) 50 mls @ 100 mls/hr IV Q24H [facility] Last Infusion: 07/24/24 00:25 Dose: Infused Metronidazole (Flagyl) 500 mg in 100 mls @ 100 mls/hr IV Q8H [facility] Last Admin: 07/24/24 17:07 Dose: 100 mls/hr Sodium Chloride (Ns) 1,000 mls @ 125 mls/hr IVCONT .Q8H [facility] Last Admin: 07/24/24 15:33 Dose: Not Given Magnesium Hydroxide (Milk Of Magnesia 30 Ml Oral.Susp) 30 ml PO DAILY PRN PRN Reason: Constipation Melatonin (Melatonin 3 Mg Tablet) 9 mg PO BEDTIME [facility] Mirtazapine (Mirtazapine 15 Mg Tablet) 15 mg PO BEDTIME [facility] Ondansetron HCl (Ondansetron Hcl 4 Mg/2 Ml Vial) 4 mg IVPUSH Q8H PRN PRN Reason: Nausea and Vomiting Last Admin: 07/24/24 00:25 Dose: 4 mg Potassium Chloride (Potassium Chloride Er 20 Meq Tab.Er.Prt) 40 meq PO DAILY [facility] Last Admin: 07/24/24 08:51 Dose: Not Given Quetiapine Fumarate (Quetiapine Fumarate 50 Mg Tablet) 50 mg PO DAILY [facility] Last Admin: 07/24/24 08:51 Dose: Not Given Sodium Chloride (0.9 % Sodium Chloride Flush 3 Ml Syringe) 3 ml IVFLUSH QSHIFT [facility] Last Admin: 07/24/24 15:33 Dose: Not Given Spironolactone (Spironolactone 25 Mg Tablet) 100 mg PO DAILY [facility]; Protocol Last Admin: 07/24/24 08:51 Dose: Not Given Tamsulosin HCl (Tamsulosin Hcl 0.4 Mg Capsule) 0.4 mg PO BEDTIME [facility] Topiramate (Topiramate 100 Mg Tablet) 200 mg PO BID [facility] Last Admin: 07/24/24 08:51 Dose: Not Given Home Medications ?Medication ?Instructions ?Recorded ?Confirmed ?Last Taken ?Type melatonin 10 mg tablet 10 mg PO BEDTIME Insomnia 11/13/23 07/23/24 Unknown History mirtazapine 15 mg tablet 15 mg PO BEDTIME 11/13/23 07/23/24 02/22/24 History potassium chloride 20 mEq 20 meq PO DAILY 03/20/24 07/23/24 Unknown History tablet,extended release quetiapine 50 mg tablet (Seroquel) 50 mg PO DAILY 03/20/24 07/23/24 Unknown History spironolactone 100 mg tablet 100 mg PO DAILY 07/23/24 07/23/24 Unknown History tamsulosin 0.4 mg capsule 0.4 mg PO BEDTIME 07/23/24 07/23/24 Unknown History topiramate 200 mg tablet 200 mg PO BID 07/23/24 07/23/24 Unknown History Physical Exam 2 Vital Signs: Vital Signs: Last Vital Signs Temp 98.4 F 07/24/24 15:32 Pulse 68 07/24/24 15:32 Resp 20 07/24/24 15:32 BP 110/56 L 07/24/24 15:32 Pulse Ox 96 07/24/24 15:32 O2 Del Method Room Air 07/24/24 15:32 BMI result Body Mass Index 27.7 Const: General: cooperative, comfortable and no acute distress HEENT: Other: mild jaundice GI: Other: abdomen is a bit distended, tender upper abdomen diffusely distended abdominal wounds Results Labs 07/25/24 05:37 07/25/24 05:37 Labs: Abnormal lab results 07/24/24 Range/Units 04:50 RBC 2.89 L (4.60-5.80) X10*6/uL Hgb 9.5 L (14.0-18.0) g/dl Hct 28.1 L (42.0-52.0) % RDW 21.4 H (11.0-16.0) % Plt Count 62 L (160-400) X10*3/uL Lymph % (Auto) 13.5 L (20-40) % Lymph # (Auto) 0.8 L (1.2-4.9) X10*3/uL Sodium 130 L (135-145) mmol/L Potassium 2.9 L* D (3.3-5.1) mmol/L Chloride 89 L (96-108) mmol/L Carbon Dioxide 33 H (22-29) mmol/L Anion Gap 11 L (12-20) BUN 7 L (9-16) mg/dL Calcium 7.6 L (8.4-10.2) mg/dL Total Bilirubin 9.7 H (0.0-1.0) mg/dL AST 145 H (5-37) U/L ALT 53 H (0-40) U/L Alkaline Phosphatase 160 H (39-117) U/L C-Reactive Protein 2.74 H (< or = 0.50) mg/dL Total Protein 6.3 L (6.5-8.0) g/dL Albumin 2.0 L (3.5-5.0) g/dL Short CBC 07/24/24 Range/Units 04:50 WBC 5.9 (4.8-10.8) X10*3/uL Hgb 9.5 L (14.0-18.0) g/dl Hct 28.1 L (42.0-52.0) % Plt Count 62 L (160-400) X10*3/uL BMP 07/24/24 04:50 Sodium 130 L Potassium 2.9 L* D Chloride 89 L Carbon Dioxide 33 H BUN 7 L Creatinine 0.69 Calcium 7.6 L Liver Function 07/24/24 Range/Units 04:50 Total Bilirubin 9.7 H (0.0-1.0) mg/dL AST 145 H (5-37) U/L ALT 53 H (0-40) U/L Alkaline Phosphatase 160 H (39-117) U/L Albumin 2.0 L (3.5-5.0) g/dL Urine 07/23/24 Range/Units 16:13 Urine Color [place] Urine Appearance Hazy Urine pH 6.5 (5.0-9.0) Ur Specific [place] >= 1.030 H (1.005-1.025) Urine Protein See Note (Neg-Trace) mg/dL Urine Glucose (UA) See Note (Negative) mg/dL All other labs normal. Imaging Abdomen CT scan report/results: report reviewed and image reviewed CT scan - pelvis: report reviewed and image reviewed Abdominal ultrasound report/results: report reviewed Additional studies: [address] [address] Ultrasound Report Signed Patient: Leandro Rico MR#: [id number] : 1965 Acct:[id number] Age/Sex: 59 / M ADM Date: 07/23/24 Loc: HO.ED Attending Dr: Ordering Physician: Erica Marie NP Date of Service: 07/23/24 Procedure(s): US abdomen limited Accession Number(s): [id number] cc: KENDAL PHAM MD; Erica Marie NP~ EXAMINATION: US ABDOMEN LIMITED CLINICAL INFORMATION: Right upper quadrant pain and abnormal LFTs. COMPARISON: CT abdomen/pelvis 05/22/2024. TECHNIQUE: Real-time imaging of the right upper quadrant abdominal viscera. FINDINGS: Very limited examination secondary to body habitus, pain and shadowing from overlying bowel gas. PANCREAS: Not well seen. LIVER: Cirrhotic liver morphology. Hepatofugal flow of the main portal vein and small volume of ascites most consistent with portal hypertension. Within limitations, no discrete liver mass. No intrahepatic biliary ductal dilatation. GALLBLADDER: Partially distended with mild diffuse wall thickening and internal echogenic bile/sludge. Trace pericholecystic free fluid which is indeterminate in the context of ascites. Negative Dewey's sign. COMMON BILE DUCT: Not well seen. RIGHT KIDNEY: Not well seen.. FREE FLUID: Small volume of ascites. US/US abdomen limited IMPRESSION: 1. Very limited examination secondary to patient body habitus, pain and shadowing from overlying bowel gas. 2. Cirrhotic liver morphology with hepatofugal flow of the main portal vein and small volume of ascites most consistent with portal hypertension. 3. Mild gallbladder wall thickening and trace pericholecystic free fluid are indeterminate in the context of cirrhosis, portal hypertension and ascites. Internal echogenic bile and sludge are seen, however no discrete posterior shadowing calculi are visualized. Electronically signed by: Jade Cleveland MD 07/23/2024 05:07 PM EDT [facility] ? Diagnostics Subcategory All Activity ??:?? All Time ??:?? All Subcategories Filter Laboratory Imaging Microbiology Pathology Blood Bank Tests Cardiovascular Other Specialty DATE TYPE STATUS REF RANGE/AUTHOR Hx 07/24/24 17:35 Orbit X-Ray Signed Fredy Cordova 07/24/24 09:10 Hepatobiliary Scan Nuclear Medicine Signed Cindy Lux 07/24/24 00:00 Paracentesis Ultrasound ? 07/23/24 19:26 Abdomen/Pelvis CT Signed Franco Sal 07/23/24 14:00 Abdomen Ultrasound Signed Jade Cleveland 05/22/24 08:32 Abdomen/Pelvis CT Signed Marlen Diallo 04/02/24 13:29 Midline Removal Signed Linda Valencia 03/25/24 18:24 PICC Line Insertion Signed Mckenzie Penn 03/21/24 18:51 Chest X-Ray Signed Jade Cleveland 03/20/24 11:00 Paracentesis Ultrasound Signed Haylie Banks(+) 03/07/24 21:05 Chest X-Ray Signed Chris Soto Jr 03/04/24 07:32 Extremity Ultrasound Signed Farida Putnam 03/01/24 12:03 Abdomen Ultrasound Signed Rhianna Aragon 03/01/24 00:00 Paracentesis Ultrasound Cancelled 02/29/24 23:[address] Signed Tasha Dunne 02/29/24 20:15 Chest X-Ray Signed Tasha Dunne 02/29/24 20:[address] Signed Michael Santana 02/27/24 15:08 Chest X-Ray Signed Reuben Ness 02/23/24 13:20 Chest X-Ray Signed Damien Hunter 12/27/23 01:10 Abdomen/Pelvis CT Signed Eric Rowley 10/17/22 08:53 Abdomen/Pelvis CT Signed Lindsay Blount 03/03/22 15:20 Paracentesis Ultrasound Signed TashaFredy 02/07/22 15:25 Paracentesis Ultrasound Signed Tasha,Fredy 02/06/22 15:28 Chest X-Ray Signed Cindy Lux 12/07/21 12:30 Paracentesis Ultrasound Signed Tasha,Fredy 12/06/21 17:[address] Signed Jade Cleveland 11/21/21 10:[address] Signed Cindy Lux 11/21/21 10:[address] Signed Alyssa Alcazar 11/21/21 10:[address] Signed Alyssa Alcazar 11/20/21 13:55 Chest X-Ray Signed Dominic Peres Richard Acute 59, M?1965 MRN#? [id number] ADM IN,?HO.S3??371?-1? 5ft 8in 182lb 1.629oz BSA: 1.99m? BMI: 27.7kg/m? Acc#? [id number] Full Code Historical Visits Allergies Fish Containing Products THROAT SWELLING peanut (Peanut) THROAT SWELLING Problems ? ONSET Abdominal pain Thrombocytopenia Nausea & vomiting Hyponatremia Acute hypokalemia Dysphagia Acute respiratory failure with hypoxia Septic shock Bladder neck obstruction History of prostate cancer Acidosis, lactic Hypokalemia Esophageal varices Anemia Acute upper gastrointestinal bleeding Acute lactic acidosis Hypokalemia Esophageal varices Portal hypertensive gastropathy Erosive esophagitis Alcohol dependence Anemia Acute hyponatremia Acute GI bleeding Ascites Encephalopathy NATHANIEL (acute kidney injury) Anasarca History of radiation therapy Fatty liver Hyponatremia Alcoholic cirrhosis of liver with ascites Hypertension Hyperlipidemia Depression Anxiety Vital Signs Today 07:14 BP 116/57?L Pulse 85? Resp 16? Temp 99.4 F? O2 Sat 96? Delivery Room Air? Home Meds Confirmed Prescription Monitoring Program MEDICATIONS (INSTRUCTIONS) LAST TAKEN Active melatonin 10 mgPOBEDTIMEInsomnia Unknown mirtazapine 15 mgPOBEDTIME Unknown potassium chloride 20 meqPODAILY Unknown quetiapine [Seroquel] 50 mgPODAILY Unknown spironolactone 100 mgPODAILY Unknown tamsulosin 0.4 mgPOBEDTIME Unknown topiramate 200 mgPOBID Unknown My Widget No Data to Display Diagnostics Reports Leandro Rico??59??M??1965 ? Allergy/Adv: Fish Containing Products, peanut (More??) Close Orbit X-Ray (Signed) Fredy Cordova - 07/24/24 Hepatobiliary Scan Nuclear Medicine (Signed) Cidny Lux - 07/24/24 Paracentesis Ultrasound 07/24/24 Abdomen/Pelvis CT (Signed) Franco Sal - 07/23/24 Abdomen Ultrasound (Signed) Jade Cleveland - 07/23/24 Abdomen/Pelvis CT (Signed) Marlen Diallo - 05/22/24 Midline Removal (Signed) Linda Valencia - 04/02/24 PICC Line Insertion (Signed) Mckenzie Penn - 03/25/24 Chest X-Ray (Signed) Jade Cleveland - 03/21/24 Paracentesis Ultrasound (Signed) Anthony Banks (+) - 03/20/24 Chest X-Ray (Signed) CharlesChris pham Jr - 03/07/24 Extremity Ultrasound (Signed) Farida Putnam - 03/04/24 Abdomen Ultrasound (Signed) Rhianna Aragon - 03/01/24 Paracentesis Ultrasound (Cancelled) 03/01/[address] (Signed) Tasha Dunne - 02/29/24 Chest X-Ray (Signed) Tasha Dunne - 02/29/[address] (Signed) Michael Santana - 02/29/24 Chest X-Ray (Signed) LyndaReuben stevens - 02/27/24 Chest X-Ray (Signed) Damien Hunter - 02/23/24 Abdomen/Pelvis CT (Signed) Eric Rowley - 12/27/23 Abdomen/Pelvis CT (Signed) Lindsay Blount - 10/17/22 Paracentesis Ultrasound (Signed) Tasha,Fredy - 03/03/22 Paracentesis Ultrasound (Signed) Tasha,Fredy - 02/07/22 Chest X-Ray (Signed) Cindy Lux - 02/06/22 Paracentesis Ultrasound (Signed) Tasha,Fredy - 12/07/[address] (Signed) Jade Cleveland - 12/06/[address] (Signed) Cindy Lux - 11/21/[address] (Signed) Alyssa Alcazar - 11/21/[address] (Signed) Alyssa Alcazar - 11/21/21 Chest X-Ray (Signed) Dominic Peres - 11/20/21 Launch?Image [place] [address] CT Scan Report Signed Patient: Leandro Rico MR#: [id number] : 1965 Acct:[id number] Age/Sex: 59 / M ADM Date: 07/23/24 Loc: HO.ED Attending Dr: Ordering Physician: Margarita Dickey Date of Service: 07/23/24 Procedure(s): CT abdomen pelvis w IV con Accession Number(s): [id number] cc: KENDAL PHAM MD; Margarita Dickey~ EXAMINATION: CT ABDOMEN AND PELVIS WITH CONTRAST CLINICAL INFORMATION: Worsening liver dysfunction COMPARISON: CT abdomen and pelvis 05/22/2024 abdominal ultrasound 07/23/2024 TECHNIQUE: Multidetector volumetric images were obtained from the superior aspect of the liver through the pubic symphysis following administration 85 mL of Omnipaque 350 intravenous contrast. Sagittal and coronal reformatted images were obtained on the technologist's workstation. Oral contrast: No This CT examination was performed using dose optimization techniques as appropriate, variously including the following: *Automated exposure control *Adjustment of mA and/or kV according to patient size (this includes techniques or standardized protocols for targeted exams where dose is matched to indication/reason for exam; i.e. extremities or head) *Use of iterative reconstruction technique DLP: 774 mGy-cm FINDINGS: LUNG BASES: Trace left pleural effusion and mild left base dependent atelectasis. LIVER, GALLBLADDER, AND BILIARY TREE: The liver demonstrates mildly lobulated capsular contour suspicious for cirrhosis. No focal parenchymal lesions of the liver or intrahepatic duct dilatation identified. Partially calcified gallstones are noted dependently within the neck of the gallbladder. Diffuse gallbladder wall thickening is present to a width of approximately 4 mm. Common bile duct measures 10 mm diameter. PANCREAS: Unremarkable. SPLEEN: The spleen is at the upper limits of normal size measuring 13 cm in maximum dimension. ADRENAL GLANDS: Unremarkable. KIDNEYS AND URETERS: The kidneys are normal in size, shape, and attenuation. No hydronephrosis, hydroureter, or calculi seen. No perinephric stranding. BLADDER: Mildly distended. No gross neural contour abnormalities. GASTROINTESTINAL TRACT: Normal appearance of the appendix (series 4 image [id number]) no intestinal dilatation or mural thickening. Diffuse reticulation of the small bowel mesentery and sigmoid mesentery. Normal intraluminal opacification noted in the visualized components of the superior mesenteric artery. No clips in the region of the gastroesophageal junction. Mild-moderate quantity of ascites slightly increased in quantity compared with 05/22/2024. No gross ectasia of the paraesophageal veins. No recanalization of the periumbilical veins. Mildly prominent splenorenal varices unchanged from the most recent comparison exam. ABDOMINAL WALL: No significant hernia is appreciated. Anasarca slightly increased in prominence compared with 05/22/2024. LYMPH NODES: Normal. VASCULAR: Moderate scattered calcific atherosclerosis PELVIC VISCERA: Brachytherapy seeds are present within the prostate. OSSEOUS STRUCTURES: No suspicious skeletal abnormalities. CT/CT abdomen pelvis w IV con IMPRESSION: *Cirrhosis with mild-moderate ascites and anasarca. The quantity of ascites and degree of anasarca are both mildly increased compared with 05/22/2024. *Cholelithiasis. Multiple calcified gallstones within the dependent portion of the gallbladder lumen. The common bile duct currently measures 10 mm diameter increased in caliber compared with 05/22/2024. No intrahepatic biliary duct dilatation identified. Increased caliber of the common bile duct could be secondary to choledocholithiasis or dysfunction at the sphincter of Trevin. Mild diffuse gallbladder wall thickening is present but is a nonspecific finding in the setting of ascites. *Unchanged splenorenal varices consistent with underlying portal hypertension. *Trace left pleural effusion and mild left base compressive atelectasis similar findings present 05/22/2024. Electronically signed by: Franco Sal MD 07/23/2024 11:04 PM EDT RP Dictated By: Franco Sal MD Signed By: <Electronically signed by Franco Sal MD in OV> 07/23/24 2304 DD/ 1926 TD/TT: 07/23/24 1950 Vice President Research: EF Dictated By: Jade Cleveland [facility] ? Diagnostics Subcategory All Activity ??:?? All Time ??:?? All Subcategories Filter Laboratory Imaging Microbiology Pathology Blood Bank Tests Cardiovascular Other Specialty DATE TYPE STATUS REF RANGE/AUTHOR Hx 07/24/24 17:35 Orbit X-Ray Signed Fredy Cordova 07/24/24 09:10 Hepatobiliary Scan Nuclear Medicine Signed Cindy Lux 07/24/24 00:00 Paracentesis Ultrasound ? 07/23/24 19:26 Abdomen/Pelvis CT Signed Franco Sal 07/23/24 14:00 Abdomen Ultrasound Signed Jade Cleveland 05/22/24 08:32 Abdomen/Pelvis CT Signed Marlen Diallo 04/02/24 13:29 Midline Removal Signed Linda Valencia 03/25/24 18:24 PICC Line Insertion Signed Mckenzie Penn 03/21/24 18:51 Chest X-Ray Signed Jade Cleveland 03/20/24 11:00 Paracentesis Ultrasound Signed Anthony Banks?(+) 03/07/24 21:05 Chest X-Ray Signed Chris Soto Jr 03/04/24 07:32 Extremity Ultrasound Signed Farida Putnam 03/01/24 12:03 Abdomen Ultrasound Signed Rhianna Aragon 03/01/24 00:00 Paracentesis Ultrasound Cancelled 02/29/24 23:[address] Signed Tasha Dunne 02/29/24 20:15 Chest X-Ray Signed Tasha Dunne 02/29/24 20:[address] Signed Michael Santana 02/27/24 15:08 Chest X-Ray Signed Reuben Ness 02/23/24 13:20 Chest X-Ray Signed Damien Hunter 12/27/23 01:10 Abdomen/Pelvis CT Signed Eric Rowley 10/17/22 08:53 Abdomen/Pelvis CT Signed Lindsay Blount 03/03/22 15:20 Paracentesis Ultrasound Signed TashaFredy 02/07/22 15:25 Paracentesis Ultrasound Signed TashaFredy 02/06/22 15:28 Chest X-Ray Signed Cindy Lux 12/07/21 12:30 Paracentesis Ultrasound Signed TashaFredy 12/06/21 17:[address] Signed Jade Cleveland 11/21/21 10:[address] Signed Cindy Lux 11/21/21 10:[address] Signed Alyssa Alcazar 11/21/21 10:[address] Signed Alyssa Alcazar 11/20/21 13:55 Chest X-Ray Signed Dominic Peres Richard Acute 59, M?1965 MRN#? [id number] ADM IN,?HO.S3??371?-1? 5ft 8in 182lb 1.629oz BSA: 1.99m? BMI: 27.7kg/m? Acc#? [id number] Full Code Historical Visits Allergies Fish Containing Products THROAT SWELLING peanut (Peanut) THROAT SWELLING Problems ? ONSET Abdominal pain Thrombocytopenia Nausea & vomiting Hyponatremia Acute hypokalemia Dysphagia Acute respiratory failure with hypoxia Septic shock Bladder neck obstruction History of prostate cancer Acidosis, lactic Hypokalemia Esophageal varices Anemia Acute upper gastrointestinal bleeding Acute lactic acidosis Hypokalemia Esophageal varices Portal hypertensive gastropathy Erosive esophagitis Alcohol dependence Anemia Acute hyponatremia Acute GI bleeding Ascites Encephalopathy NATHANIEL (acute kidney injury) Anasarca History of radiation therapy Fatty liver Hyponatremia Alcoholic cirrhosis of liver with ascites Hypertension Hyperlipidemia Depression Anxiety Vital Signs Today 07:14 BP 116/57?L Pulse 85? Resp 16? Temp 99.4 F? O2 Sat 96? Delivery Room Air? Home Meds Confirmed Prescription Monitoring Program MEDICATIONS (INSTRUCTIONS) LAST TAKEN Active melatonin 10 mgPOBEDTIMEInsomnia Unknown mirtazapine 15 mgPOBEDTIME Unknown potassium chloride 20 meqPODAILY Unknown quetiapine [Seroquel] 50 mgPODAILY Unknown spironolactone 100 mgPODAILY Unknown tamsulosin 0.4 mgPOBEDTIME Unknown topiramate 200 mgPOBID Unknown My Widget No Data to Display Diagnostics Reports Leandro Rico??59??M??1965 ? Allergy/Adv: Fish Containing Products, peanut (More??) Close Orbit X-Ray (Signed) Fredy Cordova - 07/24/24 Hepatobiliary Scan Nuclear Medicine (Signed) Cindy Lux - 07/24/24 Paracentesis Ultrasound 07/24/24 Abdomen/Pelvis CT (Signed) Franco Sal - 07/23/24 Abdomen Ultrasound (Signed) Jade Cleveland - 07/23/24 Abdomen/Pelvis CT (Signed) Marlen Diallo - 05/22/24 Midline Removal (Signed) Linda Valencia - 04/02/24 PICC Line Insertion (Signed) Mckenzie Penn - 03/25/24 Chest X-Ray (Signed) Jade Cleveland - 03/21/24 Paracentesis Ultrasound (Signed) Anthony Banks (+) - 03/20/24 Chest X-Ray (Signed) Chris Soto Jr - 03/07/24 Extremity Ultrasound (Signed) Farida Putnam - 03/04/24 Abdomen Ultrasound (Signed) Rhianna Aragon - 03/01/24 Paracentesis Ultrasound (Cancelled) 03/01/[address] (Signed) Tasha Dunne - 02/29/24 Chest X-Ray (Signed) Tasha Dunne - 02/29/[address] (Signed) Michael Santana - 02/29/24 Chest X-Ray (Signed) Reuben Ness - 02/27/24 Chest X-Ray (Signed) Damien Hunter - 02/23/24 Abdomen/Pelvis CT (Signed) RowleyEric - 12/27/23 Abdomen/Pelvis CT (Signed) Jose AlejandroLindsay - 10/17/22 Paracentesis Ultrasound (Signed) Yessenia Cordovanal - 03/03/22 Paracentesis Ultrasound (Signed) Tasha,Fredy - 02/07/22 Chest X-Ray (Signed) JordanCindy demarco - 02/06/22 Paracentesis Ultrasound (Signed) Tasha,Fredy - 12/07/[address] (Signed) HaleighTiffanie rogersana - 12/06/[address] (Signed) Cindy Lux - 11/21/[address] (Signed) AlcazarDouglasAlyssa - 11/21/[address] (Signed) OttonielAlyssa - 11/21/21 Chest X-Ray (Signed) Dominic Peres - 11/20/21 Launch?Image [place] [address] Nuclear Medicine Report Signed Patient: Leandro Rico MR#: [id number] : 1965 Acct:[id number] Age/Sex: 59 / M ADM Date: 07/23/24 Loc: .S3 371-[address]: Nathalie Marshall MD Ordering Physician: Janny Cummins MD Date of Service: 07/24/24 Procedure(s): NM hepatobiliary wo pharm Accession Number(s): [id number] cc: KENDAL PHAM MD; Janny Cummins MD~ EXAMINATION: BILIARY TRACT IMAGING STUDY CLINICAL INDICATION: Abdominal pain. COMPARISON: Right upper quadrant abdominal ultrasound done on 07/23/[address] scan of the abdomen and pelvis done also on 07/23/2024. TECHNIQUE: Scintillation camera images were obtained over the abdomen for an observation of 60 minutes following the intravenous administration of 5.0 millicuries technetium 99m mebrofenin. The radiotracer was injected through a right antecubital superficial vein without complications.. Delayed images were also obtained up to 2 hours post injection. FINDINGS: There is good concentration of activity in the liver by 5 minutes post injection. However, there is persistent radiotracer activity identified within the bladder for indicative of 4 liver function, appears concordant with the cirrhotic liver morphology is seen on prior ultrasound as well as CT of the abdomen and pelvis done yesterday. Biliary activity is well visualized by 12 minutes, and there is good visualization of small bowel activity by 15 minutes. The gallbladder remains nonvisualized throughout the entire study on the initial 60 and subsequent delayed 120 minutes images. 4 hours delayed images could not be obtained due to patient's refusal and also the patient apparently is scheduled for paracentesis. NM/NM hepatobiliary wo pharm IMPRESSION: 1. Impaired liver function, consistent with clinically known cirrhosis. 2. Visualization of the biliary tree and biliary to bowel transit time appears to be within normal limits. 3. The gallbladder remained nonvisualized on the initial 60 and subsequent 120 minutes delayed images. 4 hours delayed imaging as per our protocol could not be however obtained due to patient's refusal and also patient apparently was scheduled for a paracentesis. Possible differential diagnostic consideration at this point would include physiologic gallbladder contraction versus chronic cholecystitis as well as acute cholecystitis. Alternative imaging modality as appropriate may be considered for further clarification. Alternatively, further delayed imaging including 24 hours delayed imaging may be considered if appropriate for further clarification. Electronically signed by: Cindy Lux MD 07/24/2024 05:00 PM EDT Dictated By: Cindy Lux MD Signed By: <Electronically signed by Cindy Lux MD in OV> 07/24/24 1700 DD/ 0910 TD/TT: 07/24/24 1145 Vice President Research: JONG Assessment and Plan (1) Abdominal pain: Status: Acute Plan 59 year old male with multiple med problems but focus on alcoholic cirrhosis still drinking worsening lfts and with ascites and abdo pain - doubt cholecystitis and if so would recommend med management- pt refusing to go back for hida scan completion films. Pt too high risk for surgical intervention - recommend GI consult and trial of advancing diet and see how he does. Pt says he is starving and will leave ama without getting something to eat now. refusing to do anymore testing. says he is going to stop drinking. Procedures Date of Service Date of Service: 07/25/24
[2024-07-24 19:27] VITALS: BP 107/54; PULSE 71; RESP 16; TEMP 36.6; O2SAT 96
[2024-07-24] MEDS: Mirtazapine 15 MG TABLET PO (20:39)
[2024-07-24] MEDS: Tamsulosin HCL 0.4 MG CAPSULE PO (20:39)
[2024-07-24] MEDS: Topiramate 100 MG TABLET 200 MG PO (20:39)
[2024-07-24] MEDS: Melatonin 3 MG TABLET 9 MG PO (20:39)
[2024-07-24] MEDS: cefTRIAXone sodium 2 GM in 0.9 % Sodium Chloride 50 ML IV (23:56)
[2024-07-25] MEDS: metroNIDAZOLE/NS 500 MG/100 ML PIGGYBACK 100 MG IV ×4 (00:40→23:58)
--- NOTE | 2024-07-25 01:11 | PC.NURSE ---
Addendum entered by Clara Chavez RN 07/25/24 01:15: prior this episode pt was given zofran for nausea and TUMS for stomach upset . vss Original Note: it was noted pt had vomited some brown liquid suspicious of stool notified
[2024-07-25 03:20] VITALS: BP 112/56; PULSE 82; RESP 16; TEMP 36.5; O2SAT 98
[2024-07-25] MEDS: 0.9 % Sodium Chloride 1,000 ML 125 ML IVCONT (03:44)
[2024-07-25 06:52] LABS: Hematocrit 26.8 % (42.0-52.0); Hemoglobin 9.1 g/dl (14.0-18.0); Mean Corpuscular Hemoglobin 33.2 pg (27.0-33.0); Mean Corpuscular Volume 97.8 fL (80.0-98.0); Mean Platelet Volume 9.9 fL (9.4-12.4); Red Blood Count 2.74 X10*6/uL (4.60-5.80); Red Cell Distribution Width 21.5 % (11.0-16.0); White Blood Count 6.8 X10*3/uL (4.8-10.8)
[2024-07-25 06:53] LABS: Platelet Count 81 X10*3/uL (160-400)
[2024-07-25 06:59] LABS: Alanine Aminotransferase 55 U/L (0-40); Albumin Level 2.1 g/dL (3.5-5.0); Alkaline Phosphatase 153 U/L (39-117); Anion Gap 11 (12-20); Aspartate Amino Transferase 140 U/L (5-37); Bilirubin Total 9.2 mg/dL (0.0-1.0); Blood Urea Nitrogen 9 mg/dL (9-16); Calcium 7.7 mg/dL (8.4-10.2); Carbon Dioxide 32 mmol/L (22-29); Chloride 90 mmol/L (96-108); Estimated Glomerular Filt Rate > 60; Glucose Random 108 mg/dL (60-115); Magnesium 1.9 mg/dL (1.6-2.6); Potassium 3.3 mmol/L (3.3-5.1); Sodium 130 mmol/L (135-145); Total Protein 6.3 g/dL (6.5-8.0)
[2024-07-25 07:14] VITALS: BP 116/57; PULSE 85; RESP 16; TEMP 37.4; O2SAT 96
[2024-07-25] MEDS: Potassium Chloride ER 20 MEQ TAB.ER.PRT 40 MEQ PO (09:03)
[2024-07-25] MEDS: 0.9 % Sodium Chloride Flush 3 ML SYRINGE IVFLUSH ×3 (09:03→19:51)
[2024-07-25] MEDS: QUEtiapine Fumarate 50 MG TABLET PO (09:03)
[2024-07-25] MEDS: Spironolactone 25 MG TABLET 100 MG PO (09:03)
[2024-07-25] MEDS: Topiramate 100 MG TABLET 200 MG PO ×2 (09:03→19:51)
[2024-07-25] MEDS: Calcium Carbonate 750 MG TAB.CHEW PO ×2 (09:53→13:56)
--- NOTE | 2024-07-25 10:17 | P.PNIM_ITS ---
Subjective Subjective Date of Service: 07/25/24 Interval History: some abd discomfort though improved had diagnostic paracentesis yesterday, 40 cc ascites removed not meeting SBP criteria declined Recovery Team consultation Review of Systems Review of Systems: Yes all other systems are reviewed and are negative Physical Exam 2 Vital Signs: Vital Signs: Last Vital Signs Temp 99.4 F 07/25/24 07:14 Pulse 85 07/25/24 07:14 Resp 16 07/25/24 07:14 BP 116/57 L 07/25/24 07:14 Pulse Ox 96 07/25/24 07:14 O2 Del Method Room Air 07/25/24 07:14 BMI result Body Mass Index 27.7 Gen: in no acute distress HEENT: sclera icteric, moist mucus membranes Neck: supple Lungs: clear to auscultation bilaterally Heart: regular rate and rhythm, no murmurs Abd: some epigastric tenderness, no Dewey sign Ext: no edema Skin: warm/well-perfused, jaundiced Neuro: alert and oriented x3, no focal findings, no asterixis Psych: appropriate affect Objective Data Active Medications Acetaminophen (Acetaminophen 325 Mg Tablet) 650 mg PO Q6H PRN PRN Reason: Pain, Mild (Pain Scale 1-3), fever or headache Calcium Carbonate (Calcium Carbonate 750 Mg Tab.Chew) 750 mg PO Q4H PRN PRN Reason: Heartburn Last Admin: 07/25/24 09:53 Dose: 750 mg Documented By: ELIO Ceftriaxone Sodium 2 gm/ (Sodium Chloride) 50 mls @ 100 mls/hr IV Q24H [facility] Last Infusion: 07/25/24 00:39 Dose: Infused Documented By: ANIBAL Metronidazole (Flagyl) 500 mg in 100 mls @ 100 mls/hr IV Q8H [facility] Last Infusion: 07/25/24 10:10 Dose: Infused Documented By: ELIO Sodium Chloride (Ns) 1,000 mls @ 125 mls/hr IVCONT .Q8H [facility] Last Admin: 07/25/24 03:44 Dose: 125 mls/hr Documented By: MERCEDEZ Magnesium Hydroxide (Milk Of Magnesia 30 Ml Oral.Susp) 30 ml PO DAILY PRN PRN Reason: Constipation Melatonin (Melatonin 3 Mg Tablet) 9 mg PO BEDTIME [facility] Last Admin: 07/24/24 20:39 Dose: 9 mg Documented By: ANIBAL Mirtazapine (Mirtazapine 15 Mg Tablet) 15 mg PO BEDTIME [facility] Last Admin: 07/24/24 20:39 Dose: 15 mg Documented By: ANIBAL Ondansetron HCl (Ondansetron Hcl 4 Mg/2 Ml Vial) 4 mg IVPUSH Q8H PRN PRN Reason: Nausea and Vomiting Last Admin: 07/24/24 20:43 Dose: 4 mg Documented By: ANIBAL Potassium Chloride (Potassium Chloride Er 20 Meq Tab.Er.Prt) 40 meq PO DAILY [facility] Last Admin: 07/25/24 09:03 Dose: 40 meq Documented By: ELIO Quetiapine Fumarate (Quetiapine Fumarate 50 Mg Tablet) 50 mg PO DAILY [facility] Last Admin: 07/25/24 09:03 Dose: 50 mg Documented By: ELIO Sodium Chloride (0.9 % Sodium Chloride Flush 3 Ml Syringe) 3 ml IVFLUSH QSHIFT [facility] Last Admin: 07/25/24 09:03 Dose: 3 ml Documented By: ELIO Spironolactone (Spironolactone 25 Mg Tablet) 100 mg PO DAILY [facility]; Protocol Last Admin: 07/25/24 09:03 Dose: 100 mg Documented By: ELIO Tamsulosin HCl (Tamsulosin Hcl 0.4 Mg Capsule) 0.4 mg PO BEDTIME [facility] Last Admin: 07/24/24 20:39 Dose: 0.4 mg Documented By: ANIBAL Topiramate (Topiramate 100 Mg Tablet) 200 mg PO BID [facility] Last Admin: 07/25/24 09:03 Dose: 200 mg Documented By: ELIO Labs 07/25/24 05:37 07/25/24 05:37 Labs: Laboratory Results - last 24 hr 07/24/24 07/25/24 15:08 05:37 MCV 97.8 MCH 33.2 H MCHC 34.0 RDW 21.5 H Plt Count 81 L D MPV 9.9 Absolute Nucleated RBC 0.000 Nucleated RBC % (auto) 0.0 Anion Gap 11 L Estim Creat Clear Calc 98.0 Estimated GFR > 60 Random Glucose 108 Calcium 7.7 L Magnesium 1.9 Total Bilirubin 9.2 H AST 140 H ALT 55 H Alkaline Phosphatase 153 H Total Protein 6.3 L Albumin 2.1 L Peritoneal WBC 0.045 Peritoneal RBC < 0.002 Periton Lymphocytes 87 Peritoneal Monocytes 9 Peritoneal Other Cells 4 Laboratory Results WBC 6.8 X10*3/uL (4.8-10.8) 07/25/24 05:37 RBC 2.74 X10*6/uL (4.60-5.80) L 07/25/24 05:37 Hgb 9.1 g/dl (14.0-18.0) L 07/25/24 05:37 Hct 26.8 % (42.0-52.0) L 07/25/24 05:37 MCV 97.8 fL (80.0-98.0) 07/25/24 05:37 MCH 33.2 pg (27.0-33.0) H 07/25/24 05:37 MCHC 34.0 g/dl (31.0-36.0) 07/25/24 05:37 RDW 21.5 % (11.0-16.0) H 07/25/24 05:37 Plt Count 81 X10*3/uL (160-400) L D 07/25/24 05:37 MPV 9.9 fL (9.4-12.4) 07/25/24 05:37 Immature Gran % (Auto) 0.3 % (0.0-0.4) 07/24/24 04:50 Neut % (Auto) 72.5 % (45-73) 07/24/24 04:50 Lymph % (Auto) 13.5 % (20-40) L 07/24/24 04:50 Butts % (Auto) 10.2 % (2-11) 07/24/24 04:50 Eos % (Auto) 3.2 % (0-4) 07/24/24 04:50 Baso % (Auto) 0.3 % (0-2) 07/24/24 04:50 Lymph # (Auto) 0.8 X10*3/uL (1.2-4.9) L 07/24/24 04:50 Butts # (Auto) 0.6 X10*3/uL (0.1-1.2) 07/24/24 04:50 Eos # (Auto) 0.2 X10*3/uL (0.0-0.4) 07/24/24 04:50 Baso # (Auto) 0.0 X10*3/uL (0.0-0.2) 07/24/24 04:50 Abs Immat Gran (auto) 0.02 X10*3/uL (0.00-0.03) 07/24/24 04:50 Absolute Neuts (auto) 4.3 x10*3/uL (2.0-8.3) 07/24/24 04:50 Absolute Nucleated RBC 0.000 X10*3/uL (0.0-0.012) 07/25/24 05:37 Nucleated RBC % (auto) 0.0 /100WBC (0.0-0.2) 07/25/24 05:37 PT 17.7 SEC (10.9-12.4) H 07/23/24 12:28 INR 1.5 (0.9-1.1) H 07/23/24 12:28 Sodium 130 mmol/L (135-145) L 07/25/24 05:37 Potassium 3.3 mmol/L (3.3-5.1) 07/25/24 05:37 Chloride 90 mmol/L (96-108) L 07/25/24 05:37 Carbon Dioxide 32 mmol/L (22-29) H 07/25/24 05:37 Anion Gap 11 (12-20) L 07/25/24 05:37 BUN 9 mg/dL (9-16) 07/25/24 05:37 Creatinine 0.85 mg/dL (0.5-1.4) 07/25/24 05:37 Estim Creat Clear Calc 98.0 07/25/24 05:37 Estimated GFR > 60 07/25/24 05:37 Random Glucose 108 mg/dL (60-115) 07/25/24 05:37 Calcium 7.7 mg/dL (8.4-10.2) L 07/25/24 05:37 Magnesium 1.9 mg/dL (1.6-2.6) 07/25/24 05:37 Total Bilirubin 9.2 mg/dL (0.0-1.0) H 07/25/24 05:37 Direct Bilirubin 5.2 mg/dL (0.0-0.5) H 07/23/24 12:28 AST 140 U/L (5-37) H 07/25/24 05:37 ALT 55 U/L (0-40) H 07/25/24 05:37 Alkaline Phosphatase 153 U/L (39-117) H 07/25/24 05:37 Ammonia 46 umol/L (13-55) 07/23/24 12:52 C-Reactive Protein 2.74 mg/dL (< or = 0.50) H 07/24/24 04:50 Total Protein 6.3 g/dL (6.5-8.0) L 07/25/24 05:37 Albumin 2.1 g/dL (3.5-5.0) L 07/25/24 05:37 Amylase 30 U/L (28-100) 07/23/24 12:28 Lipase 19 U/L (8-78) 07/23/24 12:28 Urine Color [place] 07/23/24 16:13 Urine Appearance Hazy 07/23/24 16:13 Urine pH 6.5 (5.0-9.0) 07/23/24 16:13 Ur Specific [place] >= 1.030 (1.005-1.025) H 07/23/24 16:13 Urine Protein See Note mg/dL (Neg-Trace) 07/23/24 16:13 Urine Glucose (UA) See Note mg/dL (Negative) 07/23/24 16:13 Urine Ketones See Note mg/dL (Negative) 07/23/24 16:13 Urine Blood See Note (Negative) 07/23/24 16:13 Urine Nitrite See Note (Negative) 07/23/24 16:13 Ur Leukocyte Esterase Trace (Negative) H 07/23/24 16:13 Urine RBC 0-2 /HPF (0-2) 07/23/24 16:13 Urine WBC 0-5 /HPF (0-5) 07/23/24 16:13 Ur Squamous Epith Cells 11-20 /HPF (0-2) 07/23/24 16:13 Urine Bacteria None Seen (None Seen) 07/23/24 16:13 Hyaline Casts 0-2 /LPF (0-2) 07/23/24 16:13 Peritoneal WBC 0.045 X10*3/uL 07/24/24 15:08 Peritoneal RBC < 0.002 X10*6/uL 07/24/24 15:08 Periton Lymphocytes 87 % 07/24/24 15:08 Peritoneal Monocytes 9 % 07/24/24 15:08 Peritoneal Other Cells 4 % 07/24/24 15:08 Urine Opiates Screen Not Detected (Not Detect) 07/23/24 16:13 Ur Buprenorphine Scrn Not Detected ng/mL (Not Detect) 07/23/24 16:13 Ur Oxycodone Screen Not Detected ng/mL (Not Detect) 07/23/24 16:13 Urine Methadone Screen Not Detected ng/mL (Not Detect) 07/23/24 16:13 Urine Fentanyl Screen Not Detected (Not Detect) 07/23/24 16:13 Ur Barbiturates Screen Not Detected (Not Detect) 07/23/24 16:13 Ur Phencyclidine Scrn Not Detected (Not Detect) 07/23/24 16:13 Ur Amphetamines Screen Not Detected (Not Detect) 07/23/24 16:13 U Benzodiazepines Scrn Not Detected (Not Detect) 07/23/24 16:13 Urine Cocaine Screen Not Detected (Not Detect) 07/23/24 16:13 U Marijuana (THC) Screen POSITIVE (Not Detect) H 07/23/24 16:13 Ethyl Alcohol 31 mg/dL 07/23/24 12:28 Influenza Type A (PCR) NEGATIVE (Negative) 07/23/24 12:28 Influenza Type B (PCR) NEGATIVE (Negative) 07/23/24 12:28 RSV RNA Qual (PCR) NEGATIVE (Negative) 07/23/24 12:28 SARS-CoV-2 RNA (RT-PCR) NEGATIVE (Negative) 07/23/24 12:28 Impressions Abdomen Ultrasound 07/23/24 14:00 IMPRESSION: 1. Very limited examination secondary to patient body habitus, pain and shadowing from overlying bowel gas. 2. Cirrhotic liver morphology with hepatofugal flow of the main portal vein and small volume of ascites most consistent with portal hypertension. 3. Mild gallbladder wall thickening and trace pericholecystic free fluid are indeterminate in the context of cirrhosis, portal hypertension and ascites. Internal echogenic bile and sludge are seen, however no discrete posterior shadowing calculi are visualized. Electronically signed by: Jade Cleveland MD 07/23/2024 05:07 PM EDT Abdomen/Pelvis CT 07/23/24 19:26 IMPRESSION: *Cirrhosis with mild-moderate ascites and anasarca. The quantity of ascites and degree of anasarca are both mildly increased compared with 05/22/2024. *Cholelithiasis. Multiple calcified gallstones within the dependent portion of the gallbladder lumen. The common bile duct currently measures 10 mm diameter increased in caliber compared with 05/22/2024. No intrahepatic biliary duct dilatation identified. Increased caliber of the common bile duct could be secondary to choledocholithiasis or dysfunction at the sphincter of Trevin. Mild diffuse gallbladder wall thickening is present but is a nonspecific finding in the setting of ascites. *Unchanged splenorenal varices consistent with underlying portal hypertension. *Trace left pleural effusion and mild left base compressive atelectasis similar findings present 05/22/2024. Electronically signed by: Franco Sal MD 07/23/2024 11:04 PM EDT RP Hepatobiliary Scan Nuclear Medicine 07/24/24 09:10 IMPRESSION: 1. Impaired liver function, consistent with clinically known cirrhosis. 2. Visualization of the biliary tree and biliary to bowel transit time appears to be within normal limits. 3. The gallbladder remained nonvisualized on the initial 60 and subsequent 120 minutes delayed images. 4 hours delayed imaging as per our protocol could not be however obtained due to patient's refusal and also patient apparently was scheduled for a paracentesis. Possible differential diagnostic consideration at this point would include physiologic gallbladder contraction versus chronic cholecystitis as well as acute cholecystitis. Alternative imaging modality as appropriate may be considered for further clarification. Alternatively, further delayed imaging including 24 hours delayed imaging may be considered if appropriate for further clarification. Electronically signed by: Cindy Lux MD 07/24/2024 05:00 PM EDT This addendum is generated following obtaining delayed images at 24 hours radiotracer injection. Planar images were obtained in anterior, YUMIKO, RUSH and right lateral projections shows persistent radiotracer within the bowel loops and nonvisualization of the gallbladder. The differential diagnosis given based on prior images remain unchanged. Orbit X-Ray 07/24/24 17:35 IMPRESSION: No radiopaque metallic foreign bodies seen in the orbits.. Electronically signed by: Fredy Cordova MD 07/24/2024 07:45 PM EDT RP Microbiology Microbiology Results: Microbiology 07/24/24 15:08 Gram Stain - Final Ascites Fluid Assessment and Plan (1) Thrombocytopenia: Status: Acute (2) Hyponatremia: Status: Acute Plan d3 for 59yo M with decompensated EtOH cirrhosis + hx prostate CA presenting with abd pain, N/V for past 1 mo, noncompliant with meds x 2mo found to have ascites, hypoK, GB wall thickening hypoK - repleted ascites - diagnostic paracentesis 07/24/24; WBC count not meeting SBP criteria but on empiric ceftriaxone + metronidazole; follow Cx; continue spironolactone GB wall thickening CBD dilation - could be due to cirrhosis; on IV ABX as above; Surgery consulted appreciated; HIDA as above; MRCP pending; GI consultation EtOH hepatitis - MDF >32 but would not be a good candidate for steroids unless he can commit to stopping drinking AUD - declined Recovery Team support - prn CIWA; no withdrawal signs - continue topiramate prostatism - tamsulosin mood disorder - quetiapine + mirtazapine thrombocytopenia due to cirrhosis - monitor CBC VTE ppx - SCDs; no heparin given low plts dispo - PT consult In my clinical judgment, the patient requires continued inpatient hospitalization for the following reasons: IV ABX, question of cholecystitis Total time managing care of this patient today: 45 minutes. Quality Stroke Does the patient have a stroke diagnosis?: No VTE Prior VTE?: No VTE Risk Level:: Medical - moderate - high VTE Device Contraindication: N/A - Device Ordered VTE Drug Contraindication: Treatment Not Indicated
[2024-07-25 11:43] LABS: Albumin Peritoneal Fluid 0.5; pH Peritoneal Fluid 7.55
[2024-07-25 11:44] LABS: Total Protein Peritoneal Fluid 0.7
[2024-07-25 11:45] LABS: Glucose Peritoneal Fluid 73
[2024-07-25 15:17] VITALS: BP 103/52; PULSE 86; RESP 16; TEMP 36.6; O2SAT 97
--- NOTE | 2024-07-25 15:31 | P.CNGI_ITS ---
History of Present Illness Data of Consult Service Date: 07/25/24 Requesting physician: Nathalie Marshall Primary Care Provider: Fransisco Soria MD [facility] Reason for consult: Cirrhosis ? cholecystitis 59-year-old male with alcohol use disorder that has led to decompensated cirrhosis with recent admission for hemorrhagic shock from esophagitis as well as variceal bleeding vs Dieulafoy's, who presented to the hospital for worsening abd pain. Patient reports vague diffuse abdominal pain at baseline almost on a daily basis. Attributes it to alcohol use. However, in the last few days, has been unable to tolerate anything p.o. apart from alcohol. His only intake has been 5-6 shots of vodka per day, without any other fluid intake or solid food. 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 Apple at [facility]. However, his fiance reports that he has not followed up with him in at least 6 months. On arrival to the hospital, imaging was suspicious for gallbladder wall thickening which then prompted a HIDA scan. This in turn showed no opacification of gallbladder and therefore the question of cholecystitis was raised. On my evaluation, patient reports pain mostly on the left side was abdomen. He in fact tolerated a fatty meal for lunch this afternoon (mac and cheese) without any worsening of pain or vomiting. He is aware of his underlying liver disease, he continues to drink. Is interested in quitting, but wants to do that on his own. Labs on admission significant for mild anemia and thrombocytopenia. INR 1.5. Chem 7 with hyponatremia. LFTs with hyperbilirubinemia and AST>>ALT. Recent endoscopy: 03/21/2024: Severe esophagitis with oozing, and bleeding from Dieulafoy lesion versus varix. Endoclips resulted in severe bleeding. Banding failed. Epi + hemospray applied. Patient was transferred to ICU. 02/24/2024: Severe esophagitis. Grade 1 varices. Portal hypertensive gastropathy. Possible gastric varices. 12/28/2023: Schatzki's ring. Hiatal hernia. Brief esophagitis. Small varices. Review of Systems 2 Review of Systems: Yes all other systems are reviewed and are negative PMFSH Past Medical History Medical History Congestive heart failure Anemia ETOH abuse Alcoholic cirrhosis PTSD (post-traumatic stress disorder) Hyponatremia Acute hyponatremia NATHANIEL (acute kidney injury) Acute metabolic encephalopathy [place] Alcoholic cirrhosis of liver with ascites Prostate cancer Depression Hyperlipidemia Hypertension Anxiety Social History Social History Household Members: Significant Other Household Members Other:: fiancee Housing: [facility] Do you presently have visiting nurse or other home services: No Unable to assess alcohol history related to: Refusing to respond Alcohol intake: former Comment: bilateral wrist restraints for airway safety Patient Tobacco Use Status: Current everyday Tobacco user Tobacco use type: Cigarette Cigarette Packs Per Day: 2 Cigarettes Per Day: 3 Years Smoked: 25 e-Cigarette/Vaping Use: Currently Using Second Hand Smoke Exposure: No Substance Use Type: Marijuana Advance Directives Date on File: 11/11/21 service: No Current occupational status: disabled Meds Allergies Allergy/AdvReac Type Severity Reaction Status Date / Time Fish Containing Products Allergy Severe THROAT Verified 07/23/24 12:02 SWELLING peanut [Peanut] Allergy Severe THROAT Verified 07/23/24 12:02 SWELLING Active Medications: Current Medications Acetaminophen (Acetaminophen 325 Mg Tablet) 650 mg PO Q6H PRN PRN Reason: Pain, Mild (Pain Scale 1-3), fever or headache Calcium Carbonate (Calcium Carbonate 750 Mg Tab.Chew) 750 mg PO Q4H PRN PRN Reason: Heartburn Last Admin: 07/25/24 13:56 Dose: 750 mg Ceftriaxone Sodium 2 gm/ (Sodium Chloride) 50 mls @ 100 mls/hr IV Q24H [facility] Last Infusion: 07/25/24 00:39 Dose: Infused Metronidazole (Flagyl) 500 mg in 100 mls @ 100 mls/hr IV Q8H [facility] Last Infusion: 07/25/24 10:10 Dose: Infused Lactulose (Lactulose 20 Gm/30 Ml Solution) 20 gm PO BID [facility] Magnesium Hydroxide (Milk Of Magnesia 30 Ml Oral.Susp) 30 ml PO DAILY PRN PRN Reason: Constipation Melatonin (Melatonin 3 Mg Tablet) 9 mg PO BEDTIME [facility] Last Admin: 07/24/24 20:39 Dose: 9 mg Mirtazapine (Mirtazapine 15 Mg Tablet) 15 mg PO BEDTIME [facility] Last Admin: 07/24/24 20:39 Dose: 15 mg Ondansetron HCl (Ondansetron Hcl 4 Mg/2 Ml Vial) 4 mg IVPUSH Q8H PRN PRN Reason: Nausea and Vomiting Last Admin: 07/24/24 20:43 Dose: 4 mg Potassium Chloride (Potassium Chloride Er 20 Meq Tab.Er.Prt) 40 meq PO DAILY [facility] Last Admin: 07/25/24 09:03 Dose: 40 meq Quetiapine Fumarate (Quetiapine Fumarate 50 Mg Tablet) 50 mg PO DAILY [facility] Last Admin: 07/25/24 09:03 Dose: 50 mg Sodium Chloride (0.9 % Sodium Chloride Flush 3 Ml Syringe) 3 ml IVFLUSH QSHIFT [facility] Last Admin: 07/25/24 09:03 Dose: 3 ml Spironolactone (Spironolactone 25 Mg Tablet) 100 mg PO DAILY [facility]; Protocol Last Admin: 07/25/24 09:03 Dose: 100 mg Tamsulosin HCl (Tamsulosin Hcl 0.4 Mg Capsule) 0.4 mg PO BEDTIME [facility] Last Admin: 07/24/24 20:39 Dose: 0.4 mg Topiramate (Topiramate 100 Mg Tablet) 200 mg PO BID [facility] Last Admin: 07/25/24 09:03 Dose: 200 mg Home Medications ?Medication ?Instructions ?Recorded ?Confirmed ?Last Taken ?Type melatonin 10 mg tablet 10 mg PO BEDTIME Insomnia 11/13/23 07/23/24 Unknown History mirtazapine 15 mg tablet 15 mg PO BEDTIME 11/13/23 07/23/24 02/22/24 History potassium chloride 20 mEq 20 meq PO DAILY 03/20/24 07/23/24 Unknown History tablet,extended release quetiapine 50 mg tablet (Seroquel) 50 mg PO DAILY 03/20/24 07/23/24 Unknown History spironolactone 100 mg tablet 100 mg PO DAILY 07/23/24 07/23/24 Unknown History tamsulosin 0.4 mg capsule 0.4 mg PO BEDTIME 07/23/24 07/23/24 Unknown History topiramate 200 mg tablet 200 mg PO BID 07/23/24 07/23/24 Unknown History Physical Exam 2 Vital Signs: Vital Signs: Last Vital Signs Temp 97.8 F 07/25/24 15:17 Pulse 86 07/25/24 15:17 Resp 16 07/25/24 15:17 BP 103/52 L 07/25/24 15:17 Pulse Ox 97 07/25/24 15:17 O2 Del Method Room Air 07/25/24 15:17 BMI result Body Mass Index 27.7 Disheveled, appears older than stated age Grossly icteric Abdomen soft, distended, mildly tender, no guarding No respiratory distress Alert oriented x3, asterixis ++ Diffuse lower extremity edema Results Labs 07/25/24 05:37 07/25/24 05:37 Labs: Short CBC 07/25/24 Range/Units 05:37 WBC 6.8 (4.8-10.8) X10*3/uL Hgb 9.1 L (14.0-18.0) g/dl Hct 26.8 L (42.0-52.0) % Plt Count 81 L D (160-400) X10*3/uL BMP 07/25/24 05:37 Sodium 130 L Potassium 3.3 Chloride 90 L Carbon Dioxide 32 H BUN 9 Creatinine 0.85 Calcium 7.7 L Liver Function 07/25/24 Range/Units 05:37 Total Bilirubin 9.2 H (0.0-1.0) mg/dL AST 140 H (5-37) U/L ALT 55 H (0-40) U/L Alkaline Phosphatase 153 H (39-117) U/L Albumin 2.1 L (3.5-5.0) g/dL Microbiology Microbiology Results: Microbiology 07/24/24 15:08 Ascites Fluid Gram Stain - Final 07/24/24 15:08 Ascites Fluid Routine Culture - Preliminary No growth to date. 07/24/24 15:08 Ascites Fluid Anaerobic Culture - Preliminary No growth to date. Assessment and Plan (1) Abdominal pain: Status: Acute (2) Alcohol dependence: Status: Acute (3) Decompensation of cirrhosis of liver: Status: Inactive (4) Ascites: Status: Acute (5) Alcoholic hepatitis: Status: Acute Plan Decomp etOH related cirrhosis - MELD-Na 25 - Ascites and HE on exam - Alc hep MDF 35.5 No evidence of cholecystitis based on clinical assessment. Patient with LEFT sided abdominal discomfort, which did not get aggravated after fatty meal. Abdominal pain likely secondary to alcoholic gastritis versus alcoholic hepatitis. SBP r/o on diagnostic para. MDF 35.5 however given high risk of bleeding and multiple relapses of etOH would not recommend management with corticosteroids at this time. In any case, the small benefit is only short term. Plan: - Agree with continuing diet. Recommend low fat, high protein diet. Can add protein shakes 1-2 times a day - Hold off steroids as above - IV Vit K 10mg once - Lactulose 30g TID or as needed for goal 2-3 BMs per day - Cont iker 100. Add furosemide 40 once daily. - Pt will need primary prophylaxis for SBP on discharge as has low ascitic TP and high Mohinder score (Bactrim or cipro) - Monitor MELD labs daily - No indication for emergent EGD at this time and pt prefers to hold off as well - EtOH abstinence is of paramount importance. Pt declines addiction med consultation and would like to try quitting on his own first despite counseling on measures to achieve sustainable abstinence. - He was also encouraged to follow up with his outpatient violin teacher after discharge. Procedures Date of Service Date of Service: 07/25/24
[2024-07-25] MEDS: ondansetron HCL 4 MG/2 ML VIAL IVPUSH ×2 (16:22→21:20)
[2024-07-25] MEDS: Lactulose 20 GM/30 ML SOLUTION PO ×2 (16:22→19:51)
[2024-07-25 19:27] VITALS: BP 106/58; PULSE 90; RESP 16; TEMP 37.3; O2SAT 97
[2024-07-25] MEDS: Mirtazapine 15 MG TABLET PO (19:51)
[2024-07-25] MEDS: Tamsulosin HCL 0.4 MG CAPSULE PO (19:51)
[2024-07-25] MEDS: Melatonin 3 MG TABLET 9 MG PO (19:51)
--- NOTE | 2024-07-25 20:43 | PC.NURSE ---
Addendum entered by Brittany Andrews RN 07/26/24 00:44: Upon reassessment of Pt, Pt reports no vomiting since medicated, heart burn has resolved, resting comfortably in bed, respirations even and unlabored, sinus rhythm on telemetry. Addendum entered by Brittany Andrews RN 07/25/24 21:06: New orders added for tele monitoring, protonix, one time dose of ocreotide and an octreotide drip, Per MD CT or KUB not needed at this time, Pt medicated per DEC. Original Note: Pt informed this RN of multiple episodes of vomiting today, Pt continuing to vomit, upon assessment of emesis noted to be dark in color and coffee ground consistency, message with picture sent to MD.
--- NOTE | 2024-07-25 20:51 | PM.EVENT ---
Event Note Date of Service: 07/25/24 Event Note: Nurse reported coffee-ground emesis. Will initiate IV Protonix. Patient on ceftriaxone. Will also order octreotide. Appreciate GI consult. Will keep patient NPO Time Spent With Patient Time: Total time managing care of this patient today ____ minutes.
[2024-07-25] MEDS: Octreotide Acetate 100 MCG/ML AMPUL 50 MCG IVPUSH (21:03)
[2024-07-25] MEDS: Pantoprazole Sodium 40 MG/10 ML VIAL 80 MG IVPUSH (21:03)
[2024-07-25] MEDS: Octreotide Acetate 500 MCG in 0.9 % Sodium Chloride 500 ML 50.1 MCG IVCONT (21:51)
[2024-07-25] MEDS: cefTRIAXone sodium 2 GM in 0.9 % Sodium Chloride 50 ML IV (23:24)
[2024-07-26 02:58] VITALS: BP 113/57; PULSE 86; RESP 16; TEMP 36; O2SAT 97
[2024-07-26] MEDS: Pantoprazole Sodium 40 MG/10 ML VIAL IVPUSH (05:41)
[2024-07-26 06:36] LABS: INTERNATIONAL NORM RATIO 1.9 (0.9-1.1)
[2024-07-26 06:39] LABS: Hematocrit 24.3 % (42.0-52.0); Hemoglobin 8.4 g/dl (14.0-18.0); Mean Corpuscular HGB Conc 34.6 g/dl (31.0-36.0); Mean Corpuscular Hemoglobin 33.9 pg (27.0-33.0); Red Blood Count 2.48 X10*6/uL (4.60-5.80); Red Cell Distribution Width 21.3 % (11.0-16.0); White Blood Count 6.4 X10*3/uL (4.8-10.8)
[2024-07-26 06:41] LABS: Platelet Count 77 X10*3/uL (160-400)
[2024-07-26 07:00] LABS: Alanine Aminotransferase 45 U/L (0-40); Albumin Level 1.9 g/dL (3.5-5.0); Alkaline Phosphatase 144 U/L (39-117); Anion Gap 11 (12-20); Aspartate Amino Transferase 108 U/L (5-37); Blood Urea Nitrogen 9 mg/dL (9-16); Calcium 7.9 mg/dL (8.4-10.2); Carbon Dioxide 28 mmol/L (22-29); Chloride 94 mmol/L (96-108); Creatinine Clr Calc Pharmacy 87.7; Estimated Glomerular Filt Rate > 60; Glucose Random 112 mg/dL (60-115); Magnesium 1.9 mg/dL (1.6-2.6); Potassium 3.5 mmol/L (3.3-5.1); Sodium 129 mmol/L (135-145); Total Protein 5.9 g/dL (6.5-8.0)
[2024-07-26 07:10] LABS: Bilirubin Total 7.7 mg/dL (0.0-1.0)
[2024-07-26 07:19] VITALS: BP 100/60; PULSE 78; RESP 16; TEMP 37.1; O2SAT 96
[2024-07-26] MEDS: Octreotide Acetate 500 MCG in 0.9 % Sodium Chloride 500 ML 50.1 MCG IVCONT ×2 (07:56→18:14)
--- NOTE | 2024-07-26 09:15 | MHC.CLN ---
F/U NPO STARTING 07/25 DUE TO COFFEE-GROUND EMESIS. PER GI CONSULT, RECOMMENDS LOW FAT, HIGH PROTEIN DIET. MAY HAVE PROTEIN SHAKES 1-2 TIMES DAILY. RESUME DIET WHEN ABLE PER GI RECOMMENDATIONS. WEIGHT FLUCTUATION ANTICIPATED WITH ASCITES/PARACENTESIS. FOLLOW FOR DIET ADVANCEMENT, PO INTAKE AND WEIGHT.
[2024-07-26] MEDS: Phytonadione (Vit K1) 10 MG in 0.9 % Sodium Chloride 50 ML 51 MG IV (09:33)
[2024-07-26] MEDS: 0.9 % Sodium Chloride Flush 3 ML SYRINGE IVFLUSH ×2 (09:37→20:36)
--- NOTE | 2024-07-26 10:23 | MHC.CM.PN ---
Addendum entered by Suly Alexander 07/26/24 15:39: [facility] HAS OBTAINED INSURANCE AUTH FOR 07/27, CM WILL FOLLOW UP IN THE AM Original Note: EMR REVIEWED AND PER MD ROUNDS, PT IS NOT MEDICALLY CLEARED FOR DC TODAY, MAY BE READY TOMORROW FOR STR. PT/S/O AGREEABLE TO REHAB, [facility] IS FIRST CHOICE AND HAS OFFERED A BED PENDING AUTH. CENTER UPDATED AND WILL START INSURANCE AUTH PROCESS WITH [employer]. CM WILL CONTINUE TO FOLLOW FOR ANY CHANGE TO DC PLAN/NEEDS.
[2024-07-26] MEDS: metroNIDAZOLE/NS 500 MG/100 ML PIGGYBACK 100 MG IV ×2 (10:25→16:15)
[2024-07-26 11:54] VITALS: BP 100/60; PULSE 78; O2SAT 96
--- NOTE | 2024-07-26 12:23 | P.PNIM_ITS ---
Subjective Subjective Date of Service: 07/26/24 Interval History: reported coffee ground emesis overnight, started octreotide gtt and now NPO minimal abd discomfort has leg edema Review of Systems Review of Systems: Yes all other systems are reviewed and are negative Physical Exam 2 Vital Signs: Vital Signs: Last Vital Signs Temp 98.8 F 07/26/24 07:19 Pulse 78 07/26/24 11:54 Resp 16 07/26/24 07:19 BP 100/60 07/26/24 11:54 Pulse Ox 96 07/26/24 11:54 O2 Del Method Room Air 07/26/24 07:19 BMI result Body Mass Index 27.7 Gen: in no acute distress HEENT: sclera icteric, moist mucus membranes Neck: supple Lungs: clear to auscultation bilaterally Heart: regular rate and rhythm, no murmurs Abd: some epigastric tenderness, no Dewey sign Ext: 1+ bilateral edema of legs Skin: warm/well-perfused, jaundiced Neuro: alert and oriented x3, no focal findings, no asterixis Psych: appropriate affect Objective Data Active Medications Acetaminophen (Acetaminophen 325 Mg Tablet) 650 mg PO Q6H PRN PRN Reason: Pain, Mild (Pain Scale 1-3), fever or headache Calcium Carbonate (Calcium Carbonate 750 Mg Tab.Chew) 750 mg PO Q4H PRN PRN Reason: Heartburn Last Admin: 07/25/24 13:56 Dose: 750 mg Documented By: ELIO Furosemide (Furosemide 40 Mg Tablet) 40 mg PO DAILY [facility]; Protocol Ceftriaxone Sodium 2 gm/ (Sodium Chloride) 50 mls @ 100 mls/hr IV Q24H [facility] Last Infusion: 07/26/24 00:02 Dose: Infused Documented By: NAS Metronidazole (Flagyl) 500 mg in 100 mls @ 100 mls/hr IV Q8H [facility] Last Infusion: 07/26/24 12:22 Dose: Infused Documented By: ELIO Octreotide Acetate 500 mcg/ (Sodium Chloride) 501 mls @ 50.1 mls/hr IVCONT .Q10H [facility] Last Admin: 07/26/24 07:56 Dose: 50 mcg/hr, 50.1 mls/hr Documented By: ELIO Lactulose (Lactulose 20 Gm/30 Ml Solution) 20 gm PO BID [facility] Last Admin: 07/26/24 11:30 Dose: Not Given Documented By: ELIO Non-Admin Reason: Patient Refused Magnesium Hydroxide (Milk Of Magnesia 30 Ml Oral.Susp) 30 ml PO DAILY PRN PRN Reason: Constipation Melatonin (Melatonin 3 Mg Tablet) 9 mg PO BEDTIME [facility] Last Admin: 07/25/24 19:51 Dose: 9 mg Documented By: NAS Mirtazapine (Mirtazapine 15 Mg Tablet) 15 mg PO BEDTIME [facility] Last Admin: 07/25/24 19:51 Dose: 15 mg Documented By: ANS Ondansetron HCl (Ondansetron Hcl 4 Mg/2 Ml Vial) 4 mg IVPUSH Q8H PRN PRN Reason: Nausea and Vomiting Last Admin: 07/25/24 16:22 Dose: 4 mg Documented By: ELIO Pantoprazole Sodium (Pantoprazole Sodium 40 Mg/10 Ml Vial) 40 mg IVPUSH BID@0630,1630 [facility] Last Admin: 07/26/24 05:41 Dose: 40 mg Documented By: NAS Potassium Chloride (Potassium Chloride Er 20 Meq Tab.Er.Prt) 40 meq PO DAILY [facility] Last Admin: 07/25/24 09:03 Dose: 40 meq Documented By: ELIO Quetiapine Fumarate (Quetiapine Fumarate 50 Mg Tablet) 50 mg PO DAILY [facility] Last Admin: 07/25/24 09:03 Dose: 50 mg Documented By: ELIO Sodium Chloride (0.9 % Sodium Chloride Flush 3 Ml Syringe) [facility] Last Admin: 07/26/24 09:37 Dose: 3 ml Documented By: ELIO Spironolactone (Spironolactone 25 Mg Tablet) 100 mg PO DAILY [facility]; Protocol Last Admin: 07/25/24 09:03 Dose: 100 mg Documented By: ELIO Tamsulosin HCl (Tamsulosin Hcl 0.4 Mg Capsule) 0.4 mg PO BEDTIME [facility] Last Admin: 07/25/24 19:51 Dose: 0.4 mg Documented By: NAS Topiramate (Topiramate 100 Mg Tablet) 200 mg PO BID [facility] Last Admin: 07/25/24 19:51 Dose: 200 mg Documented By: NAS Labs 07/26/24 05:58 07/26/24 05:58 Labs: Laboratory Results - last 24 hr 07/26/24 05:58 MCV 98.0 MCH 33.9 H MCHC 34.6 RDW 21.3 H Plt Count 77 L MPV 10.0 Absolute Nucleated RBC 0.000 Nucleated RBC % (auto) 0.0 PT 22.0 H D INR 1.9 H Hold Blue Top SEE NOTE Anion Gap 11 L Estim Creat Clear Calc 87.7 Estimated GFR > 60 Random Glucose 112 Calcium 7.9 L Magnesium 1.9 Total Bilirubin 7.7 H AST 108 H ALT 45 H Alkaline Phosphatase 144 H Total Protein 5.9 L Albumin 1.9 L Microbiology Microbiology Results: Microbiology 07/24/24 15:08 Gram Stain - Final Ascites Fluid Routine Culture - Final No growth after 2 days Anaerobic Culture - Preliminary No growth to date. Assessment and Plan (1) Thrombocytopenia: Status: Acute (2) Hyponatremia: Status: Acute Plan d4 for 59yo M with decompensated EtOH cirrhosis + hx prostate CA presenting with abd pain, N/V for past 1 mo, noncompliant with meds x 2mo found to have ascites, hypoK, GB wall thickening now coffee-ground emesis coffee-ground emesis - NPO, octreotide gtt, IV PPI gtt, liquid sucralfate, T+S, EGD tomorrow per GI Recent endoscopy: 03/21/2024: Severe esophagitis with oozing, and bleeding from Dieulafoy lesion versus varix. Endoclips resulted in severe bleeding. Banding failed. Epi + hemospray applied. Patient was transferred to ICU. 02/24/2024: Severe esophagitis. Grade 1 varices. Portal hypertensive gastropathy. Possible gastric varices. 12/28/2023: Schatzki's ring. Hiatal hernia. Brief esophagitis. Small varices. hypoK - repleted ascites - diagnostic paracentesis 07/24/24; WBC count not meeting SBP criteria but on empiric ceftriaxone + metronidazole; follow Cx; continue spironolactone + add furosemide - per GI, will need primary SBP ppx upon discharge [ciprofloxacin or [id number]] GB wall thickening CBD dilation - could be due to cirrhosis; on IV ABX as above; Surgery consulted appreciated; HIDA as above; MRCP pending; both Surgery and GI doubt he has cholecystitis and his pain has improved and is not in the RUQ hepatic encephalopathy - lactulose EtOH hepatitis - MDF >32 but would not be a good candidate for steroids unless he can commit to stopping drinking AUD - declined Recovery Team support - prn CIWA; no withdrawal signs - continue topiramate prostatism - tamsulosin mood disorder - quetiapine + mirtazapine thrombocytopenia due to cirrhosis - monitor CBC coagulopathy due to cirrhosis - give IV vitamin K, recheck INR in AM VTE ppx - SCDs; no heparin given low plts + GI bleeding dispo - PT consulted, STR recommended In my clinical judgment, the patient requires continued inpatient hospitalization for the following reasons: IV ABX, question of cholecystitis, GIB Total time managing care of this patient today: 50 minutes. Quality Stroke Does the patient have a stroke diagnosis?: No VTE Prior VTE?: No VTE Risk Level:: Medical - moderate - high VTE Device Contraindication: N/A - Device Ordered VTE Drug Contraindication: Treatment Not Indicated
--- NOTE | 2024-07-26 13:02 | P.PNGI_ITS ---
Subjective Subjective Date of Service: 07/26/24 Interval History: Patient with episode of coffee-grounds overnight. Who was NPO but had just had some watermelon shortly before evaluation. Critical Care Time (minutes): 0 Physical Exam 2 Vital Signs: Vital Signs: Last Vital Signs Temp 98.8 F 07/26/24 07:19 Pulse 78 07/26/24 11:54 Resp 16 07/26/24 07:19 BP 100/60 07/26/24 11:54 Pulse Ox 96 07/26/24 11:54 O2 Del Method Room Air 07/26/24 07:19 BMI result Body Mass Index 27.7 Jaundiced Abd soft, distended Objective Data Labs 07/26/24 05:58 07/26/24 05:58 Labs: Laboratory Results - last 24 hr 07/26/24 05:58 WBC 6.4 RBC 2.48 L Hgb 8.4 L Hct 24.3 L MCV 98.0 MCH 33.9 H MCHC 34.6 RDW 21.3 H Plt Count 77 L MPV 10.0 Absolute Nucleated RBC 0.000 Nucleated RBC % (auto) 0.0 PT 22.0 H D INR 1.9 H Hold Blue Top SEE NOTE Sodium 129 L Potassium 3.5 Chloride 94 L Carbon Dioxide 28 Anion Gap 11 L BUN 9 Creatinine 0.95 Estim Creat Clear Calc 87.7 Estimated GFR > 60 Random Glucose 112 Calcium 7.9 L Magnesium 1.9 Total Bilirubin 7.7 H AST 108 H ALT 45 H Alkaline Phosphatase 144 H Total Protein 5.9 L Albumin 1.9 L Microbiology Microbiology Results: Microbiology 07/24/24 15:08 Ascites Fluid Gram Stain - Final 07/24/24 15:08 Ascites Fluid Routine Culture - Final No growth after 2 days 07/24/24 15:08 Ascites Fluid Anaerobic Culture - Preliminary No growth to date. Procedures Date of Service Date of Service: 07/26/24 Progress Note: A&P Assessment and plan (1) Hematemesis: Status: Acute (2) Abdominal pain: Status: Acute (3) Thrombocytopenia: Status: Acute (4) Decompensation of cirrhosis of liver: Status: Inactive Plan Ddx include esophagitis vs variceal bleeding vs PUD vs gastritis. Plan: - EGD tentatively tmrw - Will need re-evaluation of his fluid status and ascites prior to the procedure - Switch PPI to IV drip - Add carafate 10ml QID - Cont octreotide - Ok for clears today and NPO past midnight Time Spent With Patient Time: Total time managing care of this patient today ____ minutes. Quality Stroke Does the patient have a stroke diagnosis?: No VTE Prior VTE?: No VTE Risk Level:: Medical - moderate - high VTE Device Contraindication: N/A - Device Ordered VTE Drug Contraindication: Treatment Not Indicated
[2024-07-26 13:09] LABS: OBS Int Ctl Valid YES; OBS1 POSITIVE (NEGATIVE)
[2024-07-26] MEDS: Pantoprazole Sodium 80 MG in 0.9 % Sodium Chloride 80 ML 10 MG IV (14:25)
[2024-07-26 15:03] VITALS: BP 97/53; PULSE 87; RESP 16; TEMP 36.5; O2SAT 96
[2024-07-26] MEDS: Sucralfate Oral Suspension 1 GM/10 ML ORAL.SUSP PO ×2 (16:14→20:35)
[2024-07-26 19:45] VITALS: BP 106/56; PULSE 83; RESP 18; TEMP 36.3; O2SAT 97
[2024-07-26] MEDS: Melatonin 3 MG TABLET 9 MG PO (20:36)
[2024-07-26] MEDS: Lactulose 20 GM/30 ML SOLUTION PO (20:36)
[2024-07-26] MEDS: Topiramate 100 MG TABLET 200 MG PO (20:36)
[2024-07-26] MEDS: Tamsulosin HCL 0.4 MG CAPSULE PO (20:36)
[2024-07-26] MEDS: Mirtazapine 15 MG TABLET PO (20:36)
[2024-07-26] MEDS: ondansetron HCL 4 MG/2 ML VIAL IVPUSH (20:50)
--- NOTE | 2024-07-26 20:59 | PC.NURSE ---
Addendum entered by Ludy Wilde RN 07/26/24 23:13: No further emesis episodes. Pt tolerating clears until midnight when NPO as ordered. Handoff report given to oncoming RN at 23:00. Please see shift assessment, tasks in worklist, and MAR for full details. Original Note: Jig Grinder Set Up Operator assumed care of patient at 19:00. Jig Grinder Set Up Operator called pharmacy re: protonix gtt due to run out in approx 2-3 hours. Per discussion with pharmacy, this bag of protonix should end and patient is to received next dose as IVP protonix at 06:30 tomorrow morning 07/27 due to IV fluid shortages at this time. Pharmacy staff states this was discussed today with Dr. Marshall. 20:00 hour patient had episode of vomiting 150ml of bile. Abdomen noted to be semi-firm with generalized tenderness to palpation. Prn zofran given per MAR with effectiveness pending, though no further vomiting since administration noted. Covering Dr. Cummins was notified. No new orders advised. Plan of care continues.
[2024-07-27] VITALS (11 sets, daily range): BP systolic 91–122; BP diastolic 50–66; PULSE 58–101; RESP 15–20; TEMP 36.1–37.2; O2SAT 96–100
[2024-07-27] MEDS: Calcium Carbonate 750 MG TAB.CHEW PO ×2 (00:06→22:21)
[2024-07-27] MEDS: cefTRIAXone sodium 2 GM VIAL IVPUSH ×2 (00:07→23:11)
[2024-07-27] MEDS: metroNIDAZOLE/NS 500 MG/100 ML PIGGYBACK 100 MG IV ×4 (00:14→23:11)
[2024-07-27] MEDS: Octreotide Acetate 500 MCG in 0.9 % Sodium Chloride 500 ML 50.1 MCG IVCONT (04:14)
[2024-07-27] MEDS: Pantoprazole Sodium 40 MG/10 ML VIAL IVPUSH ×2 (05:30→19:31)
[2024-07-27 07:18] LABS: Hematocrit 23.5 % (42.0-52.0); Hemoglobin 7.9 g/dl (14.0-18.0); Mean Corpuscular HGB Conc 33.6 g/dl (31.0-36.0); Mean Corpuscular Hemoglobin 33.2 pg (27.0-33.0); Mean Corpuscular Volume 98.7 fL (80.0-98.0); Mean Platelet Volume 9.7 fL (9.4-12.4); Red Blood Count 2.38 X10*6/uL (4.60-5.80); Red Cell Distribution Width 21.8 % (11.0-16.0)
[2024-07-27 07:26] LABS: Platelet Count 76 X10*3/uL (160-400)
[2024-07-27 07:32] LABS: Alanine Aminotransferase 45 U/L (0-40); Albumin Level 1.9 g/dL (3.5-5.0); Alkaline Phosphatase 136 U/L (39-117); Anion Gap 10 (12-20); Aspartate Amino Transferase 106 U/L (5-37); Bilirubin Total 7.1 mg/dL (0.0-1.0); Blood Urea Nitrogen 8 mg/dL (9-16); Calcium 7.9 mg/dL (8.4-10.2); Carbon Dioxide 27 mmol/L (22-29); Chloride 94 mmol/L (96-108); Creatinine Clr Calc Pharmacy 93.6; Estimated Glomerular Filt Rate > 60; Glucose Random 114 mg/dL (60-115); Magnesium 1.9 mg/dL (1.6-2.6); Potassium 3.2 mmol/L (3.3-5.1); Sodium 128 mmol/L (135-145); Total Protein 6.1 g/dL (6.5-8.0)
[2024-07-27 07:50] LABS: INTERNATIONAL NORM RATIO 1.7 (0.9-1.1); Prothrombin Time 20.1 SEC (10.9-12.4)
--- NOTE | 2024-07-27 09:05 | HO.ANESPROP2 ---
HPI - Anesthesia Eval Consult details Narrative: GI bleed PMFSH Active Problems Active Problems: All Active Problems Hematemesis (Acute) Alcoholic hepatitis (Acute) Abdominal pain (Acute) Thrombocytopenia (Acute) Nausea & vomiting (Acute) Hyponatremia (Acute) Acute hypokalemia (Acute) Dysphagia (Acute) Acute respiratory failure with hypoxia (Acute) Septic shock (Acute) Bladder neck obstruction (Acute) History of prostate cancer (Acute) Acidosis, lactic (Acute) Hypokalemia (Acute) Esophageal varices (Acute) Anemia (Acute) Acute upper gastrointestinal bleeding (Acute) Acute lactic acidosis (Acute) Hypokalemia (Acute) Esophageal varices (Acute) Portal hypertensive gastropathy (Acute) Erosive esophagitis (Acute) Alcohol dependence (Acute) Anemia (Acute) Acute hyponatremia (Acute) Acute GI bleeding (Acute) Ascites (Acute) Encephalopathy (Acute) NATHANIEL (acute kidney injury) (Acute) Anasarca (Acute) History of radiation therapy (Acute) Fatty liver (Acute) Hyponatremia (Acute) Alcoholic cirrhosis of liver with ascites (Acute) Hypertension (Acute) Hyperlipidemia (Acute) Depression (Acute) Anxiety (Acute) Past Medical History Medical History Congestive heart failure Anemia ETOH abuse Alcoholic cirrhosis PTSD (post-traumatic stress disorder) Hyponatremia Acute hyponatremia NATHANIEL (acute kidney injury) Acute metabolic encephalopathy Falls Alcoholic cirrhosis of liver with ascites Prostate cancer Depression Hyperlipidemia Hypertension Anxiety Family History Family history of problems with anesthesia: No Surgical History History of Problems with Anesthesia: No Social History Social History Household Members: Significant Other Household Members Other:: fiancee Housing: Condominium Do you presently have visiting nurse or other home services: No Unable to assess alcohol history related to: Refusing to respond Alcohol intake: former Comment: bilateral wrist restraints for airway safety Patient Tobacco Use Status: Current everyday Tobacco user Tobacco use type: Cigarette Cigarette Packs Per Day: 2 Cigarettes Per Day: 3 Years Smoked: 25 e-Cigarette/Vaping Use: Currently Using Second Hand Smoke Exposure: No Substance Use Type: Marijuana Advance Directives Date on File: 11/11/21 service: No Current occupational status: disabled Meds Allergies Allergy/AdvReac Type Severity Reaction Status Date / Time Fish Containing Products Allergy Severe THROAT Verified 07/23/24 12:02 SWELLING peanut [Peanut] Allergy Severe THROAT Verified 07/23/24 12:02 SWELLING Active Medications: Current Medications Acetaminophen (Acetaminophen 325 Mg Tablet) 650 mg PO Q6H PRN PRN Reason: Pain, Mild (Pain Scale 1-3), fever or headache Calcium Carbonate (Calcium Carbonate 750 Mg Tab.Chew) 750 mg PO Q4H PRN PRN Reason: Heartburn Last Admin: 07/27/24 00:06 Dose: 750 mg Ceftriaxone Sodium (Ceftriaxone Sodium 2 Gm Vial) 2 gm IVPUSH Q24H [facility] Last Admin: 07/27/24 00:07 Dose: 2 gm Furosemide (Furosemide 40 Mg Tablet) 40 mg PO DAILY [facility]; Protocol Metronidazole (Flagyl) 500 mg in 100 mls @ 100 mls/hr IV Q8H [facility] Last Infusion: 07/27/24 01:15 Dose: Infused Octreotide Acetate 500 mcg/ (Sodium Chloride) 501 mls @ 50.1 mls/hr IVCONT .Q10H [facility] Last Admin: 07/27/24 04:14 Dose: 50 mcg/hr, 50.1 mls/hr Potassium Chloride (Potassium Chloride/H20) 10 meq in 100 mls @ 100 mls/hr IV Q1H [facility] Stop: 07/27/24 10:14 Lactulose (Lactulose 20 Gm/30 Ml Solution) 20 gm PO BID [facility] Last Admin: 07/26/24 20:36 Dose: 20 gm Magnesium Hydroxide (Milk Of Magnesia 30 Ml Oral.Susp) 30 ml PO DAILY PRN PRN Reason: Constipation Melatonin (Melatonin 3 Mg Tablet) 9 mg PO BEDTIME [facility] Last Admin: 07/26/24 20:36 Dose: 9 mg Mirtazapine (Mirtazapine 15 Mg Tablet) 15 mg PO BEDTIME [facility] Last Admin: 07/26/24 20:36 Dose: 15 mg Ondansetron HCl (Ondansetron Hcl 4 Mg/2 Ml Vial) 4 mg IVPUSH Q8H PRN PRN Reason: Nausea and Vomiting Last Admin: 07/26/24 20:50 Dose: 4 mg Pantoprazole Sodium (Pantoprazole Sodium 40 Mg/10 Ml Vial) 40 mg IVPUSH BID@0630,1830 [facility] Last Admin: 07/27/24 05:30 Dose: 40 mg Potassium Chloride (Potassium Chloride Er 20 Meq Tab.Er.Prt) 40 meq PO DAILY [facility] Last Admin: 07/26/24 13:43 Dose: Not Given Quetiapine Fumarate (Quetiapine Fumarate 50 Mg Tablet) 50 mg PO DAILY [facility] Last Admin: 07/26/24 13:44 Dose: Not Given Sodium Chloride (0.9 % Sodium Chloride Flush 3 Ml Syringe) 3 ml IVFLUSH QSHIFT [facility] Last Admin: 07/26/24 20:36 Dose: 3 ml Spironolactone (Spironolactone 25 Mg Tablet) 100 mg PO DAILY [facility]; Protocol Last Admin: 07/26/24 12:23 Dose: Not Given Sucralfate (Sucralfate Oral Suspension 1 Gm/10 Ml Oral.Susp) 1 gm PO QIDACHS [facility] Last Admin: 07/26/24 20:35 Dose: 1 gm Tamsulosin HCl (Tamsulosin Hcl 0.4 Mg Capsule) 0.4 mg PO BEDTIME [facility] Last Admin: 07/26/24 20:36 Dose: 0.4 mg Topiramate (Topiramate 100 Mg Tablet) 200 mg PO BID [facility] Last Admin: 07/26/24 20:36 Dose: 200 mg Home Medications ?Medication ?Instructions ?Recorded ?Confirmed ?Last Taken ?Type melatonin 10 mg tablet 10 mg PO BEDTIME Insomnia 11/13/23 07/23/24 Unknown History mirtazapine 15 mg tablet 15 mg PO BEDTIME 11/13/23 07/23/24 02/22/24 History potassium chloride 20 mEq 20 meq PO DAILY 03/20/24 07/23/24 Unknown History tablet,extended release quetiapine 50 mg tablet (Seroquel) 50 mg PO DAILY 03/20/24 07/23/24 Unknown History spironolactone 100 mg tablet 100 mg PO DAILY 07/23/24 07/23/24 Unknown History tamsulosin 0.4 mg capsule 0.4 mg PO BEDTIME 07/23/24 07/23/24 Unknown History topiramate 200 mg tablet 200 mg PO BID 07/23/24 07/23/24 Unknown History Exam Height,Weight and Vital Signs: Height 5 ft 8 in Weight 82.6 kg Last Vital Signs Temp 97.8 F 07/27/24 07:41 Pulse 75 07/27/24 07:41 Resp 16 07/27/24 07:41 BP 107/55 L 07/27/24 07:41 Pulse Ox 97 07/27/24 07:41 O2 Del Method Room Air 07/27/24 07:41 Pertinent Lab Results Pertinent Lab Results: Laboratory Tests 07/23/24 07/23/24 07/23/24 12:28 12:52 16:13 WBC 5.9 RBC 3.20 L Hgb 10.7 L Hct 30.6 L MCV 95.6 MCH 33.4 H MCHC 35.0 RDW 21.1 H Plt Count 68 L D MPV 9.4 Immature Gran % (Auto) 1.0 H Neut % (Auto) 69.9 Lymph % (Auto) 16.0 L Sumner % (Auto) 9.1 Eos % (Auto) 3.5 Baso % (Auto) 0.5 Lymph # (Auto) 1.0 L [place]ner # (Auto) 0.5 Eos # (Auto) 0.2 Baso # (Auto) 0.0 Abs Immat Gran (auto) 0.06 H Absolute Neuts (auto) 4.1 Absolute Nucleated RBC 0.000 Nucleated RBC % (auto) 0.0 PT 17.7 H INR 1.5 H Hold Blue Top Sodium 129 L Potassium 2.4 L* D Chloride 85 L D Carbon Dioxide 31 H Anion Gap 15 BUN 7 L Creatinine 0.72 Estim Creat Clear Calc 115.7 Estimated GFR > 60 Random Glucose 109 Calcium 7.8 L D Magnesium 2.1 Total Bilirubin 9.7 H Direct Bilirubin 5.2 H AST 148 H ALT 58 H Alkaline Phosphatase 172 H Ammonia 46 C-Reactive Protein Total Protein 6.9 Albumin 2.2 L Amylase 30 Lipase [address] [place] Urine Appearance Hazy Urine pH 6.5 Ur Specific [place] >= 1.030 H Urine Protein See Note Urine Glucose (UA) See Note Urine Ketones See Note Urine Blood See Note Urine Nitrite See Note Ur Leukocyte Esterase Trace H Urine RBC 0-2 Urine WBC 0-5 Ur Squamous Epith Cells 11-20 Urine Bacteria None Seen Hyaline Casts 0-2 Peritoneal pH Peritoneal WBC Peritoneal RBC Periton Lymphocytes Peritoneal Monocytes Peritoneal Other Cells Peritoneal Tot Protein Peritoneal Albumin Peritoneal Glucose Stool Occult Blood Urine Opiates Screen Not Detected Ur Buprenorphine Scrn Not Detected Ur Oxycodone Screen Not Detected Urine Methadone Screen Not Detected Urine Fentanyl Screen Not Detected Ur Barbiturates Screen Not Detected Ur Phencyclidine Scrn Not Detected Ur Amphetamines Screen Not Detected U Benzodiazepines Scrn Not Detected Urine Cocaine Screen Not Detected U Marijuana (THC) Screen POSITIVE H Ethyl Alcohol 31 Influenza Type A (PCR) NEGATIVE Influenza Type B (PCR) NEGATIVE RSV RNA Qual (PCR) NEGATIVE SARS-CoV-2 RNA (RT-PCR) NEGATIVE Blood Type Antibody Screen 07/24/24 07/24/24 07/25/24 04:50 15:08 05:37 WBC 5.9 6.8 RBC 2.89 L 2.74 L Hgb 9.5 L 9.1 L Hct 28.1 L 26.8 L MCV 97.2 97.8 MCH 32.9 33.2 H MCHC 33.8 34.0 RDW 21.4 H 21.5 H Plt Count 62 L 81 L D MPV 9.5 9.9 Immature Gran % (Auto) 0.3 Neut % (Auto) 72.5 Lymph % (Auto) 13.5 L Sumner % (Auto) 10.2 Eos % (Auto) 3.2 Baso % (Auto) 0.3 Lymph # (Auto) 0.8 L [place]ner # (Auto) 0.6 Eos # (Auto) 0.2 Baso # (Auto) 0.0 Abs Immat Gran (auto) 0.02 Absolute Neuts (auto) 4.3 Absolute Nucleated RBC 0.000 0.000 Nucleated RBC % (auto) 0.0 0.0 PT INR Hold Blue Top Sodium 130 L 130 L Potassium 2.9 L* D 3.3 Chloride 89 L 90 L Carbon Dioxide 33 H 32 H Anion Gap 11 L 11 L BUN 7 L 9 Creatinine 0.69 0.85 Estim Creat Clear Calc 120.7 98.0 Estimated GFR > 60 > 60 Random Glucose 99 108 Calcium 7.6 L 7.7 L Magnesium 1.9 Total Bilirubin 9.7 H 9.2 H Direct Bilirubin AST 145 H 140 H ALT 53 H 55 H Alkaline Phosphatase 160 H 153 H Ammonia C-Reactive Protein 2.74 H Total Protein 6.3 L 6.3 L Albumin 2.0 L 2.1 L Amylase Lipase Urine Color Urine Appearance Urine pH Ur Specific [place] Urine Protein Urine Glucose (UA) Urine Ketones Urine Blood Urine Nitrite Ur Leukocyte Esterase Urine RBC Urine WBC Ur Squamous Epith Cells Urine Bacteria Hyaline Casts Peritoneal pH 7.55 Peritoneal WBC 0.045 Peritoneal RBC < 0.002 Periton Lymphocytes 87 Peritoneal Monocytes 9 Peritoneal Other Cells 4 Peritoneal Tot Protein 0.7 Peritoneal Albumin 0.5 Peritoneal Glucose 73 Stool Occult Blood Urine Opiates Screen Ur Buprenorphine Scrn Ur Oxycodone Screen Urine Methadone Screen Urine Fentanyl Screen Ur Barbiturates Screen Ur Phencyclidine Scrn Ur Amphetamines Screen U Benzodiazepines Scrn Urine Cocaine Screen U Marijuana (THC) Screen Ethyl Alcohol Influenza Type A (PCR) Influenza Type B (PCR) RSV RNA Qual (PCR) SARS-CoV-2 RNA (RT-PCR) Blood Type Antibody Screen 07/26/24 07/26/24 07/26/24 05:58 12:43 12:49 WBC 6.4 RBC 2.48 L Hgb 8.4 L Hct 24.3 L MCV 98.0 MCH 33.9 H MCHC 34.6 RDW 21.3 H Plt Count 77 L MPV 10.0 Immature Gran % (Auto) Neut % (Auto) Lymph % (Auto) [place]ner % (Auto) Eos % (Auto) Baso % (Auto) Lymph # (Auto) [place] # (Auto) Eos # (Auto) Baso # (Auto) Abs Immat Gran (auto) Absolute Neuts (auto) Absolute Nucleated RBC 0.000 Nucleated RBC % (auto) 0.0 PT 22.0 H D INR 1.9 H Hold Blue Top SEE NOTE Sodium 129 L Potassium 3.5 Chloride 94 L Carbon Dioxide 28 Anion Gap 11 L BUN 9 Creatinine 0.95 Estim Creat Clear Calc 87.7 Estimated GFR > 60 Random Glucose 112 Calcium 7.9 L Magnesium 1.9 Total Bilirubin 7.7 H Direct Bilirubin AST 108 H ALT 45 H Alkaline Phosphatase 144 H Ammonia C-Reactive Protein Total Protein 5.9 L Albumin 1.9 L Amylase Lipase Urine Color Urine Appearance Urine pH Ur Specific [place] Urine Protein Urine Glucose (UA) Urine Ketones Urine Blood Urine Nitrite Ur Leukocyte Esterase Urine RBC Urine WBC Ur Squamous Epith Cells Urine Bacteria Hyaline Casts Peritoneal pH Peritoneal WBC Peritoneal RBC Periton Lymphocytes Peritoneal Monocytes Peritoneal Other Cells Peritoneal Tot Protein Peritoneal Albumin Peritoneal Glucose Stool Occult Blood POSITIVE Urine Opiates Screen Ur Buprenorphine Scrn Ur Oxycodone Screen Urine Methadone Screen Urine Fentanyl Screen Ur Barbiturates Screen Ur Phencyclidine Scrn Ur Amphetamines Screen U Benzodiazepines Scrn Urine Cocaine Screen U Marijuana (THC) Screen Ethyl Alcohol Influenza Type A (PCR) Influenza Type B (PCR) RSV RNA Qual (PCR) SARS-CoV-2 RNA (RT-PCR) Blood Type A Positive Antibody Screen NEGATIVE 10/12/24 06:53 WBC 5.0 RBC 2.38 L Hgb 7.9 L Hct 23.5 L MCV 98.7 H MCH 33.2 H MCHC 33.6 RDW 21.8 H Plt Count 76 L MPV 9.7 Immature Gran % (Auto) Neut % (Auto) Lymph % (Auto) Sumner % (Auto) Eos % (Auto) Baso % (Auto) Lymph # (Auto) [place] # (Auto) Eos # (Auto) Baso # (Auto) Abs Immat Gran (auto) Absolute Neuts (auto) Absolute Nucleated RBC 0.000 Nucleated RBC % (auto) 0.0 PT 20.1 H INR 1.7 H Hold Blue Top Sodium 128 L Potassium 3.2 L Chloride 94 L Carbon Dioxide 27 Anion Gap 10 L BUN 8 L Creatinine 0.89 Estim Creat Clear Calc 93.6 Estimated GFR > 60 Random Glucose 114 Calcium 7.9 L Magnesium 1.9 Total Bilirubin 7.1 H Direct Bilirubin AST 106 H ALT 45 H Alkaline Phosphatase 136 H Ammonia C-Reactive Protein Total Protein 6.1 L Albumin 1.9 L Amylase Lipase Urine Color Urine Appearance Urine pH Ur Specific [place] Urine Protein Urine Glucose (UA) Urine Ketones Urine Blood Urine Nitrite Ur Leukocyte Esterase Urine RBC Urine WBC Ur Squamous Epith Cells Urine Bacteria Hyaline Casts Peritoneal pH Peritoneal WBC Peritoneal RBC Periton Lymphocytes Peritoneal Monocytes Peritoneal Other Cells Peritoneal Tot Protein Peritoneal Albumin Peritoneal Glucose Stool Occult Blood Urine Opiates Screen Ur Buprenorphine Scrn Ur Oxycodone Screen Urine Methadone Screen Urine Fentanyl Screen Ur Barbiturates Screen Ur Phencyclidine Scrn Ur Amphetamines Screen U Benzodiazepines Scrn Urine Cocaine Screen U Marijuana (THC) Screen Ethyl Alcohol Influenza Type A (PCR) Influenza Type B (PCR) RSV RNA Qual (PCR) SARS-CoV-2 RNA (RT-PCR) Blood Type Antibody Screen Airway Mallampati Class: II TM Dist: >3cm Neck ROM: Full Loose/Missing/Broken Teeth: No Heart: RRR Lungs: CTA Assessment and Plan Assessment Anesthesia Assessment: Anesthesia Plan Discussed and Chart Reviewed Final Anesthetic Review Family History of Problems with Anesthesia: No History of Problems with Anesthesia: No NPO: Yes ASA Class: III Final Preanesthetic Review: No Changes in Pt Med Stat, Meds/Allgs Chart Reviewed, Consent Obtained/Reviewed and Anes Risks/Benef Reviewed Patient Risk: High Procedure Risk: Low Anesthetic Plan Anesthetic Plan: MAC: Disposition: Standard PACU
[2024-07-27] MEDS: Potassium Chloride/H20 10 MEQ/100 ML PIGGYBACK 50 MEQ IV ×2 (09:07→12:58)
[2024-07-27] MEDS: 0.9 % Sodium Chloride Flush 3 ML SYRINGE IVFLUSH ×3 (09:07→19:42)
--- NOTE | 2024-07-27 09:17 | MHC.SHP ---
Pre-Procedural Eval Section A - 24 Hr Update-Section A only Date of Service: 07/27/24 The patient is an INPATIENT: Yes The patient has been examined within 24 hours of the surgical procedure. The History & Physical has been completed within 30 days and I have reviewed it.: Yes Section B - Complete if H&P > 30 days Chief Complaint: nausea/vomiting Allergies: Allergies Allergy/AdvReac Type Severity Reaction Status Date / Time Fish Containing Products Allergy Severe THROAT Verified 07/23/24 12:02 SWELLING peanut [Peanut] Allergy Severe THROAT Verified 07/23/24 12:02 SWELLING Plan Diagnosis/Plan: Unchanged I have reviewed the history and physical and performed a pertinent physical examination on my patient. No changes have occurred unless specified. Time Spent With Patient Time: Total time managing care of this patient today ____ minutes.
--- NOTE | 2024-07-27 09:40 | P.OP_ITS ---
Operative Note Operative Note Date of Service: 07/27/24 Narrative: Procedure: Esophagogastroduodenoscopy Endoscopist: Yoana Gibson MD Indication: UGIB, cirrhosis Anesthesia Provider: Dr Zechariah Silva Anesthesia Type: MAC ?? EGD Procedure:?? The procedure, indications, preparation and potential complications were revi ewed with the patient, who indicated understanding and gave written informed consent to proceed. A physical exam was performed. The endoscope was introduced through the mouth, and advanced to the second part of duodenum. The mucosa was carefully examined on slow withdrawal of the endoscope. The patient tolerated the procedure well. There were no immediate complications.? ? EGD Findings:? * Esophagus:? Severe esophagitis with ulceration and spontaneous oozing from sloughing mucosa noted from 26 cm to 36 cm. The Z line was at 36 cm. Hemospray was applied for hemostasis. There was a moderate sized hiatal hernia with diaphragmatic hiatus at 40 cm. No varices could be appreciated. * Stomach:? Diffuse congestion and erythema in mosaic pattern consistent with portal hypertensive gastropathy was noted in the whole stomach. Retroflexion in the cardia showed Hill grade 3 hernia. * Duodenum:? Diffuse congestion, edema and erythema in mosaic pattern consistent with portal hypertensive duodenopathy was noted in the whole stomach. ? EGD Impressions:? * Grade D esophagitis with spontaneous oozing (hemospray) * Hiatal hernia * Portal hypertensive gastropathy * Normal duodenum (biopsy) ?? Recommendations:?? * Clear liquids today, to start 6 hours after procedure time (i.e start around 4pm) * Cont PPI drip x 48h and then transition to high dose protonix 40 mg BID * Carafate 10ml liquid QID * Stay upright for at least 60 mins after meals * Avoid etOH, smoking and NSAIDs
--- NOTE | 2024-07-27 11:45 | HO.PM.IMPN ---
Subjective Subjective Date of Service: 07/27/24 Interval History: EGD done, showed severe esophagitis no abd pain Review of Systems Review of Systems: Yes all other systems are reviewed and are negative Physical Exam Vital Signs: Vital Signs: Last Vital Signs Temp 97 F 07/27/24 10:45 Pulse 61 07/27/24 10:45 Resp 16 07/27/24 10:45 BP 107/58 L 07/27/24 10:45 Pulse Ox 99 07/27/24 10:45 O2 Del Method Room Air 07/27/24 10:45 O2 Flow Rate 6 07/27/24 10:00 BMI result Body Mass Index 27.7 Gen: in no acute distress HEENT: sclera icteric, moist mucus membranes Neck: supple Lungs: clear to auscultation bilaterally Heart: regular rate and rhythm, no murmurs Abd: some epigastric tenderness, no Dewey sign Ext: 1+ bilateral edema of legs Skin: warm/well-perfused, jaundiced Neuro: alert and oriented x3, no focal findings, no asterixis Psych: appropriate affect Objective Data Active Medications Acetaminophen (Acetaminophen 325 Mg Tablet) 650 mg PO Q6H PRN PRN Reason: Pain, Mild (Pain Scale 1-3), fever or headache Calcium Carbonate (Calcium Carbonate 750 Mg Tab.Chew) 750 mg PO Q4H PRN PRN Reason: Heartburn Last Admin: 07/27/24 00:06 Dose: 750 mg Documented By: DARSHAN Ceftriaxone Sodium (Ceftriaxone Sodium 2 Gm Vial) 2 gm IVPUSH Q24H [facility] Last Admin: 07/27/24 00:07 Dose: 2 gm Documented By: DARSHAN Fentanyl (Fentanyl Citrate/Pf 100 Mcg/2 Ml Vial) 25 mcg IVPUSH Q5M PRN PRN Reason: Pain, Moderate to Severe (Pain Scale 4-10) Stop: 07/27/24 15:07 Furosemide (Furosemide 40 Mg Tablet) 40 mg PO DAILY [facility]; Protocol Metronidazole (Flagyl) 500 mg in 100 mls @ 100 mls/hr IV Q8H [facility] Last Admin: 07/27/24 09:05 Dose: 100 mls/hr Documented By: SOM Lactulose (Lactulose 20 Gm/30 Ml Solution) 20 gm PO BID [facility] Last Admin: 07/26/24 20:36 Dose: 20 gm Documented By: ROSALIA Magnesium Hydroxide (Milk Of Magnesia 30 Ml Oral.Susp) 30 ml PO DAILY PRN PRN Reason: Constipation Melatonin (Melatonin 3 Mg Tablet) 9 mg PO BEDTIME [facility] Last Admin: 07/26/24 20:36 Dose: 9 mg Documented By: ROSALIA Mirtazapine (Mirtazapine 15 Mg Tablet) 15 mg PO BEDTIME [facility] Last Admin: 07/26/24 20:36 Dose: 15 mg Documented By: ROSALIA Naloxone HCl (Naloxone Hcl 0.4 Mg/Ml Vial) 0.04 mg IVPUSH Q5M PRN PRN Reason: Excessive sedation or RR < 8 Ondansetron HCl (Ondansetron Hcl 4 Mg/2 Ml Vial) 4 mg IVPUSH Q8H PRN PRN Reason: Nausea and Vomiting Last Admin: 07/26/24 20:50 Dose: 4 mg Documented By: ROSALIA Ondansetron HCl (Ondansetron Hcl 4 Mg/2 Ml Vial) 4 mg IVPUSH ONCE PRN PRN Reason: Nausea and Vomiting Stop: 07/27/24 15:08 Pantoprazole Sodium (Pantoprazole Sodium 40 Mg/10 Ml Vial) 40 mg IVPUSH BID@0630,1830 [facility] Last Admin: 07/27/24 05:30 Dose: 40 mg Documented By: DARSHAN Potassium Chloride (Potassium Chloride Er 20 Meq Tab.Er.Prt) 40 meq PO DAILY [facility] Last Admin: 07/26/24 13:43 Dose: Not Given Documented By: ELIO Non-Admin Reason: NPO Quetiapine Fumarate (Quetiapine Fumarate 50 Mg Tablet) 50 mg PO DAILY [facility] Last Admin: 07/26/24 13:44 Dose: Not Given Documented By: ELIO Non-Admin Reason: NPO Sodium Chloride (0.9 % Sodium Chloride Flush 3 Ml Syringe) 3 ml IVFLUSH QSHIFT [facility] Last Admin: 07/27/24 09:07 Dose: 3 ml Documented By: SOM Spironolactone (Spironolactone 25 Mg Tablet) 100 mg PO DAILY [facility]; Protocol Last Admin: 07/26/24 12:23 Dose: Not Given Documented By: ELIO Non-Admin Reason: low BP Sucralfate (Sucralfate Oral Suspension 1 Gm/10 Ml Oral.Susp) 1 gm PO QIDACHS [facility] Last Admin: 07/26/24 20:35 Dose: 1 gm Documented By: ROSALIA Tamsulosin HCl (Tamsulosin Hcl 0.4 Mg Capsule) 0.4 mg PO BEDTIME [facility] Last Admin: 07/26/24 20:36 Dose: 0.4 mg Documented By: ROSALIA Topiramate (Topiramate 100 Mg Tablet) 200 mg PO BID [facility] Last Admin: 07/26/24 20:36 Dose: 200 mg Documented By: ROSALIA Labs 07/27/24 06:53 07/27/24 06:53 Labs: Laboratory Results - last 24 hr 07/26/24 07/26/24 07/27/24 12:43 12:49 06:53 MCV 98.7 H MCH 33.2 H MCHC 33.6 RDW 21.8 H Plt Count 76 L MPV 9.7 Absolute Nucleated RBC 0.000 Nucleated RBC % (auto) 0.0 PT 20.1 H INR 1.7 H Anion Gap 10 L Estim Creat Clear Calc 93.6 Estimated GFR > 60 Random Glucose 114 Calcium 7.9 L Magnesium 1.9 Total Bilirubin 7.1 H AST 106 H ALT 45 H Alkaline Phosphatase 136 H Total Protein 6.1 L Albumin 1.9 L Stool Occult Blood POSITIVE Blood Type A Positive Antibody Screen NEGATIVE Crossmatch See Detail Microbiology Microbiology Results: Microbiology 07/24/24 15:08 Gram Stain - Final Ascites Fluid Routine Culture - Final No growth after 2 days Anaerobic Culture - Preliminary No growth to date. Assessment and Plan (1) Thrombocytopenia: Status: Acute (2) Hyponatremia: Status: Acute Plan d5 for 59yo M with decompensated EtOH cirrhosis + hx prostate CA presenting with abd pain, N/V for past 1 mo, noncompliant with meds x 2mo found to have ascites, hypoK, GB wall thickening now coffee-ground emesis acute blood loss anemia due to UGIB due to esophagitis - EGD 07/[address] Gibson: Grade D esophagitis with spontaneous oozing (hemospray) Hiatal hernia Portal hypertensive gastropathy Normal duodenum (biopsy) - clears in 6 hr, IV PPI x48h, sucralfate; avoid EtOH, smoking + NSAIDs; d/c octreogide - outpt GI f/u - will transfuse 1u pRBCs today for Hb 7.9 hypoK - replete, recheck level ascites - diagnostic paracentesis 07/24/24; WBC count not meeting SBP criteria but on empiric ceftriaxone + metronidazole; Cx negative; continue spironolactone + furosemide - per GI, will need primary SBP ppx upon discharge [ciprofloxacin or [id number]] GB wall thickening CBD dilation - could be due to cirrhosis; on IV ABX as above; Surgery consulted appreciated; HIDA as above; MRCP read pending; both Surgery and GI doubt he has cholecystitis and his pain has improved and was not in the RUQ hepatic encephalopathy - lactulose EtOH hepatitis - MDF >32 but would not be a good candidate for steroids unless he can commit to stopping drinking AUD - declined Recovery Team support - prn CIWA; no withdrawal signs - continue topiramate prostatism - tamsulosin mood disorder - quetiapine + mirtazapine thrombocytopenia due to cirrhosis - monitor CBC coagulopathy due to cirrhosis - given IV vitamin K, recheck INR in AM VTE ppx - SCDs; no heparin given low plts + GI bleeding dispo - PT consulted, STR recommended In my clinical judgment, the patient requires continued inpatient hospitalization for the following reasons: IV ABX, IV PPI, question of cholecystitis, placement Total time managing care of this patient today: 45 minutes. Quality Stroke Does the patient have a stroke diagnosis?: No VTE Prior VTE?: No VTE Risk Level:: Medical - moderate - high VTE Device Contraindication: N/A - Device Ordered VTE Drug Contraindication: Treatment Not Indicated
[2024-07-27] MEDS: Sucralfate Oral Suspension 1 GM/10 ML ORAL.SUSP PO ×2 (16:49→19:42)
[2024-07-27] MEDS: Melatonin 3 MG TABLET 9 MG PO (19:42)
[2024-07-27] MEDS: Tamsulosin HCL 0.4 MG CAPSULE PO (19:42)
[2024-07-27] MEDS: Mirtazapine 15 MG TABLET PO (19:42)
[2024-07-27] MEDS: Lactulose 20 GM/30 ML SOLUTION PO (19:42)
[2024-07-27] MEDS: Topiramate 100 MG TABLET 200 MG PO (19:42)
[2024-07-28 04:00] VITALS: BP 109/61; PULSE 66; RESP 16; TEMP 36.4; O2SAT 98
[2024-07-28] MEDS: Pantoprazole Sodium 40 MG/10 ML VIAL IVPUSH ×2 (05:33→18:08)
[2024-07-28 06:49] LABS: Alanine Aminotransferase 46 U/L (0-40); Albumin Level 1.9 g/dL (3.5-5.0); Alkaline Phosphatase 132 U/L (39-117); Anion Gap 12 (12-20); Aspartate Amino Transferase 117 U/L (5-37); Bilirubin Total 6.8 mg/dL (0.0-1.0); Blood Urea Nitrogen 6 mg/dL (9-16); Calcium 7.8 mg/dL (8.4-10.2); Carbon Dioxide 28 mmol/L (22-29); Chloride 96 mmol/L (96-108); Creatinine Clr Calc Pharmacy 93.6; Estimated Glomerular Filt Rate > 60; Glucose Random 115 mg/dL (60-115); Magnesium 1.8 mg/dL (1.6-2.6); Potassium 3.2 mmol/L (3.3-5.1); Sodium 133 mmol/L (135-145); Total Protein 5.9 g/dL (6.5-8.0)
[2024-07-28 06:58] LABS: INTERNATIONAL NORM RATIO 1.8 (0.9-1.1); Prothrombin Time 20.8 SEC (10.9-12.4)
[2024-07-28 07:21] LABS: Hematocrit 25.8 % (42.0-52.0); Hemoglobin 8.8 g/dl (14.0-18.0); Mean Corpuscular HGB Conc 34.1 g/dl (31.0-36.0); Mean Corpuscular Hemoglobin 33.2 pg (27.0-33.0); Mean Corpuscular Volume 97.4 fL (80.0-98.0); Mean Platelet Volume 9.6 fL (9.4-12.4); Red Blood Count 2.65 X10*6/uL (4.60-5.80); Red Cell Distribution Width 21.8 % (11.0-16.0); White Blood Count 4.8 X10*3/uL (4.8-10.8)
[2024-07-28 07:22] LABS: Platelet Count 76 X10*3/uL (160-400)
[2024-07-28 08:00] VITALS: BP 107/58; PULSE 69; RESP 18; TEMP 36.3; O2SAT 99
[2024-07-28] MEDS: 0.9 % Sodium Chloride Flush 3 ML SYRINGE IVFLUSH ×3 (08:33→19:53)
[2024-07-28] MEDS: cefTRIAXone sodium 1 GM VIAL IVPUSH (08:34)
[2024-07-28] MEDS: Furosemide 40 MG TABLET PO (08:38)
[2024-07-28] MEDS: Sucralfate Oral Suspension 1 GM/10 ML ORAL.SUSP PO ×4 (08:38→19:53)
[2024-07-28] MEDS: QUEtiapine Fumarate 50 MG TABLET PO (08:39)
[2024-07-28] MEDS: Potassium Chloride ER 20 MEQ TAB.ER.PRT 40 MEQ PO ×2 (08:39→19:54)
[2024-07-28] MEDS: Spironolactone 25 MG TABLET 100 MG PO (08:40)
[2024-07-28] MEDS: Topiramate 100 MG TABLET 200 MG PO ×2 (08:40→19:54)
[2024-07-28 09:07] VITALS: O2SAT 99
--- NOTE | 2024-07-28 09:36 | P.PNIM_ITS ---
Subjective Subjective Date of Service: 07/28/24 Interval History: no further abd pain or coffee-ground emesis; tolerating clears Review of Systems Review of Systems: Yes all other systems are reviewed and are negative Physical Exam 2 Vital Signs: Vital Signs: Last Vital Signs Temp 97.3 F 07/28/24 08:00 Pulse 69 07/28/24 08:00 Resp 18 07/28/24 08:00 BP 107/58 L 07/28/24 08:00 Pulse Ox 99 07/28/24 08:00 O2 Del Method Room Air 07/28/24 08:00 O2 Flow Rate 6 07/27/24 10:00 BMI result Body Mass Index 27.7 Gen: in no acute distress HEENT: sclera icteric, moist mucus membranes Neck: supple Lungs: clear to auscultation bilaterally Heart: regular rate and rhythm, no murmurs Abd: some epigastric tenderness, no Dewey sign Ext: 1+ bilateral edema of legs Skin: warm/well-perfused, jaundiced Neuro: alert and oriented x3, no focal findings, no asterixis Psych: appropriate affect Objective Data Active Medications Acetaminophen (Acetaminophen 325 Mg Tablet) 650 mg PO Q6H PRN PRN Reason: Pain, Mild (Pain Scale 1-3), fever or headache Calcium Carbonate (Calcium Carbonate 750 Mg Tab.Chew) 750 mg PO Q4H PRN PRN Reason: Heartburn Last Admin: 07/27/24 22:21 Dose: 750 mg Documented By: ANJALI Ceftriaxone Sodium (Ceftriaxone Sodium 1 Gm Vial) 1 gm IVPUSH Q24H [facility] Last Admin: 07/28/24 08:34 Dose: 1 gm Documented By: NORMAN Furosemide (Furosemide 40 Mg Tablet) 40 mg PO DAILY [facility]; Protocol Last Admin: 07/28/24 08:38 Dose: 40 mg Documented By: NORMAN Lactulose (Lactulose 20 Gm/30 Ml Solution) 20 gm PO BID [facility] Last Admin: 07/28/24 09:02 Dose: Not Given Documented By: NORMAN Non-Admin Reason: Physician Held Med Magnesium Hydroxide (Milk Of Magnesia 30 Ml Oral.Susp) 30 ml PO DAILY PRN PRN Reason: Constipation Melatonin (Melatonin 3 Mg Tablet) 9 mg PO BEDTIME [facility] Last Admin: 07/27/24 19:42 Dose: 9 mg Documented By: ANJALI Mirtazapine (Mirtazapine 15 Mg Tablet) 15 mg PO BEDTIME [facility] Last Admin: 07/27/24 19:42 Dose: 15 mg Documented By: ANJALI Naloxone HCl (Naloxone Hcl 0.4 Mg/Ml Vial) 0.04 mg IVPUSH Q5M PRN PRN Reason: Excessive sedation or RR < 8 Ondansetron HCl (Ondansetron Hcl 4 Mg/2 Ml Vial) 4 mg IVPUSH Q8H PRN PRN Reason: Nausea and Vomiting Last Admin: 07/26/24 20:50 Dose: 4 mg Documented By: ROSALIA Pantoprazole Sodium (Pantoprazole Sodium 40 Mg/10 Ml Vial) 40 mg IVPUSH BID@0630,1830 [facility] Last Admin: 07/28/24 05:33 Dose: 40 mg Documented By: ANJALI Potassium Chloride (Potassium Chloride Er 20 Meq Tab.Er.Prt) 40 meq PO BID [facility] Last Admin: 07/28/24 08:39 Dose: 40 meq Documented By: NORMAN Quetiapine Fumarate (Quetiapine Fumarate 50 Mg Tablet) 50 mg PO DAILY [facility] Last Admin: 07/28/24 08:39 Dose: 50 mg Documented By: NORMAN Sodium Chloride (0.9 % Sodium Chloride Flush 3 Ml Syringe) [facility] Last Admin: 07/28/24 08:33 Dose: 3 ml Documented By: NORMAN Spironolactone (Spironolactone 25 Mg Tablet) 100 mg PO DAILY [facility]; Protocol Last Admin: 07/28/24 08:40 Dose: 100 mg Documented By: NORMAN Sucralfate (Sucralfate Oral Suspension 1 Gm/10 Ml Oral.Susp) 1 gm PO QIDACHS [facility] Last Admin: 07/28/24 08:38 Dose: 1 gm Documented By: NORMAN Tamsulosin HCl (Tamsulosin Hcl 0.4 Mg Capsule) 0.4 mg PO BEDTIME [facility] Last Admin: 07/27/24 19:42 Dose: 0.4 mg Documented By: ANJALI Topiramate (Topiramate 100 Mg Tablet) 200 mg PO BID [facility] Last Admin: 07/28/24 08:40 Dose: 200 mg Documented By: NORMAN Labs 07/28/24 06:08 10/13/24 06:08 Labs: Laboratory Results - last 24 hr 07/26/24 07/28/24 12:43 06:08 MCV 97.4 MCH 33.2 H MCHC 34.1 RDW 21.8 H Plt Count 76 L MPV 9.6 Absolute Nucleated RBC 0.000 Nucleated RBC % (auto) 0.0 PT 20.8 H INR 1.8 H Anion Gap 12 Estim Creat Clear Calc 93.6 Estimated GFR > 60 Random Glucose 115 Calcium 7.8 L Magnesium 1.8 Total Bilirubin 6.8 H AST 117 H ALT 46 H Alkaline Phosphatase 132 H Total Protein 5.9 L Albumin 1.9 L Blood Type A Positive Antibody Screen NEGATIVE Crossmatch See Detail Microbiology Microbiology Results: Microbiology 07/24/24 15:08 Gram Stain - Final Ascites Fluid Routine Culture - Final No growth after 2 days Anaerobic Culture - Preliminary No growth to date. Assessment and Plan (1) Thrombocytopenia: Status: Acute (2) Hyponatremia: Status: Acute Plan d6 for 59yo M with decompensated EtOH cirrhosis + hx prostate CA presenting with abd pain, N/V for past 1 mo, noncompliant with meds x 2mo found to have ascites, hypoK, GB wall thickening, hepatic encephalopathy now coffee-ground emesis acute blood loss anemia due to UGIB due to esophagitis - EGD 07/[address] Gibson: Grade D esophagitis with spontaneous oozing (hemospray) Hiatal hernia Portal hypertensive gastropathy Normal duodenum (biopsy) - advance to solid diet, continue IV PPI another 24h then change to PO bid; continue sucralfate; avoid EtOH, smoking + NSAIDs - outpt GI f/u - transfused 1u pRBCs 07/27 with appropriate response in Hb 7.9->8.8 hypoK - increase maintenance KCl to 40 mEq bid ascites - diagnostic paracentesis 07/24/24; WBC count not meeting SBP criteria; Cx negative; continue ceftriaxone for SBP prophylaxis and per GI will need ciprofloxacin or TMP-SMX upon discharge for primary prophylaxis against SBP - continue spironolactone + furosemide, should have electrolytes periodically checked as outpt GB wall thickening CBD dilation - likely due to cirrhosis; Surgery consulted appreciated; both Surgery and GI doubt he has cholecystitis and his pain has improved and was not in the RUQ. Will change ceftriaxone from treatment to SBP prophylaxis and d/c metronidazole. Formal MRCP read pending. hepatic encephalopathy - lactulose EtOH hepatitis - MDF >32 but would not be a good candidate for steroids unless he can commit to stopping drinking AUD - declined Recovery Team support - prn CIWA; no withdrawal signs - continue topiramate prostatism - tamsulosin mood disorder - quetiapine + mirtazapine thrombocytopenia due to cirrhosis - monitor CBC coagulopathy due to cirrhosis - did not correct with vit K VTE ppx - SCDs; no heparin given low plts + GI bleeding dispo - PT consulted, STR recommended In my clinical judgment, the patient requires continued inpatient hospitalization for the following reasons: IV PPI, STR placement Total time managing care of this patient today: 45 minutes. Quality Stroke Does the patient have a stroke diagnosis?: No VTE Prior VTE?: No VTE Risk Level:: Medical - moderate - high VTE Device Contraindication: N/A - Device Ordered VTE Drug Contraindication: Treatment Not Indicated
[2024-07-28] MEDS: ondansetron HCL 4 MG/2 ML VIAL IVPUSH ×2 (13:44→19:53)
[2024-07-28 15:47] VITALS: BP 104/58; PULSE 72; RESP 17; TEMP 36.5; O2SAT 98
[2024-07-28] MEDS: Tamsulosin HCL 0.4 MG CAPSULE PO (19:53)
[2024-07-28] MEDS: Mirtazapine 15 MG TABLET PO (19:54)
[2024-07-28] MEDS: Melatonin 3 MG TABLET 9 MG PO (19:54)
[2024-07-28 20:00] VITALS: BP 117/67; PULSE 73; RESP 16; TEMP 36.7; O2SAT 99
--- NOTE | 2024-07-28 20:16 | HO.POSTANES ---
Post Anesthesia Evaluation Post Anesthesia Evaluation Date of Service: 07/28/24 Vital Signs: Vital Signs Temp Pulse Resp BP Pulse Ox O2 Del Method 07/28/24 20:00 98.0 F 73 16 117/67 99 Room Air 07/28/24 15:47 97.7 F 72 17 104/58 L 98 Room Air 07/28/24 09:07 99 Room Air Anesthesia: Monitored Mental Status: Awake Pain Control: Satisfactory Nausea/Vomiting: None Hydration: Adequate Anesthesia-Related Issues: No Anes. Related Issues
[2024-07-29 03:45] VITALS: BP 133/62; PULSE 73; RESP 16; TEMP 36.6; O2SAT 98
[2024-07-29] MEDS: Pantoprazole Sodium 40 MG/10 ML VIAL IVPUSH ×2 (06:21→17:15)
[2024-07-29 07:25] LABS: Anion Gap 10 (12-20); Blood Urea Nitrogen 5 mg/dL (9-16); Carbon Dioxide 26 mmol/L (22-29); Chloride 99 mmol/L (96-108); Creatinine Clr Calc Pharmacy 79.3; Estimated Glomerular Filt Rate > 60; Glucose Random 125 mg/dL (60-115); Potassium 3.5 mmol/L (3.3-5.1); Sodium 131 mmol/L (135-145)
[2024-07-29 07:32] LABS: Hematocrit 27.9 % (42.0-52.0); Hemoglobin 9.5 g/dl (14.0-18.0); Mean Corpuscular HGB Conc 34.1 g/dl (31.0-36.0); Mean Corpuscular Hemoglobin 34.2 pg (27.0-33.0); Mean Corpuscular Volume 100.4 fL (80.0-98.0); Mean Platelet Volume 9.8 fL (9.4-12.4); Red Blood Count 2.78 X10*6/uL (4.60-5.80); White Blood Count 5.2 X10*3/uL (4.8-10.8)
[2024-07-29 07:38] LABS: Platelet Count 73 X10*3/uL (160-400)
[2024-07-29 07:40] VITALS: BP 98/53; PULSE 65; RESP 16; TEMP 36.9; O2SAT 99
[2024-07-29] MEDS: ondansetron HCL 4 MG/2 ML VIAL IVPUSH (08:39)
[2024-07-29 08:41] VITALS: BP 98/53
[2024-07-29] MEDS: Furosemide 40 MG TABLET PO (08:41)
[2024-07-29] MEDS: Topiramate 100 MG TABLET 200 MG PO ×2 (08:41→20:52)
[2024-07-29] MEDS: Potassium Chloride ER 20 MEQ TAB.ER.PRT 40 MEQ PO ×2 (08:41→20:52)
[2024-07-29] MEDS: Spironolactone 25 MG TABLET 100 MG PO (08:41)
[2024-07-29] MEDS: QUEtiapine Fumarate 50 MG TABLET PO (08:41)
[2024-07-29] MEDS: 0.9 % Sodium Chloride Flush 3 ML SYRINGE IVFLUSH ×3 (08:42→20:55)
[2024-07-29] MEDS: Sucralfate Oral Suspension 1 GM/10 ML ORAL.SUSP PO ×2 (08:42→20:53)
[2024-07-29] MEDS: cefTRIAXone sodium 1 GM VIAL IVPUSH (08:42)
[2024-07-29 09:00] VITALS: O2SAT 97
--- NOTE | 2024-07-29 09:11 | HO.PM.IMPN ---
Subjective Subjective Date of Service: 07/29/24 Interval History: seen and examined no nausea this AM denies abdominal pain, but is tender on palpation Review of Systems Negative except HPI/interval history. Physical Exam Vital Signs: Vital Signs: Last Vital Signs Temp 98.5 F 07/29/24 07:40 Pulse 65 07/29/24 07:40 Resp 16 07/29/24 07:40 BP 98/53 L 07/29/24 08:41 Pulse Ox 99 07/29/24 07:40 O2 Del Method Room Air 07/29/24 07:40 O2 Flow Rate 6 07/27/24 10:00 BMI result Body Mass Index 27.7 Const: Other: Gen: in no acute distress HEENT: sclera icteric, moist mucus membranes Neck: supple Lungs: clear to auscultation bilaterally Heart: regular rate and rhythm, no murmurs Abd: diffuse tenderness on palpation; +fluid wave Ext: 1+ bilateral edema of legs Skin: warm/well-perfused, jaundiced Neuro: alert and oriented x3, no focal findings, no asterixis Psych: appropriate affect Objective Data Active Medications Acetaminophen (Acetaminophen 325 Mg Tablet) 650 mg PO Q6H PRN PRN Reason: Pain, Mild (Pain Scale 1-3), fever or headache Calcium Carbonate (Calcium Carbonate 750 Mg Tab.Chew) 750 mg PO Q4H PRN PRN Reason: Heartburn Last Admin: 07/27/24 22:21 Dose: 750 mg Documented By: ANJALI Ceftriaxone Sodium (Ceftriaxone Sodium 1 Gm Vial) 1 gm IVPUSH Q24H [facility] Last Admin: 07/29/24 08:42 Dose: 1 gm Documented By: HANNA Furosemide (Furosemide 40 Mg Tablet) 40 mg PO DAILY [facility]; Protocol Last Admin: 07/29/24 08:41 Dose: 40 mg Documented By: HANNA Lactulose (Lactulose 20 Gm/30 Ml Solution) 20 gm PO BID [facility] Last Admin: 07/29/24 08:42 Dose: Not Given Documented By: HANNA Non-Admin Reason: Patient Refused Magnesium Hydroxide (Milk Of Magnesia 30 Ml Oral.Susp) 30 ml PO DAILY PRN PRN Reason: Constipation Melatonin (Melatonin 3 Mg Tablet) 9 mg PO BEDTIME [facility] Last Admin: 07/28/24 19:54 Dose: 9 mg Documented By: JOSE MANUEL Mirtazapine (Mirtazapine 15 Mg Tablet) 15 mg PO BEDTIME [facility] Last Admin: 07/28/24 19:54 Dose: 15 mg Documented By: JOSE MANUEL Naloxone HCl (Naloxone Hcl 0.4 Mg/Ml Vial) 0.04 mg IVPUSH Q5M PRN PRN Reason: Excessive sedation or RR < 8 Ondansetron HCl (Ondansetron Hcl 4 Mg/2 Ml Vial) 4 mg IVPUSH Q8H PRN PRN Reason: Nausea and Vomiting Last Admin: 07/29/24 08:39 Dose: 4 mg Documented By: HANNA Pantoprazole Sodium (Pantoprazole Sodium 40 Mg/10 Ml Vial) 40 mg IVPUSH BID@0630,1830 [facility] Last Admin: 07/29/24 06:21 Dose: 40 mg Documented By: RUDY Potassium Chloride (Potassium Chloride Er 20 Meq Tab.Er.Prt) 40 meq PO BID [facility] Last Admin: 07/29/24 08:41 Dose: 40 meq Documented By: HANNA Quetiapine Fumarate (Quetiapine Fumarate 50 Mg Tablet) 50 mg PO DAILY [facility] Last Admin: 07/29/24 08:41 Dose: 50 mg Documented By: HANNA Sodium Chloride (0.9 % Sodium Chloride Flush 3 Ml Syringe) [facility] Last Admin: 07/29/24 08:42 Dose: 3 ml Documented By: HANNA Spironolactone (Spironolactone 25 Mg Tablet) 100 mg PO DAILY [facility]; Protocol Last Admin: 07/29/24 08:41 Dose: 100 mg Documented By: HANNA Sucralfate (Sucralfate Oral Suspension 1 Gm/10 Ml Oral.Susp) 1 gm PO QIDACHS [facility] Last Admin: 07/29/24 08:42 Dose: 1 gm Documented By: HANNA Tamsulosin HCl (Tamsulosin Hcl 0.4 Mg Capsule) 0.4 mg PO BEDTIME [facility] Last Admin: 07/28/24 19:53 Dose: 0.4 mg Documented By: JOSE MANUEL Topiramate (Topiramate 100 Mg Tablet) 200 mg PO BID [facility] Last Admin: 07/29/24 08:41 Dose: 200 mg Documented By: HANNA Labs 07/29/24 06:58 07/29/24 06:58 Labs: Laboratory Results - last 24 hr 07/29/24 06:58 MCV 100.4 H MCH 34.2 H MCHC 34.1 RDW 22.0 H Plt Count 73 L MPV 9.8 Absolute Nucleated RBC 0.000 Nucleated RBC % (auto) 0.0 Anion Gap 10 L Estim Creat Clear Calc 79.3 Estimated GFR > 60 Random Glucose 125 H Calcium 8.0 L Microbiology Microbiology Results: Microbiology 07/24/24 15:08 Gram Stain - Final Ascites Fluid Routine Culture - Final No growth after 2 days Anaerobic Culture - Preliminary No growth to date. Assessment and Plan (1) Hematemesis: Status: Acute Plan d6 for 59yo M with decompensated EtOH cirrhosis + hx prostate CA presenting with abd pain, N/V for past 1 mo, noncompliant with meds x 2mo found to have ascites, hypoK, GB wall thickening, hepatic encephalopathy now coffee-ground emesis acute blood loss anemia due to UGIB due to esophagitis - EGD 07/[address] Gibson: Grade D esophagitis with spontaneous oozing (hemospray) Hiatal hernia Portal hypertensive gastropathy Normal duodenum (biopsy) - advance to solid diet, continue IV PPI another 24h then change to PO bid; continue sucralfate; avoid EtOH, smoking + NSAIDs - outpt GI f/u - transfused 1u pRBCs 07/27 with appropriate response in Hb 7.9->8.8 continue IV PPI today -- change to oral tomorrow hypoK - increase maintenance KCl to 40 mEq bid ascites - diagnostic paracentesis 07/24/24; WBC count not meeting SBP criteria; Cx negative; continue ceftriaxone for SBP prophylaxis and per GI will need ciprofloxacin or TMP-SMX upon discharge for primary prophylaxis against SBP - continue spironolactone + furosemide, should have electrolytes periodically checked as outpt - tender on exam today (07/29) -- will order paracentesis GB wall thickening CBD dilation - likely due to cirrhosis; Surgery consulted appreciated; both Surgery and GI doubt he has cholecystitis and his pain has improved and was not in the RUQ. Will change ceftriaxone from treatment to SBP prophylaxis and d/c metronidazole. Formal MRCP read pending. hepatic encephalopathy - lactulose EtOH hepatitis - MDF >32 but would not be a good candidate for steroids unless he can commit to stopping drinking AUD - declined Recovery Team support - prn CIWA; no withdrawal signs - continue topiramate prostatism - tamsulosin mood disorder - quetiapine + mirtazapine thrombocytopenia due to cirrhosis - monitor CBC coagulopathy due to cirrhosis - did not correct with vit K VTE ppx - SCDs; no heparin given low plts + GI bleeding dispo - PT consulted, STR recommended In my clinical judgment, the patient requires continued inpatient hospitalization for the following reasons: IV PPI, ascites (tap today), placement Quality Stroke Does the patient have a stroke diagnosis?: No VTE Prior VTE?: No VTE Risk Level:: Medical - moderate - high VTE Device Contraindication: N/A - Device Ordered VTE Drug Contraindication: Treatment Not Indicated
--- NOTE | 2024-07-29 10:09 | MHC.CLN ---
F/U DIET ADVANCED TO CLEAR LIQUIDS 07/28. APPEARS TO BE TOLERATING CL. NO NOTED VOMITING SINCE 07/26. PER GI CONSULT, RECOMMENDS LOW FAT, HIGH PROTEIN DIET. MAY HAVE PROTEIN SHAKES 1-2 TIMES DAILY. ADVANCE DIET WHEN ABLE PER GI RECOMMENDATIONS. WEIGHT FLUCTUATION ANTICIPATED WITH ASCITES/PARACENTESIS. FOLLOW FOR DIET ADVANCEMENT, PO INTAKE AND WEIGHT.
--- NOTE | 2024-07-29 11:12 | MHC.CM.PN ---
EMR reviewed, pt is not medically cleared for discharge today due to management of acsites with pending paracentesis today. DCP: STR at [facility], insurance auth that was previously obtained has lapsed, will need to get new insurance auth and updated PT note in order for new auth to be obtained.
[2024-07-29 16:46] VITALS: BP 106/59; PULSE 80; RESP 12; TEMP 36.6; O2SAT 100
[2024-07-29 19:49] VITALS: BP 135/63; PULSE 90; RESP 18; TEMP 36.4; O2SAT 95
[2024-07-29] MEDS: Tamsulosin HCL 0.4 MG CAPSULE PO (20:52)
[2024-07-29] MEDS: Melatonin 3 MG TABLET 9 MG PO (20:53)
[2024-07-29] MEDS: Lactulose 20 GM/30 ML SOLUTION PO (20:53)
[2024-07-29] MEDS: Mirtazapine 15 MG TABLET PO (20:53)
[2024-07-30 03:24] VITALS: BP 121/57; PULSE 73; RESP 18; TEMP 36.6; O2SAT 98
[2024-07-30] MEDS: Pantoprazole Sodium 40 MG/10 ML VIAL IVPUSH (05:13)
[2024-07-30 07:44] VITALS: BP 115/58; PULSE 70; RESP 18; TEMP 36.9; O2SAT 100
[2024-07-30 08:55] VITALS: BP 115/58
[2024-07-30] MEDS: Potassium Chloride ER 20 MEQ TAB.ER.PRT 40 MEQ PO ×2 (08:55→22:12)
[2024-07-30] MEDS: Topiramate 100 MG TABLET 200 MG PO ×2 (08:55→22:12)
[2024-07-30] MEDS: Spironolactone 25 MG TABLET 100 MG PO (08:55)
[2024-07-30] MEDS: QUEtiapine Fumarate 50 MG TABLET PO (08:55)
[2024-07-30] MEDS: Omeprazole 40 MG CAPSULE.DR PO ×2 (08:55→15:49)
[2024-07-30] MEDS: cefTRIAXone sodium 1 GM VIAL IVPUSH (08:57)
[2024-07-30] MEDS: 0.9 % Sodium Chloride Flush 3 ML SYRINGE IVFLUSH ×2 (08:57→15:49)
[2024-07-30 09:00] VITALS: O2SAT 97
[2024-07-30] MEDS: Albumin Human 25 % 100 ML IV ×3 (10:34→22:21)
[2024-07-30] MEDS: ondansetron HCL 4 MG/2 ML VIAL IVPUSH (11:43)
--- NOTE | 2024-07-30 13:38 | MHC.CM.PN ---
EMR REVIEWED AND PER MD ROUNDS , PT WILL BE MEDICALLY CLEARED ONCE INSURANCE AUTH IS OBTAINED FROM SNF. [facility] WILL NEED TO SEEK A NEW AUTH AND HAVE STARTED THE PROCESS. PROVIDER UPDATED. CM WILL CONTINUE TO FOLLOW AND AWAIT AUTH.
--- NOTE | 2024-07-30 15:08 | HO.WOUND ---
Wound Consult: Initial 59yr old? Male admitted to [facility] on 07/23/24 23:31- See progress notes and H&P for detailed history.? Wound consult placed for MASD (Moisture Associated Skin Damage ) to buttock while on unit.? Patient agreeable to assessment and photo documentation.? Patient reports the wound to his bottom is from his sedentary lifestyle at home - he denies incontinence however is incontinent of stool at the time of my assessment. Buttocks / Sacrum / Coccyx Etiology: ??MASD (Moisture Associated Skin Damage ) Wound Bed: red pink blanchable tissue throughout bilateral buttocks assessed for scattered areas of red clean pink tissue partial thickness tissue loss - consistent with friction and not pressure Drainage / Odor: Sanginous drainage noted after cleansing Edges: ? Irregular Alesha wound: ?Dark hyperpigmented tissue - evidence of chronic moistures - No Induration, Fluctuance or Warmth noted Pain: reported pain and tenderness Goals of Treatment: ? Barrier cream to aid in protect from moisture and friction - foam dressing to sacrum to protect from friction and pressure Recommendations: 1. Turn and Reposition every 2 hours and as needed for patient comfort.? Use pillows or wedges to support off loading positions. 2. Off Load all bony prominences with use of pillows and heel boots if needed.? Apply Preventative foams where needed. ? 3. Monitor for incontinence and moisture control, use barrier creams when needed for prevention and treatment. 4. Provide adequate and supplemental nutrition.? 5. Order or Continue low air loss mattress. 6. When applicable maintain blood glucose levels per Providers order. 7. Sacrum - Routine Cleansing. Apply preventative sacral foam dressing - peel back and assess Q shift and change every 5-7 days. 8. Bilateral Heels - Elevate heels off of bed surface with pillows. Apply foam dressings to aid in pressure redistribution and protect from friction. Peel back and assess Q shift and change ever 5-7 days. 9. Buttock and Scrotum - Routine Cleansing with PH balanced wipes. Apply barrier cream twice daily and after incontinence episodes. Re-consult wound care Nurse for wound deterioration or wound changes.
--- NOTE | 2024-07-30 15:16 | HO.PM.IMPN ---
Subjective Subjective Date of Service: 07/30/24 Interval History: Ascitis Review of Systems abd fluid not enough for paracentesis no abd pain eating breakfast Physical Exam Vital Signs: Vital Signs: Last Vital Signs Temp 98.5 F 07/30/24 07:44 Pulse 70 07/30/24 07:44 Resp 18 07/30/24 07:44 BP 115/58 L 07/30/24 08:55 Pulse Ox 97 07/30/24 09:00 O2 Del Method Room Air 07/30/24 09:00 O2 Flow Rate 6 07/27/24 10:00 BMI result Body Mass Index 27.7 Lungs: clear to auscultation bilaterally Heart: [id number]. Abd: globular,nt ,bs present Ext: 1+ bilateral edema of legs Skin: warm/well-perfused, jaundiced Neuro: alert and oriented x3, no focal findings, no asterixis Psych: appropriate affect Objective Data Active Medications Acetaminophen (Acetaminophen 325 Mg Tablet) 650 mg PO Q6H PRN PRN Reason: Pain, Mild (Pain Scale 1-3), fever or headache Calcium Carbonate (Calcium Carbonate 750 Mg Tab.Chew) 750 mg PO Q4H PRN PRN Reason: Heartburn Last Admin: 07/27/24 22:21 Dose: 750 mg Documented By: ANJALI Ceftriaxone Sodium (Ceftriaxone Sodium 1 Gm Vial) 1 gm IVPUSH Q24H [facility] Last Admin: 07/30/24 08:57 Dose: 1 gm Documented By: HANNA Albumin Human (Kedbumin 25 %) 100 mls @ 100 mls/hr IV Q6H [facility] Stop: 07/31/24 04:14 Last Infusion: 07/30/24 11:46 Dose: Infused Documented By: HANNA Lactulose (Lactulose 20 Gm/30 Ml Solution) 20 gm PO BID [facility] Last Admin: 07/30/24 08:57 Dose: Not Given Documented By: HANNA Non-Admin Reason: Patient Refused Magnesium Hydroxide (Milk Of Magnesia 30 Ml Oral.Susp) 30 ml PO DAILY PRN PRN Reason: Constipation Melatonin (Melatonin 3 Mg Tablet) 9 mg PO BEDTIME [facility] Last Admin: 07/29/24 20:53 Dose: 9 mg Documented By: ROSALIA Mirtazapine (Mirtazapine 15 Mg Tablet) 15 mg PO BEDTIME [facility] Last Admin: 07/29/24 20:53 Dose: 15 mg Documented By: ROSALIA Naloxone HCl (Naloxone Hcl 0.4 Mg/Ml Vial) 0.04 mg IVPUSH Q5M PRN PRN Reason: Excessive sedation or RR < 8 Omeprazole (Omeprazole 40 Mg Capsule.Dr) 40 mg PO BID@0630,1630 [facility] Last Admin: 07/30/24 08:55 Dose: 40 mg Documented By: HANNA Ondansetron HCl (Ondansetron Hcl 4 Mg/2 Ml Vial) 4 mg IVPUSH Q8H PRN PRN Reason: Nausea and Vomiting Last Admin: 07/30/24 11:43 Dose: 4 mg Documented By: HANNA Potassium Chloride (Potassium Chloride Er 20 Meq Tab.Er.Prt) 40 meq PO BID [facility] Last Admin: 07/30/24 08:55 Dose: 40 meq Documented By: HANNA Quetiapine Fumarate (Quetiapine Fumarate 50 Mg Tablet) 50 mg PO DAILY [facility] Last Admin: 07/30/24 08:55 Dose: 50 mg Documented By: HANNA Sodium Chloride (0.9 % Sodium Chloride Flush 3 Ml Syringe) 3 ml IVFLUSH QSHIFT [facility] Last Admin: 07/30/24 08:57 Dose: 3 ml Documented By: HANNA Spironolactone (Spironolactone 25 Mg Tablet) 100 mg PO DAILY [facility]; Protocol Last Admin: 07/30/24 08:55 Dose: 100 mg Documented By: HANNA Sucralfate (Sucralfate Oral Suspension 1 Gm/10 Ml Oral.Susp) 1 gm PO QIDACHS [facility] Last Admin: 07/30/24 12:34 Dose: Not Given Documented By: HANNA Non-Admin Reason: Patient Refused Tamsulosin HCl (Tamsulosin Hcl 0.4 Mg Capsule) 0.4 mg PO BEDTIME [facility] Last Admin: 07/29/24 20:52 Dose: 0.4 mg Documented By: ROSALIA Topiramate (Topiramate 100 Mg Tablet) 200 mg PO BID [facility] Last Admin: 07/30/24 08:55 Dose: 200 mg Documented By: HANNA Labs 07/29/24 06:58 07/29/24 06:58 Microbiology Microbiology Results: Microbiology 07/24/24 15:08 Gram Stain - Final Ascites Fluid Routine Culture - Final No growth after 2 days Anaerobic Culture - Final NO GROWTH AFTER 5 DAYS Assessment and Plan (1) Hematemesis: Status: Acute Plan d6 for 59yo M with decompensated EtOH cirrhosis + hx prostate CA presenting with abd pain, N/V for past 1 mo, noncompliant with meds x 2mo found to have ascites, hypoK, GB wall thickening, hepatic encephalopathy now coffee-ground emesis acute blood loss anemia due to UGIB due to esophagitis- EGD 07/[address] Gibson: Grade D esophagitis with spontaneous oozing (hemospray) Hiatal hernia Portal hypertensive gastropathy Normal duodenum (biopsy) - advance to solid diet, continue IV PPI another 24h then change to PO bid; continue sucralfate; avoid EtOH, smoking + NSAIDs - outpt GI f/u - transfused 1u pRBCs 07/27 with appropriate response in Hb 7.9->8.8 plan: switched to oral ppi, continue sucralfate . hypoK: continue potassium supplements. ascites - diagnostic paracentesis 07/24/24; WBC count not meeting SBP criteria; Cx negative. continue ceftriaxone for SBP prophylaxis and per GI will need ciprofloxacin or TMP-SMX upon discharge for primary prophylaxis against SBP - continue spironolactone + furosemide, should have electrolytes periodically checked as outpt as per us exam today-not enough to fluids to drain continue diuretics GB wall thickening CBD dilation - likely due to cirrhosis; Surgery consulted appreciated; both Surgery and GI doubt he has cholecystitis and his pain has improved and was not in the RUQ. Will change ceftriaxone from treatment to SBP prophylaxis and d/c metronidazole. Formal MRCP read pending. hepatic encephalopathy - lactulose EtOH hepatitis - MDF >32 but would not be a good candidate for steroids unless he can commit to stopping drinking AUD - declined Recovery Team support - prn CIWA; no withdrawal signs - continue topiramate prostatism - tamsulosin mood disorder - quetiapine + mirtazapine thrombocytopenia due to cirrhosis - monitor CBC coagulopathy due to cirrhosis - did not correct with vit K VTE ppx - SCDs; no heparin given low plts + GI bleeding dispo - PT consulted, STR recommended In my clinical judgment, the patient requires continued inpatient hospitalization for the following reasons: placement Quality Stroke Does the patient have a stroke diagnosis?: No VTE Prior VTE?: No VTE Risk Level:: Medical - moderate - high VTE Device Contraindication: N/A - Device Ordered VTE Drug Contraindication: Treatment Not Indicated
[2024-07-30 15:21] VITALS: BP 113/58; PULSE 70; RESP 16; TEMP 36.4; O2SAT 98
[2024-07-30] MEDS: Calcium Carbonate 750 MG TAB.CHEW PO (15:48)
[2024-07-30] MEDS: Promethazine HCL 25 MG/ML VIAL 6.25 MG IM (17:45)
--- NOTE | 2024-07-30 18:50 | PC.NURSE ---
Pt eating large amount of food with meals and snacking. Vomiting frequently. Medicated with zofran with minimal effect. Dr. Rosenberg aware. Order for IM phenergan x1. Effect pending. Pt denies abdominal pain, but abdomen large, distended, + bowel sounds. Had 3 loose BM's this shift (7a-7p). Encouraged pt to eat slow and not overeat.
[2024-07-30 19:33] VITALS: BP 106/52; PULSE 81; RESP 16; TEMP 36.4; O2SAT 97
[2024-07-30] MEDS: Tamsulosin HCL 0.4 MG CAPSULE PO (22:12)
[2024-07-30] MEDS: Mirtazapine 15 MG TABLET PO (22:13)
[2024-07-30] MEDS: Melatonin 3 MG TABLET 9 MG PO (22:13)
[2024-07-31] MEDS: Albumin Human 25 % 100 ML IV (04:08)
[2024-07-31] MEDS: Omeprazole 40 MG CAPSULE.DR PO ×2 (06:08→17:37)
[2024-07-31 08:00] VITALS: BP 103/50; PULSE 69; RESP 16; TEMP 36; O2SAT 100
[2024-07-31] MEDS: Sucralfate Oral Suspension 1 GM/10 ML ORAL.SUSP PO (08:05)
[2024-07-31] MEDS: QUEtiapine Fumarate 50 MG TABLET PO (08:06)
[2024-07-31] MEDS: cefTRIAXone sodium 1 GM VIAL IVPUSH (08:06)
[2024-07-31] MEDS: Topiramate 100 MG TABLET 200 MG PO ×2 (08:08→21:17)
[2024-07-31] MEDS: Furosemide 40 MG TABLET PO (08:08)
[2024-07-31] MEDS: Potassium Chloride ER 20 MEQ TAB.ER.PRT 40 MEQ PO (08:08)
[2024-07-31] MEDS: Spironolactone 25 MG TABLET 100 MG PO (08:09)
--- NOTE | 2024-07-31 09:49 | MHC.CM.PN ---
Addendum entered by Suly Alexander 07/31/24 13:58: PT'S DC HAS BEEN CX DUE TO VOMITING /ABDOMINAL PAIN. [facility] SNF UPDATED. HCP/S/O ETHALEE AT BEDSIDE AND AWARE. CM WILL CONTINUE TO FOLLOW FOR ANY CHANGE TO DC PLAN Original Note: DP: FINAL IMM DELIVERED PT HAS BEEN MEDICALLY CLEARED FOR DC TO STR AT [facility]. CENTER HAS OBTAINED INSURANCE AUTH. S TRANSPORT IS BOOKED FOR 12:30 P.M. CENTER MADE AWARE. RN UPDATED. HCP/ UPDATED.
--- NOTE | 2024-07-31 10:34 | MHC.CLN ---
F/U DIET=REGULAR. PO 50-100%. CONSULT FOR SKIN BREAKDOWN. REVIEWED WOUND RN NOTE. PATIENT WITH MASD TO COCCYX. FOLLOW FOR DIET TOLERANCE, PO INTAKE AND SKIN INTEGRITY.
--- NOTE | 2024-07-31 11:59 | PM.DS ---
DS: Providers Provider Date of Service: 07/31/24 Date of admission: 07/23/24 23:31 Date of discharge: 07/31/24 Primary care physician: Fransisco Soria MD Consults: 07/24/24 11:37 Addiction Medicine Routine Consulting Provider: Addiction Covering Reason for consultation: drinking etoh despite decomp cirrhosis 07/25/24 10:19 Consult to Gastroenterology Routine Consulting Provider: [facility] – [place] Gastroenterology Services Reason for consultation: ?cholecystitis; cirrhosis 07/30/24 11:08 Consult to Wound Care Routine Reason for consultation: stage II coccyx Attending physician on discharge: Matt Rosenberg DS: Diagnosis Discharge Diagnosis (1) Hematemesis: Status: Acute DS: Summary Hospital Course Hospital Course: date of service and discharge 08/01/24 : HPI:58-year-old male with pertinent history of alcohol use disorder with alcoholic liver cirrhosis, mood disorder, gastroesophageal reflux disease, BPH who presents to the emergency department for evaluation of abdominal pain, nausea and vomiting. Patient states symptoms have been ongoing for for the last 1 month. He has been having abdominal discomfort which was initially intermittent but progressed to being constant, nonradiating and without any relieving factors. Also has been having multiple episodes of nausea and nonbloody emesis. Unable to tolerate p.o. intake due to his symptoms. No loose stools, hematemesis, melena or hematochezia. Patient states he has not taken his prescription medications in the last 2 months as he ran out of them. No fever, chills, chest pain, palpitations, shortness of breath, changes in urinary habits. Does endorse abdominal distention. In the emergency department, serum potassium was found to be low. Imaging concerning for gallbladder wall thickening and General surgery was consulted who requested admission with HIDA scan. hospital course: 59-year-old male with history of alcoholic cirrhosis, came to the hospital because of abdominal pain nausea vomiting and noncompliance with meds-found to have ascites hypokalemia and possible hepatic encephalopathy as well as coffee-ground emesis-admitted for acute blood loss anemia due to upper GI bleed: Patient was started on IV PPIs, sucralfate GI consulted subsequently patient had EGD done:Grade D esophagitis with spontaneous oozing (hemospray),Hiatal hernia ,Portal hypertensive gastropathy: Subsequently patient H&H stable, GI bleed likely due to esophagitis. Patient was switched to p.o. PPI, continue sucralfate. Monitor CBC outpatient. hepatic encephalopathy-improved with lactulose , goal bm 2-3 bm /day. nausea ,vomiting -resolved with symptomatic maangement ( d/w Gi -likley sec to alcoholic hepatitis ,esophagitis ,overeating).abd pain resolved. EtOH hepatitis- MDF >32 but would not be a good candidate for steroids unless he can commit to stopping drinking. Hypokalemia: on potassium supplements and patient is on spironolactone, monitor BMP closely.. Ascites: Patient had paracentesis done on 07/24/24, fluid analysis neg for sbp,fluid cultures also negative ,checked again with us ( 07/29) -no significant ascitis fluid to drain-added lasix 20 mg daily iin addition to spironolactone. GB wall thickening CBD dilation - likely due to cirrhosis; Surgery consulted appreciated; both Surgery and GI doubt he has cholecystitis and his pain has improved and was not in the RUQ. Formal MRCP noted-has GB wall thickening, inaddition might need outpatient mri with contrast-Evaluation of liver lesions is very limited, for which correlation with outpatient MRI with and without intravenous contrast HCC protocol is recommended as clinically warranted plan: patient was strongly advised for complabnce with meds as well abstain from alcohol. Lasix 20 mg daily,sprinolactone 100 mg daily magnessium 200 mg daily Lactulose 20 mL b.i.d. PPIs-omeprazole 40 mg b.i.d., sucralfate 10 ml q.i.d. in addition Gi -need primary prophylaxis for SBP on discharge as has low ascitic TP and high Mohinder score: added cipro 500 mg po daily upon discharge. Monitor bmp,magnesium, LFTs, H&H outpatient, also consider outpatient abd MRI (as above). Follow-up with patient's GI outpatient. Patient was strongly advised to compliant with his medications, avoid overeating because that causes nausea vomiting. Assessment and plan coordination time spent 40 minute. Patient understand and the above. Time Attestation Total time managing care of this patient today: 40 mintues. Discharge Coordination Time (in mins): 40 min Quality: Safe Use of Opioids Does Pt have an Active Cancer Diagnosis on the Problem List?: No Quality: Stroke Does the patient have a stroke diagnosis?: No Physical Exam Vital Signs: Vital Signs: Last Vital Signs Temp 96.8 F 07/31/24 08:00 Pulse 69 07/31/24 08:00 Resp 16 07/31/24 08:00 BP 103/50 L 07/31/24 08:00 Pulse Ox 100 07/31/24 08:00 O2 Del Method Room Air 07/31/24 09:00 O2 Flow Rate 6 07/27/24 10:00 BMI result Body Mass Index 27.7 General-aox3 ,not in distress. Lungs: clear to auscultation bilaterally Heart: [id number]. Abd: nd,nt ,bs present. Ext: no edema Skin: warm/well-perfused, jaundiced Neuro: alert and oriented x3, no focal findings, no asterixis Psych: appropriate affect DS: Data Data Completed and Pending Completed studies during hospitalization [Text1]: Procedures Control Bleeding in Gastrointestinal Tract, Via Natural or Artificial Opening Endoscopic (03/20/24) Detoxification Services for Substance Abuse Treatment (03/20/24) Drainage of Bladder with Drainage Device, Via Natural or Artificial Opening Endoscopic (02/23/24) Drainage of Peritoneal Cavity, Percutaneous Approach (03/20/24) Excision of Cecum, Via Natural or Artificial Opening Endoscopic, Diagnostic (03/02/22) Excision of Rectum, Via Natural or Artificial Opening Endoscopic, Diagnostic (03/02/22) Insertion of Infusion Device into Right Femoral Artery, Percutaneous Approach (03/20/24) Insertion of Infusion Device into Superior Vena Cava, Percutaneous Approach (03/20/24) Inspection of Upper Intestinal Tract, Via Natural or Artificial Opening Endoscopic (02/23/24) Introduction of Mineral-based Topical Hemostatic Agent into Upper GI, Via Natural or Artificial Opening Endoscopic, [employer] (03/20/24) Introduction of Other Therapeutic Substance into Upper GI, Via Natural or Artificial Opening Endoscopic (03/20/24) Introduction of Vasopressor into Peripheral Vein, Percutaneous Approach (02/23/24) Repair Scalp Skin, External Approach (11/20/21) Respiratory Ventilation, 24-96 Consecutive Hours (03/20/24) Transfusion of Nonautologous Frozen Plasma into Peripheral Vein, Percutaneous Approach (03/20/24) Transfusion of Nonautologous Platelets into Peripheral Vein, Percutaneous Approach (02/23/24) Transfusion of Nonautologous Red Blood Cells into Peripheral Vein, Percutaneous Approach (03/20/24) Ultrasonography of Superior Vena Cava, Guidance (03/20/24) Imaging Chest x-ray: Radiologist's impression: ITS Impressions Abdomen Ultrasound 07/23/24 14:00 IMPRESSION: 1. Very limited examination secondary to patient body habitus, pain and shadowing from overlying bowel gas. 2. Cirrhotic liver morphology with hepatofugal flow of the main portal vein and small volume of ascites most consistent with portal hypertension. 3. Mild gallbladder wall thickening and trace pericholecystic free fluid are indeterminate in the context of cirrhosis, portal hypertension and ascites. Internal echogenic bile and sludge are seen, however no discrete posterior shadowing calculi are visualized. Electronically signed by: Jade Cleveland MD 07/23/2024 05:07 PM EDT RP Abdomen/Pelvis CT 07/23/24 19:26 IMPRESSION: *Cirrhosis with mild-moderate ascites and anasarca. The quantity of ascites and degree of anasarca are both mildly increased compared with 05/22/2024. *Cholelithiasis. Multiple calcified gallstones within the dependent portion of the gallbladder lumen. The common bile duct currently measures 10 mm diameter increased in caliber compared with 05/22/2024. No intrahepatic biliary duct dilatation identified. Increased caliber of the common bile duct could be secondary to choledocholithiasis or dysfunction at the sphincter of Trevin. Mild diffuse gallbladder wall thickening is present but is a nonspecific finding in the setting of ascites. *Unchanged splenorenal varices consistent with underlying portal hypertension. *Trace left pleural effusion and mild left base compressive atelectasis similar findings present 05/22/2024. Electronically signed by: Franco Sal MD 07/23/2024 11:04 PM EDT RP Hepatobiliary Scan Nuclear Medicine 07/24/24 09:10 IMPRESSION: 1. Impaired liver function, consistent with clinically known cirrhosis. 2. Visualization of the biliary tree and biliary to bowel transit time appears to be within normal limits. 3. The gallbladder remained nonvisualized on the initial 60 and subsequent 120 minutes delayed images. 4 hours delayed imaging as per our protocol could not be however obtained due to patient's refusal and also patient apparently was scheduled for a paracentesis. Possible differential diagnostic consideration at this point would include physiologic gallbladder contraction versus chronic cholecystitis as well as acute cholecystitis. Alternative imaging modality as appropriate may be considered for further clarification. Alternatively, further delayed imaging including 24 hours delayed imaging may be considered if appropriate for further clarification. Electronically signed by: Cindy Lux MD 07/24/2024 05:00 PM EDT RP Orbit X-Ray 07/24/24 17:35 IMPRESSION: No radiopaque metallic foreign bodies seen in the orbits.. Electronically signed by: Fredy Cordova MD 07/24/2024 07:45 PM EDT RP Cholangiopancreatography MRI 07/26/24 11:43 IMPRESSION: Limited evaluation secondary to motion, lack of intravenous contrast and moderate volume of ascites. No significant biliary ductal dilatation. Within limitations of motion, no evidence of choledocholithiasis. Cirrhotic liver with hepatic steatosis and portal hypertension. Evaluation of liver lesions is very limited, for which correlation with outpatient MRI with and without intravenous contrast HCC protocol is recommended as clinically warranted. Gallbladder calculi and sludge with indeterminate gallbladder wall thickening and pericholecystic free fluid. Clinical correlation recommended. Wall thickening and mural edema involving the stomach, small bowel and ascending colon which could indicate portal enteropathy in the setting of portal hypertension, correlate clinically. Moderate volume of ascites with loculated pockets in the right upper quadrant abutting the surface of the posterior right hepatic lobe. Anasarca and small pleural effusions. Electronically signed by: Jade Cleveland MD 07/29/2024 04:32 PM EDT RP Discharge Plan Discharge Anticipated Discharge Date/Time: 07/31/24 11:40 Patient Disposition: Xfer SNF Discharge Diagnosis: acute blood loss anemia due to UGIB due to esophagitis Referrals: [facility] [Outside] - 1 Week (TRANSFER FOR SHORT TERM REHAB) Fransisco Soria MD [Primary Care Provider] - 1 Week Discharge Medications: New furosemide 40 mg Tablet 20 mg PO DAILY Qty: 1 0RF Protocol: Hold for SBP< HOLD for SBP < : 90 sucralfate 100 mg/mL Suspension 1 g PO QIDACHS Qty: 1 0RF lactulose 20 gram/30 mL Solution 20 g PO BID Qty: 1 0RF omeprazole 40 mg Capsule,Delayed Release(Dr/Ec) 40 mg PO BID@0630,1630 Qty: 1 0RF magnesium 200 mg tablet 200 mg PO DAILY Qty: 14 0RF ciprofloxacin HCl [Cipro] 500 mg tablet 500 mg PO DAILY Qty: 1 0RF Continued mirtazapine 15 mg tablet 15 mg PO BEDTIME melatonin 10 mg tablet 10 mg PO BEDTIME potassium chloride 20 mEq tablet extended release 20 meq PO DAILY quetiapine [Seroquel] 50 mg tablet 50 mg PO DAILY spironolactone 100 mg tablet 100 mg PO DAILY tamsulosin 0.4 mg capsule 0.4 mg PO BEDTIME topiramate 200 mg tablet 200 mg PO BID Discharge Orders: Discharge Order (Routine); Ordered 08/01/24 Ordered By: Matt Rosenberg Diet: Advance to usual diet Activity on Discharge: As tolerated Stand Alone Forms: Patient Portal Discharge page Print Language: Guamanian Care Plan Goals: 59-year-old male with history of alcoholic cirrhosis, came to the hospital because of abdominal pain nausea vomiting and noncompliance with meds-found to have ascites hypokalemia and possible hepatic encephalopathy as well as coffee-ground emesis-admitted for acute blood loss anemia due to upper GI bleed: Patient was started on IV PPIs, sucralfate GI consulted subsequently patient had EGD done:Grade D esophagitis with spontaneous oozing (hemospray),Hiatal hernia ,Portal hypertensive gastropathy: Subsequently patient H&H stable, GI bleed likely due to esophagitis. Patient was switched to p.o. PPI, continue sucralfate. Monitor CBC outpatient. Hypokalemia: Improved with supplement patient is on spironolactone, monitor BMP in 1 week. Ascites: Patient had paracentesis done on 07/24/24, fluid analysis neg for sbp,fluid cultures also negative ,checked again with us ( 07/29) -no significant ascitis fluid to drain-added lasix 20 mg daily iin addition to spironolactone. Health Concerns: Lasix 20 mg daily Lactulose 20 mL b.i.d. PPIs-omeprazole 40 mg b.i.d., sucralfate 10 ml q.i.d. in addition Gi -need primary prophylaxis for SBP on discharge as has low ascitic TP and high Mohinder score: added cipro 500 mg po daily upon discharge. Monitor renal function, LFTs, H&H outpatient Follow-up with patient's GI outpatient. Patient was strongly advised to compliant with his medications, avoid overeating because that causes nausea vomiting. Assessment and plan coordination time spent 40 minute. Patient understand and the above. Plan of Treatment: as above. Assessment: as above.
[2024-07-31] MEDS: ondansetron HCL 4 MG/2 ML VIAL IVPUSH ×2 (13:48→21:17)
--- NOTE | 2024-07-31 14:32 | P.PNGS_ITS ---
Subjective Subjective Date of Service: 07/31/24 Interval history: Was being transferred to facility today but developed nausea and vomiting, abd pain again. General surgery asked to reevaluate patient. Patient reports nausea has resolved and has tolerated solid diet. He reports some LLQ abd pain. He feels like he is at his baseline. Physical Exam 2 Vital Signs: Vital Signs: Last Vital Signs Temp 96.8 F 07/31/24 08:00 Pulse 69 07/31/24 08:00 Resp 16 07/31/24 08:00 BP 103/50 L 07/31/24 08:00 Pulse Ox 100 07/31/24 08:00 O2 Del Method Room Air 07/31/24 09:00 O2 Flow Rate 6 07/27/24 10:00 BMI result Body Mass Index 27.7 Const: General: comfortable and alert Orientation/consciousness: patient oriented x3 GI: Other: protuberant abdomen Inspection: Yes caput medusae present Palpation (GI): Soft to palpation, Tenderness to palpation present (GI) (diffuse tenderness, most increased LLQ) and no guarding Percussion: Yes dullness to percussion Skin: General skin exam: jaundice Neuro: General: patient oriented x3 Objective Data Active Medications Acetaminophen (Acetaminophen 325 Mg Tablet) 650 mg PO Q6H PRN PRN Reason: Pain, Mild (Pain Scale 1-3), fever or headache Calcium Carbonate (Calcium Carbonate 750 Mg Tab.Chew) 750 mg PO Q4H PRN PRN Reason: Heartburn Last Admin: 07/30/24 15:48 Dose: 750 mg Documented By: HANNA Ceftriaxone Sodium (Ceftriaxone Sodium 1 Gm Vial) 1 gm IVPUSH Q24H [facility] Last Admin: 07/31/24 08:06 Dose: 1 gm Documented By: NORMAN Furosemide (Furosemide 40 Mg Tablet) 40 mg PO DAILY [facility]; Protocol Last Admin: 07/31/24 08:08 Dose: 40 mg Documented By: NORMAN Lactulose (Lactulose 20 Gm/30 Ml Solution) 20 gm PO BID [facility] Last Admin: 07/31/24 08:09 Dose: Not Given Documented By: NORMAN Non-Admin Reason: Patient Refused Magnesium Hydroxide (Milk Of Magnesia 30 Ml Oral.Susp) 30 ml PO DAILY PRN PRN Reason: Constipation Melatonin (Melatonin 3 Mg Tablet) 9 mg PO BEDTIME [facility] Last Admin: 07/30/24 22:13 Dose: 9 mg Documented By: ROLLY Mirtazapine (Mirtazapine 15 Mg Tablet) 15 mg PO BEDTIME [facility] Last Admin: 07/30/24 22:13 Dose: 15 mg Documented By: ROLLY Naloxone HCl (Naloxone Hcl 0.4 Mg/Ml Vial) 0.04 mg IVPUSH Q5M PRN PRN Reason: Excessive sedation or RR < 8 Omeprazole (Omeprazole 40 Mg Capsule.Dr) 40 mg PO BID@0630,1630 [facility] Last Admin: 07/31/24 06:08 Dose: 40 mg Documented By: JOSE MANUEL Ondansetron HCl (Ondansetron Hcl 4 Mg/2 Ml Vial) 4 mg IVPUSH Q8H [facility] Last Admin: 07/31/24 13:48 Dose: 4 mg Documented By: NORMAN Potassium Chloride (Potassium Chloride Er 20 Meq Tab.Er.Prt) 40 meq PO BID [facility] Last Admin: 07/31/24 08:08 Dose: 40 meq Documented By: NORMAN Quetiapine Fumarate (Quetiapine Fumarate 50 Mg Tablet) 50 mg PO DAILY [facility] Last Admin: 07/31/24 08:06 Dose: 50 mg Documented By: NORMAN Sodium Chloride (0.9 % Sodium Chloride Flush 3 Ml Syringe) 3 ml IVFLUSH QSHIFT [facility] Last Admin: 07/31/24 10:00 Dose: Not Given Documented By: NORMAN Non-Admin Reason: IV Running Spironolactone (Spironolactone 25 Mg Tablet) 100 mg PO DAILY [facility]; Protocol Last Admin: 07/31/24 08:09 Dose: 100 mg Documented By: NORMAN Sucralfate (Sucralfate Oral Suspension 1 Gm/10 Ml Oral.Susp) 1 gm PO QIDACHS [facility] Last Admin: 07/31/24 11:24 Dose: Not Given Documented By: NORMAN Non-Admin Reason: Patient Refused Tamsulosin HCl (Tamsulosin Hcl 0.4 Mg Capsule) 0.4 mg PO BEDTIME [facility] Last Admin: 07/30/24 22:12 Dose: 0.4 mg Documented By: ROLLY Topiramate (Topiramate 100 Mg Tablet) 200 mg PO BID [facility] Last Admin: 10/16/24 08:08 Dose: 200 mg Documented By: NORMAN Labs 07/29/24 06:58 07/29/24 06:58 Procedures Date of Service Date of Service: 07/31/24 Progress Note: A&P Assessment and plan (1) Alcoholic hepatitis: Status: Acute Plan CT/MRI findings showing mildly thickened gallbladder wall likely from cirrhosis. He reports his pain is in the LLQ. His abdomen remains tender but diffusely. Acute cholecystitis remains unlikely. Abd pain likely due to end stage liver disease. Time Spent With Patient Time: Total time managing care of this patient today ____ minutes. Quality Stroke Does the patient have a stroke diagnosis?: No VTE Prior VTE?: No VTE Risk Level:: Medical - moderate - high VTE Device Contraindication: N/A - Device Ordered VTE Drug Contraindication: Treatment Not Indicated
--- NOTE | 2024-07-31 15:00 | HO.PM.IMPN ---
Subjective Subjective Date of Service: 07/31/24 Interval History: nausea vomiting Review of Systems still has n/v no much abd discomfort says abd always looks globular no fevers Physical Exam Vital Signs: Vital Signs: Last Vital Signs Temp 96.8 F 07/31/24 08:00 Pulse 69 07/31/24 08:00 Resp 16 07/31/24 08:00 BP 103/50 L 07/31/24 08:00 Pulse Ox 100 07/31/24 08:00 O2 Del Method Room Air 07/31/24 09:00 O2 Flow Rate 6 07/27/24 10:00 BMI result Body Mass Index 27.7 Lungs: clear to auscultation bilaterally Heart: [id number]. Abd: globular,nt ,bs present Ext: 1+ bilateral edema of legs Skin: warm/well-perfused, jaundiced Neuro: alert and oriented x3, no focal findings, no asterixis Psych: appropriate affect Objective Data Active Medications Acetaminophen (Acetaminophen 325 Mg Tablet) 650 mg PO Q6H PRN PRN Reason: Pain, Mild (Pain Scale 1-3), fever or headache Calcium Carbonate (Calcium Carbonate 750 Mg Tab.Chew) 750 mg PO Q4H PRN PRN Reason: Heartburn Last Admin: 07/30/24 15:48 Dose: 750 mg Documented By: HANNA Ceftriaxone Sodium (Ceftriaxone Sodium 1 Gm Vial) 1 gm IVPUSH Q24H [facility] Last Admin: 07/31/24 08:06 Dose: 1 gm Documented By: NORMAN Furosemide (Furosemide 40 Mg Tablet) 40 mg PO DAILY [facility]; Protocol Last Admin: 07/31/24 08:08 Dose: 40 mg Documented By: NORMAN Lactulose (Lactulose 20 Gm/30 Ml Solution) 20 gm PO BID [facility] Last Admin: 07/31/24 08:09 Dose: Not Given Documented By: NORMAN Non-Admin Reason: Patient Refused Magnesium Hydroxide (Milk Of Magnesia 30 Ml Oral.Susp) 30 ml PO DAILY PRN PRN Reason: Constipation Melatonin (Melatonin 3 Mg Tablet) 9 mg PO BEDTIME [facility] Last Admin: 07/30/24 22:13 Dose: 9 mg Documented By: ROLLY Mirtazapine (Mirtazapine 15 Mg Tablet) 15 mg PO BEDTIME [facility] Last Admin: 07/30/24 22:13 Dose: 15 mg Documented By: ROLLY Naloxone HCl (Naloxone Hcl 0.4 Mg/Ml Vial) 0.04 mg IVPUSH Q5M PRN PRN Reason: Excessive sedation or RR < 8 Omeprazole (Omeprazole 40 Mg Capsule.Dr) 40 mg PO BID@0630,1630 [facility] Last Admin: 07/31/24 06:08 Dose: 40 mg Documented By: JOSE MANUEL Ondansetron HCl (Ondansetron Hcl 4 Mg/2 Ml Vial) 4 mg IVPUSH Q8H [facility] Last Admin: 07/31/24 13:48 Dose: 4 mg Documented By: NORMAN Potassium Chloride (Potassium Chloride Er 20 Meq Tab.Er.Prt) 40 meq PO BID [facility] Last Admin: 07/31/24 08:08 Dose: 40 meq Documented By: NORMAN Quetiapine Fumarate (Quetiapine Fumarate 50 Mg Tablet) 50 mg PO DAILY [facility] Last Admin: 07/31/24 08:06 Dose: 50 mg Documented By: NORMAN Sodium Chloride (0.9 % Sodium Chloride Flush 3 Ml Syringe) 3 ml IVFLUSH QSHIFT [facility] Last Admin: 07/31/24 10:00 Dose: Not Given Documented By: NORMAN Non-Admin Reason: IV Running Spironolactone (Spironolactone 25 Mg Tablet) 100 mg PO DAILY [facility]; Protocol Last Admin: 07/31/24 08:09 Dose: 100 mg Documented By: NORMAN Sucralfate (Sucralfate Oral Suspension 1 Gm/10 Ml Oral.Susp) 1 gm PO QIDACHS [facility] Last Admin: 07/31/24 11:24 Dose: Not Given Documented By: NORMAN Non-Admin Reason: Patient Refused Tamsulosin HCl (Tamsulosin Hcl 0.4 Mg Capsule) 0.4 mg PO BEDTIME [facility] Last Admin: 07/30/24 22:12 Dose: 0.4 mg Documented By: ROLLY Topiramate (Topiramate 100 Mg Tablet) 200 mg PO BID [facility] Last Admin: 07/31/24 08:08 Dose: 200 mg Documented By: NORMAN Labs 07/29/24 06:58 07/29/24 06:58 Assessment and Plan (1) Hematemesis: Status: Acute Plan d6 for 59yo M with decompensated EtOH cirrhosis + hx prostate CA presenting with abd pain, N/V for past 1 mo, noncompliant with meds x 2mo found to have ascites, hypoK, GB wall thickening, hepatic encephalopathy now coffee-ground emesis nausea /vomiting: possible multifactorial ( abd mri/hida shows gall bladder wall thiness vs esophagitis, alcoholic hepatitis ,?overeating): plan: does not have ruq pain ,has nausea/vomitin continue zofran,ppi scheduled ,advised not overeating. surgery followup acute blood loss anemia due to UGIB due to esophagitis- EGD 07/[address] Gibson: Grade D esophagitis with spontaneous oozing (hemospray) Hiatal hernia Portal hypertensive gastropathy Normal duodenum (biopsy) plan: received iv ppi, continue sucralfate;1u pRBCs 07/27 h/h stable in 9.5 range switched to oral ppi,sucralfate and avoid EtOH, smoking + NSAIDs hypoK: improved to repletion considering patient is also on sprinolactone , will check k levels. ascites diagnostic paracentesis 07/24/24; WBC count not meeting SBP criteria; Cx negative. as per us exam (07/29)-not enough to fluids to drain continue ceftriaxone for SBP prophylaxis and per GI -will need ciprofloxacin or TMP-SMX upon discharge for primary prophylaxis against SBP. continue spironolactone + hold furosemide(has nausea/vomiting), should have electrolytes periodically checked as outpt GB wall thickening CBD dilation - likely due to cirrhosis; Surgery consulted appreciated; both Surgery and GI doubt he has cholecystitis and his pain has improved and was not in the RUQ. Will change ceftriaxone from treatment to SBP prophylaxis and d/c metronidazole. Formal MRCP noted-has GB wall thickening, inaddition might need outpatient mri with contrast-Evaluation of liver lesions is very limited, for which correlation with outpatient MRI with and without intravenous contrast HCC protocol is recommended as clinically warranted. hepatic encephalopathy - lactulose EtOH hepatitis - MDF >32 but would not be a good candidate for steroids unless he can commit to stopping drinking AUD - declined Recovery Team support - prn CIWA; no withdrawal signs - continue topiramate prostatism - tamsulosin mood disorder - quetiapine + mirtazapine thrombocytopenia due to cirrhosis - monitor CBC coagulopathy due to cirrhosis - did not correct with vit K VTE ppx - SCDs; no heparin given low plts + GI bleeding dispo - PT consulted, STR recommended In my clinical judgment, the patient requires continued inpatient hospitalization for the following reasons: nausea/vomitin, abnormal mri -need surgerical follow up,also unableto tolerate po yet. Quality Stroke Does the patient have a stroke diagnosis?: No VTE Prior VTE?: No VTE Risk Level:: Medical - moderate - high VTE Device Contraindication: N/A - Device Ordered VTE Drug Contraindication: Treatment Not Indicated
[2024-07-31 15:26] VITALS: BP 112/57; PULSE 71; RESP 18; TEMP 36.4; O2SAT 99
[2024-07-31 15:58] LABS: Potassium 3.9 mmol/L (3.3-5.1)
[2024-07-31] MEDS: 0.9 % Sodium Chloride Flush 3 ML SYRINGE IVFLUSH ×2 (17:36→23:47)
[2024-07-31 19:32] VITALS: BP 99/51; PULSE 72; RESP 20; TEMP 36.2; O2SAT 98
[2024-07-31] MEDS: Tamsulosin HCL 0.4 MG CAPSULE PO (21:17)
[2024-07-31] MEDS: Mirtazapine 15 MG TABLET PO (21:18)
[2024-07-31] MEDS: Melatonin 3 MG TABLET 9 MG PO (21:18)
--- NOTE | 2024-07-31 22:05 | PC.NURSE ---
patient refused his 21:00 scheduled lactulose and sucralfate
[2024-08-01 03:33] VITALS: BP 107/52; PULSE 76; RESP 16; TEMP 36.1; O2SAT 98
[2024-08-01] MEDS: ondansetron HCL 4 MG/2 ML VIAL IVPUSH (05:23)
[2024-08-01] MEDS: Omeprazole 40 MG CAPSULE.DR PO (05:23)
[2024-08-01 07:39] VITALS: BP 116/57; PULSE 76; RESP 16; TEMP 36.5; O2SAT 100
[2024-08-01] MEDS: cefTRIAXone sodium 1 GM VIAL IVPUSH (07:39)
[2024-08-01] MEDS: Potassium Chloride ER 20 MEQ TAB.ER.PRT PO (07:40)
[2024-08-01] MEDS: Furosemide 40 MG TABLET PO (07:40)
[2024-08-01] MEDS: QUEtiapine Fumarate 50 MG TABLET PO (07:40)
[2024-08-01] MEDS: Topiramate 100 MG TABLET 200 MG PO (07:40)
[2024-08-01] MEDS: Spironolactone 25 MG TABLET 100 MG PO (07:41)
[2024-08-01] MEDS: 0.9 % Sodium Chloride Flush 3 ML SYRINGE IVFLUSH (07:55)
--- NOTE | 2024-08-01 10:49 | MHC.CM.PN ---
DP: PT HAS BEEN MEDICALLY CLEARED FOR DC TO [facility] FOR STR. RN UPDATED. HCP/S/O MADE AWARE. BLS TRANSPORT BOOKED FOR 12 NOON VIA [facility]. CENTER UPDATED.
[2024-08-01] MEDS: levoFLOXacin 500 MG TABLET PO (10:56)
== END 2024-08-01 12:08 | disposition skilled nursing facility (03) | DRG 432 ==
LOC: HO.ED 18:25 → HO.EDOVER 23:46 → HO.S3 07-24 07:26
PROVIDERS: Family Medicine; Internal Medicine; Physician Assistant Surgical; Registered Nurse Emergency; Admitting Provider Student in an Organized Health Care Education/Training Program; Emergency Provider Emergency Medicine; PCP Internal Medicine; Visit Provider Internal Medicine
PROC: 0DJ08ZZ Inspection of Upper Intestinal Tract, Via Natural or Artificial Opening Endoscopic (ICD-10-PCS; CPT 43235; principal; 2024-07-27 09:00)
DX: K70.31 Alcoholic cirrhosis of liver with ascites (principal); K20.91 Esophagitis, unspecified with bleeding; E87.1 Hypo-osmolality and hyponatremia; K76.6 Portal hypertension; D68.4 Acquired coagulation factor deficiency; K70.11 Alcoholic hepatitis with ascites; F17.210 Nicotine dependence, cigarettes, uncomplicated; D69.59 Other secondary thrombocytopenia; Z71.6 Tobacco abuse counseling; K76.82 Hepatic encephalopathy; K31.89 Other diseases of stomach and duodenum; K44.9 Diaphragmatic hernia without obstruction or gangrene; N40.0 Benign prostatic hyperplasia without lower urinary tract symptoms; F10.90 Alcohol use, unspecified, uncomplicated; E87.6 Hypokalemia; Y90.1 Blood alcohol level of 20-39 mg/100 ml; Z20.822 Contact with and (suspected) exposure to COVID-19; Z91.148 Patient's other noncompliance with medication regimen for other reason; Z79.899 Other long term (current) drug therapy
CPT/HCPCS: 0241U; 36415; 49083; 74177; 74181; 76705; 78226; 80048; 80053; 80307; 81001; 82042; 82140; 82150; 82248; 82272; 82945; 83690; 83735; 83986; 84132; 84157; 85025; 85027; 85610; 86140; 86850; 86900; 86901; 86923; 87070; 87073; 87205; 89051; 93005; 97110; 97116; 97162; 99285; A9537; J0696; J1836; J2003; J2354; J2405; J2470; J2550; J2704; J3010; J3411; J3430; J3480; P9016; P9047; Q9967

== ENCOUNTER → 2024-07-23 11:58 | Outpatient (BNV) | payer MEDICARE, SELFPAY | PROVIDERS: Emergency Provider Emergency Medicine; PCP Internal Medicine; Visit Provider Internal Medicine Cardiovascular Disease | DX: R94.31 Abnormal electrocardiogram [ECG] [EKG] (principal) | CPT/HCPCS: 93010 ==

== ENCOUNTER 2024-07-23 23:31 | Outpatient (BNV) | payer MEDICARE, SELFPAY | END 2024-07-24 14:55 | PROVIDERS: Admitting Provider Student in an Organized Health Care Education/Training Program; Emergency Provider Emergency Medicine; PCP Internal Medicine; Visit Provider Physician Assistant Surgical | DX: R18.8 Other ascites (principal) | CPT/HCPCS: 49083 ==

== ENCOUNTER → 2024-07-23 23:31 | Outpatient (BNV) | payer MEDICARE, SELFPAY | PROVIDERS: Admitting Provider Student in an Organized Health Care Education/Training Program; Emergency Provider Emergency Medicine; PCP Internal Medicine; Visit Provider Student in an Organized Health Care Education/Training Program | DX: K92.0 Hematemesis (principal) | CPT/HCPCS: 99223; 99231; 99232; 99233; 99239; 99499 ==

== ENCOUNTER → 2024-07-23 23:31 | Outpatient (BNV) | payer MEDICARE, SELFPAY | PROVIDERS: Admitting Provider Student in an Organized Health Care Education/Training Program; Emergency Provider Emergency Medicine; PCP Internal Medicine; Visit Provider Surgery | DX: K70.10 Alcoholic hepatitis without ascites (principal) | CPT/HCPCS: 99222; 99232 ==

== ENCOUNTER → 2024-07-23 23:31 | Outpatient (BNV) | payer MEDICARE, SELFPAY | PROVIDERS: Admitting Provider Student in an Organized Health Care Education/Training Program; Emergency Provider Emergency Medicine; PCP Internal Medicine; Visit Provider Internal Medicine | DX: R10.9 Unspecified abdominal pain (principal); F10.20 Alcohol dependence, uncomplicated; K72.90 Hepatic failure, unspecified without coma; K74.60 Unspecified cirrhosis of liver; R18.8 Other ascites; K70.10 Alcoholic hepatitis without ascites | CPT/HCPCS: 43255; 99223; 99232 ==

== ENCOUNTER 2024-08-08 03:01 | Inpatient (IN) | payer MEDICARE, SELFPAY ==
[2024-08-08] VITALS (24 sets, daily range): BP systolic 97–117; BP diastolic 48–63; PULSE 74–101; RESP 12–18; TEMP -13.3–36.9; O2SAT 96–100; BMI 29.4
--- NOTE | 2024-08-08 03:05 | ED.ABDPAIN ---
HPI - Abdominal Pain General Chief Complaint: GI Bleed Stated Complaint: VOMITING BLOOD Time Seen by Provider: 08/08/24 03:03 Source: patient Mode of arrival: EMS Limitations: no limitations History of Present Illness ED Provider: luis HERNANDEZ narrative: Patient is 59 years old with history of alcoholic cirrhosis with ascites recent admission on 07/23/2024 discharged on 07/31/2024 for upper GI bleed patient's had endoscopy on 07/27 which showed severe esophagitis with ulceration and oozing from mucosa humerus spray was applied for hemostasis , portal hypertensive gastropathy patient has claimed that since discharge been vomiting coffee colored got worse prior to arrival denied any melena feeling weak during last admission received 2 units of blood Related Data Home Medications ?Medication ?Instructions ?Recorded ?Confirmed melatonin 10 mg tablet 10 mg PO BEDTIME Insomnia 11/13/23 07/23/24 mirtazapine 15 mg tablet 15 mg PO BEDTIME 11/13/23 07/23/24 potassium chloride 20 mEq 20 meq PO DAILY 03/20/24 07/23/24 tablet,extended release quetiapine 50 mg tablet (Seroquel) 50 mg PO DAILY 03/20/24 07/23/24 spironolactone 100 mg tablet 100 mg PO DAILY 07/23/24 07/23/24 tamsulosin 0.4 mg capsule 0.4 mg PO BEDTIME 07/23/24 07/23/24 topiramate 200 mg tablet 200 mg PO BID 07/23/24 07/23/24 Previous Rx's ?Medication ?Instructions ?Recorded furosemide 40 mg tablet 20 mg PO DAILY #1 tab 07/31/24 lactulose 20 gram/30 mL oral 20 g (30 mL) PO BID #1 mL 07/31/24 solution omeprazole 40 mg capsule,delayed 40 mg PO BID@0630,1630 #1 cap 07/31/24 release sucralfate 100 mg/mL oral 1 g (10 mL) PO QIDACHS #1 mL 07/31/24 suspension ciprofloxacin HCl 500 mg tablet 500 mg PO DAILY #1 tab 08/01/24 (Cipro) magnesium 200 mg tablet 200 mg PO DAILY #14 tabs 08/01/24 Allergies Allergy/AdvReac Type Severity Reaction Status Date / Time Fish Containing Products Allergy Severe THROAT Verified 08/08/24 03:14 SWELLING peanut [Peanut] Allergy Severe THROAT Verified 08/08/24 03:14 SWELLING Review of Systems Review of Systems Yes all other systems are reviewed and are negative [facility] Past Medical History Medical History Congestive heart failure Anemia ETOH abuse Alcoholic cirrhosis PTSD (post-traumatic stress disorder) Hyponatremia Acute hyponatremia NATHANIEL (acute kidney injury) Acute metabolic encephalopathy Falls Alcoholic cirrhosis of liver with ascites Prostate cancer Depression Hyperlipidemia Hypertension Anxiety Social History Social History Household Members: Significant Other Household Members Other:: fiancee Housing: Condominium Do you presently have visiting nurse or other home services: No Unable to assess alcohol history related to: Refusing to respond Alcohol intake: former Comment: bilateral wrist restraints for airway safety Patient Tobacco Use Status: Current everyday Tobacco user Tobacco use type: Cigarette Cigarette Packs Per Day: 2 Cigarettes Per Day: 3 Years Smoked: 25 Smoked in Last 30 Days: Yes e-Cigarette/Vaping Use: Currently Using Second Hand Smoke Exposure: No Use of substances other than those prescribed or required for medical reasons: No Substance Use Type: Marijuana Advance Directives: Yes Advance Directives on File: Yes Advance Directives Date on File: 11/11/21 Do you have a plan to hurt others: No Plan service: No Current occupational status: disabled Physical Exam ED Vital Signs: Vital Signs - 24 hr 08/08/24 03:10 08/08/24 04:00 08/08/24 06:00 Temperature 98.3 F 97.7 F 98.1 F Pulse Rate 94 93 93 Respiratory Rate 18 16 16 Blood Pressure 116/60 114/56 L 104/56 L Pulse Oximetry 100 100 99 Oxygen Delivery Method Room Air Room Air Room Air 08/08/24 06:05 08/08/24 06:24 Temperature 98.1 F 98.5 F Pulse Rate 101 H 92 Respiratory Rate 18 18 Blood Pressure 117/54 L 101/58 L Pulse Oximetry Oxygen Delivery Method BMI result Body Mass Index 29.4 Appearance: Alert. Oriented X3. No acute distress. Eyes: PERRLA, No Nystagmus ENT: Pharynx normal. Oral Mucosa moist Neck: Normal inspection. Neck supple. CVS: Normal heart rate and rhythm. Pulses normal. Respiratory: No respiratory distress. Equal air entry bilateral, no wheezing/rales/rhonchi Abdomen: Soft and epigastric area tender, free fluid+ Bowel sounds are present, no mass palpable, no CVA tenderness Skin: Skin warm and dry. Normal skin color. Normal skin turgor. Extremities: No lower extremity edema. No calf tenderness Neuro: Oriented X 3. No motor deficit. No sensory deficit.No cerebellar signs , cranial nerves II-XII intact Medical Decision Making Medical Decision Making [facility] Narrative: Patient with significant esophagitis with bleeding ulcer in the recent endoscopy comes here with vomiting blood hemoglobin dropped from 07/27 9. to 7 now will admit patient for supportive treatment started on PPI GI to evaluate the patient again may need endoscopy vitals are stable at this time. No active vomiting patient came to the ER Differential Diagnosis Differential Diagnoses: The differential diagnosis associated with the presentation includes Admission/Observation Consideration of admission/observation: Escalation of care including admission/observation considered Consult Healthcare Provider Management of the patient was discussed with: Hospitalist Lab Data [facility] Lab Attestation statement: I reviewed the patient's lab results. 08/08/24 03:21 08/08/24 03:21 Labs: Lab Results 08/08/24 Range/Units 03:21 WBC 12.4 H (4.8-10.8) X10*3/uL RBC 2.04 L D (4.60-5.80) X10*6/uL Hgb 7.0 L* D (14.0-18.0) g/dl Hct 20.9 L* D (42.0-52.0) % MCV 102.5 H (80.0-98.0) fL MCH 34.3 H (27.0-33.0) pg MCHC 33.5 (31.0-36.0) g/dl RDW 17.6 H (11.0-16.0) % Plt Count 140 L D (160-400) X10*3/uL MPV 9.2 L (9.4-12.4) fL Immature Gran % (Auto) 0.9 H (0.0-0.4) % Neut % (Auto) 64.3 (45-73) % Lymph % (Auto) 23.0 (20-40) % [place] % (Auto) 8.7 (2-11) % Eos % (Auto) 2.3 (0-4) % Baso % (Auto) 0.8 (0-2) % Lymph # (Auto) 2.9 (1.2-4.9) X10*3/uL [place] # (Auto) 1.1 (0.1-1.2) X10*3/uL Eos # (Auto) 0.3 (0.0-0.4) X10*3/uL Baso # (Auto) 0.1 (0.0-0.2) X10*3/uL Abs Immat Gran (auto) 0.11 H (0.00-0.03) X10*3/uL Absolute Neuts (auto) 8.0 (2.0-8.3) x10*3/uL Absolute Nucleated RBC 0.000 (0.0-0.012) X10*3/uL Nucleated RBC % (auto) 0.0 (0.0-0.2) /100WBC PT 20.0 H (10.9-12.4) SEC INR 1.7 H (0.9-1.1) Sodium 138 (135-145) mmol/L Potassium 3.5 (3.3-5.1) mmol/L Chloride 106 (96-108) mmol/L Carbon Dioxide 24 (22-29) mmol/L Anion Gap 12 (12-20) BUN 30 H (9-16) mg/dL Creatinine 0.86 (0.5-1.4) mg/dL Estim Creat Clear Calc 105.9 Estimated GFR > 60 Random Glucose 105 (60-115) mg/dL Calcium 8.1 L (8.4-10.2) mg/dL Total Bilirubin 6.5 H (0.0-1.0) mg/dL AST 96 H (5-37) U/L ALT 26 (0-40) U/L Alkaline Phosphatase 120 H (39-117) U/L Total Protein 6.3 L (6.5-8.0) g/dL Albumin 2.3 L (3.5-5.0) g/dL Blood Type A Positive Antibody Screen NEGATIVE Crossmatch See Detail Medications Administered Discontinued Medications Generic Name Dose Route Start Last Admin Trade Name Freq PRN Reason Stop Dose Admin Sodium Chloride 1,000 mls @ 999 mls/hr 08/08/24 03:05 08/08/24 05:22 Ns IV 08/08/24 04:05 Infused .Q1H1M ONE Infusion Ondansetron HCl 4 mg 08/08/24 03:05 08/08/24 03:27 Ondansetron Hcl 4 Mg/2 Ml Vial IVPUSH 08/08/24 03:06 4 mg ONCE ONE Administration Pantoprazole Sodium 80 mg 08/08/24 03:05 08/08/24 03:26 Pantoprazole Sodium 40 Mg/10 Ml Vial IVPUSH 08/08/24 03:06 80 mg ONCE ONE Administration Critical Care Time Critical Care Time Critical Care Time: Yes Total Critical Care Time: 55 Attestation: The patient was critically ill with a high probability of imminent or life threatening deterioration. I spent greater than ?60??minutes of discontinuous time evaluating the patient,delivering critical care at the bedside, discussing and evaluating pertinent data with consultants. Critical care time does not include time spent performing separately billable procedures or teaching. Total time spent performing critical care was ?55??minutes. Discharge Plan Discharge Clinical Impression: Acute upper gastrointestinal bleeding, Anemia Patient Disposition: Admitted As Inpatient Print Language: Norwegian
[2024-08-08 03:26] LABS: MANUAL DIFF FLAG NO
[2024-08-08] MEDS: Pantoprazole Sodium 40 MG/10 ML VIAL 80 MG IVPUSH (03:26)
[2024-08-08] MEDS: 0.9 % Sodium Chloride 1,000 ML 999 ML IV (03:26)
[2024-08-08] MEDS: ondansetron HCL 4 MG/2 ML VIAL IVPUSH (03:27)
[2024-08-08 03:29] LABS: Basophils Absolute Auto 0.1 X10*3/uL (0.0-0.2); Basophils Percent Auto 0.8 % (0-2); Eosinophils Absolute Auto 0.3 X10*3/uL (0.0-0.4); Eosinophils Percent Auto 2.3 % (0-4); Imm Gran Abs Auto 0.11 X10*3/uL (0.00-0.03); Imm Gran Pct Auto 0.9 % (0.0-0.4); Lymphocytes Absolute Auto 2.9 X10*3/uL (1.2-4.9); Mean Corpuscular HGB Conc 33.5 g/dl (31.0-36.0); Mean Corpuscular Hemoglobin 34.3 pg (27.0-33.0); Mean Corpuscular Volume 102.5 fL (80.0-98.0); Mean Platelet Volume 9.2 fL (9.4-12.4); Monocytes Absolute Auto 1.1 X10*3/uL (0.1-1.2); Monocytes Percent Auto 8.7 % (2-11); Neutrophils Percent Auto 64.3 % (45-73); Platelet Count 140 X10*3/uL (160-400); Red Blood Count 2.04 X10*6/uL (4.60-5.80); Red Cell Distribution Width 17.6 % (11.0-16.0); White Blood Count 12.4 X10*3/uL (4.8-10.8)
[2024-08-08 03:35] LABS: Hematocrit 20.9 % (42.0-52.0)
[2024-08-08 03:39] LABS: INTERNATIONAL NORM RATIO 1.7 (0.9-1.1)
[2024-08-08 03:44] LABS: Alanine Aminotransferase 26 U/L (0-40); Albumin Level 2.3 g/dL (3.5-5.0); Alkaline Phosphatase 120 U/L (39-117); Anion Gap 12 (12-20); Aspartate Amino Transferase 96 U/L (5-37); Bilirubin Total 6.5 mg/dL (0.0-1.0); Blood Urea Nitrogen 30 mg/dL (9-16); Calcium 8.1 mg/dL (8.4-10.2); Carbon Dioxide 24 mmol/L (22-29); Chloride 106 mmol/L (96-108); Creatinine Clr Calc Pharmacy 105.9; Estimated Glomerular Filt Rate > 60; Glucose Random 105 mg/dL (60-115); Potassium 3.5 mmol/L (3.3-5.1); Sodium 138 mmol/L (135-145); Total Protein 6.3 g/dL (6.5-8.0)
--- NOTE | 2024-08-08 07:04 | PC.NURSE ---
report to Anna MARCOS
--- NOTE | 2024-08-08 08:16 | MHC.EDTECH ---
pt repositioned and placed on heart monitor
--- NOTE | 2024-08-08 09:25 | P.HPHOSP_ITS ---
History of Present Illness Date of Service: 08/08/24 Attending physician on admission: Dayana Hanson Chief Complaint: coffee ground emesis Patient is a 59-year-old male with a past medical history significant for prostate cancer, hypertension, HLD, CHF, and alcoholic cirrhosis with ascites with a recent admission on 07/23/2024, discharged on 08/10/2024 for upper GI bleed, presented to the ED with coffee-ground emesis and weakness today. Questionable if melena. He reports that this has been persistent since discharge. He had an endoscopy on 07/27/2024 which showed portal hypertensive gastropathy and severe esophagitis with ulceration and oozing from the mucosa, hemostatic spray was applied. He continues to have lower extremity edema and generalized abdominal pain, mostly in the upper abdomen. He denies active etoh use at home, chest pain or shortness of breath. Review of Systems 2 Constitutional: Constitutional: Denies chills, Denies fever(s), Denies headache(s) and Reports weakness Eyes: Eyes: Denies change in vision ENT: Denies headache(s), Denies nasal congestion and Denies nasal discharge Cardiovascular: Cardiovascular: Denies rapid heart rate, Denies lightheadedness and Denies dyspnea Respiratory: Respiratory: Denies cough and Denies dyspnea Gastrointestinal: Gastrointestinal: Reports coffee ground emesis, Denies constipation and Reports diarrhea (dark) Genitourinary: Genitourinary: Denies dysuria Musculoskeletal: Musculoskeletal: Denies myalgias Integumentary/Breasts: Skin/Breast: Denies rash Neurologic: Denies confusion, Denies headache(s) and Reports weakness Psychiatric: Psychiatric: Denies confusion [facility] Medical History Congestive heart failure Anemia ETOH abuse Alcoholic cirrhosis PTSD (post-traumatic stress disorder) Hyponatremia Acute hyponatremia NATHANIEL (acute kidney injury) Acute metabolic encephalopathy [place] Alcoholic cirrhosis of liver with ascites Prostate cancer Depression Hyperlipidemia Hypertension Anxiety Social History Household Members: Significant Other Household Members Other:: fiancee [facility] Do you presently have visiting nurse or other home services: No Unable to assess alcohol history related to: Refusing to respond Alcohol intake: former Comment: bilateral wrist restraints for airway safety Patient Tobacco Use Status: Current everyday Tobacco user Tobacco use type: Cigarette Cigarette Packs Per Day: 2 Cigarettes Per Day: 3 Years Smoked: 25 Smoked in Last 30 Days: Yes e-Cigarette/Vaping Use: Currently Using Second Hand Smoke Exposure: No Use of substances other than those prescribed or required for medical reasons: No Substance Use Type: Marijuana Advance Directives: Yes Advance Directives on File: Yes Advance Directives Date on File: 11/11/21 Do you have a plan to hurt others: No Plan service: No Current occupational status: disabled Meds Allergies Allergy/AdvReac Type Severity Reaction Status Date / Time Fish Containing Products Allergy Severe THROAT Verified 08/08/24 03:14 SWELLING peanut [Peanut] Allergy Severe THROAT Verified 08/08/24 03:14 SWELLING Home Medications ?Medication ?Instructions ?Recorded ?Confirmed ?Last Taken ?Type melatonin 10 mg tablet 10 mg PO BEDTIME Insomnia 11/13/23 08/08/24 Unknown History mirtazapine 15 mg tablet 15 mg PO BEDTIME 11/13/23 08/08/24 02/22/24 History quetiapine 50 mg tablet (Seroquel) 50 mg PO DAILY 03/20/24 08/08/24 Unknown History spironolactone 100 mg tablet 100 mg PO DAILY 07/23/24 08/08/24 Unknown History tamsulosin 0.4 mg capsule 0.4 mg PO BEDTIME 07/23/24 08/08/24 Unknown History topiramate 200 mg tablet 200 mg PO BID 07/23/24 08/08/24 Unknown History Physical Exam 2 Vital Signs and Narrative: Vital Signs: Last Vital Signs Temp 98.5 F 08/08/24 09:03 Pulse 81 08/08/24 09:03 Resp 12 08/08/24 09:03 BP 107/55 L 08/08/24 09:03 Pulse Ox 100 08/08/24 08:31 O2 Del Method Room Air 08/08/24 08:31 BMI result Body Mass Index 29.4 General: AOx3, no acute distress HEENT: moist mucus membranes, +scleral icterus Resp: CTA bilaterally CVS: RRR, +murmur GI: +BS, generalized tenderness, more in upper abd, distended hard abd Skin: Warm, dry, appears pale/slightly jaundice Extremities: 2-3+ pitting edema Psych: Appropriate affect Const: General: No confusion Orientation/consciousness: No confusion Neuro: General: No confusion Results Labs 08/08/24 03:21 08/08/24 03:21 Labs: Laboratory Results - last 24 hr 08/08/24 03:21 MCV 102.5 H MCH 34.3 H MCHC 33.5 RDW 17.6 H Plt Count 140 L D MPV 9.2 L Immature Gran % (Auto) 0.9 H Neut % (Auto) 64.3 Lymph % (Auto) 23.0 [place] % (Auto) 8.7 Eos % (Auto) 2.3 Baso % (Auto) 0.8 Lymph # (Auto) 2.9 [place] # (Auto) 1.1 Eos # (Auto) 0.3 Baso # (Auto) 0.1 Abs Immat Gran (auto) 0.11 H Absolute Neuts (auto) 8.0 Absolute Nucleated RBC 0.000 Nucleated RBC % (auto) 0.0 PT 20.0 H INR 1.7 H Anion Gap 12 Estim Creat Clear Calc 105.9 Estimated GFR > 60 Random Glucose 105 Calcium 8.1 L Total Bilirubin 6.5 H AST 96 H ALT 26 Alkaline Phosphatase 120 H Total Protein 6.3 L Albumin 2.3 L Blood Type A Positive Antibody Screen NEGATIVE Crossmatch See Detail Assessment and Plan (1) Acute upper gastrointestinal bleeding: Status: Acute (2) Alcoholic cirrhosis of liver with ascites: Status: Acute (3) Hematemesis: Status: Acute Plan Patient is a 59-year-old male with a past medical history significant for BPH, GERD, hypertension, HLD, CHF, and alcoholic cirrhosis with ascites with a recent admission on 07/23/2024, discharged on 08/10/2024 for upper GI bleed, presented to the ED with coffee-ground emesis and weakness today. Endoscopy on 07/27/2024 which showed portal hypertensive gastropathy and severe esophagitis with ulceration and oozing from the mucosa, hemostatic spray was applied. H+H low in ED, 7.0/20.9, receiving 2 U PRBC now. UGI bleed - recurrent, recent admission with stabilization - H+H 7.0/20.9 - plan per GI, EGD later today - NPO until after EGD - receiving 2U PRBC in ED - pantoprazole drip - continue sucralfate - K slightly low, 3.5, restart potassium as pt has not been taking at home - monitor CBC and BMP HTN - hold BP meds, BP low due to low H+H, no sepsis - no IVF due to significant edema HLD - no meds decompensated etoh cirrhosis - recent paracentesis 07/24/24 - no SBP but started on prophy at last admisssion - continue lasix and spironolactone when BP increases - hold lactulose due to diarrhea - not taking cipro for prophy at home, will restart if GI recommends full code VTE prophy: pneumoboots, due to bleed medication contraindicated Pt with recurrence of UGI bleed complicated by recent admission with concurrent SBP, requiring repeat EGD, blood transfusion and monitoring for at least 2 midnights stay. Quality Stroke Does the patient have a stroke diagnosis?: No VTE Prior VTE?: No VTE Risk Level:: Medical - moderate - high VTE Device Contraindication: N/A - Device Ordered VTE Drug Contraindication: Treatment Not Indicated
--- NOTE | 2024-08-08 09:33 | MHC.CM.ED ---
Received notification from [facility] that patient is active with their agency. Return referral made in [facility] so they can follow for d/c needs.
[2024-08-08] MEDS: Pantoprazole Sodium 80 MG in 0.9 % Sodium Chloride 80 ML 10 MG IV ×2 (11:01→21:46)
--- NOTE | 2024-08-08 11:10 | PM.GICN ---
History of Present Illness Data of Consult Service Date: 08/08/24 Requesting physician: Bere Jennings Primary Care Provider: Unknown Physician HPI Reason for consult: UGI bleeding 59-year-old male with hx of prostate cancer, hypertension, HLD, CHF, and alcoholic cirrhosis with ascites presented to the ED with coffee-ground emesis and weakness today Pt was recently hospitalized at [facility] 07/23/2024 to 07/31/2024 for upper GI bleed. Pt reports he has been having coffee groun emesis and dark stools since he was discharged Pt had an endoscopy on 07/27/2024 which showed portal hypertensive gastropathy and severe esophagitis with ulceration and oozing from the mucosa, hemostatic spray was applied. He continues to have lower extremity edema and generalized abdominal pain, mostly in the upper abdomen. Pt states he was using alcohol heavily since the age of 25-his favorite Flavors were alcohol vodka and beers. Pt has been through Rehab treatment in the past. Pt reports last ETOH intake was 2 weeks ago Review of Systems Review of Systems: Yes all other systems are reviewed and are negative PMFSH Past Medical History Medical History Alcoholic hepatitis Thrombocytopenia Nausea & vomiting Hyponatremia Acute hypokalemia Alcohol dependence Ascites Congestive heart failure Anemia ETOH abuse Alcoholic cirrhosis PTSD (post-traumatic stress disorder) Hyponatremia Acute hyponatremia NATHANIEL (acute kidney injury) Acute metabolic encephalopathy Falls Alcoholic cirrhosis of liver with ascites Prostate cancer Depression Hyperlipidemia Hypertension Anxiety Social History Social History Household Members: Significant Other Household Members Other:: fiancee Housing: Condominium Do you presently have visiting nurse or other home services: No (numerical control lathe operator's are going to be coming to the house.) Unable to assess alcohol history related to: Refusing to respond Alcohol intake: former Comment: bilateral wrist restraints for airway safety Patient Tobacco Use Status: Current everyday Tobacco user Tobacco use type: Cigarette Cigarette Packs Per Day: 3 Cigarettes Per Day: 3 Years Smoked: 20 Smoked in Last 30 Days: Yes e-Cigarette/Vaping Use: Never Used Patient Interested in Nicotine Replacement: No Patient Given Instructions on How to Stop Smoking: No Second Hand Smoke Exposure: No Use of substances other than those prescribed or required for medical reasons: No Substance Use Type: Marijuana Substance Use Type Other:: edible gummies Currently Displaying Signs/Symptoms of Drug Intoxication Withdrawal: No Have you been hit, kicked, punched, or otherwise hurt by someone within the past year? If so, by whom?: No Do you feel safe in your current relationship?: Yes Is there a partner from a previous relationship who is making you feel unsafe now?: No Are you made to feel afraid or neglected: No Advance Directives: Yes Advance Directives on File: Yes Advance Directives Date on File: 11/11/21 Do you have a plan to hurt others: No Plan Recently lost weight without trying: No How much weight loss: Not applicable Eating poorly because of decreased appetite: No Nutrition screen score: 0 Nutrition Risks: No Nutritional Risk Poor oral hygiene: No service: No Current occupational status: disabled [facility] Allergies Allergy/AdvReac Type Severity Reaction Status Date / Time Fish Containing Products Allergy Severe THROAT Verified 08/12/24 12:06 SWELLING peanut [Peanut] Allergy Severe THROAT Verified 08/12/24 12:06 SWELLING Active Medications: Current Medications Acetaminophen (Acetaminophen 325 Mg Tablet) 650 mg PO Q6H PRN PRN Reason: Pain, Mild (Pain Scale 1-3), fever or headache Calcium Carbonate (Calcium Carbonate 750 Mg Tab.Chew) 750 mg PO Q4H PRN PRN Reason: Heartburn Pantoprazole Sodium 80 mg/ (Sodium Chloride) 100 mls @ 10 mls/hr IV .Q10H REPLACED BY [facility] Last Admin: 08/08/24 11:01 Dose: 8 mg/hr, 10 mls/hr Magnesium Hydroxide (Milk Of Magnesia 30 Ml Oral.Susp) 30 ml PO DAILY PRN PRN Reason: Constipation Magnesium Oxide (Magnesium Oxide 400 Mg Tablet) 200 mg PO DAILY REPLACED BY [facility] Last Admin: 08/08/24 10:50 Dose: Not Given Melatonin (Melatonin 3 Mg Tablet) 6 mg PO BEDTIME PRN PRN Reason: Insomnia Mirtazapine (Mirtazapine 15 Mg Tablet) 15 mg PO BEDTIME REPLACED BY [facility] Ondansetron HCl (Ondansetron Hcl 4 Mg/2 Ml Vial) 4 mg IVPUSH Q8H PRN PRN Reason: Nausea and Vomiting Potassium Chloride (Potassium Chloride Er 20 Meq Tab.Er.Prt) 20 meq PO DAILY REPLACED BY [facility] Quetiapine Fumarate (Quetiapine Fumarate 50 Mg Tablet) 50 mg PO DAILY REPLACED BY [facility] Sodium Chloride (0.9 % Sodium Chloride Flush 3 Ml Syringe) 3 ml IVFLUSH QSHIFT REPLACED BY [facility] Sucralfate (Sucralfate Oral Suspension 1 Gm/10 Ml Oral.Susp) 1 gm PO QIDACHS REPLACED BY [facility] Last Admin: 08/08/24 11:07 Dose: Not Given Tamsulosin HCl (Tamsulosin Hcl 0.4 Mg Capsule) 0.4 mg PO BEDTIME REPLACED BY [facility] Topiramate (Topiramate 100 Mg Tablet) 200 mg PO BID REPLACED BY [facility] Home Medications ?Medication ?Instructions ?Recorded ?Confirmed ?Last Taken ?Type melatonin 10 mg tablet 10 mg PO BEDTIME Insomnia 11/13/23 08/12/24 08/11/24 History mirtazapine 15 mg tablet 15 mg PO BEDTIME 11/13/23 08/12/24 08/11/24 History quetiapine 50 mg tablet (Seroquel) 50 mg PO DAILY 03/20/24 08/12/24 08/11/24 History tamsulosin 0.4 mg capsule 0.4 mg PO BEDTIME 07/23/24 08/12/24 08/11/24 History topiramate 200 mg tablet 200 mg PO BID 07/23/24 08/12/24 08/11/24 History Physical Exam Vital Signs: Vital Signs: Last Vital Signs Temp 98.1 F 08/08/24 10:48 Pulse 74 08/08/24 10:48 Resp 12 08/08/24 10:48 BP 100/58 L 08/08/24 10:48 Pulse Ox 100 08/08/24 10:00 O2 Del Method Room Air 08/08/24 10:00 BMI result Body Mass Index 29.4 Const: General: no acute distress and ill appearing Nutritional Appearance: overweight Orientation/consciousness: patient oriented x3 HEENT: Head: Yes normal to inspection Ears: hearing grossly normal bilaterally Eyes: Sclerae: sclerae normal Pupils: Equal, round and reactive pupils present Neck: Neck: Yes normal visual inspection Chest: Chest palpation & inspection: normal inspection of the chest Resp: Effort & Inspection: normal respiratory effort Auscultation: clear to auscultation bilaterally Cardio: Palpation: normal PMI Rate: regular rate Rhythm: regular rhythm Heart sounds: S1 normal heart sound present, S2 normal heart sound present and no murmurs GI: Inspection: Yes distended (due to ascites) Palpation (GI): Soft to palpation and nontender Auscultation: normal bowel sounds Rectal Exam - Male: Yes deferred Skin: General skin exam: no rashes or lesions noted Neuro: General: patient oriented x3, gait normal and moves all extremities Cranial nerves: Yes Equal, round and reactive pupils present Extrem: General: Yes pedal edema (trace pedal edema) Psych: Appearance: grossly normal Mental Status: mental status grossly normal Results Labs 08/11/24 06:33 08/11/24 06:33 Labs: Short CBC 08/08/24 Range/Units 03:21 WBC 12.4 H (4.8-10.8) X10*3/uL Hgb 7.0 L* D (14.0-18.0) g/dl Hct 20.9 L* D (42.0-52.0) % Plt Count 140 L D (160-400) X10*3/uL BMP 08/08/24 03:21 Sodium 138 Potassium 3.5 Chloride 106 Carbon Dioxide 24 BUN 30 H Creatinine 0.86 Calcium 8.1 L Liver Function 08/08/24 Range/Units 03:21 Total Bilirubin 6.5 H (0.0-1.0) mg/dL AST 96 H (5-37) U/L ALT 26 (0-40) U/L Alkaline Phosphatase 120 H (39-117) U/L Albumin 2.3 L (3.5-5.0) g/dL Assessment and Plan (1) Hematemesis: Status: Acute (2) Acute upper gastrointestinal bleeding: Status: Acute (3) Alcoholic cirrhosis of liver with ascites: Status: Acute Plan 59-year-old male with hx of prostate cancer, hypertension, HLD, CHF, and alcoholic cirrhosis with ascites presented to the ED with coffee-ground emesis and weakness today Pt was recently hospitalized at [facility] 07/23/2024 to 07/31/2024 for upper GI bleed. Pt reports he has been having hematemesis and melena since he was discharged a week ago. He had an endoscopy on 07/27/2024 which showed portal hypertensive gastropathy and severe esophagitis with ulceration and oozing from the mucosa, hemostatic spray was applied. RECOMMENDATIONS: 1. Agree with IV PPI, and blood transfusion 2. Correct anemia and electrolyte imbalance. 3. Pt scheduled for an urgent EGD today for further assessment - procedure and potential complications reviewed with the patient Procedures Date of Service Date of Service: 08/14/24
[2024-08-08 11:31] LABS: Hematocrit 25.6 % (42.0-52.0); Hemoglobin 8.7 g/dl (14.0-18.0); Mean Platelet Volume 9.1 fL (9.4-12.4); Platelet Count 125 X10*3/uL (160-400); Red Blood Count 2.64 X10*6/uL (4.60-5.80); Red Cell Distribution Width 19.8 % (11.0-16.0); White Blood Count 11.5 X10*3/uL (4.8-10.8)
--- NOTE | 2024-08-08 12:55 | PC.NURSE ---
Report given to Luke MARCOS in short stay.
--- NOTE | 2024-08-08 14:10 | HO.ANESPROP2 ---
HPI - Anesthesia Eval Consult details Narrative: 59 yo male patient with GI bleed. For EGD PMFSH Active Problems Active Problems: All Active Problems Anemia (Acute) Acute upper gastrointestinal bleeding (Acute) Hematemesis (Acute) Alcoholic hepatitis (Acute) Abdominal pain (Acute) Thrombocytopenia (Acute) Nausea & vomiting (Acute) Hyponatremia (Acute) Acute hypokalemia (Acute) Dysphagia (Acute) Acute respiratory failure with hypoxia (Acute) Septic shock (Acute) Bladder neck obstruction (Acute) History of prostate cancer (Acute) Acidosis, lactic (Acute) Hypokalemia (Acute) Esophageal varices (Acute) Anemia (Acute) Acute upper gastrointestinal bleeding (Acute) Acute lactic acidosis (Acute) Hypokalemia (Acute) Esophageal varices (Acute) Portal hypertensive gastropathy (Acute) Erosive esophagitis (Acute) Alcohol dependence (Acute) Anemia (Acute) Acute hyponatremia (Acute) Acute GI bleeding (Acute) Ascites (Acute) Encephalopathy (Acute) NATHANIEL (acute kidney injury) (Acute) Anasarca (Acute) History of radiation therapy (Acute) Fatty liver (Acute) Hyponatremia (Acute) Alcoholic cirrhosis of liver with ascites (Acute) Hypertension (Acute) Hyperlipidemia (Acute) Depression (Acute) Anxiety (Acute) Past Medical History Medical History Congestive heart failure Anemia ETOH abuse Alcoholic cirrhosis PTSD (post-traumatic stress disorder) Hyponatremia Acute hyponatremia NATHANIEL (acute kidney injury) Acute metabolic encephalopathy Falls Alcoholic cirrhosis of liver with ascites Prostate cancer Depression Hyperlipidemia Hypertension Anxiety Family History Family history of problems with anesthesia: No Surgical History History of Problems with Anesthesia: No Social History Social History Household Members: Significant Other Household Members Other:: fiancee Housing: Condominium Do you presently have visiting nurse or other home services: No Unable to assess alcohol history related to: Refusing to respond Alcohol intake: former Comment: bilateral wrist restraints for airway safety Patient Tobacco Use Status: Current everyday Tobacco user Tobacco use type: Cigarette Cigarette Packs Per Day: 3 Cigarettes Per Day: 60.0 Years Smoked: 25 Smoked in Last 30 Days: Yes e-Cigarette/Vaping Use: Currently Using Second Hand Smoke Exposure: No Use of substances other than those prescribed or required for medical reasons: No Substance Use Type: Marijuana Advance Directives: Yes Advance Directives on File: Yes Advance Directives Date on File: 11/11/21 Do you have a plan to hurt others: No Plan service: No Current occupational status: disabled Meds Allergies Allergy/AdvReac Type Severity Reaction Status Date / Time Fish Containing Products Allergy Severe THROAT Verified 08/08/24 03:14 SWELLING peanut [Peanut] Allergy Severe THROAT Verified 08/08/24 03:14 SWELLING Active Medications: Current Medications Acetaminophen (Acetaminophen 325 Mg Tablet) 650 mg PO Q6H PRN PRN Reason: Pain, Mild (Pain Scale 1-3), fever or headache Calcium Carbonate (Calcium Carbonate 750 Mg Tab.Chew) 750 mg PO Q4H PRN PRN Reason: Heartburn Pantoprazole Sodium 80 mg/ (Sodium Chloride) 100 mls @ 10 mls/hr IV .Q10H [facility] Last Admin: 08/08/24 11:01 Dose: 8 mg/hr, 10 mls/hr Magnesium Hydroxide (Milk Of Magnesia 30 Ml Oral.Susp) 30 ml PO DAILY PRN PRN Reason: Constipation Magnesium Oxide (Magnesium Oxide 400 Mg Tablet) 200 mg PO DAILY [facility] Last Admin: 08/08/24 10:50 Dose: Not Given Melatonin (Melatonin 3 Mg Tablet) 6 mg PO BEDTIME PRN PRN Reason: Insomnia Mirtazapine (Mirtazapine 15 Mg Tablet) 15 mg PO BEDTIME [facility] Ondansetron HCl (Ondansetron Hcl 4 Mg/2 Ml Vial) 4 mg IVPUSH Q8H PRN PRN Reason: Nausea and Vomiting Potassium Chloride (Potassium Chloride Er 20 Meq Tab.Er.Prt) 20 meq PO DAILY [facility] Quetiapine Fumarate (Quetiapine Fumarate 50 Mg Tablet) 50 mg PO DAILY [facility] Sodium Chloride (0.9 % Sodium Chloride Flush 3 Ml Syringe) 3 ml IVFLUSH QSHIFT [facility] Sucralfate (Sucralfate Oral Suspension 1 Gm/10 Ml Oral.Susp) 1 gm PO QIDACHS [facility] Last Admin: 08/08/24 11:07 Dose: Not Given Tamsulosin HCl (Tamsulosin Hcl 0.4 Mg Capsule) 0.4 mg PO BEDTIME [facility] Topiramate (Topiramate 100 Mg Tablet) 200 mg PO BID [facility] Home Medications ?Medication ?Instructions ?Recorded ?Confirmed ?Last Taken ?Type melatonin 10 mg tablet 10 mg PO BEDTIME Insomnia 11/13/23 08/08/24 Unknown History mirtazapine 15 mg tablet 15 mg PO BEDTIME 11/13/23 08/08/24 02/22/24 History quetiapine 50 mg tablet (Seroquel) 50 mg PO DAILY 03/20/24 08/08/24 Unknown History spironolactone 100 mg tablet 100 mg PO DAILY 07/23/24 08/08/24 Unknown History tamsulosin 0.4 mg capsule 0.4 mg PO BEDTIME 07/23/24 08/08/24 Unknown History topiramate 200 mg tablet 200 mg PO BID 07/23/24 08/08/24 Unknown History Exam Height,Weight and Vital Signs: Height 5 ft 10 in Weight 93 kg Last Vital Signs Temp 98.4 F 08/08/24 13:25 Pulse 84 08/08/24 13:25 Resp 14 08/08/24 13:25 BP 114/56 L 08/08/24 13:25 Pulse Ox 100 08/08/24 13:25 O2 Del Method Room Air 08/08/24 13:25 Pertinent Lab Results Pertinent Lab Results: Laboratory Tests 08/08/24 08/08/24 03:21 11:25 WBC 12.4 H 11.5 H RBC 2.04 L D 2.64 L D Hgb 7.0 L* D 8.7 L D Hct 20.9 L* D 25.6 L D MCV 102.5 H 97.0 D MCH 34.3 H 33.0 MCHC 33.5 34.0 RDW 17.6 H 19.8 H Plt Count 140 L D 125 L MPV 9.2 L 9.1 L Immature Gran % (Auto) 0.9 H Neut % (Auto) 64.3 Lymph % (Auto) 23.0 Cobb % (Auto) 8.7 Eos % (Auto) 2.3 Baso % (Auto) 0.8 Lymph # (Auto) 2.9 Cobb # (Auto) 1.1 Eos # (Auto) 0.3 Baso # (Auto) 0.1 Abs Immat Gran (auto) 0.11 H Absolute Neuts (auto) 8.0 Absolute Nucleated RBC 0.000 0.000 Nucleated RBC % (auto) 0.0 0.0 PT 20.0 H INR 1.7 H Sodium 138 Potassium 3.5 Chloride 106 Carbon Dioxide 24 Anion Gap 12 BUN 30 H Creatinine 0.86 Estim Creat Clear Calc 105.9 Estimated GFR > 60 Random Glucose 105 Calcium 8.1 L Total Bilirubin 6.5 H AST 96 H ALT 26 Alkaline Phosphatase 120 H Total Protein 6.3 L Albumin 2.3 L Blood Type A Positive Antibody Screen NEGATIVE Crossmatch See Detail Airway Mallampati Class: II TM Dist: >3cm Neck ROM: Full Loose/Missing/Broken Teeth: Yes (Broken tooth top right back. Missing teeth ) Heart: RRR Lungs: Occasional wheezing Assessment and Plan Final Anesthetic Review Family History of Problems with Anesthesia: No History of Problems with Anesthesia: No NPO: Yes ASA Class: III and Emergency Final Preanesthetic Review: No Changes in Pt Med Stat, Meds/Allgs Chart Reviewed, Consent Obtained/Reviewed and Anes Risks/Benef Reviewed Patient Risk: Intermediate Procedure Risk: Low Assessment/Block/Sedation in SS: Assess/Block/Sedation-SS Anesthetic Plan Anesthetic Plan: GA Disposition: Standard PACU and Inp. Admit - Standard Bed
--- NOTE | 2024-08-08 14:47 | W.PM.OPN ---
Operative Note Operative Note Date of Service: 08/08/24 Narrative: FLEXIBLE TRANSORAL UPPER GASTROINTESTINAL ENDOSCOPY WITH HEMOSPRAY Pre-op diagnosis: Recurrent UGI bleeding, severe anemia Post-op diagnosis: Severe erosive esophagitis, portal hypertensive gastropathy Endoscopist:? Abhilash Brito MD Anesthesia:?GA (Dr Tuttle) UPPER ENDOSCOPY Consent: Indications for the procedure and potential complications of bleeding, perforation, reaction to medications and missed diagnosis were discussed with the patient and informed consent was obtained. Instrument: Olympus GIF H 190 mid size upper endoscope Monitoring: Vital signs and clinical assessment, continuous EKG monitoring, Pulse oximetry, Carbon Dioxide monitoring and blood pressure monitoring were done throughout the procedure. Procedure: The patient was placed in the left lateral decubitis position and pre-procedure medications were administered and a bite block was placed. The endoscope was inserted into the mouth and advanced under direct vision to the third part of duodenum. A careful inspection was made as the upper endoscope was withdrawn including a retroflexed examination of the proximal stomach; Findings and interventions are described below. Findings: Larynx: ET tube in place Esophagus: GE junction at 36 cms, hiatal hernia 36 to 40 cms. Severe erosive esophagitis with exudate from 24 to 36 cms with slow oozing from GE junction - treated with hemospray. A hemoclip noted at 34 cms (Placed during a previous EGD in 03/2024) Stomach: Friable gastric mucosa with mosaic pattern consistent with moderate portal hypertensive gastropathy. Slow oozing from portal gastropathy - treated with hemospray. Grade 3 flap valve on retroflexed examination of the cardia. Duodenum: Congestive duodenopathy in the bulb and normal descending duodenum Intervention: Hemospray as noted above Impression and Post Procedure Diagnosis: Endoscopy Findings: ESOPHAGUS: Erosive esophagitis with slow oozing from the GE junction - treated with hemospray STOMACH: Moderate portal hypertensive gastropathy with slow oozing localized to the lesser curve in the proximal stomach - treated with hemospray. Plan: 1. Continue IV PPI x 48 hrs and moniter CBC twice daily x 24 hrs. 2. Clear liquid diet in the am and advance diet as tolerated. 3. Carafate 10 ml four times daily Above findings were reviewed with the patient.
[2024-08-08] MEDS: Sucralfate Oral Suspension 1 GM/10 ML ORAL.SUSP PO ×2 (17:39→20:40)
[2024-08-08] MEDS: 0.9 % Sodium Chloride Flush 3 ML SYRINGE IVFLUSH (17:40)
[2024-08-08] MEDS: Lactated Ringers 1,000 ML 50 ML IVCONT (17:47)
[2024-08-08 20:13] LABS: Hematocrit 24.8 % (42.0-52.0); Hemoglobin 8.5 g/dl (14.0-18.0); Mean Corpuscular HGB Conc 34.3 g/dl (31.0-36.0); Mean Corpuscular Hemoglobin 33.2 pg (27.0-33.0); Mean Corpuscular Volume 96.9 fL (80.0-98.0); Mean Platelet Volume 9.1 fL (9.4-12.4); Platelet Count 111 X10*3/uL (160-400); Red Blood Count 2.56 X10*6/uL (4.60-5.80); Red Cell Distribution Width 20.5 % (11.0-16.0); White Blood Count 10.9 X10*3/uL (4.8-10.8)
[2024-08-08] MEDS: Topiramate 100 MG TABLET 200 MG PO (20:40)
[2024-08-08] MEDS: Tamsulosin HCL 0.4 MG CAPSULE PO (20:40)
[2024-08-08] MEDS: Mirtazapine 15 MG TABLET PO (20:40)
[2024-08-08] MEDS: Potassium Chloride ER 20 MEQ TAB.ER.PRT PO (20:41)
[2024-08-09 03:11] VITALS: BP 105/57; PULSE 70; RESP 18; TEMP 36.4; O2SAT 100
[2024-08-09] MEDS: Pantoprazole Sodium 80 MG in 0.9 % Sodium Chloride 80 ML 10 MG IV ×2 (06:18→16:46)
[2024-08-09 06:34] LABS: MANUAL DIFF FLAG NO
[2024-08-09 06:56] LABS: Anion Gap 10 (12-20); Basophils Absolute Auto 0.1 X10*3/uL (0.0-0.2); Basophils Percent Auto 0.6 % (0-2); Blood Urea Nitrogen 25 mg/dL (9-16); Carbon Dioxide 22 mmol/L (22-29); Chloride 104 mmol/L (96-108); Creatinine Clr Calc Pharmacy 113.9; Eosinophils Absolute Auto 0.2 X10*3/uL (0.0-0.4); Eosinophils Percent Auto 2.1 % (0-4); Estimated Glomerular Filt Rate > 60; Glucose Random 104 mg/dL (60-115); Hematocrit 23.3 % (42.0-52.0); Imm Gran Abs Auto 0.06 X10*3/uL (0.00-0.03); Imm Gran Pct Auto 0.7 % (0.0-0.4); Lymphocytes Absolute Auto 1.3 X10*3/uL (1.2-4.9); Lymphocytes Percent Auto 16.7 % (20-40); Mean Corpuscular HGB Conc 34.3 g/dl (31.0-36.0); Mean Corpuscular Hemoglobin 33.8 pg (27.0-33.0); Mean Corpuscular Volume 98.3 fL (80.0-98.0); Mean Platelet Volume 9.3 fL (9.4-12.4); Monocytes Absolute Auto 0.5 X10*3/uL (0.1-1.2); Monocytes Percent Auto 6.1 % (2-11); Neutrophils Absolute Auto 5.9 x10*3/uL (2.0-8.3); Neutrophils Percent Auto 73.8 % (45-73); Platelet Count 107 X10*3/uL (160-400); Red Blood Count 2.37 X10*6/uL (4.60-5.80); Red Cell Distribution Width 20.4 % (11.0-16.0); Sodium 133 mmol/L (135-145)
--- NOTE | 2024-08-09 07:20 | PHA.MEDREC ---
Pharmacy Consult ? Medication Reconciliation Pharmacy has completed the medication reconciliation, tried to speak to patient at bedside - he was very unsure of what he was taking but said nothing has changed from his last visit. Asked him about the antibiotic and he said he didn't know but his finace would be in later and would know better. Provider Campbell ended up speaking to patient and finace who confirmed meds with provider. Spoke to provider, she was told differently than me and said he fills at [facility] in [place]. Called [facility] and they confirmed nothing had been filled since 02/2024, provider confirmed meds that I was unable to confirm.
[2024-08-09 08:00] VITALS: BP 104/57; PULSE 76; RESP 18; TEMP 36.3; O2SAT 100
[2024-08-09] MEDS: ondansetron HCL 4 MG/2 ML VIAL IVPUSH ×2 (08:24→20:44)
[2024-08-09] MEDS: Magnesium Oxide 400 MG TABLET 200 MG PO (08:24)
[2024-08-09] MEDS: QUEtiapine Fumarate 50 MG TABLET PO (08:24)
[2024-08-09] MEDS: 0.9 % Sodium Chloride Flush 3 ML SYRINGE IVFLUSH ×3 (08:24→20:44)
[2024-08-09] MEDS: Potassium Chloride ER 20 MEQ TAB.ER.PRT PO (08:24)
[2024-08-09] MEDS: Topiramate 100 MG TABLET 200 MG PO (08:24)
--- NOTE | 2024-08-09 09:07 | MHC.RECOVRN ---
AUDIT-C Brief Intervention Pt had positive screen for unhealthy alcohol use on admission. Attempted to meet with pt to discuss alcohol use and offer resources, pt declined.
--- NOTE | 2024-08-09 09:43 | MHC.CM.PN ---
IMM 08/09. Pt lives at home with his fiance who will transport him home at discharge. Pt uses a cane and a walker. HCP on file and verified. PCP: Dr. Fransisco Garrett
--- NOTE | 2024-08-09 10:30 | HO.POSTANES ---
Post Anesthesia Evaluation Post Anesthesia Evaluation Date of Service: 08/08/24 Vital Signs: Vital Signs Temp Pulse Resp BP Pulse Ox O2 Del Method 08/09/24 08:00 97.3 F 76 18 104/57 L 100 Room Air 08/09/24 03:11 97.5 F 70 18 105/57 L 100 Room Air 08/08/24 23:30 97.8 F 74 18 109/58 L 100 Room Air Anesthesia: General Endotracheal-GETA Mental Status: Awake Pain Control: Satisfactory Nausea/Vomiting: None Hydration: Adequate Anesthesia-Related Issues: No Anes. Related Issues
--- NOTE | 2024-08-09 11:10 | HO.PM.IMPN ---
Subjective Subjective Date of Service: 08/09/24 Interval History: Feeling hungry, no recurrent episode of coffee-ground emesis, denies abdominal pain, no nausea no vomiting no diarrhea no lightheadedness or dizziness admits to have chronic leg edema and abdominal distention, no recent worsening. Review of Systems All other system reviewed and are negative Physical Exam Vital Signs: Vital Signs: Last Vital Signs Temp 97.3 F 08/09/24 08:00 Pulse 76 08/09/24 08:00 Resp 18 08/09/24 08:00 BP 104/57 L 08/09/24 08:00 Pulse Ox 100 08/09/24 08:00 O2 Del Method Room Air 08/09/24 08:00 O2 Flow Rate 2 08/08/24 15:32 BMI result Body Mass Index 29.4 Gen: in no acute distress HEENT: sclera icteric, moist mucus membranes Neck: supple Lungs: clear to auscultation bilaterally Heart: regular rate and rhythm, no murmurs Abd: Distended abdomen nontender to palpation Ext: bilateral pitting edema of legs Skin: warm/well-perfused, jaundiced Neuro: alert and oriented x3, no focal findings, no asterixis Psych: appropriate affect Objective Data Active Medications Acetaminophen (Acetaminophen 325 Mg Tablet) 650 mg PO Q6H PRN PRN Reason: Pain, Mild (Pain Scale 1-3), fever or headache Calcium Carbonate (Calcium Carbonate 750 Mg Tab.Chew) 750 mg PO Q4H PRN PRN Reason: Heartburn Furosemide (Furosemide 20 Mg Tablet) 20 mg PO DAILY [facility]; Protocol Pantoprazole Sodium 80 mg/ (Sodium Chloride) 100 mls @ 10 mls/hr IV .Q10H [facility] Last Admin: 08/09/24 06:18 Dose: 8 mg/hr, 10 mls/hr Documented By: MERCEDEZ Lactulose (Lactulose 20 Gm/30 Ml Solution) 20 gm PO BID [facility] Magnesium Hydroxide (Milk Of Magnesia 30 Ml Oral.Susp) 30 ml PO DAILY PRN PRN Reason: Constipation Magnesium Oxide (Magnesium Oxide 400 Mg Tablet) 200 mg PO DAILY [facility] Last Admin: 08/09/24 08:24 Dose: 200 mg Documented By: FIDE Melatonin (Melatonin 3 Mg Tablet) 6 mg PO BEDTIME PRN PRN Reason: Insomnia Mirtazapine (Mirtazapine 15 Mg Tablet) 15 mg PO BEDTIME [facility] Last Admin: 08/08/24 20:40 Dose: 15 mg Documented By: MERCEDEZ Ondansetron HCl (Ondansetron Hcl 4 Mg/2 Ml Vial) 4 mg IVPUSH Q8H PRN PRN Reason: Nausea and Vomiting Last Admin: 08/09/24 08:24 Dose: 4 mg Documented By: FIDE Potassium Chloride (Potassium Chloride Er 20 Meq Tab.Er.Prt) 20 meq PO DAILY [facility] Last Admin: 08/09/24 08:24 Dose: 20 meq Documented By: FIDE Quetiapine Fumarate (Quetiapine Fumarate 50 Mg Tablet) 50 mg PO DAILY [facility] Last Admin: 08/09/24 08:24 Dose: 50 mg Documented By: FIDE Sodium Chloride (0.9 % Sodium Chloride Flush 3 Ml Syringe) 3 ml IVFLUSH QSHIFT [facility] Last Admin: 08/09/24 08:24 Dose: 3 ml Documented By: FIDE Sucralfate (Sucralfate Oral Suspension 1 Gm/10 Ml Oral.Susp) 1 gm PO QIDACHS [facility] Last Admin: 08/09/24 08:25 Dose: Not Given Documented By: FIDE Non-Admin Reason: Patient Refused Tamsulosin HCl (Tamsulosin Hcl 0.4 Mg Capsule) 0.4 mg PO BEDTIME [facility] Last Admin: 08/08/24 20:40 Dose: 0.4 mg Documented By: MERCEDEZ Topiramate (Topiramate 100 Mg Tablet) 200 mg PO BID [facility] Last Admin: 08/09/24 08:24 Dose: 200 mg Documented By: FIDE Labs 08/09/24 05:11 08/09/24 05:11 Labs: Laboratory Results - last 24 hr 08/08/24 08/08/24 08/09/24 11:25 20:06 05:11 MCV 97.0 D 96.9 98.3 H MCH 33.0 33.2 H 33.8 H MCHC 34.0 34.3 34.3 RDW 19.8 H 20.5 H 20.4 H Plt Count 125 L 111 L 107 L MPV 9.1 L 9.1 L 9.3 L Immature Gran % (Auto) 0.7 H Neut % (Auto) 73.8 H Lymph % (Auto) 16.7 L [place] % (Auto) 6.1 Eos % (Auto) 2.1 Baso % (Auto) 0.6 Lymph # (Auto) 1.3 [place] # (Auto) 0.5 Eos # (Auto) 0.2 Baso # (Auto) 0.1 Abs Immat Gran (auto) 0.06 H Absolute Neuts (auto) 5.9 Absolute Nucleated RBC 0.000 0.000 0.000 Nucleated RBC % (auto) 0.0 0.0 0.0 Anion Gap 10 L Estim Creat Clear Calc 113.9 Estimated GFR > 60 Random Glucose 104 Calcium 8.0 L Assessment and Plan (1) Acute upper gastrointestinal bleeding: Status: Acute (2) Hematemesis: Status: Acute Plan Patient is a 59-year-old male with a past medical history significant for BPH, GERD, hypertension, HLD, CHF, and alcoholic cirrhosis with ascites with a recent admission on 07/23/2024, discharged on 08/10/2024 for upper GI bleed, presented to the ED with coffee-ground emesis and weakness today. Endoscopy on 07/27/2024 which showed portal hypertensive gastropathy and severe esophagitis with ulceration and oozing from the mucosa, hemostatic spray was applied. H+H low in ED, 7.0/20.9, receiving 2 U PRBC now. UGI bleed - recurrent, recent admission with stabilization No recurrent GI bleed, feels hungry, chronic nausea, no worsening. on admission H+H 7.0/20.9 received 2 units of packed RBC hematocrit improved currently 8/23.3 Underwent upper endoscopy by Dr. Brito that showed friable gastric mucosa consistent with moderate portal hypertensive gastropathy, slow oozing from gastropathy treated with hemo spray, grade 3 flap valve, congestive duodenopathy in the bulb and normal descending duodenum hemo spray applied Diagnosis erosive esophagitis with slow oozing from GE junction, moderate portal hypertensive gastropathy with slow oozing localized to lesser curvature in the proximal stomach Will continue IV Protonix drip times 48 hours, continue sucralfate , gradually advance diet as tolerated As per patient loss alcohol intake 2 weeks ago, lives with fiancee Acute hypokalemia will replete and follow labs decompensated etoh cirrhosis - recent paracentesis 07/24/24 - no SBP but started on prophy abx at last admisssion. Resume lasix and spironolactone as tolerated resume lactulose hold for diarrhea Stable LFTs not taking cipro for primary prophy for SBP started during last hospitalization Abdominal ultrasound 07/30 showed trace ascites, as per patient no change in abdominal distention hold off on further imaging studies Low albumin will place on supplements prostatism continue tamsulosin mood disorder - quetiapine + mirtazapine thrombocytopenia due to cirrhosis - stable monitor CBC coagulopathy due to cirrhosis INR 1.7 will give vitamin K full code VTE prophy: pneumoboots, due to bleed medication contraindicated Pt with recurrence of UGI bleed complicated by recent admission with concurrent SBP, status post EGD with moderate hypertensive gastropathy with slow oozing requiring H&H monitoring and IV Protonix drip. Quality Stroke Does the patient have a stroke diagnosis?: No VTE Prior VTE?: No VTE Risk Level:: Medical - moderate - high VTE Device Contraindication: N/A - Device Ordered VTE Drug Contraindication: Treatment Not Indicated
[2024-08-09] MEDS: Furosemide 20 MG TABLET PO (11:11)
[2024-08-09 11:15] VITALS: BMI 29.4
--- NOTE | 2024-08-09 11:23 | MHC.CLN ---
RE: CONSULT PT WITH INCREASED NUTRITION RISK R/T PRESSURE INJURY DIET RX: F/L-APPROPRIATE RECOMMEND ADDING ENSURE TID TO INCREASE KCALS AND PROMOTE WOUND HEALING ENSURE TO PROVIDE 1050KCALS, 60G PROTEIN MONITOR PO INTAKE AND ENCOURAGE SUPPLEMENT SEE ALSO FULL CLINICAL NUTRITION ASSESSMENT
[2024-08-09 11:40] VITALS: BP 110/58; PULSE 88; RESP 19; TEMP 36.6; O2SAT 97
[2024-08-09] MEDS: Potassium Chloride ER 20 MEQ TAB.ER.PRT 40 MEQ PO (13:56)
--- NOTE | 2024-08-09 15:10 | HO.SKINPHOTO ---
Location: Coccyx Category: Stage: 2 Length: Width: Depth: cm Location: Category: Stage: Length: Width: Depth: cm Location: Category: Stage: Length: Width: Depth: cm Location: Category: Stage: Length: Width: Depth: cm Location: Category: Stage: Length: Width: Depth: cm Location: Category: Stage: Length: Width: Depth: cm
[2024-08-09 15:50] VITALS: BP 117/55; PULSE 92; TEMP 36.8; O2SAT 99
[2024-08-09 19:47] VITALS: BP 104/59; PULSE 87; RESP 20; TEMP 36.7; O2SAT 98
[2024-08-09 23:47] VITALS: BP 106/51; PULSE 84; RESP 18; TEMP 36.1; O2SAT 99
[2024-08-10] VITALS (10 sets, daily range): BP systolic 101–116; BP diastolic 51–63; PULSE 73–88; RESP 17–20; TEMP 36.4–36.9; O2SAT 97–100
[2024-08-10] MEDS: Pantoprazole Sodium 80 MG in 0.9 % Sodium Chloride 80 ML 10 MG IV (03:06)
--- NOTE | 2024-08-10 04:42 | PC.NURSE ---
Pt Aox3, able to make needs known. He refused his 2100 medications. Education given, pt declined citing nausea; offered anti-emetic, pt agreed, but continued to refuse his scheduled 2100 medications even after repeated education. Pt uses urinal independently. Call andres within reach, bed alarm on.
[2024-08-10 07:38] LABS: Basophils Percent Auto 0.6 % (0-2); Eosinophils Absolute Auto 0.2 X10*3/uL (0.0-0.4); Eosinophils Percent Auto 2.6 % (0-4); Hematocrit 21.5 % (42.0-52.0); Hemoglobin 7.3 g/dl (14.0-18.0); Imm Gran Abs Auto 0.05 X10*3/uL (0.00-0.03); Imm Gran Pct Auto 0.8 % (0.0-0.4); Lymphocytes Absolute Auto 1.2 X10*3/uL (1.2-4.9); Lymphocytes Percent Auto 20.1 % (20-40); MANUAL DIFF FLAG NO; Mean Corpuscular Hemoglobin 33.6 pg (27.0-33.0); Mean Corpuscular Volume 99.1 fL (80.0-98.0); Mean Platelet Volume 9.6 fL (9.4-12.4); Monocytes Absolute Auto 0.4 X10*3/uL (0.1-1.2); Monocytes Percent Auto 6.6 % (2-11); Neutrophils Absolute Auto 4.3 x10*3/uL (2.0-8.3); Neutrophils Percent Auto 69.3 % (45-73); Red Blood Count 2.17 X10*6/uL (4.60-5.80); White Blood Count 6.2 X10*3/uL (4.8-10.8)
[2024-08-10 07:47] LABS: Anion Gap 11 (12-20); Blood Urea Nitrogen 18 mg/dL (9-16); Calcium 7.7 mg/dL (8.4-10.2); Carbon Dioxide 22 mmol/L (22-29); Chloride 105 mmol/L (96-108); Creatinine Clr Calc Pharmacy 105.9; Estimated Glomerular Filt Rate > 60; Glucose Random 93 mg/dL (60-115); Potassium 3.5 mmol/L (3.3-5.1); Sodium 134 mmol/L (135-145)
[2024-08-10 07:50] LABS: Platelet Count 95 X10*3/uL (160-400)
[2024-08-10] MEDS: Magnesium Oxide 400 MG TABLET 200 MG PO (08:28)
[2024-08-10] MEDS: Furosemide 20 MG TABLET PO (08:28)
[2024-08-10] MEDS: QUEtiapine Fumarate 50 MG TABLET PO (08:29)
[2024-08-10] MEDS: Potassium Chloride ER 20 MEQ TAB.ER.PRT PO (08:29)
[2024-08-10] MEDS: Topiramate 100 MG TABLET 200 MG PO ×2 (08:32→20:39)
--- NOTE | 2024-08-10 12:04 | P.PNIM_ITS ---
Subjective Subjective Date of Service: 08/10/24 Interval History: Being followed for upper GI bleed denies hematemesis, no dark stools, no melena, last bowel movement 24 hours ago, no abdominal pain, no lightheadedness or dizziness noted to have drop in hematocrit to 21, receiving IV PPI drip. Review of Systems All other system reviewed and are negative. Physical Exam 2 Vital Signs: Vital Signs: Last Vital Signs Temp 97.9 F 08/10/24 12:01 Pulse 78 08/10/24 12:01 Resp 20 08/10/24 12:01 BP 106/53 L 08/10/24 12:01 Pulse Ox 100 08/10/24 12:01 O2 Del Method Room Air 08/10/24 12:01 O2 Flow Rate 2 08/08/24 15:32 BMI result Body Mass Index 29.4 Const: Other: Gen: in no acute distress HEENT: sclera icteric, moist mucus membranes Neck: supple Lungs: clear to auscultation bilaterally Heart: regular rate and rhythm, no murmurs Abd: Distended abdomen, non tender to palpation Ext: bilateral pitting edema of legs,stable Skin: warm/well-perfused, jaundiced Neuro: alert and oriented x3, no focal findings, no asterixis Psych: appropriate affect Objective Data Active Medications Acetaminophen (Acetaminophen 325 Mg Tablet) 650 mg PO Q6H PRN PRN Reason: Pain, Mild (Pain Scale 1-3), fever or headache Calcium Carbonate (Calcium Carbonate 750 Mg Tab.Chew) 750 mg PO Q4H PRN PRN Reason: Heartburn Furosemide (Furosemide 20 Mg Tablet) 20 mg PO DAILY [facility]; Protocol Last Admin: 08/10/24 08:28 Dose: 20 mg Documented By: CASEY Pantoprazole Sodium 80 mg/ (Sodium Chloride) 100 mls @ 10 mls/hr IV .Q10H [facility] Last Admin: 08/10/24 03:06 Dose: 8 mg/hr, 10 mls/hr Documented By: JOSE MANUEL Lactulose (Lactulose 20 Gm/30 Ml Solution) 20 gm PO BID [facility] Last Admin: 08/10/24 08:29 Dose: Not Given Documented By: CASEY Non-Admin Reason: Patient Refused Magnesium Hydroxide (Milk Of Magnesia 30 Ml Oral.Susp) 30 ml PO DAILY PRN PRN Reason: Constipation Magnesium Oxide (Magnesium Oxide 400 Mg Tablet) 200 mg PO DAILY [facility] Last Admin: 08/10/24 08:28 Dose: 200 mg Documented By: CASEY Melatonin (Melatonin 3 Mg Tablet) 6 mg PO BEDTIME PRN PRN Reason: Insomnia Mirtazapine (Mirtazapine 15 Mg Tablet) 15 mg PO BEDTIME [facility] Last Admin: 08/09/24 22:43 Dose: Not Given Documented By: JOSE MANUEL Non-Admin Reason: Patient Refused Ondansetron HCl (Ondansetron Hcl 4 Mg/2 Ml Vial) 4 mg IVPUSH Q8H PRN PRN Reason: Nausea and Vomiting Last Admin: 08/09/24 20:44 Dose: 4 mg Documented By: JOSE MANUEL Potassium Chloride (Potassium Chloride Er 20 Meq Tab.Er.Prt) 20 meq PO DAILY [facility] Last Admin: 08/10/24 08:29 Dose: 20 meq Documented By: CASEY Quetiapine Fumarate (Quetiapine Fumarate 50 Mg Tablet) 50 mg PO DAILY [facility] Last Admin: 08/10/24 08:29 Dose: 50 mg Documented By: CASEY Sodium Chloride (0.9 % Sodium Chloride Flush 3 Ml Syringe) 3 ml IVFLUSH QSHIFT [facility] Last Admin: 08/10/24 08:29 Dose: Not Given Documented By: CASEY Non-Admin Reason: IV Running Sucralfate (Sucralfate Oral Suspension 1 Gm/10 Ml Oral.Susp) 1 gm PO QIDACHS [facility] Last Admin: 08/10/24 10:50 Dose: Not Given Documented By: CASEY Non-Admin Reason: Patient Refused Tamsulosin HCl (Tamsulosin Hcl 0.4 Mg Capsule) 0.4 mg PO BEDTIME [facility] Last Admin: 08/09/24 22:43 Dose: Not Given Documented By: JOSE MANUEL Non-Admin Reason: Patient Refused Topiramate (Topiramate 100 Mg Tablet) 200 mg PO BID [facility] Last Admin: 08/10/24 08:32 Dose: 200 mg Documented By: CASEY Labs 08/10/24 06:51 08/10/24 06:51 Labs: Laboratory Results - last 24 hr 08/08/24 08/10/24 03:21 06:51 MCV 99.1 H MCH 33.6 H MCHC 34.0 RDW 20.0 H Plt Count 95 L MPV 9.6 Immature Gran % (Auto) 0.8 H Neut % (Auto) 69.3 Lymph % (Auto) 20.1 [place] % (Auto) 6.6 Eos % (Auto) 2.6 Baso % (Auto) 0.6 Lymph # (Auto) 1.2 [place] # (Auto) 0.4 Eos # (Auto) 0.2 Baso # (Auto) 0.0 Abs Immat Gran (auto) 0.05 H Absolute Neuts (auto) 4.3 Absolute Nucleated RBC 0.000 Nucleated RBC % (auto) 0.0 Anion Gap 11 L Estim Creat Clear Calc 105.9 Estimated GFR > 60 Random Glucose 93 Calcium 7.7 L Blood Type A Positive Antibody Screen NEGATIVE Crossmatch See Detail Assessment and Plan (1) Acute upper gastrointestinal bleeding: Status: Acute (2) Anemia: Status: Acute Plan Patient is a 59-year-old male with a past medical history significant for BPH, GERD, hypertension, HLD, CHF, and alcoholic cirrhosis with ascites with a recent admission on 07/23/2024, discharged on 08/10/2024 for upper GI bleed, presented to the ED with coffee-ground emesis and weakness today. Endoscopy on 07/27/2024 which showed portal hypertensive gastropathy and severe esophagitis with ulceration and oozing from the mucosa, hemostatic spray was applied. H+H low in ED, 7.0/20.9, receiving 2 U PRBC now. UGI bleed - No recurrent coffee-ground emesis on admission H+H 7.0/20.9 received 2 units of packed RBC hematocrit improved currently 8/23.3, today hematocrit dropped to 21 Underwent upper endoscopy by Dr. Brito that showed friable gastric mucosa consistent with moderate portal hypertensive gastropathy, slow oozing from gastropathy treated with hemo spray, grade 3 flap valve, congestive duodenopathy in the bulb and normal descending duodenum hemo spray applied Diagnosis erosive esophagitis with slow oozing from GE junction, moderate portal hypertensive gastropathy with slow oozing localized to lesser curvature in the proximal stomach on IV Protonix drip will DC and switch to by mouth PPI, continue sucralfate , tolerating regular diet As per patient loss alcohol intake 2 weeks ago, lives with fiance Recurrent blood drop likely dilutional, no active bleed noted will transfuse 1 unit and follow H&H Acute hypokalemia repleted and normalized decompensated etoh cirrhosis - recent paracentesis 07/24/24 - no SBP but started on prophy abx at last admisssion. Resume lasix and spironolactone as tolerated resume lactulose hold for diarrhea Stable LFTs not taking cipro for primary prophy for SBP started during last hospitalization Abdominal ultrasound 07/30 showed trace ascites, as per patient no change in abdominal distention hold off on further imaging studies Low albumin placed on supplements prostatism continue tamsulosin mood disorder -continue quetiapine + mirtazapine thrombocytopenia due to cirrhosis - stable monitor CBC coagulopathy due to cirrhosis INR 1.7 will give vitamin K full code VTE prophy: pneumoboots, due to bleed. Pt with recurrence of UGI bleed complicated by recent admission with concurrent SBP, status post EGD with moderate hypertensive gastropathy with slow oozing requiring H&H monitoring . Quality Stroke Does the patient have a stroke diagnosis?: No VTE Prior VTE?: No VTE Risk Level:: Medical - moderate - high VTE Device Contraindication: N/A - Device Ordered VTE Drug Contraindication: Treatment Not Indicated
[2024-08-10] MEDS: Spironolactone 25 MG TABLET PO (12:57)
[2024-08-10] MEDS: Phytonadione (Vit K1) Oral 10 MG/ML AMPUL 5 MG PO (12:57)
[2024-08-10] MEDS: Omeprazole/Na Bicarb Oral Susp 20 MG/10 ML UD Cup 40 MG PO (15:46)
[2024-08-10] MEDS: Sucralfate Oral Suspension 1 GM/10 ML ORAL.SUSP PO ×2 (15:46→20:38)
[2024-08-10] MEDS: Mirtazapine 15 MG TABLET PO (20:39)
[2024-08-10] MEDS: Tamsulosin HCL 0.4 MG CAPSULE PO (20:39)
[2024-08-10] MEDS: 0.9 % Sodium Chloride Flush 3 ML SYRINGE IVFLUSH (20:39)
[2024-08-10] MEDS: ondansetron HCL 4 MG/2 ML VIAL IVPUSH (22:22)
[2024-08-10] MEDS: Acetaminophen 325 MG TABLET 650 MG PO (22:22)
[2024-08-11] MEDS: traMADoL HCL 50 MG TABLET 25 MG PO (01:26)
[2024-08-11 04:00] VITALS: BP 100/52; PULSE 90; RESP 20; TEMP 36.7; O2SAT 100
[2024-08-11] MEDS: Omeprazole/Na Bicarb Oral Susp 20 MG/10 ML UD Cup 40 MG PO (06:14)
[2024-08-11 06:39] LABS: MANUAL DIFF FLAG NO
[2024-08-11 07:06] LABS: Anion Gap 10 (12-20); Blood Urea Nitrogen 15 mg/dL (9-16); Calcium 7.8 mg/dL (8.4-10.2); Carbon Dioxide 23 mmol/L (22-29); Chloride 105 mmol/L (96-108); Creatinine Clr Calc Pharmacy 100.1; Estimated Glomerular Filt Rate > 60; Glucose Random 91 mg/dL (60-115); Potassium 3.7 mmol/L (3.3-5.1); Sodium 134 mmol/L (135-145)
[2024-08-11 07:08] LABS: Basophils Percent Auto 0.6 % (0-2); Eosinophils Absolute Auto 0.1 X10*3/uL (0.0-0.4); Eosinophils Percent Auto 2.3 % (0-4); Hematocrit 24.9 % (42.0-52.0); Hemoglobin 8.2 g/dl (14.0-18.0); Imm Gran Abs Auto 0.04 X10*3/uL (0.00-0.03); Imm Gran Pct Auto 0.6 % (0.0-0.4); Lymphocytes Absolute Auto 1.3 X10*3/uL (1.2-4.9); Lymphocytes Percent Auto 20.9 % (20-40); Mean Corpuscular HGB Conc 32.9 g/dl (31.0-36.0); Mean Corpuscular Hemoglobin 32.2 pg (27.0-33.0); Mean Corpuscular Volume 97.6 fL (80.0-98.0); Mean Platelet Volume 9.3 fL (9.4-12.4); Monocytes Absolute Auto 0.4 X10*3/uL (0.1-1.2); Monocytes Percent Auto 6.8 % (2-11); Neutrophils Absolute Auto 4.3 x10*3/uL (2.0-8.3); Neutrophils Percent Auto 68.8 % (45-73); Red Blood Count 2.55 X10*6/uL (4.60-5.80); Red Cell Distribution Width 20.9 % (11.0-16.0); White Blood Count 6.2 X10*3/uL (4.8-10.8)
[2024-08-11 07:19] LABS: Platelet Count 92 X10*3/uL (160-400)
[2024-08-11 07:43] VITALS: BP 106/56; PULSE 70; RESP 20; TEMP 36.4; O2SAT 100
[2024-08-11] MEDS: Magnesium Oxide 400 MG TABLET 200 MG PO (08:33)
[2024-08-11] MEDS: Spironolactone 25 MG TABLET PO (08:33)
[2024-08-11] MEDS: Furosemide 20 MG TABLET PO (08:34)
[2024-08-11] MEDS: QUEtiapine Fumarate 50 MG TABLET PO (08:34)
[2024-08-11] MEDS: Topiramate 100 MG TABLET 200 MG PO (08:34)
[2024-08-11] MEDS: Potassium Chloride ER 20 MEQ TAB.ER.PRT PO (08:34)
[2024-08-11] MEDS: Phytonadione (Vit K1) Oral 10 MG/ML AMPUL 5 MG PO (08:35)
[2024-08-11] MEDS: 0.9 % Sodium Chloride Flush 3 ML SYRINGE IVFLUSH (08:35)
[2024-08-11] MEDS: Sucralfate Oral Suspension 1 GM/10 ML ORAL.SUSP PO (08:36)
--- NOTE | 2024-08-11 10:30 | PM.DS ---
DS: Providers Provider Date of Service: 08/11/24 Date of admission: 08/08/24 10:00 Date of discharge: 08/11/24 Primary care physician: Fransisco Soria MD Consults: 08/08/24 10:04 Consult to Gastroenterology Routine Consulting Provider: Abhilash Brito Reason for consultation: UGI bleed, decomp. cirrhosis Has provider been notified: No 08/08/24 17:32 Addiction Medicine Routine Consulting Provider: Addiction Covering Reason for consultation: prolnged alchohol use Has provider been notified: Yes DS: Diagnosis Discharge Diagnosis (1) Acute upper gastrointestinal bleeding: Status: Acute (2) Anemia: Status: Acute DS: Summary Hospital Course Hospital Course: History of present illness: Date of Service: 08/08/24 Attending physician on admission: Dayana Hanson Chief Complaint: coffee ground emesis Patient is a 59-year-old male with a past medical history significant for prostate cancer, hypertension, HLD, CHF, and alcoholic cirrhosis with ascites with a recent admission on 07/23/2024, discharged on 08/10/2024 for upper GI bleed, presented to the ED with coffee-ground emesis and weakness today. Questionable if melena. He reports that this has been persistent since discharge. He had an endoscopy on 07/27/2024 which showed portal hypertensive gastropathy and severe esophagitis with ulceration and oozing from the mucosa, hemostatic spray was applied. He continues to have lower extremity edema and generalized abdominal pain, mostly in the upper abdomen. He denies active etoh use at home, chest pain or shortness of breath. Hospital course: 59-year-old male with a past medical history significant for BPH, GERD, hypertension, HLD, CHF, and alcoholic cirrhosis with ascites with a recent admission on 07/23/2024, discharged on 08/10/2024 for upper GI bleed, presented to the ED with coffee-ground emesis and weakness today. Endoscopy on 07/27/2024 which showed portal hypertensive gastropathy and severe esophagitis with ulceration and oozing from the mucosa, hemostatic spray was applied. Noted to have significantly low H+H in ED, 7.0/20.9, received 2 units of packed RBC and admitted to [facility] due to recurrent upper GI bleed. Recurrent UGI bleed and acute on chronic blood-loss anemia admitted to telemetry unit and Underwent upper endoscopy by Dr. Brito that showed friable gastric mucosa consistent with moderate portal hypertensive gastropathy, slow oozing from gastropathy treated with hemo spray, grade 3 flap valve, congestive duodenopathy in the bulb consistent with erosive esophagitis with slow oozing treated with hemo spray applied, patient treated with 48 hours of IV Protonix drip, no recurrent episode of coffee-ground emesis noted in hospital, diet has been gradually advanced that patient is tolerating well, patient received additional unit of 1 more unit of packed RBC, hematocrit improved to 24.7, since patient is hemodynamically stable he is being discharged home on Prilosec 40 mg b.i.d. sucralfate 4 times daily and has been strongly advised to abstain from alcohol his last alcohol intake was 2 weeks ago. In regard to decompensated etoh cirrhosis he was treated with Lasix and spironolactone 50 mg as per patient he is not using spironolactone at home since has no prescription, he was supposed to be on spironolactone 100 mg daily but due to soft blood pressure will discharge home on spironolactone 50 mg daily he is recommended to continue lactulose, Abdominal ultrasound 07/30 showed trace ascites, as per patient no change in abdominal distention therefore no further imaging studies were done, patient was recently placed on Cipro for primary SBP prophylaxis during last hospitalization, but patient is noncompliant with medication, noted to have low albumin recommend to take high-protein diet. prostatism continue tamsulosin mood disorder -continue quetiapine + mirtazapine thrombocytopenia due to cirrhosis - stable coagulopathy due to cirrhosis INR 1.7 treated with vitamin K. Time Attestation Discharge Coordination Time (in mins): 40 Quality: Safe Use of Opioids Does Pt have an Active Cancer Diagnosis on the Problem List?: No Quality: Stroke Does the patient have a stroke diagnosis?: No Physical Exam Vital Signs: Vital Signs: Last Vital Signs Temp 97.6 F 08/11/24 07:43 Pulse 70 08/11/24 07:43 Resp 20 08/11/24 07:43 BP 106/56 L 08/11/24 07:43 Pulse Ox 100 08/11/24 07:43 O2 Del Method Room Air 08/11/24 07:43 O2 Flow Rate 2 08/08/24 15:32 BMI result Body Mass Index 29.4 Const: Other: Gen: in no acute distress HEENT: sclera icteric, moist mucus membranes Neck: supple Lungs: clear to auscultation bilaterally Heart: regular rate and rhythm, no murmurs Abd: Distended abdomen, non tender to palpation, no guarding, no rigidity, bowel sounds audible soft to palpation. Ext: bilateral pitting edema of legs,stable Skin: warm/well-perfused, jaundiced Neuro: alert and oriented x3, no focal findings, no asterixis Psych: appropriate affect DS: Data Data Completed and Pending Completed studies during hospitalization [Text1]: Procedures Control Bleeding in Gastrointestinal Tract, Via Natural or Artificial Opening Endoscopic (03/20/24) Detoxification Services for Substance Abuse Treatment (03/20/24) Drainage of Bladder with Drainage Device, Via Natural or Artificial Opening Endoscopic (02/23/24) Drainage of Peritoneal Cavity, Percutaneous Approach (07/23/24) Excision of Cecum, Via Natural or Artificial Opening Endoscopic, Diagnostic (03/02/22) Excision of Rectum, Via Natural or Artificial Opening Endoscopic, Diagnostic (03/02/22) Insertion of Infusion Device into Right Femoral Artery, Percutaneous Approach (03/20/24) Insertion of Infusion Device into Superior Vena Cava, Percutaneous Approach (03/20/24) Inspection of Upper Intestinal Tract, Via Natural or Artificial Opening Endoscopic (02/23/24) Introduction of Mineral-based Topical Hemostatic Agent into Upper GI, Via Natural or Artificial Opening Endoscopic, [employer] (07/23/24) Introduction of Other Therapeutic Substance into Upper GI, Via Natural or Artificial Opening Endoscopic (03/20/24) Introduction of Vasopressor into Peripheral Vein, Percutaneous Approach (02/23/24) Repair Scalp Skin, External Approach (11/20/21) Respiratory Ventilation, 24-96 Consecutive Hours (03/20/24) Transfusion of Nonautologous Frozen Plasma into Peripheral Vein, Percutaneous Approach (03/20/24) Transfusion of Nonautologous Platelets into Peripheral Vein, Percutaneous Approach (02/23/24) Transfusion of Nonautologous Red Blood Cells into Peripheral Vein, Percutaneous Approach (07/23/24) Ultrasonography of Superior Vena Cava, Guidance (03/20/24) Labs on day of discharge: Laboratory Results - last 24 hr 08/08/24 08/11/24 08/11/24 03:21 06:33 06:33 WBC 6.2 Cancelled RBC 2.55 L Hgb Hct MCV MCH MCHC RDW Plt Count MPV Immature Gran % (Auto) Neut % (Auto) Lymph % (Auto) [place] % (Auto) Eos % (Auto) Baso % (Auto) Lymph # (Auto) [place] # (Auto) Eos # (Auto) Baso # (Auto) Abs Immat Gran (auto) Absolute Neuts (auto) Absolute Nucleated RBC Nucleated RBC % (auto) Sodium Potassium Chloride Carbon Dioxide Anion Gap BUN Creatinine Estim Creat Clear Calc Estimated GFR Random Glucose Calcium Blood Type A Positive Antibody Screen NEGATIVE Crossmatch See Detail 08/11/24 08/11/24 08/11/24 06:33 06:33 06:33 WBC RBC Cancelled Hgb 8.2 L Cancelled Hct 24.9 L Cancelled MCV 97.6 MCH MCHC RDW Plt Count MPV Immature Gran % (Auto) Neut % (Auto) Lymph % (Auto) [place] % (Auto) Eos % (Auto) Baso % (Auto) Lymph # (Auto) [place] # (Auto) Eos # (Auto) Baso # (Auto) Abs Immat Gran (auto) Absolute Neuts (auto) Absolute Nucleated RBC Nucleated RBC % (auto) Sodium Potassium Chloride Carbon Dioxide Anion Gap BUN Creatinine Estim Creat Clear Calc Estimated GFR Random Glucose Calcium Blood Type Antibody Screen Crossmatch 08/11/24 08/11/24 08/11/24 06:33 06:33 06:33 WBC RBC Hgb Hct MCV Cancelled MCH 32.2 Cancelled MCHC 32.9 Cancelled RDW 20.9 H Plt Count MPV Immature Gran % (Auto) Neut % (Auto) Lymph % (Auto) [place] % (Auto) Eos % (Auto) Baso % (Auto) Lymph # (Auto) [place] # (Auto) Eos # (Auto) Baso # (Auto) Abs Immat Gran (auto) Absolute Neuts (auto) Absolute Nucleated RBC Nucleated RBC % (auto) Sodium Potassium Chloride Carbon Dioxide Anion Gap BUN Creatinine Estim Creat Clear Calc Estimated GFR Random Glucose Calcium Blood Type Antibody Screen Crossmatch 08/11/24 08/11/24 08/11/24 06:33 06:33 06:33 WBC RBC Hgb Hct MCV MCH MCHC RDW Cancelled Plt Count 92 L Cancelled MPV 9.3 L Cancelled Immature Gran % (Auto) 0.6 H Neut % (Auto) 68.8 Lymph % (Auto) 20.9 [place] % (Auto) 6.8 Eos % (Auto) 2.3 Baso % (Auto) 0.6 Lymph # (Auto) 1.3 [place] # (Auto) 0.4 Eos # (Auto) 0.1 Baso # (Auto) 0.0 Abs Immat Gran (auto) 0.04 H Absolute Neuts (auto) 4.3 Absolute Nucleated RBC 0.000 Nucleated RBC % (auto) Sodium Potassium Chloride Carbon Dioxide Anion Gap BUN Creatinine Estim Creat Clear Calc Estimated GFR Random Glucose Calcium Blood Type Antibody Screen Crossmatch 08/11/24 08/11/24 06:33 06:33 WBC RBC Hgb Hct MCV MCH MCHC RDW Plt Count MPV Immature Gran % (Auto) Neut % (Auto) Lymph % (Auto) [place] % (Auto) Eos % (Auto) Baso % (Auto) Lymph # (Auto) [place] # (Auto) Eos # (Auto) Baso # (Auto) Abs Immat Gran (auto) Absolute Neuts (auto) Absolute Nucleated RBC Cancelled Nucleated RBC % (auto) 0.0 Cancelled Sodium 134 L Potassium 3.7 Chloride 105 Carbon Dioxide 23 Anion Gap 10 L BUN 15 Creatinine 0.91 Estim Creat Clear Calc 100.1 Estimated GFR > 60 Random Glucose 91 Calcium 7.8 L Blood Type Antibody Screen Crossmatch Discharge Plan Discharge Anticipated Discharge Date/Time: 08/11/24 10:26 Patient Disposition: Home, Self-Care Discharge Diagnosis: Recurrent upper GI bleed Acute on chronic blood-loss anemia Referrals: Fransisco Soria MD [Primary Care Provider] - 1 Week Discharge Medications: New spironolactone 50 mg tablet 50 mg PO QAM Qty: 90 0RF Continued mirtazapine 15 mg tablet 15 mg PO BEDTIME melatonin 10 mg tablet 10 mg PO BEDTIME quetiapine [Seroquel] 50 mg tablet 50 mg PO DAILY tamsulosin 0.4 mg capsule 0.4 mg PO BEDTIME topiramate 200 mg tablet 200 mg PO BID furosemide 40 mg Tablet 20 mg PO DAILY Qty: 1 0RF Protocol: Hold for SBP< HOLD for SBP < : 90 sucralfate 100 mg/mL Suspension 1 g PO QIDACHS Qty: 1 0RF lactulose 20 gram/30 mL Solution 20 g PO BID Qty: 1 0RF omeprazole 40 mg Capsule,Delayed Release(Dr/Ec) 40 mg PO BID@0630,1630 Qty: 1 0RF magnesium 200 mg tablet 200 mg PO DAILY Qty: 14 0RF Discontinued spironolactone 100 mg tablet 100 mg PO DAILY Discharge Orders: Discharge Order (Routine); Ordered 08/11/24 Ordered By: Dayana Hanson Diet: Regular diet Stand Alone Forms: Patient Portal Discharge page Print Language: Bruneian Care Plan Goals: Continue Lasix and Aldactone Continue Prilosec twice daily and sucralfate felt 4 times a day Complete abstinence from alcohol High-protein diet Health Concerns: Recurrent GI bleed Plan of Treatment: Outpatient follow-up with Dr. Brito call for appointment in 2-4 weeks Outpatient follow-up with primary care physician. Assessment: As above
--- NOTE | 2024-08-11 11:21 | MHC.CM.PN ---
PT CLEARED TO DC HOME TODAY WITH NO SERVICES VIA PRIVATE TRANSPORT
== END 2024-08-11 11:26 | disposition home or self-care (01) | DRG 381 ==
LOC: HO.ED 05:13 → HO.EDOVER 10:07 → HO.IMC 13:48
PROVIDERS: Emergency Medicine; Internal Medicine Gastroenterology; Admitting Provider Physician Assistant; Emergency Provider Internal Medicine; PCP Internal Medicine; Visit Provider Hospitalist
PROC: 0DJ08ZZ Inspection of Upper Intestinal Tract, Via Natural or Artificial Opening Endoscopic (ICD-10-PCS; CPT 43235; principal; 2024-08-08 14:00)
DX: K22.11 Ulcer of esophagus with bleeding (principal); D62 Acute posthemorrhagic anemia; D68.4 Acquired coagulation factor deficiency; K76.6 Portal hypertension; K31.89 Other diseases of stomach and duodenum; K44.9 Diaphragmatic hernia without obstruction or gangrene; F17.210 Nicotine dependence, cigarettes, uncomplicated; E87.6 Hypokalemia; Z71.6 Tobacco abuse counseling; I10 Essential (primary) hypertension; F39 Unspecified mood [affective] disorder; D69.59 Other secondary thrombocytopenia; N40.0 Benign prostatic hyperplasia without lower urinary tract symptoms; T36.8X6A Underdosing of other systemic antibiotics, initial encounter; E78.5 Hyperlipidemia, unspecified; K70.31 Alcoholic cirrhosis of liver with ascites; Z79.899 Other long term (current) drug therapy
CPT/HCPCS: 36415; 80048; 80053; 85025; 85027; 85610; 86850; 86900; 86901; 86923; 99285; J0330; J2003; J2405; J2470; J2704; J3010; J7120; P9016

== ENCOUNTER → 2024-08-08 10:00 | Outpatient (BNV) | payer MEDICARE, SELFPAY | PROVIDERS: Admitting Provider Physician Assistant; Emergency Provider Internal Medicine; PCP Internal Medicine; Visit Provider Internal Medicine Gastroenterology | DX: K92.0 Hematemesis (principal); K92.2 Gastrointestinal hemorrhage, unspecified; K70.31 Alcoholic cirrhosis of liver with ascites; D64.9 Anemia, unspecified; K20.91 Esophagitis, unspecified with bleeding; K31.89 Other diseases of stomach and duodenum; K29.80 Duodenitis without bleeding | CPT/HCPCS: 43255; 99222 ==

== ENCOUNTER → 2024-08-08 10:00 | Outpatient (BNV) | payer MEDICARE, SELFPAY | PROVIDERS: Admitting Provider Physician Assistant; Emergency Provider Internal Medicine; Visit Provider Physician Assistant | DX: K92.2 Gastrointestinal hemorrhage, unspecified (principal); D64.9 Anemia, unspecified | CPT/HCPCS: 99223; 99232; 99239 ==

== ENCOUNTER 2024-08-12 11:59 | Inpatient (IN) | payer MEDICARE, SELFPAY ==
[2024-08-12] VITALS (12 sets, daily range): BP systolic 108–142; BP diastolic 51–72; PULSE 87–100; RESP 16–18; TEMP 36.2–37.2; O2SAT 98–100; BMI 30.2
--- NOTE | ~2024-08-12 | XR_ITS ---
EXAMINATION: XR CHEST CLINICAL INFORMATION: Cough COMPARISON: Chest x-ray March 21, 2024 TECHNIQUE: 2 views of the chest were obtained. FINDINGS: Small linear band of density at the left lower lobe consistent with pneumonia/atelectasis. Right lung normally aerated. No significant pleural effusion. Heart size is normal. No pulmonary vascular congestion. XR/XR chest 2V IMPRESSION: Small linear band of density at the left lower lobe consistent with pneumonia/atelectasis. Electronically signed by: Damien Hunter MD 08/12/2024 06:50 PM EDT RP
--- NOTE | ~2024-08-12 | CT_ITS ---
EXAMINATION: CT ABDOMEN WITHOUT CONTRAST CLINICAL INFORMATION: Upper GI bleeding. COMPARISON: None available. TECHNIQUE: Contiguous axial thin section helical images of the abdomen were performed without contrast. The data set was reformatted in the coronal and sagittal planes and reviewed on an independent workstation. This CT examination was performed using dose optimization techniques as appropriate, variously including the following: *Automated exposure control *Adjustment of mA and/or kV according to patient size (this includes techniques or standardized protocols for targeted exams where dose is matched to indication/reason for exam; i.e. extremities or head) *Use of iterative reconstruction technique DLP: 895 mGy-cm FINDINGS: LUNG BASES: There are trace bibasilar effusions. There is moderate airspace disease in the posterior left base, with air bronchograms. There are coronary artery atherosclerotic calcifications. There is moderately severe bilateral gynecomastia. LIVER, GALLBLADDER, AND BILIARY TREE: The liver is normal in size, shape, and attenuation. There is a lobulated hepatic contour, raising the possibility of cirrhotic change. No focal hepatic lesion or biliary ductal dilatation is present. There is cholelithiasis, without gallbladder wall thickening or obvious pericholecystic inflammatory change. PANCREAS: Unremarkable. SPLEEN: There is splenomegaly, with a longitudinal span of 16.5 cm (7:53). No focal finding is seen. ADRENAL GLANDS: Unremarkable. KIDNEYS AND URETERS: The kidneys are normal in size, shape, and attenuation. No hydronephrosis, hydroureter, or calculi seen. There is mild nonspecific bilateral perinephric stranding. GASTROINTESTINAL TRACT: There is wall thickening of the distal esophagus and the gastroesophageal junction. A linear metallic device is seen within the distal esophagus, possibly an endoclip. The included loops of small and large bowel are unremarkable. ABDOMINAL WALL: No significant hernia is appreciated. There is mild generalized anasarca. LYMPH NODES: Normal. VASCULAR: There is mild aortoiliac vascular calcification. No abdominal aortic aneurysm is seen. Perisplenic and azygoesophageal varices are suspected. OSSEOUS STRUCTURES: There is multi-level thoracolumbar spondylosis. No acute or aggressive osseous finding is noted. FREE FLUID: There is mild ascites within the perihepatic and perisplenic regions, the right paracolic gutter and adjacent to the lesser curvature of the stomach. CT/CT abdomen wo IV con IMPRESSION: 1. No acute hemorrhage is appreciated on this examination significantly limited by noncontrast technique. 2. Findings are consistent with cirrhosis and portal hypertension. 3. There is wall thickening of the distal esophagus and the gastroesophageal junction. 4. There is mild ascites, and there is generalized anasarca. 5. There is cholelithiasis. 6. There is multi-level thoracolumbar spondylosis. 7. There is moderately severe gynecomastia. 8. There are trace bibasilar effusions. There is moderate posterior left base airspace disease. Fleischner guidelines were followed. Electronically signed by: Reuben Ness MD 08/15/2024 01:56 PM EDT
[2024-08-12 12:19] LABS: MANUAL DIFF FLAG NO
[2024-08-12 12:21] LABS: Basophils Absolute Auto 0.1 X10*3/uL (0.0-0.2); Basophils Percent Auto 0.6 % (0-2); Eosinophils Percent Auto 0.2 % (0-4); Hematocrit 28.7 % (42.0-52.0); Hemoglobin 9.5 g/dl (14.0-18.0); Imm Gran Abs Auto 0.07 X10*3/uL (0.00-0.03); Imm Gran Pct Auto 0.7 % (0.0-0.4); Lymphocytes Absolute Auto 0.7 X10*3/uL (1.2-4.9); Lymphocytes Percent Auto 6.8 % (20-40); Mean Corpuscular HGB Conc 33.1 g/dl (31.0-36.0); Mean Corpuscular Hemoglobin 33.1 pg (27.0-33.0); Mean Platelet Volume 9.3 fL (9.4-12.4); Monocytes Absolute Auto 0.6 X10*3/uL (0.1-1.2); Monocytes Percent Auto 5.7 % (2-11); Neutrophils Absolute Auto 8.5 x10*3/uL (2.0-8.3); Platelet Count 120 X10*3/uL (160-400); Red Blood Count 2.87 X10*6/uL (4.60-5.80); Red Cell Distribution Width 20.9 % (11.0-16.0); White Blood Count 9.9 X10*3/uL (4.8-10.8)
--- NOTE | 2024-08-12 12:26 | ED.MALEGU ---
HPI - Male Genitourinary General Chief complaint: Urogenital-Male Stated complaint: SWOLLEN GENITALS PER EMS Time Seen by Provider: 08/12/24 12:25 Source: patient and EMS Mode of arrival: EMS Limitations: no limitations History of Present Illness ED Provider: Arjun Hawkins PA-C HPI Narrative: 59 yo male with history of alcohol cirrhosis w/ ascites, esophageal varices & portal hypertensive gastropathy, recurrent UGIB, anasarca, hx prostate cancer s/p XRT who presents to the ER from home via EMS for evaluation of hematuria and dysuria that started yesterday. He was just admitted to [facility] 07/23-07/31 and then 08/08-08/11 for abdominal pain and UGIB. He states prior to discharge yesterday he started having blood in his urine. He reports it has since gotten worse and much more painful. He denies any fever or chills. No blood from his rectum. He reports severe pain in his lower abdomen and unable to completely empty his bladder. He feels like he is retaining urine. He reports severe swelling in his testicles as well, this has been what evolving over time MD Complaint: testicle pain and testicle swelling Onset (ago): day(s) Duration: progressively worsening Location: penis Associated symptoms: Reports swelling Related Data Home Medications ?Medication ?Instructions ?Recorded ?Confirmed melatonin 10 mg tablet 10 mg PO BEDTIME Insomnia 11/13/23 08/08/24 mirtazapine 15 mg tablet 15 mg PO BEDTIME 11/13/23 08/08/24 quetiapine 50 mg tablet (Seroquel) 50 mg PO DAILY 03/20/24 08/08/24 tamsulosin 0.4 mg capsule 0.4 mg PO BEDTIME 07/23/24 08/08/24 topiramate 200 mg tablet 200 mg PO BID 07/23/24 08/08/24 Previous Rx's ?Medication ?Instructions ?Recorded furosemide 40 mg tablet 20 mg PO DAILY #1 tab 07/31/24 lactulose 20 gram/30 mL oral 20 g (30 mL) PO BID #1 mL 07/31/24 solution omeprazole 40 mg capsule,delayed 40 mg PO BID@0630,1630 #1 cap 07/31/24 release sucralfate 100 mg/mL oral 1 g (10 mL) PO QIDACHS #1 mL 07/31/24 suspension magnesium 200 mg tablet 200 mg PO DAILY #14 tabs 08/01/24 spironolactone 50 mg tablet 50 mg PO QAM #90 tabs 08/11/24 Allergies Allergy/AdvReac Type Severity Reaction Status Date / Time Fish Containing Products Allergy Severe THROAT Verified 08/12/24 12:06 SWELLING peanut [Peanut] Allergy Severe THROAT Verified 08/12/24 12:06 SWELLING Review of Systems Review of Systems: Yes all other systems are reviewed and are negative [facility] Past Medical History Medical History Congestive heart failure Anemia ETOH abuse Alcoholic cirrhosis PTSD (post-traumatic stress disorder) Hyponatremia Acute hyponatremia NATHANIEL (acute kidney injury) Acute metabolic encephalopathy [place] Alcoholic cirrhosis of liver with ascites Prostate cancer Depression Hyperlipidemia Hypertension Anxiety Social History Social History Household Members: Spouse Household Members Other:: fiancee [facility] Do you presently have visiting nurse or other home services: Yes Unable to assess alcohol history related to: Refusing to respond Alcohol intake: former Comment: bilateral wrist restraints for airway safety Patient Tobacco Use Status: Current everyday Tobacco user Tobacco use type: Cigarette Cigarette Packs Per Day: 3 Cigarettes Per Day: 60.0 Years Smoked: 25 Smoked in Last 30 Days: Yes e-Cigarette/Vaping Use: Never Used Second Hand Smoke Exposure: No Use of substances other than those prescribed or required for medical reasons: No Substance Use Type: Marijuana Advance Directives: Yes Advance Directives on File: Yes Advance Directives Date on File: 11/11/21 Do you have a plan to hurt others: No Plan service: No Current occupational status: disabled Physical Exam Vital Signs: Vital Signs: Last Vital Signs Temp 97.7 F 08/12/24 12:09 Pulse 92 08/12/24 14:39 Resp 16 08/12/24 14:39 BP 121/67 08/12/24 14:39 Pulse Ox 99 08/12/24 14:39 O2 Del Method Room Air 08/12/24 14:39 BMI result Body Mass Index 30.2 Appearance: Alert jaundice, cachectic and chronically ill-appearing Oriented X3. No acute distress. Head: normocephalic, atraumatic. Eyes: Pupils equal, round and reactive to light. Anicteric sclerae ENT: Pharynx normal. No tonsillar swelling or exudate. Neck: Normal inspection. Neck supple. CVS: Normal heart rate and rhythm. Pulses normal. Respiratory: No respiratory distress. Breath sounds normal. Abdomen: Softly distended and tender, spider angiomatas present on the abdominal wall, pitting edema of the dependent abdomen normal active +BS x4 Skin: Skin warm and dry. Normal skin color. Normal skin turgor. No rashes. Extremities: 3+ lower extremity edema. No joint swelling. Neuro/psych: Oriented X 3. No motor deficit. No sensory deficit. CN II-XII intact. Normal speech and cognition. Medications Administered Discontinued Medications Generic Name Dose Route Start Last Admin Trade Name Kmq PRN Reason Stop Dose Admin Ceftriaxone Sodium 1 gm 08/12/24 16:34 08/12/24 16:51 Ceftriaxone Sodium 1 Gm Vial IVPUSH 08/12/24 16:35 1 gm ONCE ONE Administration Lidocaine HCl 10 ml 08/12/24 12:33 08/12/24 13:36 Lidocaine Hcl 2 % Urojet 10 Ml Jel.Pf.Janel TOPICAL 08/12/24 12:34 10 ml ONCE ONE Administration Lidocaine HCl 10 ml 08/12/24 13:20 08/12/24 13:36 Lidocaine Hcl 2 % Urojet 10 Ml Jel.Pf.Janel TOPICAL 08/12/24 13:21 10 ml ONCE ONE Administration Morphine Sulfate 4 mg 08/12/24 13:27 08/12/24 13:36 Morphine Sulfate 4 Mg/Ml Cartridge IVPUSH 08/12/24 13:28 4 mg ONCE ONE Administration Protocol Medical Decision Making Medical Decision Making MDM Narrative: 59 yo male with history of alcohol cirrhosis w/ ascites, esophageal varices & portal hypertensive gastropathy, recurrent UGIB, anasarca, hx prostate cancer s/p XRT who presents to the ER from home via EMS for evaluation of hematuria and dysuria that started yesterday. He was just admitted to [facility] 07/23-07/31 and then 08/08-08/11 for abdominal pain and UGIB. Patient retaining urine with over 500 cc in his bladder, although question the accuracy of this given his known ascites. He does have diffuse tenderness with anasarca and pitting edema all the way up to his chest. He is breathing well, saturating well on room air. He is deconditioned and appears chronically unwell. There is blood coming from the penis with diffuse swelling of the penis and scrotum. Doubt any acute structural issues of the scrotum or testes. Will defer imaging for now. There is blood coming from the urethral meatus with suprapubic tenderness. Multiple attempts were made at placing a Barber catheter with various size catheters, attempted CBI catheter with no success. Dr. Mayo was contacted Dr. Mayo came to the bedside and tried wire assisted and scope assisted placement without success. He will need to go to the operating room for placement. 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 His lab work today is reassuring with an up trending H and H, no leukocytosis. Will give a dose of empiric Rocephin. His platelets are 120k in his INR was 1.7 from the other day. Will admit to medicine for further management Differential Diagnosis Differential Diagnoses: The differential diagnosis associated with the presentation includes UTI, bladder outlet obstruction, coagulopathy with spontaneous hematuria, bladder cancer Admission/Observation Consideration of admission/observation: Escalation of care including admission/observation considered Consult Healthcare Provider Management of the patient was discussed with: Hospitalist and Java Web Engineer Dr. Mayo - needs to take to the OR Lab Data MDM Lab Attestation statement: I reviewed the patient's lab results. Improving anemia, mild thrombocytopenia, mild hypo natremia which is chronic normal BUN 08/12/24 12:15 08/12/24 12:15 Labs: Lab Results 08/12/24 Range/Units 12:15 WBC 9.9 (4.8-10.8) X10*3/uL RBC 2.87 L (4.60-5.80) X10*6/uL Hgb 9.5 L (14.0-18.0) g/dl Hct 28.7 L (42.0-52.0) % MCV 100.0 H (80.0-98.0) fL MCH 33.1 H (27.0-33.0) pg MCHC 33.1 (31.0-36.0) g/dl RDW 20.9 H (11.0-16.0) % Plt Count 120 L D (160-400) X10*3/uL MPV 9.3 L (9.4-12.4) fL Immature Gran % (Auto) 0.7 H (0.0-0.4) % Neut % (Auto) 86.0 H (45-73) % Lymph % (Auto) 6.8 L (20-40) % [place] % (Auto) 5.7 (2-11) % Eos % (Auto) 0.2 (0-4) % Baso % (Auto) 0.6 (0-2) % Lymph # (Auto) 0.7 L (1.2-4.9) X10*3/uL [place] # (Auto) 0.6 (0.1-1.2) X10*3/uL Eos # (Auto) 0.0 (0.0-0.4) X10*3/uL Baso # (Auto) 0.1 (0.0-0.2) X10*3/uL Abs Immat Gran (auto) 0.07 H (0.00-0.03) X10*3/uL Absolute Neuts (auto) 8.5 H (2.0-8.3) x10*3/uL Absolute Nucleated RBC 0.000 (0.0-0.012) X10*3/uL Nucleated RBC % (auto) 0.0 (0.0-0.2) /100WBC Sodium 132 L (135-145) mmol/L Potassium 3.8 (3.3-5.1) mmol/L Chloride 107 (96-108) mmol/L Carbon Dioxide 19 L (22-29) mmol/L Anion Gap 10 L (12-20) BUN 14 (9-16) mg/dL Creatinine 0.97 (0.5-1.4) mg/dL Estim Creat Clear Calc 89.3 Estimated GFR > 60 Random Glucose 131 H (60-115) mg/dL Calcium 8.6 D (8.4-10.2) mg/dL Total Bilirubin 4.2 H (0.0-1.0) mg/dL AST 122 H (5-37) U/L ALT 44 H (0-40) U/L Alkaline Phosphatase 168 H (39-117) U/L Total Protein 6.9 (6.5-8.0) g/dL Albumin 2.4 L (3.5-5.0) g/dL Independent Historian Clinical information obtained from an independent historian. History obtained from or confirmed by: Spouse and EMS External Record Review External record reviewed: Inpatient record, Outpatient record, Prior outpatient labs and Prior outpatient radiology Tests considered The following testing was considered but not selected: Considered CT scan of the abdomen verses abdominal ultrasound however this would not global director air and climate change at this time Prescription Management I considered prescription management with: Pain Medication and Antibiotic Chronic Conditions Patient?s care impacted by: Other (Liver disease) Social Determinants Patient?s care significantly limited by Social Determinants of Health including: Other Social Determinant of Health Critical Care Time Critical Care Time Critical Care Time: Yes Total Critical Care Time: 32 Attestation: I have personally provided critical care time exclusive of time spent on separately billable procedures. Time includes review of lab data, radiology results, discussion with consultants, and monitoring for potential decompensation. Intervention performed as documented. Discharge Plan Discharge Clinical Impression: Gross hematuria, Acute urinary retention Patient Disposition: Admitted As Inpatient
--- NOTE | 2024-08-12 12:29 | PC.NURSE ---
bladder scan completed displaying 530mL. provider notified/aware.
[2024-08-12 12:40] LABS: Albumin Level 2.4 g/dL (3.5-5.0); Alkaline Phosphatase 168 U/L (39-117); Anion Gap 10 (12-20); Aspartate Amino Transferase 122 U/L (5-37); Bilirubin Total 4.2 mg/dL (0.0-1.0); Blood Urea Nitrogen 14 mg/dL (9-16); Calcium 8.6 mg/dL (8.4-10.2); Carbon Dioxide 19 mmol/L (22-29); Chloride 107 mmol/L (96-108); Creatinine Clr Calc Pharmacy 89.3; Estimated Glomerular Filt Rate > 60; Glucose Random 131 mg/dL (60-115); Potassium 3.8 mmol/L (3.3-5.1); Sodium 132 mmol/L (135-145); Total Protein 6.9 g/dL (6.5-8.0)
[2024-08-12 12:53] LABS: Alanine Aminotransferase 44 U/L (0-40)
--- NOTE | 2024-08-12 13:28 | PC.NURSE ---
multiple attempts by this RN as well as PRITI Pang to place 3 way rojas catheter. unable to advance catheter at this time. large amount of bright red blood noted during attempt insertion. pt still unable to urinate at this time. pt seemingly uncomfortable. c/o 07/25 pain. provider notified/aware. urology/provider speaking in regards to plan of care.
[2024-08-12] MEDS: Morphine Sulfate 4 MG/ML CARTRIDGE IVPUSH (13:36)
[2024-08-12] MEDS: Lidocaine HCl 2 % Urojet 10 ML JEL.PF.APP TOPICAL ×2 (13:36)
--- NOTE | 2024-08-12 13:40 | PC.NURSE ---
20gIVplace in the left forearm - medication administered per provider order. effectiveness pending. plan of care ongoing.
--- NOTE | 2024-08-12 14:02 | PC.NURSE ---
large, thick, dark red clots dislodged from pt's penis. pt denies relief at this time. provider notified/aware.
--- NOTE | 2024-08-12 16:38 | P.CNUR_ITS ---
History of Present Illness Consult details Consult date: 08/12/24 Narrative: CC: Urinary retention/nursing unable to place Barber catheter HPI: 59-year-old male Prior history radiation of prostate for prostate cancer Liver disease with ascites and dysfunctional platelets Presented to hospital with bleeding from penis and unable to void Nursing staff have tried to place Barber multiple times Attempts made to pass Glidewire. Glidewire returned back to meatus. Bedside flexible cystoscopy performed. Proximal Urethral obliteration was found. Unable to detect pathway to bladder. Plan for operating room cystoscopy, bladder neck stricture dilatation, Barber catheter placement and clot evacuation Difficult Barber Placement CPT 42300 Review of Systems 2 Constitutional: Constitutional: Reports as per HPI and Reports no additional constitutional complaints Cardiovascular: Cardiovascular: Reports as per HPI and Reports no additional cardiovascular complaints Respiratory: Respiratory: Reports as per HPI and Reports no additional respiratory complaints Gastrointestinal: Gastrointestinal: Reports as per HPI and Reports no additional gastrointestinal complaints Genitourinary: Genitourinary: Reports as per HPI Musculoskeletal: Musculoskeletal: Reports no additional musculoskeletal complaints and Reports as per HPI Neurologic: Reports system reviewed and no additional complaints, except as documented and Reports as per HPI [facility] Past Medical History Medical History Congestive heart failure Anemia ETOH abuse Alcoholic cirrhosis PTSD (post-traumatic stress disorder) Hyponatremia Acute hyponatremia NATHANIEL (acute kidney injury) Acute metabolic encephalopathy Falls Alcoholic cirrhosis of liver with ascites Prostate cancer Depression Hyperlipidemia Hypertension Anxiety Social History Social History Household Members: Spouse Household Members Other:: fiancee Housing: Condominium Do you presently have visiting nurse or other home services: Yes Unable to assess alcohol history related to: Refusing to respond Alcohol intake: former Comment: bilateral wrist restraints for airway safety Patient Tobacco Use Status: Current everyday Tobacco user Tobacco use type: Cigarette Cigarette Packs Per Day: 3 Cigarettes Per Day: 60.0 Years Smoked: 25 Smoked in Last 30 Days: Yes e-Cigarette/Vaping Use: Never Used Second Hand Smoke Exposure: No Use of substances other than those prescribed or required for medical reasons: No Substance Use Type: Marijuana Advance Directives: Yes Advance Directives on File: Yes Advance Directives Date on File: 11/11/21 Do you have a plan to hurt others: No Plan service: No Current occupational status: disabled Meds Allergies Allergy/AdvReac Type Severity Reaction Status Date / Time Fish Containing Products Allergy Severe THROAT Verified 08/12/24 12:06 SWELLING peanut [Peanut] Allergy Severe THROAT Verified 08/12/24 12:06 SWELLING Home Medications ?Medication ?Instructions ?Recorded ?Confirmed ?Last Taken ?Type melatonin 10 mg tablet 10 mg PO BEDTIME Insomnia 11/13/23 08/08/24 Unknown History mirtazapine 15 mg tablet 15 mg PO BEDTIME 11/13/23 08/08/24 02/22/24 History quetiapine 50 mg tablet (Seroquel) 50 mg PO DAILY 03/20/24 08/08/24 Unknown History tamsulosin 0.4 mg capsule 0.4 mg PO BEDTIME 07/23/24 08/08/24 Unknown History topiramate 200 mg tablet 200 mg PO BID 07/23/24 08/08/24 Unknown History Physical Exam 2 Vital Signs: Vital Signs: Last Vital Signs Temp 97.7 F 08/12/24 12:09 Pulse 92 08/12/24 14:39 Resp 16 08/12/24 14:39 BP 121/67 08/12/24 14:39 Pulse Ox 99 08/12/24 14:39 O2 Del Method Room Air 08/12/24 14:39 BMI result Body Mass Index 30.2 Const: General: cooperative, healthy appearing, comfortable and no acute distress Orientation/consciousness: patient oriented x3 HEENT: Face and sinus: Yes normal facial exam Mouth: moist mucous membranes Neck: Neck: Yes normal visual inspection, Yes full ROM and Yes trachea midline Chest: Chest palpation & inspection: normal inspection of the chest Resp: Effort & Inspection: normal respiratory effort, able to speak in complete sentences and no respiratory distress GI: Inspection: Yes normal to inspection Back/Spine/Pelvis: Cervical Spine: normal cervical lordosis Thoracic/Lumbar Spine: thoracic and lumbar spine normal to inspection Skin: General skin exam: no rashes or lesions noted Neuro: General: patient oriented x3, tone normal and moves all extremities Extrem: General: Yes normal to inspection and Yes capillary refill normal Results Labs 08/12/24 12:15 08/12/24 12:15 Labs: Abnormal lab results 08/12/24 Range/Units 12:15 RBC 2.87 L (4.60-5.80) X10*6/uL Hgb 9.5 L (14.0-18.0) g/dl Hct 28.7 L (42.0-52.0) % MCV 100.0 H (80.0-98.0) fL MCH 33.1 H (27.0-33.0) pg RDW 20.9 H (11.0-16.0) % Plt Count 120 L D (160-400) X10*3/uL MPV 9.3 L (9.4-12.4) fL Immature Gran % (Auto) 0.7 H (0.0-0.4) % Neut % (Auto) 86.0 H (45-73) % Lymph % (Auto) 6.8 L (20-40) % Lymph # (Auto) 0.7 L (1.2-4.9) X10*3/uL Abs Immat Gran (auto) 0.07 H (0.00-0.03) X10*3/uL Absolute Neuts (auto) 8.5 H (2.0-8.3) x10*3/uL Sodium 132 L (135-145) mmol/L Carbon Dioxide 19 L (22-29) mmol/L Anion Gap 10 L (12-20) Random Glucose 131 H (60-115) mg/dL Total Bilirubin 4.2 H (0.0-1.0) mg/dL AST 122 H (5-37) U/L ALT 44 H (0-40) U/L Alkaline Phosphatase 168 H (39-117) U/L Albumin 2.4 L (3.5-5.0) g/dL Short CBC 08/12/24 Range/Units 12:15 WBC 9.9 (4.8-10.8) X10*3/uL Hgb 9.5 L (14.0-18.0) g/dl Hct 28.7 L (42.0-52.0) % Plt Count 120 L D (160-400) X10*3/uL BMP 08/12/24 12:15 Sodium 132 L Potassium 3.8 Chloride 107 Carbon Dioxide 19 L BUN 14 Creatinine 0.97 Calcium 8.6 D Liver Function 08/12/24 Range/Units 12:15 Total Bilirubin 4.2 H (0.0-1.0) mg/dL AST 122 H (5-37) U/L ALT 44 H (0-40) U/L Alkaline Phosphatase 168 H (39-117) U/L Albumin 2.4 L (3.5-5.0) g/dL All other labs normal. Assessment and Plan (1) Urethral obstruction: Status: Acute Plan Risks, benefits and alternatives to therapy were discussed. These include but are not limited to infection, bleeding, damage to local organs and tissues, need for further interventions. Anesthetic risks regarding cardiac arrhythmia, blood clots, and potential mortality were discussed. The patient understands the typical recovery time and the outpatient nature of the procedure. After consideration of these risks the patient gives full informed consent and they wish to move ahead with the procedure. Operating room cystoscopy, bladder neck dilatation, clot evacuation, Barber catheter placement Procedures Date of Service Date of Service: 08/12/24 Catheter Insertion (Urinary) Additional comments: Cystoscopy performed using a disposable Urovue digital 16 Mosotho cystoscope. Meatus circumcised bladder the meatus Urethra anterior and posterior urethra normal Prostatic Urethra obliterated. No passage possible CPT 01704
--- NOTE | 2024-08-12 16:49 | P.HPHOSP_ITS ---
History of Present Illness Date of Service: 08/12/24 Attending physician on admission: Haim Buchanannyu [facility] Chief Complaint: I just started bleeding from my penis and now I can't pee This is a 59-year-old male with a past medical history significant for prostate cancer with urethral obstruction, hypokalemia, decompensated alcoholic liver cirrhosis with ascites, esophageal varices with recent upper GI bleed, portal hypertensive gastropathy amongst others as documented below who presents to the emergency department today for an evaluation of hematuria and dysuria which patient reports began yesterday. Patient reports that he noted that he was ?bleeding a little bit from a penis when I was peeing? before he was discharged yesterday. Patient reports that ?immediately as soon as I got home the bleeding started to get worse and now I can not pee at all.? Patient is also reporting testicle swelling. Of note, patient was admitted to [facility] on 08/08/24 and discharged 08/11/24 for abdominal pain an upper GI bleed. Initial laboratory results: Hgb & Hct 9.5/28.7, platelets 120, Na 132, carbon dioxide 19, anion gap 10, random glucose 131, 20 bilirubin 4.2, AST/ALT 122/44, alk-phos 168, albumin 2.4. In the emergency department the above was performed, Urology was consulted and patient received 1 g ceftriaxone, 4 mg IV morphine sulfate and topical lidocaine was used for Barber catheter placement. The decision was made to admit patient for medical management. Review of Systems 2 Review of Systems: A complete 12 point review of systems was performed and are negative if not noted in HPI. [facility] Medical History Alcoholic hepatitis Thrombocytopenia Nausea & vomiting Hyponatremia Acute hypokalemia Alcohol dependence Ascites Congestive heart failure Anemia ETOH abuse Alcoholic cirrhosis PTSD (post-traumatic stress disorder) Hyponatremia Acute hyponatremia NATHANIEL (acute kidney injury) Acute metabolic encephalopathy [place] Alcoholic cirrhosis of liver with ascites Prostate cancer Depression Hyperlipidemia Hypertension Anxiety Social History Household Members: Significant Other Household Members Other:: fiancee Housing: Condominium Do you presently have visiting nurse or other home services: No (port drier's are going to be coming to the house.) Unable to assess alcohol history related to: Refusing to respond Alcohol intake: former Comment: bilateral wrist restraints for airway safety Patient Tobacco Use Status: Current everyday Tobacco user Tobacco use type: Cigarette Cigarette Packs Per Day: 3 Cigarettes Per Day: 3 Years Smoked: 20 Smoked in Last 30 Days: Yes e-Cigarette/Vaping Use: Never Used Patient Interested in Nicotine Replacement: No Patient Given Instructions on How to Stop Smoking: No Second Hand Smoke Exposure: No Use of substances other than those prescribed or required for medical reasons: No Substance Use Type: Marijuana Substance Use Type Other:: edible gummies Have you been hit, kicked, punched, or otherwise hurt by someone within the past year? If so, by whom?: No Do you feel safe in your current relationship?: Yes Is there a partner from a previous relationship who is making you feel unsafe now?: No Are you made to feel afraid or neglected: No Advance Directives: Yes Advance Directives on File: Yes Advance Directives Date on File: 11/11/21 Do you have a plan to hurt others: No Plan Recently lost weight without trying: No How much weight loss: Not applicable Eating poorly because of decreased appetite: No Nutrition screen score: 0 Nutrition Risks: No Nutritional Risk Poor oral hygiene: No service: No Current occupational status: disabled Meds Allergies Allergy/AdvReac Type Severity Reaction Status Date / Time Fish Containing Products Allergy Severe THROAT Verified 08/12/24 12:06 SWELLING peanut [Peanut] Allergy Severe THROAT Verified 08/12/24 12:06 SWELLING Home Medications ?Medication ?Instructions ?Recorded ?Confirmed ?Last Taken ?Type melatonin 10 mg tablet 10 mg PO BEDTIME Insomnia 11/13/23 08/12/24 08/11/24 History mirtazapine 15 mg tablet 15 mg PO BEDTIME 11/13/23 08/12/24 08/11/24 History quetiapine 50 mg tablet (Seroquel) 50 mg PO DAILY 03/20/24 08/12/24 08/11/24 History tamsulosin 0.4 mg capsule 0.4 mg PO BEDTIME 07/23/24 08/12/24 08/11/24 History topiramate 200 mg tablet 200 mg PO BID 07/23/24 08/12/24 08/11/24 History Physical Exam 2 Vital Signs and Narrative: Vital Signs: Last Vital Signs Temp 97.7 F 08/12/24 12:09 Pulse 92 08/12/24 14:39 Resp 16 08/12/24 14:39 BP 121/67 08/12/24 14:39 Pulse Ox 99 08/12/24 14:39 O2 Del Method Room Air 08/12/24 14:39 BMI result Body Mass Index 30.2 Const: Other: General: Appears older than stated age, observed sitting up in stretcher, answers questions accurately, pale and mildly jaundice, fiancee present at bedside Skin: No obvious open wounds, lesions wounds or sores Cardiology: Regular rate and rhythm, no murmurs, rubs, gallops or clicks, no JVD or carotid bruits appreciated Respiratory: Diminished lung sounds throughout Abdomen: Softly Distended abdomen, bowel sounds present : Dark red blood noted around penis and scrotum, scrotal swelling present Extremity: 3-4 +pitting edema noted bilateral lower extremities Neuro: Alert and oriented x3, no obvious focal deficits Psych: Calm, appropriate, follows commands, no agitation restlessness noted Results Labs 08/12/24 12:15 08/12/24 12:15 Labs: Laboratory Results - last 24 hr 08/12/24 12:15 MCV 100.0 H MCH 33.1 H MCHC 33.1 RDW 20.9 H Plt Count 120 L D MPV 9.3 L Immature Gran % (Auto) 0.7 H Neut % (Auto) 86.0 H Lymph % (Auto) 6.8 L [place] % (Auto) 5.7 Eos % (Auto) 0.2 Baso % (Auto) 0.6 Lymph # (Auto) 0.7 L [place] # (Auto) 0.6 Eos # (Auto) 0.0 Baso # (Auto) 0.1 Abs Immat Gran (auto) 0.07 H Absolute Neuts (auto) 8.5 H Absolute Nucleated RBC 0.000 Nucleated RBC % (auto) 0.0 Anion Gap 10 L Estim Creat Clear Calc 89.3 Estimated GFR > 60 Random Glucose 131 H Calcium 8.6 D Total Bilirubin 4.2 H AST 122 H ALT 44 H Alkaline Phosphatase 168 H Total Protein 6.9 Albumin 2.4 L Assessment and Plan (1) Acute urinary retention: Status: Acute (2) Urethral obstruction: Status: Acute (3) Gross hematuria: Status: Acute Plan ACUTE MEDICAL ISSUES: Acute urinary retention Urethral obstruction Gross hematuria - Patient presents today with complaints of urinary retention, gross hematuria, dysuria and was found to have a urethral obstruction. - Patient will be taken to the OR by urologist Dr. Mayo for cystoscopy, bladder neck dilation and clot evacuation with Barber catheter placement - Continue urological recommendations appreciated CHRONIC LONGSTANDING MEDICAL ISSUES: History of UGI bleed - Last admission patient underwent upper endoscopy by Dr. Brito that showed friable gastric mucosa consistent with moderate portal hypertensive gastropathy, slow oozing from gastropathy treated with hemo spray, grade 3 flap valve, congestive duodenopathy in the bulb consistent with erosive esophagitis with slow oozing treated with hemo spray applied, patient was treated with 48 hours of IV Protonix drip - Patient was discharged with Prilosec 40 mg p.o. b.i.d., Carafate 4 times daily and the recommendation of sustaining from alcohol intake - Hgb & Hct currently 9.5/28.7, platelets also 120 which are improved from previous records - Patient currently denying dark coffee-ground emesis Decompensated alcoholic liver cirrhosis - Patient has decompensated alcoholic liver cirrhosis, recent paracentesis with 07/24/2024 which did not reveal SPEP. - Patient is maintained on spironolactone and lactulose Transaminitis Hyperbilirubinemia Review of AST/ALT/alk-phos and total bilirubin sure that these chronically elevated, likely secondary to chronic alcoholism and liver cirrhosis. Hypertension - Normotensive on arrival. Not currently maintained on antihypertensives however does take furosemide as well as spironolactone. Hyperlipidemia - Not maintained on statin. Prostatism - Tamsulosin continued. Mood disorder - Quetiapine and mirtazapine continued OTHER: DVT prophylaxis -Chemical DVT prophylaxis currently contraindicated at this time as patient is experiencing hematuria and recently recovering from upper GI bleed. Intermittent compression boots ordered. Patient is a full code HCP patient lists as his ria Todd, his son is secondary HCP Heath Rico, Quality Stroke Does the patient have a stroke diagnosis?: No VTE Prior VTE?: No VTE Risk Level:: Medical - moderate - high VTE Device Contraindication: N/A - Device Ordered VTE Drug Contraindication: Treatment Not Indicated
[2024-08-12] MEDS: cefTRIAXone sodium 1 GM VIAL IVPUSH (16:51)
--- NOTE | 2024-08-12 17:01 | PC.NURSE ---
urology bedside/unable to place rojas catheter at this time despite multiple interventions. pt notified/aware of care in regards to going to the OR at this time. plan of care ongoing.
[2024-08-12 17:09] LABS: Lactic Acid 1.6 mmol/L (0.5-2.0)
--- NOTE | 2024-08-12 17:35 | PC.NURSE ---
another 18gIV placed in the right AC. report given to PACU, RN at this time. pt being transported to OR.
--- NOTE | 2024-08-12 18:14 | PHA.MEDREC ---
Addendum entered by Jl Camara [facility] 08/12/24 18:33: MED REC CHECK BY [facility] Original Note: Pharmacy Consult ? Medication Reconciliation Pharmacy has completed the medication reconciliation. Tried to speak to patient, however he was transferred to the OR. called and spoke to patients girlfriend Laryaracelis to confirm med list. Catalino stated patient was [place] [facility] and there was no change in medications.Utilized discharge packet from 08/11/24 to confirm med list.
--- NOTE | 2024-08-12 18:31 | HO.ANESPROP2 ---
HPI - Anesthesia Eval Consult details Narrative: Urinary bladder outlet obstruction, blood clots PMFSH Active Problems Active Problems: All Active Problems Urethral obstruction (Acute) Acute urinary retention (Acute) Gross hematuria (Acute) Anemia (Acute) Acute upper gastrointestinal bleeding (Acute) Hematemesis (Acute) Abdominal pain (Acute) Dysphagia (Acute) Acute respiratory failure with hypoxia (Acute) Septic shock (Acute) Bladder neck obstruction (Acute) History of prostate cancer (Acute) Acidosis, lactic (Acute) Hypokalemia (Acute) Esophageal varices (Acute) Anemia (Acute) Acute upper gastrointestinal bleeding (Acute) Acute lactic acidosis (Acute) Hypokalemia (Acute) Esophageal varices (Acute) Portal hypertensive gastropathy (Acute) Erosive esophagitis (Acute) Anemia (Acute) Acute hyponatremia (Acute) Acute GI bleeding (Acute) Encephalopathy (Acute) NATHANIEL (acute kidney injury) (Acute) Anasarca (Acute) History of radiation therapy (Acute) Fatty liver (Acute) Hyponatremia (Acute) Alcoholic cirrhosis of liver with ascites (Acute) Hypertension (Acute) Hyperlipidemia (Acute) Depression (Acute) Anxiety (Acute) Past Medical History Medical History Alcoholic hepatitis Thrombocytopenia Nausea & vomiting Hyponatremia Acute hypokalemia Alcohol dependence Ascites Congestive heart failure Anemia ETOH abuse Alcoholic cirrhosis PTSD (post-traumatic stress disorder) Hyponatremia Acute hyponatremia NATHANIEL (acute kidney injury) Acute metabolic encephalopathy [place] Alcoholic cirrhosis of liver with ascites Prostate cancer Depression Hyperlipidemia Hypertension Anxiety Family History Family history of problems with anesthesia: No Surgical History History of Problems with Anesthesia: No Social History Social History Household Members: Spouse Household Members Other:: fiancee Housing: Condominium Do you presently have visiting nurse or other home services: Yes Unable to assess alcohol history related to: Refusing to respond Alcohol intake: former Comment: bilateral wrist restraints for airway safety Patient Tobacco Use Status: Current everyday Tobacco user Tobacco use type: Cigarette Cigarette Packs Per Day: 3 Cigarettes Per Day: 60.0 Years Smoked: 20 Smoked in Last 30 Days: Yes e-Cigarette/Vaping Use: Never Used Second Hand Smoke Exposure: No Use of substances other than those prescribed or required for medical reasons: Yes Substance Use Type: Marijuana Substance Use Type Other:: edible gummies Advance Directives: Yes Advance Directives on File: Yes Advance Directives Date on File: 11/11/21 Do you have a plan to hurt others: No Plan service: No Current occupational status: disabled Meds Allergies Allergy/AdvReac Type Severity Reaction Status Date / Time Fish Containing Products Allergy Severe THROAT Verified 08/12/24 12:06 SWELLING peanut [Peanut] Allergy Severe THROAT Verified 08/12/24 12:06 SWELLING Active Medications: Current Medications Acetaminophen (Acetaminophen 325 Mg Tablet) 650 mg PO Q6H PRN PRN Reason: Pain, Mild (Pain Scale 1-3), fever or headache Furosemide (Furosemide 20 Mg Tablet) 20 mg PO DAILY [facility]; Protocol Lactulose (Lactulose 20 Gm/30 Ml Solution) 20 gm PO BID [facility] Mirtazapine (Mirtazapine 15 Mg Tablet) 15 mg PO BEDTIME [facility] Non-Formulary Medication (Magnesium) 200 mg PO DAILY [facility] Omeprazole (Omeprazole 40 Mg Capsule.Dr) 40 mg PO BID@0630,1630 [facility] Ondansetron HCl (Ondansetron Hcl 4 Mg/2 Ml Vial) 4 mg IVPUSH Q8H PRN PRN Reason: Nausea and Vomiting Quetiapine Fumarate (Quetiapine Fumarate 50 Mg Tablet) 50 mg PO DAILY [facility] Senna (Sennosides 8.6 Mg Tablet) 17.2 mg PO BEDTIME PRN PRN Reason: constipation Sodium Chloride (0.9 % Sodium Chloride Flush 3 Ml Syringe) 3 ml IVFLUSH QSHIFT [facility] Spironolactone (Spironolactone 25 Mg Tablet) 50 mg PO QAM [facility]; Protocol Sucralfate (Sucralfate Oral Suspension 1 Gm/10 Ml Oral.Susp) 1 gm PO QIDACHS [facility] Tamsulosin HCl (Tamsulosin Hcl 0.4 Mg Capsule) 0.4 mg PO BEDTIME [facility] Topiramate (Topiramate 100 Mg Tablet) 200 mg PO BID [facility] Home Medications ?Medication ?Instructions ?Recorded ?Confirmed ?Last Taken ?Type melatonin 10 mg tablet 10 mg PO BEDTIME Insomnia 11/13/23 08/12/24 08/11/24 History mirtazapine 15 mg tablet 15 mg PO BEDTIME 11/13/23 08/12/24 08/11/24 History quetiapine 50 mg tablet (Seroquel) 50 mg PO DAILY 03/20/24 08/12/24 08/11/24 History tamsulosin 0.4 mg capsule 0.4 mg PO BEDTIME 07/23/24 08/12/24 08/11/24 History topiramate 200 mg tablet 200 mg PO BID 07/23/24 08/12/24 08/11/24 History Exam Height,Weight and Vital Signs: Height 5 ft 8 in Weight 90 kg Last Vital Signs Temp 98.9 F 08/12/24 17:48 Pulse 95 08/12/24 17:48 Resp 18 08/12/24 17:48 BP 123/66 08/12/24 17:48 Pulse Ox 98 08/12/24 17:48 O2 Del Method Room Air 08/12/24 17:48 Pertinent Lab Results Pertinent Lab Results: Laboratory Tests 08/12/24 08/12/24 12:15 16:54 WBC 9.9 RBC 2.87 L Hgb 9.5 L Hct 28.7 L MCV 100.0 H MCH 33.1 H MCHC 33.1 RDW 20.9 H Plt Count 120 L D MPV 9.3 L Immature Gran % (Auto) 0.7 H Neut % (Auto) 86.0 H Lymph % (Auto) 6.8 L [place] % (Auto) 5.7 Eos % (Auto) 0.2 Baso % (Auto) 0.6 Lymph # (Auto) 0.7 L [place] # (Auto) 0.6 Eos # (Auto) 0.0 Baso # (Auto) 0.1 Abs Immat Gran (auto) 0.07 H Absolute Neuts (auto) 8.5 H Absolute Nucleated RBC 0.000 Nucleated RBC % (auto) 0.0 Sodium 132 L Potassium 3.8 Chloride 107 Carbon Dioxide 19 L Anion Gap 10 L BUN 14 Creatinine 0.97 Estim Creat Clear Calc 89.3 Estimated GFR > 60 Random Glucose 131 H Lactic Acid 1.6 Calcium 8.6 D Total Bilirubin 4.2 H AST 122 H ALT 44 H Alkaline Phosphatase 168 H Total Protein 6.9 Albumin 2.4 L Airway Mallampati Class: II TM Dist: >3cm Neck ROM: Full Loose/Missing/Broken Teeth: No Heart: RRR Lungs: CTA Assessment and Plan Assessment Anesthesia Assessment: Anesthesia Plan Discussed and Chart Reviewed Final Anesthetic Review Family History of Problems with Anesthesia: No History of Problems with Anesthesia: No NPO: Yes ASA Class: III and Emergency Final Preanesthetic Review: No Changes in Pt Med Stat, Meds/Allgs Chart Reviewed, Consent Obtained/Reviewed and Anes Risks/Benef Reviewed Patient Risk: Intermediate Procedure Risk: Low Anesthetic Plan Anesthetic Plan: GA Disposition: Standard PACU
--- NOTE | 2024-08-12 18:37 | MHC.SHP ---
Pre-Procedural Eval Section A - 24 Hr Update-Section A only Date of Service: 08/12/24 The patient is an INPATIENT: Yes Changes since office visit: No Cold of Flu in the past 2 weeks, No New Medical Problems, No Changes in Medication and No Patient answered all questions The patient has been examined within 24 hours of the surgical procedure. The History & Physical has been completed within 30 days and I have reviewed it.: Yes Section B - Complete if H&P > 30 days Chief Complaint: Gross hematuria/retention Allergies: Allergies Allergy/AdvReac Type Severity Reaction Status Date / Time Fish Containing Products Allergy Severe THROAT Verified 08/12/24 12:06 SWELLING peanut [Peanut] Allergy Severe THROAT Verified 08/12/24 12:06 SWELLING Exam Exam Comment: Cystoscopy, bladder neck dilatation, clot evacuation Plan Diagnosis/Plan: Unchanged I have reviewed the history and physical and performed a pertinent physical examination on my patient. No changes have occurred unless specified. Time Spent With Patient Time: Total time managing care of this patient today ____ minutes.
--- NOTE | 2024-08-12 19:34 | W.PM.OPN ---
Operative Note Operative Note Date of Service: 08/12/24 Narrative: PreOperative Diagnosis: Urinary retention, bladder neck stricture, clot retention Post Operative Diagnosis: Same Procedure: Cystoscopy, bladder neck stricture dilatation, clot evacuation from bladder Surgeon: Dr Zechariah Mayo Anesthesia: LMA Indications for procedure: Presents through emergency room with inability to void. Attempt to place Barber catheter by ER staff. Bedside cystoscopy showed obliteration of bladder neck with possible mucosal flap and false type passage Procedure: After informed consent was verified the patient was brought to the operating room and placed in a supine position. Anesthesia was administered per protocol. The patient was prepped and draped in a sterile fashion. Safety pause time-out was performed. Antibiotics being given. Using a short ureteral scope this was guided down the urethra. False passage seen. There was a small opening to the upper left proximally 10 o'clock position of the urethra. A sensor guidewire was fed and was able to be advanced substantially into the bladder. The ureteral scope was removed. Using a set of urethral dilators this stricture was dilated to 22 Stateless. An attempt was made to place a 22 Stateless cystoscope. There was stiffness through the prostate and we were unable to rotate the cystoscope. Using a 22 Stateless silicon catheter this was advanced over the wire into the bladder. The wire was removed. The bladder was then irrigated. Very minimal clots were obtained. A substantial amount of urine was able to be drained. A decision made to leave the 22 Stateless silicone catheter. 10 cc placed in the balloon. Good output was obtained. Patient tolerated the procedure. Was extubated in operating room transferred in stable condition to the recovery area. Pathology: Drains: Twenty-two Stateless silicon catheter
[2024-08-12] MEDS: ondansetron HCL 4 MG/2 ML VIAL IVPUSH (20:29)
[2024-08-12] MEDS: Mirtazapine 15 MG TABLET PO (21:07)
[2024-08-12] MEDS: Spironolactone 25 MG TABLET 50 MG PO (21:07)
[2024-08-12] MEDS: Sucralfate Oral Suspension 1 GM/10 ML ORAL.SUSP PO (21:07)
[2024-08-12] MEDS: Tamsulosin HCL 0.4 MG CAPSULE PO (21:08)
[2024-08-12] MEDS: Topiramate 100 MG TABLET 200 MG PO (21:08)
[2024-08-12] MEDS: Lactulose 20 GM/30 ML SOLUTION PO (21:08)
--- NOTE | 2024-08-13 00:57 | PC.NURSE ---
Addendum entered by Jennifer Gao RN 08/13/24 05:18: Around 4am, pt c/o Bladder discomfort similar ELECTRIC METER TESTER, noted with lower abd tenderness, Barber cath output is getting red , total output =100ml since arrival, bladder irrigation done with small clots obtained, Dr. Cummins was notified, ordered Pyridium and given, also advised to followup with urologist in am. Another 200ml urine came out after irrigation, pt had a little relief. Original Note: Pt arrived from PACU at around 1999, VSS, Barber draining dark yellow urine, pt denies any pain, pt was nauseous and vomited greenish liquid after transfer to bed, noted in PACU report that Zofran IV was given at 1900, Dr. Mayo was paged, okayed to given another dose of Zofran IV, med given, pt was relieved after.
[2024-08-13 03:39] VITALS: BP 110/55; PULSE 87; RESP 18; TEMP 36.1; O2SAT 100
[2024-08-13] MEDS: Phenazopyridine HCL 200 MG TABLET PO (05:17)
[2024-08-13] MEDS: Omeprazole 40 MG CAPSULE.DR PO ×2 (05:18→15:54)
[2024-08-13 05:58] LABS: Hematocrit 26.7 % (42.0-52.0); Hemoglobin 8.7 g/dl (14.0-18.0); Mean Corpuscular HGB Conc 32.6 g/dl (31.0-36.0); Mean Corpuscular Hemoglobin 32.2 pg (27.0-33.0); Mean Corpuscular Volume 98.9 fL (80.0-98.0); Mean Platelet Volume 9.7 fL (9.4-12.4); Platelet Count 104 X10*3/uL (160-400); Red Cell Distribution Width 20.7 % (11.0-16.0)
[2024-08-13 06:03] LABS: Anion Gap 12 (12-20); Blood Urea Nitrogen 14 mg/dL (9-16); Calcium 7.9 mg/dL (8.4-10.2); Carbon Dioxide 18 mmol/L (22-29); Chloride 109 mmol/L (96-108); Creatinine Clr Calc Pharmacy 82.5; Estimated Glomerular Filt Rate > 60; Glucose Random 110 mg/dL (60-115); Potassium 5.2 mmol/L (3.3-5.1); Sodium 134 mmol/L (135-145)
[2024-08-13 07:42] VITALS: BP 110/55; PULSE 85; RESP 12; TEMP 36.5; O2SAT 100
[2024-08-13] MEDS: QUEtiapine Fumarate 50 MG TABLET PO (08:55)
[2024-08-13] MEDS: Topiramate 100 MG TABLET 200 MG PO ×2 (08:55→19:48)
[2024-08-13] MEDS: Magnesium Oxide 400 MG TABLET 200 MG PO (08:55)
[2024-08-13] MEDS: Furosemide 20 MG TABLET PO (08:55)
[2024-08-13] MEDS: Spironolactone 25 MG TABLET 50 MG PO (08:55)
[2024-08-13] MEDS: 0.9 % Sodium Chloride Flush 3 ML SYRINGE IVFLUSH ×3 (08:56→23:54)
[2024-08-13] MEDS: Sucralfate Oral Suspension 1 GM/10 ML ORAL.SUSP PO ×3 (08:56→19:48)
[2024-08-13] MEDS: Lactulose 20 GM/30 ML SOLUTION PO ×2 (08:56→19:48)
--- NOTE | 2024-08-13 09:40 | HO.POSTANES ---
Post Anesthesia Evaluation Post Anesthesia Evaluation Date of Service: 08/12/24 Vital Signs: Vital Signs Temp Pulse Resp BP Pulse Ox O2 Del Method 08/13/24 07:42 97.7 F 85 12 110/55 L 100 Room Air 08/13/24 03:39 97.0 F 87 18 110/55 L 100 Room Air 08/12/24 23:26 97.1 F 87 18 119/58 L 100 Anesthesia: General Mental Status: Awake Pain Control: Satisfactory Nausea/Vomiting: None Hydration: Adequate Anesthesia-Related Issues: No Anes. Related Issues
[2024-08-13] MEDS: Morphine Sulfate Immed Release 15 MG TABLET PO (10:44)
[2024-08-13 10:45] LABS: Appearance Urine Cloudy; Color Urine Orange; Leukocyte Esterase Urine Large (3+) (Negative); UMIC TRIGGER UACC YES; Urine Blood Large (3+) (Negative)
[2024-08-13 11:09] LABS: Bacteria Urine Trace (None Seen); Hyaline Casts Urine 0-2 /LPF (0-2); RBC Urine >20 /HPF (0-2); Squamous Epithelial Cell Urine 0-2 /HPF (0-2); WBC Clumps Urine Present
[2024-08-13 11:13] LABS: UACC Culture Trigger YES
[2024-08-13 11:36] VITALS: BP 100/57; PULSE 99; RESP 18; TEMP 37.1; O2SAT 97
--- NOTE | 2024-08-13 14:03 | MHC.CM.PN ---
IMM 08/13. Pt self-care, lives at home with his fiance who will transport him home at discharge. Pt uses a cane and a walker. HCP on file and verified. PCP: Dr. Fransisco Garrett
--- NOTE | 2024-08-13 15:28 | HO.PM.IMPN ---
Subjective Subjective Date of Service: 08/13/24 Interval History: has hematuria ,clot few some pain Review of Systems more drakish pinkish urine no fevers Physical Exam Vital Signs: Vital Signs: Last Vital Signs Temp 98.7 F 08/13/24 11:36 Pulse 99 08/13/24 11:36 Resp 18 08/13/24 11:36 BP 100/57 L 08/13/24 11:36 Pulse Ox 97 08/13/24 11:36 O2 Del Method Room Air 08/13/24 11:36 BMI result Body Mass Index 30.2 Appearance: Alert.? Oriented X3.? cvs: rrr, [id number] , no murmur res: clear to auscultation ,no rhonchii or wheezing abd: no rebound or guarding ,nt, bs present. ext pulses present , no cyanosis . neuro: axo3 , nonfocal. Objective Data Active Medications Acetaminophen (Acetaminophen 325 Mg Tablet) 650 mg PO Q6H PRN PRN Reason: Pain, Mild (Pain Scale 1-3), fever or headache Furosemide (Furosemide 20 Mg Tablet) 20 mg PO DAILY [facility]; Protocol Last Admin: 08/13/24 08:55 Dose: 20 mg Documented By: LYLE Lactulose (Lactulose 20 Gm/30 Ml Solution) 20 gm PO BID [facility] Last Admin: 08/13/24 08:56 Dose: 20 gm Documented By: LYLE Magnesium Oxide (Magnesium Oxide 400 Mg Tablet) 200 mg PO DAILY [facility] Last Admin: 08/13/24 08:55 Dose: 200 mg Documented By: LYLE Mirtazapine (Mirtazapine 15 Mg Tablet) 15 mg PO BEDTIME [facility] Last Admin: 08/12/24 21:07 Dose: 15 mg Documented By: NIDA Naloxone HCl (Naloxone Hcl 0.4 Mg/Ml Vial) 0.04 mg IVPUSH Q5M PRN PRN Reason: Excessive sedation or RR < 8 Omeprazole (Omeprazole 40 Mg Capsule.) 40 mg PO BID@0630,1630 [facility] Last Admin: 08/13/24 05:18 Dose: 40 mg Documented By: NIDA Ondansetron HCl (Ondansetron Hcl 4 Mg/2 Ml Vial) 4 mg IVPUSH Q8H PRN PRN Reason: Nausea and Vomiting Last Admin: 08/12/24 20:29 Dose: 4 mg Documented By: NIDA Comments: last dose given at 1900 at PACU,another dose okayed by Dr. Mayo Quetiapine Fumarate (Quetiapine Fumarate 50 Mg Tablet) 50 mg PO DAILY [facility] Last Admin: 08/13/24 08:55 Dose: 50 mg Documented By: LYLE Senna (Sennosides 8.6 Mg Tablet) 17.2 mg PO BEDTIME PRN PRN Reason: constipation Sodium Chloride (0.9 % Sodium Chloride Flush 3 Ml Syringe) 3 ml IVFLUSH QSHIFT [facility] Last Admin: 08/13/24 08:56 Dose: 3 ml Documented By: LYLE Spironolactone (Spironolactone 25 Mg Tablet) 50 mg PO DAILY [facility]; Protocol Last Admin: 08/13/24 08:55 Dose: 50 mg Documented By: LYLE Sucralfate (Sucralfate Oral Suspension 1 Gm/10 Ml Oral.Susp) 1 gm PO QIDACHS [facility] Last Admin: 08/13/24 13:02 Dose: Not Given Documented By: LYLE Non-Admin Reason: Patient Refused Tamsulosin HCl (Tamsulosin Hcl 0.4 Mg Capsule) 0.4 mg PO BEDTIME [facility] Last Admin: 08/12/24 21:08 Dose: 0.4 mg Documented By: NIDA Topiramate (Topiramate 100 Mg Tablet) 200 mg PO BID [facility] Last Admin: 08/13/24 08:55 Dose: 200 mg Documented By: LYLE Labs 08/13/24 05:38 08/13/24 05:38 Labs: Laboratory Results - last 24 hr 08/12/24 08/12/24 08/13/24 16:54 20:47 05:38 MCV 98.9 H MCH 32.2 MCHC 32.6 RDW 20.7 H Plt Count 104 L MPV 9.7 Absolute Nucleated RBC 0.000 Nucleated RBC % (auto) 0.0 Anion Gap 12 Estim Creat Clear Calc 82.5 Estimated GFR > 60 Random Glucose 110 Lactic Acid 1.6 Calcium 7.9 L D Urine Color Urine Appearance Urine pH Ur Specific [place] Urine Protein Urine Glucose (UA) Urine Ketones Urine Blood Urine Nitrite Ur Leukocyte Esterase Urine RBC Urine WBC Urine WBC Clumps Ur Squamous Epith Cells Urine Bacteria Hyaline Casts Blood Type A Positive Antibody Screen NEGATIVE 08/13/24 10:26 MCV MCH MCHC RDW Plt Count MPV Absolute Nucleated RBC Nucleated RBC % (auto) Anion Gap Estim Creat Clear Calc Estimated GFR Random Glucose Lactic Acid Calcium Urine Color [place] Urine Appearance Cloudy Urine pH 5.0 Ur Specific [place] 1.020 Urine Protein TNP Urine Glucose (UA) TNP Urine Ketones TNP Urine Blood Large (3+) H Urine Nitrite TNP Ur Leukocyte Esterase Large (3+) H Urine RBC >20 H Urine WBC 11-20 H Urine WBC Clumps Present Ur Squamous Epith Cells 0-2 Urine Bacteria Trace Hyaline Casts 0-2 Blood Type Antibody Screen Assessment and Plan (1) Gross hematuria: Status: Acute (2) Urethral obstruction: Status: Acute Assessment and Plan: Acute urinary retention /Urethral obstruction /Gross hematuria on 08/12/24 -s/p Cystoscopy, bladder neck stricture dilatation, clot evacuation from bladder has hematuria ,clots,some pain continue rojas urology follow up. CHRONIC LONGSTANDING MEDICAL ISSUES: History of UGI bleed - Last admission patient underwent upper endoscopy by Dr. Brito that showed friable gastric mucosa consistent with moderate portal hypertensive gastropathy, slow oozing from gastropathy treated with hemo spray, grade 3 flap valve, congestive duodenopathy in the bulb consistent with erosive esophagitis with slow oozing treated with hemo spray applied, patient was treated with 48 hours of IV Protonix drip - Patient was discharged with Prilosec 40 mg p.o. b.i.d., Carafate 4 times daily and the recommendation of sustaining from alcohol intake - Hgb & Hct currently 9.5/28.7, platelets also 120 which are improved from previous records - Patient currently denying dark coffee-ground emesis Decompensated alcoholic liver cirrhosis - Patient has decompensated alcoholic liver cirrhosis, recent paracentesis with 07/24/2024 which did not reveal SPEP. - Patient is maintained on spironolactone and lactulose Transaminitis Hyperbilirubinemia Review of AST/ALT/alk-phos and total bilirubin sure that these chronically elevated, likely secondary to chronic alcoholism and liver cirrhosis. Hypertension - Normotensive on arrival. Not currently maintained on antihypertensives however does take furosemide as well as spironolactone. Hyperlipidemia - Not maintained on statin. Prostatism - Tamsulosin continued. Mood disorder - Quetiapine and mirtazapine continued OTHER: DVT prophylaxis -Chemical DVT prophylaxis currently contraindicated at this time as patient is experiencing hematuria and recently recovering from upper GI bleed. Intermittent compression boots ordered. Ongoing need for hospitlisation- persistent hematuria -need h/h monitering , hematuria,urology followup HCP patient lists as his ria Todd, his son is secondary HCP Heath Rico, Quality Stroke Does the patient have a stroke diagnosis?: No VTE Prior VTE?: No VTE Risk Level:: Medical - moderate - high VTE Device Contraindication: N/A - Device Ordered VTE Drug Contraindication: Treatment Not Indicated
[2024-08-13 15:32] VITALS: BP 113/59; PULSE 104; RESP 16; TEMP 36.8; O2SAT 97
[2024-08-13] MEDS: hydrOXYzine HCL 25 MG TABLET PO (18:04)
[2024-08-13 19:29] VITALS: BP 111/58; PULSE 89; RESP 18; TEMP 36.5; O2SAT 98
[2024-08-13] MEDS: Mirtazapine 15 MG TABLET PO (19:48)
[2024-08-13] MEDS: Tamsulosin HCL 0.4 MG CAPSULE PO (19:48)
[2024-08-14] VITALS (20 sets, daily range): BP systolic 98–147; BP diastolic 51–79; PULSE 79–113; RESP 12–20; TEMP 36.2–37.5; O2SAT 97–100
[2024-08-14] MEDS: Acetaminophen 325 MG TABLET 650 MG PO ×2 (02:07→13:07)
[2024-08-14] MEDS: ondansetron HCL 4 MG/2 ML VIAL IVPUSH ×2 (02:17→14:19)
[2024-08-14] MEDS: Omeprazole 40 MG CAPSULE.DR PO (05:50)
[2024-08-14] MEDS: Sucralfate Oral Suspension 1 GM/10 ML ORAL.SUSP PO ×2 (07:33→13:07)
[2024-08-14] MEDS: QUEtiapine Fumarate 50 MG TABLET PO (07:34)
[2024-08-14] MEDS: Spironolactone 25 MG TABLET 50 MG PO (07:34)
[2024-08-14] MEDS: Topiramate 100 MG TABLET 200 MG PO (07:34)
[2024-08-14] MEDS: Magnesium Oxide 400 MG TABLET 200 MG PO (07:34)
[2024-08-14] MEDS: Furosemide 20 MG TABLET PO (07:34)
[2024-08-14] MEDS: 0.9 % Sodium Chloride Flush 3 ML SYRINGE IVFLUSH ×2 (07:41→23:29)
[2024-08-14 09:12] LABS: Hematocrit 23.5 % (42.0-52.0); Hemoglobin 7.7 g/dl (14.0-18.0)
[2024-08-14 09:30] LABS: Potassium 3.7 mmol/L (3.3-5.1)
--- NOTE | 2024-08-14 11:26 | MHC.CM.PN ---
EMR reviewed and per MD rounds, pt is not medically cleared for discharge due to management of hematuria requiring urology follow up.
--- NOTE | 2024-08-14 13:35 | PC.NURSE ---
Patient vomiting 275cc bright red blood. Patient alert and oriented, denies any abdominal discomfort at this time. BP: 117/65, HR 100. MD at bedside for evaluation. New orders for GI consult, IV protonix drip, IV Ocetotide, STAT CBC, and NPO order.
[2024-08-14] MEDS: Pantoprazole Sodium 80 MG in 0.9 % Sodium Chloride 80 ML 10 MG IV (14:10)
[2024-08-14 14:11] LABS: Hematocrit 24.9 % (42.0-52.0); Hemoglobin 8.3 g/dl (14.0-18.0); Mean Corpuscular HGB Conc 33.3 g/dl (31.0-36.0); Mean Corpuscular Hemoglobin 33.2 pg (27.0-33.0); Mean Corpuscular Volume 99.6 fL (80.0-98.0); Mean Platelet Volume 9.4 fL (9.4-12.4); Platelet Count 106 X10*3/uL (160-400); Red Cell Distribution Width 19.9 % (11.0-16.0); White Blood Count 8.6 X10*3/uL (4.8-10.8)
--- NOTE | 2024-08-14 14:16 | P.CONCC_ITS ---
History of Present Illness Data of Consult Service Date: 08/14/24 Primary Care Provider: Fransisco Soria MD HPI Reason for consult: Hematemesis 59-year-old gentleman with past medical history of PMH of alcohol use disorder with alcoholic liver cirrhosis with prior admissions for hematemesis, mood disorder, gastroesophageal reflux disease, mood disorder, BPH with 2 endoscopies this month for upper GI bleed showing portal hypertensive gastropathy and severe esophagitis. He was admitted to the hospital yesterday due to hematuria. This afternoon patient had 1 episode of hematemesis so MICU was consulted. Review of Systems 2 Review of Systems: Yes Unobtainable due to mental condition Constitutional: Constitutional: Denies daytime sleepiness and Denies difficulty sleeping Eyes: Eyes: Denies exophthalmos and Denies change in vision ENT: Denies Normal hearing present and Denies bleeding gums Cardiovascular: Cardiovascular: Denies Abdominal Cramping after Meds and Denies Abdominal Distension Respiratory: Respiratory: Denies change in phlegm color, Denies chest congestion and Denies cough Gastrointestinal: Gastrointestinal: Denies abdominal pain, Denies melena and Denies bloating Genitourinary: Genitourinary: Denies change in libido and Reports hematuria Musculoskeletal: Musculoskeletal: Denies back pain and Denies myalgias Neurologic: Denies Normal hearing present, Denies Neuro-related abnormal movements and Denies Abnormal speech present Psychiatric: Psychiatric: Denies change in libido Endocrine: Endocrine: Denies change in libido [facility] Past Medical History Medical History Alcoholic hepatitis Thrombocytopenia Nausea & vomiting Hyponatremia Acute hypokalemia Alcohol dependence Ascites Congestive heart failure Anemia ETOH abuse Alcoholic cirrhosis PTSD (post-traumatic stress disorder) Hyponatremia Acute hyponatremia NATHANIEL (acute kidney injury) Acute metabolic encephalopathy Falls Alcoholic cirrhosis of liver with ascites Prostate cancer Depression Hyperlipidemia Hypertension Anxiety Social History Social History Household Members: Significant Other Household Members Other:: fiancee Housing: Condominium Do you presently have visiting nurse or other home services: No (hotel receptionist's are going to be coming to the house.) Unable to assess alcohol history related to: Refusing to respond Alcohol intake: former Comment: bilateral wrist restraints for airway safety Patient Tobacco Use Status: Current everyday Tobacco user Tobacco use type: Cigarette Cigarette Packs Per Day: 3 Cigarettes Per Day: 3 Years Smoked: 20 Smoked in Last 30 Days: Yes e-Cigarette/Vaping Use: Never Used Patient Interested in Nicotine Replacement: No Patient Given Instructions on How to Stop Smoking: No Second Hand Smoke Exposure: No Use of substances other than those prescribed or required for medical reasons: No Substance Use Type: Marijuana Substance Use Type Other:: edible gummies Currently Displaying Signs/Symptoms of Drug Intoxication Withdrawal: No Have you been hit, kicked, punched, or otherwise hurt by someone within the past year? If so, by whom?: No Do you feel safe in your current relationship?: Yes Is there a partner from a previous relationship who is making you feel unsafe now?: No Are you made to feel afraid or neglected: No Advance Directives: Yes Advance Directives on File: Yes Advance Directives Date on File: 11/11/21 Do you have a plan to hurt others: No Plan Recently lost weight without trying: No How much weight loss: Not applicable Eating poorly because of decreased appetite: No Nutrition screen score: 0 Nutrition Risks: No Nutritional Risk Poor oral hygiene: No service: No Current occupational status: disabled Meds Allergies Allergy/AdvReac Type Severity Reaction Status Date / Time Fish Containing Products Allergy Severe THROAT Verified 08/12/24 12:06 SWELLING peanut [Peanut] Allergy Severe THROAT Verified 08/12/24 12:06 SWELLING Active Medications: Current Medications Acetaminophen (Acetaminophen 325 Mg Tablet) 650 mg PO Q6H PRN PRN Reason: Pain, Mild (Pain Scale 1-3), fever or headache Last Admin: 08/14/24 13:07 Dose: 650 mg Furosemide (Furosemide 20 Mg Tablet) 20 mg PO DAILY KULWANT; Protocol Last Admin: 08/14/24 07:34 Dose: 20 mg Octreotide Acetate 500 mcg/ (Sodium Chloride) 501 mls @ 50.1 mls/hr IVCONT .Q10H [facility] Pantoprazole Sodium 80 mg/ (Sodium Chloride) 100 mls @ 10 mls/hr IV .Q10H KUL[facility]ANT Last Admin: 08/14/24 14:10 Dose: 8 mg/hr, 10 mls/hr Lactulose (Lactulose 20 Gm/30 Ml Solution) 20 gm PO BID KULWANT Last Admin: 08/14/24 07:38 Dose: Not Given Magnesium Oxide (Magnesium Oxide 400 Mg Tablet) 200 mg PO DAILY [facility] Last Admin: 08/14/24 07:34 Dose: 200 mg Mirtazapine (Mirtazapine 15 Mg Tablet) 15 mg PO BEDTIME [facility] Last Admin: 08/13/24 19:48 Dose: 15 mg Naloxone HCl (Naloxone Hcl 0.4 Mg/Ml Vial) 0.04 mg IVPUSH Q5M PRN PRN Reason: Excessive sedation or RR < 8 Ondansetron HCl (Ondansetron Hcl 4 Mg/2 Ml Vial) 4 mg IVPUSH Q8H PRN PRN Reason: Nausea and Vomiting Last Admin: 08/14/24 02:17 Dose: 4 mg Pantoprazole Sodium (Pantoprazole Sodium 40 Mg/10 Ml Vial) 80 mg IVPUSH BID@0130,1330 [facility] Quetiapine Fumarate (Quetiapine Fumarate 50 Mg Tablet) 50 mg PO DAILY [facility] Last Admin: 08/14/24 07:34 Dose: 50 mg Senna (Sennosides 8.6 Mg Tablet) 17.2 mg PO BEDTIME PRN PRN Reason: constipation Sodium Chloride (0.9 % Sodium Chloride Flush 3 Ml Syringe) 3 ml IVFLUSH QSHIFT [facility] Last Admin: 08/14/24 07:41 Dose: 3 ml Sucralfate (Sucralfate Oral Suspension 1 Gm/10 Ml Oral.Susp) 1 gm PO QIDACHS [facility] Last Admin: 08/14/24 13:07 Dose: 1 gm Tamsulosin HCl (Tamsulosin Hcl 0.4 Mg Capsule) 0.4 mg PO BEDTIME [facility] Last Admin: 08/13/24 19:48 Dose: 0.4 mg Topiramate (Topiramate 100 Mg Tablet) 200 mg PO BID [facility] Last Admin: 08/14/24 07:34 Dose: 200 mg Home Medications ?Medication ?Instructions ?Recorded ?Confirmed ?Last Taken ?Type melatonin 10 mg tablet 10 mg PO BEDTIME Insomnia 11/13/23 08/12/24 08/11/24 History mirtazapine 15 mg tablet 15 mg PO BEDTIME 11/13/23 08/12/24 08/11/24 History quetiapine 50 mg tablet (Seroquel) 50 mg PO DAILY 03/20/24 08/12/24 08/11/24 History tamsulosin 0.4 mg capsule 0.4 mg PO BEDTIME 07/23/24 08/12/24 08/11/24 History topiramate 200 mg tablet 200 mg PO BID 07/23/24 08/12/24 08/11/24 History Physical Exam 2 Vital Signs: Vital Signs: Last Vital Signs Temp 97.3 F 08/14/24 10:25 Pulse 100 08/14/24 13:34 Resp 16 08/14/24 10:25 BP 117/65 08/14/24 13:34 Pulse Ox 99 08/14/24 10:25 O2 Del Method Room Air 08/14/24 10:25 BMI result Body Mass Index 30.2 General: acute distress, ill appearing and tired appearing Nutritional Appearance: well nourished and overweight Eyes: appearance normal, both eyes and all related structures; Alignment and Position: alignment normal and position normal Neck: No lymphadenopathy, no thyromegaly Resp: bilateral air entry equal, occasional added sounds present Cardio: Regular rate, regular rhythm; Heart sounds: S1 normal heart sound present and S2 normal heart sound present GI: soft, distended, no guarding, no hepatosplenomegaly : bladder normal to inspection, bladder normal to palpation, no renal angle tenderness Skin: no rashes or lesions noted and elasticity normal Neuro: oriented to person, oriented to place, oriented to time and moves all extremities Neuro: Cranial nerves: No Normal hearing present Speech: No Abnormal speech present Results Labs 08/14/24 13:57 08/14/24 08:51 Labs: Short CBC 08/14/24 08/14/24 Range/Units 08:51 13:57 WBC 8.6 (4.8-10.8) X10*3/uL Hgb 7.7 L 8.3 L (14.0-18.0) g/dl Hct 23.5 L 24.9 L (42.0-52.0) % Plt Count 106 L (160-400) X10*3/uL BMP 08/14/24 08:51 Potassium 3.7 D Microbiology Microbiology Results: Microbiology 08/13/24 Unknown Urine Catheterized - Barber Catheter Urine Culture - Final No growth. Assessment and Plan (1) Portal hypertensive gastropathy: Status: Acute (2) Esophageal varices: Qualifiers: Esophageal varices type: secondary Status: Acute (3) Acute upper gastrointestinal bleeding: Status: Acute (4) Esophageal varices: Status: Acute (5) Erosive esophagitis: Status: Acute (6) Acute upper gastrointestinal bleeding: Status: Acute (7) Alcoholic cirrhosis of liver with ascites: Status: Acute Plan Upper GI bleed: NPO for now Secondary to portal hypertensive gastropathy and severe esophagitis, underwent 2 endoscopies this week Please get a stat CTA of chest abdomen and if we find a bleeding vessel we will consult IR for embolization Stat GI consult for possible need for endoscopy or if he needs transfer out of the hospital for higher level of care Start the patient on octreotide drip and pantoprazole 40 mg IV b.i.d. Acute blood loss anemia: Secondary to upper GI bleed Repeat a stat CBC and PRBC transfusion to keep hemoglobin above 7 grams/deciliter Liver cirrhosis: Patient has decompensated cirrhosis Lactulose to prevent hepatic encephalopathy mood disorder: continue mirtazipine, quiteapine and topiramate
[2024-08-14] MEDS: Octreotide Acetate 500 MCG in 0.9 % Sodium Chloride 500 ML 50.1 MCG IVCONT (14:20)
--- NOTE | 2024-08-14 14:46 | PC.NURSE ---
Patient had another episode of vomiting 150cc bright red blood with large clot. GI md at bedside to evaluate patient. Patient NPO at this time for possible endoscopy later today. BP: 135/74, HR 107 BP:147/79, HR 113.
--- NOTE | 2024-08-14 14:51 | PM.EVENT ---
Event Note Date of Service: 08/14/24 Event Note: GI consult dictated UGI Bleeding discussed with Dr Brito who will arrange EGD today. may eventual tips for treatment of recurrent GI bleeding pending findings. Time Spent With Patient Time: Total time managing care of this patient today ____ minutes.
--- NOTE | 2024-08-14 15:49 | CONS_ITS ---
DATE OF SERVICE: 08/14/2024 REFERRING PHYSICIAN: Dr. Rosenberg REASON FOR CONSULTATION: Hematemesis. HISTORY OF PRESENT ILLNESS: Mr. Rico is a 59-year-old man seen today in consultation at the request of Dr. Rosenberg because of hematemesis. He was admitted to the hospital on August 12 with hematuria and urethral obstruction and underwent catheter placement and cystoscopy with bladder neck stricture dilation and clot evacuation from the bladder on 08/12. This morning, he developed hematemesis with 2 episodes of vomiting about 250 cc of bright red blood. The patient is seen today for Dr. Brito. His history is reviewed. He has a history of erosive esophagitis with previous episodes of GI bleeding, treated previously with multiple endoscopic therapies including hemoclip placement, epinephrine injection, and Hemospray. He also has portal hypertensive gastropathy, which was also treated with Hemospray. His last endoscopy was on 08/08 and is reviewed in detail. PAST MEDICAL HISTORY: 1. Upper GI bleeding as above. 2. Recent episode of hematuria. 3. Alcohol abuse with cirrhosis, ascites, and GI bleeding. 4. Alcoholic hepatitis with thrombocytopenia. 5. PTSD. 6. Metabolic encephalopathy. 7. Prostate cancer. 8. Depression. 9. Hypertension. 10. Hyperlipidemia. 11. Anxiety. CURRENT MEDICATIONS: His current medication list is reviewed in the chart. ALLERGIES: THERE ARE NO REPORTED DRUG ALLERGIES. FAMILY HISTORY: This is reviewed in electronic medical record. SOCIAL HISTORY: He does smoke. Alcohol use is frequent. There is substance use with marijuana as well. REVIEW OF SYSTEMS: SKIN: No pruritus. HEENT: Negative. CARDIOPULMONARY: No shortness of breath or chest pain. GASTROINTESTINAL: As above. GENITOURINARY: Negative. NEUROPSYCHIATRIC: Negative. PHYSICAL EXAMINATION: GENERAL: Shows a pleasant male, lying in bed. SKIN: Cachectic and anicteric. HEENT: Shows no scleral icterus. NECK: Without lymphadenopathy. LUNGS: Clear. HEART: Shows a regular rate and rhythm. S1, S2. No murmur. ABDOMEN: Soft without focal masses or tenderness. There is abdominal distention. Prominent abdominal wall veins are noted. EXTREMITIES: Show edema. LABORATORY DATA: Reviewed. IMPRESSION: Upper gastrointestinal bleeding. His upper GI bleeding is likely from erosive esophagitis as evidenced by his previous endoscopy with possibly a component from portal hypertensive gastropathy. There are no reported recent episodes of varices or bleeding or esophageal varices, although this is a possibility given his history of underlying cirrhosis. I have discussed endoscopy with him including risks and benefits. Dr. Tay is here and will perform this. He may need [facility] for tips if bleeding is not able to be controlled. Thanks for asking me to see him. I will follow him in the hospital with you. MD LA Rowe/ROMAINE / [id number] MTDD
--- NOTE | 2024-08-14 16:57 | HO.ANESPROP2 ---
[facility] Active Problems Active Problems: All Active Problems Urethral obstruction (Acute) Acute urinary retention (Acute) Gross hematuria (Acute) Anemia (Acute) Acute upper gastrointestinal bleeding (Acute) Hematemesis (Acute) Abdominal pain (Acute) Dysphagia (Acute) Acute respiratory failure with hypoxia (Acute) Septic shock (Acute) Bladder neck obstruction (Acute) History of prostate cancer (Acute) Acidosis, lactic (Acute) Hypokalemia (Acute) Esophageal varices (Acute) Anemia (Acute) Acute upper gastrointestinal bleeding (Acute) Acute lactic acidosis (Acute) Hypokalemia (Acute) Esophageal varices (Acute) Portal hypertensive gastropathy (Acute) Erosive esophagitis (Acute) Anemia (Acute) Acute hyponatremia (Acute) Acute GI bleeding (Acute) Encephalopathy (Acute) NATHANIEL (acute kidney injury) (Acute) Anasarca (Acute) History of radiation therapy (Acute) Fatty liver (Acute) Hyponatremia (Acute) Alcoholic cirrhosis of liver with ascites (Acute) Hypertension (Acute) Hyperlipidemia (Acute) Depression (Acute) Anxiety (Acute) Past Medical History Medical History Alcoholic hepatitis Thrombocytopenia Nausea & vomiting Hyponatremia Acute hypokalemia Alcohol dependence Ascites Congestive heart failure Anemia ETOH abuse Alcoholic cirrhosis PTSD (post-traumatic stress disorder) Hyponatremia Acute hyponatremia NATHANIEL (acute kidney injury) Acute metabolic encephalopathy Falls Alcoholic cirrhosis of liver with ascites Prostate cancer Depression Hyperlipidemia Hypertension Anxiety Family History Family history of problems with anesthesia: No Surgical History History of Problems with Anesthesia: No Social History Social History Household Members: Significant Other Household Members Other:: fiancee [facility] Do you presently have visiting nurse or other home services: No ([employer] consultant's are going to be coming to the house.) Unable to assess alcohol history related to: Refusing to respond Alcohol intake: former Comment: bilateral wrist restraints for airway safety Patient Tobacco Use Status: Current everyday Tobacco user Tobacco use type: Cigarette Cigarette Packs Per Day: 3 Cigarettes Per Day: 3 Years Smoked: 20 Smoked in Last 30 Days: Yes e-Cigarette/Vaping Use: Never Used Patient Interested in Nicotine Replacement: No Patient Given Instructions on How to Stop Smoking: No Second Hand Smoke Exposure: No Use of substances other than those prescribed or required for medical reasons: No Substance Use Type: Marijuana Substance Use Type Other:: edible gummies Currently Displaying Signs/Symptoms of Drug Intoxication Withdrawal: No Have you been hit, kicked, punched, or otherwise hurt by someone within the past year? If so, by whom?: No Do you feel safe in your current relationship?: Yes Is there a partner from a previous relationship who is making you feel unsafe now?: No Are you made to feel afraid or neglected: No Advance Directives: Yes Advance Directives on File: Yes Advance Directives Date on File: 11/11/21 Do you have a plan to hurt others: No Plan Recently lost weight without trying: No How much weight loss: Not applicable Eating poorly because of decreased appetite: No Nutrition screen score: 0 Nutrition Risks: No Nutritional Risk Poor oral hygiene: No service: No Current occupational status: disabled Meds Allergies Allergy/AdvReac Type Severity Reaction Status Date / Time Fish Containing Products Allergy Severe THROAT Verified 08/12/24 12:06 SWELLING peanut [Peanut] Allergy Severe THROAT Verified 08/12/24 12:06 SWELLING Active Medications: Current Medications Acetaminophen (Acetaminophen 325 Mg Tablet) 650 mg PO Q6H PRN PRN Reason: Pain, Mild (Pain Scale 1-3), fever or headache Last Admin: 08/14/24 13:07 Dose: 650 mg Octreotide Acetate 500 mcg/ (Sodium Chloride) 501 mls @ 50.1 mls/hr IVCONT .Q10H [facility] Last Infusion: 08/14/24 16:41 Dose: 0 mcg/hr, 0 mls/hr Phytonadione 10 mg/ Sodium (Chloride) 51 mls @ 51 mls/hr IV ONCE ONE Stop: 08/14/24 15:41 Albumin Human (Kedbumin 25 %) 100 mls @ 100 mls/hr IV Q6H [facility]UL[facility]NT Stop: 08/15/24 09:44 Lactulose (Lactulose 20 Gm/30 Ml Solution) 20 gm PO BID [facility]ULWANT Last Admin: 08/14/24 07:38 Dose: Not Given Magnesium Oxide (Magnesium Oxide 400 Mg Tablet) 200 mg PO DAILY [facility] Last Admin: 08/14/24 07:34 Dose: 200 mg Mirtazapine (Mirtazapine 15 Mg Tablet) 15 mg PO BEDTIME [facility] Last Admin: 08/13/24 19:48 Dose: 15 mg Naloxone HCl (Naloxone Hcl 0.4 Mg/Ml Vial) 0.04 mg IVPUSH Q5M PRN PRN Reason: Excessive sedation or RR < 8 Ondansetron HCl (Ondansetron Hcl 4 Mg/2 Ml Vial) 4 mg IVPUSH Q8H PRN PRN Reason: Nausea and Vomiting Last Admin: 08/14/24 14:19 Dose: 4 mg Pantoprazole Sodium (Pantoprazole Sodium 40 Mg/10 Ml Vial) 80 mg IVPUSH BID@0130,1330 [facility] Quetiapine Fumarate (Quetiapine Fumarate 50 Mg Tablet) 50 mg PO DAILY [facility] Last Admin: 08/14/24 07:34 Dose: 50 mg Senna (Sennosides 8.6 Mg Tablet) 17.2 mg PO BEDTIME PRN PRN Reason: constipation Sodium Chloride (0.9 % Sodium Chloride Flush 3 Ml Syringe) 3 ml IVFLUSH QSHIFT [facility] Last Admin: 08/14/24 07:41 Dose: 3 ml Sucralfate (Sucralfate Oral Suspension 1 Gm/10 Ml Oral.Susp) 1 gm PO QIDACHS [facility] Last Admin: 08/14/24 13:07 Dose: 1 gm Tamsulosin HCl (Tamsulosin Hcl 0.4 Mg Capsule) 0.4 mg PO BEDTIME [facility] Last Admin: 08/13/24 19:48 Dose: 0.4 mg Topiramate (Topiramate 100 Mg Tablet) 200 mg PO BID [facility] Last Admin: 08/14/24 07:34 Dose: 200 mg Home Medications ?Medication ?Instructions ?Recorded ?Confirmed ?Last Taken ?Type melatonin 10 mg tablet 10 mg PO BEDTIME Insomnia 11/13/23 08/12/24 08/11/24 History mirtazapine 15 mg tablet 15 mg PO BEDTIME 11/13/23 08/12/24 08/11/24 History quetiapine 50 mg tablet (Seroquel) 50 mg PO DAILY 03/20/24 08/12/24 08/11/24 History tamsulosin 0.4 mg capsule 0.4 mg PO BEDTIME 07/23/24 08/12/24 08/11/24 History topiramate 200 mg tablet 200 mg PO BID 07/23/24 08/12/24 08/11/24 History Exam Height,Weight and Vital Signs: Height 5 ft 8 in Weight 90 kg Last Vital Signs Temp 99.0 F 08/14/24 15:27 Pulse 88 08/14/24 15:27 Resp 18 08/14/24 15:06 BP 109/62 08/14/24 15:27 Pulse Ox 99 08/14/24 10:25 O2 Del Method Room Air 08/14/24 10:25 Pertinent Lab Results Pertinent Lab Results: Laboratory Tests 08/12/24 08/12/24 08/12/24 12:15 16:54 20:47 WBC 9.9 RBC 2.87 L Hgb 9.5 L Hct 28.7 L MCV 100.0 H MCH 33.1 H MCHC 33.1 RDW 20.9 H Plt Count 120 L D MPV 9.3 L Immature Gran % (Auto) 0.7 H Neut % (Auto) 86.0 H Lymph % (Auto) 6.8 L [place] % (Auto) 5.7 Eos % (Auto) 0.2 Baso % (Auto) 0.6 Lymph # (Auto) 0.7 L [place] # (Auto) 0.6 Eos # (Auto) 0.0 Baso # (Auto) 0.1 Abs Immat Gran (auto) 0.07 H Absolute Neuts (auto) 8.5 H Absolute Nucleated RBC 0.000 Nucleated RBC % (auto) 0.0 Sodium 132 L Potassium 3.8 Chloride 107 Carbon Dioxide 19 L Anion Gap 10 L BUN 14 Creatinine 0.97 Estim Creat Clear Calc 89.3 Estimated GFR > 60 Random Glucose 131 H Lactic Acid 1.6 Calcium 8.6 D Total Bilirubin 4.2 H AST 122 H ALT 44 H Alkaline Phosphatase 168 H Total Protein 6.9 Albumin 2.4 L Urine Color Urine Appearance Urine pH Ur Specific [place] Urine Protein Urine Glucose (UA) Urine Ketones Urine Blood Urine Nitrite Ur Leukocyte Esterase Urine RBC Urine WBC Urine WBC Clumps Ur Squamous Epith Cells Urine Bacteria Hyaline Casts Blood Type A Positive Antibody Screen NEGATIVE Crossmatch See Detail 08/13/24 08/13/24 08/14/24 05:38 10:26 08:51 WBC 10.0 RBC 2.70 L Hgb 8.7 L 7.7 L Hct 26.7 L 23.5 L MCV 98.9 H MCH 32.2 MCHC 32.6 RDW 20.7 H Plt Count 104 L MPV 9.7 Immature Gran % (Auto) Neut % (Auto) Lymph % (Auto) [place] % (Auto) Eos % (Auto) Baso % (Auto) Lymph # (Auto) [place] # (Auto) Eos # (Auto) Baso # (Auto) Abs Immat Gran (auto) Absolute Neuts (auto) Absolute Nucleated RBC 0.000 Nucleated RBC % (auto) 0.0 Sodium 134 L Potassium 5.2 H D 3.7 D Chloride 109 H Carbon Dioxide 18 L Anion Gap 12 BUN 14 Creatinine 1.05 Estim Creat Clear Calc 82.5 Estimated GFR > 60 Random Glucose 110 Lactic Acid Calcium 7.9 L D Total Bilirubin AST ALT Alkaline Phosphatase Total Protein Albumin Urine Color [place] Urine Appearance Cloudy Urine pH 5.0 Ur Specific [place] 1.020 Urine Protein TNP Urine Glucose (UA) TNP Urine Ketones TNP Urine Blood Large (3+) H Urine Nitrite TNP Ur Leukocyte Esterase Large (3+) H Urine RBC >20 H Urine WBC 11-20 H Urine WBC Clumps Present Ur Squamous Epith Cells 0-2 Urine Bacteria Trace Hyaline Casts 0-2 Blood Type Antibody Screen Crossmatch 08/14/24 13:57 WBC 8.6 RBC 2.50 L Hgb 8.3 L Hct 24.9 L MCV 99.6 H MCH 33.2 H MCHC 33.3 RDW 19.9 H Plt Count 106 L MPV 9.4 Immature Gran % (Auto) Neut % (Auto) Lymph % (Auto) [place] % (Auto) Eos % (Auto) Baso % (Auto) Lymph # (Auto) [place] # (Auto) Eos # (Auto) Baso # (Auto) Abs Immat Gran (auto) Absolute Neuts (auto) Absolute Nucleated RBC 0.000 Nucleated RBC % (auto) 0.0 Sodium Potassium Chloride Carbon Dioxide Anion Gap BUN Creatinine Estim Creat Clear Calc Estimated GFR Random Glucose Lactic Acid Calcium Total Bilirubin AST ALT Alkaline Phosphatase Total Protein Albumin Urine Color Urine Appearance Urine pH Ur Specific [place] Urine Protein Urine Glucose (UA) Urine Ketones Urine Blood Urine Nitrite Ur Leukocyte Esterase Urine RBC Urine WBC Urine WBC Clumps Ur Squamous Epith Cells Urine Bacteria Hyaline Casts Blood Type Antibody Screen Crossmatch Airway Mallampati Class: II (missing a couple denies anything loose) TM Dist: >3cm Neck ROM: Full Heart: rrr Lungs: cta Assessment and Plan Assessment Anesthesia Assessment: Anesthesia Plan Discussed and Chart Reviewed Final Anesthetic Review Family History of Problems with Anesthesia: No History of Problems with Anesthesia: No NPO: Yes ASA Class: III and Emergency Final Preanesthetic Review: No Changes in Pt Med Stat, Meds/Allgs Chart Reviewed and Consent Obtained/Reviewed Patient Risk: Intermediate Procedure Risk: Intermediate Anesthetic Plan Anesthetic Plan: GA Disposition: Standard PACU
--- NOTE | 2024-08-14 17:32 | PC.NURSE ---
@ aprox 1430 Pt had episode of emesis w blood. This was w previous nurse. This nurse took over care @ 1500. 2 units of RBC, VitK , and albumin were ordered. This nurse was only able to hang the RBC. Pt was also being requested down @ CT. While down @ CT pt was transfered to surgery. Thus was unable to hang the vit K and albumin. MD Rosenberg notified, as well as pharmacy. Will notify pharmacy when pt returns to unit to hang albumin and vit k.
--- NOTE | 2024-08-14 18:19 | W.PM.OPN ---
Operative Note Operative Note Date of Service: 08/14/24 Narrative: FLEXIBLE TRANSORAL UPPER GASTROINTESTINAL ENDOSCOPY WITH BAND LIGATION OF ESOPHAGEAL VARICES Pre-op diagnosis: cirrhosis with recurrent upper GI bleed, severe anemia Post-op diagnosis: Erosive esophagitis, esophageal varices, portal hypertensive gastropathy Endoscopist:? Abhilash Brito MD Anesthesia:?GA with ET tube (Dr Silva) UPPER ENDOSCOPY Consent: Indications for the procedure and potential complications of bleeding, perforation, reaction to medications and missed diagnosis were discussed with the patient and informed consent was obtained. Instrument: Olympus GIF H 190 mid size upper endoscope Monitoring: Vital signs and clinical assessment, continuous EKG monitoring, Pulse oximetry, Carbon Dioxide monitoring and blood pressure monitoring were done throughout the procedure. Procedure: The patient was placed in the left lateral decubitis position and pre-procedure medications were administered and a bite block was placed. The endoscope was inserted into the mouth and advanced under direct vision to the third part of duodenum. A careful inspection was made as the upper endoscope was withdrawn including a retroflexed examination of the proximal stomach; Findings and interventions are described below. Findings: Larynx: ET tube in place Esophagus: GE junction at 36 cms, hiatal hernia 36 to 40 cms. Partially digested food in the esophagus which was flushed and pushed into the stomach. Two column Grade 2-3 varices from 30 to 36 cms and erosive esophagitis. Slow oozing from GE junction. A hemoclip noted at 34 cms (Placed during a previous EGD in 03/2024) Band ligation of esophageal varices was performed - 4 bands were placed with flattening of the varices. Stomach: Friable gastric mucosa with mosaic pattern consistent with moderate portal hypertensive gastropathy. Grade 3 flap valve on retroflexed examination of the cardia. Duodenum: Not examined Intervention: Hemospray as noted above Impression and Post Procedure Diagnosis: Endoscopy Findings: ESOPHAGUS: Two column Grade 2-3 varices from 30 to 36 cms and erosive esophagitis. Slow oozing from GE junction. A hemoclip noted at 34 cms (Placed during a previous EGD in 03/2024) Band ligation of esophageal varices was performed - 4 bands were placed with flattening of the varices. (Esophageal varices likely obscured on previous EGDs due to overlying erosive esophagitis) STOMACH: Moderate portal hypertensive gastropathy Plan: 1. Repeat CBC tonight and transfuse prn 2. Continue IV octreotide infusion x 48 hrs 3. Clear liquid diet tonight (order placed) and advanced to a soft diet in the a.m. 3. If recurrent bleeding, transfer to teriary care for TIPPS placement Above findings were reviewed with the patient.
[2024-08-14] MEDS: Albumin Human 25 % 100 ML IV ×2 (18:46→23:29)
[2024-08-14] MEDS: Phytonadione (Vit K1) 10 MG in 0.9 % Sodium Chloride 50 ML 51 MG IV (19:43)
[2024-08-14 21:27] LABS: Hematocrit 24.8 % (42.0-52.0); Hemoglobin 8.3 g/dl (14.0-18.0); Mean Corpuscular HGB Conc 33.5 g/dl (31.0-36.0); Mean Corpuscular Hemoglobin 32.9 pg (27.0-33.0); Mean Corpuscular Volume 98.4 fL (80.0-98.0); Mean Platelet Volume 10.3 fL (9.4-12.4); NRBC Pct Auto 0.3 /100WBC (0.0-0.2); Platelet Count 105 X10*3/uL (160-400); Red Blood Count 2.52 X10*6/uL (4.60-5.80); Red Cell Distribution Width 19.3 % (11.0-16.0); White Blood Count 6.6 X10*3/uL (4.8-10.8)
[2024-08-15] VITALS (8 sets, daily range): BP systolic 101–127; BP diastolic 53–68; PULSE 66–86; RESP 18–20; TEMP 36.1–37.4; O2SAT 94–100
[2024-08-15 01:38] LABS: Hematocrit 24.3 % (42.0-52.0); Hemoglobin 8.3 g/dl (14.0-18.0); Mean Corpuscular HGB Conc 34.2 g/dl (31.0-36.0); Mean Corpuscular Hemoglobin 33.2 pg (27.0-33.0); Mean Corpuscular Volume 97.2 fL (80.0-98.0); Mean Platelet Volume 9.5 fL (9.4-12.4); Platelet Count 102 X10*3/uL (160-400); Red Cell Distribution Width 18.6 % (11.0-16.0); White Blood Count 7.6 X10*3/uL (4.8-10.8)
[2024-08-15] MEDS: Octreotide Acetate 500 MCG in 0.9 % Sodium Chloride 500 ML 50.1 MCG IVCONT ×3 (02:30→19:52)
[2024-08-15] MEDS: Albumin Human 25 % 100 ML IV ×2 (02:30→07:41)
--- NOTE | 2024-08-15 05:29 | PC.NURSE ---
Pt AOx3, able to make his needs known. Pt is non compliant w/meds at this time refusing to take them even after education. Pt has had numerous episodes of loose stool. Pt places hands in stool, then picks at his scabs, and pulls on the rojas catheter. He has been instructed by this RN and the CNAs to not put his hand in his stool and then touch his scabs. He states he will stop but he continues to do so. Pt instructed to not pull on his rojas catheter and educated about his need for it. Rojas catheter is no draining yellow urine, no clots. Currently on a clear liquid diet. Bed alarm on, call andres within reach.
[2024-08-15] MEDS: Sucralfate Oral Suspension 1 GM/10 ML ORAL.SUSP PO ×4 (07:41→19:51)
[2024-08-15] MEDS: 0.9 % Sodium Chloride Flush 3 ML SYRINGE IVFLUSH ×3 (07:41→19:56)
[2024-08-15] MEDS: Topiramate 100 MG TABLET 200 MG PO ×2 (07:42→19:51)
[2024-08-15] MEDS: QUEtiapine Fumarate 50 MG TABLET PO (07:43)
[2024-08-15] MEDS: Magnesium Oxide 400 MG TABLET 200 MG PO (07:43)
--- NOTE | 2024-08-15 08:14 | HO.POSTANES ---
Post Anesthesia Evaluation Post Anesthesia Evaluation Date of Service: 08/15/24 Vital Signs: Vital Signs Temp Pulse Resp BP Pulse Ox O2 Del Method 08/15/24 04:00 98.8 F 86 20 114/68 94 Room Air 08/15/24 01:06 98.9 F 68 18 110/58 L 08/15/24 00:00 99.3 F 66 20 110/56 L 98 Room Air 08/14/24 21:31 98.3 F 91 20 104/55 L 98 Room Air 08/14/24 20:58 98.9 F 88 18 99/55 L 08/14/24 20:45 98.9 F 88 20 99/55 L 99 Room Air Anesthesia: General Endotracheal-GETA Mental Status: Awake Pain Control: Satisfactory Nausea/Vomiting: None Hydration: Adequate Anesthesia-Related Issues: No Anes. Related Issues
[2024-08-15 11:27] LABS: Hematocrit 27.4 % (42.0-52.0); Mean Corpuscular HGB Conc 32.8 g/dl (31.0-36.0); Mean Corpuscular Hemoglobin 32.4 pg (27.0-33.0); Mean Corpuscular Volume 98.6 fL (80.0-98.0); Mean Platelet Volume 9.5 fL (9.4-12.4); Platelet Count 107 X10*3/uL (160-400); Red Blood Count 2.78 X10*6/uL (4.60-5.80); White Blood Count 6.6 X10*3/uL (4.8-10.8)
--- NOTE | 2024-08-15 15:47 | P.PNIM_ITS ---
Subjective Subjective Date of Service: 08/15/24 Interval History: anemia gib Review of Systems feels improving no new episode of bleedin wants ot eat Physical Exam 2 Vital Signs: Vital Signs: Last Vital Signs Temp 97.5 F 08/15/24 15:26 Pulse 68 08/15/24 15:26 Resp 18 08/15/24 15:26 BP 112/56 L 08/15/24 15:26 Pulse Ox 99 08/15/24 15:26 O2 Del Method Room Air 08/15/24 15:26 BMI result Body Mass Index 30.2 Appearance: Alert.? Oriented X3.? cvs: rrr, [id number] . res: clear to auscultation ,no rhonchii or wheezing abd: no rebound or guarding ,nt, bs present. ext pulses present , no cyanosis . neuro: axo3 , nonfocal. Objective Data Active Medications Acetaminophen (Acetaminophen 325 Mg Tablet) 650 mg PO Q6H PRN PRN Reason: Pain, Mild (Pain Scale 1-3), fever or headache Last Admin: 08/14/24 13:07 Dose: 650 mg Documented By: JACOB Octreotide Acetate 500 mcg/ (Sodium Chloride) 501 mls @ 50.1 mls/hr IVCONT .Q10H PENDING SALE TO [facility] Last Admin: 08/15/24 11:18 Dose: 50 mcg/hr, 50.1 mls/hr Documented By: LEONARD Lactulose (Lactulose 20 Gm/30 Ml Solution) 20 gm PO BID [facility] Last Admin: 08/15/24 07:51 Dose: Not Given Documented By: LEONARD Non-Admin Reason: Patient Refused Magnesium Oxide (Magnesium Oxide 400 Mg Tablet) 200 mg PO DAILY [facility] Last Admin: 08/15/24 07:43 Dose: 200 mg Documented By: LEONARD Mirtazapine (Mirtazapine 15 Mg Tablet) 15 mg PO BEDTIME [facility] Last Admin: 08/14/24 21:59 Dose: Not Given Documented By: JOSE MANUEL Non-Admin Reason: Patient Refused Naloxone HCl (Naloxone Hcl 0.4 Mg/Ml Vial) 0.04 mg IVPUSH Q5M PRN PRN Reason: Excessive sedation or RR < 8 Ondansetron HCl (Ondansetron Hcl 4 Mg/2 Ml Vial) 4 mg IVPUSH Q8H PRN PRN Reason: Nausea and Vomiting Last Admin: 08/14/24 14:19 Dose: 4 mg Documented By: LYLE Pantoprazole Sodium (Pantoprazole Sodium 40 Mg/10 Ml Vial) 80 mg IVPUSH BID@0130,1330 [facility] Quetiapine Fumarate (Quetiapine Fumarate 50 Mg Tablet) 50 mg PO DAILY [facility] Last Admin: 08/15/24 07:43 Dose: 50 mg Documented By: LEONARD Senna (Sennosides 8.6 Mg Tablet) 17.2 mg PO BEDTIME PRN PRN Reason: constipation Sodium Chloride (0.9 % Sodium Chloride Flush 3 Ml Syringe) 3 ml IVFLUSH QSHIFT [facility] Last Admin: 08/15/24 15:30 Dose: 3 ml Documented By: LEONARD Sucralfate (Sucralfate Oral Suspension 1 Gm/10 Ml Oral.Susp) 1 gm PO QIDACHS [facility]END[facility] Last Admin: 08/15/24 15:30 Dose: 1 gm Documented By: LEONARD Tamsulosin HCl (Tamsulosin Hcl 0.4 Mg Capsule) 0.4 mg PO BEDTIME [facility] Last Admin: 08/14/24 21:59 Dose: Not Given Documented By: JOSE MANUEL Non-Admin Reason: Patient Refused Topiramate (Topiramate 100 Mg Tablet) 200 mg PO BID [facility] Last Admin: 08/15/24 07:42 Dose: 200 mg Documented By: LEONARD Labs 08/15/24 11:16 08/14/24 08:51 Labs: Laboratory Results - last 24 hr 08/12/24 08/14/24 08/15/24 20:47 20:23 01:24 MCV 98.4 H 97.2 MCH 32.9 33.2 H MCHC 33.5 34.2 RDW 19.3 H 18.6 H Plt Count 105 L 102 L MPV 10.3 9.5 Absolute Nucleated RBC 0.020 H 0.000 Nucleated RBC % (auto) 0.3 H 0.0 Blood Type A Positive Antibody Screen NEGATIVE Crossmatch See Detail 08/15/24 11:16 MCV 98.6 H MCH 32.4 MCHC 32.8 RDW 19.0 H Plt Count 107 L MPV 9.5 Absolute Nucleated RBC 0.000 Nucleated RBC % (auto) 0.0 Blood Type Antibody Screen Crossmatch Microbiology Microbiology Results: Microbiology 08/13/24 Unknown Urine Culture - Final Urine Catheterized - Rojas Catheter No growth. Assessment and Plan (1) Anemia: Status: Acute Plan acute of UGI bleed Last admission patient underwent upper endoscopy by Dr. Brito that showed friable gastric mucosa consistent with moderate portal hypertensive gastropathy, slow oozing from gastropathy treated with hemo spray, grade 3 flap valve, congestive duodenopathy in the bulb consistent with erosive esophagitis with slow oozing treated with hemo spray applied, patient was treated with 48 hours of IV Protonix drip. on 08/14/24 :had upper Gib Egd on08/14/24 : Two column Grade 2-3 varices from 30 to 36 cms and erosive esophagitis. Slow oozing from GE junction. A hemoclip noted at 34 cms (Placed during a previous EGD in 03/2024) Band ligation of esophageal varices was performed - 4 bands were placed with flattening of the varices. (Esophageal varices likely obscured on previous EGDs due to overlying erosive esophagitis) Stomach: Moderate portal hypertensive gastropathy plan: h/h 8-9 continue ppi/octreotide Gi follow up, if continue to bleed will need tips Acute urinary retention /Urethral obstruction /Gross hematuria on 08/12/24 -s/p Cystoscopy, bladder neck stricture dilatation, clot evacuation from bladder hematuria resolving,continue rojas urology follow up. CHRONIC LONGSTANDING MEDICAL ISSUES: Decompensated alcoholic liver cirrhosis - Patient has decompensated alcoholic liver cirrhosis, recent paracentesis with 07/24/2024 which did not reveal SPEP. - Patient is maintained on spironolactone and lactulose Transaminitis Hyperbilirubinemia Review of AST/ALT/alk-phos and total bilirubin sure that these chronically elevated, likely secondary to chronic alcoholism and liver cirrhosis. Hypertension - Normotensive on arrival. Not currently maintained on antihypertensives however does take furosemide as well as spironolactone. Hyperlipidemia - Not maintained on statin. Prostatism - Tamsulosin continued. Mood disorder - Quetiapine and mirtazapine continued OTHER: DVT prophylaxis -Chemical DVT prophylaxis currently contraindicated at this time as patient is experiencing hematuria and recently recovering from upper GI bleed. Intermittent compression boots ordered. Ongoing need for hospitlisation-gib -need h/h monitering , monitering for further Gi bleed ,GI follow up. HCP patient lists as his ria Todd, his son is secondary HCP Heath Rico, Quality Stroke Does the patient have a stroke diagnosis?: No VTE Prior VTE?: No VTE Risk Level:: Medical - moderate - high VTE Device Contraindication: N/A - Device Ordered VTE Drug Contraindication: Treatment Not Indicated
[2024-08-15 16:20] LABS: Hematocrit 25.7 % (42.0-52.0); Hemoglobin 8.7 g/dl (14.0-18.0); Mean Corpuscular HGB Conc 33.9 g/dl (31.0-36.0); Mean Corpuscular Volume 97.3 fL (80.0-98.0); Platelet Count 116 X10*3/uL (160-400); Red Blood Count 2.64 X10*6/uL (4.60-5.80); White Blood Count 6.1 X10*3/uL (4.8-10.8)
[2024-08-15] MEDS: Tamsulosin HCL 0.4 MG CAPSULE PO (19:51)
[2024-08-15] MEDS: Mirtazapine 15 MG TABLET PO (19:51)
[2024-08-16] MEDS: Pantoprazole Sodium 40 MG/10 ML VIAL 80 MG IVPUSH ×2 (01:14→12:38)
[2024-08-16 03:26] VITALS: BP 105/50; PULSE 77; RESP 20; TEMP 36.6; O2SAT 97
[2024-08-16] MEDS: Octreotide Acetate 500 MCG in 0.9 % Sodium Chloride 500 ML 50.1 MCG IVCONT ×2 (05:54→15:46)
[2024-08-16 07:04] LABS: Hematocrit 26.2 % (42.0-52.0); Hemoglobin 8.6 g/dl (14.0-18.0)
[2024-08-16 08:00] VITALS: BP 118/63; PULSE 66; RESP 16; TEMP 36.8; O2SAT 99
[2024-08-16] MEDS: QUEtiapine Fumarate 50 MG TABLET PO (08:54)
[2024-08-16] MEDS: Sucralfate Oral Suspension 1 GM/10 ML ORAL.SUSP PO ×4 (08:54→22:45)
[2024-08-16] MEDS: Topiramate 100 MG TABLET 200 MG PO ×2 (08:54→22:45)
[2024-08-16] MEDS: Magnesium Oxide 400 MG TABLET 200 MG PO (08:54)
[2024-08-16] MEDS: 0.9 % Sodium Chloride Flush 3 ML SYRINGE IVFLUSH ×3 (08:54→22:45)
[2024-08-16 11:32] VITALS: BP 116/69; PULSE 81; RESP 20; TEMP 36.8; O2SAT 98
--- NOTE | 2024-08-16 14:09 | HO.PM.IMPN ---
Subjective Subjective Date of Service: 08/16/24 Interval History: anemia ,gib Review of Systems feels improving no new episode of bleedin, tolerating diet Physical Exam Vital Signs: Vital Signs: Last Vital Signs Temp 98.3 F 08/16/24 11:32 Pulse 81 08/16/24 11:32 Resp 20 08/16/24 11:32 BP 116/69 08/16/24 11:32 Pulse Ox 98 08/16/24 11:32 O2 Del Method Room Air 08/16/24 11:32 BMI result Body Mass Index 30.2 Appearance: Alert.? Oriented X3.? cvs: rrr, [id number] . res: clear to auscultation ,no rhonchii or wheezing abd: no rebound or guarding ,nt, bs present. ext pulses present , no cyanosis . neuro: axo3 , nonfocal. Objective Data Active Medications Acetaminophen (Acetaminophen 325 Mg Tablet) 650 mg PO Q6H PRN PRN Reason: Pain, Mild (Pain Scale 1-3), fever or headache Last Admin: 08/14/24 13:07 Dose: 650 mg Documented By: JACOB Octreotide Acetate 500 mcg/ (Sodium Chloride) 501 mls @ 50.1 mls/hr IVCONT .Q10H [facility] Last Admin: 08/16/24 05:54 Dose: 50 mcg/hr, 50.1 mls/hr Documented By: CAROLYNE Lactulose (Lactulose 20 Gm/30 Ml Solution) 20 gm PO BID [facility] Last Admin: 08/16/24 08:55 Dose: Not Given Documented By: ARACELI Non-Admin Reason: Patient Refused Magnesium Oxide (Magnesium Oxide 400 Mg Tablet) 200 mg PO DAILY [facility] Last Admin: 08/16/24 08:54 Dose: 200 mg Documented By: ARACELI Mirtazapine (Mirtazapine 15 Mg Tablet) 15 mg PO BEDTIME [facility] Last Admin: 08/15/24 19:51 Dose: 15 mg Documented By: CAROLYNE Naloxone HCl (Naloxone Hcl 0.4 Mg/Ml Vial) 0.04 mg IVPUSH Q5M PRN PRN Reason: Excessive sedation or RR < 8 Ondansetron HCl (Ondansetron Hcl 4 Mg/2 Ml Vial) 4 mg IVPUSH Q8H PRN PRN Reason: Nausea and Vomiting Last Admin: 08/14/24 14:19 Dose: 4 mg Documented By: LYLE Pantoprazole Sodium (Pantoprazole Sodium 40 Mg/10 Ml Vial) 80 mg IVPUSH BID@0130,1330 [facility] Last Admin: 08/16/24 12:38 Dose: 80 mg Documented By: ARACELI Quetiapine Fumarate (Quetiapine Fumarate 50 Mg Tablet) 50 mg PO DAILY [facility] Last Admin: 08/16/24 08:54 Dose: 50 mg Documented By: ARACELI Senna (Sennosides 8.6 Mg Tablet) 17.2 mg PO BEDTIME PRN PRN Reason: constipation Sodium Chloride (0.9 % Sodium Chloride Flush 3 Ml Syringe) 3 ml IVFLUSH QSHIFT [facility] Last Admin: 08/16/24 08:54 Dose: 3 ml Documented By: ARACELI Sucralfate (Sucralfate Oral Suspension 1 Gm/10 Ml Oral.Susp) 1 gm PO QIDACHS [facility] Last Admin: 08/16/24 12:37 Dose: 1 gm Documented By: ARACELI Tamsulosin HCl (Tamsulosin Hcl 0.4 Mg Capsule) 0.4 mg PO BEDTIME [facility] Last Admin: 08/15/24 19:51 Dose: 0.4 mg Documented By: CAROLYNE Topiramate (Topiramate 100 Mg Tablet) 200 mg PO BID [facility] Last Admin: 08/16/24 08:54 Dose: 200 mg Documented By: ARACELI Labs 08/16/24 06:36 08/14/24 08:51 Labs: Laboratory Results - last 24 hr 08/15/24 15:43 MCV 97.3 MCH 33.0 MCHC 33.9 RDW 19.0 H Plt Count 116 L MPV 10.0 Absolute Nucleated RBC 0.000 Nucleated RBC % (auto) 0.0 Assessment and Plan (1) Anemia: Status: Acute Plan acute of UGI bleed Last admission patient underwent upper endoscopy by Dr. Brito that showed friable gastric mucosa consistent with moderate portal hypertensive gastropathy, slow oozing from gastropathy treated with hemo spray, grade 3 flap valve, congestive duodenopathy in the bulb consistent with erosive esophagitis with slow oozing treated with hemo spray applied, patient was treated with 48 hours of IV Protonix drip. on 08/14/24 :had upper Gib Egd on08/14/24 : Two column Grade 2-3 varices from 30 to 36 cms and erosive esophagitis. Slow oozing from GE junction. A hemoclip noted at 34 cms (Placed during a previous EGD in 03/2024) Band ligation of esophageal varices was performed - 4 bands were placed with flattening of the varices. (Esophageal varices likely obscured on previous EGDs due to overlying erosive esophagitis) Stomach: Moderate portal hypertensive gastropathy plan: h/h 8-9 continue ppi/octreotide Gi follow up, if continue to bleed will need tips Acute urinary retention /Urethral obstruction /Gross hematuria on 08/12/24 -s/p Cystoscopy, bladder neck stricture dilatation, clot evacuation from bladder hematuria resolving,continue rojas urology follow up. CHRONIC LONGSTANDING MEDICAL ISSUES: Decompensated alcoholic liver cirrhosis - Patient has decompensated alcoholic liver cirrhosis, recent paracentesis with 07/24/2024 which did not reveal SPEP. - Patient is maintained on spironolactone and lactulose Transaminitis Hyperbilirubinemia Review of AST/ALT/alk-phos and total bilirubin sure that these chronically elevated, likely secondary to chronic alcoholism and liver cirrhosis. Hypertension - Normotensive on arrival. Not currently maintained on antihypertensives however does take furosemide as well as spironolactone. Hyperlipidemia - Not maintained on statin. Prostatism - Tamsulosin continued. Mood disorder - Quetiapine and mirtazapine continued OTHER: DVT prophylaxis -Chemical DVT prophylaxis currently contraindicated at this time as patient is experiencing hematuria and recently recovering from upper GI bleed. Intermittent compression boots ordered. Ongoing need for hospitlisation-gib -need h/h monitering , monitering for further Gi bleed ,GI follow up. HCP patient lists as his ria Todd, his son is secondary HCP Heath Rico, Quality Stroke Does the patient have a stroke diagnosis?: No VTE Prior VTE?: No VTE Risk Level:: Medical - moderate - high VTE Device Contraindication: N/A - Device Ordered VTE Drug Contraindication: Treatment Not Indicated
--- NOTE | 2024-08-16 14:32 | MHC.CM.PN ---
Per rounds, pt is not ready to DC, he requires continued treatment of GI bleed. CM to follow for DC needs.
[2024-08-16 16:00] VITALS: BP 122/65; PULSE 73; RESP 18; TEMP 37; O2SAT 99
[2024-08-16 19:13] VITALS: BP 111/59; PULSE 74; RESP 18; TEMP 37.2; O2SAT 99
[2024-08-16] MEDS: Mirtazapine 15 MG TABLET PO (22:45)
[2024-08-16] MEDS: Tamsulosin HCL 0.4 MG CAPSULE PO (22:45)
[2024-08-16 23:12] VITALS: BP 122/61; PULSE 75; RESP 18; TEMP 36.3; O2SAT 96
[2024-08-17] MEDS: Octreotide Acetate 500 MCG in 0.9 % Sodium Chloride 500 ML 50.1 MCG IVCONT (01:40)
[2024-08-17] MEDS: Pantoprazole Sodium 40 MG/10 ML VIAL 80 MG IVPUSH (01:40)
[2024-08-17 03:35] VITALS: BP 130/80; PULSE 80; RESP 18; TEMP 36.3; O2SAT 99
[2024-08-17 07:43] VITALS: BP 119/56; PULSE 71; RESP 18; TEMP 36.7; O2SAT 98
[2024-08-17 08:18] LABS: Hematocrit 27.1 % (42.0-52.0)
[2024-08-17] MEDS: Omeprazole 40 MG CAPSULE.DR PO (08:32)
[2024-08-17] MEDS: QUEtiapine Fumarate 50 MG TABLET PO (08:32)
[2024-08-17] MEDS: Topiramate 100 MG TABLET 200 MG PO (08:32)
[2024-08-17] MEDS: Sucralfate Oral Suspension 1 GM/10 ML ORAL.SUSP PO ×2 (08:32→09:54)
[2024-08-17] MEDS: Magnesium Oxide 400 MG TABLET 200 MG PO (08:32)
[2024-08-17] MEDS: 0.9 % Sodium Chloride Flush 3 ML SYRINGE IVFLUSH (08:37)
[2024-08-17] MEDS: ondansetron HCL 4 MG/2 ML VIAL IVPUSH (09:54)
--- NOTE | 2024-08-17 11:31 | W.MHC.F2F ---
Service Date Service Date: 08/17/24 Encounter Date of encounter: 08/17/24 Encounter: anemia ,ugib ,hematuria Reasons for Services Signs and symptoms assessed: hematuria and further bleeding Reason for longterm: medication management, medication treatment, teach disease management and GI/ assessment (irrigate with saline if rojas clogged , watch for hematuria , if need to be changed 16 or 18 inch-reach out urology dr caceres for follow up) Reason for physical therapy: home safety and mobility, therapeutic exercises, restore joint function, gait/transfer training, assess need for DME, ADL training, energy conservation and other MD Overseeing Care: Fransisco Soria Homebound: Leaving the home is medically contraindicated at this time without the asist of a device and/or another person due th the listed conditions above and below. Reason homebound: weakness related to hospital stay Homebound supporting statement: patient is generalised weak and has multiple comorbidities -need help with appointments ,labs draws , rojas management,PT. Certification: Based on the above findings, I certify that this patient is confined to the home and needs intermittent longterm care, physical therapy and/or speech therapy, or continues to need occupational therapy. The patient is under my care, and I have initiated the establishment of the plan of care. The patient will be followed by a physician who will periodically review the plan of care. Time Spent With Patient Time: Total time managing care of this patient today ____ minutes.
[2024-08-17 11:33] VITALS: BP 114/61; PULSE 74; RESP 20; TEMP 36.9; O2SAT 99
--- NOTE | 2024-08-17 11:37 | PM.DS ---
DS: Providers Provider Date of Service: 08/17/24 Date of admission: 08/12/24 16:46 Date of discharge: 08/17/24 Primary care physician: Fransisco Soria MD Consults: 08/14/24 13:22 Consult to Gastroenterology Routine Consulting Provider: Abhilash Brito Reason for consultation: UGID Has provider been notified: No 08/14/24 13:53 Consult to Critical Care Routine Consulting Provider: Chapincito Arcos Reason for consultation: level of care ,UGIB Has provider been notified: No Attending physician on discharge: Matt Rosenberg Discharging clinician: Matt Rosenberg DS: Diagnosis Discharge Diagnosis (1) Anemia: Status: Acute DS: Summary Hospital Course Hospital Course: HPI: 59-year-old male with a past medical history significant for prostate cancer with urethral obstruction, hypokalemia, decompensated alcoholic liver cirrhosis with ascites, esophageal varices with recent upper GI bleed, portal hypertensive gastropathy amongst others as documented below who presents to the emergency department today for an evaluation of hematuria and dysuria which patient reports began yesterday. Patient reports that he noted that he was ?bleeding a little bit from a penis when I was peeing? before he was discharged yesterday. Patient reports that ?immediately as soon as I got home the bleeding started to get worse and now I can not pee at all.? Patient is also reporting testicle swelling. Of note, patient was admitted to [facility] on 08/08/24 and discharged 08/11/24 for abdominal pain an upper GI bleed. Initial laboratory results: Hgb & Hct 9.5/28.7, platelets 120, Na 132, carbon dioxide 19, anion gap 10, random glucose 131, 20 bilirubin 4.2, AST/ALT 122/44, alk-phos 168, albumin 2.4. In the emergency department the above was performed, Urology was consulted and patient received 1 g ceftriaxone, 4 mg IV morphine sulfate and topical lidocaine was used for Rojas catheter placement. The decision was made to admit patient for medical management. Hospital course: Patient came to the hospital because of urinary retention/obstruction and gross hematuria: Subsequently seen by Urology and cystoscopy with a bladder neck dilation and clot evacuation was done and Rojas was placed subsequently patient urine is clear. Patient is to go home with Rojas and follow-up with per Urology outpatient. Patient also has episode of acute upper GI bleed secondary to variceal bleed-for which patient required emergent EGD and hemo clip as well as band ligation of varices was performed, also has moderate portal hypertensive gastropathy, received 2 PRBC, ppi and octreotide. H&H is stable between 8-9 range,tolerating diet and no new complaints. GI recommended continue p.o. omeprazole 40 b.i.d., sucralfate. chronic issues: Decompensated alcoholic liver cirrhosis - Patient has decompensated alcoholic liver cirrhosis, recent paracentesis with 07/24/2024 which did not reveal SPEP. Patient is maintained on spironolactone and lactulose Transaminitis : Hyperbilirubinemia Review of AST/ALT/alk-phos and total bilirubin sure that these chronically elevated, likely secondary to chronic alcoholism and liver cirrhosis. Hypertension - Normotensive on arrival. Not currently maintained on antihypertensives however does take furosemide as well as spironolactone. Hyperlipidemia - Not maintained on statin. Prostatism- Tamsulosin continued. Mood disorder- Quetiapine and mirtazapine continued GI also recommended that if further bleeding in future then patient might need tips and for that might need a tertiary care management. plan: adjusted omeprazole 40 mg po bid,continue sucralfate . moniter cbc ,bmp,lft's in 1 week. continue rojas until seen by urology. follow-up with PCP and GI and urology for above mentioned issues. Above management discussed with the patient and his in detail length they understand and in agreement with the above plan, time spent 40 minute. In addition discussed with the patient and his they was rather to go to home with VNA and PT, deffered going to rehab. Time Attestation Total time managing care of this patient today: 40 mintues. Discharge Coordination Time (in mins): 40 min Quality: Safe Use of Opioids Does Pt have an Active Cancer Diagnosis on the Problem List?: No Quality: Stroke Does the patient have a stroke diagnosis?: No Physical Exam Vital Signs: Vital Signs: Last Vital Signs Temp 98.5 F 08/17/24 11:33 Pulse 74 08/17/24 11:33 Resp 20 08/17/24 11:33 BP 114/61 08/17/24 11:33 Pulse Ox 99 08/17/24 11:33 O2 Del Method Room Air 08/17/24 11:33 BMI result Body Mass Index 30.2 Appearance: Alert.? Oriented X3.? cvs: rrr, [id number] . res: clear to auscultation ,no rhonchii or wheezing abd: no rebound or guarding ,nt, bs present. ext pulses present , no cyanosis . neuro: axo3 , nonfocal. DS: Data Data Completed and Pending Completed studies during hospitalization [Text1]: Procedures Control Bleeding in Gastrointestinal Tract, Via Natural or Artificial Opening Endoscopic (03/20/24) Detoxification Services for Substance Abuse Treatment (03/20/24) Drainage of Bladder with Drainage Device, Via Natural or Artificial Opening Endoscopic (02/23/24) Drainage of Peritoneal Cavity, Percutaneous Approach (03/20/24) Excision of Cecum, Via Natural or Artificial Opening Endoscopic, Diagnostic (03/02/22) Excision of Rectum, Via Natural or Artificial Opening Endoscopic, Diagnostic (03/02/22) Insertion of Infusion Device into Right Femoral Artery, Percutaneous Approach (03/20/24) Insertion of Infusion Device into Superior Vena Cava, Percutaneous Approach (03/20/24) Inspection of Upper Intestinal Tract, Via Natural or Artificial Opening Endoscopic (02/23/24) Introduction of Mineral-based Topical Hemostatic Agent into Upper GI, Via Natural or Artificial Opening Endoscopic, [employer] (07/23/24) Introduction of Other Therapeutic Substance into Upper GI, Via Natural or Artificial Opening Endoscopic (03/20/24) Introduction of Vasopressor into Peripheral Vein, Percutaneous Approach (02/23/24) Repair Scalp Skin, External Approach (11/20/21) Respiratory Ventilation, 24-96 Consecutive Hours (03/20/24) Transfusion of Nonautologous Frozen Plasma into Peripheral Vein, Percutaneous Approach (03/20/24) Transfusion of Nonautologous Platelets into Peripheral Vein, Percutaneous Approach (02/23/24) Transfusion of Nonautologous Red Blood Cells into Peripheral Vein, Percutaneous Approach (07/23/24) Ultrasonography of Superior Vena Cava, Guidance (03/20/24) Labs on day of discharge: Laboratory Results - last 24 hr 08/17/24 07:56 Hgb 9.0 L Hct 27.1 L Imaging Chest x-ray: Radiologist's impression: ITS Impressions Chest X-Ray 08/12/24 16:34 IMPRESSION: Small linear band of density at the left lower lobe consistent with pneumonia/atelectasis. Electronically signed by: Damien Hunter MD 08/12/2024 06:50 PM EDT RP Abdomen CT 08/14/24 17:03 IMPRESSION: 1. No acute hemorrhage is appreciated on this examination significantly limited by noncontrast technique. 2. Findings are consistent with cirrhosis and portal hypertension. 3. There is wall thickening of the distal esophagus and the gastroesophageal junction. 4. There is mild ascites, and there is generalized anasarca. 5. There is cholelithiasis. 6. There is multi-level thoracolumbar spondylosis. 7. There is moderately severe gynecomastia. 8. There are trace bibasilar effusions. There is moderate posterior left base airspace disease. Fleischner guidelines were followed. Electronically signed by: Reuben Ness MD 08/15/2024 01:56 PM EDT RP Discharge Plan Discharge Anticipated Discharge Date/Time: 08/17/24 11:10 Patient Disposition: Home Health Service Discharge Diagnosis: anemia ,variceal bleeding Referrals: [facility] [Outside] Zechariah Mayo MD [Physician] - 1 Week Fransisco Soria MD [Primary Care Provider] - 1 Week Abhilash Brito MD [Physician] - 1 Week Discharge Medications: Continued mirtazapine 15 mg tablet 15 mg PO BEDTIME melatonin 10 mg tablet 10 mg PO BEDTIME omeprazole 40 mg Capsule,Delayed Release(Dr/Ec) 40 mg PO BID@0630,1630 Qty: 180 0RF quetiapine [Seroquel] 50 mg tablet 50 mg PO DAILY tamsulosin 0.4 mg capsule 0.4 mg PO BEDTIME topiramate 200 mg tablet 200 mg PO BID furosemide 40 mg Tablet 20 mg PO DAILY Qty: 1 0RF Protocol: Hold for SBP< HOLD for SBP < : 90 sucralfate 100 mg/mL Suspension 1 g PO QIDACHS Qty: 1 0RF lactulose 20 gram/30 mL Solution 20 g PO BID Qty: 1 0RF magnesium 200 mg tablet 200 mg PO DAILY Qty: 14 0RF spironolactone 50 mg tablet 50 mg PO QAM Qty: 90 0RF Discharge Orders: Discharge Order (Routine); Ordered 08/17/24 Ordered By: Matt Rosenberg Diet: Advance to usual diet Activity on Discharge: As tolerated Stand Alone Forms: Patient Portal Discharge page Print Language: Macanese Other Ambulatory Orders: Complete Blood Count no Diff (Routine) Timeframe: 1 Week Facility: [facility] - Location: Laboratory Ordered By: Matt Rosenberg Comprehensive Met. Panel (Routine) Timeframe: 1 Week Facility: [facility] - Location: Laboratory Ordered By: Matt Rosenberg Activity Restrictions/Additional Instructions: skin care-monitoring of the coccyx and barrier cream with foam to the coccyx. he also needs frequent repositioning ( directions given to the ). Turn and reposition every 2 hours and as needed for patient comfort. Use pillow or wedges to support off loading positions. patient does not have skin ulcers , has some skin mositure associated skin changes , and vna will continue to moniter it and will help with repositioning and skin treatemnt . Sacrum- Routine Cleansing. Apply preventative sacral foam dressing - peel back and assess twice daily and change every 5-7 days. Bilateral Heels - Elevate heels off of bed surface with pillows. Apply foam dressings to aid in pressure redistribution and protect from friction. Peel back and check twice daily and change ever 5-7 days. Buttock -Routine Cleansing , Apply barrier cream twice daily and after incontinence episodes. Care Plan Goals: Patient came to the hospital because of urinary retention/obstruction and gross hematuria: Subsequently seen by Urology and cystoscopy with a bladder neck dilation and clot evacuation was done and Rojas was placed subsequently patient urine is clear. Patient is to go home with Rojas and follow-up with per Urology outpatient. Patient also has episode of acute upper GI bleed secondary to variceal bleed-for which patient required emergent EGD and hemo clip as well as band ligation of varices was performed, also has moderate portal hypertensive gastropathy, received 2 PRBC, ppi and octreotide. H&H is stable between 8-9 range. GI recommended continue p.o. omeprazole 40 b.i.d., sucralfate. GI also recommended that if further bleeding in future then patient might need tips and for that might need a tertiary care management. Health Concerns: moniter cbc ,bmp,lft's in 1 week. continue rojas until seen by urology. continue omeprazole ,sucralfate outaptient. follow-up with PCP and GI and urology for above mentioned issues. Plan of Treatment: as above. Assessment: as above. Patient Instructions: Gastrointestinal Bleeding (DC), Rojas Catheter Placement and Care (DC), Hematuria (GEN)
--- NOTE | 2024-08-17 11:57 | MHC.CM.PN ---
CM MET WITH PT AT HIS REQUEST PT STATES HE DOES NOT WANT TO GO TO [facility] AND WANTS TO DC HOME HE UNDERSTANDS STR IS THE RECOMMENDATION, BUT STATES HE IS NOT INTERESTED PT WILL DC HOME WITH [facility] FOR PT AND SN FI[facility] TO TRANSPORT
== END 2024-08-17 15:31 | disposition home health service (06) | DRG 698 ==
LOC: HO.ED 16:40 → HO.EDOVER 16:58 → HO.S3 17:15 → HO.IMC 08-14 19:37
PROVIDERS: Internal Medicine Gastroenterology; Physician Assistant; Student in an Organized Health Care Education/Training Program; Urology; Admitting Provider Registered Nurse; Emergency Provider Emergency Medicine; PCP Internal Medicine; Visit Provider Internal Medicine
PROC: 0T7C8ZZ Dilation of Bladder Neck, Via Natural or Artificial Opening Endoscopic (ICD-10-PCS; principal; 2024-08-12 19:00)
PROC: 06L38CZ Occlusion of Esophageal Vein with Extraluminal Device, Via Natural or Artificial Opening Endoscopic (ICD-10-PCS; principal; 2024-08-14 16:50)
DX: N32.0 Bladder-neck obstruction (principal); I85.11 Secondary esophageal varices with bleeding; K22.11 Ulcer of esophagus with bleeding; D62 Acute posthemorrhagic anemia; K76.6 Portal hypertension; F43.10 Post-traumatic stress disorder, unspecified; F17.210 Nicotine dependence, cigarettes, uncomplicated; F10.20 Alcohol dependence, uncomplicated; R33.8 Other retention of urine; N40.1 Benign prostatic hyperplasia with lower urinary tract symptoms; K31.89 Other diseases of stomach and duodenum; I10 Essential (primary) hypertension; E78.5 Hyperlipidemia, unspecified; N36.5 Urethral false passage; Z71.6 Tobacco abuse counseling; K70.30 Alcoholic cirrhosis of liver without ascites; R31.0 Gross hematuria; Z85.46 Personal history of malignant neoplasm of prostate; Z79.899 Other long term (current) drug therapy
CPT/HCPCS: 36415; 71046; 74150; 80048; 80053; 81001; 81003; 83605; 84132; 85014; 85018; 85025; 85027; 86850; 86900; 86901; 86923; 87086; 99285; C1758; C1769; J0330; J0696; J2003; J2270; J2354; J2405; J2470; J2704; J3010; J3430; P9016; P9047

== ENCOUNTER → 2024-08-12 12:17 | Outpatient (BNV) | payer MEDICARE, SELFPAY | PROVIDERS: Emergency Provider Emergency Medicine; PCP Internal Medicine; Visit Provider Urology | DX: N36.8 Other specified disorders of urethra (principal); R33.9 Retention of urine, unspecified | CPT/HCPCS: 52001; 99222 ==

== ENCOUNTER → 2024-08-12 16:46 | Outpatient (BNV) | payer MEDICARE, SELFPAY | PROVIDERS: Admitting Provider Registered Nurse; Emergency Provider Emergency Medicine; PCP Internal Medicine; Visit Provider Internal Medicine Gastroenterology | DX: I85.00 Esophageal varices without bleeding (principal); K20.90 Esophagitis, unspecified without bleeding; K31.89 Other diseases of stomach and duodenum | CPT/HCPCS: 43244 ==

== ENCOUNTER → 2024-08-12 16:46 | Outpatient (BNV) | payer MEDICARE, SELFPAY | PROVIDERS: Admitting Provider Registered Nurse; Emergency Provider Emergency Medicine; PCP Internal Medicine; Visit Provider Internal Medicine Critical Care Medicine | DX: K76.6 Portal hypertension (principal); K31.89 Other diseases of stomach and duodenum; I85.00 Esophageal varices without bleeding; K92.2 Gastrointestinal hemorrhage, unspecified | CPT/HCPCS: 99223 ==

== ENCOUNTER → 2024-08-12 16:46 | Outpatient (BNV) | payer MEDICARE, SELFPAY | PROVIDERS: Admitting Provider Registered Nurse; Emergency Provider Emergency Medicine; PCP Internal Medicine; Visit Provider Registered Nurse | DX: D64.9 Anemia, unspecified (principal) | CPT/HCPCS: 99222; 99232; 99239; G0180 ==

== ENCOUNTER 2024-08-18 07:08 | Emergency (ER) | payer MEDICARE, SELFPAY ==
[2024-08-18 07:15] VITALS: BP 121/53; BP 130/76; PULSE 65; PULSE 78; RESP 18; TEMP 36.8; O2SAT 100; O2SAT 98; BMI 31.4
--- NOTE | 2024-08-18 07:27 | PC.NURSE ---
this nurse looked at past documentation to see the size of cath used, pt states they had a very difficult time getting the cath in. according to notes- urology was called to attempt and pt was ultimately brought to the OR. provider was notified of this finding.
--- NOTE | 2024-08-18 07:44 | ED.MALEGU ---
HPI - Male Genitourinary General Chief complaint: Urogenital-Male Stated complaint: CATHETER FELL OUT Time Seen by Provider: 08/18/24 07:52 Source: patient and EMS Mode of arrival: EMS Limitations: no limitations History of Present Illness ED Provider: Latrell RAMIREZ HPI Narrative: This is a 59-year-old male history of NATHANIEL, urethral obstruction, anemia, dysphagia, esophageal varices, anasarca, hypertension, hyperlipidemia, depression, anxiety, alcoholic cirrhosis of the liver presenting to the emergency department status post accidentally pulling out his Barber catheter. Reports some blood in urine afterwards. This happened earlier today. He reports Barber catheter was placed by specialist in the operating room. Denies fevers, chills, chest pain, shortness of breath, nausea, vomiting, abdominal pain. Related Data Home Medications ?Medication ?Instructions ?Recorded ?Confirmed melatonin 10 mg tablet 10 mg PO BEDTIME Insomnia 11/13/23 08/12/24 mirtazapine 15 mg tablet 15 mg PO BEDTIME 11/13/23 08/12/24 quetiapine 50 mg tablet (Seroquel) 50 mg PO DAILY 03/20/24 08/12/24 tamsulosin 0.4 mg capsule 0.4 mg PO BEDTIME 07/23/24 08/12/24 topiramate 200 mg tablet 200 mg PO BID 07/23/24 08/12/24 Previous Rx's ?Medication ?Instructions ?Recorded furosemide 40 mg tablet 20 mg PO DAILY #1 tab 07/31/24 lactulose 20 gram/30 mL oral 20 g (30 mL) PO BID #1 mL 07/31/24 solution sucralfate 100 mg/mL oral 1 g (10 mL) PO QIDACHS #1 mL 07/31/24 suspension magnesium 200 mg tablet 200 mg PO DAILY #14 tabs 08/01/24 spironolactone 50 mg tablet 50 mg PO QAM #90 tabs 08/11/24 omeprazole 40 mg capsule,delayed 40 mg PO BID@0630,1630 #180 caps 08/17/24 release cefdinir 300 mg capsule 300 mg PO BID 5 days #10 caps 08/18/24 Allergies Allergy/AdvReac Type Severity Reaction Status Date / Time Fish Containing Products Allergy Severe THROAT Verified 08/18/24 07:18 SWELLING peanut [Peanut] Allergy Severe THROAT Verified 08/18/24 07:18 SWELLING Review of Systems Review of Systems: Yes all other systems are reviewed and are negative [facility] Past Medical History Attestation statement: The following information was validated with the patient. Source: old records reviewed and nursing notes reviewed Medical History Alcoholic hepatitis Thrombocytopenia Nausea & vomiting Hyponatremia Acute hypokalemia Alcohol dependence Ascites Congestive heart failure Anemia ETOH abuse Alcoholic cirrhosis PTSD (post-traumatic stress disorder) Hyponatremia Acute hyponatremia NATHANIEL (acute kidney injury) Acute metabolic encephalopathy Falls Alcoholic cirrhosis of liver with ascites Prostate cancer Depression Hyperlipidemia Hypertension Anxiety Social History Social History Household Members: Significant Other Household Members Other:: fiancee Housing: Condominium Do you presently have visiting nurse or other home services: No (complaint operator's are going to be coming to the house.) Unable to assess alcohol history related to: Refusing to respond Alcohol intake: former Comment: bilateral wrist restraints for airway safety Patient Tobacco Use Status: Current everyday Tobacco user Tobacco use type: Cigarette Cigarette Packs Per Day: 3 Cigarettes Per Day: 3 Years Smoked: 20 Smoked in Last 30 Days: Yes e-Cigarette/Vaping Use: Never Used Second Hand Smoke Exposure: No Use of substances other than those prescribed or required for medical reasons: Yes Substance Use Type: Other Advance Directives: Yes Advance Directives on File: Yes Advance Directives Date on File: 11/11/21 Do you have a plan to hurt others: No Plan service: No Current occupational status: disabled Physical Exam Vital Signs: Vital Signs: Last Vital Signs Temp 97.4 F 08/18/24 09:57 Pulse 65 08/18/24 09:57 Resp 12 08/18/24 09:57 BP 106/55 L 08/18/24 09:57 Pulse Ox 100 08/18/24 09:57 O2 Del Method Room Air 08/18/24 09:57 BMI result Body Mass Index 31.4 Vital signs stable Appearance: Alert.? Oriented X3.? No acute distress.? Head: Normocephalic, atraumatic, no step-offs or deformities Eyes: Pupils equal, round and reactive to light.? ENT: Pharynx normal.? Neck: Normal inspection.? Neck supple.? CVS: Normal heart rate and rhythm.? Pulses normal.? Respiratory: No respiratory distress.? Breath sounds normal.? Abdomen: Soft and nontender.? Skin: Skin warm and dry.? Normal skin color.? Normal skin turgor.? Extremities: No lower extremity edema.? No calf ttp. 5/5 strength to bilateral upper and lower extremities Neuro: Oriented X 3.? No motor deficit.? No sensory deficit. CN 2-12 intact Course Reevaluation(s) Reevaluation #1: Patient's urine pending. Urology Dr. Mayo did come down to place Barber catheter he did have a difficult time inserting normal Barber catheter he did have to use a guidewire. Patient tolerated procedure well. No complications. Patient to be discharged with cefdinir, advised to return with new or worsening symptoms. Educated patient on diagnosis and treatment plan, answered all question, patient verbalizes understanding. At this time patient will be discharged home, advised to return with new or worsening symptoms. Educated on worrisome signs and symptoms and when to return. At this time I feel comfortable discharge home. Time: 11:33 Medications Administered Discontinued Medications Generic Name Dose Route Start Last Admin Trade Name Taz PRN Reason Stop Dose Admin Morphine Sulfate 15 mg 08/18/24 09:14 08/18/24 09:17 Morphine Sulfate Immed Release 15 Mg Tablet PO 08/18/24 09:15 15 mg ONCE ONE Administration Morphine Sulfate 4 mg 08/18/24 11:06 08/18/24 11:30 Morphine Sulfate 4 Mg/Ml Cartridge IVPUSH 08/18/24 11:07 Not Given ONCE ONE Protocol Medical Decision Making Medical Decision Making MDM Narrative: This is a 59-year-old male presenting to the emergency department status post accidentally pulling out his Barber catheter. Physical exam benign. History and physical exam concerning for mechanical trauma to urethra status post patient pulling out his Barber catheter. Plan is for Barber catheter replacement. Patient is currently being treated with antibiotics. Unlikely UTI or metabolic derangements. Plan will reach out to urology as patient was very difficult to get this Barber catheter into. Will ask them if they would like us to try in the emergency department or they will come down and do it. Differential Diagnosis Differential Diagnoses: The differential diagnosis associated with the presentation includes (History and physical exam concerning for mechanical trauma to urethra status post patient pulling out his Barber catheter. Plan is for Barber catheter replacement. Patient is currently being treated with antibiotics. Unlikely UTI or metabolic derangements.) Admission/Observation Consideration of admission/observation: Escalation of care including admission/observation considered Consult Healthcare Provider Management of the patient was discussed with: Director Of Learning (Dr. Mayo, urology will come and place Barber catheter.) External Record Review External record reviewed: Inpatient record, Office record, Outpatient record, Prior outpatient labs, Prior outpatient radiology, Primary care record and Outside ED record Critical Care Time Critical Care Time Critical Care Time: Yes Total Critical Care Time: 35 Attestation: I attest to this time spent taking care of the patient, obtaining history, physical, reviewing labs, imaging, treatment of patients condition +/- specialist/hospitalist consult Discharge Plan Discharge Clinical Impression: Encounter for Barber catheter replacement Patient Disposition: Home, Self-Care Instructions: Barber Catheter Removal (DC) Additional Instructions: Take your medications as prescribed. If you were prescribed antibiotics today, it is important that you take your medication to their entirety, do not skip any doses, do not finish them early. Follow-up with your primary care provider this week. Return to the emergency department with new or worsening symptoms. Such as fevers, chills, chest pain, shortness of breath, nausea, vomiting, dizziness, headache, vision changes, lethargy In case of emergency call 911 Prescriptions: New cefdinir 300 mg capsule 300 mg PO BID 5 Days Qty: 10 0RF No Action mirtazapine 15 mg tablet 15 mg PO BEDTIME melatonin 10 mg tablet 10 mg PO BEDTIME omeprazole 40 mg Capsule,Delayed Release(Dr/Ec) 40 mg PO BID@0630,1630 Qty: 180 0RF quetiapine [Seroquel] 50 mg tablet 50 mg PO DAILY tamsulosin 0.4 mg capsule 0.4 mg PO BEDTIME topiramate 200 mg tablet 200 mg PO BID furosemide 40 mg Tablet 20 mg PO DAILY Qty: 1 0RF Protocol: Hold for SBP< HOLD for SBP < : 90 sucralfate 100 mg/mL Suspension 1 g PO QIDACHS Qty: 1 0RF lactulose 20 gram/30 mL Solution 20 g PO BID Qty: 1 0RF magnesium 200 mg tablet 200 mg PO DAILY Qty: 14 0RF spironolactone 50 mg tablet 50 mg PO QAM Qty: 90 0RF Referrals: ED Physician,Generic [Physician] - Print Language: Faroese
[2024-08-18 08:11] VITALS: BP 114/58; PULSE 65; RESP 16; TEMP 36.4; O2SAT 100
--- NOTE | 2024-08-18 08:46 | PC.NURSE ---
ed provider has called urology, Dr. Mayo to come in to see patient.
--- NOTE | 2024-08-18 09:02 | MHC.EDTECH ---
pt co sharp ABD pain, bladder scan ordered by provider, performed, pt tolerated poorly due to sever pain, pt guarding his ABD, changed to hospital attire, does not want to take pants off, edema noted on bilateral lower extremities, RN notified.
--- NOTE | 2024-08-18 09:08 | PC.NURSE ---
tech attempted to change patient over to hospital attire, pt refusing to take off pants at this time- urology has yet to arrive. bladder scan performed as pt is now complaining of sharp bladder pain- bladder scan was 149.
[2024-08-18] MEDS: Morphine Sulfate Immed Release 15 MG TABLET PO (09:17)
--- NOTE | 2024-08-18 09:26 | PC.NURSE ---
pt medicated for 06/25 abd pain
[2024-08-18 09:57] VITALS: BP 106/55; PULSE 65; RESP 12; TEMP 36.3; O2SAT 100
--- NOTE | 2024-08-18 10:54 | PC.NURSE ---
MD caceres at bedside
--- NOTE | 2024-08-18 11:13 | P.CNUR_ITS ---
History of Present Illness Consult details Consult date: 08/18/24 Narrative: CC: Urinary retention/nursing unable to place Barber catheter HPI: The patient presented to hospital after his Barber catheter fell out at home. He is known to have an extremely difficult Barber catheter placement. The patient was prepped and draped in usual sterile fashion. 0.035' glidewire was attempted without success. Bedside flexible cystoscope was performed. Cystoscopy was difficult to perform secondary to marked edema with a retracted phallus and difficulty accessing the meatus. Cystoscopy was passed. Prior false passage was noted. The very small urethral opening was noted in the anterior position. Likely we were able to navigate through the obstruction and into the bladder. The Glidewire was then placed through the cystoscope. The cystoscope was removed. An 18 [place] tip catheter was placed. Clear efflux was obtained. 10 cc of sterile water was inflated into the balloon. The Glidewire was removed. The catheter was attached to a drainage bag. The bag was secured to the bed. The catheter was attached to the patient's leg using cath secure. Consult code plus CPT 46943 (Cystourethroscopy, with calibration and/or dilation of urethral stricture or stenosis, with or without meatotomy, with or without injection procedure for cystography, male or female) Review of Systems Constitutional: Constitutional: Reports as per HPI and Reports no additional constitutional complaints Cardiovascular: Cardiovascular: Reports as per HPI and Reports no additional cardiovascular complaints Respiratory: Respiratory: Reports as per HPI and Reports no additional respiratory complaints Gastrointestinal: Gastrointestinal: Reports as per HPI and Reports no additional gastrointestinal complaints Genitourinary: Genitourinary: Reports as per HPI Musculoskeletal: Musculoskeletal: Reports no additional musculoskeletal complaints and Reports as per HPI Neurologic: Reports system reviewed and no additional complaints, except as documented and Reports as per HPI PENDING SALE TO [facility] Past Medical History Medical History Alcoholic hepatitis Thrombocytopenia Nausea & vomiting Hyponatremia Acute hypokalemia Alcohol dependence Ascites Congestive heart failure Anemia ETOH abuse Alcoholic cirrhosis PTSD (post-traumatic stress disorder) Hyponatremia Acute hyponatremia NATHANIEL (acute kidney injury) Acute metabolic encephalopathy Falls Alcoholic cirrhosis of liver with ascites Prostate cancer Depression Hyperlipidemia Hypertension Anxiety Social History Social History Household Members: Significant Other Household Members Other:: fiancee Housing: Condominium Do you presently have visiting nurse or other home services: No (car barn laborer's are going to be coming to the house.) Unable to assess alcohol history related to: Refusing to respond Alcohol intake: former Comment: bilateral wrist restraints for airway safety Patient Tobacco Use Status: Current everyday Tobacco user Tobacco use type: Cigarette Cigarette Packs Per Day: 3 Cigarettes Per Day: 3 Years Smoked: 20 Smoked in Last 30 Days: Yes e-Cigarette/Vaping Use: Never Used Second Hand Smoke Exposure: No Use of substances other than those prescribed or required for medical reasons: Yes Substance Use Type: Other Advance Directives: Yes Advance Directives on File: Yes Advance Directives Date on File: 11/11/21 Do you have a plan to hurt others: No Plan service: No Current occupational status: disabled Meds Allergies Allergy/AdvReac Type Severity Reaction Status Date / Time Fish Containing Products Allergy Severe THROAT Verified 08/18/24 07:18 SWELLING peanut [Peanut] Allergy Severe THROAT Verified 08/18/24 07:18 SWELLING Home Medications ?Medication ?Instructions ?Recorded ?Confirmed ?Last Taken ?Type melatonin 10 mg tablet 10 mg PO BEDTIME Insomnia 11/13/23 08/12/24 08/11/24 History mirtazapine 15 mg tablet 15 mg PO BEDTIME 11/13/23 08/12/24 08/11/24 History quetiapine 50 mg tablet (Seroquel) 50 mg PO DAILY 03/20/24 08/12/24 08/11/24 History tamsulosin 0.4 mg capsule 0.4 mg PO BEDTIME 07/23/24 08/12/24 08/11/24 History topiramate 200 mg tablet 200 mg PO BID 07/23/24 08/12/24 08/11/24 History Physical Exam Vital Signs: Vital Signs: Last Vital Signs Temp 97.4 F 08/18/24 09:57 Pulse 65 08/18/24 09:57 Resp 12 08/18/24 09:57 BP 106/55 L 08/18/24 09:57 Pulse Ox 100 08/18/24 09:57 O2 Del Method Room Air 08/18/24 09:57 BMI result Body Mass Index 31.4 Const: General: cooperative, healthy appearing, comfortable and no acute distress Orientation/consciousness: patient oriented x3 HEENT: Face and sinus: Yes normal facial exam Mouth: moist mucous membranes Neck: Neck: Yes normal visual inspection, Yes full ROM and Yes trachea midline Chest: Chest palpation & inspection: normal inspection of the chest Resp: Effort & Inspection: normal respiratory effort, able to speak in c omplete sentences and no respiratory distress GI: Inspection: Yes normal to inspection Back/Spine/Pelvis: Cervical Spine: normal cervical lordosis Thoracic/Lumbar Spine: thoracic and lumbar spine normal to inspection Skin: General skin exam: no rashes or lesions noted Neuro: General: patient oriented x3, tone normal and moves all extremities Extrem: General: Yes normal to inspection and Yes capillary refill normal Results Labs Labs: All other labs normal. Assessment and Plan (1) Urethral obstruction: Status: Acute Plan Barber catheter placed Four week follow-up catheter removal Procedures Date of Service Date of Service: 08/18/24 Catheter Insertion (Urinary) Date of insertion: 08/18/24 Replacement of catheter present on admission: No Reason for placing: Urinary obstruction Antiseptic solution prep: Povidone-Iodine Topical anesthesia used: Yes Catheter type/location: 2-way Urethral Size (Guamanian): 18 Catheter balloon size (mL): 10 Results: consulted Additional comments: Consult code plus CPT 36940 (Cystourethroscopy, with calibration and/or dilation of urethral stricture or stenosis, with or without meatotomy, with or without injection procedure for cystography, male or female) - see note for detail of placement
[2024-08-18 11:37] VITALS: BP 106/55; PULSE 65; RESP 12; TEMP 36.3; O2SAT 100
[2024-08-18 11:54] LABS: Appearance Urine Turbid; Glucose Urine UA 100 mg/dL (Negative); Leukocyte Esterase Urine Trace (Negative); Nitrite Urine Negative (Negative); Specific Gravity - Urine 1.015 (1.005-1.025); UMIC TRIGGER UACC YES; Urine Blood Large (3+) (Negative); Urine Ketones Negative (Negative); Urine Protein 300 (3+) mg/dL (Neg-Trace)
[2024-08-18 11:55] LABS: Color Urine RED
[2024-08-18 12:02] LABS: Bacteria Urine 1+ (None Seen); Hyaline Casts Urine 0-2 /LPF (0-2); RBC Urine >20 /HPF (0-2); Squamous Epithelial Cell Urine 0-2 /HPF (0-2); UACC Culture Trigger YES; WBC Urine >50 /HPF (0-5)
== END 2024-08-18 12:18 | disposition home or self-care (01) ==
PROVIDERS: Physician Assistant; Emergency Provider Emergency Medicine Emergency Medical Services
DX: R31.9 Hematuria, unspecified (principal); F17.210 Nicotine dependence, cigarettes, uncomplicated; T83.9XXA Unspecified complication of genitourinary prosthetic device, implant and graft, initial encounter; Y73.8 Miscellaneous gastroenterology and urology devices associated with adverse incidents, not elsewhere classified; Y92.89 Other specified places as the place of occurrence of the external cause; Z79.899 Other long term (current) drug therapy
CPT/HCPCS: 51798; 81001; 87086; 87088; 87186; 96374; 99284; 99285

== ENCOUNTER → 2024-08-18 07:42 | Outpatient (BNV) | payer MEDICARE, SELFPAY | PROVIDERS: Emergency Provider Emergency Medicine Emergency Medical Services; Visit Provider Urology | DX: N35.914 Unspecified anterior urethral stricture, male (principal); N36.8 Other specified disorders of urethra | CPT/HCPCS: 52281; 99283 ==

== ENCOUNTER 2024-08-23 17:10 | Outpatient (REF) | payer MEDICARE, SELFPAY ==
[2024-08-23 17:12] LABS: MANUAL DIFF FLAG NO
[2024-08-23 17:17] LABS: Basophils Absolute Auto 0.1 X10*3/uL (0.0-0.2); Basophils Percent Auto 0.5 % (0-2); Eosinophils Absolute Auto 0.2 X10*3/uL (0.0-0.4); Eosinophils Percent Auto 1.8 % (0-4); Hematocrit 27.4 % (42.0-52.0); Hemoglobin 9.3 g/dl (14.0-18.0); Imm Gran Abs Auto 0.06 X10*3/uL (0.00-0.03); Imm Gran Pct Auto 0.6 % (0.0-0.4); Lymphocytes Absolute Auto 1.6 X10*3/uL (1.2-4.9); Mean Corpuscular HGB Conc 33.9 g/dl (31.0-36.0); Mean Corpuscular Hemoglobin 32.5 pg (27.0-33.0); Mean Corpuscular Volume 95.8 fL (80.0-98.0); Mean Platelet Volume 9.8 fL (9.4-12.4); Monocytes Absolute Auto 0.6 X10*3/uL (0.1-1.2); Monocytes Percent Auto 6.3 % (2-11); Neutrophils Absolute Auto 7.6 x10*3/uL (2.0-8.3); Neutrophils Percent Auto 74.8 % (45-73); Platelet Count 122 X10*3/uL (160-400); Red Blood Count 2.86 X10*6/uL (4.60-5.80); Red Cell Distribution Width 17.5 % (11.0-16.0); White Blood Count 10.2 X10*3/uL (4.8-10.8)
[2024-08-23 17:54] LABS: Alanine Aminotransferase 11 U/L (0-40); Albumin Level 2.2 g/dL (3.5-5.0); Alkaline Phosphatase 181 U/L (39-117); Anion Gap 11 (12-20); Aspartate Amino Transferase 32 U/L (5-37); Bilirubin Direct 1.9 mg/dL (0.0-0.5); Bilirubin Total 3.7 mg/dL (0.0-1.0); Blood Urea Nitrogen 10 mg/dL (9-16); Calcium 7.4 mg/dL (8.4-10.2); Carbon Dioxide 19 mmol/L (22-29); Chloride 110 mmol/L (96-108); Estimated Glomerular Filt Rate > 60; Glucose Random 90 mg/dL (60-115); Potassium 2.9 mmol/L (3.3-5.1); Sodium 137 mmol/L (135-145); Total Protein 6.1 g/dL (6.5-8.0)
== END 2024-08-23 17:11 | disposition home or self-care (01) ==
LOC: HO.HVNA 17:10
PROVIDERS: Visit Provider Internal Medicine
DX: K76.9 Liver disease, unspecified (principal)
CPT/HCPCS: 36415; 80048; 80076; 85025

== ENCOUNTER 2024-08-24 07:17 | Inpatient (IN) | payer MEDICARE, SELFPAY ==
[2024-08-24] VITALS (8 sets, daily range): BP systolic 108–132; BP diastolic 50–80; PULSE 63–77; RESP 14–18; TEMP 36.4–37.5; O2SAT 96–100; BMI 30.1; BMI 29.7
--- NOTE | 2024-08-24 07:31 | ECG_ITS ---
Test Reason : LOW POTASSIUM Blood Pressure : / mmHG Vent. Rate : 065 BPM Atrial Rate : 065 BPM P-R Int : 162 ms QRS Dur : 112 ms QT Int : 460 ms P-R-T Axes : 025 -25 016 degrees QTc Int : 478 ms Normal sinus rhythm Septal infarct , age undetermined Abnormal ECG When compared with ECG of 23-JUL-2024 12:02, No significant change was found Referred By: Kishore Grullon Electronically Signed By:ELIECER RAWLS MD
--- NOTE | 2024-08-24 07:58 | PC.NURSE ---
patient presents to the ED, had lab work done yesterday by visiting home services, patient potassium noted 2.9. patient has no current complaints, placed on tele monitor normal sinus rhythm. IV placed in the right FA #20 by this RN, labs being drawn and sent. patient is alert and oriented x3 at this time. patient noted to be jaundice which is baseline, skin noted to be dry and intact. patient lower extremities noted to be edematous, pitting edema. patient has rojas in place, red urine minimal clots.
[2024-08-24] MEDS: Linezolid/D5W 600 MG/300 ML PIGGYBACK 300 MG IV (08:02)
[2024-08-24 08:14] LABS: Basophils Absolute Auto 0.1 X10*3/uL (0.0-0.2); Basophils Percent Auto 0.4 % (0-2); Eosinophils Absolute Auto 0.1 X10*3/uL (0.0-0.4); Eosinophils Percent Auto 1.2 % (0-4); Hematocrit 29.4 % (42.0-52.0); Imm Gran Abs Auto 0.09 X10*3/uL (0.00-0.03); Imm Gran Pct Auto 0.8 % (0.0-0.4); Lymphocytes Absolute Auto 1.4 X10*3/uL (1.2-4.9); Lymphocytes Percent Auto 12.2 % (20-40); MANUAL DIFF FLAG SCAN; Mean Corpuscular Hemoglobin 32.7 pg (27.0-33.0); Mean Corpuscular Volume 96.1 fL (80.0-98.0); Mean Platelet Volume 10.4 fL (9.4-12.4); Monocytes Absolute Auto 0.7 X10*3/uL (0.1-1.2); Monocytes Percent Auto 6.3 % (2-11); Neutrophils Absolute Auto 8.9 x10*3/uL (2.0-8.3); Neutrophils Percent Auto 79.1 % (45-73); PLT CLUMP 1; Red Blood Count 3.06 X10*6/uL (4.60-5.80); Red Cell Distribution Width 17.8 % (11.0-16.0); SCAN SMEAR FLAG 1
[2024-08-24 08:16] LABS: White Blood Count 11.3 X10*3/uL (4.8-10.8)
--- NOTE | 2024-08-24 08:19 | ED.GENADULT ---
HPI - General Adult General Chief complaint: Recheck/Abnormal Lab/Rx Stated complaint: BLOOD IN URINE Source: patient and EMS Mode of arrival: EMS Limitations: no limitations History of Present Illness ED Provider: GENESIS Grullon HPI narrative: 59-year-old male history presents with blood in urine in Rojas bag, fatigue malaise, and concerns that he has a low potassium he was told his potassium was 2.9 and was told to come into the emergency department. He reports he is overall feeling tired however no other complaints. He has had frequent UTIs. Denies fevers, chills, chest pain, shortness of breath, flank pain, abdominal pain, nausea, vomiting. Related Data Home Medications ?Medication ?Instructions ?Recorded ?Confirmed melatonin 10 mg tablet 10 mg PO BEDTIME Insomnia 11/13/23 08/12/24 mirtazapine 15 mg tablet 15 mg PO BEDTIME 11/13/23 08/12/24 quetiapine 50 mg tablet (Seroquel) 50 mg PO DAILY 03/20/24 08/12/24 tamsulosin 0.4 mg capsule 0.4 mg PO BEDTIME 07/23/24 08/12/24 topiramate 200 mg tablet 200 mg PO BID 07/23/24 08/12/24 Previous Rx's ?Medication ?Instructions ?Recorded furosemide 40 mg tablet 20 mg PO DAILY #1 tab 07/31/24 lactulose 20 gram/30 mL oral 20 g (30 mL) PO BID #1 mL 07/31/24 solution sucralfate 100 mg/mL oral 1 g (10 mL) PO QIDACHS #1 mL 07/31/24 suspension magnesium 200 mg tablet 200 mg PO DAILY #14 tabs 08/01/24 spironolactone 50 mg tablet 50 mg PO QAM #90 tabs 08/11/24 omeprazole 40 mg capsule,delayed 40 mg PO BID@0630,1630 #180 caps 08/17/24 release cefdinir 300 mg capsule 300 mg PO BID 5 days #10 caps 08/18/24 Allergies Allergy/AdvReac Type Severity Reaction Status Date / Time Fish Containing Products Allergy Severe THROAT Verified 08/24/24 07:29 SWELLING peanut [Peanut] Allergy Severe THROAT Verified 08/24/24 07:29 SWELLING Review of Systems Review of Systems: Yes all other systems are reviewed and are negative PMFSH Past Medical History Attestation statement: The following information was validated with the patient. Source: old records reviewed and nursing notes reviewed Medical History Urethral obstruction Acute urinary retention Gross hematuria Alcoholic hepatitis Thrombocytopenia Nausea & vomiting Hyponatremia Acute hypokalemia Alcohol dependence Ascites Congestive heart failure Anemia ETOH abuse Alcoholic cirrhosis PTSD (post-traumatic stress disorder) Hyponatremia Acute hyponatremia NATHANIEL (acute kidney injury) Acute metabolic encephalopathy Falls Alcoholic cirrhosis of liver with ascites Prostate cancer Depression Hyperlipidemia Hypertension Anxiety Social History Social History Household Members: Significant Other Household Members Other:: fiancee Housing: Condominium Do you presently have visiting nurse or other home services: No (forklift operator's are going to be coming to the house.) Unable to assess alcohol history related to: Refusing to respond Alcohol intake: former Comment: bilateral wrist restraints for airway safety Patient Tobacco Use Status: Current everyday Tobacco user Tobacco use type: Cigarette Cigarette Packs Per Day: 3 Cigarettes Per Day: 3 Years Smoked: 20 e-Cigarette/Vaping Use: Never Used Second Hand Smoke Exposure: No Substance Use Type: Other Advance Directives: Yes Advance Directives on File: Yes Advance Directives Date on File: 04/03/24 service: No Current occupational status: disabled Physical Exam ED Vital Signs: Vital Signs - 24 hr 08/24/24 07:28 08/24/24 09:09 Temperature 98.3 F 98.4 F Pulse Rate 66 69 Respiratory Rate 14 18 Blood Pressure 117/50 L 126/66 Pulse Oximetry 99 100 Oxygen Delivery Method Room Air BMI result Body Mass Index 30.1 vss Appearance: Alert.? Oriented X3.? No acute distress.? Head: Normocephalic, atraumatic, no step-offs or deformities Eyes: Pupils equal, round and reactive to light.? Neck: Normal inspection.? Neck supple.? CVS: Normal heart rate and rhythm.? Pulses normal.? Respiratory: No respiratory distress.? Breath sounds normal.? Abdomen: Soft and nontender.? Skin: Skin warm and dry.? Normal skin color.? Normal skin turgor.? Extremities: No lower extremity edema.? No calf ttp. 5/5 strength to bilateral upper and lower extremities Neuro: Oriented X 3.? No motor deficit.? No sensory deficit. CN 2-12 intact Course Reevaluation(s) Reevaluation #1: Patient with elevated white count 11.3 although he just completed antibiotic treatment with cefdinir. Chemistry with down trending bicarb, chloride chronically high. Potassium within normal range. Chronic alk-phos elevation. Chronic hyperbilirubinemia likely secondary to cirrhosis. No abdominal tenderness on exam, mild ascites, unlikely SBP urine with positive/moderate leukocyte esterases, no nitrates however 4+ bacteria I am concerned for UTI. Patient given antibiotics were tailored based off of his urine culture. Plan is hospital admission Time: 10:56 Medications Administered Discontinued Medications Generic Name Dose Route Start Last Admin Trade Name Freq PRN Reason Stop Dose Admin Linezolid 600 mg in 300 mls @ 300 mls/hr 08/24/24 07:19 08/24/24 09:09 Zyvox/D5w IV 08/24/24 08:18 Infused ONCE ONE Infusion Medical Decision Making Medical Decision Making [facility] [place] Narrative: 59-year-old male presents with concerns his potassium is low, fatigue, malaise, bllod in urine PE- benign. Blood noted in rojas bag Hx and pe concerning for UTI versus cystitis. Will rule out metabolic derangements and see where patient's potassium is today. No signs of pyelo or acute abdomen. Plan labs, urine. Differential Diagnosis Differential Diagnoses: The differential diagnosis associated with the presentation includes (Hx and pe concerning for UTI versus cystitis. Will rule out metabolic derangements and see where patient's potassium is today. No signs of pyelo or acute abdomen.) Admission/Observation Consideration of admission/observation: Escalation of care including admission/observation considered Lab Data [facility] [place] Lab Attestation statement: I reviewed the patient's lab results. 08/24/24 07:57 08/24/24 08:49 Labs: Lab Results 08/24/24 08/24/24 08/24/24 Range/Units 07:57 08:49 09:44 WBC 11.3 H (4.8-10.8) X10*3/uL RBC 3.06 L (4.60-5.80) X10*6/uL Hgb 10.0 L (14.0-18.0) g/dl Hct 29.4 L (42.0-52.0) % MCV 96.1 (80.0-98.0) fL MCH 32.7 (27.0-33.0) pg MCHC 34.0 (31.0-36.0) g/dl RDW 17.8 H (11.0-16.0) % Plt Count 95 L (160-400) X10*3/uL MPV 10.4 (9.4-12.4) fL Immature Gran % (Auto) 0.8 H (0.0-0.4) % Neut % (Auto) 79.1 H (45-73) % Lymph % (Auto) 12.2 L (20-40) % Parker % (Auto) 6.3 (2-11) % Eos % (Auto) 1.2 (0-4) % Baso % (Auto) 0.4 (0-2) % Lymph # (Auto) 1.4 (1.2-4.9) X10*3/uL Parker # (Auto) 0.7 (0.1-1.2) X10*3/uL Eos # (Auto) 0.1 (0.0-0.4) X10*3/uL Baso # (Auto) 0.1 (0.0-0.2) X10*3/uL Abs Immat Gran (auto) 0.09 H (0.00-0.03) X10*3/uL Absolute Neuts (auto) 8.9 H (2.0-8.3) x10*3/uL Absolute Nucleated RBC 0.000 (0.0-0.012) X10*3/uL Nucleated RBC % (auto) 0.0 (0.0-0.2) /100WBC Smear Tech's Comments VERIFIED O2 Saturation 100.0 % ABG pH at Pt Temp 7.48 H (7.35-7.45) ABG pCO2 at Pt Temp 26 L (32-45) mmHg ABG pO2 at Pt Temp 137 H (83-108) mmHg ABG HCO3 20 L (22-26) mmol/L ABG Base Excess (Actual) -2.2 mmol/L Sodium 135 (135-145) mmol/L Potassium 3.3 (3.3-5.1) mmol/L Chloride 112 H (96-108) mmol/L Carbon Dioxide 14 L (22-29) mmol/L Anion Gap 12 (12-20) BUN 9 (9-16) mg/dL Creatinine 0.75 (0.5-1.4) mg/dL Estim Creat Clear Calc 119.0 Estimated GFR > 60 Random Glucose 111 (60-115) mg/dL Lactic Acid 2.0 (0.5-2.0) mmol/L Calcium 7.7 L (8.4-10.2) mg/dL Total Bilirubin 3.7 H (0.0-1.0) mg/dL AST 34 (5-37) U/L ALT 6 (0-40) U/L Alkaline Phosphatase 182 H (39-117) U/L Total Protein 6.2 L (6.5-8.0) g/dL Albumin 1.8 L (3.5-5.0) g/dL Urine Color Urine Appearance Urine pH (5.0-9.0) Ur Specific Circle (1.005-1.025) Urine Protein (Neg-Trace) mg/dL Urine Glucose (UA) (Negative) mg/dL Urine Ketones (Negative) mg/dL Urine Blood (Negative) Urine Nitrite (Negative) Ur Leukocyte Esterase (Negative) Urine RBC (0-2) /HPF Urine WBC (0-5) /HPF Ur Squamous Epith Cells (0-2) /HPF Urine Bacteria (None Seen) Hyaline Casts (0-2) /LPF Urine Yeast 08/24/24 Range/Units 09:49 WBC (4.8-10.8) X10*3/uL RBC (4.60-5.80) X10*6/uL Hgb (14.0-18.0) g/dl Hct (42.0-52.0) % MCV (80.0-98.0) fL MCH (27.0-33.0) pg MCHC (31.0-36.0) g/dl RDW (11.0-16.0) % Plt Count (160-400) X10*3/uL MPV (9.4-12.4) fL Immature Gran % (Auto) (0.0-0.4) % Neut % (Auto) (45-73) % Lymph % (Auto) (20-40) % Parker % (Auto) (2-11) % Eos % (Auto) (0-4) % Baso % (Auto) (0-2) % Lymph # (Auto) (1.2-4.9) X10*3/uL Parker # (Auto) (0.1-1.2) X10*3/uL Eos # (Auto) (0.0-0.4) X10*3/uL Baso # (Auto) (0.0-0.2) X10*3/uL Abs Immat Gran (auto) (0.00-0.03) X10*3/uL Absolute Neuts (auto) (2.0-8.3) x10*3/uL Absolute Nucleated RBC (0.0-0.012) X10*3/uL Nucleated RBC % (auto) (0.0-0.2) /100WBC Smear Tech's Comments O2 Saturation % ABG pH at Pt Temp (7.35-7.45) ABG pCO2 at Pt Temp (32-45) mmHg ABG pO2 at Pt Temp (83-108) mmHg ABG HCO3 (22-26) mmol/L ABG Base Excess (Actual) mmol/L Sodium (135-145) mmol/L Potassium (3.3-5.1) mmol/L Chloride (96-108) mmol/L Carbon Dioxide (22-29) mmol/L Anion Gap (12-20) BUN (9-16) mg/dL Creatinine (0.5-1.4) mg/dL Estim Creat Clear Calc Estimated GFR Random Glucose (60-115) mg/dL Lactic Acid (0.5-2.0) mmol/L Calcium (8.4-10.2) mg/dL Total Bilirubin (0.0-1.0) mg/dL AST (5-37) U/L ALT (0-40) U/L Alkaline Phosphatase (39-117) U/L Total Protein (6.5-8.0) g/dL Albumin (3.5-5.0) g/dL Urine Color RED Urine Appearance Hazy Urine pH 6.5 (5.0-9.0) Ur Specific Circle 1.020 (1.005-1.025) Urine Protein 100 (2+) H (Neg-Trace) mg/dL Urine Glucose (UA) Negative (Negative) mg/dL Urine Ketones Trace (Negative) mg/dL Urine Blood Large (3+) H (Negative) Urine Nitrite See Note (Negative) Ur Leukocyte Esterase Moderate (2+) H (Negative) Urine RBC >20 H (0-2) /HPF Urine WBC >50 H (0-5) /HPF Ur Squamous Epith Cells 6-10 (0-2) /HPF Urine Bacteria 4+ (None Seen) Hyaline Casts 0-2 (0-2) /LPF Urine Yeast Present Critical Care Time Critical Care Time Critical Care Time: Yes Total Critical Care Time: 35 Attestation: I attest to this time spent taking care of the patient, obtaining history, physical, reviewing labs, imaging, treatment of patients condition +/- specialist/hospitalist consult Discharge Plan Discharge Clinical Impression: UTI (urinary tract infection), Cirrhosis Patient Disposition: Still a Patient Instructions: Cirrhosis (ED), Urinary Tract Infection in Men (ED) Prescriptions: No Action mirtazapine 15 mg tablet 15 mg PO BEDTIME melatonin 10 mg tablet 10 mg PO BEDTIME omeprazole 40 mg Capsule,Delayed Release(Dr/Ec) 40 mg PO BID@0630,1630 Qty: 180 0RF quetiapine [Seroquel] 50 mg tablet 50 mg PO DAILY tamsulosin 0.4 mg capsule 0.4 mg PO BEDTIME topiramate 200 mg tablet 200 mg PO BID furosemide 40 mg Tablet 20 mg PO DAILY Qty: 1 0RF Protocol: Hold for SBP< HOLD for SBP < : 90 sucralfate 100 mg/mL Suspension 1 g PO QIDACHS Qty: 1 0RF lactulose 20 gram/30 mL Solution 20 g PO BID Qty: 1 0RF magnesium 200 mg tablet 200 mg PO DAILY Qty: 14 0RF spironolactone 50 mg tablet 50 mg PO QAM Qty: 90 0RF cefdinir 300 mg capsule 300 mg PO BID 5 Days Qty: 10 0RF Print Language: Yoruba
[2024-08-24 08:41] LABS: Platelet Count 95 X10*3/uL (160-400)
[2024-08-24 08:42] LABS: SLIDE REVIEW VERIFIED
[2024-08-24 09:18] LABS: Alanine Aminotransferase 6 U/L (0-40); Albumin Level 1.8 g/dL (3.5-5.0); Alkaline Phosphatase 182 U/L (39-117); Anion Gap 12 (12-20); Aspartate Amino Transferase 34 U/L (5-37); Bilirubin Total 3.7 mg/dL (0.0-1.0); Blood Urea Nitrogen 9 mg/dL (9-16); Calcium 7.7 mg/dL (8.4-10.2); Carbon Dioxide 14 mmol/L (22-29); Chloride 112 mmol/L (96-108); Estimated Glomerular Filt Rate > 60; Glucose Random 111 mg/dL (60-115); Potassium 3.3 mmol/L (3.3-5.1); Sodium 135 mmol/L (135-145); Total Protein 6.2 g/dL (6.5-8.0)
[2024-08-24 09:56] LABS: ABG Base Excess -2.2 mmol/L; ABG HCO3 20 mmol/L (22-26); ABG pCO2 26 mmHg (32-45); ABG pH 7.48 (7.35-7.45); ABG pO2 137 mmHg (83-108)
[2024-08-24 10:09] LABS: Appearance Urine Hazy; Color Urine RED; Glucose Urine UA Negative (Negative); Leukocyte Esterase Urine Moderate (2+) (Negative); PH 6.5 (5.0-9.0); UMIC TRIGGER UACC YES; Urine Blood Large (3+) (Negative); Urine Ketones Trace mg/dL (Negative); Urine Protein 100 (2+) mg/dL (Neg-Trace)
[2024-08-24 10:30] LABS: Bacteria Urine 4+ (None Seen); Hyaline Casts Urine 0-2 /LPF (0-2); RBC Urine >20 /HPF (0-2); UACC Culture Trigger YES; WBC Urine >50 /HPF (0-5)
--- NOTE | 2024-08-24 11:13 | PM.IMHP ---
History of Present Illness Date of Service: 08/24/24 Attending physician on admission: Gaston Solis Chief Complaint: Hypokalemia Pt is a 59-year-old male with a PMH significant for?prostate cancer with urethral obstruction, decompensated alcoholic liver cirrhosis with ascites, esophageal varices with recent UGIB, portal hypertension gastropathy, hx of hypokalemia, chronic indwelling Barber catheter, among others who presents to the ED after routine outpatient labs showed hypokalemia of 2.9. Patient was recently discharged from the hospital 1 week prior on 08/17 after being treated for urinary retention/obstruction and gross hematuria. Patient was seen by Urology and underwent cystoscopy with bladder neck dilation and clot evacuation with Barber placement. During hospitalization patient also had an episode of acute upper GI bleed secondary to variceal bleeding which required emergent EGD and hemoclip as well as band ligation of varices. Patient received 2 units PRBCs, ppi, and octreotide. Was discharged with Barber catheter. Since discharge patient reports that he has been feeling ?okay?, though notes it has been painful to move his bowels or urinate. Has been experiencing 2-3 episodes of liquid diarrhea daily occasionally associated with fecal incontinence. Occasional sharp and stabbing abdominal pain that last 2-3 minutes at a time. Also experiences chronic nausea with at least 1 episode of vomiting daily. Reports loss of appetite and that it has been difficult to keep food or drink down. Has also noticed increased lower leg edema especially in his feet. Denies chest pain/pressure, palpitations. No difficulty breathing or shortness of breath. Denies cough. No fever, chills. Denies recent alcohol consumption, reporting last drink approximately 2 weeks ago. Of note, patient has previous UA from 08/18 grew resistant Enterococcus faecium susceptible only to linezolid and tigecycline. In the ED pt with slightly soft BP of 108/53, vitals otherwise Labs were significant for leukocytosis of 11.3, otherwise grossly unremarkable and around baseline for patient. Stable microcytic anemia of 10.0/29.4. Potassium low normal at 3.3. Renal function baseline. Transaminitis around baseline with bilirubin 3.3 and alk-phos 182. ABG with pH mildly alkalotic at 7.48, pCO2 low at 26, and bicarb low at 20. UA positive for leukocyte esterase, RBCs, WBCs, and 4+ bacteria. Tox screen yesterday positive for marijuana and ethyl alcohol of 31. EKG demonstrated normal sinus rhythm without evidence significant ST elevations or depressions. Pt was treated with linezolid. Pt will be admitted to the hospital for treatment and further evaluation of electrolyte abnormalities and drug resistant UTI. Review of Systems Review of Systems: Negative except for that stated in the HPI Yes all other systems are reviewed and are negative [facility] Medical History Urethral obstruction Acute urinary retention Gross hematuria Alcoholic hepatitis Thrombocytopenia Nausea & vomiting Hyponatremia Acute hypokalemia Alcohol dependence Ascites Congestive heart failure Anemia ETOH abuse Alcoholic cirrhosis PTSD (post-traumatic stress disorder) Hyponatremia Acute hyponatremia NATHANIEL (acute kidney injury) Acute metabolic encephalopathy [place] Alcoholic cirrhosis of liver with ascites Prostate cancer Depression Hyperlipidemia Hypertension Anxiety Social History Household Members: Significant Other Household Members Other:: fiancee Housing: Condominium Do you presently have visiting nurse or other home services: No (irrigation manager's are going to be coming to the house.) Unable to assess alcohol history related to: Refusing to respond Alcohol intake: former Comment: bilateral wrist restraints for airway safety Patient Tobacco Use Status: Current everyday Tobacco user Tobacco use type: Cigarette Cigarette Packs Per Day: 3 Cigarettes Per Day: 3 Years Smoked: 20 e-Cigarette/Vaping Use: Never Used Second Hand Smoke Exposure: No Substance Use Type: Other Advance Directives: Yes Advance Directives on File: Yes Advance Directives Date on File: 04/03/24 service: No Current occupational status: disabled Meds Allergies Allergy/AdvReac Type Severity Reaction Status Date / Time Fish Containing Products Allergy Severe THROAT Verified 08/24/24 07:29 SWELLING peanut [Peanut] Allergy Severe THROAT Verified 08/24/24 07:29 SWELLING Home Medications ?Medication ?Instructions ?Recorded ?Confirmed ?Last Taken ?Type melatonin 10 mg tablet 10 mg PO BEDTIME Insomnia 11/13/23 08/24/24 08/23/24 History mirtazapine 15 mg tablet 15 mg PO BEDTIME 11/13/23 08/24/24 08/23/24 History tamsulosin 0.4 mg capsule 0.4 mg PO BEDTIME 07/23/24 08/24/24 08/23/24 History furosemide 40 mg tablet 40 mg PO DAILY 08/24/24 08/24/24 08/23/24 History omeprazole 40 mg capsule,delayed 40 mg PO DAILY@0630 08/24/24 08/24/24 08/23/24 History release Physical Exam Vital Signs and Narrative: Vital Signs: Last Vital Signs Temp 98.4 F 08/24/24 09:09 Pulse 69 08/24/24 09:09 Resp 18 08/24/24 09:09 BP 126/66 08/24/24 09:09 Pulse Ox 100 08/24/24 09:09 O2 Del Method Room Air 08/24/24 09:09 BMI result Body Mass Index 30.1 General: AOx3, frail-looking, in no acute distress Resp: CTA bilaterally CVS: S1, S2, RRR GI: +BS, mild diffuse tenderness, mildly firm and mild distention Skin: Jaundiced Neuro: Cranial nerves II-XII grossly intact bilaterally. Motor grossly intact bilaterally Extremities: 2+ bilateral pitting edema in lower extremities Psych: Appropriate affect Results Labs 08/24/24 07:57 08/24/24 08:49 Labs: Laboratory Results - last 24 hr 08/24/24 08/24/24 08/24/24 07:57 08:49 09:44 MCV 96.1 MCH 32.7 MCHC 34.0 RDW 17.8 H Plt Count 95 L MPV 10.4 Immature Gran % (Auto) 0.8 H Neut % (Auto) 79.1 H Lymph % (Auto) 12.2 L [place] % (Auto) 6.3 Eos % (Auto) 1.2 Baso % (Auto) 0.4 Lymph # (Auto) 1.4 [place] # (Auto) 0.7 Eos # (Auto) 0.1 Baso # (Auto) 0.1 Abs Immat Gran (auto) 0.09 H Absolute Neuts (auto) 8.9 H Absolute Nucleated RBC 0.000 Nucleated RBC % (auto) 0.0 Smear Tech's Comments VERIFIED O2 Saturation 100.0 ABG pH at Pt Temp 7.48 H ABG pCO2 at Pt Temp 26 L ABG pO2 at Pt Temp 137 H ABG HCO3 20 L ABG Base Excess (Actual) -2.2 Anion Gap 12 Estim Creat Clear Calc 119.0 Estimated GFR > 60 Random Glucose 111 Lactic Acid 2.0 Calcium 7.7 L Total Bilirubin 3.7 H AST 34 ALT 6 Alkaline Phosphatase 182 H Total Protein 6.2 L Albumin 1.8 L Urine Color Urine Appearance Urine pH Ur Specific [place] Urine Protein Urine Glucose (UA) Urine Ketones Urine Blood Urine Nitrite Ur Leukocyte Esterase Urine RBC Urine WBC Ur Squamous Epith Cells Urine Bacteria Hyaline Casts Urine Yeast 08/24/24 09:49 MCV MCH MCHC RDW Plt Count MPV Immature Gran % (Auto) Neut % (Auto) Lymph % (Auto) [place] % (Auto) Eos % (Auto) Baso % (Auto) Lymph # (Auto) [place] # (Auto) Eos # (Auto) Baso # (Auto) Abs Immat Gran (auto) Absolute Neuts (auto) Absolute Nucleated RBC Nucleated RBC % (auto) Smear Tech's Comments O2 Saturation ABG pH at Pt Temp ABG pCO2 at Pt Temp ABG pO2 at Pt Temp ABG HCO3 ABG Base Excess (Actual) Anion Gap Estim Creat Clear Calc Estimated GFR Random Glucose Lactic Acid Calcium Total Bilirubin AST ALT Alkaline Phosphatase Total Protein Albumin Urine Color RED Urine Appearance Hazy Urine pH 6.5 Ur Specific [place] 1.020 Urine Protein 100 (2+) H Urine Glucose (UA) Negative Urine Ketones Trace Urine Blood Large (3+) H Urine Nitrite See Note Ur Leukocyte Esterase Moderate (2+) H Urine RBC >20 H Urine WBC >50 H Ur Squamous Epith Cells 6-10 Urine Bacteria 4+ Hyaline Casts 0-2 Urine Yeast Present Assessment and Plan (1) UTI (urinary tract infection): Status: Acute (2) Hypokalemia: Status: Acute Plan Pt is a 59-year-old male with a PMH significant for?prostate cancer with urethral obstruction, decompensated alcoholic liver cirrhosis with ascites, esophageal varices with recent UGIB, portal hypertension gastropathy, hx of hypokalemia, chronic indwelling Barber catheter, among others who presents to the ED after routine outpatient labs showed hypokalemia of 2.9. Pt will be admitted to the hospital for treatment and further evaluation of electrolyte abnormalities and drug resistant UTI. Acute hypokalemia Labs yesterday with potassium 2.9, today low normal at 3.3 Likely secondary medications: Lactulose and furosemide Continue furosemide, reduced lactulose to 20 g p.o. daily Will supplement with potassium chloride p.o. 20 mEq daily Trend labs Monitor on telemetry Metabolic alkalosis ABG with mixed picture: low pCO@ of 26 and low bicarb of 20 Will supplement with sodium bicarb 650 mg b.i.d. Follow bicarb Multi-drug resistant UTI Patient with dysuria, UA positive for leukocyte esterase, wbc's, and 4+ bacteria UA on 08/18 grew Enterococcus faecium susceptible only to linezolid and tagecycline No sepsis: No tachycardia, tachypnea, fever, or leukocytosis Will treat with linezolid, 08/24/2024 Follow cultures Diarrhea Patient reports 2-3 episodes of liquid diarrhea daily with fecal incontinence Likely secondary to lactulose Will reduce lactulose to 20 g p.o. daily Portal hypertension gastropathy Continue Sucralfate, omeprazole Urinary retention Barber in place Continue tamsulosin Full Code Attending:?Dr. Solis DVT Prophylaxis: Pneumatic compression due to recent esophageal bleeding requiring emergent EGD, clipping, and banding Pt will require a hospitalization of at least two nights for treatment of?acute hypokalemia, metabolic alkalosis, and drug-resistant UTI. Patient will require administration of IV antibiotics, close monitoring labs, and supplementation as necessary. Quality Stroke Does the patient have a stroke diagnosis?: No VTE Prior VTE?: No VTE Risk Level:: Medical - moderate - high VTE Device Contraindication: N/A - Device Ordered VTE Drug Contraindication: Treatment Not Indicated
--- NOTE | 2024-08-24 11:42 | PHA.MEDREC ---
Addendum entered by Jacki Burr RPh 08/24/24 12:08: Reviewed by [facility] Original Note: Pharmacy Consult ? Medication Reconciliation Pharmacy has completed the medication reconciliation. Spoke with patient to confirm medications and then called his fiance (Catalino) to confirm the meds he was unsure about. Patient confirmed his furosemide is 1 tab once daily. He is not taking magnesium or using any liquid medications, nothing OTC either. He confirmed mirtazepine and melatonin. He reports he takes omeprazole once daily instead of BID. He has one more capsule left of his antibiotic. He last took his medications yesterday including the antibiotic. Catalino reports his psychiatrist stopped a lot of his psych meds and has only been filling his mirtazepine and melatonin. Catalino confirmed he is not taking spironolactone.
[2024-08-24] MEDS: Potassium Chloride ER 20 MEQ TAB.ER.PRT PO (12:59)
[2024-08-24] MEDS: Omeprazole 40 MG CAPSULE.DR PO (12:59)
[2024-08-24] MEDS: Furosemide 40 MG TABLET PO (12:59)
[2024-08-24] MEDS: Sodium Bicarbonate 650 MG TABLET PO ×2 (12:59→21:13)
[2024-08-24] MEDS: Tamsulosin HCL 0.4 MG CAPSULE PO (21:12)
[2024-08-24] MEDS: Sucralfate 1 GM TABLET PO (21:12)
[2024-08-24] MEDS: Linezolid 600 MG TABLET PO (21:12)
[2024-08-24] MEDS: Mirtazapine 15 MG TABLET PO (21:13)
[2024-08-24] MEDS: Melatonin 3 MG TABLET 6 MG PO (21:16)
[2024-08-24 22:57] LABS: ABG Refer to POC result
[2024-08-25 03:00] VITALS: BP 112/59; PULSE 74; RESP 18; TEMP 36.5; O2SAT 97
[2024-08-25] MEDS: Omeprazole 40 MG CAPSULE.DR PO (06:07)
[2024-08-25 07:14] VITALS: BP 114/65; PULSE 69; RESP 19; TEMP 36.1; O2SAT 99
[2024-08-25 08:00] LABS: Hematocrit 27.4 % (42.0-52.0); Mean Corpuscular HGB Conc 32.8 g/dl (31.0-36.0); Mean Corpuscular Hemoglobin 31.4 pg (27.0-33.0); Mean Corpuscular Volume 95.5 fL (80.0-98.0); Mean Platelet Volume 9.6 fL (9.4-12.4); Platelet Count 116 X10*3/uL (160-400); Red Blood Count 2.87 X10*6/uL (4.60-5.80); Red Cell Distribution Width 17.7 % (11.0-16.0); White Blood Count 8.9 X10*3/uL (4.8-10.8)
--- NOTE | 2024-08-25 08:06 | MHC.CM.PN ---
CM met with Patient at bedside and addressed IMM with him, providing Patient with the original and a copy has been placed on the chart. Patient lives in a condo with his Fiance, who will provide transport to home. Patient uses a cane and a walker and he is active with [facility]; home/resume said services is the goal and CM has initiated and will follow for dc planning. PCP is Dr. Fransisco Soria and Son/Heath is the HCP. Initialized on 08/25/24 07:59 - END OF NOTE
[2024-08-25 08:18] LABS: Anion Gap 12 (12-20); Blood Urea Nitrogen 9 mg/dL (9-16); Carbon Dioxide 22 mmol/L (22-29); Chloride 106 mmol/L (96-108); Creatinine Clr Calc Pharmacy 110.9; Estimated Glomerular Filt Rate > 60; Glucose Random 99 mg/dL (60-115); Sodium 137 mmol/L (135-145)
[2024-08-25] MEDS: Linezolid 600 MG TABLET PO (09:39)
[2024-08-25] MEDS: Sucralfate 1 GM TABLET PO ×2 (09:39→12:38)
[2024-08-25] MEDS: Sodium Bicarbonate 650 MG TABLET PO (09:39)
[2024-08-25] MEDS: Potassium Chloride ER 20 MEQ TAB.ER.PRT 40 MEQ PO (09:40)
[2024-08-25] MEDS: 0.9 % Sodium Chloride Flush 3 ML SYRINGE IVFLUSH ×2 (09:41)
[2024-08-25 09:55] VITALS: BP 109/51
[2024-08-25] MEDS: Potassium Chloride ER 20 MEQ TAB.ER.PRT PO (09:55)
[2024-08-25] MEDS: Furosemide 40 MG TABLET PO (09:55)
--- NOTE | 2024-08-25 10:23 | PM.DS ---
DS: Providers Provider Date of Service: 08/25/24 Date of admission: 08/24/24 12:01 Date of discharge: 08/25/24 Primary care physician: Frasnisco Soria MD DS: Diagnosis Discharge Diagnosis (1) UTI (urinary tract infection): Status: Acute (2) Hypokalemia: Status: Acute DS: Summary Hospital Course Hospital Course: from initial hpi: 59-year-old male with a PMH significant for?prostate cancer with urethral obstruction, decompensated alcoholic liver cirrhosis with ascites, esophageal varices with recent UGIB, portal hypertension gastropathy, hx of hypokalemia, chronic indwelling Barber catheter, among others who presents to the ED after routine outpatient labs showed hypokalemia of 2.9. Patient was recently discharged from the hospital 1 week prior on 08/17 after being treated for urinary retention/obstruction and gross hematuria. Patient was seen by Urology and underwent cystoscopy with bladder neck dilation and clot evacuation with Barber placement. During hospitalization patient also had an episode of acute upper GI bleed secondary to variceal bleeding which required emergent EGD and hemoclip as well as band ligation of varices. Patient received 2 units PRBCs, ppi, and octreotide. Was discharged with Barber catheter. Since discharge patient reports that he has been feeling ?okay?, though notes it has been painful to move his bowels or urinate. Has been experiencing 2-3 episodes of liquid diarrhea daily occasionally associated with fecal incontinence. Occasional sharp and stabbing abdominal pain that last 2-3 minutes at a time. Also experiences chronic nausea with at least 1 episode of vomiting daily. Reports loss of appetite and that it has been difficult to keep food or drink down. Has also noticed increased lower leg edema especially in his feet. Denies chest pain/pressure, palpitations. No difficulty breathing or shortness of breath. Denies cough. No fever, chills. Denies recent alcohol consumption, reporting last drink approximately 2 weeks ago. Of note, patient has previous UA from 08/18 grew resistant Enterococcus faecium susceptible only to linezolid and tigecycline. In the ED pt with slightly soft BP of 108/53, vitals otherwise Labs were significant for leukocytosis of 11.3, otherwise grossly unremarkable and around baseline for patient. Stable microcytic anemia of 10.0/29.4. Potassium low normal at 3.3. Renal function baseline. Transaminitis around baseline with bilirubin 3.3 and alk-phos 182. ABG with pH mildly alkalotic at 7.48, pCO2 low at 26, and bicarb low at 20. UA positive for leukocyte esterase, RBCs, WBCs, and 4+ bacteria. Tox screen yesterday positive for marijuana and ethyl alcohol of 31. EKG demonstrated normal sinus rhythm without evidence significant ST elevations or depressions. Pt was treated with linezolid. Pt will be admitted to the hospital for treatment and further evaluation of electrolyte abnormalities and drug resistant UTI. hospital course: Patient was admitted for acute hypokalemia which was replaced and improved, he will be discharged on continued potassium supplement. Repeat labs should be obtained in about 1 week. For chronic metabolic acidosis in the setting of chronic respiratory alkalosis will be started on oral bicarb, BmP should be monitored as outpatient. For multidrug resistant UTI he was started on Zyvox and will continue 6 more days on discharge. For portal hypertensive gastropathy will continue on PPI and Carafate. For chronic urinary retention with chronic Barber we will continue follow up with Urology. For alcoholic cirrhosis was continued on Lasix, lactulose. Time Attestation Discharge Coordination Time (in mins): 32 Quality: Safe Use of Opioids Does Pt have an Active Cancer Diagnosis on the Problem List?: No Quality: Stroke Does the patient have a stroke diagnosis?: No Physical Exam Vital Signs: Vital Signs: Last Vital Signs Temp 96.9 F 08/25/24 07:14 Pulse 69 08/25/24 07:14 Resp 19 08/25/24 07:14 BP 109/51 L 08/25/24 09:55 Pulse Ox 99 08/25/24 07:14 O2 Del Method Room Air 08/25/24 07:14 BMI result Body Mass Index 29.7 General: AO X 3, no acute distress Resp: CTA bilateral, no accessory muscles used CVS: S1,S2,RRR GI: soft, non tender, non distended Neuro: motor grossly intact, alert Psych: appropriate affect, appropriate insight DS: Data Data Completed and Pending Completed studies during hospitalization [Text1]: Procedures Control Bleeding in Gastrointestinal Tract, Via Natural or Artificial Opening Endoscopic (03/20/24) Detoxification Services for Substance Abuse Treatment (03/20/24) Dilation of Bladder Neck with Intraluminal Device, Via Natural or Artificial Opening Endoscopic (08/12/24) Drainage of Bladder with Drainage Device, Via Natural or Artificial Opening Endoscopic (02/23/24) Drainage of Peritoneal Cavity, Percutaneous Approach (03/20/24) Excision of Cecum, Via Natural or Artificial Opening Endoscopic, Diagnostic (03/02/22) Excision of Rectum, Via Natural or Artificial Opening Endoscopic, Diagnostic (03/02/22) Extirpation of Matter from Bladder, Via Natural or Artificial Opening Endoscopic (08/12/24) Insertion of Infusion Device into Right Femoral Artery, Percutaneous Approach (03/20/24) Insertion of Infusion Device into Superior Vena Cava, Percutaneous Approach (03/20/24) Inspection of Upper Intestinal Tract, Via Natural or Artificial Opening Endoscopic (02/23/24) Introduction of Mineral-based Topical Hemostatic Agent into Upper GI, Via Natural or Artificial Opening Endoscopic, [employer] (08/12/24) Introduction of Other Therapeutic Substance into Upper GI, Via Natural or Artificial Opening Endoscopic (03/20/24) Introduction of Vasopressor into Peripheral Vein, Percutaneous Approach (02/23/24) Occlusion of Esophageal Vein with Extraluminal Device, Via Natural or Artificial Opening Endoscopic (08/12/24) Repair Scalp Skin, External Approach (11/20/21) Respiratory Ventilation, 24-96 Consecutive Hours (03/20/24) Transfusion of Nonautologous Frozen Plasma into Peripheral Vein, Percutaneous Approach (03/20/24) Transfusion of Nonautologous Platelets into Peripheral Vein, Percutaneous Approach (02/23/24) Transfusion of Nonautologous Red Blood Cells into Peripheral Vein, Percutaneous Approach (08/12/24) Ultrasonography of Superior Vena Cava, Guidance (03/20/24) Labs on day of discharge: Laboratory Results - last 24 hr 08/24/24 08/25/24 09:49 07:17 WBC 8.9 RBC 2.87 L Hgb 9.0 L Hct 27.4 L MCV 95.5 MCH 31.4 MCHC 32.8 RDW 17.7 H Plt Count 116 L MPV 9.6 Absolute Nucleated RBC 0.000 Nucleated RBC % (auto) 0.0 Sodium 137 Potassium 3.0 L Chloride 106 Carbon Dioxide 22 Anion Gap 12 BUN 9 Creatinine 0.80 Estim Creat Clear Calc 110.9 Estimated GFR > 60 Random Glucose 99 Calcium 8.0 L Urine Color RED Urine Appearance Hazy Urine pH 6.5 Ur Specific [place] 1.020 Urine Protein 100 (2+) H Urine Glucose (UA) Negative Urine Ketones Trace Urine Blood Large (3+) H Urine Nitrite See Note Ur Leukocyte Esterase Moderate (2+) H Urine RBC >20 H Urine WBC >50 H Ur Squamous Epith Cells 6-10 Urine Bacteria 4+ Hyaline Casts 0-2 Urine Yeast Present Preliminary micro results at discharge 08/24/24 08:04 Blood Culture - Preliminary Blood - Venous No growth after 24 hours. 08/24/24 07:58 Blood Culture - Preliminary Blood - Venous Prelim: GPR Gram Stain only Discharge Plan Discharge Anticipated Discharge Date/Time: 08/25/24 10:19 Patient Disposition: Home, Self-Care Discharge Diagnosis: hypok, uti, acidosis Referrals: Fransisco Soria MD [Primary Care Provider] - 1 Week Discharge Medications: New linezolid 600 mg Tablet 600 mg PO Q12H Qty: 12 0RF potassium chloride 20 mEq Tablet,Er Particles/Crystals 20 meq PO DAILY Qty: 90 0RF sodium bicarbonate 650 mg Tablet 650 mg PO TID Qty: 270 0RF lactulose 20 gram/30 mL Solution 20 g PO DAILY 90 Days Qty: 2700 0RF sucralfate 1 gram Tablet 1 g PO QIDACHS Qty: 360 0RF Continued mirtazapine 15 mg tablet 15 mg PO BEDTIME melatonin 10 mg tablet 10 mg PO BEDTIME furosemide 40 mg tablet 40 mg PO DAILY Protocol: Hold for SBP< HOLD for SBP < : 90 omeprazole 40 mg capsule,delayed release(DR/EC) 40 mg PO DAILY@0630 tamsulosin 0.4 mg capsule 0.4 mg PO BEDTIME Discontinued cefdinir 300 mg capsule 300 mg PO BID 5 Days Qty: 10 0RF Discharge Orders: Discharge Order (Routine); Ordered 08/25/24 Ordered By: Gaston Solis Diet: Advance to usual diet Activity on Discharge: As tolerated Stand Alone Forms: Patient Portal Discharge page Print Language: Setswana Care Plan Goals: Recovery Health Concerns: UTI, low potassium, metabolic acidosis Plan of Treatment: Take meds as prescribed, 6 more days of Zyvox, added potassium supplement and sodium bicarb, follow-up labs Assessment: See above Patient Instructions: Cirrhosis (ED), Urinary Tract Infection in Men (ED)
--- NOTE | 2024-08-25 10:39 | MHC.CM.PN ---
Patient has been medically cleared for dc to home today, self care.
[2024-08-25 11:23] VITALS: BP 121/58; PULSE 76; RESP 17; TEMP 36.8; O2SAT 99
== END 2024-08-25 15:19 | disposition home or self-care (01) | DRG 690 ==
LOC: HO.ED 10:57 → HO.EDOVER 12:39 → HO.IMC 13:08
PROVIDERS: Physician Assistant; Admitting Provider Student in an Organized Health Care Education/Training Program; Emergency Provider Emergency Medicine; PCP Internal Medicine; Visit Provider Internal Medicine
DX: N39.0 Urinary tract infection, site not specified (principal); K52.1 Toxic gastroenteritis and colitis; K76.6 Portal hypertension; Z16.24 Resistance to multiple antibiotics; E87.3 Alkalosis; E87.6 Hypokalemia; F17.210 Nicotine dependence, cigarettes, uncomplicated; Z71.6 Tobacco abuse counseling; K31.89 Other diseases of stomach and duodenum; Z85.46 Personal history of malignant neoplasm of prostate; R33.9 Retention of urine, unspecified; R31.0 Gross hematuria; T47.3X5A Adverse effect of saline and osmotic laxatives, initial encounter; Z79.899 Other long term (current) drug therapy
CPT/HCPCS: 36415; 80048; 80053; 81001; 81003; 82803; 83605; 85025; 85027; 87040; 87077; 87086; 87088; 87147; 87186; 87205; 93005; 99222; 99285; J2020

== ENCOUNTER → 2024-08-24 07:31 | Outpatient (BNV) | payer MEDICARE, SELFPAY | PROVIDERS: Emergency Provider Emergency Medicine; PCP Internal Medicine; Visit Provider Internal Medicine Cardiovascular Disease | DX: R94.31 Abnormal electrocardiogram [ECG] [EKG] (principal); E87.6 Hypokalemia | CPT/HCPCS: 93010 ==

== ENCOUNTER → 2024-08-24 08:08 | Outpatient (BNV) | payer MEDICARE, SELFPAY | PROVIDERS: Emergency Provider Emergency Medicine; PCP Internal Medicine; Visit Provider Student in an Organized Health Care Education/Training Program | DX: N39.0 Urinary tract infection, site not specified (principal); E87.6 Hypokalemia | CPT/HCPCS: 99222; 99239 ==

== ENCOUNTER 2024-08-25 20:20 | Emergency (ER) | payer MEDICARE, SELFPAY ==
[2024-08-25 20:35] VITALS: BP 130/80; PULSE 88; O2SAT 97; BMI 22.8
[2024-08-25 21:10] VITALS: BP 116/62; PULSE 80; RESP 16; TEMP 36.8; O2SAT 99
--- NOTE | 2024-08-25 21:28 | ED.MALEGU ---
HPI - Male Genitourinary General Chief complaint: Urogenital-Male Stated complaint: rojas cath complications, has uti Time Seen by Provider: 08/25/24 21:27 Source: patient Mode of arrival: ambulatory Limitations: no limitations History of Present Illness ED Provider: luis HERNANDEZ Narrative: Patient's history of prostate cancer status post radiation with indwelling Rojas catheter with been very difficult because of bladder neck scarring had a Rojas catheter placed on 08/18/2024 using cystoscopy comes here as is leaking around the catheter and is not draining Related Data Home Medications ?Medication ?Instructions ?Recorded ?Confirmed melatonin 10 mg tablet 10 mg PO BEDTIME Insomnia 11/13/23 08/24/24 mirtazapine 15 mg tablet 15 mg PO BEDTIME 11/13/23 08/24/24 tamsulosin 0.4 mg capsule 0.4 mg PO BEDTIME 07/23/24 08/24/24 furosemide 40 mg tablet 40 mg PO DAILY 08/24/24 08/24/24 omeprazole 40 mg capsule,delayed 40 mg PO DAILY@0630 08/24/24 08/24/24 release Previous Rx's ?Medication ?Instructions ?Recorded lactulose 20 gram/30 mL oral 20 g (30 mL) PO DAILY 90 days 08/25/24 solution #2,700 mL linezolid 600 mg tablet 600 mg PO Q12H #12 tabs 08/25/24 potassium chloride 20 mEq 20 meq PO DAILY #90 tabs 08/25/24 tablet,extended release(part/cryst) sodium bicarbonate 650 mg tablet 650 mg PO TID #270 tabs 08/25/24 sucralfate 1 gram tablet 1 g PO QIDACHS #360 tabs 08/25/24 Allergies Allergy/AdvReac Type Severity Reaction Status Date / Time Fish Containing Products Allergy Severe THROAT Verified 08/25/24 20:37 SWELLING peanut [Peanut] Allergy Severe THROAT Verified 08/25/24 20:37 SWELLING Review of Systems Review of Systems: Yes all other systems are reviewed and are negative PMFSH Past Medical History Medical History Urethral obstruction Acute urinary retention Gross hematuria Alcoholic hepatitis Thrombocytopenia Nausea & vomiting Hyponatremia Acute hypokalemia Alcohol dependence Ascites Congestive heart failure Anemia ETOH abuse Alcoholic cirrhosis PTSD (post-traumatic stress disorder) Hyponatremia Acute hyponatremia NATHANIEL (acute kidney injury) Acute metabolic encephalopathy Falls Alcoholic cirrhosis of liver with ascites Prostate cancer Depression Hyperlipidemia Hypertension Anxiety Social History Social History Household Members: Significant Other Household Members Other:: Ethalee Housing: Condominium Do you presently have visiting nurse or other home services: Yes ([facility]) Unable to assess alcohol history related to: Refusing to respond Alcohol intake: current Alcohol intake frequency: former alcohol drinker Comment: bilateral wrist restraints for airway safety Patient Tobacco Use Status: Current everyday Tobacco user Tobacco use type: Cigarette Cigarette Packs Per Day: 3 Cigarettes Per Day: 3 Years Smoked: 25 Smoked in Last 30 Days: Yes e-Cigarette/Vaping Use: Never Used Second Hand Smoke Exposure: No Use of substances other than those prescribed or required for medical reasons: No Substance Use Type: Marijuana Advance Directives: Yes Advance Directives on File: Yes Advance Directives Date on File: 04/03/24 Do you have a plan to hurt others: No Plan service: No Current occupational status: disabled Physical Exam Vital Signs: Vital Signs: Last Vital Signs Temp 98.2 F 08/25/24 21:10 Pulse 80 08/25/24 21:10 Resp 16 08/25/24 21:10 BP 116/62 08/25/24 21:10 Pulse Ox 99 08/25/24 21:10 O2 Del Method Room Air 08/25/24 21:10 BMI result Body Mass Index 22.8 Appearance: Alert. Oriented X3. No acute distress. Eyes: Pallor+ icterus+ ENT: Pharynx normal. Oral Mucosa moist Neck: Normal inspection. Neck supple. CVS: Normal heart rate and rhythm. Pulses normal. Respiratory: No respiratory distress. Equal air entry bilateral, no wheezing/rales/rhonchi Abdomen: Soft and nontender. Bowel sounds are present, no mass palpable, no CVA tenderness Skin: Skin warm and dry. Normal skin color. Normal skin turgor. Extremities: ++ lower extremity edema. No calf tenderness Neuro: Oriented X 3. No motor deficit. Medical Decision Making Medical Decision Making MDM Narrative: 16 [place] Rojas catheter was replaced draining yellow color urine with few clots Discharge Plan Discharge Clinical Impression: Encounter for Rojas catheter replacement Patient Disposition: Home, Self-Care Instructions: Rojas Catheter Placement and Care (ED) Additional Instructions: Care for Rojas catheter as advised Drink plenty of fluids Prescriptions: No Action mirtazapine 15 mg tablet 15 mg PO BEDTIME melatonin 10 mg tablet 10 mg PO BEDTIME furosemide 40 mg tablet 40 mg PO DAILY Protocol: Hold for SBP< HOLD for SBP < : 90 omeprazole 40 mg capsule,delayed release(DR/EC) 40 mg PO DAILY@0630 linezolid 600 mg Tablet 600 mg PO Q12H Qty: 12 0RF potassium chloride 20 mEq Tablet,Er Particles/Crystals 20 meq PO DAILY Qty: 90 0RF sodium bicarbonate 650 mg Tablet 650 mg PO TID Qty: 270 0RF lactulose 20 gram/30 mL Solution 20 g PO DAILY 90 Days Qty: 2700 0RF sucralfate 1 gram Tablet 1 g PO QIDACHS Qty: 360 0RF tamsulosin 0.4 mg capsule 0.4 mg PO BEDTIME Print Language: Emirati
--- NOTE | 2024-08-25 21:51 | PC.NURSE ---
Pt aox4 reporting leaking urine out of the rojas catheter. Sheets soiled with urine after voiding. Complete bed change done. Barrier cream applied to the buttocks area as it is red and tender to touch. Catheter irrigated with sterile water. Sediment/clots present. MD at bedside ordered for rojas catheter to be removed. 18Fr rojas cath removed with no complications. Urinal provided to pt for urination. Pt reports burning sensation as pt has a UTI. MD made aware. Monitoring is ongoing.
--- NOTE | 2024-08-25 23:28 | PC.NURSE ---
Bladder scan: 21ml. 16Fr rojas cath inserted. 20ml with 20ml of dark yellow urine with small clots/sediment. Pt tolerated well.
[2024-08-25 23:35] VITALS: BP 97/46; PULSE 82; RESP 14; TEMP 36.8; O2SAT 99
[2024-08-25 23:40] VITALS: BP 97/46; PULSE 82; RESP 14; TEMP 36.8; O2SAT 99
[2024-08-25] MEDS: Potassium Chloride ER 20 MEQ TAB.ER.PRT PO (23:41)
== END 2024-08-26 00:34 | disposition home or self-care (01) ==
PROVIDERS: Emergency Provider Internal Medicine
DX: N39.0 Urinary tract infection, site not specified (principal); Z79.899 Other long term (current) drug therapy; F17.210 Nicotine dependence, cigarettes, uncomplicated
CPT/HCPCS: 51702; 99284; 99285

== ENCOUNTER 2024-08-31 06:20 | Emergency (ER) | payer MEDICARE, SELFPAY ==
[2024-08-31] VITALS (9 sets, daily range): BP systolic 87–110; BP diastolic 46–70; PULSE 68–83; RESP 12–20; TEMP 36.5–36.9; O2SAT 95–99; BMI 29.2
--- NOTE | 2024-08-31 06:24 | ECG_ITS ---
Test Reason : WEAKNESS Blood Pressure : / mmHG Vent. Rate : 065 BPM Atrial Rate : 065 BPM P-R Int : 146 ms QRS Dur : 108 ms QT Int : 456 ms P-R-T Axes : 020 -18 019 degrees QTc Int : 474 ms Normal sinus rhythm Cannot rule out Anterior infarct (cited on or before 24-AUG-2024) Abnormal ECG When compared with ECG of 24-AUG-2024 07:35, Questionable change in initial forces of Septal leads Referred By: Darlene Tian Electronically Signed By:Julio Muro
[2024-08-31 06:53] LABS: Basophils Absolute Auto 0.1 X10*3/uL (0.0-0.2); Basophils Percent Auto 0.5 % (0-2); Eosinophils Absolute Auto 0.1 X10*3/uL (0.0-0.4); Eosinophils Percent Auto 1.1 % (0-4); Hematocrit 23.7 % (42.0-52.0); Hemoglobin 7.8 g/dl (14.0-18.0); Lymphocytes Absolute Auto 1.1 X10*3/uL (1.2-4.9); Lymphocytes Percent Auto 10.9 % (20-40); MANUAL DIFF FLAG NO; Mean Corpuscular HGB Conc 32.9 g/dl (31.0-36.0); Mean Corpuscular Hemoglobin 32.4 pg (27.0-33.0); Mean Corpuscular Volume 98.3 fL (80.0-98.0); Mean Platelet Volume 9.6 fL (9.4-12.4); Monocytes Absolute Auto 0.4 X10*3/uL (0.1-1.2); Monocytes Percent Auto 3.8 % (2-11); Neutrophils Absolute Auto 8.5 x10*3/uL (2.0-8.3); Neutrophils Percent Auto 82.7 % (45-73); Platelet Count 120 X10*3/uL (160-400); Red Blood Count 2.41 X10*6/uL (4.60-5.80); Red Cell Distribution Width 17.4 % (11.0-16.0); White Blood Count 10.2 X10*3/uL (4.8-10.8)
[2024-08-31 06:54] LABS: OBS Int Ctl Valid YES; OBS1 POSITIVE (NEGATIVE)
[2024-08-31 06:59] LABS: INTERNATIONAL NORM RATIO 1.5 (0.9-1.1); Prothrombin Time 17.3 SEC (10.9-12.4)
[2024-08-31] MEDS: Pantoprazole Sodium 40 MG/10 ML VIAL 80 MG IVPUSH (07:02)
[2024-08-31] MEDS: ondansetron HCL 4 MG/2 ML VIAL IVPUSH (07:02)
--- NOTE | 2024-08-31 07:04 | ED_ITS ---
HPI - General Adult General Chief complaint: General Medical Stated complaint: blood in vomit and cath, ankles swollen Time Seen by Provider: 08/31/24 06:24 Source: patient and EMS Mode of arrival: EMS Limitations: no limitations History of Present Illness ED Provider: Dr. Darlene Tian HPI narrative: Patient's to the emergency room complaining of chest pressure, feeling unwell. Patient states that he feels like he is having a heart attack but denies chest pain/pressure or shortness of breath. Patient states that he has does not feel right. Patient reports that he has been having nausea vomiting and diarrhea for 2 days, occasionally sees dark stool and blood in the vomit. Patient denies drinking alcohol. Patient states that he has learned his lesson. Patient states that he was discharged from the hospital 5 days ago, since then, patient states that he feels that he has been swelling up more than usual especially in his lower extremities. Patient complaining that his feet are very puffy. Related Data Home Medications ?Medication ?Instructions ?Recorded ?Confirmed melatonin 10 mg tablet 10 mg PO BEDTIME Insomnia 11/13/23 08/24/24 mirtazapine 15 mg tablet 15 mg PO BEDTIME 11/13/23 08/24/24 tamsulosin 0.4 mg capsule 0.4 mg PO BEDTIME 07/23/24 08/24/24 furosemide 40 mg tablet 40 mg PO DAILY 08/24/24 08/24/24 omeprazole 40 mg capsule,delayed 40 mg PO DAILY@0630 08/24/24 08/24/24 release Previous Rx's ?Medication ?Instructions ?Recorded lactulose 20 gram/30 mL oral 20 g (30 mL) PO DAILY 90 days 08/25/24 solution #2,700 mL linezolid 600 mg tablet 600 mg PO Q12H #12 tabs 08/25/24 potassium chloride 20 mEq 20 meq PO DAILY #90 tabs 08/25/24 tablet,extended release(part/cryst) sodium bicarbonate 650 mg tablet 650 mg PO TID #270 tabs 08/25/24 sucralfate 1 gram tablet 1 g PO QIDACHS #360 tabs 08/25/24 Allergies Allergy/AdvReac Type Severity Reaction Status Date / Time Fish Containing Products Allergy Severe THROAT Verified 08/31/24 06:34 SWELLING peanut [Peanut] Allergy Severe THROAT Verified 08/31/24 06:34 SWELLING PMFSH Past Medical History Medical History Urethral obstruction Acute urinary retention Gross hematuria Alcoholic hepatitis Thrombocytopenia Nausea & vomiting Hyponatremia Acute hypokalemia Alcohol dependence Ascites Congestive heart failure Anemia ETOH abuse Alcoholic cirrhosis PTSD (post-traumatic stress disorder) Hyponatremia Acute hyponatremia NATHANIEL (acute kidney injury) Acute metabolic encephalopathy [place] Alcoholic cirrhosis of liver with ascites Prostate cancer Depression Hyperlipidemia Hypertension Anxiety Social History Social History Household Members: Significant Other Household Members Other:: Ethalee Housing: [facility] Do you presently have visiting nurse or other home services: Yes ([facility]) Unable to assess alcohol history related to: Refusing to respond Alcohol intake: former Comment: bilateral wrist restraints for airway safety Patient Tobacco Use Status: Current everyday Tobacco user Tobacco use type: Cigarette Cigarette Packs Per Day: 3 Cigarettes Per Day: 3 Years Smoked: 25 e-Cigarette/Vaping Use: Never Used Second Hand Smoke Exposure: No Substance Use Type: Marijuana Advance Directives Date on File: 04/03/24 service: No Current occupational status: disabled Physical Exam ED Vital Signs: Vital Signs - 24 hr 08/31/24 06:26 08/31/24 07:17 Temperature 98.4 F 98.2 F Pulse Rate 69 69 Respiratory Rate 16 15 Blood Pressure 104/48 L 102/54 L Pulse Oximetry 99 99 Oxygen Delivery Method Room Air Room Air BMI result Body Mass Index 29.2 Const Other: Appearance: Alert. Oriented X3. No acute distress. Eyes: Pupils equal, round and reactive to light. ENT: Pharynx normal. Neck: Normal inspection. Neck supple. No lymph nodes noted. No crepitus CVS: Normal heart rate and rhythm. Pulses normal. Normal S1 and S2 Respiratory: No respiratory distress. Breath sounds normal. No Wheezing. No rales Abdomen: Soft, distended, caput medusae present in the abdomen. No pain to palpation whatsoever Skin: Skin warm and dry. Patient is jaundiced Extremities: Patient has anasarca, +3 pitting edema throughout body. Patient's feet are significantly swollen , +4 pitting edema bilaterally. Neuro: Oriented X 3. No motor deficit. No sensory deficit. Moving all extremities. No slurred speech. CN 2 through 12 grossly intact Psych: calm, cooperative, normal affect Course Course Course Narrative: -patient known to have frequent GI bleeds, both upper GI and lower GI bleed. -patient states that for the last 2 days, he has had dark stools, intermittent upper GI bleed. No active bleeding today. -patient is being giving albumin IV, octreotide, ceftriaxone, Protonix. -after the above-mentioned treatment, patient continued being nauseous, patient given Compazine Medications Administered Generic Name Dose Route Start Last Admin Trade Name Freq PRN Reason Stop Dose Admin Octreotide Acetate 500 mcg/ 501 mls @ 25.05 mls/hr 08/31/24 07:00 08/31/24 07:39 Sodium Chloride IVCONT 25 mcg/hr .Q20H KULWANT 25.05 mls/hr Administration 25 MCG/HR Discontinued Medications Generic Name Dose Route Start Last Admin Trade Name Freq PRN Reason Stop Dose Admin Octreotide Acetate 50 mcg 08/31/24 06:32 08/31/24 07:22 Octreotide Acetate 100 Mcg/Ml Ampul IVPUSH 08/31/24 06:33 50 mcg ONCE ONE Administration Ondansetron HCl 4 mg 08/31/24 06:32 08/31/24 07:02 Ondansetron Hcl 4 Mg/2 Ml Vial IVPUSH 08/31/24 06:33 4 mg ONCE ONE Administration Pantoprazole Sodium 80 mg 08/31/24 06:32 08/31/24 07:02 Pantoprazole Sodium 40 Mg/10 Ml Vial IVPUSH 08/31/24 06:33 80 mg ONCE ONE Administration Medical Decision Making Medical Decision Making MDM Narrative: My interpretation of labs. Patient's hemoglobin is 7.8, a bit lower than his baseline. Patient's occult blood was positive. Patient be transfused -patient's chemistry does not show any significant abnormality. LFTs are chronically elevated, troponin negative -patient has no abdominal pain, patient has chronic abdominal distention. SBP is not suspected. Patient has no fever chills, no elevated white blood cell count, normal BP, no abdominal pain -I discussed with the patient the risks versus benefits of being transfused, patient is agreeable to proceed with the transfusion. -here in the ED, patient has not had any bright red blood per rectum or in the vomit. -I discussed the patient with Dr. Abuhashmeh, patient being admitted Differential Diagnosis Differential Diagnoses: The differential diagnosis associated with the presentation includes (Upper GI bleed, lower GI bleed, cirrhosis) Admission/Observation Consideration of admission/observation: Escalation of care including admission/observation considered Consult Healthcare Provider Management of the patient was discussed with: Hospitalist Lab Data MDM Lab Attestation statement: I reviewed the patient's lab results. 08/31/24 06:46 08/31/24 06:46 Labs: Lab Results 08/31/24 08/31/24 08/31/24 Range/Units 06:45 06:46 06:48 WBC 10.2 (4.8-10.8) X10*3/uL RBC 2.41 L (4.60-5.80) X10*6/uL Hgb 7.8 L (14.0-18.0) g/dl Hct 23.7 L (42.0-52.0) % MCV 98.3 H (80.0-98.0) fL MCH 32.4 (27.0-33.0) pg MCHC 32.9 (31.0-36.0) g/dl RDW 17.4 H (11.0-16.0) % Plt Count 120 L (160-400) X10*3/uL MPV 9.6 (9.4-12.4) fL Immature Gran % (Auto) 1.0 H (0.0-0.4) % Neut % (Auto) 82.7 H (45-73) % Lymph % (Auto) 10.9 L (20-40) % [place] % (Auto) 3.8 (2-11) % Eos % (Auto) 1.1 (0-4) % Baso % (Auto) 0.5 (0-2) % Lymph # (Auto) 1.1 L (1.2-4.9) X10*3/uL [place] # (Auto) 0.4 (0.1-1.2) X10*3/uL Eos # (Auto) 0.1 (0.0-0.4) X10*3/uL Baso # (Auto) 0.1 (0.0-0.2) X10*3/uL Abs Immat Gran (auto) 0.10 H (0.00-0.03) X10*3/uL Absolute Neuts (auto) 8.5 H (2.0-8.3) x10*3/uL Absolute Nucleated RBC 0.000 (0.0-0.012) X10*3/uL Nucleated RBC % (auto) 0.0 (0.0-0.2) /100WBC PT 17.3 H (10.9-12.4) SEC INR 1.5 H (0.9-1.1) Sodium 135 (135-145) mmol/L Potassium 3.7 D (3.3-5.1) mmol/L Chloride 104 (96-108) mmol/L Carbon Dioxide 24 (22-29) mmol/L Anion Gap 11 L (12-20) BUN 15 (9-16) mg/dL Creatinine 0.79 (0.5-1.4) mg/dL Estim Creat Clear Calc 111.5 Estimated GFR > 60 Random Glucose 118 H (60-115) mg/dL Calcium 7.7 L (8.4-10.2) mg/dL Magnesium 1.9 (1.6-2.6) mg/dL Total Bilirubin 3.9 H (0.0-1.0) mg/dL Direct Bilirubin 1.9 H (0.0-0.5) mg/dL AST 44 H (5-37) U/L ALT 9 (0-40) U/L Alkaline Phosphatase 169 H (39-117) U/L Troponin I High Sens < 2.7 (<3.5-35.0) ng/L B-Natriuretic Peptide 184 H (<100) pg/mL Total Protein 6.6 (6.5-8.0) g/dL Albumin 2.3 L (3.5-5.0) g/dL Lipase 15 (8-78) U/L Stool Occult Blood POSITIVE (NEGATIVE) Ethyl Alcohol < 10 mg/dL Independent Interpretation I performed an independent interpretation of an: EKG (My interpretation of EKG: Normal sinus rhythm, heart rate 65, no ST segment depression or elevation, no T-wave inversion, QTC 474) Critical Care Time Critical Care Time Critical Care Time: Yes Total Critical Care Time: 60 Attestation: I have personally provided critical care time. Time includes review of lab data, radiology results, discussion with consultants, and monitoring for potential decompensation. Intervention performed as documented. Discharge Plan Discharge Clinical Impression: Anemia, Anasarca, Acute GI bleeding Patient Disposition: Admitted As Inpatient Prescriptions: No Action mirtazapine 15 mg tablet 15 mg PO BEDTIME melatonin 10 mg tablet 10 mg PO BEDTIME furosemide 40 mg tablet 40 mg PO DAILY Protocol: Hold for SBP< HOLD for SBP < : 90 omeprazole 40 mg capsule,delayed release(DR/EC) 40 mg PO DAILY@0630 linezolid 600 mg Tablet 600 mg PO Q12H Qty: 12 0RF potassium chloride 20 mEq Tablet,Er Particles/Crystals 20 meq PO DAILY Qty: 90 0RF sodium bicarbonate 650 mg Tablet 650 mg PO TID Qty: 270 0RF lactulose 20 gram/30 mL Solution 20 g PO DAILY 90 Days Qty: 2700 0RF sucralfate 1 gram Tablet 1 g PO QIDACHS Qty: 360 0RF tamsulosin 0.4 mg capsule 0.4 mg PO BEDTIME Print Language: Monegasque
[2024-08-31 07:15] LABS: B Type Natriuretic Peptide 184 pg/mL (<100)
[2024-08-31 07:18] LABS: Alanine Aminotransferase 9 U/L (0-40); Albumin Level 2.3 g/dL (3.5-5.0); Alkaline Phosphatase 169 U/L (39-117); Anion Gap 11 (12-20); Aspartate Amino Transferase 44 U/L (5-37); Bilirubin Direct 1.9 mg/dL (0.0-0.5); Bilirubin Total 3.9 mg/dL (0.0-1.0); Blood Urea Nitrogen 15 mg/dL (9-16); Calcium 7.7 mg/dL (8.4-10.2); Carbon Dioxide 24 mmol/L (22-29); Chloride 104 mmol/L (96-108); Creatinine Clr Calc Pharmacy 111.5; Estimated Glomerular Filt Rate > 60; Ethanol < 10 mg/dL; Glucose Random 118 mg/dL (60-115); Lipase 15 U/L (8-78); Magnesium 1.9 mg/dL (1.6-2.6); Potassium 3.7 mmol/L (3.3-5.1); Sodium 135 mmol/L (135-145); Total Protein 6.6 g/dL (6.5-8.0)
[2024-08-31] MEDS: Octreotide Acetate 100 MCG/ML AMPUL 50 MCG IVPUSH (07:22)
[2024-08-31 07:29] LABS: Troponin-I High Sensitivity < 2.7 ng/L (<3.5-35.0)
[2024-08-31] MEDS: Octreotide Acetate 500 MCG in 0.9 % Sodium Chloride 500 ML 25.05 MCG IVCONT (07:39)
[2024-08-31] MEDS: Prochlorperazine Edisylate 10 MG/2 ML VIAL IVPUSH (07:48)
[2024-08-31 07:50] LABS: COVID-19 Test Negative (Negative); IDNOW Serial# 08D9AD1C
[2024-08-31] MEDS: cefTRIAXone sodium 1 GM VIAL IVPUSH (07:50)
--- NOTE | 2024-08-31 08:04 | PC.NURSE ---
Care of Pt assumed at change of shift. Pt is A&Ox3 BP stable but on the low end; HR WNL Skin appears as jaundice and dehydrated. Foly cath in place, urin is tea colored. PT has one incident of vomiting after Zofran administration, additional orders placed for anti-nausea and Pt medicated per DEC. Medications started as ordered with the exception of Albumin, no IV pumps available on ED unit. salesforce developer sent to other units of hospital to acquire pumps and will hang as soon as pumps arrive. 20g placed to R wrist; 20g to L forearm placed by overnight RN.
[2024-08-31] MEDS: Albumin Human 25 % 100 ML IV ×2 (08:11→09:19)
--- NOTE | 2024-08-31 08:54 | PC.NURSE ---
Blood transfusion started. Pt tolerates well; no complications. VSS Pt resting quietly with eye closed.
--- NOTE | 2024-08-31 09:53 | P.HPHOSP_ITS ---
History of Present Illness Date of Service: 08/31/24 Attending physician on admission: Matt Rosenberg Chief Complaint: N/V/D, abd swelling Pt is a 59-year-old male with a PMH significant for?prostate cancer with urethral obstruction, decompensated alcoholic liver cirrhosis with ascites, esophageal varices with recent UGIB, portal hypertension gastropathy, hx of hypokalemia, chronic indwelling Barber catheter, among others who presents to the ED with? This is the pt's third admission to the hospital this month, discharged on 08/17 for urinary retention/obstruction and gross hematuria complicated by acute UGIB secondary to variceal bleeding, and then again on 08/25 for acute hypokalemia and drug resistant UTI. In the ED pt was Labs were significant for H&H of 7.8/23.7 (down from 9 0.0/27.4 on 08/25), stool positive for occult blood, and albumin 2.3. Otherwise labs grossly unremarkable and around baseline for patient. Chronic thrombocytopenia. Renal function baseline. Chronic transaminitis around baseline with T bili 3.9, AST 44, alk-phos 169. Troponin negative. BNP mildly elevated at 184. EKG demonstrated normal sinus rhythm without evidence of significant ST elevations or depressions. Pt was treated with albumin, ondansetron, Protonix, ceftriaxone, prochlorperazine, and started on octreotide drip. Pt will be admitted to the hospital for treatment further evaluation [facility] Medical History Urethral obstruction Acute urinary retention Gross hematuria Alcoholic hepatitis Thrombocytopenia Nausea & vomiting Hyponatremia Acute hypokalemia Alcohol dependence Ascites Congestive heart failure Anemia ETOH abuse Alcoholic cirrhosis PTSD (post-traumatic stress disorder) Hyponatremia Acute hyponatremia NATHANIEL (acute kidney injury) Acute metabolic encephalopathy [place] Alcoholic cirrhosis of liver with ascites Prostate cancer Depression Hyperlipidemia Hypertension Anxiety Social History Household Members: Significant Other Household Members Other:: Ethalee Housing: Condominium Do you presently have visiting nurse or other home services: Yes ([facility]) Unable to assess alcohol history related to: Refusing to respond Alcohol intake: former Comment: bilateral wrist restraints for airway safety Patient Tobacco Use Status: Current everyday Tobacco user Tobacco use type: Cigarette Cigarette Packs Per Day: 3 Cigarettes Per Day: 3 Years Smoked: 25 Smoked in Last 30 Days: Yes e-Cigarette/Vaping Use: Never Used Second Hand Smoke Exposure: No Use of substances other than those prescribed or required for medical reasons: No Substance Use Type: Marijuana Advance Directives: Yes Advance Directives on File: Yes Advance Directives Date on File: 04/03/24 service: No Current occupational status: disabled Meds Allergies Allergy/AdvReac Type Severity Reaction Status Date / Time Fish Containing Products Allergy Severe THROAT Verified 08/31/24 06:34 SWELLING peanut [Peanut] Allergy Severe THROAT Verified 08/31/24 06:34 SWELLING Active Medications: Current Medications Octreotide Acetate 500 mcg/ (Sodium Chloride) 501 mls @ 25.05 mls/hr IVCONT .Q20H KULWANT Last Admin: 08/31/24 07:39 Dose: 25 mcg/hr, 25.05 mls/hr Home Medications ?Medication ?Instructions ?Recorded ?Confirmed ?Last Taken ?Type melatonin 10 mg tablet 10 mg PO BEDTIME Insomnia 11/13/23 08/24/24 08/23/24 History mirtazapine 15 mg tablet 15 mg PO BEDTIME 11/13/23 08/24/24 08/23/24 History tamsulosin 0.4 mg capsule 0.4 mg PO BEDTIME 07/23/24 08/24/24 08/23/24 History furosemide 40 mg tablet 40 mg PO DAILY 08/24/24 08/24/24 08/23/24 History omeprazole 40 mg capsule,delayed 40 mg PO DAILY@0630 08/24/24 08/24/24 08/23/24 History release Physical Exam 2 Vital Signs and Narrative: Vital Signs: Last Vital Signs Temp 98.2 F 08/31/24 08:52 Pulse 69 08/31/24 08:52 Resp 12 08/31/24 08:52 BP 106/46 L 08/31/24 08:52 Pulse Ox 98 08/31/24 08:50 O2 Del Method Room Air 08/31/24 08:50 BMI result Body Mass Index 29.2 Results Labs 08/31/24 06:46 08/31/24 06:46 Labs: Laboratory Results - last 24 hr 08/31/24 08/31/24 08/31/24 06:45 06:46 06:48 MCV 98.3 H MCH 32.4 MCHC 32.9 RDW 17.4 H Plt Count 120 L MPV 9.6 Immature Gran % (Auto) 1.0 H Neut % (Auto) 82.7 H Lymph % (Auto) 10.9 L [place] % (Auto) 3.8 Eos % (Auto) 1.1 Baso % (Auto) 0.5 Lymph # (Auto) 1.1 L [place] # (Auto) 0.4 Eos # (Auto) 0.1 Baso # (Auto) 0.1 Abs Immat Gran (auto) 0.10 H Absolute Neuts (auto) 8.5 H Absolute Nucleated RBC 0.000 Nucleated RBC % (auto) 0.0 PT 17.3 H INR 1.5 H Anion Gap 11 L Estim Creat Clear Calc 111.5 Estimated GFR > 60 Random Glucose 118 H Calcium 7.7 L Magnesium 1.9 Total Bilirubin 3.9 H Direct Bilirubin 1.9 H AST 44 H ALT 9 Alkaline Phosphatase 169 H Troponin I High Sens < 2.7 B-Natriuretic Peptide 184 H Total Protein 6.6 Albumin 2.3 L Lipase 15 Stool Occult Blood POSITIVE Ethyl Alcohol < 10 COVID-19 ([facility]) Negative COVID-19 Clin Com See Note Blood Type Antibody Screen Crossmatch 08/31/24 06:55 MCV MCH MCHC RDW Plt Count MPV Immature Gran % (Auto) Neut % (Auto) Lymph % (Auto) [place] % (Auto) Eos % (Auto) Baso % (Auto) Lymph # (Auto) [place] # (Auto) Eos # (Auto) Baso # (Auto) Abs Immat Gran (auto) Absolute Neuts (auto) Absolute Nucleated RBC Nucleated RBC % (auto) PT INR Anion Gap Estim Creat Clear Calc Estimated GFR Random Glucose Calcium Magnesium Total Bilirubin Direct Bilirubin AST ALT Alkaline Phosphatase Troponin I High Sens B-Natriuretic Peptide Total Protein Albumin Lipase Stool Occult Blood Ethyl Alcohol COVID-19 ([facility]) COVID-19 Clin Com Blood Type A Positive Antibody Screen NEGATIVE Crossmatch See Detail
--- NOTE | 2024-08-31 10:23 | PHA.MEDREC ---
Pharmacy Consult ? Medication Reconciliation Pharmacy has completed the medication reconciliation. Patient discharged 5 days ago. Spoke to pt and confirms still on linezolid, says roughly 3 days left on antibiotic. Utilized discharge packet to confirm meds as well. Pt sates they are still taking all meds from recent discharge.
--- NOTE | 2024-08-31 12:38 | PC.NURSE ---
[facility] [phone] for RN report for transfer. Pt is assigned to room 33A Photo Machine Operator reports RN is in the middle of a rapid response and cannot take report at this time. Call back number provider, [facility] RN to call back for RN report.
--- NOTE | 2024-08-31 13:25 | PC.NURSE ---
Call received from PRITI Lamb at [facility]. RN to RN report completed for Pt transfer. All questions answered to satisfaction. Pt will be transported to [facility] via [facility]. Report given to EMS and all questions answered to satisfaction. Care of Pt relinquished to [facility] Pt has left the ED at this time.
== END 2024-08-31 13:29 | disposition short-term general hospital (02) ==
PROVIDERS: Emergency Provider Emergency Medicine; PCP Internal Medicine
DX: D64.9 Anemia, unspecified (principal); R60.1 Generalized edema; K92.2 Gastrointestinal hemorrhage, unspecified; R11.2 Nausea with vomiting, unspecified; Z11.52 Encounter for screening for COVID-19; I10 Essential (primary) hypertension; E78.5 Hyperlipidemia, unspecified; K70.31 Alcoholic cirrhosis of liver with ascites; J96.01 Acute respiratory failure with hypoxia; F10.10 Alcohol abuse, uncomplicated; Y90.0 Blood alcohol level of less than 20 mg/100 ml; Z85.46 Personal history of malignant neoplasm of prostate; Z79.899 Other long term (current) drug therapy
CPT/HCPCS: 36430; 80048; 80076; 80307; 82272; 83690; 83735; 83880; 84484; 85025; 85610; 86850; 86900; 86901; 86923; 87635; 93005; 96365; 96366; 96375; 99285; J0696; J0737; J2354; J2405; J2470; P9016; P9047

== ENCOUNTER → 2024-08-31 06:24 | Outpatient (BNV) | payer MEDICARE, SELFPAY | PROVIDERS: Emergency Provider Emergency Medicine; PCP Internal Medicine; Visit Provider Internal Medicine Cardiovascular Disease | DX: R53.1 Weakness (principal); R94.31 Abnormal electrocardiogram [ECG] [EKG] | CPT/HCPCS: 93010 ==

== ENCOUNTER 2024-09-06 23:59 | Emergency (ER) | payer MEDICARE, SELFPAY ==
[2024-09-07 00:06] VITALS: BP 101/50; BP 110/50; PULSE 75; PULSE 77; RESP 17; TEMP 36.6; O2SAT 100; O2SAT 97; BMI 30.2
--- NOTE | 2024-09-07 00:27 | PC.NURSE ---
pt biba from home, a&ox3, respirations even and unlabored, reports blood in rojas starting this morning, [facility] to [facility]. pt noted to have bright red blood, attempted to manually irrigate with no relief. provider aware and at bedside.
[2024-09-07 00:32] LABS: MANUAL DIFF FLAG NO
[2024-09-07 00:34] LABS: Basophils Absolute Auto 0.1 X10*3/uL (0.0-0.2); Basophils Percent Auto 0.6 % (0-2); Eosinophils Absolute Auto 0.3 X10*3/uL (0.0-0.4); Eosinophils Percent Auto 2.6 % (0-4); Hemoglobin 7.4 g/dl (14.0-18.0); Imm Gran Pct Auto 1.8 % (0.0-0.4); Lymphocytes Absolute Auto 1.9 X10*3/uL (1.2-4.9); Lymphocytes Percent Auto 17.2 % (20-40); Mean Corpuscular HGB Conc 33.6 g/dl (31.0-36.0); Mean Corpuscular Hemoglobin 32.7 pg (27.0-33.0); Mean Corpuscular Volume 97.3 fL (80.0-98.0); Mean Platelet Volume 10.4 fL (9.4-12.4); Monocytes Absolute Auto 1.3 X10*3/uL (0.1-1.2); Monocytes Percent Auto 11.5 % (2-11); Neutrophils Absolute Auto 7.2 x10*3/uL (2.0-8.3); Neutrophils Percent Auto 66.3 % (45-73); Red Blood Count 2.26 X10*6/uL (4.60-5.80); Red Cell Distribution Width 16.1 % (11.0-16.0); White Blood Count 10.9 X10*3/uL (4.8-10.8)
[2024-09-07 00:35] LABS: Platelet Count 73 X10*3/uL (160-400)
--- NOTE | 2024-09-07 00:36 | ED_ITS ---
HPI - Male Genitourinary General Chief complaint: Urogenital-Male Stated complaint: BLOOD IN CATHETER/ UTI Time Seen by Provider: 09/07/24 00:09 Source: patient History of Present Illness HPI Narrative: 59-year-old male who has a history of prostate cancer, Barber catheter, alcoholic liver cirrhosis with ascites, esophageal varices, upper GI bleeding, recent hospital admission, presents for evaluation of blood in his Barber catheter as well as pain. Patient states that he was discharged from [facility] yesterday, and reports having yellow urine at time of discharge. Patient states several hours later he began to have blood and blood clots. He reports having visiting nurses it out earlier today were concerned about the blood in his Barber and therefore prompted him to present to the emergency department. Denies any fevers chills nausea or vomiting. Currently he complains of pain at the penis at the site where the tubing enters the urethra. He denies any trauma. Related Data Home Medications ?Medication ?Instructions ?Recorded ?Confirmed melatonin 10 mg tablet 10 mg PO BEDTIME Insomnia 11/13/23 08/31/24 mirtazapine 15 mg tablet 15 mg PO BEDTIME 11/13/23 08/31/24 tamsulosin 0.4 mg capsule 0.4 mg PO BEDTIME 07/23/24 08/31/24 furosemide 40 mg tablet 40 mg PO DAILY 08/24/24 08/31/24 omeprazole 40 mg capsule,delayed 40 mg PO DAILY@0630 08/24/24 08/31/24 release Previous Rx's ?Medication ?Instructions ?Recorded lactulose 20 gram/30 mL oral 20 g (30 mL) PO DAILY 90 days 08/25/24 solution #2,700 mL linezolid 600 mg tablet 600 mg PO Q12H #12 tabs 08/25/24 potassium chloride 20 mEq 20 meq PO DAILY #90 tabs 08/25/24 tablet,extended release(part/cryst) sodium bicarbonate 650 mg tablet 650 mg PO TID #270 tabs 08/25/24 sucralfate 1 gram tablet 1 g PO QIDACHS #360 tabs 08/25/24 Allergies Allergy/AdvReac Type Severity Reaction Status Date / Time Fish Containing Products Allergy Severe THROAT Verified 09/07/24 00:08 SWELLING peanut [Peanut] Allergy Severe THROAT Verified 09/07/24 00:08 SWELLING Review of Systems 2 Constitutional: Constitutional: Denies chills and Denies fever(s) Cardiovascular: Cardiovascular: Denies chest pain, Denies dyspnea, Denies dyspnea on exertion and Denies orthopnea Respiratory: Respiratory: Denies cough, Denies dyspnea and Denies dyspnea on exertion Gastrointestinal: Gastrointestinal: Denies abdominal pain, Denies melena, Denies hematochezia, Denies diarrhea, Denies nausea and Denies vomiting Genitourinary: Genitourinary: Denies difficulty urinating, Denies dysuria and Denies urinary urgency Musculoskeletal: Musculoskeletal: Denies back pain, Denies muscle weakness and Denies numbness Neurologic: Denies focal weakness and Denies numbness Psychiatric: Psychiatric: Denies depression [facility] Past Medical History Medical History Urethral obstruction Acute urinary retention Gross hematuria Alcoholic hepatitis Thrombocytopenia Nausea & vomiting Hyponatremia Acute hypokalemia Alcohol dependence Ascites Congestive heart failure Anemia ETOH abuse Alcoholic cirrhosis PTSD (post-traumatic stress disorder) Hyponatremia Acute hyponatremia NATHANIEL (acute kidney injury) Acute metabolic encephalopathy Falls Alcoholic cirrhosis of liver with ascites Prostate cancer Depression Hyperlipidemia Hypertension Anxiety Social History Social History Household Members: Significant Other Household Members Other:: Ethalee Housing: Condominium Do you presently have visiting nurse or other home services: Yes ([facility]) Unable to assess alcohol history related to: Refusing to respond Alcohol intake: former Comment: bilateral wrist restraints for airway safety Patient Tobacco Use Status: Current everyday Tobacco user Tobacco use type: Cigarette Cigarette Packs Per Day: 3 Cigarettes Per Day: 3 Years Smoked: 25 e-Cigarette/Vaping Use: Never Used Second Hand Smoke Exposure: No Substance Use Type: Marijuana Advance Directives: Yes Advance Directives on File: Yes Advance Directives Date on File: 04/03/24 Do you have a plan to hurt others: No Plan service: No Current occupational status: disabled Physical Exam 2 Vital Signs: Vital Signs: Last Vital Signs Temp 97.8 F 09/07/24 00:06 Pulse 75 09/07/24 00:06 Resp 17 09/07/24 00:06 BP 101/50 L 09/07/24 00:06 Pulse Ox 100 09/07/24 00:06 O2 Del Method Room Air 09/07/24 00:06 BMI result Body Mass Index 30.2 Const: General: alert and awake Resp: Auscultation: clear to auscultation bilaterally Cardio: Rhythm: regular rhythm GI: Other: Abdomen is soft without tenderness. There is ascites present. No peritoneal sign Barber catheter is intact. There is no discharge from around the urethra. Barber bag has moderate amount of maroon blood with sediment and blood clots. Course Course Course Narrative: September 07, 1:00 a.m. bladder scan revealed only small amount of urine. Attempt by nursing to adjust the Barber by deflating the balloon as well as hand irrigation was unsuccessful. Patient experienced discomfort with fluid being instilled, minimal fluid being returned. Discussed with and seen by Dr. Jennings. We will attempt changing current Barber catheter which is a 16 Kinyarwanda. 1:20 a.m. patient's current Babrer catheter was removed. A new 16Fr, 3 way was placed by Dr. Villalta. Hand irrigation was clear. There was no blood or clots. Will continue to observe. 2:00 a.m. patient continues to drain clear urine. He reports significant improvement in his symptoms. Patient will be discharged home. Medications Administered Discontinued Medications Generic Name Dose Route Start Last Admin Trade Name Freq PRN Reason Stop Dose Admin Lidocaine HCl 10 ml 09/07/24 01:17 09/07/24 01:31 Lidocaine Hcl 2 % Urojet 10 Ml Jel.Pf.Janel TOPICAL 09/07/24 01:18 10 ml ONCE ONE Administration Medical Decision Making Medical Decision Making [facility] Narrative: 59-year-old male with a history of prostate cancer, chronic Barber catheter, multiple other medical problems, complaining of pain to the urethra due to Barber catheter. In addition patient with moderate blood in his Barber. Patient has had this repeatedly but now combined with the pain prompted him to present to the emergency department. We will attempt to reposition and were and irrigate catheter. Differential Diagnosis Differential Diagnoses: The differential diagnosis associated with the presentation includes Barber catheter dysfunction Malignancy Coagulopathy UTI pyelonephritis Admission/Observation Consideration of admission/observation: Escalation of care including admission/observation considered Lab Data [facility] Lab Attestation statement: I reviewed the patient's lab results. 09/07/24 00:27 09/07/24 00:27 Labs: Lab Results 09/07/24 Range/Units 00:27 WBC 10.9 H (4.8-10.8) X10*3/uL RBC 2.26 L (4.60-5.80) X10*6/uL Hgb 7.4 L (14.0-18.0) g/dl Hct 22.0 L (42.0-52.0) % MCV 97.3 (80.0-98.0) fL MCH 32.7 (27.0-33.0) pg MCHC 33.6 (31.0-36.0) g/dl RDW 16.1 H (11.0-16.0) % Plt Count 73 L D (160-400) X10*3/uL MPV 10.4 (9.4-12.4) fL Immature Gran % (Auto) 1.8 H (0.0-0.4) % Neut % (Auto) 66.3 (45-73) % Lymph % (Auto) 17.2 L (20-40) % [place] % (Auto) 11.5 H (2-11) % Eos % (Auto) 2.6 (0-4) % Baso % (Auto) 0.6 (0-2) % Lymph # (Auto) 1.9 (1.2-4.9) X10*3/uL [place] # (Auto) 1.3 H (0.1-1.2) X10*3/uL Eos # (Auto) 0.3 (0.0-0.4) X10*3/uL Baso # (Auto) 0.1 (0.0-0.2) X10*3/uL Abs Immat Gran (auto) 0.20 H (0.00-0.03) X10*3/uL Absolute Neuts (auto) 7.2 (2.0-8.3) x10*3/uL Absolute Nucleated RBC 0.000 (0.0-0.012) X10*3/uL Nucleated RBC % (auto) 0.0 (0.0-0.2) /100WBC Sodium 136 (135-145) mmol/L Potassium 3.5 (3.3-5.1) mmol/L Chloride 102 (96-108) mmol/L Carbon Dioxide 27 (22-29) mmol/L Anion Gap 11 L (12-20) BUN 7 L (9-16) mg/dL Creatinine 0.95 (0.5-1.4) mg/dL Estim Creat Clear Calc 91.2 Estimated GFR > 60 Random Glucose 117 H (60-115) mg/dL Calcium 7.9 L (8.4-10.2) mg/dL Total Bilirubin 3.2 H (0.0-1.0) mg/dL AST 30 (5-37) U/L ALT < 6 (0-40) U/L Alkaline Phosphatase 130 H (39-117) U/L Total Protein 6.1 L (6.5-8.0) g/dL Albumin 2.5 L (3.5-5.0) g/dL Discharge Plan Discharge Clinical Impression: Complication of Barber catheter Qualifiers: Encounter type: subsequent encounter Qualified Code(s): T83.9XXD - Unspecified complication of genitourinary prosthetic device, implant and graft, subsequent encounter Patient Disposition: Home, Self-Care Instructions: Barber Catheter Placement and Care (ED) Additional Instructions: Use caution when caring for your Barber catheter. Follow-up with your primary care provider. Call this week to schedule a follow- up appointment. Return to the emergency department if you have any worsening of symptoms, or any concerns. Get well soon! Prescriptions: No Action mirtazapine 15 mg tablet 15 mg PO BEDTIME melatonin 10 mg tablet 10 mg PO BEDTIME furosemide 40 mg tablet 40 mg PO DAILY Protocol: Hold for SBP< HOLD for SBP < : 90 omeprazole 40 mg capsule,delayed release(DR/EC) 40 mg PO DAILY@0630 linezolid 600 mg Tablet 600 mg PO Q12H Qty: 12 0RF Rx Instructions: END DATE: 09/02/24 potassium chloride 20 mEq Tablet,Er Particles/Crystals 20 meq PO DAILY Qty: 90 0RF sodium bicarbonate 650 mg Tablet 650 mg PO TID Qty: 270 0RF lactulose 20 gram/30 mL Solution 20 g PO DAILY 90 Days Qty: 2700 0RF sucralfate 1 gram Tablet 1 g PO QIDACHS Qty: 360 0RF tamsulosin 0.4 mg capsule 0.4 mg PO BEDTIME Print Language: Tajik
[2024-09-07 00:55] LABS: Alanine Aminotransferase < 6 U/L (0-40); Albumin Level 2.5 g/dL (3.5-5.0); Alkaline Phosphatase 130 U/L (39-117); Anion Gap 11 (12-20); Aspartate Amino Transferase 30 U/L (5-37); Bilirubin Total 3.2 mg/dL (0.0-1.0); Blood Urea Nitrogen 7 mg/dL (9-16); Calcium 7.9 mg/dL (8.4-10.2); Carbon Dioxide 27 mmol/L (22-29); Chloride 102 mmol/L (96-108); Creatinine Clr Calc Pharmacy 91.2; Estimated Glomerular Filt Rate > 60; Glucose Random 117 mg/dL (60-115); Potassium 3.5 mmol/L (3.3-5.1); Sodium 136 mmol/L (135-145); Total Protein 6.1 g/dL (6.5-8.0)
--- NOTE | 2024-09-07 01:29 | PC.NURSE ---
pt previous rojas removed at this time, 3 way rojas replaced, irrigated manually. pt rojas noted to be draining clear to cloudy urine at this time, no blood or clots noted.
[2024-09-07] MEDS: Lidocaine HCl 2 % Urojet 10 ML JEL.PF.APP TOPICAL (01:31)
--- NOTE | 2024-09-07 02:27 | PC.NURSE ---
ems booked for pt transfer home.
[2024-09-07 04:11] VITALS: BP 122/54; PULSE 71; RESP 17; TEMP 36.9; O2SAT 99
== END 2024-09-07 04:17 | disposition home or self-care (01) ==
PROVIDERS: Emergency Provider Emergency Medicine; PCP Internal Medicine
DX: T83.84XA Pain due to genitourinary prosthetic devices, implants and grafts, initial encounter (principal); G89.18 Other acute postprocedural pain; Y73.8 Miscellaneous gastroenterology and urology devices associated with adverse incidents, not elsewhere classified; Y92.009 Unspecified place in unspecified non-institutional (private) residence as the place of occurrence of the external cause; R31.0 Gross hematuria; R33.9 Retention of urine, unspecified; I11.0 Hypertensive heart disease with heart failure; I50.9 Heart failure, unspecified; E78.5 Hyperlipidemia, unspecified; K70.31 Alcoholic cirrhosis of liver with ascites; F17.210 Nicotine dependence, cigarettes, uncomplicated; Z85.46 Personal history of malignant neoplasm of prostate; Z92.3 Personal history of irradiation
CPT/HCPCS: 36415; 51702; 51798; 80053; 85025; 99284; 99285

== ENCOUNTER 2024-09-08 14:58 | Emergency (ER) | payer MEDICARE, SELFPAY ==
[2024-09-08 15:07] VITALS: BP 111/56; PULSE 75; RESP 14; TEMP 36.4; O2SAT 100; BMI 27.9
--- NOTE | 2024-09-08 15:09 | MHC.EDTECH ---
at this time the pt has been changed over into hospital gown, and vitals taken. Call light given for safety and blanket given. No needs made aware at this time, pt very pleasant.
--- NOTE | 2024-09-08 15:10 | ECG_ITS ---
Test Reason : Difficulty breathing Blood Pressure : / mmHG Vent. Rate : 068 BPM Atrial Rate : 068 BPM P-R Int : 170 ms QRS Dur : 108 ms QT Int : 450 ms P-R-T Axes : 026 -21 022 degrees QTc Int : 478 ms Normal sinus rhythm Normal ECG When compared with ECG of 31-AUG-2024 06:54, No significant change was found Referred By: Generic ED Physician Electronically Signed By:COREEN BRADEN
[2024-09-08 15:33] LABS: MANUAL DIFF FLAG NO
[2024-09-08 15:35] LABS: Basophils Percent Auto 0.4 % (0-2); Eosinophils Absolute Auto 0.2 X10*3/uL (0.0-0.4); Eosinophils Percent Auto 2.6 % (0-4); Hematocrit 23.9 % (42.0-52.0); Hemoglobin 7.8 g/dl (14.0-18.0); Imm Gran Abs Auto 0.22 X10*3/uL (0.00-0.03); Imm Gran Pct Auto 2.4 % (0.0-0.4); Lymphocytes Absolute Auto 1.7 X10*3/uL (1.2-4.9); Lymphocytes Percent Auto 18.2 % (20-40); Mean Corpuscular HGB Conc 32.6 g/dl (31.0-36.0); Mean Corpuscular Hemoglobin 31.6 pg (27.0-33.0); Mean Corpuscular Volume 96.8 fL (80.0-98.0); Mean Platelet Volume 10.2 fL (9.4-12.4); Monocytes Absolute Auto 0.9 X10*3/uL (0.1-1.2); Monocytes Percent Auto 9.8 % (2-11); Neutrophils Absolute Auto 6.1 x10*3/uL (2.0-8.3); Neutrophils Percent Auto 66.6 % (45-73); Platelet Count 101 X10*3/uL (160-400); Red Blood Count 2.47 X10*6/uL (4.60-5.80); Red Cell Distribution Width 16.3 % (11.0-16.0); White Blood Count 9.2 X10*3/uL (4.8-10.8)
--- NOTE | 2024-09-08 15:36 | PC.NURSE ---
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 patient states he does not know the cause of the sob but states he has been feeling increasingly anxious due to his credit card being compromised. patient states he has medical appts tomorrow and if its not one thing its another . patient is very pleasant, and states he just wants to make sure everything is okay. patient is alert and oriented x3, IV establish by ems. patient has firm, distended abdomen related to his liver cirrhosis. patient bilat lower legs edematous which is normal for patient. patient changed into hospital attire, has chronic rojas cath. patient is bedbound at baseline.
[2024-09-08 15:51] LABS: Alanine Aminotransferase 11 U/L (0-40); Albumin Level 2.7 g/dL (3.5-5.0); Alkaline Phosphatase 152 U/L (39-117); Anion Gap 11 (12-20); Aspartate Amino Transferase 32 U/L (5-37); Bilirubin Direct 1.9 mg/dL (0.0-0.5); Bilirubin Total 3.1 mg/dL (0.0-1.0); Blood Urea Nitrogen 7 mg/dL (9-16); Calcium 8.1 mg/dL (8.4-10.2); Carbon Dioxide 24 mmol/L (22-29); Chloride 103 mmol/L (96-108); Creatinine Clr Calc Pharmacy 87.1; Estimated Glomerular Filt Rate > 60; Ethanol < 10 mg/dL; Glucose Random 105 mg/dL (60-115); Potassium 3.2 mmol/L (3.3-5.1); Sodium 135 mmol/L (135-145); Total Protein 6.7 g/dL (6.5-8.0)
[2024-09-08 16:00] LABS: Troponin-I High Sensitivity < 2.7 ng/L (<3.5-35.0)
--- NOTE | 2024-09-08 16:55 | ED_ITS ---
HPI - SOB/Dyspnea General Chief Complaint: Dyspnea Stated Complaint: diff breathing, pt believes it may be anxiety Time Seen by Provider: 09/08/24 16:27 Source: patient Mode of arrival: ambulatory Limitations: no limitations History of Present Illness ED Provider: luis HPI Narrative: 59-year-old male with a PMH significant for?prostate cancer with urethral obstruction, decompensated alcoholic liver cirrhosis with ascites, esophageal varices with recent UGIB, portal hypertension gastropathy, hx of hypokalemia, chronic indwelling Barber catheter, among others been here multiple times in last 2 months just seen yesterday for block Barber catheter comes here as just prior to arrival patient was feeling short of breath/anxiety attack on arrival patient is saturating 100% at room air Related Data Home Medications ?Medication ?Instructions ?Recorded ?Confirmed melatonin 10 mg tablet 10 mg PO BEDTIME Insomnia 11/13/23 08/31/24 mirtazapine 15 mg tablet 15 mg PO BEDTIME 11/13/23 08/31/24 tamsulosin 0.4 mg capsule 0.4 mg PO BEDTIME 07/23/24 08/31/24 furosemide 40 mg tablet 40 mg PO DAILY 08/24/24 08/31/24 omeprazole 40 mg capsule,delayed 40 mg PO DAILY@0630 08/24/24 08/31/24 release Previous Rx's ?Medication ?Instructions ?Recorded lactulose 20 gram/30 mL oral 20 g (30 mL) PO DAILY 90 days 08/25/24 solution #2,700 mL linezolid 600 mg tablet 600 mg PO Q12H #12 tabs 08/25/24 potassium chloride 20 mEq 20 meq PO DAILY #90 tabs 08/25/24 tablet,extended release(part/cryst) sodium bicarbonate 650 mg tablet 650 mg PO TID #270 tabs 08/25/24 sucralfate 1 gram tablet 1 g PO QIDACHS #360 tabs 08/25/24 Allergies Allergy/AdvReac Type Severity Reaction Status Date / Time Fish Containing Products Allergy Severe THROAT Verified 09/08/24 15:07 SWELLING peanut [Peanut] Allergy Severe THROAT Verified 09/08/24 15:07 SWELLING Review of Systems 2 Review of Systems: Yes all other systems are reviewed and are negative PMFSH Past Medical History Medical History Urethral obstruction Acute urinary retention Gross hematuria Alcoholic hepatitis Thrombocytopenia Nausea & vomiting Hyponatremia Acute hypokalemia Alcohol dependence Ascites Congestive heart failure Anemia ETOH abuse Alcoholic cirrhosis PTSD (post-traumatic stress disorder) Hyponatremia Acute hyponatremia NATHANIEL (acute kidney injury) Acute metabolic encephalopathy Falls Alcoholic cirrhosis of liver with ascites Prostate cancer Depression Hyperlipidemia Hypertension Anxiety Social History Social History Household Members: Significant Other Household Members Other:: Ethalee Housing: [facility] Do you presently have visiting nurse or other home services: Yes ([facility]) Unable to assess alcohol history related to: Refusing to respond Alcohol intake: former Comment: bilateral wrist restraints for airway safety Patient Tobacco Use Status: Current everyday Tobacco user Tobacco use type: Cigarette Cigarette Packs Per Day: 3 Cigarettes Per Day: 3 Years Smoked: 25 e-Cigarette/Vaping Use: Never Used Second Hand Smoke Exposure: No Substance Use Type: Marijuana Advance Directives: Yes Advance Directives on File: Yes Advance Directives Date on File: 04/03/24 Do you have a plan to hurt others: No Plan service: No Current occupational status: disabled Physical Exam 2 Vital Signs: Vital Signs: Last Vital Signs Temp 98.1 F 09/08/24 17:34 Pulse 72 09/08/24 17:34 Resp 16 09/08/24 17:34 BP 95/42 L 09/08/24 17:34 Pulse Ox 95 09/08/24 17:34 O2 Del Method Room Air 09/08/24 17:34 BMI result Body Mass Index 27.9 Appearance: Alert. Oriented X3. No acute distress. Eyes: pallor+ icterus+ ENT: Pharynx normal. Oral Mucosa moist Neck: Normal inspection. Neck supple. CVS: Normal heart rate and rhythm. Pulses normal. Respiratory: No respiratory distress. Equal air entry bilateral, no wheezing/rales/rhonchi Abdomen: Soft and nontender. Bowel sounds are present, no mass palpable, no CVA tenderness Skin: Skin warm and dry. Normal skin color. Normal skin turgor. Extremities++ lower extremity edema. No calf tenderness Neuro: Oriented X 3. No motor deficit. Medical Decision Making Medical Decision Making MDM Narrative: Patient's anxiety attack with transient shortness a breath saturating 100% on room no active complaints at this time patient does have chronic conditions been followed by his PCP as outpatient labs are stable discharge patient back to Lab Data MDM Lab Attestation statement: I reviewed the patient's lab results. 09/08/24 15:29 09/08/24 15:29 Labs: Lab Results 09/08/24 Range/Units 15:29 WBC 9.2 (4.8-10.8) X10*3/uL RBC 2.47 L (4.60-5.80) X10*6/uL Hgb 7.8 L (14.0-18.0) g/dl Hct 23.9 L (42.0-52.0) % MCV 96.8 (80.0-98.0) fL MCH 31.6 (27.0-33.0) pg MCHC 32.6 (31.0-36.0) g/dl RDW 16.3 H (11.0-16.0) % Plt Count 101 L D (160-400) X10*3/uL MPV 10.2 (9.4-12.4) fL Immature Gran % (Auto) 2.4 H (0.0-0.4) % Neut % (Auto) 66.6 (45-73) % Lymph % (Auto) 18.2 L (20-40) % [place] % (Auto) 9.8 (2-11) % Eos % (Auto) 2.6 (0-4) % Baso % (Auto) 0.4 (0-2) % Lymph # (Auto) 1.7 (1.2-4.9) X10*3/uL [place] # (Auto) 0.9 (0.1-1.2) X10*3/uL Eos # (Auto) 0.2 (0.0-0.4) X10*3/uL Baso # (Auto) 0.0 (0.0-0.2) X10*3/uL Abs Immat Gran (auto) 0.22 H (0.00-0.03) X10*3/uL Absolute Neuts (auto) 6.1 (2.0-8.3) x10*3/uL Absolute Nucleated RBC 0.000 (0.0-0.012) X10*3/uL Nucleated RBC % (auto) 0.0 (0.0-0.2) /100WBC Sodium 135 (135-145) mmol/L Potassium 3.2 L (3.3-5.1) mmol/L Chloride 103 (96-108) mmol/L Carbon Dioxide 24 (22-29) mmol/L Anion Gap 11 L (12-20) BUN 7 L (9-16) mg/dL Creatinine 0.99 (0.5-1.4) mg/dL Estim Creat Clear Calc 87.1 Estimated GFR > 60 Random Glucose 105 (60-115) mg/dL Calcium 8.1 L (8.4-10.2) mg/dL Total Bilirubin 3.1 H (0.0-1.0) mg/dL Direct Bilirubin 1.9 H (0.0-0.5) mg/dL AST 32 (5-37) U/L ALT 11 (0-40) U/L Alkaline Phosphatase 152 H (39-117) U/L Troponin I High Sens < 2.7 (<3.5-35.0) ng/L Total Protein 6.7 (6.5-8.0) g/dL Albumin 2.7 L (3.5-5.0) g/dL Ethyl Alcohol < 10 mg/dL Discharge Plan Discharge Clinical Impression: Anxiety Patient Disposition: Home, Self-Care Instructions: Anxiety (ED) Additional Instructions: Continue to take your medicatios Follow up with your PCP Prescriptions: No Action mirtazapine 15 mg tablet 15 mg PO BEDTIME melatonin 10 mg tablet 10 mg PO BEDTIME furosemide 40 mg tablet 40 mg PO DAILY Protocol: Hold for SBP< HOLD for SBP < : 90 omeprazole 40 mg capsule,delayed release(DR/EC) 40 mg PO DAILY@0630 linezolid 600 mg Tablet 600 mg PO Q12H Qty: 12 0RF Rx Instructions: END DATE: 09/02/24 potassium chloride 20 mEq Tablet,Er Particles/Crystals 20 meq PO DAILY Qty: 90 0RF sodium bicarbonate 650 mg Tablet 650 mg PO TID Qty: 270 0RF lactulose 20 gram/30 mL Solution 20 g PO DAILY 90 Days Qty: 2700 0RF sucralfate 1 gram Tablet 1 g PO QIDACHS Qty: 360 0RF tamsulosin 0.4 mg capsule 0.4 mg PO BEDTIME Print Language: Yakut
[2024-09-08 17:34] VITALS: BP 95/42; PULSE 72; RESP 16; TEMP 36.7; O2SAT 95
[2024-09-08 18:22] VITALS: BP 100/43; PULSE 70; RESP 16; TEMP 36.8; O2SAT 99
[2024-09-08 18:42] VITALS: BP 100/43; PULSE 70; RESP 16; TEMP 36.8; O2SAT 99
== END 2024-09-08 18:45 | disposition home or self-care (01) ==
PROVIDERS: Emergency Provider Internal Medicine; PCP Internal Medicine
DX: F41.9 Anxiety disorder, unspecified (principal); R06.02 Shortness of breath; F17.210 Nicotine dependence, cigarettes, uncomplicated; Z51.81 Encounter for therapeutic drug level monitoring; Z79.899 Other long term (current) drug therapy
CPT/HCPCS: 36415; 80053; 80307; 82248; 84484; 85025; 93005; 99284

== ENCOUNTER → 2024-09-08 15:10 | Outpatient (BNV) | payer MEDICARE, SELFPAY | PROVIDERS: Emergency Provider Internal Medicine; PCP Internal Medicine; Visit Provider Internal Medicine | DX: R06.09 Other forms of dyspnea (principal) | CPT/HCPCS: 93010 ==

== ENCOUNTER 2024-09-13 20:06 | Emergency (ER) | payer MEDICARE, SELFPAY ==
[2024-09-13 20:11] VITALS: BP 118/80; PULSE 80; O2SAT 98
[2024-09-13 20:14] VITALS: BP 103/42; PULSE 78; RESP 18; TEMP 36.8; O2SAT 99; BMI 30.2
[2024-09-13 20:59] LABS: MANUAL DIFF FLAG NO
[2024-09-13 21:01] LABS: Basophils Absolute Auto 0.1 X10*3/uL (0.0-0.2); Basophils Percent Auto 0.5 % (0-2); Eosinophils Absolute Auto 0.3 X10*3/uL (0.0-0.4); Eosinophils Percent Auto 2.7 % (0-4); Hematocrit 23.6 % (42.0-52.0); Hemoglobin 7.7 g/dl (14.0-18.0); Imm Gran Abs Auto 0.11 X10*3/uL (0.00-0.03); Imm Gran Pct Auto 1.1 % (0.0-0.4); Lymphocytes Absolute Auto 1.5 X10*3/uL (1.2-4.9); Lymphocytes Percent Auto 15.8 % (20-40); Mean Corpuscular HGB Conc 32.6 g/dl (31.0-36.0); Mean Corpuscular Hemoglobin 32.8 pg (27.0-33.0); Mean Corpuscular Volume 100.4 fL (80.0-98.0); Mean Platelet Volume 9.8 fL (9.4-12.4); Monocytes Absolute Auto 1.1 X10*3/uL (0.1-1.2); Monocytes Percent Auto 10.9 % (2-11); Neutrophils Absolute Auto 6.7 x10*3/uL (2.0-8.3); Platelet Count 120 X10*3/uL (160-400); Red Blood Count 2.35 X10*6/uL (4.60-5.80); Red Cell Distribution Width 21.2 % (11.0-16.0); White Blood Count 9.7 X10*3/uL (4.8-10.8)
--- NOTE | 2024-09-13 21:08 | MHC.EDTECH ---
Patient was biba from home ,vitals taken ,bladder scan done ,PRITI Phipps aware of Patient bladder scan result of 17 ml ,blood drawn including both sets of blood culture and lactic acid ,all sent to lab ,Patient was soiled with dry stool stool ,care given ,Patient was change into hospital attire ,but Patient wanted to keep his shirt underneath gown ,because he was cold ,Patient was reposition and boosted up in bed .Patient watching television at this time .
[2024-09-13 21:14] LABS: Lactic Acid 4.3 mmol/L (0.5-2.0)
[2024-09-13 21:15] LABS: Alanine Aminotransferase < 6 U/L (0-40); Albumin Level 2.5 g/dL (3.5-5.0); Alkaline Phosphatase 184 U/L (39-117); Anion Gap 14 (12-20); Aspartate Amino Transferase 29 U/L (5-37); Bilirubin Total 3.5 mg/dL (0.0-1.0); Blood Urea Nitrogen 13 mg/dL (9-16); Calcium 7.5 mg/dL (8.4-10.2); Carbon Dioxide 21 mmol/L (22-29); Chloride 104 mmol/L (96-108); Creatinine Clr Calc Pharmacy 88.5; Estimated Glomerular Filt Rate > 60; Glucose Random 118 mg/dL (60-115); Potassium 3.9 mmol/L (3.3-5.1); Sodium 135 mmol/L (135-145); Total Protein 6.7 g/dL (6.5-8.0)
--- NOTE | 2024-09-13 21:45 | ED_ITS ---
HPI - Male Genitourinary General Chief complaint: Urogenital-Male Stated complaint: blood in catheter Time Seen by Provider: 09/13/24 21:45 Source: patient Mode of arrival: EMS Limitations: no limitations History of Present Illness ED Provider: HPI Narrative: 59-year-old male with a PMH significant for?prostate cancer with urethral obstruction, decompensated alcoholic liver cirrhosis with ascites, esophageal varices with recent UGIB, portal hypertension gastropathy, hx of hypokalemia, chronic indwelling Barber catheter since 03/08 had a UTI with Enterococcus faecalis VRE treated with Zyvox antibiotic finished today patient does not want the Barber catheter anymore asking us to remove the catheter as he is still feeling pain around the Barber catheter in is leaking bladder scan showed only 17 cc of urine Related Data Home Medications ?Medication ?Instructions ?Recorded ?Confirmed melatonin 10 mg tablet 10 mg PO BEDTIME Insomnia 11/13/23 08/31/24 mirtazapine 15 mg tablet 15 mg PO BEDTIME 11/13/23 08/31/24 tamsulosin 0.4 mg capsule 0.4 mg PO BEDTIME 07/23/24 08/31/24 furosemide 40 mg tablet 40 mg PO DAILY 08/24/24 08/31/24 omeprazole 40 mg capsule,delayed 40 mg PO DAILY@0630 08/24/24 08/31/24 release Previous Rx's ?Medication ?Instructions ?Recorded lactulose 20 gram/30 mL oral 20 g (30 mL) PO DAILY 90 days 08/25/24 solution #2,700 mL linezolid 600 mg tablet 600 mg PO Q12H #12 tabs 08/25/24 potassium chloride 20 mEq 20 meq PO DAILY #90 tabs 08/25/24 tablet,extended release(part/cryst) sodium bicarbonate 650 mg tablet 650 mg PO TID #270 tabs 08/25/24 sucralfate 1 gram tablet 1 g PO QIDACHS #360 tabs 08/25/24 nystatin 100,000 unit/gram topical 1 appl topical BID #60 grams 09/13/24 powder Allergies Allergy/AdvReac Type Severity Reaction Status Date / Time Fish Containing Products Allergy Severe THROAT Verified 09/13/24 20:15 SWELLING peanut [Peanut] Allergy Severe THROAT Verified 09/13/24 20:15 SWELLING Review of Systems 2 Review of Systems: Yes all other systems are reviewed and are negative [facility] Past Medical History Medical History Urethral obstruction Acute urinary retention Gross hematuria Alcoholic hepatitis Thrombocytopenia Nausea & vomiting Hyponatremia Acute hypokalemia Alcohol dependence Ascites Congestive heart failure Anemia ETOH abuse Alcoholic cirrhosis PTSD (post-traumatic stress disorder) Hyponatremia Acute hyponatremia NATHANIEL (acute kidney injury) Acute metabolic encephalopathy Falls Alcoholic cirrhosis of liver with ascites Prostate cancer Depression Hyperlipidemia Hypertension Anxiety Social History Social History Household Members: Significant Other Household Members Other:: Ethalee [facility] Do you presently have visiting nurse or other home services: Yes ([facility]) Unable to assess alcohol history related to: Refusing to respond Alcohol intake: former Comment: bilateral wrist restraints for airway safety Patient Tobacco Use Status: Current everyday Tobacco user Tobacco use type: Cigarette Cigarette Packs Per Day: 3 Cigarettes Per Day: 3 Years Smoked: 25 Smoked in Last 30 Days: Yes e-Cigarette/Vaping Use: Never Used Second Hand Smoke Exposure: No Use of substances other than those prescribed or required for medical reasons: Yes Substance Use Type: Marijuana Advance Directives: Yes Advance Directives on File: Yes Advance Directives Date on File: 04/03/24 service: No Current occupational status: disabled Physical Exam 2 Vital Signs: Vital Signs: Last Vital Signs Temp 98.0 F 09/13/24 23:10 Pulse 76 09/13/24 23:10 Resp 16 09/13/24 23:10 BP 109/54 L 09/13/24 23:10 Pulse Ox 98 09/13/24 23:10 O2 Del Method Room Air 09/13/24 23:10 BMI result Body Mass Index 30.2 Appearance: Alert. Oriented X3. No acute distress. Eyes: PERRLA, No Nystagmus ENT: Pharynx normal. Oral Mucosa moist Neck: Normal inspection. Neck supple. CVS: Normal heart rate and rhythm. Pulses normal. Respiratory: No respiratory distress. Equal air entry bilateral, no wheezing/rales/rhonchi Abdomen: Soft and nontender. Bowel sounds are present, no mass palpable, no CVA tenderness Skin: Skin warm and dry. Normal skin color. Normal skin turgor. Extremities: ++ lower extremity edema. No calf tenderness Neuro: Oriented X 3. No motor deficit. No sensory deficit.No cerebellar signs , cranial nerves II-XII intact Medical Decision Making Medical Decision Making [facility] Narrative: Patient has indwelling Barber catheter was cancer and bladder neck obstruction with UTI patient asking us to remove the Barber catheter as it has been bothering him a lot along with leaking catheter will remove the catheter patient has just finished antibiotics no fever patient has urinated in the ER after removal of the catheter Lab Data [facility] Lab Attestation statement: I reviewed the patient's lab results. 09/13/24 20:52 09/13/24 20:52 Labs: Lab Results 09/13/24 09/13/24 Range/Units 20:52 22:03 WBC 9.7 (4.8-10.8) X10*3/uL RBC 2.35 L (4.60-5.80) X10*6/uL Hgb 7.7 L (14.0-18.0) g/dl Hct 23.6 L (42.0-52.0) % MCV 100.4 H (80.0-98.0) fL MCH 32.8 (27.0-33.0) pg MCHC 32.6 (31.0-36.0) g/dl RDW 21.2 H (11.0-16.0) % Plt Count 120 L (160-400) X10*3/uL MPV 9.8 (9.4-12.4) fL Immature Gran % (Auto) 1.1 H (0.0-0.4) % Neut % (Auto) 69.0 (45-73) % Lymph % (Auto) 15.8 L (20-40) % [place] % (Auto) 10.9 (2-11) % Eos % (Auto) 2.7 (0-4) % Baso % (Auto) 0.5 (0-2) % Lymph # (Auto) 1.5 (1.2-4.9) X10*3/uL [place] # (Auto) 1.1 (0.1-1.2) X10*3/uL Eos # (Auto) 0.3 (0.0-0.4) X10*3/uL Baso # (Auto) 0.1 (0.0-0.2) X10*3/uL Abs Immat Gran (auto) 0.11 H (0.00-0.03) X10*3/uL Absolute Neuts (auto) 6.7 (2.0-8.3) x10*3/uL Absolute Nucleated RBC 0.000 (0.0-0.012) X10*3/uL Nucleated RBC % (auto) 0.0 (0.0-0.2) /100WBC Sodium 135 (135-145) mmol/L Potassium 3.9 D (3.3-5.1) mmol/L Chloride 104 (96-108) mmol/L Carbon Dioxide 21 L (22-29) mmol/L Anion Gap 14 (12-20) BUN 13 (9-16) mg/dL Creatinine 0.98 (0.5-1.4) mg/dL Estim Creat Clear Calc 88.5 Estimated GFR > 60 Random Glucose 118 H (60-115) mg/dL Lactic Acid 4.3 H* (0.5-2.0) mmol/L Calcium 7.5 L D (8.4-10.2) mg/dL Total Bilirubin 3.5 H (0.0-1.0) mg/dL AST 29 (5-37) U/L ALT < 6 (0-40) U/L Alkaline Phosphatase 184 H (39-117) U/L Total Protein 6.7 (6.5-8.0) g/dL Albumin 2.5 L (3.5-5.0) g/dL Urine Color Bosler Urine Appearance Hazy Urine pH 6.5 (5.0-9.0) Ur Specific [place] >= 1.030 H (1.005-1.025) Urine Protein 300 (3+) H (Neg-Trace) mg/dL Urine Glucose (UA) Negative (Negative) mg/dL Urine Ketones Trace (Negative) mg/dL Urine Blood Large (3+) H (Negative) Urine Nitrite Positive H (Negative) Ur Leukocyte Esterase Moderate (2+) H (Negative) Urine RBC >20 H (0-2) /HPF Urine WBC >50 (0-5) /HPF Ur Squamous Epith Cells 0-2 (0-2) /HPF Urine Bacteria Trace (None Seen) Hyaline Casts 0-2 (0-2) /LPF Urine Yeast Present Discharge Plan Discharge Clinical Impression: Complication of Barber catheter Patient Disposition: Home, Self-Care Instructions: Barber Catheter Removal (DC) Additional Instructions: Drink plenty of fluids Report if unable to urinate for Barber catheter replacement Apply nystatin powder for yeast infection as advised Prescriptions: New nystatin 100,000 unit/gram powder 1 appl topical BID Qty: 60 0RF No Action mirtazapine 15 mg tablet 15 mg PO BEDTIME melatonin 10 mg tablet 10 mg PO BEDTIME furosemide 40 mg tablet 40 mg PO DAILY Protocol: Hold for SBP< HOLD for SBP < : 90 omeprazole 40 mg capsule,delayed release(DR/EC) 40 mg PO DAILY@0630 linezolid 600 mg Tablet 600 mg PO Q12H Qty: 12 0RF Rx Instructions: END DATE: 09/02/24 potassium chloride 20 mEq Tablet,Er Particles/Crystals 20 meq PO DAILY Qty: 90 0RF sodium bicarbonate 650 mg Tablet 650 mg PO TID Qty: 270 0RF lactulose 20 gram/30 mL Solution 20 g PO DAILY 90 Days Qty: 2700 0RF sucralfate 1 gram Tablet 1 g PO QIDACHS Qty: 360 0RF tamsulosin 0.4 mg capsule 0.4 mg PO BEDTIME Interventions: ED Discharge Assessment Last Done: 09/13/24 23:10 Discharge Date/Time: 09/13/24 23:10 Print Language: Turkmen
[2024-09-13 21:46] VITALS: BP 104/48; PULSE 80; RESP 16; TEMP 36.8; O2SAT 99
[2024-09-13 22:16] LABS: Appearance Urine Hazy; Color Urine Orange; Glucose Urine UA Negative (Negative); Leukocyte Esterase Urine Moderate (2+) (Negative); Nitrite Urine Positive (Negative); PH 6.5 (5.0-9.0); Specific Gravity - Urine >= 1.030 (1.005-1.025); UMIC TRIGGER UACC YES; Urine Blood Large (3+) (Negative); Urine Ketones Trace mg/dL (Negative); Urine Protein 300 (3+) mg/dL (Neg-Trace)
[2024-09-13 22:26] LABS: RBC Urine >20 /HPF (0-2); Squamous Epithelial Cell Urine 0-2 /HPF (0-2); UACC Culture Trigger YES; WBC Urine >50 /HPF (0-5)
[2024-09-13 22:27] LABS: Bacteria Urine Trace (None Seen); Hyaline Casts Urine 0-2 /LPF (0-2)
[2024-09-13 22:45] VITALS: BP 109/54; PULSE 76; RESP 16; TEMP 36.7; O2SAT 98
[2024-09-13 22:56] LABS: Reflex Lactate? Lactic Acid Added
[2024-09-13 23:10] VITALS: BP 109/54; PULSE 76; RESP 16; TEMP 36.7; O2SAT 98
== END 2024-09-13 23:10 | disposition home or self-care (01) ==
PROVIDERS: Emergency Provider Internal Medicine
DX: T83.098A Other mechanical complication of other urinary catheter, initial encounter (principal); Y73.8 Miscellaneous gastroenterology and urology devices associated with adverse incidents, not elsewhere classified; Y92.89 Other specified places as the place of occurrence of the external cause; Z79.899 Other long term (current) drug therapy
CPT/HCPCS: 36415; 80053; 81001; 83605; 85025; 87040; 87086; 87088; 99284

== ENCOUNTER 2024-10-16 01:23 | Emergency (ER) | payer OTHER, MEDICARE, SELFPAY ==
--- NOTE | 2024-10-16 | ECG_ITS ---
Test Reason : NAUSEA Blood Pressure : / mmHG Vent. Rate : 069 BPM Atrial Rate : 069 BPM P-R Int : 196 ms QRS Dur : 124 ms QT Int : 460 ms P-R-T Axes : 052 -20 056 degrees QTc Int : 492 ms Normal sinus rhythm Non-specific intra-ventricular conduction delay Borderline ECG When compared with ECG of 08-SEP-2024 15:14, Nonspecific T wave abnormality now evident in Lateral leads Referred By: Generic ED Physician Electronically Signed By:ELIECER RAWLS MD
[2024-10-16 01:30] VITALS: BP 110/52; BP 111/54; PULSE 78; PULSE 84; RESP 18; TEMP 36.2; O2SAT 98; BMI 26.5
[2024-10-16 01:43] LABS: MANUAL DIFF FLAG NO
[2024-10-16 01:44] LABS: Basophils Absolute Auto 0.1 X10*3/uL (0.0-0.2); Basophils Percent Auto 0.7 % (0-2); Eosinophils Absolute Auto 0.9 X10*3/uL (0.0-0.4); Eosinophils Percent Auto 8.5 % (0-4); Hematocrit 24.7 % (42.0-52.0); Hemoglobin 8.2 g/dl (14.0-18.0); Imm Gran Abs Auto 0.05 X10*3/uL (0.00-0.03); Imm Gran Pct Auto 0.5 % (0.0-0.4); Lymphocytes Absolute Auto 2.3 X10*3/uL (1.2-4.9); Lymphocytes Percent Auto 20.4 % (20-40); Mean Corpuscular HGB Conc 33.2 g/dl (31.0-36.0); Mean Corpuscular Hemoglobin 33.7 pg (27.0-33.0); Mean Corpuscular Volume 101.6 fL (80.0-98.0); Monocytes Absolute Auto 1.1 X10*3/uL (0.1-1.2); Monocytes Percent Auto 10.2 % (2-11); Neutrophils Absolute Auto 6.6 x10*3/uL (2.0-8.3); Neutrophils Percent Auto 59.7 % (45-73); Platelet Count 102 X10*3/uL (160-400); Red Blood Count 2.43 X10*6/uL (4.60-5.80); Red Cell Distribution Width 17.7 % (11.0-16.0); White Blood Count 11.1 X10*3/uL (4.8-10.8)
--- OUTSIDE RECORDS SUMMARY | 2024-10-16 01:48 | XMS_ITS | Continuity of Care Document ---
Author Organization [facility] Address [address] [place] [address]- Care Team Providers Care Commercial Census Taker Name Role Phone Estella ROE, Fransisco Palacios Primary Care Physician Encounter [facility] Date(s): 08/20/24 - 09/19/24 [facility] [address] [place] [address]- Encounter Type: Triage Allergies, Adverse Reactions, Alerts Substance Criticality Severity Reaction Reaction Severity Status benazepril hyperkalemiae Activ e Paxil Active Fish Active Peanuts Active Immunizations Given and Recorded Vaccine Date Status Refusal Reason zoster vaccine, inactivated 09/27/23 Recorded influenza virus vaccine, inactivated 09/18/23 Give n influenza virus vaccine, inactivated 07/15/22 Crescencio rded influenza virus vaccine, inactivated 12/17/21 Give n influenza virus vaccine, inactivated 06/19/21 Crescencio rded influenza virus vaccine, inactivated 07/07/20 Give n influenza virus vaccine, inactivated 07/06/19 Crescencio rded influenza virus vaccine, inactivated 07/08/18 Crescencio rded influenza virus vaccine, inactivated 1 08/04/17 Gi lenora influenza virus vaccine, inactivated 08/17/16 Give n influenza virus vaccine, inactivated 2 07/01/15 Re corded influenza virus vaccine, inactivated 07/16/14 Give n influenza virus vaccine, inactivated 09/05/13 Give n influenza virus vaccine, inactivated 06/30/11 Give n pneumococcal 20-valent conjugate vaccine 05/02/23 Given pneumococcal 20-valent conjugate vaccine 05/01/23 Given [id number] 12y+ bivalent booster vax 08/11/22 Recorded SARS-CoV-2 mRNA ([id number]) vax 04/04/22 Recorded SARS-CoV-2 (COVID-19) mRNA BNT-162b2 vac 3 10/28/21 Given SARS-CoV-2 (COVID-19) mRNA BNT-162b2 vac 03/03/21 Recorded SARS-CoV-2 (COVID-19) mRNA BNT-162b2 vac 02/10/21 Recorded Influenza Virus Vaccine (oldterm) 07/02/19 Recorde d tetanus/diphtheria/pertussis, acel(Tdap) 4 10/18/18 Given tetanus-diphtheria toxoids (Td) 5 08/04/17 Given pneumococcal 13-valent vaccine 03/02/17 Given pneumococcal 23-valent vaccine 01/01/13 Given FluLaval (oldterm) 09/03/12 Given FluLaval (oldterm) 08/26/10 Given hepatitis B adult vaccine 06/28/10 Given Hepatitis A Adult Vaccine 06/28/10 Given Hepatitis A Adult Vaccine 10/20/09 Given Hepatitis B Vaccine (old term) 11/18/09 Given Hepatitis B Vaccine (old term) 10/20/09 Given Tet/Diphth/Acel, Pertussis (oldterm) 08/18/07 Give n 1Result Comment: [08/04/2017] [facility] [id number] 2Result Comment: [07/02/2015] GIVEN AT [facility] 3Result Comment: [facility]-[id number] 4Result Comment: [10/18/2018] PT has A NEW BABY ON THE WAY. 5Result Comment: [08/04/2017] [facility] [id number] Medications Constulose 10 gm/15 ml oral syrup 30 mL = 20 Gm, By Mouth, Daily Start Date: 09/01/24 Status: Ordered Repeat number: 1 ferrous sulfate 324 mg (65 mg elemental iron) oral delayed release tablet 1 tablet = 324 mg, By Mouth, Daily, 0 Refills, Maintenance, 01/04/24 11:41:00 AM EDT, Partial fill upon patient request if the prescription is for a schedule II opioid drug. Start Date: 01/04/24 Status: Ordered Repeat number: 1 furosemide 40 mg oral tablet 40 mg, 1, tablet, By Mouth, Daily, # 90 tablet, Refills 0, Tot. Refills 0, Maintenance, 09/13/24 7:39:00 PM EST, Route to Pharmacy Electronically, [id number], Partial fill upon patient request if the prescription is for a schedule II opioid drug., 173, cm, 09/03/24 6:15:00 EST, Height, 73, kg, 09/02/24 7:38:00 EST, Dry Weight Start Date: 09/13/24 Stop Date: 12/12/24 Status: Ordered Quantity: 90.0 Unit: tablet Repeat number: 1 melatonin 10 mg oral tablet 2 tablet = 20 mg, By Mouth, Daily at bedtime, Maintenance, 09/01/24 9:59:00 AM EST, Tablet, Partialfill upon patient request if the prescription is for a schedule II opioid drug. Start Date: 09/01/24 Status: Ordered Repeat number: 1 Potassium Chloride (Eqv-K-Tab) 20 mEq oral tablet, extended release 1 tablet = 20 mEq, By Mouth, Daily, # 90 tablet, 3 Refills, Maintenance, 11/17/23 11:17:00 AM EST, [id number], Partial fill upon patient request if the prescription is for a schedule II opioid drug., 169, cm, 11/16/23 9:54:00 EST, Height, 87.2, kg, 08/31/23 9:50:00 EST, Dry Weight Start Date: 11/17/23 Stop Date: 11/11/24 Status: Ordered Quantity: 90.0 Unit: tablet Repeat number: 4 Protonix 40 mg oral delayed release tablet 1 tablet = 40 mg, By Mouth, 2 times a day, # 60 tablet, 0 Refills, Maintenance, 09/03/24 2:23:00 PMEST, CR Tablet, 173, cm, 09/03/24 6:15:00 EST, Height, 73, kg, 09/02/24 7:38:00 EST, Dry Weight Start Date: 09/03/24 Status: Ordered Quantity: 60.0 Unit: tablet Repeat number: 1 Seroquel By Mouth, Nightly Seroquel, Refills 0, Maintenance, 11/16/23 10:09:00 AM EST, Partial fill upon patient request if the prescription is for a schedule II opioid drug. Start Date: 11/16/23 Status: Ordered Repeat number: 1 sodium bicarbonate 650 mg oral tablet 1 tablet = 650 mg, By Mouth, 3 times a day Start Date: 09/01/24 Status: Ordered Repeat number: 1 spironolactone 100 mg oral tablet 100 mg, 1, tablet, By Mouth, Daily, # 90 tablet, Refills 0, Tot. Refills 0, Maintenance, 02/09/24 10:02:00 AM EDT, Route to Pharmacy Electronically, [id number], Partial fill upon patient request if the prescription is for a schedule II opioid drug., 169, cm, 01/26/24 9:15:00 EDT, Height, 102.27, kg, 01/16/24 9:49:00 EDT, Dry Weight Start Date: 02/09/24 Stop Date: 05/09/24 Status: Ordered Quantity: 90.0 Unit: tablet Repeat number: 1 sucralfate 1 gm oral tablet 1 Gm, 1, tablet, By Mouth, 2 times a day, # 60 tablet, Refills 0, Maintenance, 01/04/24 11:40:00 AM EDT, Partial fill upon patient request if the prescription is for a schedule II opioid drug. Start Date: 01/04/24 Status: Ordered Quantity: 60.0 Unit: tablet Repeat number: 1 tamsulosin 0.4 mg oral capsule 0.4 mg, 1, capsule, By Mouth, Daily, # 90 capsule, Refills 0, Tot. Refills 0, Maintenance, 08/20/24 2:49:00 PM EST, Route to Pharmacy Electronically, [id number], Partial fill upon patient request if the prescription is for a schedule II opioid drug., 169, cm, 01/26/24 9:15:00 EDT, Height,102.27, kg, 01/16/24 9:49:00 EDT, Dry Weight Start Date: 08/20/24 Status: Ordered Quantity: 90.0 Unit: capsule Repeat number: 1 Problem List Condition Confirmation Course Effective Dates Status H ealth Status Informant Acne rosacea Confirmed Active Colon adenomas 2018 ,2 Confirmed Active Pulmonary hyperinflation 1 Confirmed 08/15/15 Active Alcoholism Confirmed Active Anxiety Confirmed Active Aortic ejection murmur refer ECHO 2021 no valve issues Confirmed 05/18/22 Active Ascites recurrent 2 Confirmed Active Weakness generalized Confirmed Active BPH without urinary obstruction 3 Confirmed 09/21/09 Active Chronic anemia Confirmed Active Chronic back pain 4 Confirmed 09/04/10 Active Cirrhosis biopsy 2017 small varices last EGD 2021 5 Confirmed Active Depression, major, 6, 7 Confirmed Active Erosive esophagitis 8 Confirmed Active Esophageal reflux (GERD) with barretts;EGD 2018 9 Confirmed 11/18/09 Active Esophageal varices in alcoholic cirrhosis 10 Confirmed Active Familial hyperlipidemia Confirmed Active Family History of Malignant Neoplasm of Prostate 11 Confirmed Active Gynecomastia left ammohgram 2016 12, 13 Confirmed 05/24/17 Active Hiatal hernia 14 Confirmed Active Hypokalemia Confirmed Active IFG (impaired fasting glucose) 15 Confirmed Active Erectile dysfunction Confirmed Active Schatzki's ring 16 Confirmed Active Cancer of prostate ADT/XRT Confirmed 07/08/20 Active Memory MMSE23/30 Confirmed 01/18/21 Active Overactive bladder Confirmed Active Large pleural effusion left Confirmed Active Portal hypertensive gastropathy 17 Confirmed Active PTSD (post-traumatic stress disorder) Confirmed Active Long QT interval 504 may 2022 Confirmed 06/26/21 Active Seborrhea 18 Confirmed Active Severe obesity (BMI 35.0-39.9) with comorbidity Confirmed Active Tobacco abuse offered LDCT declined 19 Confirmed Active 1pfts 2refer 3urology 4saw neurosurgery;refer physiatry 5steatohepatitis 6sees psychiatry and therapy [facility]; airam lopezthelma and sophia crow psyche 7in IOP,suicidal attempt 8EGD 2023 9had EGD 10EGD 2023 11prostate cancer father, two uncles,cousin 12labs wnl 13pos mammogram 14EGD 2023 15advised pre diabetic,increased risk diabetes 16EGD 2023 17EGD 2023 18selsun 19counsel [id number] Social History Social History Type Response Tobacco Other: quit Oct 2019 . Sex Sex Representation Male (finding) Patient Care team information Care Team Personnel Name: Jl Apple MD Position: [facility] Physician - Gastroenterology Member Role: Lifetime Consulting Physician Address: [address], [address] [facility] [place] [address]- Telecom: Name: Fransisco Soria MD Position: [facility] Physician - Primary Care Member Role: PCP Address: [address] [place] [address]- Telecom: Name: Charli Nassar RN Position: S RN Member Role: Primary Care Nurse Name: Beverly Roach RN Position: [facility] Russell RN Member Role: Primary Care Nurse Name: Naida Nobles RN Position: S RN Member Role: Primary Care Nurse Name: Miles Espinoza RN Position: S RN Member Role: Primary Care Nurse Name: Wagner Cabrera RN Position: S RN Member Role: Primary Care Nurse Name: Wagner Elizabeth RN Position: [facility] RN Member Role: Primary Care Nurse Care Team Related Persons Name: DUYEN RAMIREZ Name: LORENZA GANDHI Name: KARLENE ROBERSON Insurance Providers Guarantor name: JAJA RAMIREZ Health Plan Information #: 1 Payer: [employer] Member Number: NA Policy Number: NA Group Number: NA
--- OUTSIDE RECORDS SUMMARY | 2024-10-16 01:48 | XMS_ITS | Continuity of Care Document ---
Author Organization [facility] ter Address [address] [place] [address]- Care Team Providers Care Ruby Engineer Name Role Phone Estella ROE, Fransisco Palacios Primary Care Physician [phone] [place] [facility] [place](s[place] 08/29/24 - 10/03/[address] [address] Attending Physician: Jl Apple MD Admitting Physician: Jl Apple MD Referring Physician: Jl Apple MD Encounter Type: Preadmit Daystay Allergies, Adverse Reactions, Alerts Substance Criticality Severity [...] Given pneumococcal 20-valent conjugate vaccine 05/01/23 Given [id number] 12y+ bivalent booster vax 08/11/22 Recorded SARS-CoV-2 mRNA ([id number]) vax 04/04/22 Recorded SARS-CoV-2 (COVID-19) mRNA BNT-162b2 [...] (oldterm) 08/18/07 Give n 1Result Comment: [08/04/2017] [facility] [id number] 2Result Comment: [07/02/2015] GIVEN AT [facility] 3Result Comment: [facility]-[id number] 4Result Comment: [10/18/2018] PT has A NEW BABY ON THE WAY. 5Result Comment: [08/04/2017] [facility] [id number] Medications Constulose 10 gm/15 ml oral syrup [...] 7:39:00 PM EST, Route to Pharmacy Electronically, [id number], Partial fill upon patient request [...] 3 Refills, Maintenance, 11/17/23 11:17:00 AM EST, [facility], Partial fill upon patient request [...] 10:02:00 AM EDT, Route to Pharmacy Electronically, [facility], Partial fill upon patient request [...] 2:49:00 PM EST, Route to Pharmacy Electronically, [facility], Partial fill upon patient request [...] 6sees psychiatry and therapy [facility]; airam alec and sophia maria psyche 7in IOP,suicidal attempt 8EGD 2023 9had EGD 10EGD 2023 11prostate cancer father, two uncles,cousin 12labs wnl 13pos mammogram 14EGD 2023 15advised pre diabetic,increased risk diabetes 16EGD 2023 17EGD 2023 18selsun 19counsel [id number] Social History Social History Type Response Tobacco Other: quit Oct 2019 . Sex Sex Representation Male (finding) Patient Care team information Care Team Personnel Name: Jl Apple MD Position: [facility] Physician - Gastroenterology Member Role: Lifetime Consulting Physician Address: [address] [place] [address], [address] [facility] [address] Telecom: Name: Fransisco Soria MD Position: [facility] Physician - Primary Care Member Role: PCP Address: [address] [place] [address]- Telecom: Name: Charli Nassar RN Position: [facility] RN Member Role: Primary Care Nurse Name: Beverly Roach RN Position: [facility] Russell RN Member Role: Primary Care Nurse Name: Naida Nobles RN Position: [facility] RN Member Role: Primary Care Nurse Name: Miles Espinoza RN Position: [facility] RN Member Role: Primary Care Nurse Name: Wagner Cabrera RN Position: [facility] RN Member Role: Primary Care Nurse Name: Wagner Elizabeth RN Position: [facility] RN Member Role: Primary Care Nurse Care Team Related Persons Name: DUYEN RAMIREZ Name: LORENZA GANDHI Name: KARLENE ROBERSON Insurance Providers Guarantor name: JAJA RAMIREZ Health Plan Information #: 1 Payer: [employer] Member Number: [id number] Policy Number: NA Group Number: [id number] Health Plan Information #: 2 Payer: [employer] PPO [employer] Member Number: [id number] Policy Number: NA Group Number: NA
--- OUTSIDE RECORDS SUMMARY | 2024-10-16 01:48 | XMS_ITS | Continuity of Care Document ---
Author Organization [facility] Ronald Wayne lt Address [address] [place] [address]- Care Team Providers Care Generator Switchboard Operator Name Role Phone Estella ROE, Fransisco Palacios Primary Care Physician [place] [facility] [place] 08/27/24 - 09/26/24 [facility] Ernesto Sweeny Adult [address] [place] [address]- Attending Physician: Admtr, Darius Encounter Type: Triage Allergies, Adverse Reactions, Alerts [...] 06/30/11 Give n pneumococcal 20-valent conjugate vaccine 7/18/23 Given pneumococcal 20-valent conjugate vaccine 05/01/23 Given [id number] 12y+ bivalent booster vax 08/11/22 Recorded SARS-CoV-2 mRNA (zywedlx-tjbh-bolup) vax 04/04/22 Recorded SARS-CoV-2 (COVID-19) mRNA BNT-162b2 [...] (oldterm) 08/18/07 Give n 1Result Comment: [08/04/2017] [facility] [id number] 2Result Comment: [07/02/2015] GIVEN AT [facility] 3Result Comment: [facility]-[id number] 4Result Comment: [10/18/2018] PT has A NEW BABY ON THE WAY. 5Result Comment: [08/04/2017] [facility] [id number] Medications Constulose 10 gm/15 ml oral syrup [...] 7:39:00 PM EST, Route to Pharmacy Electronically, [facility], Partial fill upon [...] 3 Refills, Maintenance, 11/17/23 11:17:00 AM EST, [facility], Partial fill upon [...] 10:02:00 AM EDT, Route to Pharmacy Electronically, [facility], Partial fill upon [...] 2:49:00 PM EST, Route to Pharmacy Electronically, [facility], Partial fill upon [...] 6sees psychiatry and therapy [facility]; airam michael and sophia maria psyche 7in IOP,suicidal attempt 8EGD 2023 9had EGD 10EGD 2023 11prostate cancer father, two uncles,cousin 12labs wnl 13pos mammogram 14EGD 2023 15advised pre diabetic,increased risk diabetes 16EGD 2023 17EGD 2023 18selsun 19counsel [id number] Procedures Procedure Date Related Diagnosis Body Site Status Upper GI (gastrointestinal) endoscopy 08/08/24 Completed Colonoscopycecal polyp/recta l avm await pathology no active bleed 03/03/22 Completed Reference laboratory 1 03/03/22 Co mpleted Abdominal paracentesis 12/07/21 Co mpleted Reference laboratory 2 12/07/[address] of brain nil acute 12/06/21 Com pleted Abdominal paracentesis- 5L a scites removed 10/26/[address] angiography of thorax mil d aciotes/cirrhosis no pe 06/26/21 Complete d Electrocardiogram qtc 521 3 06/26/21 Completed Reference laboratory ER [place] 4 06/26/21 Completed Computed tomography, abdomen and pelvis; with contrast material(s) 5 12/29/16 Completed Radiologic examination, spin e, lumbosacral; complete, including bending views 6 08/23/10 Completed MRI of brain 7 09/28/08 Completed 1Discharge summary [facility] date admitted 518 date of discharge 03/03/2022 admitted diagnosis GI bleeding and ascites rectal bleeding on admission colonoscopy shows more rectal bleeding showed a polyp in the cecum that was removed multiple telangiectasias and AVMs without any active bleeding he also on a therapeutic paracentesis with removal of 1.7 L of clear fluid left AGAINST MEDICAL ADVICE and was normotensive afebrile White count 8.1 hemoglobin 8.0 platelet count 230,000 sodium 138 potassium 3.9 chloride 109 bicarb 24 BUN 6 creatinine 0.78 magnesium 2 total bili 2.1 direct 1.1bilirubin AST ALT are normal alk phos 224 total protein low 6.3 albumin low at 2.6 2February 2021 inpatient labs [place] sodium 130 potassium 4 chloride 105 bicarb 20 BUN 18 creatinine 1.13 random glucose 128 calcium low 8.1 white count 12.8 hemoglobin 8.3 platelet count 190 2K on 223 sodium 131 potassium 4.2 chloride 106 bicarb 19 anion gap 10 BUN 16 creatinine 1.22 fasting glucose question 157 calcium 8.3 total bili 3 AST 24 ALT 10 alk phos 250 ammonia 45 total protein 6.9albumin 3.2 low 3sinus normal pr qtc 512 4Result June 26 emergency room [place] White count 8.4 hemoglobin 1.9 platelet count 101K low sodium 140 potassium 4 chloride 106 bicarb 26 BUN 5 creatinine 0.88 random glucose 93 calcium 8.9 magnesium 2.1 total bili elevated to direct bili elevated 1.1 AST 45 ALT 12 alkaline phosphatase 281 high albumin 3.4 low troponin high-sensitivity negative BNP 448 slightly high INR 1.2 slightly high 5Unremarkable kidneys, ureters and bladder. Ascites. Splenomegaly 6nad 7neg MRA Social History Social History Type Response Tobacco Other: quit Oct 2019 . Sex Sex Representation Male (finding) Hospital Consult note * Event Display: Inpatient Consult Note, Non-BH Authored Date: * Event Display: Inpatient Consult Note, Non-BH Authored Date: * Event Display: Inpatient Consult Note, Non-BH Authored Date: Cardiology * Aissaotu Del Rio: PERFORM Event Display: Cardiovascular Results Scanned Authored Date: Laboratory * Event Display: Non BH Lab Results Authored Date: * Event Display: Non BH Lab Results Authored Date: * Baetriz Gonzalez: PERFORM Event Display: Laboratory Results Scanned Authored Date: Cardiology Outpatient Note * Aissatou Del Rio: PERFORM Event Display: Cardiology Note Office Authored Date: Radiology * Event Display: CT Scan Abdomen, Non- BH Authored Date: * Event Display: X-Ray Miscellaneous, Non- BH Authored Date: * Event Display: [place] Nuclear Medicine, Non-BH Authored Date: * Event Display: IR Special Procedures, Non-BH Authored Date: * Event Display: IR Special Procedures, Non-BH Authored Date: * Event Display: X-Ray Chest, Non- BH Authored Date: * Event Display: X-Ray Chest, Non- BH Authored Date: * Beverly Ryees: PERFORM Event Display: Radiology Results Scanned Authored Date: Note * Chelsea Thomas RN: PERFORM, SIGN, VERIFY Milvia Alcaraz NP: SIGN Event Display: Case Management Discharge Plan Authored Date: Patient: JAJA RAMIREZ Age: 58 years Sex: Male : 1965 Associated Diagnoses: None Author: Chelsea Thomas RN Care Management Discharge Call Note Admit date 02/29/2024 Discharge date 03/01/2024 Date of contact 03/01/2024 Diagnosis GI bleed If patient went for emergency services was this patient referred? Addendum by Chelsea Thomas RN on March 05, 2024 09:53:42 EDT Called. No Answer. LVMTCB. This nurse is off on . not set up. Called box is full today. Addendum by Chelsea Thomas RN on March 04, 2024 16:10:48 EDT LVMTCB Addendum by Scarlett Herrera on March 04, 2024 08:52:18 EDT lmom for pt to call back and schedule Addendum by Chelsea Thomas RN on March 01, 2024 14:47:11 EDT From: Chelsea Thomas RN To: Scarlett Herrera; Estella ROE, Fransisco Alcaraz NP, Milvia Skinner; Sent: 03/01/2024 14:47:11 EDT Subject: FW: IPF Caller Name: JAJA RAMIREZ; Caller Number: H , C Addendum by Chelsea Thomas RN on March 01, 2024 14:46:59 EDT Called. NO Answer. LVMTCB. Per D/C notes scanned din cis needs IPF in 1 wk. Nothing available with or CARLOS Pantoja please assist in finding a visit. Thank you. Addendum by Chelsea Thomas RN on March 01, 2024 14:36:47 EDT From: hCelsea Thomas RN ([facility] - Clinical) To: Chelsea Thomas RN; Sent: 03/01/2024 14:36:47 EDT Subject: FW: IPF Caller Name: JAJA RAMIREZ; Caller Number: H , C Addendum by Katya Browne on March 01, 2024 13:51:15 EDT From: Katya Browne To: [facility] - Clinical; Sent: 03/01/2024 13:51:15 EDT Subject: IPF Caller Name: JAJA RAMIREZ; Caller Number: H , C to practice for JOHNNIE outreach. Thank you/AR From: Milvia Alcaraz NP To: Katya Browne; Sent: 03/01/2024 11:27:51 EDT Subject: General Message Caller Name: JAJA RAMIREZ; Caller Number: H , C IPF with Dr. Soria. GI bleed Patient Care team information Care Team Personnel Name: Jl Apple MD Position: [facility] Physician - Gastroenterology Member Role: Lifetime Consulting Physician Address: [address] [place] [address], [address] [facility] [place] [address]- Telecom: Name: Fransisco Soria MD Position: [facility] Physician - Primary Care Member Role: PCP Address: [address] [place] [address]- Telecom: Name: Charli Nassar RN Position: [facility] RN Member Role: Primary Care Nurse Name: Beverly Roach RN Position: [facility] Rad RN Member Role: Primary Care Nurse Name: Naida Nobles RN Position: S RN Member Role: Primary Care Nurse Name: Miles Espinoza RN Position: S RN Member Role: Primary Care Nurse Name: Wagner Cabrera RN Position: S RN Member Role: Primary Care Nurse Name: Wagner Elizabeth RN Position: S RN Member Role: Primary Care Nurse Care Team Related Persons Name: DUYEN RAMIREZ Name: AISSATOU GANDHI Name: KARLENE ROBERSON Insurance Providers Guarantor name: JAJA RAMIREZ Health Plan Information #: 1 Payer: [employer] Member Number: NA Policy Number: NA Group Number: NA
--- OUTSIDE RECORDS SUMMARY | 2024-10-16 01:48 | XMS_ITS | Continuity of Care Document ---
Author Organization [facility] Wayne lt Address [address] [place] [address]- Care Team Providers Care Investigator Claims Name Role Phone Estella ROE, Fransisco Palacios Primary Care Physician Encounter [facility] [place] Date(s): 08/19/24 - 09/18/24 [facility] Adult [address] [place] [address]- Encounter Type: Triage Allergies, Adverse Reactions, Alerts [...] Given pneumococcal 20-valent conjugate vaccine 05/01/23 Given [id number] 12y+ bivalent booster vax 08/11/22 Recorded SARS-CoV-2 mRNA (wreznpe-dltq-hedci) vax 04/04/22 Recorded SARS-CoV-2 (COVID-19) mRNA BNT-162b2 [...] (oldterm) 08/18/07 Give n 1Result Comment: [08/04/2017] [facility] [id number] 2Result Comment: [07/02/2015] GIVEN AT [facility] 3Result Comment: [facility]-[id number] 4Result Comment: [10/18/2018] PT has A NEW BABY ON THE WAY. 5Result Comment: [08/04/2017] [facility] [id number] Medications Constulose 10 gm/15 ml oral syrup [...] 7:39:00 PM EST, Route to Pharmacy Electronically, [facility], Partial fill upon patient [...] 3 Refills, Maintenance, 11/17/23 11:17:00 AM EST, [facility], Partial fill upon patient [...] 10:02:00 AM EDT, Route to Pharmacy Electronically, [facility], Partial fill upon patient [...] 2:49:00 PM EST, Route to Pharmacy Electronically, [facility], Partial fill upon patient [...] diabetes 16EGD 2023 17EGD 2023 18selsun 19counsel [id number] Social History Social History Type Response Tobacco Other: quit Oct 2019 . Sex Sex Representation Male (finding) Note * Chelsea Thomas RN: PERFORM, SIGN, VERIFY, MODIFY Chelsea Thomas RN: MODIFY, SIGN Chelsea Thomas RN: SIGN Estella ROE, Fransisco Palacios: SIGN Event Display: Case Management Discharge Plan Authored Date: Patient: JAJA RAMIREZ Age: 59 years Sex: Male : 1965 Associated Diagnoses: None Author: William MARCOS, Chelsea Care Management Discharge Call Note Admit date 08/12/2024 Discharge date 08/19/2024 Date of contact 08/19/2024 Diagnosis Swollen Genitals If patient went for emergency services was this patient referred? Referred by went via EMS to ED TCM Call #1. NO Answer. VM box full. Reached pt on 2nd TCM call on 08/20 Discharge instructions were reviewed with the patient? Yes Medication reconciliation performed Yes Looks like you were recently discharged from the hospital (ED), how are you feeling? feeling well Please tell me the problem or condition that brought you to the hospital (ED)? hematuria dysuria Do you know what to do in case of an emergency? yes Do you understand how to take your medication? Yes Do you have an appointment already scheduled with your PCP? Yes Is date appropriate: Yes. Are you able to get to that appointment: Yes. Appointment scheduled? Date 08/27/2024 Home Care Services requested? No Have there been any changes in your condition since discharge? No Do you have someone at home that is able to help you? Yes Is there anything else that you need addressed before your follow up appointment? No Patient Care team information Care Team Personnel Name: Jl Apple MD Position: [facility] Physician - Gastroenterology Member Role: Lifetime Consulting Physician Address: [address] [place] [address], [address] [facility] [place] [address]- Telecom: Name: Fransisco Soria MD Position: [facility] Physician - Primary Care Member Role: PCP Address: [address] [place] [address]- Telecom: Name: Charli Nassar RN Position: [facility] RN Member Role: Primary Care Nurse Name: Beverly Roach RN Position: [facility] Russell RN Member Role: Primary Care Nurse [...] ROBERSON Insurance Providers Guarantor name: JAJA RAMIREZ [facility] Plan Information #: 1 Payer: [employer] Member Number: NA Policy Number: NA Group Number: NA
--- OUTSIDE RECORDS SUMMARY | 2024-10-16 01:48 | XMS_ITS | Continuity of Care Document ---
Author Organization [facility] Wayne lt Address [address] [place] [address]- Care Team Providers Care Slater Apprentice Name Role Phone Estella ROE, Fransisco Palacios Primary Care Physician Encounter [facility] [place] Date(s): 09/11/24 - 10/11/24 [facility] Adult [address] [place] [address]- Encounter Type: Triage Allergies, Adverse Reactions, Alerts [...] Given pneumococcal 20-valent conjugate vaccine 05/01/23 Given [id number] 12y+ bivalent booster vax 08/11/22 Recorded SARS-CoV-2 mRNA (ebmlpwd-myns-orapj) vax 04/04/22 Recorded SARS-CoV-2 (COVID-19) mRNA BNT-162b2 [...] (oldterm) 08/18/07 Give n 1Result Comment: [08/04/2017] [facility] [id number] 2Result Comment: [07/02/2015] GIVEN AT [facility] 3Result Comment: [facility]-[id number] 4Result Comment: [10/18/2018] PT has A NEW BABY ON THE WAY. 5Result Comment: [08/04/2017] [facility] [id number] Medications Constulose 10 gm/15 ml oral syrup [...] 7:39:00 PM EST, Route to Pharmacy Electronically, [facility], Partial fill upon patient [...] 3 Refills, Maintenance, 11/17/23 11:17:00 AM EST, [facility], Partial fill upon patient [...] 10:02:00 AM EDT, Route to Pharmacy Electronically, [facility], Partial fill upon patient [...] 2:49:00 PM EST, Route to Pharmacy Electronically, [facility], Partial fill upon patient [...] diabetes 16EGD 2023 17EGD 2023 18selsun 19counsel [id number] Social History Social History Type Response Tobacco Other: quit Oct 2019 . Sex Sex Representation Male (finding) Patient Care team information Care Team Personnel Name: Jl Apple MD Position: [facility] Physician - Gastroenterology Member Role: Lifetime Consulting Physician Address: [address], [address] [facility] [place] [address]- Telecom: Name: Fransisco Soria MD Position: [facility] Physician - Primary Care Member Role: PCP Address: [address] [place] [address]- Telecom: Name: Charli Nassar RN Position: S RN Member Role: Primary Care Nurse Name: Beverly Roach RN Position: [facility] Russell RN Member Role: Primary Care Nurse Name: Naida Nobles RN Position: S RN Member Role: Primary Care Nurse Name: Miles Espinoza RN Position: S RN Member Role: Primary Care Nurse Name: Wagner Cabrera RN Position: S RN Member Role: Primary Care Nurse Name: Wagner Elizabeth RN Position: [facility] RN Member Role: Primary Care Nurse Care Team Related Persons Name: DUYEN RAMIREZ Name: LORENZA GANDHI Name: KARLENE ROBERSON Insurance Providers Guarantor name: JAJA RAMIREZ Health Plan Information #: 1 Payer: [employer] Member Number: NA Policy Number: NA Group Number: NA
--- OUTSIDE RECORDS SUMMARY | 2024-10-16 01:49 | XMS_ITS ---
Author Name [facility] Organization Unknown Results Test Name/Text Value Interpretation Date Range Source POC Glucose 96mg/dL Normal [id number] 65 - 99 [facility] Phosphate SerPl-mCnc 2.7mg/dL Normal [id number] 2.4 - 5.1 H[facility] Magnesium SerPl-mCnc 1.8mg/dL Normal [id number] 1.6 - 2.6 H[facility]CT Calcium SerPl-mCnc 7.6mg/dL Below low normal [id number] 8 .7 - 10.5 H[facility]CT BUN SerPl-mCnc 13mg/dL Normal [id number] 9 - 23 HH CCT Creat SerPl-mCnc 1mg/dL Normal [id number] 0.7 - 1.3 HHCCT GFR/BSA.pred SerPlBld WIO-UGO-HcBOuo 87 Normal [id number] 59 - HHCCT Chloride SerPl-sCnc 109mmol/L Above high normal [id number] 98 - 107 H[facility]CT BUN/Creat SerPl 13Ratio Normal [id number] 10 - 25 H HCCT CO2 SerPl-sCnc 26mmol/L Normal [id number] 20 - 31 HH CCT Anion Gap Bld-sCnc 6 Normal [id number] 5 - 15 H[facility]CT Potassium SerPl-sCnc 3.1mmol/L Below low normal [id number] 3.4 - 4.5 H[facility] Glucose SerPl-mCnc 94mg/dL Normal [id number] 74 - 106 H[facility]CT Sodium SerPl-sCnc 140mmol/L Normal [id number] 136 - 145 H[facility]CT RBC num Bld Auto 2.9Mil/uL Below low normal [id number] 4.5 - 6.2 H[facility]CT RDW RBC Auto-Rto 18.3% Above high normal [id number] 11.5 - 14.5 HHCCT PMV Bld Auto 10.8fL Normal [id number] 7.5 - 12.[address] MCH RBC Qn Auto 30pg Normal [id number] 27 - 31 H HCCT WBC num Bld Auto 6.1Thou/uL Normal [id number] 4 - 11 [facility] Platelet num Bld Auto 133Thou/uL Below low normal [id number] 150 - 450 H[facility]CT MCHC RBC Auto-mCnc 31.9g/dL Normal [id number] 30 - 36 HHCCT Hct VFr Bld Auto 27.3% Below low normal [id number] 39 - 54 HHCCT MCV RBC Auto 94fL Normal [id number] 80 - 100 HHCC T Hgb Bld-mCnc 8.7g/dL Below low normal [id number] 13 - 17 .7 HHCCT POC Glucose 92mg/dL Normal 65 - 99 H[facility]CT POC Glucose 105mg/dL Above high normal [id number] 65 - 99 HHCCT POC Glucose 111mg/dL Above high normal [id number] 65 - 99 HHCCT RBC num Bld Auto 2.95Mil/uL Below low normal [id number] 4. 5 - 6.2 HHCCT RDW RBC Auto-Rto 18.2% Above high normal [id number] 11.5 - 14.5 HHCCT PMV Bld Auto 10.6fL Normal [id number] 7.5 - 12.[address] MCH RBC Qn Auto 30.2pg Normal [id number] 27 - 31 H HCCT WBC num Bld Auto 5.7Thou/uL Normal [id number] 4 - 11 [facility] Platelet num Bld Auto 126Thou/uL Below low normal [id number] 150 - 450 H[facility]CT MCHC RBC Auto-mCnc 32.2g/dL Normal [id number] 30 - 36 HHCCT Hct VFr Bld Auto 27.6% Below low normal [id number] 39 - 54 HHCCT MCV RBC Auto 94fL Normal [id number] 80 - 100 HHCC T Hgb Bld-mCnc 8.9g/dL Below low normal [id number] 13 - 17 .7 HHCCT POC Glucose 96mg/dL Normal 65 - 99 HHCCT Phosphate SerPl-mCnc 2.5mg/dL Normal [id number] 2.4 - 5.1 HHCCT RBC num Bld Auto 3.15Mil/uL Below low normal [id number] 4. 5 - 6.2 HHCCT RDW RBC Auto-Rto 18.3% Above high normal [id number] 11.5 - 14.5 HHCCT PMV Bld Auto 11.1fL Normal [id number] 7.5 - 12.[address] MCH RBC Qn Auto 30.5pg Normal [id number] 27 - 31 H HCCT WBC num Bld Auto 5.9Thou/uL Normal [id number] 4 - 11 [facility]CT Platelet num Bld Auto 140Thou/uL Below low normal [id number] 150 - 450 HHCCT MCHC RBC Auto-mCnc 32.5g/dL Normal [id number] 30 - 36 HHCCT Hct VFr Bld Auto 29.5% Below low normal [id number] 39 - 54 HHCCT MCV RBC Auto 94fL Normal [id number] 80 - 100 HHCC T Hgb Bld-mCnc 9.6g/dL Below low normal [id number] 13 - 17 .7 HHCCT POC Glucose 109mg/dL Above high normal [id number] 65 - 99 HHCCT POC Glucose 111mg/dL Above high normal [id number] 65 - 99 HHCCT Calcium SerPl-mCnc 7.5mg/dL Below low normal [id number] 8 .7 - 10.5 HHCCT BUN SerPl-mCnc 15mg/dL Normal [id number] 9 - 23 HH CCT Creat SerPl-mCnc 1mg/dL Normal [id number] 0.7 - 1.3 HHCCT GFR/BSA.pred SerPlBld TGE-LAR-HlFSai 87 Normal [id number] 59 - HHCCT Chloride SerPl-sCnc 112mmol/L Above high normal [id number] 98 - 107 HHCCT BUN/Creat SerPl 15Ratio Normal [id number] 10 - 25 H HCCT CO2 SerPl-sCnc 24mmol/L Normal [id number] 20 - 31 HH CCT Anion Gap Bld-sCnc 8 Normal [id number] 5 - 15 HHCCT Potassium SerPl-sCnc 3.3mmol/L Below low normal [id number] 3.4 - 4.5 HHCCT Glucose SerPl-mCnc 101mg/dL Normal [id number] 74 - 106 HHCCT Sodium SerPl-sCnc 144mmol/L Normal [id number] 136 - 145 HHCCT RBC num Bld Auto 2.88Mil/uL Below low normal [id number] 4. 5 - 6.2 HHCCT RDW RBC Auto-Rto 18% Above high normal [id number] 11.5 - 14.5 HHCCT PMV Bld Auto 10.5fL Normal [id number] 7.5 - 12.[address] MCH RBC Qn Auto 29.2pg Normal [id number] 27 - 31 H HCCT WBC num Bld Auto 5.7Thou/uL Normal [id number] 4 - 11 HHCCT Platelet num Bld Auto 128Thou/uL Below low normal [id number] 150 - 450 HHCCT MCHC RBC Auto-mCnc 30.8g/dL Normal [id number] 30 - 36 HHCCT Hct VFr Bld Auto 27.3% Below low normal [id number] 39 - 54 HHCCT MCV RBC Auto 95fL Normal [id number] 80 - 100 HHCC T Hgb Bld-mCnc 8.4g/dL Below low normal [id number] 13 - 17 .7 HHCCT RBC num Bld Auto 2.37Mil/uL Below low normal [id number] 4. 5 - 6.2 HHCCT RDW RBC Auto-Rto 17.7% Above high normal [id number] 11.5 - 14.5 HHCCT PMV Bld Auto 10.7fL Normal [id number] 7.5 - 12.[address] MCH RBC Qn Auto 30.8pg Normal [id number] 27 - 31 H HCCT WBC num Bld Auto 5.5Thou/uL Normal [id number] 4 - 11 HHCCT Platelet num Bld Auto 125Thou/uL Below low normal [id number] 150 - 450 HHCCT MCHC RBC Auto-mCnc 32.6g/dL Normal [id number] 30 - 36 HHCCT Hct VFr Bld Auto 22.4% Below low normal [id number] 39 - 54 HHCCT MCV RBC Auto 95fL Normal [id number] 80 - 100 HHCC T Hgb Bld-mCnc 7.3g/dL Below low normal [id number] 13 - 17 .7 HHCCT Potassium SerPl-sCnc 3.9mmol/L Normal [id number] 3.4 - 4.5 HHCCT RBC num Bld Auto 2.54Mil/uL Below low normal [id number] 4. 5 - 6.2 HHCCT RDW RBC Auto-Rto 17.6% Above high normal [id number] 11.5 - 14.5 HHCCT PMV Bld Auto 10.6fL Normal [id number] 7.5 - 12.[address] MCH RBC Qn Auto 30.7pg Normal [id number] 27 - 31 H HCCT WBC num Bld Auto 6.7Thou/uL Normal [id number] 4 - 11 HHCCT Platelet num Bld Auto 129Thou/uL Below low normal [id number] 150 - 450 HHCCT MCHC RBC Auto-mCnc 32.6g/dL Normal [id number] 30 - 36 HHCCT Hct VFr Bld Auto 23.9% Below low normal [id number] 39 - 54 HHCCT MCV RBC Auto 94fL Normal 80 - 100 HHCC T Hgb Bld-mCnc 7.8g/dL Below low normal [id number] 13 - 17 .7 HHCCT RBC num Bld Auto 2.49Mil/uL Below low normal [id number] 4. 5 - 6.2 HHCCT RDW RBC Auto-Rto 17.5% Above high normal [id number] 11.5 - 14.5 HHCCT PMV Bld Auto 10.5fL Normal [id number] 7.5 - 12.[address] MCH RBC Qn Auto 30.1pg Normal [id number] 27 - 31 H HCCT WBC num Bld Auto 6.9Thou/uL Normal [id number] 4 - 11 HHCCT Platelet num Bld Auto 140Thou/uL Below low normal [id number] 150 - 450 HHCCT MCHC RBC Auto-mCnc 31.8g/dL Normal [id number] 30 - 36 HHCCT Hct VFr Bld Auto 23.6% Below low normal [id number] 39 - 54 HHCCT MCV RBC Auto 95fL Normal [id number] 80 - 100 HHCC T Hgb Bld-mCnc 7.5g/dL Below low normal [id number] 13 - 17 .7 HHCCT Magnesium SerPl-mCnc 1.8mg/dL Normal [id number] 1.6 - 2.6 HHCCT Phosphate SerPl-mCnc 2mg/dL Below low normal [id number] 2.4 - 5.1 HHCCT Bilirub SerPl-mCnc 4.6mg/dL Above high normal [id number] 0.3 - 1.2 HHCCT AST SerPl-cCnc 17U/L Normal [id number] - 34 HH CCT ALT SerPl-cCnc 7U/L Below low normal [id number] 10 - 49 HHCCT Creat SerPl-mCnc 0.9mg/dL Normal [id number] 0.7 - 1.3 HHCCT Globulin Ser Calc-mCnc 2.4g/dL Normal [id number] 1.5 - 3.9 HHCCT CO2 SerPl-sCnc 23mmol/L Normal [id number] 20 - 31 HH CCT Albumin/Glob SerPl 1.2Ratio Below low normal [id number] 1 .5 - 2.5 HHCCT Anion Gap Bld-sCnc 9 Normal [id number] 5 - 15 HHCCT Potassium SerPl-sCnc 3.4mmol/L Normal [id number] 3.4 - 4.5 HHCCT Calcium SerPl-mCnc 7.3mg/dL Below low normal [id number] 8 .7 - 10.5 HHCCT BUN SerPl-mCnc 19mg/dL Normal [id number] 9 - 23 HH CCT ALP SerPl-cCnc 77U/L Normal [id number] 45 - 128 HH CCT GFR/BSA.pred SerPlBld GDG-HKJ-IxTVql 90 Normal [id number] 59 - HHCCT Chloride SerPl-sCnc 113mmol/L Above high normal [id number] 98 - 107 HHCCT BUN/Creat SerPl 21Ratio Normal [id number] 10 - 25 H HCCT Albumin SerPl-mCnc 2.9g/dL Below low normal [id number] 3 .4 - 4.8 HHCCT Prot SerPl-mCnc 5.3g/dL Below low normal [id number] 5.7 - 8.2 HHCCT Glucose SerPl-mCnc 98mg/dL Normal [id number] 74 - 106 HHCCT Sodium SerPl-sCnc 145mmol/L Normal [id number] 136 - 145 HHCCT RBC num Bld Auto 2.54Mil/uL Below low normal [id number] 4. 5 - 6.2 HHCCT RDW RBC Auto-Rto 17.6% Above high normal [id number] 11.5 - 14.5 HHCCT PMV Bld Auto 10.5fL Normal [id number] 7.5 - 12.[address] MCH RBC Qn Auto 30.3pg Normal [id number] 27 - 31 H HCCT WBC num Bld Auto 7.6Thou/uL Normal [id number] 4 - 11 HHCCT Platelet num Bld Auto 138Thou/uL Below low normal [id number] 150 - 450 HHCCT MCHC RBC Auto-mCnc 32.5g/dL Normal [id number] 30 - 36 HHCCT Hct VFr Bld Auto 23.7% Below low normal [id number] 39 - 54 HHCCT MCV RBC Auto 93fL Normal [id number] 80 - 100 HHCC T Hgb Bld-mCnc 7.7g/dL Below low normal [id number] 13 - 17 .7 HHCCT RBC num Bld Auto 2.69Mil/uL Below low normal [id number] 4. 5 - 6.2 HHCCT RDW RBC Auto-Rto 17.4% Above high normal [id number] 11.5 - 14.5 HHCCT PMV Bld Auto 10.5fL Normal [id number] 7.5 - 12.[address] MCH RBC Qn Auto 30.1pg Normal [id number] 27 - 31 H HCCT WBC num Bld Auto 9.3Thou/uL Normal [id number] 4 - 11 HHCCT Platelet num Bld Auto 157Thou/uL Normal [id number] 150 - 450 HHCCT MCHC RBC Auto-mCnc 32.3g/dL Normal [id number] 30 - 36 HHCCT Hct VFr Bld Auto 25.1% Below low normal [id number] 39 - 54 HHCCT MCV RBC Auto 93fL Normal [id number] 80 - 100 HHCC T Hgb Bld-mCnc 8.1g/dL Below low normal [id number] 13 - 17 .7 HHCCT Ammonia Plas-sCnc 32umol/L Normal [id number] 11 - 32 HHCCT Phosphate SerPl-mCnc 2mg/dL Below low normal [id number] 2.4 - 5.1 HHCCT AST SerPl-cCnc 18U/L Normal [id number] - 34 HH CCT ALT SerPl-cCnc 7U/L Below low normal [id number] 10 - 49 HHCCT Creat SerPl-mCnc 1.1mg/dL Normal 0.7 - 1.3 HHCCT Globulin Ser Calc-mCnc 2.5g/dL Normal 1.5 - 3.9 HHCCT CO2 SerPl-sCnc 24mmol/L Normal 20 - 31 HH CCT Albumin/Glob SerPl 1.3Ratio Below low normal [id number] 1 .5 - 2.5 HHCCT Anion Gap Bld-sCnc 8 Normal [id number] 5 - 15 HHCCT Potassium SerPl-sCnc 3.5mmol/L Normal 3.4 - 4.5 HHCCT Bilirub SerPl-mCnc 8.7mg/dL Above high normal 0.3 - 1.2 HHCCT Calcium SerPl-mCnc 7.6mg/dL Below low normal 8 .7 - 10.5 HHCCT BUN SerPl-mCnc 23mg/dL Normal 9 - 23 HH CCT ALP SerPl-cCnc 81U/L Normal [id number] 45 - 128 HH CCT GFR/BSA.pred SerPlBld JUN-RGD-VkQCnq 78 Normal 59 - HHCCT Chloride SerPl-sCnc 114mmol/L Above high normal 98 - 107 HHCCT BUN/Creat SerPl 21Ratio Normal 10 - 25 H HCCT Albumin SerPl-mCnc 3.3g/dL Below low normal 3 .4 - 4.8 HHCCT Prot SerPl-mCnc 5.8g/dL Normal 5.7 - 8.2 H HCCT Glucose SerPl-mCnc 117mg/dL Above high normal 74 - 106 HHCCT Sodium SerPl-sCnc 146mmol/L Above high normal 1 36 - 145 HHCCT Magnesium SerPl-mCnc 1.9mg/dL Normal 1.6 - 2.6 HHCCT INR PPP 1.4 Normal HHCCT Prothrombin time 16.2seconds Above high normal 10 - 13.5 HHCCT aPTT PPP 41seconds Above high normal 26 - 37 HHCCT COMMENT RIGHT RADIAL POSITIVE COLLATERAL Normal - HHCCT Potassium, POC 3.3mmol/L Below low normal 3.5 - 5.1 HHCCT Comment RIGHT RADIAL POSITIVE COLLATERAL Normal HHCCT Hemoglobin, POC 8.4g/dL Below low normal 1 2.6 - 17.4 HHCCT COMMENT RIGHT RADIAL POSITIVE COLLATERAL Normal - HHCCT Sodium, POC 140mmol/L Normal 136 - 145 HHCCT Comment, Blood Gas RIGHT RADIAL POSITIVE COLLATERAL Normal HHCCT pCO2, Arterial 30mmHG Below low normal 35 - 45 HHCCT Base Deficit (-) 0.8mmol/L Normal HHCCT pH, Arterial 7.48 Above high normal 7.3 5 - 7.45 HHCCT pO2, Arterial 89mmHG Normal 80 - [address] Sample Type, POC Normal HHCCT SaO2 % BldA 98% Normal 95 - 100 HHCCT HCO3 22mmol/L Normal 22 - 26 HHCCT ISTAT Arterial FIO2 21 Normal HHCCT Comment RIGHT RADIAL POSITIVE COLLATERAL Normal HHCCT Hematocrit, POC 25% Below low normal 40 - 50 HHCCT Neutrophils num Bld Auto 6.65Thou/uL Normal [id number] 2 - 7.5 HHCCT Monocytes num Bld Auto 0.69Thou/uL Normal [id number] 0.2 - 1.5 HHCCT Eosinophil num Bld Auto 0.13Thou/uL Normal [id number] 0 - 0.7 HHCCT WBC num Bld Auto 9.7Thou/uL Normal [id number] 4 - 11 HHCCT MCHC RBC Auto-mCnc 31.8g/dL Normal [id number] 30 - 36 HHCCT Monocytes/leuk NFr Bld Auto 7.2% Normal [id number] HHCCT Hct VFr Bld Auto 27.7% Below low normal [id number] 39 - 54 HHCCT RBC num Bld Auto 2.95Mil/uL Below low normal [id number] 4. 5 - 6.2 HHCCT RDW RBC Auto-Rto 17.4% Above high normal [id number] 11.5 - 14.5 HHCCT PMV Bld Auto 10.8fL Normal 7.5 - 12.[address] Eosinophil/leuk NFr Bld Auto 1.3% Normal HHCCT MCH RBC Qn Auto 29.8pg Normal 27 - 31 H HCCT Basophils/leuk NFr Bld Auto 1.5% Normal HHCCT Basophils num Bld Auto 0.14Thou/uL Normal 0 - 0.2 HHCCT Platelet num Bld Auto 150Thou/uL Normal 150 - 450 HHCCT Neutrophils/leuk NFr Bld Auto 68.9% Normal HHCCT MCV RBC Auto 94fL Normal [id number] 80 - 100 HH T Lymphocytes/leuk NFr Bld Auto 20% Normal [id number] HHCCT Lymphocytes num Bld Auto 1.93Thou/uL Normal 1.5 - 4.5 HHCCT Imm Granulocytes/leuk NFr Bld Auto 1.1% Normal HHCCT Hgb Bld-mCnc 8.8g/dL Below low normal 13 - 17 .7 HHCCT Imm Granulocytes num Bld Auto 0.11Thou/uL Above high normal [id number] 0 - 0.1 HHCCT Anticoagulant SUBCUTANEOUS UNFRACTIONATED HEPARIN Normal [id number] HHCCT Anticoagulant HEPARIN, LOW MOLECULAR WEIGHT Normal [id number] HHCCT
--- OUTSIDE RECORDS SUMMARY | 2024-10-16 01:49 | XMS_ITS | Patient Health Record ---
Author Organization [facility] Address [address] [place] [address] Care Team Providers Care Plastic Roller Name Role Phone Monserrat ROE, Arben Primary Care Provider Unava Kash Renteria Jr Unavailable REASON FOR REFERRAL No Information SOCIAL HISTORY Sex Assigned At : Social History Observation Description Sex Assigned At Unknown PROBLEMS Problem Type ICD Code Onset Dates Problem Status W/U Status Risk SNOMED Code Notes Problem Alcoholic cirrhosis of liver with ascites (K70.31) Active confirmed Alcoholic cirrhosis (152283877) PLAN OF TREATMENT No Information Insurance Providers Payer Name Payer Address Payer Phone Subscriber Number Group Number Insured Name Patient Relationship to Insured Coverage Start Date Coverage End Date [employer] Medicare Advantage Plan [address] [address] [place] [address] [id number] JAJA RAMIREZ Self - patient is the insured
--- OUTSIDE RECORDS SUMMARY | 2024-10-16 01:49 | XMS_ITS | Continuity of Care Document ---
Author Organization [facility] Address [address] [place] [address] [facility] [place] Name Relationship Address Phone LORENZA GANDHI unrelated friend Unknown Jett baez ASHLEYJAJA VAUGHAN Personal Relationship Unknown Unav ailable KAROL, ETHALEE Other Unknown Unavailable LORENZA YEAGER domestic partner Unknown DUYEN Khanna mother Unknown Unavailable Care Team Providers Care Forms Analysis Manager Name Role Phone Estella ROE, Fransisco Palacios Primary Care Physician Encounter [facility] Date(s): 08/28/24 - 09/27/24 [facility] [address] [place] [address]- Encounter Type: Triage Allergies, Adverse Reactions, Alerts [...] Given pneumococcal 20-valent conjugate vaccine 05/01/23 Given [id number] 12y+ bivalent booster vax 08/11/22 Recorded SARS-CoV-2 mRNA ([id number]) vax 04/04/22 Recorded SARS-CoV-2 (COVID-19) mRNA BNT-162b2 [...] (oldterm) 08/18/07 Give n 1Result Comment: [08/04/2017] [facility] [id number] 2Result Comment: [07/02/2015] GIVEN AT [facility] 3Result Comment: [facility]-[id number] 4Result Comment: [10/18/2018] PT has A NEW BABY ON THE WAY. 5Result Comment: [08/04/2017] [facility] [id number] Medications Constulose 10 gm/15 ml oral syrup [...] 7:39:00 PM EST, Route to Pharmacy Electronically, [facility], Partial fill upon patient request [...] 3 Refills, Maintenance, 11/17/23 11:17:00 AM EST, [facility], Partial fill upon patient request [...] 10:02:00 AM EDT, Route to Pharmacy Electronically, [facility], Partial fill upon patient request [...] 2:49:00 PM EST, Route to Pharmacy Electronically, [facility], Partial fill upon patient request [...] neurosurgery;refer physiatry 5steatohepatitis 6sees psychiatry and therapy katelyn morrissey; airam michael and sophia maria psyche 7in IOP,suicidal attempt 8EGD 2023 9had EGD 10EGD 2023 11prostate cancer father, two uncles,cousin 12labs wnl 13pos mammogram 14EGD 2023 15advised pre diabetic,increased risk diabetes 16EGD 2023 17EGD 2023 18selsun 19counsel [id number] Social History Social History Type Response Tobacco Other: quit Oct 2019 . Sex Sex Representation Male (finding) Patient Care team information Care Team Personnel Name: Jl Apple MD Position: [facility] Physician - Gastroenterology Member Role: Lifetime Consulting Physician Address: [address], [address] [facility] [place] [address]- [place] Telecom: Name: Fransisco Soria MD Position: [facility] Physician - Primary Care Member Role: PCP Address: [address] [place] [address]- Telecom: Name: Charli Nassar RN Position: [facility] RN Member Role: Primary Care Nurse Name: Beverly Roach RN Position: [facility] Russell RN Member Role: Primary Care Nurse Name: Naida Nobles RN Position: [facility] RN Member Role: Primary Care Nurse Name: Miles Espinoza RN Position: [facility] RN Member Role: Primary Care Nurse Name: Wagner Cabrera RN Position: [facility] RN Member Role: Primary Care Nurse Name: Wagner Elizabeth RN Position: [facility] RN Member Role: Primary Care Nurse Care Team Related Persons Name: DUYEN RAMIREZ Name: LORENZA GANDHI Name: KARLENE ROBERSON Insurance Providers Guarantor name: JAJA RAMIREZ Health Plan Information #: 1 Payer: [employer] Member Number: NA Policy Number: NA Group Number: NA
[2024-10-16 02:08] LABS: Troponin-I High Sensitivity < 2.7 ng/L (<3.5-35.0)
[2024-10-16 02:09] LABS: Alanine Aminotransferase < 6 U/L (0-40); Albumin Level 1.9 g/dL (3.5-5.0); Alkaline Phosphatase 196 U/L (39-117); Anion Gap 15 (12-20); Aspartate Amino Transferase 44 U/L (5-37); Bilirubin Total 8.4 mg/dL (0.0-1.0); Blood Urea Nitrogen 6 mg/dL (9-16); Calcium 7.6 mg/dL (8.4-10.2); Carbon Dioxide 28 mmol/L (22-29); Chloride 98 mmol/L (96-108); Creatinine Clr Calc Pharmacy 119.8; Estimated Glomerular Filt Rate > 60; Glucose Random 92 mg/dL (60-115); Lipase 8 U/L (8-78); Potassium 2.7 mmol/L (3.3-5.1); Sodium 138 mmol/L (135-145); Total Protein 6.3 g/dL (6.5-8.0)
[2024-10-16 02:16] LABS: B Type Natriuretic Peptide 140 pg/mL (<100)
--- NOTE | 2024-10-16 02:34 | ED_ITS ---
HPI - Nausea/Vomiting/Diarrhea General Chief complaint: Nausea/Vomiting/Diarrhea Stated complaint: sob 1 week Time Seen by Provider: 10/16/24 02:10 Source: patient Limitations: no limitations History of Present Illness ED Provider: Dr. Tutu Martin HPI Narrative: 59-year-old male with a past medical history significant for prostate cancer with urethral obstruction, hypokalemia, decompensated alcoholic liver cirrhosis with ascites, esophageal varices with recent upper GI bleed, portal hypertensive gastropathy amongst others as documented below who presents to the emergency department for evaluation of nausea, vomiting and constipation. The patient states that he was had constant nausea over the past week in his not been able to eat or drink. States he has been vomiting 5 times a day. The patient states he was also constipated in his not moved his bowels in 2 weeks. Patient states he has had similar symptoms in the past and has required IV hydration and IV antiemetics. He denied fever or chills. He denied abdominal pain. He denied myalgias arthralgias. Related Data Home Medications ?Medication ?Instructions ?Recorded ?Confirmed melatonin 10 mg tablet 10 mg PO BEDTIME Insomnia 11/13/23 08/31/24 mirtazapine 15 mg tablet 15 mg PO BEDTIME 11/13/23 08/31/24 tamsulosin 0.4 mg capsule 0.4 mg PO BEDTIME 07/23/24 08/31/24 furosemide 40 mg tablet 40 mg PO DAILY 08/24/24 08/31/24 omeprazole 40 mg capsule,delayed 40 mg PO DAILY@0630 08/24/24 08/31/24 release Previous Rx's ?Medication ?Instructions ?Recorded lactulose 20 gram/30 mL oral 20 g (30 mL) PO DAILY 90 days 08/25/24 solution #2,700 mL linezolid 600 mg tablet 600 mg PO Q12H #12 tabs 08/25/24 potassium chloride 20 mEq 20 meq PO DAILY #90 tabs 08/25/24 tablet,extended release(part/cryst) sodium bicarbonate 650 mg tablet 650 mg PO TID #270 tabs 08/25/24 sucralfate 1 gram tablet 1 g PO QIDACHS #360 tabs 08/25/24 nystatin 100,000 unit/gram topical 1 appl topical BID #60 grams 09/13/24 powder Allergies Allergy/AdvReac Type Severity Reaction Status Date / Time Fish Containing Products Allergy Severe THROAT Verified 10/16/24 01:32 SWELLING peanut [Peanut] Allergy Severe THROAT Verified 10/16/24 01:32 SWELLING Review of Systems 2 Review of Systems: Yes all other systems are reviewed and are negative [facility] Past Medical History Medical History Urethral obstruction Acute urinary retention Gross hematuria Alcoholic hepatitis Thrombocytopenia Nausea & vomiting Hyponatremia Acute hypokalemia Alcohol dependence Ascites Congestive heart failure Anemia ETOH abuse Alcoholic cirrhosis PTSD (post-traumatic stress disorder) Hyponatremia Acute hyponatremia NATHANIEL (acute kidney injury) Acute metabolic encephalopathy Falls Alcoholic cirrhosis of liver with ascites Prostate cancer Depression Hyperlipidemia Hypertension Anxiety Social History Social History Household Members: Significant Other Household Members Other:: Ethalee [facility] Do you presently have visiting nurse or other home services: Yes ([facility]) Unable to assess alcohol history related to: Refusing to respond Alcohol intake: former Comment: bilateral wrist restraints for airway safety Patient Tobacco Use Status: Current everyday Tobacco user Tobacco use type: Cigarette Cigarette Packs Per Day: 3 Cigarettes Per Day: 3 Years Smoked: 25 e-Cigarette/Vaping Use: Never Used Second Hand Smoke Exposure: No Substance Use Type: Marijuana Advance Directives: Yes Advance Directives on File: Yes Advance Directives Date on File: 04/03/24 Do you have a plan to hurt others: No Plan service: No Current occupational status: disabled Physical Exam 2 Vital Signs: Vital Signs: Last Vital Signs Temp 98.0 F 10/16/24 05:21 Pulse 73 10/16/24 05:21 Resp 17 10/16/24 05:21 BP 103/53 L 10/16/24 05:21 Pulse Ox 95 10/16/24 05:21 O2 Del Method Room Air 10/16/24 05:21 BMI result Body Mass Index 26.5 Vital signs were normal Exam: General: Awake, alert in no distress Head: Normocephalic, atraumatic EENT: PERRL, Lids normal, sclera normal, conjunctiva icteric, nose normal , ears normal, throat without erythema or exudates Neck: Supple, no adenopathy Lung: breath sounds symmetric, no wheezing, rales or rhonchi Chest: symmetric movement, nontender Heart: regular rate and rhythm, normal S1, S2 no murmurs or rubs Abdomen: Abdomen is distended secondary to ascites, soft, nontender, normoactive bowel sounds, Back: no vertebral tenderness, no CVAT Extremities: no deformities, moves all extremities symmetrically Skin: Jaundice Neuro: Awake, alert, oriented, normal speech, cranial nerves intact, moves all extremities symmetrically Psych: Pleasant, cooperative Medications Administered Discontinued Medications Generic Name Dose Route Start Last Admin Trade Name Taz PRN Reason Stop Dose Admin Sodium Chloride 1,000 mls @ 999 mls/hr 10/16/24 02:47 10/16/24 04:01 Ns IV 10/16/24 03:47 Infused .Q1H1M STA Infusion Potassium Chloride 10 meq in 100 mls @ 100 mls/hr 10/16/24 02:47 10/16/24 04:01 Potassium Chloride/H20 IV 10/16/24 03:46 Infused ONCE ONE Infusion Ondansetron HCl 4 mg 10/16/24 02:52 10/16/24 03:07 Ondansetron Hcl 4 Mg/2 Ml Vial IVPUSH 10/16/24 02:53 4 mg ONCE ONE Administration Medical Decision Making Medical Decision Making MDM Narrative: 59-year-old male with a past medical history significant for prostate cancer with urethral obstruction, hypokalemia, decompensated alcoholic liver cirrhosis with ascites, esophageal varices with recent upper GI bleed, portal hypertensive gastropathy amongst others as documented below who presents to the emergency department for evaluation of nausea, vomiting and constipation. Patient was had constant nausea with multiple episodes of vomiting x1 week and constipation times 1-2 weeks. He was had similar symptoms in the past in his required IV hydration and IV antiemetics. Physical examination was consistent with his cirrhosis. Differential diagnosis: ?Includes but is not limited to viral syndrome, gastroparesis, cyclic vomiting syndrome, electrolyte abnormalities, anemia Course: 02:51 hours: My interpretation patient's laboratory evaluation as follows: WBC was normal 7100. Chronic anemia with an H&H of 8.2 and 24.7. Chronic thrombocytopenia 102,000. Low potassium 2.7. Magnesium was normal at 2.0. AST elevated 44. Alk-phos elevated 196. Total bilirubin elevated 8.4. Patient was laboratory evaluation is consistent with his chronic cirrhosis. Patient was ordered to get normal saline 1 L IV, potassium chloride 10 mEq per 100 cc normal saline per hour x2 and Zofran 4 mg IV 07:39 Admission/Observation Consideration of admission/observation: Escalation of care including admission/observation considered (Yes) Lab Data MDM Lab Attestation statement: I reviewed the patient's lab results. 10/16/24 01:36 10/16/24 01:36 Labs: Lab Results 10/16/24 Range/Units 01:36 WBC 11.1 H (4.8-10.8) X10*3/uL RBC 2.43 L (4.60-5.80) X10*6/uL Hgb 8.2 L (14.0-18.0) g/dl Hct 24.7 L (42.0-52.0) % MCV 101.6 H (80.0-98.0) fL MCH 33.7 H (27.0-33.0) pg MCHC 33.2 (31.0-36.0) g/dl RDW 17.7 H (11.0-16.0) % Plt Count 102 L (160-400) X10*3/uL MPV 10.0 (9.4-12.4) fL Immature Gran % (Auto) 0.5 H (0.0-0.4) % Neut % (Auto) 59.7 (45-73) % Lymph % (Auto) 20.4 (20-40) % [place] % (Auto) 10.2 (2-11) % Eos % (Auto) 8.5 H (0-4) % Baso % (Auto) 0.7 (0-2) % Lymph # (Auto) 2.3 (1.2-4.9) X10*3/uL [place] # (Auto) 1.1 (0.1-1.2) X10*3/uL Eos # (Auto) 0.9 H (0.0-0.4) X10*3/uL Baso # (Auto) 0.1 (0.0-0.2) X10*3/uL Abs Immat Gran (auto) 0.05 H (0.00-0.03) X10*3/uL Absolute Neuts (auto) 6.6 (2.0-8.3) x10*3/uL Absolute Nucleated RBC 0.000 (0.0-0.012) X10*3/uL Nucleated RBC % (auto) 0.0 (0.0-0.2) /100WBC Sodium 138 (135-145) mmol/L Potassium 2.7 L* D (3.3-5.1) mmol/L Chloride 98 (96-108) mmol/L Carbon Dioxide 28 (22-29) mmol/L Anion Gap 15 (12-20) BUN 6 L (9-16) mg/dL Creatinine 0.75 (0.5-1.4) mg/dL Estim Creat Clear Calc 119.8 Estimated GFR > 60 Random Glucose 92 (60-115) mg/dL Calcium 7.6 L (8.4-10.2) mg/dL Magnesium 2.0 (1.6-2.6) mg/dL Total Bilirubin 8.4 H (0.0-1.0) mg/dL AST 44 H (5-37) U/L ALT < 6 (0-40) U/L Alkaline Phosphatase 196 H (39-117) U/L Troponin I High Sens < 2.7 (<3.5-35.0) ng/L B-Natriuretic Peptide 140 H (<100) pg/mL Total Protein 6.3 L (6.5-8.0) g/dL Albumin 1.9 L (3.5-5.0) g/dL Lipase 8 (8-78) U/L External Record Review External record reviewed: Inpatient record Discharge Plan Discharge Clinical Impression: Nausea & vomiting, Acute dehydration, Constipation Patient Disposition: Home, Self-Care Prescriptions: No Action mirtazapine 15 mg tablet 15 mg PO BEDTIME melatonin 10 mg tablet 10 mg PO BEDTIME furosemide 40 mg tablet 40 mg PO DAILY Protocol: Hold for SBP< HOLD for SBP < : 90 omeprazole 40 mg capsule,delayed release(DR/EC) 40 mg PO DAILY@0630 linezolid 600 mg Tablet 600 mg PO Q12H Qty: 12 0RF Rx Instructions: END DATE: 09/02/24 potassium chloride 20 mEq Tablet,Er Particles/Crystals 20 meq PO DAILY Qty: 90 0RF sodium bicarbonate 650 mg Tablet 650 mg PO TID Qty: 270 0RF lactulose 20 gram/30 mL Solution 20 g PO DAILY 90 Days Qty: 2700 0RF sucralfate 1 gram Tablet 1 g PO QIDACHS Qty: 360 0RF nystatin 100,000 unit/gram powder 1 appl topical BID Qty: 60 0RF tamsulosin 0.4 mg capsule 0.4 mg PO BEDTIME Print Language: Uzbek
[2024-10-16] MEDS: 0.9 % Sodium Chloride 1,000 ML 999 ML IV (03:00)
[2024-10-16] MEDS: Potassium Chloride/H20 10 MEQ/100 ML PIGGYBACK 100 MEQ IV (03:01)
[2024-10-16] MEDS: ondansetron HCL 4 MG/2 ML VIAL IVPUSH (03:07)
[2024-10-16 03:23] VITALS: BP 130/61; PULSE 79; RESP 14; TEMP 36.6; O2SAT 95
[2024-10-16 05:21] VITALS: BP 103/53; PULSE 73; RESP 17; TEMP 36.7; O2SAT 95
[2024-10-16 07:49] VITALS: BP 99/46; PULSE 75; RESP 14; TEMP 36.6; O2SAT 98
== END 2024-10-16 08:35 | disposition home or self-care (01) ==
PROVIDERS: Emergency Provider Emergency Medicine Emergency Medical Services; PCP Internal Medicine
DX: R11.2 Nausea with vomiting, unspecified (principal); E86.0 Dehydration; K59.00 Constipation, unspecified; I10 Essential (primary) hypertension; E78.5 Hyperlipidemia, unspecified; F10.20 Alcohol dependence, uncomplicated; Y90.9 Presence of alcohol in blood, level not specified; K70.31 Alcoholic cirrhosis of liver with ascites; K70.11 Alcoholic hepatitis with ascites; F17.210 Nicotine dependence, cigarettes, uncomplicated; F12.90 Cannabis use, unspecified, uncomplicated; Z85.46 Personal history of malignant neoplasm of prostate; Z92.3 Personal history of irradiation; Z79.899 Other long term (current) drug therapy
CPT/HCPCS: 36415; 80053; 83690; 83735; 83880; 84484; 85025; 93005; 96361; 96374; 96375; 99284; J2405; J3480

== ENCOUNTER → 2024-10-16 01:41 | Outpatient (BNV) | payer SELFPAY | PROVIDERS: Emergency Provider Emergency Medicine Emergency Medical Services; PCP Internal Medicine; Visit Provider Internal Medicine Cardiovascular Disease | DX: R94.31 Abnormal electrocardiogram [ECG] [EKG] (principal); R11.0 Nausea | CPT/HCPCS: 93010 ==

== ENCOUNTER 2024-10-20 23:23 | Inpatient (IN) | payer MEDICARE, SELFPAY ==
--- NOTE | ~2024-10-20 | XR_ITS ---
CLINICAL HISTORY: ett placement 1 view chest x-ray Comparison: None Findings: Endotracheal tube terminates in the mid to upper thoracic trachea. Right IJ central line terminates about the cavoatrial junction. Small bilateral pleural effusions, left worse than right. Bilateral pulmonary opacities are nonspecific and may reflect edema or infectious/inflammatory etiologies. No pneumothorax in this one view study. Degenerative changes include the imaged shoulders. Foci of sclerosis are multifocal and nonspecific. These appear nonaggressive but not further characterize by radiographs. IMPRESSION: 1. Endotracheal tube terminates in the midthoracic trachea. 2. Small pleural effusions with bilateral airspace disease. This document has been electronically signed by: Jack Mariano MD on 10/21/2024 21:53:22
--- NOTE | ~2024-10-20 | CT_ITS ---
CLINICAL HISTORY: nausea, bloody urine CT abdomen and pelvis with contrast Comparison: CT/SR - CT ABDOMEN WO IV CON - 08/14/24 16:19 EDT Findings: Fluid in the distal esophagus. Small hiatal hernia. Large right pleural effusion with right base atelectasis. The liver is diminutive with a diffuse heterogeneous pattern of enhancement. Portal vein is patent. There are stones in the gallbladder. Spleen is normal in size. No hydronephrosis of either kidney. Adrenal glands and pancreas are unremarkable. No bowel obstruction, pneumoperitoneum, or pneumatosis. [id number] ascites predominantly in the upper abdomen. There is fluid extending into the lesser sac. Diffuse body wall anasarca present. There are splenic vein varices and a large varices that communicates between the splenic vein and the hemorrhoidal veins. Urinary bladder is decompressed. There are radiopaque beads within the prostate bed. No acute fracture. IMPRESSION: 1. Small to moderate ascites. Diffuse body wall anasarca. Large right pleural effusion. 2. Fluid in the distal esophagus suggesting reflux. 3. Hepatic cirrhosis with evidence of portal hypertension. This document has been electronically signed by: Kade Patel MD on 10/21/2024 02:23:37
--- NOTE | ~2024-10-20 | US_ITS ---
EXAMINATION: US ABDOMEN LIMITED CLINICAL INFORMATION: Ascites. Therapeutic paracentesis requested. COMPARISON: CT abdomen pelvis October 21 TECHNIQUE: Real-time imaging of the right upper quadrant abdominal viscera. FINDINGS: Limited ultrasound imaging demonstrates a small volume ascites. There is significant abdominal wall edema. US/US abdomen limited IMPRESSION: 1). Small volume ascites. Given patient's worsening thrombocytopenia, a therapeutic paracentesis was not performed. 2. Abdominal wall edema. This procedure was performed by Anthony Banks PA-C, and supervised by Dr. Haddad Electronically signed by: Yehuda Haddad MD 10/31/2024 12:38 PM [facility]
--- NOTE | ~2024-10-20 | XR_ITS ---
EXAMINATION: XR CHEST CLINICAL INFORMATION: intubated COMPARISON: None available. TECHNIQUE: Frontal view of the chest was obtained. FINDINGS: Lungs are hypoexpanded with patchy opacity seen in both lower lobes likely infiltrate or atelectasis. The upper lungs are clear. Tip of endotracheal tube is 2.7 cm above the laure. Tip of central catheter is at the atriocaval junction. Heart size enlarged with poor vascularity is prominent. XR/XR chest 1V IMPRESSION: Stable bilateral patchy opacities/infiltrates in both lungs. Support lines and catheters are stable as well. Electronically signed by: Fredy Cordova MD 10/22/2024 10:50 AM [facility] [place]
[2024-10-20 23:32] VITALS: BP 96/33; PULSE 80; O2SAT 98
[2024-10-20 23:45] VITALS: BP 103/47; PULSE 98; RESP 22; TEMP 36.5; O2SAT 98; BMI 32.1
[2024-10-21] VITALS (56 sets, daily range): BP systolic 83–124; BP diastolic 29–65; PULSE 52–107; RESP 12–34; TEMP 34.7–37.2; O2SAT 92–100; BMI 32.1
--- NOTE | 2024-10-21 00:27 | ED.NAVMDI ---
HPI - Nausea/Vomiting/Diarrhea General Chief complaint: Urogenital-Male Stated complaint: hemorrhaging from penis, hx blood clots per ems Time Seen by Provider: 10/21/24 00:10 History of Present Illness HPI Narrative: Patient is a 59-year-old male with a history of liver cirrhosis. History of urinary tract infection. History of upper GI bleed. Dysphagia. Presented today with having bloody urine. Positive clots. Patient had diffuse bloating in the abdomen. No pain. No fever no chills. No chest pain. Denies noticing any stool that is black or bloody. Patient is from home. Related Data Home Medications ?Medication ?Instructions ?Recorded ?Confirmed melatonin 10 mg tablet 10 mg PO BEDTIME Insomnia 11/13/23 08/31/24 mirtazapine 15 mg tablet 15 mg PO BEDTIME 11/13/23 08/31/24 tamsulosin 0.4 mg capsule 0.4 mg PO BEDTIME 07/23/24 08/31/24 furosemide 40 mg tablet 40 mg PO DAILY 08/24/24 08/31/24 omeprazole 40 mg capsule,delayed 40 mg PO DAILY@0630 08/24/24 08/31/24 release Previous Rx's ?Medication ?Instructions ?Recorded lactulose 20 gram/30 mL oral 20 g (30 mL) PO DAILY 90 days 08/25/24 solution #2,700 mL linezolid 600 mg tablet 600 mg PO Q12H #12 tabs 08/25/24 potassium chloride 20 mEq 20 meq PO DAILY #90 tabs 08/25/24 tablet,extended release(part/cryst) sodium bicarbonate 650 mg tablet 650 mg PO TID #270 tabs 08/25/24 sucralfate 1 gram tablet 1 g PO QIDACHS #360 tabs 08/25/24 nystatin 100,000 unit/gram topical 1 appl topical BID #60 grams 09/13/24 powder ondansetron 4 mg disintegrating 4 mg PO Q6-8H PRN nausea and 10/16/24 tablet vomiting #14 tabs Allergies Allergy/AdvReac Type Severity Reaction Status Date / Time Fish Containing Products Allergy Severe THROAT Verified 10/21/24 01:08 SWELLING peanut [Peanut] Allergy Severe THROAT Verified 10/21/24 01:08 SWELLING Review of Systems Review of Systems: Positive urinating blood PMFSH Past Medical History Attestation statement: The following information was validated with the patient. Medical History Urethral obstruction Acute urinary retention Gross hematuria Alcoholic hepatitis Thrombocytopenia Nausea & vomiting Hyponatremia Acute hypokalemia Alcohol dependence Ascites Congestive heart failure Anemia ETOH abuse Alcoholic cirrhosis PTSD (post-traumatic stress disorder) Hyponatremia Acute hyponatremia NATHANIEL (acute kidney injury) Acute metabolic encephalopathy [place] Alcoholic cirrhosis of liver with ascites Prostate cancer Depression Hyperlipidemia Hypertension Anxiety Social History Social History Household Members: Significant Other Household Members Other:: Ethalee [facility] Do you presently have visiting nurse or other home services: Yes ([facility]) Unable to assess alcohol history related to: Refusing to respond Alcohol intake: former Comment: bilateral wrist restraints for airway safety Patient Tobacco Use Status: Current everyday Tobacco user Tobacco use type: Cigarette Cigarette Packs Per Day: 3 Cigarettes Per Day: 3 Years Smoked: 25 e-Cigarette/Vaping Use: Never Used Second Hand Smoke Exposure: No Substance Use Type: Marijuana Advance Directives: Yes Advance Directives on File: Yes Advance Directives Date on File: 04/03/24 service: No Current occupational status: disabled Physical Exam Vital Signs: Vital Signs: Last Vital Signs Temp 97.7 F 10/20/24 23:45 Pulse 98 10/20/24 23:45 Resp 22 H 10/20/24 23:45 BP 103/47 L 10/20/24 23:45 Pulse Ox 98 10/20/24 23:45 O2 Del Method Room Air 10/20/24 23:45 BMI result Body Mass Index 32.1 Sick appearing male looks older than stated age Appearance: Alert. Oriented X3. No acute distress. Eyes: Pupils equal, round and reactive to light. Positive jaundice ENT: Pharynx normal. Neck: Normal inspection. Neck supple. No lymph nodes noted. No crepitus CVS: Normal heart rate and rhythm. Pulses normal. Normal S1 and S2 Respiratory: No respiratory distress. Breath sounds normal. No Wheezing. No rales Abdomen: Enlarged liver at least 4 fingerbreadths below costal margin. Positive ascites nontender. No rigidity. No distention. good BS x4 Skin: Skin warm and dry. Bronze colorr. Normal skin turgor. Extremities: No lower extremity edema. Neurovascular intact to all extremities. No Lacerations. No Rash Neuro: Oriented X 3. No motor deficit. No sensory deficit. Moving all extermities. No slurred speech Medications Administered Discontinued Medications Generic Name Dose Route Start Last Admin Trade Name Taz PRN Reason Stop Dose Admin Sodium Chloride 1,000 mls @ 999 mls/hr 10/21/24 00:30 10/21/24 01:13 Ns IV 10/21/24 01:30 999 mls/hr .Q1H1M KULWANT Administration Iohexol 85 ml 10/21/24 01:41 10/21/24 01:41 Iohexol 350 Mg/Ml 100 Ml Infus..Btl IV 10/21/24 01:42 85 ml ONCE ONE Administration Octreotide Acetate 100 mcg 10/21/24 01:15 10/21/24 01:45 Octreotide Acetate 100 Mcg/Ml Ampul IVPUSH 10/21/24 01:16 100 mcg ONCE ONE Administration Pantoprazole Sodium 80 mg 10/21/24 01:15 10/21/24 01:47 Pantoprazole Sodium 40 Mg/10 Ml Vial IVPUSH 10/21/24 01:16 80 mg ONCE ONE Administration Medical Decision Making Medical Decision Making MDM Narrative: Patient's stool came back heme-positive yellow color. Rectal exam was done with tech present. History of liver cirrhosis. Now having bloody urine. A bladder scan was done. Postvoid patient has 120 cc of urine. No retention noted. Patient's old records reviewed has a long history of liver cirrhosis has a history of esophageal varices status post banding. History of anemia. Patient's INR is 2 today despite not being on any anticoagulation likely secondary to the liver cirrhosis. Patient is hemoglobin came back at 6.8 this is much lower than his baseline of 8.5. Risk and benefits of transfusion explained to patient. While he was in the emergency department he started vomiting blood. A small amount of blood was noted. Patient was started on Protonix and also on octreotide. His potassium came back at 2.5. IV potassium was ordered. Patient's stool came back heme-positive brown. Differential Diagnosis Differential Diagnoses: The differential diagnosis associated with the presentation includes Esophageal varices, hematuria Admission/Observation Consideration of admission/observation: Escalation of care including admission/observation considered Consult Healthcare Provider Management of the patient was discussed with: Hospitalist (Consulted hospitalist but given patient's extensive esophageal varices feel more comfortable patient going to the ICU) and Cadmium Burner (Clothing Consultant) Lab Data MDM Lab Attestation statement: I reviewed the patient's lab results. 10/21/24 01:00 10/21/24 01:00 Labs: Lab Results 10/21/24 10/21/24 10/21/24 Range/Units 00:40 00:59 01:00 WBC 14.0 H (4.8-10.8) X10*3/uL RBC 2.03 L (4.60-5.80) X10*6/uL Hgb 6.8 L* (14.0-18.0) g/dl Hct 20.7 L* (42.0-52.0) % MCV 102.0 H (80.0-98.0) fL MCH 33.5 H (27.0-33.0) pg MCHC 32.9 (31.0-36.0) g/dl RDW 18.3 H (11.0-16.0) % Plt Count 86 L (160-400) X10*3/uL MPV 9.8 (9.4-12.4) fL Immature Gran % (Auto) 0.8 H (0.0-0.4) % Neut % (Auto) 74.1 H (45-73) % Lymph % (Auto) 14.5 L (20-40) % [place] % (Auto) 9.9 (2-11) % Eos % (Auto) 0.5 (0-4) % Baso % (Auto) 0.2 (0-2) % Lymph # (Auto) 2.0 (1.2-4.9) X10*3/uL [place] # (Auto) 1.4 H (0.1-1.2) X10*3/uL Eos # (Auto) 0.1 (0.0-0.4) X10*3/uL Baso # (Auto) 0.0 (0.0-0.2) X10*3/uL Abs Immat Gran (auto) 0.11 H (0.00-0.03) X10*3/uL Absolute Neuts (auto) 10.4 H (2.0-8.3) x10*3/uL Absolute Nucleated RBC 0.000 (0.0-0.012) X10*3/uL Nucleated RBC % (auto) 0.0 (0.0-0.2) /100WBC PT 27.2 H D (10.9-12.4) SEC INR 2.3 H (0.9-1.1) Sodium 129 L (135-145) mmol/L Potassium 2.5 L* (3.3-5.1) mmol/L Chloride 89 L (96-108) mmol/L Carbon Dioxide 29 (22-29) mmol/L Anion Gap 14 (12-20) BUN 15 (9-16) mg/dL Creatinine 1.32 (0.5-1.4) mg/dL Estim Creat Clear Calc 67.6 Estimated GFR 56 Random Glucose 98 (60-115) mg/dL Calcium 7.8 L (8.4-10.2) mg/dL Magnesium 1.8 (1.6-2.6) mg/dL Total Bilirubin 13.4 H (0.0-1.0) mg/dL Direct Bilirubin 7.8 H (0.0-0.5) mg/dL AST 63 H (5-37) U/L ALT < 6 (0-40) U/L Total Protein 6.3 L (6.5-8.0) g/dL Albumin 2.0 L (3.5-5.0) g/dL Lipase 29 (8-78) U/L Stool Occult Blood POSITIVE (NEGATIVE) Blood Type A Positive Crossmatch See Detail Radiology Impression Discussion of test interpretation with radiology: I have reviewed the radiologist's reading. Independent Historian Clinical information obtained from an independent historian. History obtained from or confirmed by: EMS External Record Review External record reviewed: Inpatient record, Office record and Outpatient record Chronic Conditions Long history of esophageal varices Social Determinants Patient?s care significantly limited by Social Determinants of Health including: Inadequate housing, Alcoholism and drug addiction in family and Problems related to primary support group Critical Care Time Critical Care Time Critical Care Time: Yes Total Critical Care Time: 40 Attestation: I have personally provided 40 minutes of critical care time exclusive of time spent on separately billable procedures. ?Time includes review of lab data, radiology results, discussion with consultants, and monitoring for potential decompensation. ?Interventions were performed as documented above Discharge Plan Discharge Clinical Impression: Anasarca, Acute hypokalemia, Bleeding esophageal varices Patient Disposition: Admitted As Inpatient Prescriptions: No Action mirtazapine 15 mg tablet 15 mg PO BEDTIME melatonin 10 mg tablet 10 mg PO BEDTIME furosemide 40 mg tablet 40 mg PO DAILY Protocol: Hold for SBP< HOLD for SBP < : 90 omeprazole 40 mg capsule,delayed release(DR/EC) 40 mg PO DAILY@0630 linezolid 600 mg Tablet 600 mg PO Q12H Qty: 12 0RF Rx Instructions: END DATE: 09/02/24 potassium chloride 20 mEq Tablet,Er Particles/Crystals 20 meq PO DAILY Qty: 90 0RF sodium bicarbonate 650 mg Tablet 650 mg PO TID Qty: 270 0RF lactulose 20 gram/30 mL Solution 20 g PO DAILY 90 Days Qty: 2700 0RF sucralfate 1 gram Tablet 1 g PO QIDACHS Qty: 360 0RF nystatin 100,000 unit/gram powder 1 appl topical BID Qty: 60 0RF ondansetron 4 mg tablet,disintegrating 4 mg PO Q6-8H PRN (Reason: nausea and vomiting) Qty: 14 0RF tamsulosin 0.4 mg capsule 0.4 mg PO BEDTIME Print Language: Ukrainian
[2024-10-21 01:04] LABS: OBS Int Ctl Valid YES; OBS1 POSITIVE (NEGATIVE)
[2024-10-21 01:04] LABS: Basophils Percent Auto 0.2 % (0-2); Eosinophils Absolute Auto 0.1 X10*3/uL (0.0-0.4); Eosinophils Percent Auto 0.5 % (0-4); Imm Gran Abs Auto 0.11 X10*3/uL (0.00-0.03); Imm Gran Pct Auto 0.8 % (0.0-0.4); Lymphocytes Percent Auto 14.5 % (20-40); Mean Corpuscular HGB Conc 32.9 g/dl (31.0-36.0); Mean Corpuscular Hemoglobin 33.5 pg (27.0-33.0); Mean Platelet Volume 9.8 fL (9.4-12.4); Monocytes Absolute Auto 1.4 X10*3/uL (0.1-1.2); Monocytes Percent Auto 9.9 % (2-11); Neutrophils Absolute Auto 10.4 x10*3/uL (2.0-8.3); Neutrophils Percent Auto 74.1 % (45-73); Red Blood Count 2.03 X10*6/uL (4.60-5.80); Red Cell Distribution Width 18.3 % (11.0-16.0)
[2024-10-21 01:05] LABS: MANUAL DIFF FLAG NO; Platelet Count 86 X10*3/uL (160-400)
[2024-10-21] MEDS: 0.9 % Sodium Chloride 1,000 ML 999 ML IV (01:13)
[2024-10-21 01:14] LABS: Hematocrit 20.7 % (42.0-52.0); Hemoglobin 6.8 g/dl (14.0-18.0)
[2024-10-21 01:15] LABS: INTERNATIONAL NORM RATIO 2.3 (0.9-1.1); Prothrombin Time 27.2 SEC (10.9-12.4)
--- NOTE | 2024-10-21 01:16 | PC.NURSE ---
pt actively vomiting blood, MD aware
[2024-10-21 01:24] LABS: Alanine Aminotransferase < 6 U/L (0-40); Anion Gap 14 (12-20); Aspartate Amino Transferase 63 U/L (5-37); Bilirubin Direct 7.8 mg/dL (0.0-0.5); Bilirubin Total 13.4 mg/dL (0.0-1.0); Blood Urea Nitrogen 15 mg/dL (9-16); Calcium 7.8 mg/dL (8.4-10.2); Carbon Dioxide 29 mmol/L (22-29); Chloride 89 mmol/L (96-108); Creatinine Clr Calc Pharmacy 67.6; Estimated Glomerular Filt Rate 56; Glucose Random 98 mg/dL (60-115); Lipase 29 U/L (8-78); Magnesium 1.8 mg/dL (1.6-2.6); Potassium 2.5 mmol/L (3.3-5.1); Sodium 129 mmol/L (135-145); Total Protein 6.3 g/dL (6.5-8.0)
[2024-10-21] MEDS: iohexoL 350 MG/ML 100 ML INFUS..BTL 85 ML IV (01:41)
[2024-10-21] MEDS: Octreotide Acetate 100 MCG/ML AMPUL IVPUSH (01:45)
[2024-10-21] MEDS: Pantoprazole Sodium 40 MG/10 ML VIAL 80 MG IVPUSH (01:47)
[2024-10-21] MEDS: Potassium Chloride/H20 10 MEQ/100 ML PIGGYBACK 100 MEQ IV ×8 (02:03→16:41)
[2024-10-21] MEDS: Octreotide Acetate 500 MCG in 0.9 % Sodium Chloride 500 ML 25.05 MCG IVCONT (02:09)
--- NOTE | 2024-10-21 02:25 | PC.NURSE ---
pt vomited x2, 350mls of red kelechi blood total at this time. blood transfusion started. 3IVs placed: 20 RAC, 20 L forearm, 22 L wrist EMS
[2024-10-21 02:35] LABS: Alkaline Phosphatase 163 U/L (39-117)
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
[2024-10-21 02:57] LABS: Phosphorus 2.8 mg/dL (2.7-4.5)
[2024-10-21] MEDS: cefTRIAXone sodium 1 GM VIAL IVPUSH (03:14)
[2024-10-21] MEDS: ondansetron HCL 4 MG/2 ML VIAL IVPUSH ×2 (03:14→10:13)
[2024-10-21] MEDS: Albumin Human 25 % 100 ML IV ×3 (03:14→23:17)
[2024-10-21] MEDS: Tranexamic Acid 1,000 MG in 0.9 % Sodium Chloride 50 ML 360 MG IV (03:19)
[2024-10-21] MEDS: Metoclopramide HCl 10 MG/2 ML VIAL 5 MG IVPUSH (03:19)
[2024-10-21] MEDS: Pantoprazole Sodium 40 MG/10 ML VIAL IVPUSH ×2 (05:14→16:44)
[2024-10-21 05:23] LABS: Partial Thromboplastin Time 58.4 SEC (26.0-36.8)
[2024-10-21 05:24] LABS: INTERNATIONAL NORM RATIO 2.7 (0.9-1.1); Prothrombin Time 31.7 SEC (10.9-12.4)
[2024-10-21 05:27] LABS: Magnesium 1.8 mg/dL (1.6-2.6); Phosphorus 2.9 mg/dL (2.7-4.5)
[2024-10-21] MEDS: Norepinephrine Bitartrate/D5W 8 MG/250 ML PLAST..BAG 8.98 MG IVCONT (05:47)
--- NOTE | 2024-10-21 06:32 | PC.NURSE ---
Pt admitted to ICU from ED at approx 0300. Upon initial assessment- pt A&Ox4, calm/cooperative, MAST. Afebrile. NSR on tele, HR 70s. SBP 80s, MAP 40-50s- levophed gtt ordered and started to maintain MAP > 60. Denies any lightheadedness or dizziness. +3 BLE taut/pitting edema up to groin. +DP pulses obtained via Doppler. LS clear, SpO2 > 92% on room air. Pt with N/V of kelechi blood with clots, approx 250 mL of emesis, GENESIS Weiss aware. Given zofran and reglan IVP per MAR with good effect. NPO. Multiple pRBC units transfused per TAR, no s/s of reaction noted. Has not voided since admission, bladder scan done in ED per EMR. Incontinent of stool x2 with moderate amount of melena. Skin overall intact, jaundiced, small scab to R upper thigh. at bedside and updated by this RN, all questions answered at this time. Pt/ aware of pt status/plan of care. Bed locked in lowest position, bed alarm on, call andres in reach.
--- NOTE | 2024-10-21 08:07 | PHA.MEDREC ---
Pharmacy Consult ? Medication Reconciliation Pharmacy has completed the medication reconciliation.Med rec complete, spoke to patients and compared pharmacy claim history and last discharge information. Catalino was able to state he was still taking medications when listed, but her accuracy is unclear, made some decisions based upon previous discharge medications.
[2024-10-21] MEDS: 0.9 % Sodium Chloride Flush 3 ML SYRINGE IVFLUSH ×3 (08:57→22:46)
--- NOTE | 2024-10-21 09:11 | P.CNGI_ITS ---
History of Present Illness Data of Consult Service Date: 10/21/24 Requesting physician: Phu Weiss Primary Care Provider: Fransisco Soria MD [facility] Reason for consult: UGI bleeding 59 YM with prostate cancer with urethral obstruction, liver cirrhosis with ascites due to alcoholism, esophageal varices with previous upper GI bleeds with recent EGD and variceal hemoclip and ligation post packed red blood cell transfusion last discharged on 08/25/2024, portal hypertension, hypokalemia, chronic Barber catheter with recent cystoscopy for bladder neck dilation and clot evaluation as well as Barber placement, previous UTIs with resistant Enterococcus faecium, previous gross hematuria episodes, thrombocytopenia and coagulopathy due to liver disease, hyponatremia, ascites, CHF, PTSD, anxiety, hypertension, hyperlipidemia, depression. Patient seen at [facility] ED early this am with complaints of hematuria and significant clots coming out of his penis.? He has not had a Barber catheter in several weeks. Pt denied abdominal pain, he just started developing the nausea and vomiting while in the ER.? On arrival the patient was hemodynamically stable with borderline blood pressure of 103/47, the workup in the ER significant for white count 47890, H and H of 6.8 and 20.7 respectively, platelets of 86, potassium 2.5, creatinine of 1.32, INR 2.0, heme-positive stools. ? While in the ED, patient became hypotensive and had small bouts of hematemesis; He was admitted to the ICU for further stabilization and treatment. Pt states he was using alcohol heavily since the age of 25-his favorite Flavors were alcohol vodka and beers. Pt has been through Rehab treatment in the past. Pt reports last ETOH intake was 2 weeks ago GI HISTORY BY REVIEW OF MEDICAL RECORDS: 08/14/24 EGD SHOWED: Endoscopy Findings: ESOPHAGUS: Two column Grade 2-3 varices from 30 to 36 cms and erosive esophagitis. Slow oozing from GE junction. A hemoclip noted at 34 cms (Placed during a previous EGD in 03/2024) Band ligation of esophageal varices was performed - 4 bands were placed with flattening of the varices. (Esophageal varices likely obscured on previous EGDs due to overlying erosive esophagitis) STOMACH: Moderate portal hypertensive gastropathy Plan: 1. Repeat CBC tonight and transfuse prn 2. Continue IV octreotide infusion x 48 hrs 3. Clear liquid diet tonight (order placed) and advanced to a soft diet in the a.m. 3. If recurrent bleeding, transfer to tertiary care for TIPPS placement Review of Systems 2 Review of Systems: Yes all other systems are reviewed and are negative [facility] Past Medical History Medical History Urethral obstruction Acute urinary retention Gross hematuria Alcoholic hepatitis Thrombocytopenia Nausea & vomiting Hyponatremia Acute hypokalemia Alcohol dependence Ascites Congestive heart failure Anemia ETOH abuse Alcoholic cirrhosis PTSD (post-traumatic stress disorder) Hyponatremia Acute hyponatremia NATHANIEL (acute kidney injury) Acute metabolic encephalopathy Falls Alcoholic cirrhosis of liver with ascites Prostate cancer Depression Hyperlipidemia Hypertension Anxiety Social History Social History Household Members: Spouse Household Members Other:: Ethalee Housing: House Do you presently have visiting nurse or other home services: Yes Unable to assess alcohol history related to: Refusing to respond Alcohol intake: former Comment: bilateral wrist restraints for airway safety Patient Tobacco Use Status: Former Tobacco user Tobacco use type: Cigarette Cigarette Packs Per Day: 3 Cigarettes Per Day: 3 Years Smoked: 25 e-Cigarette/Vaping Use: Never Used Second Hand Smoke Exposure: No Substance Use Type: Marijuana Advance Directives Date on File: 04/03/24 service: No Current occupational status: disabled Meds Allergies Allergy/AdvReac Type Severity Reaction Status Date / Time Fish Containing Products Allergy Severe THROAT Verified 10/21/24 01:08 SWELLING peanut [Peanut] Allergy Severe THROAT Verified 10/21/24 01:08 SWELLING Active Medications: Current Medications Octreotide Acetate 500 mcg/ (Sodium Chloride) 501 mls @ 50.1 mls/hr IVCONT .Q10H [facility] Last Infusion: 10/21/24 04:38 Dose: 50 mcg/hr, 50.1 mls/hr Norepinephrine Bitartrate (Levophed) 8 mg in 250 mls @ 0 mls/hr IVCONT .Q0M [facility]; Protocol Last Titration: 10/21/24 08:15 Dose: 0.09 mcg/kg/min, 16.17 mls/hr Potassium Chloride (Potassium Chloride/H20) 10 meq in 100 mls @ 100 mls/hr IV Q1H [facility] Stop: 10/21/24 12:59 Ondansetron HCl (Ondansetron Hcl 4 Mg/2 Ml Vial) 4 mg IVPUSH Q6H PRN PRN Reason: Nausea and Vomiting Pantoprazole Sodium (Pantoprazole Sodium 40 Mg/10 Ml Vial) 40 mg IVPUSH BID@0630,1630 [facility] Last Admin: 10/21/24 05:14 Dose: 40 mg Sodium Chloride (0.9 % Sodium Chloride Flush 3 Ml Syringe) 3 ml IVFLUSH QSHIFT [facility] Last Admin: 10/21/24 08:57 Dose: 3 ml Home Medications ?Medication ?Instructions ?Recorded ?Confirmed ?Last Taken ?Type melatonin 10 mg tablet 10 mg PO BEDTIME Insomnia 11/13/23 10/21/24 08/30/24 History mirtazapine 15 mg tablet 15 mg PO BEDTIME 11/13/23 10/21/24 08/30/24 History tamsulosin 0.4 mg capsule 0.4 mg PO BEDTIME 07/23/24 10/21/24 08/30/24 History furosemide 40 mg tablet 40 mg PO DAILY 08/24/24 10/21/24 08/30/24 History nystatin 100,000 unit/gram topical 1 appl topical BID 10/21/24 10/21/24 Unknown History powder pantoprazole 40 mg tablet,delayed 40 mg PO BID 10/21/24 10/21/24 Unknown History release Physical Exam 2 Vital Signs: Vital Signs: Last Vital Signs Temp 98.1 F 10/21/24 08:46 Pulse 70 10/21/24 08:46 Resp 14 10/21/24 08:46 BP 96/40 L 10/21/24 08:46 Pulse Ox 98 10/21/24 08:00 O2 Del Method Room Air 10/21/24 08:00 BMI result Body Mass Index 32.1 General:? Alert oriented x3 no acute distress.? Speaking full sentences.? Speech is well articulated, thought process is coherent.? Following all commands. Skin:? Diffuse jaundice, diffuse edema of the bilateral lower extremities in an ascending manner all the way up to the chest Intact, no open lesions, No ulcers. HEENT:? Head is normocephalic, atraumatic, bilateral icterus, pupils equal round reactive to light accommodation bilaterally.? Extraocular movements appear intact.? Buccal mucosa is dry with dry blood residues. ?Neck is supple without lymphadenopathy. Cardiac:? Clear S1-S2, no murmurs rubs or gallops. Pulmonary:? Diminished lung sounds bilaterally with fine crackles at the right base and laterally.? No wheezes, rhonchi Abdomen:? Protuberant, diminished bowel sounds bilaterally in all 4 quadrants.? Hard, distended, nontender to light and deep touch, no rebound or guarding. Musculoskeletal:? Significant muscle wasting of the neck, chest muscles and upper extremities.? Diffuse leg edema of the bilateral lower extremities in an ascending manner up to the chest.? There is no leg asymmetry.? Range of motion of the upper and lower extremities at the major joints upon request is possible without assistance, no crepitus. Neurologic:? As above, No focal deficits noted. Vascular:? 2+ pulses upper extremities bilaterally.? Lower extremity pulses are present bilaterally only with Doppler given the amount of edema. Results Labs 10/21/24 12:40 10/21/24 12:40 Labs: Short CBC 10/21/24 Range/Units 01:00 WBC 14.0 H (4.8-10.8) X10*3/uL Hgb 6.8 L* (14.0-18.0) g/dl Hct 20.7 L* (42.0-52.0) % Plt Count 86 L (160-400) X10*3/uL BMP 10/21/24 01:00 Sodium 129 L Potassium 2.5 L* Chloride 89 L Carbon Dioxide 29 BUN 15 Creatinine 1.32 Calcium 7.8 L Liver Function 10/21/24 Range/Units 01:00 Total Bilirubin 13.4 H (0.0-1.0) mg/dL Direct Bilirubin 7.8 H (0.0-0.5) mg/dL AST 63 H (5-37) U/L ALT < 6 (0-40) U/L Alkaline Phosphatase 163 H (39-117) U/L Albumin 2.0 L (3.5-5.0) g/dL Assessment and Plan (1) Esophageal varices: Status: Acute (2) Acute upper gastrointestinal bleeding: Status: Acute (3) Anemia: Qualifiers: Other causes of anemia: acute posthemorrhagic Status: Acute (4) Cirrhosis: Status: Acute Plan 59 YM with ETOH related cirrhosis with ascites, portal hypertension, hx of hepatic encephalopathy and esophageal varices with previous upper GI bleeds. Pt admitted to ICU this morning with hematuria and significant clots coming out of his penis.? While in the ED, pt developed nausea and vomiting followed by hematemesis. Pt was transfused 4U of PRBC, 2 U of FFP. UGI bleeding likely from esophageal varices or portal hypertensive gastropathy, or peptic ulcer disease. RECOMMENDATIONS: 1. Agree with IV PPI, and blood transfusion 2. Correct anemia and electrolyte imbalance. 3. Pt scheduled for an urgent EGD today for further assessment - procedure and potential complications reviewed with the patient 4. Therapeutic paracentesis with ascitic fluid analysis for cell count and diff once patient is more stable. Procedures Date of Service Date of Service: 10/21/24
[2024-10-21 12:51] LABS: Hematocrit 25.1 % (42.0-52.0); Hemoglobin 8.8 g/dl (14.0-18.0); Mean Corpuscular HGB Conc 35.1 g/dl (31.0-36.0); Mean Corpuscular Hemoglobin 32.8 pg (27.0-33.0); Mean Corpuscular Volume 93.7 fL (80.0-98.0); Mean Platelet Volume 10.2 fL (9.4-12.4); Red Blood Count 2.68 X10*6/uL (4.60-5.80); Red Cell Distribution Width 19.8 % (11.0-16.0); White Blood Count 13.9 X10*3/uL (4.8-10.8)
[2024-10-21 12:53] LABS: Platelet Count 82 X10*3/uL (160-400)
[2024-10-21 12:56] LABS: Prothrombin Time 23.9 SEC (10.9-12.4)
[2024-10-21 13:13] LABS: Blood Urea Nitrogen 16 mg/dL (9-16); Calcium 7.9 mg/dL (8.4-10.2); Creatinine Clr Calc Pharmacy 62.8; Estimated Glomerular Filt Rate 51; Glucose Random 108 mg/dL (60-115)
[2024-10-21 13:43] LABS: Anion Gap 17 (12-20); Carbon Dioxide 24 mmol/L (22-29); Chloride 92 mmol/L (96-108); Potassium 3.4 mmol/L (3.3-5.1); Sodium 130 mmol/L (135-145)
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
--- NOTE | 2024-10-21 14:04 | MHC.CM.PN ---
Pt known to [facility] from previous admissions: Admitted to ICU w/variceal bleed, hematuria and hematemesis. Information obtained from pt's ria Bae who states pt resides with her and uses a cane and walker. He had [facility] visits for skilled RN assessments. She assists prn including w/transportation. HCP on file. IMM in chart. Catalino states d/c goals are for a return to home with [facility] services. She is requesting S services for transport to home. Referral placed. CM to follow.
[2024-10-21] MEDS: Octreotide Acetate 500 MCG in 0.9 % Sodium Chloride 500 ML 50.1 MCG IVCONT ×2 (14:06→22:44)
--- NOTE | 2024-10-21 15:04 | W.PM.OPN ---
Operative Note Operative Note Date of Service: 10/21/24 Narrative: FLEXIBLE TRANSORAL UPPER GASTROINTESTINAL ENDOSCOPY WITH BAND LIGATION OF ESOPHAGEAL VARICES AND HEMO SPRAY Pre-op diagnosis: Cirrhosis with recurrent upper GI bleed, acute on chronic anemia Post-op diagnosis: Esophageal varices, erosive esophagitis, portal hypertensive gastropathy Endoscopist:? Abhilash Brito MD Anesthesia:?MAC UPPER ENDOSCOPY Consent: Indications for the procedure and potential complications of bleeding, perforation, reaction to medications and missed diagnosis were discussed with the patient and informed consent was obtained. Instrument: Olympus GIF H 190 mid size upper endoscope Monitoring: Vital signs and clinical assessment, continuous EKG monitoring, Pulse oximetry, Carbon Dioxide monitoring and blood pressure monitoring were done throughout the procedure. Procedure: The patient was placed in the left lateral decubitis position and pre-procedure medications were administered and a bite block was placed. The endoscope was inserted into the mouth and advanced under direct vision to the third part of duodenum. A careful inspection was made as the upper endoscope was withdrawn including a retroflexed examination of the proximal stomach; Findings and interventions are described below. Findings: Larynx: ET tube in place with blood tinged fluid in the posterior pharynx which was suctioned Esophagus: Fresh blood and clots in the esophagus which were flushed and suctioned. GE junction at 36 cms, hiatal hernia 36 to 40 cms. Four column Grade 3-4 varices from 30 to 36 cms and erosive esophagitis. Oozing of fresh blood noted from distal esophagus.. Band ligation of esophageal varices was performed - 3 bands were placed with flattening of the varices and continued bleeding. Hemospray was applied to the distal esophagus at the end of the procedure. Stomach: Friable gastric mucosa with mosaic pattern consistent with moderate portal hypertensive gastropathy. Grade 3 flap valve on retroflexed examination of the cardia. Duodenum: Edematous folds in the bulb and descending duodenum. Intervention: Band ligation of esophageal varices as noted above Impression and Post Procedure Diagnosis: Endoscopy Findings: ESOPHAGUS: GE junction at 36 cms, hiatal hernia 36 to 40 cms. Four column Grade 3-4 varices from 30 to 36 cms and erosive esophagitis. Oozing of fresh blood noted from distal esophagus.. Band ligation of esophageal varices was performed - 3 bands were placed with flattening of the varices and continued bleeding. Hemospray was applied to the distal esophagus at the end of the procedure. STOMACH: Friable gastric mucosa with mosaic pattern consistent with moderate portal hypertensive gastropathy. DUODENUM: Edematous duodenal folds without bleeding Plan: Continue octreotide and pressors Monitor CBC every 4 hrs for the next 12 hrs and transfuse prn. Above findings were reviewed with the patient and relevant handouts were given and the discharge area.
[2024-10-21] MEDS: fentaNYL citrate/PF 100 MCG/2 ML VIAL 50 MCG IVPUSH (16:00)
[2024-10-21] MEDS: dexmedeTOMIDidine HCL/NS 400 MCG/100 ML INFUS..BTL 11.98 MCG IVCONT (16:00)
[2024-10-21] MEDS: Norepinephrine Bitartrate/D5W 8 MG/250 ML PLAST..BAG 37.72 MG IVCONT (16:12)
[2024-10-21] MEDS: dexmedeTOMIDidine HCL/NS 400 MCG/100 ML INFUS..BTL 31.14 MCG IVCONT (19:50)
--- NOTE | 2024-10-21 20:16 | W.PM.CCHP ---
Procedures Date of Service Date of Service: 10/21/24 <Ccei Rod NP - Last Filed: 10/21/24 23:59> 10/22/24 <Chapincito Arcos MD - Last Filed: 10/22/24 08:31> Intubation Intubation Comments: The patient developed progressive respiratory fatigue, somnolence, and hypoxemia, despite Hi-Flow O2. He was preoxygenated with Ambu-bag 100%. Just prior to intubation, dark red blood filled the oropharynx and was suctioned with the yankar and wall suction. RSI was carried out with the meds below. The glottis was easily visualized with 3 GlideScope, and the trachea was intubated with a 7.5 ETT via? indirect video visualization, atraumatic.? BSBE, +CO2, SpO2 maintained.? The tube was secured at 25 cm at the upper lip. The patient tolerated the procedure well with no complications.? Placement confirmed with chest x-ray. <Ceci Rod NP - Last Filed: 10/21/24 23:59> Consent for Procedure: Emergent-no informed consent obtained (consent obtained from at bedside) <Ceci Rod NP - Last Filed: 10/21/24 23:59> Time out performed: Yes <Ceci Rod NP - Last Filed: 10/21/24 23:59> Sedative: etomidate <Ceci Rod NP - Last Filed: 10/21/24 23:59> Mg given: 20 <Ceci Rod NP - Last Filed: 10/21/24 23:59> Laryngoscope: fiber optic video scope <Ceci Rod NP - Last Filed: 10/21/24 23:59> ET tube size: 7.5 <Ceci Rod NP - Last Filed: 10/21/24 23:59> ET tube uncuffed: Yes <Ceci Rod NP - Last Filed: 10/21/24 23:59> Tube secured depth (cm): 25 <Ceci Rod NP - Last Filed: 10/21/24 23:59> Tube secured location: lips <Ceci Rod NP - Last Filed: 10/21/24 23:59> Tube placement confirmation: visualized tube passing through cords, equal breath sounds bilaterally, no breath sounds over epigastrium and confirmation by capnometry <Ceci Rod NP - Last Filed: 10/21/24 23:59> Patient tolerated procedure: well and no complications <Ceci Rod NP - Last Filed: 10/21/24 23:59> Intubation complications: none <Ceci Rod NP - Last Filed: 10/21/24 23:59>
[2024-10-21] MEDS: propofoL 1,000 MG/100 ML VIAL 22.99 MG IVCONT ×2 (20:20→22:47)
[2024-10-21 20:37] LABS: Mean Corpuscular HGB Conc 34.6 g/dl (31.0-36.0); Mean Corpuscular Hemoglobin 32.5 pg (27.0-33.0); Mean Corpuscular Volume 93.9 fL (80.0-98.0); Mean Platelet Volume 11.2 fL (9.4-12.4); Red Blood Count 2.77 X10*6/uL (4.60-5.80); Red Cell Distribution Width 20.7 % (11.0-16.0); White Blood Count 15.6 X10*3/uL (4.8-10.8)
[2024-10-21 20:38] LABS: Platelet Count 75 X10*3/uL (160-400)
--- NOTE | 2024-10-21 21:08 | W.PM.CCHP ---
Procedures Date of Service Date of Service: 10/22/24 <Ceci Rod NP - Last Filed: 10/22/24 00:02> 10/22/24 <Chapincito Arcos MD - Last Filed: 10/22/24 08:31> Central Line Placement Right IJ: Consent for Procedure: Emergent-no informed consent obtained (consent obtained by at the bedside) <BRIDGETTE Dye Last Filed: 10/22/24 00:02> Time out performed: Yes <BRIDGETTE Dye Last Filed: 10/22/24 00:02> Sterile Technique Used: Yes <BRIDGETTE Dye Last Filed: 10/22/24 00:02> Patient placed on monitor/pulse ox: Yes <BRIDGETTE Dye Last Filed: 10/22/24 00:02> prep: mask, gown and gloves <BRIDGETTE Dye Last Filed: 10/22/24 00:02> Central line prep: Chlorhexidine scrub and sterile drapes applied <Ceci Rod NP - Last Filed: 10/22/24 00:02> Ultrasound used for placement: Yes <BRIDGETTE Dye Last Filed: 10/22/24 00:02> Central line lumen inserted: triple <BRIDGETTE Dye Last Filed: 10/22/24 00:02> Post procedure: sutured in place, good blood return, all ports aspirated, flushed, capped and sterile dressing applied <BRIDGETTE Dye Last Filed: 10/22/24 00:02> Post procedure x-ray: tip of catheter in good position and no pneumothorax seen <BRIDGETTE Dye Last Filed: 10/22/24 00:02> Patient tolerated procedure: well and no complications <BRIDGETTE Dye Last Filed: 10/22/24 00:02> Complications: none <BRIDGETTE Dye Last Filed: 10/22/24 00:02>
--- NOTE | 2024-10-21 21:25 | PC.RT ---
ET tube advanced to 25 cm, checked by X ray
[2024-10-21] MEDS: Etomidate 20 MG/10 ML VIAL IVPUSH (22:00)
[2024-10-21] MEDS: Norepinephrine Bitartrate/D5W 8 MG/250 ML PLAST..BAG 53.89 MG IVCONT (22:07)
[2024-10-21 22:11] LABS: VBG Base Excess 7.6 mmol/L; VBG HCO3 30 mmol/L (22-26); VBG pCO2 36 mmHg; VBG pH 7.53 (7.32-7.43); VBG pO2 71 mmHg
[2024-10-21 22:45] LABS: Albumin Level 2.4 g/dL (3.5-5.0); Anion Gap 16 (12-20); Blood Urea Nitrogen 19 mg/dL (9-16); Calcium 7.8 mg/dL (8.4-10.2); Carbon Dioxide 24 mmol/L (22-29); Chloride 93 mmol/L (96-108); Creatinine Clr Calc Pharmacy 60.3; Estimated Glomerular Filt Rate 49; Glucose Random 145 mg/dL (60-115); Magnesium 1.9 mg/dL (1.6-2.6); Phosphorus 2.9 mg/dL (2.7-4.5); Sodium 130 mmol/L (135-145)
[2024-10-21 22:53] LABS: Venous Blood Gas Refer to POC result
[2024-10-21] MEDS: Potassium Chloride/H20 40 MEQ/100 ML PIGGYBACK 100 MEQ IV (23:09)
[2024-10-22] VITALS (49 sets, daily range): BP systolic 101–127; BP diastolic 37–63; PULSE 56–86; RESP 18–22; TEMP 34.8–36.9; O2SAT 95–100; BMI 33.1
[2024-10-22] MEDS: Albumin Human 25 % 100 ML IV ×3 (00:24→08:36)
[2024-10-22 01:29] LABS: Hematocrit 22.2 % (42.0-52.0); Hemoglobin 8.2 g/dl (14.0-18.0); Mean Corpuscular HGB Conc 36.9 g/dl (31.0-36.0); Mean Corpuscular Hemoglobin 33.7 pg (27.0-33.0); Mean Corpuscular Volume 91.4 fL (80.0-98.0); Mean Platelet Volume 9.8 fL (9.4-12.4); Red Blood Count 2.43 X10*6/uL (4.60-5.80); Red Cell Distribution Width 20.3 % (11.0-16.0); White Blood Count 15.8 X10*3/uL (4.8-10.8)
[2024-10-22 01:30] LABS: Platelet Count 80 X10*3/uL (160-400)
[2024-10-22] MEDS: Norepinephrine Bitartrate/D5W 8 MG/250 ML PLAST..BAG 53.89 MG IVCONT ×3 (02:06→10:07)
[2024-10-22] MEDS: propofoL 1,000 MG/100 ML VIAL 28.74 MG IVCONT ×2 (02:24→05:27)
--- NOTE | 2024-10-22 03:05 | PC.NURSE ---
Addendum entered by Fransisco Diamond RN 10/22/24 04:34: INCONTINANT BLOODY URINE...BLADDER SCANNED [phone]...PROVIDER AWARE..? URINE VS ASCITES READING..PREVIOUSLY UNABLE TO INSERT MURPHY CATHETER PER PROVIDER REQUEST TO ATTEMPT..PROVIDER TO CONSULT UROLOGY EARLY AM Original Note: CARE ASSUMED 7PM...PATIENT AWAKE...PRECIDEX DRIP 0.5 MCG/KG/HR AT SHIFT CHANGE...O2 4 L/M VIA MASK....WRETCHING THEN VOMITING DARK RED EMESIS..ANXIOUS/RESTLESS...DECREASED SAO2...PRECIDEX DRIP TITRATED PER DEC..O2 TITRATED FROM 4 L/M TO 6 L/M TO 11 L/M VIA MASK...DROWSY TO SOMNOLENT...PRECIDEX DRIP WEANED...TRIALED ON HI-CAMILLE CANNULA PER PROVIDER..LABOURED RESPIRATORY EFFORT....DECISION TO INTUBATE PER PROVIDER..SUCTIONED LARGE AMOUNT DARK RED BLOOD FROM OROPHARYNX PRIOR TO INTUBATION..ETOMIDATE GIVEN FOR INTUBATION..INTUBATED 7.5 ETT AT 21CM...ETT ADVANCED TO 25CM POST REVIEW OF CXR...RIGHT JUGULAR TLC PLACED BY PROVIDER....PRECIDEX DRIP HELD AND SEDATED WITH PROPOFOL PER DEC....VCV VENT SUPPORT....REMAINS WITH ANASARCAFROM FEET TO CHEST...MARKED PENILE EDEMA..CONTINUES BLOODY URINE INCONTINANCE....EPISODES X2 NON-SUSTAINED V.TACH..STAT LABS DRAWN...KCL 40MEQ IV GIVEN PER PROVIDER... UPDATED R/T PATIENT STATUS BY PHONE BY PROVIDER.../PATIENT'S MOTHER AND PATIENT'S SON JOE ARRIVED AND AT BEDSIDE AND UPDATED R/T TO PATIENT STATUS...
[2024-10-22] MEDS: fentaNYL citrate/PF 100 MCG/2 ML VIAL 50 MCG IVPUSH (03:57)
[2024-10-22 05:27] LABS: VBG Base Excess 7.6 mmol/L; VBG HCO3 30 mmol/L (22-26); VBG pCO2 35 mmHg; VBG pH 7.53 (7.32-7.43); VBG pO2 64 mmHg
[2024-10-22] MEDS: Pantoprazole Sodium 40 MG/10 ML VIAL IVPUSH ×2 (05:35→15:24)
[2024-10-22 05:59] LABS: MANUAL DIFF FLAG NO
[2024-10-22 06:09] LABS: Venous Blood Gas Refer to POC result
[2024-10-22 06:21] LABS: Basophils Absolute Auto 0.1 X10*3/uL (0.0-0.2); Basophils Percent Auto 0.3 % (0-2); Eosinophils Absolute Auto 0.2 X10*3/uL (0.0-0.4); Eosinophils Percent Auto 1.2 % (0-4); Hematocrit 22.4 % (42.0-52.0); Hemoglobin 8.1 g/dl (14.0-18.0); Imm Gran Abs Auto 0.16 X10*3/uL (0.00-0.03); Lymphocytes Absolute Auto 2.5 X10*3/uL (1.2-4.9); Lymphocytes Percent Auto 15.4 % (20-40); Mean Corpuscular HGB Conc 36.2 g/dl (31.0-36.0); Mean Corpuscular Hemoglobin 33.5 pg (27.0-33.0); Mean Corpuscular Volume 92.6 fL (80.0-98.0); Mean Platelet Volume 9.7 fL (9.4-12.4); Monocytes Absolute Auto 1.2 X10*3/uL (0.1-1.2); Monocytes Percent Auto 7.2 % (2-11); Neutrophils Absolute Auto 12.4 x10*3/uL (2.0-8.3); Neutrophils Percent Auto 74.9 % (45-73); Red Blood Count 2.42 X10*6/uL (4.60-5.80); Red Cell Distribution Width 20.2 % (11.0-16.0); White Blood Count 16.5 X10*3/uL (4.8-10.8)
[2024-10-22 06:25] LABS: Platelet Count 81 X10*3/uL (160-400)
[2024-10-22 06:26] LABS: Alanine Aminotransferase < 6 U/L (0-40); Albumin Level 2.8 g/dL (3.5-5.0); Alkaline Phosphatase 110 U/L (39-117); Anion Gap 16 (12-20); Aspartate Amino Transferase 70 U/L (5-37); Bilirubin Total 11.6 mg/dL (0.0-1.0); Blood Urea Nitrogen 20 mg/dL (9-16); Calcium 8.1 mg/dL (8.4-10.2); Carbon Dioxide 24 mmol/L (22-29); Chloride 94 mmol/L (96-108); Estimated Glomerular Filt Rate 46; Glucose Random 150 mg/dL (60-115); Magnesium 1.8 mg/dL (1.6-2.6); Phosphorus 2.4 mg/dL (2.7-4.5); Sodium 131 mmol/L (135-145); Total Protein 5.9 g/dL (6.5-8.0)
[2024-10-22] MEDS: Potassium Chloride/H20 40 MEQ/100 ML PIGGYBACK 50 MEQ IV (07:34)
[2024-10-22] MEDS: Chlorhexidine Gluc Oral Rinse 15 ML MOUTHWASH BUCCAL ×3 (07:34→20:16)
[2024-10-22] MEDS: 0.9 % Sodium Chloride Flush 3 ML SYRINGE IVFLUSH ×2 (07:35→13:59)
[2024-10-22] MEDS: Octreotide Acetate 500 MCG in 0.9 % Sodium Chloride 500 ML 50.1 MCG IVCONT ×2 (08:03→17:05)
--- NOTE | 2024-10-22 08:31 | P.PNCC_ITS ---
Subjective Subjective Date of Service: 10/22/24 Critical Care Time (minutes): 35 Comment: Overnight patient and hypoxemic, kelechi blood noted in his pharynx and mouth so he was intubated and placed on ventilator support. Post intubation patient had episodes of V-tach for about 39 beats He is on Levophed for vasopressor support, we will switch to phenylephrine On propofol for sedation Physical Exam 2 Vital Signs: Vital Signs: Last Vital Signs Temp 98.5 F 10/22/24 08:00 Pulse 86 10/22/24 08:00 Resp 18 10/22/24 08:00 BP 109/50 L 10/22/24 08:00 Pulse Ox 96 10/22/24 08:00 O2 Del Method Mechanical Ventil ation 10/22/24 08:00 O2 Flow Rate 11 10/21/24 19:55 FiO2 50 10/22/24 08:00 BMI result Body Mass Index 33.1 General: Chronically ill and chronically tired, icteric, cachectic old looking patient unresponsive connected to the ventilator Nutritional Appearance: Poorly nourished and overweight Eyes: appearance normal, both eyes and all related structures; Alignment and Position: alignment normal and position normal Neck: No lymphadenopathy, no thyromegaly Resp: bilateral air entry equal, occasional added sounds present Cardio: Regular rate, regular rhythm; Heart sounds: S1 normal heart sound present and S2 normal heart sound present GI: soft, distended, fluid thrill present, no hepatosplenomegaly : bladder normal to inspection, bladder normal to palpation, no renal angle tenderness Skin: no rashes or lesions noted and elasticity normal Neuro: Sedated, no focal deficits Objective Data Labs 10/22/24 09:17 10/22/24 05:10 Labs: Laboratory Results - last 24 hr 10/21/24 10/21/24 10/21/24 00:59 12:40 20:29 WBC 13.9 H 15.6 H RBC 2.68 L D 2.77 L Hgb 8.8 L D 9.0 L Hct 25.1 L D 26.0 L MCV 93.7 D 93.9 MCH 32.8 32.5 MCHC 35.1 34.6 RDW 19.8 H 20.7 H Plt Count 82 L 75 L MPV 10.2 11.2 Immature Gran % (Auto) Neut % (Auto) Lymph % (Auto) Rosebud % (Auto) Eos % (Auto) Baso % (Auto) Lymph # (Auto) [place]bud # (Auto) Eos # (Auto) Baso # (Auto) Abs Immat Gran (auto) Absolute Neuts (auto) Absolute Nucleated RBC 0.000 0.000 Nucleated RBC % (auto) 0.0 0.0 PT 23.9 H D INR 2.0 H VBG pH VBG pCO2 VBG pO2 VBG HCO3 VBG O2 Saturation VBG Base Excess Sodium 130 L Potassium 3.4 D Chloride 92 L Carbon Dioxide 24 Anion Gap 17 BUN 16 Creatinine 1.42 H Estim Creat Clear Calc 62.8 Estimated GFR 51 Random Glucose 108 Calcium 7.9 L Phosphorus Magnesium Total Bilirubin AST ALT Alkaline Phosphatase Total Protein Albumin Blood Type A Positive Antibody Screen NEGATIVE Crossmatch See Detail 10/21/24 10/21/24 10/22/24 22:00 22:06 01:22 WBC 15.8 H RBC 2.43 L Hgb 8.2 L Hct 22.2 L MCV 91.4 MCH 33.7 H MCHC 36.9 H RDW 20.3 H Plt Count 80 L MPV 9.8 Immature Gran % (Auto) Neut % (Auto) Lymph % (Auto) Rosebud % (Auto) Eos % (Auto) Baso % (Auto) Lymph # (Auto) Rosebud # (Auto) Eos # (Auto) Baso # (Auto) Abs Immat Gran (auto) Absolute Neuts (auto) Absolute Nucleated RBC 0.000 Nucleated RBC % (auto) 0.0 PT INR VBG pH 7.53 H VBG pCO2 36 VBG pO2 71 VBG HCO3 30 H VBG O2 Saturation 97.0 VBG Base Excess 7.6 Sodium 130 L Potassium 3.0 L Chloride 93 L Carbon Dioxide 24 Anion Gap 16 BUN 19 H Creatinine 1.48 H Estim Creat Clear Calc 60.3 Estimated GFR 49 Random Glucose 145 H Calcium 7.8 L Phosphorus 2.9 Magnesium 1.9 Total Bilirubin AST ALT Alkaline Phosphatase Total Protein Albumin 2.4 L Blood Type Antibody Screen Crossmatch 10/22/24 10/22/24 05:10 05:16 WBC 16.5 H RBC 2.42 L Hgb 8.1 L Hct 22.4 L MCV 92.6 MCH 33.5 H MCHC 36.2 H RDW 20.2 H Plt Count 81 L MPV 9.7 Immature Gran % (Auto) 1.0 H Neut % (Auto) 74.9 H Lymph % (Auto) 15.4 L Rosebud % (Auto) 7.2 Eos % (Auto) 1.2 Baso % (Auto) 0.3 Lymph # (Auto) 2.5 [place]bud # (Auto) 1.2 Eos # (Auto) 0.2 Baso # (Auto) 0.1 Abs Immat Gran (auto) 0.16 H Absolute Neuts (auto) 12.4 H Absolute Nucleated RBC 0.000 Nucleated RBC % (auto) 0.0 PT INR VBG pH 7.53 H VBG pCO2 35 VBG pO2 64 VBG HCO3 30 H VBG O2 Saturation 93.0 VBG Base Excess 7.6 Sodium 131 L Potassium 3.0 L Chloride 94 L Carbon Dioxide 24 Anion Gap 16 BUN 20 H Creatinine 1.56 H Estim Creat Clear Calc 58.0 Estimated GFR 46 Random Glucose 150 H Calcium 8.1 L Phosphorus 2.4 L Magnesium 1.8 Total Bilirubin 11.6 H AST 70 H ALT < 6 Alkaline Phosphatase 110 Total Protein 5.9 L Albumin 2.8 L Blood Type Antibody Screen Crossmatch Progress Note: A&P Assessment and plan (1) Depression: Status: Acute (2) Hypertension: Status: Acute (3) Hyperlipidemia: Status: Acute (4) Hyponatremia: Status: Acute (5) Acute upper gastrointestinal bleeding: Status: Acute (6) Acute upper gastrointestinal bleeding: Status: Acute (7) Esophageal varices: Status: Acute (8) Portal hypertensive gastropathy: Status: Acute (9) Alcoholic cirrhosis of liver with ascites: Status: Acute (10) Acute GI bleeding: Status: Acute (11) NATHANIEL (acute kidney injury): Status: Acute (12) Hypokalemia: Status: Acute (13) Acute lactic acidosis: Status: Acute (14) Acidosis, lactic: Status: Acute (15) Encephalopathy: Status: Acute (16) Acute respiratory failure with hypoxia: Status: Acute Plan Neuro: Acute encephalopathy possibly due to metabolic encephalopathy On propofol for sedation, as needed fentanyl for analgesia Close neurological status monitoring in the ICU every hour Cardiac: Shock: Possibly secondary to combination of cirrhotic physiology and hemorrhagic shock On Levophed support, we will switch to phenylephrine given episodes of V-tach Had 39 beat V-tach last night Respiratory: Acute hypoxemic respiratory failure due to aspiration pneumonia from hematemesis Currently on ventilator support On PRVC mode FiO2 50%, PEEP 5, TV 400, RR 20 Peak pressures and plateau pressures are under the curve Ventilator management bundle with head end elevation, aspiration precaution, chlorhexidine mouthwash, daily awakening trials, daily spontaneous breathing trials GI: Upper GI bleed: Secondary to esophagitis and esophageal varices Status post endoscopic variceal band ligation yesterday Continued to have further bleeding Currently on octreotide drip and pantoprazole If there is consistently further drop in hemoglobin we will transfer him out to a higher center Decompensated liver cirrhosis: We will possibly do a paracentesis Has hepatic encephalopathy esophageal varices, ascites Renal: Acute kidney injury possibly secondary to ATN from acute blood loss and hemorrhagic shock Baseline creatinine normal, creatinine today is We will closely monitor I's and O's Avoid nephrotoxic medications Heme: Chronic anemia, closely monitor H&H, transfuse for hemoglobin less than 7 grams/deciliter Endocrine: Blood sugars under control Sliding scale insulin as needed Infectious disease: Pancultures negative so far We will start on ceftriaxone for GI prophylaxis, 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 There is no concern for sepsis or septic shock Total critical care time spent is about 45 minutes on managing this critically ill patient with multiple organ failures including acute encephalopathy, hemorrhagic shock, acute hypoxemic respiratory failure, acute kidney injury, decompensated liver cirrhosis. Time spent is on ventilator management, sedation management, changing ventilator settings, close hemodynamic monitoring, vasopressor management, managing episodes of tachycardia, review of labs and images at this time is excluding any procedural time Quality Stroke Does the patient have a stroke diagnosis?: No VTE Prior VTE?: No VTE Risk Level:: Medical - moderate - high VTE Device Contraindication: Treatment Not Indicated VTE Drug Contraindication: Treatment Not Indicated
[2024-10-22] MEDS: propofoL 1,000 MG/100 ML VIAL 22.99 MG IVCONT ×4 (09:20→20:45)
[2024-10-22] MEDS: cefTRIAXone sodium 2 GM VIAL IVPUSH (09:21)
[2024-10-22 09:26] LABS: Hematocrit 21.5 % (42.0-52.0); Hemoglobin 7.8 g/dl (14.0-18.0); Mean Corpuscular HGB Conc 36.3 g/dl (31.0-36.0); Mean Corpuscular Hemoglobin 33.5 pg (27.0-33.0); Mean Corpuscular Volume 92.3 fL (80.0-98.0); Mean Platelet Volume 10.1 fL (9.4-12.4); Red Blood Count 2.33 X10*6/uL (4.60-5.80); Red Cell Distribution Width 20.2 % (11.0-16.0); White Blood Count 14.8 X10*3/uL (4.8-10.8)
[2024-10-22 09:27] LABS: Platelet Count 72 X10*3/uL (160-400)
[2024-10-22 09:31] LABS: INTERNATIONAL NORM RATIO 2.7 (0.9-1.1); Prothrombin Time 31.1 SEC (10.9-12.4)
--- NOTE | 2024-10-22 09:46 | P.CDIM_ITS ---
PROVIDER RESPONSE TEXT: To clarify, the appropriate diagnosis supported by the clinical indicators: Other (explain): last echo normal QUERY TEXT: PHYSICIAN'S DOCUMENTATION REQUEST Date of Query: 10/22/2024 09:21 AM EST Patient Name: Leandro Rico Admit Date: 10/21/2024 Dear Chapincito Arcos MD, A review of the medical record indicates additional documentation may be needed. Please review below and update the documentation accordingly. Clinical Indicators: ED & H&P 10/21 - Past medical history: Congestive heart failure Home medication: Furosemide 40 mg Tab History of Echo performed. Please provide further specificity regarding the most likely type and acuity of CHF documented within the medical record, if known: Systolic Please specify if Acute, Chronic, or Acute on chronic, or Unable to determine Diastolic Please specify if Acute, Chronic, or Acute on chronic, or Unable to determine Combined Systolic/Diastolic Please specify if Acute, Chronic, or Acute on chronic, or Unable to determine Other (explain) Clinically unable to determine (explain) Thank you, Shabana Camejo, CCS, CDIS Use of terms such as suspected, likely, concern for, or probable (associated with a specific diagnosi s that is being evaluated, monitored, or treated as if it exists) are acceptable and can be coded in the inpatient se tting, when documented at the time of discharge. Please use your independent medical judgment in providing your response. THIS QUERY IS PART OF THE PERMANENT MEDICAL RECORD
--- NOTE | 2024-10-22 09:52 | MHC.CM.PN ---
Pt continues care in ICU: s/p EGD with bleeding interventions preformed: remains intubated. Plan is to monitor for s/sx of bleeding - if continunes, pt may need tx to [facility] for intervention. CM to follow
[2024-10-22] MEDS: Linezolid/D5W 600 MG/300 ML PIGGYBACK 300 MG IV ×2 (10:40→21:58)
[2024-10-22] MEDS: Norepinephrine Bitartrate/D5W 8 MG/250 ML PLAST..BAG 50.3 MG IVCONT ×2 (14:43→19:19)
[2024-10-22 15:28] LABS: Appearance Urine Turbid; Color Urine RED; Specific Gravity - Urine <= 1.005 (1.005-1.025); UMIC TRIGGER UACC YES; Urine Blood Large (3+) (Negative)
[2024-10-22 15:57] LABS: Bacteria Urine 2+ (None Seen); Hyaline Casts Urine 0-2 /LPF (0-2); UACC Culture Trigger YES; WBC Urine >50 /HPF (0-5)
[2024-10-22 16:02] LABS: RBC Urine >20 /HPF (0-2)
[2024-10-22 17:47] LABS: Hematocrit 21.1 % (42.0-52.0); Hemoglobin 7.5 g/dl (14.0-18.0); Mean Corpuscular HGB Conc 35.5 g/dl (31.0-36.0); Mean Platelet Volume 10.1 fL (9.4-12.4); Red Blood Count 2.27 X10*6/uL (4.60-5.80); Red Cell Distribution Width 19.9 % (11.0-16.0); White Blood Count 12.5 X10*3/uL (4.8-10.8)
[2024-10-22 17:49] LABS: Platelet Count 62 X10*3/uL (160-400)
--- NOTE | 2024-10-22 20:03 | ECG_ITS ---
Test Reason : Rhythm check Blood Pressure : */* mmHG Vent. Rate : 71 BPM Atrial Rate : 71 BPM P-R Int : 146 ms QRS Dur : 110 ms QT Int : 450 ms P-R-T Axes : 40 -22 33 degrees QTcB Int : 490 ms Normal sinus rhythm Inferior infarct , age undetermined Prolonged QT Abnormal ECG When compared with ECG of 16-Oct-2024 01:41, No significant changes seen Referred By: Ceci Rod Electronically Signed By: COREEN BRADEN
[2024-10-23] VITALS (49 sets, daily range): BP systolic 84–121; BP diastolic 42–73; PULSE 64–85; RESP 15–21; TEMP 34.3–37.1; O2SAT 91–99; BMI 33.1
[2024-10-23] MEDS: propofoL 1,000 MG/100 ML VIAL 22.99 MG IVCONT ×7 (00:04→23:34)
[2024-10-23] MEDS: Norepinephrine Bitartrate/D5W 8 MG/250 ML PLAST..BAG 46.7 MG IVCONT (00:05)
[2024-10-23] MEDS: 0.9 % Sodium Chloride Flush 3 ML SYRINGE IVFLUSH ×4 (00:06→23:37)
[2024-10-23 01:28] LABS: Hemoglobin 7.5 g/dl (14.0-18.0); Mean Corpuscular HGB Conc 36.1 g/dl (31.0-36.0); Mean Corpuscular Hemoglobin 33.3 pg (27.0-33.0); Mean Corpuscular Volume 92.4 fL (80.0-98.0); Mean Platelet Volume 10.2 fL (9.4-12.4); Red Blood Count 2.25 X10*6/uL (4.60-5.80); Red Cell Distribution Width 19.9 % (11.0-16.0); White Blood Count 11.7 X10*3/uL (4.8-10.8)
[2024-10-23 01:32] LABS: Hematocrit 20.8 % (42.0-52.0); Platelet Count 59 X10*3/uL (160-400)
[2024-10-23 01:46] LABS: Anion Gap 16 (12-20); Blood Urea Nitrogen 19 mg/dL (9-16); Calcium 8.2 mg/dL (8.4-10.2); Carbon Dioxide 24 mmol/L (22-29); Chloride 93 mmol/L (96-108); Creatinine Clr Calc Pharmacy 51.1; Estimated Glomerular Filt Rate 40; Glucose Random 166 mg/dL (60-115); Potassium 2.8 mmol/L (3.3-5.1); Sodium 130 mmol/L (135-145)
[2024-10-23] MEDS: Octreotide Acetate 500 MCG in 0.9 % Sodium Chloride 500 ML 50.1 MCG IVCONT ×3 (02:27→22:19)
[2024-10-23] MEDS: Potassium Chloride/H20 40 MEQ/100 ML PIGGYBACK 50 MEQ IV (03:45)
[2024-10-23] MEDS: Potassium Phosphate/NS 15 MMOL/250 ML PLAST..BAG 62.5 MMOL IV ×3 (03:45→13:22)
[2024-10-23] MEDS: Norepinephrine Bitartrate/D5W 8 MG/250 ML PLAST..BAG 43.11 MG IVCONT ×3 (04:47→16:17)
[2024-10-23 05:17] LABS: VBG Base Excess 7.2 mmol/L; VBG HCO3 29 mmol/L (22-26); VBG pCO2 30 mmHg; VBG pH 7.58 (7.32-7.43); VBG pO2 53 mmHg
[2024-10-23 05:22] LABS: Venous Blood Gas Refer to POC result
[2024-10-23 05:37] LABS: MANUAL DIFF FLAG NO
[2024-10-23 05:39] LABS: Basophils Percent Auto 0.3 % (0-2); Eosinophils Absolute Auto 0.4 X10*3/uL (0.0-0.4); Eosinophils Percent Auto 2.9 % (0-4); Hemoglobin 7.3 g/dl (14.0-18.0); Imm Gran Abs Auto 0.12 X10*3/uL (0.00-0.03); Lymphocytes Absolute Auto 1.3 X10*3/uL (1.2-4.9); Lymphocytes Percent Auto 10.9 % (20-40); Mean Corpuscular HGB Conc 34.8 g/dl (31.0-36.0); Mean Corpuscular Hemoglobin 32.4 pg (27.0-33.0); Mean Corpuscular Volume 93.3 fL (80.0-98.0); Mean Platelet Volume 10.2 fL (9.4-12.4); Monocytes Absolute Auto 0.9 X10*3/uL (0.1-1.2); Monocytes Percent Auto 7.1 % (2-11); Neutrophils Absolute Auto 9.6 x10*3/uL (2.0-8.3); Neutrophils Percent Auto 77.8 % (45-73); Red Blood Count 2.25 X10*6/uL (4.60-5.80); Red Cell Distribution Width 19.9 % (11.0-16.0); White Blood Count 12.3 X10*3/uL (4.8-10.8)
[2024-10-23 05:43] LABS: Platelet Count 60 X10*3/uL (160-400)
[2024-10-23 05:57] LABS: Alanine Aminotransferase 27 U/L (0-40); Albumin Level 2.9 g/dL (3.5-5.0); Anion Gap 14 (12-20); Aspartate Amino Transferase 186 U/L (5-37); Bilirubin Total 9.3 mg/dL (0.0-1.0); Blood Urea Nitrogen 19 mg/dL (9-16); Calcium 8.2 mg/dL (8.4-10.2); Carbon Dioxide 26 mmol/L (22-29); Chloride 93 mmol/L (96-108); Creatinine Clr Calc Pharmacy 53.6; Estimated Glomerular Filt Rate 42; Glucose Random 155 mg/dL (60-115); Magnesium 1.8 mg/dL (1.6-2.6); Phosphorus 2.2 mg/dL (2.7-4.5); Potassium 3.3 mmol/L (3.3-5.1); Sodium 130 mmol/L (135-145); Total Protein 5.8 g/dL (6.5-8.0)
[2024-10-23 06:05] LABS: Alkaline Phosphatase 103 U/L (39-117)
[2024-10-23] MEDS: Pantoprazole Sodium 40 MG/10 ML VIAL IVPUSH ×2 (06:05→15:59)
[2024-10-23] MEDS: Chlorhexidine Gluc Oral Rinse 15 ML MOUTHWASH BUCCAL ×3 (08:33→20:41)
[2024-10-23] MEDS: Albumin Human 25 % 100 ML IV ×3 (08:34→17:32)
[2024-10-23] MEDS: cefTRIAXone sodium 2 GM VIAL IVPUSH (08:35)
--- NOTE | 2024-10-23 08:43 | P.PNCC_ITS ---
Subjective Subjective Date of Service: 10/23/24 Critical Care Time (minutes): 35 Comment: Remains on ventilator support, with some bloody secretions coming out of the mouth that needs to be suctioned Hemoglobin remained around 7s for the past 24 hours Physical Exam 2 Vital Signs: Vital Signs: Last Vital Signs Temp 97.4 F 10/23/24 08:00 Pulse 68 10/23/24 08:00 Resp 18 10/23/24 08:00 BP 115/55 L 10/23/24 08:00 Pulse Ox 96 10/23/24 08:00 O2 Del Method Mechanical Ventil ation 10/23/24 08:00 O2 Flow Rate 11 10/21/24 19:55 FiO2 30 10/23/24 08:00 BMI result Body Mass Index 33.1 General: Cachectic, chronically ill appearing, icteric, moribund elderly male unresponsive connected to the ventilator Nutritional Appearance: well nourished and overweight Eyes: appearance normal, both eyes and all related structures; Alignment and Position: alignment normal and position normal, icteric Neck: No lymphadenopathy, no thyromegaly Resp: bilateral air entry equal, occasional added sounds present Cardio: Regular rate, regular rhythm; Heart sounds: S1 normal heart sound present and S2 normal heart sound present GI: soft, distended, no guarding, no hepatosplenomegaly : bladder normal to inspection, bladder normal to palpation, no renal angle tenderness Skin: no rashes or lesions noted and elasticity normal Neuro: Unable to do neuro examination h as he is sedated Objective Data Labs 10/23/24 05:15 10/23/24 05:15 Labs: Laboratory Results - last 24 hr 10/21/24 10/22/24 10/22/24 00:59 09:17 15:19 WBC 14.8 H RBC 2.33 L Hgb 7.8 L Hct 21.5 L MCV 92.3 MCH 33.5 H MCHC 36.3 H RDW 20.2 H Plt Count 72 L MPV 10.1 Immature Gran % (Auto) Neut % (Auto) Lymph % (Auto) [place] % (Auto) Eos % (Auto) Baso % (Auto) Lymph # (Auto) [place] # (Auto) Eos # (Auto) Baso # (Auto) Abs Immat Gran (auto) Absolute Neuts (auto) Absolute Nucleated RBC 0.000 Nucleated RBC % (auto) 0.0 PT 31.1 H D INR 2.7 H VBG pH VBG pCO2 VBG pO2 VBG HCO3 VBG O2 Saturation VBG Base Excess Sodium Potassium Chloride Carbon Dioxide Anion Gap BUN Creatinine Estim Creat Clear Calc Estimated GFR Random Glucose Calcium Phosphorus Magnesium Total Bilirubin AST ALT Alkaline Phosphatase Total Protein Albumin Urine Color RED Urine Appearance Turbid Urine pH 7.0 Ur Specific [place] <= 1.005 Urine Protein See Note Urine Glucose (UA) See Note Urine Ketones See Note Urine Blood Large (3+) H Urine Nitrite See Note Ur Leukocyte Esterase See Note Urine RBC >20 H Urine WBC >50 H Ur Squamous Epith Cells 6-10 Urine Bacteria 2+ Hyaline Casts 0-2 Blood Type A Positive Antibody Screen NEGATIVE Crossmatch See Detail 10/22/24 10/23/24 10/23/24 17:33 01:13 05:04 WBC 12.5 H 11.7 H RBC 2.27 L 2.25 L Hgb 7.5 L 7.5 L Hct 21.1 L 20.8 L* MCV 93.0 92.4 MCH 33.0 33.3 H MCHC 35.5 36.1 H RDW 19.9 H 19.9 H Plt Count 62 L 59 L MPV 10.1 10.2 Immature Gran % (Auto) Neut % (Auto) Lymph % (Auto) [place] % (Auto) Eos % (Auto) Baso % (Auto) Lymph # (Auto) [place] # (Auto) Eos # (Auto) Baso # (Auto) Abs Immat Gran (auto) Absolute Neuts (auto) Absolute Nucleated RBC 0.000 0.000 Nucleated RBC % (auto) 0.0 0.0 PT INR VBG pH 7.58 H VBG pCO2 30 VBG pO2 53 VBG HCO3 29 H VBG O2 Saturation 89.0 VBG Base Excess 7.2 Sodium 130 L Potassium 2.8 L* Chloride 93 L Carbon Dioxide 24 Anion Gap 16 BUN 19 H Creatinine 1.77 H Estim Creat Clear Calc 51.1 Estimated GFR 40 Random Glucose 166 H Calcium 8.2 L Phosphorus Magnesium Total Bilirubin AST ALT Alkaline Phosphatase Total Protein Albumin Urine Color Urine Appearance Urine pH Ur Specific [place] Urine Protein Urine Glucose (UA) Urine Ketones Urine Blood Urine Nitrite Ur Leukocyte Esterase Urine RBC Urine WBC Ur Squamous Epith Cells Urine Bacteria Hyaline Casts Blood Type Antibody Screen Crossmatch 10/23/24 05:15 WBC 12.3 H RBC 2.25 L Hgb 7.3 L Hct 21.0 L* MCV 93.3 MCH 32.4 MCHC 34.8 RDW 19.9 H Plt Count 60 L MPV 10.2 Immature Gran % (Auto) 1.0 H Neut % (Auto) 77.8 H Lymph % (Auto) 10.9 L [place] % (Auto) 7.1 Eos % (Auto) 2.9 Baso % (Auto) 0.3 Lymph # (Auto) 1.3 [place] # (Auto) 0.9 Eos # (Auto) 0.4 Baso # (Auto) 0.0 Abs Immat Gran (auto) 0.12 H Absolute Neuts (auto) 9.6 H Absolute Nucleated RBC 0.000 Nucleated RBC % (auto) 0.0 PT INR VBG pH VBG pCO2 VBG pO2 VBG HCO3 VBG O2 Saturation VBG Base Excess Sodium 130 L Potassium 3.3 Chloride 93 L Carbon Dioxide 26 Anion Gap 14 BUN 19 H Creatinine 1.69 H Estim Creat Clear Calc 53.6 Estimated GFR 42 Random Glucose 155 H Calcium 8.2 L Phosphorus 2.2 L Magnesium 1.8 Total Bilirubin 9.3 H AST 186 H ALT 27 Alkaline Phosphatase 103 Total Protein 5.8 L Albumin 2.9 L Urine Color Urine Appearance Urine pH Ur Specific [place] Urine Protein Urine Glucose (UA) Urine Ketones Urine Blood Urine Nitrite Ur Leukocyte Esterase Urine RBC Urine WBC Ur Squamous Epith Cells Urine Bacteria Hyaline Casts Blood Type Antibody Screen Crossmatch Progress Note: A&P Assessment and plan (1) Anxiety: Status: Acute (2) Depression: Status: Acute (3) Hypertension: Status: Acute (4) Hyperlipidemia: Status: Acute (5) Hyponatremia: Status: Acute (6) Acute upper gastrointestinal bleeding: Status: Acute (7) Esophageal varices: Status: Acute (8) Acute GI bleeding: Status: Acute (9) Abdominal pain: Status: Acute (10) NATHANIEL (acute kidney injury): Status: Acute (11) Acute lactic acidosis: Status: Acute (12) Acidosis, lactic: Status: Acute (13) Acute hyponatremia: Status: Acute Plan Neuro: Acute encephalopathy possibly due to metabolic encephalopathy On propofol for sedation, as needed fentanyl for analgesia Close neurological status monitoring in the ICU every hour Cardiac: Shock: Possibly secondary to combination of cirrhotic physiology and hemorrhagic shock On Levophed support, we will switch to phenylephrine given episodes of V-tach No further episodes of ventricular arrhythmias Prolonged QT: will replace more Kcl and Mg will repeat labs in noon will stop ondansetron Respiratory: Acute hypoxemic respiratory failure due to aspiration pneumonia from hematemesis Currently on ventilator support On PRVC mode FiO2 25%, PEEP 5, TV 400, RR 20 Peak pressures and plateau pressures are under the curve Ventilator management bundle with head end elevation, aspiration precaution, chlorhexidine mouthwash, daily awakening trials, daily spontaneous breathing trials GI: Upper GI bleed: Secondary to esophagitis and esophageal varices Status post endoscopic variceal band ligation Hemoglobin remained stable over the past 24 hours Currently on octreotide drip and pantoprazole If there is consistently further drop in hemoglobin we will transfer him out to a higher center Decompensated liver cirrhosis: We will possibly do a paracentesis Has hepatic encephalopathy esophageal varices, ascites Renal: Acute kidney injury possibly secondary to ATN from acute blood loss and hemorrhagic shock, creatinine 1.69 today Baseline creatinine normal, creatinine today is We will closely monitor I's and O's Avoid nephrotoxic medications We will do albumin and Lasix as he has significant edema in his dependent areas Heme: Chronic anemia, closely monitor H&H, transfuse for hemoglobin less than 7 grams/deciliter 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 Critical care time spent is about 50 minutes on ventilator management, changing ventilator settings, sedation management, close hemodynamic monitoring, vasopressor management, review of labs and images at this time is excluding any procedural time Quality Stroke Does the patient have a stroke diagnosis?: No VTE Prior VTE?: No VTE Risk Level:: Medical - moderate - high VTE Device Contraindication: Treatment Not Indicated VTE Drug Contraindication: Treatment Not Indicated
[2024-10-23] MEDS: Linezolid/D5W 600 MG/300 ML PIGGYBACK 300 MG IV ×2 (09:53→20:41)
--- NOTE | 2024-10-23 11:02 | MHC.CLN ---
PT REMAINS INTUBATED AND SEDATED DISCUSSED AT ROUNDS WITH MD PLAN TO START TPN TODAY REVIEWED LABS DISCUSSED WITH PHARMACY RECOMMEND TPN AT 40ML/HR TO PROVIDE 682KCALS (1289KCALS WITH SEDATION), 144G DEXTROSE, 48G PROTEIN REPLETE LYTES NEEDED SEE ALSO FULL CLINICAL NUTRITION ASSESSMENT
[2024-10-23] MEDS: Magnesium Sulfate/H2O 2 GM/50 ML PIGGYBACK IV (11:15)
[2024-10-23] MEDS: Furosemide 100 MG/10 ML VIAL 60 MG IVPUSH ×2 (11:18→17:31)
[2024-10-23] MEDS: Potassium Chloride/H20 40 MEQ/100 ML PIGGYBACK 100 MEQ IV (11:18)
[2024-10-23 12:38] LABS: Ammonia 59 umol/L (13-55)
[2024-10-23 12:51] LABS: INTERNATIONAL NORM RATIO 2.2 (0.9-1.1); Prothrombin Time 25.6 SEC (10.9-12.4)
[2024-10-23 12:55] LABS: Alanine Aminotransferase 46 U/L (0-40); Albumin Level 3.2 g/dL (3.5-5.0); Alkaline Phosphatase 103 U/L (39-117); Anion Gap 17 (12-20); Aspartate Amino Transferase 206 U/L (5-37); Blood Urea Nitrogen 16 mg/dL (9-16); Calcium 8.1 mg/dL (8.4-10.2); Carbon Dioxide 26 mmol/L (22-29); Chloride 95 mmol/L (96-108); Estimated Glomerular Filt Rate 46; Glucose Random 165 mg/dL (60-115); Sodium 134 mmol/L (135-145); Total Protein 5.9 g/dL (6.5-8.0)
--- NOTE | 2024-10-23 13:31 | MHC.CM.PN ---
Pt remains intubated in ICU: Anasarca, decompensated cirrhosis and NATHANIEL: will have paracentesis and continue on current treatment regimen. No plans to extubate. CM to follow
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
[2024-10-23] MEDS: Parenteral Nutrition 960 ML 40 ML IV (21:21)
[2024-10-23] MEDS: Norepinephrine Bitartrate/D5W 8 MG/250 ML PLAST..BAG 35.93 MG IVCONT (21:25)
[2024-10-23 22:44] LABS: Hemoglobin 7.2 g/dl (14.0-18.0); Mean Corpuscular HGB Conc 34.8 g/dl (31.0-36.0); Mean Corpuscular Hemoglobin 32.9 pg (27.0-33.0); Mean Corpuscular Volume 94.5 fL (80.0-98.0); Mean Platelet Volume 10.1 fL (9.4-12.4); Red Blood Count 2.19 X10*6/uL (4.60-5.80); Red Cell Distribution Width 19.9 % (11.0-16.0); White Blood Count 10.6 X10*3/uL (4.8-10.8)
[2024-10-23 22:49] LABS: Platelet Count 53 X10*3/uL (160-400)
[2024-10-23 22:51] LABS: Hematocrit 20.7 % (42.0-52.0)
[2024-10-24] VITALS (49 sets, daily range): BP systolic 106–140; BP diastolic 51–81; PULSE 74–99; RESP 14–23; TEMP 34.9–36.6; O2SAT 95–100; BMI 33.3
--- NOTE | 2024-10-24 | ECG_ITS ---
Test Reason : QT interval Blood Pressure : */* mmHG Vent. Rate : 76 BPM Atrial Rate : 76 BPM P-R Int : 168 ms QRS Dur : 114 ms QT Int : 454 ms P-R-T Axes : 20 -20 101 degrees QTcB Int : 510 ms Normal sinus rhythm Nonspecific T wave abnormality Prolonged QT Abnormal ECG When compared with ECG of 22-Oct-2024 20:06, QT has shortened Referred By: Chapincito Arcos Electronically Signed By: COREEN BRADEN
[2024-10-24] MEDS: Furosemide 100 MG/10 ML VIAL 60 MG IVPUSH ×3 (01:37→17:35)
[2024-10-24] MEDS: Albumin Human 25 % 100 ML IV ×3 (01:38→16:29)
[2024-10-24] MEDS: propofoL 1,000 MG/100 ML VIAL 22.99 MG IVCONT (03:35)
[2024-10-24] MEDS: Norepinephrine Bitartrate/D5W 8 MG/250 ML PLAST..BAG 35.93 MG IVCONT (03:37)
[2024-10-24 04:30] LABS: VBG Base Excess 10.5 mmol/L; VBG HCO3 32 mmol/L (22-26); VBG pCO2 34 mmHg; VBG pH 7.58 (7.32-7.43); VBG pO2 52 mmHg
[2024-10-24 04:33] LABS: Venous Blood Gas Refer to POC result
[2024-10-24 05:05] LABS: MANUAL DIFF FLAG NO
[2024-10-24 05:08] LABS: Basophils Percent Auto 0.4 % (0-2); Eosinophils Absolute Auto 0.5 X10*3/uL (0.0-0.4); Eosinophils Percent Auto 4.3 % (0-4); Hemoglobin 7.2 g/dl (14.0-18.0); Imm Gran Pct Auto 0.9 % (0.0-0.4); Lymphocytes Absolute Auto 1.2 X10*3/uL (1.2-4.9); Lymphocytes Percent Auto 11.4 % (20-40); Mean Corpuscular HGB Conc 34.8 g/dl (31.0-36.0); Mean Platelet Volume 10.8 fL (9.4-12.4); Monocytes Absolute Auto 0.7 X10*3/uL (0.1-1.2); Monocytes Percent Auto 6.5 % (2-11); Neutrophils Absolute Auto 8.2 x10*3/uL (2.0-8.3); Neutrophils Percent Auto 76.5 % (45-73); Red Blood Count 2.18 X10*6/uL (4.60-5.80); White Blood Count 10.7 X10*3/uL (4.8-10.8)
[2024-10-24 05:10] LABS: Platelet Count 59 X10*3/uL (160-400)
[2024-10-24 05:11] LABS: Hematocrit 20.7 % (42.0-52.0)
[2024-10-24 05:25] LABS: Anion Gap 15 (12-20); Blood Urea Nitrogen 14 mg/dL (9-16); Calcium 8.5 mg/dL (8.4-10.2); Carbon Dioxide 27 mmol/L (22-29); Chloride 96 mmol/L (96-108); Creatinine Clr Calc Pharmacy 63.3; Estimated Glomerular Filt Rate 51; Glucose Random 160 mg/dL (60-115); Magnesium 1.9 mg/dL (1.6-2.6); Potassium 3.1 mmol/L (3.3-5.1); Sodium 135 mmol/L (135-145); Triglycerides 68 mg/dL (<150)
[2024-10-24] MEDS: Pantoprazole Sodium 40 MG/10 ML VIAL IVPUSH (05:36)
[2024-10-24] MEDS: Potassium Chloride/H20 40 MEQ/100 ML PIGGYBACK 50 MEQ IV (06:12)
[2024-10-24] MEDS: 0.9 % Sodium Chloride Flush 3 ML SYRINGE IVFLUSH ×2 (07:06→13:38)
[2024-10-24] MEDS: propofoL 1,000 MG/100 ML VIAL 11.5 MG IVCONT (08:11)
[2024-10-24] MEDS: Chlorhexidine Gluc Oral Rinse 15 ML MOUTHWASH BUCCAL ×3 (08:13→20:34)
[2024-10-24] MEDS: cefTRIAXone sodium 2 GM VIAL IVPUSH (08:16)
[2024-10-24] MEDS: Linezolid/D5W 600 MG/300 ML PIGGYBACK 300 MG IV ×2 (08:16→20:31)
[2024-10-24] MEDS: Octreotide Acetate 500 MCG in 0.9 % Sodium Chloride 500 ML 50.1 MCG IVCONT ×2 (08:25→17:35)
--- NOTE | 2024-10-24 08:29 | PM.CCPN ---
Subjective Subjective Date of Service: 10/24/24 Critical Care Time (minutes): 35 Comment: Continues to be on ventilator support On Levophed and octreotide for vasopressor support On propofol for sedation No further episodes of bleeding Physical Exam Vital Signs: Vital Signs: Last Vital Signs Temp 97.4 F 10/24/24 08:00 Pulse 74 10/24/24 08:00 Resp 20 10/24/24 08:00 BP 106/52 L 10/24/24 08:00 Pulse Ox 99 10/24/24 08:00 O2 Del Method Mechanical Ventil ation 10/24/24 08:00 O2 Flow Rate 11 10/21/24 19:55 FiO2 30 10/24/24 08:00 BMI result Body Mass Index 33.3 General: Terminally ill looking, cachectic, icteric, unresponsive lying in the bed connected to the ventilator Nutritional Appearance: well nourished and overweight Eyes: appearance normal, both eyes and all related structures; Alignment and Position: alignment normal and position normal Neck: No lymphadenopathy, no thyromegaly Resp: bilateral air entry equal, occasional added sounds present Cardio: Regular rate, regular rhythm; Heart sounds: S1 normal heart sound present and S2 normal heart sound present GI: Firm, distended, no guarding, no hepatosplenomegaly : bladder normal to inspection, bladder normal to palpation, no renal angle tenderness Skin: no rashes or lesions noted and elasticity normal Neuro: Sedated, unable to do a neuro exam Objective Data Labs 10/24/24 04:25 10/24/24 04:25 Labs: Laboratory Results - last 24 hr 10/23/24 10/23/24 10/24/24 12:20 22:33 04:19 WBC 10.6 RBC 2.19 L Hgb 7.2 L Hct 20.7 L* MCV 94.5 MCH 32.9 MCHC 34.8 RDW 19.9 H Plt Count 53 L MPV 10.1 Immature Gran % (Auto) Neut % (Auto) Lymph % (Auto) [place] % (Auto) Eos % (Auto) Baso % (Auto) Lymph # (Auto) [place] # (Auto) Eos # (Auto) Baso # (Auto) Abs Immat Gran (auto) Absolute Neuts (auto) Absolute Nucleated RBC 0.000 Nucleated RBC % (auto) 0.0 Smear Path Review Cancelled PT 25.6 H INR 2.2 H VBG pH 7.58 H VBG pCO2 34 VBG pO2 52 VBG HCO3 32 H VBG O2 Saturation Not Reportable VBG Base Excess 10.5 Sodium 134 L Potassium 4.0 D Chloride 95 L Carbon Dioxide 26 Anion Gap 17 BUN 16 Creatinine 1.56 H Estim Creat Clear Calc 58.0 Estimated GFR 46 Random Glucose 165 H Calcium 8.1 L Phosphorus Magnesium 2.0 Total Bilirubin 9.0 H AST 206 H ALT 46 H Alkaline Phosphatase 103 Ammonia 59 H Total Protein 5.9 L Albumin 3.2 L Triglycerides 10/24/24 04:25 WBC 10.7 RBC 2.18 L Hgb 7.2 L Hct 20.7 L* MCV 95.0 MCH 33.0 MCHC 34.8 RDW 20.0 H Plt Count 59 L MPV 10.8 Immature Gran % (Auto) 0.9 H Neut % (Auto) 76.5 H Lymph % (Auto) 11.4 L [place] % (Auto) 6.5 Eos % (Auto) 4.3 H Baso % (Auto) 0.4 Lymph # (Auto) 1.2 [place] # (Auto) 0.7 Eos # (Auto) 0.5 H Baso # (Auto) 0.0 Abs Immat Gran (auto) 0.10 H Absolute Neuts (auto) 8.2 Absolute Nucleated RBC 0.000 Nucleated RBC % (auto) 0.0 Smear Path Review PT INR VBG pH VBG pCO2 VBG pO2 VBG HCO3 VBG O2 Saturation VBG Base Excess Sodium 135 Potassium 3.1 L D Chloride 96 Carbon Dioxide 27 Anion Gap 15 BUN 14 Creatinine 1.43 H Estim Creat Clear Calc 63.3 Estimated GFR 51 Random Glucose 160 H Calcium 8.5 Phosphorus 3.0 Magnesium 1.9 Total Bilirubin AST ALT Alkaline Phosphatase Ammonia Total Protein Albumin Triglycerides 68 Microbiology Microbiology Results: Microbiology 10/22/24 Unknown Urine clean catch - Clean Catch Midstream Urine Culture - Preliminary No growth to date. Progress Note: A&P Assessment and plan (1) Depression: Status: Acute (2) Acute upper gastrointestinal bleeding: Status: Acute (3) Acute upper gastrointestinal bleeding: Status: Acute (4) Portal hypertensive gastropathy: Status: Acute (5) Esophageal varices: Status: Acute (6) Erosive esophagitis: Status: Acute (7) Acute GI bleeding: Status: Acute (8) NATHANIEL (acute kidney injury): Status: Acute (9) Acute respiratory failure with hypoxia: Status: Acute (10) Encephalopathy: Status: Acute Plan Neuro: Acute encephalopathy possibly due to metabolic encephalopathy On propofol for sedation, as needed fentanyl for analgesia, we will titrate propofol down as tolerated Close neurological status monitoring in the ICU every hour Cardiac: Shock: Possibly secondary to combination of cirrhotic physiology and hemorrhagic shock On Levophed support, titrate to keep the map above 65 mm Hg Prolonged QT: Keep K above 4, Mag above 2 ondansetron stopped Respiratory: Acute hypoxemic respiratory failure due to aspiration pneumonia from hematemesis Currently on ventilator support On PRVC mode FiO2 25%, PEEP 5, TV 400, RR 20 Peak pressures and plateau pressures are under the curve Ventilator management bundle with head end elevation, aspiration precaution, chlorhexidine mouthwash, daily awakening trials, daily spontaneous breathing trials GI: Upper GI bleed: Secondary to esophagitis and esophageal varices Status post endoscopic variceal band ligation Hemoglobin remained stable over the past 48 hours, 7.2 this morning Currently on octreotide drip and pantoprazole If there is consistently further drop in hemoglobin we will transfer him out to a higher center On TPN for nutrition Decompensated liver cirrhosis: We will possibly do a paracentesis Has hepatic encephalopathy esophageal varices, ascites Renal: Acute kidney injury possibly secondary to ATN from acute blood loss and hemorrhagic shock Improving, down to 1.42 this morning Baseline creatinine normal, creatinine today is We will closely monitor I's and O's Avoid nephrotoxic medications Continue albumin and Lasix as he has significant edema in his dependent areas, fluid balance net-2.5 L Heme: Chronic anemia, closely monitor H&H, transfuse for hemoglobin less than 7 grams/deciliter Coagulopathy: Secondary to decompensated liver cirrhosis INR 2.2 this morning We will give him 2 units of FFP and then we will do a paracentesis 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 Time spent is mainly on ventilator management, sedation management, close neurological monitoring, close hemodynamic monitoring, vasopressor management, correction of coagulopathy, review of labs, review of images at this time is excluding any procedural time Quality Stroke Does the patient have a stroke diagnosis?: No VTE Prior VTE?: No VTE Risk Level:: Medical - moderate - high VTE Device Contraindication: Treatment Not Indicated VTE Drug Contraindication: Treatment Not Indicated
[2024-10-24] MEDS: Potassium Chloride/H20 40 MEQ/100 ML PIGGYBACK 100 MEQ IV (09:19)
--- NOTE | 2024-10-24 10:19 | MHC.CLN ---
F/U PT REMAINS INTUBATED AND SEDATED DISCUSSED AT ROUNDS WITH MD-PLAN FOR PARACENTESIS REVIEWED LABS DISCUSSED WITH PHARMACY RECOMMEND TPN INCREASE TO 60ML/HR TO PROVIDE 1022KCALS (1326KCALS WITH SEDATION), 216G DEXTROSE, 72G PROTEIN REPLETE LYTES NEEDED DISCUSSED WITH PT'S FAMILY MEMBER () REGARDING PEANUT ALLERGY LISTED IN CHART STATED PT WITH MILD ALLERGY AND PT DOES CONSUME PEANUT BUTTER CUPS WITHOUT RXN WILL PROCEED TO ADD LIPIDS TO TPN FORMULA TOMORROW
[2024-10-24] MEDS: Norepinephrine Bitartrate/D5W 8 MG/250 ML PLAST..BAG 28.74 MG IVCONT (10:38)
--- NOTE | 2024-10-24 13:48 | PC.NURSE ---
No urine output in [facility] for 1300 - [place] hand irrigated by this RN which produced multiple clots and shreds. Immediate 475cc dark red output after hand irrigation - Dr Arcos notified.
--- NOTE | 2024-10-24 14:53 | MHC.CM.PN ---
Pt continues on ventilatory support in ICU with multi organ failure: Plans for the day include abd US for assessment of ascites and possible parecentesis. Pts condition very fragile: d/c planning is ongoing
[2024-10-24] MEDS: propofoL 1,000 MG/100 ML VIAL 5.75 MG IVCONT ×2 (16:10→20:37)
--- NOTE | 2024-10-24 17:33 | W.PM.CCHP ---
Procedures Date of Service Date of Service: 10/24/24 Paracentesis Consent for Procedure: Elective - informed consent obtained Time out performed: Yes Indication: Ascites Procedure: therapeutic paracentesis Location: [facility] Bedside ultrasound used: yes, real-time guidance Preparation: 11 blade used to make [place] in skin Amount of fluid obtained (ml): 900 Fluid: clear and sent to lab for analysis Size of needle used: 20 Post procedure exam: normal BP and normal HR Patient tolerated procedure: well and no complications Complications: none
[2024-10-24 18:05] LABS: WBC Peritoneal Fluid 0.025 X10*3/uL
[2024-10-24 18:36] LABS: RBC Peritoneal Fluid < 0.002 X10*6/uL
[2024-10-24 19:14] LABS: BF Shift QC OK YES; Lymphocyte Peritoneal Fl 70 %; Man Diluent Bkgrd OK YES; Monocytes Peritoneal Fl 17 %; Neutrophils Peritoneal Fluid 4 %; Other Peritioneal Fl 9 %
[2024-10-24] MEDS: Norepinephrine Bitartrate/D5W 8 MG/250 ML PLAST..BAG 25.15 MG IVCONT (19:15)
[2024-10-24] MEDS: Parenteral Nutrition 1,440 ML 60 ML IV (21:20)
[2024-10-25] VITALS (41 sets, daily range): BP systolic 97–133; BP diastolic 46–66; PULSE 71–101; RESP 17–27; TEMP 35.1–38.1; O2SAT 90–100; BMI 32.3
[2024-10-25] MEDS: Albumin Human 25 % 100 ML IV ×3 (00:38→17:18)
[2024-10-25] MEDS: 0.9 % Sodium Chloride Flush 3 ML SYRINGE IVFLUSH ×3 (00:39→14:32)
[2024-10-25] MEDS: Furosemide 100 MG/10 ML VIAL 60 MG IVPUSH ×3 (01:31→18:13)
[2024-10-25] MEDS: Octreotide Acetate 500 MCG in 0.9 % Sodium Chloride 500 ML 50.1 MCG IVCONT ×3 (02:38→22:05)
[2024-10-25] MEDS: Norepinephrine Bitartrate/D5W 8 MG/250 ML PLAST..BAG 21.56 MG IVCONT (03:54)
[2024-10-25 05:30] LABS: Basophils Percent Auto 0.3 % (0-2); Eosinophils Absolute Auto 0.4 X10*3/uL (0.0-0.4); Eosinophils Percent Auto 4.5 % (0-4); Imm Gran Abs Auto 0.06 X10*3/uL (0.00-0.03); Imm Gran Pct Auto 0.6 % (0.0-0.4); Lymphocytes Absolute Auto 1.3 X10*3/uL (1.2-4.9); Lymphocytes Percent Auto 13.8 % (20-40); MANUAL DIFF FLAG NO; Mean Corpuscular HGB Conc 34.3 g/dl (31.0-36.0); Mean Corpuscular Volume 96.2 fL (80.0-98.0); Mean Platelet Volume 10.4 fL (9.4-12.4); Monocytes Absolute Auto 0.7 X10*3/uL (0.1-1.2); Monocytes Percent Auto 7.8 % (2-11); Neutrophils Absolute Auto 6.8 x10*3/uL (2.0-8.3); Red Blood Count 2.09 X10*6/uL (4.60-5.80); Red Cell Distribution Width 19.8 % (11.0-16.0); White Blood Count 9.3 X10*3/uL (4.8-10.8)
[2024-10-25 05:32] LABS: VBG Base Excess 19.7 mmol/L; VBG HCO3 38 mmol/L (22-26); VBG pCO2 23 mmHg; VBG pH 7.82 (7.32-7.43); VBG pO2 186 mmHg
[2024-10-25 05:33] LABS: Platelet Count 50 X10*3/uL (160-400)
[2024-10-25 05:34] LABS: Hematocrit 20.1 % (42.0-52.0); Hemoglobin 6.9 g/dl (14.0-18.0)
[2024-10-25 05:42] LABS: Venous Blood Gas Refer to POC result
[2024-10-25 05:47] LABS: Albumin Level 3.4 g/dL (3.5-5.0); Anion Gap 12 (12-20); Blood Urea Nitrogen 12 mg/dL (9-16); Calcium 8.7 mg/dL (8.4-10.2); Carbon Dioxide 33 mmol/L (22-29); Chloride 97 mmol/L (96-108); Creatinine Clr Calc Pharmacy 69.8; Estimated Glomerular Filt Rate 57; Glucose Random 139 mg/dL (60-115); Magnesium 1.6 mg/dL (1.6-2.6); Phosphorus 2.4 mg/dL (2.7-4.5); Potassium 3.3 mmol/L (3.3-5.1); Sodium 139 mmol/L (135-145)
[2024-10-25 06:01] LABS: VBG Base Excess 20.3 mmol/L; VBG HCO3 43 mmol/L (22-26); VBG pCO2 43 mmHg; VBG pH 7.61 (7.32-7.43); VBG pO2 47 mmHg
[2024-10-25] MEDS: Potassium Phosphate/NS 15 MMOL/250 ML PLAST..BAG 62.5 MMOL IV (06:25)
[2024-10-25] MEDS: Chlorhexidine Gluc Oral Rinse 15 ML MOUTHWASH BUCCAL ×3 (07:18→20:58)
[2024-10-25 07:42] LABS: Albumin Peritoneal Fluid 0.5; Glucose Peritoneal Fluid 136; LDH Peritoneal Fluid 41
[2024-10-25] MEDS: Linezolid/D5W 600 MG/300 ML PIGGYBACK 300 MG IV ×2 (08:28→20:58)
[2024-10-25] MEDS: cefTRIAXone sodium 2 GM VIAL IVPUSH (08:28)
--- NOTE | 2024-10-25 08:40 | PM.CCPN ---
Subjective Subjective Date of Service: 10/25/24 Critical Care Time (minutes): 35 Comment: No new events overnight, sedation tapered off this morning Paracentesis with 800 cc of fluid removed last night Continues to be on ventilator support and Levophed for vasopressor support Physical Exam Vital Signs: Vital Signs: Last Vital Signs Temp 98.0 F 10/25/24 08:00 Pulse 89 10/25/24 08:00 Resp 22 H 10/25/24 08:00 BP 108/54 L 10/25/24 08:00 Pulse Ox 94 10/25/24 08:00 O2 Del Method Mechanical Ventil ation 10/25/24 08:00 O2 Flow Rate 11 10/21/24 19:55 FiO2 30 10/25/24 08:00 BMI result Body Mass Index 32.3 General: Cachectic, jaundice, terminally ill elderly looking gentleman lying in the bed unresponsive connected to the ventilator Nutritional Appearance: well nourished and overweight Eyes: appearance normal, both eyes and all related structures; Alignment and Position: alignment normal and position normal Neck: No lymphadenopathy, no thyromegaly Resp: bilateral air entry equal, occasional added sounds present Cardio: Regular rate, regular rhythm; Heart sounds: S1 normal heart sound present and S2 normal heart sound present GI: Distended, firm, no hepatosplenomegaly : bladder normal to inspection, bladder normal to palpation, no renal angle tenderness Skin: no rashes or lesions noted and elasticity normal Neuro: No focal deficits, moves all extremities Objective Data Labs 10/25/24 05:16 10/25/24 05:30 Labs: Laboratory Results - last 24 hr 10/24/24 10/24/24 10/25/24 09:38 17:43 05:16 WBC 9.3 RBC 2.09 L Hgb 6.9 L* Hct 20.1 L* MCV 96.2 MCH 33.0 MCHC 34.3 RDW 19.8 H Plt Count 50 L MPV 10.4 Immature Gran % (Auto) 0.6 H Neut % (Auto) 73.0 Lymph % (Auto) 13.8 L [place] % (Auto) 7.8 Eos % (Auto) 4.5 H Baso % (Auto) 0.3 Lymph # (Auto) 1.3 [place] # (Auto) 0.7 Eos # (Auto) 0.4 Baso # (Auto) 0.0 Abs Immat Gran (auto) 0.06 H Absolute Neuts (auto) 6.8 Absolute Nucleated RBC 0.000 Nucleated RBC % (auto) 0.0 VBG pH VBG pCO2 VBG pO2 VBG HCO3 VBG O2 Saturation VBG Base Excess Sodium Potassium Chloride Carbon Dioxide Anion Gap BUN Creatinine Estim Creat Clear Calc Estimated GFR Random Glucose Calcium Phosphorus Magnesium Albumin Peritoneal WBC 0.025 Peritoneal RBC < 0.002 [place] Neutrophils 4 Periton Lymphocytes 70 Peritoneal Monocytes 17 Peritoneal Other Cells 9 Peritoneal Albumin 0.5 Peritoneal LDH 41 Peritoneal Glucose 136 Blood Type A Positive Antibody Screen NEGATIVE Crossmatch See Detail 10/25/24 10/25/24 10/25/24 05:20 05:30 05:50 WBC RBC Hgb Hct MCV MCH MCHC RDW Plt Count MPV Immature Gran % (Auto) Neut % (Auto) Lymph % (Auto) [place] % (Auto) Eos % (Auto) Baso % (Auto) Lymph # (Auto) [place] # (Auto) Eos # (Auto) Baso # (Auto) Abs Immat Gran (auto) Absolute Neuts (auto) Absolute Nucleated RBC Nucleated RBC % (auto) VBG pH 7.82 H* 7.61 H* VBG pCO2 23 43 VBG pO2 186 47 VBG HCO3 38 H 43 H VBG O2 Saturation Not Reportable Not Reportable VBG Base Excess 19.7 20.3 Sodium 139 Potassium 3.3 Chloride 97 Carbon Dioxide 33 H Anion Gap 12 BUN 12 Creatinine 1.30 Estim Creat Clear Calc 69.8 Estimated GFR 57 Random Glucose 139 H Calcium 8.7 Phosphorus 2.4 L Magnesium 1.6 Albumin 3.4 L Peritoneal WBC Peritoneal RBC Periton Neutrophils Periton Lymphocytes Peritoneal Monocytes Peritoneal Other Cells Peritoneal Albumin Peritoneal LDH Peritoneal Glucose Blood Type Antibody Screen Crossmatch Microbiology Microbiology Results: Microbiology 10/22/24 Unknown Urine clean catch - Clean Catch Midstream Urine Culture - Final No growth. Progress Note: A&P Assessment and plan (1) Acute upper gastrointestinal bleeding: Status: Acute (2) Acute upper gastrointestinal bleeding: Status: Acute (3) Portal hypertensive gastropathy: Status: Acute (4) Erosive esophagitis: Status: Acute (5) Alcoholic cirrhosis of liver with ascites: Status: Acute (6) Acute GI bleeding: Status: Acute Plan Neuro: Acute encephalopathy possibly due to metabolic encephalopathy Propofol tapered off this morning for weaning from ventilator Close neurological status monitoring in the ICU every hour Cardiac: Shock: Possibly secondary to combination of cirrhotic physiology and hemorrhagic shock On Levophed support currently at 0.12, titrate to keep the map above 65 mm Hg Prolonged QT: improving Keep K above 4, Mag above 2 ondansetron stopped Respiratory: Acute hypoxemic respiratory failure due to aspiration pneumonia from hematemesis Currently on ventilator support On PRVC mode FiO2 21%, PEEP 5, TV 400, RR 20 Peak pressures and plateau pressures are under the curve Ventilator management bundle with head end elevation, aspiration precaution, chlorhexidine mouthwash, daily awakening trials, daily spontaneous breathing trials Once the patient is more awake we will place him on pressor support trials for weaning from ventilator GI: Upper GI bleed: Secondary to esophagitis and esophageal varices Status post endoscopic variceal band ligation Hemoglobin remained stable dropped from 7.2 to 6.9 this morning, will transfuse 1 unit PRBC this morning. Currently on octreotide drip and pantoprazole If there is consistently further drop in hemoglobin we will transfer him out to a higher center On TPN for nutrition Decompensated liver cirrhosis: Paracentesis with 800 cc of fluid removed yesterday Has hepatic encephalopathy esophageal varices, ascites Renal: Acute kidney injury possibly secondary to ATN from acute blood loss and hemorrhagic shock Improving, down to 1.12 this morning Baseline creatinine normal, creatinine today is We will closely monitor I's and O's Avoid nephrotoxic medications Continue albumin and Lasix as he has significant edema in his dependent areas, fluid balance net-3.3 L, we will continue aggressive diuresis Heme: Chronic anemia, closely monitor H&H, transfuse for hemoglobin less than 7 grams/deciliter Coagulopathy: Secondary to decompensated liver cirrhosis INR 2.2 yesterday morning. 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 Urine cultures negative this admission Musculoskeletal: Decubitus ulcer prevention protocol Lines: Right IJ TLC Prophylaxis: SCD pantoprazole Total critical care time spent is about 45 minutes on ventilator management, sedation management, weaning sedation, weaning from ventilator, vasopressor management, close hemodynamic monitoring, review of labs and images at this time is excluding any procedural time Quality Stroke Does the patient have a stroke diagnosis?: No VTE Prior VTE?: No VTE Risk Level:: Medical - moderate - high VTE Device Contraindication: Treatment Not Indicated VTE Drug Contraindication: Treatment Not Indicated
--- NOTE | 2024-10-25 10:39 | MHC.CLN ---
F/U PT REMAINS INTUBATED DISCUSSED AT ROUNDS WITH MD REVIEWED LABS DISCUSSED WITH PHARMACY 10/25/24 RECOMMEND TPN INCREASE TO 80ML/HR WITH 50G LIPIDS TO PROVIDE 1863KCALS (27KCALS/KG IBW), 288G DEXTROSE, 96G PROTEIN (1.4G/KG BASED ON IBW) REPLETE LYTES NEEDED 10/26/24 RECOMMEND INCREASING TPN TO MAX GOAL RATE 90ML/HR WITH 57G LIPIDS TO PROVIDE 2104KCALS (30KCALS/KG BASED ON IBW), 324G DEXTROSE, 108G PROTEIN (1.5G/KG) FORMULA WILL PROMOTE WOUND HEALING REPLETE LYTES NEEDED 10/27/24 CONTINUE AT MAX GOAL RATE NOTED ABOVE *DISCUSSED WITH PT'S FAMILY MEMBER () 10/24/24 REGARDING PEANUT ALLERGY LISTED IN CHART STATED PT WITH MILD ALLERGY AND PT DOES CONSUME PEANUT BUTTER CUPS WITHOUT RXN*- AWARE RD CAN BE REACHED VIA TIGER CONNECT DURING OFF HOURS IF NEEDED
--- NOTE | 2024-10-25 11:13 | P.CDIM_ITS ---
PROVIDER RESPONSE TEXT: To clarify, the appropriate diagnosis supported by the clinical indicators: Pressure injury coccyx Stage 2: possible QUERY TEXT: PHYSICIAN'S DOCUMENTATION REQUEST Date of Query: 10/25/2024 10:01 AM EST Patient Name: Leandro Rico Admit Date: 10/21/2024 Dear Chapincito Arcos MD, A review of the medical record indicates additional documentation may be needed. Please review below and update the documentation accordingly. Clinical Indicators: Wound care notes 10/24 - Pressure injury coccyx Stage 2 Dry & Intact Foam dressing. Based on the above, could you please provide further information regarding the ulcer/wound/injury: Pressure injury coccyx Stage 2 possible, probable, suspected etc. Pressure (decubitus) ulcer Please include the stage of the ulcer and specify the location and laterality of the ulcer/wound Other (explain) Clinically unable to determine (explain) Thank you, Shabana Camejo, CCS, CDIS Use of terms such as suspected, likely, concern for, or probable (associated with a specific diagnosi s that is being evaluated, monitored, or treated as if it exists) are acceptable and can be coded in the inpatient se tting, when documented at the time of discharge. Please use your independent medical judgment in providing your response. THIS QUERY IS PART OF THE PERMANENT MEDICAL RECORD
--- NOTE | 2024-10-25 11:29 | MHC.CM.PN ---
EMR REVIEWED, PT REMAINS VENTED, REMAINS ON TPN, SEDATION STOPPED, CM SPOKE W/FAMILY AT BEDSIDE AND WHEN DISCUSSING POSSIBLE NEED FOR STR AND PT DID RESPOND BY JERKING HIS HEAD TOWARDS CM , FAMILY REPORTS PT IS TYPICALLY AGAINST STR AND WOULD WANT HOME, ANTIC PT WILL NEED P.T. FOR DISPO PT'S BASELINE IS AMBULATES INDEP W/WALKER, CM WILL CONT TO FOLLOW DC NEEDS.
[2024-10-25] MEDS: dexmedeTOMIDidine HCL/NS 400 MCG/100 ML INFUS..BTL 24.08 MCG IVCONT ×2 (11:31→22:34)
[2024-10-25] MEDS: Norepinephrine Bitartrate/D5W 8 MG/250 ML PLAST..BAG 14.37 MG IVCONT (14:56)
[2024-10-25] MEDS: dexmedeTOMIDidine HCL/NS 400 MCG/100 ML INFUS..BTL 9.63 MCG IVCONT (15:01)
[2024-10-25] MEDS: Parenteral Nutrition 1,920 ML 80 ML IV (20:55)
[2024-10-25] MEDS: Midazolam HCl 2 MG/2 ML VIAL 1 MG IVPUSH (22:32)
[2024-10-26] VITALS (47 sets, daily range): BP systolic 82–136; BP diastolic 35–67; PULSE 72–124; RESP 15–22; TEMP 34.5–38.4; O2SAT 91–99; BMI 31.0
[2024-10-26] MEDS: 0.9 % Sodium Chloride Flush 3 ML SYRINGE IVFLUSH ×4 (00:21→23:53)
[2024-10-26] MEDS: Albumin Human 25 % 100 ML IV ×3 (01:33→17:03)
[2024-10-26] MEDS: Furosemide 100 MG/10 ML VIAL 60 MG IVPUSH ×3 (01:33→17:02)
[2024-10-26] MEDS: dexmedeTOMIDidine HCL/NS 400 MCG/100 ML INFUS..BTL 19.26 MCG IVCONT ×2 (03:20→08:37)
[2024-10-26 04:56] LABS: VBG Base Excess 20.2 mmol/L; VBG HCO3 42 mmol/L (22-26); VBG pCO2 38 mmHg; VBG pH 7.65 (7.32-7.43); VBG pO2 48 mmHg
[2024-10-26 04:58] LABS: Venous Blood Gas Refer to POC result
[2024-10-26 05:35] LABS: Eosinophils Absolute Auto 0.3 X10*3/uL (0.0-0.4); Eosinophils Percent Auto 3.5 % (0-4); Hemoglobin 7.6 g/dl (14.0-18.0); PLT CLUMP 1; SCAN SMEAR FLAG 1
[2024-10-26 05:37] LABS: Basophils Percent Auto 0.4 % (0-2); Hematocrit 22.4 % (42.0-52.0); Imm Gran Abs Auto 0.06 X10*3/uL (0.00-0.03); Imm Gran Pct Auto 0.8 % (0.0-0.4); Lymphocytes Absolute Auto 1.4 X10*3/uL (1.2-4.9); Lymphocytes Percent Auto 17.7 % (20-40); Mean Corpuscular HGB Conc 33.9 g/dl (31.0-36.0); Mean Corpuscular Hemoglobin 32.8 pg (27.0-33.0); Mean Corpuscular Volume 96.6 fL (80.0-98.0); Mean Platelet Volume 10.1 fL (9.4-12.4); Monocytes Absolute Auto 0.7 X10*3/uL (0.1-1.2); Monocytes Percent Auto 8.8 % (2-11); Neutrophils Absolute Auto 5.5 x10*3/uL (2.0-8.3); Neutrophils Percent Auto 68.8 % (45-73); Red Blood Count 2.32 X10*6/uL (4.60-5.80); Red Cell Distribution Width 20.2 % (11.0-16.0)
[2024-10-26 05:42] LABS: MANUAL DIFF FLAG NO; Platelet Count 55 X10*3/uL (160-400)
[2024-10-26 05:57] LABS: Alanine Aminotransferase 25 U/L (0-40); Albumin Level 3.5 g/dL (3.5-5.0); Alkaline Phosphatase 78 U/L (39-117); Anion Gap 13 (12-20); Aspartate Amino Transferase 77 U/L (5-37); Bilirubin Total 10.9 mg/dL (0.0-1.0); Blood Urea Nitrogen 14 mg/dL (9-16); Calcium 8.2 mg/dL (8.4-10.2); Carbon Dioxide 34 mmol/L (22-29); Chloride 96 mmol/L (96-108); Estimated Glomerular Filt Rate 57; Glucose Random 138 mg/dL (60-115); Magnesium 1.5 mg/dL (1.6-2.6); Phosphorus 2.6 mg/dL (2.7-4.5); Potassium 3.1 mmol/L (3.3-5.1); Sodium 140 mmol/L (135-145); Total Protein 5.8 g/dL (6.5-8.0)
[2024-10-26] MEDS: Magnesium Sulfate/H2O 2 GM/50 ML PIGGYBACK IV (06:37)
[2024-10-26] MEDS: Potassium Phosphate/NS 15 MMOL/250 ML PLAST..BAG 62.5 MMOL IV ×2 (06:37→10:53)
[2024-10-26] MEDS: cefTRIAXone sodium 2 GM VIAL IVPUSH (08:17)
[2024-10-26] MEDS: Linezolid/D5W 600 MG/300 ML PIGGYBACK 300 MG IV ×2 (08:17→20:54)
[2024-10-26] MEDS: Chlorhexidine Gluc Oral Rinse 15 ML MOUTHWASH BUCCAL ×3 (08:17→20:54)
[2024-10-26] MEDS: Octreotide Acetate 500 MCG in 0.9 % Sodium Chloride 500 ML 50.1 MCG IVCONT (08:35)
--- NOTE | 2024-10-26 10:35 | P.PNCC_ITS ---
Subjective Subjective Date of Service: 10/26/24 Critical Care Time (minutes): 35 Comment: Stable hemoglobin, continues to be on ventilator support Took him off Precedex this morning, currently on pressor support since 09:00 Physical Exam 2 Vital Signs: Vital Signs: Last Vital Signs Temp 100.0 F 10/26/24 08:00 Pulse 72 10/26/24 09:30 Resp 16 10/26/24 09:00 BP 92/45 L 10/26/24 09:30 Pulse Ox 96 10/26/24 09:00 O2 Del Method Mechanical Ventil ation 10/26/24 09:00 O2 Flow Rate 11 10/21/24 19:55 FiO2 21 10/26/24 09:07 BMI result Body Mass Index 31.0 General: Elderly, icteric, cachectic, lying unresponsive bed Nutritional Appearance: well nourished and overweight Eyes: appearance normal, both eyes and all related structures; Alignment and Position: alignment normal and position normal Neck: No lymphadenopathy, no thyromegaly Resp: bilateral air entry equal, occasional added sounds present Cardio: Regular rate, regular rhythm; Heart sounds: S1 normal heart sound present and S2 normal heart sound present GI: Firm, distended no guarding, no hepatosplenomegaly : bladder normal to inspection, bladder normal to palpation, no renal angle tenderness Skin: no rashes or lesions noted and elasticity normal Neuro: Opens eyes, does not follow commands, moves all extremities Objective Data Labs 10/26/24 04:40 10/26/24 04:40 Labs: Laboratory Results - last 24 hr 10/26/24 10/26/24 10/26/24 04:38 04:40 04:46 WBC 8.0 RBC 2.32 L Hgb 7.6 L Hct 22.4 L MCV 96.6 MCH 32.8 MCHC 33.9 RDW 20.2 H Plt Count 55 L MPV 10.1 Immature Gran % (Auto) 0.8 H Neut % (Auto) 68.8 Lymph % (Auto) 17.7 L [place] % (Auto) 8.8 Eos % (Auto) 3.5 Baso % (Auto) 0.4 Lymph # (Auto) 1.4 [place] # (Auto) 0.7 Eos # (Auto) 0.3 Baso # (Auto) 0.0 Abs Immat Gran (auto) 0.06 H Absolute Neuts (auto) 5.5 Absolute Nucleated RBC 0.000 Nucleated RBC % (auto) 0.0 O2 Saturation Cancelled ABG pH at Pt Temp Cancelled ABG pH (Temp Correct) Cancelled ABG pCO2 at Pt Temp Cancelled ABG pCO2 (Temp Corrct Cancelled ABG pO2 at Pt Temp Cancelled ABG pO2 (Temp Correct Cancelled ABG HCO3 Cancelled ABG Base Excess (Actual) Cancelled VBG pH 7.65 H* VBG pCO2 38 VBG pO2 48 VBG HCO3 42 H VBG O2 Saturation 83.0 VBG Base Excess 20.2 Sodium 140 Potassium 3.1 L Chloride 96 Carbon Dioxide 34 H Anion Gap 13 BUN 14 Creatinine 1.29 Estim Creat Clear Calc 68.0 Estimated GFR 57 Random Glucose 138 H Calcium 8.2 L Phosphorus 2.6 L Magnesium 1.5 L Total Bilirubin 10.9 H AST 77 H ALT 25 Alkaline Phosphatase 78 Total Protein 5.8 L Albumin 3.5 Microbiology Microbiology Results: Microbiology 10/22/24 Unknown Urine clean catch - Clean Catch Midstream Urine Culture - Final No growth. Progress Note: A&P Assessment and plan (1) Anxiety: Status: Acute (2) Portal hypertensive gastropathy: Status: Acute (3) Alcoholic cirrhosis of liver with ascites: Status: Acute (4) Acute GI bleeding: Status: Acute (5) NATHANIEL (acute kidney injury): Status: Acute Plan Neuro: Acute encephalopathy possibly due to metabolic encephalopathy On Precedex for anxiolysis, tapered off this morning for ventilator weaning Close neurological status monitoring in the ICU every hour Cardiac: Shock: Possibly secondary to combination of cirrhotic physiology and hemorrhagic shock On Levophed support currently at 0.12, titrate to keep the map above 65 mm Hg Prolonged QT: improving Keep K above 4, Mag above 2 ondansetron stopped Respiratory: Acute hypoxemic respiratory failure due to aspiration pneumonia from hematemesis Currently on ventilator support On PRVC mode FiO2 21%, PEEP 5, TV 400, RR 20 this morning but currently switch to presser support for weaning trials Peak pressures and plateau pressures are under the curve Ventilator management bundle with head end elevation, aspiration precaution, chlorhexidine mouthwash, daily awakening trials, daily spontaneous breathing trials GI: Upper GI bleed: Secondary to esophagitis and esophageal varices Status post endoscopic variceal band ligation Hemoglobin remained stable overnight. Currently on pantoprazole, . On TPN for nutrition Decompensated liver cirrhosis: Paracentesis with 800 cc of fluid removed Has hepatic encephalopathy esophageal varices, ascites Renal: Acute kidney injury possibly secondary to ATN from acute blood loss and hemorrhagic shock Improving, 1.3 this morning Baseline creatinine normal, creatinine today is We will closely monitor I's and O's Avoid nephrotoxic medications Continue albumin and Lasix as he has significant edema in his dependent areas, fluid balance net-1.1 L, we will continue aggressive diuresis Heme: Chronic anemia, closely monitor H&H, transfuse for hemoglobin less than 7 grams/deciliter Coagulopathy: Secondary to decompensated liver cirrhosis INR 2.2 . 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
--- NOTE | 2024-10-26 12:32 | ECG_ITS ---
Test Reason : QTS CHECK Blood Pressure : */* mmHG Vent. Rate : 98 BPM Atrial Rate : 98 BPM P-R Int : 178 ms QRS Dur : 100 ms QT Int : 360 ms P-R-T Axes : 46 -19 61 degrees QTcB Int : 459 ms Sinus rhythm with Premature atrial complexes Inferior infarct , age undetermined Abnormal ECG When compared with ECG of 24-Oct-2024 09:13, Premature atrial complexes are now Present QT has shortened Referred By: Chapincito Arcos Electronically Signed By: COREEN BRADEN
[2024-10-26] MEDS: Norepinephrine Bitartrate/D5W 8 MG/250 ML PLAST..BAG 8.98 MG IVCONT (15:18)
[2024-10-26] MEDS: Pantoprazole Sodium 40 MG/10 ML VIAL IVPUSH (16:17)
[2024-10-26] MEDS: Parenteral Nutrition 2,160 ML 90 ML IV (21:03)
[2024-10-26] MEDS: dexmedeTOMIDidine HCL/NS 400 MCG/100 ML INFUS..BTL 24.08 MCG IVCONT (21:06)
[2024-10-27] VITALS (42 sets, daily range): BP systolic 90–120; BP diastolic 38–61; PULSE 67–89; RESP 12–24; TEMP 34.4–38; O2SAT 91–99; BMI 30.1
[2024-10-27] MEDS: Albumin Human 25 % 100 ML IV ×4 (01:16→17:28)
[2024-10-27] MEDS: Furosemide 100 MG/10 ML VIAL 60 MG IVPUSH ×3 (01:16→17:20)
[2024-10-27] MEDS: dexmedeTOMIDidine HCL/NS 400 MCG/100 ML INFUS..BTL 19.26 MCG IVCONT (01:53)
[2024-10-27 05:23] LABS: MANUAL DIFF FLAG NO
[2024-10-27 05:27] LABS: Basophils Percent Auto 0.4 % (0-2); Eosinophils Absolute Auto 0.2 X10*3/uL (0.0-0.4); Eosinophils Percent Auto 2.2 % (0-4); Imm Gran Abs Auto 0.03 X10*3/uL (0.00-0.03); Imm Gran Pct Auto 0.4 % (0.0-0.4); Lymphocytes Absolute Auto 1.2 X10*3/uL (1.2-4.9); Lymphocytes Percent Auto 17.7 % (20-40); Mean Corpuscular HGB Conc 33.3 g/dl (31.0-36.0); Mean Corpuscular Hemoglobin 32.9 pg (27.0-33.0); Mean Corpuscular Volume 98.6 fL (80.0-98.0); Mean Platelet Volume 10.2 fL (9.4-12.4); Monocytes Absolute Auto 0.7 X10*3/uL (0.1-1.2); Monocytes Percent Auto 10.7 % (2-11); Neutrophils Absolute Auto 4.7 x10*3/uL (2.0-8.3); Neutrophils Percent Auto 68.6 % (45-73); Red Blood Count 2.07 X10*6/uL (4.60-5.80); Red Cell Distribution Width 19.8 % (11.0-16.0); White Blood Count 6.8 X10*3/uL (4.8-10.8)
[2024-10-27 05:28] LABS: Platelet Count 54 X10*3/uL (160-400)
[2024-10-27 05:29] LABS: Hemoglobin 6.8 g/dl (14.0-18.0)
[2024-10-27 05:30] LABS: Hematocrit 20.4 % (42.0-52.0)
[2024-10-27 05:44] LABS: Anion Gap 12 (12-20); Blood Urea Nitrogen 24 mg/dL (9-16); Calcium 8.9 mg/dL (8.4-10.2); Carbon Dioxide 36 mmol/L (22-29); Chloride 95 mmol/L (96-108); Estimated Glomerular Filt Rate > 60; Glucose Random 146 mg/dL (60-115); Magnesium 1.8 mg/dL (1.6-2.6); Phosphorus 3.4 mg/dL (2.7-4.5); Potassium 3.3 mmol/L (3.3-5.1); Sodium 140 mmol/L (135-145)
[2024-10-27 05:46] LABS: Albumin Level 3.6 g/dL (3.5-5.0); Anion Gap 14 (12-20); Blood Urea Nitrogen 24 mg/dL (9-16); Carbon Dioxide 34 mmol/L (22-29); Chloride 95 mmol/L (96-108); Estimated Glomerular Filt Rate > 60; Glucose Random 146 mg/dL (60-115); Magnesium 1.8 mg/dL (1.6-2.6); Phosphorus 3.4 mg/dL (2.7-4.5); Potassium 3.3 mmol/L (3.3-5.1); Sodium 140 mmol/L (135-145)
[2024-10-27] MEDS: Pantoprazole Sodium 40 MG/10 ML VIAL IVPUSH ×2 (06:11→17:20)
[2024-10-27] MEDS: dexmedeTOMIDidine HCL/NS 400 MCG/100 ML INFUS..BTL 14.45 MCG IVCONT (07:05)
[2024-10-27] MEDS: 0.9 % Sodium Chloride Flush 3 ML SYRINGE IVFLUSH ×3 (08:18→23:00)
[2024-10-27] MEDS: Chlorhexidine Gluc Oral Rinse 15 ML MOUTHWASH BUCCAL (08:23)
[2024-10-27] MEDS: cefTRIAXone sodium 2 GM VIAL IVPUSH (08:23)
[2024-10-27] MEDS: Linezolid/D5W 600 MG/300 ML PIGGYBACK 300 MG IV (08:24)
--- NOTE | 2024-10-27 11:25 | PM.CCPN ---
Subjective Subjective Date of Service: 10/27/24 Critical Care Time (minutes): 35 Comment: Tolerated pressor support all day yesterday, switched to volume control overnight with Precedex. This morning Precedex has been weaned off again and patient is back on pressor support so far the volumes are okay but he has a very poor cough. He has some secretions too. But given his chronic debilitation his cough response may not improve much and possibly we will give him a trial of extubation again today. Physical Exam Vital Signs: Vital Signs: Last Vital Signs Temp 100.1 F 10/27/24 10:56 Pulse 76 10/27/24 10:56 Resp 18 10/27/24 10:56 BP 99/46 L 10/27/24 10:56 Pulse Ox 92 10/27/24 10:56 O2 Del Method Mechanical Ventil ation 10/27/24 10:56 O2 Flow Rate 11 10/21/24 19:55 FiO2 21 10/27/24 10:56 BMI result Body Mass Index 30.1 General: Chronic debilitated, cachectic, icteric, ill-looking male sitting up on the bed opening his eyes, following some commands connected to the ventilator Nutritional Appearance: well nourished and overweight Eyes: appearance normal, both eyes and all related structures; Alignment and Position: alignment normal and position normal Neck: No lymphadenopathy, no thyromegaly Resp: bilateral air entry equal, occasional added sounds present Cardio: Regular rate, regular rhythm; Heart sounds: S1 normal heart sound present and S2 normal heart sound present GI: Distended, no guarding, no hepatosplenomegaly : bladder normal to inspection, bladder normal to palpation, no renal angle tenderness Skin: no rashes or lesions noted and elasticity normal Neuro: Follows commands, no focal deficits, moves all extremities Objective Data Labs 10/27/24 04:31 10/27/24 04:31 Labs: Laboratory Results - last 24 hr 10/24/24 10/27/24 10/27/24 09:38 04:31 04:31 WBC 6.8 RBC 2.07 L Hgb 6.8 L* Hct 20.4 L* MCV 98.6 H MCH 32.9 MCHC 33.3 RDW 19.8 H Plt Count 54 L MPV 10.2 Immature Gran % (Auto) 0.4 Neut % (Auto) 68.6 Lymph % (Auto) 17.7 L [place] % (Auto) 10.7 Eos % (Auto) 2.2 Baso % (Auto) 0.4 Lymph # (Auto) 1.2 [place] # (Auto) 0.7 Eos # (Auto) 0.2 Baso # (Auto) 0.0 Abs Immat Gran (auto) 0.03 Absolute Neuts (auto) 4.7 Absolute Nucleated RBC 0.000 Nucleated RBC % (auto) 0.0 Sodium 140 140 Potassium 3.3 Chloride Carbon Dioxide Anion Gap BUN Creatinine Estim Creat Clear Calc Estimated GFR Random Glucose Calcium Phosphorus Magnesium Albumin Blood Type A Positive Antibody Screen NEGATIVE Crossmatch See Detail 10/27/24 10/27/24 10/27/24 04:31 04:31 04:31 WBC RBC Hgb Hct MCV MCH MCHC RDW Plt Count MPV Immature Gran % (Auto) Neut % (Auto) Lymph % (Auto) [place] % (Auto) Eos % (Auto) Baso % (Auto) Lymph # (Auto) [place] # (Auto) Eos # (Auto) Baso # (Auto) Abs Immat Gran (auto) Absolute Neuts (auto) Absolute Nucleated RBC Nucleated RBC % (auto) Sodium Potassium 3.3 Chloride 95 L 95 L Carbon Dioxide 36 H 34 H Anion Gap 12 BUN Creatinine Estim Creat Clear Calc Estimated GFR Random Glucose Calcium Phosphorus Magnesium Albumin Blood Type Antibody Screen Crossmatch 10/27/24 10/27/24 10/27/24 04:31 04:31 04:31 WBC RBC Hgb Hct MCV MCH MCHC RDW Plt Count MPV Immature Gran % (Auto) Neut % (Auto) Lymph % (Auto) [place] % (Auto) Eos % (Auto) Baso % (Auto) Lymph # (Auto) [place] # (Auto) Eos # (Auto) Baso # (Auto) Abs Immat Gran (auto) Absolute Neuts (auto) Absolute Nucleated RBC Nucleated RBC % (auto) Sodium Potassium Chloride Carbon Dioxide Anion Gap 14 BUN 24 H 24 H Creatinine 1.17 1.22 Estim Creat Clear Calc 74.0 Estimated GFR Random Glucose Calcium Phosphorus Magnesium Albumin Blood Type Antibody Screen Crossmatch 10/27/24 10/27/24 10/27/24 04:31 04:31 04:31 WBC RBC Hgb Hct MCV MCH MCHC RDW Plt Count MPV Immature Gran % (Auto) Neut % (Auto) Lymph % (Auto) [place] % (Auto) Eos % (Auto) Baso % (Auto) Lymph # (Auto) [place] # (Auto) Eos # (Auto) Baso # (Auto) Abs Immat Gran (auto) Absolute Neuts (auto) Absolute Nucleated RBC Nucleated RBC % (auto) Sodium Potassium Chloride Carbon Dioxide Anion Gap BUN Creatinine Estim Creat Clear Calc 71.0 Estimated GFR > 60 > 60 Random Glucose 146 H 146 H Calcium 8.9 D Phosphorus Magnesium Albumin Blood Type Antibody Screen Crossmatch 10/27/24 10/27/24 10/27/24 04:31 04:31 04:31 WBC RBC Hgb Hct MCV MCH MCHC RDW Plt Count MPV Immature Gran % (Auto) Neut % (Auto) Lymph % (Auto) [place] % (Auto) Eos % (Auto) Baso % (Auto) Lymph # (Auto) [place] # (Auto) Eos # (Auto) Baso # (Auto) Abs Immat Gran (auto) Absolute Neuts (auto) Absolute Nucleated RBC Nucleated RBC % (auto) Sodium Potassium Chloride Carbon Dioxide Anion Gap BUN Creatinine Estim Creat Clear Calc Estimated GFR Random Glucose Calcium 9.0 Phosphorus 3.4 3.4 Magnesium 1.8 1.8 Albumin 3.6 Blood Type Antibody Screen Crossmatch Microbiology Microbiology Results: Microbiology 10/22/24 Unknown Urine clean catch - Clean Catch Midstream Urine Culture - Final No growth. Progress Note: A&P Assessment and plan (1) Hypertension: Status: Acute (2) Hyperlipidemia: Status: Acute (3) Acute upper gastrointestinal bleeding: Status: Acute (4) Portal hypertensive gastropathy: Status: Acute (5) Erosive esophagitis: Status: Acute (6) Acute GI bleeding: Status: Acute (7) NATHANIEL (acute kidney injury): Status: Acute (8) Gross hematuria: Status: Acute (9) Anemia: Status: Acute Plan 59-year-old gentleman who has alcohol-related cirrhosis with multiple hospitalization lately for upper GI bleed due to esophageal varices and lower esophagitis, portal hypertensive gastropathy admitted again to the hospital with hematemesis and hematuria. Patient has radiation cystitis because of which he has hematuria every time he has hematemesis. Patient received multiple PRBC transfusion on the day of admission and was intubated for upper GI endoscope, he was extubated postprocedure but had poor mental status, poor volumes and unable to clear secretions so had to be reintubated the same night. He has been on pressor support for the past 2 days and he is doing okay, we will give him a trial of extubation today. Neuro: Acute encephalopathy possibly due to metabolic encephalopathy On Precedex for anxiolysis, tapered off again this morning for ventilator weaning Close neurological status monitoring in the ICU every hour Cardiac: Shock: Possibly secondary to combination of cirrhotic physiology and hemorrhagic shock On Levophed support lowering doses, titrate to keep the map above 65 mm Hg Prolonged QT: improving Keep K above 4, Mag above 2 ondansetron stopped Respiratory: Acute hypoxemic respiratory failure due to aspiration pneumonia from hematemesis Currently on ventilator support On PRVC mode FiO2 21%, PEEP 5, TV 400, RR 20 this morning but currently switch to presser support for weaning trials Peak pressures and plateau pressures are under the curve Ventilator management bundle with head end elevation, aspiration precaution, chlorhexidine mouthwash, daily awakening trials, daily spontaneous breathing trials Tolerated pressor support trials very well yesterday whole day, but could not extubate yesterday due to poor mentation; he is placed back on pressor support trials this morning, RSBI, volumes are okay but he has a very poor cough. Given his chronic debilitation am not sure how much of his cough response will improve, we will give him a trial of extubation today GI: Upper GI bleed: Secondary to esophagitis and esophageal varices Status post endoscopic variceal band ligation Hemoglobin remained stable overnight. Currently on pantoprazole, . On TPN for nutrition Decompensated liver cirrhosis: Paracentesis with 800 cc of fluid removed, no SBP Has hepatic encephalopathy esophageal varices, ascites Renal: Acute kidney injury possibly secondary to ATN from acute blood loss and hemorrhagic shock Improving, 1.2 this morning Baseline creatinine normal, creatinine today is We will closely monitor I's and O's Avoid nephrotoxic medications Continue albumin and Lasix as he has significant edema in his dependent areas, fluid balance net-300 L, we have diuresed him well so far and possibly that is why the responses is diminishing now. Heme: Chronic anemia, closely monitor H&H, transfuse for hemoglobin less than 7 grams/deciliter Coagulopathy: Secondary to decompensated liver cirrhosis INR 2.2 . 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, we will discontinue wean as linezolid as received for 5 days Urine cultures negative this admission Musculoskeletal: Decubitus ulcer prevention protocol Lines: Right IJ TLC Prophylaxis: SCD pantoprazole Critical care time spent is about 45 minutes on managing this critically ill patient with multiple organ failures, time spent is mainly on close neurological status monitoring, sedation tapering, ventilator management, changing ventilator settings, weaning trials, postextubation care, close hemodynamic monitoring, vasopressor management, review of labs and images Quality Stroke Does the patient have a stroke diagnosis?: No VTE Prior VTE?: No VTE Risk Level:: Medical - moderate - high VTE Device Contraindication: Treatment Not Indicated VTE Drug Contraindication: Treatment Not Indicated
--- NOTE | 2024-10-27 11:34 | MHC.CM.PN ---
Pt to be extubated today. Will remain in ICU to ensure stability. Initial d/c plan was to return to home w/spouse support however, pt will require PT, OT and RN care at a skilled level. Will await clinical improvement and then have PT eval for SNF placement. CM to follow
[2024-10-27 13:17] LABS: Venous Blood Gas Refer to POC result
[2024-10-27] MEDS: fentaNYL citrate/PF 100 MCG/2 ML VIAL 25 MCG IVPUSH ×4 (13:19→22:59)
[2024-10-27] MEDS: Phenazopyridine HCL 200 MG TABLET PO (16:08)
[2024-10-27] MEDS: ondansetron HCL 4 MG/2 ML VIAL IVPUSH (19:23)
--- NOTE | 2024-10-27 20:01 | W.MHC.ACPN ---
Advanced Care Planning Note Advanced Care Planning Note Discussed with: patient and family member(s) ( - Marce Rico) Time spent (in minutes): 30 Narrative: Mr. Rico was alert and Oriented to person, place, time and situation after being extubated earlier this afternoon.? I spoke with the patient and his regarding his goals of care. Mr. Rico verbalized that he did not want to be intubated again and did not want CPR if his heart were to stop. He is amenable to noninvasive ventilation if needed. I offered to call the patient?s son Philip who is the primary healthcare proxy to provide a clinical update and change in code status. The patient refused. He stated he did not want his son called.? MOLST form was completed at the bedside. The patient was too weak to sign; with his permission, his Marce signed as the person representing him. The patient?s code status was changed to DNR/DNI.? Problems Discussed (1) Hypertension: (2) Hyperlipidemia: (3) Acute upper gastrointestinal bleeding: (4) Portal hypertensive gastropathy: (5) Erosive esophagitis: (6) Acute GI bleeding: (7) NATHANIEL (acute kidney injury): (8) Gross hematuria: (9) Anemia:
[2024-10-27] MEDS: Parenteral Nutrition 2,160 ML 90 ML IV (21:18)
[2024-10-27 23:22] LABS: Hematocrit 21.5 % (42.0-52.0); Hemoglobin 7.1 g/dl (14.0-18.0); Mean Corpuscular Hemoglobin 32.9 pg (27.0-33.0); Mean Corpuscular Volume 99.5 fL (80.0-98.0); Mean Platelet Volume 10.1 fL (9.4-12.4); Red Blood Count 2.16 X10*6/uL (4.60-5.80); White Blood Count 7.5 X10*3/uL (4.8-10.8)
[2024-10-27 23:24] LABS: Platelet Count 39 X10*3/uL (160-400)
[2024-10-28] VITALS (38 sets, daily range): BP systolic 95–122; BP diastolic 44–55; PULSE 71–102; RESP 10–24; TEMP 36.6–37.3; O2SAT 92–98; BMI 30.1
[2024-10-28] MEDS: ondansetron HCL 4 MG/2 ML VIAL IVPUSH ×2 (00:28→08:41)
[2024-10-28] MEDS: Furosemide 100 MG/10 ML VIAL 60 MG IVPUSH (00:33)
[2024-10-28] MEDS: Albumin Human 25 % 100 ML IV ×2 (00:37→08:20)
[2024-10-28] MEDS: fentaNYL citrate/PF 100 MCG/2 ML VIAL 25 MCG IVPUSH (02:35)
[2024-10-28 05:48] LABS: MANUAL DIFF FLAG NO
[2024-10-28] MEDS: Pantoprazole Sodium 40 MG/10 ML VIAL IVPUSH ×2 (05:51→15:33)
[2024-10-28 06:00] LABS: Basophils Percent Auto 0.6 % (0-2); Eosinophils Absolute Auto 0.2 X10*3/uL (0.0-0.4); Eosinophils Percent Auto 3.3 % (0-4); Imm Gran Abs Auto 0.03 X10*3/uL (0.00-0.03); Imm Gran Pct Auto 0.4 % (0.0-0.4); Lymphocytes Absolute Auto 0.9 X10*3/uL (1.2-4.9); Lymphocytes Percent Auto 13.1 % (20-40); Mean Corpuscular HGB Conc 33.3 g/dl (31.0-36.0); Mean Corpuscular Hemoglobin 33.2 pg (27.0-33.0); Mean Corpuscular Volume 99.5 fL (80.0-98.0); Mean Platelet Volume 9.4 fL (9.4-12.4); Monocytes Absolute Auto 0.9 X10*3/uL (0.1-1.2); Monocytes Percent Auto 12.6 % (2-11); Neutrophils Absolute Auto 4.9 x10*3/uL (2.0-8.3); Red Blood Count 2.11 X10*6/uL (4.60-5.80); Red Cell Distribution Width 18.6 % (11.0-16.0)
[2024-10-28 06:10] LABS: Albumin Level 3.6 g/dL (3.5-5.0); Anion Gap 15 (12-20); Blood Urea Nitrogen 35 mg/dL (9-16); Carbon Dioxide 34 mmol/L (22-29); Chloride 95 mmol/L (96-108); Creatinine Clr Calc Pharmacy 76.6; Estimated Glomerular Filt Rate > 60; Glucose Random 140 mg/dL (60-115); Magnesium 1.9 mg/dL (1.6-2.6); Phosphorus 3.5 mg/dL (2.7-4.5); Potassium 3.6 mmol/L (3.3-5.1); Sodium 140 mmol/L (135-145)
[2024-10-28 06:11] LABS: Alanine Aminotransferase 21 U/L (0-40); Albumin Level 3.6 g/dL (3.5-5.0); Alkaline Phosphatase 64 U/L (39-117); Anion Gap 13 (12-20); Aspartate Amino Transferase 54 U/L (5-37); Bilirubin Total 10.5 mg/dL (0.0-1.0); Blood Urea Nitrogen 34 mg/dL (9-16); Carbon Dioxide 36 mmol/L (22-29); Chloride 96 mmol/L (96-108); Creatinine Clr Calc Pharmacy 74.6; Estimated Glomerular Filt Rate > 60; Glucose Random 139 mg/dL (60-115); Magnesium 1.8 mg/dL (1.6-2.6); Phosphorus 3.6 mg/dL (2.7-4.5); Potassium 3.5 mmol/L (3.3-5.1); Sodium 141 mmol/L (135-145); Total Protein 5.7 g/dL (6.5-8.0)
[2024-10-28 06:14] LABS: Platelet Count 34 X10*3/uL (160-400)
[2024-10-28] MEDS: 0.9 % Sodium Chloride Flush 3 ML SYRINGE IVFLUSH ×2 (08:17→15:33)
[2024-10-28] MEDS: cefTRIAXone sodium 2 GM VIAL IVPUSH (08:20)
--- NOTE | 2024-10-28 08:39 | P.PNCC_ITS ---
Subjective Subjective Date of Service: 10/28/24 Critical Care Time (minutes): 60 Physical Exam 2 Vital Signs: Vital Signs: Last Vital Signs Temp 98.1 F 10/28/24 08:32 Pulse 74 10/28/24 08:32 Resp 14 10/28/24 08:32 BP 102/44 L 10/28/24 08:32 Pulse Ox 95 10/28/24 08:00 O2 Del Method Nasal Cannula 10/28/24 08:00 O2 Flow Rate 2 10/28/24 08:00 FiO2 21 10/27/24 11:23 BMI result Body Mass Index 30.1 Const: Other: appreciably jaundiced, cachectic, and chronically-ill appearing General: cooperative, comfortable, no acute distress, alert, awake and Physically active Orientation/consciousness: patient oriented x3 HEENT: Head: Yes normal to inspection, Yes normocephalic and Yes atraumatic Eyes: General: appearance normal, both eyes and all related structures Neck: Neck: Yes normal visual inspection, Yes full ROM, Yes no lymphadenopathy, Yes no meningeal signs, Yes trachea midline and Yes supple Chest: Chest palpation & inspection: normal inspection of the chest Resp: Other: no appreciable rales, rhonchi, wheezing Effort & Inspection: normal respiratory effort Cardio: Rate: regular rate Rhythm: regular rhythm GI: Other: appreciable abdominal distention, though compressible; some appreciable tenderness to palpation throughout; no appreciable guarding, rebound Skin: General skin exam: no rashes or lesions noted Neuro: General: patient oriented x3, tone normal, moves all extremities, no meningeal signs and no focal motor deficits Extrem: General: Yes normal to inspection, Yes full ROM, Yes capillary refill normal and Yes no clubbing, cyanosis or edema Psych: Appearance: grossly normal Objective Data Labs 10/28/24 05:23 10/28/24 05:23 Labs: Laboratory Results - last 24 hr 10/27/24 10/28/24 10/28/24 23:13 05:23 05:23 WBC 7.5 7.0 RBC 2.16 L 2.11 L Hgb 7.1 L 7.0 L* Hct 21.5 L 21.0 L* MCV 99.5 H 99.5 H MCH 32.9 33.2 H MCHC 33.0 33.3 RDW 19.0 H 18.6 H Plt Count 39 L D 34 L MPV 10.1 9.4 Immature Gran % (Auto) 0.4 Neut % (Auto) 70.0 Lymph % (Auto) 13.1 L [place] % (Auto) 12.6 H Eos % (Auto) 3.3 Baso % (Auto) 0.6 Lymph # (Auto) 0.9 L [place] # (Auto) 0.9 Eos # (Auto) 0.2 Baso # (Auto) 0.0 Abs Immat Gran (auto) 0.03 Absolute Neuts (auto) 4.9 Absolute Nucleated RBC 0.000 0.000 Nucleated RBC % (auto) 0.0 0.0 Sodium 140 141 Potassium 3.6 Chloride Carbon Dioxide Anion Gap BUN Creatinine Estim Creat Clear Calc Estimated GFR Random Glucose Calcium Phosphorus Magnesium Total Bilirubin AST ALT Alkaline Phosphatase Total Protein Albumin Blood Type Antibody Screen Crossmatch 10/28/24 10/28/24 10/28/24 05:23 05:23 05:23 WBC RBC Hgb Hct MCV MCH MCHC RDW Plt Count MPV Immature Gran % (Auto) Neut % (Auto) Lymph % (Auto) [place] % (Auto) Eos % (Auto) Baso % (Auto) Lymph # (Auto) [place] # (Auto) Eos # (Auto) Baso # (Auto) Abs Immat Gran (auto) Absolute Neuts (auto) Absolute Nucleated RBC Nucleated RBC % (auto) Sodium Potassium 3.5 Chloride 95 L 96 Carbon Dioxide 34 H 36 H Anion Gap 15 BUN Creatinine Estim Creat Clear Calc Estimated GFR Random Glucose Calcium Phosphorus Magnesium Total Bilirubin AST ALT Alkaline Phosphatase Total Protein Albumin Blood Type Antibody Screen Crossmatch 10/28/24 10/28/24 10/28/24 05:23 05:23 05:23 WBC RBC Hgb Hct MCV MCH MCHC RDW Plt Count MPV Immature Gran % (Auto) Neut % (Auto) Lymph % (Auto) [place] % (Auto) Eos % (Auto) Baso % (Auto) Lymph # (Auto) [place] # (Auto) Eos # (Auto) Baso # (Auto) Abs Immat Gran (auto) Absolute Neuts (auto) Absolute Nucleated RBC Nucleated RBC % (auto) Sodium Potassium Chloride Carbon Dioxide Anion Gap 13 BUN 35 H 34 H Creatinine 1.13 1.16 Estim Creat Clear Calc 76.6 Estimated GFR Random Glucose Calcium Phosphorus Magnesium Total Bilirubin AST ALT Alkaline Phosphatase Total Protein Albumin Blood Type Antibody Screen Crossmatch 10/28/24 10/28/24 10/28/24 05:23 05:23 05:23 WBC RBC Hgb Hct MCV MCH MCHC RDW Plt Count MPV Immature Gran % (Auto) Neut % (Auto) Lymph % (Auto) [place] % (Auto) Eos % (Auto) Baso % (Auto) Lymph # (Auto) [place] # (Auto) Eos # (Auto) Baso # (Auto) Abs Immat Gran (auto) Absolute Neuts (auto) Absolute Nucleated RBC Nucleated RBC % (auto) Sodium Potassium Chloride Carbon Dioxide Anion Gap BUN Creatinine Estim Creat Clear Calc 74.6 Estimated GFR > 60 > 60 Random Glucose 140 H 139 H Calcium 9.0 Phosphorus Magnesium Total Bilirubin AST ALT Alkaline Phosphatase Total Protein Albumin Blood Type Antibody Screen Crossmatch 10/28/24 10/28/24 10/28/24 05:23 05:23 05:23 WBC RBC Hgb Hct MCV MCH MCHC RDW Plt Count MPV Immature Gran % (Auto) Neut % (Auto) Lymph % (Auto) [place] % (Auto) Eos % (Auto) Baso % (Auto) Lymph # (Auto) [place] # (Auto) Eos # (Auto) Baso # (Auto) Abs Immat Gran (auto) Absolute Neuts (auto) Absolute Nucleated RBC Nucleated RBC % (auto) Sodium Potassium Chloride Carbon Dioxide Anion Gap BUN Creatinine Estim Creat Clear Calc Estimated GFR Random Glucose Calcium 9.0 Phosphorus 3.5 3.6 Magnesium 1.9 1.8 Total Bilirubin 10.5 H AST 54 H ALT 21 Alkaline Phosphatase 64 Total Protein 5.7 L Albumin 3.6 Blood Type Antibody Screen Crossmatch 10/28/24 10/28/24 05:23 07:21 WBC RBC Hgb Hct MCV MCH MCHC RDW Plt Count MPV Immature Gran % (Auto) Neut % (Auto) Lymph % (Auto) [place] % (Auto) Eos % (Auto) Baso % (Auto) Lymph # (Auto) [place] # (Auto) Eos # (Auto) Baso # (Auto) Abs Immat Gran (auto) Absolute Neuts (auto) Absolute Nucleated RBC Nucleated RBC % (auto) Sodium Potassium Chloride Carbon Dioxide Anion Gap BUN Creatinine Estim Creat Clear Calc Estimated GFR Random Glucose Calcium Phosphorus Magnesium Total Bilirubin AST ALT Alkaline Phosphatase Total Protein Albumin 3.6 Blood Type A Positive Antibody Screen NEGATIVE Crossmatch See Detail Microbiology Microbiology Results: Microbiology 10/22/24 Unknown Urine clean catch - Clean Catch Midstream Urine Culture - Final No growth. Progress Note: A&P Assessment and plan (1) Acute upper gastrointestinal bleeding: Status: Acute (2) Esophageal varices: Status: Acute (3) Cirrhosis: Status: Acute Plan Patient is a 59 Y M w/ prior prostate cancer, s/p radiation, c/b radiation cystitis, alcohol misuse c/b cirrhosis, c/b esophageal varices, upper GI bleed, initially presented to emergency department on 10/21 w/ hematemesis, underwent EGD on 10/21, found to have bleeding esophageal varices, s/p banding; ICU course c/b extubation, re-intubation, and hemorrhagic shock N: encephalopathy, likely multi-factorial, improved; hepatic encephalopathy prophylaxis w/ lactulose CV: hypotension, unclear etiology; norepinephrine gtt; to start midodrine; to follow-up TSH, T4, random cortisol R: no acute issues GI: alcohol misuse c/b cirrhosis, esophageal varices, s/p banding; ceftriaxone, pantoprazole BID; appreciate gastroenterology recommendations; TPN, advance diet as tolerated : to monitor renal indices; prostate cancer s/p radiation c/b radiation cystitis, hematuria; appreciate urology recommendations H: esophageal varices c/b hemorrhage; to maintain Hb >7, PLT > 100 if possible; to hold chemical DVT prophylaxis, mechanical devices ID: empiric ceftriaxone in setting of esophageal varices E: no acute issues; to monitor hypo-/hyper-glycemia P: alcohol misuse; addiction medicine when possible Quality Stroke Does the patient have a stroke diagnosis?: No VTE Prior VTE?: No VTE Risk Level:: Medical - moderate - high VTE Device Contraindication: N/A - Device Ordered VTE Drug Contraindication: Treatment Not Tolerated
--- NOTE | 2024-10-28 08:53 | ECG_ITS ---
Test Reason : check qtc Blood Pressure : */* mmHG Vent. Rate : 72 BPM Atrial Rate : 72 BPM P-R Int : 178 ms QRS Dur : 106 ms QT Int : 422 ms P-R-T Axes : 24 -17 31 degrees QTcB Int : 462 ms Normal sinus rhythm Normal ECG When compared with ECG of 26-Oct-2024 12:39, Premature atrial complexes are no longer Present Nonspecific T wave abnormality, improved in Lateral leads Referred By: Kalli Caraballo Electronically Signed By: Julio Muro
[2024-10-28] MEDS: Lactulose 20 GM/30 ML SOLUTION PO (09:24)
[2024-10-28] MEDS: Midodrine HCl 5 MG TABLET PO ×2 (09:24→15:33)
--- NOTE | 2024-10-28 09:30 | MHC.CLN ---
F/U PT EXTUBATED 10/27/24 REVIEWED LABS DISCUSSED WITH PHARMACY CONTINUE TPN AT MAX GOAL RATE 90ML/HR WITH 57G LIPIDS PROVIDES 2104KCALS (30KCALS/KG BASED ON IBW), 324G DEXTROSE, 108G PROTEIN (1.5G/KG) FORMULA WILL PROMOTE WOUND HEALING REPLETE LYTES NEEDED *PREVIOUSLY DISCUSSED WITH PT'S FAMILY MEMBER () 10/24/24 REGARDING PEANUT ALLERGY LISTED IN CHART STATED PT WITH MILD ALLERGY AND PT DOES CONSUME PEANUT BUTTER CUPS WITHOUT RXN*- AWARE
[2024-10-28 09:39] LABS: Lactic Acid 1.7 mmol/L (0.5-2.0)
[2024-10-28 09:56] LABS: Cortisol Random 9.3 ug/dL
[2024-10-28 09:59] LABS: TSH reflex Free T4 0.12 uIU/mL (0.32-4.0)
[2024-10-28 10:47] LABS: Free T4 (Free Thyroxine) 0.76 ng/dL (0.71-1.85)
[2024-10-28] MEDS: HYDROmorphone HCl 1 MG/ML SYRINGE IVPUSH ×3 (10:59→23:18)
--- NOTE | 2024-10-28 11:59 | P.ACPN_ITS ---
Advanced Care Planning Note Advanced Care Planning Note Discussed with: patient and family member(s) Time spent (in minutes): 60 Narrative: Mr. Rico' was at his bedside this AM. I introduced myself. We discussed Mr. Rico' ED and ICU stay. I offered clarifications. We discussed Mr. Concepcion advanced liver disease, marked by esophageal varicies and hepatic encephalopathy, and overall poor prognosis. We discussed that Mr. Rico will likely have potentially life-threatening complications from his advanced liver disease in the future. Mr. Rico and his expressed understanding of this. Mr. Rico and his re-iterated that Mr. Rico is DNR and DNI. When prompted, Mr. Rico reports he no longer wants to be in the intensive care unit, though he would be willing to have vasopressors if needed. Mr. Rico also reports he would be willing to have non-invasive ventilation. I described the indications of non- invasive ventilation and the harm that non-invasive ventilation can cause if used inappropriately, such as in the setting of aspiration. Mr. Rico and his expressed understanding of this. Problems Discussed (1) Acute upper gastrointestinal bleeding: (2) Esophageal varices: (3) Cirrhosis:
[2024-10-28 20:35] LABS: Hematocrit 21.8 % (42.0-52.0); Hemoglobin 7.3 g/dl (14.0-18.0); Mean Corpuscular HGB Conc 33.5 g/dl (31.0-36.0); Mean Corpuscular Hemoglobin 32.9 pg (27.0-33.0); Mean Corpuscular Volume 98.2 fL (80.0-98.0); Red Blood Count 2.22 X10*6/uL (4.60-5.80); Red Cell Distribution Width 18.6 % (11.0-16.0)
[2024-10-28 20:40] LABS: Platelet Count 35 X10*3/uL (160-400)
[2024-10-28 20:50] LABS: Anion Gap 13 (12-20); Blood Urea Nitrogen 40 mg/dL (9-16); Calcium 9.3 mg/dL (8.4-10.2); Carbon Dioxide 35 mmol/L (22-29); Chloride 99 mmol/L (96-108); Creatinine Clr Calc Pharmacy 81.7; Estimated Glomerular Filt Rate > 60; Glucose Random 116 mg/dL (60-115); Phosphorus 3.5 mg/dL (2.7-4.5); Potassium 3.8 mmol/L (3.3-5.1); Sodium 143 mmol/L (135-145)
[2024-10-28] MEDS: Parenteral Nutrition 2,160 ML 90 ML IV (21:03)
[2024-10-29] VITALS (26 sets, daily range): BP systolic 103–131; BP diastolic 48–81; PULSE 60–91; RESP 9–25; TEMP 36.3–37.3; O2SAT 91–98; BMI 31.5
--- NOTE | 2024-10-29 | PC.NURSE ---
Approx 2000: Upon initial assessment, rojas catheter patent and draining dark red hematuria, small clots noted. Approx 2200: Urine draining noted to be darker and more clots noted. To maintain patency, rojas hand irrigated to remove significant amount of large clots, punch colored urine draining. Appox 2300: Significant decrease in urine output noted. Rojas manually irrigated by this RN, unable to regain patency. BRIDGETTE Anguiano notified, to bedside to attempt manual irrigation. Multiple attempts at hand irrigation failed, with patient in significant amounts of pain. Dr. Monteiro of Urology notified. Approx 2345: Per Urology, if patency does not return within 15 minutes, remove catheter. Currently: No return of patency. Catheter removed by this RN, Urology to see patient in AM. Bed locked in lowest possible position, bed alarm on.
[2024-10-29] MEDS: 0.9 % Sodium Chloride Flush 3 ML SYRINGE IVFLUSH ×4 (00:17→23:10)
--- NOTE | 2024-10-29 01:04 | PM.EVENT ---
Documented by User: Daquan Anguiano NP 10/29/24 01:07 Event Note Date of Service: 10/29/24 Event Note: Overnight patient rojas, not patent, despite multiple attempts by nursing staff and my self at manually irrigating. Urology, contacted, and advise remove rojas. Urology will come see patient early in the AM Time Spent With Patient Time: Total time managing care of this patient today ____ minutes. Documented by User: Kalli Caraballo MD 10/29/24 08:17 Event Note Date of Service: 10/29/24
[2024-10-29] MEDS: HYDROmorphone HCl 1 MG/ML SYRINGE IVPUSH ×3 (04:16→16:01)
[2024-10-29 05:21] LABS: VBG HCO3 44 mmol/L (22-26); VBG pCO2 53 mmHg; VBG pH 7.52 (7.32-7.43); VBG pO2 49 mmHg
[2024-10-29 05:22] LABS: Venous Blood Gas Refer to POC result
[2024-10-29] MEDS: Pantoprazole Sodium 40 MG/10 ML VIAL IVPUSH ×2 (05:45→15:30)
[2024-10-29 05:55] LABS: MANUAL DIFF FLAG NO
[2024-10-29 05:56] LABS: Basophils Absolute Auto 0.1 X10*3/uL (0.0-0.2); Basophils Percent Auto 0.7 % (0-2); Eosinophils Absolute Auto 0.3 X10*3/uL (0.0-0.4); Hematocrit 21.4 % (42.0-52.0); Imm Gran Abs Auto 0.03 X10*3/uL (0.00-0.03); Imm Gran Pct Auto 0.4 % (0.0-0.4); Lymphocytes Absolute Auto 0.9 X10*3/uL (1.2-4.9); Lymphocytes Percent Auto 12.3 % (20-40); Mean Corpuscular HGB Conc 32.7 g/dl (31.0-36.0); Mean Corpuscular Hemoglobin 32.7 pg (27.0-33.0); Mean Platelet Volume 10.3 fL (9.4-12.4); Monocytes Absolute Auto 0.9 X10*3/uL (0.1-1.2); Monocytes Percent Auto 13.4 % (2-11); Neutrophils Absolute Auto 4.8 x10*3/uL (2.0-8.3); Neutrophils Percent Auto 69.2 % (45-73); Red Blood Count 2.14 X10*6/uL (4.60-5.80); Red Cell Distribution Width 18.7 % (11.0-16.0); White Blood Count 6.9 X10*3/uL (4.8-10.8)
[2024-10-29 05:58] LABS: Platelet Count 33 X10*3/uL (160-400)
[2024-10-29 06:15] LABS: Anion Gap 13 (12-20); Blood Urea Nitrogen 41 mg/dL (9-16); Calcium 9.3 mg/dL (8.4-10.2); Carbon Dioxide 33 mmol/L (22-29); Chloride 100 mmol/L (96-108); Creatinine Clr Calc Pharmacy 94.1; Estimated Glomerular Filt Rate > 60; Glucose Random 133 mg/dL (60-115); Phosphorus 3.2 mg/dL (2.7-4.5); Potassium 4.1 mmol/L (3.3-5.1); Sodium 142 mmol/L (135-145)
--- NOTE | 2024-10-29 06:26 | HO.SKINPHOTO ---
Location: Coccyx/buttocks Category: MASD Location: buttock/perineal area Category: MASD
[2024-10-29] MEDS: Midodrine HCl 5 MG TABLET PO ×2 (08:19→15:31)
[2024-10-29] MEDS: Furosemide 40 MG TABLET PO (08:20)
[2024-10-29] MEDS: Lactulose 20 GM/30 ML SOLUTION PO (08:20)
[2024-10-29] MEDS: cefTRIAXone sodium 2 GM VIAL IVPUSH (08:20)
--- NOTE | 2024-10-29 08:20 | P.PNCC_ITS ---
Subjective Subjective Date of Service: 10/29/24 Interval History: no significant overnight events; obstructed Barber, removed Critical Care Time (minutes): 0 Physical Exam 2 Vital Signs: Vital Signs: Last Vital Signs Temp 98.5 F 10/29/24 08:00 Pulse 73 10/29/24 08:00 Resp 20 10/29/24 08:00 BP 114/57 L 10/29/24 08:00 Pulse Ox 92 10/29/24 08:00 O2 Del Method Nasal Cannula 10/29/24 08:00 O2 Flow Rate 2 10/29/24 08:00 FiO2 21 10/27/24 11:23 BMI result Body Mass Index 31.5 Const: Other: appreciably jaundiced, chronically-ill appearing General: cooperative, comfortable, no acute distress, well developed, alert, awake and Physically active Orientation/consciousness: patient oriented x3 HEENT: Head: Yes normal to inspection, Yes normocephalic and Yes atraumatic Eyes: General: appearance normal, both eyes and all related structures Neck: Neck: Yes normal visual inspection, Yes full ROM, Yes no meningeal signs, Yes trachea midline and Yes supple Chest: Chest palpation & inspection: normal inspection of the chest Resp: Other: no appreciable rales, rhonchi, wheezing Effort & Inspection: normal respiratory effort Cardio: Rate: regular rate Rhythm: regular rhythm GI: Inspection: Yes normal to inspection, No Abdominal wall edema and No distended Palpation (GI): Soft to palpation, not firm, nontender, no guarding and not rigid : Male General Exam: Yes normal external exam Skin: Other: jaundiced throughout Neuro: General: patient oriented x3, tone normal, moves all extremities, no meningeal signs and no focal motor deficits Extrem: General: Yes normal to inspection, Yes full ROM, Yes capillary refill normal and Yes no clubbing, cyanosis or edema Psych: Appearance: grossly normal Objective Data Labs 10/29/24 05:09 10/29/24 05:09 Labs: Laboratory Results - last 24 hr 10/28/24 10/28/24 10/28/24 07:21 09:08 20:10 WBC 7.0 RBC 2.22 L Hgb 7.3 L Hct 21.8 L MCV 98.2 H MCH 32.9 MCHC 33.5 RDW 18.6 H Plt Count 35 L MPV 10.0 Immature Gran % (Auto) Neut % (Auto) Lymph % (Auto) [place] % (Auto) Eos % (Auto) Baso % (Auto) Lymph # (Auto) [place] # (Auto) Eos # (Auto) Baso # (Auto) Abs Immat Gran (auto) Absolute Neuts (auto) Absolute Nucleated RBC 0.000 Nucleated RBC % (auto) 0.0 VBG pH VBG pCO2 VBG pO2 VBG HCO3 VBG O2 Saturation VBG Base Excess Sodium 143 Potassium 3.8 Chloride 99 Carbon Dioxide 35 H Anion Gap 13 BUN 40 H Creatinine 1.06 Estim Creat Clear Calc 81.7 Estimated GFR > 60 Random Glucose 116 H Lactic Acid 1.7 Calcium 9.3 Phosphorus 3.5 Magnesium 2.0 TSH 0.12 L Free T4 0.76 Random Cortisol 9.3 Blood Type A Positive Antibody Screen NEGATIVE Crossmatch See Detail 10/29/24 05:09 WBC 6.9 RBC 2.14 L Hgb 7.0 L* Hct 21.4 L MCV 100.0 H MCH 32.7 MCHC 32.7 RDW 18.7 H Plt Count 33 L MPV 10.3 Immature Gran % (Auto) 0.4 Neut % (Auto) 69.2 Lymph % (Auto) 12.3 L [place] % (Auto) 13.4 H Eos % (Auto) 4.0 Baso % (Auto) 0.7 Lymph # (Auto) 0.9 L [place] # (Auto) 0.9 Eos # (Auto) 0.3 Baso # (Auto) 0.1 Abs Immat Gran (auto) 0.03 Absolute Neuts (auto) 4.8 Absolute Nucleated RBC 0.000 Nucleated RBC % (auto) 0.0 VBG pH 7.52 H VBG pCO2 53 VBG pO2 49 VBG HCO3 44 H VBG O2 Saturation Not Reportable VBG Base Excess 20.0 Sodium 142 Potassium 4.1 Chloride 100 Carbon Dioxide 33 H Anion Gap 13 BUN 41 H Creatinine 0.94 Estim Creat Clear Calc 94.1 Estimated GFR > 60 Random Glucose 133 H Lactic Acid Calcium 9.3 Phosphorus 3.2 Magnesium 2.0 TSH Free T4 Random Cortisol Blood Type Antibody Screen Crossmatch Microbiology Microbiology Results: Microbiology 10/22/24 Unknown Urine clean catch - Clean Catch Midstream Urine Culture - Final No growth. Progress Note: A&P Assessment and plan (1) Acute upper gastrointestinal bleeding: Status: Acute (2) Esophageal varices: Status: Acute (3) Gross hematuria: Status: Acute Plan Patient is a 59 Y M w/ prior prostate cancer, s/p radiation, c/b radiation cystitis, alcohol misuse c/b cirrhosis, c/b esophageal varices, upper GI bleed, initially presented to emergency department on 10/21 w/ hematemesis, underwent EGD on 10/21, found to have bleeding esophageal varices, s/p banding; ICU course c/b extubation, re-intubation, and hemorrhagic shock N: encephalopathy, likely multi-factorial, improved; hepatic encephalopathy prophylaxis w/ lactulose CV: hypotension, unclear etiology; s/p norepinephrine gtt, started midodrine this admission R: no acute issues GI: alcohol misuse c/b cirrhosis, esophageal varices, s/p banding; ceftriaxone, pantoprazole BID; appreciate gastroenterology recommendations; anorexia, TPN, advance PO diet as tolerated : to monitor renal indices; prostate cancer s/p radiation c/b radiation cystitis, hematuria; appreciate urology recommendations H: esophageal varices c/b hemorrhage; to maintain Hb >7, PLT > 100 if possible; to hold chemical DVT prophylaxis, mechanical devices ID: empiric ceftriaxone in setting of esophageal varices E: no acute issues; to monitor hypo-/hyper-glycemia P: alcohol misuse; addiction medicine when possible Quality Stroke Does the patient have a stroke diagnosis?: No VTE Prior VTE?: No VTE Risk Level:: Medical - moderate - high VTE Device Contraindication: N/A - Device Ordered VTE Drug Contraindication: Treatment Not Tolerated
--- NOTE | 2024-10-29 09:53 | MHC.CLN ---
F/U DIET ADVANCED TO REGULAR NO PO RECORDED AT THIS TIME REVIEWED LABS DISCUSSED WITH PHARMACY CONTINUE TPN AT MAX GOAL RATE 90ML/HR WITH 57G LIPIDS PROVIDES 2104KCALS (30KCALS/KG BASED ON IBW), 324G DEXTROSE, 108G PROTEIN (1.5G/KG) FORMULA WILL PROMOTE WOUND HEALING REPLETE LYTES NEEDED GOAL WILL REDUCE TPN PO INTAKE IMPROVES
--- NOTE | 2024-10-29 14:28 | MHC.CM.PN ---
Pt to transfer to [facility] today after significant progress made in ICU: pt will need formal PT/OT evals for likely SNF placement d/t multiple comorbid conditions and high level of care needed. Referrals have not been made: orders for evals placed
--- NOTE | 2024-10-29 15:48 | PC.NURSE ---
Addendum entered by Neil Pat RN 10/29/24 16:43: Procedure complete - unable to advance scope through urethra r/t scar tissue. Plan to monitor and anticipate spontaneous voids. Addendum entered by Neil Pat RN 10/29/24 16:04: Patient exeriencing large amt of pain, moaning with any manipulation of bladder area by Dr Angelito Will MD order to give PRN dilaudid early (was due at 1619). Given per MD order - see MAR for documentation. Original Note: Dr Angelito Will at bedside - preparing for catheter insertion for CBI.
--- NOTE | 2024-10-29 17:14 | PC.NURSE ---
Pt. downgraded from ICU to med-tele. TLC left in place per MD as pt. is receiving TPN. Order for IR PICC placement placed by .
[2024-10-29] MEDS: Tamsulosin HCL 0.4 MG CAPSULE PO (23:10)
[2024-10-29] MEDS: Parenteral Nutrition 2,160 ML 90 ML IV (23:10)
[2024-10-30 03:52] VITALS: BP 118/57; PULSE 80; RESP 18; TEMP 36.1; O2SAT 99
[2024-10-30 06:00] VITALS: BMI 31.6
[2024-10-30 06:55] LABS: MANUAL DIFF FLAG NO
[2024-10-30 06:59] LABS: Basophils Absolute Auto 0.1 X10*3/uL (0.0-0.2); Basophils Percent Auto 0.7 % (0-2); Eosinophils Absolute Auto 0.2 X10*3/uL (0.0-0.4); Eosinophils Percent Auto 2.9 % (0-4); Hematocrit 23.6 % (42.0-52.0); Hemoglobin 8.2 g/dl (14.0-18.0); Imm Gran Abs Auto 0.05 X10*3/uL (0.00-0.03); Imm Gran Pct Auto 0.7 % (0.0-0.4); Lymphocytes Absolute Auto 0.7 X10*3/uL (1.2-4.9); Lymphocytes Percent Auto 9.7 % (20-40); Mean Corpuscular HGB Conc 34.7 g/dl (31.0-36.0); Mean Corpuscular Hemoglobin 33.3 pg (27.0-33.0); Mean Corpuscular Volume 95.9 fL (80.0-98.0); Mean Platelet Volume 11.1 fL (9.4-12.4); Monocytes Absolute Auto 0.9 X10*3/uL (0.1-1.2); Monocytes Percent Auto 11.2 % (2-11); Neutrophils Absolute Auto 5.7 x10*3/uL (2.0-8.3); Neutrophils Percent Auto 74.8 % (45-73); Red Blood Count 2.46 X10*6/uL (4.60-5.80); Red Cell Distribution Width 18.4 % (11.0-16.0); White Blood Count 7.6 X10*3/uL (4.8-10.8)
[2024-10-30 07:00] LABS: Platelet Count 27 X10*3/uL (160-400)
[2024-10-30 07:15] LABS: Anion Gap 14 (12-20); Blood Urea Nitrogen 38 mg/dL (9-16); Calcium 9.4 mg/dL (8.4-10.2); Carbon Dioxide 32 mmol/L (22-29); Chloride 96 mmol/L (96-108); Creatinine Clr Calc Pharmacy 119.6; Estimated Glomerular Filt Rate > 60; Glucose Random 143 mg/dL (60-115); Magnesium 1.9 mg/dL (1.6-2.6); Phosphorus 2.5 mg/dL (2.7-4.5); Potassium 4.3 mmol/L (3.3-5.1); Sodium 138 mmol/L (135-145)
[2024-10-30 07:33] VITALS: BP 112/59; PULSE 73; RESP 16; TEMP 36.5; O2SAT 100
[2024-10-30] MEDS: 0.9 % Sodium Chloride Flush 3 ML SYRINGE IVFLUSH ×3 (08:27→20:37)
[2024-10-30] MEDS: cefTRIAXone sodium 2 GM VIAL IVPUSH (08:27)
[2024-10-30] MEDS: Furosemide 40 MG TABLET PO (08:27)
[2024-10-30] MEDS: Midodrine HCl 5 MG TABLET PO ×3 (08:27→20:37)
[2024-10-30 08:56] LABS: Albumin Level 3.4 g/dL (3.5-5.0)
[2024-10-30 11:27] VITALS: BP 103/51; PULSE 78; RESP 20; TEMP 36.7; O2SAT 100
--- NOTE | 2024-10-30 12:11 | P.PNIM_ITS ---
Subjective Subjective Date of Service: 10/30/24 Interval History: lethargy, no appetite, abd distension Physical Exam 2 Vital Signs: Vital Signs: Last Vital Signs Temp 98.0 F 10/30/24 11:27 Pulse 78 10/30/24 11:27 Resp 20 10/30/24 11:27 BP 103/51 L 10/30/24 11:27 Pulse Ox 100 10/30/24 11:27 O2 Del Method Nasal Cannula 10/30/24 11:27 O2 Flow Rate 3 10/30/24 11:27 FiO2 21 10/27/24 11:23 BMI result Body Mass Index 31.6 General: Lethargic, oriented x3, ill-appearing, jaundiced Resp: Diminished bilateral, no accessory muscles used CVS: S1,S2,RRR GI: soft, distended, nontender Neuro: motor grossly weak Objective Data Active Medications Ceftriaxone Sodium (Ceftriaxone Sodium 2 Gm Vial) 2 gm IVPUSH Q24H [facility] Last Admin: 10/30/24 08:27 Dose: 2 gm Documented By: ARACELI Furosemide (Furosemide 40 Mg Tablet) 40 mg PO DAILY [facility]; Protocol Last Admin: 10/30/24 08:27 Dose: 40 mg Documented By: ARACELI Hydromorphone HCl (Hydromorphone Hcl 1 Mg/Ml Syringe) 1 mg IVPUSH Q4H PRN; Protocol PRN Reason: Pain, Severe (Pain Scale 7-10) Last Admin: 10/29/24 16:01 Dose: 1 mg Documented By: JUDITH Nutrition (Parenteral) (Parenteral Nutrition) 2,160 mls @ 90 mls/hr IV .Q24H [facility]; Protocol Stop: 10/30/24 20:59 Last Admin: 10/29/24 23:10 Dose: 90 mls/hr Documented By: KEL Nutrition (Parenteral) (Parenteral Nutrition) 2,160 mls @ 90 mls/hr IV .Q24H [facility]; Protocol Stop: 10/31/24 20:59 Lactulose (Lactulose 20 Gm/30 Ml Solution) 20 gm PO DAILY [facility] Last Admin: 10/30/24 08:29 Dose: Not Given Documented By: ARACELI Non-Admin Reason: Patient Refused Midodrine (Midodrine Hcl 5 Mg Tablet) 5 mg PO TID [facility] Last Admin: 10/30/24 08:27 Dose: 5 mg Documented By: ARACELI Ondansetron HCl (Ondansetron Hcl 4 Mg/2 Ml Vial) 4 mg IVPUSH Q4H PRN PRN Reason: Nausea and Vomiting Last Admin: 10/28/24 08:41 Dose: 4 mg Documented By: NEVAEH Pharmacy Consult (Consult Rx Parenteral Nutrition Ordering) 1 each MISCELLANE DAILY PRN PRN Reason: Consult order Phenazopyridine HCl (Phenazopyridine Hcl 200 Mg Tablet) 200 mg PO TID PRN PRN Reason: Perineal Discomfort Last Admin: 10/27/24 16:08 Dose: 200 mg Documented By: JESSICA Sodium Chloride (0.9 % Sodium Chloride Flush 3 Ml Syringe) 3 ml IVFLUSH QSHIFT [facility] Last Admin: 10/30/24 08:27 Dose: 3 ml Documented By: ARACELI Tamsulosin HCl (Tamsulosin Hcl 0.4 Mg Capsule) 0.4 mg PO BEDTIME [facility] Last Admin: 10/29/24 23:10 Dose: 0.4 mg Documented By: KEL Labs 10/30/24 06:32 10/30/24 06:32 Labs: Laboratory Results - last 24 hr 10/28/24 10/30/24 07:21 06:32 MCV 95.9 MCH 33.3 H MCHC 34.7 RDW 18.4 H Plt Count 27 L MPV 11.1 Immature Gran % (Auto) 0.7 H Neut % (Auto) 74.8 H Lymph % (Auto) 9.7 L [place] % (Auto) 11.2 H Eos % (Auto) 2.9 Baso % (Auto) 0.7 Lymph # (Auto) 0.7 L [place] # (Auto) 0.9 Eos # (Auto) 0.2 Baso # (Auto) 0.1 Abs Immat Gran (auto) 0.05 H Absolute Neuts (auto) 5.7 Absolute Nucleated RBC 0.000 Nucleated RBC % (auto) 0.0 Anion Gap 14 Estim Creat Clear Calc 119.6 Estimated GFR > 60 Random Glucose 143 H Calcium 9.4 Phosphorus 2.5 L Magnesium 1.9 Albumin 3.4 L Crossmatch See Detail Assessment and Plan (1) Esophageal varices: Status: Acute Plan 59M PMH decompensated alcohol cirrhosis with history of variceal bleed, ascites, encephalopathy, prostate CA with urethral obstruction, presented initially with hematuria and then developed hematemesis in the ED was admitted to the ICU for hemorrhagic shock due to acute blood loss anemia from variceal bleed which was banded complicated by acute hypoxic respiratory failure requiring intubation. Patient eventually extubated and downgraded to medical floor on 10/29/2024. Acute metabolic encephalopathy, acute hemorrhagic shock due to blood loss anemia from variceal bleed due to alcoholic cirrhosis, acute hypoxic respiratory failure Now extubated and downgraded to medical floor, mental status improving, close to baseline Hematemesis resolved hemoglobin stabilized Status post octreotide and empiric ceftriaxone Continue PPI and Carafate Had paracentesis 10/24/2024 not consistent with SBP, still distended with poor appetite we will get repeat continue ppn for now until intake improves Ongoing hematuria Currently nonobstructed, requiring occasional transfusion, Urology following DVT prophylaxis-mechanical due to hematuria on recent variceal bleed DNR/DNI reason for continued hospitalization:ongoing hematuria Quality Stroke Does the patient have a stroke diagnosis?: No VTE Prior VTE?: No VTE Risk Level:: Medical - moderate - high VTE Device Contraindication: N/A - Device Ordered VTE Drug Contraindication: Treatment Not Tolerated
--- NOTE | 2024-10-30 12:17 | MHC.CLN ---
F/U DIET ADVANCED TO REGULAR POOR PO AT THIS TIME PT HAS RECEIVED ONLY ONE MEAL TRAY PER PT FAMILY MEMBER REPORTED PT NOT EATING AT ALL REVIEWED LABS DISCUSSED WITH PHARMACY CONTINUE TPN AT MAX GOAL RATE 90ML/HR WITH 57G LIPIDS PROVIDES 2104KCALS (30KCALS/KG BASED ON IBW), 324G DEXTROSE, 108G PROTEIN (1.5G/KG) FORMULA WILL PROMOTE WOUND HEALING REPLETE LYTES NEEDED GOAL WILL REDUCE TPN PO INTAKE IMPROVES
[2024-10-30] MEDS: HYDROmorphone HCl 1 MG/ML SYRINGE IVPUSH (12:40)
--- NOTE | 2024-10-30 14:11 | MHC.CM.PN ---
Addendum entered by Alicia Pierre 10/30/24 14:19: CM met with pt and , pt. said that he is not going to [facility]. His reported that he has been to [facility] in the past. She is feeling like he would benefit from a short stay in rehab, he still said he will not go. CM told them I will check in with them tomorrow. Addendum entered by Alicia Pierre 10/30/24 14:12: PT and OT rec [facility], referrals out. Original Note: Per rounds and EMR review, pt is not ready for DC, he is not eating very much, on TPN, and requiring further treatment for hematuria. CM to follow for DC needs.
[2024-10-30 15:32] VITALS: BP 106/55; PULSE 82; RESP 16; TEMP 36.7; O2SAT 98
[2024-10-30] MEDS: Sucralfate 1 GM TABLET PO ×2 (15:53→20:37)
[2024-10-30] MEDS: Omeprazole 20 MG CAPSULE.DR PO (15:53)
--- NOTE | 2024-10-30 16:05 | HO.WOUND ---
Wound Consult: Initial 59yr old? Male [place] [facility] [place]- See progress notes and H&P for detailed history.? Wound consult placed for MASD (Moisture Associated Skin Damage ) to buttock.? Patient agreeable to assessment and photo documentation.? Patient reports the wound to his bottom is from his sedentary lifestyle at home - he denies incontinence however is incontinent of urine with nonfunctioning purewick in place and Flexiseal in place. Buttocks / Sacrum / Coccyx Etiology: ??MASD (Moisture Associated Skin Damage ) Wound Bed: red pink blanchable tissue throughout bilateral buttocks assessed for scattered areas of red clean pink tissue partial thickness tissue loss - consistent with friction and not pressure Drainage / Odor: scant Sanginous drainage noted after cleansing Edges: ? Irregular Alesha wound: ?Dark hyperpigmented tissue - evidence of chronic moistures - No Induration, Fluctuance or Warmth noted Pain: reported pain and tenderness Goals of Treatment: ? Barrier cream to aid in protect from moisture and friction - foam dressing to sacrum to protect from friction and pressure Recommendations: 1. Turn and Reposition every 2 hours and as needed for patient comfort.? Use pillows or wedges to support off loading positions. 2. Off Load all bony prominences with use of pillows and heel boots if needed.? Apply Preventative foams where needed. ? 3. Monitor for incontinence and moisture control, use barrier creams when needed for prevention and treatment. 4. Provide adequate and supplemental nutrition.? 5. Order or Continue low air loss mattress. 6. When applicable maintain blood glucose levels per Providers order. 7. Sacrum and Buttock- Routine Cleansing with PH balanced wipes. Apply barrier cream twice daily and after incontinence episodes. Apply preventative sacral foam dressing - peel back and assess Q shift and change every 5-7 days. 8. Bilateral Heels - Elevate heels off of bed surface with pillows. Apply foam dressings to aid in pressure redistribution and protect from friction. Peel back and assess Q shift and change ever 5-7 days. Re-consult wound care Nurse for wound deterioration or wound changes.
[2024-10-30] MEDS: Phenazopyridine HCL 200 MG TABLET PO (18:14)
[2024-10-30 20:00] VITALS: BP 113/55; PULSE 90; RESP 18; TEMP 36.9; O2SAT 95
[2024-10-30] MEDS: Tamsulosin HCL 0.4 MG CAPSULE PO (20:37)
[2024-10-30] MEDS: Parenteral Nutrition 2,160 ML 90 ML IV (20:37)
[2024-10-30 23:59] VITALS: BP 101/47; PULSE 82; RESP 16; TEMP 36.4; O2SAT 92
[2024-10-31] MEDS: HYDROmorphone HCl 1 MG/ML SYRINGE IVPUSH ×2 (02:57→15:38)
[2024-10-31 04:00] VITALS: BP 102/52; PULSE 82; RESP 24; TEMP 37.1; O2SAT 96
[2024-10-31 07:09] LABS: MANUAL DIFF FLAG NO
[2024-10-31 07:18] LABS: Mean Platelet Volume 11.6 fL (9.4-12.4); PLT CLUMP 1; SCAN SMEAR FLAG 1
[2024-10-31 07:19] LABS: Basophils Absolute Auto 0.1 X10*3/uL (0.0-0.2); Basophils Percent Auto 0.7 % (0-2); Eosinophils Absolute Auto 0.2 X10*3/uL (0.0-0.4); Eosinophils Percent Auto 3.3 % (0-4); Imm Gran Abs Auto 0.06 X10*3/uL (0.00-0.03); Imm Gran Pct Auto 0.9 % (0.0-0.4); Lymphocytes Percent Auto 13.8 % (20-40); Mean Corpuscular HGB Conc 33.3 g/dl (31.0-36.0); Mean Corpuscular Hemoglobin 32.7 pg (27.0-33.0); Mean Corpuscular Volume 98.1 fL (80.0-98.0); Monocytes Absolute Auto 0.7 X10*3/uL (0.1-1.2); Monocytes Percent Auto 10.6 % (2-11); Neutrophils Absolute Auto 4.9 x10*3/uL (2.0-8.3); Neutrophils Percent Auto 70.7 % (45-73); Red Blood Count 2.11 X10*6/uL (4.60-5.80); Red Cell Distribution Width 18.1 % (11.0-16.0)
[2024-10-31 07:20] LABS: INTERNATIONAL NORM RATIO 2.4 (0.9-1.1); Prothrombin Time 28.1 SEC (10.9-12.4)
[2024-10-31 07:33] LABS: Alanine Aminotransferase 41 U/L (0-40); Albumin Level 3.2 g/dL (3.5-5.0); Alkaline Phosphatase 80 U/L (39-117); Anion Gap 11 (12-20); Aspartate Amino Transferase 79 U/L (5-37); Bilirubin Direct 4.7 mg/dL (0.0-0.5); Bilirubin Total 8.6 mg/dL (0.0-1.0); Blood Urea Nitrogen 41 mg/dL (9-16); Calcium 9.1 mg/dL (8.4-10.2); Carbon Dioxide 34 mmol/L (22-29); Chloride 97 mmol/L (96-108); Estimated Glomerular Filt Rate > 60; Glucose Random 123 mg/dL (60-115); Hemoglobin 6.9 g/dl (14.0-18.0); Magnesium 2.1 mg/dL (1.6-2.6); Phosphorus 3.1 mg/dL (2.7-4.5); Potassium 4.9 mmol/L (3.3-5.1); Sodium 137 mmol/L (135-145); Total Protein 5.8 g/dL (6.5-8.0)
[2024-10-31 07:34] VITALS: BP 111/56; PULSE 84; RESP 18; TEMP 36.7; O2SAT 95
[2024-10-31 07:34] LABS: Hematocrit 20.7 % (42.0-52.0)
[2024-10-31 07:35] LABS: Platelet Count 20 X10*3/uL (160-400)
[2024-10-31] MEDS: cefTRIAXone sodium 2 GM VIAL IVPUSH (08:42)
[2024-10-31] MEDS: Midodrine HCl 5 MG TABLET PO ×3 (08:42→21:31)
[2024-10-31] MEDS: Sucralfate 1 GM TABLET PO ×4 (08:42→21:31)
[2024-10-31] MEDS: 0.9 % Sodium Chloride Flush 3 ML SYRINGE IVFLUSH ×3 (08:42→21:31)
[2024-10-31] MEDS: Furosemide 40 MG TABLET PO ×3 (08:42→09:25)
--- NOTE | 2024-10-31 10:48 | MHC.CLN ---
F/U POOR PO 0-25% DIET RX: REGULAR TPN TO CONTINUE AT THIS TIME REVIEWED LABS DISCUSSED WITH PHARMACY CONTINUE TPN AT MAX GOAL RATE 90ML/HR WITH 57G LIPIDS PROVIDES 2104KCALS (30KCALS/KG BASED ON IBW), 324G DEXTROSE, 108G PROTEIN (1.5G/KG) FORMULA WILL PROMOTE WOUND HEALING REPLETE LYTES NEEDED GOAL WILL REDUCE TPN PO INTAKE IMPROVES
--- NOTE | 2024-10-31 11:03 | HO.PM.IMPN ---
Subjective Subjective Date of Service: 10/31/24 Interval History: no further hematuria, slight improvement in appetite Physical Exam Vital Signs: Vital Signs: Last Vital Signs Temp 98.0 F 10/31/24 07:34 Pulse 84 10/31/24 07:34 Resp 18 10/31/24 07:34 BP 111/56 L 10/31/24 07:34 Pulse Ox 95 10/31/24 07:34 O2 Del Method Nasal Cannula 10/31/24 07:34 O2 Flow Rate 3 10/31/24 07:34 FiO2 21 10/27/24 11:23 BMI result Body Mass Index 30.0 General: Lethargic, oriented x3, ill-appearing, jaundiced Resp: Diminished bilateral, no accessory muscles used CVS: S1,S2,RRR GI: soft, distended, nontender Neuro: motor grossly weak Objective Data Active Medications Ceftriaxone Sodium (Ceftriaxone Sodium 2 Gm Vial) 2 gm IVPUSH Q24H [facility] Last Admin: 10/31/24 08:42 Dose: 2 gm Documented By: JULIUS Furosemide (Furosemide 40 Mg/4 Ml Vial) 40 mg IVPUSH BID@0900,1800 [facility]; Protocol Hydromorphone HCl (Hydromorphone Hcl 1 Mg/Ml Syringe) 1 mg IVPUSH Q4H PRN; Protocol PRN Reason: Pain, Severe (Pain Scale 7-10) Last Admin: 10/31/24 02:57 Dose: 1 mg Documented By: KEL Nutrition (Parenteral) (Parenteral Nutrition) 2,160 mls @ 90 mls/hr IV .Q24H [facility]; Protocol Stop: 10/31/24 20:59 Last Admin: 10/30/24 20:37 Dose: 90 mls/hr Documented By: KHALIF-WILFREDO Nutrition (Parenteral) (Parenteral Nutrition) 2,160 mls @ 90 mls/hr IV .Q24H [facility]; Protocol Stop: 11/01/24 20:59 Albumin Human (Kedbumin 25 %) 100 mls @ 100 mls/hr IV Q6H [facility] Stop: 11/01/24 05:44 Lactulose (Lactulose 20 Gm/30 Ml Solution) 20 gm PO DAILY [facility] Last Admin: 10/31/24 08:42 Dose: Not Given Documented By: JULIUS Non-Admin Reason: Patient Refused Midodrine (Midodrine Hcl 5 Mg Tablet) 5 mg PO TID [facility] Last Admin: 10/31/24 08:42 Dose: 5 mg Documented By: JULIUS Omeprazole (Omeprazole 20 Mg Capsule.) 20 mg PO BID@0630,1630 [facility] Last Admin: 10/31/24 06:59 Dose: Not Given Documented By: KEL Non-Admin Reason: Patient Refused Ondansetron HCl (Ondansetron Hcl 4 Mg/2 Ml Vial) 4 mg IVPUSH Q4H PRN PRN Reason: Nausea and Vomiting Last Admin: 10/28/24 08:41 Dose: 4 mg Documented By: NEVAEH Pharmacy Consult (Consult Rx Parenteral Nutrition Ordering) 1 each MISCELLANE DAILY PRN PRN Reason: Consult order Phenazopyridine HCl (Phenazopyridine Hcl 200 Mg Tablet) 200 mg PO TID PRN PRN Reason: Perineal Discomfort Last Admin: 10/30/24 18:14 Dose: 200 mg Documented By: ARACELI Sodium Chloride (0.9 % Sodium Chloride Flush 3 Ml Syringe) 3 ml IVFLUSH QSHIFT [facility] Last Admin: 10/31/24 08:42 Dose: 3 ml Documented By: JULIUS Sucralfate (Sucralfate 1 Gm Tablet) 1 gm PO QIDACHS [facility] Last Admin: 10/31/24 08:42 Dose: 1 gm Documented By: JULIUS Tamsulosin HCl (Tamsulosin Hcl 0.4 Mg Capsule) 0.4 mg PO BEDTIME [facility] Last Admin: 10/30/24 20:37 Dose: 0.4 mg Documented By: KEL Labs 10/31/24 06:38 10/31/24 06:38 Labs: Laboratory Results - last 24 hr 10/31/24 10/31/24 10/31/24 06:38 06:38 06:38 MCV 98.1 H Cancelled MCH 32.7 Cancelled MCHC 33.3 RDW Plt Count MPV Immature Gran % (Auto) Neut % (Auto) Lymph % (Auto) [place] % (Auto) Eos % (Auto) Baso % (Auto) Lymph # (Auto) [place] # (Auto) Eos # (Auto) Baso # (Auto) Abs Immat Gran (auto) Absolute Neuts (auto) Absolute Nucleated RBC Nucleated RBC % (auto) PT INR Anion Gap Estim Creat Clear Calc Estimated GFR Random Glucose Calcium Phosphorus Magnesium Total Bilirubin Direct Bilirubin AST ALT Alkaline Phosphatase Total Protein Albumin Blood Type Antibody Screen Crossmatch 10/31/24 10/31/24 10/31/24 06:38 06:38 06:38 MCV MCH MCHC Cancelled RDW 18.1 H Cancelled Plt Count 20 L* Cancelled MPV 11.6 Immature Gran % (Auto) Neut % (Auto) Lymph % (Auto) [place] % (Auto) Eos % (Auto) Baso % (Auto) Lymph # (Auto) [place] # (Auto) Eos # (Auto) Baso # (Auto) Abs Immat Gran (auto) Absolute Neuts (auto) Absolute Nucleated RBC Nucleated RBC % (auto) PT INR Anion Gap Estim Creat Clear Calc Estimated GFR Random Glucose Calcium Phosphorus Magnesium Total Bilirubin Direct Bilirubin AST ALT Alkaline Phosphatase Total Protein Albumin Blood Type Antibody Screen Crossmatch 10/31/24 10/31/24 10/31/24 06:38 06:38 06:38 MCV MCH MCHC RDW Plt Count MPV Cancelled Immature Gran % (Auto) 0.9 H Neut % (Auto) 70.7 Lymph % (Auto) 13.8 L [place] % (Auto) 10.6 Eos % (Auto) 3.3 Baso % (Auto) 0.7 Lymph # (Auto) 1.0 L [place] # (Auto) 0.7 Eos # (Auto) 0.2 Baso # (Auto) 0.1 Abs Immat Gran (auto) 0.06 H Absolute Neuts (auto) 4.9 Absolute Nucleated RBC 0.000 Cancelled Nucleated RBC % (auto) 0.0 Cancelled PT 28.1 H INR 2.4 H Anion Gap 11 L Estim Creat Clear Calc 123.0 Estimated GFR > 60 Random Glucose 123 H Calcium 9.1 Phosphorus 3.1 Magnesium 2.1 Total Bilirubin 8.6 H Direct Bilirubin 4.7 H AST 79 H ALT 41 H Alkaline Phosphatase 80 Total Protein 5.8 L Albumin 3.2 L Blood Type Antibody Screen Crossmatch 10/31/24 08:30 MCV MCH MCHC RDW Plt Count MPV Immature Gran % (Auto) Neut % (Auto) Lymph % (Auto) [place] % (Auto) Eos % (Auto) Baso % (Auto) Lymph # (Auto) [place] # (Auto) Eos # (Auto) Baso # (Auto) Abs Immat Gran (auto) Absolute Neuts (auto) Absolute Nucleated RBC Nucleated RBC % (auto) PT INR Anion Gap Estim Creat Clear Calc Estimated GFR Random Glucose Calcium Phosphorus Magnesium Total Bilirubin Direct Bilirubin AST ALT Alkaline Phosphatase Total Protein Albumin Blood Type A Positive Antibody Screen NEGATIVE Crossmatch See Detail Assessment and Plan (1) Esophageal varices: Status: Acute Plan 59M PMH decompensated alcohol cirrhosis with history of variceal bleed, ascites, encephalopathy, prostate CA with urethral obstruction, presented initially with hematuria and then developed hematemesis in the ED was admitted to the ICU for hemorrhagic shock due to acute blood loss anemia from variceal bleed which was banded complicated by acute hypoxic respiratory failure requiring intubation. Patient eventually extubated and downgraded to medical floor on 10/29/2024. Acute metabolic encephalopathy, acute hemorrhagic shock due to blood loss anemia from variceal bleed due to alcoholic cirrhosis, acute hypoxic respiratory failure Now extubated and downgraded to medical floor, mental status improving, close to baseline Hematemesis resolved hemoglobin lower today, likely mostly due to hematuria - will transfuse 1 unit prbc Status post octreotide and empiric ceftriaxone Continue PPI and Carafate Had paracentesis 10/24/2024 not consistent with SBP, still distended with poor appetite but appears to be more interstitial than ascites - will given albumin with lasix to shift fluid intravascularly continue ppn for now until intake improves Ongoing hematuria Currently nonobstructed, requiring occasional transfusion, Urology following - likely radiation and coagulatopathy provided not obstructed continue to monitor DVT prophylaxis-mechanical due to hematuria on recent variceal bleed DNR/DNI - not intersted in hospice at this time reason for continued hospitalization:not eating, anemia Quality Stroke Does the patient have a stroke diagnosis?: No VTE Prior VTE?: No VTE Risk Level:: Medical - moderate - high VTE Device Contraindication: N/A - Device Ordered VTE Drug Contraindication: Treatment Not Tolerated
[2024-10-31 11:28] VITALS: BP 112/56; PULSE 82; RESP 18; TEMP 36.7; O2SAT 95
[2024-10-31 11:56] VITALS: BP 110/54; PULSE 88; RESP 18; TEMP 36.8
[2024-10-31] MEDS: Omeprazole 20 MG CAPSULE.DR PO (15:30)
[2024-10-31] MEDS: Albumin Human 25 % 100 ML IV (15:37)
[2024-10-31 16:00] VITALS: BP 116/56; PULSE 80; RESP 20; TEMP 36.3; O2SAT 94
[2024-10-31] MEDS: Furosemide 40 MG/4 ML VIAL IVPUSH (18:12)
[2024-10-31 19:22] VITALS: BP 122/58; PULSE 83; RESP 15; TEMP 37; O2SAT 94
[2024-10-31] MEDS: Phenazopyridine HCL 200 MG TABLET PO (21:30)
[2024-10-31] MEDS: Parenteral Nutrition 2,160 ML 90 ML IV (21:30)
[2024-10-31] MEDS: Tamsulosin HCL 0.4 MG CAPSULE PO (21:31)
[2024-11-01] VITALS (13 sets, daily range): BP systolic 114–124; BP diastolic 55–88; PULSE 75–91; RESP 16–20; TEMP 36.4–37.2; O2SAT 92–95; BMI 29.5
[2024-11-01] MEDS: Albumin Human 25 % 100 ML IV ×2 (00:14→03:57)
[2024-11-01] MEDS: Melatonin 3 MG TABLET 6 MG PO ×2 (02:21→20:43)
[2024-11-01] MEDS: ondansetron HCL 4 MG/2 ML VIAL IVPUSH ×2 (02:48→13:11)
--- NOTE | 2024-11-01 03:05 | PM.EVENT ---
Event Note Date of Service: 11/01/24 Event Note: Nurse reported blood in patient's rectal tube. Will keep him NPO and reconsult Gastroenterology. Ordering octreotide and IV Protonix. Patient is on ceftriaxone. Closely monitor H&H Time Spent With Patient Time: Total time managing care of this patient today ____ minutes.
[2024-11-01] MEDS: Pantoprazole Sodium 40 MG/10 ML VIAL IVPUSH ×2 (03:56→17:26)
[2024-11-01] MEDS: Octreotide Acetate 100 MCG/ML AMPUL 50 MCG IVPUSH (03:56)
[2024-11-01] MEDS: Octreotide Acetate 500 MCG in 0.9 % Sodium Chloride 500 ML 50.1 MCG IVCONT ×2 (04:02→13:39)
[2024-11-01 07:09] LABS: MANUAL DIFF FLAG NO
[2024-11-01 07:27] LABS: Albumin Level 3.7 g/dL (3.5-5.0); Anion Gap 14 (12-20); Blood Urea Nitrogen 43 mg/dL (9-16); Calcium 9.2 mg/dL (8.4-10.2); Carbon Dioxide 30 mmol/L (22-29); Chloride 98 mmol/L (96-108); Creatinine Clr Calc Pharmacy 119.1; Estimated Glomerular Filt Rate > 60; Glucose Random 143 mg/dL (60-115); Potassium 4.6 mmol/L (3.3-5.1); Sodium 137 mmol/L (135-145)
[2024-11-01 07:34] LABS: Basophils Absolute Auto 0.1 X10*3/uL (0.0-0.2); Basophils Percent Auto 0.8 % (0-2); Eosinophils Absolute Auto 0.2 X10*3/uL (0.0-0.4); Eosinophils Percent Auto 2.9 % (0-4); Imm Gran Abs Auto 0.07 X10*3/uL (0.00-0.03); Imm Gran Pct Auto 1.1 % (0.0-0.4); Lymphocytes Absolute Auto 0.8 X10*3/uL (1.2-4.9); Lymphocytes Percent Auto 11.6 % (20-40); Mean Corpuscular HGB Conc 33.7 g/dl (31.0-36.0); Mean Corpuscular Hemoglobin 32.4 pg (27.0-33.0); Mean Corpuscular Volume 96.2 fL (80.0-98.0); Mean Platelet Volume 11.4 fL (9.4-12.4); Monocytes Absolute Auto 0.6 X10*3/uL (0.1-1.2); Monocytes Percent Auto 9.9 % (2-11); Neutrophils Absolute Auto 4.8 x10*3/uL (2.0-8.3); Neutrophils Percent Auto 73.7 % (45-73); Red Cell Distribution Width 17.4 % (11.0-16.0); White Blood Count 6.5 X10*3/uL (4.8-10.8)
[2024-11-01 07:44] LABS: Hematocrit 20.2 % (42.0-52.0); Hemoglobin 6.8 g/dl (14.0-18.0)
[2024-11-01 07:45] LABS: Platelet Count 20 X10*3/uL (160-400)
[2024-11-01] MEDS: Lactulose 20 GM/30 ML SOLUTION PO (08:51)
[2024-11-01] MEDS: Sucralfate 1 GM TABLET PO ×4 (08:52→20:44)
[2024-11-01] MEDS: cefTRIAXone sodium 2 GM VIAL IVPUSH (08:52)
[2024-11-01] MEDS: Midodrine HCl 5 MG TABLET PO ×3 (08:52→20:43)
[2024-11-01] MEDS: Furosemide 40 MG/4 ML VIAL IVPUSH ×2 (08:52→17:26)
--- NOTE | 2024-11-01 10:50 | HO.PM.IMPN ---
Subjective Subjective Date of Service: 11/01/24 Interval History: blood noted in fecal tube Physical Exam Vital Signs: Vital Signs: Last Vital Signs Temp 98.7 F 11/01/24 10:22 Pulse 80 11/01/24 10:22 Resp 16 11/01/24 10:22 BP 119/58 L 11/01/24 10:22 Pulse Ox 92 11/01/24 08:00 O2 Del Method Nasal Cannula 11/01/24 08:00 O2 Flow Rate 2 11/01/24 08:00 FiO2 21 10/27/24 11:23 BMI result Body Mass Index 29.5 General: Lethargic, oriented x3, ill-appearing, jaundiced Resp: Diminished bilateral, no accessory muscles used CVS: S1,S2,RRR GI: soft, distended, nontender Neuro: motor grossly weak Objective Data Active Medications Furosemide (Furosemide 40 Mg/4 Ml Vial) 40 mg IVPUSH BID@0900,1800 [facility]; Protocol Last Admin: 11/01/24 08:52 Dose: 40 mg Documented By: JULIUS Nutrition (Parenteral) (Parenteral Nutrition) 2,160 mls @ 90 mls/hr IV .Q24H [facility]; Protocol Stop: 11/01/24 20:59 Last Admin: 10/31/24 21:30 Dose: 90 mls/hr Documented By: ROSAMARIA Octreotide Acetate 500 mcg/ (Sodium Chloride) 501 mls @ 50.1 mls/hr IVCONT .Q10H [facility] Last Admin: 11/01/24 04:02 Dose: 50 mcg/hr, 50.1 mls/hr Documented By: ROSAMARIA Lactulose (Lactulose 20 Gm/30 Ml Solution) 20 gm PO DAILY [facility] Last Admin: 11/01/24 08:51 Dose: 20 gm Documented By: JULIUS Melatonin (Melatonin 3 Mg Tablet) 6 mg PO BEDTIME PRN PRN Reason: Insomnia Last Admin: 11/01/24 02:21 Dose: 6 mg Documented By: ROSAMARIA Midodrine (Midodrine Hcl 5 Mg Tablet) 5 mg PO TID [facility] Last Admin: 11/01/24 08:52 Dose: 5 mg Documented By: JULIUS Ondansetron HCl (Ondansetron Hcl 4 Mg/2 Ml Vial) 4 mg IVPUSH Q4H PRN PRN Reason: Nausea and Vomiting Last Admin: 11/01/24 02:48 Dose: 4 mg Documented By: ROSAMARIA Pantoprazole Sodium (Pantoprazole Sodium 40 Mg/10 Ml Vial) 40 mg IVPUSH BID@0630,1630 [facility] Last Admin: 11/01/24 03:56 Dose: 40 mg Documented By: ROSAMARIA Pharmacy Consult (Consult Rx Parenteral Nutrition Ordering) 1 each MISCELLANE DAILY PRN PRN Reason: Consult order Phenazopyridine HCl (Phenazopyridine Hcl 200 Mg Tablet) 200 mg PO TID PRN PRN Reason: Perineal Discomfort Last Admin: 10/31/24 21:30 Dose: 200 mg Documented By: ROSAMARIA Sodium Chloride (0.9 % Sodium Chloride Flush 3 Ml Syringe) 3 ml IVFLUSH QSHIFT [facility] Last Admin: 10/31/24 21:31 Dose: 3 ml Documented By: ROSAMARIA Sucralfate (Sucralfate 1 Gm Tablet) 1 gm PO QIDACHS [facility] Last Admin: 11/01/24 08:52 Dose: 1 gm Documented By: JULIUS Tamsulosin HCl (Tamsulosin Hcl 0.4 Mg Capsule) 0.4 mg PO BEDTIME [facility] Last Admin: 10/31/24 21:31 Dose: 0.4 mg Documented By: ROSAMARIA Labs 11/01/24 06:29 11/01/24 06:29 Labs: Laboratory Results - last 24 hr 10/31/24 11/01/24 11/01/24 08:30 06:29 06:29 MCV 96.2 Cancelled MCH 32.4 MCHC RDW Plt Count MPV Immature Gran % (Auto) Neut % (Auto) Lymph % (Auto) [place] % (Auto) Eos % (Auto) Baso % (Auto) Lymph # (Auto) [place] # (Auto) Eos # (Auto) Baso # (Auto) Abs Immat Gran (auto) Absolute Neuts (auto) Absolute Nucleated RBC Nucleated RBC % (auto) Anion Gap Estim Creat Clear Calc Estimated GFR Random Glucose Calcium Phosphorus Magnesium Albumin Blood Type A Positive Antibody Screen NEGATIVE Crossmatch See Detail 11/01/24 11/01/24 11/01/24 06:29 06:29 06:29 MCV MCH Cancelled MCHC 33.7 Cancelled RDW 17.4 H Cancelled Plt Count 20 L* MPV Immature Gran % (Auto) Neut % (Auto) Lymph % (Auto) [place] % (Auto) Eos % (Auto) Baso % (Auto) Lymph # (Auto) [place] # (Auto) Eos # (Auto) Baso # (Auto) Abs Immat Gran (auto) Absolute Neuts (auto) Absolute Nucleated RBC Nucleated RBC % (auto) Anion Gap Estim Creat Clear Calc Estimated GFR Random Glucose Calcium Phosphorus Magnesium Albumin Blood Type Antibody Screen Crossmatch 11/01/24 11/01/24 11/01/24 06:29 06:29 06:29 MCV MCH MCHC RDW Plt Count Cancelled MPV 11.4 Cancelled Immature Gran % (Auto) 1.1 H Neut % (Auto) 73.7 H Lymph % (Auto) 11.6 L [place] % (Auto) 9.9 Eos % (Auto) 2.9 Baso % (Auto) 0.8 Lymph # (Auto) 0.8 L [place] # (Auto) 0.6 Eos # (Auto) 0.2 Baso # (Auto) 0.1 Abs Immat Gran (auto) 0.07 H Absolute Neuts (auto) 4.8 Absolute Nucleated RBC 0.000 Cancelled Nucleated RBC % (auto) 0.0 Anion Gap Estim Creat Clear Calc Estimated GFR Random Glucose Calcium Phosphorus Magnesium Albumin Blood Type Antibody Screen Crossmatch 11/01/24 06:29 MCV MCH MCHC RDW Plt Count MPV Immature Gran % (Auto) Neut % (Auto) Lymph % (Auto) [place] % (Auto) Eos % (Auto) Baso % (Auto) Lymph # (Auto) [place] # (Auto) Eos # (Auto) Baso # (Auto) Abs Immat Gran (auto) Absolute Neuts (auto) Absolute Nucleated RBC Nucleated RBC % (auto) Cancelled Anion Gap 14 Estim Creat Clear Calc 119.1 Estimated GFR > 60 Random Glucose 143 H Calcium 9.2 Phosphorus 3.0 Magnesium 2.0 Albumin 3.7 Blood Type Antibody Screen Crossmatch Assessment and Plan (1) Esophageal varices: Status: Acute Plan 59M PMH decompensated alcohol cirrhosis with history of variceal bleed, ascites, encephalopathy, prostate CA with urethral obstruction, presented initially with hematuria and then developed hematemesis in the ED was admitted to the ICU for hemorrhagic shock due to acute blood loss anemia from variceal bleed which was banded complicated by acute hypoxic respiratory failure requiring intubation. Patient eventually extubated and downgraded to medical floor on 10/29/2024. Acute metabolic encephalopathy, acute hemorrhagic shock due to blood loss anemia from variceal bleed due to alcoholic cirrhosis, acute hypoxic respiratory failure Now extubated and downgraded to medical floor, mental status improving, close to baseline Hematemesis resolved but continues to be anemic, will transfuse additional unit today restarted octreotide and completed ceftriaxone Continue PPI and Carafate Had paracentesis 10/24/2024 not consistent with SBP, still distended with poor appetite but appears to be more interstitial than ascites - given albumin with lasix to shift fluid intravascularly continue ppn for now until intake improves Ongoing hematuria Currently nonobstructed, requiring occasional transfusion, Urology following - likely radiation and coagulatopathy provided not obstructed continue to monitor DVT prophylaxis-mechanical due to hematuria on recent variceal bleed DNR/DNI - not interested in hospice at this time reason for continued hospitalization:not eating, anemia Quality Stroke Does the patient have a stroke diagnosis?: No VTE Prior VTE?: No VTE Risk Level:: Medical - moderate - high VTE Device Contraindication: N/A - Device Ordered VTE Drug Contraindication: Treatment Not Tolerated
--- NOTE | 2024-11-01 11:12 | MHC.CLN ---
F/U BLOOD NOTED IN FECTAL TUBE PER PT IS CURRENTLY NPO TPN TO CONTINUE AT THIS TIME REVIEWED LABS DISCUSSED WITH PHARMACY CONTINUE TPN AT MAX GOAL RATE 90ML/HR WITH 57G LIPIDS PROVIDES 2104KCALS (30KCALS/KG BASED ON IBW), 324G DEXTROSE, 108G PROTEIN (1.5G/KG) FORMULA WILL PROMOTE WOUND HEALING REPLETE LYTES NEEDED RD CAN BE REACHED VIA TIGER CONNECT DURING OFF HOURS IF NEEDED
--- NOTE | 2024-11-01 11:17 | MHC.CM.PN ---
Per rounds, pt is still requiring acute care, he continues to decline DC plans of STR and Hospice care. CM to follow for DC needs.
[2024-11-01] MEDS: Phenazopyridine HCL 200 MG TABLET PO ×2 (11:34→20:42)
[2024-11-01] MEDS: 0.9 % Sodium Chloride Flush 3 ML SYRINGE IVFLUSH ×3 (11:35→20:44)
--- NOTE | 2024-11-01 14:11 | PM.GIPN ---
Subjective Subjective Date of Service: 11/01/24 Interval History: patient had ome blood in rectal tube, also hematuria no further blood noted he denies abdominal pain no nausea appetite is poor Critical Care Time (minutes): 0 Physical Exam Vital Signs: Vital Signs: Last Vital Signs Temp 97.8 F 11/01/24 12:00 Pulse 80 11/01/24 12:00 Resp 19 11/01/24 12:00 BP 118/56 L 11/01/24 12:00 Pulse Ox 93 11/01/24 12:00 O2 Del Method Room Air 11/01/24 12:00 O2 Flow Rate 2 11/01/24 08:00 FiO2 21 10/27/24 11:23 BMI result Body Mass Index 29.5 EXAM: GENERAL: The patient is frail, jaundiced VITAL SIGNS:see workflow HEENT: icteric sclerae, PERRLA, EOMI. Oropharynx clear. Moist mucous membranes. Conjunctivae appear well perfused. No thyroid mass. CHEST: Chest wall is nontender. HEART: Regular rate and rhythm without murmurs. LUNGS: Clear to auscultation bilaterally. ABDOMEN: Soft, positive bowel sounds, diffusely tender, no organomegaly.no flank tenderness--anasarca SKIN: No rash, no excessive bruising, petechiae, or purpura. NEUROLOGIC: Cranial nerves II-XII intact without motor/sensory deficit. Psych: normal affect edema ++ Objective Data Labs 11/01/24 06:29 11/01/24 06:29 Labs: Laboratory Results - last 24 hr 10/31/24 11/01/24 11/01/24 08:30 06:29 06:29 WBC 6.5 Cancelled RBC 2.10 L Hgb Hct MCV MCH MCHC RDW Plt Count MPV Immature Gran % (Auto) Neut % (Auto) Lymph % (Auto) [place] % (Auto) Eos % (Auto) Baso % (Auto) Lymph # (Auto) [place] # (Auto) Eos # (Auto) Baso # (Auto) Abs Immat Gran (auto) Absolute Neuts (auto) Absolute Nucleated RBC Nucleated RBC % (auto) Sodium Potassium Chloride Carbon Dioxide Anion Gap BUN Creatinine Estim Creat Clear Calc Estimated GFR Random Glucose Calcium Phosphorus Magnesium Albumin Blood Type A Positive Antibody Screen NEGATIVE Crossmatch See Detail 11/01/24 11/01/24 11/01/24 06:29 06:29 06:29 WBC RBC Cancelled Hgb 6.8 L* Cancelled Hct 20.2 L* Cancelled MCV 96.2 MCH MCHC RDW Plt Count MPV Immature Gran % (Auto) Neut % (Auto) Lymph % (Auto) [place] % (Auto) Eos % (Auto) Baso % (Auto) Lymph # (Auto) [place] # (Auto) Eos # (Auto) Baso # (Auto) Abs Immat Gran (auto) Absolute Neuts (auto) Absolute Nucleated RBC Nucleated RBC % (auto) Sodium Potassium Chloride Carbon Dioxide Anion Gap BUN Creatinine Estim Creat Clear Calc Estimated GFR Random Glucose Calcium Phosphorus Magnesium Albumin Blood Type Antibody Screen Crossmatch 11/01/24 11/01/24 11/01/24 06:29 06:29 06:29 WBC RBC Hgb Hct MCV Cancelled MCH 32.4 Cancelled MCHC 33.7 Cancelled RDW 17.4 H Plt Count MPV Immature Gran % (Auto) Neut % (Auto) Lymph % (Auto) [place] % (Auto) Eos % (Auto) Baso % (Auto) Lymph # (Auto) [place] # (Auto) Eos # (Auto) Baso # (Auto) Abs Immat Gran (auto) Absolute Neuts (auto) Absolute Nucleated RBC Nucleated RBC % (auto) Sodium Potassium Chloride Carbon Dioxide Anion Gap BUN Creatinine Estim Creat Clear Calc Estimated GFR Random Glucose Calcium Phosphorus Magnesium Albumin Blood Type Antibody Screen Crossmatch 11/01/24 11/01/24 11/01/24 06:29 06:29 06:29 WBC RBC Hgb Hct MCV MCH MCHC RDW Cancelled Plt Count 20 L* Cancelled MPV 11.4 Cancelled Immature Gran % (Auto) 1.1 H Neut % (Auto) 73.7 H Lymph % (Auto) 11.6 L [place] % (Auto) 9.9 Eos % (Auto) 2.9 Baso % (Auto) 0.8 Lymph # (Auto) 0.8 L [place] # (Auto) 0.6 Eos # (Auto) 0.2 Baso # (Auto) 0.1 Abs Immat Gran (auto) 0.07 H Absolute Neuts (auto) 4.8 Absolute Nucleated RBC 0.000 Nucleated RBC % (auto) Sodium Potassium Chloride Carbon Dioxide Anion Gap BUN Creatinine Estim Creat Clear Calc Estimated GFR Random Glucose Calcium Phosphorus Magnesium Albumin Blood Type Antibody Screen Crossmatch 11/01/24 11/01/24 06:29 06:29 WBC RBC Hgb Hct MCV MCH MCHC RDW Plt Count MPV Immature Gran % (Auto) Neut % (Auto) Lymph % (Auto) [place] % (Auto) Eos % (Auto) Baso % (Auto) Lymph # (Auto) [place] # (Auto) Eos # (Auto) Baso # (Auto) Abs Immat Gran (auto) Absolute Neuts (auto) Absolute Nucleated RBC Cancelled Nucleated RBC % (auto) 0.0 Cancelled Sodium 137 Potassium 4.6 Chloride 98 Carbon Dioxide 30 H Anion Gap 14 BUN 43 H Creatinine 0.72 Estim Creat Clear Calc 119.1 Estimated GFR > 60 Random Glucose 143 H Calcium 9.2 Phosphorus 3.0 Magnesium 2.0 Albumin 3.7 Blood Type Antibody Screen Crossmatch Microbiology Microbiology Results: Microbiology 10/22/24 Unknown Urine clean catch - Clean Catch Midstream Urine Culture - Final No growth. Procedures Date of Service Date of Service: 11/01/24 Progress Note: A&P Assessment and plan (1) Gross hematuria: Status: Acute Plan 1/ decompensated cirrhosis with elevated INR< v low plts and likely mucosal bleeding from irritation from rectal tube PLAN: 1/ plt transfusion > 50 2/ Vit K 10 mg IV for 3 d, can also consider FFP if needed, DDAVP might help 3/ hold on endoscopy, will excaerbate bleeding given current hematology markers Time Spent With Patient Time: Total time managing care of this patient today ____ minutes. Quality Stroke Does the patient have a stroke diagnosis?: No VTE Prior VTE?: No VTE Risk Level:: Medical - moderate - high VTE Device Contraindication: N/A - Device Ordered VTE Drug Contraindication: Treatment Not Tolerated
[2024-11-01] MEDS: Parenteral Nutrition 2,160 ML 90 ML IV (20:34)
[2024-11-01] MEDS: Tamsulosin HCL 0.4 MG CAPSULE PO (20:44)
[2024-11-02] VITALS (9 sets, daily range): BP systolic 115–134; BP diastolic 55–63; PULSE 69–87; RESP 17–20; TEMP 36.6–37.2; O2SAT 94–98; BMI 30.3
[2024-11-02] MEDS: Octreotide Acetate 500 MCG in 0.9 % Sodium Chloride 500 ML 50.1 MCG IVCONT ×3 (00:02→18:20)
[2024-11-02] MEDS: Pantoprazole Sodium 40 MG/10 ML VIAL IVPUSH ×2 (06:32→16:33)
[2024-11-02 06:59] LABS: MANUAL DIFF FLAG NO
[2024-11-02 07:00] LABS: Basophils Absolute Auto 0.1 X10*3/uL (0.0-0.2); Basophils Percent Auto 0.8 % (0-2); Eosinophils Absolute Auto 0.2 X10*3/uL (0.0-0.4); Eosinophils Percent Auto 2.7 % (0-4); Hematocrit 24.7 % (42.0-52.0); Hemoglobin 8.3 g/dl (14.0-18.0); Imm Gran Abs Auto 0.09 X10*3/uL (0.00-0.03); Imm Gran Pct Auto 1.2 % (0.0-0.4); Lymphocytes Absolute Auto 0.8 X10*3/uL (1.2-4.9); Lymphocytes Percent Auto 10.8 % (20-40); Mean Corpuscular HGB Conc 33.6 g/dl (31.0-36.0); Mean Corpuscular Hemoglobin 31.9 pg (27.0-33.0); Mean Platelet Volume 11.6 fL (9.4-12.4); Monocytes Absolute Auto 0.9 X10*3/uL (0.1-1.2); Monocytes Percent Auto 11.6 % (2-11); Neutrophils Absolute Auto 5.6 x10*3/uL (2.0-8.3); Neutrophils Percent Auto 72.9 % (45-73); Red Cell Distribution Width 17.2 % (11.0-16.0); White Blood Count 7.7 X10*3/uL (4.8-10.8)
[2024-11-02 07:06] LABS: Platelet Count 33 X10*3/uL (160-400)
[2024-11-02 07:15] LABS: Albumin Level 3.4 g/dL (3.5-5.0); Anion Gap 12 (12-20); Blood Urea Nitrogen 37 mg/dL (9-16); Calcium 8.8 mg/dL (8.4-10.2); Carbon Dioxide 31 mmol/L (22-29); Chloride 100 mmol/L (96-108); Creatinine Clr Calc Pharmacy 125.8; Estimated Glomerular Filt Rate > 60; Glucose Random 141 mg/dL (60-115); Phosphorus 2.7 mg/dL (2.7-4.5); Potassium 4.4 mmol/L (3.3-5.1); Sodium 139 mmol/L (135-145)
[2024-11-02] MEDS: Phytonadione (Vit K1) 10 MG in 0.9 % Sodium Chloride 50 ML 51 MG IV (08:57)
[2024-11-02] MEDS: Lactulose 20 GM/30 ML SOLUTION PO (09:09)
[2024-11-02] MEDS: 0.9 % Sodium Chloride Flush 3 ML SYRINGE IVFLUSH ×3 (09:09→23:09)
[2024-11-02] MEDS: Sucralfate 1 GM TABLET PO ×4 (09:09→23:09)
[2024-11-02] MEDS: Midodrine HCl 5 MG TABLET PO ×3 (09:09→23:08)
[2024-11-02] MEDS: Furosemide 40 MG/4 ML VIAL IVPUSH ×2 (09:09→16:33)
[2024-11-02] MEDS: Phenazopyridine HCL 200 MG TABLET PO ×2 (09:09→23:10)
--- NOTE | 2024-11-02 10:34 | P.PNIM_ITS ---
Subjective Subjective Date of Service: 11/02/24 Interval History: rectal pain Physical Exam 2 Vital Signs: Vital Signs: Last Vital Signs Temp 98.4 F 11/02/24 08:00 Pulse 76 11/02/24 08:00 Resp 20 11/02/24 08:00 BP 122/57 L 11/02/24 08:00 Pulse Ox 96 11/02/24 08:00 O2 Del Method Nasal Cannula 11/02/24 08:00 O2 Flow Rate 3 11/02/24 08:00 FiO2 21 10/27/24 11:23 BMI result Body Mass Index 30.3 General: Lethargic, oriented x3, ill-appearing, jaundiced Resp: Diminished bilateral, no accessory muscles used CVS: S1,S2,RRR GI: soft, distended, nontender Neuro: motor grossly weak Objective Data Active Medications Furosemide (Furosemide 40 Mg/4 Ml Vial) 40 mg IVPUSH BID@0900,1800 [facility]; Protocol Last Admin: 11/02/24 09:09 Dose: 40 mg Documented By: MARTHA Octreotide Acetate 500 mcg/ (Sodium Chloride) 501 mls @ 50.1 mls/hr IVCONT .Q10H [facility] Last Admin: 11/02/24 09:08 Dose: 50 mcg/hr, 50.1 mls/hr Documented By: MARTHA Nutrition (Parenteral) (Parenteral Nutrition) 2,160 mls @ 90 mls/hr IV .Q24H [facility]; Protocol Stop: 11/02/24 20:59 Last Admin: 11/01/24 20:34 Dose: 90 mls/hr Documented By: SAHRA Nutrition (Parenteral) (Parenteral Nutrition) 2,160 mls @ 90 mls/hr IV .Q24H [facility]; Protocol Stop: 11/03/24 20:59 Lactulose (Lactulose 20 Gm/30 Ml Solution) 20 gm PO DAILY [facility] Last Admin: 11/02/24 09:09 Dose: 20 gm Documented By: MARTHA Melatonin (Melatonin 3 Mg Tablet) 6 mg PO BEDTIME PRN PRN Reason: Insomnia Last Admin: 11/01/24 20:43 Dose: 6 mg Documented By: SAHRA Midodrine (Midodrine Hcl 5 Mg Tablet) 5 mg PO TID [facility] Last Admin: 11/02/24 09:09 Dose: 5 mg Documented By: MARTHA Ondansetron HCl (Ondansetron Hcl 4 Mg/2 Ml Vial) 4 mg IVPUSH Q4H PRN PRN Reason: Nausea and Vomiting Last Admin: 11/01/24 13:11 Dose: 4 mg Documented By: DANICA Pantoprazole Sodium (Pantoprazole Sodium 40 Mg/10 Ml Vial) 40 mg IVPUSH BID@0630,1630 [facility] Last Admin: 11/02/24 06:32 Dose: 40 mg Documented By: SAHRA Pharmacy Consult (Consult Rx Parenteral Nutrition Ordering) 1 each MISCELLANE DAILY PRN PRN Reason: Consult order Phenazopyridine HCl (Phenazopyridine Hcl 200 Mg Tablet) 200 mg PO TID PRN PRN Reason: Perineal Discomfort Last Admin: 11/02/24 09:09 Dose: 200 mg Documented By: MARTHA Sodium Chloride (0.9 % Sodium Chloride Flush 3 Ml Syringe) 3 ml IVFLUSH QSHIFT [facility] Last Admin: 11/02/24 09:09 Dose: 3 ml Documented By: MARTHA Sucralfate (Sucralfate 1 Gm Tablet) 1 gm PO QIDACHS [facility] Last Admin: 11/02/24 09:09 Dose: 1 gm Documented By: MARTHA Tamsulosin HCl (Tamsulosin Hcl 0.4 Mg Capsule) 0.4 mg PO BEDTIME [facility] Last Admin: 11/01/24 20:44 Dose: 0.4 mg Documented By: SAHRA Labs 11/02/24 06:47 11/02/24 06:47 Labs: Laboratory Results - last 24 hr 10/31/24 11/02/24 11/02/24 08:30 06:47 06:47 MCV 95.0 Cancelled MCH 31.9 MCHC RDW Plt Count MPV Immature Gran % (Auto) Neut % (Auto) Lymph % (Auto) [place] % (Auto) Eos % (Auto) Baso % (Auto) Lymph # (Auto) [place] # (Auto) Eos # (Auto) Baso # (Auto) Abs Immat Gran (auto) Absolute Neuts (auto) Absolute Nucleated RBC Nucleated RBC % (auto) Anion Gap Estim Creat Clear Calc Estimated GFR Random Glucose Calcium Phosphorus Magnesium Albumin Crossmatch See Detail 11/02/24 11/02/24 11/02/24 06:47 06:47 06:47 MCV MCH Cancelled MCHC 33.6 Cancelled RDW 17.2 H Cancelled Plt Count 33 L D MPV Immature Gran % (Auto) Neut % (Auto) Lymph % (Auto) [place] % (Auto) Eos % (Auto) Baso % (Auto) Lymph # (Auto) [place] # (Auto) Eos # (Auto) Baso # (Auto) Abs Immat Gran (auto) Absolute Neuts (auto) Absolute Nucleated RBC Nucleated RBC % (auto) Anion Gap Estim Creat Clear Calc Estimated GFR Random Glucose Calcium Phosphorus Magnesium Albumin Crossmatch 11/02/24 11/02/24 11/02/24 06:47 06:47 06:47 MCV MCH MCHC RDW Plt Count Cancelled MPV 11.6 Cancelled Immature Gran % (Auto) 1.2 H Neut % (Auto) 72.9 Lymph % (Auto) 10.8 L [place] % (Auto) 11.6 H Eos % (Auto) 2.7 Baso % (Auto) 0.8 Lymph # (Auto) 0.8 L [place] # (Auto) 0.9 Eos # (Auto) 0.2 Baso # (Auto) 0.1 Abs Immat Gran (auto) 0.09 H Absolute Neuts (auto) 5.6 Absolute Nucleated RBC 0.000 Cancelled Nucleated RBC % (auto) 0.0 Anion Gap Estim Creat Clear Calc Estimated GFR Random Glucose Calcium Phosphorus Magnesium Albumin Crossmatch 11/02/24 06:47 MCV MCH MCHC RDW Plt Count MPV Immature Gran % (Auto) Neut % (Auto) Lymph % (Auto) [place] % (Auto) Eos % (Auto) Baso % (Auto) Lymph # (Auto) [place] # (Auto) Eos # (Auto) Baso # (Auto) Abs Immat Gran (auto) Absolute Neuts (auto) Absolute Nucleated RBC Nucleated RBC % (auto) Cancelled Anion Gap 12 Estim Creat Clear Calc 125.8 Estimated GFR > 60 Random Glucose 141 H Calcium 8.8 Phosphorus 2.7 Magnesium 2.0 Albumin 3.4 L Crossmatch Assessment and Plan (1) Esophageal varices: Status: Acute Plan 59M PMH decompensated alcohol cirrhosis with history of variceal bleed, ascites, encephalopathy, prostate CA with urethral obstruction, presented initially with hematuria and then developed hematemesis in the ED was admitted to the ICU for hemorrhagic shock due to acute blood loss anemia from variceal bleed which was banded complicated by acute hypoxic respiratory failure requiring intubation. Patient eventually extubated and downgraded to medical floor on 10/29/2024. Acute metabolic encephalopathy, acute hemorrhagic shock due to blood loss anemia from variceal bleed due to alcoholic cirrhosis, acute hypoxic respiratory failure Now extubated and downgraded to medical floor, mental status improving, close to baseline Hematemesis resolved but continues to be anemic, hgb stable today restarted octreotide and completed ceftriaxone Continue PPI and Carafate Had paracentesis 10/24/2024 not consistent with SBP, still distended with poor appetite but appears to be more interstitial than ascites - given albumin with lasix to shift fluid intravascularly continue ppn for now until intake improves giving vit k, platelets Ongoing hematuria Currently nonobstructed, requiring occasional transfusion, Urology following - likely radiation and coagulatopathy provided not obstructed continue to monitor DVT prophylaxis-mechanical due to hematuria on recent variceal bleed DNR/DNI - not interested in hospice at this time reason for continued hospitalization:not eating, anemia Quality Stroke Does the patient have a stroke diagnosis?: No VTE Prior VTE?: No VTE Risk Level:: Medical - moderate - high VTE Device Contraindication: N/A - Device Ordered VTE Drug Contraindication: Treatment Not Tolerated
[2024-11-02] MEDS: HYDROmorphone HCl 2 MG TABLET 1 MG PO (11:39)
[2024-11-02] MEDS: ondansetron HCL 4 MG/2 ML VIAL IVPUSH (11:44)
[2024-11-02] MEDS: Nicotine 7 MG PATCH.TD24 TRANSDERMA (18:19)
[2024-11-02] MEDS: Parenteral Nutrition 2,160 ML 90 ML IV (23:08)
[2024-11-02] MEDS: Tamsulosin HCL 0.4 MG CAPSULE PO (23:08)
[2024-11-02] MEDS: Melatonin 3 MG TABLET 6 MG PO (23:11)
[2024-11-03] VITALS (8 sets, daily range): BP systolic 116–132; BP diastolic 56–65; PULSE 72–130; RESP 16–20; TEMP 36.4–37.4; O2SAT 92–96; BMI 28.6
[2024-11-03] MEDS: HYDROmorphone HCl 2 MG TABLET 1 MG PO ×3 (01:27→21:15)
[2024-11-03] MEDS: Octreotide Acetate 500 MCG in 0.9 % Sodium Chloride 500 ML 50.1 MCG IVCONT ×3 (04:15→23:35)
[2024-11-03] MEDS: Sucralfate 1 GM TABLET PO ×4 (06:16→21:15)
[2024-11-03] MEDS: Pantoprazole Sodium 40 MG/10 ML VIAL IVPUSH ×2 (06:16→16:09)
[2024-11-03 07:33] LABS: MANUAL DIFF FLAG NO
[2024-11-03 07:35] LABS: Imm Gran Abs Auto 0.07 X10*3/uL (0.00-0.03); PLT CLUMP 1; Red Blood Count 2.33 X10*6/uL (4.60-5.80); SCAN SMEAR FLAG 1
[2024-11-03 07:37] LABS: Basophils Absolute Auto 0.1 X10*3/uL (0.0-0.2); Eosinophils Absolute Auto 0.3 X10*3/uL (0.0-0.4); Eosinophils Percent Auto 4.1 % (0-4); Hematocrit 22.4 % (42.0-52.0); Hemoglobin 7.5 g/dl (14.0-18.0); Imm Gran Pct Auto 0.9 % (0.0-0.4); Mean Corpuscular HGB Conc 33.5 g/dl (31.0-36.0); Mean Corpuscular Hemoglobin 32.2 pg (27.0-33.0); Mean Corpuscular Volume 96.1 fL (80.0-98.0); Mean Platelet Volume 10.9 fL (9.4-12.4); Monocytes Absolute Auto 0.9 X10*3/uL (0.1-1.2); Monocytes Percent Auto 10.6 % (2-11); Neutrophils Absolute Auto 5.9 x10*3/uL (2.0-8.3); Neutrophils Percent Auto 71.4 % (45-73); Red Cell Distribution Width 16.9 % (11.0-16.0)
[2024-11-03 07:54] LABS: Platelet Count 53 X10*3/uL (160-400); White Blood Count 8.2 X10*3/uL (4.8-10.8)
[2024-11-03 08:21] LABS: Albumin Level 3.3 g/dL (3.5-5.0)
[2024-11-03 08:34] LABS: Triglycerides 58 mg/dL (<150)
[2024-11-03 08:46] LABS: Anion Gap 13 (12-20); Blood Urea Nitrogen 33 mg/dL (9-16); Calcium 8.7 mg/dL (8.4-10.2); Carbon Dioxide 30 mmol/L (22-29); Chloride 100 mmol/L (96-108); Creatinine Clr Calc Pharmacy 124.3; Estimated Glomerular Filt Rate > 60; Glucose Random 123 mg/dL (60-115); Potassium 4.2 mmol/L (3.3-5.1); Sodium 139 mmol/L (135-145)
--- NOTE | 2024-11-03 10:00 | HO.PM.IMPN ---
Subjective Subjective Date of Service: 11/03/24 Interval History: Slowly improving, still minimal appetite Physical Exam Vital Signs: Vital Signs: Last Vital Signs Temp 98.7 F 11/03/24 07:24 Pulse 87 11/03/24 07:24 Resp 18 11/03/24 07:24 BP 121/60 11/03/24 07:24 Pulse Ox 95 11/03/24 07:24 O2 Del Method Nasal Cannula 11/03/24 07:24 O2 Flow Rate 3 11/03/24 07:24 FiO2 21 10/27/24 11:23 BMI result Body Mass Index 28.6 General: Lethargic, oriented x3, ill-appearing, jaundiced Resp: Diminished bilateral, no accessory muscles used CVS: S1,S2,RRR GI: soft, distended, nontender Neuro: motor grossly weak Objective Data Active Medications Furosemide (Furosemide 40 Mg/4 Ml Vial) 40 mg IVPUSH BID@0900,1800 [facility]; Protocol Last Admin: 11/02/24 16:33 Dose: 40 mg Documented By: MARTHA Hydromorphone HCl (Hydromorphone Hcl 2 Mg Tablet) 1 mg PO Q6H PRN PRN Reason: Pain, Severe (Pain Scale 7-10) Last Admin: 11/03/24 01:27 Dose: 1 mg Documented By: AYAH Octreotide Acetate 500 mcg/ (Sodium Chloride) 501 mls @ 50.1 mls/hr IVCONT .Q10H [facility] Last Admin: 11/03/24 04:15 Dose: 50 mcg/hr, 50.1 mls/hr Documented By: AYAH Nutrition (Parenteral) (Parenteral Nutrition) 2,160 mls @ 90 mls/hr IV .Q24H [facility]; Protocol Stop: 11/03/24 20:59 Last Infusion: 11/02/24 23:10 Dose: 90 mls/hr Documented By: AYAH Lactulose (Lactulose 20 Gm/30 Ml Solution) 20 gm PO DAILY [facility] Last Admin: 11/02/24 09:09 Dose: 20 gm Documented By: MARTHA Melatonin (Melatonin 3 Mg Tablet) 6 mg PO BEDTIME PRN PRN Reason: Insomnia Last Admin: 11/02/24 23:11 Dose: 6 mg Documented By: AYAH Comments: requested for sleep Midodrine (Midodrine Hcl 5 Mg Tablet) 5 mg PO TID [facility] Last Admin: 11/02/24 23:08 Dose: 5 mg Documented By: AYAH Nicotine (Nicotine 7 Mg Patch.Td24) 7 mg TRANSDERMA DAILY [facility] Last Admin: 11/02/24 18:19 Dose: 7 mg Documented By: MARTHA Ondansetron HCl (Ondansetron Hcl 4 Mg/2 Ml Vial) 4 mg IVPUSH Q4H PRN PRN Reason: Nausea and Vomiting Last Admin: 11/02/24 11:44 Dose: 4 mg Documented By: MARTHA Pantoprazole Sodium (Pantoprazole Sodium 40 Mg/10 Ml Vial) 40 mg IVPUSH BID@0630,1630 [facility] Last Admin: 11/03/24 06:16 Dose: 40 mg Documented By: AYAH Pharmacy Consult (Consult Rx Parenteral Nutrition Ordering) 1 each MISCELLANE DAILY PRN PRN Reason: Consult order Phenazopyridine HCl (Phenazopyridine Hcl 200 Mg Tablet) 200 mg PO TID PRN PRN Reason: Perineal Discomfort Last Admin: 11/02/24 23:10 Dose: 200 mg Documented By: AYAH Sodium Chloride (0.9 % Sodium Chloride Flush 3 Ml Syringe) 3 ml IVFLUSH QSHIFT [facility] Last Admin: 11/02/24 23:09 Dose: 3 ml Documented By: AYAH Sucralfate (Sucralfate 1 Gm Tablet) 1 gm PO QIDACHS [facility] Last Admin: 11/03/24 06:16 Dose: 1 gm Documented By: AYAH Tamsulosin HCl (Tamsulosin Hcl 0.4 Mg Capsule) 0.4 mg PO BEDTIME [facility] Last Admin: 11/02/24 23:08 Dose: 0.4 mg Documented By: AYAH Labs 11/03/24 07:18 11/03/24 07:18 Labs: Laboratory Results - last 24 hr 10/31/24 11/03/24 08:30 07:18 MCV 96.1 MCH 32.2 MCHC 33.5 RDW 16.9 H Plt Count 53 L D MPV 10.9 Immature Gran % (Auto) 0.9 H Neut % (Auto) 71.4 Lymph % (Auto) 12.0 L [place] % (Auto) 10.6 Eos % (Auto) 4.1 H Baso % (Auto) 1.0 Lymph # (Auto) 1.0 L [place] # (Auto) 0.9 Eos # (Auto) 0.3 Baso # (Auto) 0.1 Abs Immat Gran (auto) 0.07 H Absolute Neuts (auto) 5.9 Absolute Nucleated RBC 0.000 Nucleated RBC % (auto) 0.0 Anion Gap 13 Estim Creat Clear Calc 124.3 Estimated GFR > 60 Random Glucose 123 H Calcium 8.7 Phosphorus 3.0 Magnesium 2.0 Albumin 3.3 L Triglycerides 58 Blood Type A Positive Antibody Screen NEGATIVE Crossmatch See Detail Assessment and Plan (1) Esophageal varices: Status: Acute Plan 59M PMH decompensated alcohol cirrhosis with history of variceal bleed, ascites, encephalopathy, prostate CA with urethral obstruction, presented initially with hematuria and then developed hematemesis in the ED was admitted to the ICU for hemorrhagic shock due to acute blood loss anemia from variceal bleed which was banded complicated by acute hypoxic respiratory failure requiring intubation. Patient eventually extubated and downgraded to medical floor on 10/29/2024. Acute metabolic encephalopathy, acute hemorrhagic shock due to blood loss anemia from variceal bleed due to alcoholic cirrhosis, acute hypoxic respiratory failure Now extubated and downgraded to medical floor, mental status improving, close to baseline Hematemesis resolved but continues to be anemic, monitor hemoglobin restarted octreotide and completed ceftriaxone Continue PPI and Carafate Had paracentesis 10/24/2024 not consistent with SBP, still distended with poor appetite but appears to be more interstitial than ascites - given albumin with lasix to shift fluid intravascularly continue ppn for now until intake improves giving vit k, platelets Ongoing hematuria Currently nonobstructed, requiring occasional transfusion, Urology following - likely radiation and coagulatopathy provided not obstructed continue to monitor DVT prophylaxis-mechanical due to hematuria on recent variceal bleed DNR/DNI - not interested in hospice at this time reason for continued hospitalization:not eating, anemia Quality Stroke Does the patient have a stroke diagnosis?: No VTE Prior VTE?: No VTE Risk Level:: Medical - moderate - high VTE Device Contraindication: N/A - Device Ordered VTE Drug Contraindication: Treatment Not Tolerated
[2024-11-03] MEDS: Phenazopyridine HCL 200 MG TABLET PO ×2 (10:21→21:14)
[2024-11-03] MEDS: Lactulose 20 GM/30 ML SOLUTION PO (10:22)
[2024-11-03] MEDS: Furosemide 40 MG/4 ML VIAL IVPUSH ×2 (10:22→16:09)
[2024-11-03] MEDS: Midodrine HCl 5 MG TABLET PO ×3 (10:22→21:15)
[2024-11-03] MEDS: 0.9 % Sodium Chloride Flush 3 ML SYRINGE IVFLUSH ×3 (10:22→21:16)
[2024-11-03] MEDS: Nicotine 7 MG PATCH.TD24 TRANSDERMA (10:22)
[2024-11-03] MEDS: Albumin Human 25 % 100 ML IV ×2 (10:23→11:57)
[2024-11-03] MEDS: ondansetron HCL 4 MG/2 ML VIAL IVPUSH ×2 (10:24→21:34)
[2024-11-03] MEDS: LORazepam 0.5 MG TABLET PO ×2 (15:05→23:40)
[2024-11-03] MEDS: Melatonin 3 MG TABLET 6 MG PO (21:15)
[2024-11-03] MEDS: Tamsulosin HCL 0.4 MG CAPSULE PO (21:15)
[2024-11-03] MEDS: Parenteral Nutrition 2,160 ML 90 ML IV (21:16)
[2024-11-04 03:08] VITALS: BP 117/57; PULSE 76; RESP 18; TEMP 37; O2SAT 96
[2024-11-04] MEDS: ondansetron HCL 4 MG/2 ML VIAL IVPUSH (03:57)
[2024-11-04] MEDS: HYDROmorphone HCl 2 MG TABLET 1 MG PO (03:58)
[2024-11-04] MEDS: Phenazopyridine HCL 200 MG TABLET PO (06:11)
[2024-11-04] MEDS: Sucralfate 1 GM TABLET PO ×2 (06:11→09:52)
[2024-11-04 07:12] LABS: MANUAL DIFF FLAG NO
[2024-11-04 07:29] LABS: Basophils Absolute Auto 0.1 X10*3/uL (0.0-0.2); Basophils Percent Auto 0.8 % (0-2); Eosinophils Absolute Auto 0.4 X10*3/uL (0.0-0.4); Hematocrit 22.1 % (42.0-52.0); Hemoglobin 7.3 g/dl (14.0-18.0); Imm Gran Abs Auto 0.05 X10*3/uL (0.00-0.03); Imm Gran Pct Auto 0.7 % (0.0-0.4); Lymphocytes Absolute Auto 1.1 X10*3/uL (1.2-4.9); Mean Corpuscular Hemoglobin 32.7 pg (27.0-33.0); Mean Corpuscular Volume 99.1 fL (80.0-98.0); Mean Platelet Volume 11.8 fL (9.4-12.4); Monocytes Absolute Auto 0.8 X10*3/uL (0.1-1.2); Monocytes Percent Auto 10.8 % (2-11); Neutrophils Absolute Auto 5.1 x10*3/uL (2.0-8.3); Neutrophils Percent Auto 67.7 % (45-73); Red Blood Count 2.23 X10*6/uL (4.60-5.80); Red Cell Distribution Width 16.8 % (11.0-16.0); White Blood Count 7.5 X10*3/uL (4.8-10.8)
[2024-11-04 07:33] LABS: Platelet Count 66 X10*3/uL (160-400)
[2024-11-04 07:41] VITALS: BP 114/54; PULSE 74; RESP 20; TEMP 36.8; O2SAT 94
[2024-11-04 07:46] LABS: Alanine Aminotransferase 58 U/L (0-40); Albumin Level 3.6 g/dL (3.5-5.0); Alkaline Phosphatase 113 U/L (39-117); Anion Gap 9 (12-20); Aspartate Amino Transferase 89 U/L (5-37); Bilirubin Direct 5.3 mg/dL (0.0-0.5); Bilirubin Total 10.2 mg/dL (0.0-1.0); Blood Urea Nitrogen 31 mg/dL (9-16); Calcium 8.2 mg/dL (8.4-10.2); Carbon Dioxide 33 mmol/L (22-29); Chloride 100 mmol/L (96-108); Creatinine Clr Calc Pharmacy 120.7; Estimated Glomerular Filt Rate > 60; Glucose Random 126 mg/dL (60-115); Phosphorus 3.3 mg/dL (2.7-4.5); Potassium 4.3 mmol/L (3.3-5.1); Sodium 138 mmol/L (135-145); Total Protein 6.7 g/dL (6.5-8.0)
[2024-11-04 09:52] VITALS: BP 114/54
[2024-11-04] MEDS: Octreotide Acetate 500 MCG in 0.9 % Sodium Chloride 500 ML 50.1 MCG IVCONT (09:52)
[2024-11-04] MEDS: Midodrine HCl 5 MG TABLET PO (09:52)
[2024-11-04] MEDS: Lactulose 20 GM/30 ML SOLUTION PO (09:52)
[2024-11-04 09:53] VITALS: BP 114/54
[2024-11-04] MEDS: 0.9 % Sodium Chloride Flush 3 ML SYRINGE IVFLUSH (09:53)
[2024-11-04] MEDS: Furosemide 40 MG/4 ML VIAL IVPUSH (09:53)
--- NOTE | 2024-11-04 10:05 | MHC.CLN ---
F/U DIET RESUMED TO REGULAR PO INTAKE 25% X 2 MEALS TPN TO CONTINUE AT THIS TIME REVIEWED LABS DISCUSSED WITH PHARMACY CONTINUE TPN AT MAX GOAL RATE 90ML/HR WITH 57G LIPIDS PROVIDES 2104KCALS (30KCALS/KG BASED ON IBW), 324G DEXTROSE, 108G PROTEIN (1.5G/KG) FORMULA WILL PROMOTE WOUND HEALING REPLETE LYTES NEEDED
[2024-11-04 11:17] VITALS: BP 117/58; PULSE 77; RESP 18; TEMP 37; O2SAT 92
--- NOTE | 2024-11-04 11:29 | HO.PM.IMPN ---
Subjective Subjective Date of Service: 11/04/24 Interval History: feeling, better, eating well Physical Exam Vital Signs: Vital Signs: Last Vital Signs Temp 98.6 F 11/04/24 11:17 Pulse 77 11/04/24 11:17 Resp 18 11/04/24 11:17 BP 117/58 L 11/04/24 11:17 Pulse Ox 92 11/04/24 11:17 O2 Del Method Room Air 11/04/24 11:17 O2 Flow Rate 3 11/04/24 07:41 FiO2 21 10/27/24 11:23 BMI result Body Mass Index 28.6 overall ill appearing and jaundiced, but more energetic today, less anasarca Objective Data Active Medications Furosemide (Furosemide 40 Mg/4 Ml Vial) 40 mg IVPUSH BID@0900,1800 [facility]; Protocol Last Admin: 11/04/24 09:53 Dose: 40 mg Documented By: PAUL Hydromorphone HCl (Hydromorphone Hcl 2 Mg Tablet) 1 mg PO Q6H PRN PRN Reason: Pain, Severe (Pain Scale 7-10) Last Admin: 11/04/24 03:58 Dose: 1 mg Documented By: RADHA Octreotide Acetate 500 mcg/ (Sodium Chloride) 501 mls @ 50.1 mls/hr IVCONT .Q10H [facility] Last Admin: 11/04/24 11:22 Dose: Not Given Documented By: PAUL Non-Admin Reason: previously hung Nutrition (Parenteral) (Parenteral Nutrition) 2,160 mls @ 90 mls/hr IV .Q24H [facility]; Protocol Stop: 11/04/24 20:59 Last Admin: 11/03/24 21:16 Dose: 90 mls/hr Documented By: AYAH Nutrition (Parenteral) (Parenteral Nutrition) 2,160 mls @ 90 mls/hr IV .Q24H [facility]; Protocol Stop: 11/05/24 20:59 Lactulose (Lactulose 20 Gm/30 Ml Solution) 20 gm PO DAILY [facility] Last Admin: 11/04/24 09:52 Dose: 20 gm Documented By: PAUL Melatonin (Melatonin 3 Mg Tablet) 6 mg PO BEDTIME PRN PRN Reason: Insomnia Last Admin: 11/03/24 21:15 Dose: 6 mg Documented By: AYAH Comments: requested for sleep Midodrine (Midodrine Hcl 5 Mg Tablet) 5 mg PO TID [facility] Last Admin: 11/04/24 09:52 Dose: 5 mg Documented By: PAUL Nicotine (Nicotine 7 Mg Patch.Td24) 7 mg TRANSDERMA DAILY [facility] Last Admin: 11/04/24 09:56 Dose: Not Given Documented By: PAUL Non-Admin Reason: Patient Refused Ondansetron HCl (Ondansetron Hcl 4 Mg/2 Ml Vial) 4 mg IVPUSH Q4H PRN PRN Reason: Nausea and Vomiting Last Admin: 11/04/24 03:57 Dose: 4 mg Documented By: RADHA Pharmacy Consult (Consult Rx Parenteral Nutrition Ordering) 1 each MISCELLANE DAILY PRN PRN Reason: Consult order Phenazopyridine HCl (Phenazopyridine Hcl 200 Mg Tablet) 200 mg PO TID PRN PRN Reason: Perineal Discomfort Last Admin: 11/04/24 06:11 Dose: 200 mg Documented By: AYAH Sodium Chloride (0.9 % Sodium Chloride Flush 3 Ml Syringe) 3 ml IVFLUSH QSHIFT [facility] Last Admin: 11/04/24 09:53 Dose: 3 ml Documented By: PAUL Sucralfate (Sucralfate 1 Gm Tablet) 1 gm PO QIDACHS [facility] Last Admin: 11/04/24 09:52 Dose: 1 gm Documented By: PAUL Tamsulosin HCl (Tamsulosin Hcl 0.4 Mg Capsule) 0.4 mg PO BEDTIME [facility] Last Admin: 11/03/24 21:15 Dose: 0.4 mg Documented By: AYAH Labs 11/04/24 06:35 11/04/24 06:35 Labs: Laboratory Results - last 24 hr 11/04/24 06:35 MCV 99.1 H MCH 32.7 MCHC 33.0 RDW 16.8 H Plt Count 66 L MPV 11.8 Immature Gran % (Auto) 0.7 H Neut % (Auto) 67.7 Lymph % (Auto) 15.0 L [place] % (Auto) 10.8 Eos % (Auto) 5.0 H Baso % (Auto) 0.8 Lymph # (Auto) 1.1 L [place] # (Auto) 0.8 Eos # (Auto) 0.4 Baso # (Auto) 0.1 Abs Immat Gran (auto) 0.05 H Absolute Neuts (auto) 5.1 Absolute Nucleated RBC 0.000 Nucleated RBC % (auto) 0.0 Anion Gap 9 L Estim Creat Clear Calc 120.7 Estimated GFR > 60 Random Glucose 126 H Calcium 8.2 L Phosphorus 3.3 Magnesium 2.0 Total Bilirubin 10.2 H Direct Bilirubin 5.3 H AST 89 H ALT 58 H Alkaline Phosphatase 113 Total Protein 6.7 Albumin 3.6 Assessment and Plan (1) Esophageal varices: Status: Acute Plan 59M PMH decompensated alcohol cirrhosis with history of variceal bleed, ascites, encephalopathy, prostate CA with urethral obstruction, presented initially with hematuria and then developed hematemesis in the ED was admitted to the ICU for hemorrhagic shock due to acute blood loss anemia from variceal bleed which was banded complicated by acute hypoxic respiratory failure requiring intubation. Patient eventually extubated and downgraded to medical floor on 10/29/2024. Acute metabolic encephalopathy, acute hemorrhagic shock due to blood loss anemia from variceal bleed due to alcoholic cirrhosis, acute hypoxic respiratory failure Now extubated and downgraded to medical floor, mental status improving, close to baseline Hematemesis resolved but continues to be anemic, monitor hemoglobinhgb not stable completed ceftriaxone Continue PPI and Carafate Had paracentesis 10/24/2024 not consistent with SBP, still distended with poor appetite but appears to be more interstitial than ascites - given albumin with lasix to shift fluid intravascularly po intake improved, will stop tpn given vit k, platelets Ongoing hematuria Currently nonobstructed, requiring occasional transfusion, Urology following - likely radiation and coagulatopathy provided not obstructed continue to monitor DVT prophylaxis-mechanical due to hematuria on recent variceal bleed DNR/DNI - not interested in hospice at this time reason for continued hospitalization: safe dispo Quality Stroke Does the patient have a stroke diagnosis?: No VTE Prior VTE?: No VTE Risk Level:: Medical - moderate - high VTE Device Contraindication: N/A - Device Ordered VTE Drug Contraindication: Treatment Not Tolerated
--- NOTE | 2024-11-04 11:53 | P.DS_ITS ---
DS: Providers Provider Date of Service: 11/04/24 Date of admission: 10/21/24 02:34 Date of discharge: 11/04/24 Primary care physician: Fransisco Soria MD Consults: 10/21/24 07:00 Consult to Gastroenterology Routine Consulting Provider: Marianela Person Reason for consultation: UGIB hx vareceal bleeding Has provider been notified: No Consult to Urology Routine Consulting Provider: [facility] Reason for consultation: gross hematuria, hx prostate cancer Has provider been notified: No 10/27/24 22:14 Consult to Wound Care Routine Reason for consultation: ? Pressure injury to coccyx vs MASD Has provider been notified: Yes 11/01/24 03:03 Consult to Gastroenterology Routine Consulting Provider: Yoana Gibson Reason for consultation: GI bleed DS: Diagnosis Discharge Diagnosis (1) Esophageal varices: Status: Acute DS: Summary Hospital Course Hospital Course: from initial hpi: 59-year-old male, well known to our service, has a history of prostate cancer with urethral obstruction, liver cirrhosis with ascites due to alcoholism, esophageal varices with previous upper GI bleeds with recent EGD and variceal hemoclip and ligation post packed red blood cell transfusion last discharged on 08/25/2024, portal hypertension, hypokalemia, chronic Barber catheter with recent cystoscopy for bladder neck dilation and clot evaluation as well as Barber placement, previous UTIs with resistant Enterococcus faecium, previous gross hematuria episodes, thrombocytopenia and coagulopathy due to liver disease, hyponatremia, ascites, CHF, PTSD, anxiety, hypertension, hyperlipidemia, depression. Patient presented to the emergency room from home via EMS with complaints of having hematuria and significant clots coming out of his penis, he states that he did not even feel like urinating, he simply started bleeding.? He has not had a Barber catheter in several weeks.; denies any abdominal pain, he just started developing the nausea and vomiting while in the ER.? Denies any fever or chills.? He has not had a paracentesis several months ?on arrival the patient was hemodynamically stable with borderline blood pressure of 103/47, the workup in the ER significant for white count 96451, H and H of 6.8 and 20.7 respectively, platelets of 86, potassium 2.5, creatinine of 1.32, INR 2.0, heme- positive stools. ?Slowly the patient started to become hypotensive, they order p acked red blood cells, potassium replacement.? In addition, while in the emergency room the patient had small bouts of hematemesis; given his significant past medical history of variceal bleeding in his slowly trending down blood pressure the patient will be admitted to the ICU for further stabilization and treatment. hospital course: Patient was admitted for acute metabolic encephalopathy and acute hemorrhagic shock due to blood loss anemia from variceal bleed due to alcoholic cirrhosis complicated by acute hypoxic respiratory failure requiring intubation. On initial presentation at hematuria but then developed hematemesis in the ED and was admitted to the ICU underwent EGD and had banding of variceal bleed. Patient was evaluated initially extubated and downgraded to medical floor. Re quired several packed RBCs, treated with octreotide, ppi, Carafate, ceftriaxone. Eventually hemoglobin stabilized. Course complicated by ascites, had paracentesis which was not consistent with SBP. Due to poor appetite required several days of TPN. But after shifting of fluids with albumin and Lasix patient's diet improved and TPN has been discontinued. 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 Overall patient's prognosis remains very poor, but is currently fairly stable and in order to maximize remaining days at home we will discharge patient home. He appears quite comfortable likely from respiratory standpoint, but is still requiring 2 L oxygen therefore suspect this is an element of chronic hypoxic respiratory failure will be discharged home with oxygen. We will continue with lactulose for encephalopathy, midodrine to improve blood pressure, PPI and Carafate, Lasix. Time Attestation Discharge Coordination Time (in mins): 37 Quality: Safe Use of Opioids Does Pt have an Active Cancer Diagnosis on the Problem List?: No Quality: Stroke Does the patient have a stroke diagnosis?: No Physical Exam Vital Signs: Vital Signs: Last Vital Signs Temp 98.6 F 11/04/24 11:17 Pulse 77 11/04/24 11:17 Resp 18 11/04/24 11:17 BP 117/58 L 11/04/24 11:17 Pulse Ox 92 11/04/24 11:17 O2 Del Method Room Air 11/04/24 11:17 O2 Flow Rate 3 11/04/24 07:41 FiO2 21 10/27/24 11:23 BMI result Body Mass Index 28.6 overall ill appearing and jaundiced, but more energetic today, less anasarca DS: Data Data Completed and Pending Completed studies during hospitalization [Text1]: Procedures Control Bleeding in Gastrointestinal Tract, Via Natural or Artificial Opening Endoscopic (03/20/24) Detoxification Services for Substance Abuse Treatment (03/20/24) Dilation of Bladder Neck with Intraluminal Device, Via Natural or Artificial Opening Endoscopic (08/12/24) Drainage of Bladder with Drainage Device, Via Natural or Artificial Opening Endoscopic (02/23/24) Drainage of Peritoneal Cavity, Percutaneous Approach (03/20/24) Excision of Cecum, Via Natural or Artificial Opening Endoscopic, Diagnostic (03/02/22) Excision of Rectum, Via Natural or Artificial Opening Endoscopic, Diagnostic (03/02/22) Extirpation of Matter from Bladder, Via Natural or Artificial Opening Endoscopic (08/12/24) Insertion of Infusion Device into Right Femoral Artery, Percutaneous Approach (03/20/24) Insertion of Infusion Device into Superior Vena Cava, Percutaneous Approach (03/20/24) Inspection of Upper Intestinal Tract, Via Natural or Artificial Opening Endoscopic (02/23/24) Introduction of Mineral-based Topical Hemostatic Agent into Upper GI, Via Natural or Artificial Opening Endoscopic, [employer] 6 (08/12/24) Introduction of Other Therapeutic Substance into Upper GI, Via Natural or Artificial Opening Endoscopic (03/20/24) Introduction of Vasopressor into Peripheral Vein, Percutaneous Approach (02/23/24) Occlusion of Esophageal Vein with Extraluminal Device, Via Natural or Artificial Opening Endoscopic (08/12/24) Repair Scalp Skin, External Approach (11/20/21) Respiratory Ventilation, 24-96 Consecutive Hours (03/20/24) Transfusion of Nonautologous Frozen Plasma into Peripheral Vein, Percutaneous Approach (03/20/24) Transfusion of Nonautologous Platelets into Peripheral Vein, Percutaneous Approach (02/23/24) Transfusion of Nonautologous Red Blood Cells into Peripheral Vein, Percutaneous Approach (08/12/24) Ultrasonography of Superior Vena Cava, Guidance (03/20/24) Labs on day of discharge: Laboratory Results - last 24 hr 11/04/24 06:35 WBC 7.5 RBC 2.23 L Hgb 7.3 L Hct 22.1 L MCV 99.1 H MCH 32.7 MCHC 33.0 RDW 16.8 H Plt Count 66 L MPV 11.8 Immature Gran % (Auto) 0.7 H Neut % (Auto) 67.7 Lymph % (Auto) 15.0 L [place] % (Auto) 10.8 Eos % (Auto) 5.0 H Baso % (Auto) 0.8 Lymph # (Auto) 1.1 L [place] # (Auto) 0.8 Eos # (Auto) 0.4 Baso # (Auto) 0.1 Abs Immat Gran (auto) 0.05 H Absolute Neuts (auto) 5.1 Absolute Nucleated RBC 0.000 Nucleated RBC % (auto) 0.0 Sodium 138 Potassium 4.3 Chloride 100 Carbon Dioxide 33 H Anion Gap 9 L BUN 31 H Creatinine 0.70 Estim Creat Clear Calc 120.7 Estimated GFR > 60 Random Glucose 126 H Calcium 8.2 L Phosphorus 3.3 Magnesium 2.0 Total Bilirubin 10.2 H Direct Bilirubin 5.3 H AST 89 H ALT 58 H Alkaline Phosphatase 113 Total Protein 6.7 Albumin 3.6 Discharge Plan Discharge Anticipated Discharge Date/Time: 11/04/24 11:45 Patient Disposition: Home Health Service Discharge Diagnosis: varicela bleed Referrals: Fransisco Soria MD [Primary Care Provider] - 1 Week Discharge Medications: New midodrine 5 mg Tablet 5 mg PO TID Qty: 180 0RF Continued mirtazapine 15 mg tablet 15 mg PO BEDTIME melatonin 10 mg tablet 10 mg PO BEDTIME furosemide 40 mg tablet 40 mg PO DAILY Protocol: Hold for SBP< HOLD for SBP < : 90 potassium chloride 20 mEq Tablet,Er Particles/Crystals 20 meq PO DAILY Qty: 90 0RF sodium bicarbonate 650 mg Tablet 650 mg PO TID Qty: 270 0RF lactulose 20 gram/30 mL Solution 20 g PO DAILY 90 Days Qty: 2700 0RF sucralfate 1 gram Tablet 1 g PO QIDACHS Qty: 360 0RF tamsulosin 0.4 mg capsule 0.4 mg PO BEDTIME nystatin 100,000 unit/gram powder 1 appl topical BID Protocol: Apply to: Apply to: AFFECTED AREA pantoprazole 40 mg Tablet,Delayed Release (Dr/Ec) 40 mg PO BID Discharge Orders: Discharge Order (Routine); Ordered 11/04/24 Ordered By: Gaston Solis Diet: Advance to usual diet Activity on Discharge: As tolerated Stand Alone Forms: Patient Portal Discharge page Print Language: Guatemalan Care Plan Goals: recovery Health Concerns: cirrhosis Plan of Treatment: continue meds as prescribed Assessment: see above
--- NOTE | 2024-11-04 13:01 | P.F2F_ITS ---
Service Date Service Date: 11/04/24 Encounter Date of encounter: 11/04/24 Reasons for Services Signs and symptoms assessed: weakness Reason for [facility]: medication management, medication treatment and teach disease management Reason for occupational therapy: home safety and mobility and therapeutic exercises Homebound: Leaving the home is medically contraindicated at this time without the asist of a device and/or another person due th the listed conditions above and below. Reason homebound: unsteady gait / fall risk Certification: Based on the above findings, I certify that this patient is confined to the home and needs intermittent [facility] care, physical therapy and/or speech therapy, or continues to need occupational therapy. The patient is under my care, and I have initiated the establishment of the plan of care. The patient will be followed by a physician who will periodically review the plan of care. Time Spent With Patient Time: Total time managing care of this patient today ____ minutes.
[2024-11-04 13:35] VITALS: PULSE 103; PULSE 117; PULSE 75; PULSE 77; PULSE 97; O2SAT 82; O2SAT 84; O2SAT 86; O2SAT 89
--- NOTE | 2024-11-04 15:06 | MHC.CM.PN ---
Second IMM 11/04/24, Pt has been medically cleared for DC, he will go home via family transport and have home care services from [facility].
== END 2024-11-04 15:03 | disposition home health service (06) | DRG 432 ==
LOC: HO.ED 10-21 01:54 → HO.EDOVER 10-21 02:39 → HO.ICU 10-21 02:51 → HO.IMC 10-29 12:50
PROVIDERS: Internal Medicine Critical Care Medicine; Internal Medicine Gastroenterology; Nurse Practitioner Family; Physician Assistant Surgical; Registered Nurse Community Health; Admitting Provider Physician Assistant Medical; Emergency Provider Emergency Medicine Emergency Medical Services; PCP Internal Medicine; Visit Provider Internal Medicine
PROC: 0DJ08ZZ Inspection of Upper Intestinal Tract, Via Natural or Artificial Opening Endoscopic (ICD-10-PCS; CPT 43235; principal; 2024-10-21 14:50)
DX: K70.31 Alcoholic cirrhosis of liver with ascites (principal); G93.41 Metabolic encephalopathy; I85.11 Secondary esophageal varices with bleeding; K22.11 Ulcer of esophagus with bleeding; R57.8 Other shock; J96.01 Acute respiratory failure with hypoxia; J69.0 Pneumonitis due to inhalation of food and vomit; N17.0 Acute kidney failure with tubular necrosis; D62 Acute posthemorrhagic anemia; D68.4 Acquired coagulation factor deficiency; J98.11 Atelectasis; K76.6 Portal hypertension; I47.20 Ventricular tachycardia, unspecified; R94.31 Abnormal electrocardiogram [ECG] [EKG]; K76.82 Hepatic encephalopathy; Z66 Do not resuscitate; R31.0 Gross hematuria; R33.9 Retention of urine, unspecified; I10 Essential (primary) hypertension; E78.5 Hyperlipidemia, unspecified; L89.152 Pressure ulcer of sacral region, stage 2; T83.098A Other mechanical complication of other urinary catheter, initial encounter; Y73.8 Miscellaneous gastroenterology and urology devices associated with adverse incidents, not elsewhere classified; K31.89 Other diseases of stomach and duodenum; F10.21 Alcohol dependence, in remission; E87.6 Hypokalemia; Z85.46 Personal history of malignant neoplasm of prostate; Z87.440 Personal history of urinary (tract) infections; Z87.891 Personal history of nicotine dependence; Z79.899 Other long term (current) drug therapy
CPT/HCPCS: 36415; 71045; 74177; 76705; 80048; 80053; 80076; 81001; 82040; 82042; 82140; 82272; 82533; 82803; 82945; 83605; 83615; 83690; 83735; 84100; 84439; 84443; 84478; 85025; 85027; 85610; 85730; 86850; 86900; 86901; 86923; 87086; 89051; 93005; 94002; 94003; 97110; 97162; 97167; 97530; 99285; C1758; J0171; J0330; J0696; J1171; J1940; J2003; J2020; J2250; J2354; J2405; J2470; J2598; J2704; J2765; J3010; J3430; J3475; J3480; P9016; P9017; P9047; P9073; Q9967

== ENCOUNTER → 2024-10-21 00:20 | Outpatient (BNV) | payer MEDICARE, SELFPAY | PROVIDERS: Admitting Provider Physician Assistant Medical; Emergency Provider Emergency Medicine Emergency Medical Services; Visit Provider Radiology Diagnostic Radiology | DX: R31.9 Hematuria, unspecified (principal); R53.1 Weakness | CPT/HCPCS: 71045 ==

== ENCOUNTER 2024-10-21 02:34 | Outpatient (BNV) | payer MEDICARE, SELFPAY | END 2024-10-22 09:40 | PROVIDERS: Admitting Provider Physician Assistant Medical; Emergency Provider Emergency Medicine Emergency Medical Services; PCP Internal Medicine; Visit Provider Radiology Diagnostic Radiology | DX: R91.8 Other nonspecific abnormal finding of lung field (principal) | CPT/HCPCS: 71045 ==

== ENCOUNTER 2024-10-21 02:34 | Outpatient (BNV) | payer MEDICARE, SELFPAY | END 2024-10-22 20:03 | PROVIDERS: Admitting Provider Physician Assistant Medical; Emergency Provider Emergency Medicine Emergency Medical Services; PCP Internal Medicine; Visit Provider Internal Medicine | DX: R94.31 Abnormal electrocardiogram [ECG] [EKG] (principal) | CPT/HCPCS: 93010 ==

== ENCOUNTER 2024-10-21 02:34 | Outpatient (BNV) | payer MEDICARE, SELFPAY | END 2024-10-26 12:32 | PROVIDERS: Admitting Provider Physician Assistant Medical; Emergency Provider Emergency Medicine Emergency Medical Services; PCP Internal Medicine; Visit Provider Internal Medicine | DX: R94.31 Abnormal electrocardiogram [ECG] [EKG] (principal) | CPT/HCPCS: 93010 ==

== ENCOUNTER 2024-10-21 02:34 | Outpatient (BNV) | payer MEDICARE, SELFPAY | END 2024-10-31 10:37 | PROVIDERS: Admitting Provider Physician Assistant Medical; Emergency Provider Emergency Medicine Emergency Medical Services; PCP Internal Medicine; Visit Provider Physician Assistant Surgical | DX: R18.8 Other ascites (principal) | CPT/HCPCS: 76705 ==

== ENCOUNTER 2024-10-21 02:34 | Outpatient (BNV) | payer MEDICARE, SELFPAY | END 2024-10-24 09:13 | PROVIDERS: Admitting Provider Physician Assistant Medical; Emergency Provider Emergency Medicine Emergency Medical Services; PCP Internal Medicine; Visit Provider Internal Medicine | DX: R94.31 Abnormal electrocardiogram [ECG] [EKG] (principal) | CPT/HCPCS: 93010 ==

== ENCOUNTER 2024-10-21 02:34 | Outpatient (BNV) | payer MEDICARE, SELFPAY | END 2024-10-28 08:53 | PROVIDERS: Admitting Provider Physician Assistant Medical; Emergency Provider Emergency Medicine Emergency Medical Services; PCP Internal Medicine; Visit Provider Internal Medicine Cardiovascular Disease | DX: I45.81 Long QT syndrome (principal) | CPT/HCPCS: 93010 ==

== ENCOUNTER → 2024-10-21 02:34 | Outpatient (BNV) | payer MEDICARE, SELFPAY | PROVIDERS: Admitting Provider Physician Assistant Medical; Emergency Provider Emergency Medicine Emergency Medical Services; PCP Internal Medicine; Visit Provider Internal Medicine Gastroenterology | DX: R31.0 Gross hematuria (principal) | CPT/HCPCS: 99232 ==

== ENCOUNTER → 2024-10-21 02:34 | Outpatient (BNV) | payer MEDICARE, SELFPAY | PROVIDERS: Admitting Provider Physician Assistant Medical; Emergency Provider Emergency Medicine Emergency Medical Services; PCP Internal Medicine; Visit Provider Physician Assistant Medical | DX: N17.9 Acute kidney failure, unspecified (principal); J96.01 Acute respiratory failure with hypoxia; I10 Essential (primary) hypertension; E78.5 Hyperlipidemia, unspecified; E87.1 Hypo-osmolality and hyponatremia | CPT/HCPCS: 31500; 36556; 99291 ==

== ENCOUNTER → 2024-10-21 02:34 | Outpatient (BNV) | payer MEDICARE, SELFPAY | PROVIDERS: Admitting Provider Physician Assistant Medical; Emergency Provider Emergency Medicine Emergency Medical Services; PCP Internal Medicine; Visit Provider Internal Medicine | DX: I85.01 Esophageal varices with bleeding (principal); G93.41 Metabolic encephalopathy; D64.9 Anemia, unspecified; K70.30 Alcoholic cirrhosis of liver without ascites | CPT/HCPCS: 99232; 99239; 99499; G0180 ==

== ENCOUNTER → 2024-10-21 02:34 | Outpatient (BNV) | payer MEDICARE, SELFPAY | PROVIDERS: Admitting Provider Physician Assistant Medical; Emergency Provider Emergency Medicine Emergency Medical Services; PCP Internal Medicine; Visit Provider Urology | DX: R33.9 Retention of urine, unspecified (principal); R31.0 Gross hematuria | CPT/HCPCS: 52001; 99223 ==

== ENCOUNTER 2024-11-09 09:54 | Outpatient (REF) | payer MEDICARE, SELFPAY ==
--- OUTSIDE RECORDS SUMMARY | 2024-11-09 09:56 | XMS_ITS | Clinical Summary ---
Author Organization [facility] Facility Address [address] [address] Care Team Providers Care Multicultural Internship Name Role Phone Arben German MD Primary Care Provider [phone] Social History Tobacco Use Types Packs/Day Years Used Date Smoking Tobacco: Never Assessed Sex and Gender Information Value Date Recorded Sex Assigned at Not on file Legal Sex Male 9:05 AM EST Gender Identity Not on file Sexual Orientation Not on file Plan of Treatment Health Maintenance Due Date Last Done Comments Hepatitis B Vaccine (1 of 3 - 19+ 3-dose series) 1984 06/28/2010, 11/18/2009, 10/20/2009 Colorectal Cancer Screening: Annual FOBT 2014 Colorectal Cancer Screening: Colonoscopy 2014 Colorectal Cancer Screening: Sigmoidoscopy 2014 Pneumococcal Vaccine: Pediat rics (0 to 5 Years) and At-Risk Patients (6 to 64 Years) (3 of 3 - PPSV23 or PCV20) 01/01/2018 03/02/2017, 01/01/2013 Influenza Vaccine (#1) 2024 9, 09/03/2012, 08/26/2010 Insurance [facility] MEDICARE [facility] [place] [place] [address] Care Teams Multicultural Internship Relationship Specialty Start Date End Date Arben German MD [address] [place] [address] [address] [place], [place] PCP - General Internal Medicine 11/15/21
--- OUTSIDE RECORDS SUMMARY | 2024-11-09 09:56 | XMS_ITS | Clinical Summary ---
Author Organization Formerly [facility] Address [address] [place] [address] Care Team Providers Care Design Quality Engineer Name Role Phone Fransisco Soria MD Primary Care Provider [phone] Allergies Active Allergy Reactions Criticality Noted Date Comments Fish Oil Unknown/Patient and Family Unable to Define Medium 03/08/2024 Paroxetine Unknown/Patient and Family Unable to Define Medium 03/08/2024 Peanut Oil Anaphylaxis High 07/06/2022 Medications Medication Sig Dispensed Refills Start Date End Date Status furosemide (LASIX) 40 MG tablet Take 1 tablet (40 mg total) by mouth daily. Active melatonin 10 MG capsule Take 1 capsule (10 mg total) by mouth daily. Active FLUoxetine (PROzac) 20 MG capsule Take 1 capsule (20 mg total) by mouth daily. 12/19/2023 Active lactulose (ENULOSE) 10 gm/15 mL solution Take 15 mL (10 g total) by mouth 2 times a day. 03/05/2024 Active mirtazapine (REMERON) 15 MG tablet Take 1 tablet (15 mg total) by mouth nightly. 12/19/2023 Active PANTOprazole (PROTONIX) 40 MG EC tablet Take 1 tablet (40 mg total) by mouth 2 (two) times a day. 12/30/2023 Active propranolol (INDERAL) 10 MG tablet Take 1 tablet (10 mg total) by mouth. 05/01/2023 Active QUEtiapine (SEROquel) 50 MG tablet Take 1 tablet (50 mg total) by mouth 2 times a day. 03/05/2024 Active risperiDONE (RisperDAL) 2 MG tablet Take 1 tablet (2 mg total) by mouth nightly. 12/19/2023 Active spironolactone (ALDACTONE) 100 MG tablet Take 1 tablet (100 mg total) by mouth. 02/09/2024 Active sucralfate (CARAFATE) 1 g tablet Take 1 tablet (1 g total) by mouth 2 (two) times a day before meals. 12/30/2023 Active tamsulosin (FLOMAX) 0.4 MG capsule Take 1 capsule (0.4 mg total) by mouth nightly. 02/09/2024 Active topiramate (TOPAMAX) 200 MG tablet Take 1 tablet (200 mg total) by mouth 2 (two) times a day. 02/13/2024 Active potassium chloride (KLOR-CON) 20 MEQ packetIndications:Upp er GI bleed,Alcoholic cirrhosis of liver with ascites (HCC) Take 1 packet (20 mEq total) by mouth daily. Do not start before March 12, 2024. 3 packet 03/12/2024 Active Active Problems Problem Noted Date Diagnosed Date Upper GI bleed 03/08/2024 Social History Tobacco Use Types Packs/Day Years Used Date Smoking Tobacco: Never Assessed Tobacco Cessation:Counseling Given: Not Answered [facility] Utilities Answer Date Recorded In the past 12 months has [employer], [employer], oil, or water [employer] threatened to shut off services in your home? No 03/11/2024 AUDIT-C Answer Date Recorded Q1: How often do you have a drink containing alcohol? Never 03/08/2024 Q2: How many drinks containi ng alcohol do you have on a typical day when you are drinking? Patient does not drink Q3: How often do you have si x or more drinks on one occasion? Never 03/08/2024 Overall Financial Resource Strain (CARDIA) Answe r Date Recorded How hard is it for you to pa y for the very basics like food, housing, medical care, and heating? Not hard at all 03/11/2024 PHQ-2 Answer Date Recorded PHQ-2 Total Score 0 03/08/2024 Hunger Vital Sign Answer Date Recorded Within the past 12 months, y ou worried that your food would run out before you got the money to buy more. Never true 03/11/20 Within the past 12 months, t he food you bought just didn't last and you didn't have money to get more. Never true 03/11/2024 PRAPARE - Transportation Answer Date Re corded In the past 12 months, has l ack of transportation kept you from medical appointments or from getting medications? No 02/14 In the past 12 months, has l ack of transportation kept you from meetings, work, or from getting things needed for daily living? No 03/11/2024 Housing Stability Vital Sign Answer Albert e Recorded In the last 12 months, was t here a time when you were not able to pay the mortgage or rent on time? No 03/11/2024 In the last 12 months, how many places have you lived? 1 03/11/2024 In the last 12 months, was t here a time when you did not have a steady place to sleep or slept in a long-term (including now)? No 03/11/2024 Sex and Gender Information Value Date Recorded Sex Assigned at Male 03/08/2024 2:09 PM EDT Gender Identity Male 03/08/2024 2:09 PM EDT Sexual Orientation Heterosexual (straight) 03/08 2:09 PM EDT Last Filed Vital Signs Vital Sign Reading Time Taken Comments Blood Pressure 89/54 03/11/2024 10:00 AM EDT Pulse 62 03/11/2024 10:00 AM EDT Temperature 36.7 ??C (98 ??F) 03/11/2024 8:00 AM EDT Respiratory Rate 27 03/11/2024 10:00 AM EDT Oxygen Saturation 100% 03/11/2024 10:00 AM EDT Inhaled Oxygen Concentration - - Weight 98 kg (216 lb 0.8 oz) 03/09/2024 6:00 AM EDT Height 170.2 cm (5' 7 ) 03/08/2024 2:30 PM EDT Body Mass Index 33.84 03/08/2024 2:30 PM EDT Plan of Treatment Health Maintenance Due Date Last Done Comments Hepatitis C Virus Screening 1965 Pneumococcal Vaccine: Pediat jett (0-5 Years) and At-Risk Patients (6 to 49 Years) (1 of 2 - PCV) 1971 HIV Screening 1978 DTaP/Tdap/Td Vaccines (1 - Tdap) 1984 Hepatitis B Vaccines (1 of 3 - 19+ 3-dose series) 1984 Pneumococcal Vaccines 50+ (1 of 2 - PCV) 1984 Colonoscopy 2010 Zoster (Shingles) Vaccine (1 of 2) 2015 Influenza Vaccine 05/16/2024 09/18/2023, , 12/17/2021, Additional history exists COVID-19 Vaccine (5 - 2023-2 5 season) 2024 04/04/2022, 10/28/2021, 03/03/2021, Additional history exists Advance Directives * DNR (Latest Code Status on File) Date Activated Date Inactivated Comments 03/08/2024 7:20 PM DNI Question Answer Comments Decision thoroughly discussed with: Patient * Full Code Date Activated Date Inactivated Comments 03/08/2024 2:37 PM 03/08/2024 7:20 PM Care Teams Design Quality Engineer Relationship Specialty Start Date End Date Fransisco Soria MD [address] [place] [address] PCP - General Internal Medicine 03/08/24
--- OUTSIDE RECORDS SUMMARY | 2024-11-09 09:57 | XMS_ITS | Continuity of Care Document ---
Author Organization [facility] Address [address] [place] [address]- Care Team Providers Care Dumpcart Driver Name Role Phone Estella ROE, Fransisco Palacios Primary Care Physician [phone] [place] [facility] [place](s[place] 09/03/24 - 10/20/24 [facility] [address] [place], [place] [address] Attending Physician: Gage Roca MD Admitting Physician: Gage Roca MD Encounter Type: Pre Office Visit Allergies, Adverse Reactions, Alerts Substance Criticality Severity [...] Given pneumococcal 20-valent conjugate vaccine 05/01/23 Given [id number] 12y+ bivalent booster vax 08/11/22 Recorded SARS-CoV-2 mRNA (rkeevxp-duby-bxzrp) vax 04/04/22 Recorded SARS-CoV-2 (COVID-19) mRNA BNT-162b2 [...] 08/18/07 Give n 1Result Comment: [08/04/2017] [facility] [id number] 2Result Comment: [07/02/2015] GIVEN AT [facility] 3Result Comment: [facility]-[id number] 4Result Comment: [10/18/2018] PT has A NEW BABY ON THE WAY. 5Result Comment: [08/04/2017] [facility] [id number] Medications Constulose 10 gm/15 ml oral syrup [...] 7:39:00 PM EST, Route to Pharmacy Electronically, [facility], Partial fill upon patient [...] 3 Refills, Maintenance, 11/17/23 11:17:00 AM EST, [facility], Partial fill upon patient [...] 10:02:00 AM EDT, Route to Pharmacy Electronically, [facility], Partial fill upon patient [...] 2:49:00 PM EST, Route to Pharmacy Electronically, [facility], Partial fill upon patient [...] neurosurgery;refer physiatry 5steatohepatitis 6sees psychiatry and therapy [facility]; [facility] alec and sophia maria psyche 7in IOP,suicidal attempt 8EGD 2023 9had EGD 10EGD 2023 11prostate cancer father, two uncles,cousin 12labs wnl 13pos mammogram 14EGD 2023 15advised pre diabetic,increased risk diabetes 16EGD 2023 17EGD 2023 18selsun 19counsel [id number] Social History Social History Type Response Tobacco Other: quit Oct 2019 . Sex Sex Representation Male (finding) Patient Care team information Care Team Personnel Name: Jl Apple MD Position: [facility] Physician - Gastroenterology Member Role: Lifetime Consulting Physician Address: [address] [place] [address], [address] [facility] [address] Telecom: Name: Fransisco Soria MD Position: [facility] Physician - Primary Care Member Role: PCP Address: [address] [place] [address]- Telecom: Name: Charli Nassar RN Position: [facility] RN Member Role: Primary Care Nurse Name: Beverly Roach RN Position: [facility] Russell RN Member Role: Primary Care Nurse Name: Naida Nobles RN Position: [facility] RN Member Role: Primary Care Nurse Name: Miles Espinoza RN Position: [facility] RN Member Role: Primary Care Nurse Name: Wagner Cabrera RN Position: [facility] RN Member Role: Primary Care Nurse Name: Wagner Elizabeth RN Position: [facility] RN Member Role: Primary Care Nurse Care Team Related Persons Name: DUYEN RAMIREZ Name: LORENZA GANDHI Name: KARLENE ROBERSON Insurance Providers Guarantor name: JAJA RAMIREZ Health Plan Information #: 1 Payer: [employer] Member Number: [id number] Policy Number: NA Group Number: [id number] Health Plan Information #: 2 Payer: [facility] Member Number: [id number] Policy Number: NA Group Number: NA
--- OUTSIDE RECORDS SUMMARY | 2024-11-09 09:57 | XMS_ITS | Continuity of Care Document ---
Author Organization [facility] Address [address] [place] [address]- Care Team Providers Care Banquet Stewardess Name Role Phone Estella ROE, Fransisco Palacios Primary Care Physician Encounter [facility] Date(s): 09/20/24 - 10/20/24 [facility] [address] [place], [place] [address] Attending Physician: Darius Hernandez Admitting Physician: Darius Hernandez Referring Physician: AdmDarius grullon Encounter Type: Triage Allergies, Adverse Reactions, Alerts [...] Given pneumococcal 20-valent conjugate vaccine 05/01/23 Given [id number] 12y+ bivalent booster vax 08/11/22 Recorded SARS-CoV-2 mRNA (guiupmi-edak-jfpty) vax 04/04/22 Recorded SARS-CoV-2 (COVID-19) mRNA BNT-162b2 [...] (oldterm) 08/18/07 Give n 1Result Comment: [08/04/2017] [facility] [id number] 2Result Comment: [07/02/2015] GIVEN AT [facility] 3Result Comment: [facility]-[id number] 4Result Comment: [10/18/2018] PT has A NEW BABY ON THE WAY. 5Result Comment: [08/04/2017] [facility] [id number] Medications Constulose 10 gm/15 ml oral syrup [...] 7:39:00 PM EST, Route to Pharmacy Electronically, [facility], Partial fill upon patient [...] 3 Refills, Maintenance, 11/17/23 11:17:00 AM EST, [facility], Partial fill upon patient [...] 10:02:00 AM EDT, Route to Pharmacy Electronically, [facility], Partial fill upon patient [...] 2:49:00 PM EST, Route to Pharmacy Electronically, [facility], Partial fill upon patient [...] neurosurgery;refer physiatry 5steatohepatitis 6sees psychiatry and therapy [facility]; airam michael and sophia maria psyche 7in IOP,suicidal attempt 8EGD 2023 9had EGD 10EGD 2023 11prostate cancer father, two uncles,cousin 12labs wnl 13pos mammogram 14EGD 2023 15advised pre diabetic,increased risk diabetes 16EGD 2023 17EGD 2023 18selsun 19counsel [id number] Social History Social History Type Response Tobacco Other: quit Oct 2019 . Sex Sex Representation Male (finding) Patient Care team information Care Team Personnel Name: Jl Apple MD Position: [facility] Physician - Gastroenterology Member Role: Lifetime Consulting Physician Address: [address] [place] [address], [address] [facility] [address] Telecom: Name: Fransisco Soria MD Position: [facility] Physician - Primary Care Member Role: PCP Address: [address] [place] [address]- Telecom: Name: Charli Nassar RN Position: [facility] RN Member Role: Primary Care Nurse Name: Beverly Roach RN Position: [facility] Russell RN Member Role: Primary Care Nurse Name: Naida Nobles RN Position: [facility] RN Member Role: Primary Care Nurse Name: Miles Espinoza RN Position: [facility] RN Member Role: Primary Care Nurse Name: Wagner Cabrera RN Position: [facility] RN Member Role: Primary Care Nurse Name: Wagner Elizabeth RN Position: [facility] RN Member Role: Primary Care Nurse Care Team Related Persons Name: DUYEN RAMIREZ Name: LORENZA GANDHI Name: KARLENE ROBERSON Insurance Providers Guarantor name: JAJA ASHLEY [facility] Plan Information #: 1 Payer: [employer] Member Number: NA Policy Number: NA Group Number: NA
--- OUTSIDE RECORDS SUMMARY | 2024-11-09 09:57 | XMS_ITS | Continuity of Care Document ---
Author Organization [facility] Address [address] [place] [address]- Care Team Providers Care Taxonomy Teacher Name Role Phone Estella ROE, Fransisco Palacios Primary Care Physician Encounter [facility] Date(s): 09/16/24 - 10/16/24 [facility] [address] [place] [address]- Encounter Type: Triage Allergies, Adverse Reactions, Alerts [...] Given pneumococcal 20-valent conjugate vaccine 05/01/23 Given [id number] 12y+ bivalent booster vax 08/11/22 Recorded SARS-CoV-2 mRNA (ygwofsj-shpb-tjsfe) vax 04/04/22 Recorded SARS-CoV-2 (COVID-19) mRNA BNT-162b2 [...] (oldterm) 08/18/07 Give n 1Result Comment: [08/04/2017] [facility] [id number] 2Result Comment: [07/02/2015] GIVEN AT [facility] 3Result Comment: [facility]-[id number] 4Result Comment: [10/18/2018] PT has A NEW BABY ON THE WAY. 5Result Comment: [08/04/2017] [facility] [id number] Medications Constulose 10 gm/15 ml oral syrup [...] 7:39:00 PM EST, Route to Pharmacy Electronically, [facility], Partial fill upon patient request [...] 3 Refills, Maintenance, 11/17/23 11:17:00 AM EST, [facility], Partial fill upon patient request [...] 10:02:00 AM EDT, Route to Pharmacy Electronically, [facility], Partial fill upon patient request [...] 2:49:00 PM EST, Route to Pharmacy Electronically, [facility], Partial fill upon patient request [...] diabetes 16EGD 2023 17EGD 2023 18selsun 19counsel [id number] Social History Social History Type Response Tobacco Other: quit Oct 2019 . Sex Sex Representation Male (finding) Patient Care team information Care Team Personnel Name: Jl Apple MD Position: [facility] Physician - Gastroenterology Member Role: Lifetime Consulting Physician Address: [address] [place] [address], [address] [facility] [place] [address]- Telecom: Name: Fransisco Soria MD Position: [facility] Physician - Primary Care Member Role: PCP Address: [address] [place] [address]- [place] Telecom: Name: Charli Nassar RN Position: S RN Member Role: Primary Care Nurse Name: Beverly Roach RN Position: [facility] Rusesll RN Member Role: Primary Care Nurse Name: [...]
[2024-11-09 10:00] LABS: Appearance Urine Cloudy; Color Urine Dark Yellow; Glucose Urine UA Negative (Negative); Leukocyte Esterase Urine Moderate (2+) (Negative); Nitrite Urine Positive (Negative); PH 5.5 (5.0-9.0); Specific Gravity - Urine 1.025 (1.005-1.025); UMIC TRIGGER UACC YES; Urine Blood Large (3+) (Negative); Urine Ketones Negative (Negative); Urine Protein 30 (1+) mg/dL (Neg-Trace)
[2024-11-09 10:43] LABS: Bacteria Urine Trace (None Seen); RBC Urine >20 /HPF (0-2); UACC Culture Trigger YES
== END 2024-11-09 09:55 | disposition home or self-care (01) ==
LOC: HO.HVNA 09:54
PROVIDERS: Visit Provider Internal Medicine
DX: R31.9 Hematuria, unspecified (principal)
CPT/HCPCS: 81001; 81003; 87086

== ENCOUNTER 2024-11-12 07:10 | Emergency (ER) | payer MEDICARE, SELFPAY ==
--- NOTE | ~2024-11-12 | XR_ITS ---
EXAMINATION: XR CHEST CLINICAL INFORMATION: sob COMPARISON: 10/22/2024, 03/21/2025, 08/12/2024. TECHNIQUE: AP portable view of the chest was obtained. FINDINGS: There is cardiac enlargement. There is vascular congestion in the hilar regions. Mediastinal contours are normal. There are low lung volumes, with diffuse increased hazy interstitial markings throughout both lungs, small pleural effusions bilaterally, and basilar opacities likely atelectasis. Chronic scarring present in the left base. No pneumothorax. No acute bony or soft tissue abnormalities. XR/XR chest 1V IMPRESSION: 1. Cardiomegaly, with interstitial pulmonary edema suspected, small bilateral effusions, and basilar parenchymal opacities likely atelectasis. Cannot exclude pneumonia given the appearance. Electronically signed by: Yehuda Haddad MD 11/12/2024 09:59 AM [facility] [place]
[2024-11-12 07:30] VITALS: BP 120/52; PULSE 64; RESP 22; TEMP 36.6; O2SAT 95; BMI 31.6
--- NOTE | 2024-11-12 07:37 | ECG_ITS ---
Test Reason : dyspnea Blood Pressure : */* mmHG Vent. Rate : 58 BPM Atrial Rate : 178 BPM P-R Int : 164 ms QRS Dur : 110 ms QT Int : 514 ms P-R-T Axes : 8 -10 25 degrees QTcB Int : 504 ms Normal sinus rhythm Normal ECG When compared with ECG of 28-Oct-2024 09:15, No significant changes seen Referred By: Kathy Carvajal Electronically Signed By: COREEN BRADEN
--- OUTSIDE RECORDS SUMMARY | 2024-11-12 07:50 | XMS_ITS | Clinical Summary ---
Author Organization [facility] Address [address] [place] [address] Care Team Providers Care Rn Clinical Resource Name Role Phone Fransisco Soria MD Primary Care Provider [phone] Allergies Active Allergy Reactions Criticality Noted Date [...] Never Assessed Tobacco Cessation:Counseling Given: Not Answered [facility] Utilities Answer Date Recorded In the past 12 months has [employer], [employer], oil, or water [employer] threatened to shut off services in your [...] place to sleep or slept in a halfway (including now)? No 03/11/2024 Sex and Gender [...] 2:37 PM 03/08/2024 7:20 PM Care Teams Rn Clinical Resource Relationship Specialty Start Date End Date Fransisco Soria MD [address] [place] [address] PCP - General Internal Medicine 03/08/24
--- OUTSIDE RECORDS SUMMARY | 2024-11-12 07:50 | XMS_ITS | Clinical Summary ---
Author Organization [facility] Address [address] [address] Care Team Providers Care Certifed Refrigeration Operator Name Role Phone Arben German MD Primary Care Provider [phone] Social History Tobacco Use Types Packs/Day Years [...] Vaccine (#1) 2024 9, 09/03/2012, 08/26/2010 Insurance [facility] MEDICARE [facility] MEDICARE Care Teams Certifed Refrigeration Operator Relationship Specialty Start Date End Date Arben German MD [address] [place] [address] [address] [place], [place] PCP - General Internal Medicine 11/15/21
--- NOTE | 2024-11-12 07:55 | ED_ITS ---
HPI - Anxiety General Chief Complaint: Anxiety Stated Complaint: SOB PER EMS Time Seen by Provider: 11/12/24 07:38 History of Present Illness HPI narrative: Patient is a 59-year-old male with a history of anxiety history of panic attacks history of liver cirrhosis history of esophageal varices. Presented today with having an possible anxiety attack. Patient felt suddenly short of breath. Lot of stressors in his life was just discharged from the hospital November 04. Patient denies any coughing congestion upper respiratory symptoms. Baseline prescribed oxygen in the last visit. Patient denies any chest pain no diaphoresis. Suddenly felt short of breath. When paramedics arrived patient was told to breathe through his nose XL through his mouth. Over. If proximally 10 minutes symptoms improved. Patient currently felt approximately baseline. No diaphoresis. Patient's baseline is on 2 L of oxygen. Related Data Home Medications ?Medication ?Instructions ?Recorded ?Confirmed melatonin 10 mg tablet 10 mg PO BEDTIME Insomnia 11/13/23 10/21/24 mirtazapine 15 mg tablet 15 mg PO BEDTIME 11/13/23 10/21/24 tamsulosin 0.4 mg capsule 0.4 mg PO BEDTIME 07/23/24 10/21/24 furosemide 40 mg tablet 40 mg PO DAILY 08/24/24 10/21/24 nystatin 100,000 unit/gram topical 1 appl topical BID 10/21/24 10/21/24 powder pantoprazole 40 mg tablet,delayed 40 mg PO BID 10/21/24 10/21/24 release Previous Rx's ?Medication ?Instructions ?Recorded lactulose 20 gram/30 mL oral 20 g (30 mL) PO DAILY 90 days 08/25/24 solution #2,700 mL potassium chloride 20 mEq 20 meq PO DAILY #90 tabs 08/25/24 tablet,extended release(part/cryst) sodium bicarbonate 650 mg tablet 650 mg PO TID #270 tabs 08/25/24 sucralfate 1 gram tablet 1 g PO QIDACHS #360 tabs 08/25/24 midodrine 5 mg tablet 5 mg PO TID #180 tabs 11/04/24 Allergies Allergy/AdvReac Type Severity Reaction Status Date / Time Fish Containing Products Allergy Severe THROAT Verified 11/12/24 07:31 SWELLING peanut [Peanut] Allergy Severe THROAT Verified 11/12/24 07:31 SWELLING Review of Systems 2 Review of Systems: Positive weakness generalized malaise Positive jaundice positive leg swelling PMFSH Past Medical History Attestation statement: The following information was validated with the patient. Medical History Gross hematuria Urethral obstruction Acute urinary retention Alcoholic hepatitis Thrombocytopenia Nausea & vomiting Hyponatremia Acute hypokalemia Alcohol dependence Ascites Congestive heart failure Anemia ETOH abuse Alcoholic cirrhosis PTSD (post-traumatic stress disorder) Hyponatremia Acute hyponatremia NATHANIEL (acute kidney injury) Acute metabolic encephalopathy Falls Alcoholic cirrhosis of liver with ascites Prostate cancer Depression Hyperlipidemia Hypertension Anxiety Social History Social History Household Members: Spouse Household Members Other:: [place] Housing: House Do you presently have visiting nurse or other home services: Yes Unable to assess alcohol history related to: Refusing to respond Alcohol intake: former Comment: bilateral wrist restraints for airway safety Patient Tobacco Use Status: Former Tobacco user Tobacco use type: Cigarette Cigarette Packs Per Day: 3 Cigarettes Per Day: 3 Years Smoked: 25 e-Cigarette/Vaping Use: Never Used Second Hand Smoke Exposure: No Substance Use Type: Marijuana Advance Directives: Yes Advance Directives on File: Yes Advance Directives Date on File: 04/03/24 service: No Current occupational status: disabled Physical Exam 2 Vital Signs: Vital Signs: Last Vital Signs Temp 98 F 11/12/24 07:30 Pulse 65 11/12/24 09:35 Resp 20 11/12/24 09:35 BP 120/50 L 11/12/24 09:35 Pulse Ox 95 11/12/24 09:35 O2 Del Method Nasal Cannula 11/12/24 09:35 Oxygen Flow Rate 2 11/12/24 07:30 BMI result Body Mass Index 31.6 Appearance: Alert. Oriented X3. No acute distress. Eyes: Pupils equal, round and reactive to light. ENT: Pharynx normal. Neck: Normal inspection. Neck supple. No lymph nodes noted. No crepitus CVS: Normal heart rate and rhythm. Pulses normal. Normal S1 and S2 Respiratory: No respiratory distress. Breath sounds normal. No Wheezing. No rales Abdomen: Soft and nontender. Positive enlarged liver at least 4 fingerbreadths below costal margin Skin: Skin warm and dry. Positive jaundice Extremities 2+ lower extremity edema. Neurovascular intact to all extremities. No Lacerations. No Rash Neuro: Oriented X 3. No motor deficit. No sensory deficit. Moving all extermities. No slurred speech Medical Decision Making Medical Decision Making [facility] Narrative: Patient is baseline is on 2 L of oxygen at home. Chest x-ray is suggestive of some level of failure. Bed patient x-ray appears chronic. He is sleeping in no acute distress on the 2 L. has multitude of chronic diseases. Including liver cirrhosis. History of esophageal varices history of GI bleed patient's hemoglobin is approximately baseline for him. It was 7.5. COVID flu RSV were all negative. BNP mildly elevated but has a history of in the 700s in the past. Patient's troponin is negative. Alcohol is negative. Had a discussion with patient. Considering patient's condition wants to go home he does not want to stay in the hospital. He understood his long-term prognosis. Currently in stable condition. Differential Diagnosis Differential Diagnoses: The differential diagnosis associated with the presentation includes Congestive heart failure, pneumonia, COPD Admission/Observation Consideration of admission/observation: Escalation of care including admission/observation considered Lab Data [facility] Lab Attestation statement: I reviewed the patient's lab results. 11/12/24 08:23 11/12/24 08:24 Labs: Lab Results 11/12/24 11/12/24 11/12/24 Range/Units 08:23 08:24 08:52 WBC 6.3 (4.8-10.8) X10*3/uL RBC 2.33 L (4.60-5.80) X10*6/uL Hgb 7.5 L (14.0-18.0) g/dl Hct 23.0 L (42.0-52.0) % MCV 98.7 H (80.0-98.0) fL MCH 32.2 (27.0-33.0) pg MCHC 32.6 (31.0-36.0) g/dl RDW 18.6 H (11.0-16.0) % Plt Count 162 D (160-400) X10*3/uL MPV 10.3 (9.4-12.4) fL Immature Gran % (Auto) 0.5 H (0.0-0.4) % Neut % (Auto) 70.0 (45-73) % Lymph % (Auto) 15.2 L (20-40) % Barbour % (Auto) 8.7 (2-11) % Eos % (Auto) 4.6 H (0-4) % Baso % (Auto) 1.0 (0-2) % Lymph # (Auto) 1.0 L (1.2-4.9) X10*3/uL Barbour # (Auto) 0.6 (0.1-1.2) X10*3/uL Eos # (Auto) 0.3 (0.0-0.4) X10*3/uL Baso # (Auto) 0.1 (0.0-0.2) X10*3/uL Abs Immat Gran (auto) 0.03 (0.00-0.03) X10*3/uL Absolute Neuts (auto) 4.4 (2.0-8.3) x10*3/uL Absolute Nucleated RBC 0.000 (0.0-0.012) X10*3/uL Nucleated RBC % (auto) 0.0 (0.0-0.2) /100WBC PT 22.0 H D (10.9-12.4) SEC INR 1.9 H (0.9-1.1) Sodium 139 (135-145) mmol/L Potassium 3.4 D (3.3-5.1) mmol/L Chloride 104 (96-108) mmol/L Carbon Dioxide 28 (22-29) mmol/L Anion Gap 10 L (12-20) BUN 9 (9-16) mg/dL Creatinine 0.64 (0.5-1.4) mg/dL Estim Creat Clear Calc 134.0 Estimated GFR > 60 Random Glucose 94 (60-115) mg/dL Calcium 8.7 D (8.4-10.2) mg/dL Total Bilirubin 10.9 H (0.0-1.0) mg/dL Direct Bilirubin 5.6 H (0.0-0.5) mg/dL AST 68 H (5-37) U/L ALT 42 H (0-40) U/L Alkaline Phosphatase 162 H (39-117) U/L Troponin I High Sens < 2.7 (<3.5-35.0) ng/L B-Natriuretic Peptide 745 H (<100) pg/mL Total Protein 7.5 (6.5-8.0) g/dL Albumin 3.3 L (3.5-5.0) g/dL Ethyl Alcohol < 10 mg/dL Influenza Type A (PCR) NEGATIVE (Negative) Influenza Type B (PCR) NEGATIVE (Negative) RSV RNA Qual (PCR) NEGATIVE (Negative) SARS-CoV-2 RNA (RT-PCR) NEGATIVE (Negative) Independent Interpretation I performed an independent interpretation of an: EKG (My interpretation patient's EKG showed a sinus rhythm heart rate is 60 DC QRS QTC normal no acute ST segment elevation.) and Plain X-Ray (Chest x-ray showed bilateral infiltrate. Appears chronic.) Radiology Impression Discussion of test interpretation with radiology: I have reviewed the radiologist's reading. External Record Review External record reviewed: Inpatient record Patient's inpatient records reviewed including most recent discharge record most recent ICU record Chronic Conditions Liver cirrhosis. History of esophageal varices Discharge Plan Discharge Clinical Impression: Anxiety Patient Disposition: Home, Self-Care Prescriptions: No Action mirtazapine 15 mg tablet 15 mg PO BEDTIME melatonin 10 mg tablet 10 mg PO BEDTIME furosemide 40 mg tablet 40 mg PO DAILY Protocol: Hold for SBP< HOLD for SBP < : 90 potassium chloride 20 mEq Tablet,Er Particles/Crystals 20 meq PO DAILY Qty: 90 0RF sodium bicarbonate 650 mg Tablet 650 mg PO TID Qty: 270 0RF lactulose 20 gram/30 mL Solution 20 g PO DAILY 90 Days Qty: 2700 0RF sucralfate 1 gram Tablet 1 g PO QIDACHS Qty: 360 0RF tamsulosin 0.4 mg capsule 0.4 mg PO BEDTIME nystatin 100,000 unit/gram powder 1 appl topical BID Protocol: Apply to: Apply to: AFFECTED AREA pantoprazole 40 mg Tablet,Delayed Release (Dr/Ec) 40 mg PO BID midodrine 5 mg Tablet 5 mg PO TID Qty: 180 0RF Print Language: Serbian
[2024-11-12 08:27] LABS: MANUAL DIFF FLAG NO
[2024-11-12 08:30] LABS: Basophils Absolute Auto 0.1 X10*3/uL (0.0-0.2); Eosinophils Absolute Auto 0.3 X10*3/uL (0.0-0.4); Eosinophils Percent Auto 4.6 % (0-4); Hemoglobin 7.5 g/dl (14.0-18.0); Imm Gran Abs Auto 0.03 X10*3/uL (0.00-0.03); Imm Gran Pct Auto 0.5 % (0.0-0.4); Lymphocytes Percent Auto 15.2 % (20-40); Mean Corpuscular HGB Conc 32.6 g/dl (31.0-36.0); Mean Corpuscular Hemoglobin 32.2 pg (27.0-33.0); Mean Corpuscular Volume 98.7 fL (80.0-98.0); Mean Platelet Volume 10.3 fL (9.4-12.4); Monocytes Absolute Auto 0.6 X10*3/uL (0.1-1.2); Monocytes Percent Auto 8.7 % (2-11); Neutrophils Absolute Auto 4.4 x10*3/uL (2.0-8.3); Platelet Count 162 X10*3/uL (160-400); Red Blood Count 2.33 X10*6/uL (4.60-5.80); Red Cell Distribution Width 18.6 % (11.0-16.0); White Blood Count 6.3 X10*3/uL (4.8-10.8)
[2024-11-12 08:34] LABS: INTERNATIONAL NORM RATIO 1.9 (0.9-1.1)
[2024-11-12 08:46] LABS: Ethanol < 10 mg/dL
[2024-11-12 08:53] LABS: B Type Natriuretic Peptide 745 pg/mL (<100)
[2024-11-12 08:58] LABS: Troponin-I High Sensitivity < 2.7 ng/L (<3.5-35.0)
[2024-11-12 09:03] LABS: Alanine Aminotransferase 42 U/L (0-40); Albumin Level 3.3 g/dL (3.5-5.0); Alkaline Phosphatase 162 U/L (39-117); Anion Gap 10 (12-20); Aspartate Amino Transferase 68 U/L (5-37); Bilirubin Direct 5.6 mg/dL (0.0-0.5); Bilirubin Total 10.9 mg/dL (0.0-1.0); Blood Urea Nitrogen 9 mg/dL (9-16); Calcium 8.7 mg/dL (8.4-10.2); Carbon Dioxide 28 mmol/L (22-29); Chloride 104 mmol/L (96-108); Estimated Glomerular Filt Rate > 60; Glucose Random 94 mg/dL (60-115); Potassium 3.4 mmol/L (3.3-5.1); Sodium 139 mmol/L (135-145); Total Protein 7.5 g/dL (6.5-8.0)
[2024-11-12 09:35] VITALS: BP 120/50; PULSE 65; RESP 20; O2SAT 95
[2024-11-12 09:49] LABS: Influenza A PCR NEGATIVE (Negative); Influenza B PCR NEGATIVE (Negative); Resp Syncy Virus RNA Qual PCR NEGATIVE (Negative); SARS COV2 PCR INHOUSE NEGATIVE (Negative)
[2024-11-12 10:31] VITALS: BP 114/44; PULSE 70; RESP 20; TEMP 36.6; O2SAT 97
== END 2024-11-12 11:20 | disposition home or self-care (01) ==
PROVIDERS: Emergency Provider Emergency Medicine Emergency Medical Services; PCP Internal Medicine
DX: F41.9 Anxiety disorder, unspecified (principal); R06.02 Shortness of breath; R60.0 Localized edema; I11.0 Hypertensive heart disease with heart failure; I50.9 Heart failure, unspecified; E78.5 Hyperlipidemia, unspecified; K70.31 Alcoholic cirrhosis of liver with ascites; Z99.81 Dependence on supplemental oxygen; Z87.891 Personal history of nicotine dependence; Z85.46 Personal history of malignant neoplasm of prostate; Z03.818 Encounter for observation for suspected exposure to other biological agents ruled out; Z79.899 Other long term (current) drug therapy
CPT/HCPCS: 0241U; 36415; 71045; 80053; 80307; 82248; 83880; 84484; 85025; 85610; 93005; 99283

== ENCOUNTER → 2024-11-12 07:37 | Outpatient (BNV) | payer MEDICARE, SELFPAY | PROVIDERS: Emergency Provider Emergency Medicine Emergency Medical Services; PCP Internal Medicine; Visit Provider Internal Medicine | DX: R06.00 Dyspnea, unspecified (principal) | CPT/HCPCS: 93010 ==

== ENCOUNTER → 2024-11-12 08:16 | Outpatient (BNV) | payer MEDICARE, SELFPAY | PROVIDERS: Emergency Provider Emergency Medicine Emergency Medical Services; PCP Internal Medicine; Visit Provider Radiology Diagnostic Radiology | DX: I51.7 Cardiomegaly (principal); J90 Pleural effusion, not elsewhere classified | CPT/HCPCS: 71045 ==